=== PATIENT | female | born 1970 | race Two or more races ===

== ENCOUNTER 2024-01-12 07:38 | Inpatient (IN) | payer MEDICAID, SELFPAY ==
[2024-01-12] VITALS (11 sets, daily range): BP systolic 90–116; BP diastolic 55–67; PULSE 64–73; RESP 14–100; TEMP 36.1–36.8; O2SAT 97–100; BMI 30.2; BMI 32.1
--- NOTE | 2024-01-12 07:51 | PD.EDABDPN ---
ED Abdominal Pain RME/HPI General Chief Complaint: Abdominal Pain Stated complaint: VOMITING BLOOD SINCE AM Time seen by provider: 01/12/24 07:51 Arrival date/time: 01/12/24 07:38 Limitations: no limitations RME / HPI RME / HPI narrative: History of Present Illness (HPI): The patient presents with abdominal pain for the past two days. The patient has vomited five times, and the vomit contains blood. The patient has a history of upper gastrointestinal bleeding (UGIB). The mother reports seeing blood in the patient's stools as well. The mother brought the patient's clothes, which are stained with vomitus that is frankly bloody. The patient has a history of esophageal varices and has undergone banding of the varices in the past. Related Data Home Medications ?Medication ?Instructions ?Recorded ?Confirmed ergocalciferol (vitamin D2) 1,250 50,000 unit PO QWEEK 09/15/23 11/25/23 mcg (50,000 unit) capsule lidocaine HCl 2 % mucosal solution 5 ml PO 6 TIMES DAILY 09/15/23 11/25/23 methocarbamol 750 mg tablet 750 mg PO 2XD 09/15/23 11/25/23 tramadol 50 mg tablet 50 mg PO Q4HR 10/20/23 11/25/23 hydrocodone 5 mg-acetaminophen 325 1 tab PO Q4H PRN Pain (Scale Score 11/14/23 11/25/23 mg tablet 7-10) Previous Rx's ?Medication ?Instructions ?Recorded phenylephrine 0.25 %-pramoxine 1 1 applic MI BID #28 grams 09/19/23 %-glycerin-wh.petrolatum rectal cream (Hemorrhoidal Cream) furosemide 40 mg tablet 40 mg PO QAM #30 tabs 10/15/23 pantoprazole 40 mg tablet,delayed 40 mg PO QDAY #30 tabs 10/15/23 release foam bandage 5 X 5 (Biatain #10 ea 10/25/23 Adhesive Foam Dressing) lactulose 20 gram/30 mL oral 20 g (30 mL) PO TID #3,000 mL 10/25/23 solution hydrocortisone acetate 25 mg 25 mg MI QDAY #7 ea 11/02/23 rectal suppository (Anusol-HC) ondansetron 4 mg disintegrating 4 mg PO Q8H #14 tabs 12/21/23 tablet Allergies Allergy/AdvReac Type Severity Reaction Status Date / Time latex Allergy Severe Hives Verified 01/12/24 08:50 Review of Systems Review of Systems Systems Reviewed: All systems reviewed, normal except as documented ED Exam General Limitations: Present no limitations General appearance: Present alert and in no apparent distress Head Head exam: Present atraumatic Eye Eye exam: Present normal appearance ENT ENT exam: Present normal exam Neck Neck exam: Present normal inspection Chest Chest inspection: Present normal inspection Respiratory Respiratory exam: Present normal lung sounds bilaterally Cardiovascular Cardiovascular exam: Present regular rate and normal rhythm Abdominal Exam Abdominal exam: Present soft and normal bowel sounds Abdominal tenderness: Present epigastrium and mild Rectal Exam Rectal exam: Present deferred Back Exam Back exam: Present normal inspection Neurological Exam Neurological exam: Present CN II-XII intact Skin Skin exam: Present warm and dry Course Quality Measures none Orders Category Date Time Status COVID-19 Screening Questionnaire NOW Care 01/12/24 11:[address] Screening NOW Care 01/12/24 07:56 Active Decision to Admit X1 Care 01/12/24 11:24 Active Insert IV STAT Care 01/12/24 07:54 Active Consult to Gastroenterology Stat Cons 01/12/24 11:[address] abdomen w con Stat Exams 01/12/24 07:56 Taken Ammonia Stat Lab 01/12/24 08:08 Completed CBC Stat Lab 01/12/24 08:08 Results Comprehensive Metabolic Panel Stat Lab 01/12/24 08:08 Completed HCG,Qualitative Serum Stat Lab 01/12/24 08:08 Completed Lipase Stat Lab 01/12/24 08:08 Completed Magnesium Stat Lab 01/12/24 08:08 Completed Prothrombin Time with INR Stat Lab 01/12/24 08:08 Completed Troponin I Stat Lab 01/12/24 08:08 Completed Morphine Inj Med 01/12/24 07:56 Discontinued 5 mg IV X1 ONE Octreotide Acet Inj [SandoSTATIN Inj] Med 01/12/24 07:54 Discontinued 50 mcg IV X1 ONE Ondansetron Inj [Zofran Inj] Med 01/12/24 07:55 Discontinued 4 mg IV X1 ONE Pantoprazole Inj [Protonix Inj] Med 01/12/24 07:54 Discontinued 40 mg IVP X1 ONE Vital Signs Vital signs: Vital Signs Temperature 98.2 F 01/12/24 07:53 Pulse Rate 73 01/12/24 07:53 Respiratory Rate 14 01/12/24 07:53 Blood Pressure 116/67 01/12/24 07:53 Pulse Oximetry (%) 100 01/12/24 07:53 Oxygen Delivery Method Room Air 01/12/24 07:53 Abdominal Pain MDM MDM Narrative MDM Narrative:: Patient had no episodes of emesis here in the emergency department. Her hemoglobin is 11.4. Medically and clinically is stable. Does not appear to be actively bleeding at this time. She was discussed with Dr. Culp, who recommends admission as well as octreotide drip. Patient will have endoscopic evaluation tomorrow. The patient was also discussed with the hospitalist team who will admit the patient Patient data External records reviewed:: [facility] previous records Clinical information provided by:: patient and family Social determinants that could affect healthcare access:: none Patient has the following chronic illnesses:: Portal hypertension and esophageal varices How is presenting disease/condition affected by chronic disease/condition?: caused by Evaluation data The following diagnostics were reviewed and interpreted by me:: lab results and radiology exam(s) Lab and/or radiology exams considered but not ordered:: See above Interpretation Summary: See above Medications / Prescriptions Medications or Prescriptions considered but not ordered:: Not applicable Medication administrations:: Medication Administration History Discontinued Medications Morphine Sulfate (Morphine Sulf Inj 10 Mg/Ml Vial) 5 mg IV X1 ONE Stop: 01/12/24 07:57 Last Admin: 01/12/24 08:28 Dose: 5 mg Documented By: EF Octreotide Acetate (Octreotide Acet Inj 50 Mcg/Ml Vial) 50 mcg IV X1 ONE Stop: 01/12/24 07:55 Last Admin: 01/12/24 08:28 Dose: 50 mcg Documented By: EF Ondansetron HCl (Ondansetron Inj 2 Mg/Ml Inj 2 Ml) 4 mg IV X1 ONE Stop: 01/12/24 07:56 Last Admin: 01/12/24 08:28 Dose: 4 mg Documented By: EF Pantoprazole Sodium (Pantoprazole Inj 40 Mg Vial) 40 mg IVP X1 ONE Stop: 01/12/24 07:55 Last Admin: 01/12/24 08:55 Dose: 40 mg Documented By: EF As noted Consultations Consultation(s) initiated? (list below): Yes Consultation #1 (Physician, Specialty, Details): Dr. Culp and hospitalist Diagnosis Differential diagnosis abdominal pain: abdominal pain and gastroenteritis Most likely diagnosis given after review of the tests above:: Upper GI bleed Admission Indicated Admission indicated?: indicated Admission Request Was there a request for admission?: Yes Admission Attestation Admission request attestation: Discussed case with [] from Hospitalist service regarding admission. Discussed patients ED course, exam findings, labs, and radiology results. The Hospitalist [agrees,declines] to accept the patient for admission. Disposition Plan Disposition Plan: Admit Critical Care Time Critical Care Time Critical Care Time: Yes Total Critical Care Time (min.): 35 Attestation: Patient is stable for admission Discharge Plan Plan Patient Disposition: Admit Acute Care w/in Hospital Patient condition on transfer: Stable Prescriptions/Referrals Prescriptions/Med Rec: No Action furosemide 40 mg tablet 40 mg PO QAM Qty: 30 0RF pantoprazole 40 mg tablet,delayed release (DR/EC) 40 mg PO QDAY Qty: 30 0RF ondansetron 4 mg tablet,disintegrating 4 mg PO Q8H Qty: 14 0RF methocarbamol 750 mg tablet 750 mg PO 2XD Patient Comments: TAKE 1 TABLET BY MOUTH TWICE A DAY lidocaine HCl 2 % solution 5 ml PO 6 TIMES DAILY Patient Comments: SWISH AND SPIT OUT 5ML BY MOUTH 6 TIMES A DAY NEEDED ergocalciferol (vitamin D2) 1,250 mcg (50,000 unit) capsule 50,000 unit PO QWEEK Patient Comments: TAKE 1 CAPSULE BY MOUTH ONCE A WEEK Hemorrhoidal Cream 0.25-1 % cream 1 applic MI BID Qty: 28 0RF tramadol 50 mg tablet 50 mg PO Q4HR Patient Comments: TAKE 1 TABLET BY MOUTH EVERY 4 HOURS NEEDED FOR MODERATE PAIN 4-6 FOR 5 DAYS lactulose 20 gram/30 mL solution 20 g PO TID Qty: 3000 0RF (DME) Biatain Adhesive Foam Dressing 5 X 5 bandage See Rx Instructions .Route Qty: 10 0RF Rx Instructions: As directed hydrocortisone acetate [Anusol-HC] 25 mg suppository 25 mg MI QDAY Qty: 7 0RF Rx Instructions: take suppository at night hydrocodone-acetaminophen 5-325 mg Tablet 1 tab PO Q4H PRN (Reason: Pain (Scale Score 7-10)) Referrals: Stacy Graff FNP [Primary Care Provider] - In 1 week Problem List Clinical Impression: Acute upper GI bleed Patient/Caregiver Discharge Instructions Print Language: Algerian Stand Alone Forms: [facility] Award Info., Patient Portal Info Letter
--- NOTE | 2024-01-12 07:56 | XR_ITS ---
Examination: CT abdomen with intravenous contrast. Coronal 2-D reconstructions. Sagittal 2-D reconstructions. Date and time of exam:January 12, 2024 0857 hrs. Comparison December 07, 2023 Indications: Liver failure diagnosis with generalized abdominal pain today CTDI: vol (mGy): 9.39 DLP: (mGycm): 342 Technique: Axial images of the abdomen have been obtained, 3 mm slice thickness, 60 cc [id number] 2-D sagittal coronal reconstructions Low dose protocols were performed. One or more of the following dose reduction techniques were used; automated exposure control, adjustment of the mA and/or KV according to patient size, use of iterative reconstruction technique. Findings: Cirrhosis, liver nodular in contour Esophageal varices Prominent splenomegaly Portosystemic collateral vessels medial to the spleen No gallstones Tiny bilateral renal calculi Posterior right renal cyst Minimal right hydronephrosis, 7 mm calculus in the right renal pelvis No bowel obstruction Small fat-containing umbilical hernia Impression: Cirrhosis No bowel obstruction or free air Esophageal varices 7 mm calculus in the right renal pelvis
[2024-01-12 08:17] LABS: Basophils # (Auto) 0.1 Thou/mm3 (0.0-0.2); Basophils % (Auto) 1 % (0-2.5); Eosinophils # (Auto) 0.2 Thou/mm3 (0.0-0.5); Eosinophils % (Auto) 4 % (0-10); Hematocrit 34.4 % (36.0-46.0); Hemoglobin 11.5 g/dL (12.0-16.0); Immature Granulocytes % (Auto) 0 % (0-0); Immature Granulocytes Auto 0.02 Thou/mm3 (0.00-0.00); Lymphocytes # (Auto) 1.2 Thou/mm3 (1.0-4.8); Lymphocytes % (Auto) 21 % (10-50); Mean Corpuscular HGB Conc 33.4 g/dl (31.0-37.0); Mean Corpuscular Hemoglobin 32.7 pg (25.0-35.0); Mean Corpuscular Volume 98 fL (80-100); Monocytes # (Auto) 0.5 Thou/mm3 (0.0-0.8); Monocytes % (Auto) 9 % (0-12); Neutrophils # (Auto) 3.9 Thou/mm3 (1.8-7.7); Neutrophils % (Auto) 66 % (37-80); Nucleated Red Blood Cell % 0 /100 WBC (0); RDW Standard Deviation 84.1 fL (36.4-46.3); Red Blood Count 3.52 Miln/mm3 (4.00-5.20); White Blood Count 5.9 Thou/mm3 (3.6-11.0)
[2024-01-12 08:22] LABS: Platelet Count 65 Thou/mm3 (140-440)
[2024-01-12] MEDS: OCTREOTIDE ACET INJ 50 mCg/ML VIAL IV (08:28)
[2024-01-12] MEDS: MORPHINE SULF INJ 10 MG/ML VIAL 5 MG IV (08:28)
[2024-01-12] MEDS: ONDANSETRON INJ 2 MG/ML INJ 2 ML 4 MG IV (08:28)
[2024-01-12 08:34] LABS: HCG,Qualitative Serum Negative
[2024-01-12 08:40] LABS: Ammonia 120 uMol/L (11-32)
[2024-01-12 08:55] LABS: Alanine Aminotransferase 30 U/L (10-49); Albumin, Serum 3.3 gm/dL (3.5-5.0); Albumin/Globulin Ratio 0.8 (1.2-2.2); Alkaline Phosphatase 277 U/L (46-116); Anion Gap 6 (7-16); Aspartate Amino Transferase 57 U/L (0-34); BUN/Creatinine Ratio 18 Ratio (12-20); Bilirubin,Total 5.2 mg/dL (0.3-1.2); Blood Urea Nitrogen 24 mg/dL (9-23); Calcium 9.2 mg/dL (8.3-10.6); Calcium (Corrected) 9.8 mg/dL (8.5-10.1); Chloride 106 mMol/L (98-107); Creatinine (Component) 1.3 mg/dL (0.6-1.3); Estimated Creatinine Clearance 42.5 mL/min (>60); Globulin 4.2 gm/dL (2.3-3.5); Glucose 115 mg/dL (74-106); Lipase 47 U/L (12-53); Magnesium 2.5 mg/dL (1.6-2.6); Osmolality,Calculated 282 (275-295); Potassium 4.7 mMol/L (3.4-5.1); Sodium 139 mMol/L (136-145); Total Protein 7.5 gm/dL (5.7-8.2); Troponin I < 0.020 ng/mL (0.0-0.045); eGFR 49 See Note
[2024-01-12] MEDS: PANTOPRAZOLE INJ 40 MG VIAL IVP ×2 (08:55→22:40)
[2024-01-12 09:14] LABS: INR 1.5 (0.9-1.3); Prothrombin Time 16.2 Seconds (9.0-12.2)
--- NOTE | 2024-01-12 12:00 | PC.CC ---
Patient is a 53 year-old female BIB-Family for Vomiting Blood. ARAMWOfe made [id number] contact with patient. ASW introduced self, role, and reason for visit. Patient appeared alert and oriented to self, location, and situation. At bedside was patient's mother Gemma Knight whom patient provided consent to remain in room during initial assessment. Patient was pleasant and engaged in initial assessment. Patient confirmed information on demographics and reports her mother Gemma lives with her. Patient reports since being discharged in September 2023, she has not been able to ambulate independently or complete her own ADLs. Patient needs assistance to shower and uses a bedside commode. Patient has a wheelchair and walker but does not use it as she is non-ambulatory. Patient's primary care provider is Stacy Graff and uses [employer] for prescription medication. Patient reports her medical decision maker is her mother Gemma Knight. Upon discharge the patient reports she plans to return home as she is not open to SNF placement. rehabilitation services counselor to follow up with any discharge needs.
--- NOTE | 2024-01-12 12:18 | PD.IMCONS ---
HPI Data of Consult Primary Care Provider: LETI Catherine Consult Narrative Reason for consult: Hematemesis, melena. History of present illness: 53 years of female presented to the emergency room with altered mental status as well as hematemesis and melanotic stools She does have a history of alcohol induced liver disease but has not drank almost for 6 months She does have a history of band location of the esophageal varices and also history of mucosal bleeding from the gastric mucosa in the setting of hypertensive portal gastropathy No history is obtained from her as she is confused and her ammonia level is 120 Presenting Total bilirubin is 5.2 AST ALT 57 and 34 and alk phos of 21 platelets count is 65,000 cc:: cc: Review of Systems Review of Systems ROS Unobtainable: unobtainable due to medical condition Past Medical History Surgical History OTHER SURGICAL HX: Mental: Persistent physical Meds Home Medications and Allergies Home Medications ?Medication ?Instructions ?Recorded ?Confirmed ?Type ergocalciferol (vitamin D2) 1,250 50,000 unit PO QWEEK 09/15/23 01/12/24 History mcg (50,000 unit) capsule lidocaine HCl 2 % mucosal solution 5 ml PO 6 TIMES DAILY 09/15/23 01/12/24 History methocarbamol 750 mg tablet 750 mg PO BID 09/15/23 01/12/24 History tramadol 50 mg tablet 50 mg PO Q4HR 10/20/23 01/12/24 History hydrocodone 5 mg-acetaminophen 325 1 tab PO Q4H PRN Pain (Scale Score 11/14/23 01/12/24 History mg tablet 7-10) furosemide 40 mg tablet 40 mg PO QAM 01/12/24 01/12/24 History metformin 500 mg tablet 500 mg PO QAM 01/12/24 01/12/24 History midodrine 10 mg tablet 10 mg PO TID 01/12/24 01/12/24 History rifaximin 550 mg tablet (Xifaxan) 550 mg PO BID 01/12/24 01/12/24 History spironolactone 25 mg tablet 100 mg PO QDAY 01/12/24 01/12/24 History Allergies Allergy/AdvReac Type Severity Reaction Status Date / Time latex Allergy Severe Hives Verified 01/13/24 16:46 Exam Vital Signs Temp Pulse Resp BP Pulse Ox O2 Del Method 98.2 F 64 18 96/58 L 100 Room Air 01/12/24 11:00 01/12/24 11:00 01/12/24 11:00 01/12/24 11:00 01/12/24 11:00 01/12/24 11:00 Constitutional Comments: Confused and has altered mental status Routine Respiratory Exam Comments: Normal to auscultation Routine Abdominal Exam Comments: Soft nontender Results Labs 01/13/24 04:54 01/13/24 04:54 Labs: Short CBC 01/12/24 Range/Units 08:08 WBC 5.9 (3.6-11.0) Thou/mm3 Hgb 11.5 L (12.0-16.0) g/dL Hct 34.4 L (36.0-46.0) % Plt Count 65 L (140-440) Thou/mm3 BMP 01/12/24 08:08 Sodium 139 Potassium 4.7 Chloride 106 Carbon Dioxide 27.0 BUN 24 H Creatinine 1.3 Glucose 115 H Calcium 9.2 Cardiac Enzymes 01/12/24 Range/Units 08:08 Troponin I < 0.020 (0.0-0.045) ng/mL Liver Function 01/12/24 Range/Units 08:08 Total Bilirubin 5.2 H (0.3-1.2) mg/dL AST 57 H (0-34) U/L ALT 30 (10-49) U/L Alkaline Phosphatase 277 H (46-116) U/L Albumin 3.3 L (3.5-5.0) gm/dL Assessment and Plan Additional Assessment & Plan Additional Plan: # Acute upper GI bleed could be secondary to esophageal varices or hypertensive portal gastropathy leading to mucosal bleeding # Thrombocytopenia # Coagulopathy complicating the picture # Hepatic/metabolic encephalopathy Plan Octreotide 50 mcg IV push and 50 mcg/h infusion IV Protonix Serial CBC Lactulose and rifaximin Consent will be obtained from the mother for fiberoptic esophagogastroduodenoscopy with possible therapeutic intervention under intravenous moderate sedation Continue current management Prognosis guarded Thank you very much for the opportunity to participate in the care of this patient
[2024-01-12 12:44] LABS: Slide Review Platelets confirmed
[2024-01-12] MEDS: MIDODRINE 5 MG TABLET PO (13:04)
[2024-01-12] MEDS: LACTULOSE SYRUP 20 GM/30 ML UDC PO ×2 (13:04→22:40)
[2024-01-12] MEDS: OCTREOTIDE ACET INJ 1,000 MCG in SODIUM CHLORIDE 0.9% 100 ML 5.1 MCG IV (13:14)
--- NOTE | 2024-01-12 13:35 | PC.NURSE ---
dr em made aware of bp 85/53 and new orders received of ns bolus 1 liter
[2024-01-12] MEDS: SODIUM CHLORIDE 0.9% 1000 ML 1,000 ML 999 ML IV (14:04)
--- NOTE | 2024-01-12 16:43 | ESHP_ITS ---
Documentation for date of: 01/12/24 HPI History of Present Illness Chief complaint: blood in vomit History of present illness: Elzbieta Knight is 53 yr female with PMH of decompensated liver cirrhosis, type 2 diabetes, Grade III esophageal varices s/p band ligation, hemorrhoids presenting to ED today after having multiple episodes of hematemesis since last night. Last admission on 12/21/2023 she presented to ED with similar symptoms and Dr. Culp was consulted. Nuclear medicine gastric scan was negative for any bleeding and underwent endoscopy showing grade 3 esophageal varices and band ligation. Same symptoms have now restarted and patient is also complaining of weakness, fatigue, slurred speech, dark-colored stool, decreased appetite. There is history of alcohol use disorder with last drink being over 6 months. Patient is compliant with medications. In the ED, vitals significant for soft blood pressure 99/56, pulse 68, 97% O2 on room air. Labs revealed WBC 5.9, anemia 11.5, thrombocytopenia 65, sodium 139, potassium 4.7, creatinine 1.3, elevated PT 16.2, elevated INR 1.5, hyperbilirubinemia 5.2, hyperammonemia 130. CT abdomen pelvis significant for cirrhosis, esophageal varices minimal right-sided hydronephrosis with a 7 mm stone. In ED patient was started on octreotide drip, Protonix 40 mg x 1, morphine 5 mg x 1, Zofran. Dr. Culp was consulted and patient admitted for endoscopy procedure for upper GI bleed. PMH: as noted above PSH: Appendectomy, 2 C-sections, 2 laparoscopic procedures for endometriosis, s/p bland ligation Social: denies smoking or drugs, last drink was few months ago. Patient used to drink 1 bottle of EtoH in 2 days. Lives at home with mother. Allergies:?NKDA Review of Systems Review of Systems Systems Reviewed: All systems reviewed, normal except as documented Exam Vital Signs Temp Pulse Resp BP Pulse Ox O2 Del Method 98.0 F 68 16 99/56 L 97 Room Air 01/12/24 13:00 01/12/24 14:03 01/12/24 14:03 01/12/24 14:03 01/12/24 14:03 01/12/24 14:03 Narrative Exam General: Alert and oriented x3. No acute distress, cooperative, slurred speech Eyes: Pupils are equal and reactive to light bilaterally, slceral icterus HEENT: Atraumatic, normocephalic. No JVD noted. Mucosa dry. Cardiovascular: Normal S1 and S2. Regular rate and rhythm. No pitting edema Respiratory: Lungs are clear to auscultation bilaterally. No wheezing or crackles heard. Abdomen: Soft, nontender, not distended, normal bowel sounds. Skin: Warm to touch, dry, no rashes noted, scatterd petechiae on LE Musculoskeletal: No gross injuries. Able to move all 4 extremities. Neuro: Alert and oriented x3. No focal neuro deficits. Psych: Normal affect and mood Results: Labs 01/13/24 04:54 01/13/24 04:54 Labs: Short CBC 01/12/24 Range/Units 08:08 WBC 5.9 (3.6-11.0) Thou/mm3 Hgb 11.5 L (12.0-16.0) g/dL Hct 34.4 L (36.0-46.0) % Plt Count 65 L (140-440) Thou/mm3 BMP 01/12/24 08:08 Sodium 139 Potassium 4.7 Chloride 106 Carbon Dioxide 27.0 BUN 24 H Creatinine 1.3 Glucose 115 H Calcium 9.2 Cardiac Enzymes 01/12/24 Range/Units 08:08 Troponin I < 0.020 (0.0-0.045) ng/mL Liver Function 01/12/24 Range/Units 08:08 Total Bilirubin 5.2 H (0.3-1.2) mg/dL AST 57 H (0-34) U/L ALT 30 (10-49) U/L Alkaline Phosphatase 277 H (46-116) U/L Albumin 3.3 L (3.5-5.0) gm/dL Quality Measures Quality Measures none Medications Home Medications and Allergies Home Medications ?Medication ?Instructions ?Recorded ?Confirmed ?Type ergocalciferol (vitamin D2) 1,250 50,000 unit PO QWEEK 09/15/23 01/12/24 History mcg (50,000 unit) capsule lidocaine HCl 2 % mucosal solution 5 ml PO 6 TIMES DAILY 09/15/23 01/12/24 History methocarbamol 750 mg tablet 750 mg PO BID 09/15/23 01/12/24 History tramadol 50 mg tablet 50 mg PO Q4HR 10/20/23 01/12/24 History hydrocodone 5 mg-acetaminophen 325 1 tab PO Q4H PRN Pain (Scale Score 11/14/23 01/12/24 History mg tablet 7-10) furosemide 40 mg tablet 40 mg PO QAM 01/12/24 01/12/24 History metformin 500 mg tablet 500 mg PO QAM 01/12/24 01/12/24 History midodrine 10 mg tablet 10 mg PO TID 01/12/24 01/12/24 History rifaximin 550 mg tablet (Xifaxan) 550 mg PO BID 01/12/24 01/12/24 History spironolactone 25 mg tablet 100 mg PO QDAY 01/12/24 01/12/24 History Allergies Allergy/AdvReac Type Severity Reaction Status Date / Time latex Allergy Severe Hives Verified 01/13/24 16:46 Visit Medications Octreotide Acetate 1,000 mcg/ (Sodium Chloride) 102 mls @ 5.1 mls/hr IV .Q20H CELINA; Protocol Stop: 02/12/24 08:59 Ceftriaxone Sodium/Dextrose (Rocephin/D5w 1gm Iv Premix) 50 mls @ 100 mls/hr IV Q12HR CELINA Stop: 01/19/24 16:41 Lactulose (Lactulose Syrup 20 Gm/30 Ml Udc) 20 gm PO TID CELINA; Protocol Stop: 02/11/24 13:59 Last Admin: 01/12/24 14:05 Dose: Not Given Midodrine (Midodrine 5 Mg Tablet) 5 mg PO TID CELINA Stop: 02/11/24 12:44 Last Admin: 01/12/24 14:05 Dose: Not Given Ondansetron HCl (Ondansetron Inj 2 Mg/Ml Inj 2 Ml) 4 mg IV Q6H PRN; Protocol PRN Reason: NAUSEA OR VOMITING Stop: 02/11/24 12:34 Pantoprazole Sodium (Pantoprazole Inj 40 Mg Vial) 40 mg IVP BID [facility] Stop: 02/11/24 20:59 Discontinued Medications Sodium Chloride (Ns) 1,000 mls @ 75 mls/hr IV .[id number] CELINA Stop: 01/13/24 02:04 Octreotide Acetate 1,000 mcg/ (Sodium Chloride) 102 mls @ 5.1 mls/hr IV .Q20H CELINA; Protocol Stop: 01/13/24 08:49 Octreotide Acetate 1,000 mcg/ (Sodium Chloride) 102 mls @ 5.1 mls/hr IV .Q20H ONE; Protocol Stop: 01/13/24 08:44 Last Admin: 01/12/24 13:14 Dose: 50 mcg/hr, 5.1 mls/hr Sodium Chloride (Ns) 1,000 mls @ 999 mls/hr IV .Q1H1M ONE Stop: 01/12/24 14:57 Last Admin: 01/12/24 14:04 Dose: 999 mls/hr Lactulose (Lactulose Syrup 20 Gm/30 Ml Udc) 20 gm PO BID CELINA; Protocol Stop: 02/11/24 12:59 Last Admin: 01/12/24 13:04 Dose: 20 gm Morphine Sulfate (Morphine Sulf Inj 10 Mg/Ml Vial) 5 mg IV X1 ONE Stop: 01/12/24 07:57 Last Admin: 01/12/24 08:28 Dose: 5 mg Octreotide Acetate (Octreotide Acet Inj 50 Mcg/Ml Vial) 50 mcg IV X1 ONE Stop: 01/12/24 07:55 Last Admin: 01/12/24 08:28 Dose: 50 mcg Ondansetron HCl (Ondansetron Inj 2 Mg/Ml Inj 2 Ml) 4 mg IV X1 ONE Stop: 01/12/24 07:56 Last Admin: 01/12/24 08:28 Dose: 4 mg Pantoprazole Sodium (Pantoprazole Inj 40 Mg Vial) 40 mg IVP X1 ONE Stop: 01/12/24 07:55 Last Admin: 01/12/24 08:55 Dose: 40 mg Assessment & Plan Plan Elzbieta Knigth is 53 yr female with PMH of decompensated liver cirrhosis, type 2 diabetes, Grade III esophageal varices s/p band ligation, hemorrhoids presenting to ED today after having multiple episodes of hematemesis since last night. Patient is also complaining of weakness, fatigue, slurred speech, dark-colored stool, decreased appetite. There is history of alcohol use disorder with last drink being over 6 months. Patient is compliant with medications. Dr. Culp was consulted and patient admitted for endoscopy procedure for upper GI bleed. #Acute blood loss anemia most likely 2/2 #Upper GI bleed Patient is presenting with multiple episodes of hematemesis since last night. Has history of grade 3 esophageal varices status band ligation. Endorses blood in the stool. Previous admission patient required 3 units PRBC transfusion. In ED--Hb 11.5, hematocrit 34%, MCV 98. Dr. Culp was consulted and patient started on octreotide drip, Protonix 40 twice daily, morphine 5 mg x 1, Zofran. ? N.p.o. ? Endoscopy tomorrow ? Continue octreotide drip ? Continue IV Protonix 40 mg twice daily #History of decompensated liver cirrhosis #Synthetic liver dysfunction #Hyperammonemia Patient has a history of alcohol abuse disorder last drink being over 6 months ago. Patient used to drink about 1 L vodka every 2 days. Currently alert and oriented x 3 however does have slurred speech with slow, incongruent thought process. Thrombocytopenia 65, PT elevated 16.2, INR elevated 1.5, hyperbilirubinemia 5.2, ammonia 130, albumin 3.3 Child-[place] Socre: 9 (indication for liver transplant) MELD score: 20 points with 19.6% 3 mo mortality risk ?1 g ceftriaxone SBP prophylaxis ? Continue octreotide drip ?Lactulose 20 g p.o. 3 times daily -rifaximin 550 PO BID #History hypotension ? Resume home medication 10 mg midodrine p.o. 3 times daily #[id number] type 2 diabetes, adequately controlled On admission initial glucose 115. Last A1c 5.1 on 11/17/23. Patient takes metformin 500mg PO daily for diabetes at home. -Held home medications -Bedside blood glucose checks AC -Insulin lispro sliding scale -Carb consistent low diet -Diabetes education Health maintenance: Dispo: med surg, endoscopy tomorrow DVT prophylaxis: Subcu heparin CODE STATUS: Full code Diet: NPO The patient's management plan was discussed with my attending physician Dr. Glover and senior Dr. Patton. Jessica Melendez, PGY-1 Attending Provider Attestation/Addendum I have discussed and was present for the essential components of the history, physical examination, diagnosis, and treatment plan with the resident. I agree with the patient's care as documented by the resident and amended herein by me. Dickson Glover DO. Patient seen and evaluated this AM. Gastroenterology consulted, patient started on ceftriaxone, octreotide drip and Protonix 40 mg twice daily. EGD planned for upper GI bleed. Patient started on lactulose and rifaximin, other home meds will be reconciled. Will continue to monitor closely while she is here. Although this document has been carefully reviewed, there may still be some phonetic and other typographical errors. These errors are purely grammatical due to imperfections in the software program and should not be construed in any way to compromise the substance of the patient's medical care during this visit.
[2024-01-12] MEDS: cefTRIAXone/D5w 1gm IV premix 50 ML IV (17:15)
--- NOTE | 2024-01-12 20:11 | PC.NURSE ---
called e.r. 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 will check pt's room when pt was in e.r. and will call back rn.
[2024-01-12] MEDS: rifaximin 550 MG TABLET PO (22:39)
[2024-01-12] MEDS: MIDODRINE 5 MG TABLET 10 MG PO (22:40)
[2024-01-13] VITALS (21 sets, daily range): BP systolic 100–136; BP diastolic 52–97; PULSE 50–68; RESP 10–95; TEMP 36.1–36.7; O2SAT 97–100
[2024-01-13] MEDS: MIDODRINE 5 MG TABLET 10 MG PO ×3 (06:05→21:27)
[2024-01-13 06:06] LABS: Basophils % (Auto) 1 % (0-2.5); Eosinophils # (Auto) 0.2 Thou/mm3 (0.0-0.5); Eosinophils % (Auto) 4 % (0-10); Hematocrit 28.2 % (36.0-46.0); Hemoglobin 9.6 g/dL (12.0-16.0); Immature Granulocytes % (Auto) 0 % (0-0); Immature Granulocytes Auto 0.01 Thou/mm3 (0.00-0.00); Lymphocytes # (Auto) 1.5 Thou/mm3 (1.0-4.8); Lymphocytes % (Auto) 32 % (10-50); Mean Corpuscular Hemoglobin 33.1 pg (25.0-35.0); Mean Corpuscular Volume 97 fL (80-100); Monocytes # (Auto) 0.3 Thou/mm3 (0.0-0.8); Monocytes % (Auto) 7 % (0-12); Neutrophils # (Auto) 2.6 Thou/mm3 (1.8-7.7); Neutrophils % (Auto) 56 % (37-80); Nucleated Red Blood Cell % 0 /100 WBC (0); RDW Standard Deviation 82.9 fL (36.4-46.3); White Blood Count 4.6 Thou/mm3 (3.6-11.0)
[2024-01-13] MEDS: LACTULOSE SYRUP 20 GM/30 ML UDC PO (06:06)
[2024-01-13 06:29] LABS: Platelet Count 44 Thou/mm3 (140-440)
[2024-01-13 06:44] LABS: Alanine Aminotransferase 21 U/L (10-49); Albumin, Serum 2.9 gm/dL (3.5-5.0); Albumin/Globulin Ratio 0.8 (1.2-2.2); Alkaline Phosphatase 123 U/L (46-116); Anion Gap 9 (7-16); Aspartate Amino Transferase 53 U/L (0-34); BUN/Creatinine Ratio 23 Ratio (12-20); Bilirubin,Total 6.7 mg/dL (0.3-1.2); Blood Urea Nitrogen 21 mg/dL (9-23); Calcium (Corrected) 9.9 mg/dL (8.5-10.1); Carbon Dioxide 20.6 mMol/L (20.0-31.0); Chloride 110 mMol/L (98-107); Creatinine (Component) 0.9 mg/dL (0.6-1.3); Estimated Creatinine Clearance 63.2 mL/min (>60); Globulin 3.7 gm/dL (2.3-3.5); Glucose 108 mg/dL (74-106); Magnesium 2.3 mg/dL (1.6-2.6); Osmolality,Calculated 283 (275-295); Phosphorous 4.4 mg/dL (2.4-5.1); Potassium 4.4 mMol/L (3.4-5.1); Sodium 140 mMol/L (136-145); Total Protein 6.6 gm/dL (5.7-8.2); eGFR > 60 See Note
[2024-01-13] MEDS: rifaximin 550 MG TABLET PO ×2 (08:20→20:33)
[2024-01-13] MEDS: PANTOPRAZOLE INJ 40 MG VIAL IVP ×2 (08:22→20:31)
[2024-01-13] MEDS: cefTRIAXone/D5w 1gm IV premix 50 ML IV ×2 (08:28→20:27)
[2024-01-13] MEDS: ACETAMINOPHEN 325 MG TABLET 650 MG PO (09:02)
[2024-01-13] MEDS: OCTREOTIDE ACET INJ 1,000 MCG in SODIUM CHLORIDE 0.9% 100 ML 5.1 MCG IV (09:03)
[2024-01-13 09:26] LABS: Slide Review Platelets confirmed
--- NOTE | 2024-01-13 15:26 | PD.RESPRO ---
Documentation for date of: 01/13/24 Subjective Subjective Interval history: Patient was seen and examined at bedside. No acute events overnight. Patient has no complaints of hematemesis, does endorse having bright red blood per rectum and bowel movement today., And dysuria. On physical exam, no ascites, no lower extremity edema, improvement in slurred speech. Vitals unremarkable. Labs significant for downtrending hemoglobin from 11-9.6 today, platelets downtrending to 44, bilirubin up trended 6.7. Creatinine stable 0.9. Dr. Culp was consulted and endoscopy is pending. Increase lactulose to 40 3 times daily to titrate loose stools.--She sees liver specialist and patient is set up for possible liver transplant in February of next year. Start patient on tamsulosin 0.4 mg daily due to right sided 7 mm renal calculi. Patient should follow-up outpatient. No further complaints at this time. Review of systems otherwise negative except what is mentioned above. Exam Vital Signs Temp Pulse Resp BP Pulse Ox O2 Del Method 97.4 F 54 L 17 101/52 L 97 Room Air 01/13/24 12:00 01/13/24 15:10 01/13/24 12:00 01/13/24 15:10 01/13/24 12:00 01/13/24 12:00 Narrative Exam General: Alert and oriented x3. No acute distress, cooperative, slurred speech Eyes: Pupils are equal and reactive to light bilaterally, slceral icterus HEENT: Atraumatic, normocephalic. No JVD noted. Mucosa dry. Cardiovascular: Normal S1 and S2. Regular rate and rhythm. No pitting edema Respiratory: Lungs are clear to auscultation bilaterally. No wheezing or crackles heard. Abdomen: Soft, nontender, not distended, normal bowel sounds. Skin: Warm to touch, dry, no rashes noted, scatterd petechiae on LE Musculoskeletal: No gross injuries. Able to move all 4 extremities. Neuro: Alert and oriented x3. No focal neuro deficits. Psych: Normal affect and mood Objective Labs 01/14/24 05:11 01/14/24 05:11 Labs: Laboratory Results - last 24 hr 01/13/24 04:54 WBC 4.6 RBC 2.90 L Hgb 9.6 L Hct 28.2 L MCV 97 MCH 33.1 MCHC 34.0 RDW Std Deviation 82.9 H Plt Count 44 L D Neut % (Auto) 56 Lymph % (Auto) 32 [place] % (Auto) 7 Eos % (Auto) 4 Baso % (Auto) 1 Neut # (Auto) 2.6 Lymph # (Auto) 1.5 [place] # (Auto) 0.3 Eos # (Auto) 0.2 Baso # (Auto) 0.0 Immature Gran # (Auto) 0.01 H Absolute Nucleated RBC 0.00 Immature Gran % 0 Nucleated RBC % 0 Sodium 140 Potassium 4.4 Chloride 110 H Carbon Dioxide 20.6 Anion Gap 9 BUN 21 Creatinine 0.9 Estim Creat Clear Calc 63.2 eGFR > 60 BUN/Creatinine Ratio 23 H Glucose 108 H Calculated Osmolality 283 Calcium 9.0 Corrected Calcium 9.9 Phosphorus 4.4 Magnesium 2.3 Total Bilirubin 6.7 H D AST 53 H ALT 21 Alkaline Phosphatase 123 H D Total Protein 6.6 Albumin 2.9 L Globulin 3.7 H Albumin/Globulin Ratio 0.8 L Misc Test Result Platelets confirmed Quality Measures Quality Measures none Assessment & Plan Assessment Current Active Medications: Generic Name Dose Route Start Last Admin Trade Name Freq PRN Reason Stop Dose Admin Acetaminophen 650 mg 01/13/24 08:40 01/13/24 09:02 Acetaminophen 325 Mg Tablet PO 02/12/24 08:39 650 mg Q6HR PRN Administration Fever >100.3 or pain Dextrose 25 ml 01/12/24 17:45 Dextrose 50%-Water Inj 50 Ml Syringe IV 02/11/24 17:44 Q15MIN PRN BG 50-70 responsive npo pt Dextrose 50 ml 01/12/24 17:45 Dextrose 50%-Water Inj 50 Ml Syringe IV 02/11/24 17:44 Q15MIN PRN BG <50 OR BG <70 & pt unresponsive Glucagon 1 mg 01/12/24 17:45 Glucagon Inj 1 Mg Vial IM Q15MIN PRN BG <70, and no IV access Octreotide Acetate 1,000 mcg/ 102 mls @ 5.1 mls/hr 01/13/24 09:00 01/13/24 09:03 Sodium Chloride IV 02/12/24 08:59 50 mcg/hr .Q20H CELINA 5.1 mls/hr Administration Protocol 50 MCG/HR Ceftriaxone Sodium/Dextrose 50 mls @ 100 mls/hr 01/12/24 16:42 01/13/24 08:28 Rocephin/D5w 1gm Iv Premix IV 01/19/24 16:41 100 mls/hr Q12HR CELINA Administration Insulin Human Lispro 0 unit 01/13/24 07:30 01/13/24 11:29 Insulin Lispro (Admelog) 1 Unit/0.01 Ml Unit SC 02/12/24 07:29 Not Given AC CELINA Protocol Lactulose 40 gm 01/13/24 14:00 01/13/24 15:12 Lactulose Syrup 20 Gm/30 Ml Udc PO 02/12/24 13:59 Not Given TID CELINA Protocol Midodrine 10 mg 01/12/24 22:00 01/13/24 15:10 Midodrine 5 Mg Tablet PO 02/11/24 21:59 10 mg TID CELINA Administration Ondansetron HCl 4 mg 01/12/24 12:35 Ondansetron Inj 2 Mg/Ml Inj 2 Ml IV 02/11/24 12:34 Q6H PRN NAUSEA OR VOMITING Protocol Pantoprazole Sodium 40 mg 01/12/24 21:00 01/13/24 08:22 Pantoprazole Inj 40 Mg Vial IVP 02/11/24 20:59 40 mg BID CELINA Administration Rifaximin 550 mg 01/12/24 21:00 01/13/24 08:20 Rifaximin 550 Mg Tablet PO 01/19/24 20:59 550 mg BID CELINA Administration Tamsulosin HCl 0.4 mg 01/13/24 12:15 01/13/24 12:37 Tamsulosin Hcl 0.4 Mg Capsule PO 02/12/24 12:14 Not Given QDAY CELINA Plan Elzbieta Knight is 53 yr female with PMH of decompensated liver cirrhosis, type 2 diabetes, Grade III esophageal varices s/p band ligation, hemorrhoids presenting to ED today after having multiple episodes of hematemesis since last night. Patient is also complaining of weakness, fatigue, slurred speech, dark-colored stool, decreased appetite. There is history of alcohol use disorder with last drink being over 6 months. Patient is compliant with medications. Dr. Culp was consulted and patient admitted for endoscopy procedure for upper GI bleed. #Acute blood loss anemia most likely 2/2 #Upper GI bleed Patient is presenting with multiple episodes of hematemesis since last night. Has history of grade 3 esophageal varices status band ligation. Endorses blood in the stool. Previous admission patient required 3 units PRBC transfusion. In ED--Hb 11.5, hematocrit 34%, MCV 98. Dr. Culp was consulted and patient started on octreotide drip, Protonix 40 twice daily, morphine 5 mg x 1, Zofran. ? N.p.o. ? Endoscopy pending ? Continue octreotide drip ? Continue IV Protonix 40 mg twice daily #History of decompensated liver cirrhosis #Synthetic liver dysfunction #Hyperammonemia Patient has a history of alcohol abuse disorder last drink being over 6 months ago. Patient used to drink about 1 L vodka every 2 days. Currently alert and oriented x 3 however does have slurred speech with slow, incongruent thought process. Thrombocytopenia 65, PT elevated 16.2, INR elevated 1.5, hyperbilirubinemia 5.2, ammonia 130, albumin 3.3 Child-[place] Socre: 9 (indication for liver transplant) MELD score: 20 points with 19.6% 3 mo mortality risk ?1 g ceftriaxone SBP prophylaxis ? Continue octreotide drip ?Lactulose 20 g p.o. 3 times daily -rifaximin 550 PO BID -She sees liver specialist and patient is set up for possible liver transplant in February of next year. #History hypotension ? Resume home medication 10 mg midodrine p.o. 3 times daily #[id number] type 2 diabetes, adequately controlled On admission initial glucose 115. Last A1c 5.1 on 11/17/23. Patient takes metformin 500mg PO daily for diabetes at home. -Held home medications -Bedside blood glucose checks AC -Insulin lispro sliding scale -Carb consistent low diet -Diabetes education Health maintenance: Dispo: med surg, endoscopy pending DVT prophylaxis: Subcu heparin CODE STATUS: Full code Diet: NPO The patient's management plan was discussed with my attending physician Dr. Glover and senior Dr. Car. Jessica Melendez, PGY-1 Attending Provider Attestation/Addendum I have discussed and was present for the essential components of the history, physical examination, diagnosis, and treatment plan with the resident. I agree with the patient's care as documented by the resident and amended herein by me. Dickson Glover DO. Although this document has been carefully reviewed, there may still be some phonetic and other typographical errors. These errors are purely grammatical due to imperfections in the software program and should not be construed in any way to compromise the substance of the patient's medical care during this visit.
--- NOTE | 2024-01-13 16:24 | PC.NURSE ---
pt off floor for EGD [place] [facility]
--- NOTE | 2024-01-13 17:00 | SUR.PHASEI ---
3044 Patient arrived to recovery, report received from Cookie CERON
--- NOTE | 2024-01-13 17:50 | SUR.PHASEI ---
1746 Report given to Gemma CERON, patient meets discharge criteria from recovery, resting comfortably in [place], drowsy and able to arouse with prompting, vital signs stable, denies pain, patient drinking water; tolerating well, denies nausea 1750 Patient transported via [facility] to room 374 without incident, patient transferred from [place] to bed with two staff transfer, linen changed and brief changed for patient, patient resting comfortably in bed with call light in reach when this play writer left patients room
--- NOTE | 2024-01-13 17:59 | PC.NURSE ---
1700 insulin not given pt out of room for procedure
--- NOTE | 2024-01-13 18:09 | PC.NURSE ---
1800 pt came back from procedure
[2024-01-14] VITALS (11 sets, daily range): BP systolic 96–127; BP diastolic 55–68; PULSE 53–97; RESP 16–98; TEMP 36.2–36.9; O2SAT 96–100; BMI 32.0
[2024-01-14] MEDS: MIDODRINE 5 MG TABLET 10 MG PO ×3 (05:27→21:33)
[2024-01-14] MEDS: LACTULOSE SYRUP 20 GM/30 ML UDC 40 GM PO ×3 (05:27→21:33)
[2024-01-14] MEDS: ACETAMINOPHEN 325 MG TABLET 650 MG PO (05:41)
[2024-01-14 06:43] LABS: Basophils # (Auto) 0.1 Thou/mm3 (0.0-0.2); Basophils % (Auto) 1 % (0-2.5); Eosinophils # (Auto) 0.1 Thou/mm3 (0.0-0.5); Eosinophils % (Auto) 3 % (0-10); Hematocrit 31.3 % (36.0-46.0); Hemoglobin 10.4 g/dL (12.0-16.0); Immature Granulocytes % (Auto) 0 % (0-0); Immature Granulocytes Auto 0.01 Thou/mm3 (0.00-0.00); Lymphocytes # (Auto) 1.3 Thou/mm3 (1.0-4.8); Lymphocytes % (Auto) 33 % (10-50); Mean Corpuscular HGB Conc 33.2 g/dl (31.0-37.0); Mean Corpuscular Hemoglobin 33.7 pg (25.0-35.0); Mean Corpuscular Volume 101 fL (80-100); Monocytes # (Auto) 0.2 Thou/mm3 (0.0-0.8); Monocytes % (Auto) 6 % (0-12); Neutrophils # (Auto) 2.2 Thou/mm3 (1.8-7.7); Neutrophils % (Auto) 56 % (37-80); Nucleated Red Blood Cell % 0 /100 WBC (0); RDW Standard Deviation 82.1 fL (36.4-46.3); Red Blood Count 3.09 Miln/mm3 (4.00-5.20); White Blood Count 3.9 Thou/mm3 (3.6-11.0)
[2024-01-14 06:47] LABS: Alanine Aminotransferase 28 U/L (10-49); Albumin, Serum 3.3 gm/dL (3.5-5.0); Albumin/Globulin Ratio 0.8 (1.2-2.2); Alkaline Phosphatase 108 U/L (46-116); Anion Gap 8 (7-16); Aspartate Amino Transferase 60 U/L (0-34); BUN/Creatinine Ratio 18 Ratio (12-20); Bilirubin,Total 9.1 mg/dL (0.3-1.2); Blood Urea Nitrogen 14 mg/dL (9-23); Calcium 9.1 mg/dL (8.3-10.6); Calcium (Corrected) 9.7 mg/dL (8.5-10.1); Carbon Dioxide 23.3 mMol/L (20.0-31.0); Chloride 105 mMol/L (98-107); Creatinine (Component) 0.8 mg/dL (0.6-1.3); Estimated Creatinine Clearance 71.1 mL/min (>60); Globulin 4.4 gm/dL (2.3-3.5); Glucose 140 mg/dL (74-106); Osmolality,Calculated 274 (275-295); Potassium 4.3 mMol/L (3.4-5.1); Sodium 136 mMol/L (136-145); Total Protein 7.7 gm/dL (5.7-8.2); eGFR > 60 See Note
[2024-01-14 06:49] LABS: Platelet Count 62 Thou/mm3 (140-440)
[2024-01-14 07:20] LABS: Slide Review Platelets confirmed
[2024-01-14] MEDS: INSULIN LISPRO (AdmeLOG) 1 UNIT/0.01 ML UNIT SC ×3 (07:48→17:01)
[2024-01-14] MEDS: PANTOPRAZOLE INJ 40 MG VIAL IVP (09:02)
[2024-01-14] MEDS: rifaximin 550 MG TABLET PO ×2 (09:03→21:33)
[2024-01-14] MEDS: TAMSULOSIN HCL 0.4 MG CAPSULE PO (09:03)
[2024-01-14] MEDS: OCTREOTIDE ACET INJ 1,000 MCG in SODIUM CHLORIDE 0.9% 100 ML 5.1 MCG IV (10:06)
--- NOTE | 2024-01-14 14:19 | ESPR_ITS ---
Documentation for date of: 01/14/24 Subjective Subjective Interval history: Patient was seen and examined at bedside. No acute events overnight. Patient has no complaints of hematemesis, some dysuria. On physical exam, no ascites, no lower extremity edema, however she was very lethargic, slow to respond, confused. Endoscopy done yesterday 01/13 showed findings of grade 2 esophageal varices. Not large enough for band ligation. Also finding of gastritis and hypertensive portal gastropathy. Per Dr. Culp recommendations will continue octreotide drip for 3 more days. (total of 5) Vitals unremarkable. Labs significant for uptrending Hb 10.4 today, platelets uptrending to 62, bilirubin up trended 9.1. Creatinine stable 0.8. Increase lactulose to 40 3 times daily titrated to stools.--She sees liver specialist and patient is set up for possible liver transplant in February of next year. Continue patient on tamsulosin 0.4 mg daily due to right sided 7 mm renal calculi. Patient should follow-up outpatient. No further complaints at this time. Review of systems otherwise negative except what is mentioned above. Exam Vital Signs Temp Pulse Resp BP Pulse Ox O2 Del Method O2 Flow Rate 98.4 F 97 16 96/63 96 Room Air 3 01/14/24 11:46 01/14/24 13:49 01/14/24 11:46 01/14/24 13:49 01/14/24 11:46 01/14/24 11:46 01/14/24 04:00 Narrative Exam General: Alert and oriented x3. No acute distress, cooperative, slurred speech Eyes: Pupils are equal and reactive to light bilaterally, slceral icterus HEENT: Atraumatic, normocephalic. No JVD noted. Mucosa dry. Cardiovascular: Normal S1 and S2. Regular rate and rhythm. No pitting edema Respiratory: Lungs are clear to auscultation bilaterally. No wheezing or crackles heard. Abdomen: Soft, nontender, not distended, normal bowel sounds. Skin: Warm to touch, dry, no rashes noted, scatterd petechiae on LE Musculoskeletal: No gross injuries. Able to move all 4 extremities. Neuro: Alert and oriented x3. No focal neuro deficits. Psych: Normal affect and mood Objective Labs 01/14/24 05:11 01/14/24 05:11 Labs: Laboratory Results - last 24 hr 01/14/24 05:11 WBC 3.9 RBC 3.09 L Hgb 10.4 L Hct 31.3 L MCV 101 H MCH 33.7 MCHC 33.2 RDW Std Deviation 82.1 H Plt Count 62 L D Neut % (Auto) 56 Lymph % (Auto) 33 [place] % (Auto) 6 Eos % (Auto) 3 Baso % (Auto) 1 Neut # (Auto) 2.2 Lymph # (Auto) 1.3 [place] # (Auto) 0.2 Eos # (Auto) 0.1 Baso # (Auto) 0.1 Immature Gran # (Auto) 0.01 H Absolute Nucleated RBC 0.00 Immature Gran % 0 Nucleated RBC % 0 Sodium 136 Potassium 4.3 Chloride 105 Carbon Dioxide 23.3 Anion Gap 8 BUN 14 Creatinine 0.8 Estim Creat Clear Calc 71.1 eGFR > 60 BUN/Creatinine Ratio 18 Glucose 140 H Calculated Osmolality 274 L Calcium 9.1 Corrected Calcium 9.7 Total Bilirubin 9.1 H D AST 60 H ALT 28 Alkaline Phosphatase 108 Total Protein 7.7 Albumin 3.3 L Globulin 4.4 H Albumin/Globulin Ratio 0.8 L Misc Test Result Platelets confirmed Quality Measures Quality Measures none Assessment & Plan Assessment Current Active Medications: Generic Name Dose Route Start Last Admin Trade Name Freq PRN Reason Stop Dose Admin Acetaminophen 650 mg 01/13/24 08:40 01/14/24 05:41 Acetaminophen 325 Mg Tablet PO 02/12/24 08:39 650 mg Q6HR PRN Administration Fever >100.3 or pain Dextrose 25 ml 01/12/24 17:45 Dextrose 50%-Water Inj 50 Ml Syringe IV 02/11/24 17:44 Q15MIN PRN BG 50-70 responsive npo pt Dextrose 50 ml 01/12/24 17:45 Dextrose 50%-Water Inj 50 Ml Syringe IV 02/11/24 17:44 Q15MIN PRN BG <50 OR BG <70 & pt unresponsive Glucagon 1 mg 01/12/24 17:45 Glucagon Inj 1 Mg Vial IM Q15MIN PRN BG <70, and no IV access Octreotide Acetate 1,000 mcg/ 102 mls @ 5.1 mls/hr 01/13/24 09:00 01/14/24 10:06 Sodium Chloride IV 01/18/24 16:00 50 mcg/hr .Q20H CELINA 5.1 mls/hr Administration Protocol 50 MCG/HR Insulin Human Lispro 0 unit 01/13/24 07:30 01/14/24 12:13 Insulin Lispro (Admelog) 1 Unit/0.01 Ml Unit SC 02/12/24 07:29 2 unit AC CELINA Administration Protocol Lactulose 40 gm 01/13/24 14:00 01/14/24 13:45 Lactulose Syrup 20 Gm/30 Ml Udc PO 02/12/24 13:59 40 gm TID CELINA Administration Protocol Midodrine 10 mg 01/12/24 22:00 01/14/24 13:49 Midodrine 5 Mg Tablet PO 02/11/24 21:59 10 mg TID CELINA Administration Ondansetron HCl 4 mg 01/12/24 12:35 Ondansetron Inj 2 Mg/Ml Inj 2 Ml IV 02/11/24 12:34 Q6H PRN NAUSEA OR VOMITING Protocol Pantoprazole Sodium 40 mg 01/14/24 09:00 01/14/24 09:02 Pantoprazole Inj 40 Mg Vial IVP 02/13/24 08:59 40 mg QDAY CELINA Administration Rifaximin 550 mg 01/12/24 21:00 01/14/24 09:03 Rifaximin 550 Mg Tablet PO 01/19/24 20:59 550 mg BID CELINA Administration Tamsulosin HCl 0.4 mg 01/13/24 12:15 01/14/24 09:03 Tamsulosin Hcl 0.4 Mg Capsule PO 02/12/24 12:14 0.4 mg QDAY CELINA Administration Plan Elzbieta Knight is 53 yr female with PMH of decompensated liver cirrhosis, type 2 diabetes, Grade III esophageal varices s/p band ligation, hemorrhoids presenting to ED today after having multiple episodes of hematemesis since last night. Patient is also complaining of weakness, fatigue, slurred speech, dark-colored stool, decreased appetite. There is history of alcohol use disorder with last drink being over 6 months. Patient is compliant with medications. Dr. Culp was consulted and patient admitted for endoscopy procedure for upper GI bleed. #Acute blood loss anemia most likely 2/2 #Upper GI bleed Patient is presenting with multiple episodes of hematemesis since last night. Has history of grade 3 esophageal varices status band ligation. Endorses blood in the stool. Previous admission patient required 3 units PRBC transfusion. In ED--Hb 11.5, hematocrit 34%, MCV 98. Dr. Culp was consulted and patient started on octreotide drip, Protonix 40 twice daily, morphine 5 mg x 1, Zofran. ?Endoscopy done yesterday 01/13 showed findings of grade 2 esophageal varices. Not large enough for band ligation. Also finding of gastritis and hypertensive portal gastropathy. -Per Dr. Culp recommendations will continue octreotide drip for 3 more days. (total of 5) #History of decompensated liver cirrhosis #Synthetic liver dysfunction #Hyperammonemia Patient has a history of alcohol abuse disorder last drink being over 6 months ago. Patient used to drink about 1 L vodka every 2 days. Currently alert and oriented x 3 however does have slurred speech with slow, incongruent thought process. Thrombocytopenia 65, PT elevated 16.2, INR elevated 1.5, hyperbilirubinemia 5.2, ammonia 130, albumin 3.3 Child-[place] Socre: 9 (indication for liver transplant) MELD score: 20 points with 19.6% 3 mo mortality risk ?stop ceftriaxone SBP prophylaxis ? Continue octreotide drip ?Lactulose 20 g p.o. 3 times daily -rifaximin 550 PO BID -She sees liver specialist and patient is set up for possible liver transplant in February of next year. #History hypotension ? Resume home medication 10 mg midodrine p.o. 3 times daily #[id number] type 2 diabetes, adequately controlled On admission initial glucose 115. Last A1c 5.1 on 11/17/23. Patient takes metformin 500mg PO daily for diabetes at home. -Held home medications -Bedside blood glucose checks AC -Insulin lispro sliding scale -Carb consistent low diet -Diabetes education Health maintenance: Dispo: med surg, octreotide drip x3 more days DVT prophylaxis: Subcu heparin CODE STATUS: Full code Diet: Diabetic full liquid The patient's management plan was discussed with my attending physician Dr. Glover and senior Dr. Car. Jessica Melendez, PGY-1 Attending Provider Attestation/Addendum I have discussed and was present for the essential components of the history, physical examination, diagnosis, and treatment plan with the resident. I agree with the patient's care as documented by the resident and amended herein by me. Dickson Glover DO. Patient seen and evaluated in the AM. In short, 53-year-old male with significant past medical history of end-stage liver disease with gastric varices, presented with recurrent upper GI bleed. Recent banding during last admission. EGD performed yesterday demonstrated hemorrhagic gastritis secondary to portal gastropathy per GI recommendations, will continue octreotide for a total of 5 days, today is day 2. Will continue to monitor closely, patient on lactulose and rifaximin, ceftriaxone discontinued, Protonix continued at 40 mg IV daily. Will continue to monitor closely, patient doing very well today Although this document has been carefully reviewed, there may still be some phonetic and other typographical errors. These errors are purely grammatical due to imperfections in the software program and should not be construed in any way to compromise the substance of the patient's medical care during this visit.
--- NOTE | 2024-01-14 14:54 | PC.SS ---
Rounding: Pt requiring 3 more days of Octriotide drip
--- NOTE | 2024-01-14 17:41 | PD.IMPROG ---
Documentation for date of: 01/14/24 Subjective Subjective Interval history: Hemoglobin hematocrit 10.4 and 31.3 Exam Vital Signs Temp Pulse Resp BP Pulse Ox O2 Del Method O2 Flow Rate 98.1 F 94 16 107/65 98 Room Air 3 01/14/24 16:00 01/14/24 16:00 01/14/24 16:00 01/14/24 16:00 01/14/24 16:00 01/14/24 16:00 01/14/24 04:00 Objective Labs 01/14/24 05:11 01/14/24 05:11 Labs: Laboratory Results - last 24 hr 01/14/24 05:11 WBC 3.9 RBC 3.09 L Hgb 10.4 L Hct 31.3 L MCV 101 H MCH 33.7 MCHC 33.2 RDW Std Deviation 82.1 H Plt Count 62 L D Neut % (Auto) 56 Lymph % (Auto) 33 [place] % (Auto) 6 Eos % (Auto) 3 Baso % (Auto) 1 Neut # (Auto) 2.2 Lymph # (Auto) 1.3 [place] # (Auto) 0.2 Eos # (Auto) 0.1 Baso # (Auto) 0.1 Immature Gran # (Auto) 0.01 H Absolute Nucleated RBC 0.00 Immature Gran % 0 Nucleated RBC % 0 Sodium 136 Potassium 4.3 Chloride 105 Carbon Dioxide 23.3 Anion Gap 8 BUN 14 Creatinine 0.8 Estim Creat Clear Calc 71.1 eGFR > 60 BUN/Creatinine Ratio 18 Glucose 140 H Calculated Osmolality 274 L Calcium 9.1 Corrected Calcium 9.7 Total Bilirubin 9.1 H D AST 60 H ALT 28 Alkaline Phosphatase 108 Total Protein 7.7 Albumin 3.3 L Globulin 4.4 H Albumin/Globulin Ratio 0.8 L Misc Test Result Platelets confirmed Impressions Impression: # Anemia blood loss # Upper GI bleed secondary to portal hypertension as well as hypertensive portal gastropathy with mucosal oozing of blood Continue to monitor CBC and continue octreotide Assessment & Plan A&P Narrative # Acute upper GI bleed could be secondary to esophageal varices or hypertensive portal gastropathy leading to mucosal bleeding # Thrombocytopenia # Coagulopathy complicating the picture # Hepatic/metabolic encephalopathy Plan Octreotide 50 mcg IV push and 50 mcg/h infusion IV Protonix Serial CBC Lactulose and rifaximin Consent will be obtained from the mother for fiberoptic esophagogastroduodenoscopy with possible therapeutic intervention under intravenous moderate sedation Continue current management Prognosis guarded Thank you very much for the opportunity to participate in the care of this patient Time Spent With Patient Time: Total time spent is greater than 50% in coordination of care (as documented) at patient's floor/unit and/or counseling patient:
[2024-01-15] VITALS (8 sets, daily range): BP systolic 97–113; BP diastolic 58–68; PULSE 67–111; RESP 18; TEMP 36.2–36.8; O2SAT 98–99
[2024-01-15] MEDS: OCTREOTIDE ACET INJ 1,000 MCG in SODIUM CHLORIDE 0.9% 100 ML 5.1 MCG IV ×2 (03:23→23:20)
[2024-01-15] MEDS: MIDODRINE 5 MG TABLET 10 MG PO ×2 (05:37→14:11)
[2024-01-15] MEDS: LACTULOSE SYRUP 20 GM/30 ML UDC 40 GM PO ×2 (05:37→14:10)
[2024-01-15] MEDS: ACETAMINOPHEN 325 MG TABLET 650 MG PO (05:51)
[2024-01-15 06:15] LABS: Basophils % (Auto) 1 % (0-2.5); Eosinophils # (Auto) 0.1 Thou/mm3 (0.0-0.5); Eosinophils % (Auto) 4 % (0-10); Hemoglobin 9.7 g/dL (12.0-16.0); Immature Granulocytes % (Auto) 0 % (0-0); Lymphocytes % (Auto) 39 % (10-50); Mean Corpuscular HGB Conc 33.4 g/dl (31.0-37.0); Mean Corpuscular Hemoglobin 33.6 pg (25.0-35.0); Mean Corpuscular Volume 100 fL (80-100); Monocytes # (Auto) 0.3 Thou/mm3 (0.0-0.8); Monocytes % (Auto) 10 % (0-12); Neutrophils # (Auto) 1.2 Thou/mm3 (1.8-7.7); Neutrophils % (Auto) 47 % (37-80); Nucleated Red Blood Cell % 0 /100 WBC (0); RDW Standard Deviation 76.7 fL (36.4-46.3); Red Blood Count 2.89 Miln/mm3 (4.00-5.20)
[2024-01-15 06:18] LABS: Platelet Count 36 Thou/mm3 (140-440)
[2024-01-15 06:19] LABS: White Blood Count 2.6 Thou/mm3 (3.6-11.0)
[2024-01-15 06:20] LABS: Slide Review Platelets confirmed
[2024-01-15 07:03] LABS: Alanine Aminotransferase 23 U/L (10-49); Albumin, Serum 2.9 gm/dL (3.5-5.0); Albumin/Globulin Ratio 0.7 (1.2-2.2); Alkaline Phosphatase 104 U/L (46-116); Anion Gap 9 (7-16); Aspartate Amino Transferase 48 U/L (0-34); BUN/Creatinine Ratio 9 Ratio (12-20); Bilirubin,Total 6.7 mg/dL (0.3-1.2); Blood Urea Nitrogen 7 mg/dL (9-23); Calcium (Corrected) 9.9 mg/dL (8.5-10.1); Carbon Dioxide 21.7 mMol/L (20.0-31.0); Chloride 108 mMol/L (98-107); Creatinine (Component) 0.8 mg/dL (0.6-1.3); Estimated Creatinine Clearance 71.1 mL/min (>60); Globulin 3.9 gm/dL (2.3-3.5); Glucose 170 mg/dL (74-106); Osmolality,Calculated 279 (275-295); Potassium 3.9 mMol/L (3.4-5.1); Sodium 139 mMol/L (136-145); Total Protein 6.8 gm/dL (5.7-8.2); eGFR > 60 See Note
[2024-01-15] MEDS: INSULIN LISPRO (AdmeLOG) 1 UNIT/0.01 ML UNIT SC ×2 (07:50→11:54)
[2024-01-15] MEDS: CYANOCOBALAMIN INJ 1,000 mCg/ML VIAL 1000 MCG IM (09:06)
[2024-01-15] MEDS: PANTOPRAZOLE INJ 40 MG VIAL IVP (09:06)
[2024-01-15] MEDS: TAMSULOSIN HCL 0.4 MG CAPSULE PO (09:06)
[2024-01-15] MEDS: VIT B12/Vit C/FA (Nephrovite) TABLET 1 TAB PO (09:07)
[2024-01-15] MEDS: rifaximin 550 MG TABLET PO ×2 (09:07→20:40)
[2024-01-15 09:14] LABS: Clostridium Difficile PCR Negative (Negative)
[2024-01-15] MEDS: LACTOBACILLUS RHAMNOSUS 1 CAP PO ×2 (10:48→20:40)
[2024-01-15 12:07] LABS: Iron 75 mcg/dL (50-170); Percent Iron Saturation 36 % (20-55); Total Iron Binding Capacity 204 mcg/dL (250-425); Unsaturated Iron Binding 129 (225-295)
--- NOTE | 2024-01-15 15:42 | ESPR_ITS ---
Documentation for date of: 01/15/24 Subjective Subjective Interval history: Patient was seen and examined by the bedside. No acute overnight events. Stated that she had 6 bowel movements till this morning and did not notice any blood or blackish discoloration of stools. Vitals are stable. Still on octreotide drip and will continue for 2 more days. Labs showed leukopenia, 2.6K and absolute neutrophil count is around 1200, platelets 36K, total bilirubin is 6.7, albumin is 2.9. EGD done showed esophageal varices grade 2 which is not amenable for ligation. Will start propranolol if blood pressures are well- maintained. Exam Vital Signs Temp Pulse Resp BP Pulse Ox O2 Del Method O2 Flow Rate 97.4 F 74 18 112/60 98 Room Air 3 01/15/24 15:19 01/15/24 15:19 01/15/24 15:19 01/15/24 15:19 01/15/24 15:19 01/15/24 15:19 01/15/24 04:00 Narrative Exam General: Awake and in no acute distress. HEENT: Normocephalic, atraumatic, mucous membranes moist. Heart: Regular rate and rhythm, no murmurs. Lungs: Clear to auscultation with no wheezing or crackles. Abdomen: Soft, nondistended, mild tenderness in right upper quadrant, positive bowel sounds. ?No guarding or rebound tenderness. Neurologic: Alert and oriented x3, no gross neurological deficit, and patient able to move all 4 extremities. Extremities: No edema. Skin: No rash or ecchymoses. Objective Labs 01/16/24 04:57 01/16/24 04:57 Labs: Laboratory Results - last 24 hr 01/15/24 01/15/24 01/15/24 04:26 05:24 10:49 WBC 2.6 L RBC 2.89 L Hgb 9.7 L Hct 29.0 L MCV 100 MCH 33.6 MCHC 33.4 RDW Std Deviation 76.7 H Plt Count 36 L D Neut % (Auto) 47 Lymph % (Auto) 39 [place] % (Auto) 10 Eos % (Auto) 4 Baso % (Auto) 1 Neut # (Auto) 1.2 L Lymph # (Auto) 1.0 [place] # (Auto) 0.3 Eos # (Auto) 0.1 Baso # (Auto) 0.0 Immature Gran # (Auto) 0.00 Absolute Nucleated RBC 0.00 Immature Gran % 0 Nucleated RBC % 0 Sodium 139 Potassium 3.9 Chloride 108 H Carbon Dioxide 21.7 Anion Gap 9 BUN 7 L Creatinine 0.8 Estim Creat Clear Calc 71.1 eGFR > 60 BUN/Creatinine Ratio 9 L Glucose 170 H Calculated Osmolality 279 Calcium 9.0 Corrected Calcium 9.9 Iron 75 TIBC 204 L Iron Saturation 36 Unsat Iron Binding 129 L Total Bilirubin 6.7 H D AST 48 H ALT 23 Alkaline Phosphatase 104 Total Protein 6.8 Albumin 2.9 L Globulin 3.9 H Albumin/Globulin Ratio 0.7 L Stl C. diff Tox B Gene Negative Misc Test Result Platelets confirmed Quality Measures Quality Measures none Assessment & Plan Assessment Current Active Medications: Generic Name Dose Route Start Last Admin Trade Name Freq PRN Reason Stop Dose Admin Acetaminophen 650 mg 01/13/24 08:40 01/15/24 05:51 Acetaminophen 325 Mg Tablet PO 02/12/24 08:39 650 mg Q6HR PRN Administration Fever >100.3 or pain Dextrose 25 ml 01/12/24 17:45 Dextrose 50%-Water Inj 50 Ml Syringe IV 02/11/24 17:44 Q15MIN PRN BG 50-70 responsive npo pt Dextrose 50 ml 01/12/24 17:45 Dextrose 50%-Water Inj 50 Ml Syringe IV 02/11/24 17:44 Q15MIN PRN BG <50 OR BG <70 & pt unresponsive Glucagon 1 mg 01/12/24 17:45 Glucagon Inj 1 Mg Vial IM Q15MIN PRN BG <70, and no IV access Octreotide Acetate 1,000 mcg/ 102 mls @ 5.1 mls/hr 01/13/24 09:00 01/15/24 03:23 Sodium Chloride IV 01/18/24 16:00 50 mcg/hr .Q20H CELINA 5.1 mls/hr Administration Protocol 50 MCG/HR Insulin Human Lispro 0 unit 01/13/24 07:30 01/15/24 11:54 Insulin Lispro (Admelog) 1 Unit/0.01 Ml Unit SC 02/12/24 07:29 2 unit AC CELINA Administration Protocol Lactobacillus Rhamnosus 1 cap 01/15/24 10:45 01/15/24 10:48 Lactobacillus Rhamnosus 1 Cap PO 02/14/24 10:44 1 cap BID CELINA Administration Lactulose 40 gm 01/13/24 14:00 01/15/24 14:10 Lactulose Syrup 20 Gm/30 Ml Udc PO 02/12/24 13:59 40 gm TID CELINA Administration Protocol Midodrine 10 mg 01/12/24 22:00 01/15/24 14:11 Midodrine 5 Mg Tablet PO 02/11/24 21:59 10 mg TID CELINA Administration Ondansetron HCl 4 mg 01/12/24 12:35 Ondansetron Inj 2 Mg/Ml Inj 2 Ml IV 02/11/24 12:34 Q6H PRN NAUSEA OR VOMITING Protocol Pantoprazole Sodium 40 mg 01/14/24 09:00 01/15/24 09:06 Pantoprazole Inj 40 Mg Vial IVP 02/13/24 08:59 40 mg QDAY CELINA Administration Rifaximin 550 mg 01/12/24 21:00 01/15/24 09:07 Rifaximin 550 Mg Tablet PO 01/19/24 20:59 550 mg BID CELINA Administration Tamsulosin HCl 0.4 mg 01/13/24 12:15 01/15/24 09:06 Tamsulosin Hcl 0.4 Mg Capsule PO 02/12/24 12:14 0.4 mg QDAY CELINA Administration Vitamin B Complex/Vit C/Folic Acid 1 tab 01/15/24 09:00 01/15/24 09:07 Vit B12/Vit C/Fa (Nephrovite) Tablet PO 02/14/24 08:59 1 tab QDAY CELINA Administration Plan Elzbieta Knight is 53 yr female with PMH of decompensated liver cirrhosis, type 2 diabetes, Grade III esophageal varices s/p band ligation, hemorrhoids presenting to ED today after having multiple episodes of hematemesis since last night. Patient is also complaining of weakness, fatigue, slurred speech, dark-colored stool, decreased appetite. There is history of alcohol use disorder with last drink being over 6 months. Patient is compliant with medications. Dr. Culp was consulted and patient admitted for endoscopy procedure for upper GI bleed. #Acute blood loss anemia most likely 2/2 #Upper GI bleed Patient is presenting with multiple episodes of hematemesis since last night. Has history of grade 3 esophageal varices status band ligation. Endorses blood in the stool. Previous admission patient required 3 units PRBC transfusion. In ED--Hb 11.5, hematocrit 34%, MCV 98. Dr. Culp was consulted and patient started on octreotide drip, Protonix 40 twice daily, morphine 5 mg x 1, Zofran. ?Endoscopy done yesterday 01/13 showed findings of grade 2 esophageal varices. Not large enough for band ligation. Also finding of gastritis and hypertensive portal gastropathy. -Per Dr. Culp recommendations will continue octreotide drip for 3 more days. (total of 5) #History of decompensated liver cirrhosis #Synthetic liver dysfunction #Hyperammonemia Patient has a history of alcohol abuse disorder last drink being over 6 months ago. Patient used to drink about 1 L vodka every 2 days. Currently alert and oriented x 3 however does have slurred speech with slow, incongruent thought process. Thrombocytopenia 65, PT elevated 16.2, INR elevated 1.5, hyperbilirubinemia 5.2, ammonia 130, albumin 3.3 Child-[place] Socre: 9 (indication for liver transplant) MELD score: 20 points with 19.6% 3 mo mortality risk [place] discrimination factor - steroids not indicated ?stop ceftriaxone SBP prophylaxis ? Continue octreotide drip - D3 ?Lactulose 20 g p.o. 3 times daily -rifaximin 550 PO BID -She sees liver specialist and patient is set up for possible liver transplant appointment to get into the list in February of next year. #History hypotension ? Resume home medication 10 mg midodrine p.o. 3 times daily - PRN if SBP <100 mm Hg #[id number] type 2 diabetes, adequately controlled On admission initial glucose 115. Last A1c 5.1 on 11/17/23. Patient takes metformin 500mg PO daily for diabetes at home. -Held home medications -Bedside blood glucose checks AC -Insulin lispro sliding scale -Carb consistent low diet -Diabetes education Health maintenance: Dispo: med surg, octreotide drip x2 more days DVT prophylaxis: Subcu heparin CODE STATUS: Full code Diet: mechanically altered Patient plan of care was discussed with the attending physician, Dr. Corbin Gandhi, PGY1 Attending Provider Attestation/Addendum Shaila Slade, , attest that I was physically present for the son portions of the service and evaluated the patient with the resident and I reviewed and discussed the case with the resident and agree with the resident's findings and plans of care as documented above Patient seen and evaluated this AM. No acute events overnight. Continue with octreotide drip. Patient reports some cramping due to multiple BMs due to lactulose. Patient is to remain on octreotide drip until 01/16. Will continue wtih current management otherwise. No pedal edema. Will hold off on diuresis at this time.
--- NOTE | 2024-01-15 16:19 | PC.SS ---
Rounding: On octreiotide Drip till 01/16
--- NOTE | 2024-01-15 22:23 | PD.IMPROG ---
Documentation for date of: 01/15/24 Subjective Subjective Interval history: Patient evaluated Hemoglobin hematocrit slight drop to 9.7 and 29.0 Exam Vital Signs Temp Pulse Resp BP Pulse Ox O2 Del Method O2 Flow Rate 97.2 F 96 18 97/63 99 Room Air 3 01/15/24 20:00 01/15/24 20:00 01/15/24 20:00 01/15/24 20:00 01/15/24 20:00 01/15/24 20:00 01/15/24 04:00 Objective Labs 01/15/24 05:24 01/15/24 05:24 Labs: Laboratory Results - last 24 hr 01/15/24 01/15/24 01/15/24 04:26 05:24 10:49 WBC 2.6 L RBC 2.89 L Hgb 9.7 L Hct 29.0 L MCV 100 MCH 33.6 MCHC 33.4 RDW Std Deviation 76.7 H Plt Count 36 L D Neut % (Auto) 47 Lymph % (Auto) 39 [place] % (Auto) 10 Eos % (Auto) 4 Baso % (Auto) 1 Neut # (Auto) 1.2 L Lymph # (Auto) 1.0 [place] # (Auto) 0.3 Eos # (Auto) 0.1 Baso # (Auto) 0.0 Immature Gran # (Auto) 0.00 Absolute Nucleated RBC 0.00 Immature Gran % 0 Nucleated RBC % 0 Sodium 139 Potassium 3.9 Chloride 108 H Carbon Dioxide 21.7 Anion Gap 9 BUN 7 L Creatinine 0.8 Estim Creat Clear Calc 71.1 eGFR > 60 BUN/Creatinine Ratio 9 L Glucose 170 H Calculated Osmolality 279 Calcium 9.0 Corrected Calcium 9.9 Iron 75 TIBC 204 L Iron Saturation 36 Unsat Iron Binding 129 L Total Bilirubin 6.7 H D AST 48 H ALT 23 Alkaline Phosphatase 104 Total Protein 6.8 Albumin 2.9 L Globulin 3.9 H Albumin/Globulin Ratio 0.7 L Stl C. diff Tox B Gene Negative Misc Test Result Platelets confirmed Impressions Impression: # Upper GI bleed due to hypertensive portal gastropathy and mucosal oozing of blood Continue octreotide infusion Assessment & Plan A&P Narrative # Acute upper GI bleed could be secondary to esophageal varices or hypertensive portal gastropathy leading to mucosal bleeding # Thrombocytopenia # Coagulopathy complicating the picture # Hepatic/metabolic encephalopathy Plan Octreotide 50 mcg IV push and 50 mcg/h infusion IV Protonix Serial CBC Lactulose and rifaximin Consent will be obtained from the mother for fiberoptic esophagogastroduodenoscopy with possible therapeutic intervention under intravenous moderate sedation Continue current management Prognosis guarded Thank you very much for the opportunity to participate in the care of this patient Time Spent With Patient Time: Total time spent is greater than 50% in coordination of care (as documented) at patient's floor/unit and/or counseling patient:
[2024-01-15] MEDS: traMADol HCL 50 MG TABLET PO (23:20)
[2024-01-16] VITALS: BP 100/58; PULSE 76; RESP 17; TEMP 36.4; O2SAT 96
[2024-01-16 04:00] VITALS: BP 98/66; PULSE 80; RESP 16; TEMP 36.4; O2SAT 100
[2024-01-16] MEDS: traMADol HCL 50 MG TABLET PO ×2 (05:42→18:57)
[2024-01-16 05:56] LABS: Basophils % (Auto) 1 % (0-2.5); Eosinophils # (Auto) 0.1 Thou/mm3 (0.0-0.5); Eosinophils % (Auto) 4 % (0-10); Hematocrit 27.6 % (36.0-46.0); Hemoglobin 9.3 g/dL (12.0-16.0); Immature Granulocytes % (Auto) 0 % (0-0); Immature Granulocytes Auto 0.01 Thou/mm3 (0.00-0.00); Lymphocytes % (Auto) 39 % (10-50); Mean Corpuscular HGB Conc 33.7 g/dl (31.0-37.0); Mean Corpuscular Hemoglobin 34.1 pg (25.0-35.0); Mean Corpuscular Volume 101 fL (80-100); Monocytes # (Auto) 0.2 Thou/mm3 (0.0-0.8); Monocytes % (Auto) 7 % (0-12); Neutrophils # (Auto) 1.2 Thou/mm3 (1.8-7.7); Neutrophils % (Auto) 49 % (37-80); Nucleated Red Blood Cell % 0 /100 WBC (0); RDW Standard Deviation 76.3 fL (36.4-46.3); Red Blood Count 2.73 Miln/mm3 (4.00-5.20)
[2024-01-16 05:59] LABS: Platelet Count 35 Thou/mm3 (140-440); White Blood Count 2.4 Thou/mm3 (3.6-11.0)
[2024-01-16 06:18] LABS: Alanine Aminotransferase 19 U/L (10-49); Albumin, Serum 2.7 gm/dL (3.5-5.0); Albumin/Globulin Ratio 0.7 (1.2-2.2); Alkaline Phosphatase 109 U/L (46-116); Anion Gap 9 (7-16); Aspartate Amino Transferase 48 U/L (0-34); BUN/Creatinine Ratio 10 Ratio (12-20); Blood Urea Nitrogen 7 mg/dL (9-23); Calcium 9.1 mg/dL (8.3-10.6); Calcium (Corrected) 10.1 mg/dL (8.5-10.1); Carbon Dioxide 23.4 mMol/L (20.0-31.0); Chloride 112 mMol/L (98-107); Creatinine (Component) 0.7 mg/dL (0.6-1.3); Estimated Creatinine Clearance 81.3 mL/min (>60); Globulin 4.1 gm/dL (2.3-3.5); Glucose 101 mg/dL (74-106); Osmolality,Calculated 284 (275-295); Potassium 4.2 mMol/L (3.4-5.1); Sodium 144 mMol/L (136-145); Total Protein 6.8 gm/dL (5.7-8.2); eGFR > 60 See Note
[2024-01-16 06:41] LABS: Slide Review Platelets confirmed
[2024-01-16] MEDS: INSULIN LISPRO (AdmeLOG) 1 UNIT/0.01 ML UNIT SC ×3 (07:33→17:04)
[2024-01-16 07:48] VITALS: BP 129/68; PULSE 77; RESP 19; TEMP 37.1; O2SAT 98
[2024-01-16] MEDS: PANTOPRAZOLE INJ 40 MG VIAL IVP (08:45)
[2024-01-16] MEDS: TAMSULOSIN HCL 0.4 MG CAPSULE PO (08:52)
[2024-01-16] MEDS: rifaximin 550 MG TABLET PO ×2 (08:52→20:35)
[2024-01-16] MEDS: LACTOBACILLUS RHAMNOSUS 1 CAP PO ×2 (08:52→20:35)
[2024-01-16] MEDS: VIT B12/Vit C/FA (Nephrovite) TABLET 1 TAB PO (08:52)
[2024-01-16 12:00] VITALS: BP 104/67; PULSE 90; RESP 19; TEMP 36.8; O2SAT 99
[2024-01-16] MEDS: LACTULOSE SYRUP 20 GM/30 ML UDC PO (13:57)
--- NOTE | 2024-01-16 14:44 | ESPR_ITS ---
<Statement entered by Nasima Blair MD - 01/17/24 07:36> Patient was seen and examined by me personally. I agree with most of the assessment and plan as discussed with the chief internal auditor physician, and my attending, Dr. Alaniz. Patient having significant BMs, will lower lactulose dose. Patient to complete octreotide drip on 01/16 afternoon. Anticipate discharge after. Nasima Blair MD, PGY-3 Documentation for date of: 01/16/24 Subjective Subjective Interval history: Patient was seen and examined by the bedside. No acute overnight events. Stated that she had 10 bowel movements this morning. Vitals are stable. Decrease the dose of lactulose from 40 g to 20 g. Will continue octreotide drip till tomorrow 3 PM and planning to discharge once the drip is completed. Exam Vital Signs Temp Pulse Resp BP Pulse Ox O2 Del Method O2 Flow Rate 98.3 F 90 19 104/67 99 Room Air 3 01/16/24 12:00 01/16/24 12:00 01/16/24 12:00 01/16/24 12:00 01/16/24 12:00 01/16/24 12:00 01/15/24 04:00 Narrative Exam General: Awake and in no acute distress. HEENT: Normocephalic, atraumatic, mucous membranes moist. Heart: Regular rate and rhythm, no murmurs. Lungs: Clear to auscultation with no wheezing or crackles. Abdomen: Soft, nondistended, mild tenderness in right upper quadrant, positive bowel sounds. ?No guarding or rebound tenderness. Neurologic: Alert and oriented x3, no gross neurological deficit, and patient able to move all 4 extremities. Extremities: No edema. Skin: No rash or ecchymoses. Objective Labs 01/17/24 05:25 01/17/24 05:25 Labs: Laboratory Results - last 24 hr 01/16/24 04:57 WBC 2.4 L RBC 2.73 L Hgb 9.3 L Hct 27.6 L MCV 101 H MCH 34.1 MCHC 33.7 RDW Std Deviation 76.3 H Plt Count 35 L Neut % (Auto) 49 Lymph % (Auto) 39 [place] % (Auto) 7 Eos % (Auto) 4 Baso % (Auto) 1 Neut # (Auto) 1.2 L Lymph # (Auto) 1.0 [place] # (Auto) 0.2 Eos # (Auto) 0.1 Baso # (Auto) 0.0 Immature Gran # (Auto) 0.01 H Absolute Nucleated RBC 0.00 Immature Gran % 0 Nucleated RBC % 0 Sodium 144 Potassium 4.2 Chloride 112 H Carbon Dioxide 23.4 Anion Gap 9 BUN 7 L Creatinine 0.7 Estim Creat Clear Calc 81.3 eGFR > 60 BUN/Creatinine Ratio 10 L Glucose 101 D Calculated Osmolality 284 Calcium 9.1 Corrected Calcium 10.1 Total Bilirubin 5.0 H D AST 48 H ALT 19 Alkaline Phosphatase 109 Total Protein 6.8 Albumin 2.7 L Globulin 4.1 H Albumin/Globulin Ratio 0.7 L Misc Test Result Platelets confirmed Quality Measures Quality Measures none Assessment & Plan Assessment Current Active Medications: Generic Name Dose Route Start Last Admin Trade Name Freq PRN Reason Stop Dose Admin Acetaminophen 650 mg 01/15/24 22:02 Acetaminophen 325 Mg Tablet PO 02/12/24 08:39 Q6HR PRN Fever >100.3 or mild pain (1-3 Dextrose 25 ml 01/12/24 17:45 Dextrose 50%-Water Inj 50 Ml Syringe IV 02/11/24 17:44 Q15MIN PRN BG 50-70 responsive npo pt Dextrose 50 ml 01/12/24 17:45 Dextrose 50%-Water Inj 50 Ml Syringe IV 02/11/24 17:44 Q15MIN PRN BG <50 OR BG <70 & pt unresponsive Glucagon 1 mg 01/12/24 17:45 Glucagon Inj 1 Mg Vial IM Q15MIN PRN BG <70, and no IV access Octreotide Acetate 1,000 mcg/ 102 mls @ 5.1 mls/hr 01/13/24 09:00 01/15/24 23:20 Sodium Chloride IV 01/18/24 16:00 50 mcg/hr .Q20H CELINA 5.1 mls/hr Administration Protocol 50 MCG/HR Insulin Human Lispro 0 unit 01/13/24 07:30 01/16/24 11:56 Insulin Lispro (Admelog) 1 Unit/0.01 Ml Unit SC 02/12/24 07:29 2 unit AC CELINA Administration Protocol Lactobacillus Rhamnosus 1 cap 01/15/24 10:45 01/16/24 08:52 Lactobacillus Rhamnosus 1 Cap PO 02/14/24 10:44 1 cap BID CELINA Administration Lactulose 20 gm 01/16/24 14:00 01/16/24 13:57 Lactulose Syrup 20 Gm/30 Ml Udc PO 02/15/24 13:59 20 gm TID CELINA Administration Protocol Midodrine 10 mg 01/15/24 15:50 Midodrine 5 Mg Tablet PO 02/14/24 21:59 TID PRN Blood Pressure - Low SBP<100 Ondansetron HCl 4 mg 01/12/24 12:35 Ondansetron Inj 2 Mg/Ml Inj 2 Ml IV 02/11/24 12:34 Q6H PRN NAUSEA OR VOMITING Protocol Pantoprazole Sodium 40 mg 01/14/24 09:00 01/16/24 08:45 Pantoprazole Inj 40 Mg Vial IVP 02/13/24 08:59 40 mg QDAY CELINA Administration Rifaximin 550 mg 01/12/24 21:00 01/16/24 08:52 Rifaximin 550 Mg Tablet PO 01/19/24 20:59 550 mg BID CELINA Administration Tamsulosin HCl 0.4 mg 01/13/24 12:15 01/16/24 08:52 Tamsulosin Hcl 0.4 Mg Capsule PO 02/12/24 12:14 0.4 mg QDAY CELINA Administration Tramadol HCl 50 mg 01/15/24 22:02 01/16/24 05:42 Tramadol Hcl 50 Mg Tablet PO 01/20/24 21:59 50 mg Q4HR PRN Administration moderate pain (4-7) Vitamin B Complex/Vit C/Folic Acid 1 tab 01/15/24 09:00 01/16/24 08:52 Vit B12/Vit C/Fa (Nephrovite) Tablet PO 02/14/24 08:59 1 tab QDAY CELINA Administration Plan Elzbieta Knight is 53 yr female with PMH of decompensated liver cirrhosis, type 2 diabetes, Grade III esophageal varices s/p band ligation, hemorrhoids presenting to ED today after having multiple episodes of hematemesis since last night. Patient is also complaining of weakness, fatigue, slurred speech, dark-colored stool, decreased appetite. There is history of alcohol use disorder with last drink being over 6 months. Patient is compliant with medications. Dr. Culp was consulted and patient admitted for endoscopy procedure for upper GI bleed. #Acute blood loss anemia most likely 2/2 #Upper GI bleed Patient is presenting with multiple episodes of hematemesis since last night. Has history of grade 3 esophageal varices status band ligation. Endorses blood in the stool. Previous admission patient required 3 units PRBC transfusion. In ED--Hb 11.5, hematocrit 34%, MCV 98. Dr. Culp was consulted and patient started on octreotide drip, Protonix 40 twice daily, morphine 5 mg x 1, Zofran. ?Endoscopy done yesterday 01/13 showed findings of grade 2 esophageal varices. Not large enough for band ligation. Also finding of gastritis and hypertensive portal gastropathy. -Per Dr. Culp recommendations will continue octreotide drip for 1 more day. (total of 5) #History of decompensated liver cirrhosis #Synthetic liver dysfunction #Hyperammonemia Patient has a history of alcohol abuse disorder last drink being over 6 months ago. Patient used to drink about 1 L vodka every 2 days. Currently alert and oriented x 3 however does have slurred speech with slow, incongruent thought process. Thrombocytopenia 65, PT elevated 16.2, INR elevated 1.5, hyperbilirubinemia 5.2, ammonia 130, albumin 3.3 [facility]-[place] [facility]: 9 (indication for liver transplant) MELD score: 20 points with 19.6% 3 mo mortality risk Maddrey discrimination factor - steroids not indicated ?stop ceftriaxone SBP prophylaxis ? Continue octreotide drip - D4 ?Lactulose 20 g p.o. 3 times daily -rifaximin 550 PO BID -She sees liver specialist and patient is set up for possible liver transplant appointment to get into the list in February of next year. #History hypotension ? Resume home medication 10 mg midodrine p.o. 3 times daily - PRN if SBP <100 mm Hg #[id number] type 2 diabetes, adequately controlled On admission initial glucose 115. Last A1c 5.1 on 11/17/23. Patient takes metformin 500mg PO daily for diabetes at home. -Held home medications -Bedside blood glucose checks AC -Insulin lispro sliding scale -Carb consistent low diet -Diabetes education Health maintenance: Dispo: med surg, octreotide drip x1 more day DVT prophylaxis: Subcu heparin CODE STATUS: Full code Diet: Regular Patient plan of care was discussed with the attending physician, Dr. Alaniz and senior resident Dr. Rossy Gandhi, PGY1 Attending Provider Attestation/Addendum I, Shaila Alaniz DO, attest that I was physically present for the son portions of the service and evaluated the patient with the resident and I reviewed and discussed the case with the resident and agree with the resident's findings and plans of care as documented above Patient seen and evaluated this AM. No acute events overnight. Patient states that she has been weak since she has been laying in bed. Will order physical therapy. She is otherwise feeling well. Patient is currently on Day 4 of 5 of octreotide. Anticipate DC within next 24hrs following her last bag of octreotide due to finish at around 3pm
[2024-01-16 16:00] VITALS: BP 108/76; PULSE 90; RESP 18; TEMP 36.6; O2SAT 99
[2024-01-16] MEDS: OCTREOTIDE ACET INJ 1,000 MCG in SODIUM CHLORIDE 0.9% 100 ML 5.1 MCG IV (17:04)
[2024-01-16 20:00] VITALS: BP 108/76; PULSE 90; RESP 18; TEMP 36.6; O2SAT 99
--- NOTE | 2024-01-16 20:18 | ESPR_ITS ---
Documentation for date of: 01/16/24 Subjective Subjective Interval history: Patient evaluated Hemoglobin 9.3 No signs of any active bleeding Exam Vital Signs Temp Pulse Resp BP Pulse Ox O2 Del Method O2 Flow Rate 97.9 F 90 18 108/76 99 Room Air 3 01/16/24 20:00 01/16/24 20:00 01/16/24 20:00 01/16/24 20:00 01/16/24 20:00 01/16/24 20:00 01/16/24 20:00 Objective Labs 01/16/24 04:57 01/16/24 04:57 Labs: Laboratory Results - last 24 hr 01/16/24 04:57 WBC 2.4 L RBC 2.73 L Hgb 9.3 L Hct 27.6 L MCV 101 H MCH 34.1 MCHC 33.7 RDW Std Deviation 76.3 H Plt Count 35 L Neut % (Auto) 49 Lymph % (Auto) 39 [place] % (Auto) 7 Eos % (Auto) 4 Baso % (Auto) 1 Neut # (Auto) 1.2 L Lymph # (Auto) 1.0 [place] # (Auto) 0.2 Eos # (Auto) 0.1 Baso # (Auto) 0.0 Immature Gran # (Auto) 0.01 H Absolute Nucleated RBC 0.00 Immature Gran % 0 Nucleated RBC % 0 Sodium 144 Potassium 4.2 Chloride 112 H Carbon Dioxide 23.4 Anion Gap 9 BUN 7 L Creatinine 0.7 Estim Creat Clear Calc 81.3 eGFR > 60 BUN/Creatinine Ratio 10 L Glucose 101 D Calculated Osmolality 284 Calcium 9.1 Corrected Calcium 10.1 Total Bilirubin 5.0 H D AST 48 H ALT 19 Alkaline Phosphatase 109 Total Protein 6.8 Albumin 2.7 L Globulin 4.1 H Albumin/Globulin Ratio 0.7 L Misc Test Result Platelets confirmed Impressions Impression: # Hypertensive portal gastropathy with mucosal oozing of blood most likely the cause of anemia blood loss Continue octreotide infusion # Hepatic/metabolic encephalopathy Continue current management Assessment & Plan A&P Narrative # Acute upper GI bleed could be secondary to esophageal varices or hypertensive portal gastropathy leading to mucosal bleeding # Thrombocytopenia # Coagulopathy complicating the picture # Hepatic/metabolic encephalopathy Plan Octreotide 50 mcg IV push and 50 mcg/h infusion IV Protonix Serial CBC Lactulose and rifaximin Consent will be obtained from the mother for fiberoptic esophagogastroduodenoscopy with possible therapeutic intervention under intravenous moderate sedation Continue current management Prognosis guarded Thank you very much for the opportunity to participate in the care of this patient Time Spent With Patient Time: Total time spent is greater than 50% in coordination of care (as documented) at patient's floor/unit and/or counseling patient:
[2024-01-17] VITALS: BP 107/62; PULSE 89; RESP 18; TEMP 36.3; O2SAT 97
[2024-01-17 04:00] VITALS: BP 112/68; PULSE 93; RESP 18; TEMP 36.4; O2SAT 99
[2024-01-17 06:16] LABS: Basophils % (Auto) 1 % (0-2.5); Eosinophils # (Auto) 0.1 Thou/mm3 (0.0-0.5); Eosinophils % (Auto) 4 % (0-10); Immature Granulocytes % (Auto) 0 % (0-0); Immature Granulocytes Auto 0.01 Thou/mm3 (0.00-0.00); Lymphocytes # (Auto) 1.2 Thou/mm3 (1.0-4.8); Lymphocytes % (Auto) 43 % (10-50); Mean Corpuscular HGB Conc 34.2 g/dl (31.0-37.0); Mean Corpuscular Hemoglobin 34.3 pg (25.0-35.0); Mean Corpuscular Volume 100 fL (80-100); Monocytes # (Auto) 0.2 Thou/mm3 (0.0-0.8); Monocytes % (Auto) 6 % (0-12); Neutrophils # (Auto) 1.2 Thou/mm3 (1.8-7.7); Neutrophils % (Auto) 45 % (37-80); Nucleated Red Blood Cell % 0 /100 WBC (0); RDW Standard Deviation 74.3 fL (36.4-46.3); Red Blood Count 2.39 Miln/mm3 (4.00-5.20)
[2024-01-17 06:25] LABS: Hemoglobin 8.2 g/dL (12.0-16.0); Platelet Count 30 Thou/mm3 (140-440); White Blood Count 2.7 Thou/mm3 (3.6-11.0)
[2024-01-17 06:48] LABS: Alanine Aminotransferase 22 U/L (10-49); Albumin, Serum 2.5 gm/dL (3.5-5.0); Albumin/Globulin Ratio 0.7 (1.2-2.2); Alkaline Phosphatase 107 U/L (46-116); Anion Gap 8 (7-16); Aspartate Amino Transferase 44 U/L (0-34); BUN/Creatinine Ratio 9 Ratio (12-20); Bilirubin,Total 4.9 mg/dL (0.3-1.2); Blood Urea Nitrogen 6 mg/dL (9-23); Calcium 8.1 mg/dL (8.3-10.6); Calcium (Corrected) 9.3 mg/dL (8.5-10.1); Chloride 107 mMol/L (98-107); Creatinine (Component) 0.7 mg/dL (0.6-1.3); Estimated Creatinine Clearance 81.3 mL/min (>60); Globulin 3.5 gm/dL (2.3-3.5); Glucose 114 mg/dL (74-106); Osmolality,Calculated 274 (275-295); Potassium 4.2 mMol/L (3.4-5.1); Sodium 138 mMol/L (136-145); eGFR > 60 See Note
[2024-01-17 07:42] VITALS: BP 109/67; PULSE 84; RESP 18; TEMP 36.6; O2SAT 97
[2024-01-17] MEDS: rifaximin 550 MG TABLET PO (09:12)
[2024-01-17] MEDS: TAMSULOSIN HCL 0.4 MG CAPSULE PO (09:13)
[2024-01-17] MEDS: LACTOBACILLUS RHAMNOSUS 1 CAP PO (09:13)
[2024-01-17] MEDS: PANTOPRAZOLE INJ 40 MG VIAL IVP (09:13)
[2024-01-17] MEDS: VIT B12/Vit C/FA (Nephrovite) TABLET 1 TAB PO (09:13)
[2024-01-17] MEDS: ACETAMINOPHEN 325 MG TABLET 650 MG PO (09:13)
[2024-01-17 09:33] LABS: Slide Review Platelets confirmed
[2024-01-17 11:38] VITALS: BP 99/63; PULSE 87; RESP 18; TEMP 36.5; O2SAT 99
[2024-01-17] MEDS: traMADol HCL 50 MG TABLET PO ×2 (11:42→16:07)
[2024-01-17] MEDS: INSULIN LISPRO (AdmeLOG) 1 UNIT/0.01 ML UNIT SC (11:42)
[2024-01-17] MEDS: OCTREOTIDE ACET INJ 1,000 MCG in SODIUM CHLORIDE 0.9% 100 ML 5.1 MCG IV (13:08)
[2024-01-17] MEDS: LACTULOSE SYRUP 20 GM/30 ML UDC PO (13:08)
--- NOTE | 2024-01-17 15:06 | ESDS_ITS ---
<Statement entered by Shaila Alaniz DO - 01/17/24 20:40> I, Shaila Alaniz DO, attest that I was physically present for the son portions of the service and evaluated the patient with the resident and I reviewed and discussed the case with the resident and agree with the resident's findings and plans of care as documented above <Statement entered by Nasima Blair MD - 01/17/24 17:59> Patient was seen and examined by me personally. I agree with the discharge plan as discussed with the pr intern physician, and my attending, Dr. Alaniz. Nasima Blair MD, PGY-3 Planned Discharge Date 01/17/24 DS: Providers Provider Date of admission: 01/12/24 12:35 Primary care physician: LETI Catherine Admitting Provider: Mateo Glover DO Attending Provider on Admission: Shaila Alaniz DO Consults: 01/12/24 11:22 Consult to Gastroenterology Stat Comment: Dr. Culp Consulting Provider: Brenda Culp 01/12/24 16:18 Health Equity Referral - Knowledge Deficit Routine Comment: Positive screening for knowledge deficit needs. Health Equity Referral - Nutrition Routine Comment: Positive screening for nutrition needs. Health Equity Referral - Utilities Routine Comment: Positive screening for utility assistance needs. 01/16/24 11:31 Referral Physical Therapy Routine Comment: Physician Instructions: Attending Provider on DC: Vikas Gandhi MD Discharging Provider: Vikas Gandhi MD DS: Diagnosis Problem List Completed Was Problem List Reviewed/Reconciled?: Yes Hospital Course Hospital Course Hospital course: Elzbieta Knight is 53 yr female with PMH of decompensated liver cirrhosis, alcohol use disorder and last alcohol use was 6 months ago per patient, type 2 diabetes, recent admission on 12/21/2023 s/p endoscopy showing grade 3 esophageal varices and band ligation, hemorrhoids presented to the hospital after having multiple episodes of hematemesis. Labs showed mild anemia, Hb 11.[address] abdomen pelvis significant for cirrhosis, esophageal varices minimal right- sided hydronephrosis with a 7 mm stone in right renal pelvis. Patient was started on octreotide drip. Dr. Culp was consulted and underwent endoscopy that showed grade 2 esophageal varices. Not large enough for band ligation. Also finding of gastritis and hypertensive portal gastropathy. Patient has completed 5 days of octreotide drip and remains hemodynamically stable. Patient is stable for discharge home. Patient was discharged to home with the following medications and recommendations. - Please follow up with your PCP within 1 week of discharge. - If your PCP does not have any appointments, you can follow up with the [facility]. Please call [phone] to make an appointment. - Your diuretics (furosemide, spironolactone) were decreased to half their doses due to low blood pressure. You can work with your PCP to increase the doses as tolerated. - Continue other medications as previously prescribed. - Return to the ED if your symptoms return or worsen. #Acute blood loss anemia #Upper GI bleed #Decompensated liver cirrhosis #Hyperammonemia #History hypotension #Ncl-[id number] type 2 diabetes, adequately controlled Patient plan of care was discussed with the attending physician, Dr. Alaniz and senior resident Dr. Rossy Gandhi, PGY1 Time Spent with Patient Time attestation: Total time spent providing and/or coordinating discharge services: Exam Vital Signs Temp Pulse Resp BP Pulse Ox O2 Del Method O2 Flow Rate 97.7 F 87 18 99/63 99 Room Air 3 01/17/24 11:38 01/17/24 11:38 01/17/24 11:38 01/17/24 11:38 01/17/24 11:38 01/17/24 11:38 01/17/24 11:38 Narrative Exam General: Awake and in no acute distress. HEENT: Normocephalic, atraumatic, mucous membranes moist. Heart: Regular rate and rhythm, no murmurs. Lungs: Clear to auscultation with no wheezing or crackles. Abdomen: Soft, nondistended, mild tenderness in right upper quadrant, positive bowel sounds. ?No guarding or rebound tenderness. Neurologic: Alert and oriented x3, no gross neurological deficit, and patient able to move all 4 extremities. Extremities: No edema. Skin: No rash or ecchymoses. Discharge Plan Plan Patient Disposition: Home w/HOME HEALTH Patient condition on transfer: Stable Care Plan Goals: Please follow up with your PCP within 1 week of discharge. If your PCP does not have any appointments, you can follow up with the [facility]. Please call [phone] to make an appointment. Your diuretics (furosemide, spironolactone) were decreased to half their doses due to low blood pressure. You can work with your PCP to increase the doses as tolerated. Continue other medications as previously prescribed. Return to the ED if your symptoms return or worsen. Prescriptions/Referrals Prescriptions/Med Rec: New furosemide 20 mg tablet 20 mg PO QAM 30 Days Qty: 30 1RF spironolactone 50 mg tablet 50 mg PO QAM 30 Days Qty: 30 1RF Continued pantoprazole 40 mg tablet,delayed release (DR/EC) 40 mg PO QDAY Qty: 30 0RF ondansetron 4 mg tablet,disintegrating 4 mg PO Q8H Qty: 14 0RF methocarbamol 750 mg tablet 750 mg PO BID Patient Comments: TAKE 1 TABLET BY MOUTH TWICE A DAY lidocaine HCl 2 % solution 5 ml PO 6 TIMES DAILY Patient Comments: SWISH AND SPIT OUT 5ML BY MOUTH 6 TIMES A DAY NEEDED ergocalciferol (vitamin D2) 1,250 mcg (50,000 unit) capsule 50,000 unit PO QWEEK Patient Comments: TAKE 1 CAPSULE BY MOUTH ONCE A WEEK Hemorrhoidal Cream 0.25-1 % cream 1 applic OR BID Qty: 28 0RF tramadol 50 mg tablet 50 mg PO Q4HR Patient Comments: TAKE 1 TABLET BY MOUTH EVERY 4 HOURS NEEDED FOR MODERATE PAIN 4-6 FOR 5 DAYS lactulose 20 gram/30 mL solution 20 g PO TID Qty: 3000 0RF hydrocortisone acetate [Anusol-HC] 25 mg suppository 25 mg OR QDAY Qty: 7 0RF Rx Instructions: take suppository at night metformin 500 mg tablet 500 mg PO QAM Patient Comments: TAKE 1 TABLET BY MOUTH WITH BREAKFAST Xifaxan 550 mg tablet 550 mg PO BID Patient Comments: TAKE 1 TABLET BY MOUTH TWICE A DAY FOR 1 MONTH midodrine 10 mg tablet 10 mg PO TID Patient Comments: PLEASE SEE ATTACHED FOR DETAILED DIRECTIONS Discontinued hydrocodone-acetaminophen 5-325 mg Tablet 1 tab PO Q4H PRN (Reason: Pain (Scale Score 7-10)) furosemide 40 mg tablet 40 mg PO QAM spironolactone 25 mg tablet 100 mg PO QDAY Patient Comments: TAKE 4 TABLETS BY MOUTH DAILY No Action (DME) [place] Adhesive Foam Dressing 5 X 5 bandage See Rx Instructions .Route Qty: 10 0RF Rx Instructions: As directed Referrals: Stacy Graff FNP [Primary Care Provider] - Patient/Caregiver Discharge Instructions Discharge Activity: as per physical therapy Other Discharge Activity Instructions:: Please follow up with your PCP within 1 week of discharge. If your PCP does not have any appointments, you can follow up with the [facility]. Please call [phone] to make an appointment. Education Materials: Bleeding Gastrointestinal Print Language: Norwegian Stand Alone Forms: [facility] Award Info., Patient Portal Info Letter Discharge Order Discharge Orders: Discharge (Routine); Ordered 01/17/24 Ordered By: Nasima Blair Quality Discharge Quality Measures VTE prophylaxis
[2024-01-17 15:55] VITALS: BP 98/61; PULSE 95; RESP 18; TEMP 36.3; O2SAT 96
--- NOTE | 2024-01-18 08:40 | PC.CM ---
Addendum entered by Brennon Ac RN 01/18/24 17:19: 12 HH agencies declined the pt. 1 considering. Addendum entered by Brennon Ac RN 01/18/24 08:41: HH referral sent on [facility]. Awaiting responses. Pending Start of care date. Original Note: No documentation from on pt. preference of HH agency.
--- NOTE | 2024-01-19 10:00 | PC.CM ---
No accepting agency as of now. I asked [facility] if they can help us. [facility] accepted the pt. Booked [facility]. Pending insurance auth and start of care date.
--- NOTE | 2024-01-20 09:24 | PC.CM ---
Pending authorization and start of care date from [facility].
--- NOTE | 2024-01-23 17:44 | PC.CM ---
start of care date with [facility] is 01/24/24.
== END 2024-01-17 18:09 | disposition home health service (06) | DRG 241 ==
LOC: SERX 11:32 → SERHOLD 12:44 → S3SX 15:07
PROVIDERS: Specialist; Student in an Organized Health Care Education/Training Program; Admitting Provider Student in an Organized Health Care Education/Training Program; Emergency Provider Emergency Medicine; PCP Nurse Practitioner Family; Visit Provider Internal Medicine
PROC: 0DJ08ZZ Inspection of Upper Intestinal Tract, Via Natural or Artificial Opening Endoscopic (ICD-10-PCS; CPT 43239; principal; 2024-01-13 17:00)
DX: K29.01 Acute gastritis with bleeding (principal); Z79.4 Long term (current) use of insulin; Z79.84 Long term (current) use of oral hypoglycemic drugs; I95.9 Hypotension, unspecified; K76.89 Other specified diseases of liver; D69.6 Thrombocytopenia, unspecified; E11.9 Type 2 diabetes mellitus without complications; I85.10 Secondary esophageal varices without bleeding; K74.60 Unspecified cirrhosis of liver; K76.6 Portal hypertension; D62 Acute posthemorrhagic anemia; D68.9 Coagulation defect, unspecified; G93.41 Metabolic encephalopathy; K76.82 Hepatic encephalopathy; K31.89 Other diseases of stomach and duodenum; N20.0 Calculus of kidney
CPT/HCPCS: 36415; 74160; 80053; 82140; 83540; 83550; 83690; 83735; 84100; 84484; 84703; 85025; 85610; 87493; 96374; 96375; 97162; 99291; A4649; J0696; J1200; J1815; J2250; J2270; J2354; J2405; J2470; J3010; J3420; J7030; J7050; Q9967; A9270

== ENCOUNTER 2024-01-23 15:17 | Emergency (ER) | payer MEDICAID, SELFPAY ==
[2024-01-23 15:18] VITALS: BMI 30.2
[2024-01-23 15:32] VITALS: BP 110/71; PULSE 77; RESP 18; TEMP 36.8; O2SAT 100
--- NOTE | 2024-01-23 15:40 | PD.EDRME ---
Rapid Medical Screening Exam RME Arrival date/time: 01/23/24 15:17 53-year-old female with history of cirrhosis of the liver evaluated yesterday for altered mental status is returning with a relative who states condition has worsened since her release last evening Chief Complaint: Abdominal Pain Time Seen by Provider: 01/23/24 15:22 Vital signs: Vital Signs Temperature 98.3 F 01/23/24 15:32 Pulse Rate 77 01/23/24 15:32 Respiratory Rate 18 01/23/24 15:32 Blood Pressure 110/71 01/23/24 15:32 Pulse Oximetry (%) 100 01/23/24 15:32 Oxygen Delivery Method Room Air 01/23/24 15:32
[2024-01-23 16:06] LABS: Basophils % (Auto) 1 % (0-2.5); Eosinophils # (Auto) 0.2 Thou/mm3 (0.0-0.5); Eosinophils % (Auto) 4 % (0-10); Hematocrit 22.3 % (36.0-46.0); Immature Granulocytes % (Auto) 0 % (0-0); Immature Granulocytes Auto 0.01 Thou/mm3 (0.00-0.00); Lymphocytes % (Auto) 42 % (10-50); Mean Corpuscular HGB Conc 32.7 g/dl (31.0-37.0); Mean Corpuscular Hemoglobin 34.6 pg (25.0-35.0); Mean Corpuscular Volume 106 fL (80-100); Monocytes # (Auto) 0.6 Thou/mm3 (0.0-0.8); Monocytes % (Auto) 12 % (0-12); Neutrophils # (Auto) 1.9 Thou/mm3 (1.8-7.7); Neutrophils % (Auto) 41 % (37-80); Nucleated Red Blood Cell % 0 /100 WBC (0); RDW Standard Deviation 74.9 fL (36.4-46.3); Red Blood Count 2.11 Miln/mm3 (4.00-5.20); White Blood Count 4.7 Thou/mm3 (3.6-11.0)
[2024-01-23 16:09] LABS: Hemoglobin 7.3 g/dL (12.0-16.0); Platelet Count 54 Thou/mm3 (140-440)
[2024-01-23 16:17] LABS: INR 1.8 (0.9-1.3); Partial Thromboplastin Time 38.4 Seconds (22.0-36.0); Prothrombin Time 18.7 Seconds (9.0-12.2)
[2024-01-23 16:24] LABS: Alanine Aminotransferase 25 U/L (10-49); Albumin, Serum 2.6 gm/dL (3.5-5.0); Albumin/Globulin Ratio 0.7 (1.2-2.2); Alkaline Phosphatase 117 U/L (46-116); Anion Gap 9 (7-16); Aspartate Amino Transferase 50 U/L (0-34); BUN/Creatinine Ratio 18 Ratio (12-20); Bilirubin,Total 4.2 mg/dL (0.3-1.2); Blood Urea Nitrogen 16 mg/dL (9-23); Calcium 8.3 mg/dL (8.3-10.6); Calcium (Corrected) 9.4 mg/dL (8.5-10.1); Carbon Dioxide 21.7 mMol/L (20.0-31.0); Chloride 109 mMol/L (98-107); Creatinine (Component) 0.9 mg/dL (0.6-1.3); Estimated Creatinine Clearance 61.3 mL/min (>60); Globulin 3.5 gm/dL (2.3-3.5); Glucose 132 mg/dL (74-106); Osmolality,Calculated 282 (275-295); Potassium 3.7 mMol/L (3.4-5.1); Sodium 140 mMol/L (136-145); Total Protein 6.1 gm/dL (5.7-8.2); eGFR > 60 See Note
[2024-01-23 16:31] LABS: Ammonia 94 uMol/L (11-32)
[2024-01-23 17:05] LABS: Slide Review Platelets confirmed
[2024-01-23 18:15] LABS: Collection Type, Urine Clean Catch
[2024-01-23 18:40] LABS: Bilirubin,Urine Negative (Negative); Blood,Urine 3+ (Negative); Clarity,Urine Turbid (Clear/Hazy); Color,Urine Yellow (Lt Yel-Yel); Culture Indicated,Urine Not Indicated; Glucose, Urine Negative (Negative); Hyaline Casts,Urine < 1 /hpf (0-1); Ketones,Urine Negative (Negative); Leukocyte Esterase,Urine Positive (Negative); Nitrite,Urine Negative (Negative); Protein,Urine Trace (Neg - Trace); RBC,Urine 90 /hpf (0-3); Specific Gravity,Urine 1.015 (1.001-1.035); Squamous Epithelial Cell,Urine 35 /hpf (0-5); Urobilinogen,Urine Negative mg/dL (0.0-1.0); WBC,Urine 9 /hpf (0-5)
--- NOTE | 2024-01-23 19:25 | PC.NURSE ---
Pt to room 6 at this time from lobby; assumed care.
--- NOTE | 2024-01-23 19:31 | PC.NURSE ---
FRANCISCO Hidalgo at the bedside at this time.
--- NOTE | 2024-01-23 19:33 | PD.EDADULT ---
ED General RME/HPI General Chief complaint: Abdominal Pain Stated complaint: R-SIDE ABD PAIN X2 DAYS Time Seen by Provider: 01/23/24 15:22 Arrival date/time: 01/23/24 15:17 CC: Abdominal pain back pain I do not feel good . Patient is very tearful somewhat dramatic states that she is not feeling any better patient was seen here yesterday with elevated ammonia level known for cirrhosis. Patient has no complaints of chest pain fever chills nausea or vomiting. RME / HPI RME / HPI narrative: 01/23/24 15:17 53-year-old female with history of cirrhosis of the liver evaluated yesterday for altered mental status is returning with a relative who states condition has worsened since her release last evening Related Data Home Medications ?Medication ?Instructions ?Recorded ?Confirmed ergocalciferol (vitamin D2) 1,250 50,000 unit PO QWEEK 09/15/23 01/22/24 mcg (50,000 unit) capsule lidocaine HCl 2 % mucosal solution 5 ml PO 6 TIMES DAILY PRN Sore 09/15/23 01/22/24 Throat methocarbamol 750 mg tablet 750 mg PO BID 09/15/23 01/22/24 tramadol 50 mg tablet 50 mg PO Q4HR PRN Pain 10/20/23 01/22/24 metformin 500 mg tablet 500 mg PO QAM 01/12/24 01/22/24 midodrine 10 mg tablet 10 mg PO TID 01/12/24 01/22/24 rifaximin 550 mg tablet (Xifaxan) 550 mg PO BID 01/12/24 01/22/24 cefuroxime axetil 500 mg tablet 500 mg PO BID 01/22/24 01/22/24 ferrous sulfate 325 mg (65 mg 325 mg PO DAILY 01/22/24 01/22/24 iron) tablet furosemide 20 mg tablet 40 mg PO QAM 01/22/24 01/22/24 Previous Rx's ?Medication ?Instructions ?Recorded phenylephrine 0.25 %-pramoxine 1 1 applic OR BID #28 grams 09/19/23 %-glycerin-wh.petrolatum rectal cream (Hemorrhoidal Cream) pantoprazole 40 mg tablet,delayed 40 mg PO QDAY #30 tabs 10/15/23 release foam bandage 5 X 5 (Biatain #10 ea 10/25/23 Adhesive Foam Dressing) lactulose 20 gram/30 mL oral 20 g (30 mL) PO TID #3,000 mL 10/25/23 solution hydrocortisone acetate 25 mg 25 mg OR QDAY #7 ea 11/02/23 rectal suppository (Anusol-HC) spironolactone 50 mg tablet 50 mg PO QAM 30 days #30 tabs 01/17/24 Allergies Allergy/AdvReac Type Severity Reaction Status Date / Time latex Allergy Severe Hives Verified 01/23/24 15:24 Review of Systems Review of Systems Narrative Review of Systems: GEN: No fever, no chills, no weight loss EYES: No discharge, no visual changes, no pain HEENT: No ear pain, no congestion, no sore throat PULM: No shortness of breath, no cough, no congestion CV: No chest pain, no dyspnea on exertion, no palpitations GI: No nausea, no vomiting, no diarrhea, + pain, no constipation : No frequency, no urgency, no dysuria MUSC/SKEL: No joint pain, + back pain SKIN: No rash PSYCH: No hallucinations, no depression HEME/LYMPH: No easy bleeding or bruising tendencies NEURO: No weakness, no headache Past Medical History Past Medical History NEUROLOGIC: Positive Neurological Disorders, Migraine and Spinal Cord Injury; Negative Seizures CARDIAC: Positive Cardiac Disorders and Hypotension; Negative Congestive Heart Failure RESPIRATORY: Negative Chronic Obstructive Pulmonary Disease (COPD) or Asthma GASTROINTESTINAL: Positive Gastrointestinal Disorders, Cirrhosis, Gastrointestinal Bleed and Esophageal Varices GENITOURINARY: Negative Renal Disease REPRODUCTIVE: Positive Endometriosis and Previous Pregnancies MUSCULOSKELETAL: Positive Musculoskeletal Disorders ENDOCRINE: Positive Endocrine Disorders and Diabetes Mellitus Type 2; Negative Diabetes Mellitus Type 1 HEMATOLOGIC: Positive Blood Disorders and Anemia; Negative Sickle Cell Disease PSYCHO/SOCIAL: Positive Depression and Anxiety OTHER HISTORY: Positive Blood Transfusions; Negative Autoimmune Disease, Blood Transfusion Reaction, Anesthesia Reactions or Cancer Family History FAMILY HISTORY: Positive Family Psychiatric Problems and Family Cancer; Negative Family Respiratory Disorders, Family Cardiac Disorders, Family Gastrointestinal Problems, Family Surgery or Family Anesthesia Reaction Surgical History SURGICAL: Positive Section (X3) Social History SMOKING STATUS: Never smoker SECOND HAND EXPOSURE: No SUBSTANCE USE: marijuana ED Exam Narrative Physical exam: [General: Somewhat dramatic tearful, but not in any acute distress Head normocephalic HEENT: Within acceptable limits Neck is supple nontender Chest equal chest rise nontender to palpation Respiratory: Clear to auscultation no wheezes crackles or rubs CV: Rate rhythm is regular no murmurs rubs or clicks Abdomen is soft nontender no masses positive bowel sounds all 4 quadrants Back: No CVA tenderness no spinous process tenderness from cervical spine thoracic and lumbar spine Skin: Intact no petechiae rash induration ulceration or crepitus Extremities: Moving all extremity against resistance cap refill less than 2 seconds neurosensory intact Neuro: Awake alert oriented x3 Glascow coma 15 no focal deficits] Course Quality Measures none Orders Category Date Time Status Transfuse,blood/blood products NOW Care 01/23/24 19:30 Completed Ammonia Stat Lab 01/23/24 15:47 Completed CBC Stat Lab 01/23/24 15:47 Completed CMP [Comprehensive Metabolic Panel] Stat Lab 01/23/24 15:47 Completed PT [Prothrombin Time with INR] Stat Lab 01/23/24 15:47 Completed PTT [Partial Thromboplastin Time] Stat Lab 01/23/24 15:47 Completed Type and Screen Stat Lab 01/23/24 19:33 Completed UA, C/S IF [Urinalysis, C/S if Indicated] Stat Lab 01/23/24 17:20 Completed prbc [Red Blood Cells] Stat Lab 01/23/24 19:33 Completed Lactulose Syrup [Enulose Syrup] Med 01/23/24 19:30 Discontinued 20 gm PO X1 ONE Morphine Inj Med 01/23/24 20:26 Discontinued 4 mg IVP X1 ONE Ondansetron Inj [Zofran Inj] Med 01/23/24 20:26 Discontinued 4 mg IV X1 ONE Vital Signs Vital signs: Vital Signs Temperature 98.3 F 01/23/24 15:32 Pulse Rate 77 01/23/24 15:32 Respiratory Rate 18 01/23/24 15:32 Blood Pressure 110/71 01/23/24 15:32 Pulse Oximetry (%) 100 01/23/24 15:32 Oxygen Delivery Method Room Air 01/23/24 15:[address] [facility] Patient data External records reviewed:: [facility] previous records Clinical information provided by:: patient Social determinants that could affect healthcare access:: none Patient has the following chronic illnesses:: Cirrhosis How is presenting disease/condition affected by chronic disease/condition?: uneffected by Evaluation data The following diagnostics were reviewed and interpreted by me:: lab results and radiology exam(s) Lab and/or radiology exams considered but not ordered:: CBC shows no leukocytosis there is an anemia with a drop of 1/2 g to 7.3 since yesterday. No thrombocytopenia. Coags show an INR of 1.8 CMP shows sodium 140 potassium 3.7 chloride of 109 CO2 of 21.7 BUN of 16 creatinine 0.9 glucose of 132 T. bili of 4.2 AST 50, ALT 25, ALT alk phos of 117 Ammonia of 94, which is decreased from 99 yesterday. Interpretation Summary: Will transfuse the patient with a single unit discharge home. Medications Medications considered but not ordered:: None Medication administrations:: Medication Administration History Discontinued Medications Lactulose (Lactulose Syrup 20 Gm/30 Ml Udc) 20 gm PO X1 ONE; Protocol Stop: 01/23/24 19:31 Last Admin: 01/23/24 19:40 Dose: 20 gm Documented By: KG Morphine Sulfate (Morphine Sulf Inj 10 Mg/Ml Vial) 4 mg IVP X1 ONE Stop: 01/23/24 20:27 Last Admin: 01/23/24 20:56 Dose: 4 mg Documented By: KG Ondansetron HCl (Ondansetron Inj 2 Mg/Ml Inj 2 Ml) 4 mg IV X1 ONE; Protocol Stop: 01/23/24 20:27 Last Admin: 01/23/24 20:55 Dose: 4 mg Documented By: KG None Consultations Consultation(s) initiated? (list below): No Diagnosis Differential Diagnosis ED Complaint MDM: Anemia elevated ammonia level abdominal pain Most likely diagnosis given after review of the tests above:: Anemia elevated ammonia level Admission Indicated Admission indicated?: not indicated Explain why admission is indicated or not indicated:: Stable for discharge Admission Request Was there a request for admission?: No Disposition Plan Disposition Plan: Discharge Discharge Attestation Discharge Attestation: The patient and all family members were given an opportunity to ask questions and understood the discharge instructions. Discharge instructions specifically effects, indications for sooner follow up or return to the emergency department, and the expected course of current diagnosis. Patient condition: Stable Medical Decision Making Differential Diagnosis Differential Diagnosis: Anemia elevated ammonia level abdominal pain Lab Data 01/23/24 15:47 01/23/24 15:47 Labs: Lab Results 01/23/24 01/23/24 01/23/24 Range/Units 15:47 17:20 19:33 WBC 4.7 (3.6-11.0) Thou/mm3 RBC 2.11 L (4.00-5.20) Miln/mm3 Hgb 7.3 L (12.0-16.0) g/dL Hct 22.3 L (36.0-46.0) % MCV 106 H (80-100) fL MCH 34.6 (25.0-35.0) pg MCHC 32.7 (31.0-37.0) g/dl RDW Std Deviation 74.9 H (36.4-46.3) fL Plt Count 54 L (140-440) Thou/mm3 Neut % (Auto) 41 (37-80) % Lymph % (Auto) 42 (10-50) % [place] % (Auto) 12 (0-12) % Eos % (Auto) 4 (0-10) % Baso % (Auto) 1 (0-2.5) % Neut # (Auto) 1.9 (1.8-7.7) Thou/mm3 Lymph # (Auto) 2.0 (1.0-4.8) Thou/mm3 [place] # (Auto) 0.6 (0.0-0.8) Thou/mm3 Eos # (Auto) 0.2 (0.0-0.5) Thou/mm3 Baso # (Auto) 0.0 (0.0-0.2) Thou/mm3 Immature Gran # (Auto) 0.01 H (0.00-0.00) Thou/mm3 Absolute Nucleated RBC 0.00 (0.00-0.00) Thou/mm3 Immature Gran % 0 (0-0) % Nucleated RBC % 0 (0) /100 WBC PT 18.7 H (9.0-12.2) Seconds INR 1.8 H (0.9-1.3) APTT 38.4 H (22.0-36.0) Seconds Sodium 140 (136-145) mMol/L Potassium 3.7 D (3.4-5.1) mMol/L Chloride 109 H (98-107) mMol/L Carbon Dioxide 21.7 (20.0-31.0) mMol/L Anion Gap 9 (7-16) BUN 16 (9-23) mg/dL Creatinine 0.9 (0.6-1.3) mg/dL Estim Creat Clear Calc 61.3 (>60) mL/min eGFR > 60 (60 - ) See Note BUN/Creatinine Ratio 18 (12-20) Ratio Glucose 132 H (74-106) mg/dL Calculated Osmolality 282 (275-295) Calcium 8.3 (8.3-10.6) mg/dL Corrected Calcium 9.4 (8.5-10.1) mg/dL Total Bilirubin 4.2 H D (0.3-1.2) mg/dL AST 50 H (0-34) U/L ALT 25 (10-49) U/L Alkaline Phosphatase 117 H (46-116) U/L Ammonia 94 H* (11-32) uMol/L Total Protein 6.1 (5.7-8.2) gm/dL Albumin 2.6 L (3.5-5.0) gm/dL Globulin 3.5 (2.3-3.5) gm/dL Albumin/Globulin Ratio 0.7 L (1.2-2.2) Ur Collection Type Clean Catch Urine Color Yellow (Lt Yel-Yel) Urine Clarity Turbid A (Clear/Hazy) Urine pH 5.0 (5.0-7.0) Ur Specific [place] 1.015 (1.001-1.035) Urine Protein Trace (Neg - Trace) Urine Glucose (UA) Negative (Negative) Urine Ketones Negative (Negative) Urine Blood 3+ A (Negative) Urine Nitrite Negative (Negative) Urine Bilirubin Negative (Negative) Urine Urobilinogen (Auto) Negative (0.0-1.0) mg/dL Ur Leukocyte Esterase Positive (Negative) Urine RBC 90 H (0-3) /hpf Urine WBC 9 H (0-5) /hpf Ur Squamous Epith Cells 35 H (0-5) /hpf Urine Bacteria None (None) Hyaline Casts < 1 (0-1) /hpf Ur Culture Indicated? Not Indicated Misc Test Result Platelets confirmed Blood Type O Positive Antibody Screen NEGATIVE Crossmatch See Detail Blood Bank Wristband ID Yes Discharge Plan Plan Patient Disposition: HOME (Self Care) Patient condition on transfer: Stable Prescriptions/Referrals Prescriptions/Med Rec: No Action pantoprazole 40 mg tablet,delayed release (DR/EC) 40 mg PO QDAY Qty: 30 0RF methocarbamol 750 mg tablet 750 mg PO BID Patient Comments: TAKE 1 TABLET BY MOUTH TWICE A DAY lidocaine HCl 2 % solution 5 ml PO 6 TIMES DAILY PRN (Reason: Sore Throat) Patient Comments: SWISH AND SPIT OUT 5ML BY MOUTH 6 TIMES A DAY NEEDED ergocalciferol (vitamin D2) 1,250 mcg (50,000 unit) capsule 50,000 unit PO QWEEK Patient Comments: TAKE 1 CAPSULE BY MOUTH ONCE A WEEK Hemorrhoidal Cream 0.25-1 % cream 1 applic OR BID Qty: 28 0RF tramadol 50 mg tablet 50 mg PO Q4HR PRN (Reason: Pain) Patient Comments: TAKE 1 TABLET BY MOUTH EVERY 4 HOURS NEEDED FOR MODERATE PAIN 4-6 FOR 5 DAYS lactulose 20 gram/30 mL solution 20 g PO TID Qty: 3000 0RF (DME) Biatain Adhesive Foam Dressing 5 X 5 bandage See Rx Instructions .Route Qty: 10 0RF Rx Instructions: As directed hydrocortisone acetate [Anusol-HC] 25 mg suppository 25 mg OR QDAY Qty: 7 0RF Rx Instructions: take suppository at night metformin 500 mg tablet 500 mg PO QAM Patient Comments: TAKE 1 TABLET BY MOUTH WITH BREAKFAST Xifaxan 550 mg tablet 550 mg PO BID Patient Comments: TAKE 1 TABLET BY MOUTH TWICE A DAY FOR 1 MONTH midodrine 10 mg tablet 10 mg PO TID Patient Comments: PLEASE SEE ATTACHED FOR DETAILED DIRECTIONS spironolactone 50 mg tablet 50 mg PO QAM 30 Days Qty: 30 1RF ferrous sulfate 325 mg (65 mg iron) tablet 325 mg PO DAILY Patient Comments: TAKE 1 TABLET BY MOUTH DAILY WITH ORANGE JUICE. -DO NOT GIVE CAFFEINE cefuroxime axetil 500 mg Tablet 500 mg PO BID furosemide 20 mg tablet 40 mg PO QAM Referrals: Stacy Graff FNP [Primary Care Provider] - In 1 week Problem List Clinical Impression: Anemia, Increased ammonia level Patient/Caregiver Discharge Instructions Other Activity Instructions:: Continue to take your lactulose as scheduled. Follow-up with your primary care provider. There is a worsening of symptoms in spite of the medications return the emergency room for further evaluation. Education Materials: Anemia Print Language: Spanish Stand Alone Forms: Mervat Award Info., Patient Portal Info Letter PA/[employer] Supervising Physician SOLOMON/[employer] Supervising Physician: Rocky John ENP
[2024-01-23] MEDS: LACTULOSE SYRUP 20 GM/30 ML UDC PO (19:40)
[2024-01-23 19:47] VITALS: BP 129/71; PULSE 72; RESP 18; TEMP 36.6; O2SAT 100
--- NOTE | 2024-01-23 20:13 | PC.NURSE ---
Pt asking for something for pain; provider notified.
[2024-01-23] MEDS: ONDANSETRON INJ 2 MG/ML INJ 2 ML 4 MG IV (20:55)
[2024-01-23] MEDS: MORPHINE SULF INJ 10 MG/ML VIAL 4 MG IVP (20:56)
[2024-01-23 21:27] VITALS: BP 111/64; PULSE 67; RESP 20; TEMP 36.5; O2SAT 100
[2024-01-23 21:45] VITALS: BP 109/66; PULSE 60; RESP 17; TEMP 36.5; O2SAT 100
[2024-01-23 22:00] VITALS: BP 129/73; PULSE 64; RESP 18; TEMP 36.6; O2SAT 100
[2024-01-23 23:00] VITALS: BP 105/65; PULSE 61; RESP 19; TEMP 36.6; O2SAT 98
[2024-01-24 00:23] VITALS: BP 113/68; PULSE 57; RESP 18; TEMP 36.4; O2SAT 99
[2024-01-24 00:27] VITALS: BP 113/68; PULSE 66; RESP 18; O2SAT 100
[2024-01-24 01:02] VITALS: BP 110/65; PULSE 66; RESP 18; TEMP 36.5; O2SAT 97
[2024-01-24 01:26] VITALS: BP 110/65; PULSE 66; RESP 18; O2SAT 100
== END 2024-01-24 01:28 | disposition home or self-care (01) ==
PROVIDERS: Physician Assistant; Emergency Provider Emergency Medicine; PCP Nurse Practitioner Family
DX: D64.9 Anemia, unspecified (principal); R79.89 Other specified abnormal findings of blood chemistry
CPT/HCPCS: 36415; 36430; 80053; 81001; 82140; 85025; 85610; 85730; 86850; 86900; 86901; 86923; 96374; 96375; 99285; J2270; J2405; P9016; A9270

== ENCOUNTER 2024-01-27 11:17 | Inpatient (IN) | payer MEDICAID, SELFPAY ==
[2024-01-27] VITALS (13 sets, daily range): BP systolic 81–97; BP diastolic 41–63; PULSE 48–56; RESP 12–20; TEMP 36.1–36.7; O2SAT 97–100; BMI 23.2
--- NOTE | 2024-01-27 11:32 | EKG_ITS ---
[facility] Test Date: 2024-01-27 Pat Name: SHANNON ORTIZ Department: Room: - Gender: Female [employer] Axle: : 1970 Requested By: Ziggy Henriquez Order Number: [id number] Reading MD: Ziggy Henriquez Measurements Intervals [place] Rate: 53 P: 14 UT: 132 QRS: 14 QRSD: 87 T: 3 QT: 462 QTc: 434 Interpretive Statements SINUS BRADYCARDIA LOW QRS VOLTAGE IN PRECORDIAL LEADS [QRS DEFLECTION < 1.0 mV IN CHEST LEADS] POSSIBLE ANTERIOR MYOCARDIAL INFARCTION , PROBABLY OLD [30 ms Q WAVE IN V3/V4, OR R < 0.2 mV IN V4] Compared to ECG 01/22/2024 09:25:48 Low QRS voltage now present Myocardial infarct finding now present /store/S0/[id number].pdf
--- NOTE | 2024-01-27 11:33 | PD.EDRME ---
Rapid Medical Screening Exam E Arrival date/time: 01/27/24 11:17 Chief Complaint: Nausea/Vomiting/Diarrhea Vital signs: Vital Signs Temperature 98.1 F 01/27/24 11:36 Pulse Rate 51 L 01/27/24 11:36 Respiratory Rate 20 01/27/24 11:36 Blood Pressure 96/63 01/27/24 11:36 Pulse Oximetry (%) 100 01/27/24 11:36 Oxygen Delivery Method Room Air 01/27/24 11:36 E Narrative: N/V with blood tinged emesis started this morning. Reports upper abdominal pain. hx cirrhosis
[2024-01-27 12:41] LABS: Basophils # (Auto) 0.1 Thou/mm3 (0.0-0.2); Basophils % (Auto) 1 % (0-2.5); Eosinophils # (Auto) 0.3 Thou/mm3 (0.0-0.5); Eosinophils % (Auto) 4 % (0-10); Hematocrit 27.3 % (36.0-46.0); Immature Granulocytes % (Auto) 0 % (0-0); Immature Granulocytes Auto 0.02 Thou/mm3 (0.00-0.00); Lymphocytes # (Auto) 2.3 Thou/mm3 (1.0-4.8); Lymphocytes % (Auto) 35 % (10-50); Mean Corpuscular Hemoglobin 33.5 pg (25.0-35.0); Mean Corpuscular Volume 102 fL (80-100); Monocytes # (Auto) 0.7 Thou/mm3 (0.0-0.8); Monocytes % (Auto) 10 % (0-12); Neutrophils # (Auto) 3.1 Thou/mm3 (1.8-7.7); Neutrophils % (Auto) 49 % (37-80); Nucleated Red Blood Cell % 0 /100 WBC (0); RDW Standard Deviation 83.3 fL (36.4-46.3); Red Blood Count 2.69 Miln/mm3 (4.00-5.20); White Blood Count 6.4 Thou/mm3 (3.6-11.0)
[2024-01-27 12:58] LABS: Alanine Aminotransferase 25 U/L (10-49); Albumin, Serum 2.5 gm/dL (3.5-5.0); Albumin/Globulin Ratio 0.7 (1.2-2.2); Alkaline Phosphatase 138 U/L (46-116); Anion Gap 3 (7-16); Aspartate Amino Transferase 43 U/L (0-34); BUN/Creatinine Ratio 13 Ratio (12-20); Bilirubin,Total 4.5 mg/dL (0.3-1.2); Blood Urea Nitrogen 14 mg/dL (9-23); Calcium 8.2 mg/dL (8.3-10.6); Calcium (Corrected) 9.4 mg/dL (8.5-10.1); Carbon Dioxide 26.5 mMol/L (20.0-31.0); Chloride 109 mMol/L (98-107); Creatinine (Component) 1.1 mg/dL (0.6-1.3); Estimated Creatinine Clearance 44.2 mL/min (>60); Globulin 3.5 gm/dL (2.3-3.5); Glucose 119 mg/dL (74-106); INR 1.8 (0.9-1.3); Lipase 37 U/L (12-53); Osmolality,Calculated 277 (275-295); Partial Thromboplastin Time 39.2 Seconds (22.0-36.0); Platelet Count 69 Thou/mm3 (140-440); Potassium 4.1 mMol/L (3.4-5.1); Prothrombin Time 18.8 Seconds (9.0-12.2); Sodium 138 mMol/L (136-145); Troponin I < 0.020 ng/mL (0.0-0.045); eGFR > 60 See Note
[2024-01-27 13:19] LABS: Slide Review Platelets confirmed
[2024-01-27 15:02] LABS: Ammonia 200 uMol/L (11-32)
--- NOTE | 2024-01-27 15:43 | EDNOTE_ITS ---
Nausea/Vomit./Diarrhea-RME/HPI General Chief complaint: Nausea/Vomiting/Diarrhea Stated complaint: Vomiting blood this morning Time Seen by Provider: 01/27/24 15:36 Arrival date/time: 01/27/24 11:17 RME / HPI RME / HPI Narrative: 53 yr female with PMH of decompensated liver cirrhosis, alcohol use disorder , last alcohol use was 6 months ago type 2 diabetes, recent admissionthis first week January due to upper GI bleed, was brought in by family for vomiting blood earlier today. Patient was also noted to be lethargic for the last 2 days, according to the family patient's been taking her lactulose 20 grams 3 times a day with good compliance. Patient answers simple questions. Patient denies any abdominal pain. Denies any other complaints. No medication was taken prior travel. In the triage patient's blood pressure was noted to be 96/63. Related Data Home Medications ?Medication ?Instructions ?Recorded ?Confirmed ergocalciferol (vitamin D2) 1,250 50,000 unit PO QWEEK 09/15/23 01/22/24 mcg (50,000 unit) capsule lidocaine HCl 2 % mucosal solution 5 ml PO 6 TIMES DAILY PRN Sore 09/15/23 01/22/24 Throat methocarbamol 750 mg tablet 750 mg PO BID 09/15/23 01/22/24 tramadol 50 mg tablet 50 mg PO Q4HR PRN Pain 10/20/23 01/22/24 metformin 500 mg tablet 500 mg PO QAM 01/12/24 01/22/24 midodrine 10 mg tablet 10 mg PO TID 01/12/24 01/22/24 rifaximin 550 mg tablet (Xifaxan) 550 mg PO BID 01/12/24 01/22/24 cefuroxime axetil 500 mg tablet 500 mg PO BID 01/22/24 01/22/24 ferrous sulfate 325 mg (65 mg 325 mg PO DAILY 01/22/24 01/22/24 iron) tablet furosemide 20 mg tablet 40 mg PO QAM 01/22/24 01/22/24 Previous Rx's ?Medication ?Instructions ?Recorded phenylephrine 0.25 %-pramoxine 1 1 applic DC BID #28 grams 09/19/23 %-glycerin-wh.petrolatum rectal cream (Hemorrhoidal Cream) pantoprazole 40 mg tablet,delayed 40 mg PO QDAY #30 tabs 10/15/23 release foam bandage 5 X 5 (Biatain #10 ea 10/25/23 Adhesive Foam Dressing) lactulose 20 gram/30 mL oral 20 g (30 mL) PO TID #3,000 mL 10/25/23 solution hydrocortisone acetate 25 mg 25 mg DC QDAY #7 ea 11/02/23 rectal suppository (Anusol-HC) spironolactone 50 mg tablet 50 mg PO QAM 30 days #30 tabs 01/17/24 Allergies Allergy/AdvReac Type Severity Reaction Status Date / Time latex Allergy Severe Hives Verified 01/23/24 15:24 Review of Systems Review of Systems Narrative Review of Systems: Review of system reviewed and within normal limits except mentioned in HPI ED Exam Narrative Physical exam: VITAL SIGNS: Reviewed. GENERAL APPEARANCE: Alert and interactive, follows simple commands, no acute distress, HEAD AND FACE: Non-traumatic. ENT: PERRL, pale conjunctiva eyelid no trauma, Mucous membrane moist. NECK: Supple, nontender, no nuchal rigidity. CHEST: No tenderness, no crepitus, no paradoxical movement, no retractions. LUNGS: Clear, well ventilated, symmetric, no rales, no wheezing, no ronchi, no stridor, good breath sounds bilaterally. HEART: Regular rate, regular rhythm, no murmur, no gallops. ABDOMEN: Soft, positive bowel sounds, nondistended, no guarding, nontender, no rebound, no masses, RECTAL: Deferred. GENITAL: Deferred. NEUROLOGICAL: Gross motor function intact sensory function intact, Appropriate for age. MUSCULOSKELETAL: low back nontender, full range of motion. EXTREMITIES: Nontender, full range of motion. SKIN: Color pale, dry, no rash, no lacerations, no abrasions, no contusions. LYMPHATICS: Deferred. Course Quality Measures none Orders Category Date Time Status COVID-19 Screening Questionnaire NOW Care 01/27/24 15:58 Active Decision to Admit X1 Care 01/27/24 15:58 Active EKG (ED ONLY) *Do not use* NOW Care 01/27/24 11:33 Completed Transfuse,blood/blood products ONCE Care 01/27/24 15:53 Active Consult to Gastroenterology Stat Cons 01/27/24 15:49 Ordered EKG (ED Only) Stat Exams 01/27/24 11:32 Draft Ammonia Stat Lab 01/27/24 13:50 Completed CBC Stat Lab 01/27/24 12:14 Completed CMP [Comprehensive Metabolic Panel] Stat Lab 01/27/24 12:14 Completed Lipase Stat Lab 01/27/24 12:14 Completed Partial Thromboplastin Time Stat Lab 01/27/24 12:14 Completed Prothrombin Time with INR Stat Lab 01/27/24 12:14 Completed Troponin I Stat Lab 01/27/24 12:14 Completed Type and Screen Stat Lab 01/27/24 15:49 Ordered UA [Urinalysis] Stat Lab 01/27/24 11:33 Ordered prbc [Red Blood Cells] Stat Lab 01/27/24 15:49 Ordered Lactulose Syrup [Enulose Syrup] Med 01/27/24 15:51 Discontinued 30 gm PO X1 ONE Octreotide Acet Inj [SandoSTATIN Inj] Med 01/27/24 15:49 Discontinued 50 mcg IV X1 ONE Pantoprazole Inj [Protonix Inj] Med 01/27/24 15:51 Discontinued 80 mg IV X1 ONE Sodium Chloride 0.9% 1000 ml [Ns] 1,000 ml Med 01/27/24 15:51 Active IV 999 mls/hr Sodium Chloride 0.9% [Ns] 100 ml Med 01/27/24 16:00 Active Octreotide Acet Inj [SandoSTATIN Inj] 1,000 mcg IV 50 mcg/hr Sodium Chloride 0.9% [Ns] 100 ml Med 01/28/24 11:59 Pending Octreotide Acet Inj [SandoSTATIN Inj] 1,000 mcg IV 50 mcg/hr Vital Signs Vital signs: Vital Signs Temperature 98.1 F 01/27/24 11:36 Pulse Rate 51 L 01/27/24 11:36 Respiratory Rate 20 01/27/24 11:36 Blood Pressure 96/63 01/27/24 11:36 Pulse Oximetry (%) 100 01/27/24 11:36 Oxygen Delivery Method Room Air 01/27/24 11:36 Nausea/Vomiting/Diarrhea MDM Narrative MDM Narrative:: 53 yr female with PMH of decompensated liver cirrhosis, alcohol use disorder , last alcohol use was 6 months ago type 2 diabetes, recent admissionthis first week January due to upper GI bleed, was brought in by family for vomiting blood earlier today. Patient was also noted to be lethargic for the last 2 days, according to the family patient's been taking her lactulose 20 grams 3 times a day with good compliance. Patient answers simple questions. Patient denies any abdominal pain. Denies any other complaints no medication was taken prior travel. In the triage patient's blood pressure was noted to be 96/63. Majority of the information extracted from her daughter. Patient is ammonia level today was noted to be 200, CBC showed hemoglobin of 9.0, hematocrit of 27.3%, platelet count is only 69. Patient received IV fluids, IV Sandostatin, Sandostatin drip, IV Protonix, and blood transfusion. Spoke with Dr. Culp, patient's GI specialist, and agrees to see the patient in the floor. Thank you Dr. Clup Spoke with hospitalist, Dr. Hernandes, who admitted the patient, Patient data External records reviewed:: None Clinical information provided by:: patient Social determinants that could affect healthcare access:: none Patient has the following chronic illnesses:: Liver cirrhosis, history of esophageal varices, recent admission for upper GI bleed, hepatic encephalopathy, How is presenting disease/condition affected by chronic disease/condition?: exacerbated by Evaluation data The following diagnostics were reviewed and interpreted by me:: lab results, radiology exam(s) and EKG tracing(s) Lab and/or radiology exams considered but not ordered:: None Interpretation Summary: EKG as interpreted by me shows sinus bradycardia, ventricular rate of 53 bpm, DC interval 132 MS, no ST segment elevation depression noted. Patient's workup today significant for ammonia level 200, hemoglobin 9.0. Elevated PTT INR and APTT. Total bili was also elevated 4.5, AST of 43, alkaline phos of 138. Medications / Prescriptions Medications / Prescriptions considered but not ordered:: None Medication administrations:: Medication Administration History Octreotide Acetate 1,000 mcg/ (Sodium Chloride) 102 mls @ 5.1 mls/hr IV .Q20H CELINA; Protocol Stop: 02/01/24 15:58 Octreotide Acetate 1,000 mcg/ (Sodium Chloride) 102 mls @ 5.1 mls/hr IV .Q20H ONE; Protocol Stop: 01/28/24 11:59 Sodium Chloride (Ns) 1,000 mls @ 999 mls/hr IV .Q1H1M ONE Stop: 01/27/24 16:51 Discontinued Medications Lactulose (Lactulose Syrup 20 Gm/30 Ml Udc) 30 gm PO X1 ONE; Protocol Stop: 01/27/24 15:52 Octreotide Acetate (Octreotide Acet Inj 50 Mcg/Ml Vial) 50 mcg IV X1 ONE Stop: 01/27/24 15:50 Pantoprazole Sodium (Pantoprazole Inj 40 Mg Vial) 80 mg IV X1 ONE Stop: 01/27/24 15:52 Sandostatin IV IV drip, IV fluids for hydration, lactulose, pantoprazole IV, and blood transfusion Consultations Consultation(s) initiated? (list below): Yes Consultation #1 (Physician, Specialty, Details): Spoke with Dr. Culp, GI specialist on-call, and thank you Dr. Culp Diagnosis Nausea Differential Diagnosis: gastroenteritis and other (Elevated ammonia level, upper GI bleed, anemia, liver cirrhosis) Most likely diagnosis given after review of the tests above:: Lethargy, secondary to elevated ammonia level, upper GI bleed, liver cirrhosis, anemia Admission Indicated Admission indicated?: indicated Explain why admission is indicated or not indicated:: Patient is to be admitted for further management Admission Request Was there a request for admission?: Yes Admission Attestation Admission request attestation: Discussed case with [] from Hospitalist service regarding admission. Discussed patients ED course, exam findings, labs, and radiology results. The Hospitalist [agrees,declines] to accept the patient for admission. Disposition Plan Disposition Plan: Admit Discharge Plan Plan Patient Disposition: Admit Acute Care w/in Hospital Disposition Comment: guarded Prescriptions/Referrals Prescriptions/Med Rec: No Action pantoprazole 40 mg tablet,delayed release (DR/EC) 40 mg PO QDAY Qty: 30 0RF methocarbamol 750 mg tablet 750 mg PO BID Patient Comments: TAKE 1 TABLET BY MOUTH TWICE A DAY lidocaine HCl 2 % solution 5 ml PO 6 TIMES DAILY PRN (Reason: Sore Throat) Patient Comments: SWISH AND SPIT OUT 5ML BY MOUTH 6 TIMES A DAY NEEDED ergocalciferol (vitamin D2) 1,250 mcg (50,000 unit) capsule 50,000 unit PO QWEEK Patient Comments: TAKE 1 CAPSULE BY MOUTH ONCE A WEEK Hemorrhoidal Cream 0.25-1 % cream 1 applic DC BID Qty: 28 0RF tramadol 50 mg tablet 50 mg PO Q4HR PRN (Reason: Pain) Patient Comments: TAKE 1 TABLET BY MOUTH EVERY 4 HOURS NEEDED FOR MODERATE PAIN 4-6 FOR 5 DAYS lactulose 20 gram/30 mL solution 20 g PO TID Qty: 3000 0RF (DME) Biatain Adhesive Foam Dressing 5 X 5 bandage See Rx Instructions .Route Qty: 10 0RF Rx Instructions: As directed hydrocortisone acetate [Anusol-HC] 25 mg suppository 25 mg DC QDAY Qty: 7 0RF Rx Instructions: take suppository at night metformin 500 mg tablet 500 mg PO QAM Patient Comments: TAKE 1 TABLET BY MOUTH WITH BREAKFAST Xifaxan 550 mg tablet 550 mg PO BID Patient Comments: TAKE 1 TABLET BY MOUTH TWICE A DAY FOR 1 MONTH midodrine 10 mg tablet 10 mg PO TID Patient Comments: PLEASE SEE ATTACHED FOR DETAILED DIRECTIONS spironolactone 50 mg tablet 50 mg PO QAM 30 Days Qty: 30 1RF ferrous sulfate 325 mg (65 mg iron) tablet 325 mg PO DAILY Patient Comments: TAKE 1 TABLET BY MOUTH DAILY WITH ORANGE JUICE. -DO NOT GIVE CAFFEINE cefuroxime axetil 500 mg Tablet 500 mg PO BID furosemide 20 mg tablet 40 mg PO QAM Referrals: Stacy Graff FNP [Primary Care Provider] - In 1 week Problem List Clinical Impression: Cirrhosis, Acute GI bleeding, Increased ammonia level Patient/Caregiver Discharge Instructions Print Language: Divehi Stand Alone Forms: [facility] Award Info., Patient Portal Info Letter
[2024-01-27] MEDS: SODIUM CHLORIDE 0.9% 1000 ML 1,000 ML 999 ML IV (16:32)
[2024-01-27] MEDS: PANTOPRAZOLE INJ 40 MG VIAL 80 MG IV (16:34)
[2024-01-27] MEDS: OCTREOTIDE ACET INJ 50 mCg/ML VIAL IV (16:38)
[2024-01-27] MEDS: LACTULOSE SYRUP 20 GM/30 ML UDC 30 GM PO ×2 (16:38→23:09)
[2024-01-27] MEDS: ONDANSETRON INJ 2 MG/ML INJ 2 ML 4 MG IV (16:46)
[2024-01-27] MEDS: OCTREOTIDE ACET INJ 1,000 MCG in SODIUM CHLORIDE 0.9% 100 ML 5.1 MCG IV (16:50)
[2024-01-27] MEDS: cefTRIAXone 2 GM in SODIUM CHLORIDE 0.9% (P) 50 ML IV (16:57)
--- NOTE | 2024-01-27 17:00 | PD.HHHP ---
Documentation for date of: 01/27/24 HPI - Hospitalist History of Present Illness History of present illness: Patient is a 53-year-old female with history of alcoholic liver cirrhosis, history of GI bleed, who presented with a chief complaint of altered mental status and hematemesis. History was taken mainly from the daughter at the bedside and partially from the patient. Patient was in her usual state of health until the day prior to admission. Over the last 24 hours, she started to have vomiting that started clear then had an episode of hematemesis on the day of admission. No reports of melena. Patient takes lactulose and rifaximin for her liver disease. She reported no diarrhea. Per daughter, she described the altered mental status as being slow, confused, and disoriented. She brought her mom to the ED. In the ED, patient was hypotensive however BP improved to 102/52 after receiving a bolus of IV fluids. Her hemoglobin was 9.0. Platelets 69. INR 1.8. Ammonia level was 200. Patient received p.o. lactulose. She was started on IV Protonix and IV octreotide. She was admitted for further evaluation and management. Past medical history: As above. Medications: Prior medication records were reviewed. The daughter reported no allergies however per medical records, she has allergy to latex which is hives Social history: Stopped alcohol drinking 6 months ago. No current tobacco or illicit drug use Surgical history: Positive for 2 C-sections and appendectomy Family history: Positive for diabetes and hypertension. Negative for liver disease Review of Systems Review of Systems ROS Unobtainable: unobtainable due to mental status Meds Home Medications and Allergies Home Medications ?Medication ?Instructions ?Recorded ?Confirmed ?Type ergocalciferol (vitamin D2) 1,250 50,000 unit PO QWEEK 09/15/23 01/22/24 History mcg (50,000 unit) capsule lidocaine HCl 2 % mucosal solution 5 ml PO 6 TIMES DAILY PRN Sore 09/15/23 01/22/24 History Throat methocarbamol 750 mg tablet 750 mg PO BID 09/15/23 01/22/24 History tramadol 50 mg tablet 50 mg PO Q4HR PRN Pain 10/20/23 01/22/24 History metformin 500 mg tablet 500 mg PO QAM 01/12/24 01/22/24 History midodrine 10 mg tablet 10 mg PO TID 01/12/24 01/22/24 History rifaximin 550 mg tablet (Xifaxan) 550 mg PO BID 01/12/24 01/22/24 History cefuroxime axetil 500 mg tablet 500 mg PO BID 01/22/24 01/22/24 History ferrous sulfate 325 mg (65 mg 325 mg PO DAILY 01/22/24 01/22/24 History iron) tablet furosemide 20 mg tablet 40 mg PO QAM 01/22/24 01/22/24 History Allergies Allergy/AdvReac Type Severity Reaction Status Date / Time latex Allergy Severe Hives Verified 01/23/24 15:24 Exam Vital Signs Temp Pulse Resp BP Pulse Ox O2 Del Method 96.9 F 51 L 12 84/50 L 100 Room Air 01/27/24 15:56 01/27/24 15:46 01/27/24 15:46 01/27/24 15:46 01/27/24 15:46 01/27/24 15:46 Narrative General: Alert and oriented to self only. Appears confused. Pale. In no acute distress. Eyes: Pupils are equal and reactive to light bilaterally. HEENT: Atraumatic, normocephalic. No JVD noted. Cardiovascular: Normal S1 and S2. Borderline bradycardic but regular rhythm. No murmurs appreciated. No peripheral pitting edema noted. No JVD noted. Respiratory: No respiratory distress. Lungs are clear to auscultation bilaterally. No wheezing or crackles heard. Abdomen: Soft, nontender, mild abdominal distention. Skin: No rash. Pale. Musculoskeletal: No gross injuries. Able to move all 4 extremities. Neuro: Alert and oriented x3. Sensation is intact throughout. Strength is 5/5 and symmetric. No focal neuro deficits. Psych: Normal affect and mood. Results - Hospitalist Labs Diagrams: 01/27/24 12:14 01/27/24 12:14 Labs: Short CBC 01/27/24 Range/Units 12:14 WBC 6.4 (3.6-11.0) Thou/mm3 Hgb 9.0 L D (12.0-16.0) g/dL Hct 27.3 L (36.0-46.0) % Plt Count 69 L D (140-440) Thou/mm3 BMP 01/27/24 12:14 Sodium 138 Potassium 4.1 Chloride 109 H Carbon Dioxide 26.5 BUN 14 Creatinine 1.1 Glucose 119 H Calcium 8.2 L Cardiac Enzymes 01/27/24 Range/Units 12:14 Troponin I < 0.020 (0.0-0.045) ng/mL Liver Function 01/27/24 Range/Units 12:14 Total Bilirubin 4.5 H (0.3-1.2) mg/dL AST 43 H (0-34) U/L ALT 25 (10-49) U/L Alkaline Phosphatase 138 H (46-116) U/L Albumin 2.5 L (3.5-5.0) gm/dL Assessment & Plan -Hospitalist Patient Synopsis 53-year-old female with alcoholic cirrhosis who presented with altered mental status and upper GI bleed. Acute encephalopathy Hepatic encephalopathy In the setting of alcoholic liver cirrhosis. Ammonia level was 200 on presentation. Plan: Started p.o. lactulose 30 mg 3 times daily. Monitor for bowel movements. Goal is 3 or less BM in 24 hours. Started rifaximin. Upper GI bleed In the setting of prior history of GI bleed She had an EGD done in December 2023 that showed gastritis with bleed and esophageal varices without bleed In the setting of known history of alcoholic liver cirrhosis Plan: Started IV Protonix Started IV octreotide Monitor H&H Consulted GI. NPO. Alcoholic liver cirrhosis No recent alcohol use. Decompensated. Management as above. Follow-up with liver transplant team as outpatient. Thrombocytopenia Platelets level is 69. Transfuse FFP in case platelets is 50 or less. Monitor platelet level. Avoid anticoagulation and antiplatelet treatment. CODE STATUS is full code DVT prophylaxis: Subcutaneous heparin Admitting to telemetry for management of GI bleed Diet is n.p.o. given the altered mental status, pending EGD Quality Measures Quality Measures VTE prophylaxis (SCDs)
[2024-01-27] MEDS: oxyCODONE/APAP 5/325 TABLET 1 TAB PO (17:04)
--- NOTE | 2024-01-27 20:51 | PD.IMCONS ---
HPI Data of Consult Requesting Physician: Paras Morrison MD Primary Care Provider: LETI Catherine Consult Narrative Reason for consult: Hematemesis, ALOC History of present illness: No history obtainable from the patient 53 years of female evaluated at the request of the PAPER SAMPLE CLERK/PA from the emergency room as she presented there with bout of hematemesis and altered mental status Presenting hemoglobin hematocrit 9.0 and 27.3 with a platelet count of 69,000 and pro time INR 1.8 Ammonia level was 200 Patient does have a history of chronic liver disease secondary to alcohol and had previous admission in earlier part of January when she underwent fiberoptic upper endoscopy with band ligation of the esophageal varices Patient has not drank alcohol for over 6 months cc:: cc: Paras Morrison MD Review of Systems Review of Systems ROS Unobtainable: unobtainable due to medical condition Past Medical History Surgical History OTHER SURGICAL HX: As in the history of present illness Meds Home Medications and Allergies Home Medications ?Medication ?Instructions ?Recorded ?Confirmed ?Type ergocalciferol (vitamin D2) 1,250 50,000 unit PO QWEEK 09/15/23 01/22/24 History mcg (50,000 unit) capsule lidocaine HCl 2 % mucosal solution 5 ml PO 6 TIMES DAILY PRN Sore 09/15/23 01/22/24 History Throat methocarbamol 750 mg tablet 750 mg PO BID 09/15/23 01/22/24 History tramadol 50 mg tablet 50 mg PO Q4HR PRN Pain 10/20/23 01/22/24 History metformin 500 mg tablet 500 mg PO QAM 01/12/24 01/22/24 History midodrine 10 mg tablet 10 mg PO TID 01/12/24 01/22/24 History rifaximin 550 mg tablet (Xifaxan) 550 mg PO BID 01/12/24 01/22/24 History cefuroxime axetil 500 mg tablet 500 mg PO BID 01/22/24 01/22/24 History ferrous sulfate 325 mg (65 mg 325 mg PO DAILY 01/22/24 01/22/24 History iron) tablet furosemide 20 mg tablet 40 mg PO QAM 01/22/24 01/22/24 History Allergies Allergy/AdvReac Type Severity Reaction Status Date / Time latex Allergy Severe Hives Verified 01/23/24 15:24 Exam Vital Signs Temp Pulse Resp BP Pulse Ox O2 Del Method 97.6 F 50 L 14 81/41 L 100 Room Air 01/27/24 20:39 01/27/24 20:39 01/27/24 20:39 01/27/24 20:39 01/27/24 20:39 01/27/24 20:39 Constitutional Comments: Chronically ill-appearing Routine HEENT Exam Comments: Icteric sclera Routine Respiratory Exam Comments: Normal to auscultation Routine Abdominal Exam Comments: Positive bowel sounds Results Labs 01/27/24 12:14 01/27/24 12:14 Labs: Short CBC 01/27/24 Range/Units 12:14 WBC 6.4 (3.6-11.0) Thou/mm3 Hgb 9.0 L D (12.0-16.0) g/dL Hct 27.3 L (36.0-46.0) % Plt Count 69 L D (140-440) Thou/mm3 BMP 01/27/24 12:14 Sodium 138 Potassium 4.1 Chloride 109 H Carbon Dioxide 26.5 BUN 14 Creatinine 1.1 Glucose 119 H Calcium 8.2 L Cardiac Enzymes 01/27/24 Range/Units 12:14 Troponin I < 0.020 (0.0-0.045) ng/mL Liver Function 01/27/24 Range/Units 12:14 Total Bilirubin 4.5 H (0.3-1.2) mg/dL AST 43 H (0-34) U/L ALT 25 (10-49) U/L Alkaline Phosphatase 138 H (46-116) U/L Albumin 2.5 L (3.5-5.0) gm/dL Assessment and Plan Additional Assessment & Plan Additional Plan: # Acute upper GI bleed most likely secondary to esophageal variceal bleeding or hypertensive portal gastropathy leading to mucosal oozing of blood Plan N.p.o. Octreotide infusion at 50 mcg/h serial CBC Transfuse if the hemoglobin drops below 7 g We will consider doing a fiberoptic upper endoscopy once patient mental status improves #Acute hepatic encephalopathy Recommend lactulose and Xifaxan Will follow the patient Thank you very much for the opportunity to participate in the care of this patient
[2024-01-27] MEDS: PANTOPRAZOLE INJ 40 MG VIAL IV (21:22)
[2024-01-27] MEDS: MIDODRINE 5 MG TABLET 10 MG PO (23:08)
[2024-01-27] MEDS: rifaximin 550 MG TABLET PO (23:08)
[2024-01-28] VITALS (13 sets, daily range): BP systolic 94–127; BP diastolic 51–74; PULSE 43–60; RESP 12–23; TEMP 36.1–36.4; O2SAT 96–100; BMI 32.5; BMI 32.4
[2024-01-28 06:41] LABS: Basophils % (Auto) 1 % (0-2.5); Eosinophils # (Auto) 0.1 Thou/mm3 (0.0-0.5); Eosinophils % (Auto) 4 % (0-10); Hematocrit 33.1 % (36.0-46.0); Immature Granulocytes % (Auto) 0 % (0-0); Immature Granulocytes Auto 0.01 Thou/mm3 (0.00-0.00); Lymphocytes # (Auto) 1.3 Thou/mm3 (1.0-4.8); Lymphocytes % (Auto) 40 % (10-50); Mean Corpuscular HGB Conc 33.2 g/dl (31.0-37.0); Mean Corpuscular Hemoglobin 32.4 pg (25.0-35.0); Mean Corpuscular Volume 97 fL (80-100); Monocytes # (Auto) 0.3 Thou/mm3 (0.0-0.8); Monocytes % (Auto) 9 % (0-12); Neutrophils # (Auto) 1.5 Thou/mm3 (1.8-7.7); Neutrophils % (Auto) 46 % (37-80); Nucleated Red Blood Cell % 0 /100 WBC (0); RDW Standard Deviation 78.6 fL (36.4-46.3); White Blood Count 3.3 Thou/mm3 (3.6-11.0)
[2024-01-28 07:02] LABS: Platelet Count 42 Thou/mm3 (140-440)
[2024-01-28 07:07] LABS: Alanine Aminotransferase 23 U/L (10-49); Albumin, Serum 2.3 gm/dL (3.5-5.0); Albumin/Globulin Ratio 0.7 (1.2-2.2); Alkaline Phosphatase 104 U/L (46-116); Anion Gap 3 (7-16); Aspartate Amino Transferase 43 U/L (0-34); BUN/Creatinine Ratio 15 Ratio (12-20); Bilirubin,Total 6.2 mg/dL (0.3-1.2); Blood Urea Nitrogen 15 mg/dL (9-23); Calcium (Corrected) 9.4 mg/dL (8.5-10.1); Carbon Dioxide 24.7 mMol/L (20.0-31.0); Chloride 112 mMol/L (98-107); Estimated Creatinine Clearance 57.3 mL/min (>60); Globulin 3.4 gm/dL (2.3-3.5); Glucose 121 mg/dL (74-106); Magnesium 1.9 mg/dL (1.6-2.6); Osmolality,Calculated 281 (275-295); Potassium 4.2 mMol/L (3.4-5.1); Sodium 140 mMol/L (136-145); Total Protein 5.7 gm/dL (5.7-8.2); eGFR > 60 See Note
[2024-01-28] MEDS: oxyCODONE/APAP 5/325 TABLET 1 TAB PO ×2 (07:23→22:09)
[2024-01-28 08:14] LABS: Slide Review Platelets confirmed
[2024-01-28] MEDS: cefTRIAXone 2 GM in SODIUM CHLORIDE 0.9% (P) 50 ML IV (09:46)
[2024-01-28] MEDS: PANTOPRAZOLE INJ 40 MG VIAL IV ×2 (09:47→21:58)
[2024-01-28] MEDS: rifaximin 550 MG TABLET PO ×2 (09:48→21:58)
--- NOTE | 2024-01-28 11:23 | PD.ADDPROG ---
Addendum Progress Note Addendum Date of report being addended: 01/28/24 Narrative: Attending's attestation: I reviewed labs, imaging, EKG, home medications and prior available records. Face to face evaluation was performed by me. I have personally examined the patient and discussed assessment and plan with the IM team. I reviewed the resident note and agree with the plan with exceptions as below. 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 Monitor BP. Mental status improved. Continue lactulose and rifaximin. Monitor for BMs. Status post 2 PRBC transfusion. H&H improved. Monitor H&H. Consulted GI: Recommended EGD. N.p.o. prior to the procedure. Monitor CBC. Monitor for bleeding.
[2024-01-28] MEDS: OCTREOTIDE ACET INJ 1,000 MCG in SODIUM CHLORIDE 0.9% 100 ML 5.1 MCG IV (12:35)
--- NOTE | 2024-01-28 14:14 | PD.RESPRO ---
Documentation for date of: 01/28/24 Subjective Subjective Interval history: Patient was seen and examined bedside. Sitting on the bed comfortably. Noted gross icterus. Responding to questions appropriately. Had 2 bowel movements as of this morning. Stated that she is feeling depressed. Patient is scheduled to get upper GI endoscopy by Dr. Robbi leblanc. Will continue octreotide drip for 5 days Exam Vital Signs Temp Pulse Resp BP Pulse Ox O2 Del Method 97.5 F 51 L 16 109/62 99 Room Air 01/28/24 12:00 01/28/24 12:00 01/28/24 12:01/28/24 12:00 01/28/24 12:01/28/24 08:00 Narrative Exam General: Awake.icteric HEENT: Normocephalic, atraumatic, mucous membranes moist. Heart: Regular rate and rhythm, no murmurs. Lungs: Clear to auscultation with no wheezing or crackles. Abdomen: Soft, nondistended, mild tenderness in RUQ, positive bowel sounds. ?No guarding or rebound tenderness. Neurologic: Alert and oriented x3, no gross neurological deficit, and patient able to move all 4 extremities. Extremities: No edema. Skin: No rash. ecchymoses from catheterisation Objective Labs 01/30/24 04:52 01/30/24 04:52 Labs: Laboratory Results - last 24 hr 01/27/24 01/27/24 01/28/24 13:50 16:20 06:09 WBC 3.3 L D RBC 3.40 L Hgb 11.0 L D Hct 33.1 L MCV 97 MCH 32.4 MCHC 33.2 RDW Std Deviation 78.6 H Plt Count 42 L D Neut % (Auto) 46 Lymph % (Auto) 40 [place] % (Auto) 9 Eos % (Auto) 4 Baso % (Auto) 1 Neut # (Auto) 1.5 L Lymph # (Auto) 1.3 [place] # (Auto) 0.3 Eos # (Auto) 0.1 Baso # (Auto) 0.0 Immature Gran # (Auto) 0.01 H Absolute Nucleated RBC 0.00 Immature Gran % 0 Nucleated RBC % 0 Sodium 140 Potassium 4.2 Chloride 112 H Carbon Dioxide 24.7 Anion Gap 3 L BUN 15 Creatinine 1.0 Estim Creat Clear Calc 57.3 L eGFR > 60 BUN/Creatinine Ratio 15 Glucose 121 H Calculated Osmolality 281 Calcium 8.0 L Corrected Calcium 9.4 Magnesium 1.9 Total Bilirubin 6.2 H D AST 43 H ALT 23 Alkaline Phosphatase 104 D Ammonia 200 H* Total Protein 5.7 Albumin 2.3 L Globulin 3.4 Albumin/Globulin Ratio 0.7 L Misc Test Result Platelets confirmed Blood Type O Positive Antibody Screen NEGATIVE Crossmatch See Detail Blood Bank Wristband ID Yes Quality Measures Quality Measures VTE prophylaxis (SCDs) Assessment & Plan Assessment Current Active Medications: Generic Name Dose Route Start Last Admin Trade Name Freq PRN Reason Stop Dose Admin Acetaminophen 650 mg 01/27/24 16:26 Acetaminophen 325 Mg Tablet PO 02/26/24 16:25 Q6H PRN PAIN SCALE 1-3 (mild Octreotide Acetate 1,000 mcg/ 102 mls @ 5.1 mls/hr 01/28/24 11:59 01/28/24 12:35 Sodium Chloride IV 02/01/24 15:58 50 mcg/hr .Q20H CELINA 5.1 mls/hr Administration Protocol 50 MCG/HR Ceftriaxone Sodium 2 gm/ 50 mls @ 100 mls/hr 01/27/24 16:30 01/28/24 09:46 Sodium Chloride IV 02/03/24 16:29 100 mls/hr QDAY CELINA Administration Lactulose 30 gm 01/28/24 14:00 Lactulose Syrup 20 Gm/30 Ml Udc [place] 02/26/24 16:29 TID [facility] Protocol Midodrine 10 mg 01/27/24 22:00 01/28/24 05:07 Midodrine 5 Mg Tablet PO 02/26/24 21:59 Not Given TID CELINA Ondansetron HCl 4 mg 01/27/24 16:26 01/27/24 16:46 Ondansetron Inj 2 Mg/Ml Inj 2 Ml IV 02/26/24 16:25 4 mg Q6H PRN Administration NAUSEA OR VOMITING Protocol Oxycodone/Acetaminophen 1 tab 01/27/24 16:26 01/28/24 07:23 Oxycodone/Apap 5/325 Tablet PO 02/01/24 16:25 1 tab Q6H PRN Administration PAIN SCALE 4-10(Mod-Sev Pantoprazole Sodium 40 mg 01/27/24 21:00 01/28/24 09:47 Pantoprazole Inj 40 Mg Vial IV 02/26/24 20:59 40 mg BID CELINA Administration Rifaximin 550 mg 01/27/24 21:00 01/28/24 09:48 Rifaximin 550 Mg Tablet PO 02/03/24 20:59 550 mg BID CELINA Administration Plan 53 yr female with PMH of decompensated liver cirrhosis, type 2 diabetes, Grade III esophageal varices s/p band ligation, hemorrhoids brought to the hospital with chief complaints of altered mental status and hematemesis. # Acute on chronic decompensated alcoholic liver disease # Hepatic encephalopathy, resolved # Hyperbilirubinemia -Patient has a known history of alcoholic liver disease and was trying to get liver transplant, for which she was scheduled for appointment in February to get into liver transplant list. -Patient reported that she is having only 1 bowel movement despite taking the lactulose and did not change the frequency on dose of lactulose. -She was noted to be having altered mental status and was brought by her daughter to the ED and also had an episode of hematemesis. -In the ED, patient was found to be altered -Vitals at the time of admission is blood pressure 96/63 mmHg, pulse 51 bpm, respiratory rate 20/min, SpO2 100% with room air -Labs at the time of admission showed WBC 4.7, Hb 7.3, platelets 69. Electrolytes are within normal limits. Total bilirubin is 4.5, AST 43, ALT 25, ALP 138, ammonia 200, albumin 2.5, lipase 37. Plan -Patient was started on octreotide drip and continuing the pantoprazole. -Dr. Culp was consulted. -Lactulose p.o. is started initially, as patient is n.p.o. started on per rectal lactulose 30 g 3 times daily -Will change lactulose [place] to p.o. once the EGD is done. -Will continue rifaximin 550 Mg p.o. twice daily # Upper GI bleed # History of esophageal varices, s/p banding -Patient had history of esophageal varices and banding was done. -Presented to the hospital with multiple episodes of vomiting which are initially clear and later hematemesis. -Recent endoscopy was done on 01/13/2024 that showed grade 2 esophageal varices, not amenable to banding, portal hypertension gastropathy, gastritis. -Patient was found to have a hemoglobin of 7.3 at the time of admission -Patient received 2 units of PRBC Plan -Patient was started on octreotide drip and pantoprazole IV -Patient was n.p.o. since midnight of 01/28/2024 and pending to get EGD today By Dr. Culp -Will monitor for bleeding manifestations # Pancytopenia Likely due to hypersplenism combined with chronic liver disease -Will continue to monitor CBC Hospital Maintenance: Dispo: Med/tele DVT ppx: SCD GI ppx: Protonix Diet: N.p.o. in view of EGD IV lines: Peripheral Code status: Full code Patient plan of care was discussed with the attending physician, Dr. Prince Gandhi, PGY1 Attending Provider Attestation/Addendum I reviewed labs, imaging, EKG, home medications and prior available records. Face to face evaluation was performed by me. I have personally examined the patient and discussed assessment and plan with the IM team. I reviewed the resident note and agree with the plan with exceptions as below. See my addendum in a separate note for the same date.
[2024-01-28 16:04] LABS: HCG,Qualitative Serum Negative
[2024-01-28] MEDS: LACTULOSE SYRUP 20 GM/30 ML UDC 30 GM PR (21:57)
[2024-01-29] VITALS (9 sets, daily range): BP systolic 91–131; BP diastolic 63–79; PULSE 50–74; RESP 12–20; TEMP 35.9–36.6; O2SAT 96–99
[2024-01-29] MEDS: oxyCODONE/APAP 5/325 TABLET 1 TAB PO ×2 (05:07→12:44)
[2024-01-29 06:16] LABS: Basophils # (Auto) 0.1 Thou/mm3 (0.0-0.2); Basophils % (Auto) 1 % (0-2.5); Eosinophils # (Auto) 0.2 Thou/mm3 (0.0-0.5); Eosinophils % (Auto) 4 % (0-10); Hematocrit 38.2 % (36.0-46.0); Hemoglobin 12.7 g/dL (12.0-16.0); Immature Granulocytes % (Auto) 0 % (0-0); Immature Granulocytes Auto 0.01 Thou/mm3 (0.00-0.00); Lymphocytes # (Auto) 1.7 Thou/mm3 (1.0-4.8); Lymphocytes % (Auto) 37 % (10-50); Mean Corpuscular HGB Conc 33.2 g/dl (31.0-37.0); Mean Corpuscular Hemoglobin 32.3 pg (25.0-35.0); Mean Corpuscular Volume 97 fL (80-100); Monocytes # (Auto) 0.4 Thou/mm3 (0.0-0.8); Monocytes % (Auto) 8 % (0-12); Neutrophils # (Auto) 2.2 Thou/mm3 (1.8-7.7); Neutrophils % (Auto) 49 % (37-80); Nucleated Red Blood Cell % 0 /100 WBC (0); RDW Standard Deviation 77.7 fL (36.4-46.3); Red Blood Count 3.93 Miln/mm3 (4.00-5.20); White Blood Count 4.4 Thou/mm3 (3.6-11.0)
[2024-01-29 06:17] LABS: Platelet Count 43 Thou/mm3 (140-440)
[2024-01-29 06:50] LABS: Alanine Aminotransferase 25 U/L (10-49); Albumin, Serum 2.7 gm/dL (3.5-5.0); Albumin/Globulin Ratio 0.7 (1.2-2.2); Alkaline Phosphatase 112 U/L (46-116); Anion Gap 6 (7-16); Aspartate Amino Transferase 43 U/L (0-34); BUN/Creatinine Ratio 13 Ratio (12-20); Bilirubin,Total 8.6 mg/dL (0.3-1.2); Blood Urea Nitrogen 12 mg/dL (9-23); Calcium 8.4 mg/dL (8.3-10.6); Calcium (Corrected) 9.4 mg/dL (8.5-10.1); Carbon Dioxide 25.5 mMol/L (20.0-31.0); Chloride 107 mMol/L (98-107); Creatinine (Component) 0.9 mg/dL (0.6-1.3); Estimated Creatinine Clearance 68.1 mL/min (>60); Globulin 4.1 gm/dL (2.3-3.5); Glucose 137 mg/dL (74-106); Magnesium 1.9 mg/dL (1.6-2.6); Osmolality,Calculated 277 (275-295); Potassium 4.3 mMol/L (3.4-5.1); Sodium 138 mMol/L (136-145); Total Protein 6.8 gm/dL (5.7-8.2); eGFR > 60 See Note
[2024-01-29 07:32] LABS: Slide Review Platelets confirmed
[2024-01-29] MEDS: cefTRIAXone 2 GM in SODIUM CHLORIDE 0.9% (P) 50 ML IV (08:51)
[2024-01-29] MEDS: PANTOPRAZOLE INJ 40 MG VIAL IV (08:52)
[2024-01-29] MEDS: rifaximin 550 MG TABLET PO ×2 (08:55→21:09)
[2024-01-29] MEDS: OCTREOTIDE ACET INJ 1,000 MCG in SODIUM CHLORIDE 0.9% 100 ML 5.1 MCG IV (10:05)
[2024-01-29] MEDS: MIDODRINE 5 MG TABLET 10 MG PO (13:46)
--- NOTE | 2024-01-29 15:11 | PD.RESPRO ---
Documentation for date of: 01/29/24 Subjective Subjective Interval history: Acute overnight events. Patient appears comfortable, tolerating oral intake without nausea or vomiting. Having regular bowel movements which are watery but nonbloody. Jaundice and scleral x-rays appear to have improved. Mentation have also improved. Denies fever, chills, headaches, chest pain, sob, cough, GI or urinary symptoms. Exam Vital Signs Temp Pulse Resp BP Pulse Ox O2 Del Method O2 Flow Rate 97.2 F 64 20 91/65 97 Room Air 3 01/29/24 12:00 01/29/24 13:46 01/29/24 12:00 01/29/24 13:46 01/29/24 12:00 01/29/24 12:00 01/28/24 17:25 Narrative Exam General: normal appearing middle-aged woman, NAD, nonicterus HEENT: Normocephalic, atraumatic, mucous membranes moist. Heart: Regular rate and rhythm, no murmurs. Lungs: Clear to auscultation with no wheezing or crackles. Abdomen: Soft, nondistended, mild tenderness in RUQ, positive bowel sounds. ?No guarding or rebound tenderness. Neurologic: Alert and oriented x3, no gross neurological deficit, and patient able to move all 4 extremities. Extremities: No edema. Skin: No rash. ecchymoses from catheterisation Objective Labs 01/29/24 05:46 01/29/24 05:46 Labs: Laboratory Results - last 24 hr 01/28/24 01/29/24 06:09 05:46 WBC 4.4 RBC 3.93 L Hgb 12.7 Hct 38.2 MCV 97 MCH 32.3 MCHC 33.2 RDW Std Deviation 77.7 H Plt Count 43 L Neut % (Auto) 49 Lymph % (Auto) 37 [place] % (Auto) 8 Eos % (Auto) 4 Baso % (Auto) 1 Neut # (Auto) 2.2 Lymph # (Auto) 1.7 [place] # (Auto) 0.4 Eos # (Auto) 0.2 Baso # (Auto) 0.1 Immature Gran # (Auto) 0.01 H Absolute Nucleated RBC 0.00 Immature Gran % 0 Nucleated RBC % 0 Sodium 138 Potassium 4.3 Chloride 107 Carbon Dioxide 25.5 Anion Gap 6 L BUN 12 Creatinine 0.9 Estim Creat Clear Calc 68.1 eGFR > 60 BUN/Creatinine Ratio 13 Glucose 137 H Calculated Osmolality 277 Calcium 8.4 Corrected Calcium 9.4 Magnesium 1.9 Total Bilirubin 8.6 H D AST 43 H ALT 25 Alkaline Phosphatase 112 Total Protein 6.8 Albumin 2.7 L Globulin 4.1 H Albumin/Globulin Ratio 0.7 L HCG, Qual Negative Misc Test Result Platelets confirmed Quality Measures Quality Measures VTE prophylaxis (SCDs) Assessment & Plan Assessment Current Active Medications: Generic Name Dose Route Start Last Admin Trade Name Freq PRN Reason Stop Dose Admin Acetaminophen 650 mg 01/27/24 16:26 Acetaminophen 325 Mg Tablet PO 02/26/24 16:25 Q6H PRN PAIN SCALE 1-3 (mild Octreotide Acetate 1,000 mcg/ 102 mls @ 3.06 mls/hr 01/29/24 11:00 01/29/24 10:54 Sodium Chloride IV 02/03/24 10:59 Not Given .Q24H CELINA Protocol 30 MCG/HR Lactulose 30 gm 01/28/24 14:00 01/29/24 13:47 Lactulose Syrup 20 Gm/30 Ml Udc [place] 02/26/24 16:29 Not Given TID [facility] Protocol Midodrine 10 mg 01/27/24 22:00 01/29/24 13:46 Midodrine 5 Mg Tablet PO 02/26/24 21:59 10 mg TID CELINA Administration Ondansetron HCl 4 mg 01/27/24 16:26 01/27/24 16:46 Ondansetron Inj 2 Mg/Ml Inj 2 Ml IV 02/26/24 16:25 4 mg Q6H PRN Administration NAUSEA OR VOMITING Protocol Oxycodone/Acetaminophen 1 tab 01/27/24 16:26 01/29/24 12:44 Oxycodone/Apap 5/325 Tablet PO 02/01/24 16:25 1 tab Q6H PRN Administration PAIN SCALE 4-10(Mod-Sev Pantoprazole Sodium 40 mg 01/30/24 09:00 Pantoprazole Inj 40 Mg Vial IV 02/29/24 08:59 QDAY CELINA Rifaximin 550 mg 01/27/24 21:00 01/29/24 08:55 Rifaximin 550 Mg Tablet PO 02/03/24 20:59 550 mg BID CELINA Administration Plan 53 yr female with PMH of decompensated liver cirrhosis, type 2 diabetes, Grade III esophageal varices s/p band ligation, hemorrhoids brought to the hospital with chief complaints of altered mental status and hematemesis. # Acute on chronic decompensated alcoholic liver disease # Hepatic encephalopathy, resolved # Hyperbilirubinemia -Patient has a known history of alcoholic liver disease and was trying to get liver transplant, for which she was scheduled for appointment in February to get into liver transplant list. -Patient reported that she is having only 1 bowel movement despite taking the lactulose and did not change the frequency on dose of lactulose. -She was noted to be having altered mental status and was brought by her daughter to the ED and also had an episode of hematemesis. -In the ED, patient was found to be altered -Vitals at the time of admission is blood pressure 96/63 mmHg, pulse 51 bpm, respiratory rate 20/min, SpO2 100% with room air -Labs at the time of admission showed WBC 4.7, Hb 7.3, platelets 69. Electrolytes are within normal limits. Total bilirubin is 4.5, AST 43, ALT 25, ALP 138, ammonia 200, albumin 2.5, lipase 37. Plan -Patient was started on octreotide drip and continuing the pantoprazole. -Dr. Culp was consulted. -Lactulose p.o. is started initially, as patient is n.p.o. started on per rectal lactulose 30 g 3 times daily -Will change lactulose [place] to p.o. once the EGD is done. -Will continue rifaximin 550 Mg p.o. twice daily # Upper GI bleed # History of esophageal varices, s/p banding -Patient had history of esophageal varices and banding was done. -Presented to the hospital with multiple episodes of vomiting which are initially clear and later hematemesis. -Recent endoscopy was done on 01/13/2024 that showed grade 2 esophageal varices, not amenable to banding, portal hypertension gastropathy, gastritis. -Patient was found to have a hemoglobin of 7.3 at the time of admission -Patient received 2 units of PRBC -Underwent EGD with variceal band ligation, continued on OCTREOTIDE Plan ? Decrease OCTREOTIDE 2/2 bradycardia (01/27 -01/31) ? Continue PROTONIX IV 40 mg QDAY -Will monitor for bleeding manifestations # Pancytopenia Likely due to hypersplenism combined with chronic liver disease -Will continue to monitor CBC Hospital Maintenance: Dispo: Med/tele DVT ppx: SCD GI ppx: Protonix Diet: advancing full liquid diet IV lines: Peripheral Code status: Full code Patient case was discussed with attending, Mateo Glover DO and senior resident Dr. Otto. Soila Harris DO PGYI Attending Provider Attestation/Addendum I have discussed and was present for the essential components of the history, physical examination, diagnosis, and treatment plan with the resident. I agree with the patient's care as documented by the resident and amended herein by me. Dickson Glover DO. No acute events overnight, vital signs stable, patient afebrile. Pulse on the low side at 50 however patient asymptomatic. CBC remarkable for a platelet count of 43 however that is relatively stable, BMP significant for a T. bili of 8.6 which is a slight uptrend today, AST 43, normal ALT and alk phos. 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 3 times daily ?Continue lactulose and rifaximin Dispo: On 01/31 home when octreotide drip is discontinued Although this document has been carefully reviewed, there may still be some phonetic and other typographical errors. These errors are purely grammatical due to imperfections in the software program and should not be construed in any way to compromise the substance of the patient's medical care during this visit.
--- NOTE | 2024-01-29 16:02 | ESPR_ITS ---
Documentation for date of: 01/29/24 Subjective Subjective Interval history: Patient evaluated Hemoglobin hematocrit 12.7 and 38.2 Exam Vital Signs Temp Pulse Resp BP Pulse Ox O2 Del Method O2 Flow Rate 97.2 F 64 20 91/65 97 Room Air 3 01/29/24 12:00 01/29/24 13:46 01/29/24 12:00 01/29/24 13:46 01/29/24 12:00 01/29/24 12:00 01/28/24 17:25 Constitutional Comments: Alert oriented Routine Respiratory Exam Comments: Normal to auscultation Objective Labs 01/29/24 05:46 01/29/24 05:46 Labs: Laboratory Results - last 24 hr 01/28/24 01/29/24 06:09 05:46 WBC 4.4 RBC 3.93 L Hgb 12.7 Hct 38.2 MCV 97 MCH 32.3 MCHC 33.2 RDW Std Deviation 77.7 H Plt Count 43 L Neut % (Auto) 49 Lymph % (Auto) 37 [place] % (Auto) 8 Eos % (Auto) 4 Baso % (Auto) 1 Neut # (Auto) 2.2 Lymph # (Auto) 1.7 [place] # (Auto) 0.4 Eos # (Auto) 0.2 Baso # (Auto) 0.1 Immature Gran # (Auto) 0.01 H Absolute Nucleated RBC 0.00 Immature Gran % 0 Nucleated RBC % 0 Sodium 138 Potassium 4.3 Chloride 107 Carbon Dioxide 25.5 Anion Gap 6 L BUN 12 Creatinine 0.9 Estim Creat Clear Calc 68.1 eGFR > 60 BUN/Creatinine Ratio 13 Glucose 137 H Calculated Osmolality 277 Calcium 8.4 Corrected Calcium 9.4 Magnesium 1.9 Total Bilirubin 8.6 H D AST 43 H ALT 25 Alkaline Phosphatase 112 Total Protein 6.8 Albumin 2.7 L Globulin 4.1 H Albumin/Globulin Ratio 0.7 L HCG, Qual Negative Misc Test Result Platelets confirmed Impressions Impression: # Esophageal variceal bleeding status post band ligation Continue octreotide Advance diet # Hepatic encephalopathy continue current management Assessment & Plan A&P Narrative # Acute upper GI bleed most likely secondary to esophageal variceal bleeding or hypertensive portal gastropathy leading to mucosal oozing of blood Plan N.p.o. Octreotide infusion at 50 mcg/h serial CBC Transfuse if the hemoglobin drops below 7 g We will consider doing a fiberoptic upper endoscopy once patient mental status improves #Acute hepatic encephalopathy Recommend lactulose and Xifaxan Will follow the patient Thank you very much for the opportunity to participate in the care of this patient Time Spent With Patient Time: Total time spent is greater than 50% in coordination of care (as documented) at patient's floor/unit and/or counseling patient:
[2024-01-29] MEDS: ACETAMINOPHEN 325 MG TABLET 650 MG PO (16:22)
[2024-01-29] MEDS: LACTULOSE SYRUP 20 GM/30 ML UDC 30 GM PO (21:08)
[2024-01-29] MEDS: ESCITALOPRAM OXALATE 10 MG TABLET PO (21:09)
[2024-01-30] VITALS (7 sets, daily range): BP systolic 105–122; BP diastolic 53–71; PULSE 59–83; RESP 11–19; TEMP 35.9–36.4; O2SAT 95–98; BMI 36.6
[2024-01-30] MEDS: LACTULOSE SYRUP 20 GM/30 ML UDC 30 GM PO (05:23)
[2024-01-30] MEDS: MIDODRINE 5 MG TABLET 10 MG PO (05:23)
[2024-01-30 06:09] LABS: Basophils # (Auto) 0.1 Thou/mm3 (0.0-0.2); Basophils % (Auto) 1 % (0-2.5); Eosinophils # (Auto) 0.2 Thou/mm3 (0.0-0.5); Eosinophils % (Auto) 5 % (0-10); Immature Granulocytes % (Auto) 0 % (0-0); Immature Granulocytes Auto 0.01 Thou/mm3 (0.00-0.00); Lymphocytes # (Auto) 1.5 Thou/mm3 (1.0-4.8); Lymphocytes % (Auto) 36 % (10-50); Mean Corpuscular HGB Conc 33.3 g/dl (31.0-37.0); Mean Corpuscular Hemoglobin 32.4 pg (25.0-35.0); Mean Corpuscular Volume 97 fL (80-100); Monocytes # (Auto) 0.5 Thou/mm3 (0.0-0.8); Monocytes % (Auto) 12 % (0-12); Neutrophils # (Auto) 1.8 Thou/mm3 (1.8-7.7); Neutrophils % (Auto) 46 % (37-80); Nucleated Red Blood Cell % 0 /100 WBC (0); RDW Standard Deviation 73.6 fL (36.4-46.3)
[2024-01-30 06:12] LABS: Platelet Count 52 Thou/mm3 (140-440); Slide Review Platelets confirmed
[2024-01-30 06:38] LABS: Alanine Aminotransferase 12 U/L (10-49); Albumin, Serum 2.3 gm/dL (3.5-5.0); Albumin/Globulin Ratio 0.7 (1.2-2.2); Alkaline Phosphatase 114 U/L (46-116); Anion Gap 7 (7-16); Aspartate Amino Transferase 44 U/L (0-34); BUN/Creatinine Ratio 9 Ratio (12-20); Bilirubin,Total 5.4 mg/dL (0.3-1.2); Blood Urea Nitrogen 7 mg/dL (9-23); Calcium 7.9 mg/dL (8.3-10.6); Calcium (Corrected) 9.3 mg/dL (8.5-10.1); Carbon Dioxide 23.7 mMol/L (20.0-31.0); Chloride 107 mMol/L (98-107); Creatinine (Component) 0.8 mg/dL (0.6-1.3); Estimated Creatinine Clearance 76.5 mL/min (>60); Globulin 3.4 gm/dL (2.3-3.5); Glucose 101 mg/dL (74-106); Magnesium 1.7 mg/dL (1.6-2.6); Osmolality,Calculated 273 (275-295); Phosphorous 4.2 mg/dL (2.4-5.1); Potassium 4.3 mMol/L (3.4-5.1); Sodium 138 mMol/L (136-145); Total Protein 5.7 gm/dL (5.7-8.2); eGFR > 60 See Note
[2024-01-30] MEDS: rifaximin 550 MG TABLET PO ×2 (09:38→20:37)
[2024-01-30] MEDS: PANTOPRAZOLE INJ 40 MG VIAL IV (09:38)
[2024-01-30] MEDS: oxyCODONE/APAP 5/325 TABLET 1 TAB PO ×2 (10:38→20:37)
--- NOTE | 2024-01-30 13:37 | PC.SS ---
Patient is alert/oriented. Patient was admitted for hepatic encephalopathy. Patient states prior to hospitalization patient needed assistance with ADL's. Patient has a walker/wheelchair . Patient was inquiring about a transfer board. However, this may not be covered by insurance. Patient states she often takes sponge baths. Patient states her family rotates care with her. She is already open to [facility]. Patient wants to continue this. Patient states she follows at [facility]. Her last appt. was in beginning of January. Patient confirmed her family provides transportation assistance to appointments. Pharmacy: [facility] Alt medical decision maker: Gemma Knight, mother,
--- NOTE | 2024-01-30 15:58 | ESPR_ITS ---
<Statement entered by Nasima Blair MD - 01/30/24 20:05> Patient was seen and examined by me personally. I agree with most of the assessment and plan as discussed with the information technology internship physician, and my attending, Dr. Morrison. S/p EGD with banding of grade 2 varices. Will continue octreotide for a total of 5 days, at reduced rate due to bradycardia. Continue lactulose/rifaximin with goal 2 BMs daily. Patient has endorsed feeling sad due to her boyfriend breaking up with her. Will add remeron and encourage patient to rely on support from family & friends. May benefit from CBT outpatient. Nasima Blair MD, PGY-3 Documentation for date of: 01/30/24 Subjective Subjective Interval history: Patient was seen and examined bedside. Reported that she is having bowel movements and had to bowel movements by 9 AM. Underwent upper GI endoscopy and varices were ligated. Dr. Culp recommended to continue octreotide for 5 days from the time of admission. Exam Vital Signs Temp Pulse Resp BP Pulse Ox O2 Del Method O2 Flow Rate 97.5 F 71 18 122/65 97 Room Air 3 01/30/24 12:00 01/30/24 12:00 01/30/24 12:00 01/30/24 12:00 01/30/24 12:00 01/30/24 12:00 01/28/24 17:25 Narrative Exam General: Awake. Icteric HEENT: Normocephalic, atraumatic, mucous membranes moist. Heart: Regular rate and rhythm, no murmurs. Lungs: Clear to auscultation with no wheezing or crackles. Abdomen: Soft, nondistended, mild tenderness in right upper quadrant and epigastrium, positive bowel sounds. ?No guarding or rebound tenderness. Neurologic: Alert and oriented x3, no gross neurological deficit, and patient able to move all 4 extremities. Extremities: No edema. Skin: No rash or ecchymoses. Objective Labs 01/31/24 05:40 01/31/24 05:40 Labs: Laboratory Results - last 24 hr 01/30/24 04:52 WBC 4.0 RBC 3.40 L Hgb 11.0 L Hct 33.0 L MCV 97 MCH 32.4 MCHC 33.3 RDW Std Deviation 73.6 H Plt Count 52 L D Neut % (Auto) 46 Lymph % (Auto) 36 [place] % (Auto) 12 Eos % (Auto) 5 Baso % (Auto) 1 Neut # (Auto) 1.8 Lymph # (Auto) 1.5 [place] # (Auto) 0.5 Eos # (Auto) 0.2 Baso # (Auto) 0.1 Immature Gran # (Auto) 0.01 H Absolute Nucleated RBC 0.00 Immature Gran % 0 Nucleated RBC % 0 Sodium 138 Potassium 4.3 Chloride 107 Carbon Dioxide 23.7 Anion Gap 7 BUN 7 L Creatinine 0.8 Estim Creat Clear Calc 76.5 eGFR > 60 BUN/Creatinine Ratio 9 L Glucose 101 Calculated Osmolality 273 L Calcium 7.9 L Corrected Calcium 9.3 Phosphorus 4.2 Magnesium 1.7 Total Bilirubin 5.4 H D AST 44 H ALT 12 Alkaline Phosphatase 114 Total Protein 5.7 Albumin 2.3 L Globulin 3.4 Albumin/Globulin Ratio 0.7 L Misc Test Result Platelets confirmed Quality Measures Quality Measures VTE prophylaxis (SCDs) Assessment & Plan Assessment Current Active Medications: Generic Name Dose Route Start Last Admin Trade Name Freq PRN Reason Stop Dose Admin Acetaminophen 650 mg 01/27/24 16:26 01/29/24 16:22 Acetaminophen 325 Mg Tablet PO 02/26/24 16:25 650 mg Q6H PRN Administration PAIN SCALE 1-3 (mild Octreotide Acetate 1,000 mcg/ 102 mls @ 3.06 mls/hr 01/29/24 11:00 01/29/24 10:54 Sodium Chloride IV 02/03/24 10:59 Not Given .Q24H CELINA Protocol 30 MCG/HR Lactulose 30 gm 01/29/24 22:00 01/30/24 05:23 Lactulose Syrup 20 Gm/30 Ml Udc PO 02/28/24 21:59 30 gm TID CELINA Administration Protocol Midodrine 10 mg 01/30/24 10:17 Midodrine 5 Mg Tablet PO 02/26/24 21:59 TID PRN Blood Pressure - Low <90 Mirtazapine 15 mg 01/30/24 21:00 Mirtazapine 15 Mg Tablet PO 02/29/24 20:59 HS CELINA Ondansetron HCl 4 mg 01/27/24 16:26 01/27/24 16:46 Ondansetron Inj 2 Mg/Ml Inj 2 Ml IV 01/12/25 16:25 4 mg Q6H PRN Administration NAUSEA OR VOMITING Protocol Oxycodone/Acetaminophen 1 tab 01/27/24 16:26 01/30/24 10:38 Oxycodone/Apap 5/325 Tablet PO 02/01/24 16:25 1 tab Q6H PRN Administration PAIN SCALE 4-10(Mod-Sev Pantoprazole Sodium 40 mg 01/30/24 09:00 01/30/24 09:38 Pantoprazole Inj 40 Mg Vial IV 02/29/24 08:59 40 mg QDAY CELINA Administration Rifaximin 550 mg 01/27/24 21:00 01/30/24 09:38 Rifaximin 550 Mg Tablet PO 02/03/24 20:59 550 mg BID CELINA Administration Plan 53 yr female with PMH of decompensated liver cirrhosis, type 2 diabetes, Grade III esophageal varices s/p band ligation, hemorrhoids brought to the hospital with chief complaints of altered mental status and hematemesis. # Acute on chronic decompensated alcoholic liver disease # Hepatic encephalopathy, resolved # Hyperbilirubinemia -Patient has a known history of alcoholic liver disease and was trying to get liver transplant, for which she was scheduled for appointment in February to get into liver transplant list. -Patient reported that she is having only 1 bowel movement despite taking the lactulose and did not change the frequency on dose of lactulose. -She was noted to be having altered mental status and was brought by her daughter to the ED and also had an episode of hematemesis. -In the ED, patient was found to be altered -Vitals at the time of admission is blood pressure 96/63 mmHg, pulse 51 bpm, respiratory rate 20/min, SpO2 100% with room air -Labs at the time of admission showed WBC 4.7, Hb 7.3, platelets 69. Electrolytes are within normal limits. Total bilirubin is 4.5, AST 43, ALT 25, ALP 138, ammonia 200, albumin 2.5, lipase 37. Plan -Patient was started on octreotide drip and continuing the pantoprazole. -Dr. Culp was consulted and upper GI endoscopy was done that showed grade 2 esophageal varices which was ligated -Lactulose 30gm p.o. 3 times daily -Will continue rifaximin 550 Mg p.o. twice daily # Upper GI bleed # History of esophageal varices, s/p banding -Patient had history of esophageal varices and banding was done. -Presented to the hospital with multiple episodes of vomiting which are initially clear and later hematemesis. -Recent endoscopy was done on 01/13/2024 that showed grade 2 esophageal varices, not amenable to banding, portal hypertension gastropathy, gastritis. -Patient was found to have a hemoglobin of 7.3 at the time of admission -Patient received 2 units of PRBC -Underwent EGD with variceal band ligation, continued on OCTREOTIDE Plan ? Decrease OCTREOTIDE 2/2 bradycardia (01/27 -01/31) ? Continue PROTONIX IV 40 mg QDAY - Dr. Culp was consulted and upper GI endoscopy was done that showed grade 2 esophageal varices which was ligated # Pancytopenia Likely due to hypersplenism combined with chronic liver disease -Will continue to monitor CBC Hospital Maintenance: Dispo: Med/tele DVT ppx: SCD GI ppx: Protonix Diet: advancing full liquid diet IV lines: Peripheral Code status: Full code Patient plan of care was discussed with the attending physician, Dr. Morrison and senior resident Dr. Rossy Gandhi, PGY1 Attending Provider Attestation/Addendum I reviewed labs, imaging, EKG, home medications and prior available records. Face to face evaluation was performed by me. I have personally examined the patient and discussed assessment and plan with the IM team. I reviewed the resident note and agree with the plan with exceptions as below. 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 Monitor BP. Mental status improved. Continue lactulose and rifaximin. Monitor for BMs. Status post 2 PRBC transfusion. H&H improved. Monitor H&H. Consulted GI: Recommended EGD. Status post EGD that showed esophageal varices s/p banding. Continue IV octreotide for 5 days. Monitor platelet level. Monitor H&H. Monitor for bleeding. Follow-up with the liver transplant clinic as outpatient. She has an appointment in February. Continue alcohol abstinence.
--- NOTE | 2024-01-30 17:36 | PD.IMPROG ---
Documentation for date of: 01/30/24 Subjective Subjective Interval history: Hemoglobin hematocrit 11.0 and 33 point Exam Vital Signs Temp Pulse Resp BP Pulse Ox O2 Del Method O2 Flow Rate 97.4 F 77 19 111/61 95 Room Air 3 01/30/24 16:00 01/30/24 16:00 01/30/24 16:00 01/30/24 16:00 01/30/24 16:00 01/30/24 16:00 01/28/24 17:25 Constitutional Comments: Alert oriented Routine Respiratory Exam Comments: Normal to auscultation Routine Abdominal Exam Comments: Soft nontender Objective Labs 01/30/24 04:52 01/30/24 04:52 Labs: Laboratory Results - last 24 hr 01/30/24 04:52 WBC 4.0 RBC 3.40 L Hgb 11.0 L Hct 33.0 L MCV 97 MCH 32.4 MCHC 33.3 RDW Std Deviation 73.6 H Plt Count 52 L D Neut % (Auto) 46 Lymph % (Auto) 36 [place] % (Auto) 12 Eos % (Auto) 5 Baso % (Auto) 1 Neut # (Auto) 1.8 Lymph # (Auto) 1.5 [place] # (Auto) 0.5 Eos # (Auto) 0.2 Baso # (Auto) 0.1 Immature Gran # (Auto) 0.01 H Absolute Nucleated RBC 0.00 Immature Gran % 0 Nucleated RBC % 0 Sodium 138 Potassium 4.3 Chloride 107 Carbon Dioxide 23.7 Anion Gap 7 BUN 7 L Creatinine 0.8 Estim Creat Clear Calc 76.5 eGFR > 60 BUN/Creatinine Ratio 9 L Glucose 101 Calculated Osmolality 273 L Calcium 7.9 L Corrected Calcium 9.3 Phosphorus 4.2 Magnesium 1.7 Total Bilirubin 5.4 H D AST 44 H ALT 12 Alkaline Phosphatase 114 Total Protein 5.7 Albumin 2.3 L Globulin 3.4 Albumin/Globulin Ratio 0.7 L Misc Test Result Platelets confirmed Impressions Impression: # Acute upper GI bleed secondary to esophageal varices requiring band ligation of the esophageal varices # Mucosal oozing of blood secondary to hypertensive portal gastropathy Continue current management Assessment & Plan A&P Narrative # Acute upper GI bleed most likely secondary to esophageal variceal bleeding or hypertensive portal gastropathy leading to mucosal oozing of blood Plan N.p.o. Octreotide infusion at 50 mcg/h serial CBC Transfuse if the hemoglobin drops below 7 g We will consider doing a fiberoptic upper endoscopy once patient mental status improves #Acute hepatic encephalopathy Recommend lactulose and Xifaxan Will follow the patient Thank you very much for the opportunity to participate in the care of this patient Time Spent With Patient Time: Total time spent is greater than 50% in coordination of care (as documented) at patient's floor/unit and/or counseling patient:
[2024-01-30] MEDS: MIRTAZAPINE 15 MG TABLET PO (20:37)
[2024-01-30] MEDS: OCTREOTIDE ACET INJ 1,000 MCG in SODIUM CHLORIDE 0.9% 100 ML 3.06 MCG IV (23:40)
[2024-01-31] VITALS: BP 101/63; PULSE 70; PULSE 72; RESP 15; TEMP 36.2; O2SAT 96
[2024-01-31] MEDS: oxyCODONE/APAP 5/325 TABLET 1 TAB PO ×2 (03:32→19:16)
[2024-01-31 04:00] VITALS: BP 95/60; PULSE 80; PULSE 91; RESP 16; TEMP 36.3; O2SAT 95
[2024-01-31] MEDS: LACTULOSE SYRUP 20 GM/30 ML UDC 30 GM PO ×2 (05:23→13:57)
[2024-01-31 06:28] LABS: Basophils % (Auto) 1 % (0-2.5); Eosinophils # (Auto) 0.2 Thou/mm3 (0.0-0.5); Eosinophils % (Auto) 5 % (0-10); Hematocrit 31.4 % (36.0-46.0); Hemoglobin 10.1 g/dL (12.0-16.0); Immature Granulocytes % (Auto) 0 % (0-0); Immature Granulocytes Auto 0.01 Thou/mm3 (0.00-0.00); Lymphocytes # (Auto) 1.1 Thou/mm3 (1.0-4.8); Lymphocytes % (Auto) 34 % (10-50); Mean Corpuscular HGB Conc 32.2 g/dl (31.0-37.0); Mean Corpuscular Hemoglobin 32.7 pg (25.0-35.0); Mean Corpuscular Volume 102 fL (80-100); Monocytes # (Auto) 0.3 Thou/mm3 (0.0-0.8); Monocytes % (Auto) 9 % (0-12); Neutrophils # (Auto) 1.6 Thou/mm3 (1.8-7.7); Neutrophils % (Auto) 50 % (37-80); Nucleated Red Blood Cell % 0 /100 WBC (0); RDW Standard Deviation 78.7 fL (36.4-46.3); Red Blood Count 3.09 Miln/mm3 (4.00-5.20); White Blood Count 3.2 Thou/mm3 (3.6-11.0)
[2024-01-31 06:30] LABS: Platelet Count 35 Thou/mm3 (140-440)
[2024-01-31 07:12] LABS: Alanine Aminotransferase 19 U/L (10-49); Albumin, Serum 2.3 gm/dL (3.5-5.0); Albumin/Globulin Ratio 0.6 (1.2-2.2); Alkaline Phosphatase 130 U/L (46-116); Anion Gap 8 (7-16); Aspartate Amino Transferase 50 U/L (0-34); BUN/Creatinine Ratio 7 Ratio (12-20); Bilirubin,Total 5.1 mg/dL (0.3-1.2); Blood Urea Nitrogen < 5 mg/dL (9-23); Calcium 7.7 mg/dL (8.3-10.6); Calcium (Corrected) 9.1 mg/dL (8.5-10.1); Carbon Dioxide 23.3 mMol/L (20.0-31.0); Chloride 106 mMol/L (98-107); Creatinine (Component) 0.7 mg/dL (0.6-1.3); Estimated Creatinine Clearance 87.2 mL/min (>60); Globulin 3.7 gm/dL (2.3-3.5); Glucose 208 mg/dL (74-106); Magnesium 1.7 mg/dL (1.6-2.6); Osmolality,Calculated 277 (275-295); Phosphorous 2.6 mg/dL (2.4-5.1); Potassium 4.1 mMol/L (3.4-5.1); Sodium 137 mMol/L (136-145); eGFR > 60 See Note
[2024-01-31 07:51] LABS: Slide Review Platelets confirmed
[2024-01-31 07:58] LABS: Glucose Estimated Average 85 mg/dL (80-131); Hemoglobin A1C 4.6 % Hgb (4.8-6.0)
[2024-01-31 08:00] VITALS: BP 112/66; PULSE 75; PULSE 86; RESP 16; TEMP 36.3; O2SAT 96
--- NOTE | 2024-01-31 09:09 | PC.NURSE ---
called to pharmacy for octreotide
[2024-01-31] MEDS: rifaximin 550 MG TABLET PO (09:26)
[2024-01-31] MEDS: PANTOPRAZOLE INJ 40 MG VIAL IV (09:26)
--- NOTE | 2024-01-31 10:38 | PD.RESPRO ---
Documentation for date of: 01/31/24 Exam Vital Signs Temp Pulse Resp BP Pulse Ox O2 Del Method O2 Flow Rate 97.4 F 86 16 112/66 96 Room Air 3 01/31/24 08:00 01/31/24 08:00 01/31/24 08:00 01/31/24 08:00 01/31/24 08:00 01/31/24 04:00 01/28/24 17:25 Objective Labs 01/31/24 05:40 01/31/24 05:40 Labs: Laboratory Results - last 24 hr 01/31/24 05:40 WBC 3.2 L RBC 3.09 L Hgb 10.1 L Hct 31.4 L MCV 102 H MCH 32.7 MCHC 32.2 RDW Std Deviation 78.7 H Plt Count 35 L D Neut % (Auto) 50 Lymph % (Auto) 34 [place] % (Auto) 9 Eos % (Auto) 5 Baso % (Auto) 1 Neut # (Auto) 1.6 L Lymph # (Auto) 1.1 [place] # (Auto) 0.3 Eos # (Auto) 0.2 Baso # (Auto) 0.0 Immature Gran # (Auto) 0.01 H Absolute Nucleated RBC 0.00 Immature Gran % 0 Nucleated RBC % 0 Sodium 137 Potassium 4.1 Chloride 106 Carbon Dioxide 23.3 Anion Gap 8 BUN < 5 L Creatinine 0.7 Estim Creat Clear Calc 87.2 eGFR > 60 BUN/Creatinine Ratio 7 L Glucose [address] Glu mg/dL 85 Hemoglobin A1c 4.6 L Calculated Osmolality 277 Calcium 7.7 L Corrected Calcium 9.1 Phosphorus 2.6 Magnesium 1.7 Total Bilirubin 5.1 H AST 50 H ALT 19 Alkaline Phosphatase 130 H Total Protein 6.0 Albumin 2.3 L Globulin 3.7 H Albumin/Globulin Ratio 0.6 L Misc Test Result Platelets confirmed Quality Measures Quality Measures VTE prophylaxis (SCDs) Assessment & Plan Assessment Current Active Medications: Generic Name Dose Route Start Last Admin Trade Name Freq PRN Reason Stop Dose Admin Acetaminophen 650 mg 01/27/24 16:26 01/29/24 16:22 Acetaminophen 325 Mg Tablet PO 02/26/24 16:25 650 mg Q6H PRN Administration PAIN SCALE 1-3 (mild Octreotide Acetate 1,000 mcg/ 102 mls @ 5.1 mls/hr 01/31/24 07:35 Sodium Chloride IV 02/04/24 11:34 .Q20H CELINA Protocol 50 MCG/HR Lactulose 30 gm 01/29/24 22:00 01/31/24 05:23 Lactulose Syrup 20 Gm/30 Ml Udc PO 02/28/24 21:59 30 gm TID CELINA Administration Protocol Midodrine 10 mg 01/30/24 10:17 Midodrine 5 Mg Tablet PO 02/26/24 21:59 TID PRN Blood Pressure - Low <90 Mirtazapine 15 mg 01/30/24 21:00 01/30/24 20:37 Mirtazapine 15 Mg Tablet PO 02/29/24 20:59 15 mg HS CELINA Administration Ondansetron HCl 4 mg 01/27/24 16:26 01/27/24 16:46 Ondansetron Inj 2 Mg/Ml Inj 2 Ml IV 02/26/24 16:25 4 mg Q6H PRN Administration NAUSEA OR VOMITING Protocol Oxycodone/Acetaminophen 1 tab 01/27/24 16:26 01/31/24 03:32 Oxycodone/Apap 5/325 Tablet PO 02/01/24 16:25 1 tab Q6H PRN Administration PAIN SCALE 4-10(Mod-Sev Pantoprazole Sodium 40 mg 01/30/24 09:00 01/31/24 09:26 Pantoprazole Inj 40 Mg Vial IV 02/29/24 08:59 40 mg QDAY CELINA Administration Rifaximin 550 mg 01/27/24 21:00 01/31/24 09:26 Rifaximin 550 Mg Tablet PO 02/03/24 20:59 550 mg BID CELINA Administration Plan 53 yr female with PMH of decompensated liver cirrhosis, type 2 diabetes, Grade III esophageal varices s/p band ligation, hemorrhoids brought to the hospital with chief complaints of altered mental status and hematemesis. # Acute on chronic decompensated alcoholic liver disease # Hepatic encephalopathy, resolved # Hyperbilirubinemia -Patient has a known history of alcoholic liver disease and was trying to get liver transplant, for which she was scheduled for appointment in February to get into liver transplant list. -Patient reported that she is having only 1 bowel movement despite taking the lactulose and did not change the frequency on dose of lactulose. -She was noted to be having altered mental status and was brought by her daughter to the ED and also had an episode of hematemesis. -In the ED, patient was found to be altered -Vitals at the time of admission is blood pressure 96/63 mmHg, pulse 51 bpm, respiratory rate 20/min, SpO2 100% with room air -Labs at the time of admission showed WBC 4.7, Hb 7.3, platelets 69. Electrolytes are within normal limits. Total bilirubin is 4.5, AST 43, ALT 25, ALP 138, ammonia 200, albumin 2.5, lipase 37. Plan -Patient was started on octreotide drip and continuing the pantoprazole. -Dr. Culp was consulted and upper GI endoscopy was done that showed grade 2 esophageal varices which was ligated -Lactulose 30gm p.o. 3 times daily -Will continue rifaximin 550 Mg p.o. twice daily # Upper GI bleed # History of esophageal varices, s/p banding -Patient had history of esophageal varices and banding was done. -Presented to the hospital with multiple episodes of vomiting which are initially clear and later hematemesis. -Recent endoscopy was done on 01/13/2024 that showed grade 2 esophageal varices, not amenable to banding, portal hypertension gastropathy, gastritis. -Patient was found to have a hemoglobin of 7.3 at the time of admission -Patient received 2 units of PRBC -Underwent EGD with variceal band ligation, continued on OCTREOTIDE Plan ? Decrease OCTREOTIDE 2/2 bradycardia (01/27 -01/31) ? Continue PROTONIX IV 40 mg QDAY - Dr. Culp was consulted and upper GI endoscopy was done that showed grade 2 esophageal varices which was ligated # Pancytopenia Likely due to hypersplenism combined with chronic liver disease -Will continue to monitor CBC #depression Hospital Maintenance: Dispo: Med/tele DVT ppx: SCD GI ppx: Protonix Diet: advancing full liquid diet IV lines: Peripheral Code status: Full code Patient plan of care was discussed with the attending physician, Dr. Morrison and senior resident Dr. Rossy Gandhi, PGY1 Attending Provider Attestation/Addendum I reviewed labs, imaging, EKG, home medications and prior available records. Face to face evaluation was performed by me. I have personally examined the patient and discussed assessment and plan with the IM team. I reviewed the resident note and agree with the plan with exceptions as below. 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 Monitor BP. Mental status improved. Continue lactulose and rifaximin. Monitor for BMs. Status post 2 PRBC transfusion. H&H improved. Monitor H&H. Consulted GI: Recommended EGD. Status post EGD that showed esophageal varices s/p banding. Continue IV octreotide for 5 days. Monitor platelet level. Monitor H&H. Monitor for bleeding. Follow-up with the liver transplant clinic as outpatient. She has an appointment in February. Continue alcohol abstinence.
--- NOTE | 2024-01-31 10:41 | PC.NURSE ---
Per Dr. Ballesteros continue with OCtreotide order
[2024-01-31] MEDS: OCTREOTIDE ACET INJ 1,000 MCG in SODIUM CHLORIDE 0.9% 100 ML 5.1 MCG IV ×2 (11:12→14:39)
[2024-01-31 12:00] VITALS: BP 104/58; PULSE 71; PULSE 73; RESP 18; TEMP 36.3; O2SAT 95
--- NOTE | 2024-01-31 14:23 | PC.NURSE ---
Dr. Otto ordered to increase octreotide from 50 mcg/hr to 60 mcg/hr. Dr. crystal new order needed to be put in place. orders octreotide IV for 60 mcg/hr but when trying to start the infusion the alaris pump would not allow for 60mcg/hr to be administered. RN called to [facility] in Pharmacy and Pharmacy instructed that 60 mcg/hr cannot be give, although order was verified by pharmacy. Dose changed back to 50 mcg/hr. Dr. Otto aware.
[2024-01-31 16:00] VITALS: BP 97/59; PULSE 80; RESP 18; TEMP 36.1; O2SAT 95
--- NOTE | 2024-01-31 16:52 | PC.NURSE ---
per dr Robbi richards for dc pt needs to fu w pcp
--- NOTE | 2024-01-31 19:48 | ESDS_ITS ---
Planned Discharge Date 01/31/24 DS: Providers Provider Date of admission: 01/27/24 16:26 Primary care physician: LETI Catherien Admitting Provider: Paras Morrison MD Attending Provider on Admission: Paras Morrison MD Consults: 01/27/24 15:49 Consult to Gastroenterology Stat Comment: Upper GI bleed, Consulting Provider: Brenda Culp 01/28/24 01:26 Referral Nutritional Services Routine Comment: Referral Wound Care Routine Comment: Attending Provider on DC: Viksa Gandhi MD Discharging Provider: Vikas Gandhi MD DS: Diagnosis Problem List Completed Was Problem List Reviewed/Reconciled?: Yes Hospital Course Hospital Course Hospital course: Patient is a 53-year-old female with history of alcoholic liver cirrhosis, history of GI bleed, who presented with a chief complaint of altered mental status and hematemesis and admitted in the hospital for hepatic encephalopathy and upper GI bleed secondary to esophageal varices. At the time of admission patient was found to have low blood pressure for which she received a bolus and later blood pressure improved to 102/52 mmHg. Labs showed hemoglobin 9, platelets 69, INR 1.2, ammonia 200. Patient was immediately started on octreotide and Protonix drip. Received 2 packs of RBC transfusion. Dr. Culp was consulted and EGD was done which showed grade 2 esophageal varices and b anding was done. Patient was continued on octreotide drip for 5 days. Rest of the hospital stay was uneventful. Patient was already trying to get a liver transplant for which appointment to get into list was scheduled in February 2024. Complained of depression during the hospital stay and started on mirtazapine and tried to dianetic counselor the patient. Patient was discharged to home with the following medications and recommendations. Follow up with PCP within 1-2 weeks Follow up with liver transplant center for scheduled appointment Continue lactulose 30mg three times daily and rifaximin 550mg twice daily. Your goal is 2-3 bowel movements daily. If you are having more than 3 BMs per day, can reduce your lactulose dose to half. Continue 40mg protonix daily Added mirtazipine 15mg every night. Recommend to start cognitive behavioural therapy outpatient. Return to the ED if your symptoms return or worsen. # Acute on chronic decompensated alcoholic liver disease # Hepatic encephalopathy, resolved # Hyperbilirubinemia # Upper GI bleed # History of esophageal varices, s/p banding # Pancytopenia Patient plan of care was discussed with the attending physician, Dr. Morrison and senior resident Dr. Rossy Gandhi, PGY1 Time Spent with Patient Time attestation: Total time spent providing and/or coordinating discharge services: Time spent: Greater than 30 minutes Home Health Home Health Referral Orders: 01/31/24 10:39 Home Health Referral Routine Reason For Exam: Needs home PT Home-Bound The patient must either because of illness or injury, need the aid of supportive devices such as crutches, canes, wheelchairs, and walkers; the use of special transportation; or the assistance of another person in order to leave their place of residence; OR have a condition such that leaving his or her home is medically contraindicated. In addition, the patient also meets the following criteria: patient is normally unable to leave the home and leaving home requires considerable taxing effort. Addendum to Home Health Certification Practitioner's Certification: I certify that the patient has been under my care in the hospital and the care of attending physician (see below). We had a [id number] encounter on (see date below). My clinical findings indicate that the patient is home bound per the above criteria and the Home Health Services noted in these orders are medically necessary. The primary reason for the [id number] encounter is related to the fact that the patient requires home health services. Date Certifying Ezex-mn-Lako Physician Encounter: 01/27/24 Physician's Name who will Assume Oversight for Services: Stacy Graff Physician's Phone No.who will Assume Oversight for Service: CAR UNLOADER - Community Resources: Yes PT to Evaluate: Yes PT to evaluate and provide a treatmnet plan to increase patient's mobility and strength. Wound Care: No IV Therapy: No RN Safety Evaluation: Yes RN to evaluate and create a plan of care that will produce positive outcomes. Palliative Treatment: No Palliative treatment and evaluate the need for hospice. Home Health Aide - Personal Care: Yes Home Health Aide to assist with any ADL's. Exam Vital Signs Temp Pulse Resp BP Pulse Ox O2 Del Method O2 Flow Rate 97.0 F 80 18 97/59 L 95 Room Air 3 01/31/24 16:00 01/31/24 16:00 01/31/24 16:00 01/31/24 16:00 01/31/24 16:00 01/31/24 16:00 01/28/24 17:25 Narrative Exam General: Awake. Icteric HEENT: Normocephalic, atraumatic, mucous membranes moist. Heart: Regular rate and rhythm, no murmurs. Lungs: Clear to auscultation with no wheezing or crackles. Abdomen: Soft, nondistended, mild tenderness in right upper quadrant and epigastrium, positive bowel sounds. ?No guarding or rebound tenderness. Neurologic: Alert and oriented x3, no gross neurological deficit, and patient able to move all 4 extremities. Extremities: No edema. Skin: No rash or ecchymoses. Discharge Plan Plan Patient Disposition: Home w/HOME HEALTH Patient condition on transfer: Stable Care Plan Goals: Follow up with PCP within 1-2 weeks Follow up with liver transplant center for scheduled appointment Continue lactulose 30mg three times daily and rifaximin 550mg twice daily. Your goal is 2-3 bowel movements daily. If you are having more than 3 BMs per day, can reduce your lactulose dose to half. Continue 40mg protonix daily Added mirtazipine 15mg every night. Recommend to start cognitive behavioural therapy outpatient. Return to the ED if your symptoms return or worsen. Prescriptions/Referrals Prescriptions/Med Rec: New lactulose 20 gram/30 mL Solution 30 g PO TID 30 Days Qty: 4050 1RF mirtazapine 15 mg Tablet 15 mg PO HS 30 Days Qty: 30 0RF Continued pantoprazole 40 mg tablet,delayed release (DR/EC) 40 mg PO QDAY Qty: 30 0RF methocarbamol 750 mg tablet 750 mg PO BID Patient Comments: TAKE 1 TABLET BY MOUTH TWICE A DAY lidocaine HCl 2 % solution 5 ml PO 6 TIMES DAILY PRN (Reason: Sore Throat) Patient Comments: SWISH AND SPIT OUT 5ML BY MOUTH 6 TIMES A DAY NEEDED ergocalciferol (vitamin D2) 1,250 mcg (50,000 unit) capsule 50,000 unit PO QWEEK Patient Comments: TAKE 1 CAPSULE BY MOUTH ONCE A WEEK Hemorrhoidal Cream 0.25-1 % cream 1 applic OK BID Qty: 28 0RF tramadol 50 mg tablet 50 mg PO Q4HR PRN (Reason: Pain) Patient Comments: TAKE 1 TABLET BY MOUTH EVERY 4 HOURS NEEDED FOR MODERATE PAIN 4-6 FOR 5 DAYS (DME) Biatain Adhesive Foam Dressing 5 X 5 bandage See Rx Instructions .Route Qty: 10 0RF Rx Instructions: As directed metformin 500 mg tablet 500 mg PO QAM Patient Comments: TAKE 1 TABLET BY MOUTH WITH BREAKFAST Xifaxan 550 mg tablet 550 mg PO BID Patient Comments: TAKE 1 TABLET BY MOUTH TWICE A DAY FOR 1 MONTH midodrine 10 mg tablet 10 mg PO TID Patient Comments: PLEASE SEE ATTACHED FOR DETAILED DIRECTIONS spironolactone 50 mg tablet 50 mg PO QAM 30 Days Qty: 30 1RF ferrous sulfate 325 mg (65 mg iron) tablet 325 mg PO DAILY Patient Comments: TAKE 1 TABLET BY MOUTH DAILY WITH ORANGE JUICE. -DO NOT GIVE CAFFEINE furosemide 20 mg tablet 40 mg PO QAM Discontinued lactulose 20 gram/30 mL solution 20 g PO TID Qty: 3000 0RF hydrocortisone acetate [Anusol-HC] 25 mg suppository 25 mg OK QDAY Qty: 7 0RF Rx Instructions: take suppository at night cefuroxime axetil 500 mg Tablet 500 mg PO BID Referrals: Stacy Graff FNP [Primary Care Provider] - Patient/Caregiver Discharge Instructions Discharge Activity: resume usual activities Education Materials: Upper GI Endoscopy, Understanding Cirrhosis, Anatomy of the Digestive System Print Language: Hungarian Activity Restrictions/Additional Instructions: Please follow up with primary care doctor with in 2-5 days sooner if needed. nina edwards today and make a appointment. Stand Alone Forms: Mervat Award Info., Patient Portal Info Letter Discharge Order Discharge Orders: Discharge (Routine); Ordered 01/31/24 Ordered By: Nasima Rossy Quality Discharge Quality Measures VTE prophylaxis Attestestation MD Attestation I reviewed labs, imaging, EKG, home medications and prior available records. Face to face evaluation was performed by me. I have personally examined the patient and discussed assessment and plan with the IM team. I reviewed the resident note and agree with the plan with exceptions as below. 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 Monitor BP. Mental status improved. Continue lactulose and rifaximin. Monitor for BMs. Decrease lactulose dose in case she has more than 3 bowel movements in 24 hours. Status post 2 PRBC transfusion. H&H improved. Monitor H&H. Consulted GI: Recommended EGD. Status post EGD that showed esophageal varices s/p banding. Continue IV octreotide for 5 days. She finished today. Monitor platelet level. Monitor H&H. Monitor for bleeding. Follow-up with the liver transplant clinic as outpatient. She has an appointment in February. Continue alcohol abstinence. Time spent is 40 minutes. More than 50% of the time was spent on patient education and coordination of care.
[2024-01-31 20:00] VITALS: BP 121/74; PULSE 78; RESP 18; TEMP 36.3; O2SAT 95
--- NOTE | 2024-01-31 22:23 | PD.IMPROG ---
Documentation for date of: 01/31/24 Subjective Subjective Interval history: Late entry for the note Case discussed with the attending RN as well as the internal medicine team Okay to discharge the patient home to be followed by the PCP Exam Vital Signs Temp Pulse Resp BP Pulse Ox O2 Del Method O2 Flow Rate 97.4 F 78 18 121/74 95 Room Air 3 01/31/24 20:00 01/31/24 20:00 01/31/24 20:00 01/31/24 20:00 01/31/24 20:00 01/31/24 20:00 01/28/24 17:25 Objective Labs 01/31/24 05:40 01/31/24 05:40 Labs: Laboratory Results - last 24 hr 01/31/24 05:40 WBC 3.2 L RBC 3.09 L Hgb 10.1 L Hct 31.4 L MCV 102 H MCH 32.7 MCHC 32.2 RDW Std Deviation 78.7 H Plt Count 35 L D Neut % (Auto) 50 Lymph % (Auto) 34 [place] % (Auto) 9 Eos % (Auto) 5 Baso % (Auto) 1 Neut # (Auto) 1.6 L Lymph # (Auto) 1.1 [place] # (Auto) 0.3 Eos # (Auto) 0.2 Baso # (Auto) 0.0 Immature Gran # (Auto) 0.01 H Absolute Nucleated RBC 0.00 Immature Gran % 0 Nucleated RBC % 0 Sodium 137 Potassium 4.1 Chloride 106 Carbon Dioxide 23.3 Anion Gap 8 BUN < 5 L Creatinine 0.7 Estim Creat Clear Calc 87.2 eGFR > 60 BUN/Creatinine Ratio 7 L Glucose [address] Glu mg/dL 85 Hemoglobin A1c 4.6 L Calculated Osmolality 277 Calcium 7.7 L Corrected Calcium 9.1 Phosphorus 2.6 Magnesium 1.7 Total Bilirubin 5.1 H AST 50 H ALT 19 Alkaline Phosphatase 130 H Total Protein 6.0 Albumin 2.3 L Globulin 3.7 H Albumin/Globulin Ratio 0.6 L Misc Test Result Platelets confirmed Impressions Impression: # Upper GI bleeding secondary to esophageal variceal bleeding requiring band ligation Plan As under HPI Assessment & Plan A&P Narrative # Acute upper GI bleed most likely secondary to esophageal variceal bleeding or hypertensive portal gastropathy leading to mucosal oozing of blood Plan N.p.o. Octreotide infusion at 50 mcg/h serial CBC Transfuse if the hemoglobin drops below 7 g We will consider doing a fiberoptic upper endoscopy once patient mental status improves #Acute hepatic encephalopathy Recommend lactulose and Xifaxan Will follow the patient Thank you very much for the opportunity to participate in the care of this patient Time Spent With Patient Time: Total time spent is greater than 50% in coordination of care (as documented) at patient's floor/unit and/or counseling patient:
--- NOTE | 2024-02-01 12:15 | PC.CM ---
Addendum entered by Brennon Ac RN 02/01/24 12:22: HH referral sent on [facility] to [facility]. Awaiting responses. Pending start of care date. Original Note: Per SS notes pt is open to [facility].
--- NOTE | 2024-02-05 08:57 | PC.CM ---
I reached out to [facility] to see if they can accept. They declined patient on [facility].
--- NOTE | 2024-02-06 14:21 | PC.CM ---
Addendum entered by Brennon Ac RN 02/06/24 14:22: Pt is back in the ED and HH referral is canceled. Original Note: [facility] was open with the pt. But they declined the pt. I resent the HH referral again today to all the HH agencies and 11 declined the pt.
== END 2024-01-31 20:40 | disposition home or self-care (01) | DRG 241 ==
LOC: SERX 15:59 → SERHOLD 16:52 → S2NX 22:29
PROVIDERS: Nurse Practitioner Family; Physician Assistant; Specialist; Admitting Provider Student in an Organized Health Care Education/Training Program; Emergency Provider Emergency Medicine; PCP Nurse Practitioner Family; Visit Provider Student in an Organized Health Care Education/Training Program
PROC: 06L38CZ Occlusion of Esophageal Vein with Extraluminal Device, Via Natural or Artificial Opening Endoscopic (ICD-10-PCS; CPT 43239; principal; 2024-01-28 16:30)
DX: K29.01 Acute gastritis with bleeding (principal); K70.30 Alcoholic cirrhosis of liver without ascites; I85.11 Secondary esophageal varices with bleeding; K76.82 Hepatic encephalopathy; K76.6 Portal hypertension; D61.818 Other pancytopenia; K72.10 Chronic hepatic failure without coma; E11.9 Type 2 diabetes mellitus without complications; K31.89 Other diseases of stomach and duodenum
CPT/HCPCS: 36415; 36430; 80053; 81001; 81025; 82140; 83036; 83690; 83735; 84100; 84484; 84703; 85025; 85610; 85730; 86850; 86900; 86901; 86923; 87081; 87811; 93005; 96374; 96375; 96376; 99285; A4217; A4649; J0696; J1200; J2250; J2354; J2405; J2470; J3010; J7030; J7050; P9016; A9270

== ENCOUNTER 2024-02-06 12:21 | Inpatient (IN) | payer MEDICAID, SELFPAY ==
[2024-02-06] VITALS (47 sets, daily range): BP systolic 81–130; BP diastolic 42–99; PULSE 48–98; RESP 6–18; TEMP 36.4–36.8; O2SAT 97–100; BMI 32.3; BMI 30.2
--- NOTE | 2024-02-06 12:34 | EKG_ITS ---
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
--- NOTE | 2024-02-06 12:34 | XR_ITS ---
Examination: AP chest single view TECHNIQUE: AP sitting portable chest single view Exam date and time: February 06, 2024 1315 hours INDICATIONS: Shortness of breath today. FINDINGS: Poor inspiratory effort Mild vascular congestion. No lobar pneumonia IMPRESSION: Poor inspiratory effort chest x-ray
--- NOTE | 2024-02-06 12:35 | PD.EDRME ---
Rapid Medical Screening Exam RME Arrival date/time: 02/06/24 12:21 51-year-old female with cirrhosis presents emergency department with mother who reports that the patient has nausea, vomiting, generalized weakness Chief Complaint: General Adult/Misc Complain Vital signs: Vital Signs Temperature 98.0 F 02/06/24 12:30 Pulse Rate 51 L 02/06/24 12:30 Respiratory Rate 16 02/06/24 12:30 Blood Pressure 95/60 02/06/24 12:30 Pulse Oximetry (%) 100 02/06/24 12:30 Oxygen Delivery Method Room Air 02/06/24 12:30
--- NOTE | 2024-02-06 12:49 | PD.EDRME ---
Rapid Medical Screening Exam RME Arrival date/time: 02/06/24 12:21 02/06/24 12:21 51-year-old female with cirrhosis presents emergency department with mother who reports that the patient has nausea, vomiting, generalized weakness Chief Complaint: General Adult/Misc Complain Vital signs: Vital Signs Temperature 98.0 F 02/06/24 12:30 Pulse Rate 51 L 02/06/24 12:30 Respiratory Rate 16 02/06/24 12:30 Blood Pressure 95/60 02/06/24 12:30 Pulse Oximetry (%) 100 02/06/24 12:30 Oxygen Delivery Method Room Air 02/06/24 12:30 RME Narrative: 02/06/24 12:21 51-year-old female with cirrhosis presents emergency department with mother who reports that the patient has nausea, vomiting, generalized weakness
[2024-02-06 13:07] LABS: Basophils # (Auto) 0.1 Thou/mm3 (0.0-0.2); Basophils % (Auto) 1 % (0-2.5); Eosinophils # (Auto) 0.3 Thou/mm3 (0.0-0.5); Eosinophils % (Auto) 5 % (0-10); Hematocrit 32.5 % (36.0-46.0); Hemoglobin 10.8 g/dL (12.0-16.0); Immature Granulocytes % (Auto) 0 % (0-0); Immature Granulocytes Auto 0.02 Thou/mm3 (0.00-0.00); Lymphocytes # (Auto) 1.6 Thou/mm3 (1.0-4.8); Lymphocytes % (Auto) 30 % (10-50); Mean Corpuscular HGB Conc 33.2 g/dl (31.0-37.0); Mean Corpuscular Hemoglobin 33.3 pg (25.0-35.0); Mean Corpuscular Volume 100 fL (80-100); Monocytes # (Auto) 0.5 Thou/mm3 (0.0-0.8); Monocytes % (Auto) 9 % (0-12); Neutrophils % (Auto) 55 % (37-80); Nucleated Red Blood Cell % 0 /100 WBC (0); RDW Standard Deviation 80.4 fL (36.4-46.3); Red Blood Count 3.24 Miln/mm3 (4.00-5.20); White Blood Count 5.5 Thou/mm3 (3.6-11.0)
[2024-02-06 13:22] LABS: INR 1.7 (0.9-1.3); Partial Thromboplastin Time 35.6 Seconds (22.0-36.0); Prothrombin Time 17.9 Seconds (9.0-12.2)
[2024-02-06 13:28] LABS: B-Type Natriuretic Peptide 218 pg/mL (0-100)
[2024-02-06 13:30] LABS: Ammonia 254 uMol/L (11-32)
[2024-02-06 13:31] LABS: Alanine Aminotransferase 23 U/L (10-49); Albumin, Serum 2.4 gm/dL (3.5-5.0); Albumin/Globulin Ratio 0.6 (1.2-2.2); Alkaline Phosphatase 146 U/L (46-116); Anion Gap 7 (7-16); Aspartate Amino Transferase 34 U/L (0-34); BUN/Creatinine Ratio 15 Ratio (12-20); Bilirubin,Total 4.7 mg/dL (0.3-1.2); Blood Urea Nitrogen 20 mg/dL (9-23); Calcium 8.3 mg/dL (8.3-10.6); Calcium (Corrected) 9.6 mg/dL (8.5-10.1); Carbon Dioxide 25.5 mMol/L (20.0-31.0); Chloride 108 mMol/L (98-107); Creatinine (Component) 1.3 mg/dL (0.6-1.3); Estimated Creatinine Clearance 43.9 mL/min (>60); Globulin 3.9 gm/dL (2.3-3.5); Glucose 125 mg/dL (74-106); Osmolality,Calculated 283 (275-295); Potassium 4.2 mMol/L (3.4-5.1); Sodium 140 mMol/L (136-145); Total Protein 6.3 gm/dL (5.7-8.2); Troponin I < 0.002 ng/mL (0.0-0.045); eGFR 49 See Note
--- NOTE | 2024-02-06 14:02 | PD.EDWEAK ---
ED Weakness RME/HPI General Chief complaint: General Adult/Misc Complain Stated complaint: LOW B/P, VOMITING TODAY. END STAGE LIVER DISEASE Arrival date/time: 02/06/24 12:21 RME / HPI RME / HPI Narrative: 02/06/24 12:21 51-year-old female with cirrhosis presents emergency department with mother who reports that the patient has nausea, vomiting, generalized weakness DR. GUNTER MAIN ED EVALUATION 53 year old female with history of liver cirrhosis, end stage liver disease, diabetes, esophageal varices s/p band ligation, recent admissions 01/11-01/17 and 01/26-01/31 for GIB presents to the ED brought in by mother for evaluation of weakness today. Mother reports she noticed a change in mentation this morning and while measuring her blood pressure noted to be low. Stated patient was assisted out of the home by family and unable to walk on her own. Mother additionally reports nausea, nonblody vomiting, very dark stools, and dark radha color urine with blood today. While in the ED patient is altered and unable to provide any additional history. Related Data Home Medications ?Medication ?Instructions ?Recorded ?Confirmed tramadol 50 mg tablet 50 mg PO Q4HR PRN Pain 10/20/23 02/06/24 midodrine 10 mg tablet 10 mg PO TID 01/12/24 02/06/24 rifaximin 550 mg tablet (Xifaxan) 550 mg PO BID 01/12/24 02/06/24 ferrous sulfate 325 mg (65 mg 325 mg PO DAILY 01/22/24 02/06/24 iron) tablet furosemide 20 mg tablet 40 mg PO QAM 01/22/24 02/06/24 cefuroxime axetil 500 mg tablet 500 mg PO BID 02/06/24 02/06/24 ergocalciferol (vitamin D2) 1,250 1,250 mcg PO QWEEK 02/06/24 02/06/24 mcg (50,000 unit) capsule (Vitamin D2) hydrocodone 5 mg-acetaminophen 325 1 tab PO TID PRN Mouth Pain 02/06/24 02/06/24 mg tablet hydrocortisone acetate 25 mg 25 mg GA QDAY 02/06/24 02/06/24 rectal suppository (Anucort-HC) lidocaine HCl 2 % mucosal solution 5 ml PO 6 TIMES DAILY PRN Pain 02/06/24 02/06/24 (Lidocaine Viscous) methocarbamol 750 mg tablet 750 mg PO BID 02/06/24 02/06/24 mupirocin 2 % topical ointment 1 applic topical BID PRN Mouth Pain 02/06/24 02/06/24 spironolactone 50 mg tablet 25 mg PO 4XD 02/06/24 02/06/24 Previous Rx's ?Medication ?Instructions ?Recorded pantoprazole 40 mg tablet,delayed 40 mg PO QDAY #30 tabs 10/15/23 release foam bandage 5 X 5 (Biatain #10 ea 10/25/23 Adhesive Foam Dressing) lactulose 20 gram/30 mL oral 30 g (45 mL) PO TID 30 days #4,050 01/31/24 solution mL Allergies Allergy/AdvReac Type Severity Reaction Status Date / Time latex Allergy Severe Hives Verified 02/06/24 12:24 Review of Systems Review of Systems ROS Unobtainable: unobtainable due to mental status Past Medical History Past Medical History NEUROLOGIC: Positive Neurological Disorders, Migraine and Spinal Cord Injury CARDIAC: Positive Cardiac Disorders and Hypotension GASTROINTESTINAL: Positive Gastrointestinal Disorders, Cirrhosis, Gastrointestinal Bleed and Esophageal Varices REPRODUCTIVE: Positive Endometriosis and Previous Pregnancies MUSCULOSKELETAL: Positive Musculoskeletal Disorders ENDOCRINE: Positive Endocrine Disorders and Diabetes Mellitus Type 2 HEMATOLOGIC: Positive Blood Disorders and Anemia PSYCHO/SOCIAL: Positive Depression and Anxiety OTHER HISTORY: Positive Blood Transfusions Family History FAMILY HISTORY: Positive Family Psychiatric Problems and Family Cancer Surgical History SURGICAL: Positive Section Social History SMOKING STATUS: Never smoker SECOND HAND EXPOSURE: No SUBSTANCE USE: marijuana ED Exam Narrative Physical exam: GENERAL APPEARANCE: Confused, lethargic, somnolent however does follow commands with aroused, generalized weakness VITALS: All vitals were reviewed and the pulse ox is 100% on room air which is normal according to my interpretation. HEENT: Normocephalic, atramatic, EOMI, scleral icterus, EACs are patent. There is no bulge or retraction. Throat without erythema or exudate. Moist oromucosa. No jaundice NECK: Supple, no JVD or bruits. CARDIOVASCULAR: Heart regular without S3-S4 or murmur. No rubs or gallops. LUNGS/CHEST: Clear to auscultation bilaterally. No rales, rhonchi, or wheezing. Normal inspection. ABDOMEN: Soft, mildly distended, nontender, with normal bowel sounds. No pulsatile masses. No rebound, rigidity, or guarding. No incarcerated hernia. EXTREMITIES: Ecchymosis on forearms consistent with recent blood draws and IV's. No edema, clubbing, or cyanosis. Intact CSM SKIN: Jaundice. Warm and dry without rashes. MUSCULOSKELETAL: Normal inspection. No gross deformity, full ROM all extremities NEURO: Confused, lethargic, somnolent however does follow commands when aroused, generalized weakness Course Quality Measures none Orders Category Date Time Status Patient Condition Routine Admission 02/06/24 15:00 Ordered Aspiration precautions NOW Care 02/06/24 15:00 Active EKG (ED ONLY) *Do not use* NOW Care 02/06/24 12:34 Completed Head of Bed Elevation NOW Care 02/06/24 15:00 Active Insert NG / OG tube NOW Care 02/06/24 15:00 Active Notify provider NEEDED Care 02/06/24 15:00 Active EKG (ED Only) Stat Exams 02/06/24 12:34 Draft XR chest 1V portable Stat Exams 02/06/24 12:34 Completed Ammonia Stat Lab 02/06/24 12:54 Completed B-Type Natriuretic Peptide Stat Lab 02/06/24 12:54 Completed CBC Stat Lab 02/06/24 12:54 Completed Comprehensive Metabolic Panel Stat Lab 02/06/24 12:54 Completed Drug Screen,Urine Stat Lab 02/06/24 12:34 Ordered Drug Screen,Urine Stat Lab 02/06/24 14:17 Ordered HCG,Qualitative Serum Stat Lab 02/06/24 12:54 Completed Magnesium Stat Lab 02/06/24 12:54 Completed Partial Thromboplastin Time Stat Lab 02/06/24 12:54 Completed Prothrombin Time with INR Stat Lab 02/06/24 12:54 Completed Troponin I Stat Lab 02/06/24 12:54 Completed Urinalysis Stat Lab 02/06/24 12:34 Ordered Lactulose Syrup [Enulose Syrup] Med 02/06/24 14:16 Discontinued 20 gm PO X1 STA Midodrine [Proamatine] Med 02/06/24 15:00 Discontinued 5 mg PO BID Code Status Routine Oth 02/06/24 15:00 Ordered Vital Signs Vital signs: Vital Signs Temperature 98.0 F 02/06/24 12:30 Pulse Rate 51 L 02/06/24 12:30 Respiratory Rate 16 02/06/24 12:30 Blood Pressure 95/60 02/06/24 12:30 Pulse Oximetry (%) 100 02/06/24 12:30 Oxygen Delivery Method Room Air 02/06/24 12:30 Weakness MDM Narrative MDM Narrative:: I, Sabrina Cherry, am scribing for and in the presence of Dr. Gunter. The patient is here for having increasing confusion and lethargy and somnolence today. CBC is remarkable for a platelet of 50,000 which is chronic for her. She had a history of liver cirrhosis. CMP is remarkable for total bilirubin of 4.7. Which is consistent with liver cirrhosis. Pro time is 18 coagulopathy secondary to liver cirrhosis. Magnesium is negative. Troponin is negative. BNP is 219. But no evidence of CHF on exam and on the chest x-ray. Ammonia is stanley high at 254 which is the cause for her confusion and lethargy and somnolence. Talk screen is negative. test is negative. Chest x-ray interpreted by me: Poor poor inspiration pattern. Difficult to interpret. Otherwise grossly normal. Heart normal. Mediastinum normal. Normal bones. And no evidence of pneumothorax. Twelve-lead EKG that was done at 12:46 PM and interpreted by me: Sinus rhythm. Heart rate of 50. Normal axis. No ST elevation or depression. No PVC. No STEMI. Regular rate and rhythm. In the emergency department I initiated treatment with lactulose by mouth. 2:30 PM, I spoke to and discussed with , resident of Dr. Glover hospitalist on-call. She agreed to admit the patient for further evaluation and treatment. Thank you very much Critical care time is 35 minutes excluding any procedure. The high probability of sudden, clinically significant deterioration in the patient?s condition required the highest level of my preparedness to intervene urgently. The services I provided to this patient were to treat and/or prevent clinically significant deterioration. Services included the following: chart data review, reviewing nursing notes and/or old charts, documentation time, information services consultant collaboration regarding findings and treatment options, medication orders and management, direct patient care, vital sign assessments and ordering, interpreting and reviewing diagnostic studies and lab tests. Aggregate critical care time includes only time during which I was engaged in work directly related to the patient?s care, as described above, whether at bedside or elsewhere in the Emergency Department. It did not include time spent performing other reported procedures or the services of residents, students, nurses or physician assistants. Patient data External records reviewed:: [facility] previous records (I reviewed admission from 01/26-02/01/2024 for GIB) Clinical information provided by:: parent (Mother provided pmhx and hpi ) Social determinants that could affect healthcare access:: none Patient has the following chronic illnesses:: liver cirrhosis, end stage liver disease, diabetes, esophageal varices s/p band ligation, recent admissions 01/11-01/17 and 01/26-01/31 for GIB How is presenting disease/condition affected by chronic disease/condition?: exacerbated by Evaluation data The following diagnostics were reviewed and interpreted by me:: lab results, radiology exam(s) and EKG tracing(s) Lab and/or radiology exams considered but not ordered:: None Interpretation Summary: Ordering Physician: Cipriano RUBI),Kamron SINGH Date of Service: 02/06/24 Procedure(s): XR chest 1V portable Accession Number(s): [id number] cc: Stacy Graff [employer]; Cipriano RUBI)Kamron NP; Aiden Drew MD~ Examination: AP chest single view TECHNIQUE: AP sitting portable chest single view Exam date and time: February 06, 2024 1315 hours INDICATIONS: Shortness of breath today. FINDINGS: Poor inspiratory effort Mild vascular congestion. No lobar pneumonia IMPRESSION: Poor inspiratory effort chest x-ray Dictated By: Aiden Drew MD Signed By: <Electronically signed by Aiden Drew MD in OV> 02/06/24 1340 Medications / Prescriptions Medications or Prescriptions considered but not ordered:: None Medication administrations:: Medication Administration History Dextrose (Dextrose 50%-Water Inj 50 Ml Syringe) 25 ml IV Q15MIN PRN PRN Reason: BG 50-70 responsive npo pt Stop: 03/07/24 15:13 Dextrose (Dextrose 50%-Water Inj 50 Ml Syringe) 50 ml IV Q15MIN PRN PRN Reason: BG <50 OR BG <70 & pt unresponsive Stop: 03/07/24 15:13 Glucagon (Glucagon Inj 1 Mg Vial) 1 mg IM Q15MIN PRN PRN Reason: BG <70, and no IV access Ceftriaxone Sodium/Dextrose (Rocephin/D5w 1gm Iv Premix) 50 mls @ 100 mls/hr IV QDAY CELINA Stop: 02/13/24 15:31 Insulin Human Lispro (Insulin Lispro (Admelog) 1 Unit/0.01 Ml Unit) 0 unit SC Q6HR CELINA; Protocol Stop: 03/07/24 17:59 Lactulose (Lactulose Syrup 20 Gm/30 Ml Udc) 20 gm NG TID CELINA; Protocol Stop: 03/07/24 21:59 Midodrine (Midodrine 5 Mg Tablet) 10 mg NG BID CELINA Stop: 03/07/24 15:14 Pantoprazole Sodium (Pantoprazole Inj 40 Mg Vial) 40 mg IVP Q12HR CELINA Stop: 03/07/24 20:59 Rifaximin (Rifaximin 550 Mg Tablet) 550 mg NG BID CELINA Stop: 02/13/24 20:59 Discontinued Medications Lactated Ringer's (Lactated Ringers) 250 mls @ 999 mls/hr IV .Q16M ONE Stop: 02/06/24 15:43 Last Admin: 02/06/24 17:27 Dose: Not Given Documented By: GM Non-Admin Reason: Duplicate Medication on eMAR Lactated Ringer's (Lactated Ringers) 250 mls @ 999 mls/hr IV .Q16M ONE Stop: 02/06/24 16:15 Last Infusion: 02/06/24 17:25 Dose: Infused Documented By: Admin: 02/06/24 15:53 Dose: 999 mls/hr Documented By: GM Lactulose (Lactulose Syrup 20 Gm/30 Ml Udc) 20 gm PO X1 STA; Protocol Stop: 02/06/24 14:17 Midodrine (Midodrine 5 Mg Tablet) 5 mg PO BID [facility] Stop: 03/07/24 14:59 Last Admin: 02/06/24 17:28 Dose: Not Given Documented By: GM Non-Admin Reason: Discontinued Midodrine (Midodrine 5 Mg Tablet) 10 mg PO BID [facility] Stop: 03/07/24 20:59 See above Consultations Consultation(s) initiated? (list below): Yes Consultation #1 (Physician, Specialty, Details): I spoke with resident Dr. Muniz workign with Dr. Glover. Discussed patients PMHx, HPI, ED course, exam findings, labs, and radiology results. The hospitalist agree to accept the patient for admission. Diagnosis Weakness Differential Diagnosis: anemia, hypoglycemia, hypothyroidism, rhabdomyolysis, sepsis, dehydration and other (Hepatic encephalopathy ) Most likely diagnosis given after review of the tests above:: Acute hepatic encephalopathy Liver cirrhosis Admission Indicated Admission indicated?: indicated Admission Request Was there a request for admission?: Yes Admission Attestation Admission request attestation: Discussed case with [] from Hospitalist service regarding admission. Discussed patients ED course, exam findings, labs, and radiology results. The Hospitalist [agrees,declines] to accept the patient for admission. Disposition Plan Disposition Plan: Admit Discharge Plan Plan Patient Disposition: Admit Acute Care w/in Hospital Disposition Comment: Stable for admit Problem List Clinical Impression: Acute hepatic encephalopathy, Cirrhosis
[2024-02-06 14:11] LABS: Platelet Count 50 Thou/mm3 (140-440)
[2024-02-06 14:13] LABS: Slide Review Platelets confirmed
--- NOTE | 2024-02-06 15:19 | ESHP_ITS ---
<Statement entered by Heike Muniz MD - 02/06/24 20:55> 53-year-old female with PMH of type 2 diabetes, alcoholic cirrhosis, and drug use with recent admission for GI bleed came to ED with CC of AMS ,He ammonia was noted to be high, lactulose was ordered , but parient was lethargic and was unable to follow commands, NG tube was inserted .Midodrine and bolus of fluid given with albumin. He Blood pressure continues to be below MAP less than 65.ICU was consulted for pressure support and close monitor of her mental status.She is scheduled for consultation with transplant specialist on February 13, 2024. I discussed with and supervised my co-resident involved in the care of this patient. I agree with the assessment and plan as documented above. Heike Muniz,PGY-3 Disclaimer: Despite multiple revisions, due to the dictation software being used, the document below may not be free of grammatical errors including phonetic/typographic errors. However, this does not deter from our commitment to providing health care in the patient's best interest in mind. Documentation for date of: 02/06/24 HPI History of Present Illness Chief complaint: altered mental status History of present illness: Due to patient's mental status, most of the history was gained from the mother at the bedside and from chart review. The patient is a 53-year-old female with previous medical history of type 2 diabetes, alcoholic cirrhosis, and drug use with recent admission for who was brought to the ED due to altered mental status. According to the mother, she woke up today somnolent, was nauseous and tried to vomit, but nothing came out. She also noticed dark bloody stools and blood-tinged urine. She also reported that her daughter complained of headache in the previous days. She is scheduled for consultation with transplant specialist on February 13, 2024. ED course: Patient was lethargic, blood pressure 95/60, heart rate 51, afebrile, saturating well on room air. Pertinent labs are hemoglobin 10.8, platelets 50, PT 17.9, INR 1.7, BUN 20, creatinine 1.3, EGFR 49, glucose 125, T. bili of 4.7, ALP 148, ammonia 254, BNP 218, albumin 2.4. Chest x-ray negative for pneumonia. Urinalysis, U tox is pending. She was admitted for hepatic encephalopathy and decompensated liver cirrhosis and suspicion for GI bleed. Review of Systems Review of Systems ROS Unobtainable: unobtainable due to mental status and unobtainable due to medical condition Past Medical History Past Medical History NEUROLOGIC: Positive Neurological Disorders, Migraine and Spinal Cord Injury CARDIAC: Positive Cardiac Disorders and Hypotension GASTROINTESTINAL: Positive Gastrointestinal Disorders, Cirrhosis, Gastrointestinal Bleed and Esophageal Varices REPRODUCTIVE: Positive Endometriosis and Previous Pregnancies MUSCULOSKELETAL: Positive Musculoskeletal Disorders ENDOCRINE: Positive Endocrine Disorders and Diabetes Mellitus Type 2 HEMATOLOGIC: Positive Blood Disorders and Anemia PSYCHO/SOCIAL: Positive Depression and Anxiety OTHER HISTORY: Positive Blood Transfusions Family History FAMILY HISTORY: Positive Family Psychiatric Problems and Family Cancer Surgical History SURGICAL: Positive Section Social History SMOKING STATUS: Never smoker SECOND HAND EXPOSURE: No SUBSTANCE USE: marijuana Exam Vital Signs Temp Pulse Resp BP Pulse Ox O2 Del Method 98.0 F 51 L 16 95/60 100 Room Air 02/06/24 12:30 02/06/24 12:30 02/06/24 12:30 02/06/24 12:30 02/06/24 12:30 02/06/24 12:30 Narrative Exam Physical Exam General: Lethargic. GCS 9. HEENT: Normocephalic, atraumatic, mucous membranes moist. Heart: Regular rate and rhythm, no murmurs. Lungs: Clear to auscultation with no wheezing or crackles. Abdomen: Soft, distended, tender, positive bowel sounds. ?No guarding or rebound tenderness. Neurologic: Alert and oriented x0, does not follow commands, opens eyes to the voice and sternal rub. Extremities: No edema. Skin: No rash or ecchymoses. Results: Labs 02/07/24 05:48 02/07/24 05:48 Labs: Short CBC 02/06/24 Range/Units 12:54 WBC 5.5 D (3.6-11.0) Thou/mm3 Hgb 10.8 L (12.0-16.0) g/dL Hct 32.5 L (36.0-46.0) % Plt Count 50 L D (140-440) Thou/mm3 BMP 02/06/24 12:54 Sodium 140 Potassium 4.2 Chloride 108 H Carbon Dioxide 25.5 BUN 20 Creatinine 1.3 D Glucose 125 H Calcium 8.3 Cardiac Enzymes 02/06/24 Range/Units 12:54 Troponin I < 0.002 (0.0-0.045) ng/mL Liver Function 02/06/24 Range/Units 12:54 Total Bilirubin 4.7 H (0.3-1.2) mg/dL AST 34 (0-34) U/L ALT 23 (10-49) U/L Alkaline Phosphatase 146 H (46-116) U/L Albumin 2.4 L (3.5-5.0) gm/dL Quality Measures Quality Measures none (due suspicion for GI bleed) Medications Home Medications and Allergies Home Medications ?Medication ?Instructions ?Recorded ?Confirmed ?Type tramadol 50 mg tablet 50 mg PO Q4HR PRN Pain 10/20/23 02/06/24 History midodrine 10 mg tablet 10 mg PO TID 01/12/24 02/06/24 History rifaximin 550 mg tablet (Xifaxan) 550 mg PO BID 01/12/24 02/06/24 History ferrous sulfate 325 mg (65 mg 325 mg PO DAILY 01/22/24 02/06/24 History iron) tablet furosemide 20 mg tablet 40 mg PO QAM 01/22/24 02/06/24 History cefuroxime axetil 500 mg tablet 500 mg PO BID 02/06/24 02/06/24 History ergocalciferol (vitamin D2) 1,250 1,250 mcg PO QWEEK 02/06/24 02/06/24 History mcg (50,000 unit) capsule (Vitamin D2) hydrocodone 5 mg-acetaminophen 325 1 tab PO TID PRN Mouth Pain 02/06/24 02/06/24 History mg tablet hydrocortisone acetate 25 mg 25 mg ND QDAY 02/06/24 02/06/24 History rectal suppository (Anucort-HC) lidocaine HCl 2 % mucosal solution 5 ml PO 6 TIMES DAILY PRN Pain 02/06/24 02/06/24 History (Lidocaine Viscous) methocarbamol 750 mg tablet 750 mg PO BID 02/06/24 02/06/24 History mupirocin 2 % topical ointment 1 applic topical BID PRN Mouth Pain 02/06/24 02/06/24 History spironolactone 50 mg tablet 25 mg PO 4XD 02/06/24 02/06/24 History Allergies Allergy/AdvReac Type Severity Reaction Status Date / Time latex Allergy Severe Hives Verified 02/06/24 12:24 Visit Medications Dextrose (Dextrose 50%-Water Inj 50 Ml Syringe) 25 ml IV Q15MIN PRN PRN Reason: BG 50-70 responsive npo pt Stop: 03/07/24 15:13 Dextrose (Dextrose 50%-Water Inj 50 Ml Syringe) 50 ml IV Q15MIN PRN PRN Reason: BG <50 OR BG <70 & pt unresponsive Stop: 03/07/24 15:13 Glucagon (Glucagon Inj 1 Mg Vial) 1 mg IM Q15MIN PRN PRN Reason: BG <70, and no IV access Insulin Human Lispro (Insulin Lispro (Admelog) 1 Unit/0.01 Ml Unit) 0 unit SC Q6HR CELINA; Protocol Stop: 03/07/24 17:59 Lactulose (Lactulose Syrup 20 Gm/30 Ml Udc) 20 gm NG TID CELINA; Protocol Stop: 03/07/24 21:59 Midodrine (Midodrine 5 Mg Tablet) 10 mg NG BID CELINA Stop: 03/07/24 15:14 Pantoprazole Sodium (Pantoprazole Inj 40 Mg Vial) 40 mg IVP Q12HR CELINA Stop: 03/07/24 20:59 Discontinued Medications Lactulose (Lactulose Syrup 20 Gm/30 Ml Udc) 20 gm PO X1 STA; Protocol Stop: 02/06/24 14:17 Midodrine (Midodrine 5 Mg Tablet) 5 mg PO BID CELINA Stop: 03/07/24 14:59 Midodrine (Midodrine 5 Mg Tablet) 10 mg PO BID CELINA Stop: 03/07/24 20:59 Assessment & Plan Plan The patient is a 53-year-old female with previous medical history of type 2 diabetes, alcoholic cirrhosis, and drug use with recent admission for who was brought to the ED due to altered mental status. According to the mother, she woke up today somnolent, was nauseous and tried to vomit, but nothing came out. She also noticed dark bloody stools and blood-tinged urine. She also reported that her daughter complained of headache in the previous days. She was admitted for decompensated liver cirrhosis and hepatic encephalopathy. #Hepatic encephalopathy #Hyperammonemia #Hypotension Decompensated liver cirrhosis due to possible GI bleed. Low BP possibly in the setting of splanchnic vasodilation caused by suspected hepatorenal syndrome. Plan: ?Insert NG tube - Lactulose 20 TID, titrate to 2-3 BM per day - rifaximin 550mg BID - ceftriaxone 1 gm daily IV 02/06/24 ? Normal saline 250 mL bolus once - Albumin 25 gm IV once ?Aspiration precautions, head of bed elevation 30 degrees - Monitor MAP #Decompensated liver cirrhosis #Esophageal varices #Melena Patient has a history of liver cirrhosis and history of alcoholism. MELD score 21, 19.6% estimated 3-month moprtality. Child-Paniagua score of 12. Recent hospitalization in January 2024 previously, for variceal bleeding, patient had EGD with varices ligation, received 2 units of pRBC. Plan: ? Lactulose 20 g 3 times daily, titrate to 2-3 bowel movements a day ? Pantoprazole 40 mg IV twice daily - Octreotide 50 mcg bolus once, then drip 50 mcg/hr ?GI consulted, pending recommendations #LILY Creatinine 1.3, BUN 20. Ddx: Prerenal vs hepatorenal syndrome 01/30: Previous creatinine level 0.7 Plan: ?Monitor daily CMP - Albumin 25 gm IV once #Coagulopathy #Thrombocytopenia #Hyperbilirubinemia #Hypoalbuminemia Plan: - monitor daily CMP, platelets #Anemia, normocytic 02/05: Hemoglobin 10.8 - monitor Hgb, transfuse if <7 #Unspecified back injury Plan: ?Pain control if needed #T2DM Plan: ? Insulin sliding scale with Accu-Cheks Health maintenance: DVT prophylaxis: SCDs GI prophylaxis: Protonix Diet: regular diet Disposition: MedTele Code status: Full code Plan of care discussed with attending Dr. Glover and PGY-[address] Muniz. Nasreen Arellano MD, PGY 1. Attending Provider Attestation/Addendum I have discussed and was present for the essential components of the history, physical examination, diagnosis, and treatment plan with the resident. I agree with the patient's care as documented by the resident and amended herein by me. Dickson Glover DO. Although this document has been carefully reviewed, there may still be some phonetic and other typographical errors. These errors are purely grammatical due to imperfections in the software program and should not be construed in any way to compromise the substance of the patient's medical care during this visit.
--- NOTE | 2024-02-06 15:32 | PC.NURSE ---
Addendum entered by Nawaf Mcdaniels RN 02/06/24 15:33: give medications through* Original Note: RN spoke to DR. Muniz and given verbal order with readback, Perform nurse swallow screen first. If pt passes, ok to give PO mes; but if pt fails, proceed with NG/OG tube insertion and give medications though NG/OG tube.
--- NOTE | 2024-02-06 15:40 | PC.NURSE ---
@1540- PHARMACY CALLED [facility] ASKED IF ABLE TO BRING 250ML OR 500ML BAG OF LR; PER PHARMACY, WE DO NOT CARRY THOSE, BUT CALL [facility] AND IF THEY DO NOT CARRY IT, CALL US BACK. @1542- [facility] CALLED AND ASKED IF THEY CARRY 250ML OR 500ML OF LR; PER [facility], THERESA, NO WE DO NOT. @1543- PHARMACY CALLED AGAIN AND MADE AWARE THAT [facility] DOES NOT HAVE 250ML OR 500ML LR BAGS BUT ER DEPT. DOES HAVE 1,000ML LR BAGS. PER PHARMACY, I WILL CHANGE THE ORDER TO ALLOW YOU TO SCAN THE 1,000ML LR BAG BUT JUST ADMINISTER THE 250ML OF THE LR PER DOCTOR'S ORDER.
[2024-02-06] MEDS: RINGERS LACTATED 1000 ML 250 ML 999 ML IV (15:53)
[2024-02-06 16:00] LABS: HCG,Qualitative Serum Negative
--- NOTE | 2024-02-06 16:04 | PC.NURSE ---
Addendum entered by Nawaf Mcdaniels RN 02/06/24 18:51: @1737- SPOKE TO DR. WINTER; PER , OK TO USE NG TUBE AT THIS TIME. Addendum entered by Nawaf Mcdaniels RN 02/06/24 17:24: @1724- SPOKE TO DR. WINTER AND MADE AWARE OF DELAY IN CXR RESULTS FOR CONFIRMATION OF NG PLACEMENT; PER DR. COBURN, WILL TAKE A LOOK AT PT'S CXR AND CALL YOU BACK TO LET YOU KNOW IF NG TUBE IS OK TO USE. Addendum entered by Nawaf Mcdaniels RN 02/06/24 17:20: @1700- CXR FOR NG TUBE PLACEMENT CONFIRMATION STILL NOT REPORTED AT THIS TIME. @1720- XR CALLED FOR UPDATE REGARDING WHEN PT'S CXR WILL BE RESULTED; PER POACHER OPERATOR, RADIOLOGIST UNABLE AT THIS TIME. I DON'TNOW WHEN HIS CR WILL BE RESULTED FOR NOW. Original Note: NG TUBE INSERTED AT THIS TIME; WIATING FOR CHEST XRAY TO RESULT TO CONFIRM NG TUBE PLACEMENT. HOLDING MEDS AT THIS TIME UNTIL PLACEMENT CONFIRMED FOR NG TUBE.
--- NOTE | 2024-02-06 16:05 | XR_ITS ---
Examination: AP chest single view Technique one AP portable chest single view Indications: Post orogastric tube placement Exam date and time: February 06, 2024 1612 hrs. Findings: Orogastric tube sidehole at the GE junction Normal heart size Lungs are clear Impression: Advance the orogastric tube 5 cm
[2024-02-06] MEDS: MIDODRINE 5 MG TABLET 10 MG NG ×2 (17:39→22:07)
[2024-02-06] MEDS: cefTRIAXone/D5w 1gm IV premix 50 ML IV (17:47)
[2024-02-06] MEDS: LACTULOSE SYRUP 20 GM/30 ML UDC PO (17:47)
--- NOTE | 2024-02-06 18:00 | PC.NURSE ---
DR. GARCIA AT BEDSIDE; PER DR. GARCIA, PLEASE CONNECT PT'S NG TUBE TO LOW INTERMITTENT SUCTION.
--- NOTE | 2024-02-06 18:07 | PD.RESEVENT ---
Documentation for date of: 02/06/24 Event Note Event Note: Since admission, patient continues to be hypotensive MAP<65 and lethargic, encephalopathic GCS of 9, after the bolus of 250 ml RL continues to have MAP<60. NG tube was put in, patient will receive PO medications. Will start her on midodrine, albumin 25 gm once. Spoke with delivery motorcycle driver Dr. Hensley and ICU team regarding the patient, pending recommendations regarding further plan of care. Plan of care discussed with attending Dr. Glover. Nasreen Arellano MD, PGY 1.
--- NOTE | 2024-02-06 18:27 | PD.RESCONSUL ---
HPI Data of Consult Requesting Physician: Mateo Glover DO Admitting Provider: Mateo Glover DO Attending Provider: Mateo Glover DO Primary Care Provider: LETI Catherine Consult Narrative Reason for consult: AMS, hypotension History of present illness: Patient is a 53 years old female with past medical history of type 2 diabetes, alcoholic cirrhosis, and drug use was brought to the ED due to altered mental status. According to the mother, she woke up today somnolent, was nauseous and tried to vomit, but nothing came out. She also noticed dark bloody stools. Patient is scheduled for consultation with transplant specialist on February 13, 2024. She was admitted to the hospital multiple times due to GI bleeding. Since presentation to the ED patient became difficult to arouse and very somnolent. Blood pressure was in 90/60 range. Labs showed hemoglobin 10.8, platelets 50, PT 17.9, INR 1.7, BUN 20, creatinine 1.3, EGFR 49, glucose 125, T. bili of 4.7, ALP 148, ammonia 254, BNP 218, albumin 2.4. Chest x-ray negative for pneumonia. ICU team was consulted. In the ED patient is lethargic, GCS 8, blood pressure 90/56, heart rate 49, afebrile, saturating well on room air. Patient was upgraded to ICU for continuation of care and close monitoring. cc:: cc: Mateo Glover DO Review of Systems Review of Systems ROS Unobtainable: unobtainable due to mental status Exam Vital Signs Temp Pulse Resp BP Pulse Ox O2 Del Method 97.6 F 61 17 83/47 L 98 Room Air 02/06/24 17:26 02/06/24 17:39 02/06/24 17:26 02/06/24 17:39 02/06/24 17:26 02/06/24 17:26 Narrative Exam Gen: Well-developed and well-nourished female. HEENT: NCAT, PERRLA, EOMI, MMM, mild conjunctival icterus. CVS: normal S1 and S2. RRR. No M/R/G. Resp: CTA B/L. No rhonchi, rales, crackles or wheezing. Abd: soft, mildly tender, distended. BS+ in all 4 quadrants. MSK: Good ROM in BUE & BLE. Excoriations over BLE. 3+ pitting edema BLE. Neuro: limited exam due to mental status. GCS 8. Withdraws from pain, opens eyes on painful stimuli Results Labs 02/10/24 04:29 02/10/24 04:29 Labs: Short CBC 02/06/24 Range/Units 12:54 WBC 5.5 D (3.6-11.0) Thou/mm3 Hgb 10.8 L (12.0-16.0) g/dL Hct 32.5 L (36.0-46.0) % Plt Count 50 L D (140-440) Thou/mm3 BMP 02/06/24 12:54 Sodium 140 Potassium 4.2 Chloride 108 H Carbon Dioxide 25.5 BUN 20 Creatinine 1.3 D Glucose 125 H Calcium 8.3 Cardiac Enzymes 02/06/24 Range/Units 12:54 Troponin I < 0.002 (0.0-0.045) ng/mL Liver Function 02/06/24 Range/Units 12:54 Total Bilirubin 4.7 H (0.3-1.2) mg/dL AST 34 (0-34) U/L ALT 23 (10-49) U/L Alkaline Phosphatase 146 H (46-116) U/L Albumin 2.4 L (3.5-5.0) gm/dL Quality Measures Quality Measures none (due suspicion for GI bleed) Medications Home Medications and Allergies Home Medications ?Medication ?Instructions ?Recorded ?Confirmed ?Type tramadol 50 mg tablet 50 mg PO Q4HR PRN Pain 10/20/23 02/06/24 History midodrine 10 mg tablet 10 mg PO TID 01/12/24 02/06/24 History rifaximin 550 mg tablet (Xifaxan) 550 mg PO BID 01/12/24 02/06/24 History ferrous sulfate 325 mg (65 mg 325 mg PO DAILY 01/22/24 02/06/24 History iron) tablet ergocalciferol (vitamin D2) 1,250 1,250 mcg PO QWEEK 02/06/24 02/06/24 History mcg (50,000 unit) capsule (Vitamin D2) hydrocodone 5 mg-acetaminophen 325 1 tab PO TID PRN Mouth Pain 02/06/24 02/06/24 History mg tablet hydrocortisone acetate 25 mg 25 mg [place] QDAY 02/06/24 02/06/24 History rectal suppository (Anucort-HC) lidocaine HCl 2 % mucosal solution 5 ml PO 6 TIMES DAILY PRN Pain 02/06/24 02/06/24 History (Lidocaine Viscous) methocarbamol 750 mg tablet 750 mg PO BID 02/06/24 02/06/24 History mupirocin 2 % topical ointment 1 applic topical BID PRN Mouth Pain 02/06/24 02/06/24 History Allergies Allergy/AdvReac Type Severity Reaction Status Date / Time latex Allergy Severe Hives Verified 02/06/24 12:24 Visit Medications Dextrose (Dextrose 50%-Water Inj 50 Ml Syringe) 25 ml IV Q15MIN PRN PRN Reason: BG 50-70 responsive npo pt Stop: 03/07/24 15:13 Dextrose (Dextrose 50%-Water Inj 50 Ml Syringe) 50 ml IV Q15MIN PRN PRN Reason: BG <50 OR BG <70 & pt unresponsive Stop: 03/07/24 15:13 Glucagon (Glucagon Inj 1 Mg Vial) 1 mg IM Q15MIN PRN PRN Reason: BG <70, and no IV access Ceftriaxone Sodium/Dextrose (Rocephin/D5w 1gm Iv Premix) 50 mls @ 100 mls/hr IV QDAY CELINA Stop: 02/13/24 15:31 Last Admin: 02/06/24 17:47 Dose: 100 mls/hr Albumin Human (Albuminar-25 Ivpb) 25 gm in 100 mls @ 100 mls/hr IV QDAY ONE Stop: 02/06/24 18:30 Octreotide Acetate 1,000 mcg/ (Sodium Chloride) 102 mls @ 5.1 mls/hr IV .Q20H CELINA; Protocol Stop: 02/11/24 17:32 Octreotide Acetate 1,000 mcg/ (Sodium Chloride) 102 mls @ 5.1 mls/hr IV .Q20H CELINA; Protocol Stop: 02/07/24 13:44 Insulin Human Lispro (Insulin Lispro (Admelog) 1 Unit/0.01 Ml Unit) 0 unit SC Q6HR CELINA; Protocol Stop: 03/07/24 17:59 Lactulose (Lactulose Syrup 20 Gm/30 Ml Udc) 20 gm NG TID CELINA; Protocol Stop: 03/07/24 21:59 Midodrine (Midodrine 5 Mg Tablet) 10 mg NG BID CELINA Stop: 03/07/24 15:14 Last Admin: 02/06/24 17:39 Dose: 10 mg Pantoprazole Sodium (Pantoprazole Inj 40 Mg Vial) 40 mg IVP Q12HR CELINA Stop: 03/07/24 20:59 Rifaximin (Rifaximin 550 Mg Tablet) 550 mg NG BID CELINA Stop: 02/13/24 20:59 Discontinued Medications Lactated Ringer's (Lactated Ringers) 250 mls @ 999 mls/hr IV .Q16M ONE Stop: 02/06/24 15:43 Last Admin: 02/06/24 17:27 Dose: Not Given Lactated Ringer's (Lactated Ringers) 250 mls @ 999 mls/hr IV .Q16M ONE Stop: 02/06/24 16:15 Last Infusion: 02/06/24 17:25 Dose: Infused Lactulose (Lactulose Syrup 20 Gm/30 Ml Udc) 20 gm PO X1 STA; Protocol Stop: 02/06/24 14:17 Last Admin: 02/06/24 17:47 Dose: 20 gm Midodrine (Midodrine 5 Mg Tablet) 5 mg PO BID CELINA Stop: 03/07/24 14:59 Last Admin: 02/06/24 17:28 Dose: Not Given Midodrine (Midodrine 5 Mg Tablet) 10 mg PO BID CELINA Stop: 03/07/24 20:59 Octreotide Acetate (Octreotide Acet Inj 50 Mcg/Ml Vial) 50 mcg IV X1 ONE Stop: 02/06/24 17:31 Assessment & Plan Plan Patient is a 53 years old female with past medical history of type 2 diabetes, alcoholic cirrhosis, and drug use was brought to the ED due to altered mental status. According to the mother, she woke up today somnolent, was nauseous and tried to vomit, but nothing came out. She also noticed dark bloody stools. Patient is scheduled for consultation with transplant specialist on February 13, 2024. She was admitted to the hospital multiple times due to GI bleeding. Since presentation to the ED patient became difficult to arouse and very somnolent. Blood pressure was in 90/60 range. Labs showed hemoglobin 10.8, platelets 50, PT 17.9, INR 1.7, BUN 20, creatinine 1.3, EGFR 49, glucose 125, T. bili of 4.7, ALP 148, ammonia 254, BNP 218, albumin 2.4. Chest x-ray negative for pneumonia. ICU team was consulted. In the ED patient is lethargic, GCS 8, blood pressure 90/56, heart rate 49, afebrile, saturating well on room air. Patient was upgraded to ICU for continuation of care and close monitoring. [employer]: #Hepatic encephalopathy. On admission GCS 8, ammonia 254. Plan: - started on rifaximine 550 mg BID. - started on lactulose 30 g QID. - monitor mental status. - aspiration precaution. - NPO. CVS: #Hypotension. Blood pressure in the ED was in 90/60 range. Likely due to cirrhosis. Patient was given 2L of LR in the ED. Plan: - started on midodrine 10 mg TID. PULM: No active problem. GI: #Alcoholic cirrhosis. #Suspected GI bleeding. Patient is not using alcohol and is pending liver transplant consult. MELD-Na score 21 - 7-10% estimated 90 days mortality. Child-P[place] score 13, Child class C. Maddrey's discrimination score 35.1 - poor prognosis. On admission LFTs WNL, T.Bili 4.7, ALP 146, ammonia 254, albumin 2.4. Given 25 g of albumin. In the ED started on octreotide drip. Hgb is stable. FOBT stable. Plan: - continue octreotide drip. - started on protonix 40 mg BID. - spironolactone 25 mg QD. - albumin 25 g x1. ENDO: #Hx of type 2 diabetes. On admission glucose 125, A1C 4.6 (01/31/24). Plan: - sliding scale insulin. - hypoglycemia protocol in place. HEME: #Chronic anemia. #Thrombocytopenia. #Coagulopathy. On admission Hgb 10.8 PLT 50, PT 17.9, INR 1.7, consistent with prior readings. Plan: - monitor with daily CBC. - transfuse if Hgb <7. RENAL: #LILY. Creatinine 1.3, BUN 20. Baseline 0.8-1. Will hold spironolactone due to risk of hepatorenal syndrome. Plan: - monitor with daily BMP. - avoid nephrotoxic agents. - renally dose medications. ID: #[id number]. Started on ceftriaxone IV for SBP prophylaxis. MSK: No active problem. SKIN: No active problem. FEN: NPO. DVT prophylaxis: SCDs. GI prophylaxis: Protonix. Lines: peripheral 20g x2. Dispo: ICU. CODE STATUS: full code. Plan of care discussed with attending Dr. Hensley. Geoff Moreno MD, PGY 2. Disclaimer: This note was dictated by speech recognition. Minor errors in die caster may be present due to voice recognition software. Attending Provider Attestation/Addendum Patient not seen on this date of service. I was notified of admission by above resident, Geoff Moreno MD. I agree with plan for admission to the intensive care unit for close monitoring in the setting of hepatic encephalopathy. Anterolateral access was achieved with plan for lactulose overnight. Will exclude presence of GI bleed and started on octreotide for known history of variceal disease and PPI for potential alternate etiology of upper GI bleed as potential source for her large volume of ammonia. Empiric ceftriaxone was used for SBP prophylaxis. I will follow-up with the patient in the morning. I remain available overnight for any questions for they arise.
[2024-02-06] MEDS: OCTREOTIDE ACET INJ 50 mCg/ML VIAL IV (18:31)
[2024-02-06] MEDS: OCTREOTIDE ACET INJ 1,000 MCG in SODIUM CHLORIDE 0.9% 100 ML 5.1 MCG IV (18:37)
[2024-02-06] MEDS: ALBUMIN HUMAN 25% IVPB 25 GM/100 ML BTL IV (18:58)
--- NOTE | 2024-02-06 20:39 | PD.IMCONS ---
HPI Data of Consult Requesting Physician: Mateo Glover DO Primary Care Provider: LETI Catherine Consult Narrative Reason for consult: Altered mental status possibly hematemesis via NGT History of present illness: No history obtainable from the patient Patient evaluated in room 6 in the emergency room Spoke with the ER physician and the attending RN Patient was brought in by ambulance because of altered mental status There was some bleeding at the base of the canister with the NGT placement and after that it is all bilious drainage cc:: cc: Mateo Glover DO Review of Systems Review of Systems ROS Unobtainable: unobtainable due to medical condition Past Medical History Surgical History OTHER SURGICAL HX: Alcohol induced chronic liver disease GI bleeding in the past requiring band ligation of the esophageal varices Lower GI bleed requiring band ligation of the internal hemorrhoids Meds Home Medications and Allergies Home Medications ?Medication ?Instructions ?Recorded ?Confirmed ?Type tramadol 50 mg tablet 50 mg PO Q4HR PRN Pain 10/20/23 02/06/24 History midodrine 10 mg tablet 10 mg PO TID 01/12/24 02/06/24 History rifaximin 550 mg tablet (Xifaxan) 550 mg PO BID 01/12/24 02/06/24 History ferrous sulfate 325 mg (65 mg 325 mg PO DAILY 01/22/24 02/06/24 History iron) tablet furosemide 20 mg tablet 40 mg PO QAM 01/22/24 02/06/24 History cefuroxime axetil 500 mg tablet 500 mg PO BID 02/06/24 02/06/24 History ergocalciferol (vitamin D2) 1,250 1,250 mcg PO QWEEK 02/06/24 02/06/24 History mcg (50,000 unit) capsule (Vitamin D2) hydrocodone 5 mg-acetaminophen 325 1 tab PO TID PRN Mouth Pain 02/06/24 02/06/24 History mg tablet hydrocortisone acetate 25 mg 25 mg [place] QDAY 02/06/24 02/06/24 History rectal suppository (Anucort-HC) lidocaine HCl 2 % mucosal solution 5 ml PO 6 TIMES DAILY PRN Pain 02/06/24 02/06/24 History (Lidocaine Viscous) methocarbamol 750 mg tablet 750 mg PO BID 02/06/24 02/06/24 History mupirocin 2 % topical ointment 1 applic topical BID PRN Mouth Pain 02/06/24 02/06/24 History spironolactone 50 mg tablet 25 mg PO 4XD 02/06/24 02/06/24 History Allergies Allergy/AdvReac Type Severity Reaction Status Date / Time latex Allergy Severe Hives Verified 02/06/24 12:24 Exam Vital Signs Temp Pulse Resp BP Pulse Ox O2 Del Method 97.6 F 53 L 18 105/64 98 Room Air 02/06/24 18:38 02/06/24 20:16 02/06/24 20:16 02/06/24 20:16 02/06/24 20:16 02/06/24 18:51 Constitutional Comments: Patient arousable to only painful stimuli Routine Respiratory Exam Comments: Normal to auscultation Routine Abdominal Exam Comments: Soft nontender Results Labs 02/07/24 05:48 02/07/24 05:48 Labs: Short CBC 02/06/24 Range/Units 12:54 WBC 5.5 D (3.6-11.0) Thou/mm3 Hgb 10.8 L (12.0-16.0) g/dL Hct 32.5 L (36.0-46.0) % Plt Count 50 L D (140-440) Thou/mm3 BMP 02/06/24 12:54 Sodium 140 Potassium 4.2 Chloride 108 H Carbon Dioxide 25.5 BUN 20 Creatinine 1.3 D Glucose 125 H Calcium 8.3 Cardiac Enzymes 02/06/24 Range/Units 12:54 Troponin I < 0.002 (0.0-0.045) ng/mL Liver Function 02/06/24 Range/Units 12:54 Total Bilirubin 4.7 H (0.3-1.2) mg/dL AST 34 (0-34) U/L ALT 23 (10-49) U/L Alkaline Phosphatase 146 H (46-116) U/L Albumin 2.4 L (3.5-5.0) gm/dL Assessment and Plan Additional Assessment & Plan Additional Plan: # Acute hepatic encephalopathy # ALOC secondary to above # Patient really does not have hematemesis some blood in the suction canister is due to the placement of an NGT Since then it has all been bilious drainage No plan to do endoscopy Suggestions Aggressive management of the encephalopathy with Xifaxan and lactulose via the NGT Serial CBC Will follow the patient No plan on any invasive GI workup at the moment Thank you very much for the opportunity to participate in the care of this patient
[2024-02-06] MEDS: SPIRONOLACTONE 25 MG TABLET PO ×2 (21:00→22:59)
[2024-02-06] MEDS: PANTOPRAZOLE INJ 40 MG VIAL IVP (21:56)
[2024-02-06] MEDS: LACTULOSE SYRUP 20 GM/30 ML UDC 30 GM PO (22:08)
[2024-02-06] MEDS: rifaximin 550 MG TABLET NG (22:59)
--- NOTE | 2024-02-06 23:29 | PC.NURSE ---
Pt in no acute distress. VS are stable.Pts mother at bedside. Additional IV placed to L chest. Liz cath placed. Comfort mesures offered to pts mother.
[2024-02-06 23:51] LABS: Collection Type, Urine Clean Catch; Squamous Epithelial Cell,Urine 0 /hpf (0-5)
[2024-02-06 23:58] LABS: Bilirubin,Urine Negative (Negative); Blood,Urine 2+ (Negative); Clarity,Urine Clear (Clear/Hazy); Color,Urine Lt-Yellow (Lt Yel-Yel); Glucose, Urine Negative (Negative); Hyaline Casts,Urine < 1 /hpf (0-1); Ketones,Urine Negative (Negative); Leukocyte Esterase,Urine Negative (Negative); Nitrite,Urine Negative (Negative); Protein,Urine Negative (Neg - Trace); RBC,Urine 77 /hpf (0-3); Specific Gravity,Urine 1.011 (1.001-1.035); Urobilinogen,Urine Negative mg/dL (0.0-1.0); WBC,Urine 9 /hpf (0-5)
--- NOTE | 2024-02-06 23:59 | PC.NURSE ---
Stomach auscultated to ensure NG placement prior to using for meds.
[2024-02-07] VITALS (31 sets, daily range): BP systolic 92–129; BP diastolic 50–72; PULSE 51–64; RESP 9–100; TEMP 36.4–37.1; O2SAT 94–99; BMI 33.4
--- NOTE | 2024-02-07 00:47 | PC.NURSE ---
Report given to Adriana CERON. Pt taken to ICU with ekg monitor tech.
[2024-02-07 01:31] LABS: Hematocrit 33.2 % (36.0-46.0); Hemoglobin 11.1 g/dL (12.0-16.0)
[2024-02-07 01:39] LABS: Amphetamine/Methamp Scrn,U Negative (Negative); Barbiturate Screen,Urine Negative (Negative); Benzodiazepines Screen,Urine Negative (Negative); Benzoylecgonine Screen, Ur Negative (Negative); Fentanyl Screen,Urine Negative (Negative); Opiate Screen,Urine Negative (Negative); THC Screen,Urine Negative (Negative)
[2024-02-07] MEDS: ALBUMIN HUMAN 25% IVPB 25 GM/100 ML BTL IV (04:27)
[2024-02-07 06:14] LABS: Basophils % (Auto) 1 % (0-2.5); Eosinophils # (Auto) 0.1 Thou/mm3 (0.0-0.5); Eosinophils % (Auto) 3 % (0-10); Hematocrit 30.7 % (36.0-46.0); Hemoglobin 10.3 g/dL (12.0-16.0); Immature Granulocytes % (Auto) 0 % (0-0); Immature Granulocytes Auto 0.01 Thou/mm3 (0.00-0.00); Lymphocytes # (Auto) 1.1 Thou/mm3 (1.0-4.8); Lymphocytes % (Auto) 33 % (10-50); Mean Corpuscular HGB Conc 33.6 g/dl (31.0-37.0); Mean Corpuscular Hemoglobin 33.1 pg (25.0-35.0); Mean Corpuscular Volume 99 fL (80-100); Monocytes # (Auto) 0.2 Thou/mm3 (0.0-0.8); Monocytes % (Auto) 7 % (0-12); Neutrophils # (Auto) 1.8 Thou/mm3 (1.8-7.7); Neutrophils % (Auto) 56 % (37-80); Nucleated Red Blood Cell % 0 /100 WBC (0); RDW Standard Deviation 76.8 fL (36.4-46.3); Red Blood Count 3.11 Miln/mm3 (4.00-5.20); White Blood Count 3.2 Thou/mm3 (3.6-11.0)
[2024-02-07] MEDS: MIDODRINE 5 MG TABLET 10 MG NG (06:14)
[2024-02-07 06:16] LABS: Platelet Count 35 Thou/mm3 (140-440)
[2024-02-07] MEDS: LACTULOSE SYRUP 20 GM/30 ML UDC 30 GM PO ×2 (06:19→12:00)
[2024-02-07 06:51] LABS: Alanine Aminotransferase 17 U/L (10-49); Albumin, Serum 2.5 gm/dL (3.5-5.0); Albumin/Globulin Ratio 0.8 (1.2-2.2); Alkaline Phosphatase 101 U/L (46-116); Anion Gap 8 (7-16); Aspartate Amino Transferase 38 U/L (0-34); BUN/Creatinine Ratio 18 Ratio (12-20); Bilirubin,Total 7.1 mg/dL (0.3-1.2); Blood Urea Nitrogen 18 mg/dL (9-23); Calcium 8.6 mg/dL (8.3-10.6); Calcium (Corrected) 9.8 mg/dL (8.5-10.1); Carbon Dioxide 27.1 mMol/L (20.0-31.0); Chloride 108 mMol/L (98-107); Estimated Creatinine Clearance 58.2 mL/min (>60); Globulin 3.3 gm/dL (2.3-3.5); Glucose 105 mg/dL (74-106); Magnesium 1.9 mg/dL (1.6-2.6); Osmolality,Calculated 286 (275-295); Phosphorous 4.5 mg/dL (2.4-5.1); Potassium 4.3 mMol/L (3.4-5.1); Sodium 143 mMol/L (136-145); Total Protein 5.8 gm/dL (5.7-8.2); eGFR > 60 See Note
[2024-02-07 08:00] LABS: Slide Review Platelets confirmed
[2024-02-07] MEDS: PANTOPRAZOLE INJ 40 MG VIAL IVP ×2 (09:31→22:12)
[2024-02-07] MEDS: rifaximin 550 MG TABLET NG ×2 (09:34→22:14)
--- NOTE | 2024-02-07 09:56 | PC.SS ---
This is 53-year-old, , single female who presented to the ED due to suffering from nausea, vomiting and weakness. Patient appeared alert and oriented to self, place and situation. Patient reported that she resides at home with her mother, children and partner, Kg. Patient needs assistance with all ADLs. She uses a wheelchair, rollator, BSC and shower chair. Patient's PCP is Stacy Graff. Patient assigned her mother, Gemma Knight as her medical decision maker. Patient is still pending to be downgraded from ICU. Sorting And Folding Supervisor will follow up for any discharge needs: home with HH vs. SNF. Discharge plan: pending ICU downgrade, but more than likely would be home with hh vs. SNF. Next of kin: Gemma Knight, mother.
--- NOTE | 2024-02-07 11:48 | PC.NURSE ---
per Dr. Lucio, NG suctioned and turned off, patient okay to have a couple ice chips
--- NOTE | 2024-02-07 12:29 | PD.RESPRO ---
Documentation for date of: 02/07/24 Subjective Subjective Interval history: Patient was seen and examined in ICU. No overnight events. Patient's mental status is improving, she is more awake and is communicating however remains confused. Creatinine downtrended to 1.0. Blood pressure remained stable, last reading 108/50, will continue midodrine. No bowel movements at this moment. Due to improvement in patient's condition she will be downgraded to medical floor for continuation of care. Exam Vital Signs Temp Pulse Resp BP Pulse Ox O2 Del Method 98.4 F 59 L 16 115/63 98 Room Air 02/07/24 12:00 02/07/24 12:00 02/07/24 12:00 02/07/24 12:00 02/07/24 12:00 02/07/24 12:00 Narrative Exam Gen: Well-developed and well-nourished female. HEENT: NCAT, PERRLA, EOMI, MMM, mild conjunctival icterus. NG tube in place. CVS: normal S1 and S2. RRR. No M/R/G. Resp: CTA B/L. No rhonchi, rales, crackles or wheezing. Abd: soft, mildly tender, distended. BS+ in all 4 quadrants. MSK: Good ROM in BUE & BLE. Excoriations over BLE. 3+ pitting edema BLE. Neuro: limited exam due to mental status. GCS 12. Localizes pain, opens eyes spontaneously, can follow simple commands. Objective Labs 02/10/24 04:29 02/10/24 04:29 Labs: Laboratory Results - last 24 hr 02/06/24 02/06/24 02/06/24 12:54 19:08 23:40 WBC 5.5 D RBC 3.24 L Hgb 10.8 L Hct 32.5 L MCV 100 MCH 33.3 MCHC 33.2 RDW Std Deviation 80.4 H Plt Count 50 L D Neut % (Auto) 55 Lymph % (Auto) 30 [place] % (Auto) 9 Eos % (Auto) 5 Baso % (Auto) 1 Neut # (Auto) 3.0 Lymph # (Auto) 1.6 [place] # (Auto) 0.5 Eos # (Auto) 0.3 Baso # (Auto) 0.1 Immature Gran # (Auto) 0.02 H Absolute Nucleated RBC 0.00 Immature Gran % 0 Nucleated RBC % 0 PT 17.9 H INR 1.7 H APTT 35.6 Sodium 140 Potassium 4.2 Chloride 108 H Carbon Dioxide 25.5 Anion Gap 7 BUN 20 Creatinine 1.3 D Estim Creat Clear Calc 43.9 L eGFR 49 L BUN/Creatinine Ratio 15 Glucose 125 H Calculated Osmolality 283 Calcium 8.3 Corrected Calcium 9.6 Phosphorus Magnesium 2.0 Total Bilirubin 4.7 H AST 34 ALT 23 Alkaline Phosphatase 146 H Ammonia 254 H* Troponin I < 0.002 B-Natriuretic Peptide 218 H Total Protein 6.3 Albumin 2.4 L Globulin 3.9 H Albumin/Globulin Ratio 0.6 L HCG, Qual Negative Ur Collection Type Clean Catch Urine Color Lt-Yellow Urine Clarity Clear Urine pH 6.0 Ur Specific [place] 1.011 Urine Protein Negative Urine Glucose (UA) Negative Urine Ketones Negative Urine Blood 2+ A Urine Nitrite Negative Urine Bilirubin Negative Urine Urobilinogen (Auto) Negative Ur Leukocyte Esterase Negative Urine RBC 77 H Urine WBC 9 H Ur Squamous Epith Cells 0 Urine Bacteria None Hyaline Casts < 1 Urine Opiates Screen Negative Urine Fentanyl Screen Negative Ur Barbiturates Screen Negative U Amphetamin/Meth Scrn Negative U Benzodiazepines Scrn Negative U Cocaine Metab Screen Negative U Marijuana (THC) Screen Negative Misc Test Result Platelets confirmed Blood Type O Positive Antibody Screen NEGATIVE Blood Bank Wristband ID Yes 02/07/24 02/07/24 01:01 05:48 WBC 3.2 L D RBC 3.11 L Hgb 11.1 L 10.3 L Hct 33.2 L 30.7 L MCV 99 MCH 33.1 MCHC 33.6 RDW Std Deviation 76.8 H Plt Count 35 L D Neut % (Auto) 56 Lymph % (Auto) 33 [place] % (Auto) 7 Eos % (Auto) 3 Baso % (Auto) 1 Neut # (Auto) 1.8 Lymph # (Auto) 1.1 [place] # (Auto) 0.2 Eos # (Auto) 0.1 Baso # (Auto) 0.0 Immature Gran # (Auto) 0.01 H Absolute Nucleated RBC 0.00 Immature Gran % 0 Nucleated RBC % 0 PT INR APTT Sodium 143 Potassium 4.3 Chloride 108 H Carbon Dioxide 27.1 Anion Gap 8 BUN 18 Creatinine 1.0 Estim Creat Clear Calc 58.2 L eGFR > 60 BUN/Creatinine Ratio 18 Glucose 105 Calculated Osmolality 286 Calcium 8.6 Corrected Calcium 9.8 Phosphorus 4.5 Magnesium 1.9 Total Bilirubin 7.1 H D AST 38 H ALT 17 Alkaline Phosphatase 101 D Ammonia Troponin I B-Natriuretic Peptide Total Protein 5.8 Albumin 2.5 L Globulin 3.3 Albumin/Globulin Ratio 0.8 L HCG, Qual Ur Collection Type Urine Color Urine Clarity Urine pH Ur Specific [place] Urine Protein Urine Glucose (UA) Urine Ketones Urine Blood Urine Nitrite Urine Bilirubin Urine Urobilinogen (Auto) Ur Leukocyte Esterase Urine RBC Urine WBC Ur Squamous Epith Cells Urine Bacteria Hyaline Casts Urine Opiates Screen Urine Fentanyl Screen Ur Barbiturates Screen U Amphetamin/Meth Scrn U Benzodiazepines Scrn U Cocaine Metab Screen U Marijuana (THC) Screen Misc Test Result Platelets confirmed Blood Type Antibody Screen Blood Bank Wristband ID Quality Measures Quality Measures none (due suspicion for GI bleed) Assessment & Plan Assessment Current Active Medications: Generic Name Dose Route Start Last Admin Trade Name Freq PRN Reason Stop Dose Admin Dextrose 25 ml 02/06/24 15:14 Dextrose 50%-Water Inj 50 Ml Syringe IV 03/07/24 15:13 Q15MIN PRN BG 50-70 responsive npo pt Dextrose 50 ml 02/06/24 15:14 Dextrose 50%-Water Inj 50 Ml Syringe IV 03/07/24 15:13 Q15MIN PRN BG <50 OR BG <70 & pt unresponsive Glucagon 1 mg 02/06/24 15:14 Glucagon Inj 1 Mg Vial IM Q15MIN PRN BG <70, and no IV access Octreotide Acetate 1,000 mcg/ 102 mls @ 5.1 mls/hr 02/06/24 17:45 02/06/24 18:37 Sodium Chloride IV 02/07/24 13:44 50 mcg/hr .Q20H CELINA 5.1 mls/hr Administration Protocol 50 MCG/HR Ceftriaxone Sodium/Dextrose 50 mls @ 100 mls/hr 02/07/24 15:00 Rocephin/D5w 1gm Iv Premix IV 02/14/24 14:59 QDAY@1500 CELINA Albumin Human 25 gm in 100 mls @ 100 mls/hr 02/08/24 07:45 Albuminar-25 Ivpb IV 02/11/24 07:44 TID CELINA Octreotide Acetate 1,000 mcg/ 102 mls @ 5.1 mls/hr 02/07/24 12:00 Sodium Chloride IV 02/10/24 11:59 .Q20H CELINA Protocol 50 MCG/HR Insulin Human Lispro 0 unit 02/06/24 18:00 02/07/24 11:46 Insulin Lispro (Admelog) 1 Unit/0.01 Ml Unit SC 03/07/24 17:59 Not Given Q6HR CELINA Protocol Lactulose 30 gm 02/06/24 21:00 02/07/24 12:00 Lactulose Syrup 20 Gm/30 Ml Udc PO 03/07/24 20:59 30 gm QID CELINA Administration Protocol Midodrine 10 mg 02/06/24 22:00 02/07/24 06:14 Midodrine 5 Mg Tablet NG 03/07/24 21:59 10 mg TID CELINA Administration Pantoprazole Sodium 40 mg 02/06/24 21:00 02/07/24 09:31 Pantoprazole Inj 40 Mg Vial IVP 03/07/24 20:59 40 mg Q12HR CELINA Administration Rifaximin 550 mg 02/06/24 21:00 02/07/24 09:34 Rifaximin 550 Mg Tablet NG 02/13/24 20:59 550 mg BID CELINA Administration Plan Patient is a 53 years old female with past medical history of type 2 diabetes, alcoholic cirrhosis, and drug use was brought to the ED due to altered mental status. According to the mother, she woke up today somnolent, was nauseous and tried to vomit, but nothing came out. She also noticed dark bloody stools. Patient is scheduled for consultation with transplant specialist on February 13, 2024. She was admitted to the hospital multiple times due to GI bleeding. Since presentation to the ED patient became difficult to arouse and very somnolent. Blood pressure was in 90/60 range. Labs showed hemoglobin 10.8, platelets 50, PT 17.9, INR 1.7, BUN 20, creatinine 1.3, EGFR 49, glucose 125, T. bili of 4.7, ALP 148, ammonia 254, BNP 218, albumin 2.4. Chest x-ray negative for pneumonia. ICU team was consulted. In the ED patient is lethargic, GCS 8, blood pressure 90/56, heart rate 49, afebrile, saturating well on room air. Patient was upgraded to ICU for continuation of care and close monitoring. 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 On admission GCS 8, ammonia 254. Plan: - continue on rifaximine 550 mg BID. - continue on lactulose 30 g QID. - monitor mental status. - aspiration precaution. - NPO. CVS: #Hypotension. Blood pressure in the ED was in 90/60 range. Likely due to cirrhosis. Patient was given 2L of LR in the ED. Plan: - continue on midodrine 10 mg TID. PULM: No active problem. GI: #Alcoholic cirrhosis. #Suspected GI bleeding. Patient is not using alcohol and is pending liver transplant consult. MELD-Na score 21 - 7-10% estimated 90 days mortality. Child-[place] score 13, Child class C. Maddrey's discrimination score 35.1 - poor prognosis. On admission LFTs WNL, T.Bili 4.7, ALP 146, ammonia 254, albumin 2.4. Given 25 g of albumin. In the ED started on octreotide drip. Hgb is stable. FOBT stable. Plan: - continue octreotide drip. - continue on protonix 40 mg BID. - GI is on board. ENDO: #Hx of type 2 diabetes. On admission glucose 125, A1C 4.6 (01/31/24). Plan: - sliding scale insulin. - hypoglycemia protocol in place. HEME: #Chronic anemia. #Thrombocytopenia. #Coagulopathy. On admission Hgb 10.8 PLT 50, PT 17.9, INR 1.7, consistent with prior readings. Plan: - monitor with daily CBC. - transfuse if Hgb <7. RENAL: #LILY, improving. Creatinine 1.3, BUN 20. Baseline 0.8-1. Will hold spironolactone due to risk of hepatorenal syndrome. Plan: - monitor with daily BMP. - avoid nephrotoxic agents. - renally dose medications. - continue octreotide drip. ID: #[id number]. - continue on ceftriaxone IV for SBP prophylaxis. MSK: No active problem. SKIN: No active problem. FEN: NPO. DVT prophylaxis: SCDs. GI prophylaxis: Protonix. Lines: peripheral 20g x2. Dispo: ICU. CODE STATUS: full code. Plan of care discussed with attending Dr. Hensley. Geoff Mroeno MD, PGY 2. Disclaimer: This note was dictated by speech recognition. Minor errors in spout liner may be present due to voice recognition software. Attending Provider Attestation/Addendum Patient seen and examined with above resident, Geoff Moreno MD. I agree with the findings, assessment, and plan of care as documented except for any differences below. Patient with rapid improvement after initiation of lactulose via NG tube. This is subsequently discontinued as the patient mentation returned back to baseline and rifaximin will also be continued orally. Patient without evidence of ongoing GI bleed though octreotide remains in place for prevention of LILY/HRS. Protonix also available with GIs input pending for change in course of therapy. Octreotide can be continued again for prevention of HRS though seems to be more LILY from hypovolemia which has now been adequately addressed. Patient resumed on home midodrine TID. No need for additional transfusion. Will hold diuretics for today and reassess tomorrow. Patient on appropriate ceftriaxone for SBP prophylaxis as she does have history of variceal bleed and this may have been the likely source of her acute decompensation versus dietary indiscretion. Patient remains stable for transfer to medicine iqbal for ongoing management prior to discharge. Total critical care time: I personally spent 35 minutes for review of physiologic parameters, directing plan of care throughout the day, coordination of care with other subspecialties, and counseling patient at bedside. This is exclusive of time spent teaching housestaff or performing any separate billable procedures. Patient continues to require critical care services for hepatic encephalopathy and acute renal failure in the setting of possible upper GI bleed. Patient remains at risk for further decompensation of her underlying end-stage liver disease with associated morbidity and mortality warranting ongoing monitoring and care only available in the intensive care unit.
[2024-02-07] MEDS: OCTREOTIDE ACET INJ 1,000 MCG in SODIUM CHLORIDE 0.9% 100 ML 5.1 MCG IV (13:21)
--- NOTE | 2024-02-07 14:09 | ESPR_ITS ---
Documentation for date of: 02/07/24 Subjective Subjective Interval history: Patient evaluated More awake and alert Hemoglobin hematocrit stable around 10.3 and 30.7 Exam Vital Signs Temp Pulse Resp BP Pulse Ox O2 Del Method 98.4 F 59 L 15 119/66 97 Room Air 02/07/24 12:00 02/07/24 13:00 02/07/24 13:00 02/07/24 13:00 02/07/24 13:00 02/07/24 12:00 Constitutional Comments: More alert and oriented since last night Routine Respiratory Exam Comments: Normal to auscultation Routine Abdominal Exam Comments: Soft nontender Objective Labs 02/07/24 05:48 02/07/24 05:48 Labs: Laboratory Results - last 24 hr 02/06/24 02/06/24 02/06/24 12:54 19:08 23:40 WBC RBC Hgb Hct MCV MCH MCHC RDW Std Deviation Plt Count 50 L D Neut % (Auto) Lymph % (Auto) [place] % (Auto) Eos % (Auto) Baso % (Auto) Neut # (Auto) Lymph # (Auto) [place] # (Auto) Eos # (Auto) Baso # (Auto) Immature Gran # (Auto) Absolute Nucleated RBC Immature Gran % Nucleated RBC % Sodium Potassium Chloride Carbon Dioxide Anion Gap BUN Creatinine Estim Creat Clear Calc eGFR BUN/Creatinine Ratio Glucose Calculated Osmolality Calcium Corrected Calcium Phosphorus Magnesium Total Bilirubin AST ALT Alkaline Phosphatase Total Protein Albumin Globulin Albumin/Globulin Ratio HCG, Qual Negative Ur Collection Type Clean Catch Urine Color Lt-Yellow Urine Clarity Clear Urine pH 6.0 Ur Specific [place] 1.011 Urine Protein Negative Urine Glucose (UA) Negative Urine Ketones Negative Urine Blood 2+ A Urine Nitrite Negative Urine Bilirubin Negative Urine Urobilinogen (Auto) Negative Ur Leukocyte Esterase Negative Urine RBC 77 H Urine WBC 9 H Ur Squamous Epith Cells 0 Urine Bacteria None Hyaline Casts < 1 Urine Opiates Screen Negative Urine Fentanyl Screen Negative Ur Barbiturates Screen Negative U Amphetamin/Meth Scrn Negative U Benzodiazepines Scrn Negative U Cocaine Metab Screen Negative U Marijuana (THC) Screen Negative Misc Test Result Platelets confirmed Blood Type O Positive Antibody Screen NEGATIVE Blood Bank Wristband ID Yes 02/07/24 02/07/24 01:01 05:48 WBC 3.2 L D RBC 3.11 L Hgb 11.1 L 10.3 L Hct 33.2 L 30.7 L MCV 99 MCH 33.1 MCHC 33.6 RDW Std Deviation 76.8 H Plt Count 35 L D Neut % (Auto) 56 Lymph % (Auto) 33 [place] % (Auto) 7 Eos % (Auto) 3 Baso % (Auto) 1 Neut # (Auto) 1.8 Lymph # (Auto) 1.1 [place] # (Auto) 0.2 Eos # (Auto) 0.1 Baso # (Auto) 0.0 Immature Gran # (Auto) 0.01 H Absolute Nucleated RBC 0.00 Immature Gran % 0 Nucleated RBC % 0 Sodium 143 Potassium 4.3 Chloride 108 H Carbon Dioxide 27.1 Anion Gap 8 BUN 18 Creatinine 1.0 Estim Creat Clear Calc 58.2 L eGFR > 60 BUN/Creatinine Ratio 18 Glucose 105 Calculated Osmolality 286 Calcium 8.6 Corrected Calcium 9.8 Phosphorus 4.5 Magnesium 1.9 Total Bilirubin 7.1 H D AST 38 H ALT 17 Alkaline Phosphatase 101 D Total Protein 5.8 Albumin 2.5 L Globulin 3.3 Albumin/Globulin Ratio 0.8 L HCG, Qual Ur Collection Type Urine Color Urine Clarity Urine pH Ur Specific [place] Urine Protein Urine Glucose (UA) Urine Ketones Urine Blood Urine Nitrite Urine Bilirubin Urine Urobilinogen (Auto) Ur Leukocyte Esterase Urine RBC Urine WBC Ur Squamous Epith Cells Urine Bacteria Hyaline Casts Urine Opiates Screen Urine Fentanyl Screen Ur Barbiturates Screen U Amphetamin/Meth Scrn U Benzodiazepines Scrn U Cocaine Metab Screen U Marijuana (THC) Screen Misc Test Result Platelets confirmed Blood Type Antibody Screen Blood Bank Wristband ID Impressions Impression: # Acute hepatic encephalopathy improving # No evidence of any active GI bleed no need for any invasive GI workup # Chronic liver disease secondary to alcohol patient has been abstinent for last 6 months Continue current management Assessment & Plan A&P Narrative # Acute hepatic encephalopathy # ALOC secondary to above # Patient really does not have hematemesis some blood in the suction canister is due to the placement of an NGT Since then it has all been bilious drainage No plan to do endoscopy Suggestions Aggressive management of the encephalopathy with Xifaxan and lactulose via the NGT Serial CBC Will follow the patient No plan on any invasive GI workup at the moment Thank you very much for the opportunity to participate in the care of this patient Time Spent With Patient Time: Total time spent is greater than 50% in coordination of care (as documented) at patient's floor/unit and/or counseling patient:
[2024-02-07] MEDS: oxyCODONE HCL 5 MG IR TAB NG (14:38)
--- NOTE | 2024-02-07 15:04 | PD.RESEVENT ---
Documentation for date of: 02/07/24 Event Note Event Note: The patient is a 53-year-old female with previous medical history of type 2 diabetes, alcoholic cirrhosis, and drug use with recent admission for who was brought to the ED due to altered mental status. According to the mother, she woke up today somnolent, was nauseous and tried to vomit, but nothing came out. She also noticed dark bloody stools and blood-tinged urine. Due to her altered mental status and MAP less than 65 she was admitted to the ICU. She was started on midodrine and lactulose, mental status improved, GCS 13, MAP is >65. She is set to be downgraded to the floors, Team A to assume care starting 02/08/24. Plan of care discussed with attending Dr. Alaniz and PGY-[address] Muniz. Nasreen Arellano MD, PGY 1.
[2024-02-07] MEDS: cefTRIAXone/D5w 1gm IV premix 50 ML IV (16:11)
--- NOTE | 2024-02-07 17:30 | XR_ITS ---
Examination: CT brain head without contrast. 2-D sagittal coronal reconstructions Date and time of exam:February 07, 2024 2114 hrs. Indications: Focal neurologic deficit onset 2 days ago CTDI: vol (mGy):51.8 DLP: (mGycm):1001 Technique: Multiple CT axial sections of the brain have been obtained, 5 mm slice thickness. Contrast has not been administered. 2-D sagittal, coronal reconstructions have been obtained Low dose protocols were performed. One or more of the following dose reduction techniques were used; automated exposure control, adjustment of the mA and/or KV according to patient size, use of iterative reconstruction technique. Findings: No significant ventricular enlargement. Intra-axial or extra-axial hemorrhage density is not seen. No mass effect or midline shift Basal cisterns are not remarkable. Fourth ventricle is midline. Cranial vault intact. Impression: Negative for acute hemorrhage, mass effect or midline shift As clinically warranted, consider brain MRI follow-up
[2024-02-07] MEDS: INSULIN LISPRO (AdmeLOG) 1 UNIT/0.01 ML UNIT SC (17:35)
--- NOTE | 2024-02-07 18:01 | PC.NURSE ---
at 1710 patient states, she has had some left sided cheek twitching, no twitching noted on assessment at this time, patients pupils PERRLA at 3, no facial droop noted, equal commodity loan clerk bilateral, Dr. Lucio notified, CT head ordered
--- NOTE | 2024-02-07 18:05 | PC.NURSE ---
report given to Amadeo CERON. patient transported to room 270 via bed on RA
--- NOTE | 2024-02-07 19:15 | PC.NURSE ---
void post urinary catheter removal
[2024-02-07] MEDS: LACTULOSE SYRUP 20 GM/30 ML UDC PO (22:14)
[2024-02-07] MEDS: MORPHINE SULF INJ 10 MG/ML VIAL IVP (22:38)
[2024-02-08] VITALS (9 sets, daily range): BP systolic 103–118; BP diastolic 58–69; PULSE 55–69; RESP 12–97; TEMP 36.3–36.5; O2SAT 97–99; BMI 33.3
[2024-02-08] MEDS: INSULIN LISPRO (AdmeLOG) 1 UNIT/0.01 ML UNIT SC ×3 (00:06→23:29)
[2024-02-08] MEDS: MORPHINE SULF INJ 10 MG/ML VIAL IVP (05:46)
[2024-02-08 06:15] LABS: Basophils % (Auto) 1 % (0-2.5); Eosinophils # (Auto) 0.2 Thou/mm3 (0.0-0.5); Eosinophils % (Auto) 4 % (0-10); Hematocrit 29.2 % (36.0-46.0); Hemoglobin 9.5 g/dL (12.0-16.0); Immature Granulocytes % (Auto) 0 % (0-0); Immature Granulocytes Auto 0.01 Thou/mm3 (0.00-0.00); Lymphocytes # (Auto) 1.6 Thou/mm3 (1.0-4.8); Lymphocytes % (Auto) 37 % (10-50); Mean Corpuscular HGB Conc 32.5 g/dl (31.0-37.0); Mean Corpuscular Hemoglobin 33.3 pg (25.0-35.0); Mean Corpuscular Volume 103 fL (80-100); Monocytes # (Auto) 0.4 Thou/mm3 (0.0-0.8); Monocytes % (Auto) 9 % (0-12); Neutrophils % (Auto) 49 % (37-80); Nucleated Red Blood Cell % 0 /100 WBC (0); RDW Standard Deviation 78.7 fL (36.4-46.3); Red Blood Count 2.85 Miln/mm3 (4.00-5.20); White Blood Count 4.2 Thou/mm3 (3.6-11.0)
[2024-02-08 06:17] LABS: Platelet Count 51 Thou/mm3 (140-440)
[2024-02-08 06:57] LABS: Alanine Aminotransferase 16 U/L (10-49); Albumin, Serum 2.6 gm/dL (3.5-5.0); Albumin/Globulin Ratio 0.8 (1.2-2.2); Alkaline Phosphatase 80 U/L (46-116); Anion Gap 6 (7-16); Aspartate Amino Transferase 28 U/L (0-34); BUN/Creatinine Ratio 14 Ratio (12-20); Bilirubin,Total 9.1 mg/dL (0.3-1.2); Blood Urea Nitrogen 11 mg/dL (9-23); Calcium 8.6 mg/dL (8.3-10.6); Calcium (Corrected) 9.7 mg/dL (8.5-10.1); Carbon Dioxide 27.1 mMol/L (20.0-31.0); Chloride 108 mMol/L (98-107); Creatinine (Component) 0.8 mg/dL (0.6-1.3); Estimated Creatinine Clearance 72.7 mL/min (>60); Globulin 3.3 gm/dL (2.3-3.5); Glucose 101 mg/dL (74-106); Magnesium 1.6 mg/dL (1.6-2.6); Osmolality,Calculated 280 (275-295); Phosphorous 3.5 mg/dL (2.4-5.1); Sodium 141 mMol/L (136-145); Total Protein 5.9 gm/dL (5.7-8.2); eGFR > 60 See Note
[2024-02-08] MEDS: PANTOPRAZOLE INJ 40 MG VIAL IVP ×2 (09:10→21:12)
[2024-02-08] MEDS: rifaximin 550 MG TABLET NG ×2 (09:10→21:11)
[2024-02-08] MEDS: ALBUMIN HUMAN 25% IVPB 25 GM/100 ML BTL IV ×3 (09:10→21:12)
[2024-02-08] MEDS: OCTREOTIDE ACET INJ 1,000 MCG in SODIUM CHLORIDE 0.9% 100 ML 5.1 MCG IV (09:11)
[2024-02-08] MEDS: HYDROcodone/APAP 5/325 TABLET 1 TAB PO ×2 (11:50→21:11)
--- NOTE | 2024-02-08 12:20 | PC.CM ---
I spoke to Maricruz DELANEY and I let her know patient was declined by all home health agencies from her previous visit. Patient was just in the hospital.
--- NOTE | 2024-02-08 13:14 | PD.IMPROG ---
Documentation for date of: 02/08/24 Subjective Subjective Interval history: Slight drop in hemoglobin hematocrit to 9.5 and 29.2 Patient medically clear and getting better with lactulose and Xifaxan metabolic Exam Vital Signs Temp Pulse Resp BP Pulse Ox O2 Del Method 97.6 F 62 15 105/69 97 Room Air 02/08/24 12:00 02/08/24 12:00 02/08/24 12:00 02/08/24 12:00 02/08/24 12:00 02/08/24 12:00 Constitutional Comments: Alert oriented Routine Respiratory Exam Comments: Normal to auscultation Objective Labs 02/08/24 05:22 02/08/24 05:22 Labs: Laboratory Results - last 24 hr 02/08/24 05:22 WBC 4.2 RBC 2.85 L Hgb 9.5 L Hct 29.2 L MCV 103 H MCH 33.3 MCHC 32.5 RDW Std Deviation 78.7 H Plt Count 51 L D Neut % (Auto) 49 Lymph % (Auto) 37 [place] % (Auto) 9 Eos % (Auto) 4 Baso % (Auto) 1 Neut # (Auto) 2.0 Lymph # (Auto) 1.6 [place] # (Auto) 0.4 Eos # (Auto) 0.2 Baso # (Auto) 0.0 Immature Gran # (Auto) 0.01 H Absolute Nucleated RBC 0.00 Immature Gran % 0 Nucleated RBC % 0 Sodium 141 Potassium 4.0 Chloride 108 H Carbon Dioxide 27.1 Anion Gap 6 L BUN 11 Creatinine 0.8 Estim Creat Clear Calc 72.7 eGFR > 60 BUN/Creatinine Ratio 14 Glucose 101 Calculated Osmolality 280 Calcium 8.6 Corrected Calcium 9.7 Phosphorus 3.5 Magnesium 1.6 Total Bilirubin 9.1 H D AST 28 ALT 16 Alkaline Phosphatase 80 D Total Protein 5.9 Albumin 2.6 L Globulin 3.3 Albumin/Globulin Ratio 0.8 L Misc Test Result Impressions Impression: # Acute hepatic encephalopathy improving # Chronic liver disease secondary to alcohol with advanced portal hypertension ascites and esophageal variceal bleed Continue current management Assessment & Plan A&P Narrative # Acute hepatic encephalopathy # ALOC secondary to above # Patient really does not have hematemesis some blood in the suction canister is due to the placement of an NGT Since then it has all been bilious drainage No plan to do endoscopy Suggestions Aggressive management of the encephalopathy with Xifaxan and lactulose via the NGT Serial CBC Will follow the patient No plan on any invasive GI workup at the moment Thank you very much for the opportunity to participate in the care of this patient Time Spent With Patient Time: Total time spent is greater than 50% in coordination of care (as documented) at patient's floor/unit and/or counseling patient:
[2024-02-08] MEDS: cefTRIAXone/D5w 1gm IV premix 50 ML IV (14:47)
[2024-02-08] MEDS: LACTULOSE SYRUP 20 GM/30 ML UDC PO (14:47)
--- NOTE | 2024-02-08 15:01 | ESPR_ITS ---
<Statement entered by Heike Muniz MD - 02/08/24 15:39> Patient was examined bedside this morning, she is more stable than yesterday. AOx3. We discontinued octreotide drip. We increased her diet to low-sodium diet. Continue current treatment. Anticipate discharge in next 24 to 48 hours. I discussed with and supervised my co-resident involved in the care of this patient. I agree with the assessment and plan as documented above. Heike Muniz,PGY-3 Disclaimer: Despite multiple revisions, due to the dictation software being used, the document below may not be free of grammatical errors including phonetic/typographic errors. However, this does not deter from our commitment to providing health care in the patient's best interest in mind. Documentation for date of: 02/08/24 Subjective Subjective Interval history: Patient was seen and examined by the bedside. No acute overnight events. Patient reports feeling better, reports having multiple bowel movements. Hgb level is stable, GI consulted, no need for interventions at this time. Exam Vital Signs Temp Pulse Resp BP Pulse Ox O2 Del Method 97.6 F 62 15 105/69 97 Room Air 02/08/24 12:00 02/08/24 12:00 02/08/24 12:00 02/08/24 12:00 02/08/24 12:00 02/08/24 12:00 Narrative Exam Gen: Well-developed and well-nourished. HEENT: NCAT, PERRLA, EOMI, MMM, anicteric conjunctivae. CVS: normal S1 and S2. RRR. No M/R/G. Resp: CTA B/L. No rhonchi, rales, crackles or wheezing. Abd: soft, mildly tender, distended. BS+ in all 4 quadrants. MSK: Good ROM in BUE & BLE. No edema or rash. Neuro: CN II-XII grossly intact. Slow speech. Strength 5/5 in BUE & BLE. Alert and oriented x3. Psych: appropriate mood and affect. Objective Labs 02/08/24 05:22 02/08/24 05:22 Labs: Laboratory Results - last 24 hr 02/08/24 05:22 WBC 4.2 RBC 2.85 L Hgb 9.5 L Hct 29.2 L MCV 103 H MCH 33.3 MCHC 32.5 RDW Std Deviation 78.7 H Plt Count 51 L D Neut % (Auto) 49 Lymph % (Auto) 37 Daniels % (Auto) 9 Eos % (Auto) 4 Baso % (Auto) 1 Neut # (Auto) 2.0 Lymph # (Auto) 1.6 Daniels # (Auto) 0.4 Eos # (Auto) 0.2 Baso # (Auto) 0.0 Immature Gran # (Auto) 0.01 H Absolute Nucleated RBC 0.00 Immature Gran % 0 Nucleated RBC % 0 Sodium 141 Potassium 4.0 Chloride 108 H Carbon Dioxide 27.1 Anion Gap 6 L BUN 11 Creatinine 0.8 Estim Creat Clear Calc 72.7 eGFR > 60 BUN/Creatinine Ratio 14 Glucose 101 Calculated Osmolality 280 Calcium 8.6 Corrected Calcium 9.7 Phosphorus 3.5 Magnesium 1.6 Total Bilirubin 9.1 H D AST 28 ALT 16 Alkaline Phosphatase 80 D Total Protein 5.9 Albumin 2.6 L Globulin 3.3 Albumin/Globulin Ratio 0.8 L Misc Test Result Quality Measures Quality Measures none (due suspicion for GI bleed) Assessment & Plan Assessment Current Active Medications: Generic Name Dose Route Start Last Admin Trade Name Freq PRN Reason Stop Dose Admin Hydrocodone Bitart/Acetaminophen 1 tab 02/07/24 22:09 02/08/24 11:50 Hydrocodone/Apap 5/325 Tablet PO 02/12/24 22:08 1 tab Q8HR PRN Administration Moderate Pain Dextrose 25 ml 02/06/24 15:14 Dextrose 50%-Water Inj 50 Ml Syringe IV 03/07/24 15:13 Q15MIN PRN BG 50-70 responsive npo pt Dextrose 50 ml 02/06/24 15:14 Dextrose 50%-Water Inj 50 Ml Syringe IV 03/07/24 15:13 Q15MIN PRN BG <50 OR BG <70 & pt unresponsive Glucagon 1 mg 02/06/24 15:14 Glucagon Inj 1 Mg Vial IM Q15MIN PRN BG <70, and no IV access Ceftriaxone Sodium/Dextrose 50 mls @ 100 mls/hr 02/07/24 15:00 02/08/24 14:47 Rocephin/D5w 1gm Iv Premix IV 02/14/24 14:59 100 mls/hr QDAY@1500 CELINA Administration Albumin Human 25 gm in 100 mls @ 100 mls/hr 02/08/24 07:45 02/08/24 14:47 Albuminar-25 Ivpb IV 02/11/24 07:44 100 mls/hr TID CELINA Administration Insulin Human Lispro 0 unit 02/06/24 18:00 02/08/24 11:51 Insulin Lispro (Admelog) 1 Unit/0.01 Ml Unit SC 03/07/24 17:59 1 unit Q6HR CELINA Administration Protocol Lactulose 20 gm 02/07/24 22:00 02/08/24 14:47 Lactulose Syrup 20 Gm/30 Ml Udc PO 03/08/24 21:59 20 gm TID CELINA Administration Protocol Midodrine 10 mg 02/08/24 10:43 Midodrine 5 Mg Tablet NG 03/07/24 21:59 TID PRN hypotension Morphine Sulfate 1 mg 02/07/24 22:10 02/08/24 05:46 Morphine Sulf Inj 10 Mg/Ml Vial IVP 02/13/24 00:00 1 mg Q2HR PRN Administration breakthrough pain Pantoprazole Sodium 40 mg 02/06/24 21:00 02/08/24 09:10 Pantoprazole Inj 40 Mg Vial IVP 03/07/24 20:59 40 mg Q12HR CELINA Administration Rifaximin 550 mg 02/06/24 21:00 02/08/24 09:10 Rifaximin 550 Mg Tablet NG 02/13/24 20:59 550 mg BID CELINA Administration Plan The patient is a 53-year-old female with previous medical history of type 2 diabetes, alcoholic cirrhosis, and drug use with recent admission for who was brought to the ED due to altered mental status. According to the mother, she woke up today somnolent, was nauseous and tried to vomit, but nothing came out. She also noticed dark bloody stools and blood-tinged urine. She also reported that her daughter complained of headache in the previous days. She was admitted for decompensated liver cirrhosis and hepatic encephalopathy. #Hepatic encephalopathy, improved #Hyperammonemia, resolving #Hypotension, resolving Decompensated liver cirrhosis due to possible GI bleed. Low BP possibly in the setting of splanchnic vasodilation caused by suspected hepatorenal syndrome. Patient is on rifaximin and ceftriaxone for SBP prophylaxis. Plan: - Lactulose 20 TID, titrate to 2-3 BM per day - rifaximin 550mg BID - ceftriaxone 1 gm daily IV 02/06/24-current ?Aspiration precautions, head of bed elevation 30 degrees - Monitor MAP - Diuretics on hold due to soft blood pressure for now #Decompensated liver cirrhosis #History of esophageal varices #Melena Patient has a history of liver cirrhosis and history of alcoholism. MELD score 21, 19.6% estimated 3-month moprtality. Child-Paniagua score of 12. Recent hospitalization in January 2024 previously, for variceal bleeding, patient had EGD with varices ligation, received 2 units of pRBC. GI consulted, no need for interventions at this point. Plan: ? Lactulose 20 g 3 times daily, titrate to 2-3 bowel movements a day ? Pantoprazole 40 mg IV twice daily - Octreotide drip discontinued ?GI consulted, pending recommendations #LILY, resolved Creatinine 1.3, BUN 20. Ddx: Prerenal vs hepatorenal syndrome 01/30: Previous creatinine level 0.7 02/07: Creatinine 0.8 Plan: ?Monitor daily CMP #Coagulopathy #Thrombocytopenia #Hyperbilirubinemia #Hypoalbuminemia Plan: - monitor daily CMP, platelets #Anemia, normocytic 02/05: Hemoglobin 10.8 02/07: Hgb 9.5 - monitor Hgb, transfuse if <7 #Unspecified back injury Plan: ?Pain control if needed #T2DM Plan: ? Insulin sliding scale with Accu-Cheks Health maintenance: DVT prophylaxis: SCDs GI prophylaxis: Protonix Diet: regular diet Disposition: Tele bed Code status: Full code Plan of care discussed with attending Dr. Alaniz and PGY-[address] Muniz. Nasreen Arellano MD, PGY 1. Attending Provider Attestation/Addendum [place], Shaila Alaniz, , attest that I was physically present for the son portions of the service and evaluated the patient with the resident and I reviewed and discussed the case with the resident and agree with the resident's findings and plans of care as documented above Patient seen eval this a.m. She is states that she has having at least 3 bowel movements at home. She states that her mother has been giving her medications as instructed. Patient was downgraded from ICU yesterday for acute decompensated cirrhosis and hepatic encephalopathy. Patient is ANO x 3 today. She states that she has occasional epigastric discomfort, but has been tolerating diet without issue. No interventions by GI as patient was recently admitted for GI bleed during which varices were banded. Hemodynamically stable at this time. Will order physical therapy and continue with home meds including diuretics. Anticipate discharge in the next 24 to 48 hours. Patient may benefit from being discharged to SNF as she is unable to qualify for home health and has many recent readmissions in the past month. Unclear if she is really compliant with her medications at home.
[2024-02-09] VITALS (12 sets, daily range): BP systolic 95–121; BP diastolic 52–74; PULSE 68–86; RESP 12–98; TEMP 36.2–36.6; O2SAT 96–99; BMI 33.3
[2024-02-09] MEDS: HYDROcodone/APAP 5/325 TABLET 1 TAB PO ×2 (05:26→14:00)
[2024-02-09] MEDS: LACTULOSE SYRUP 20 GM/30 ML UDC PO ×3 (05:26→21:25)
[2024-02-09] MEDS: ALBUMIN HUMAN 25% IVPB 25 GM/100 ML BTL IV (05:27)
[2024-02-09 06:03] LABS: Basophils % (Auto) 1 % (0-2.5); Eosinophils # (Auto) 0.1 Thou/mm3 (0.0-0.5); Eosinophils % (Auto) 4 % (0-10); Hematocrit 27.3 % (36.0-46.0); Hemoglobin 8.9 g/dL (12.0-16.0); Immature Granulocytes % (Auto) 0 % (0-0); Immature Granulocytes Auto 0.01 Thou/mm3 (0.00-0.00); Lymphocytes # (Auto) 1.1 Thou/mm3 (1.0-4.8); Lymphocytes % (Auto) 39 % (10-50); Mean Corpuscular HGB Conc 32.6 g/dl (31.0-37.0); Mean Corpuscular Hemoglobin 33.2 pg (25.0-35.0); Mean Corpuscular Volume 102 fL (80-100); Monocytes # (Auto) 0.2 Thou/mm3 (0.0-0.8); Monocytes % (Auto) 7 % (0-12); Neutrophils # (Auto) 1.3 Thou/mm3 (1.8-7.7); Neutrophils % (Auto) 49 % (37-80); Nucleated Red Blood Cell % 0 /100 WBC (0); RDW Standard Deviation 76.2 fL (36.4-46.3); Red Blood Count 2.68 Miln/mm3 (4.00-5.20)
[2024-02-09 06:20] LABS: Platelet Count 32 Thou/mm3 (140-440)
[2024-02-09 06:21] LABS: White Blood Count 2.8 Thou/mm3 (3.6-11.0)
[2024-02-09 06:22] LABS: Slide Review Platelets confirmed
[2024-02-09 06:52] LABS: Alanine Aminotransferase 14 U/L (10-49); Albumin, Serum 3.2 gm/dL (3.5-5.0); Albumin/Globulin Ratio 1.1 (1.2-2.2); Alkaline Phosphatase 79 U/L (46-116); Anion Gap 7 (7-16); Aspartate Amino Transferase 29 U/L (0-34); BUN/Creatinine Ratio 11 Ratio (12-20); Bilirubin,Total 7.3 mg/dL (0.3-1.2); Blood Urea Nitrogen 8 mg/dL (9-23); Calcium 9.1 mg/dL (8.3-10.6); Calcium (Corrected) 9.7 mg/dL (8.5-10.1); Carbon Dioxide 26.3 mMol/L (20.0-31.0); Chloride 109 mMol/L (98-107); Creatinine (Component) 0.7 mg/dL (0.6-1.3); Glucose 115 mg/dL (74-106); Magnesium 1.6 mg/dL (1.6-2.6); Osmolality,Calculated 282 (275-295); Phosphorous 3.4 mg/dL (2.4-5.1); Potassium 4.3 mMol/L (3.4-5.1); Sodium 142 mMol/L (136-145); Total Protein 6.2 gm/dL (5.7-8.2); eGFR > 60 See Note
[2024-02-09] MEDS: rifaximin 550 MG TABLET PO ×2 (08:54→21:26)
[2024-02-09] MEDS: PANTOPRAZOLE INJ 40 MG VIAL IVP ×2 (08:54→21:26)
[2024-02-09] MEDS: INSULIN LISPRO (AdmeLOG) 1 UNIT/0.01 ML UNIT SC ×2 (12:15→17:04)
[2024-02-09 12:58] LABS: Hematocrit 29.2 % (36.0-46.0); Hemoglobin 9.5 g/dL (12.0-16.0)
[2024-02-09] MEDS: cefTRIAXone/D5w 1gm IV premix 50 ML IV (14:00)
--- NOTE | 2024-02-09 14:06 | PC.SS ---
SS follow up note; Patient is refusing SNF. SS will submit for outpatient PT. Patient will discharge today.
--- NOTE | 2024-02-09 15:09 | ESPR_ITS ---
<Statement entered by Heike Muniz MD - 02/09/24 15:38> Patient was examined bedside this morning, she was comfortably eating her breakfast. Will order ultrasound of abdomen. Physical therapy recommended SNF, patient is refusing SNF previously she was referred for home health by many agencies social services counselor is working on it for outpatient physical therapy. Anticipate discharge in next 24 to 48 hours I discussed with and supervised my co-resident involved in the care of this patient. I agree with the assessment and plan as documented above. Heike Muniz,PGY-3 Disclaimer: Despite multiple revisions, due to the dictation software being used, the document below may not be free of grammatical errors including phonetic/typographic errors. However, this does not deter from our commitment to providing health care in the patient's best interest in mind. Documentation for date of: 02/09/24 Subjective Subjective Interval history: Patient was seen and examined by the bedside. No acute overnight events. Patient reports feeling better, reports having multiple bowel movements and abdominal bloating. Hgb level is stable, GI consulted, no need for interventions at this time. She was started on spironolactone today and ill start Lasix p.o. tomorrow. US ordered to assess for possible ascites. PT assessed the patient, recommended SNF placement, patient declined. Exam Vital Signs Temp Pulse Resp BP Pulse Ox O2 Del Method 97.1 F 74 18 113/74 99 Room Air 02/09/24 12:00 02/09/24 14:00 02/09/24 12:00 02/09/24 14:00 02/09/24 12:00 02/09/24 12:00 Narrative Exam Gen: Well-developed and well-nourished. HEENT: NCAT, PERRLA, EOMI, MMM, mildly icteric conjunctivae. CVS: normal S1 and S2. RRR. No M/R/G. Resp: CTA B/L. No rhonchi, rales, crackles or wheezing. Abd: soft, mildly tender, distended. BS+ in all 4 quadrants. MSK: Good ROM in BUE & BLE. No edema or rash. Neuro: CN II-XII grossly intact. Slow speech. Strength 5/5 in BUE & BLE. Alert and oriented x3. Psych: appropriate mood and affect. Objective Labs 02/10/24 04:29 02/10/24 04:29 Labs: Laboratory Results - last 24 hr 02/09/24 02/09/24 04:38 12:16 WBC 2.8 L RBC 2.68 L Hgb 8.9 L 9.5 L Hct 27.3 L 29.2 L MCV 102 H MCH 33.2 MCHC 32.6 RDW Std Deviation 76.2 H Plt Count 32 L D Neut % (Auto) 49 Lymph % (Auto) 39 [place] % (Auto) 7 Eos % (Auto) 4 Baso % (Auto) 1 Neut # (Auto) 1.3 L Lymph # (Auto) 1.1 [place] # (Auto) 0.2 Eos # (Auto) 0.1 Baso # (Auto) 0.0 Immature Gran # (Auto) 0.01 H Absolute Nucleated RBC 0.00 Immature Gran % 0 Nucleated RBC % 0 Sodium 142 Potassium 4.3 Chloride 109 H Carbon Dioxide 26.3 Anion Gap 7 BUN 8 L Creatinine 0.7 Estim Creat Clear Calc 83.0 eGFR > 60 BUN/Creatinine Ratio 11 L Glucose 115 H Calculated Osmolality 282 Calcium 9.1 Corrected Calcium 9.7 Phosphorus 3.4 Magnesium 1.6 Total Bilirubin 7.3 H D AST 29 ALT 14 Alkaline Phosphatase 79 Total Protein 6.2 Albumin 3.2 L D Globulin 3.0 Albumin/Globulin Ratio 1.1 L Misc Test Result Platelets confirmed Quality Measures Quality Measures none (due suspicion for GI bleed) Assessment & Plan Assessment Current Active Medications: Generic Name Dose Route Start Last Admin Trade Name Freq PRN Reason Stop Dose Admin Hydrocodone Bitart/Acetaminophen 1 tab 02/07/24 22:09 02/09/24 14:00 Hydrocodone/Apap 5/325 Tablet PO 02/12/24 22:08 1 tab Q8HR PRN Administration Moderate Pain Protocol Dextrose 25 ml 02/06/24 15:14 Dextrose 50%-Water Inj 50 Ml Syringe IV 03/07/24 15:13 Q15MIN PRN BG 50-70 responsive npo pt Dextrose 50 ml 02/06/24 15:14 Dextrose 50%-Water Inj 50 Ml Syringe IV 03/07/24 15:13 Q15MIN PRN BG <50 OR BG <70 & pt unresponsive Furosemide 20 mg 02/10/24 09:00 Furosemide 20 Mg Tablet PO 03/11/24 08:59 QAM CELINA Glucagon 1 mg 02/06/24 15:14 Glucagon Inj 1 Mg Vial IM Q15MIN PRN BG <70, and no IV access Ceftriaxone Sodium/Dextrose 50 mls @ 100 mls/hr 02/07/24 15:00 02/09/24 14:00 Rocephin/D5w 1gm Iv Premix IV 02/14/24 14:59 100 mls/hr QDAY@1500 CELINA Administration Albumin Human 25 gm in 100 mls @ 100 mls/hr 02/08/24 07:45 02/09/24 05:27 Albuminar-25 Ivpb IV 02/11/24 07:44 100 mls/hr TID CELINA Administration Insulin Human Lispro 0 unit 02/09/24 07:30 02/09/24 12:15 Insulin Lispro (Admelog) 1 Unit/0.01 Ml Unit SC 03/10/24 07:29 1 unit ACHS CELINA Administration Protocol Lactulose 20 gm 02/07/24 22:00 02/09/24 14:00 Lactulose Syrup 20 Gm/30 Ml Udc PO 03/08/24 21:59 20 gm TID CELINA Administration Protocol Midodrine 10 mg 02/09/24 14:00 02/09/24 14:00 Midodrine 5 Mg Tablet NG 03/10/24 13:59 Not Given TID CELINA Morphine Sulfate 1 mg 02/07/24 22:10 02/08/24 05:46 Morphine Sulf Inj 10 Mg/Ml Vial IVP 02/13/24 00:00 1 mg Q2HR PRN Administration breakthrough pain Pantoprazole Sodium 40 mg 02/06/24 21:00 02/09/24 08:54 Pantoprazole Inj 40 Mg Vial IVP 03/07/24 20:59 40 mg Q12HR CELINA Administration Rifaximin 550 mg 02/09/24 09:00 02/09/24 08:54 Rifaximin 550 Mg Tablet PO 02/16/24 08:59 550 mg BID CELINA Administration Spironolactone 25 mg 02/09/24 15:15 Spironolactone 25 Mg Tablet PO 03/10/24 15:14 DAILY CELINA Plan The patient is a 53-year-old female with previous medical history of type 2 diabetes, alcoholic cirrhosis, and drug use with recent admission for who was brought to the ED due to altered mental status. According to the mother, she woke up today somnolent, was nauseous and tried to vomit, but nothing came out. She also noticed dark bloody stools and blood-tinged urine. She also reported that her daughter complained of headache in the previous days. She was admitted for decompensated liver cirrhosis and hepatic encephalopathy. #Hepatic encephalopathy, improved #Hyperammonemia, resolving #Hypotension, resolving Decompensated liver cirrhosis due to possible GI bleed. Low BP possibly in the setting of splanchnic vasodilation caused by suspected hepatorenal syndrome. Patient is on rifaximin and ceftriaxone for SBP prophylaxis. Plan: - Lactulose 20 TID, titrate to 2-3 BM per day - rifaximin 550mg BID - ceftriaxone 1 gm daily IV 02/06/24-current ?Aspiration precautions, head of bed elevation 30 degrees - Monitor MAP - Spironolactone 25 mg daily - Lasix 20 mg po daily - US abdomen to asses for possible ascites - Simethicone 80 mg QID #Decompensated liver cirrhosis #History of esophageal varices #Melena Patient has a history of liver cirrhosis and history of alcoholism. MELD score 21, 19.6% estimated 3-month moprtality. Child-Paniagua score of 12. Recent hospitalization in January 2024 previously, for variceal bleeding, patient had EGD with varices ligation, received 2 units of pRBC. GI consulted, no need for interventions at this point. Plan: ? Lactulose 20 g 3 times daily, titrate to 2-3 bowel movements a day ? Pantoprazole 40 mg IV twice daily ?GI consulted, pending recommendations #LILY, resolved Creatinine 1.3, BUN 20. Ddx: Prerenal vs hepatorenal syndrome 01/30: Previous creatinine level 0.7 02/07: Creatinine 0.8 Plan: ?Monitor daily CMP #Coagulopathy #Thrombocytopenia #Hyperbilirubinemia #Hypoalbuminemia Plan: - monitor daily CMP, platelets #Anemia, normocytic 02/05: Hemoglobin 10.8 02/07: Hgb 9.5 - monitor Hgb, transfuse if <7 #Unspecified back injury Plan: ?Pain control if needed #T2DM Plan: ? Insulin sliding scale with Accu-Cheks Health maintenance: DVT prophylaxis: SCDs GI prophylaxis: Protonix Diet: regular diet Disposition: Tele bed Code status: Full code Plan of care discussed with attending Dr. Alaniz and PGY-[address] Muniz. Nasreen Arellano MD, PGY 1. Attending Provider Attestation/Addendum I, Shaila Alaniz DO, attest that I was physically present for the son portions of the service and evaluated the patient with the resident and I reviewed and discussed the case with the resident and agree with the resident's findings and plans of care as documented above Patient seen and eval this a.m. She states she is doing proved and anxious to go home. Patient appears very weak. Abdomen appears distended as well and she complains of bloating. Will give simethicone and order ultrasound of abdomen to assess if there is adequate fluid to be removed in the abdomen. Will restart patient on her home diuretics. Will monitor blood pressure closely. Patient will need a assisted facility, but patient has been very against this idea. However, reemphasized the number of readmissions she has had and would benefit from assisted facility. Will have patient work with PT as she is still too weak to go home at this time.
--- NOTE | 2024-02-09 15:13 | XR_ITS ---
Examination: Abdomen sonogram, Limited Date and time of exam: November 10, 2023 1523 hours INDICATIONS: Abdominal distention 5 months Technique: Real-time sifuentes scale transabdominal sonographic images of the abdomen obtained. Findings: Minimal ascitic fluid IMPRESSION: Minimal ascitic fluid
--- NOTE | 2024-02-09 15:30 | PC.SS ---
Addendum entered by Nicole Mendez 02/10/24 12:11: SS follow up note; SS contacted outpatient PT and left Voicemail. SS also provided patient with a copy of outpatient PT referral. Original Note: SS follow up note; SS faxed outpatient PT Referral.
--- NOTE | 2024-02-09 16:49 | PD.IMPROG ---
Documentation for date of: 02/09/24 Subjective Subjective Interval history: Hemoglobin hematocrit 9.5 and 29.2 Patient more alert and oriented Exam Vital Signs Temp Pulse Resp BP Pulse Ox O2 Del Method 97.9 F 72 18 101/63 99 Room Air 02/09/24 16:00 02/09/24 16:00 02/09/24 16:00 02/09/24 16:00 02/09/24 16:00 02/09/24 16:00 Constitutional Comments: Alert oriented Routine Respiratory Exam Comments: Normal to auscultation Routine Abdominal Exam Comments: Soft nontender Objective Labs 02/09/24 12:16 02/09/24 04:38 Labs: Laboratory Results - last 24 hr 02/09/24 02/09/24 04:38 12:16 WBC 2.8 L RBC 2.68 L Hgb 8.9 L 9.5 L Hct 27.3 L 29.2 L MCV 102 H MCH 33.2 MCHC 32.6 RDW Std Deviation 76.2 H Plt Count 32 L D Neut % (Auto) 49 Lymph % (Auto) 39 [place] % (Auto) 7 Eos % (Auto) 4 Baso % (Auto) 1 Neut # (Auto) 1.3 L Lymph # (Auto) 1.1 [place] # (Auto) 0.2 Eos # (Auto) 0.1 Baso # (Auto) 0.0 Immature Gran # (Auto) 0.01 H Absolute Nucleated RBC 0.00 Immature Gran % 0 Nucleated RBC % 0 Sodium 142 Potassium 4.3 Chloride 109 H Carbon Dioxide 26.3 Anion Gap 7 BUN 8 L Creatinine 0.7 Estim Creat Clear Calc 83.0 eGFR > 60 BUN/Creatinine Ratio 11 L Glucose 115 H Calculated Osmolality 282 Calcium 9.1 Corrected Calcium 9.7 Phosphorus 3.4 Magnesium 1.6 Total Bilirubin 7.3 H D AST 29 ALT 14 Alkaline Phosphatase 79 Total Protein 6.2 Albumin 3.2 L D Globulin 3.0 Albumin/Globulin Ratio 1.1 L Misc Test Result Platelets confirmed Impressions Impression: # Acute hepatic encephalopathy improving # Posthemorrhagic anemia most likely upper GI bleed With history of band ligation of the esophageal varices and hypertensive portal gastropathy with mucosal oozing of blood No need for any endoscopic evaluation on this admission Continue current management Assessment & Plan A&P Narrative # Acute hepatic encephalopathy # ALOC secondary to above # Patient really does not have hematemesis some blood in the suction canister is due to the placement of an NGT Since then it has all been bilious drainage No plan to do endoscopy Suggestions Aggressive management of the encephalopathy with Xifaxan and lactulose via the NGT Serial CBC Will follow the patient No plan on any invasive GI workup at the moment Thank you very much for the opportunity to participate in the care of this patient Time Spent With Patient Time: Total time spent is greater than 50% in coordination of care (as documented) at patient's floor/unit and/or counseling patient:
[2024-02-09] MEDS: SPIRONOLACTONE 25 MG TABLET PO (16:57)
[2024-02-09] MEDS: SIMETHICONE 80 MG CHEW PO ×2 (16:57→21:26)
[2024-02-10] VITALS (8 sets, daily range): BP systolic 111–131; BP diastolic 58–73; PULSE 69–84; RESP 15–100; TEMP 36.2–36.5; O2SAT 98–100
[2024-02-10] MEDS: LACTULOSE SYRUP 20 GM/30 ML UDC PO (05:38)
[2024-02-10] MEDS: SIMETHICONE 80 MG CHEW PO ×2 (05:38→12:22)
[2024-02-10 07:01] LABS: Alanine Aminotransferase 14 U/L (10-49); Albumin, Serum 2.9 gm/dL (3.5-5.0); Albumin/Globulin Ratio 0.9 (1.2-2.2); Alkaline Phosphatase 93 U/L (46-116); Anion Gap 9 (7-16); Aspartate Amino Transferase 43 U/L (0-34); BUN/Creatinine Ratio 10 Ratio (12-20); Blood Urea Nitrogen 9 mg/dL (9-23); Calcium 8.8 mg/dL (8.3-10.6); Calcium (Corrected) 9.7 mg/dL (8.5-10.1); Carbon Dioxide 22.9 mMol/L (20.0-31.0); Chloride 109 mMol/L (98-107); Creatinine (Component) 0.9 mg/dL (0.6-1.3); Globulin 3.1 gm/dL (2.3-3.5); Glucose 91 mg/dL (74-106); Osmolality,Calculated 279 (275-295); Potassium 4.4 mMol/L (3.4-5.1); Sodium 141 mMol/L (136-145); eGFR > 60 See Note
[2024-02-10 07:31] LABS: Basophils % (Auto) 1 % (0-2.5); Eosinophils # (Auto) 0.2 Thou/mm3 (0.0-0.5); Eosinophils % (Auto) 5 % (0-10); Hematocrit 28.4 % (36.0-46.0); Hemoglobin 9.2 g/dL (12.0-16.0); Immature Granulocytes % (Auto) 0 % (0-0); Immature Granulocytes Auto 0.01 Thou/mm3 (0.00-0.00); Lymphocytes # (Auto) 1.4 Thou/mm3 (1.0-4.8); Lymphocytes % (Auto) 35 % (10-50); Mean Corpuscular HGB Conc 32.4 g/dl (31.0-37.0); Mean Corpuscular Hemoglobin 34.1 pg (25.0-35.0); Mean Corpuscular Volume 105 fL (80-100); Monocytes # (Auto) 0.4 Thou/mm3 (0.0-0.8); Monocytes % (Auto) 9 % (0-12); Neutrophils % (Auto) 49 % (37-80); Nucleated Red Blood Cell % 0 /100 WBC (0); RDW Standard Deviation 78.6 fL (36.4-46.3); White Blood Count 4.1 Thou/mm3 (3.6-11.0)
[2024-02-10 07:35] LABS: Platelet Count 39 Thou/mm3 (140-440)
[2024-02-10 09:08] LABS: Slide Review Platelets confirmed
[2024-02-10] MEDS: Magnesium Sulfate 2 GM Ivpb 2 GM/50 ML BAG IV (09:38)
[2024-02-10] MEDS: PANTOPRAZOLE INJ 40 MG VIAL IVP (09:38)
[2024-02-10] MEDS: Furosemide 20 MG TABLET PO (09:39)
[2024-02-10] MEDS: SPIRONOLACTONE 25 MG TABLET PO (09:39)
[2024-02-10] MEDS: rifaximin 550 MG TABLET PO (09:39)
--- NOTE | 2024-02-10 10:24 | PC.SS ---
SS follow up note; Patient is pending Dr. Culp's Rec's.
[2024-02-10] MEDS: DICYCLOMINE 10 MG CAPSULE PO (12:22)
--- NOTE | 2024-02-10 13:31 | ESDS_ITS ---
<Statement entered by Shaila Alaniz DO - 02/10/24 15:04> I, Shaila Alaniz DO, attest that I was physically present for the son portions of the service and evaluated the patient with the resident and I reviewed and discussed the case with the resident and agree with the resident's findings and plans of care as documented above <Statement entered by Kyle Desai MD - 02/10/24 14:29> I saw and examined the patient, and I agree with current management stated by Dr Mar MD,PGY1. Plan of care was discussed with the attending physician and resident physician. Disclaimer: Despite multiple revisions, due to the dictation software being used, the document bellow may not be free of grammatical errors including phonetic/typographic errors. However, this does not deter from our commitment to providing health care in the patient's best interest in mind. Dr. Lloyd MD, PGY 2 Planned Discharge Date 02/10/24 DS: Providers Provider Date of admission: 02/06/24 15:01 Primary care physician: LETI Catherine Admitting Provider: Mateo Glover DO Attending Provider on Admission: Shaila Alaniz DO Consults: 02/06/24 18:06 Consult to Sack Filler Stat Comment: Hypotension, liver cirrhosis Consulting Provider: Jon Hensley I 02/07/24 12:59 Consult to Gastroenterology Routine Comment: Consulting Provider: Brenda Culp 02/08/24 10:41 Referral Physical Therapy Stat Comment: Physician Instructions: Attending Provider on DC: Shaila Alaniz DO Discharging Provider: Shaila Alaniz DO DS: Diagnosis Problem List Completed Was Problem List Reviewed/Reconciled?: Yes Hospital Course Hospital Course Hospital course: Summary: The patient is a 53-year-old female with previous medical history of type 2 d iabetes, decompensated cirrhosis with ascites secondary to alcohol use, and substance use disorder who was admitted for acute hepatic encephalopathy and hyperammonemia who was upgraded to ICU for decreased MAP <65 then downgraded on 02/08/2024 on to floors after hepatic encephloapthy, which continued to improve. Hospital Course: Patient was started on scheduled lactulose 20 three times daily with a goal of 2-3 bowel movements per day, spironolactone 25 and furosemide 20 mg daily. Patient's rifampin continued 550 orally twice daily for cirrhosis. Ammonia continued to improve. Ultrasound showed minimal ascitic fluid-no paracentesis recommended at this time. Ceftriaxone was started prophylactically for spontaneous bacterial peritonitis, less likely as blood cultures showed no growth for 48 hours patient's WBC count on admission 5.5 and day of discharge 4.1. No fevers reported. Head CT negative for acute hemorrhage. EKG sinus bradycardia. Patient presented with an LILY with a change creatinine 0.3, which resolved on hospital floors. Decompensation cirrhosis please continue to monitor patient's thrombocytopenia, hyperbilirubinemia, and hypoalbuminemia. History of normocytic anemia likely secondary to cirrhosis. History of chronic back pain secondary to a remote fall occurring in 2017 patient given pain management. Ammonia level on the day of admission 254. Physical therapy recommenced SNF, but at this time patient would like to return home. Discharge recommendations: - Follow-up with your PCP in 1-2 weeks -Continue to take your home medications as prescribed below -Please start taking Spironolactone 25 mg once daily and furosemide 20 mg once daily for your cirrhosis. -Please continue taking lactulose for your cirrhosis. -Follow-up with transplant specialist as scheduled -If your symptoms worsen,please seek immediate medical attention and return to your nearest emergency room -If you do not have a primary care provider, you may follow up at the [facility] at [address] [place], [place] [address], [place] [address] Disposition: Home #Hepatic encephalopathy, resolved #Hyperammonemia, resolving #Hypotension, resolved #Decompensated cirrhosis with ascites secondary to alcohol use disorder #History of esophageal varices #Melena #LILY, resolved #Coagulopathy #Thrombocytopenia #Hyperbilirubinemia #Hypoalbuminemia #Anemia, normocytic - The patient's plan was discussed with attending Dr. Alaniz and senior residents Dr. Lloyd Manuel MD PGY1 Internal Medicine Time Spent with Patient Time attestation: Total time spent providing and/or coordinating discharge services: at least 35 minutes Exam Vital Signs Temp Pulse Resp BP Pulse Ox O2 Del Method 97.2 F 84 18 120/71 99 Room Air 02/10/24 12:02/10/24 12:02/10/24 12:02/10/24 12:02/10/24 12:00 02/10/24 12:00 Narrative Exam General Appearance: Alert & Oriented X3, well-nourished female who is lying in bed in no acute distress HEENT: Skull symmetrical and atraumatic. Conjunctivae pin and moist. Pupils equal, round, reactive to light and accommodation (PERRL). External ear without lesion or discharge. Straight, nares patient, mucosa pink, no discharge. No thyroid nodule appreciated. No cervical lymphadenopathy. Cardio: Normal Rate and Rhythm with S1 and S2 heart sounds. No murmurs or extra heart sounds auscultated. No bruits on carotid auscultation. No peripheral edema or cyanosis. Lungs: Symmetric with good expansion. Chest and back non-tender. Breath sounds vesicular without crackles, wheezing or rhonchi Abdomen: Non-tender, mild- distended, Normal Reactive Bowel Sounds Neuro: Alert, cooperative, oriented to person, place, and time. Speech clear. CN grossly intact. Upper motor strength 5/5 and Lower motor strength 5/5. Sensation intact. Discharge Plan Plan Patient Disposition: HOME (Self Care) Disposition Comment: Stable for admit Care Plan Goals: Discharge recommendations: - Follow-up with your PCP in 1-2 weeks -Continue to take your home medications as prescribed below -Please start taking Spironolactone 25 mg once daily and furosemide 20 mg once daily for your cirrhosis. -Please continue taking lactulose for your cirrhosis. -Follow-up with transplant specialist as scheduled -If your symptoms worsen,please seek immediate medical attention and return to your nearest emergency room -If you do not have a primary care provider, you may follow up at the [facility] at [facility] [address], [place] [address] Prescriptions/Referrals Prescriptions/Med Rec: New spironolactone 25 mg Tablet 25 mg PO DAILY 30 Days Qty: 30 0RF furosemide 20 mg Tablet 20 mg PO QAM 30 Days Qty: 30 0RF Continued pantoprazole 40 mg tablet,delayed release (DR/EC) 40 mg PO QDAY Qty: 30 0RF lactulose 20 gram/30 mL Solution 30 g PO TID 30 Days Qty: 4050 1RF hydrocodone-acetaminophen 5-325 mg Tablet 1 tab PO TID PRN (Reason: Mouth Pain) hydrocortisone acetate [Anucort-HC] 25 mg Suppository 25 mg TX QDAY methocarbamol 750 mg Tablet 750 mg PO BID lidocaine HCl [Lidocaine Viscous] 2 % Solution 5 ml PO 6 TIMES DAILY PRN (Reason: Pain) mupirocin 2 % Ointment 1 applic TOPICAL BID PRN (Reason: Mouth Pain) Patient Comments: PRN FOR THROAT PAIN ergocalciferol (vitamin D2) [Vitamin D2] 1,250 mcg (50,000 unit) Capsule 1,250 mcg PO QWEEK tramadol 50 mg tablet 50 mg PO Q4HR PRN (Reason: Pain) Patient Comments: TAKE 1 TABLET BY MOUTH EVERY 4 HOURS NEEDED FOR MODERATE PAIN 4-6 FOR 5 DAYS Xifaxan 550 mg tablet 550 mg PO BID Patient Comments: TAKE 1 TABLET BY MOUTH TWICE A DAY FOR 1 MONTH midodrine 10 mg tablet 10 mg PO TID Patient Comments: PLEASE SEE ATTACHED FOR DETAILED DIRECTIONS ferrous sulfate 325 mg (65 mg iron) tablet 325 mg PO DAILY Patient Comments: TAKE 1 TABLET BY MOUTH DAILY WITH ORANGE JUICE. -DO NOT GIVE CAFFEINE Discontinued cefuroxime axetil 500 mg Tablet 500 mg PO BID spironolactone 50 mg tablet 25 mg PO 4XD (DME) Biatain Adhesive Foam Dressing 5 X 5 bandage See Rx Instructions .Route Qty: 10 0RF Rx Instructions: As directed furosemide 20 mg tablet 40 mg PO QAM Referrals: Stacy Graff FNP [Primary Care Provider] - Patient/Caregiver Discharge Instructions Print Language: Mozambican Stand Alone Forms: [facility] Award Info., Patient Portal Info Letter Discharge Order Discharge Orders: Discharge (Routine); Ordered 02/10/24 Ordered By: Kyle Desai Quality Discharge Quality Measures VTE prophylaxis
--- NOTE | 2024-02-10 14:33 | PC.SS ---
SS follow up note; SS submitted outpatient PT inquiry through [email or web address].
== END 2024-02-10 14:57 | disposition home or self-care (01) | DRG 280 ==
LOC: SERX 13:08 → SERHOLD 15:34 → S2SX 02-07 00:27 → S2NX 02-07 18:06
PROVIDERS: Nurse Practitioner Primary Care; Student in an Organized Health Care Education/Training Program; Admitting Provider Student in an Organized Health Care Education/Training Program; Emergency Provider Emergency Medicine; PCP Nurse Practitioner Family; Visit Provider Internal Medicine
DX: K70.31 Alcoholic cirrhosis of liver with ascites (principal); K92.1 Melena; E11.9 Type 2 diabetes mellitus without complications; K76.82 Hepatic encephalopathy; I95.9 Hypotension, unspecified; N17.9 Acute kidney failure, unspecified; D69.6 Thrombocytopenia, unspecified; E88.09 Other disorders of plasma-protein metabolism, not elsewhere classified; K76.6 Portal hypertension; D50.0 Iron deficiency anemia secondary to blood loss (chronic)
CPT/HCPCS: 36415; 70450; 71045; 76705; 80053; 80307; 81001; 82140; 83735; 83880; 84100; 84484; 84703; 85014; 85018; 85025; 85610; 85730; 86850; 86900; 86901; 87040; 87081; 93005; 96361; 96365; 96367; 96375; 97162; 99291; J0696; J1815; J2270; J2354; J2470; J3475; J7050; J7120; P9047; A9270

== ENCOUNTER 2024-02-15 02:04 | Inpatient (IN) | payer MEDICAID, SELFPAY ==
[2024-02-15] VITALS (13 sets, daily range): BP systolic 84–118; BP diastolic 47–74; PULSE 53–80; RESP 16–19; TEMP 36.2–36.8; O2SAT 98–100; BMI 30.2; BMI 34.3
--- NOTE | 2024-02-15 02:41 | XR_ITS ---
Examination: AP chest single view Technique : AP portable sitting chest single view Exam date and time: February 15, 2024 0250 hrs. Indications: Weakness beginning several days ago Findings: Significantly reduced inspiratory effort Normal heart size No pneumonia or pulmonary edema The osseous structures are intact The apices of the lungs are not included on this study Impression: Poor inspiratory effort chest x-ray
--- NOTE | 2024-02-15 02:41 | EKG_ITS ---
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
--- NOTE | 2024-02-15 02:42 | PD.EDRME ---
Rapid Medical Screening Exam [facility] Arrival date/time: 02/15/24 02:04 53F with history of cirrhosis presents to ED with mom for several days of increased weakness, constipation and some LLQ ab pain and AMS. Separately, patient has some L chest/breast pain after recent discharge for hepatic encephalopathy. Chief Complaint: Abdominal Pain Vital signs: Vital Signs Temperature 97.9 F 02/15/24 02:16 Pulse Rate 61 02/15/24 02:16 Respiratory Rate 19 02/15/24 02:16 Blood Pressure 118/74 02/15/24 02:16 Pulse Oximetry (%) 100 02/15/24 02:16 Oxygen Delivery Method Room Air 02/15/24 02:16
[2024-02-15 03:49] LABS: Collection Type, Urine Clean Catch
[2024-02-15 03:51] LABS: Basophils % (Auto) 1 % (0-2.5); Eosinophils # (Auto) 0.1 Thou/mm3 (0.0-0.5); Eosinophils % (Auto) 3 % (0-10); Hematocrit 28.2 % (36.0-46.0); Hemoglobin 9.4 g/dL (12.0-16.0); Immature Granulocytes % (Auto) 0 % (0-0); Immature Granulocytes Auto 0.01 Thou/mm3 (0.00-0.00); Lymphocytes # (Auto) 1.1 Thou/mm3 (1.0-4.8); Lymphocytes % (Auto) 27 % (10-50); Mean Corpuscular HGB Conc 33.3 g/dl (31.0-37.0); Mean Corpuscular Hemoglobin 33.6 pg (25.0-35.0); Mean Corpuscular Volume 101 fL (80-100); Monocytes # (Auto) 0.3 Thou/mm3 (0.0-0.8); Monocytes % (Auto) 8 % (0-12); Neutrophils # (Auto) 2.3 Thou/mm3 (1.8-7.7); Neutrophils % (Auto) 60 % (37-80); Nucleated Red Blood Cell % 0 /100 WBC (0); RDW Standard Deviation 83.4 fL (36.4-46.3)
[2024-02-15 03:52] LABS: Platelet Count 58 Thou/mm3 (140-440); White Blood Count 3.9 Thou/mm3 (3.6-11.0)
[2024-02-15 04:09] LABS: B-Type Natriuretic Peptide 279 pg/mL (0-100)
[2024-02-15 04:12] LABS: Ammonia 60 uMol/L (11-32)
[2024-02-15 04:13] LABS: Bacteria,Urine Rare; Bilirubin,Urine Negative (Negative); Blood,Urine 3+ (Negative); Clarity,Urine Clear (Clear/Hazy); Color,Urine Yellow (Lt Yel-Yel); Culture Indicated,Urine Not Indicated; Glucose, Urine Negative (Negative); Hyaline Casts,Urine < 1 /hpf (0-1); Ketones,Urine Negative (Negative); Leukocyte Esterase,Urine Negative (Negative); Nitrite,Urine Negative (Negative); Protein,Urine Negative (Neg - Trace); RBC,Urine 123 /hpf (0-3); Specific Gravity,Urine 1.013 (1.001-1.035); Squamous Epithelial Cell,Urine 3 /hpf (0-5); Urobilinogen,Urine Negative mg/dL (0.0-1.0); WBC,Urine 7 /hpf (0-5)
[2024-02-15 04:13] LABS: Alanine Aminotransferase 17 U/L (10-49); Albumin, Serum 3.1 gm/dL (3.5-5.0); Albumin/Globulin Ratio 0.9 (1.2-2.2); Alkaline Phosphatase 114 U/L (46-116); Anion Gap 7 (7-16); Aspartate Amino Transferase 31 U/L (0-34); BUN/Creatinine Ratio 18 Ratio (12-20); Bilirubin,Total 5.3 mg/dL (0.3-1.2); Blood Urea Nitrogen 25 mg/dL (9-23); Calcium 8.9 mg/dL (8.3-10.6); Calcium (Corrected) 9.6 mg/dL (8.5-10.1); Carbon Dioxide 28.9 mMol/L (20.0-31.0); Chloride 106 mMol/L (98-107); Creatinine (Component) 1.4 mg/dL (0.6-1.3); Estimated Creatinine Clearance 39.4 mL/min (>60); Globulin 3.5 gm/dL (2.3-3.5); Glucose 124 mg/dL (74-106); Lipase 29 U/L (12-53); Osmolality,Calculated 288 (275-295); Potassium 4.8 mMol/L (3.4-5.1); Sodium 142 mMol/L (136-145); Total Protein 6.6 gm/dL (5.7-8.2); Troponin I < 0.020 ng/mL (0.0-0.045); eGFR 45 See Note
[2024-02-15 04:27] LABS: Slide Review Platelets confirmed
--- NOTE | 2024-02-15 04:59 | XR_ITS ---
Examination: CT abdomen with intravenous contrast CT pelvis with intravenous contrast 2-D coronal reconstructions 2-D sagittal reconstructions Date and time of exam:February 15, 2024 0642 hrs. Comparison January 12, 2024 Indications: Left lower abdominal pain and constipation beginning 2 days ago, diabetes history. Cirrhosis history, history 7 mm calculus in the right renal pelvis CTDI: vol (mGy) 10.9 DLP: (mGycm) 515 Technique: Multiple axial sections of the abdomen and pelvis have been obtained. 64 slice high-resolution scanner used. 3 mm axial sections have been obtained, post intravenous injection 30 cc [id number] 2-D sagittal, coronal reconstructions obtained. Low dose protocols were performed. One or more of the following dose reduction techniques were used; automated exposure control, adjustment of the mA and/or KV according to patient size, use of iterative reconstruction technique. Findings: Mild enlargement cardiac contour Cirrhosis, liver nodular in contour Gallbladder wall appears thickened on this study Prominent splenomegaly Esophageal varices Perigastric varices Portosystemic collateral vessels medial to the enlarged spleen No pancreatic mass Posterior right renal cyst 4.4 cm 7 mm, 1 mm, 2 mm right renal calculi 3 mm left renal calculus 1 mm lower pole left renal calculus Tiny subcentimeter periaortic lymph nodes Aorta normal size Anasarca Trace ascites Moderate to large amounts of stool throughout the colon including in the rectal region No discrete colonic lesion Anteverted uterus No adnexal mass Intact urinary bladder Moderate osteopenia Impression: Cirrhosis with prominent splenomegaly Esophageal and perigastric varices Anasarca Trace ascites Bilateral nonobstructing renal calculi Gallbladder wall appears thickened, recommend hepatobiliary sonography follow-up No bowel obstruction or diverticulitis
--- NOTE | 2024-02-15 05:00 | XR_ITS ---
Examination: Breast ultrasound, unilateral, left complete Date and time of exam: February 15, 2024 0538 hrs. Indications: Left breast tenderness and swelling beginning 4 days ago Technique: Real-time sifuentes scale ultrasonographic imaging performed left breast including all 4 quadrants as well as nipple retroareolar and axillary region. Findings: Diffuse edema throughout the breast, no discrete mass Impression: BI-RADS Category 0: Incomplete: Need additional imaging evaluation Diffuse edema throughout the breast, recommend diagnostic mammography follow-up
[2024-02-15] MEDS: SODIUM CHLORIDE 0.9% 500 ML 500 ML 999 ML IV (05:40)
[2024-02-15] MEDS: LACTULOSE SYRUP 20 GM/30 ML UDC PO (05:41)
--- NOTE | 2024-02-15 06:18 | PC.NURSE ---
pure wick placed.
--- NOTE | 2024-02-15 06:31 | EDNOTE_ITS ---
ED Abdominal Pain RME/HPI General Chief Complaint: Abdominal Pain Stated complaint: ABD PAIN Time seen by provider: 02/15/24 06:23 Arrival date/time: 02/15/24 02:04 RME / HPI RME / HPI narrative: 02/15/24 02:04 53F with history of cirrhosis presents to ED with mom for several days of increased weakness, constipation and some LLQ ab pain and AMS. Separately, patient has some L chest/breast pain after recent discharge for hepatic enceph alopathy. DR. SANCHEZ MAIN ED EVALUATION: 53 year old female presents to the Emergency Department accompanied by mother with complaint of altered mental status. Mother at bedside and significant other present over the phone, stated that patient is more fatigued and forgetful the last couple of days. Per family, patient is also mildly constipated and endorses abdominal pain; per family, she was having regular bowel movements 3 times a day up until yesterday when she only had 1 bowel movement. PMHx: Cirrhosis secondary to alcohol use, hepatic encephalopathy, esophageal varices status post banding, and type 2 diabetes mellitus. Social Hx: Alcohol use. Related Data Home Medications ?Medication ?Instructions ?Recorded ?Confirmed tramadol 50 mg tablet 50 mg PO Q4HR PRN Pain 10/20/23 02/06/24 midodrine 10 mg tablet 10 mg PO TID 01/12/24 02/06/24 rifaximin 550 mg tablet (Xifaxan) 550 mg PO BID 01/12/24 02/06/24 ferrous sulfate 325 mg (65 mg 325 mg PO DAILY 01/22/24 02/06/24 iron) tablet ergocalciferol (vitamin D2) 1,250 1,250 mcg PO QWEEK 02/06/24 02/06/24 mcg (50,000 unit) capsule (Vitamin D2) hydrocodone 5 mg-acetaminophen 325 1 tab PO TID PRN Mouth Pain 02/06/24 02/06/24 mg tablet hydrocortisone acetate 25 mg 25 mg CA QDAY 02/06/24 02/06/24 rectal suppository (Anucort-HC) lidocaine HCl 2 % mucosal solution 5 ml PO 6 TIMES DAILY PRN Pain 02/06/24 02/06/24 (Lidocaine Viscous) methocarbamol 750 mg tablet 750 mg PO BID 02/06/24 02/06/24 mupirocin 2 % topical ointment 1 applic topical BID PRN Mouth Pain 02/06/24 02/06/24 Previous Rx's ?Medication ?Instructions ?Recorded pantoprazole 40 mg tablet,delayed 40 mg PO QDAY #30 tabs 10/15/23 release lactulose 20 gram/30 mL oral 30 g (45 mL) PO TID 30 days #4,050 01/31/24 solution mL furosemide 20 mg tablet 20 mg PO QAM 30 days #30 tabs 02/10/24 spironolactone 25 mg tablet 25 mg PO DAILY 30 days #30 tabs 02/10/24 Allergies Allergy/AdvReac Type Severity Reaction Status Date / Time latex Allergy Severe Hives Verified 02/06/24 12:24 Review of Systems Review of Systems ROS Unobtainable: unobtainable due to mental status Past Medical History Past Medical History NEUROLOGIC: Positive Neurological Disorders, Migraine and Spinal Cord Injury; Negative Seizures CARDIAC: Positive Hypotension; Negative Cardiac Disorders or Congestive Heart Failure RESPIRATORY: Negative Chronic Obstructive Pulmonary Disease (COPD) or Asthma GASTROINTESTINAL: Positive Gastrointestinal Disorders, Cirrhosis, Gastrointestinal Bleed and Esophageal Varices GENITOURINARY: Negative Renal Disease REPRODUCTIVE: Positive Endometriosis and Previous Pregnancies MUSCULOSKELETAL: Positive Musculoskeletal Disorders ENDOCRINE: Positive Endocrine Disorders and Diabetes Mellitus Type 2; Negative Diabetes Mellitus Type 1 HEMATOLOGIC: Positive Blood Disorders and Anemia; Negative Sickle Cell Disease PSYCHO/SOCIAL: Positive Depression and Anxiety OTHER HISTORY: Positive Blood Transfusions; Negative Autoimmune Disease, Blood Transfusion Reaction, Anesthesia Reactions or Cancer Family History FAMILY HISTORY: Positive Family Psychiatric Problems and Family Cancer; Negative Family Respiratory Disorders, Family Cardiac Disorders, Family Gastrointestinal Problems, Family Surgery or Family Anesthesia Reaction Surgical History SURGICAL: Positive Section Social History SMOKING STATUS: Never smoker SECOND HAND EXPOSURE: No SUBSTANCE USE: marijuana ED Exam Narrative Physical exam: GENERAL APPEARANCE: awake, altered and history from family, well-developed, well-nourished VITALS: All vitals were reviewed and the pulse ox is 98% on room air, which is normal according to my interpretation. HEENT: Normocephalic, atraumatic; pupils equal, round, reactive to light; EOMI; mucous membranes pink, moist; oropharynx clear NECK: Supple LUNGS: CTABL; no wheezes, no rales, no rhonchi HEART: Regular rate, regular rhythm; normal S1, S2; no murmurs ABDOMEN: non distended; normal BS; soft, no tenderness, no guarding, no rebound; no masses, no organomegaly, no hernia BACK: no CVA tenderness EXTREMITIES: atraumatic; no edema NEUROLOGIC: altered PSYCHIATRIC: unobtainalble SKIN: warm, dry, normal color; no rashes Course Quality Measures none Orders Category Date Time Status CT Screening NOW Care 02/15/24 04:59 Active EKG (ED ONLY) *Do not use* NOW Care 02/15/24 02:42 Completed Insert IV NOW Care 02/15/24 04:[address] abdomen pelvis w con Stat Exams 02/15/24 04:59 Completed EKG (ED Only) Stat Exams 02/15/24 02:41 Draft US breast LT complete Stat Exams 02/15/24 05:00 Completed XR chest 1V portable Stat Exams 02/15/24 02:41 Completed Ammonia Stat Lab 02/15/24 03:34 Completed B-Type Natriuretic Peptide Stat Lab 02/15/24 03:34 Completed CBC Stat Lab 02/15/24 03:34 Completed Comprehensive Metabolic Panel Stat Lab 02/15/24 03:34 Completed Lipase Stat Lab 02/15/24 03:34 Completed Troponin I Stat Lab 02/15/24 03:34 Completed Urinalysis, C/S if Indicated Stat Lab 02/15/24 03:25 Completed Lactulose Syrup [Enulose Syrup] Med 02/15/24 04:59 Discontinued 20 gm PO X1 ONE Sodium Chloride 0.9% 1000 ml [Ns] 1,000 ml Med 02/15/24 08:36 Discontinued IV 999 mls/hr Sodium Chloride 0.9% 500 ml [Ns] 500 ml Med 02/15/24 04:59 Discontinued IV 999 mls/hr fentaNYL INJ [Sublimaze Inj] Med 02/15/24 11:12 Discontinued 50 mcg IVP X1 ONE Vital Signs Vital signs: Vital Signs Temperature 97.9 F 02/15/24 02:16 Pulse Rate 61 02/15/24 02:16 Respiratory Rate 19 02/15/24 02:16 Blood Pressure 118/74 02/15/24 02:16 Pulse Oximetry (%) 100 02/15/24 02:16 Oxygen Delivery Method Room Air 02/15/24 02:16 Abdominal Pain MDM MDM Narrative MDM Narrative:: I, Taylor Sunshine am scribing for and in the presence of Dr. Sanchez. Patient data External records reviewed:: [facility] previous records (Reviewed last admission discharge dated 02/10/24, patient admitted for the following: Acute hepatic encephalopathy.) Clinical information provided by:: family Social determinants that could affect healthcare access:: alcohol use Patient has the following chronic illnesses:: Cirrhosis secondary to alcohol use, hepatic encephalopathy, esophageal varices status post banding, and type 2 diabetes mellitus. How is presenting disease/condition affected by chronic disease/condition?: exacerbated by Evaluation data The following diagnostics were reviewed and interpreted by me:: lab results, radiology exam(s) and EKG tracing(s) (sinus bradycardia, rate 55, low voltage in precordial leads, ) Lab and/or radiology exams considered but not ordered:: none Interpretation Summary: Procedure(s): US breast LT complete Accession Number(s): [id number] cc: Stacy Graff; Aiden Drew MD; Darryl Griggs PA-C~ Examination: Breast ultrasound, unilateral, left complete Date and time of exam: February 15, 2024 0538 hrs. Indications: Left breast tenderness and swelling beginning 4 days ago Technique: Real-time sifuentes scale ultrasonographic imaging performed left breast including all 4 quadrants as well as nipple retroareolar and axillary region. Findings: Diffuse edema throughout the breast, no discrete mass Impression: BI-RADS Category 0: Incomplete: Need additional imaging evaluation Diffuse edema throughout the breast, recommend diagnostic mammography follow-up Dictated By: Aiden Drew MD Procedure(s): CT abdomen pelvis w con Accession Number(s): [id number] cc: Stacy Grfaf; Aiden Drew MD; Darryl Griggs PA-C~ Examination: CT abdomen with intravenous contrast CT pelvis with intravenous contrast 2-D coronal reconstructions 2-D sagittal reconstructions Date and time of exam:February 15, 2024 0642 hrs. Comparison January 12, 2024 Indications: Left lower abdominal pain and constipation beginning 2 days ago, diabetes history. Cirrhosis history, history 7 mm calculus in the right renal pelvis CTDI: vol (mGy) 10.9 DLP: (mGycm) 515 Technique: Multiple axial sections of the abdomen and pelvis have been obtained. 64 slice high-resolution scanner used. 3 mm axial sections have been obtained, post intravenous injection 30 cc [id number] 2-D sagittal, coronal reconstructions obtained. Low dose protocols were performed. One or more of the following dose reduction techniques were used; automated exposure control, adjustment of the mA and/or KV according to patient size, use of iterative reconstruction technique. Findings: Mild enlargement cardiac contour Cirrhosis, liver nodular in contour Gallbladder wall appears thickened on this study Prominent splenomegaly Esophageal varices Perigastric varices Portosystemic collateral vessels medial to the enlarged spleen No pancreatic mass Posterior right renal cyst 4.4 cm 7 mm, 1 mm, 2 mm right renal calculi 3 mm left renal calculus 1 mm lower pole left renal calculus Tiny subcentimeter periaortic lymph nodes Aorta normal size Anasarca Trace ascites Moderate to large amounts of stool throughout the colon including in the rectal region No discrete colonic lesion Anteverted uterus No adnexal mass Intact urinary bladder Moderate osteopenia Impression: Cirrhosis with prominent splenomegaly Esophageal and perigastric varices Anasarca Trace ascites Bilateral nonobstructing renal calculi Gallbladder wall appears thickened, recommend hepatobiliary sonography follow-up No bowel obstruction or diverticulitis Dictated By: Aiden Drew MD Procedure(s): XR chest 1V portable Accession Number(s): [id number] cc: Stacy Graff; Aiden Drew MD; Darryl Griggs PA-C~ Examination: AP chest single view Technique : AP portable sitting chest single view Exam date and time: February 15, 2024 0250 hrs. Indications: Weakness beginning several days ago Findings: Significantly reduced inspiratory effort Normal heart size No pneumonia or pulmonary edema The osseous structures are intact The apices of the lungs are not included on this study Impression: Poor inspiratory effort chest x-ray Dictated By: Aiden Drew MD Procedure(s): US liver Accession Number(s): [id number] cc: Ken Medina MD; Stacy Graff; Aiden Drew MD~ Examination: Abdomen sonogram, Limited Date and time of exam: February 15, 2024 at 1342 hrs. Indications: Generalized abdominal pain beginning 2 days ago, elevated bilirubin on laboratory examination today, CT abdomen pelvis February 15, 2024 0642 hrs. Thickened gallbladder wall, cirrhosis history Technique: Real-time sifuentes scale transabdominal sonographic images of the upper abdomen obtained. Findings: Gallbladder sludge Gallbladder wall 0.46 cm Common bile duct 0.3 cm Pancreatic head 3.3 cm Liver 11.6 cm fatty infiltration irregular contour Normal hepatopedal portal venous flow Patent IVC Impression: Gallbladder sludge, negative for cholelithiasis Suspicious for cholecystitis, recommend HIDA scan or MRCP follow-up Dictated By: Aiden Drew MD Medications / Prescriptions Medications or Prescriptions considered but not ordered:: none Medication administrations:: Medication Administration History Acetaminophen (Acetaminophen 325 Mg Tablet) 650 mg PO Q6H PRN PRN Reason: PAIN OR FEVER > 101 Stop: 03/16/24 12:42 Hydrocodone Bitart/Acetaminophen (Hydrocodone/Apap 5/325 Tablet) 1 tab PO Q6HR PRN PRN Reason: PAIN SCALE 4-6 (Moderate Stop: 02/20/24 12:47 Last Admin: 02/15/24 16:30 Dose: 1 tab Documented By: GATO Dextrose (Dextrose 50%-Water Inj 50 Ml Syringe) 25 ml IV Q15MIN PRN PRN Reason: BG 50-70 responsive npo pt Stop: 03/16/24 12:52 Dextrose (Dextrose 50%-Water Inj 50 Ml Syringe) 50 ml IV Q15MIN PRN PRN Reason: BG <50 OR BG <70 & pt unresponsive Stop: 03/16/24 12:52 Glucagon (Glucagon Inj 1 Mg Vial) 1 mg IM Q15MIN PRN PRN Reason: BG <70, and no IV access Albumin Human (Albuminar-25 Ivpb) 25 gm in 100 mls @ 100 mls/hr IV QDAY [facility] Stop: 02/18/24 09:59 Insulin Human Lispro (Insulin Lispro (Admelog) 1 Unit/0.01 Ml Unit) 0 unit SC ACHS [facility]; Protocol Stop: 03/16/24 16:59 Lactulose (Lactulose Syrup 20 Gm/30 Ml Udc) 30 gm PO TID [facility]; Protocol Stop: 03/16/24 13:59 Last Admin: 02/15/24 16:13 Dose: 30 gm Documented By: GATO Midodrine (Midodrine 5 Mg Tablet) 10 mg PO TID [facility] Stop: 03/16/24 13:59 Last Admin: 02/15/24 16:14 Dose: 10 mg Documented By: GATO Ondansetron HCl (Ondansetron Inj 2 Mg/Ml Inj 2 Ml) 4 mg IV Q6H PRN; Protocol PRN Reason: NAUSEA OR VOMITING Stop: 03/16/24 12:42 Pantoprazole Sodium (Pantoprazole Inj 40 Mg Vial) 40 mg IVP QDAY [facility] Stop: 03/17/24 08:59 Rifaximin (Rifaximin 550 Mg Tablet) 550 mg PO BID [facility] Stop: 02/22/24 12:59 Last Admin: 02/15/24 16:13 Dose: 550 mg Documented By: GATO Discontinued Medications Fentanyl Citrate (Fentanyl Cit Inj 50 Mcg/Ml Amp 2ml) 50 mcg IVP X1 ONE Stop: 02/15/24 11:13 Last Admin: 02/15/24 11:40 Dose: 50 mcg Documented By: GATO Sodium Chloride (Ns) 500 mls @ 999 mls/hr IV .Q31M ONE Stop: 02/15/24 05:29 Last Infusion: 02/15/24 06:14 Dose: Infused Documented By: Admin: 02/15/24 05:40 Dose: 999 mls/hr Documented By: WILL Sodium Chloride (Ns) 1,000 mls @ 999 mls/hr IV .Q1H1M ONE Stop: 02/15/24 09:36 Last Infusion: 02/15/24 10:28 Dose: Infused Documented By: Admin: 02/15/24 09:26 Dose: 999 mls/hr Documented By: GATO Albumin Human (Albuminar-25 Ivpb) 25 gm in 100 mls @ 100 mls/hr IV X1 ONE Stop: 02/15/24 13:59 Last Infusion: 02/15/24 14:25 Dose: Infused Documented By: Admin: 02/15/24 13:22 Dose: 100 mls/hr Documented By: GATO Albumin Human (Albuminar-25 Ivpb) 25 gm in 100 mls @ 100 mls/hr IV Q1H [facility] Stop: 02/15/24 15:59 Last Admin: 02/15/24 16:19 Dose: 100 mls/hr Documented By: GATO Lactulose (Lactulose Syrup 20 Gm/30 Ml Udc) 20 gm PO X1 ONE; Protocol Stop: 02/15/24 05:00 Last Admin: 02/15/24 05:41 Dose: 20 gm Documented By: WILL see above Consultations Consultation(s) initiated? (list below): Yes Consultation #1 (Physician, Specialty, Details): Discussed test HPI, PMHx, lab, radiology results and/or management with hospitalist. Will admit for further evaluation and management. Accepts patient for admission. Time: 12:40 Diagnosis Differential diagnosis abdominal pain: abdominal pain, constipation, small bowel obstruction and other (cirrhosis, Hepatic encephalopathy) Most likely diagnosis given after review of the tests above:: Altered mental status Hepatic encephalopathy Cirrhosis, secondary to alcohol use Acute kidney injury Ascites Admission Indicated Admission indicated?: indicated Admission Request Was there a request for admission?: Yes Admission Attestation Admission request attestation: Discussed case with [] from Hospitalist service regarding admission. Discussed patients ED course, exam findings, labs, and radiology results. The Hospitalist [agrees,declines] to accept the patient for admission. Disposition Plan Disposition Plan: Admit Discharge Plan Plan Patient Disposition: Admit Acute Care w/in Hospital Problem List Clinical Impression: Hepatic encephalopathy, Cirrhosis, Acute kidney injury, AMS (altered mental status), Ascites
--- NOTE | 2024-02-15 06:47 | PC.NURSE ---
Pt taken to CT
[2024-02-15] MEDS: SODIUM CHLORIDE 0.9% 1000 ML 1,000 ML 999 ML IV (09:26)
[2024-02-15] MEDS: fentaNYL CIT INJ 50 mCg/ML AMP 2ML IVP (11:40)
--- NOTE | 2024-02-15 12:30 | PC.NURSE ---
Dr Malave at bedside assessing patient for admission.
--- NOTE | 2024-02-15 12:54 | XR_ITS ---
Examination: Abdomen sonogram, Limited Date and time of exam: February 15, 2024 at 1342 hrs. Indications: Generalized abdominal pain beginning 2 days ago, elevated bilirubin on laboratory examination today, CT abdomen pelvis February 15, 2024 0642 hrs. Thickened gallbladder wall, cirrhosis history Technique: Real-time sifuentes scale transabdominal sonographic images of the upper abdomen obtained. Findings: Gallbladder sludge Gallbladder wall 0.46 cm Common bile duct 0.3 cm Pancreatic head 3.3 cm Liver 11.6 cm fatty infiltration irregular contour Normal hepatopedal portal venous flow Patent IVC Impression: Gallbladder sludge, negative for cholelithiasis Suspicious for cholecystitis, recommend HIDA scan or MRCP follow-up
--- NOTE | 2024-02-15 13:01 | ESHP_ITS ---
<Statement entered by Linus Malave MD - 02/15/24 16:28> Patient well-known by team returning for altered mental status and elevated creatinine noted on labs. Suspicion for hepatorenal syndrome so patient started on albumin and midodrine. Patient endorses decreased bowel movements in the past few days, will continue with lactulose and rifaximin. Patient complaining of abdominal pain, will do thoracentesis. Patient does continue to follow-up with liver transplant at [facility]. Case discussed with team. Linus Malave MD PGY3 Documentation for date of: 02/15/24 HPI History of Present Illness History of present illness: Elzbieta Knight is a 53-year-old female with a past medical history of cirrhosis secondary to alcohol use, hepatic encephalopathy, esophageal varices status post banding, and type 2 diabetes mellitus who presents with altered mental status. Mother was at bedside and significant other present over the phone who stated that patient more fatigued and forgetful the last couple of days. Patient herself states that she was watching movie last night and then woke up in the ED. Family states that she was having regular bowel movements 3 times a day up until yesterday when she only had 1 bowel movement. No significant change in p.o. intake. She does have prescribed Rye and iron pills, but she tries to not take Rye as much as she can. Family has not noticed significantly increased swelling, but patient does endorse abdominal pain. Denies fevers. Also denies hematemesis but does states she chronically has dark stools intermittently. Of note, patient has noticed increase swelling of her left breast that was present toward the end of her last admission. She states that after trying to gain IV access near her left shoulder she has noticed increased swelling. Denies erythema or discharge. PMHx: as noted above Medications: Furosemide, spironolactone, lactulose, rifaximin, midodrine, norco Allergies: NKDA PSHx: Status post band ligation of esophageal varices Review of Systems Review of Systems Systems Reviewed: All systems reviewed, normal except as documented Exam Vital Signs Temp Pulse Resp BP Pulse Ox O2 Del Method 98.3 F 67 17 101/68 98 Room Air 02/15/24 10:58 02/15/24 12:28 02/15/24 12:28 02/15/24 12:28 02/15/24 12:28 02/15/24 12:28 Narrative Exam General: AOx3, fatigued, able to speak full sentences HEENT: NC/AT, mucous membranes moist, bilateral sclera anicteric Cardiovascular: regular rate and rhythm, S1/S2 present, no murmurs appreciated Pulmonary: clear to auscultation bilaterally, no rales/rhonchi/wheezes Abdominal: tender in all quadrants to soft palpation, mildly ascitic, soft Musculoskeletal: 2+ pitting edema in bilateral lower extremities Skin: warm and dry, intact, no rashes Neuro: Asterixis, CN II-XII intact, no focal deficits Results: Labs 02/17/24 05:27 02/17/24 05:27 Labs: Short CBC 02/15/24 Range/Units 03:34 WBC 3.9 (3.6-11.0) Thou/mm3 Hgb 9.4 L (12.0-16.0) g/dL Hct 28.2 L (36.0-46.0) % Plt Count 58 L D (140-440) Thou/mm3 BMP 02/15/24 03:34 Sodium 142 Potassium 4.8 Chloride 106 Carbon Dioxide 28.9 BUN 25 H Creatinine 1.4 H D Glucose 124 H Calcium 8.9 Cardiac Enzymes 02/15/24 Range/Units 03:34 Troponin I < 0.020 (0.0-0.045) ng/mL Liver Function 02/15/24 Range/Units 03:34 Total Bilirubin 5.3 H (0.3-1.2) mg/dL AST 31 (0-34) U/L ALT 17 (10-49) U/L Alkaline Phosphatase 114 (46-116) U/L Albumin 3.1 L (3.5-5.0) gm/dL Urine 02/15/24 Range/Units 03:25 Urine Color Yellow (Lt Yel-Yel) Urine Clarity Clear (Clear/Hazy) Urine pH 6.0 (5.0-7.0) Ur Specific Aiken 1.013 (1.001-1.035) Urine Protein Negative (Neg - Trace) Urine Glucose (UA) Negative (Negative) Quality Measures Quality Measures VTE prophylaxis Medications Home Medications and Allergies Home Medications ?Medication ?Instructions ?Recorded ?Confirmed ?Type tramadol 50 mg tablet 50 mg PO Q4HR PRN Pain 10/20/23 02/06/24 History midodrine 10 mg tablet 10 mg PO TID 01/12/24 02/06/24 History rifaximin 550 mg tablet (Xifaxan) 550 mg PO BID 01/12/24 02/06/24 History ferrous sulfate 325 mg (65 mg 325 mg PO DAILY 01/22/24 02/06/24 History iron) tablet ergocalciferol (vitamin D2) 1,250 1,250 mcg PO QWEEK 02/06/24 02/06/24 History mcg (50,000 unit) capsule (Vitamin D2) hydrocodone 5 mg-acetaminophen 325 1 tab PO TID PRN Mouth Pain 02/06/24 02/06/24 History mg tablet hydrocortisone acetate 25 mg 25 mg NV QDAY 02/06/24 02/06/24 History rectal suppository (Anucort-HC) lidocaine HCl 2 % mucosal solution 5 ml PO 6 TIMES DAILY PRN Pain 02/06/24 02/06/24 History (Lidocaine Viscous) methocarbamol 750 mg tablet 750 mg PO BID 02/06/24 02/06/24 History mupirocin 2 % topical ointment 1 applic topical BID PRN Mouth Pain 02/06/24 02/06/24 History Allergies Allergy/AdvReac Type Severity Reaction Status Date / Time latex Allergy Severe Hives Verified 02/06/24 12:24 Visit Medications Acetaminophen (Acetaminophen 325 Mg Tablet) 650 mg PO Q6H PRN PRN Reason: PAIN OR FEVER > 101 Stop: 03/16/24 12:42 Hydrocodone Bitart/Acetaminophen (Hydrocodone/Apap 5/325 Tablet) 1 tab PO Q6HR PRN PRN Reason: PAIN SCALE 4-6 (Moderate Stop: 02/20/24 12:47 Dextrose (Dextrose 50%-Water Inj 50 Ml Syringe) 25 ml IV Q15MIN PRN PRN Reason: BG 50-70 responsive npo pt Stop: 03/16/24 12:52 Dextrose (Dextrose 50%-Water Inj 50 Ml Syringe) 50 ml IV Q15MIN PRN PRN Reason: BG <50 OR BG <70 & pt unresponsive Stop: 03/16/24 12:52 Glucagon (Glucagon Inj 1 Mg Vial) 1 mg IM Q15MIN PRN PRN Reason: BG <70, and no IV access Albumin Human (Albuminar-25 Ivpb) 25 gm in 100 mls @ 100 mls/hr IV X1 ONE Stop: 02/15/24 13:59 Insulin Human Lispro (Insulin Lispro (Admelog) 1 Unit/0.01 Ml Unit) 0 unit SC ACHS [facility]; Protocol Stop: 03/16/24 16:59 Lactulose (Lactulose Syrup 20 Gm/30 Ml Udc) 30 gm PO TID [facility]; Protocol Stop: 03/16/24 13:59 Midodrine (Midodrine 5 Mg Tablet) 10 mg PO TID [facility] Stop: 03/16/24 13:59 Ondansetron HCl (Ondansetron Inj 2 Mg/Ml Inj 2 Ml) 4 mg IV Q6H PRN; Protocol PRN Reason: NAUSEA OR VOMITING Stop: 03/16/24 12:42 Pantoprazole Sodium (Pantoprazole Inj 40 Mg Vial) 40 mg IVP QDAY [facility] Stop: 03/17/24 08:59 Rifaximin (Rifaximin 550 Mg Tablet) 550 mg PO BID [facility] Stop: 02/22/24 12:59 Discontinued Medications Fentanyl Citrate (Fentanyl Cit Inj 50 Mcg/Ml Amp 2ml) 50 mcg IVP X1 ONE Stop: 02/15/24 11:13 Last Admin: 02/15/24 11:40 Dose: 50 mcg Sodium Chloride (Ns) 500 mls @ 999 mls/hr IV .Q31M ONE Stop: 02/15/24 05:29 Last Infusion: 02/15/24 06:14 Dose: Infused Sodium Chloride (Ns) 1,000 mls @ 999 mls/hr IV .Q1H1M ONE Stop: 02/15/24 09:36 Last Infusion: 02/15/24 10:28 Dose: Infused Lactulose (Lactulose Syrup 20 Gm/30 Ml Udc) 20 gm PO X1 ONE; Protocol Stop: 02/15/24 05:00 Last Admin: 02/15/24 05:41 Dose: 20 gm Assessment & Plan Plan Elzbieta Knight is a 53-year-old female with a past medical history of cirrhosis secondary to alcohol use, hepatic encephalopathy, esophageal varices status post banding, and type 2 diabetes mellitus who is admitted for hepatic encephalopathy and workup of hepatorenal syndrome. #Altered mental status #Hepatic cephalopathy #Cirrhosis, secondary to alcohol use Presents with altered mental status after having just 1 bowel movement the previous day. States that she has been compliant with her lactulose and rifaximin. Ammonia 60, asterixis present on exam. CT A/P: Trace ascites, cirrhosis, thickened gallbladder wall, prominent splenomegaly, esophageal and perigastric varices ? Lactulose 30 g p.o. 3 times daily ? Rifaximin 550 mg p.o. twice daily ? Monitor to see if mental status improves with increased bowel movements #Acute kidney injury #? Hepatorenal syndrome #Ascites Presents with mild ascites and diffuse abdominal pain. Denies fevers and does not have leukocytosis, so we will hold off for SBP prophylaxis for now. ? Albumin challenge to assess hepatorenal syndrome ? 75 g of albumin for 2 days then assess renal function ? Hold diuretics for 2 days during albumin challenge ? Midodrine 10 mg p.o. 3 times daily ? Follow-up urine sodium and creatinine ? Follow-up renal ultrasound ? Pending paracentesis #Swelling of left breast US left breast showed diffuse edema ? Unable to obtain mammogram, will monitor ? Obtain outpatient if unable to here inpatient #Hyperbilirubinemia ? Follow-up liver ultrasound Hospital management: Disposition: med tele Fluids: will hold given possible hepatorenal Diet: low sodium Lines: peripheral DVT prophylaxis: SCDs given low platelets and history of GIB GI prophylaxis: pantoprazole Liz: placed CODE STATUS: full code ----- Plan discussed with attending physician Dr. Sosa and senior resident physician Dr. Ananda Albright MD PGY-1 Internal Medicine Attending Provider Attestation/Addendum I attest that I was physically present for the evaluation, physical examination, lab and imaging review of the patient with the residents. I discussed the case with the residents and agree with the findings and plans of care as documented above. Patient is a 53 years old female with a past medical history of cirrhosis secondary to alcohol use, hepatic encephalopathy, esophageal varices status post banding, and type 2 diabetes mellitus who presents with altered mental status. She started having decreased bowel movement and increasing somnolence since yesterday. Family noted her to be altered and brought to the ED. In the ED patient complaints of abdominal pain. She is also noted to have swelling of lower extremities and abdomen. CT abdomen/pelvis shows trace ascites, gall bladder thickening , cirrhosis, splenomegaly and varices. Patient has elevated ammonia at 60, also has elevated creatinine. We will admit patient for further management of acute hepatic encephalopathy, LILY, rule out hepatorenal syndrome. Godfrey Sosa MD
[2024-02-15] MEDS: ALBUMIN HUMAN 25% IVPB 25 GM/100 ML BTL IV ×3 (13:22→17:33)
--- NOTE | 2024-02-15 13:42 | PC.NURSE ---
opthalmic tech at bedside obtaining images.
--- NOTE | 2024-02-15 13:43 | XR_ITS ---
Examination: Retroperitoneal ultrasound, complete Technique: Multiple high resolution grayscale images of the retroperitoneum obtained, including kidneys and bladder. Exam date and time:February 15, 2024 1414 hrs. Indications: Diagnosis end-stage liver failure, abdominal pain beginning 2 days ago, clinical diagnosis of hepatorenal syndrome Findings: Right kidney 10.2 x 5.6 x 6.2 cm cortex 1.9 cm 32 mm lower pole cyst Left kidney 12.7 x 6.8 x 7.4 cm renal cortex 1.5 cm Mild to moderate bilateral renal parenchymal scar formation No hydronephrosis No bladder mass or bladder calculi Bladder prevoid volume 162 cc postvoid volume 3 cc Impression: Smaller right kidney Bilateral renal cortical thinning Mild to moderate bilateral renal parenchymal scar formation No hydronephrosis
--- NOTE | 2024-02-15 15:04 | PC.CC ---
Patient is a 53 year-old female BIB-family for Hepatic Encephalopathy. Ofe MORENO made [id number] contact with patient. ASW introduced self, role, and reason for visit. Patient appeared alert and oriented to self, location, and situation. In the room during assessment was patient's mother Gemma Knight whom patient provided consent to remain in the room during assessment. Patient was pleasant and engaged in initial assessment. Patient confirmed information on demographics and reports her mother Gemma lives with her. Patient's next of kin is her mother, Gemma Knight . Patient receives [facility] and her caregiver is her ex- Kg Saunders. At home patient uses a wheelchair and walker to ambulate. The patient is not able to complete her own ADLs and is full assist. Patient receives primary care with [facility] and for prescription medication she uses [facility]. Upon being discharged the patient plans to return home with the support of her mother and ex-. surgical services asst to follow-up with any discharge needs.
[2024-02-15 15:18] LABS: Creatinine,Random Urine 56 mg/dL (30-125); Sodium,Urine Random 78.1 mMol/L (20.0-110.0)
[2024-02-15] MEDS: rifaximin 550 MG TABLET PO (16:13)
[2024-02-15] MEDS: LACTULOSE SYRUP 20 GM/30 ML UDC 30 GM PO ×2 (16:13→22:02)
[2024-02-15] MEDS: MIDODRINE 5 MG TABLET 10 MG PO ×2 (16:14→22:01)
[2024-02-15] MEDS: HYDROcodone/APAP 5/325 TABLET 1 TAB PO ×2 (16:30→22:26)
--- NOTE | 2024-02-15 16:35 | PC.NURSE ---
Rn to clarify albumin order, Per Dr Albright wants patient to receive a total of 75gm today.
--- NOTE | 2024-02-15 16:42 | PC.NURSE ---
Report given to Erlinda Ortega patient transferring to room 378.
[2024-02-15] MEDS: INSULIN LISPRO (AdmeLOG) 1 UNIT/0.01 ML UNIT SC (22:43)
[2024-02-16] VITALS (10 sets, daily range): BP systolic 90–105; BP diastolic 50–72; PULSE 64–94; RESP 17; TEMP 36.6–37.2; O2SAT 95–98
[2024-02-16 06:00] LABS: Basophils % (Auto) 1 % (0-2.5); Eosinophils # (Auto) 0.1 Thou/mm3 (0.0-0.5); Eosinophils % (Auto) 4 % (0-10); Hematocrit 24.7 % (36.0-46.0); Immature Granulocytes % (Auto) 1 % (0-0); Immature Granulocytes Auto 0.02 Thou/mm3 (0.00-0.00); Lymphocytes # (Auto) 1.3 Thou/mm3 (1.0-4.8); Lymphocytes % (Auto) 39 % (10-50); Mean Corpuscular HGB Conc 32.4 g/dl (31.0-37.0); Mean Corpuscular Hemoglobin 33.9 pg (25.0-35.0); Mean Corpuscular Volume 105 fL (80-100); Monocytes # (Auto) 0.3 Thou/mm3 (0.0-0.8); Monocytes % (Auto) 9 % (0-12); Neutrophils # (Auto) 1.5 Thou/mm3 (1.8-7.7); Neutrophils % (Auto) 46 % (37-80); Nucleated Red Blood Cell % 0 /100 WBC (0); RDW Standard Deviation 86.3 fL (36.4-46.3); Red Blood Count 2.36 Miln/mm3 (4.00-5.20); White Blood Count 3.3 Thou/mm3 (3.6-11.0)
[2024-02-16 06:04] LABS: Platelet Count 43 Thou/mm3 (140-440)
[2024-02-16] MEDS: LACTULOSE SYRUP 20 GM/30 ML UDC 30 GM PO (06:04)
[2024-02-16] MEDS: MIDODRINE 5 MG TABLET 10 MG PO ×3 (06:05→21:39)
[2024-02-16 06:12] LABS: Ammonia 33 uMol/L (11-32)
[2024-02-16 07:07] LABS: Slide Review Platelets confirmed
[2024-02-16 07:09] LABS: Alanine Aminotransferase 12 U/L (10-49); Albumin, Serum 3.4 gm/dL (3.5-5.0); Albumin/Globulin Ratio 1.4 (1.2-2.2); Alkaline Phosphatase 79 U/L (46-116); Anion Gap 6 (7-16); Aspartate Amino Transferase 28 U/L (0-34); BUN/Creatinine Ratio 17 Ratio (12-20); Bilirubin,Total 5.3 mg/dL (0.3-1.2); Blood Urea Nitrogen 19 mg/dL (9-23); Calcium 10.4 mg/dL (8.3-10.6); Calcium (Corrected) 10.9 mg/dL (8.5-10.1); Carbon Dioxide 26.2 mMol/L (20.0-31.0); Chloride 112 mMol/L (98-107); Creatinine (Component) 1.1 mg/dL (0.6-1.3); Estimated Creatinine Clearance 53.6 mL/min (>60); Globulin 2.5 gm/dL (2.3-3.5); Glucose 99 mg/dL (74-106); Magnesium 2.1 mg/dL (1.6-2.6); Osmolality,Calculated 289 (275-295); Potassium 4.1 mMol/L (3.4-5.1); Sodium 144 mMol/L (136-145); Total Protein 5.9 gm/dL (5.7-8.2); eGFR > 60 See Note
[2024-02-16 07:18] LABS: INR 1.9 (0.9-1.3); Partial Thromboplastin Time 38.7 Seconds (22.0-36.0)
[2024-02-16 07:25] LABS: Phosphorous 3.2 mg/dL (2.4-5.1)
[2024-02-16 08:51] LABS: LDH (Lactate Dehydrogenase) 187 U/L (120-246)
--- NOTE | 2024-02-16 09:00 | XR_ITS ---
Examination: Abdomen sonogram, Limited Date and time of exam: February 16, 2024 1045 hours INDICATIONS: Cirrhosis, increasing abdominal distention this week Technique: Real-time sifuentes scale transabdominal sonographic images of the upper abdomen obtained. Findings: Minimal ascitic fluid IMPRESSION: Minimal ascitic fluid
[2024-02-16] MEDS: rifaximin 550 MG TABLET PO ×2 (10:10→21:38)
[2024-02-16] MEDS: PANTOPRAZOLE INJ 40 MG VIAL IVP (10:10)
[2024-02-16] MEDS: cefTRIAXone/D5w 1gm IV premix 50 ML IV (11:34)
[2024-02-16] MEDS: INSULIN LISPRO (AdmeLOG) 1 UNIT/0.01 ML UNIT SC ×2 (11:34→21:38)
--- NOTE | 2024-02-16 12:05 | ESPR_ITS ---
<Statement entered by Maggie Balatzar MD - 02/16/24 13:52> I discussed with and supervised my co-resident involved in the care of this patient. I agree with the assessment and plan as documented above. Patient mentation improved. More awake, alert today. Doing makeup at bedside. Had 4BM yesterday. Stomach still TTP. Plan for paracenesis today, will add IV antibiotics for SBP prophylaxis. Continuing albumin challenge to rule out hepatorenal, will assess renal function tomorrow. Maggie Baltazar MD PGY-3 Documentation for date of: 02/16/24 Subjective Subjective Interval history: Elzbieta Knight is a 53-year-old female with a past medical history of cirrhosis secondary to alcohol use, hepatic encephalopathy, esophageal varices status post banding, and type 2 diabetes mellitus who is admitted for hepatic encephalopathy and workup of possible hepatorenal syndrome. 02/15: No acute overnight events. Patient seen and examined at bedside. States that she had 4 BMs overnight and 2 BMs in morning. Appears more awake compared to yesterday. Continues to endorse swelling in left breast but no new erythema or discharge. Also continues to endorse no pain that has not changed since yesterday. Pending paracentesis and started ceftriaxone for SBP prophylaxis. Renal function improved with albumin challenge after 24 hours, likely ruling out hepatorenal syndrome but will complete 48 hours of albumin challenge. Exam Vital Signs Temp Pulse Resp BP Pulse Ox O2 Del Method 97.8 F 64 17 105/56 L 98 Room Air 02/16/24 08:00 02/16/24 08:00 02/16/24 08:00 02/16/24 08:00 02/16/24 08:00 02/16/24 08:00 Narrative Exam General: AOx3, fatigued, able to speak full sentences HEENT: NC/AT, mucous membranes moist, bilateral sclera anicteric Cardiovascular: regular rate and rhythm, S1/S2 present, no murmurs appreciated Pulmonary: clear to auscultation bilaterally, no rales/rhonchi/wheezes Abdominal: tender in all quadrants to soft palpation, mildly ascitic, soft Musculoskeletal: 2+ pitting edema in bilateral lower extremities Skin: warm and dry, intact, no rashes Neuro: Asterixis, CN II-XII intact, no focal deficits Objective Labs 02/17/24 05:27 02/16/24 05:35 Labs: Laboratory Results - last 24 hr 02/15/24 02/15/24 02/16/24 03:25 13:25 05:35 WBC 3.3 L RBC 2.36 L Hgb 8.0 L Hct 24.7 L MCV 105 H MCH 33.9 MCHC 32.4 RDW Std Deviation 86.3 H Plt Count 43 L D Neut % (Auto) 46 Lymph % (Auto) 39 Weakley % (Auto) 9 Eos % (Auto) 4 Baso % (Auto) 1 Neut # (Auto) 1.5 L Lymph # (Auto) 1.3 Weakley # (Auto) 0.3 Eos # (Auto) 0.1 Baso # (Auto) 0.0 Immature Gran # (Auto) 0.02 H Absolute Nucleated RBC 0.00 Immature Gran % 1 H Nucleated RBC % 0 PT 19.0 H INR 1.9 H APTT 38.7 H Sodium 144 Potassium 4.1 D Chloride 112 H Carbon Dioxide 26.2 Anion Gap 6 L BUN 19 Creatinine 1.1 Estim Creat Clear Calc 53.6 L eGFR > 60 BUN/Creatinine Ratio 17 Glucose 99 Calculated Osmolality 289 Calcium 10.4 D Corrected Calcium 10.9 H Phosphorus 3.2 Magnesium 2.1 Total Bilirubin 5.3 H AST 28 ALT 12 Alkaline Phosphatase 79 D Ammonia 33 H Lactate Dehydrogenase 187 Total Protein 5.9 Albumin 3.4 L Globulin 2.5 Albumin/Globulin Ratio 1.4 Ur Random Creatinine 56 Ur Random Sodium 78.1 Misc Test Result Platelets confirmed Blood Type O Positive Antibody Screen NEGATIVE Blood Bank Wristband ID Yes Quality Measures Quality Measures VTE prophylaxis Assessment & Plan Assessment Current Active Medications: Generic Name Dose Route Start Last Admin Trade Name Freq PRN Reason Stop Dose Admin Acetaminophen 650 mg 02/15/24 12:43 Acetaminophen 325 Mg Tablet PO 03/16/24 12:42 Q6H PRN PAIN OR FEVER > 101 Hydrocodone Bitart/Acetaminophen 1 tab 02/15/24 12:48 02/15/24 22:26 Hydrocodone/Apap 5/325 Tablet PO 02/20/24 12:47 1 tab Q6HR PRN Administration PAIN SCALE 4-6 (Moderate Dextrose 25 ml 02/15/24 12:53 Dextrose 50%-Water Inj 50 Ml Syringe IV 03/16/24 12:52 Q15MIN PRN BG 50-70 responsive npo pt Dextrose 50 ml 02/15/24 12:53 Dextrose 50%-Water Inj 50 Ml Syringe IV 03/16/24 12:52 Q15MIN PRN BG <50 OR BG <70 & pt unresponsive Glucagon 1 mg 02/15/24 12:53 Glucagon Inj 1 Mg Vial IM Q15MIN PRN BG <70, and no IV access Albumin Human 25 gm in 100 mls @ 100 mls/hr 02/16/24 12:00 Albuminar-25 Ivpb IV 02/18/24 09:59 QDAY CELINA Ceftriaxone Sodium/Dextrose 50 mls @ 100 mls/hr 02/16/24 10:54 02/16/24 11:34 Rocephin/D5w 1gm Iv Premix IV 02/23/24 10:53 100 mls/hr QDAY CELINA Administration Insulin Human Lispro 0 unit 02/15/24 17:00 02/16/24 11:34 Insulin Lispro (Admelog) 1 Unit/0.01 Ml Unit SC 03/16/24 16:59 4 unit ACHS CELINA Administration Protocol Lactulose 30 gm 02/15/24 14:00 02/16/24 06:04 Lactulose Syrup 20 Gm/30 Ml Udc PO 03/16/24 13:59 30 gm TID CELINA Administration Protocol Midodrine 10 mg 02/16/24 08:06 Midodrine 5 Mg Tablet PO 03/16/24 13:59 TID CELINA Ondansetron HCl 4 mg 02/15/24 12:43 Ondansetron Inj 2 Mg/Ml Inj 2 Ml IV 03/16/24 12:42 Q6H PRN NAUSEA OR VOMITING Protocol Pantoprazole Sodium 40 mg 02/16/24 09:00 02/16/24 10:10 Pantoprazole Inj 40 Mg Vial IVP 03/17/24 08:59 40 mg QDAY CELINA Administration Rifaximin 550 mg 02/15/24 13:00 02/16/24 10:10 Rifaximin 550 Mg Tablet PO 02/22/24 12:59 550 mg BID CELINA Administration Plan Elzbieta Knight is a 53-year-old female with a past medical history of cirrhosis secondary to alcohol use, hepatic encephalopathy, esophageal varices status post banding, and type 2 diabetes mellitus who is admitted for hepatic encephalopathy and workup of possible hepatorenal syndrome. #Altered mental status #Hepatic cephalopathy #Cirrhosis, secondary to alcohol use Presents with altered mental status after having just 1 bowel movement the previous day. States that she has been compliant with her lactulose and rifaximin. Ammonia 60, asterixis present on exam. CT A/P: Trace ascites, cirrhosis, thickened gallbladder wall, prominent splenomegaly, esophageal and perigastric varices ? Lactulose 30 g p.o. 3 times daily ? Rifaximin 550 mg p.o. twice daily ? Monitor to see if mental status improves with increased bowel movements #Acute kidney injury #Hepatorenal syndrome, unlikely #Ascites #? Spontaneous bacterial peritonitis Although patient denies fevers and does not have leukocytosis, does present with mild ascites and diffuse abdominal pain so will start prophylactic ceftriaxone Urine creatinine 78 wnl, Na 56 wnl ? Albumin challenge to assess hepatorenal syndrome ? 75 g of albumin for 2 days then assess renal function ? Hold diuretics for 2 days during albumin challenge ? Midodrine 10 mg p.o. 3 times daily ? Pending paracentesis ? Follow-up peritoneal fluid analysis ? Ceftriaxone 1 g IV daily ? Nephrology consulted, appreciate recommendations #Swelling of left breast US left breast showed diffuse edema ? Unable to obtain mammogram, will monitor ? Obtain outpatient if unable to here inpatient ? Continue to monitor #Hyperbilirubinemia US liver: gallbladder sludge, negative for cholelithiasis Total bilirubin stable at 5.3 ? Continue to monitor Hospital management: Disposition: pending paracentesis Fluids: IV albumin Diet: Low-sodium Lines: Peripheral DVT prophylaxis: SCDs GI prophylaxis: Pantoprazole CODE STATUS: full code ----- Plan discussed with attending physician Dr. Sosa and senior resident physician Dr. Delaney Albright MD PGY-1 Internal Medicine Attending Provider Attestation/Addendum I attest that I was physically present for the evaluation, physical examination, lab and imaging review of the patient with the residents. I discussed the case with the residents and agree with the findings and plans of care as documented above. At bedside, patient is more alert and awake, able to answer questions appropriately. Still complaining of abdominal pain and breast discomfort along with diffuse tenderness on palpation. We will start IV Rocephin for possible abdominal infection. Awaiting paracentesis and peritoneal fluid analysis. We will also obtain surgery consult regarding possible cholecystitis. Kidney function improved significantly following albumin challenge ruling out hepatorenal syndrome. Godfrey Sosa MD
[2024-02-16] MEDS: ALBUMIN HUMAN 25% IVPB 25 GM/100 ML BTL IV ×3 (12:08→17:15)
--- NOTE | 2024-02-16 15:08 | PC.SS ---
SS follow up note; Pending Surgery consult.
[2024-02-16] MEDS: HYDROcodone/APAP 5/325 TABLET 1 TAB PO (16:05)
--- NOTE | 2024-02-16 19:57 | PD.NEPHCONS ---
History of Present Illness Data of Consult Consult date: 02/16/24 Requesting Physician: Godfrey Sosa MD Primary Care Provider: LETI Catherine Consult Narrative Reason for consult: LILY History of present illness: Informant mother, patient Ms. Knight is a 53-year-old female with a past medical history of cirrhosis secondary to alcohol use(under the care of of [facility] transplant center,), hepatic encephalopathy, esophageal varices status post banding, and type 2 diabetes mellitus who presents with altered mental status. Mother stated that patient has been becoming more and more confused for the last few days. Patient currently on Xifaxan for encephalopathy. Mother stated patient took pain medications (oxycodone, fentanyl in the past which could have been contributed to her underlying liver disease). Recently was prescribed [place] and has not been taking as prescribed. In the emergency department for labs that showed WBC 3.3, hemoglobin 9 8, platelets 43. INR 1.9. Sodium 144, potassium 4.1, BUN 25, creatinine 1.4, calcium 9.6, bilirubin 5.3, AST 31, ALT 17, ammonia level 60, albumin 3.1 urinalysis shows 3+ blood with RBCs. Urine sodium 78. Patient was started on IV fluids. Creatinine today seems to be better at 1.1. Was also given midodrine, Xifaxan. Nephrology consultation requested for LILY. cc:: cc: Godfrey Sosa MD Review of Systems Review of Systems Narrative Review of Systems: Patient denies any chest pain, shortness of breath. She seems to be more alert and awake. Past Medical History Past Medical History NEUROLOGIC: Positive Neurological Disorders, Migraine and Spinal Cord Injury; Negative Seizures CARDIAC: Positive Hypotension; Negative Cardiac Disorders or Congestive Heart Failure RESPIRATORY: Negative Chronic Obstructive Pulmonary Disease (COPD) or Asthma GASTROINTESTINAL: Positive Gastrointestinal Disorders, Cirrhosis, Gastrointestinal Bleed and Esophageal Varices GENITOURINARY: Negative Renal Disease REPRODUCTIVE: Positive Endometriosis and Previous Pregnancies MUSCULOSKELETAL: Positive Musculoskeletal Disorders ENDOCRINE: Positive Endocrine Disorders and Diabetes Mellitus Type 2; Negative Diabetes Mellitus Type 1 HEMATOLOGIC: Positive Blood Disorders and Anemia; Negative Sickle Cell Disease PSYCHO/SOCIAL: Positive Depression and Anxiety OTHER HISTORY: Positive Blood Transfusions; Negative Autoimmune Disease, Blood Transfusion Reaction, Anesthesia Reactions or Cancer Family History FAMILY HISTORY: Positive Family Psychiatric Problems and Family Cancer; Negative Family Respiratory Disorders, Family Cardiac Disorders, Family Gastrointestinal Problems, Family Surgery or Family Anesthesia Reaction Surgical History SURGICAL: Positive Section Social History SMOKING STATUS: Never smoker SECOND HAND EXPOSURE: No SUBSTANCE USE: marijuana Meds Home Medications and Allergies Home Medications ?Medication ?Instructions ?Recorded ?Confirmed ?Type tramadol 50 mg tablet 50 mg PO Q4HR PRN Pain 10/20/23 02/06/24 History midodrine 10 mg tablet 10 mg PO TID 01/12/24 02/06/24 History rifaximin 550 mg tablet (Xifaxan) 550 mg PO BID 01/12/24 02/06/24 History ferrous sulfate 325 mg (65 mg 325 mg PO DAILY 01/22/24 02/06/24 History iron) tablet ergocalciferol (vitamin D2) 1,250 1,250 mcg PO QWEEK 02/06/24 02/06/24 History mcg (50,000 unit) capsule (Vitamin D2) hydrocodone 5 mg-acetaminophen 325 1 tab PO TID PRN Mouth Pain 02/06/24 02/06/24 History mg tablet hydrocortisone acetate 25 mg 25 mg [place] QDAY 02/06/24 02/06/24 History rectal suppository (Anucort-HC) lidocaine HCl 2 % mucosal solution 5 ml PO 6 TIMES DAILY PRN Pain 02/06/24 02/06/24 History (Lidocaine Viscous) methocarbamol 750 mg tablet 750 mg PO BID 02/06/24 02/06/24 History mupirocin 2 % topical ointment 1 applic topical BID PRN Mouth Pain 02/06/24 02/06/24 History Allergies Allergy/AdvReac Type Severity Reaction Status Date / Time latex Allergy Severe Hives Verified 02/06/24 12:24 Exam Vital Signs Temp Pulse Resp BP Pulse Ox O2 Del Method 37.0 C 68 17 101/50 L 97 Room Air 02/16/24 16:00 02/16/24 16:00 02/16/24 16:00 02/16/24 16:00 02/16/24 16:00 02/16/24 16:00 Narrative Exam GENERAL APPEARANCE: Patient seems to be comfortable, adequately hydrated and nourished. HEENT: EOMI, PERRLA NECK: Neck supple, no JVD or bruit CARDIOVASCULAR: Heart regular, no murmurs LUNGS/CHEST: Chest clear to auscultation. No rales, rhonchi, wheezing ABDOMEN: Soft, nontender, nondistended. No masses. Normal bowel sounds. EXTREMITIES: No edema, clubbing or cyanosis. SKIN: Skin exam normal without any rashes MUSCULOSKELETAL: Musculoskeletal exam normal PSYCHIATRIC: Normal mood, affect LYMPHATICS: No lymphadenopathy noted NEUROLOGICAL : No neurological deficits, no asterixis noted. Results Labs 02/17/24 05:27 02/17/24 05:27 Labs: Short CBC 02/16/24 Range/Units 05:35 WBC 3.3 L (3.6-11.0) Thou/mm3 Hgb 8.0 L (12.0-16.0) g/dL Hct 24.7 L (36.0-46.0) % Plt Count 43 L D (140-440) Thou/mm3 BMP 02/16/24 05:35 Sodium 144 Potassium 4.1 D Chloride 112 H Carbon Dioxide 26.2 BUN 19 Creatinine 1.1 Glucose 99 Calcium 10.4 D Liver Function 02/16/24 Range/Units 05:35 Total Bilirubin 5.3 H (0.3-1.2) mg/dL AST 28 (0-34) U/L ALT 12 (10-49) U/L Alkaline Phosphatase 79 D (46-116) U/L Albumin 3.4 L (3.5-5.0) gm/dL Assessment & Plan Assessment and plan (1) Acute kidney injury: Status: Acute Assessment and plan: LILY secondary to prerenal azotemia. Improved with IV fluids. No evidence of hepatorenal syndrome currently. Hold Lasix for now. (2) AMS (altered mental status): Status: Acute Assessment and plan: Secondary to hepatic encephalopathy. 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 No active bleeding. Will give IV iron. Additional Assessment & Plan Additional Plan: Thank you Romario for allowing me to participate in the care of Ms. Knight (6) Anemia Qualifiers: Other causes of anemia: acute posthemorrhagic
--- NOTE | 2024-02-16 21:25 | PC.NURSE ---
Dr Garcia at bedside talking to pt.
[2024-02-17] VITALS (7 sets, daily range): BP systolic 107–119; BP diastolic 62–71; PULSE 67–85; RESP 16–18; TEMP 36.2–36.7; O2SAT 94–99; BMI 34.2
[2024-02-17] MEDS: MIDODRINE 5 MG TABLET 10 MG PO ×2 (05:37→13:39)
[2024-02-17] MEDS: LACTULOSE SYRUP 20 GM/30 ML UDC 30 GM PO ×2 (05:39→13:39)
[2024-02-17] MEDS: HYDROcodone/APAP 5/325 TABLET 1 TAB PO (05:39)
[2024-02-17 05:47] LABS: Basophils % (Auto) 1 % (0-2.5); Eosinophils # (Auto) 0.1 Thou/mm3 (0.0-0.5); Eosinophils % (Auto) 4 % (0-10); Hematocrit 23.8 % (36.0-46.0); Immature Granulocytes % (Auto) 0 % (0-0); Immature Granulocytes Auto 0.01 Thou/mm3 (0.00-0.00); Lymphocytes # (Auto) 1.3 Thou/mm3 (1.0-4.8); Lymphocytes % (Auto) 39 % (10-50); Mean Corpuscular HGB Conc 33.2 g/dl (31.0-37.0); Mean Corpuscular Hemoglobin 34.3 pg (25.0-35.0); Mean Corpuscular Volume 104 fL (80-100); Monocytes # (Auto) 0.3 Thou/mm3 (0.0-0.8); Monocytes % (Auto) 8 % (0-12); Neutrophils # (Auto) 1.6 Thou/mm3 (1.8-7.7); Neutrophils % (Auto) 48 % (37-80); Nucleated Red Blood Cell % 0 /100 WBC (0); RDW Standard Deviation 84.3 fL (36.4-46.3); White Blood Count 3.2 Thou/mm3 (3.6-11.0)
[2024-02-17 05:49] LABS: Hemoglobin 7.9 g/dL (12.0-16.0); Platelet Count 41 Thou/mm3 (140-440)
[2024-02-17 05:51] LABS: Slide Review Platelets confirmed
[2024-02-17 06:02] LABS: INR 2.2 (0.9-1.3); Prothrombin Time 22.4 Seconds (9.0-12.2)
[2024-02-17 06:14] LABS: Alanine Aminotransferase 11 U/L (10-49); Albumin, Serum 4.1 gm/dL (3.5-5.0); Albumin/Globulin Ratio 1.6 (1.2-2.2); Alkaline Phosphatase 73 U/L (46-116); Anion Gap 7 (7-16); Aspartate Amino Transferase 25 U/L (0-34); BUN/Creatinine Ratio 14 Ratio (12-20); Bilirubin,Total 5.2 mg/dL (0.3-1.2); Blood Urea Nitrogen 13 mg/dL (9-23); Calcium 9.7 mg/dL (8.3-10.6); Calcium (Corrected) 9.7 mg/dL (8.5-10.1); Carbon Dioxide 25.7 mMol/L (20.0-31.0); Chloride 109 mMol/L (98-107); Creatinine (Component) 0.9 mg/dL (0.6-1.3); Estimated Creatinine Clearance 65.5 mL/min (>60); Globulin 2.6 gm/dL (2.3-3.5); Glucose 112 mg/dL (74-106); Osmolality,Calculated 284 (275-295); Phosphorous 3.2 mg/dL (2.4-5.1); Potassium 4.1 mMol/L (3.4-5.1); Sodium 142 mMol/L (136-145); Total Protein 6.7 gm/dL (5.7-8.2); eGFR > 60 See Note
[2024-02-17] MEDS: INSULIN LISPRO (AdmeLOG) 1 UNIT/0.01 ML UNIT SC ×2 (09:17→12:39)
[2024-02-17] MEDS: PANTOPRAZOLE INJ 40 MG VIAL IVP (09:18)
[2024-02-17] MEDS: Furosemide 20 MG TABLET PO (09:18)
[2024-02-17] MEDS: cefTRIAXone/D5w 1gm IV premix 50 ML IV (09:18)
[2024-02-17] MEDS: rifaximin 550 MG TABLET PO (09:18)
[2024-02-17] MEDS: ferumoxytoL (NON-ESRD) 510 MG in SODIUM CHLORIDE 0.9% 100 ML 234 MG IV (09:52)
[2024-02-17] MEDS: EPOETIN ALFA-EPBX INJ 10,000 UNIT/ML VIAL (ESRD) 10000 UNIT SC (09:52)
--- NOTE | 2024-02-17 10:33 | ESPR_ITS ---
Documentation for date of: 02/17/24 Subjective Subjective Interval history: Informant mother, patient Ms. Knight is a 53-year-old female with a past medical history of cirrhosis secondary to alcohol use(under the care of of [facility] transplant center,), hepatic encephalopathy, esophageal varices status post banding, and type 2 diabetes mellitus who presents with altered mental status. Mother stated that patient has been becoming more and more confused for the last few days. Patient currently on Xifaxan for encephalopathy. Mother stated patient took pain medications (oxycodone, fentanyl in the past which could have been contributed to her underlying liver disease). Recently was prescribed [place] and has not been taking as prescribed. In the emergency department for labs that showed WBC 3.3, hemoglobin 9 8, platelets 43. INR 1.9. Sodium 144, potassium 4.1, BUN 25, creatinine 1.4, calcium 9.6, bilirubin 5.3, AST 31, ALT 17, ammonia level 60, albumin 3.1 urinalysis shows 3+ blood with RBCs. Urine sodium 78. Patient was started on IV fluids. Creatinine today seems to be better at 1.1. Was also given midodrine, Xifaxan. Nephrology consultation requested for LILY. 02/17/2024 patient currently seen in medical floor. More comfortable. Denies any chest pain, shortness of breath. Creatinine markedly improved. Will sign off. Review of Systems Review of Systems Narrative Review of Systems: Patient denies any chest pain, shortness of breath. She seems to be more alert and awake. Exam Vital Signs Temp Pulse Resp BP Pulse Ox O2 Del Method 36.2 C 75 18 118/65 97 Room Air 02/17/24 07:47 02/17/24 09:18 02/17/24 07:47 02/17/24 09:18 02/17/24 07:47 02/17/24 07:47 Narrative Exam GENERAL APPEARANCE: Patient seems to be comfortable, adequately hydrated and nourished. HEENT: EOMI, PERRLA NECK: Neck supple, no JVD or bruit CARDIOVASCULAR: Heart regular, no murmurs LUNGS/CHEST: Chest clear to auscultation. No rales, rhonchi, wheezing ABDOMEN: Soft, nontender, nondistended. No masses. Normal bowel sounds. EXTREMITIES: No edema, clubbing or cyanosis. SKIN: Skin exam normal without any rashes MUSCULOSKELETAL: Musculoskeletal exam normal PSYCHIATRIC: Normal mood, affect LYMPHATICS: No lymphadenopathy noted NEUROLOGICAL : No neurological deficits, no asterixis noted. Objective Labs 02/17/24 13:16 02/17/24 05:27 Labs: Laboratory Results - last 24 hr 02/17/24 05:27 WBC 3.2 L RBC 2.30 L Hgb 7.9 L Hct 23.8 L MCV 104 H MCH 34.3 MCHC 33.2 RDW Std Deviation 84.3 H Plt Count 41 L Neut % (Auto) 48 Lymph % (Auto) 39 [place] % (Auto) 8 Eos % (Auto) 4 Baso % (Auto) 1 Neut # (Auto) 1.6 L Lymph # (Auto) 1.3 [place] # (Auto) 0.3 Eos # (Auto) 0.1 Baso # (Auto) 0.0 Immature Gran # (Auto) 0.01 H Absolute Nucleated RBC 0.00 Immature Gran % 0 Nucleated RBC % 0 PT 22.4 H D INR 2.2 H Sodium 142 Potassium 4.1 Chloride 109 H Carbon Dioxide 25.7 Anion Gap 7 BUN 13 Creatinine 0.9 Estim Creat Clear Calc 65.5 eGFR > 60 BUN/Creatinine Ratio 14 Glucose 112 H Calculated Osmolality 284 Calcium 9.7 Corrected Calcium 9.7 Phosphorus 3.2 Magnesium 2.0 Total Bilirubin 5.2 H AST 25 ALT 11 Alkaline Phosphatase 73 Total Protein 6.7 Albumin 4.1 D Globulin 2.6 Albumin/Globulin Ratio 1.6 Misc Test Result Platelets confirmed Assessment & Plan Assessment and plan (1) Acute kidney injury: Status: Acute Assessment and plan: LILY secondary to prerenal azotemia. Improved with IV fluids. No evidence of hepatorenal syndrome currently. Hold Lasix for now. Renal will sign off. (2) AMS (altered mental status): Status: Acute Assessment and plan: Secondary to hepatic encephalopathy. 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 No active bleeding. Will give IV iron. Additional Assessment & Plan Additional Plan: Thank you Romario for allowing me to participate in the care of Ms. Knight Quality - progress note Quality Measures Quality Measures: VTE prophylaxis Reason for Continued Stay Reason for Continued Stay: further monitoring (6) Anemia Qualifiers: Other causes of anemia: acute posthemorrhagic
[2024-02-17 13:50] LABS: Hematocrit 25.3 % (36.0-46.0)
[2024-02-17 13:57] LABS: Hemoglobin 8.1 g/dL (12.0-16.0)
--- NOTE | 2024-02-17 15:40 | ESDS_ITS ---
<Statement entered by Godfrey Sosa MD - 02/18/24 07:28> I attest that I was physically present for the evaluation, physical examination, lab and imaging review of the patient with the residents. I discussed the case with the residents and agree with the findings and plans of care as documented above. At bedside today, patient appears comfortable. States that her abdominal pain have been continuously improving. Denies any nausea or vomiting. Abdominal tenderness has also decreased significantly. Patient has been able to tolerate her diet well. Discussed with general surgery regarding thickened gallbladder wall, stated no need for surgical intervention for now. Patient was planned for diagnostic paracentesis but did not have enough ascitic fluid to perform the procedure safely. Her encephalopathy resolved with lactulose and adequate bowel movement. Her abdominal pain also improved with same. Patient noted to have slowly decreasing hemoglobin but is known to have variceal bleed for which no endoscopic procedure was recommended by GI on previous visit. Patient deemed stable for discharge with close follow-up with PCP, GI. Also advised to have hemoglobin level checked within a week after discharge. Godfrey Sosa MD <Statement entered by Kyle Desai MD - 02/17/24 16:01> I saw and examined the patient, and I agree with current management stated by Dr See HERBERT,PGY1. Plan of care was discussed with the attending physician and resident physician. Disclaimer: Despite multiple revisions, due to the dictation software being used, the document bellow may not be free of grammatical errors including phonetic/typographic errors. However, this does not deter from our commitment to providing health care in the patient's best interest in mind. Dr. Jeromy MD, PGY 2 Planned Discharge Date 02/17/24 DS: Providers Provider Date of admission: 02/15/24 12:43 Primary care physician: LETI Catherine Admitting Provider: Godfrey Sosa MD Attending Provider on Admission: Godfrey Sosa MD Consults: 02/15/24 17:52 Consult to Nephrology Routine Comment: LILY vs Hepatorenal syndrome Consulting Provider: Justa Ramon 02/16/24 13:26 Consult to General Surgery Routine Comment: Consulting Provider: Shellie Dyer Attending Provider on DC: Godfrey Sosa MD Discharging Provider: Rene Cui MD DS: Diagnosis Problem List Completed Was Problem List Reviewed/Reconciled?: Yes Hospital Course Hospital Course Hospital course: Elzbieta Knight is a 53-year-old female with a past medical history of cirrhosis secondary to alcohol use, hepatic encephalopathy, esophageal varices status post banding, and type 2 diabetes mellitus who presented with altered mental status. Mother was at bedside and significant other present over the phone who stated that patient more fatigued and forgetful for couple of days. Family states that she was having regular bowel movements 3 times a day up until day before admission when she only had 1 bowel movement. No significant change in p.o. intake. Patient started on lactulose and rifaxamin. Patient had LILY, suspected hepatorenal syndrome, treated with albumin challenge and resolved. Paracentesis was planned but not performed due to only minimal amount of ascities. Patient given Rocephin for SBP prophylaxis. Patient AMS rresolved, A&Ox4, responds appropriately and follows commands. Patient medically stable and cleared for discharge. Discharge plan: Continue taking all home meds as prescribed. Titrate lactulose 30gm three times daily for 2-3 bowel movements daily Hold Lasix and spironolactone if BP less than 90/60. Follow up with PCP within 2 weeks. Follow up with outpatient GI specialist. Check hemoglobin level within a week Return to ED if worsening symptoms, including altered mental status, bleeding, or worsening abdominal pain. Hospital Diagnoses: #Altered mental status #Hepatic cephalopathy #Cirrhosis, secondary to alcohol use #Acute kidney injury #Hepatorenal syndrome, unlikely #Ascites #Swelling of left breast #Hyperbilirubinemia Plan of care discussed with senior resident Dr. Desai and attending Dr. Sosa. Rene Cui MD PGY-1 Time Spent with Patient Time attestation: Total time spent providing and/or coordinating discharge services: Exam Vital Signs Temp Pulse Resp BP Pulse Ox O2 Del Method 97.1 F 74 18 113/71 98 Room Air 02/17/24 12:00 02/17/24 13:39 02/17/24 12:00 02/17/24 13:39 02/17/24 12:00 02/17/24 12:00 Narrative Exam PE: Gen: Well-developed and well-nourished. HEENT: NCAT, PERRLA, EOMI, MMM, anicteric conjunctivae. CVS: normal S1 and S2. RRR. No M/R/G. Resp: CTA B/L. No rhonchi, rales, crackles or wheezing. Abd: soft, non-tender. Mild distention, positive fluid wave. MSK: Good ROM in BUE & BLE. No edema or rash. Neuro: CN II-XII grossly intact. Strength 4/5 in BUE & 3/5 BLE, baseline for patient. Alert and oriented x4. Psych: appropriate mood and affect. Discharge Plan Plan Patient Disposition: HOME (Self Care) Patient condition on transfer: Stable Care Plan Goals: Continue taking all home meds as prescribed. Titrate lactulose 30gm three times daily for 2-3 bowel movements daily Hold Lasix and spironolactone if BP less than 90/60. Follow up with PCP within 2 weeks. Follow up with outpatient GI specialist. Return to ED if worsening symptoms, including altered mental status, bleeding, or worsening abdominal pain. Prescriptions/Referrals Prescriptions/Med Rec: Continued pantoprazole 40 mg tablet,delayed release (DR/EC) 40 mg PO QDAY Qty: 30 0RF lactulose 20 gram/30 mL Solution 30 g PO TID 30 Days Qty: 4050 1RF hydrocodone-acetaminophen 5-325 mg Tablet 1 tab PO TID PRN (Reason: Mouth Pain) hydrocortisone acetate [Anucort-HC] 25 mg Suppository 25 mg [place] QDAY methocarbamol 750 mg Tablet 750 mg PO BID lidocaine HCl [Lidocaine Viscous] 2 % Solution 5 ml PO 6 TIMES DAILY PRN (Reason: Pain) mupirocin 2 % Ointment 1 applic TOPICAL BID PRN (Reason: Mouth Pain) Patient Comments: PRN FOR THROAT PAIN ergocalciferol (vitamin D2) [Vitamin D2] 1,250 mcg (50,000 unit) Capsule 1,250 mcg PO QWEEK spironolactone 25 mg Tablet 25 mg PO DAILY 30 Days Qty: 30 0RF furosemide 20 mg Tablet 20 mg PO QAM 30 Days Qty: 30 0RF tramadol 50 mg tablet 50 mg PO Q4HR PRN (Reason: Pain) Patient Comments: TAKE 1 TABLET BY MOUTH EVERY 4 HOURS NEEDED FOR MODERATE PAIN 4-6 FOR 5 DAYS Xifaxan 550 mg tablet 550 mg PO BID Patient Comments: TAKE 1 TABLET BY MOUTH TWICE A DAY FOR 1 MONTH midodrine 10 mg tablet 10 mg PO TID Patient Comments: PLEASE SEE ATTACHED FOR DETAILED DIRECTIONS ferrous sulfate 325 mg (65 mg iron) tablet 325 mg PO DAILY Patient Comments: TAKE 1 TABLET BY MOUTH DAILY WITH ORANGE JUICE. -DO NOT GIVE CAFFEINE Referrals: Stacy Graff FNP [Primary Care Provider] - Patient/Caregiver Discharge Instructions Education Materials: Hepatic Encephalopathy Print Language: Syrian Stand Alone Forms: [facility] Award Info., Patient Portal Info Letter Discharge Order Discharge Orders: Discharge (Routine); Ordered 02/17/24 Ordered By: Kyle Desai Quality Discharge Quality Measures VTE prophylaxis
== END 2024-02-17 15:56 | disposition home or self-care (01) | DRG 280 ==
LOC: SERX 07:37 → SERHOLD 14:03 → S3SX 17:07
PROVIDERS: Physician Assistant; Admitting Provider Student in an Organized Health Care Education/Training Program; Emergency Provider Emergency Medicine; PCP Nurse Practitioner Family; Visit Provider Student in an Organized Health Care Education/Training Program
DX: K70.31 Alcoholic cirrhosis of liver with ascites (principal); K76.82 Hepatic encephalopathy; E11.9 Type 2 diabetes mellitus without complications; N17.9 Acute kidney failure, unspecified; N63.20 Unspecified lump in the left breast, unspecified quadrant; D64.9 Anemia, unspecified; E86.0 Dehydration
CPT/HCPCS: 36415; 71045; 74177; 76641; 76705; 76770; 80053; 81001; 82042; 82140; 82150; 82570; 82945; 83615; 83690; 83735; 83880; 84100; 84157; 84300; 84484; 85014; 85018; 85025; 85610; 85730; 86850; 86900; 86901; 87070; 87075; 87205; 89051; 93005; 93225; 96361; 96365; 96375; 99285; A4649; J0696; J1815; J2470; J3010; J7030; J7040; J7050; P9047; Q0138; Q5105; Q9967; A9270

== ENCOUNTER 2024-03-14 19:16 | Observation (INO) | payer MEDICAID, SELFPAY ==
[2024-03-14 19:16] VITALS: BMI 30.2
--- NOTE | 2024-03-14 19:25 | EKG_ITS ---
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
[2024-03-14 20:05] VITALS: BP 103/66; PULSE 50; RESP 19; TEMP 36.8; O2SAT 99
--- NOTE | 2024-03-14 20:17 | PD.EDRME ---
Rapid Medical Screening Exam [facility] Arrival date/time: 03/14/24 19:16 53F with history of alcoholic cirrhosis and DM presents to ED with 1 day of weakness and non-bloody N/V, as well as lower chest/upper ab pain. Chief Complaint: Weakness Vital signs: Vital Signs Temperature 98.3 F 03/14/24 20:05 Pulse Rate 129 H 03/14/24 20:05 Respiratory Rate 19 03/14/24 20:05 Blood Pressure 103/66 03/14/24 20:05 Pulse Oximetry (%) 99 03/14/24 20:05 Oxygen Delivery Method Room Air 03/14/24 20:05
[2024-03-14 21:06] LABS: Basophils % (Auto) 1 % (0-2.5); Eosinophils # (Auto) 0.2 Thou/mm3 (0.0-0.5); Eosinophils % (Auto) 5 % (0-10); Hematocrit 32.3 % (36.0-46.0); Hemoglobin 10.8 g/dL (12.0-16.0); Immature Granulocytes % (Auto) 1 % (0-0); Immature Granulocytes Auto 0.02 Thou/mm3 (0.00-0.00); Lymphocytes # (Auto) 1.2 Thou/mm3 (1.0-4.8); Lymphocytes % (Auto) 27 % (10-50); Mean Corpuscular HGB Conc 33.4 g/dl (31.0-37.0); Mean Corpuscular Hemoglobin 35.8 pg (25.0-35.0); Mean Corpuscular Volume 107 fL (80-100); Monocytes # (Auto) 0.4 Thou/mm3 (0.0-0.8); Monocytes % (Auto) 10 % (0-12); Neutrophils # (Auto) 2.5 Thou/mm3 (1.8-7.7); Neutrophils % (Auto) 58 % (37-80); Nucleated Red Blood Cell % 0 /100 WBC (0); RDW Standard Deviation 69.4 fL (36.4-46.3); Red Blood Count 3.02 Miln/mm3 (4.00-5.20); White Blood Count 4.4 Thou/mm3 (3.6-11.0)
[2024-03-14 21:20] LABS: Platelet Count 40 Thou/mm3 (140-440)
[2024-03-14 21:21] LABS: Alanine Aminotransferase 13 U/L (10-49); Albumin, Serum 2.9 gm/dL (3.5-5.0); Albumin/Globulin Ratio 0.8 (1.2-2.2); Alkaline Phosphatase 150 U/L (46-116); Anion Gap 7 (7-16); Aspartate Amino Transferase 34 U/L (0-34); BUN/Creatinine Ratio 10 Ratio (12-20); Bilirubin,Total 5.4 mg/dL (0.3-1.2); Blood Urea Nitrogen 10 mg/dL (9-23); Calcium 8.8 mg/dL (8.3-10.6); Calcium (Corrected) 9.7 mg/dL (8.5-10.1); Carbon Dioxide 29.7 mMol/L (20.0-31.0); Chloride 102 mMol/L (98-107); Estimated Creatinine Clearance 55.2 mL/min (>60); Globulin 3.7 gm/dL (2.3-3.5); Glucose 186 mg/dL (74-106); Lipase 33 U/L (12-53); Osmolality,Calculated 281 (275-295); Potassium 4.3 mMol/L (3.4-5.1); Sodium 139 mMol/L (136-145); Total Protein 6.6 gm/dL (5.7-8.2); Troponin I < 0.020 ng/mL (0.0-0.045); eGFR > 60 See Note
[2024-03-14 21:23] LABS: Slide Review Platelets confirmed
[2024-03-14 21:26] LABS: Ammonia 99 uMol/L (11-32)
[2024-03-14 21:44] LABS: B-Type Natriuretic Peptide 304 pg/mL (0-100)
[2024-03-14 22:41] VITALS: BP 99/55; PULSE 50; RESP 16; TEMP 36.6; O2SAT 100
--- NOTE | 2024-03-14 22:44 | PC.NURSE ---
Pt to room 1 at this time from lobby; assumed care of pt.
--- NOTE | 2024-03-14 22:47 | PD.EDWEAK ---
ED Weakness RME/HPI General Chief complaint: Weakness Stated complaint: WEAKNESS, VOMITING Arrival date/time: 03/14/24 19:16 RME / HPI RME / HPI Narrative: 03/14/24 19:16 53F with history of alcoholic cirrhosis and DM presents to ED with 1 day of weakness and non-bloody N/V, as well as lower chest/upper ab pain. ------ Dr. Conklin?s Main ED Evaluation: 53yo female with pmhx cirrhosis secondary to alcohol use, hepatic encephalopathy, esophageal varices s/p banding, DMII presents to the ED for a chief complaint of confusion. Patient states she's been nauseated and vomiting all day today, nonbloody. Family at bedside reports the patient's blood pressure dropped to 88/47 at home, noting she was confused and lethargic, so she brought the patient in for evaluation. Patient reports associated diarrhea. Patient states she had a fever 2 days ago. Denies any cough, sore throat or any other assocaited symptoms. Patient states she had an appointment with GI today, but didn't go due to feeling unwell. Related Data Home Medications ?Medication ?Instructions ?Recorded ?Confirmed midodrine 10 mg tablet 10 mg PO TID 01/12/24 03/15/24 rifaximin 550 mg tablet (Xifaxan) 550 mg PO BID 01/12/24 03/15/24 ferrous sulfate 325 mg (65 mg 325 mg PO DAILY 01/22/24 03/15/24 iron) tablet ergocalciferol (vitamin D2) 1,250 1,250 mcg PO QWEEK 02/06/24 03/15/24 mcg (50,000 unit) capsule (Vitamin D2) lidocaine HCl 2 % mucosal solution 5 ml PO 6 TIMES DAILY PRN Pain 02/06/24 02/06/24 (Lidocaine Viscous) methocarbamol 750 mg tablet 750 mg PO BID 02/06/24 03/15/24 furosemide 40 mg tablet 40 mg PO QDAY 03/15/24 03/15/24 oxycodone 5 mg tablet 5 mg PO Q12H PRN Pain 03/15/24 03/15/24 Previous Rx's ?Medication ?Instructions ?Recorded pantoprazole 40 mg tablet,delayed 40 mg PO QDAY #30 tabs 10/15/23 release lactulose 20 gram/30 mL oral 30 g (45 mL) PO TID 30 days #4,050 01/31/24 solution mL Allergies Allergy/AdvReac Type Severity Reaction Status Date / Time latex Allergy Severe Hives Verified 03/14/24 19:18 Review of Systems Review of Systems Systems Reviewed: All systems reviewed, normal except as documented Narrative Review of Systems: Gen: + fever, no chills, no weight loss EYES: No discharge, no visual changes, no pain HEENT: No ear pain, no congestion, no sore throat PULM: No shortness of breath, no cough, no congestion CV: No chest pain, no dyspnea on exertion, no palpitations GI: + nausea, + vomiting, + diarrhea, no pain, no constipation : No frequency, no urgency, no dysuria Musc/skel: No joint pain, no back pain Skin: No rash. Warm and dry. Psyc: No hallucinations, no depression Heme/Lymph: No easy bleeding or bruising tendencies Neuro: No weakness, no headache, + confused Past Medical History Past Medical History NEUROLOGIC: Positive Neurological Disorders, Migraine and Spinal Cord Injury; Negative Seizures CARDIAC: Positive Hypotension; Negative Cardiac Disorders or Congestive Heart Failure RESPIRATORY: Negative Chronic Obstructive Pulmonary Disease (COPD) or Asthma GASTROINTESTINAL: Positive Gastrointestinal Disorders, Cirrhosis, Gastrointestinal Bleed and Esophageal Varices GENITOURINARY: Negative Renal Disease REPRODUCTIVE: Positive Endometriosis and Previous Pregnancies MUSCULOSKELETAL: Positive Musculoskeletal Disorders ENDOCRINE: Positive Endocrine Disorders and Diabetes Mellitus Type 2; Negative Diabetes Mellitus Type 1 HEMATOLOGIC: Positive Blood Disorders and Anemia; Negative Sickle Cell Disease PSYCHO/SOCIAL: Positive Depression and Anxiety OTHER HISTORY: Positive Blood Transfusions; Negative Autoimmune Disease, Blood Transfusion Reaction, Anesthesia Reactions or Cancer Family History FAMILY HISTORY: Positive Family Psychiatric Problems and Family Cancer; Negative Family Respiratory Disorders, Family Cardiac Disorders, Family Gastrointestinal Problems, Family Surgery or Family Anesthesia Reaction Surgical History SURGICAL: Positive Section Social History SMOKING STATUS: Never smoker SECOND HAND EXPOSURE: No SUBSTANCE USE: marijuana ED Exam Narrative Physical exam: GENERAL APPEARANCE: somnolent, easily arousable, slow to answer, well-developed, well-nourished, no acute distress VITALS: All vitals were reviewed and the pulse ox is 100% on room air, which is normal according to my interpretation. HEENT: Normocephalic, atraumatic; pupils equal, round, reactive to light; EOMI; scleral icterus; mucous membranes pink, moist; oropharynx clear NECK: Supple LUNGS: CTABL; no wheezes, no rales, no rhonchi HEART: Bradycardic, regular rhythm; normal S1, S2; no murmurs ABDOMEN: distended; normal BS; soft, mild generalized abdominal tenderness, no guarding, no rebound, no rigidity; no masses, no organomegaly, no hernia BACK: no CVA tenderness EXTREMITIES: atraumatic; no edema NEUROLOGIC: somnolent, easily arousable; cranial nerves II-XII grossly intact; no focal sensory or motor deficits PSYCHIATRIC: appropriate mood and affect SKIN: warm, dry, jaundice; no rashes Course Course Course Narrative: 0348: Dr. Garcia came down and evaluated the patient. She is requesting to give the patient albumin. 0530: Patient's blood pressure is 87 systolic after receiving albumin. Will re-consult with the hospitalist regarding admission. Quality Measures none Orders Category Date Time Status Bedside COVID-19 Antigen Test NOW Care 03/14/24 22:59 Active Bedside Influenza A&B Antigen Test NOW Care 03/14/24 22:59 Completed Blood glucose [Bedside Blood Glucose] NOW Care 03/14/24 19:25 Active EKG (ED ONLY) *Do not use* NOW Care 03/14/24 19:25 Completed EKG (ED Only) Stat Exams 03/14/24 19:25 Draft XR chest 1V portable Stat Exams 03/14/24 23:00 Completed Alcohol, Blood Medical Stat Lab 03/14/24 20:45 Completed Ammonia Stat Lab 03/14/24 20:45 Completed B-Type Natriuretic Peptide Stat Lab 03/14/24 20:45 Completed CBC Stat Lab 03/14/24 20:45 Completed Comprehensive Metabolic Panel Stat Lab 03/14/24 20:45 Completed Drug Screen,Urine Stat Lab 03/15/24 03:20 Completed Lipase Stat Lab 03/14/24 20:45 Completed Troponin I Stat Lab 03/14/24 20:45 Completed Urinalysis Stat Lab 03/15/24 03:20 Completed ACETAMIN/CAFF/BUTAL (Fioricet) [Fioricet] Med 03/15/24 03:57 Discontinued 1 tab PO X1 ONE Albumin Human 25% Ivpb [Albuminar-25 Ivpb] Med 03/15/24 03:50 Discontinued 25 gm in 100 ml IV NOW Sodium Chloride 0.9% 1000 ml [Ns] 1,000 ml Med 03/14/24 23:00 Discontinued IV 999 mls/hr Sodium Chloride 0.9% 1000 ml [Ns] 1,000 ml Med 03/15/24 01:22 Discontinued IV 999 mls/hr Reevaluation(s) Reevaluation #1: Patient's blood pressure is 99/58 with a heart rate of 60. Additional liter of IVF ordered. Time: 00:31 Reevaluation #2: Patient's blood pressure is still 89 systolically despite getting 2L NS IVF. Will consult an admission to the hospitalist. Time: 03:09 Vital Signs Vital signs: Vital Signs Temperature 98.3 F 03/14/24 20:05 Pulse Rate 50 L 03/14/24 20:05 Respiratory Rate 19 03/14/24 20:05 Blood Pressure 103/66 03/14/24 20:05 Pulse Oximetry (%) 99 03/14/24 20:05 Oxygen Delivery Method Room Air 03/14/24 20:05 Weakness MDM Narrative MDM Narrative:: Scribe Attestation: 03/14/24 Kaley Enriquez am scribing for and in the presence of Dr. Conklin. Patient data External records reviewed:: [facility] previous records (Per chart review, patient was admitted here on 02/06/24 for acute hepatic encephalopathy.) Clinical information provided by:: patient Social determinants that could affect healthcare access:: alcohol use (history of) Patient has the following chronic illnesses:: cirrhosis secondary to alcohol use, hepatic encephalopathy, esophageal varices s/p banding, DMII How is presenting disease/condition affected by chronic disease/condition?: uneffected by Evaluation data The following diagnostics were reviewed and interpreted by me:: lab results and EKG tracing(s) Lab and/or radiology exams considered but not ordered:: none Interpretation Summary: Bedside COVID and Influenza are negative, WBC count is normal, HnH is 10.8/32.3, Platelets are low at 40, Total Bilirubin is elevated at 5.4 (which is chronic), Ammonia is elevated at 99, troponin is normal, BNP is 304, according to my interpretation. EKG done at 2002, sinus bradycardia, rate of 49, normal axis, no ectopy, no acute ischemia, according to my interpretation. Medications / Prescriptions Medications or Prescriptions considered but not ordered:: none Medication administrations:: Medication Administration History Dextrose (Dextrose 50%-Water Inj 50 Ml Syringe) 25 ml IV Q15MIN PRN PRN Reason: BG 50-70 responsive npo pt Stop: 04/14/24 06:09 Dextrose (Dextrose 50%-Water Inj 50 Ml Syringe) 50 ml IV Q15MIN PRN PRN Reason: BG <50 OR BG <70 & pt unresponsive Stop: 04/14/24 06:09 Dicyclomine HCl (Dicyclomine 10 Mg Capsule) 10 mg PO QID PRN PRN Reason: CRAMPS Stop: 04/14/24 17:07 Last Admin: 03/15/24 22:40 Dose: 10 mg Documented By: NATE Glucagon (Glucagon Inj 1 Mg Vial) 1 mg IM Q15MIN PRN PRN Reason: BG <70, and no IV access Ceftriaxone Sodium/Dextrose (Rocephin/D5w 1gm Iv Premix) 50 mls @ 100 mls/hr IV QDAY [facility] Stop: 03/22/24 11:09 Last Infusion: 03/15/24 12:05 Dose: Infused Documented By: Admin: 03/15/24 11:30 Dose: 100 mls/hr Documented By: CB Insulin Human Lispro (Insulin Lispro (Admelog) 1 Unit/0.01 Ml Unit) 0 unit SC AC [facility]; Protocol Stop: 04/14/24 07:29 Last Admin: 03/15/24 17:55 Dose: 2 unit Documented By: REZA Co-signed By: Admin: 03/15/24 11:46 Dose: 2 unit Documented By: CB Co-signed By: VON Admin: 03/15/24 07:39 Dose: Not Given Documented By: KDC Non-Admin Reason: Contraindicated Lactulose (Lactulose Syrup 20 Gm/30 Ml Udc) 30 gm PO TID [facility]; Protocol Stop: 04/14/24 06:14 Last Admin: 03/15/24 21:03 Dose: 30 gm Documented By: Admin: 03/15/24 14:50 Dose: 30 gm Documented By: Admin: 03/15/24 06:31 Dose: 30 gm Documented By: VESNA Midodrine (Midodrine 5 Mg Tablet) 10 mg PO TID [facility] Stop: 04/14/24 06:44 Last Admin: 03/15/24 21:01 Dose: 10 mg Documented By: Admin: 03/15/24 14:50 Dose: 10 mg Documented By: Admin: 03/15/24 07:47 Dose: 10 mg Documented By: BD Ondansetron HCl (Ondansetron Inj 2 Mg/Ml Inj 2 Ml) 4 mg IV Q8HR PRN; Protocol PRN Reason: NAUSEA OR VOMITING Stop: 04/14/24 06:07 Oxycodone HCl (Oxycodone Hcl 5 Mg Ir Tab) 5 mg PO Q6HR PRN PRN Reason: PAIN SCALE 4-10(Mod-Sev Stop: 03/20/24 06:01 Last Admin: 03/15/24 20:58 Dose: 5 mg Documented By: Admin: 03/15/24 07:47 Dose: 5 mg Documented By: EDUARDO Pantoprazole Sodium (Pantoprazole Inj 40 Mg Vial) 40 mg IV QDAY [facility] Stop: 04/14/24 08:59 Last Admin: 03/15/24 11:28 Dose: 40 mg Documented By: CB Rifaximin (Rifaximin 550 Mg Tablet) 550 mg PO BID [facility] Stop: 03/22/24 08:59 Last Admin: 03/15/24 20:58 Dose: 550 mg Documented By: Admin: 03/15/24 11:28 Dose: 550 mg Documented By: CB Discontinued Medications Acetaminophen/Butalbital/Caffeine (Acetamin/Caff/Butal (Fioricet) 1 Tab) 1 tab PO X1 ONE Stop: 03/15/24 03:58 Last Admin: 03/15/24 04:38 Dose: 1 tab Documented By: KG Sodium Chloride (Ns) 1,000 mls @ 999 mls/hr IV .Q1H1M ONE Stop: 03/15/24 00:00 Last Infusion: 03/15/24 00:16 Dose: Infused Documented By: Admin: 03/14/24 23:15 Dose: 999 mls/hr Documented By: CVL Sodium Chloride (Ns) 1,000 mls @ 999 mls/hr IV .Q1H1M ONE Stop: 03/15/24 02:22 Last Infusion: 03/15/24 02:29 Dose: Infused Documented By: Admin: 03/15/24 01:28 Dose: 999 mls/hr Documented By: KG Albumin Human (Albuminar-25 Ivpb) 25 gm in 100 mls @ 100 mls/hr IV NOW ONE Stop: 03/15/24 04:49 Last Infusion: 03/15/24 04:56 Dose: Infused Documented By: Admin: 03/15/24 03:56 Dose: 100 mls/hr Documented By: KG Comments: spoke to Dr. Conklin & Dr. Garcia re: poss interaction between albumin & latex allergy, MD's ok'd to proceed with ambulance paramedic; pt verified she has had albumin before without any problem; will monitor pt closely. Albumin Human (Albuminar-25 Ivpb) 25 gm in 100 mls @ 100 mls/hr IV X1 ONE Stop: 03/15/24 06:55 Last Infusion: 03/15/24 07:40 Dose: Infused Documented By: Admin: 03/15/24 06:32 Dose: 100 mls/hr Documented By: CVL Rifampin (Rifampin 300 Mg Capsule) 300 mg PO BID [facility] Stop: 04/14/24 08:59 see above, if any Consultations Consultation(s) initiated? (list below): Yes Consultation #1 (Physician, Specialty, Details): Discussed case with [Dr. Garcia, attending Dr. Beasley] from Hospitalist service regarding admission. Discussed patients ED course, exam findings, labs, and radiology results. The Hospitalist will come evaluate the patient. Time: 03:10 Consultation #2 (Physician, Specialty, Details): Discussed case with [Dr. Beasley] from Hospitalist service regarding admission. Discussed patients ED course, exam findings, labs, and radiology results. The Hospitalist [agrees] to accept the patient for admission. Time: 05:31 Diagnosis Weakness Differential Diagnosis: other (viral stomach flu, spontaneous bacterial peritonitis, pneumonia, UTI, other) Most likely diagnosis given after review of the tests above:: see below Admission Indicated Admission indicated?: indicated Admission Request Was there a request for admission?: Yes Admission Attestation Admission request attestation: Discussed case with [] from Hospitalist service regarding admission. Discussed patients ED course, exam findings, labs, and radiology results. The Hospitalist [agrees,declines] to accept the patient for admission. Disposition Plan Disposition Plan: Admit Critical Care Time Critical Care Time Critical Care Time: Yes Total Critical Care Time (min.): 35 Attestation: The high probability of sudden, clinically significant deterioration in the patient?s condition required the highest level of my preparedness to intervene urgently. The services I provided to this patient were to treat and/or prevent clinically significant deterioration. Services included the following: chart data review, reviewing nursing notes and/or old charts, documentation time, surgical consultant collaboration regarding findings and treatment options, medication orders and management, direct patient care, vital sign assessments and ordering, interpreting and reviewing diagnostic studies and lab tests. Aggregate critical care time includes only time during which I was engaged in work directly related to the patient?s care, as described above, whether at bedside or elsewhere in the Emergency Department. It did not include time spent performing other reported procedures or the services of residents, students, nurses or physician assistants. Discharge Plan Plan Patient Disposition: Admit Acute Care w/in Hospital Problem List Clinical Impression: Cirrhosis, Anemia, Hepatic encephalopathy
--- NOTE | 2024-03-14 23:00 | XR_ITS ---
Examination: AP chest single view Technique one AP portable semiupright chest single view Exam done: March 14, 2024 at 11:17 PM Comparison February 15, 2024 INDICATIONS: Pleuritic chest pain today. FINDINGS: Normal heart size Lungs are clear. The osseous structures are intact Impression: No active disease
[2024-03-14] MEDS: SODIUM CHLORIDE 0.9% 1000 ML 1,000 ML 999 ML IV (23:15)
[2024-03-14 23:23] LABS: Alcohol, Blood Medical < 10.0 mg/dL (0-10.0)
[2024-03-15] VITALS (16 sets, daily range): BP systolic 84–110; BP diastolic 52–72; PULSE 51–65; RESP 14–18; TEMP 36.1–37.3; O2SAT 94–99; BMI 30.2
[2024-03-15] MEDS: SODIUM CHLORIDE 0.9% 1000 ML 1,000 ML 999 ML IV (01:28)
--- NOTE | 2024-03-15 03:08 | PC.NURSE ---
Dr. Conklin at the bedside.
--- NOTE | 2024-03-15 03:23 | PC.NURSE ---
Admitting resident at the bedside at this time.
[2024-03-15 03:45] LABS: Collection Type, Urine Catheter
--- NOTE | 2024-03-15 03:49 | PC.NURSE ---
ER MD Dr. Conklin and admitting resident Dr. Garcia both at the bedside - both aware of several lower blood pressure readings, state will order albumin for blood pressure support.
[2024-03-15] MEDS: ALBUMIN HUMAN 25% IVPB 25 GM/100 ML BTL IV ×2 (03:56→06:32)
[2024-03-15 04:09] LABS: Bacteria,Urine Rare; Bilirubin,Urine Negative (Negative); Blood,Urine 1+ (Negative); Clarity,Urine Clear (Clear/Hazy); Color,Urine Yellow (Lt Yel-Yel); Glucose, Urine Negative (Negative); Ketones,Urine Negative (Negative); Leukocyte Esterase,Urine Positive (Negative); Nitrite,Urine Negative (Negative); PH,Urine 5.5 (5.0-7.0); Protein,Urine Negative (Neg - Trace); RBC,Urine 1 /hpf (0-3); Specific Gravity,Urine 1.016 (1.001-1.035); Squamous Epithelial Cell,Urine 2 /hpf (0-5); Urobilinogen,Urine Negative mg/dL (0.0-1.0); WBC,Urine 3 /hpf (0-5)
[2024-03-15 04:33] LABS: Amphetamine/Methamp Scrn,U Negative (Negative); Barbiturate Screen,Urine Negative (Negative); Benzodiazepines Screen,Urine Negative (Negative); Benzoylecgonine Screen, Ur Negative (Negative); Fentanyl Screen,Urine Negative (Negative); Opiate Screen,Urine Negative (Negative); THC Screen,Urine Negative (Negative)
[2024-03-15] MEDS: ACETAMIN/CAFF/BUTAL (Fioricet) 1 TAB PO (04:38)
--- NOTE | 2024-03-15 06:06 | ESHP_ITS ---
<Statement entered by Torin Beasley MD - 03/15/24 13:28> I have discussed and was present for the essential components of the history, physical examination, diagnosis, and treatment plan with the resident. I agree with the patient's care as documented by the resident and amended herein by me. Torin Beasley MD FACP. Documentation for date of: 03/15/24 HPI History of Present Illness Chief complaint: Hypotensive History of present illness: Patient is a 53-year-old female with past medical history of recurrent admissions related to ESLD secondary to alcoholic liver cirrhosis, hepatic encephalopathy, esophageal varices status post banding, and type 2 diabetes mellitus who presented to the ED on 03/15/2024 with complaint of lethargy, weakness, and nausea starting today. Per mother at bedside patient's BP was 88/47 at home prompting her to go into the ED. Patient's mother reports patient had 1 episode of vomiting food contents today, no blood in vomit. Patient is currently complaining of a headache which has been present for 5 days. Denies any blood in stool. Last bowel movement was 2 days ago, they are usually dark but there has been no change in color or caliber. Patient reports that she has been compliant with all her medications, including midodrine and lactulose. Patient had an appointment to see GI specialist today but did not go due to feeling unwell. Patient at baseline is a max assist and is bedbound. She uses a bedside commode at home. She is cared for by her mother and other family members. Patient was scheduled for GI appointment with Dr. Jose Garner in [place] but cancelled because she was not feeling well. Patient's appointment was rescheduled for 06/28/2024, which was the next available appointment. Patient follows at [facility] for primary care. Patient reports she has been sober for about 11 months now. ED Course: -Initial vitals were BP 103/66, HR 50, RR 19, Temp 98.3, O2 99% on room air -Labs significant for chronic macrocytic anemia with actually improved Hgb 10.8, chronic thrombocytopenia of 40k, baseline creatinine 1.0, Tbili 5.4, ammonia 99 however the patient is A&Ox3 and mentating at baseline -In the ED, patient was given 2L NS IV bolus, advised ED to give 25 gm albumin -Patient was admitted for hypotension secondary to decompensated alcohol-related liver cirrhosis Review of Systems Review of systems otherwise negative except what is mentioned above. Past Medical History Past Medical History NEUROLOGIC: Positive Neurological Disorders, Migraine and Spinal Cord Injury; Negative Seizures CARDIAC: Positive Hypotension; Negative Cardiac Disorders or Congestive Heart Failure RESPIRATORY: Negative Chronic Obstructive Pulmonary Disease (COPD) or Asthma GASTROINTESTINAL: Positive Gastrointestinal Disorders, Cirrhosis, Gastrointestinal Bleed and Esophageal Varices GENITOURINARY: Negative Renal Disease REPRODUCTIVE: Positive Endometriosis and Previous Pregnancies MUSCULOSKELETAL: Positive Musculoskeletal Disorders ENDOCRINE: Positive Endocrine Disorders and Diabetes Mellitus Type 2; Negative Diabetes Mellitus Type 1 HEMATOLOGIC: Positive Blood Disorders and Anemia; Negative Sickle Cell Disease PSYCHO/SOCIAL: Positive Depression and Anxiety OTHER HISTORY: Positive Blood Transfusions; Negative Autoimmune Disease, Blood Transfusion Reaction, Anesthesia Reactions or Cancer Family History FAMILY HISTORY: Positive Family Psychiatric Problems and Family Cancer; Negative Family Respiratory Disorders, Family Cardiac Disorders, Family Gastrointestinal Problems, Family Surgery or Family Anesthesia Reaction Surgical History SURGICAL: Positive Section Social History SMOKING STATUS: Never smoker SECOND HAND EXPOSURE: No SUBSTANCE USE: marijuana Exam Vital Signs Temp Pulse Resp BP Pulse Ox O2 Del Method 98.5 F 58 L 14 89/62 L 94 L Room Air 03/15/24 05:44 03/15/24 05:44 03/15/24 05:44 03/15/24 05:44 03/15/24 05:44 03/15/24 05:44 Narrative Exam Physical Exam General: Awake and in mild distress. Slow speech pattern, appears chronically ill. HEENT: Normocephalic, atraumatic, mucous membranes moist. Mild scleral icterus. Heart: Regular rate and rhythm, no murmurs. Lungs: Clear to auscultation with no wheezing or crackles. Abdomen: Obese, soft, nondistended, nontender, positive bowel sounds. ?No guarding or rebound tenderness. Neurologic: Alert and oriented x3, no gross neurological deficit, and patient able to move all 4 extremities. Extremities: No edema. Skin: No rash or ecchymoses. Slightly jaundiced skin. Results: Labs 03/15/24 06:27 03/15/24 06:27 Labs: Short CBC 03/14/24 Range/Units 20:45 WBC 4.4 (3.6-11.0) Thou/mm3 Hgb 10.8 L (12.0-16.0) g/dL Hct 32.3 L (36.0-46.0) % Plt Count 40 L (140-440) Thou/mm3 BMP 03/14/24 20:45 Sodium 139 Potassium 4.3 Chloride 102 Carbon Dioxide 29.7 BUN 10 Creatinine 1.0 Glucose 186 H Calcium 8.8 Cardiac Enzymes 03/14/24 Range/Units 20:45 Troponin I < 0.020 (0.0-0.045) ng/mL Liver Function 03/14/24 Range/Units 20:45 Total Bilirubin 5.4 H (0.3-1.2) mg/dL AST 34 (0-34) U/L ALT 13 (10-49) U/L Alkaline Phosphatase 150 H (46-116) U/L Albumin 2.9 L (3.5-5.0) gm/dL Urine 03/15/24 Range/Units 03:20 Urine Color Yellow (Lt Yel-Yel) Urine Clarity Clear (Clear/Hazy) Urine pH 5.5 (5.0-7.0) Ur Specific [place] 1.016 (1.001-1.035) Urine Protein Negative (Neg - Trace) Urine Glucose (UA) Negative (Negative) Quality Measures Quality Measures none Medications Home Medications and Allergies Home Medications ?Medication ?Instructions ?Recorded ?Confirmed ?Type tramadol 50 mg tablet 50 mg PO Q4HR PRN Pain 10/1902/06/24 History midodrine 10 mg tablet 10 mg PO TID 01/12/24 History rifaximin 550 mg tablet (Xifaxan) 550 mg PO BID 02/06/24 History ferrous sulfate 325 mg (65 mg 325 mg PO DAILY 01/22/24 02/06/24 History iron) tablet ergocalciferol (vitamin D2) 1,250 1,250 mcg PO QWEEK 1 04/08/23 02/06/24 History mcg (50,000 unit) capsule (Vitamin D2) hydrocodone 5 mg-acetaminophen 325 1 tab PO TID PRN Mo uth Pain 02/06/24 02/06/24 History mg tablet hydrocortisone acetate 25 mg 25 mg UT QDAY 02/06/24 History rectal suppository (Anucort-HC) lidocaine HCl 2 % mucosal solution 5 ml PO 6 TIMES ADELA LY PRN Pain 02/06/24 02/06/24 History (Lidocaine Viscous) methocarbamol 750 mg tablet 750 mg PO BID 02/06/24 History mupirocin 2 % topical ointment 1 applic topical BID UT N Mouth Pain 02/06/24 02/06/24 History Allergies Allergy/AdvReac Type Severity Reaction Status Date / Time latex Allergy Severe Hives Verified 03/14/24 19:18 Visit Medications Albumin Human (Albuminar-25 Ivpb) 25 gm in 100 mls @ 100 mls/hr IV X1 ONE Stop: 03/15/24 06:55 Lactulose (Lactulose Syrup 20 Gm/30 Ml Udc) 30 gm PO TID CELINA; Protocol Stop: 04/14/24 06:14 Oxycodone HCl (Oxycodone Hcl 5 Mg Ir Tab) 5 mg PO Q6HR PRN PRN Reason: PAIN SCALE 4-10(Mod-Sev Stop: 03/20/24 06:01 Discontinued Medications Acetaminophen/Butalbital/Caffeine (Acetamin/Caff/Butal (Fioricet) 1 Tab) 1 tab PO X1 ONE Stop: 03/15/24 03:58 Last Admin: 03/15/24 04:38 Dose: 1 tab Sodium Chloride (Ns) 1,000 mls @ 999 mls/hr IV .Q1H1M ONE Stop: 03/15/24 00:00 Last Infusion: 03/15/24 00:16 Dose: Infused Sodium Chloride (Ns) 1,000 mls @ 999 mls/hr IV .Q1H1M ONE Stop: 03/15/24 02:22 Last Infusion: 03/15/24 02:29 Dose: Infused Albumin Human (Albuminar-25 Ivpb) 25 gm in 100 mls @ 100 mls/hr IV NOW ONE Stop: 03/15/24 04:49 Last Infusion: 03/15/24 04:56 Dose: Infused Assessment & Plan Plan 53-year-old female with past medical history of recurrent admissions related to ESLD secondary to alcoholic liver cirrhosis, hepatic encephalopathy, esophageal varices status post banding, and type 2 diabetes mellitus who presented to the ED on 03/15/2024 with complaint of lethargy, weakness, and nausea starting today. #Hypotension, secondary to #Decompensated alcohol-related liver cirrhosis Patient came with primary concern of hypotension per mother who stated at home reading was 88/47. Patient reports compliance with midodrine 10 mg TID. On initial evaluation for admission patient BP improved to 99/58 after 2L fluids. Patient was also sat up with assistance and BP increased. Advised ED to give albumin, patient got 25 gm and BP still dropped to 80s/50s, MAP ranging 65-70. Therefore patient was admitted for further management of hypotension. Patient currently not appearing septic, no evidence of GI bleed. Likely chronic secondary to decompensated cirrhosis. Will give more albumin, resume home midodrine. Patient has abstained from alcohol about 11 months. She needs to follow up with GI/liver specialist. -Ordered albumin 25 gm x1 and resassess BP -Continue home midodrine 10 mg TID -Careful fluid administration due to ESLD -Patient should ensure not to miss her GI appointment on 06/28/2024 #Elevated ammonia #Hyperbilirubinemia #History of hepatic encephalopathy On admission ammonia is 99 however the patient is awake, alert, and oriented x3 and mentating at her baseline. And past ammonia levels have been >100. -Continue home lactulose 30 gm TID -Continue home rifaximin 550 mg BID #Headache #Chronic back and neck pain due to bedbound status Gave patient x1 Fioricet, patient reported good relief of headache. -Limit acetaminophen-containing medications due to ESLD -Oxycodone IR 5 mg q6h as needed for moderate to severe pain #Thrombocytopenia #Coagulopathy #History of GI bleed #History of esophageal varices s/p banding On admission Hgb is 10.8 and patient has no bloody vomiting or hematochezia or melena in the past few weeks. -Continue home pantoprazole 40 mg qday -Avoiding anticoagulation and chemical prophylaxis DVT prophylaxis: SCDs GI prophylaxis: Pantoprazole 40 mg IV daily Diet: Low sodium 2g Liz: None Lines: Peripheral IV Antibiotics: None CODE STATUS: FULL Reason for hospitalization: Hypotension secondary to decompensated alcohol related liver cirrhosis Patient plan of care was discussed with the attending physician, Dr. Beasley. Jazmyn Garcia, PGY-2
[2024-03-15] MEDS: LACTULOSE SYRUP 20 GM/30 ML UDC 30 GM PO ×3 (06:31→21:03)
[2024-03-15 06:44] LABS: Basophils % (Auto) 1 % (0-2.5); Eosinophils # (Auto) 0.1 Thou/mm3 (0.0-0.5); Eosinophils % (Auto) 3 % (0-10); Hemoglobin 9.8 g/dL (12.0-16.0); Immature Granulocytes % (Auto) 0 % (0-0); Immature Granulocytes Auto 0.01 Thou/mm3 (0.00-0.00); Lymphocytes % (Auto) 33 % (10-50); Mean Corpuscular HGB Conc 32.7 g/dl (31.0-37.0); Mean Corpuscular Hemoglobin 35.3 pg (25.0-35.0); Mean Corpuscular Volume 108 fL (80-100); Monocytes # (Auto) 0.2 Thou/mm3 (0.0-0.8); Monocytes % (Auto) 7 % (0-12); Neutrophils # (Auto) 1.7 Thou/mm3 (1.8-7.7); Neutrophils % (Auto) 56 % (37-80); Nucleated Red Blood Cell % 0 /100 WBC (0); RDW Standard Deviation 67.7 fL (36.4-46.3); Red Blood Count 2.78 Miln/mm3 (4.00-5.20)
--- NOTE | 2024-03-15 06:59 | PC.NURSE ---
Dr. Huerta at the bedside at this time.
[2024-03-15 07:20] LABS: Platelet Count 33 Thou/mm3 (140-440)
--- NOTE | 2024-03-15 07:25 | PC.NURSE ---
report received and care assumes. Hospitalist in to see pt. Pt here with c/o abd pain with n/v and to be admitted to telemetry
[2024-03-15 07:28] LABS: Alanine Aminotransferase 13 U/L (10-49); Albumin, Serum 2.9 gm/dL (3.5-5.0); Albumin/Globulin Ratio 0.9 (1.2-2.2); Alkaline Phosphatase 110 U/L (46-116); Anion Gap 7 (7-16); Aspartate Amino Transferase 28 U/L (0-34); BUN/Creatinine Ratio 15 Ratio (12-20); Bilirubin,Total 5.6 mg/dL (0.3-1.2); Blood Urea Nitrogen 12 mg/dL (9-23); Calcium 8.8 mg/dL (8.3-10.6); Calcium (Corrected) 9.7 mg/dL (8.5-10.1); Carbon Dioxide 29.1 mMol/L (20.0-31.0); Chloride 104 mMol/L (98-107); Creatinine (Component) 0.8 mg/dL (0.6-1.3); Globulin 3.4 gm/dL (2.3-3.5); Glucose 103 mg/dL (74-106); Magnesium 1.7 mg/dL (1.6-2.6); Osmolality,Calculated 279 (275-295); Potassium 4.8 mMol/L (3.4-5.1); Sodium 140 mMol/L (136-145); Total Protein 6.3 gm/dL (5.7-8.2); eGFR > 60 See Note
[2024-03-15] MEDS: MIDODRINE 5 MG TABLET 10 MG PO ×3 (07:47→21:01)
[2024-03-15] MEDS: oxyCODONE HCL 5 MG IR TAB PO ×2 (07:47→20:58)
--- NOTE | 2024-03-15 08:33 | XR_ITS ---
Examination: CT brain head without contrast. 2-D sagittal coronal reconstructions Date and time of exam:March 15, 2024 0914 hours INDICATIONS: Patient fell today with injury to the head, followed by head pain lethargy CTDI: vol (mGy):50.4 DLP: (mGycm):990 Technique: Multiple CT axial sections of the brain have been obtained, 5 mm slice thickness. Contrast has not been administered. 2-D sagittal, coronal reconstructions have been obtained Low dose protocols were performed. One or more of the following dose reduction techniques were used; automated exposure control, adjustment of the mA and/or KV according to patient size, use of iterative reconstruction technique. Findings: No significant ventricular enlargement. Intra-axial or extra-axial hemorrhage density is not seen. No mass effect or midline shift Basal cisterns are not remarkable. Fourth ventricle is midline. Cranial vault intact. Impression: Negative for acute hemorrhage, mass effect or midline shift
[2024-03-15 08:50] LABS: Slide Review Platelets confirmed
--- NOTE | 2024-03-15 09:59 | PC.NURSE ---
hospitalist in to talk with pt. Pt requesting more for pain and hospitalist telling pt won't order anything more now.
[2024-03-15 10:16] LABS: Prothrombin Time 21.3 Seconds (9.0-12.2)
--- NOTE | 2024-03-15 11:10 | XR_ITS ---
Examination: Abdomen sonogram, Limited Date and time of exam: March 15, 2024 1208 hours INDICATIONS: Mid abdominal pain 2 years worse today Technique: Real-time sifuentes scale transabdominal sonographic images of the upper abdomen obtained. Findings: No ascites IMPRESSION: No ascites
[2024-03-15] MEDS: PANTOPRAZOLE INJ 40 MG VIAL IV (11:28)
[2024-03-15] MEDS: rifaximin 550 MG TABLET PO ×2 (11:28→20:58)
[2024-03-15] MEDS: cefTRIAXone/D5w 1gm IV premix 50 ML IV (11:30)
[2024-03-15] MEDS: INSULIN LISPRO (AdmeLOG) 1 UNIT/0.01 ML UNIT SC ×2 (11:46→17:55)
--- NOTE | 2024-03-15 12:50 | PD.RESPRO ---
Documentation for date of: 03/15/24 Senior resident attestation: The patient is a 53-year-old female past medical history of decompensated cirrhosis, hepatic encephalopathy, esophageal varices status post banding and type 2 diabetes mellitus here. The ER pulmonary lethargic weakness confusion, nausea. Also noted hypertension on initial vitals in the setting of end-stage liver disease. Of note patient had upcoming appointment with netsuite developer when she was unable to keep up by coming to the ER. #Decompensated cirrhosis #Hepatic encephalopathy #Hypotension #Hyperammonemia #Hyperbilirubinemia #Thrombocytopenia Patient evaluated and examined at the bedside, plan of care discussed with rest of the team including my attending physician, except as noted. Quresh PGY2 Subjective Subjective Interval history: Patient seen today at the bedside in the ED found awake, alert, oriented x 3. No overnight events reported. States some abdominal pain in the epigastric region. Vital signs at this time show some hypotension rest of the vitals within normal limits. Patient's last bowel movement was about 3 to 4 days ago. Patient currently on midodrine 10 mg 3 times daily. Patient on home lactulose dose of 30 mg 3 times daily, started patient on ceftriaxone for SBP prophylaxis. Patient is complaining of abdominal distention abdominal ultrasound was ordered to assess for any ascitic fluid. Exam Vital Signs Temp Pulse Resp BP Pulse Ox O2 Del Method 98.0 F 58 L 17 97/57 L 96 Room Air 03/15/24 12:40 03/15/24 12:40 03/15/24 12:40 03/15/24 12:40 03/15/24 12:40 03/15/24 12:40 Narrative Exam Physical Exam GENERAL: NAD, AAOx3, jaundice, obese HEENT: Moist mucosa. Eyes open, symmetrical, scleral icterus CARDIO: Heart RRR, no obvious murmurs PULM: No noted coughing/dyspnea CTA B/L, no R/W/R GI: Abdomen soft, distended, some pain on palpation epigastric region. BSx4 SKIN/MSK/EXT: No wounds/rashes/edema/amputations, no pain on palpation. Pedal pulses present B/L NEURO: AAOx3, no focal neuro deficits, able to move all 4 extremities Objective Labs 03/16/24 04:46 03/15/24 06:27 Labs: Laboratory Results - last 24 hr 03/14/24 03/15/24 03/15/24 20:45 03:20 06:27 WBC 4.4 3.0 L RBC 3.02 L 2.78 L Hgb 10.8 L 9.8 L Hct 32.3 L 30.0 L MCV 107 H 108 H MCH 35.8 H 35.3 H MCHC 33.4 32.7 RDW Std Deviation 69.4 H 67.7 H Plt Count 40 L 33 L Neut % (Auto) 58 56 Lymph % (Auto) 27 33 [place] % (Auto) 10 7 Eos % (Auto) 5 3 Baso % (Auto) 1 1 Neut # (Auto) 2.5 1.7 L Lymph # (Auto) 1.2 1.0 [place] # (Auto) 0.4 0.2 Eos # (Auto) 0.2 0.1 Baso # (Auto) 0.0 0.0 Immature Gran # (Auto) 0.02 H 0.01 H Absolute Nucleated RBC 0.00 0.00 Immature Gran % 1 H 0 Nucleated RBC % 0 0 PT 21.3 H INR 2.0 H Sodium 139 140 Potassium 4.3 4.8 D Chloride 102 104 Carbon Dioxide 29.7 29.1 Anion Gap 7 7 BUN 10 12 Creatinine 1.0 0.8 Estim Creat Clear Calc 55.2 L 69.0 eGFR > 60 > 60 BUN/Creatinine Ratio 10 L 15 Glucose 186 H 103 D Calculated Osmolality 281 279 Calcium 8.8 8.8 Corrected Calcium 9.7 9.7 Phosphorus 3.0 Magnesium 1.7 Total Bilirubin 5.4 H 5.6 H AST 34 28 ALT 13 13 Alkaline Phosphatase 150 H 110 D Ammonia 99 H* Troponin I < 0.020 B-Natriuretic Peptide 304 H Total Protein 6.6 6.3 Albumin 2.9 L 2.9 L Globulin 3.7 H 3.4 Albumin/Globulin Ratio 0.8 L 0.9 L Lipase 33 Ur Collection Type Catheter Urine Color Yellow Urine Clarity Clear Urine pH 5.5 Ur Specific [place] 1.016 Urine Protein Negative Urine Glucose (UA) Negative Urine Ketones Negative Urine Blood 1+ A Urine Nitrite Negative Urine Bilirubin Negative Urine Urobilinogen (Auto) Negative Ur Leukocyte Esterase Positive Urine RBC 1 Urine WBC 3 Ur Squamous Epith Cells 2 Urine Bacteria Rare Urine Opiates Screen Negative Urine Fentanyl Screen Negative Ur Barbiturates Screen Negative U Amphetamin/Meth Scrn Negative U Benzodiazepines Scrn Negative U Cocaine Metab Screen Negative U Marijuana (THC) Screen Negative Ethyl Alcohol < 10.0 Misc Test Result Platelets confirmed Platelets confirmed Quality Measures Quality Measures none Assessment & Plan Assessment Current Active Medications: Generic Name Dose Route Start Last Admin Trade Name Freq PRN Reason Stop Dose Admin Dextrose 25 ml 03/15/24 06:10 Dextrose 50%-Water Inj 50 Ml Syringe IV 04/14/24 06:09 Q15MIN PRN BG 50-70 responsive npo pt Dextrose 50 ml 03/15/24 06:10 Dextrose 50%-Water Inj 50 Ml Syringe IV 04/14/24 06:09 Q15MIN PRN BG <50 OR BG <70 & pt unresponsive Glucagon 1 mg 03/15/24 06:10 Glucagon Inj 1 Mg Vial IM Q15MIN PRN BG <70, and no IV access Ceftriaxone Sodium/Dextrose 50 mls @ 100 mls/hr 03/15/24 11:10 03/15/24 11:30 Rocephin/D5w 1gm Iv Premix IV 03/22/24 11:09 100 mls/hr QDAY CELINA Administration Insulin Human Lispro 0 unit 03/15/24 07:30 03/15/24 11:46 Insulin Lispro (Admelog) 1 Unit/0.01 Ml Unit SC 04/14/24 07:29 2 unit AC CELINA Administration Protocol Lactulose 30 gm 03/15/24 06:15 03/15/24 06:31 Lactulose Syrup 20 Gm/30 Ml Udc PO 04/14/24 06:14 30 gm TID CELINA Administration Protocol Midodrine 10 mg 03/15/24 06:45 03/15/24 07:47 Midodrine 5 Mg Tablet PO 04/14/24 06:44 10 mg TID CELINA Administration Ondansetron HCl 4 mg 03/15/24 06:08 Ondansetron Inj 2 Mg/Ml Inj 2 Ml IV 04/14/24 06:07 Q8HR PRN NAUSEA OR VOMITING Protocol Oxycodone HCl 5 mg 03/15/24 06:02 03/15/24 07:47 Oxycodone Hcl 5 Mg Ir Tab PO 03/20/24 06:01 5 mg Q6HR PRN Administration PAIN SCALE 4-10(Mod-Sev Pantoprazole Sodium 40 mg 03/15/24 09:00 03/15/24 11:28 Pantoprazole Inj 40 Mg Vial IV 04/14/24 08:59 40 mg QDAY CELINA Administration Rifaximin 550 mg 03/15/24 09:00 03/15/24 11:28 Rifaximin 550 Mg Tablet PO 03/22/24 08:59 550 mg BID CELINA Administration Plan 53-year-old female with past medical history of recurrent admissions related to ESLD secondary to alcoholic liver cirrhosis, hepatic encephalopathy, esophageal varices status post banding, and type 2 diabetes mellitus who presented to the ED on 03/15/2024 with complaint of lethargy, weakness, and nausea starting today. Admitted for hypotension secondary to decompensated alcoholic liver cirrhosis. #Hepatic encephalopathy #Hypotension #Likely secondary to decompensated alcoholic liver cirrhosis #Elevated ammonia #Hyperbilirubinemia #Thrombocytopenia #Coagulopathy Patient was hypotensive per mother who stated at home reading was 88/47. Patient reports compliance with midodrine 10 mg TID. On initial evaluation for admission patient BP improved to 99/58 after 2L fluids. In the ED patient got 25 gm and BP still dropped to 80s/50s, MAP ranging 65-70. Patient currently not appearing septic, no evidence of GI bleed Likely chronic secondary to decompensated cirrhosis. Patient currently at her baseline mental status she is AAOx3 Hemoglobin on admission was 10.8 patient has no evidence of vomiting blood hematochezia or melena in the past few weeks Last bowel movement 3 to 4 days ago likely cause of hepatic encephalopathy ? On midodrine 10 mg 3 times daily ? On lactulose 30 g 3 times daily ? On home rifaximin 550 mg twice daily ? On ceftriaxone for SBP prophylaxis ? Abdominal ultrasound ordered to evaluate for ascites ? Continue home pantoprazole 40 mg daily #Headache, resolved #Chronic back and neck pain due to bedbound status Gave patient x1 Fioricet, patient reported good relief of headache. -Limit acetaminophen-containing medications due to ESLD -Oxycodone IR 5 mg q6h as needed for moderate to severe pain Case discussed with my senior Dr. Stephens PGY-[address] Corbin Luna MD PGY-1 Disposition: Med telemetry observation Fluids: None Feeding: Low-sodium diet Thrombo prophylaxis: SCDs Gastric Ulcer prophylaxis: Pantoprazole CODE STATUS: Full code Attending Provider Attestation/Addendum Shaila Slade DO, attest that I was physically present for the son portions of the service and evaluated the patient with the resident and I reviewed and discussed the case with the resident and agree with the resident's findings and plans of care as documented above Patient seen and evaluated this AM. She complains of RUQ abdominal pain that feels like cramping. She states that she has been taking her medications as instructed, but had not had a bowel movement for a few days. She does not remember how she ended up in the hospital, but has been sleeping for the past few days. She reports resolution of her headache. US of abdomen does not show any evidence of ascites. Abdomen is soft and mildly tender to palpation. Will start on rocephin for SBP prophylaxis, but suspicion is low. Patient denies fever, chills, nausea or vomiting. Will continue with lactulose. Will order PT as patient reports generalized weakness. She denies any hematochezia or melena. Continue with home midodrine dose due to hypotension.
[2024-03-15] MEDS: DICYCLOMINE 10 MG CAPSULE PO (22:40)
[2024-03-16] VITALS (9 sets, daily range): BP systolic 97–107; BP diastolic 51–66; PULSE 50–60; RESP 16–19; TEMP 36.2–37.3; O2SAT 97–100
[2024-03-16] MEDS: hydrOXYzine HCL 25 MG TABLET PO ×2 (04:31→17:49)
[2024-03-16 05:21] LABS: Basophils % (Auto) 1 % (0-2.5); Eosinophils # (Auto) 0.2 Thou/mm3 (0.0-0.5); Eosinophils % (Auto) 4 % (0-10); Hematocrit 31.8 % (36.0-46.0); Hemoglobin 10.6 g/dL (12.0-16.0); Immature Granulocytes % (Auto) 0 % (0-0); Immature Granulocytes Auto 0.01 Thou/mm3 (0.00-0.00); Lymphocytes # (Auto) 1.2 Thou/mm3 (1.0-4.8); Lymphocytes % (Auto) 26 % (10-50); Mean Corpuscular HGB Conc 33.3 g/dl (31.0-37.0); Mean Corpuscular Hemoglobin 35.9 pg (25.0-35.0); Mean Corpuscular Volume 108 fL (80-100); Monocytes # (Auto) 0.4 Thou/mm3 (0.0-0.8); Monocytes % (Auto) 8 % (0-12); Neutrophils # (Auto) 2.9 Thou/mm3 (1.8-7.7); Neutrophils % (Auto) 61 % (37-80); Nucleated Red Blood Cell % 0 /100 WBC (0); RDW Standard Deviation 69.1 fL (36.4-46.3); Red Blood Count 2.95 Miln/mm3 (4.00-5.20); White Blood Count 4.7 Thou/mm3 (3.6-11.0)
[2024-03-16] MEDS: LACTULOSE SYRUP 20 GM/30 ML UDC 30 GM PO ×2 (05:33→21:29)
[2024-03-16] MEDS: MIDODRINE 5 MG TABLET 10 MG PO ×3 (05:33→21:29)
[2024-03-16 05:35] LABS: Platelet Count 40 Thou/mm3 (140-440)
[2024-03-16] MEDS: oxyCODONE HCL 5 MG IR TAB PO ×2 (05:36→14:16)
[2024-03-16 05:46] LABS: Slide Review Platelets confirmed
[2024-03-16 05:50] LABS: Alanine Aminotransferase 15 U/L (10-49); Albumin, Serum 3.1 gm/dL (3.5-5.0); Albumin/Globulin Ratio 0.9 (1.2-2.2); Alkaline Phosphatase 100 U/L (46-116); Anion Gap 9 (7-16); Aspartate Amino Transferase 43 U/L (0-34); BUN/Creatinine Ratio 14 Ratio (12-20); Bilirubin,Total 6.1 mg/dL (0.3-1.2); Blood Urea Nitrogen 11 mg/dL (9-23); Calcium 9.5 mg/dL (8.3-10.6); Calcium (Corrected) 10.2 mg/dL (8.5-10.1); Carbon Dioxide 24.5 mMol/L (20.0-31.0); Chloride 107 mMol/L (98-107); Creatinine (Component) 0.8 mg/dL (0.6-1.3); Globulin 3.5 gm/dL (2.3-3.5); Glucose 151 mg/dL (74-106); Osmolality,Calculated 281 (275-295); Potassium 4.8 mMol/L (3.4-5.1); Sodium 140 mMol/L (136-145); Total Protein 6.6 gm/dL (5.7-8.2); eGFR > 60 See Note
[2024-03-16] MEDS: CHOLESTYRAMINE/SUCROSE 1 PKT EA PO (08:27)
[2024-03-16] MEDS: cefTRIAXone/D5w 1gm IV premix 50 ML IV (08:27)
[2024-03-16] MEDS: rifaximin 550 MG TABLET PO ×2 (08:28→21:30)
[2024-03-16] MEDS: PANTOPRAZOLE INJ 40 MG VIAL IV (08:28)
--- NOTE | 2024-03-16 10:30 | CHAP ---
Patient was visited by he Spiritual Care Volunteer who prayed for them. (Volunteer was in the hospital from-9:00-10:30)
--- NOTE | 2024-03-16 11:51 | PC.PT ---
PT eval only. Patient is at her PLOF.
--- NOTE | 2024-03-16 14:58 | PD.RESPRO ---
Documentation for date of: 03/16/24 Senior resident attestation: The patient is a 53-year-old female past medical history of decompensated cirrhosis, hepatic encephalopathy, esophageal varices status post banding and type 2 diabetes mellitus here. The ER pulmonary lethargic weakness confusion, nausea. Also noted hypertension on initial vitals in the setting of end-stage liver disease. Of note patient had upcoming appointment with it associate when she was unable to keep up by coming to the ER. #Decompensated cirrhosis #Hepatic encephalopathy #Hypotension #Hyperammonemia #Hyperbilirubinemia #Thrombocytopenia Patient evaluated and examined at the bedside, plan of care discussed with rest of the team including my attending physician, except as noted. Quresh PGY2 Subjective Subjective Interval history: Patient seen today at the bedside fine awake, alert, oriented x 3. No overnight events reported. Vital signs stable at this time. Patient still complaining of abdominal pain.Bentyl and simethicone addedwill continue to monitor at this time. Possible discharge in the next 24 to 48 hours. Exam Vital Signs Temp Pulse Resp BP Pulse Ox O2 Del Method 97.2 F 55 L 17 101/51 L 98 Room Air 03/16/24 12:00 03/16/24 14:11 03/16/24 12:00 03/16/24 14:11 03/16/24 12:00 03/16/24 12:00 Narrative Exam Physical Exam GENERAL: NAD, AAOx3, jaundice, obese HEENT: Moist mucosa. Eyes open, symmetrical, scleral icterus CARDIO: Heart RRR, no obvious murmurs PULM: No noted coughing/dyspnea CTA B/L, no R/W/R GI: Abdomen soft, distended, some pain on palpation epigastric region. BSx4 SKIN/MSK/EXT: No wounds/rashes/edema/amputations, no pain on palpation. Pedal pulses present B/L NEURO: AAOx3, no focal neuro deficits, able to move all 4 extremities Objective Labs 03/16/24 04:46 03/16/24 04:46 Labs: Laboratory Results - last 24 hr 03/16/24 04:46 WBC 4.7 D RBC 2.95 L Hgb 10.6 L Hct 31.8 L MCV 108 H MCH 35.9 H MCHC 33.3 RDW Std Deviation 69.1 H Plt Count 40 L D Neut % (Auto) 61 Lymph % (Auto) 26 Powell % (Auto) 8 Eos % (Auto) 4 Baso % (Auto) 1 Neut # (Auto) 2.9 Lymph # (Auto) 1.2 Powell # (Auto) 0.4 Eos # (Auto) 0.2 Baso # (Auto) 0.0 Immature Gran # (Auto) 0.01 H Absolute Nucleated RBC 0.00 Immature Gran % 0 Nucleated RBC % 0 Sodium 140 Potassium 4.8 Chloride 107 Carbon Dioxide 24.5 Anion Gap 9 BUN 11 Creatinine 0.8 Estim Creat Clear Calc 69.0 eGFR > 60 BUN/Creatinine Ratio 14 Glucose 151 H Calculated Osmolality 281 Calcium 9.5 Corrected Calcium 10.2 H Total Bilirubin 6.1 H D AST 43 H ALT 15 Alkaline Phosphatase 100 Total Protein 6.6 Albumin 3.1 L Globulin 3.5 Albumin/Globulin Ratio 0.9 L Misc Test Result Platelets confirmed Quality Measures Quality Measures none Assessment & Plan Assessment Current Active Medications: Generic Name Dose Route Start Last Admin Trade Name Freq PRN Reason Stop Dose Admin Cholestyramine Resin 1 pkt 03/16/24 09:00 03/16/24 08:27 Cholestyramine/Sucrose 1 Pkt Ea PO 04/15/24 08:59 1 pkt QDAY CELINA Administration Dextrose 25 ml 03/15/24 06:10 Dextrose 50%-Water Inj 50 Ml Syringe IV 04/14/24 06:09 Q15MIN PRN BG 50-70 responsive npo pt Dextrose 50 ml 03/15/24 06:10 Dextrose 50%-Water Inj 50 Ml Syringe IV 04/14/24 06:09 Q15MIN PRN BG <50 OR BG <70 & pt unresponsive Dicyclomine HCl 10 mg 03/15/24 17:08 03/15/24 22:40 Dicyclomine 10 Mg Capsule PO 04/14/24 17:07 10 mg QID PRN Administration CRAMPS Glucagon 1 mg 03/15/24 06:10 Glucagon Inj 1 Mg Vial IM Q15MIN PRN BG <70, and no IV access Ceftriaxone Sodium/Dextrose 50 mls @ 100 mls/hr 03/15/24 11:10 03/16/24 08:27 Rocephin/D5w 1gm Iv Premix IV 03/22/24 11:09 100 mls/hr QDAY CELINA Administration Insulin Human Lispro 0 unit 03/15/24 07:30 03/16/24 11:53 Insulin Lispro (Admelog) 1 Unit/0.01 Ml Unit SC 04/14/24 07:29 Not Given AC CELINA Protocol Lactulose 30 gm 03/15/24 06:15 03/16/24 14:10 Lactulose Syrup 20 Gm/30 Ml Udc PO 04/14/24 06:14 Not Given TID [facility] Protocol Midodrine 10 mg 03/15/24 06:45 03/16/24 14:11 Midodrine 5 Mg Tablet PO 04/14/24 06:44 10 mg TID CELINA Administration Ondansetron HCl 4 mg 03/15/24 06:08 Ondansetron Inj 2 Mg/Ml Inj 2 Ml IV 04/14/24 06:07 Q8HR PRN NAUSEA OR VOMITING Protocol Oxycodone HCl 5 mg 03/15/24 06:02 03/16/24 14:16 Oxycodone Hcl 5 Mg Ir Tab PO 03/20/24 06:01 5 mg Q6HR PRN Administration PAIN SCALE 4-10(Mod-Sev Pantoprazole Sodium 40 mg 03/15/24 09:00 03/16/24 08:28 Pantoprazole Inj 40 Mg Vial IV 04/14/24 08:59 40 mg QDAY CELINA Administration Rifaximin 550 mg 03/15/24 09:00 03/16/24 08:28 Rifaximin 550 Mg Tablet PO 03/22/24 08:59 550 mg BID CELINA Administration Simethicone 80 mg 03/16/24 14:30 Simethicone 80 Mg Chew PO 04/15/24 14:29 QID CELINA Plan 53-year-old female with past medical history of recurrent admissions related to ESLD secondary to alcoholic liver cirrhosis, hepatic encephalopathy, esophageal varices status post banding, and type 2 diabetes mellitus who presented to the ED on 03/15/2024 with complaint of lethargy, weakness, and nausea starting today. Admitted for hypotension secondary to decompensated alcoholic liver cirrhosis. #Hepatic encephalopathy #Hypotension #Likely secondary to decompensated alcoholic liver cirrhosis #Elevated ammonia #Hyperbilirubinemia #Thrombocytopenia #Coagulopathy Patient was hypotensive per mother who stated at home reading was 88/47. Patient reports compliance with midodrine 10 mg TID. On initial evaluation for admission patient BP improved to 99/58 after 2L fluids. In the ED patient got 25 gm and BP still dropped to 80s/50s, MAP ranging 65-70. Patient currently not appearing septic, no evidence of GI bleed Likely chronic secondary to decompensated cirrhosis. Patient currently at her baseline mental status she is AAOx3 Hemoglobin on admission was 10.8 patient has no evidence of vomiting blood hematochezia or melena in the past few weeks Last bowel movement 3 to 4 days ago likely cause of hepatic encephalopathy Abdominal ultrasound negative for ascites ? On midodrine 10 mg 3 times daily ? On lactulose 30 g 3 times daily ? On home rifaximin 550 mg twice daily ? On ceftriaxone for SBP prophylaxis ? Continue home pantoprazole 40 mg daily #Headache, resolved #Chronic back and neck pain due to bedbound status Gave patient x1 Fioricet, patient reported good relief of headache. -Limit acetaminophen-containing medications due to ESLD -Oxycodone IR 5 mg q6h as needed for moderate to severe pain Case discussed with my senior Dr. Stephens PGY-[address] Corbin Luna MD PGY-1 Disposition: Med telemetry observation Fluids: None Feeding: Low-sodium diet Thrombo prophylaxis: SCDs Gastric Ulcer prophylaxis: Pantoprazole CODE STATUS: Full code Attending Provider Attestation/Addendum Shaila Slade, , attest that I was physically present for the son portions of the service and evaluated the patient with the resident and I reviewed and discussed the case with the resident and agree with the resident's findings and plans of care as documented above Patient seen and evaluated this AM. She reports having bloating and gas pain. Will start on simethicone. Patient states she is always fatigued and too weak to stand at home. Suspect that patient may have orthostatic hypotension as she is on lactulose TID and diuretics. Will continue with midodrine. Orthostatic vitals ordered, consider increasing midodrine if positive. Patient to work with physical therapy.
--- NOTE | 2024-03-16 15:15 | PC.SS ---
SS met with patient and mom regarding her d/c plan.? Pt is alert/oriented.? Pt was admitted for ESLD, Hypotension.? Pt confirmed demographic and contact information is correct on facesheet.? Pt resides with mom, ex , and kids.? Pt has commode, wheelchair, and 2 walkers (rollator and 2 wheel walker).? Pt requires assistance with ADLS.? Family helps care for pt at home.? Pt states she has had [facility] in the past and she requested to continue with them.? Pt named her mom, Gemma Knight medical decision maker if she is unable.? Patient?s choice is to return home upon d/c.? Pt states she last followed up with PCP Feb, 2024. D/C plan:? Return home Next of Kin:? Gemmadarcie Averyashley, mom, phone# [phone] PCP:? Dr. Stacy Graff? Address:? Correct on facesheet Home Health:? [facility]
[2024-03-16] MEDS: SIMETHICONE 80 MG CHEW PO ×2 (16:44→21:30)
[2024-03-16] MEDS: INSULIN LISPRO (AdmeLOG) 1 UNIT/0.01 ML UNIT SC (17:50)
[2024-03-17] VITALS (8 sets, daily range): BP systolic 97–110; BP diastolic 55–64; PULSE 52–60; RESP 18–19; TEMP 36.2–36.8; O2SAT 98–100
[2024-03-17] MEDS: MIDODRINE 5 MG TABLET 10 MG PO (05:30)
[2024-03-17] MEDS: SIMETHICONE 80 MG CHEW PO ×2 (05:30→12:19)
[2024-03-17] MEDS: LACTULOSE SYRUP 20 GM/30 ML UDC 30 GM PO (05:30)
[2024-03-17 06:11] LABS: Basophils % (Auto) 1 % (0-2.5); Eosinophils # (Auto) 0.2 Thou/mm3 (0.0-0.5); Eosinophils % (Auto) 5 % (0-10); Hematocrit 33.8 % (36.0-46.0); Hemoglobin 11.1 g/dL (12.0-16.0); Immature Granulocytes % (Auto) 0 % (0-0); Immature Granulocytes Auto 0.01 Thou/mm3 (0.00-0.00); Lymphocytes # (Auto) 1.6 Thou/mm3 (1.0-4.8); Lymphocytes % (Auto) 38 % (10-50); Mean Corpuscular HGB Conc 32.8 g/dl (31.0-37.0); Mean Corpuscular Hemoglobin 35.8 pg (25.0-35.0); Mean Corpuscular Volume 109 fL (80-100); Monocytes # (Auto) 0.3 Thou/mm3 (0.0-0.8); Monocytes % (Auto) 8 % (0-12); Neutrophils % (Auto) 49 % (37-80); Nucleated Red Blood Cell % 0 /100 WBC (0); RDW Standard Deviation 67.6 fL (36.4-46.3); White Blood Count 4.2 Thou/mm3 (3.6-11.0)
[2024-03-17 06:24] LABS: Platelet Count 38 Thou/mm3 (140-440)
[2024-03-17 06:25] LABS: Slide Review Platelets confirmed
[2024-03-17 06:41] LABS: Alanine Aminotransferase 12 U/L (10-49); Albumin/Globulin Ratio 0.8 (1.2-2.2); Alkaline Phosphatase 105 U/L (46-116); Anion Gap 8 (7-16); Aspartate Amino Transferase 32 U/L (0-34); BUN/Creatinine Ratio 9 Ratio (12-20); Bilirubin,Total 6.1 mg/dL (0.3-1.2); Blood Urea Nitrogen 8 mg/dL (9-23); Calcium 9.4 mg/dL (8.3-10.6); Calcium (Corrected) 10.2 mg/dL (8.5-10.1); Carbon Dioxide 23.2 mMol/L (20.0-31.0); Chloride 108 mMol/L (98-107); Creatinine (Component) 0.9 mg/dL (0.6-1.3); Estimated Creatinine Clearance 61.3 mL/min (>60); Globulin 3.8 gm/dL (2.3-3.5); Glucose 150 mg/dL (74-106); Osmolality,Calculated 278 (275-295); Potassium 4.4 mMol/L (3.4-5.1); Sodium 139 mMol/L (136-145); Total Protein 6.8 gm/dL (5.7-8.2); eGFR > 60 See Note
[2024-03-17] MEDS: rifaximin 550 MG TABLET PO (08:56)
[2024-03-17] MEDS: CHOLESTYRAMINE/SUCROSE 1 PKT EA PO (08:56)
[2024-03-17] MEDS: oxyCODONE HCL 5 MG IR TAB PO (08:56)
[2024-03-17] MEDS: PANTOPRAZOLE INJ 40 MG VIAL IV (08:56)
[2024-03-17] MEDS: cefTRIAXone/D5w 1gm IV premix 50 ML IV (08:57)
[2024-03-17] MEDS: INSULIN LISPRO (AdmeLOG) 1 UNIT/0.01 ML UNIT SC ×2 (08:57→12:19)
[2024-03-17 11:08] LABS: Bilirubin,Direct 2.4 mg/dL (0.0-0.3)
[2024-03-17] MEDS: DICYCLOMINE 10 MG CAPSULE PO (12:19)
--- NOTE | 2024-03-17 14:27 | PD.RESDS ---
Planned Discharge Date 03/17/24 DS: Providers Provider Date of admission: 03/15/24 05:55 Primary care physician: LETI Catherine Admitting Provider: Torin Beasley MD Attending Provider on Admission: Torin Beasley MD Consults: 03/15/24 11:11 Referral Physical Therapy Stat Comment: Physician Instructions: Attending Provider on DC: Candi Osuna MD Discharging Provider: Marielos Stephens MD DS: Diagnosis Problem List Completed Was Problem List Reviewed/Reconciled?: Yes Hospital Course Hospital Course Hospital course: 53-year-old female with past medical history of recurrent admissions related to ESLD secondary to alcoholic liver cirrhosis, hepatic encephalopathy, esophageal varices status post banding, and type 2 diabetes mellitus who presented to the ED on 03/15/2024 with complaint of lethargy, weakness, and nausea starting today. Admitted for hypotension secondary to decompensated alcoholic liver cirrhosis. Patient was admitted with a diagnosis of encephalopathy, started on lactulose 3 times daily and IV ceftriaxone was given for SBP prophylaxis, resume home medications including rifaximin and pantoprazole, and midodrine 10 mg 3 times daily, noted to be bradycardic likely secondary to midodrine, bacterial continue midodrine 10 mg 3 times daily due to concern for hypotension, patient also complained of chronic backache and headache and was given Fioricet x 1 which improved her symptoms. Patient had bowel movements, and noted improvement in her mental status, back to baseline and O x 3. The patient is stable, afebrile and tolerating Per oral medications at the time of discharge. The patient understood and agreed to the treatment plan. Patient is recommended to follow-up with primary care physician within 1 week Patient is being sent home with a new medication colestyramine 1 packet a day to be taken for pruritus (itching) associated with end-stage liver disease Patient is also recommended to follow-up with her movement education specialist in [place] to continue to be on potential transplant list. Recommend continuation of abstinence from alcohol use. Follow up with Primary care physician with labs within 3-5 days of discharge. If symptoms persist or worsen, return to the Emergency Department. #Hepatic encephalopathy #Hypotension #Likely secondary to decompensated alcoholic liver cirrhosis #Elevated ammonia #Hyperbilirubinemia #Thrombocytopenia #Coagulopathy Patient was hypotensive per mother who stated at home reading was 88/47. Patient reports compliance with midodrine 10 mg TID. On initial evaluation for admission patient BP improved to 99/58 after 2L fluids. In the ED patient got 25 gm and BP still dropped to 80s/50s, MAP ranging 65-70. Patient currently not appearing septic, no evidence of GI bleed Likely chronic secondary to decompensated cirrhosis. Patient currently at her baseline mental status she is AAOx3 Hemoglobin on admission was 10.8 patient has no evidence of vomiting blood hematochezia or melena in the past few weeks Last bowel movement 3 to 4 days ago likely cause of hepatic encephalopathy Abdominal ultrasound negative for ascites ? On midodrine 10 mg 3 times daily ? On lactulose 30 g 3 times daily ? On home rifaximin 550 mg twice daily ? On ceftriaxone for SBP prophylaxis ? Continue home pantoprazole 40 mg daily #Headache, resolved #Chronic back and neck pain due to bedbound status Gave patient x1 Fioricet, patient reported good relief of headache. -Limit acetaminophen-containing medications due to ESLD -Oxycodone IR 5 mg q6h as needed for moderate to severe painaa Time Spent with Patient Time attestation: Total time spent providing and/or coordinating discharge services: 30 min Exam Vital Signs Temp Pulse Resp BP Pulse Ox O2 Del Method 97.7 F 59 L 18 108/60 99 Room Air 03/17/24 12:00 03/17/24 12:00 03/17/24 12:00 03/17/24 12:00 03/17/24 12:03/17/24 12:00 Narrative Exam Physical Exam GENERAL: NAD, AAOx3, jaundice, obese HEENT: Moist mucosa. Eyes open, symmetrical, scleral icterus CARDIO: Heart RRR, no obvious murmurs PULM: No noted coughing/dyspnea CTA B/L, no R/W/R GI: Abdomen soft, distended, some pain on palpation epigastric region. BSx4 SKIN/MSK/EXT: No wounds/rashes/edema/amputations, no pain on palpation. Pedal pulses present B/L NEURO: AAOx3, no focal neuro deficits, able to move all 4 extremities Discharge Plan Plan Patient Disposition: HOME (Self Care) Care Plan Goals: Patient is recommended to follow-up with primary care physician within 1 week Patient is being sent home with a new medication colestyramine 1 packet a day to be taken for pruritus (itching) associated with end-stage liver disease Patient is also recommended to follow-up with her movement education specialist in [place] to continue to be on potential transplant list. Recommend continuation of abstinence from alcohol use. Prescriptions/Referrals Prescriptions/Med Rec: New cholestyramine (with sugar) 4 gram powder in packet 4 g PO BID Qty: 60 0RF Rx Instructions: administer w/meal; avoid other meds within 1hr before or 4-6hr after dose Continued pantoprazole 40 mg tablet,delayed release (DR/EC) 40 mg PO QDAY Qty: 30 0RF lactulose 20 gram/30 mL Solution 30 g PO TID 30 Days Qty: 4050 1RF methocarbamol 750 mg Tablet 750 mg PO BID lidocaine HCl [Lidocaine Viscous] 2 % Solution 5 ml PO 6 TIMES DAILY PRN (Reason: Pain) ergocalciferol (vitamin D2) [Vitamin D2] 1,250 mcg (50,000 unit) Capsule 1,250 mcg PO QWEEK oxycodone 5 mg tablet 5 mg PO Q12H PRN (Reason: Pain) Patient Comments: TAKE 1 TABLET BY MOUTH EVERY 12 HOURS NEEDED FOR PAIN furosemide 40 mg tablet 40 mg PO QDAY Patient Comments: TAKE 1 TABLET BY MOUTH DAILY Xifaxan 550 mg tablet 550 mg PO BID Patient Comments: TAKE 1 TABLET BY MOUTH TWICE A DAY FOR 1 MONTH midodrine 10 mg tablet 10 mg PO TID Patient Comments: PLEASE SEE ATTACHED FOR DETAILED DIRECTIONS ferrous sulfate 325 mg (65 mg iron) tablet 325 mg PO DAILY Patient Comments: TAKE 1 TABLET BY MOUTH DAILY WITH ORANGE JUICE. -DO NOT GIVE CAFFEINE Referrals: Stacy Graff FNP [Primary Care Provider] - Patient/Caregiver Discharge Instructions Education Materials: Discharge Instructions for ..., Hypotension Dc Print Language: Swedish Stand Alone Forms: [facility] Award Info., Patient Portal Info Letter Discharge Order Discharge Orders: Discharge (Routine); Ordered 03/17/24 Ordered By: Marielos Stephens Quality Discharge Quality Measures VTE prophylaxis Attestestation MD Attestation Patient seen and examined, she is alert and oriented. No abdominal pain no fever. She will follow up in the clinic. Return to ER or contact PCP for recurrent symptoms. Discussed with housestaff.
--- NOTE | 2024-03-19 09:03 | PC.SS ---
SS sent DME order for dale lift using [facility].
== END 2024-03-17 13:47 | disposition home or self-care (01) ==
LOC: SERX 21:21 → SERHOLD 03-15 06:29 → S3SX 03-15 15:06
PROVIDERS: Internal Medicine; Physician Assistant; Student in an Organized Health Care Education/Training Program; Admitting Provider Internal Medicine; Emergency Provider Emergency Medicine; PCP Nurse Practitioner Family; Visit Provider Internal Medicine
DX: K70.30 Alcoholic cirrhosis of liver without ascites (principal); K76.82 Hepatic encephalopathy; D64.9 Anemia, unspecified; D68.9 Coagulation defect, unspecified; D69.6 Thrombocytopenia, unspecified; E11.9 Type 2 diabetes mellitus without complications; E72.20 Disorder of urea cycle metabolism, unspecified; G89.29 Other chronic pain; I85.10 Secondary esophageal varices without bleeding; Z74.01 Bed confinement status; L29.9 Pruritus, unspecified; K72.10 Chronic hepatic failure without coma; Z87.19 Personal history of other diseases of the digestive system; Z01.810 Encounter for preprocedural cardiovascular examination
CPT/HCPCS: 36415; 70450; 71045; 76705; 80053; 80307; 80320; 81001; 82140; 82248; 83690; 83735; 83880; 84100; 84484; 85025; 85610; 87400; 87811; 93005; 96361; 96365; 96366; 96367; 96375; 96376; 97161; 99291; G0378; J0696; J1815; J2470; J7030; P9047; A9270; G0480

== ENCOUNTER 2024-04-01 10:27 | Emergency (ER) | payer MEDICAID, SELFPAY ==
[2024-04-01] VITALS (7 sets, daily range): BP systolic 90–98; BP diastolic 52–60; PULSE 54–58; RESP 13–18; TEMP 36.7–37.1; O2SAT 96–100; BMI 30.2
--- NOTE | 2024-04-01 11:00 | PD.EDRME ---
Rapid Medical Screening Exam E Arrival date/time: 04/01/24 10:27 53-year-old female with a history of liver cirrhosis presents to the emergency room with a chief complaint of abdominal pain, abdominal distention, shortness of breath x 2 days. I have greeted and performed a focused initial assessment of this patient. A comprehensive ED assessment and evaluation of the patient, analysis of all test results, and completion of the medical decision making process will be conducted by additional ED providers. Chief Complaint: General Adult/Misc Complain Vital signs: Vital Signs Temperature 98.8 F 04/01/24 10:57 Pulse Rate 57 L 04/01/24 10:57 Respiratory Rate 16 04/01/24 10:57 Blood Pressure 98/60 04/01/24 10:57 Pulse Oximetry (%) 99 04/01/24 10:57 Oxygen Delivery Method Room Air 04/01/24 10:57 Vital signs reviewed by provider: Yes
[2024-04-01 11:32] LABS: Basophils % (Auto) 1 % (0-2.5); Eosinophils # (Auto) 0.1 Thou/mm3 (0.0-0.5); Eosinophils % (Auto) 3 % (0-10); Hematocrit 33.4 % (36.0-46.0); Hemoglobin 11.6 g/dL (12.0-16.0); Immature Granulocytes % (Auto) 0 % (0-0); Immature Granulocytes Auto 0.01 Thou/mm3 (0.00-0.00); Lymphocytes # (Auto) 1.3 Thou/mm3 (1.0-4.8); Lymphocytes % (Auto) 27 % (10-50); Mean Corpuscular HGB Conc 34.7 g/dl (31.0-37.0); Mean Corpuscular Hemoglobin 35.8 pg (25.0-35.0); Mean Corpuscular Volume 103 fL (80-100); Monocytes # (Auto) 0.3 Thou/mm3 (0.0-0.8); Monocytes % (Auto) 7 % (0-12); Neutrophils % (Auto) 62 % (37-80); Nucleated Red Blood Cell % 0 /100 WBC (0); RDW Standard Deviation 59.7 fL (36.4-46.3); Red Blood Count 3.24 Miln/mm3 (4.00-5.20); White Blood Count 4.8 Thou/mm3 (3.6-11.0)
[2024-04-01 11:38] LABS: Platelet Count 60 Thou/mm3 (140-440)
[2024-04-01 11:40] LABS: INR 1.9 (0.9-1.3); Partial Thromboplastin Time 44.6 Seconds (22.0-36.0); Prothrombin Time 20.1 Seconds (9.0-12.2)
[2024-04-01 11:51] LABS: Alanine Aminotransferase 14 U/L (10-49); Albumin, Serum 2.8 gm/dL (3.5-5.0); Albumin/Globulin Ratio 0.7 (1.2-2.2); Alkaline Phosphatase 145 U/L (46-116); Anion Gap 8 (7-16); Aspartate Amino Transferase 32 U/L (0-34); BUN/Creatinine Ratio 11 Ratio (12-20); Bilirubin,Total 5.9 mg/dL (0.3-1.2); Blood Urea Nitrogen 10 mg/dL (9-23); Calcium 8.9 mg/dL (8.3-10.6); Calcium (Corrected) 9.9 mg/dL (8.5-10.1); Carbon Dioxide 27.6 mMol/L (20.0-31.0); Chloride 102 mMol/L (98-107); Creatinine (Component) 0.9 mg/dL (0.6-1.3); Estimated Creatinine Clearance 61.3 mL/min (>60); Globulin 3.9 gm/dL (2.3-3.5); Glucose 223 mg/dL (74-106); Lipase 33 U/L (12-53); Osmolality,Calculated 281 (275-295); Potassium 4.4 mMol/L (3.4-5.1); Sodium 138 mMol/L (136-145); Total Protein 6.7 gm/dL (5.7-8.2); eGFR > 60 See Note
[2024-04-01 12:22] LABS: Slide Review Platelets confirmed
[2024-04-01 12:52] LABS: Collection Type, Urine Clean Catch
[2024-04-01 13:05] LABS: Bacteria,Urine 1+; Bilirubin,Urine Negative (Negative); Blood,Urine 2+ (Negative); Color,Urine Yellow (Lt Yel-Yel); Glucose, Urine Negative (Negative); Hyaline Casts,Urine < 1 /hpf (0-1); Ketones,Urine Negative (Negative); Leukocyte Esterase,Urine Positive (Negative); Nitrite,Urine Negative (Negative); Protein,Urine Negative (Neg - Trace); RBC,Urine 30 /hpf (0-3); Specific Gravity,Urine 1.018 (1.001-1.035); Squamous Epithelial Cell,Urine 3 /hpf (0-5); WBC,Urine 39 /hpf (0-5)
[2024-04-01 13:14] LABS: HCG Qualitative,Urine Negative
[2024-04-01 13:15] LABS: Clarity,Urine Hazy (Clear/Hazy)
--- NOTE | 2024-04-01 13:44 | PD.EDWEAK ---
ED Weakness RME/HPI General Chief complaint: General Adult/Misc Complain Stated complaint: LOW BP Arrival date/time: 04/01/24 10:27 RME / HPI RME / HPI Narrative: 04/01/24 10:27 53-year-old female with a history of liver cirrhosis presents to the emergency room with a chief complaint of abdominal pain, abdominal distention, shortness of breath x 2 days. I have greeted and performed a focused initial assessment of this patient. A comprehensive ED assessment and evaluation of the patient, analysis of all test results, and completion of the medical decision making process will be conducted by additional ED providers. DR. GUNTER MAIN ED EVALUATION 53 year old female with history of liver cirrhosis, end stage liver disease, diabetes, esophageal varices s/p band ligation, previous admissions for GIB, chronic back pain, presents to the ED BIB mother for evaluation of lethargy, weakness, and low blood pressure today. Mother reports lethargy and weakness began 3 days ago however noted blood pressure to be low today; was 109/48 at home. Additionally report abdominal discomfort and blood in urine. States they were advised by GI Dr. Culp that if her blood pressure drops to come to the ED for further evaluation. Denies fevers, chills, chest pain, cough, abdominal pain, vomiting, or painful urination. Patient states at baseline patient is able to get around with assistance of family and wheelchair. Related Data Home Medications ?Medication ?Instructions ?Recorded ?Confirmed midodrine 10 mg tablet 10 mg PO TID 01/12/24 03/15/24 rifaximin 550 mg tablet (Xifaxan) 550 mg PO BID 01/12/24 03/15/24 ferrous sulfate 325 mg (65 mg 325 mg PO DAILY 01/22/24 03/15/24 iron) tablet ergocalciferol (vitamin D2) 1,250 1,250 mcg PO QWEEK 02/06/24 03/15/24 mcg (50,000 unit) capsule (Vitamin D2) lidocaine HCl 2 % mucosal solution 5 ml PO 6 TIMES DAILY PRN Pain 02/06/24 02/06/24 (Lidocaine Viscous) methocarbamol 750 mg tablet 750 mg PO BID 02/06/24 03/15/24 furosemide 40 mg tablet 40 mg PO QDAY 03/15/24 03/15/24 oxycodone 5 mg tablet 5 mg PO Q12H PRN Pain 03/15/24 03/15/24 Previous Rx's ?Medication ?Instructions ?Recorded pantoprazole 40 mg tablet,delayed 40 mg PO QDAY #30 tabs 10/15/23 release lactulose 20 gram/30 mL oral 30 g (45 mL) PO TID 30 days #4,050 01/31/24 solution mL cholestyramine (with sugar) 4 gram 4 g PO BID #60 ea 03/17/24 powder for susp in a packet Allergies Allergy/AdvReac Type Severity Reaction Status Date / Time latex Allergy Severe Hives Verified 03/14/24 19:18 Review of Systems Review of Systems Narrative Review of Systems: GEN: No fever, no chills, no weight loss, +global weakness, +lethargy EYES: No discharge, no visual changes, no pain HEENT: No ear pain, no congestion, no sore throat PULM: No shortness of breath, no cough, no congestion CV: +low blood pressure. No chest pain, no dyspnea on exertion, no palpitations GI: No nausea, no vomiting, no diarrhea, +abd discomfort no constipation : +blood in urine. No frequency, no urgency and no dysuria MUSC/SKEL No joint pain, +chronic back pain SKIN: No rash NEURO: No headache Past Medical History Past Medical History NEUROLOGIC: Positive Neurological Disorders, Migraine and Spinal Cord Injury CARDIAC: Positive Hypotension GASTROINTESTINAL: Positive Gastrointestinal Disorders, Cirrhosis, Gastrointestinal Bleed and Esophageal Varices REPRODUCTIVE: Positive Endometriosis and Previous Pregnancies MUSCULOSKELETAL: Positive Musculoskeletal Disorders ENDOCRINE: Positive Endocrine Disorders and Diabetes Mellitus Type 2 HEMATOLOGIC: Positive Blood Disorders and Anemia PSYCHO/SOCIAL: Positive Depression and Anxiety OTHER HISTORY: Positive Blood Transfusions Family History FAMILY HISTORY: Positive Family Psychiatric Problems and Family Cancer Surgical History SURGICAL: Positive Section Social History SMOKING STATUS: Never smoker SECOND HAND EXPOSURE: No SUBSTANCE USE: marijuana ED Exam Narrative Physical exam: GENERAL APPEARANCE: Well hydrated, well nourished, in no acute distress. VITALS: All vitals were reviewed and the pulse ox is 99% on room air which is normal according to my interpretation. HEENT: Normocephalic, atramatic, EOMI, EACs are patent. There is no bulge or retraction. Throat without erythema or exudate. Moist oromucosa. No jaundice NECK: Supple, no JVD or bruits. CARDIOVASCULAR: Heart regular without S3-S4 or murmur. No rubs or gallops. LUNGS/CHEST: Clear to auscultation bilaterally. No rales, rhonchi, or wheezing. Normal inspection. ABDOMEN: Soft, nontender, with normal bowel sounds. No pulsatile masses. No rebound, rigidity, or guarding. No incarcerated hernia. Normal inspection and palpation. EXTREMITIES: Normal inspection and palpation. No edema, clubbing, or cyanosis. Intact CSM SKIN: Warm and dry without rashes. Normal inspection. MUSCULOSKELETAL: Normal inspection. No gross deformity, full ROM all extremities NEURO: Alert and oriented x3. Cranial nerves II through XII grossly intact. There are no other motor or sensory deficits noted. PSYCHIATRIC: Normal mood and affect. No psychosis Course Quality Measures none Orders Category Date Time Status Ammonia Stat Lab 04/01/24 14:55 Completed CBC Stat Lab 04/01/24 11:10 Completed CMP [Comprehensive Metabolic Panel] Stat Lab 04/01/24 11:10 Completed HCG Qualitative,Urine Stat Lab 04/01/24 12:20 Completed Lipase Stat Lab 04/01/24 11:10 Completed PT [Prothrombin Time with INR] Stat Lab 04/01/24 11:10 Completed PTT [Partial Thromboplastin Time] Stat Lab 04/01/24 11:10 Completed UA [Urinalysis] Stat Lab 04/01/24 12:20 Completed Urine Culture Stat Lab 04/01/24 12:20 Received Sodium Chloride 0.9% 1000 ml [Ns] 1,000 ml Med 04/01/24 13:55 Discontinued IV 999 mls/hr Trimethoprim/Sulfa 160/800 Ds [Bactrim Ds] Med 04/01/24 13:54 Discontinued 1 tab PO X1 ONE Vital Signs Vital signs: Vital Signs Temperature 98.8 F 04/01/24 10:57 Pulse Rate 57 L 04/01/24 10:57 Respiratory Rate 16 04/01/24 10:57 Blood Pressure 98/60 04/01/24 10:57 Pulse Oximetry (%) 99 04/01/24 10:57 Oxygen Delivery Method Room Air 04/01/24 10:57 Weakness MDM Narrative MDM Narrative:: I, Sabrina Cherry, am scribing for and in the presence of Dr. Gunter. CBC showing platelet count of 60,000 which is normal for her being liver cirrhosis. CMP is also consistent with liver cirrhosis with total bilirubin being elevated and liver enzyme elevation. This is unchanged from many years. Her ammonia level was 65. But the patient is alert awake oriented x 4 GCS of 15 and normal mentation. Blood sugar is 223. test is negative. Pro time is 20 and INR is 1.9 once again consistent with liver cirrhosis pattern. UA is positive for 1+ bacteria and I am giving her antibiotic for that. In the emergency department the patient received antibiotic by mouth and IV hydration. She is stable to go home. Mom is here for pickup. The blood pressure is fine for the patient who is mainly bedridden Patient data External records reviewed:: [facility] previous records (I reviewed admission from 03/14/2024 thrugh 03/17/2024) Clinical information provided by:: patient and parent Social determinants that could affect healthcare access:: none Patient has the following chronic illnesses:: liver cirrhosis, end stage liver disease, diabetes, esophageal varices s/p band ligation, previous admissions for GIB, chronic back pain How is presenting disease/condition affected by chronic disease/condition?: exacerbated by Evaluation data The following diagnostics were reviewed and interpreted by me:: lab results Lab and/or radiology exams considered but not ordered:: None Interpretation Summary: As noted above Medications / Prescriptions Medications or Prescriptions considered but not ordered:: None Medication administrations:: Medication Administration History Discontinued Medications Sodium Chloride (Ns) 1,000 mls @ 999 mls/hr IV .Q1H1M ONE Stop: 04/01/24 14:55 Last Admin: 04/01/24 15:34 Dose: 999 mls/hr Documented By: ELIZABETH Trimethoprim/Sulfamethoxazole (Trimethoprim/Sulfa 160/800 Ds Tablet) 1 tab PO X1 ONE Stop: 04/01/24 13:55 Last Admin: 04/01/24 15:35 Dose: 1 tab Documented By: ELIZABETH See above Consultations Consultation(s) initiated? (list below): No Diagnosis Weakness Differential Diagnosis: anemia, hypoglycemia, hypothyroidism, sepsis and dehydration Most likely diagnosis given after review of the tests above:: Liver cirrhosis Admission Indicated Admission indicated?: not indicated Admission Request Was there a request for admission?: No Disposition Plan Disposition Plan: Discharge Discharge Attestation Discharge Attestation: The patient and all family members were given an opportunity to ask questions and understood the discharge instructions. Discharge instructions specifically effects, indications for sooner follow up or return to the emergency department, and the expected course of current diagnosis. Patient condition: Stable Discharge Plan Plan Patient Disposition: HOME (Self Care) Disposition Comment: Stable for DC Prescriptions/Referrals Prescriptions/Med Rec: No Action pantoprazole 40 mg tablet,delayed release (DR/EC) 40 mg PO QDAY Qty: 30 0RF lactulose 20 gram/30 mL Solution 30 g PO TID 30 Days Qty: 4050 1RF methocarbamol 750 mg Tablet 750 mg PO BID lidocaine HCl [Lidocaine Viscous] 2 % Solution 5 ml PO 6 TIMES DAILY PRN (Reason: Pain) ergocalciferol (vitamin D2) [Vitamin D2] 1,250 mcg (50,000 unit) Capsule 1,250 mcg PO QWEEK oxycodone 5 mg tablet 5 mg PO Q12H PRN (Reason: Pain) Patient Comments: TAKE 1 TABLET BY MOUTH EVERY 12 HOURS NEEDED FOR PAIN furosemide 40 mg tablet 40 mg PO QDAY Patient Comments: TAKE 1 TABLET BY MOUTH DAILY cholestyramine (with sugar) 4 gram powder in packet 4 g PO BID Qty: 60 0RF Rx Instructions: administer w/meal; avoid other meds within 1hr before or 4-6hr after dose Xifaxan 550 mg tablet 550 mg PO BID Patient Comments: TAKE 1 TABLET BY MOUTH TWICE A DAY FOR 1 MONTH midodrine 10 mg tablet 10 mg PO TID Patient Comments: PLEASE SEE ATTACHED FOR DETAILED DIRECTIONS ferrous sulfate 325 mg (65 mg iron) tablet 325 mg PO DAILY Patient Comments: TAKE 1 TABLET BY MOUTH DAILY WITH ORANGE JUICE. -DO NOT GIVE CAFFEINE Referrals: No Primary/Family,Physician [Primary Care Provider] - In 1 week Problem List Clinical Impression: Cirrhosis Patient/Caregiver Discharge Instructions Education Materials: ED Cirrhosis Additional Instructions: Please follow-up with her medical doctor for recheck and further care in 3 days. Return the emergency department if any problem. Encourage liquid intake Print Language: Yoruba Stand Alone Forms: [employer] Info., Patient Portal Info Letter
[2024-04-01 15:25] LABS: Ammonia 65 uMol/L (11-32)
[2024-04-01] MEDS: SODIUM CHLORIDE 0.9% 1000 ML 1,000 ML 999 ML IV ×2 (15:34→16:43)
[2024-04-01] MEDS: TRIMETHOPRIM/SULFA 160/800 DS TABLET 1 TAB PO (15:35)
[2024-04-01] MEDS: ONDANSETRON INJ 2 MG/ML INJ 2 ML 4 MG IV (16:44)
== END 2024-04-01 17:49 | disposition home or self-care (01) ==
PROVIDERS: Nurse Practitioner Family; Emergency Provider Emergency Medicine
DX: K74.60 Unspecified cirrhosis of liver (principal); E11.9 Type 2 diabetes mellitus without complications
CPT/HCPCS: 36415; 80053; 81001; 81025; 82140; 83690; 85025; 85610; 85730; 87077; 87086; 87186; 96361; 96374; 99284; J2405; J7030; A9270

== ENCOUNTER 2024-04-03 22:11 | Emergency (ER) | payer MEDICAID, SELFPAY ==
[2024-04-03 22:11] VITALS: BMI 30.2
--- NOTE | 2024-04-03 23:20 | XR_ITS ---
Examination: CT abdomen with intravenous contrast CT pelvis with intravenous contrast 2-D coronal reconstructions 2-D sagittal reconstructions Date and time of exam: April 04, 2024 at 0216 hrs. Comparison March 17, 2024 Indications: Blood in urine left flank pain beginning 2 days ago, diagnosis end-stage liver failure patient CTDI: vol (mGy) 18.41 DLP: (mGycm) 759 Technique: Multiple axial sections of the abdomen and pelvis have been obtained. 64 slice high-resolution scanner used. 3 mm axial sections have been obtained, post intravenous injection 60 cc [id number] 2-D sagittal, coronal reconstructions obtained. Low dose protocols were performed. One or more of the following dose reduction techniques were used; automated exposure control, adjustment of the mA and/or KV according to patient size, use of iterative reconstruction technique. Findings: Cirrhosis, liver irregular in contour Gallbladder wall is thickened but there is trace ascites Anasarca Mild splenomegaly Esophageal varices No pancreatic mass Bilateral renal calculi including 7 mm calculus in the right renal pelvis Minimal right hydronephrosis Aorta normal size The generalized periumbilical vein Edema in the mesentery Tiny fat-containing umbilical hernia No bowel obstruction Anteverted uterus Contracted urinary bladder Moderate osteopenia Tiny fluid collection right external genitalia axial image 244 3 x 2 mm Impression: Cirrhosis Esophageal varices Anasarca Bilateral renal calculi including 7 mm calculus in the right renal pelvis with minimal right hydronephrosis
[2024-04-03 23:21] VITALS: BP 126/70; PULSE 55; RESP 18; TEMP 36.9; O2SAT 99
--- NOTE | 2024-04-03 23:21 | PD.EDRME ---
Rapid Medical Screening Exam RME Arrival date/time: 04/03/24 22:11 Chief Complaint: Abdominal Pain Time Seen by Provider: 04/03/24 23:15 RME Narrative: 53 yo female with history of cirrhosis presents with abdominal pain. States she takes oxycodone and has been unable to get refills of her medication due to a change at her PCP office. I have greeted and performed a focused initial assessment of this patient. A comprehensive ED assessment and evaluation of the patient, analysis of all test results, and completion of the medical decision making process will be conducted by additional ED providers.
[2024-04-03] MEDS: oxyCODONE/APAP 5/325 TABLET 1 TAB PO (23:51)
[2024-04-03 23:58] LABS: Basophils # (Auto) 0.1 Thou/mm3 (0.0-0.2); Basophils % (Auto) 1 % (0-2.5); Eosinophils # (Auto) 0.2 Thou/mm3 (0.0-0.5); Eosinophils % (Auto) 3 % (0-10); Hematocrit 33.1 % (36.0-46.0); Hemoglobin 11.4 g/dL (12.0-16.0); Immature Granulocytes % (Auto) 1 % (0-0); Immature Granulocytes Auto 0.03 Thou/mm3 (0.00-0.00); Lymphocytes # (Auto) 1.8 Thou/mm3 (1.0-4.8); Lymphocytes % (Auto) 30 % (10-50); Mean Corpuscular HGB Conc 34.4 g/dl (31.0-37.0); Mean Corpuscular Hemoglobin 35.1 pg (25.0-35.0); Mean Corpuscular Volume 102 fL (80-100); Monocytes # (Auto) 0.5 Thou/mm3 (0.0-0.8); Monocytes % (Auto) 9 % (0-12); Neutrophils # (Auto) 3.4 Thou/mm3 (1.8-7.7); Neutrophils % (Auto) 56 % (37-80); Nucleated Red Blood Cell % 0 /100 WBC (0); RDW Standard Deviation 58.4 fL (36.4-46.3); Red Blood Count 3.25 Miln/mm3 (4.00-5.20)
[2024-04-04] LABS: Platelet Count 62 Thou/mm3 (140-440)
[2024-04-04] MEDS: ONDANSETRON ODT 4 MG TABRAP PO (00:27)
[2024-04-04 00:44] LABS: Alanine Aminotransferase 16 U/L (10-49); Albumin, Serum 2.7 gm/dL (3.5-5.0); Albumin/Globulin Ratio 0.7 (1.2-2.2); Alkaline Phosphatase 146 U/L (46-116); Anion Gap 7 (7-16); Aspartate Amino Transferase 36 U/L (0-34); BUN/Creatinine Ratio 12 Ratio (12-20); Bilirubin,Total 6.1 mg/dL (0.3-1.2); Blood Urea Nitrogen 12 mg/dL (9-23); Calcium 9.4 mg/dL (8.3-10.6); Calcium (Corrected) 10.4 mg/dL (8.5-10.1); Carbon Dioxide 24.3 mMol/L (20.0-31.0); Chloride 110 mMol/L (98-107); Estimated Creatinine Clearance 55.2 mL/min (>60); Globulin 4.1 gm/dL (2.3-3.5); Glucose 185 mg/dL (74-106); Lipase 37 U/L (12-53); Osmolality,Calculated 285 (275-295); Sodium 141 mMol/L (136-145); Total Protein 6.8 gm/dL (5.7-8.2); eGFR > 60 See Note
[2024-04-04 00:47] LABS: Slide Review Platelets confirmed
[2024-04-04 00:53] LABS: INR 1.9 (0.9-1.3); Prothrombin Time 20.1 Seconds (9.0-12.2)
--- NOTE | 2024-04-04 01:43 | PD.EDABDPN ---
ED Abdominal Pain RME/HPI General Chief Complaint: Abdominal Pain Stated complaint: ABD PAIN / BLOOD IN URINE Time seen by provider: 04/03/24 23:15 Arrival date/time: 04/03/24 22:11 RME / HPI RME / HPI narrative: 53 yo female with history of cirrhosis presents with abdominal pain. States she takes oxycodone and has been unable to get refills of her medication due to a change at her PCP office. I have greeted and performed a focused initial assessment of this patient. A comprehensive ED assessment and evaluation of the patient, analysis of all test results, and completion of the medical decision making process will be conducted by additional ED providers. Dr. Conklin?s Main ED Evaluation: 53yo female with a history of liver cirrhosis, end stage liver disease, diabetes, esophageal varices s/p band ligation, previous admissions for GIB, chronic back pain accompanied by her presents to the ED for a chief complaint of chronic abdominal pain. 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 She states she's been in significant pain and her notes the patient has been lethargic, so she came in for evaluation. Patient states she has not had a bowel movement for an unknown amount of time despite taking her lactulose 3 times a day. Patient denies any fever, chills or any other associated symptoms. Related Data Home Medications ?Medication ?Instructions ?Recorded ?Confirmed midodrine 10 mg tablet 10 mg PO TID 01/12/24 03/15/24 rifaximin 550 mg tablet (Xifaxan) 550 mg PO BID 01/12/24 03/15/24 ferrous sulfate 325 mg (65 mg 325 mg PO DAILY 01/22/24 03/15/24 iron) tablet ergocalciferol (vitamin D2) 1,250 1,250 mcg PO QWEEK 02/06/24 03/15/24 mcg (50,000 unit) capsule (Vitamin D2) lidocaine HCl 2 % mucosal solution 5 ml PO 6 TIMES DAILY PRN Pain 02/06/24 02/06/24 (Lidocaine Viscous) methocarbamol 750 mg tablet 750 mg PO BID 12/23/24 01/30/25 furosemide 40 mg tablet 40 mg PO QDAY 03/15/24 03/15/24 oxycodone 5 mg tablet 5 mg PO Q12H PRN Pain 03/15/24 03/15/24 Previous Rx's ?Medication ?Instructions ?Recorded pantoprazole 40 mg tablet,delayed 40 mg PO QDAY #30 tabs 10/15/23 release lactulose 20 gram/30 mL oral 30 g (45 mL) PO TID 30 days #4,050 01/31/24 solution mL cholestyramine (with sugar) 4 gram 4 g PO BID #60 ea 03/17/24 powder for susp in a packet sulfamethoxazole 800 1 tab PO BID 7 days #14 tabs 04/01/24 mg-trimethoprim 160 mg tablet (Bactrim DS) Allergies Allergy/AdvReac Type Severity Reaction Status Date / Time latex Allergy Severe Hives Verified 03/14/24 19:18 Review of Systems Review of Systems Systems Reviewed: All systems reviewed, normal except as documented Past Medical History Past Medical History NEUROLOGIC: Positive Neurological Disorders, Migraine and Spinal Cord Injury; Negative Seizures CARDIAC: Positive Hypotension; Negative Cardiac Disorders or Congestive Heart Failure RESPIRATORY: Negative Chronic Obstructive Pulmonary Disease (COPD) or Asthma GASTROINTESTINAL: Positive Gastrointestinal Disorders, Cirrhosis, Gastrointestinal Bleed and Esophageal Varices GENITOURINARY: Negative Renal Disease REPRODUCTIVE: Positive Endometriosis and Previous Pregnancies MUSCULOSKELETAL: Positive Musculoskeletal Disorders ENDOCRINE: Positive Endocrine Disorders and Diabetes Mellitus Type 2; Negative Diabetes Mellitus Type 1 HEMATOLOGIC: Positive Blood Disorders and Anemia; Negative Sickle Cell Disease PSYCHO/SOCIAL: Positive Depression and Anxiety OTHER HISTORY: Positive Blood Transfusions; Negative Autoimmune Disease, Blood Transfusion Reaction, Anesthesia Reactions or Cancer Family History FAMILY HISTORY: Positive Family Psychiatric Problems and Family Cancer; Negative Family Respiratory Disorders, Family Cardiac Disorders, Family Gastrointestinal Problems, Family Surgery or Family Anesthesia Reaction Surgical History SURGICAL: Positive Section Social History SMOKING STATUS: Never smoker SECOND HAND EXPOSURE: No SUBSTANCE USE: marijuana ED Exam Narrative Physical exam: GENERAL APPEARANCE: alert and oriented x 4, well-developed, well-nourished, appears to be in pain, no acute distress VITALS: All vitals were reviewed and the pulse ox is % on room air, which is normal according to my interpretation. HEENT: Normocephalic, atraumatic; pupils equal, round, reactive to light; EOMI; scleral icterus; mucous membranes pink, moist; oropharynx clear NECK: Supple LUNGS: CTABL; no wheezes, no rales, no rhonchi HEART: Regular rate, regular rhythm; normal S1, S2; no murmurs ABDOMEN: distended with ascites; normal BS; soft, no tenderness, no guarding, no rebound; no masses, no organomegaly, no hernia BACK: no CVA tenderness EXTREMITIES: atraumatic; no edema NEUROLOGIC: awake; alert and oriented x4; cranial nerves II-XII grossly intact; no focal sensory or motor deficits PSYCHIATRIC: appropriate mood and affect SKIN: warm, dry, jaundicer; no rashes Course Quality Measures none Orders Category Date Time Status CT Screening NOW Care 04/03/24 23:[address] abdomen pelvis w con Stat Exams 04/03/24 23:20 Taken Ammonia Stat Lab 04/04/24 01:41 Completed CBC Stat Lab 04/03/24 23:42 Completed CMP [Comprehensive Metabolic Panel] Stat Lab 04/03/24 23:42 Completed Lipase Stat Lab 04/03/24 23:42 Completed PT [Prothrombin Time with INR] Stat Lab 04/03/24 23:42 Completed PTT [Partial Thromboplastin Time] Stat Lab 04/03/24 23:42 Completed Urinalysis Stat Lab 04/04/24 01:56 Completed HYDROmorphone INJ [Dilaudid Inj] Med 04/04/24 02:04 Discontinued 1 mg IVP X1 ONE Ondansetron Inj [Zofran Inj] Med 04/04/24 02:39 Discontinued 4 mg IV X1 ONE Ondansetron Odt [Zofran Odt] Med 04/04/24 00:15 Discontinued 4 mg PO X1 ONE oxyCODONE/APAP 5/325 [Percocet 5/325] Med 04/03/24 23:20 Discontinued 1 tab PO X1 ONE Reevaluation(s) Reevaluation #1: Patient is resting comfortable at this time. When woken up, she is alert, oriented, and is answering questions appropriately. Patient is stable to be discharged home. Time: 04:28 Vital Signs Vital signs: Vital Signs Temperature 98.5 F 04/03/24 23:21 Pulse Rate 55 L 04/03/24 23:21 Respiratory Rate 18 04/03/24 23:21 Blood Pressure 126/70 04/03/24 23:21 Pulse Oximetry (%) 99 04/03/24 23:21 Oxygen Delivery Method Room Air 04/03/24 23:21 Abdominal Pain MDM MDM Narrative MDM Narrative:: Scribe Attestation: 04/04/24 - Kaley Slade am scribing for and in the presence of Dr. Conklin. Patient data External records reviewed:: [facility] previous records (Per chart review, patient was seen here on 04/01/24 for cirrhosis.) Clinical information provided by:: patient and family Social determinants that could affect healthcare access:: none Patient has the following chronic illnesses:: liver cirrhosis, end stage liver disease, diabetes, esophageal varices s/p band ligation, previous admissions for GIB, chronic back pain How is presenting disease/condition affected by chronic disease/condition?: caused by Evaluation data The following diagnostics were reviewed and interpreted by me:: lab results and radiology exam(s) Lab and/or radiology exams considered but not ordered:: none Interpretation Summary: WBC count is normal, HnH is 11.4/33.1, PT and INR are elevated (which is chronic), PTT is elevated (which is chronic), Creatinine is normal, Total Bilirubin is elevated at 6.1 (which is chronic), Ammonia is elevated at 212, Lipase is normal, UA is unremarkable, according to my interpretation. ------- T[facility] Preliminary Report Draft Patient: SHANNON ORTIZ. Record#: [id number] Birthdate: 1970 Age/Sex: 53 / F Location: [facility] Attending Dr: Ordering Physician: Date of Service: Procedure(s): Accession Number(s): cc: ~ CT scan of the abdomen and pelvis with intravenous contrast (axial sections with sagittal and coronal reformats) April 04, 2024 at 0214 hours Clinical History: Abdominal pain. Comparison: CT of February 15, 2024. Findings: The lung bases are clear. The pancreas, spleen, and adrenals are unremarkable. Bilateral nonobstructing kidney stones. Right renal pelvis stone measuring 0.7 cm associated with right mild hydronephrosis. Right renal simple cyst. Irregular liver margins. Gallbladder wall thickening associated with peripheral edema. No evidence of bowel obstruction. No evidence of appendicitis. There is no mesenteric or retroperitoneal adenopathy. The urinary bladder is nondistended, limited evaluation. There is no free fluid or free air. Degenerative changes of the imaged portions of the spine. No acute fractures. The portal vein is patent. The uterus and ovaries are within normal limits. Small collection along the right external genitalia measuring 3.7 x 2.4 cm. Anterior abdominal wall skin thickening associated with mild subcutaneous fat stranding. Recanalized periumbilical vein. Gastroesophageal varices. Impression: 1. Right renal pelvis stone associated with mild right hydronephrosis. 2. Bilateral nonobstructing nephrolithiasis. 3. Cirrhosis associated with recanalized periumbilical vein and gastroesophageal varices. 4. Possible acute cholecystitis. 5. Small collection along the right external genitalia. Please, correlate with physical exam, possibly abscess. 6. Possible anterior abdominal wall panniculitis. Please, correlate clinically. Discussion Details: Results verbally communicated to : Dr. Conklin at 04:04 AM 04/04/2024 Report Electronically Signed By: Julien Duval 04/04/2024 4:07:47 AM Medications / Prescriptions Medications or Prescriptions considered but not ordered:: none Medication administrations:: Medication Administration History Discontinued Medications Hydromorphone HCl (Hydromorphone Inj 2 Mg/Ml Vial) 1 mg IVP X1 ONE Stop: 04/04/24 02:05 Last Admin: 04/04/24 02:46 Dose: 1 mg Documented By: ACE Ondansetron HCl (Ondansetron Odt 4 Mg Tabrap) 4 mg PO X1 ONE; Protocol Stop: 04/04/24 00:16 Last Admin: 04/04/24 00:27 Dose: 4 mg Documented By: KF Ondansetron HCl (Ondansetron Inj 2 Mg/Ml Inj 2 Ml) 4 mg IV X1 ONE; Protocol Stop: 04/04/24 02:40 Last Admin: 04/04/24 02:46 Dose: 4 mg Documented By: ACE Oxycodone/Acetaminophen (Oxycodone/Apap 5/325 Tablet) 1 tab PO X1 ONE Stop: 04/03/24 23:21 Last Admin: 04/03/24 23:51 Dose: 1 tab Documented By: KG see above Consultations Consultation(s) initiated? (list below): No Diagnosis Differential diagnosis abdominal pain: acute appendicitis and other (exacerbation of chronic pain, narcotic withdrawal) Most likely diagnosis given after review of the tests above:: see below Admission Indicated Admission indicated?: not indicated Admission Request Was there a request for admission?: No Disposition Plan Disposition Plan: Discharge Discharge Attestation Discharge Attestation: The patient and all family members were given an opportunity to ask questions and understood the discharge instructions. Discharge instructions specifically effects, indications for sooner follow up or return to the emergency department, and the expected course of current diagnosis. Patient condition: Stable Discharge Plan Plan Patient Disposition: HOME (Self Care) Disposition Comment: Stable for discharge Patient condition on transfer: Stable Prescriptions/Referrals Prescriptions/Med Rec: No Action pantoprazole 40 mg tablet,delayed release (DR/EC) 40 mg PO QDAY Qty: 30 0RF lactulose 20 gram/30 mL Solution 30 g PO TID 30 Days Qty: 4050 1RF methocarbamol 750 mg Tablet 750 mg PO BID lidocaine HCl [Lidocaine Viscous] 2 % Solution 5 ml PO 6 TIMES DAILY PRN (Reason: Pain) ergocalciferol (vitamin D2) [Vitamin D2] 1,250 mcg (50,000 unit) Capsule 1,250 mcg PO QWEEK oxycodone 5 mg tablet 5 mg PO Q12H PRN (Reason: Pain) Patient Comments: TAKE 1 TABLET BY MOUTH EVERY 12 HOURS NEEDED FOR PAIN furosemide 40 mg tablet 40 mg PO QDAY Patient Comments: TAKE 1 TABLET BY MOUTH DAILY cholestyramine (with sugar) 4 gram powder in packet 4 g PO BID Qty: 60 0RF Rx Instructions: administer w/meal; avoid other meds within 1hr before or 4-6hr after dose sulfamethoxazole-trimethoprim [Bactrim DS] 800-160 mg tablet 1 tab PO BID 7 Days Qty: 14 0RF Xifaxan 550 mg tablet 550 mg PO BID Patient Comments: TAKE 1 TABLET BY MOUTH TWICE A DAY FOR 1 MONTH midodrine 10 mg tablet 10 mg PO TID Patient Comments: PLEASE SEE ATTACHED FOR DETAILED DIRECTIONS ferrous sulfate 325 mg (65 mg iron) tablet 325 mg PO DAILY Patient Comments: TAKE 1 TABLET BY MOUTH DAILY WITH ORANGE JUICE. -DO NOT GIVE CAFFEINE Referrals: Megan Moya PA-C [Primary Care Provider] - In 1 week Problem List Clinical Impression: Abdominal pain Patient/Caregiver Discharge Instructions Discharge Activity: activity as tolerated Education Materials: Abdominal Pain Additional Instructions: Please return to the emergency department if you have any worsening or any further medical problems. Otherwise you should follow-up with your primary care doctor within the next several days. Print Language: Emirati Stand Alone Forms: [employer] Award Info., Patient Portal Info Letter
[2024-04-04 02:00] LABS: Collection Type, Urine Clean Catch
[2024-04-04 02:04] LABS: Bilirubin,Urine Negative (Negative); Blood,Urine Negative (Negative); Clarity,Urine Clear (Clear/Hazy); Color,Urine Lt-Yellow (Lt Yel-Yel); Glucose, Urine Negative (Negative); Ketones,Urine Negative (Negative); Leukocyte Esterase,Urine Negative (Negative); Nitrite,Urine Negative (Negative); Protein,Urine Negative (Neg - Trace); RBC,Urine < 1 /hpf (0-3); Specific Gravity,Urine 1.014 (1.001-1.035); Squamous Epithelial Cell,Urine < 1 /hpf (0-5); Urobilinogen,Urine Negative mg/dL (0.0-1.0); WBC,Urine 4 /hpf (0-5)
[2024-04-04 02:27] LABS: Ammonia 212 uMol/L (11-32)
[2024-04-04] MEDS: HYDROmorphone INJ 2 MG/ML VIAL 1 MG IVP (02:46)
[2024-04-04] MEDS: ONDANSETRON INJ 2 MG/ML INJ 2 ML 4 MG IV (02:46)
--- NOTE | 2024-04-04 04:08 | PRELIM_ITS ---
CT scan of the abdomen and pelvis with intravenous contrast (axial sections with sagittal and coronal reformats) April 04, 2024 at 0214 hours Clinical History: Abdominal pain. Comparison: CT of February 15, 2024. Findings: The lung bases are clear. The pancreas, spleen, and adrenals are unremarkable. Bilateral nonobstructing kidney stones. Right renal pelvis stone measuring 0.7 cm associated with right mild hydronephrosis. Right renal simple cyst. Irregular liver margins. Gallbladder wall thickening associated with peripheral edema. No evidence of bowel obstruction. No evidence of appendicitis. There is no mesenteric or retroperitoneal adenopathy. The urinary bladder is nondistended, limited evaluation. There is no free fluid or free air. Degenerative changes of the imaged portions of the spine. No acute fractures. The portal vein is patent. The uterus and ovaries are within normal limits. Small collection along the right external genitalia measuring 3.7 x 2.4 cm. Anterior abdominal wall skin thickening associated with mild subcutaneous fat stranding. Recanalized periumbilical vein. Gastroesophageal varices. Impression: 1. Right renal pelvis stone associated with mild right hydronephrosis. 2. Bilateral nonobstructing nephrolithiasis. 3. Cirrhosis associated with recanalized periumbilical vein and gastroesophageal varices. 4. Possible acute cholecystitis. 5. Small collection along the right external genitalia. Please, correlate with physical exam, possibly abscess. 6. Possible anterior abdominal wall panniculitis. Please, correlate clinically. Discussion Details: Results verbally communicated to : Dr. Conklin at 04:04 AM 04/04/2024 Report Electronically Signed By: Julien Duval 04/04/2024 4:07:47 AM [EST]
[2024-04-04 04:22] VITALS: BP 93/53; PULSE 50; RESP 16; O2SAT 95
[2024-04-04 04:57] VITALS: BP 99/65; PULSE 48; RESP 16; TEMP 36.7; O2SAT 97
== END 2024-04-04 05:10 | disposition home or self-care (01) ==
PROVIDERS: Physician Assistant; Emergency Provider Emergency Medicine; PCP Physician Assistant
DX: R10.9 Unspecified abdominal pain (principal); K74.60 Unspecified cirrhosis of liver; E11.9 Type 2 diabetes mellitus without complications
CPT/HCPCS: 36415; 74177; 80053; 81001; 82140; 83690; 85025; 85610; 85730; 96374; 96375; 99285; A4649; J2405; J3490; Q0162; Q9967; A9270

== ENCOUNTER 2024-04-05 19:47 | Inpatient (IN) | payer MEDICAID, SELFPAY ==
[2024-04-05 20:51] VITALS: BP 113/69; PULSE 54; RESP 14; TEMP 37.2; O2SAT 99
--- NOTE | 2024-04-05 21:13 | EKG_ITS ---
[facility] Test Date: 2024-04-05 Pat Name: SHANNON ORTIZ Department: Room: - Gender: Female [employer] Chief: : 1970 Requested By: Darryl Griggs Order Number: [id number] Reading MD: Darryl Griggs Measurements Intervals [place] Rate: 45 P: 16 AK: 129 QRS: 14 QRSD: 85 T: 14 QT: 498 QTc: 432 Interpretive Statements SINUS BRADYCARDIA LOW QRS VOLTAGE IN PRECORDIAL LEADS [QRS DEFLECTION < 1.0 mV IN CHEST LEADS] Compared to ECG 03/14/2024 20:03:04 Low QRS voltage now present Short AK interval no longer present Myocardial infarct finding no longer present /store/S0/[id number]/ecg/[id number].pdf
--- NOTE | 2024-04-05 21:14 | EDRME_ITS ---
Rapid Medical Screening Exam [facility] Arrival date/time: 04/05/24 19:47 53F with history of alcoholic cirrhosis presents to ED with 1 day of lethargy and confusion. Patient hasn't been taking her meds including lactulose as prescribed. Chief Complaint: Altered Mental Status Vital signs: Vital Signs Temperature 99 F 04/05/24 20:51 Pulse Rate 54 L 04/05/24 20:51 Respiratory Rate 14 04/05/24 20:51 Blood Pressure 113/69 04/05/24 20:51 Pulse Oximetry (%) 99 04/05/24 20:51 Oxygen Delivery Method Room Air 04/05/24 20:51
[2024-04-05 21:52] LABS: Basophils # (Auto) 0.1 Thou/mm3 (0.0-0.2); Basophils % (Auto) 2 % (0-2.5); Eosinophils # (Auto) 0.3 Thou/mm3 (0.0-0.5); Eosinophils % (Auto) 5 % (0-10); Hematocrit 35.8 % (36.0-46.0); Hemoglobin 12.5 g/dL (12.0-16.0); Immature Granulocytes % (Auto) 1 % (0-0); Immature Granulocytes Auto 0.03 Thou/mm3 (0.00-0.00); Lymphocytes # (Auto) 2.3 Thou/mm3 (1.0-4.8); Lymphocytes % (Auto) 36 % (10-50); Mean Corpuscular HGB Conc 34.9 g/dl (31.0-37.0); Mean Corpuscular Hemoglobin 35.7 pg (25.0-35.0); Mean Corpuscular Volume 102 fL (80-100); Monocytes # (Auto) 0.6 Thou/mm3 (0.0-0.8); Monocytes % (Auto) 9 % (0-12); Neutrophils # (Auto) 3.1 Thou/mm3 (1.8-7.7); Neutrophils % (Auto) 48 % (37-80); Nucleated Red Blood Cell % 0 /100 WBC (0); RDW Standard Deviation 59.7 fL (36.4-46.3); White Blood Count 6.4 Thou/mm3 (3.6-11.0)
[2024-04-05 22:05] LABS: Ammonia 118 uMol/L (11-32)
[2024-04-05 22:06] LABS: Alanine Aminotransferase 18 U/L (10-49); Albumin, Serum 2.6 gm/dL (3.5-5.0); Albumin/Globulin Ratio 0.7 (1.2-2.2); Alkaline Phosphatase 130 U/L (46-116); Anion Gap 7 (7-16); Aspartate Amino Transferase 44 U/L (0-34); BUN/Creatinine Ratio 12 Ratio (12-20); Bilirubin,Total 6.3 mg/dL (0.3-1.2); Blood Urea Nitrogen 11 mg/dL (9-23); Calcium 8.7 mg/dL (8.3-10.6); Calcium (Corrected) 9.8 mg/dL (8.5-10.1); Carbon Dioxide 22.8 mMol/L (20.0-31.0); Chloride 109 mMol/L (98-107); Creatinine (Component) 0.9 mg/dL (0.6-1.3); Glucose 96 mg/dL (74-106); Osmolality,Calculated 276 (275-295); Potassium 5.6 mMol/L (3.4-5.1); Sodium 139 mMol/L (136-145); Total Protein 6.6 gm/dL (5.7-8.2); Troponin I < 0.020 ng/mL (0.0-0.045); eGFR > 60 See Note
[2024-04-05 22:30] LABS: Platelet Count 14 Thou/mm3 (140-440)
[2024-04-05 22:36] LABS: Slide Review Platelets confirmed
[2024-04-05 22:53] VITALS: BP 117/57; PULSE 43; RESP 12; O2SAT 98
[2024-04-05 23:00] VITALS: BP 90/45; PULSE 43; RESP 11; O2SAT 98
[2024-04-05 23:08] VITALS: BP 110/62; PULSE 46; RESP 20; O2SAT 98
--- NOTE | 2024-04-05 23:11 | PD.EDAMS ---
Altered Mental Status RME/HPI General Chief Complaint: Altered Mental Status Stated Complaint: AMS, POSSIBLE AMMONIA LEVEL HIGH Arrival date/time: 04/05/24 19:47 RME / HPI RME / HPI narrative: 04/05/24 19:47 53F with history of alcoholic cirrhosis presents to ED with 1 day of lethargy and confusion. Patient hasn't been taking her meds including lactulose as prescribed. ------ Dr. Conklin?s Main ED Evaluation: 53yo female with a history of liver cirrhosis, end stage liver disease, diabetes, esophageal varices s/p band ligation, previous admissions for GIB, chronic back pain presents to the ED for a chief complaint of lethargy and AMS x this morning. states the patient has been altered since this morning. He states the patient has not had a bowel movement yesterday or today. Full ROS is unobtainable due to the patient's AMS. Related Data Home Medications ?Medication ?Instructions ?Recorded ?Confirmed midodrine 10 mg tablet 10 mg PO TID 01/12/24 03/15/24 rifaximin 550 mg tablet (Xifaxan) 550 mg PO BID 01/12/24 03/15/24 ferrous sulfate 325 mg (65 mg 325 mg PO DAILY 01/22/24 03/15/24 iron) tablet ergocalciferol (vitamin D2) 1,250 1,250 mcg PO QWEEK 02/06/24 03/15/24 mcg (50,000 unit) capsule (Vitamin D2) lidocaine HCl 2 % mucosal solution 5 ml PO 6 TIMES DAILY PRN Pain 02/06/24 02/06/24 (Lidocaine Viscous) methocarbamol 750 mg tablet 750 mg PO BID 02/06/24 03/15/24 furosemide 40 mg tablet 40 mg PO QDAY 03/15/24 03/15/24 oxycodone 5 mg tablet 5 mg PO Q12H PRN Pain 03/15/24 03/15/24 Previous Rx's ?Medication ?Instructions ?Recorded pantoprazole 40 mg tablet,delayed 40 mg PO QDAY #30 tabs 10/15/23 release lactulose 20 gram/30 mL oral 30 g (45 mL) PO TID 30 days #4,050 01/31/24 solution mL cholestyramine (with sugar) 4 gram 4 g PO BID #60 ea 03/17/24 powder for susp in a packet sulfamethoxazole 800 1 tab PO BID 7 days #14 tabs 04/01/24 mg-trimethoprim 160 mg tablet (Bactrim DS) Allergies Allergy/AdvReac Type Severity Reaction Status Date / Time latex Allergy Severe Hives Verified 03/14/24 19:18 Review of Systems Review of Systems Systems Reviewed: All systems reviewed, normal except as documented Past Medical History Past Medical History NEUROLOGIC: Positive Neurological Disorders, Migraine and Spinal Cord Injury; Negative Seizures CARDIAC: Positive Hypotension; Negative Cardiac Disorders or Congestive Heart Failure RESPIRATORY: Negative Chronic Obstructive Pulmonary Disease (COPD) or Asthma GASTROINTESTINAL: Positive Gastrointestinal Disorders, Cirrhosis, Gastrointestinal Bleed and Esophageal Varices GENITOURINARY: Negative Renal Disease REPRODUCTIVE: Positive Endometriosis and Previous Pregnancies MUSCULOSKELETAL: Positive Musculoskeletal Disorders ENDOCRINE: Positive Endocrine Disorders and Diabetes Mellitus Type 2; Negative Diabetes Mellitus Type 1 HEMATOLOGIC: Positive Blood Disorders and Anemia; Negative Sickle Cell Disease PSYCHO/SOCIAL: Positive Depression and Anxiety OTHER HISTORY: Positive Blood Transfusions; Negative Autoimmune Disease, Blood Transfusion Reaction, Anesthesia Reactions or Cancer Family History FAMILY HISTORY: Positive Family Psychiatric Problems and Family Cancer; Negative Family Respiratory Disorders, Family Cardiac Disorders, Family Gastrointestinal Problems, Family Surgery or Family Anesthesia Reaction Surgical History SURGICAL: Positive Section Social History SMOKING STATUS: Never smoker SECOND HAND EXPOSURE: No SUBSTANCE USE: marijuana ED Exam Narrative Physical exam: GENERAL APPEARANCE: somnolent, easily arousable to pain stimuli, shakes head yes or no, nonverbal, well-developed, well-nourished, no acute distress VITALS: All vitals were reviewed and the pulse ox is 99% on room air, which is normal according to my interpretation. HEENT: Normocephalic, atraumatic; pupils equal to 4 mm, round, reactive to light; EOMI; mucous membranes pink, moist; oropharynx clear NECK: Supple LUNGS: CTABL; no wheezes, no rales, no rhonchi HEART: Regular rate, regular rhythm; normal S1, S2; no murmurs ABDOMEN: non distended; normal BS; soft, no tenderness, no guarding, no rebound; no masses, no organomegaly, no hernia BACK: no CVA tenderness EXTREMITIES: atraumatic; no edema NEUROLOGIC: somnolent but easily arousable to pain stimuli; cranial nerves II-XII grossly intact; no focal sensory or motor deficits SKIN: warm, dry, normal color; no rashes Course Quality Measures none Orders Category Date Time Status Admit to Inpatient Status Routine Admission 04/05/24 23:36 Active Patient Condition Routine Admission 04/05/24 23:36 Ordered Blood glucose [Bedside Blood Glucose] NOW Care 04/05/24 21:13 Active Tag Press Operator NOW Care 04/05/24 23:11 Active Continuous Pulse Oximetry NOW Care 04/05/24 23:10 Active EKG (ED ONLY) *Do not use* NOW Care 04/05/24 21:13 Completed In and Out Catheter X1 Care 04/05/24 23:10 Active Insert IV NOW Care 04/05/24 23:11 Active Notify provider NEEDED Care 04/05/24 23:36 Active Sequential Compression Device QSHIFT Care 04/05/24 23:36 Active Transfuse,blood/blood products NOW Care 04/05/24 23:20 Active Diet Cardiac Diet 04/06/[address] head/brain wo con Stat Exams 04/05/24 23:12 Ordered EKG (ED Only) Stat Exams 04/05/24 21:13 Draft Acetaminophen Stat Lab 04/05/24 21:35 Results Alcohol, Blood Medical Stat Lab 04/05/24 21:35 Results Ammonia Stat Lab 04/05/24 21:35 Completed Arterial Blood Gas Stat Lab 04/05/24 23:11 Ordered Basic Metabolic Panel AM DRAW Lab 04/06/24 05:00 Ordered Basic Metabolic Panel AM DRAW Lab 04/07/24 05:00 Ordered Basic Metabolic Panel AM DRAW Lab 04/08/24 05:00 Ordered CBC AM DRAW Lab 04/06/24 05:00 Ordered CBC AM DRAW Lab 04/07/24 05:00 Ordered CBC AM DRAW Lab 04/08/24 05:00 Ordered CBC Stat Lab 04/05/24 21:35 Completed Comprehensive Metabolic Panel Stat Lab 04/05/24 21:35 Results Drug Screen,Urine Stat Lab 04/05/24 23:12 Ordered HCG Qualitative,Urine Stat Lab 04/05/24 23:12 Ordered Magnesium Stat Lab 04/05/24 21:35 Results Partial Thromboplastin Time Stat Lab 04/05/24 21:38 Completed Prothrombin Time with INR Stat Lab 04/05/24 21:38 Completed Salicylate Stat Lab 04/05/24 21:35 Results Thyroid Stimulating Hormone Stat Lab 04/05/24 21:35 Results Troponin I Stat Lab 04/05/24 21:35 Results Type and Screen Stat Lab 04/05/24 23:20 Ordered Urinalysis Stat Lab 04/05/24 23:12 Ordered Albumin 25% 25gm Ivpb qday Med 04/05/24 23:38 Ordered Albumin Human 25% Ivpb [Albuminar-25 Ivpb] 25 gm in 100 ml IV QDAY Lactulose Syrup [Enulose Syrup] Med 04/05/24 23:40 Ordered 30 gm PO TID Midodrine [Proamatine] Med 04/06/24 06:00 Ordered 10 mg PO TID Sodium Chloride 0.9% 1000 ml [Ns] 1,000 ml Med 04/05/24 23:10 Active IV 1,000 mls/hr rifaximin [Xifaxan] Med 04/06/24 09:00 Ordered 550 mg PO BID Code Status Routine Oth 04/05/24 23:36 Ordered Vital Signs Vital signs: Vital Signs Temperature 99 F 04/05/24 20:51 Pulse Rate 54 L 04/05/24 20:51 Respiratory Rate 14 04/05/24 20:51 Blood Pressure 113/69 04/05/24 20:51 Pulse Oximetry (%) 99 04/05/24 20:51 Oxygen Delivery Method Room Air 04/05/24 20:51 Altered Mental Status MDM Narrative MDM Narrative:: Scribe Attestation: 04/05/24 Kaley Enriquez am scribing for and in the presence of Dr. Conklin. Patient data External records reviewed:: [facility] previous records (Per chart review, patient was admitted here on 04/04/24 for abdominal pain.) Clinical information provided by:: spouse Social determinants that could affect healthcare access:: none Patient has the following chronic illnesses:: liver cirrhosis, end stage liver disease, diabetes, esophageal varices s/p band ligation, previous admissions for GIB, chronic back pain How is presenting disease/condition affected by chronic disease/condition?: exacerbated by Evaluation data The following diagnostics were reviewed and interpreted by me:: lab results and EKG tracing(s) Lab and/or radiology exams considered but not ordered:: none Interpretation Summary: WBC count is normal at 6.4, HnH is 12.5/35.8, Platelets are low at 14, PT and INR are elevated, Potasisum is elevated at 5.6, Total Bilirubin is chronically elevated, Ammonia is elevated at 118, according to my interpretation. EKG done at 2117, sinus bradycardia, rate of 45, normal axis, no ectopy, no acute ischemia, according to my interpretation. Medications / Prescriptions Medications or Prescriptions considered but not ordered:: none Medication administrations:: Medication Administration History Sodium Chloride (Ns) 1,000 mls @ 1,000 mls/hr IV .Q1H ONE Stop: 04/06/24 00:09 Last Admin: 04/05/24 23:32 Dose: 1,000 mls/hr Documented By: LISA see above Consultations Consultation(s) initiated? (list below): Yes Consultation #1 (Physician, Specialty, Details): Discussed case with [Dr. Gutiérrez] from Hospitalist service regarding admission. Discussed patients ED course, exam findings, labs, and radiology results. The Hospitalist [agrees] to accept the patient for admission. Time: 23:20 Diagnosis Differential diagnosis altered mental status: other (hepatic encephalopathy, ICH, encephalitis, hypertensive encephalopathy, UTI) Most likely diagnosis given after review of the tests above:: see below Admission Indicated Admission indicated?: indicated Admission Request Was there a request for admission?: Yes Admission Attestation Admission request attestation: Discussed case with [] from Hospitalist service regarding admission. Discussed patients ED course, exam findings, labs, and radiology results. The Hospitalist [agrees,declines] to accept the patient for admission. Disposition Plan Disposition Plan: Admit Discharge Plan Plan Patient Disposition: Admit Acute Care w/in Hospital Disposition Comment: Admitted to Dr. Gutiérrez Prescriptions/Referrals Prescriptions/Med Rec: No Action pantoprazole 40 mg tablet,delayed release (DR/EC) 40 mg PO QDAY Qty: 30 0RF lactulose 20 gram/30 mL Solution 30 g PO TID 30 Days Qty: 4050 1RF methocarbamol 750 mg Tablet 750 mg PO BID lidocaine HCl [Lidocaine Viscous] 2 % Solution 5 ml PO 6 TIMES DAILY PRN (Reason: Pain) ergocalciferol (vitamin D2) [Vitamin D2] 1,250 mcg (50,000 unit) Capsule 1,250 mcg PO QWEEK oxycodone 5 mg tablet 5 mg PO Q12H PRN (Reason: Pain) Patient Comments: TAKE 1 TABLET BY MOUTH EVERY 12 HOURS NEEDED FOR PAIN furosemide 40 mg tablet 40 mg PO QDAY Patient Comments: TAKE 1 TABLET BY MOUTH DAILY cholestyramine (with sugar) 4 gram powder in packet 4 g PO BID Qty: 60 0RF Rx Instructions: administer w/meal; avoid other meds within 1hr before or 4-6hr after dose sulfamethoxazole-trimethoprim [Bactrim DS] 800-160 mg tablet 1 tab PO BID 7 Days Qty: 14 0RF Xifaxan 550 mg tablet 550 mg PO BID Patient Comments: TAKE 1 TABLET BY MOUTH TWICE A DAY FOR 1 MONTH midodrine 10 mg tablet 10 mg PO TID Patient Comments: PLEASE SEE ATTACHED FOR DETAILED DIRECTIONS ferrous sulfate 325 mg (65 mg iron) tablet 325 mg PO DAILY Patient Comments: TAKE 1 TABLET BY MOUTH DAILY WITH ORANGE JUICE. -DO NOT GIVE CAFFEINE Referrals: No Primary/Family,Physician [Primary Care Provider] - In 1 week Problem List Clinical Impression: Bradycardia, Hepatic encephalopathy, Thrombocytopenia Patient/Caregiver Discharge Instructions Print Language: Danish Stand Alone Forms: [facility] Award Info., Patient Portal Info Letter
--- NOTE | 2024-04-05 23:12 | XR_ITS ---
Examination: CT brain head without contrast. 2-D sagittal coronal reconstructions Date and time of exam:April 06, 2024 0026 hours INDICATIONS: Altered mental status lethargy onset today COMPARISON: March 15, 2024 CTDI: vol (mGy):50.4 DLP: (mGycm):936 Technique: Multiple CT axial sections of the brain have been obtained, 5 mm slice thickness. Contrast has not been administered. 2-D sagittal, coronal reconstructions have been obtained Low dose protocols were performed. One or more of the following dose reduction techniques were used; automated exposure control, adjustment of the mA and/or KV according to patient size, use of iterative reconstruction technique. Findings: No significant ventricular enlargement. Intra-axial or extra-axial hemorrhage density is not seen. No mass effect or midline shift Basal cisterns are not remarkable. Fourth ventricle is midline. Cranial vault intact. Impression: Images are degraded by patient motion Negative for acute hemorrhage, mass effect or midline shift Advise clinical correlation follow-up accordingly
[2024-04-05 23:29] LABS: Partial Thromboplastin Time 34.5 Seconds (22.0-36.0); Prothrombin Time 21.1 Seconds (9.0-12.2)
[2024-04-05] MEDS: SODIUM CHLORIDE 0.9% 1000 ML 1,000 ML IV (23:32)
[2024-04-05 23:41] LABS: Acetaminophen < 2.0 mcg/mL (10.0-20.0); Alcohol, Blood Medical < 3.0 mg/dL (0-10.0); Magnesium 2.1 mg/dL (1.6-2.6); Salicylate < 3.0 mg/dL; Thyroid Stimulating Hormone 1.21 uIU/mL (0.55-4.78)
--- NOTE | 2024-04-05 23:47 | PD.RESHP ---
Documentation for date of: 04/05/24 HPI History of Present Illness Chief complaint: Altered mental status History of present illness: Ms. Knight is a 54-year-old female with past medical history of recurrent admissions related to end-stage liver disease secondary to alcoholic liver cirrhosis, hepatic encephalopathy, esophageal varices status post banding and type 2 diabetes mellitus who presented to [facility] emergency department on 04/05/2024 with a chief complaint of lethargy and altered mental status this morning. Patient has been assisted in providing most of the history, patient alert and oriented to self, patient is significantly lethargic, mildly disoriented, somnolent. states that patient has been altered since morning, reports she has not had a bowel movement yesterday or today, per patient's mother assists with medication administration and he is unsure if patient has been compliant with medications. He does report that patient's following up with [facility] for possible liver transplantation. Currently denies any blood in stool or blood in vomit, reports patient has been feeling nauseous, no episodes of emesis. Patient has minimal abdominal tenderness on evaluation, otherwise denies abdominal pain. ED Course: ED Vitals: On presentation blood pressure 113/69, pulse 54, respiratory rate 14, temp 99, O2 sat 99 on room air ED Labs: ED labs significant for RBC 3.5, hematocrit 35.8, MCV 102, MCH 35.7, platelet 14,000, PT 21.1, INR 2.0, potassium 5.6, chloride 109, total bilirubin 6.3, AST 44, alk phos 130, ammonia 118, albumin 2.6, globulin 4.0 ED Imaging: EKG in ED significant for sinus bradycardia, NC 129, QTc 432 ED Treatment: Patient was given 1 L NS bolus in ED Review of Systems Review of Systems ROS Unobtainable: unobtainable due to mental status Past Medical History Past Medical History Comments PMH COMMENT: PMH: Positive for end-stage liver disease secondary to alcoholic liver cirrhosis, hepatic encephalopathy, esophageal varices status post banding, chronic back pain and type 2 diabetes mellitus PSHx: Appendectomy, 2 C-sections, 2 laparoscopic procedures for endometriosis Allergies: Latex (hives) Social history: -Smoking: Denies -Alcohol Use: Denies -Illicit Drug Use: Denies Family History: Denies pertinent family history Exam Vital Signs Temp Pulse Resp BP Pulse Ox O2 Del Method 99 F 54 L 14 113/69 99 Room Air 04/05/24 20:51 04/05/24 20:51 04/05/24 20:51 04/05/24 20:51 04/05/24 20:51 04/05/24 20:51 Narrative Exam Physical Exam General: Awake and in no acute distress. Conversational and non-toxic appearing. HEENT: Normocephalic, atraumatic, mucous membranes moist. Heart: Regular rate and rhythm, no murmurs. Lungs: Clear to auscultation with no wheezing or crackles. Abdomen: Soft, distended, ascitic abdomen, nontender, positive bowel sounds. ?No guarding or rebound tenderness. Neurologic: Alert and oriented x3, no gross neurological deficit, and patient able to move all 4 extremities. Extremities: No edema. Skin: No rash or ecchymoses. Results: Labs 04/05/24 21:35 04/05/24 21:35 Labs: Short CBC 04/05/24 Range/Units 21:35 WBC 6.4 (3.6-11.0) Thou/mm3 Hgb 12.5 (12.0-16.0) g/dL Hct 35.8 L (36.0-46.0) % Plt Count 14 L* D (140-440) Thou/mm3 BMP 04/05/24 21:35 Sodium 139 Potassium 5.6 H D Chloride 109 H Carbon Dioxide 22.8 BUN 11 Creatinine 0.9 Glucose 96 D Calcium 8.7 Cardiac Enzymes 04/05/24 Range/Units 21:35 Troponin I < 0.020 (0.0-0.045) ng/mL Liver Function 04/05/24 Range/Units 21:35 Total Bilirubin 6.3 H (0.3-1.2) mg/dL AST 44 H (0-34) U/L ALT 18 (10-49) U/L Alkaline Phosphatase 130 H (46-116) U/L Albumin 2.6 L (3.5-5.0) gm/dL Quality Measures Quality Measures none Medications Home Medications and Allergies Home Medications ?Medication ?Instructions ?Recorded ?Confirmed ?Type midodrine 10 mg tablet 10 mg PO TID 01/12/24 03/15/24 History rifaximin 550 mg tablet (Xifaxan) 550 mg PO BID 01/12/24 03/15/24 History ferrous sulfate 325 mg (65 mg 325 mg PO DAILY 01/22/24 03/15/24 History iron) tablet ergocalciferol (vitamin D2) 1,250 1,250 mcg PO QWEEK 02/06/24 03/15/24 History mcg (50,000 unit) capsule (Vitamin D2) lidocaine HCl 2 % mucosal solution 5 ml PO 6 TIMES DAILY PRN Pain 02/06/24 02/06/24 History (Lidocaine Viscous) methocarbamol 750 mg tablet 750 mg PO BID 02/06/24 03/15/24 History furosemide 40 mg tablet 40 mg PO QDAY 03/15/24 03/15/24 History oxycodone 5 mg tablet 5 mg PO Q12H PRN Pain 03/15/24 03/15/24 History Allergies Allergy/AdvReac Type Severity Reaction Status Date / Time latex Allergy Severe Hives Verified 03/14/24 19:18 Visit Medications Sodium Chloride (Ns) 1,000 mls @ 1,000 mls/hr IV .Q1H ONE Stop: 04/06/24 00:09 Last Admin: 04/05/24 23:32 Dose: 1,000 mls/hr Albumin Human (Albuminar-25 Ivpb) 25 gm in 100 mls @ 100 mls/hr IV QDAY [facility] Stop: 04/08/24 23:37 Lactulose (Lactulose Syrup 20 Gm/30 Ml Udc) 30 gm PO TID [facility]; Protocol Stop: 05/05/24 23:39 Midodrine (Midodrine 5 Mg Tablet) 10 mg PO TID [facility] Stop: 05/06/24 05:59 Pantoprazole Sodium (Pantoprazole Inj 40 Mg Vial) 40 mg IVP QDAY [facility] Stop: 05/06/24 08:59 Rifaximin (Rifaximin 550 Mg Tablet) 550 mg PO BID [facility] Stop: 04/13/24 08:59 Assessment & Plan Plan Assessment and Plan: Summary: Ms. Knight is a 54-year-old female with past medical history of recurrent admissions related to end-stage liver disease secondary to alcoholic liver cirrhosis, hepatic encephalopathy, esophageal varices status post banding and type 2 diabetes mellitus who presented to [facility] emergency department on 04/05/2024 with a chief complaint of lethargy and altered mental status this morning. #Hepatic encephalopathy, grade 2 #Hyperammonemia #Decompensated cirrhosis #Alcohol-associated liver disease #Thrombocytopenia #Hyperbilirubinemia #Transaminitis Patient has grade 2 hepatic encephalopathy currently on presentation, has been assisted with providing history, patient's mother assists with medication adherence, per he is unsure if patient is compliant with medication, last bowel movement was about 2 days ago per . Patient does have decompensated cirrhosis, reports history of alcohol use in the past, currently abstaining from alcohol, patient reports following with [facility] for possible liver transplant. Meld?Na score 22, 7 to 10% estimated 90-day mortality, Child [place] score 11 points, child class C, life expectancy 1 to 3 years Patient's INR 2.0, bilirubin 6.3, AST 44, ammonia 118 platelet 14,000 on presentation Plan: -Lactulose 30 three times daily -Rifaximin twice daily -Keep potassium more than 4 to improve ammonia clearance via kidneys -Resume midodrine 10 p.o. 3 times daily -IV albumin daily -IV Protonix 40 daily -Ordered 1 unit platelets, transfuse -Follow CBC in a.m. #Hyperkalemia Potassium 5.6 on presentation, was given 1 L NS bolus in ED Plan: -Follow potassium in a.m. #Macrocytosis Hemoglobin 12.5, MCV 102 on presentation, possibly in setting of liver disease DVT prophylaxis: SCD GI prophylaxis: IV Protonix Diet: Cardiac Lines: Peripheral IV Code status: Full code Case discussed with Attending Dr. Gutiérrez. Jero Wilkins PGY1 Disclaimer: This note was dictated by speech recognition. Minor errors in tripe cooker may be present due to voice recognition software. Attending Provider Attestation/Addendum Pt was evaluated and plan formulated together with the housestaff team. I have reviewed the residents note above and agree with most of its content. Please refer to the residents note for additional details.
[2024-04-06] VITALS (24 sets, daily range): BP systolic 89–121; BP diastolic 47–82; PULSE 47–98; RESP 12–18; TEMP 36.1–36.7; O2SAT 93–100; BMI 31.3; BMI 31.5
[2024-04-06 01:11] LABS: Allen Test Performed/OK; Base Excess -1 (-3-3); HCO3 23 mEq/L (20-26); Inspired Oxygen, FIO2 21 %; O2 Saturation 98 % (91-98); PCO2 35 mmHg (32.0-48.0); PO2 93 mmHg (83-108); Puncture Site Right Radial; pH, Arterial 7.43 (7.35-7.45)
[2024-04-06] MEDS: ALBUMIN HUMAN 25% IVPB 25 GM/100 ML BTL IV ×2 (01:24→09:38)
[2024-04-06] MEDS: LACTULOSE SYRUP 20 GM/30 ML UDC 30 GM PO ×3 (01:25→14:26)
--- NOTE | 2024-04-06 02:27 | PC.NURSE ---
REPORT CALLED TO OSMANY VELASQUEZ. ALL QUESTIONS ASKED AND ANSWERED. PATIENT TRANSFERRED TO FLOOR WITH STAFF. PATIENT REMAINS ON ROOM AIR. NO DISTRESS NOTED AT TRANSFER. SPOUSE REMAINS AT BEDSIDE.
[2024-04-06] MEDS: ONDANSETRON INJ 2 MG/ML INJ 2 ML 4 MG IV (03:22)
--- NOTE | 2024-04-06 04:19 | PC.NURSE ---
Spoke to Vinny in blood bank,pts blood type is O positive and they release type B positive platelet, per Vinny its okay to administer.
[2024-04-06 05:08] LABS: Basophils % (Auto) 1 % (0-2.5); Eosinophils # (Auto) 0.1 Thou/mm3 (0.0-0.5); Eosinophils % (Auto) 4 % (0-10); Hemoglobin 8.9 g/dL (12.0-16.0); Immature Granulocytes % (Auto) 0 % (0-0); Immature Granulocytes Auto 0.01 Thou/mm3 (0.00-0.00); Lymphocytes % (Auto) 41 % (10-50); Mean Corpuscular HGB Conc 34.2 g/dl (31.0-37.0); Mean Corpuscular Hemoglobin 35.7 pg (25.0-35.0); Mean Corpuscular Volume 104 fL (80-100); Monocytes # (Auto) 0.2 Thou/mm3 (0.0-0.8); Monocytes % (Auto) 6 % (0-12); Neutrophils # (Auto) 1.2 Thou/mm3 (1.8-7.7); Neutrophils % (Auto) 48 % (37-80); Nucleated Red Blood Cell % 0 /100 WBC (0); Red Blood Count 2.49 Miln/mm3 (4.00-5.20)
[2024-04-06 05:10] LABS: Platelet Count 14 Thou/mm3 (140-440); Slide Review Platelets confirmed; White Blood Count 2.6 Thou/mm3 (3.6-11.0)
[2024-04-06] MEDS: MIDODRINE 5 MG TABLET 10 MG PO ×3 (05:11→21:32)
[2024-04-06 05:28] LABS: Anion Gap 8 (7-16); BUN/Creatinine Ratio 14 Ratio (12-20); Blood Urea Nitrogen 10 mg/dL (9-23); Calcium 8.8 mg/dL (8.3-10.6); Carbon Dioxide 21.7 mMol/L (20.0-31.0); Chloride 111 mMol/L (98-107); Creatinine (Component) 0.7 mg/dL (0.6-1.3); Estimated Creatinine Clearance 83.7 mL/min (>60); Glucose 113 mg/dL (74-106); Osmolality,Calculated 281 (275-295); Potassium 5.1 mMol/L (3.4-5.1); Sodium 141 mMol/L (136-145); eGFR > 60 See Note
--- NOTE | 2024-04-06 05:33 | PC.NURSE ---
MD Wilkins made aware of HR sustaining on 45 as the lowest,pt is asleep at this time. Pt has also a significant drop of hgb from 12 to 8.9 today, WBC 2.6 and platelet of 14, pt is ongoing platelet transfusion at this time. No new order made at this time,
[2024-04-06] MEDS: Magnesium Sulfate 2 GM Ivpb 2 GM/50 ML BAG IV (09:37)
[2024-04-06] MEDS: PANTOPRAZOLE INJ 40 MG VIAL IVP (09:39)
[2024-04-06] MEDS: rifaximin 550 MG TABLET PO ×2 (09:40→21:33)
[2024-04-06] MEDS: THIAMINE INJ 100 MG/ML VIAL 2 ML IVP (09:40)
[2024-04-06] MEDS: CYANOCOBALAMIN INJ 1,000 mCg/ML VIAL 1000 MCG IM (09:43)
[2024-04-06] MEDS: FOLIC ACID INJ 1 MG/0.2 ML IVP (09:48)
--- NOTE | 2024-04-06 14:05 | ESPR_ITS ---
Documentation for date of: 04/06/24 Subjective Subjective Interval history: Patient seen at bedside. She is a 54-year-old female with a past medical history of ESLD, secondary to alcoholic liver cirrhosis, hepatic encephalopathy, esophageal varices and hemorrhoids status post banding and type 2 diabetes who presented to the ED on 04/05/2024 with lethargy altered mental status. 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 At bedside today, patient is lethargic but oriented. On examination, has mild abdominal tenderness but not more distended than usual. Will continue lactulose and rifaximin, replete nutritional deficiencies and continue to monitor. Exam Vital Signs Temp Pulse Resp BP Pulse Ox O2 Del Method 97.0 F 50 L 14 114/63 98 Room Air 04/06/24 08:00 04/06/24 08:00 04/06/24 08:00 04/06/24 08:00 04/06/24 08:00 04/06/24 08:00 Narrative Exam GENERAL: AAOX3, lethargic NEURO: COLLECTOR OF AQUARIUM SPECIMENS grossly intact, moves extremities x4 HEENT: Moist mucosa. Eyes open, symmetrical, icteric CARDIO: No chest pain on palpation. Heart RRR, no obvious murmurs PULM: No noted coughing/dyspnea. Lungs CTA B/L GI: Abdomen soft,mildly distended, mildly tender to palpation. BSx4 URO/DONOR TECHNICIAN:: No further abnormalities noted. SKIN/MSK/EXT: Hyperpigmentation in skin Objective Labs 04/07/24 05:27 04/07/24 05:27 Labs: Laboratory Results - last 24 hr 04/05/24 04/05/24 04/06/24 21:35 21:38 00:05 WBC 6.4 RBC 3.50 L Hgb 12.5 Hct 35.8 L MCV 102 H MCH 35.7 H MCHC 34.9 RDW Std Deviation 59.7 H Plt Count 14 L* D Neut % (Auto) 48 Lymph % (Auto) 36 [place] % (Auto) 9 Eos % (Auto) 5 Baso % (Auto) 2 Neut # (Auto) 3.1 Lymph # (Auto) 2.3 [place] # (Auto) 0.6 Eos # (Auto) 0.3 Baso # (Auto) 0.1 Immature Gran # (Auto) 0.03 H Absolute Nucleated RBC 0.00 Immature Gran % 1 H Nucleated RBC % 0 PT 21.1 H INR 2.0 H APTT 34.5 Puncture Site ABG pH ABG pCO2 ABG pO2 ABG HCO3 ABG O2 Saturation ABG Base Excess FiO2 Sodium 139 Potassium 5.6 H D Chloride 109 H Carbon Dioxide 22.8 Anion Gap 7 BUN 11 Creatinine 0.9 Estim Creat Clear Calc Not Performed. eGFR > 60 BUN/Creatinine Ratio 12 Glucose 96 D Calculated Osmolality 276 Calcium 8.7 Corrected Calcium 9.8 Magnesium 2.1 Total Bilirubin 6.3 H AST 44 H ALT 18 Alkaline Phosphatase 130 H Ammonia 118 H* Troponin I < 0.020 Total Protein 6.6 Albumin 2.6 L Globulin 4.0 H Albumin/Globulin Ratio 0.7 L TSH 1.21 Salicylates < 3.0 Acetaminophen < 2.0 L Ethyl Alcohol < 3.0 Misc Test Result Platelets confirmed Blood Type O Positive Antibody Screen NEGATIVE Blood Bank Wristband ID Yes Blood Bank Comment PLATP Ready 04/06/24 04/06/24 01:02 04:15 WBC 2.6 L D RBC 2.49 L Hgb 8.9 L D Hct 26.0 L MCV 104 H MCH 35.7 H MCHC 34.2 RDW Std Deviation 59.0 H Plt Count 14 L* Neut % (Auto) 48 Lymph % (Auto) 41 [place] % (Auto) 6 Eos % (Auto) 4 Baso % (Auto) 1 Neut # (Auto) 1.2 L Lymph # (Auto) 1.0 [place] # (Auto) 0.2 Eos # (Auto) 0.1 Baso # (Auto) 0.0 Immature Gran # (Auto) 0.01 H Absolute Nucleated RBC 0.00 Immature Gran % 0 Nucleated RBC % 0 PT INR APTT Puncture Site Right Radial ABG pH 7.43 ABG pCO2 35 ABG pO2 93 ABG HCO3 23 ABG O2 Saturation 98 ABG Base Excess -1 FiO2 21 Sodium 141 Potassium 5.1 D Chloride 111 H Carbon Dioxide 21.7 Anion Gap 8 BUN 10 Creatinine 0.7 Estim Creat Clear Calc 83.7 eGFR > 60 BUN/Creatinine Ratio 14 Glucose 113 H Calculated Osmolality 281 Calcium 8.8 Corrected Calcium Magnesium Total Bilirubin AST ALT Alkaline Phosphatase Ammonia Troponin I Total Protein Albumin Globulin Albumin/Globulin Ratio TSH Salicylates Acetaminophen Ethyl Alcohol Misc Test Result Platelets confirmed Blood Type Antibody Screen Blood Bank Wristband ID Blood Bank Comment ABG Interpretation ABG results: 04/06/24 01:02 ABG pH 7.43 ABG pCO2 35 ABG pO2 93 ABG HCO3 23 ABG O2 Saturation 98 ABG Base Excess -1 Quality Measures Quality Measures none Assessment & Plan Assessment Current Active Medications: Generic Name Dose Route Start Last Admin Trade Name Charlieq PRN Reason Stop Dose Admin Folic Acid 1 mg 04/09/24 09:00 Folic Acid 1 Mg Tablet PO 05/09/24 08:59 QDAY CELINA Folic Acid 1 mg 04/06/24 09:00 04/06/24 09:48 Folic Acid Inj 1 Mg/0.2 Ml IVP 04/08/24 09:01 1 mg QDAY CELINA Administration Albumin Human 25 gm in 100 mls @ 100 mls/hr 04/05/24 23:38 04/06/24 09:38 Albuminar-25 Ivpb IV 04/08/24 23:37 100 mls/hr QDAY CELINA Administration Lactulose 30 gm 04/05/24 23:40 04/06/24 05:11 Lactulose Syrup 20 Gm/30 Ml Udc PO 05/05/24 23:39 30 gm TID CELINA Administration Protocol Midodrine 10 mg 04/06/24 06:00 04/06/24 05:11 Midodrine 5 Mg Tablet PO 05/06/24 05:59 10 mg TID CELINA Administration Ondansetron HCl 4 mg 04/06/24 03:09 04/06/24 03:22 Ondansetron Inj 2 Mg/Ml Inj 2 Ml IV 05/06/24 03:08 4 mg Q6HR PRN Administration NAUSEA OR VOMITING Protocol Pantoprazole Sodium 40 mg 04/06/24 09:00 04/06/24 09:39 Pantoprazole Inj 40 Mg Vial IVP 05/06/24 08:59 40 mg QDAY CELINA Administration Rifaximin 550 mg 04/06/24 09:00 04/06/24 09:40 Rifaximin 550 Mg Tablet PO 04/13/24 08:59 550 mg BID CELINA Administration Thiamine HCl 100 mg 04/06/24 09:00 04/06/24 09:40 Thiamine Inj 100 Mg/Ml Vial 2 Ml IVP 04/08/24 09:01 100 mg QDAY CELINA Administration Thiamine HCl 100 mg 04/09/24 09:00 Thiamine 100 Mg Tablet PO 05/09/24 08:59 QDAY CELINA Plan Summary: Ms. 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 emergency department on 04/05/2024 with a chief complaint of lethargy and altered mental status this morning. #Hepatic encephalopathy, grade 2 #Hyperammonemia #Decompensated cirrhosis #Alcohol-associated liver disease #Thrombocytopenia #Hyperbilirubinemia #Transaminitis She is a 54-year-old female with a past medical history of ESLD, secondary to alcoholic liver cirrhosis, hepatic encephalopathy, esophageal varices and hemorrhoids status post banding and type 2 diabetes who presented to the ED on 04/05/2024 with lethargy altered mental status. Family reports that she has been having very minimal bowel movement for the last 3 days despite being on lactulose. She follows with [facility] in [place] and is supposedly fully [facility] for possible placement on the transplant list for transplantation. Meld?Na score 22, 7 to 10% estimated 90-day mortality, Child [place] score 11 points, child class C, life expectancy 1 to 3 years Patient's INR 2.0, bilirubin 6.3, AST 44, ammonia 118 platelet 14,000 on presentation She received 1 units of platelets yesterday. Plan: -Lactulose 30 three times daily -Rifaximin twice daily -Keep potassium more than 4 to improve ammonia clearance via kidneys -Resume midodrine 10 p.o. 3 times daily -IV albumin daily -IV Protonix 40 daily -Ordered 1 unit platelets, transfuse -Follow CBC in a.m. #Hyperkalemia-resolved Potassium 5.6 on presentation, was given 1 L NS bolus in ED Potassium this morning - 5.1 Plan: -Follow potassium in a.m. #Macrocytosis Hemoglobin 12.5, MCV 102 on presentation, possibly in setting of liver disease Plan: - IV Cyanocobalamin DVT prophylaxis: SCD GI prophylaxis: IV Protonix Diet: Cardiac Lines: Peripheral IV Code status: Full code Case was discussed with Dr Otto PGY-2 and attending physician, Dr Seymour Moore MD PGY1 Disclaimer: This note was dictated by speech recognition. Minor errors in community service manager may be present due to voice recognition software. LPatient examined and case discussed with the team including attending physician. Note reviewed, I agree with the care plan as documented. Ms. Knight is a 53-year-old female with longstanding history of end-stage liver disease and recurrent hepatic encephalopathy admissions, pending liver transplant, who was admitted for acute metabolic encephalopathy in the setting of decompensated liver disease. As per admission note, patient did not take her lactulose as prescribed for a few days, lab work showed hyperammonemia. Plan: Patient is on p.o. lactulose 3 times daily, will monitor mentation closely, if unable to tolerate p.o. we will switch to per rectum. Dispo: Anticipate discharge in the next 24-48 hours, patient condition continues to improve. - Chance Otto MD, PGY 2 Disclaimer: The document bellow may not be free of grammatical/phonetic/typographic errors due to use of voice recognition software. This does not dissuade from the commitment to providing health care with the patient's best interest in mind. L Attending Provider Attestation/Addendum I have examined the patient, reviewed labs and imaging findings, discussed the case with the resident(s), and reviewed entered orders. I agree with the plan of care as outlined in this note, with these additional summaries/recommendations: Patient and mother seen at bedside. No acute overnight events. Patient is well-known to the hospital service. Patient admitted overnight for acute hepatic encephalopathy. Ammonia 118 on admission. Patient has recurrent history of hospitalizations for hepatic encephalopathy although no clear trigger at this point. Possibly secondary to medication noncompliance. Start lactulose 3 times daily and rifaximin. Monitor for improvement in mental status. Patient is entering questions at bedside and is currently ANO x 2. CT head on admission was negative. Hyperkalemia on admission has now resolved. Patient has decompensated liver cirrhosis and we will continue with low-sodium diet, IV albumin, limit Tylenol use, and fluid restriction. Patient has signs of synthetic liver dysfunction with coagulopathy, thrombocytopenia, and hyperbilirubinemia. 1 unit platelets was ordered on admission for platelet count of 14. No evidence of GI bleed at this time although hemoglobin did downtrend to 8.9 from 12.5 previously. We will continue to monitor for any evidence of GI bleed. If FOBT positive we will consult gastroenterology. Patient was also noted to have bilateral renal calculus from previous CT although does not appear to have any flank tenderness or urinary symptoms at this time. Continue home meds as tolerated. Repeat hematology and chemistry panel in AM. Dr. Seymour MD
[2024-04-06 16:06] LABS: Ferritin 412 ng/mL (7.3-270.7)
[2024-04-07] VITALS (11 sets, daily range): BP systolic 102–132; BP diastolic 54–68; PULSE 53–65; RESP 13–20; TEMP 36.1–36.8; O2SAT 98–99
[2024-04-07 01:04] LABS: OBS Card Lot # 23001; OBS Developer Lot # 23003; OBS Performed By DALES; OBS QC OK? Yes; Occult Blood, Stool Negative (Negative)
[2024-04-07] MEDS: MIDODRINE 5 MG TABLET 10 MG PO ×3 (05:28→21:06)
[2024-04-07] MEDS: LACTULOSE SYRUP 20 GM/30 ML UDC 30 GM PO ×3 (05:29→21:05)
[2024-04-07 07:00] LABS: Basophils % (Auto) 1 % (0-2.5); Eosinophils # (Auto) 0.1 Thou/mm3 (0.0-0.5); Eosinophils % (Auto) 3 % (0-10); Hematocrit 28.8 % (36.0-46.0); Hemoglobin 9.8 g/dL (12.0-16.0); Immature Granulocytes % (Auto) 0 % (0-0); Immature Granulocytes Auto 0.01 Thou/mm3 (0.00-0.00); Lymphocytes # (Auto) 1.2 Thou/mm3 (1.0-4.8); Lymphocytes % (Auto) 35 % (10-50); Mean Corpuscular Hemoglobin 36.3 pg (25.0-35.0); Mean Corpuscular Volume 107 fL (80-100); Monocytes # (Auto) 0.3 Thou/mm3 (0.0-0.8); Monocytes % (Auto) 8 % (0-12); Neutrophils # (Auto) 1.9 Thou/mm3 (1.8-7.7); Neutrophils % (Auto) 53 % (37-80); Nucleated Red Blood Cell % 0 /100 WBC (0); Platelet Count 85 Thou/mm3 (140-440); RDW Standard Deviation 59.7 fL (36.4-46.3); White Blood Count 3.5 Thou/mm3 (3.6-11.0)
[2024-04-07 07:02] LABS: Alanine Aminotransferase 16 U/L (10-49); Albumin, Serum 3.2 gm/dL (3.5-5.0); Alkaline Phosphatase 91 U/L (46-116); Anion Gap 6 (7-16); Aspartate Amino Transferase 34 U/L (0-34); BUN/Creatinine Ratio 10 Ratio (12-20); Bilirubin,Total 8.1 mg/dL (0.3-1.2); Blood Urea Nitrogen 7 mg/dL (9-23); Calcium 9.5 mg/dL (8.3-10.6); Calcium (Corrected) 10.1 mg/dL (8.5-10.1); Carbon Dioxide 24.8 mMol/L (20.0-31.0); Chloride 111 mMol/L (98-107); Creatinine (Component) 0.7 mg/dL (0.6-1.3); Estimated Creatinine Clearance 81.7 mL/min (>60); Globulin 3.2 gm/dL (2.3-3.5); Glucose 136 mg/dL (74-106); Magnesium 1.8 mg/dL (1.6-2.6); Osmolality,Calculated 283 (275-295); Phosphorous 2.7 mg/dL (2.4-5.1); Potassium 4.8 mMol/L (3.4-5.1); Sodium 142 mMol/L (136-145); Total Protein 6.4 gm/dL (5.7-8.2); eGFR > 60 See Note
--- NOTE | 2024-04-07 09:35 | ESPR_ITS ---
Documentation for date of: 04/07/24 Subjective Subjective Interval history: Patient seen at bedside. No acute overnight events. She is more awake today, no significant lethargy as seen yesterday, mentation is at baseline. She had 2 bowel movements of relatively large quantity of lactulose 30 mg 3 times daily. Labs reviewed, WBC slightly better up to 3.5. T. bili is elevated uptrending, 8.1 today. Exam Vital Signs Temp Pulse Resp BP Pulse Ox O2 Del Method 97.0 F 58 L 17 110/58 L 98 Room Air 04/07/24 08:00 04/07/24 08:00 04/07/24 08:00 04/07/24 08:00 04/07/24 08:00 04/07/24 08:00 Narrative Exam GENERAL: AAOX3 NEURO: INGOT BUGGY OPERATOR grossly intact, moves extremities x4 HEENT: Moist mucosa. Eyes open, symmetrical, icteric CARDIO: No chest pain on palpation. Heart RRR, no obvious murmurs PULM: No noted coughing/dyspnea. Lungs CTA B/L GI: Abdomen soft,mildly distended, mildly tender to palpation. BSx4 URO/TEST RACK OPERATOR:: No further abnormalities noted. SKIN/MSK/EXT: Hyperpigmentation in skin noted Objective Labs 04/08/24 05:15 04/08/24 05:15 Labs: Laboratory Results - last 24 hr 04/06/24 04/06/24 04/06/24 00:05 04:15 20:23 WBC RBC Hgb Hct MCV MCH MCHC RDW Std Deviation Plt Count Neut % (Auto) Lymph % (Auto) [place] % (Auto) Eos % (Auto) Baso % (Auto) Neut # (Auto) Lymph # (Auto) [place] # (Auto) Eos # (Auto) Baso # (Auto) Immature Gran # (Auto) Absolute Nucleated RBC Immature Gran % Nucleated RBC % Sodium Potassium Chloride Carbon Dioxide Anion Gap BUN Creatinine Estim Creat Clear Calc eGFR BUN/Creatinine Ratio Glucose Calculated Osmolality Calcium Corrected Calcium Phosphorus Magnesium Ferritin 412 H Total Bilirubin AST ALT Alkaline Phosphatase Total Protein Albumin Globulin Albumin/Globulin Ratio Stool Occult Blood Negative Blood Type O Positive Antibody Screen NEGATIVE Blood Bank Wristband ID Yes Blood Bank Comment PLATP Ready 04/07/24 05:27 WBC 3.5 L RBC 2.70 L Hgb 9.8 L Hct 28.8 L MCV 107 H MCH 36.3 H MCHC 34.0 RDW Std Deviation 59.7 H Plt Count 85 L D Neut % (Auto) 53 Lymph % (Auto) 35 [place] % (Auto) 8 Eos % (Auto) 3 Baso % (Auto) 1 Neut # (Auto) 1.9 Lymph # (Auto) 1.2 [place] # (Auto) 0.3 Eos # (Auto) 0.1 Baso # (Auto) 0.0 Immature Gran # (Auto) 0.01 H Absolute Nucleated RBC 0.00 Immature Gran % 0 Nucleated RBC % 0 Sodium 142 Potassium 4.8 Chloride 111 H Carbon Dioxide 24.8 Anion Gap 6 L BUN 7 L Creatinine 0.7 Estim Creat Clear Calc 81.7 eGFR > 60 BUN/Creatinine Ratio 10 L Glucose 136 H Calculated Osmolality 283 Calcium 9.5 Corrected Calcium 10.1 Phosphorus 2.7 Magnesium 1.8 Ferritin Total Bilirubin 8.1 H D AST 34 ALT 16 Alkaline Phosphatase 91 D Total Protein 6.4 Albumin 3.2 L D Globulin 3.2 Albumin/Globulin Ratio 1.0 L Stool Occult Blood Blood Type Antibody Screen Blood Bank Wristband ID Blood Bank Comment ABG Interpretation ABG results: 04/06/24 01:02 ABG pH 7.43 ABG pCO2 35 ABG pO2 93 ABG HCO3 23 ABG O2 Saturation 98 ABG Base Excess -1 Quality Measures Quality Measures none Assessment & Plan Assessment Current Active Medications: Generic Name Dose Route Start Last Admin Trade Name [place] PRN Reason Stop Dose Admin Folic Acid 1 mg 04/09/24 09:00 Folic Acid 1 Mg Tablet PO 05/09/24 08:59 QDAY CELINA Folic Acid 1 mg 04/06/24 09:00 04/06/24 09:48 Folic Acid Inj 1 Mg/0.2 Ml IVP 04/08/24 09:01 1 mg QDAY CELINA Administration Albumin Human 25 gm in 100 mls @ 100 mls/hr 04/05/24 23:38 04/06/24 09:38 Albuminar-25 Ivpb IV 04/08/24 23:37 100 mls/hr QDAY CELINA Administration Lactulose 30 gm 04/05/24 23:40 04/07/24 05:29 Lactulose Syrup 20 Gm/30 Ml Udc PO 05/05/24 23:39 30 gm TID CELINA Administration Protocol Midodrine 10 mg 04/06/24 06:00 04/07/24 05:28 Midodrine 5 Mg Tablet PO 05/06/24 05:59 10 mg TID CELINA Administration Ondansetron HCl 4 mg 04/06/24 03:09 04/06/24 03:22 Ondansetron Inj 2 Mg/Ml Inj 2 Ml IV 05/06/24 03:08 4 mg Q6HR PRN Administration NAUSEA OR VOMITING Protocol Pantoprazole Sodium 40 mg 04/06/24 09:00 04/06/24 09:39 Pantoprazole Inj 40 Mg Vial IVP 05/06/24 08:59 40 mg QDAY CELINA Administration Rifaximin 550 mg 04/06/24 09:00 04/06/24 21:33 Rifaximin 550 Mg Tablet PO 04/13/24 08:59 550 mg BID CELINA Administration Thiamine HCl 100 mg 04/06/24 09:00 04/06/24 09:40 Thiamine Inj 100 Mg/Ml Vial 2 Ml IVP 04/08/24 09:01 100 mg QDAY CELINA Administration Thiamine HCl 100 mg 04/09/24 09:00 Thiamine 100 Mg Tablet PO 05/09/24 08:59 QDAY CELINA Plan Summary: Ms. Knight is a 54-year-old female with past medical history of recurrent admissions related to end-stage liver disease secondary to alcoholic liver cirrhosis, hepatic encephalopathy, esophageal varices status post banding and type 2 diabetes mellitus who presented to [facility] emergency department on 04/05/2024 with a chief complaint of lethargy and altered mental status this morning. #Hepatic encephalopathy, grade 2 #Hyperammonemia #Decompensated cirrhosis #Alcohol-associated liver disease #Thrombocytopenia #Hyperbilirubinemia #Transaminitis She is a 54-year-old female with a past medical history of ESLD, secondary to alcoholic liver cirrhosis, hepatic encephalopathy, esophageal varices and hemorrhoids status post banding and type 2 diabetes who presented to the ED on 04/05/2024 with lethargy altered mental status. Family reports that she has been having very minimal bowel movement for the last 3 days despite being on lactulose. She follows with [facility] in [place] and is supposedly fully [facility] for possible placement on the transplant list for transplantation. Meld?Na score 22, 7 to 10% estimated 90-day mortality, Child [place] score 11 points, child class C, life expectancy 1 to 3 years Patient's INR 2.0, bilirubin 6.3, AST 44, ammonia 118 platelet 14,000 on presentation She received 1 units of platelets yesterday. 04/07/2024- She is more awake today, no significant lethargy as seen yesterday, mentation is at baseline. She had 2 bowel movements of relatively large quantity of lactulose 30 mg 3 times daily. Labs reviewed, WBC slightly better up to 3.5. T. bili is elevated uptrending, 8.1 today. Plan: -Continue Lactulose 30 three times daily -Continue Rifaximin twice daily -Resume midodrine 10 p.o. 3 times daily -Fractionated bilirubin -IV albumin daily -IV Protonix 40 daily -Follow CBC in a.m. #Hyperkalemia-resolved Potassium 5.6 on presentation, was given 1 L NS bolus in ED Potassium this morning - 5.1 Plan: -Follow potassium in a.m. #Macrocytosis Hemoglobin 12.5, MCV 102 on presentation, possibly in setting of liver disease Plan: - IV Cyanocobalamin DVT prophylaxis: SCD GI prophylaxis: IV Protonix Diet: Cardiac Lines: Peripheral IV Code status: Full code Case was discussed with Dr Otto PGY-2 and attending physician, Dr Seymour Moore MD PGY-1 Disclaimer: This note was dictated by speech recognition. Minor errors in hospice nurse practitioner may be present due to voice recognition software. LPatient examined and case discussed with the team including attending physician. Note reviewed, I agree with the care plan as documented. Ms. Knight is a 53-year-old female with longstanding history of end-stage liver disease and recurrent hepatic encephalopathy admissions, pending liver transplant, who was admitted for acute metabolic encephalopathy in the setting of decompensated liver disease. As per admission note, patient did not take her lactulose as prescribed for a few days, lab work showed hyperammonemia. 04/07: Mentation improved significantly, patient is almost at her baseline. Platelets improved from 14K-85K after 1 unit for a sedated transfusion. Dispo: Continue p.o. lactulose 3 times daily. Anticipate discharge in the next 24-48 hours, patient condition continues to improve. Will continue to monitor labs closely. - Chance Otto MD, PGY 2 Disclaimer: The document bellow may not be free of grammatical/phonetic/typographic errors due to use of voice recognition software. This does not dissuade from the commitment to providing health care with the patient's best interest in mind. L Attending Provider Attestation/Addendum I have examined the patient, reviewed labs and imaging findings, discussed the case with the resident(s), and reviewed entered orders. I agree with the plan of care as outlined in this note, with these additional summaries/recommendations: Patient and mother seen at bedside. No acute overnight events. Patient admitted for acute hepatic encephalopathy. Today at bedside patients mentation appears much improved from admission and trending towards baseline. Ammonia 118 on admission. Patient has recurrent history of hospitalizations for hepatic encephalopathy although no clear trigger at this point. Possibly secondary to medication noncompliance. Continue lactulose 3 times daily and rifaximin. CT head on admission was negative. Hyperkalemia on admission has now resolved. Patient has decompensated liver cirrhosis and we will continue with low-sodium diet, IV albumin, limit Tylenol use, and fluid restriction. Patient has signs of synthetic liver dysfunction with coagulopathy, thrombocytopenia, and hyperbilirubinemia. 1 unit platelets was ordered on admission for platelet count of 14 and today platelets improved to 85. No evidence of GI bleed at this time. We will continue to monitor for any evidence of GI bleed. Patient was also noted to have bilateral renal calculus from previous CT although does not appear to have any flank tenderness or urinary symptoms at this time. Continue home meds as tolerated. Repeat hematology and chemistry panel in AM. Dr. Seymour MD
[2024-04-07] MEDS: ALBUMIN HUMAN 25% IVPB 25 GM/100 ML BTL IV (10:16)
[2024-04-07] MEDS: rifaximin 550 MG TABLET PO ×2 (10:30→20:00)
[2024-04-07 11:43] LABS: Total Iron Binding Capacity 158 mcg/dL (250-425)
[2024-04-07 11:53] LABS: Iron 131 mcg/dL (50-170); Percent Iron Saturation 82 % (20-55); Unsaturated Iron Binding 27 (225-295)
[2024-04-07 12:02] LABS: Bilirubin,Direct 2.5 mg/dL (0.0-0.3); Bilirubin,Indirect 5.1 mg/dL (0.0-1.1); Bilirubin,Total 7.6 mg/dL (0.3-1.2)
[2024-04-07] MEDS: HYDROcodone/APAP 5/325 TABLET 1 TAB PO (19:59)
[2024-04-08] VITALS (10 sets, daily range): BP systolic 95–113; BP diastolic 52–67; PULSE 48–65; RESP 16–18; TEMP 36.1–36.6; O2SAT 95–99
[2024-04-08] MEDS: LACTULOSE SYRUP 20 GM/30 ML UDC 30 GM PO (05:10)
[2024-04-08] MEDS: MIDODRINE 5 MG TABLET 10 MG PO ×3 (05:10→21:55)
[2024-04-08 06:34] LABS: Basophils % (Auto) 1 % (0-2.5); Eosinophils # (Auto) 0.2 Thou/mm3 (0.0-0.5); Eosinophils % (Auto) 4 % (0-10); Hematocrit 31.2 % (36.0-46.0); Hemoglobin 10.5 g/dL (12.0-16.0); Immature Granulocytes % (Auto) 0 % (0-0); Immature Granulocytes Auto 0.01 Thou/mm3 (0.00-0.00); Lymphocytes # (Auto) 1.6 Thou/mm3 (1.0-4.8); Lymphocytes % (Auto) 37 % (10-50); Mean Corpuscular HGB Conc 33.7 g/dl (31.0-37.0); Mean Corpuscular Volume 107 fL (80-100); Monocytes # (Auto) 0.2 Thou/mm3 (0.0-0.8); Monocytes % (Auto) 6 % (0-12); Neutrophils # (Auto) 2.2 Thou/mm3 (1.8-7.7); Neutrophils % (Auto) 52 % (37-80); Nucleated Red Blood Cell % 0 /100 WBC (0); RDW Standard Deviation 58.1 fL (36.4-46.3); Red Blood Count 2.92 Miln/mm3 (4.00-5.20); White Blood Count 4.2 Thou/mm3 (3.6-11.0)
[2024-04-08 06:41] LABS: Platelet Count 54 Thou/mm3 (140-440)
[2024-04-08 06:45] LABS: Slide Review Platelets confirmed
[2024-04-08 06:52] LABS: Alanine Aminotransferase 15 U/L (10-49); Albumin, Serum 3.3 gm/dL (3.5-5.0); Alkaline Phosphatase 91 U/L (46-116); Anion Gap 7 (7-16); Aspartate Amino Transferase 32 U/L (0-34); BUN/Creatinine Ratio 10 Ratio (12-20); Bilirubin,Total 7.9 mg/dL (0.3-1.2); Blood Urea Nitrogen 8 mg/dL (9-23); Calcium 9.6 mg/dL (8.3-10.6); Calcium (Corrected) 10.2 mg/dL (8.5-10.1); Carbon Dioxide 27.5 mMol/L (20.0-31.0); Chloride 108 mMol/L (98-107); Creatinine (Component) 0.8 mg/dL (0.6-1.3); Estimated Creatinine Clearance 71.5 mL/min (>60); Globulin 3.4 gm/dL (2.3-3.5); Glucose 151 mg/dL (74-106); Magnesium 1.7 mg/dL (1.6-2.6); Osmolality,Calculated 284 (275-295); Phosphorous 3.3 mg/dL (2.4-5.1); Potassium 4.6 mMol/L (3.4-5.1); Sodium 142 mMol/L (136-145); Total Protein 6.7 gm/dL (5.7-8.2); eGFR > 60 See Note
[2024-04-08] MEDS: rifaximin 550 MG TABLET PO ×2 (08:22→21:55)
[2024-04-08] MEDS: ALBUMIN HUMAN 25% IVPB 25 GM/100 ML BTL IV (08:23)
[2024-04-08] MEDS: NITROFURANTOIN MACRO 100 MG CAPSULE PO ×2 (10:06→21:55)
[2024-04-08] MEDS: SODIUM CHLORIDE 0.9% 500 ML 500 ML 999 ML IV (10:11)
--- NOTE | 2024-04-08 12:44 | ESPR_ITS ---
Documentation for date of: 04/08/24 Subjective Subjective Interval history: Patient was seen and examined at bedside. No acute overnight events. Patient's mentation has improved significantly however she is still somewhat somnolent. She is having 2-3 bowel movements a day. Her urine culture returned positive for VRE and she was started on nitrofurantoin 100 mg twice daily. Will continue current management and monitor patient, anticipate discharge tomorrow. Exam Vital Signs Temp Pulse Resp BP Pulse Ox O2 Del Method 97.7 F 61 17 103/59 L 98 Room Air 04/08/24 12:00 04/08/24 12:00 04/08/24 12:00 04/08/24 12:00 04/08/24 12:00 04/08/24 12:00 Narrative Exam Gen: Well-developed and well-nourished. HEENT: NCAT, PERRLA, EOMI, MMM, icteric conjunctivae. CVS: normal S1 and S2. RRR. No M/R/G. Resp: CTA B/L. No rhonchi, rales, crackles or wheezing. Abd: soft, obese, tender in RUQ, minimally distended. BS+ in all 4 quadrants. MSK: Good ROM in BUE & BLE. No edema or rash. Neuro: CN II-XII grossly intact. Strength 5/5 in BUE & BLE. Alert and oriented x3. Psych: appropriate mood and affect. Appears somnolent. Objective Labs 04/09/24 04:40 04/09/24 04:40 Labs: Laboratory Results - last 24 hr 04/08/24 05:15 WBC 4.2 RBC 2.92 L Hgb 10.5 L Hct 31.2 L MCV 107 H MCH 36.0 H MCHC 33.7 RDW Std Deviation 58.1 H Plt Count 54 L D Neut % (Auto) 52 Lymph % (Auto) 37 [place] % (Auto) 6 Eos % (Auto) 4 Baso % (Auto) 1 Neut # (Auto) 2.2 Lymph # (Auto) 1.6 [place] # (Auto) 0.2 Eos # (Auto) 0.2 Baso # (Auto) 0.0 Immature Gran # (Auto) 0.01 H Absolute Nucleated RBC 0.00 Immature Gran % 0 Nucleated RBC % 0 Sodium 142 Potassium 4.6 Chloride 108 H Carbon Dioxide 27.5 Anion Gap 7 BUN 8 L Creatinine 0.8 Estim Creat Clear Calc 71.5 eGFR > 60 BUN/Creatinine Ratio 10 L Glucose 151 H Calculated Osmolality 284 Calcium 9.6 Corrected Calcium 10.2 H Phosphorus 3.3 Magnesium 1.7 Total Bilirubin 7.9 H AST 32 ALT 15 Alkaline Phosphatase 91 Total Protein 6.7 Albumin 3.3 L Globulin 3.4 Albumin/Globulin Ratio 1.0 L Misc Test Result Platelets confirmed ABG Interpretation ABG results: 04/06/24 01:02 ABG pH 7.43 ABG pCO2 35 ABG pO2 93 ABG HCO3 23 ABG O2 Saturation 98 ABG Base Excess -1 Quality Measures Quality Measures VTE prophylaxis Assessment & Plan Assessment Current Active Medications: Generic Name Dose Route Start Last Admin Trade Name Freq PRN Reason Stop Dose Admin Hydrocodone Bitart/Acetaminophen 1 tab 04/07/24 12:57 04/07/24 19:59 Hydrocodone/Apap 5/325 Tablet PO 04/12/24 12:56 1 tab Q6HR PRN Administration PAIN Folic Acid 1 mg 04/09/24 09:00 Folic Acid 1 Mg Tablet PO 05/09/24 08:59 QDAY CELINA Albumin Human 25 gm in 100 mls @ 100 mls/hr 04/05/24 23:38 04/08/24 08:23 Albuminar-25 Ivpb IV 04/08/24 23:37 100 mls/hr QDAY CELINA Administration Lactulose 30 gm 04/05/24 23:40 04/08/24 05:10 Lactulose Syrup 20 Gm/30 Ml Udc PO 05/05/24 23:39 30 gm TID CELINA Administration Protocol Midodrine 10 mg 04/06/24 06:00 04/08/24 05:10 Midodrine 5 Mg Tablet PO 05/06/24 05:59 10 mg TID CELINA Administration Nitrofurantoin Macrocrystals 100 mg 04/08/24 09:45 04/08/24 10:06 Nitrofurantoin Macro 100 Mg Capsule PO 04/15/24 09:44 100 mg BID CELINA Administration Ondansetron HCl 4 mg 04/06/24 03:09 04/06/24 03:22 Ondansetron Inj 2 Mg/Ml Inj 2 Ml IV 05/06/24 03:08 4 mg Q6HR PRN Administration NAUSEA OR VOMITING Protocol Pantoprazole Sodium 40 mg 04/06/24 09:00 04/08/24 08:42 Pantoprazole Inj 40 Mg Vial IVP 05/06/24 08:59 Not Given QDAY CELINA Rifaximin 550 mg 04/06/24 09:00 04/08/24 08:22 Rifaximin 550 Mg Tablet PO 04/13/24 08:59 550 mg BID CELINA Administration Thiamine HCl 100 mg 04/09/24 09:00 Thiamine 100 Mg Tablet PO 05/09/24 08:59 QDAY CELINA Plan Summary: Ms. Knight is a 54-year-old female with past medical history of recurrent admissions related to end-stage liver disease secondary to alcoholic liver cirrhosis, hepatic encephalopathy, esophageal varices status post banding and type 2 diabetes mellitus who presented to [facility] emergency department on 04/05/2024 with a chief complaint of lethargy and altered mental status this morning. #Hepatic encephalopathy, grade 2 #Hyperammonemia #Decompensated cirrhosis #Alcohol-associated liver disease #Thrombocytopenia #Hyperbilirubinemia #Transaminitis She is a 54-year-old female with a past medical history of ESLD, secondary to alcoholic liver cirrhosis, hepatic encephalopathy, esophageal varices and hemorrhoids status post banding and type 2 diabetes who presented to the ED on 04/05/2024 with lethargy altered mental status. Family reports that she has been having very minimal bowel movement for the last 3 days despite being on lactulose. She follows with toaster element repairer in [place] and is supposedly fully [facility] for possible placement on the transplant list for transplantation. Meld?Na score 22, 7 to 10% estimated 90-day mortality, Child [place] score 11 points, child class C, life expectancy 1 to 3 years Patient's INR 2.0, bilirubin 6.3, AST 44, ammonia 118 platelet 14,000 on presentation She received 1 units of platelets yesterday. 04/07/2024- She is more awake today, no significant lethargy as seen yesterday, mentation is at baseline. She had 2 bowel movements of relatively large quantity of lactulose 30 mg 3 times daily. Labs reviewed, WBC slightly better up to 3.5. T. bili is elevated uptrending, 8.1 today. Plan: -Continue Lactulose 30 three times daily -Continue Rifaximin twice daily -Resume midodrine 10 p.o. 3 times daily -IV albumin daily -IV Protonix 40 daily -Follow CBC in a.m. #Hyperkalemia-resolved Potassium 5.6 on presentation, was given 1 L NS bolus in ED Potassium this morning - 5.1 Plan: -Follow potassium. #Macrocytosis Hemoglobin 12.5, MCV 102 on presentation, possibly in setting of liver disease Plan: - IV Cyanocobalamin. DVT prophylaxis: SCD GI prophylaxis: IV Protonix Diet: Cardiac Lines: Peripheral IV Code status: Full code Plan of care discussed with attending Dr. Ahuja. Geoff Moreno MD, PGY 2. Disclaimer: This note was dictated by speech recognition. Minor errors in railroad crane operator may be present due to voice recognition software. Attending Provider Attestation/Addendum I have examined the patient, reviewed labs and imaging findings, discussed the case with the resident(s), and reviewed entered orders. I agree with the plan of care as outlined in this note, with these additional summaries/recommendations: Patient seen at bedside. No acute overnight events. Patient admitted for acute hepatic encephalopathy. Patients mental status continues to improve although not yet back to baseline. Ammonia 118 on admission. Possibly secondary to medication noncompliance +/- UTI. No evidence of SBP and abdominal exam today is benign. Continue lactulose 3 times daily and rifaximin. CT head on admission was negative. Hyperkalemia on admission has now resolved. Patient has decompensated liver cirrhosis and we will continue with low-sodium diet, IV albumin, limit Tylenol use, and fluid restriction. Patient has signs of synthetic liver dysfunction with coagulopathy, thrombocytopenia, and hyperbilirubinemia. Thrombocytopenia present although no signs of GI bleed at this time. We will continue to monitor for any evidence of GI bleed. Patient was also noted to have bilateral renal calculus from previous CT although does not appear to have any flank tenderness or urinary symptoms at this time. Urine cx positive and patient started on abx for possible UTI. Continue home meds as tolerated. Repeat hematology and chemistry panel in AM. Dr. Seymour MD
[2024-04-08] MEDS: HYDROcodone/APAP 5/325 TABLET 1 TAB PO (22:00)
[2024-04-09] VITALS (11 sets, daily range): BP systolic 90–116; BP diastolic 57–74; PULSE 56–66; RESP 16–19; TEMP 36.1–36.8; O2SAT 95–100
[2024-04-09] MEDS: MIDODRINE 5 MG TABLET 10 MG PO ×3 (05:11→22:53)
--- NOTE | 2024-04-09 05:14 | PC.NURSE ---
Patient refused lactulose, states has been having several loose BM, made aware.
[2024-04-09 06:05] LABS: Basophils # (Auto) 0.1 Thou/mm3 (0.0-0.2); Basophils % (Auto) 1 % (0-2.5); Eosinophils # (Auto) 0.3 Thou/mm3 (0.0-0.5); Eosinophils % (Auto) 5 % (0-10); Hematocrit 31.1 % (36.0-46.0); Hemoglobin 10.6 g/dL (12.0-16.0); Immature Granulocytes % (Auto) 0 % (0-0); Immature Granulocytes Auto 0.02 Thou/mm3 (0.00-0.00); Lymphocytes # (Auto) 1.4 Thou/mm3 (1.0-4.8); Lymphocytes % (Auto) 27 % (10-50); Mean Corpuscular HGB Conc 34.1 g/dl (31.0-37.0); Mean Corpuscular Hemoglobin 35.9 pg (25.0-35.0); Mean Corpuscular Volume 105 fL (80-100); Monocytes # (Auto) 0.4 Thou/mm3 (0.0-0.8); Monocytes % (Auto) 7 % (0-12); Neutrophils % (Auto) 59 % (37-80); Nucleated Red Blood Cell % 0 /100 WBC (0); RDW Standard Deviation 57.2 fL (36.4-46.3); Red Blood Count 2.95 Miln/mm3 (4.00-5.20); White Blood Count 5.1 Thou/mm3 (3.6-11.0)
[2024-04-09 06:09] LABS: Platelet Count 51 Thou/mm3 (140-440)
[2024-04-09 06:22] LABS: Slide Review Platelets confirmed
[2024-04-09 06:26] LABS: Alanine Aminotransferase 14 U/L (10-49); Albumin, Serum 3.4 gm/dL (3.5-5.0); Albumin/Globulin Ratio 1.1 (1.2-2.2); Alkaline Phosphatase 101 U/L (46-116); Anion Gap 6 (7-16); Aspartate Amino Transferase 40 U/L (0-34); BUN/Creatinine Ratio 13 Ratio (12-20); Bilirubin,Total 6.1 mg/dL (0.3-1.2); Blood Urea Nitrogen 9 mg/dL (9-23); Calcium 9.6 mg/dL (8.3-10.6); Calcium (Corrected) 10.1 mg/dL (8.5-10.1); Carbon Dioxide 27.5 mMol/L (20.0-31.0); Chloride 107 mMol/L (98-107); Creatinine (Component) 0.7 mg/dL (0.6-1.3); Estimated Creatinine Clearance 81.7 mL/min (>60); Globulin 3.2 gm/dL (2.3-3.5); Glucose 117 mg/dL (74-106); Magnesium 1.7 mg/dL (1.6-2.6); Osmolality,Calculated 279 (275-295); Phosphorous 3.1 mg/dL (2.4-5.1); Potassium 4.7 mMol/L (3.4-5.1); Sodium 140 mMol/L (136-145); Total Protein 6.6 gm/dL (5.7-8.2); eGFR > 60 See Note
[2024-04-09] MEDS: Magnesium Sulfate 2 GM Ivpb 2 GM/50 ML BAG IV (08:40)
[2024-04-09] MEDS: PANTOPRAZOLE INJ 40 MG VIAL IVP (08:40)
[2024-04-09] MEDS: rifaximin 550 MG TABLET PO ×2 (08:40→22:54)
[2024-04-09] MEDS: THIAMINE 100 MG TABLET PO (08:40)
[2024-04-09] MEDS: NITROFURANTOIN MACRO 100 MG CAPSULE PO ×2 (08:40→22:54)
[2024-04-09] MEDS: FOLIC ACID 1 MG TABLET PO (08:41)
--- NOTE | 2024-04-09 10:54 | PC.PT ---
PT eval received. Patient was non ambulatory and is dependent in transfers. [facility] was ordered from her last admission on February. Will cancel PT evaluation secondary to patient is at her PLOF. Ordering MD made aware.
--- NOTE | 2024-04-09 11:15 | PC.SS ---
Addendum entered by Natasha Rivers 04/09/24 14:58: SS contacted patient's mother to clarify baseline. Patient's mother, Gemma, states that patient was bedbound prior. She was only able to pivot from bed to chair. SS offered [facility] and SNF. Patient's mother declined SNF. She states she will consider [facility] as an option. Possible d/c Tuesday. Patient d/c held for ultrasound of abdomen. Original Note: Update: Patient is alert/oriented. She verified demographics. Patient resides with her mother and children. She was admitted for hepatic encephalopathy. Patient needs assistance with ADL's. She has a walker and wheelchair that she uses at home. Patient's mother assists with all ADL's. Mother also provides transportation to appointments. She will be the one to transport home. Patient has had [facility] home [facility] prior and would like to use them again. Patient's PCP: [facility]. Patient cannot recall the name of physician. Last appt. was last month. [facility]. SS spoke to floor nurse who states patient has an order for stat PT evaluation. D/c set for today with HH. [ End ]
--- NOTE | 2024-04-09 11:27 | PC.CC ---
Pt entered into [facility] for HH. Pt has used [facility] in the past and would like to use them again.
--- NOTE | 2024-04-09 11:32 | XR_ITS ---
Examination: Abdomen sonogram, complete Date and time of exam: April 09, 2024 1201 hrs. Indications: Jaundice right upper abdominal pain and tenderness beginning one week ago. Technique: Multiple real-time grayscale transabdominal sonographic images of the abdomen have been obtained. Findings: Gallbladder wall is thickened 0.9 cm with edema No gallstones Common bile duct 0.2 cm Pancreatic head 2.7 cm Aorta not enlarged Liver 12.5 cm irregular contour fatty infiltration no focal liver lesions Normal hepatopedal portal venous oh Patent IVC Right kidney 10.4 cm renal cortex 2.0 cm Septated cyst 4.5 cm mid kidney Left kidney 12.9 cm renal cortex 1.1 cm Bilateral mild renal parenchymal scar formation Significant splenomegaly 16.1 cm Impression: Suspicious for acute acalculous cholecystitis, consider HIDA scan or MRCP follow-up Cirrhosis Significant splenomegaly
--- NOTE | 2024-04-09 14:24 | ESPR_ITS ---
<Statement entered by Geoff Moreno MD - 04/09/24 17:49> Senior Resident Attestation: I supervised/discussed management plan with communications intern physician Dr. Moore, and was involved in the care of this patient. I personally saw and examined the patient and discussed the assessment and plan with the entire medicine team, including my attending. I agree with the assessment and plan as documented. Patient's care was discussed with attending physician, Dr. Ahuja. Geoff Moreno MD PGY-2. Documentation for date of: 04/09/24 Subjective Subjective Interval history: Patient seen at bedside. No acute overnight events. She is having regular bowel movements with lactulose On initial evaluation today, patient was AO x 3 at her baseline, neither lethargic and somnolent and was extensively conversed with. Repeat evaluation, patient was somnolent and only AO x 2. Initial discharge plan was discontinued and will monitor patient 1 more day. Continue home medications, including Macrobid for VRE UTI Exam Vital Signs Temp Pulse Resp BP Pulse Ox O2 Del Method 97.7 F 60 16 90/63 96 Room Air 04/09/24 12:00 04/09/24 13:37 04/09/24 12:00 04/09/24 13:37 04/09/24 12:00 04/09/24 12:00 Narrative Exam GENERAL: AAOX3, some waning with somnolence noted after NEURO: HIGHWAY LANDSCAPE ARCHITECT grossly intact, moves extremities x4 HEENT: Moist mucosa. Eyes open, symmetrical, icteric sclera CARDIO: No chest pain on palpation. Heart RRR, no obvious murmurs PULM: No noted coughing/dyspnea. Lungs CTA B/L GI: Abdomen soft, nondistended, no pain on palpation. BSx4 URO/HUMAN RESOURCES RECORDS CLERK:: No further abnormalities noted. SKIN/MSK/EXT: Hyperpigmentation in skin noted Objective Labs 04/10/24 05:00 04/09/24 04:40 Labs: Laboratory Results - last 24 hr 04/09/24 04:40 WBC 5.1 RBC 2.95 L Hgb 10.6 L Hct 31.1 L MCV 105 H MCH 35.9 H MCHC 34.1 RDW Std Deviation 57.2 H Plt Count 51 L Neut % (Auto) 59 Lymph % (Auto) 27 [place] % (Auto) 7 Eos % (Auto) 5 Baso % (Auto) 1 Neut # (Auto) 3.0 Lymph # (Auto) 1.4 [place] # (Auto) 0.4 Eos # (Auto) 0.3 Baso # (Auto) 0.1 Immature Gran # (Auto) 0.02 H Absolute Nucleated RBC 0.00 Immature Gran % 0 Nucleated RBC % 0 Sodium 140 Potassium 4.7 Chloride 107 Carbon Dioxide 27.5 Anion Gap 6 L BUN 9 Creatinine 0.7 Estim Creat Clear Calc 81.7 eGFR > 60 BUN/Creatinine Ratio 13 Glucose 117 H Calculated Osmolality 279 Calcium 9.6 Corrected Calcium 10.1 Phosphorus 3.1 Magnesium 1.7 Total Bilirubin 6.1 H D AST 40 H ALT 14 Alkaline Phosphatase 101 Total Protein 6.6 Albumin 3.4 L Globulin 3.2 Albumin/Globulin Ratio 1.1 L Misc Test Result Platelets confirmed ABG Interpretation ABG results: 04/06/24 01:02 ABG pH 7.43 ABG pCO2 35 ABG pO2 93 ABG HCO3 23 ABG O2 Saturation 98 ABG Base Excess -1 Quality Measures Quality Measures VTE prophylaxis Assessment & Plan Assessment Current Active Medications: Generic Name Dose Route Start Last Admin Trade Name Freq PRN Reason Stop Dose Admin Hydrocodone Bitart/Acetaminophen 1 tab 04/07/24 12:57 04/08/24 22:00 Hydrocodone/Apap 5/325 Tablet PO 04/12/24 12:56 1 tab Q6HR PRN Administration PAIN Folic Acid 1 mg 04/09/24 09:00 04/09/24 08:41 Folic Acid 1 Mg Tablet PO 05/09/24 08:59 1 mg QDAY CELINA Administration Lactulose 30 gm 04/05/24 23:40 04/09/24 13:39 Lactulose Syrup 20 Gm/30 Ml Udc PO 05/05/24 23:39 Not Given TID [facility] Protocol Midodrine 10 mg 04/06/24 06:00 04/09/24 13:37 Midodrine 5 Mg Tablet PO 05/06/24 05:59 10 mg TID CELINA Administration Nitrofurantoin Macrocrystals 100 mg 04/08/24 09:45 04/09/24 08:40 Nitrofurantoin Macro 100 Mg Capsule PO 04/15/24 09:44 100 mg BID CELINA Administration Ondansetron HCl 4 mg 04/06/24 03:09 04/06/24 03:22 Ondansetron Inj 2 Mg/Ml Inj 2 Ml IV 05/06/24 03:08 4 mg Q6HR PRN Administration NAUSEA OR VOMITING Protocol Pantoprazole Sodium 40 mg 04/06/24 09:00 04/09/24 08:40 Pantoprazole Inj 40 Mg Vial IVP 05/06/24 08:59 40 mg QDAY CELINA Administration Rifaximin 550 mg 04/06/24 09:00 04/09/24 08:40 Rifaximin 550 Mg Tablet PO 04/13/24 08:59 550 mg BID CELINA Administration Thiamine HCl 100 mg 04/09/24 09:00 04/09/24 08:40 Thiamine 100 Mg Tablet PO 05/09/24 08:59 100 mg QDAY CELINA Administration Plan Summary: Ms. Knight is a 54-year-old female with past medical history of recurrent admissions related to end-stage liver disease secondary to alcoholic liver cirrhosis, hepatic encephalopathy, esophageal varices status post banding and type 2 diabetes mellitus who presented to [facility] emergency department on 04/05/2024 with a chief complaint of lethargy and altered mental status this morning. #Hepatic encephalopathy, grade 2 #Hyperammonemia #Decompensated cirrhosis #Alcohol-associated liver disease #Thrombocytopenia #Hyperbilirubinemia #Transaminitis She is a 54-year-old female with a past medical history of ESLD, secondary to alcoholic liver cirrhosis, hepatic encephalopathy, esophageal varices and hemorrhoids status post banding and type 2 diabetes who presented to the ED on 04/05/2024 with lethargy altered mental status. Family reports that she has been having very minimal bowel movement for the last 3 days despite being on lactulose. She follows with lead project manager in [place] and is supposedly fully [facility] for possible placement on the transplant list for transplantation. Meld?Na score 22, 7 to 10% estimated 90-day mortality, Child [place] score 11 points, child class C, life expectancy 1 to 3 years Patient's INR 2.0, bilirubin 6.3, AST 44, ammonia 118 platelet 14,000 on presentation She received 1 units of platelets yesterday. 04/07/2024- She is more awake today, no significant lethargy as seen yesterday, mentation is at baseline. She had 2 bowel movements of relatively large quantity of lactulose 30 mg 3 times daily. Labs reviewed, WBC slightly better up to 3.5. T. bili is elevated uptrending, 8.1 today. Plan: -Continue Lactulose 30 three times daily -Continue Rifaximin twice daily -Resume midodrine 10 p.o. 3 times daily -IV Protonix 40 daily -Continue monitoring H&H #Urinary tract Infection #VRE and E. Coli UTI On admission, A previous urinalysis and culture done a couple days prior returned positive for E. coli and vancomycin-resistant Enterococcus faecium, sensitive to Macrobid. Will continue Macrobid for 4 more days. Plan: -Continue Macrobid for 4 more days #Hyperkalemia-resolved Potassium 5.6 on presentation, was given 1 L NS bolus in ED Potassium this morning - 5.1 Plan: -Follow potassium. #Macrocytosis Hemoglobin 12.5, MCV 102 on presentation, possibly in setting of liver disease Plan: - IV Cyanocobalamin given DVT prophylaxis: SCD GI prophylaxis: IV Protonix Diet: Cardiac Lines: Peripheral IV Code status: Full code Case was discussed with Dr Moreno PGY-2 and attending physician, Dr Seymour Moore MD PGY-1 Disclaimer: This note was dictated by speech recognition. Minor errors in trial judge may be present due to voice recognition software. Attending Provider Attestation/Addendum I have examined the patient, reviewed labs and imaging findings, discussed the case with the resident(s), and reviewed entered orders. I agree with the plan of care as outlined in this note, with these additional summaries/recommendations: Patient seen at bedside. No acute overnight events. Patient admitted for acute hepatic encephalopathy. Patients mental status continues to improve although not yet back to baseline. She was able to state her name, location although was unable to recall the present year.Ammonia 118 on admission. Possibly secondary to medication noncompliance +/- UTI. No evidence of SBP and abdominal exam today is benign. Continue lactulose 3 times daily and rifaximin. CT head on admission was negative. Hyperkalemia on admission has now resolved. Patient has decompensated liver cirrhosis and we will continue with low-sodium diet, IV albumin, limit Tylenol use, and fluid restriction. Patient has signs of synthetic liver dysfunction with coagulopathy, thrombocytopenia, and hyperbilirubinemia. Thrombocytopenia present although no signs of GI bleed at this time. We will continue to monitor for any evidence of GI bleed. Patient was also noted to have bilateral renal calculus from previous CT although does not appear to have any flank tenderness or urinary symptoms at this time. Urine cx positive and patient started on abx for possible UTI. Patient endorsed mild generalized abdominal tenderness today and abdominal US was obtained to evaluate for ascites and US significant for cirrhosis, splenomegaly, and suspicious for acute acalculous cholecystitis. Low suspicion for ACC at this time as ALP and LFTs relatively within normal limits, T bili chronically elevated. We will continue to monitor for now. Continue home meds as tolerated. Repeat hematology and chemistry panel in AM. Dr. Seymour MD
[2024-04-09] MEDS: LACTULOSE SYRUP 20 GM/30 ML UDC 30 GM PO ×2 (16:26→22:55)
[2024-04-09] MEDS: LACTOBACILLUS RHAMNOSUS 1 CAP PO (22:54)
[2024-04-10] VITALS (7 sets, daily range): BP systolic 101–121; BP diastolic 57–73; PULSE 59–73; RESP 16–18; TEMP 36.3–37.1; O2SAT 97–100
[2024-04-10] MEDS: HYDROcodone/APAP 5/325 TABLET 1 TAB PO (03:53)
[2024-04-10 05:40] LABS: Basophils % (Auto) 1 % (0-2.5); Eosinophils # (Auto) 0.2 Thou/mm3 (0.0-0.5); Eosinophils % (Auto) 5 % (0-10); Hematocrit 29.1 % (36.0-46.0); Hemoglobin 9.8 g/dL (12.0-16.0); Immature Granulocytes % (Auto) 0 % (0-0); Immature Granulocytes Auto 0.01 Thou/mm3 (0.00-0.00); Lymphocytes # (Auto) 1.3 Thou/mm3 (1.0-4.8); Lymphocytes % (Auto) 34 % (10-50); Mean Corpuscular HGB Conc 33.7 g/dl (31.0-37.0); Mean Corpuscular Hemoglobin 35.5 pg (25.0-35.0); Mean Corpuscular Volume 105 fL (80-100); Monocytes # (Auto) 0.4 Thou/mm3 (0.0-0.8); Monocytes % (Auto) 10 % (0-12); Neutrophils # (Auto) 1.9 Thou/mm3 (1.8-7.7); Neutrophils % (Auto) 50 % (37-80); Nucleated Red Blood Cell % 0 /100 WBC (0); RDW Standard Deviation 57.3 fL (36.4-46.3); Red Blood Count 2.76 Miln/mm3 (4.00-5.20); White Blood Count 3.7 Thou/mm3 (3.6-11.0)
[2024-04-10] MEDS: MIDODRINE 5 MG TABLET 10 MG PO ×2 (05:45→13:53)
[2024-04-10] MEDS: LACTULOSE SYRUP 20 GM/30 ML UDC 30 GM PO ×2 (05:45→13:53)
[2024-04-10 05:48] LABS: Platelet Count 48 Thou/mm3 (140-440)
[2024-04-10 06:15] LABS: Slide Review Platelets confirmed
[2024-04-10] MEDS: PANTOPRAZOLE INJ 40 MG VIAL IVP (08:33)
[2024-04-10] MEDS: LACTOBACILLUS RHAMNOSUS 1 CAP PO (08:34)
[2024-04-10] MEDS: rifaximin 550 MG TABLET PO (08:34)
[2024-04-10] MEDS: FOLIC ACID 1 MG TABLET PO (08:34)
[2024-04-10] MEDS: THIAMINE 100 MG TABLET PO (08:34)
[2024-04-10] MEDS: NITROFURANTOIN MACRO 100 MG CAPSULE PO (08:34)
[2024-04-10 09:33] LABS: Alanine Aminotransferase 13 U/L (10-49); Albumin, Serum 3.1 gm/dL (3.5-5.0); Alkaline Phosphatase 103 U/L (46-116); Anion Gap 7 (7-16); Aspartate Amino Transferase 32 U/L (0-34); BUN/Creatinine Ratio 11 Ratio (12-20); Bilirubin,Total 5.4 mg/dL (0.3-1.2); Blood Urea Nitrogen 9 mg/dL (9-23); Calcium 9.3 mg/dL (8.3-10.6); Carbon Dioxide 25.4 mMol/L (20.0-31.0); Chloride 107 mMol/L (98-107); Creatinine (Component) 0.8 mg/dL (0.6-1.3); Estimated Creatinine Clearance 71.5 mL/min (>60); Globulin 3.1 gm/dL (2.3-3.5); Glucose 143 mg/dL (74-106); Osmolality,Calculated 278 (275-295); Potassium 4.8 mMol/L (3.4-5.1); Sodium 139 mMol/L (136-145); Total Protein 6.2 gm/dL (5.7-8.2); eGFR > 60 See Note
--- NOTE | 2024-04-10 10:57 | CHAP ---
Patient was visited by a Spiritual Care Volunteer on 04/10/2024 between 0900 and 0948 and received comfort, encouragement, and/or prayer.
--- NOTE | 2024-04-10 13:40 | PC.SS ---
SS attempted to set up gurney transport through [facility]. However, multiple times they stated her insurance was termed. SS verified with financial reporting specialist that it is not. [facility] was not able to set up transportation. SS contacted [facility] and set up gurney transport for 5p.m. gurney tow picker. SS updated patient's mother. Patient and family requested [facility] as they had prior. Nursing aware.
--- NOTE | 2024-04-10 14:44 | PD.RESDS ---
Planned Discharge Date 04/10/24 DS: Providers Provider Date of admission: 04/05/24 23:36 Primary care physician: Physician No Primary/Family Admitting Provider: Willi Gutiérrez MD Attending Provider on Admission: Stephen Ahuja MD Consults: 04/06/24 08:00 Referral Wound Care Routine Comment: 04/06/24 11:13 Referral Nutritional Services Routine Comment: Wounds Attending Provider on DC: Stephen Ahuja MD Discharging Provider: Lan Moore MD DS: Diagnosis Problem List Completed Was Problem List Reviewed/Reconciled?: Yes Hospital Course Hospital Course Hospital course: The patient is a 53-year-old female with a past medical history of 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 Initial labs are significant for hyperammonemia, hyperbilirubinemia and thrombocytopenia. She was admitted for management of acute hepatic encephalopathy. The patient received 1 unit of platelets on this admission. She was started on lactulose, rifaximin and given vitamins for nutritional deficiency. The urinalysis and culture that was done a couple days prior to admission returned positive for E. coli and VRE in the urine and she was started on nitrofurantoin. Today, the patient is clinically and hemodynamically stable, mentation is back to baseline and she is medically cleared for discharge. She is recommended to follow-up with her PCP within 1 week of discharge as well as continue following staff therapist. She will also continue nitrofurantoin twice daily for 4 more days. #Acute hepatic encephalopathy #Hyperammonemia #Decompensated liver disease #VRE/E. coli UTI Discharge instructions: Follow up with PCP within 1 week of discharge. If you dont have a PCP, follow up with the [facility] at [facility] [address] [place] [address]. Call [phone] to make an appointment. Continue following gastrenterologist Restrict salt intake to 2gm daily and fluid to 1500cc daily Ensure to take lactulose daily, titrate to 2-3 bowel movements Continue nitrofurantoin 100mg twice daily for urinary tract infection Case was discussed with Dr Moreno PGY-2 and attending physician, Dr Seymour Moore MD PGY-1 Disclaimer: This note was dictated by speech recognition. Minor errors in school library media program director may be present due to voice recognition software. Status at Discharge Overall status at discharge: patient is back to baseline Time Spent with Patient Time attestation: Total time spent providing and/or coordinating discharge services: 45mins Time spent: Greater than 30 minutes Home Health Home Health Referral Orders: 04/09/24 10:20 Home Health Referral Routine Reason For Exam: Physical therapy Home-Bound The patient must either because of illness or injury, need the aid of supportive devices such as crutches, canes, wheelchairs, and walkers; the use of special transportation; or the assistance of another person in order to leave their place of residence; OR have a condition such that leaving his or her home is medically contraindicated. In addition, the patient also meets the following criteria: patient is normally unable to leave the home and leaving home requires considerable taxing effort. Addendum to Home Health Certification Practitioner's Certification: I certify that the patient has been under my care in the hospital and the care of attending physician (see below). We had a wjtv-va-duqa encounter on (see date below). My clinical findings indicate that the patient is home bound per the above criteria and the Home Health Services noted in these orders are medically necessary. The primary reason for the [id number]-yd-[id number] encounter is related to the fact that the patient requires home health services. Date Certifying Zedo-hq-Aaav Physician Encounter: 04/09/24 Physician's Name who will Assume Oversight for HH Services: Stacy Graff [facility] [place] - Community Resources: No PT to Evaluate: Yes PT to evaluate and provide a treatmnet plan to increase patient's mobility and strength. Wound Care: No IV Therapy: No RN Safety Evaluation: Yes RN to evaluate and create a plan of care that will produce positive outcomes. Palliative Treatment: No Palliative treatment and evaluate the need for hospice. Home Health Aide - Personal Care: Yes Home Health Aide to assist with any ADL's. Exam Vital Signs Temp Pulse Resp BP Pulse Ox O2 Del Method 98.4 F 62 16 112/61 97 Room Air 04/10/24 12:00 04/10/24 13:53 04/10/24 12:00 04/10/24 13:53 04/10/24 12:00 04/10/24 08:00 Narrative Exam GENERAL: AAOX3 NEURO: FISH SALTER grossly intact, moves extremities x4 HEENT: Moist mucosa. Eyes open, symmetrical, icteric CARDIO: No chest pain on palpation. Heart RRR, no obvious murmurs PULM: No noted coughing/dyspnea. Lungs CTA B/L GI: Abdomen soft, nondistended, no pain on palpation. BSx4 URO/TIGHTENING MACHINE OPERATOR:: No further abnormalities noted. SKIN/MSK/EXT: Some hyperpigmentation noted in skin Discharge Plan Plan Patient Disposition: HOME (Self Care) Patient condition on transfer: Stable Care Plan Goals: Follow up with PCP within 1 week of discharge. If you dont have a PCP, follow up with the [facility] at [address], [place]. Call [phone] to make an appointment. Continue following gastrenterologist Restrict salt intake to 2gm daily and fluid to 1500cc daily Ensure to take lactulose daily, titrate to 2-3 bowel movements Continue nitrofurantoin 100mg twice daily for urinary tract infection Prescriptions/Referrals Prescriptions/Med Rec: New nitrofurantoin monohyd/m-cryst 100 mg Capsule 100 mg PO BID 4 Days Qty: 8 0RF multivitamin with folic acid [Daily-Dena (with folic acid)] 400 mcg tablet 1 tab PO QAM Qty: 30 0RF Continued pantoprazole 40 mg tablet,delayed release (DR/EC) 40 mg PO QDAY Qty: 30 0RF lactulose 20 gram/30 mL Solution 30 g PO TID 30 Days Qty: 4050 1RF methocarbamol 750 mg Tablet 750 mg PO BID ergocalciferol (vitamin D2) [Vitamin D2] 1,250 mcg (50,000 unit) Capsule 1,250 mcg PO QWEEK oxycodone 5 mg tablet 5 mg PO Q12H PRN (Reason: Pain) Patient Comments: TAKE 1 TABLET BY MOUTH EVERY 12 HOURS NEEDED FOR PAIN furosemide 40 mg tablet 40 mg PO QDAY Patient Comments: TAKE 1 TABLET BY MOUTH DAILY cholestyramine (with sugar) 4 gram powder in packet 4 g PO BID Qty: 60 0RF Rx Instructions: administer w/meal; avoid other meds within 1hr before or 4-6hr after dose Xifaxan 550 mg tablet 550 mg PO BID Patient Comments: TAKE 1 TABLET BY MOUTH TWICE A DAY FOR 1 MONTH midodrine 10 mg tablet 10 mg PO TID Patient Comments: PLEASE SEE ATTACHED FOR DETAILED DIRECTIONS ferrous sulfate 325 mg (65 mg iron) tablet 325 mg PO DAILY Patient Comments: TAKE 1 TABLET BY MOUTH DAILY WITH ORANGE JUICE. -DO NOT GIVE CAFFEINE Discontinued lidocaine HCl [Lidocaine Viscous] 2 % Solution 5 ml PO 6 TIMES DAILY PRN (Reason: Pain) sulfamethoxazole-trimethoprim [Bactrim DS] 800-160 mg tablet 1 tab PO BID 7 Days Qty: 14 0RF Referrals: No Primary/Family,Physician [Primary Care Provider] - Patient/Caregiver Discharge Instructions Other Discharge Activity Instructions:: Follow up with PCP within 1 week of discharge. If you dont have a PCP, follow up with the [facility] at [address] [place] [address] [address]. [facility], [place]. Call [phone] to make an appointment. Continue following gastrenterologist Restrict salt intake to 2gm daily and fluid to 1500cc daily Ensure to take lactulose daily, titrate to 2-3 bowel movements Continue nitrofurantoin 100mg twice daily for urinary tract infection Education Materials: Ammonia, Wound Care, Liver Problems Signs Ch Print Language: Gambian Activity Restrictions/Additional Instructions: 1) MASD to abdominal fold. Prevention of IASD to palak area: cleanse with dimethicone barrier wipes (blue package) or soap and water, pat dry, apply z-guard BID/PRN 2) Stage 2 to left buttocks: cleanse with wound cleanser, pat dry, apply skin prep and cover with alleyven dressing daily and PRN for soiling or falling off. Stand Alone Forms: Mervat Award Info., Patient Portal Info Letter Discharge Order Discharge Orders: Discharge (Routine); Ordered 04/10/24 Ordered By: Lan oMore Quality Discharge Quality Measures VTE prophylaxis Attestestation Attestation I have examined the patient, reviewed labs and imaging findings, discussed the case with the resident(s), and reviewed entered orders. I agree with the plan of care as outlined in this note. Dr. Seymour MD
--- NOTE | 2024-04-11 09:44 | PC.CM ---
Luikath was discharged and has been followed by [facility]. I reviewed discharge disposition and is stated home. I changed the disposition to home health and I sent the referral to [facility].
--- NOTE | 2024-04-11 15:59 | PC.CM ---
patient accepted by [facility]. Start of care date set for 04/13.
== END 2024-04-10 15:53 | disposition home health service (06) | DRG 280 ==
LOC: SERX 23:44 → SERHOLD 04-06 06:07 → S3SX 04-06 06:07
PROVIDERS: Physician Assistant; Student in an Organized Health Care Education/Training Program; Admitting Provider Internal Medicine; Emergency Provider Emergency Medicine; Visit Provider Student in an Organized Health Care Education/Training Program
DX: K70.30 Alcoholic cirrhosis of liver without ascites (principal); K72.10 Chronic hepatic failure without coma; E11.9 Type 2 diabetes mellitus without complications; K76.82 Hepatic encephalopathy; N39.0 Urinary tract infection, site not specified; D69.6 Thrombocytopenia, unspecified; E87.5 Hyperkalemia; D75.89 Other specified diseases of blood and blood-forming organs; Z16.21 Resistance to vancomycin; E63.9 Nutritional deficiency, unspecified; N20.0 Calculus of kidney; B96.20 Unspecified Escherichia coli [E. coli] as the cause of diseases classified elsewhere
CPT/HCPCS: 36415; 36600; 70450; 76700; 80048; 80053; 80307; 80320; 80329; 81001; 81025; 82140; 82247; 82248; 82270; 82728; 82803; 83540; 83550; 83735; 84100; 84443; 84484; 85025; 85610; 85730; 86850; 86900; 86901; 86965; 87081; 93005; 93225; 96361; 96365; 99285; J2405; J2470; J3411; J3420; J3475; J3490; J7030; J7040; P9035; P9047; A9270; G0480

== ENCOUNTER 2024-04-13 08:47 | Inpatient (IN) | payer MEDICAID, SELFPAY ==
[2024-04-13] VITALS (36 sets, daily range): BP systolic 72–119; BP diastolic 44–75; PULSE 50–85; RESP 1–18; TEMP 36.2–37; O2SAT 91–100; BMI 28.3
--- NOTE | 2024-04-13 09:10 | XR_ITS ---
Examination: AP chest single view Technique one AP portable upright chest single view Exam date and time: April 13, 2024 at 0930 hrs. Comparison March 14, 2024 Indications: Hypotension chest pain today. Findings: Mild enlargement cardiac contour Moderate vascular congestion Subsegmental atelectasis left base No lobar pneumonia Moderate osteopenia Impression: Moderate vascular congestion
--- NOTE | 2024-04-13 09:10 | EKG_ITS ---
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
--- NOTE | 2024-04-13 09:10 | PC.NURSE ---
SUMMER FROM HOME FOR LETHARGY / WEAKNESS X YESTERDAY. PATIENT WAS HYPOTESIVE ON SCENE PER FAMILY AND EMS. PATIENT STATES SHE HAS BEEN FEELING WEAKER THAN NORMAL WITH [facility] 15 AND AMBULATORY WITH MAX ASSISTANCE. HX OF END STAGE LIVER DISEASE AND IS CANDIDATE FOR LIVER TRANSPLANT, DIABETES TYPE 2, HYPOTENSION, AND NKA.
--- NOTE | 2024-04-13 09:13 | PD.EDWEAK ---
ED Weakness RME/HPI General Chief complaint: Weakness Stated complaint: WEAKNESS / LETHARGY WITH HYPOTENSION Time Seen by Provider: 04/13/24 09:02 Arrival date/time: 04/13/24 08:47 RME / HPI RME / HPI Narrative: Patient is brought in by EMS for increasing weakness with a low blood pressure found at 100/70 at the home with EMS and when she came in here blood pressures in the 91 systolic range. She had a history of diabetes liver failure and evidently has cirrhosis secondary to alcohol abuse per the charge but patient states is due to [place] abuse. Either way she got some ascites and the discharge summary reveals hepatic encephalopathy as a cause of her recent admit for weakness. Denies any fever vomiting no blood in the stool that she is aware of. Related Data Home Medications ?Medication ?Instructions ?Recorded ?Confirmed midodrine 10 mg tablet 10 mg PO TID 01/12/24 04/06/24 rifaximin 550 mg tablet (Xifaxan) 550 mg PO BID 01/12/24 04/06/24 ferrous sulfate 325 mg (65 mg 325 mg PO DAILY 01/22/24 04/06/24 iron) tablet ergocalciferol (vitamin D2) 1,250 1,250 mcg PO QWEEK 02/06/24 04/06/24 mcg (50,000 unit) capsule (Vitamin D2) methocarbamol 750 mg tablet 750 mg PO BID 02/06/24 04/06/24 furosemide 40 mg tablet 40 mg PO QDAY 03/15/24 04/06/24 oxycodone 5 mg tablet 5 mg PO Q12H PRN Pain 03/15/24 04/06/24 Previous Rx's ?Medication ?Instructions ?Recorded pantoprazole 40 mg tablet,delayed 40 mg PO QDAY #30 tabs 10/15/23 release lactulose 20 gram/30 mL oral 30 g (45 mL) PO TID 30 days #4,050 01/31/24 solution mL cholestyramine (with sugar) 4 gram 4 g PO BID #60 ea 03/17/24 powder for susp in a packet multivitamin with folic acid 400 1 tab PO QAM #30 tabs 04/10/24 mcg tablet (Daily-Dena (with folic acid)) Allergies Allergy/AdvReac Type Severity Reaction Status Date / Time latex Allergy Severe Hives Verified 04/13/24 09:15 Review of Systems Review of Systems Narrative Review of Systems: Constitutional: SEE HPI +global weakness. DENIES; Fevers Eyes: DENIES; Loss of vision Head/Ear/Nose: DENIES; Loss of hearing Throat: DENIES; Dysphagia Cardiovascular: DENIES; Chest pain, dyspnea or syncope Respiratory: DENIES; Shortness of breath Gastrointestinal: DENIES; Rectal bleeding or melena. Genitourinary: DENIES; Dysuria (painful or difficult urination) Musculoskeletal: DENIES; Arthralgia (pain in a joint),; Skin: DENIES; Rash Neurological: DENIES; Loss of function or movement Psychiatric: DENIES; recent major life stressor, emotional problem, illicit drug use or abuse Endocrinology: DENIES; Weight change Hematologic/Lymphatic: DENIES; Abnormal bruising Allergic/Immunologic: DENIES; Urticaria (hives) Past Medical History Past Medical History NEUROLOGIC: Positive Neurological Disorders, Migraine and Spinal Cord Injury CARDIAC: Positive Hypotension GASTROINTESTINAL: Positive Gastrointestinal Disorders, Cirrhosis, Gastrointestinal Bleed, Esophageal Varices and Hemorrhoids REPRODUCTIVE: Positive Endometriosis and Previous Pregnancies MUSCULOSKELETAL: Positive Musculoskeletal Disorders ENDOCRINE: Positive Endocrine Disorders and Diabetes Mellitus Type 2 HEMATOLOGIC: Positive Blood Disorders and Anemia PSYCHO/SOCIAL: Positive Depression and Anxiety OTHER HISTORY: Positive Blood Transfusions Family History FAMILY HISTORY: Positive Family Psychiatric Problems and Family Cancer Surgical History SURGICAL: Positive Section Social History SMOKING STATUS: Never smoker SECOND HAND EXPOSURE: No SUBSTANCE USE: marijuana ED Exam Narrative Physical exam: Physical Exam: General: The vital signs were reviewed. Patient is alert awake and has a blunted flat affect and little slow in her reactions to questions. The patient is non-toxic, in no apparent distress and appears healthy with a patent airway, no respiratory distress and has no apparent circulatory problems. Head & Scalp: Normocephalic, atraumatic. Face: Appears normal and is without lesions, deformity. Ears: Left external pinna appears normal. Right external pinna appears normal. Eyes: The sclera is anicteric. No obvious photophobia. The Left and Right Orbit/Lid/Conjunctiva appears normal without swelling, discoloration or injection. Nose: The nose is without deformity, discharge or tenderness; Throat: Appears normal. The mucous membranes are pink and moist without exudates, redness or mass seen. The tongue appears normal. Neck: The neck is supple and no apparent mass or adenopathy. Chest: The chest wall is normal in size and symmetry and has no chest wall tenderness or crepitus. The patient displays normal ventilator effort without retractions, accessory muscle use and has adequate air movement bilaterally with no wheezes and no rales. Cardiovascular: Regular rate and rhythm; No murmurs, rubs, or gallops; Gastrointestinal: The abdomen appears slightly distended presuming has ascites No obvious hernias or mass. The abdomen is soft and benign, non-distended, with no pain, no guarding and no rebound tenderness. Bowel sounds are present and normal sounding. No CVA tenderness. Genitourinary: Rectal exam was done with got several hemorrhoidal tags one of them feels hard but not inflamed rectal exam was done with no masses felt. There is brown stool present although minimal and guaiac testing reveals guaiac positive reaction. Back/Spine: Normal inspection Extremities/Musculoskeletal/lymphatic: The bilateral upper and lower extremities are warm. There is no evidence of arterial insufficiency. There is no evidence of venous insufficiency/edema. The patient spontaneously moves bilateral upper and lower extremities with no pain and no limitation of movement. There is no apparent, injury or trauma. Skin: The skin is warm, dry and intact. No rashes. No petechia. No purpura. No abnormal bruising. The color is appropriate with no cyanosis. Mental status/Psychiatric: Mental status is appropriate for age. The patient has no apparent delusions, visual hallucinations, no apparent audible hallucinations. The patient has no apparent suicidal thoughts/ideation and no apparent homicidal thoughts/ideation. Neurological: The patient is awake, alert, interactive, cordial, cooperative and is oriented to name and situation. The patient follows commands and answers historical question with no impairment. There is no visual disturbance apparent. The pupils are equal and reactive bilaterally with normal eye movements and no diplopia The bilateral upper and lower extremities have normal strength, normal range of motion and normal functioning. The gait, station and balance were not tested due to acuity Course Quality Measures none Orders Category Date Time Status Bedside Blood Glucose NOW Care 04/13/24 09:10 Active Bedside COVID-19 Antigen Test NOW Care 04/13/24 09:29 Active Bedside Influenza A&B Antigen Test NOW Care 04/13/24 09:30 Completed EKG (ED ONLY) *Do not use* NOW Care 04/13/24 09:10 Completed Insert IV NOW Care 04/13/24 09:[address] head/brain wo con Stat Exams 04/13/24 13:04 Completed EKG (ED Only) Stat Exams 04/13/24 09:10 Draft XR chest 1V portable Stat Exams 04/13/24 09:10 Completed Alcohol, Blood Medical Stat Lab 04/13/24 09:50 Completed Ammonia Stat Lab 04/13/24 09:50 Completed B-Type Natriuretic Peptide Stat Lab 04/13/24 09:50 Completed Blood Culture (Lab) Stat Lab 04/13/24 09:50 Received CBC Stat Lab 04/13/24 09:50 Completed Comprehensive Metabolic Panel Stat Lab 04/13/24 09:50 Completed Drug Screen,Urine Stat Lab 04/13/24 13:55 Completed Lactate (Lactic Acid) Stat Lab 04/13/24 09:50 Completed Lactate (Lactic Acid) Stat Lab 04/13/24 16:00 Results Procalcitonin Stat Lab 04/13/24 09:50 Completed Prothrombin Time with INR Stat Lab 04/13/24 09:50 Completed Troponin I Stat Lab 04/13/24 09:50 Completed Type and Screen Stat Lab 04/13/24 09:50 Completed UA [Urinalysis] Stat Lab 04/13/24 15:15 Completed Urinalysis Stat Lab 04/13/24 13:55 Completed Urinalysis, C/S if Indicated Stat Lab 04/13/24 13:55 Completed Urine Culture Stat Lab 04/13/24 15:15 Received Venous Blood Gas Stat Lab 04/13/24 09:50 Completed Lactulose Syrup [Enulose Syrup] Med 04/13/24 12:36 Discontinued 60 gm PO X1 ONE Sodium Chloride 0.9% 1000 ml [Ns] 1,000 ml Med 04/13/24 09:09 Discontinued IV 1,000 mls/hr Sodium Chloride 0.9% 1000 ml [Ns] 1,000 ml Med 04/13/24 10:51 Discontinued IV 999 mls/hr Sodium Chloride 0.9% 1000 ml [Ns] 2,000 ml Med 04/13/24 09:09 Active IV 150 mls/hr Sodium Chloride 0.9% 500 ml [Ns] 500 ml Med 04/13/24 11:23 Discontinued IV 999 mls/hr cefTRIAXone [Rocephin] 1,000 mg Med 04/13/24 14:49 Discontinued SODIUM CHLORIDE 0.9% (Popper) [NS 0.9% (Popper)] 50 ml IV X1 Vital Signs Vital signs: Vital Signs Temperature 98.2 F 04/13/24 09:03 Respiratory Rate 12 04/13/24 09:03 Blood Pressure 101/62 04/13/24 09:03 Pulse Oximetry (%) 96 04/13/24 09:03 Oxygen Delivery Method Room Air 04/13/24 09:03 Pulse ox is 96% on room air which is adequate. Weakness MDM Narrative MDM Narrative:: Patient was just in the hospital and discharged what sounds a similar where she had hepatic encephalopathy and has cirrhosis secondary to EtOH treatment of the patient today minimizes that stating that is from her [place] abuse. Either way she is lethargic but arousable blood pressure is borderline low at 91 which is close to her baseline of 100s. Will do an altered mental status workup and see what we find. There is no injury or head trauma. She does not report any blood loss. Medical workup reveals white count of 5.60 110.6 MCV of 104 platelet count of 49,000 which is low but chronically. PT is 19.3 and INR is 1.8 this is a chronic coagulopathy pH 7.34 sodium 136 potassium 5.3 chloride 105 CO2 25.6 anion gap is 6 glucose 126 lactic acid initially was 1.9 Calcium is slightly elevated at 10.5 which is the corrected calcium. Total bilirubin is 4.8 AST is 47 ALT is 21 ammonia is 44 BNP is 474 troponin was negative. Urinalysis came back with 27 white cells and 11,197 red blood cells. Drug screen is positive for opiates only as alcohol is negative. Note patient was hypotensive when she arrived in the 80s and later went down to 70s. Patient got 2-1/2 L fluid bolus and the blood pressure came up to the low 100s and then dipped down to the mid 90s and has been staying there. The pulse has been in the 70s. The only positive finding today for weakness was urinary tract infection and presumably dehydration from either sepsis or diuresis. After the 3 L of fluid I contacted the hospitalist about admission since she is weak and required so much fluid. Discussion with Dr. Hernandes was to get a second lactic acid and ambulate the patient. His assessment of the labs was things are actually better than the previous admission. We tried to walk the patient and though she could barely stand she is unsteady and would be unsafe to A second lactic acid was done came back at 2.9 which is actually gone up despite 3 L of fluid. At [address] Hernandes was called back and he will admit the patient started out further. At 1755 hrs. of blood pressure is 81 systolic pulse is in the 70s she appears relatively comfortable we will give another fluid bolus and Dr. Duque will assume care. S dc summary from 3 days ago. 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 Initial labs are significant for hyperammonemia, hyperbilirubinemia and thrombocytopenia. She was admitted for management of acute hepatic encephalopathy. The patient received 1 unit of platelets on this admission. She was started on lactulose, rifaximin and given vitamins for nutritional deficiency. The urinalysis and culture that was done a couple days prior to admission returned positive for E. coli and VRE in the urine and she was started on nitrofurantoin. Today, the patient is clinically and hemodynamically stable, mentation is back to baseline and she is medically cleared for discharge. She is recommended to follow-up with her PCP within 1 week of discharge as well as continue following teleservices representative. She will also continue nitrofurantoin twice daily for 4 more days. #Acute hepatic encephalopathy #Hyperammonemia #Decompensated liver disease Patient data External records reviewed:: [facility] previous records (I reviewed admission from 04/05/2024 through 04/11/2024 ) and EMS form Clinical information provided by:: patient and EMS Social determinants that could affect healthcare access:: none Patient has the following chronic illnesses:: liver cirrhosis, end stage liver disease, diabetes, esophageal varices s/p band ligation, previous admissions for GIB, chronic back pain How is presenting disease/condition affected by chronic disease/condition?: exacerbated by Evaluation data The following diagnostics were reviewed and interpreted by me:: lab results, radiology exam(s) and EKG tracing(s) (Sinus bradycardia, rate 56, no STEMI ) Lab and/or radiology exams considered but not ordered:: None Interpretation Summary: Ordering Physician: Arie Matt MD Date of Service: 04/13/24 Procedure(s): XR chest 1V portable Accession Number(s): [id number] cc: Arie Matt MD; Aiden Drew MD~ Examination: AP chest single view Technique one AP portable upright chest single view Exam date and time: April 13, 2024 at 0930 hrs. Comparison March 14, 2024 Indications: Hypotension chest pain today. Findings: Mild enlargement cardiac contour Moderate vascular congestion Subsegmental atelectasis left base No lobar pneumonia Moderate osteopenia Impression: Moderate vascular congestion Dictated By: Aiden Drew MD Signed By: <Electronically signed by Aiden Drew MD in [place]> 04/13/24 0944 Ordering Physician: Arie Matt MD Date of Service: 04/13/24 Procedure(s): CT head/brain wo con Accession Number(s): [id number] cc: Stacy Graff; Arie Matt MD; Aiden Drew MD~ Examination: CT brain head without contrast. 2-D sagittal coronal reconstructions Date and time of exam:April 13, 2024 1250 hrs. Indications: Onset altered mental status and generalized body weakness beginning 2 days ago CTDI: vol (mGy):53.1 DLP: (mGycm):995 Technique: Multiple CT axial sections of the brain have been obtained, 5 mm slice thickness. Contrast has not been administered. 2-D sagittal, coronal reconstructions have been obtained Low dose protocols were performed. One or more of the following dose reduction techniques were used; automated exposure control, adjustment of the mA and/or KV according to patient size, use of iterative reconstruction technique. Findings: No significant ventricular enlargement. Intra-axial or extra-axial hemorrhage density is not seen. No mass effect or midline shift Basal cisterns are not remarkable. Fourth ventricle is midline. Cranial vault intact. Impression: Negative for acute hemorrhage, mass effect or midline shift Advise clinical correlation follow-up accordingly Dictated By: Aiden Drew MD Signed By: <Electronically signed by Aiden Drew MD in [place]> 04/13/24 1322 Medications / Prescriptions Medications or Prescriptions considered but not ordered:: None Medication administrations:: Medication Administration History Ferrous Sulfate (Ferrous Sulf 325 Mg Tablet) 325 mg PO DAILY CELINA Stop: 05/14/24 08:59 Sodium Chloride (Ns) 2,000 mls @ 150 mls/hr IV .[id number] ONE Stop: 04/13/24 22:28 Last Admin: 04/13/24 11:23 Dose: 150 mls/hr Documented By: ELIZABETH Ceftriaxone Sodium 1,000 mg/ (Sodium Chloride) 50 mls @ 100 mls/hr IV QDAY@1400 CELINA Stop: 04/21/24 13:59 Lactulose (Lactulose Syrup 20 Gm/30 Ml Udc) 30 gm PO TID CELINA; Protocol Stop: 05/13/24 21:59 Midodrine (Midodrine 5 Mg Tablet) 10 mg PO TID CELINA Stop: 05/13/24 17:59 Pantoprazole Sodium (Pantoprazole 40 Mg Tablet) 40 mg PO QDAY CELINA Stop: 05/14/24 08:59 Discontinued Medications Sodium Chloride (Ns) 1,000 mls @ 1,000 mls/hr IV .Q1H ONE Stop: 04/13/24 10:08 Last Infusion: 04/13/24 10:52 Dose: Infused Documented By: Admin: 04/13/24 09:59 Dose: 1,000 mls/hr Documented By: ELIZABETH Sodium Chloride (Ns) 1,000 mls @ 999 mls/hr IV .Q1H1M ONE Stop: 04/13/24 11:51 Last Infusion: 04/13/24 11:15 Dose: Infused Documented By: Admin: 04/13/24 10:30 Dose: 999 mls/hr Documented By: ELIZABETH Sodium Chloride (Ns) 500 mls @ 999 mls/hr IV .Q31M ONE Stop: 04/13/24 11:53 Last Infusion: 04/13/24 11:54 Dose: Infused Documented By: Admin: 04/13/24 11:23 Dose: 999 mls/hr Documented By: ELIZABETH Ceftriaxone Sodium 1,000 mg/ (Sodium Chloride) 50 mls @ 100 mls/hr IV X1 ONE Stop: 04/13/24 15:18 Last Infusion: 04/13/24 16:35 Dose: Infused Documented By: Admin: 04/13/24 16:02 Dose: 100 mls/hr Documented By: ELIZABETH Lactulose (Lactulose Syrup 20 Gm/30 Ml Udc) 60 gm PO X1 ONE; Protocol Stop: 04/13/24 12:37 Last Admin: 04/13/24 13:52 Dose: 60 gm Documented By: JORDAN See above Consultations Consultation(s) initiated? (list below): Yes Consultation #1 (Physician, Specialty, Details): I spojke with hospitalist Dr. hernandes. Discussed patients PMHx, HPI, ED course, exam findings, labs, and radiology results. The hospitalist agree to accept the patient for admission. Diagnosis Weakness Differential Diagnosis: acute myocardial infarction, anemia, hypoglycemia, sepsis, dehydration and other (elevated ammonia levels, hepatic encephalopathy ) Most likely diagnosis given after review of the tests above:: Lethargy Cirrhosis Guaiac positive Hematuria coagulopathy Admission Indicated Admission indicated?: indicated Admission Request Was there a request for admission?: Yes Admission Attestation Admission request attestation: Discussed case with [] from Hospitalist service regarding admission. Discussed patients ED course, exam findings, labs, and radiology results. The Hospitalist [agrees,declines] to accept the patient for admission. Disposition Plan Disposition Plan: Admit Critical Care Time Critical Care Time Critical Care Time: Yes Total Critical Care Time (min.): 70 Attestation: The high probability of sudden, clinically significant deterioration in the patient's condition required the highest level of my preparedness to intervene urgently. The services I provided to this patient were to treat and/or prevent clinically significant deterioration. Services included the following: chart data review, reviewing nursing notes and/or old charts, documentation time, energy consultant collaboration regarding findings and treatment options, medication orders and management, direct patient care, vital sign assessments and ordering, interpreting and reviewing diagnostic studies and lab tests. Aggregate critical care time includes only time during which I was engaged in work directly related to the patient's care, as described above, whether at bedside or elsewhere in the Emergency Department. It did not include time spent performing other reported procedures or the services of residents, students, nurses or physician assistants. Discharge Plan Plan Patient Disposition: Admit Acute Care w/in Hospital Disposition Comment: Hospitalist About Problem List Clinical Impression: Lethargy, Cirrhosis, Guaiac positive stools, Coagulopathy, Acute hypotension, Urinary tract infection, Hematuria, Thrombocytopenia
[2024-04-13] MEDS: SODIUM CHLORIDE 0.9% 1000 ML 1,000 ML IV (09:59)
[2024-04-13 10:02] LABS: Base Excess, Venous 0 (-3-3); O2 Saturation, Venous 48 % (96-97); PCO2, Venous 47 mmHg (36-56); PO2, Venous 30 mmHg (15-58); pH, Venous 7.34 (7.33-7.66)
[2024-04-13 10:03] LABS: Lactate (Lactic Acid) 1.9 mMol/L (0.4-2.0)
[2024-04-13 10:08] LABS: Basophils % (Auto) 1 % (0-2.5); Eosinophils # (Auto) 0.3 Thou/mm3 (0.0-0.5); Eosinophils % (Auto) 5 % (0-10); Hematocrit 30.6 % (36.0-46.0); Hemoglobin 10.6 g/dL (12.0-16.0); Immature Granulocytes % (Auto) 0 % (0-0); Immature Granulocytes Auto 0.01 Thou/mm3 (0.00-0.00); Lymphocytes # (Auto) 1.4 Thou/mm3 (1.0-4.8); Lymphocytes % (Auto) 24 % (10-50); Mean Corpuscular HGB Conc 34.6 g/dl (31.0-37.0); Mean Corpuscular Hemoglobin 35.9 pg (25.0-35.0); Mean Corpuscular Volume 104 fL (80-100); Monocytes # (Auto) 0.4 Thou/mm3 (0.0-0.8); Monocytes % (Auto) 7 % (0-12); Neutrophils # (Auto) 3.6 Thou/mm3 (1.8-7.7); Neutrophils % (Auto) 63 % (37-80); Nucleated Red Blood Cell % 0 /100 WBC (0); RDW Standard Deviation 57.9 fL (36.4-46.3); Red Blood Count 2.95 Miln/mm3 (4.00-5.20); White Blood Count 5.6 Thou/mm3 (3.6-11.0)
[2024-04-13 10:15] LABS: INR 1.8 (0.9-1.3); Prothrombin Time 19.3 Seconds (9.0-12.2)
[2024-04-13 10:20] LABS: Platelet Count 49 Thou/mm3 (140-440)
[2024-04-13 10:21] LABS: Ammonia 44 uMol/L (11-32)
[2024-04-13] MEDS: SODIUM CHLORIDE 0.9% 1000 ML 1,000 ML 999 ML IV ×2 (10:30→17:45)
[2024-04-13 10:33] LABS: Alanine Aminotransferase 21 U/L (10-49); Albumin, Serum 3.3 gm/dL (3.5-5.0); Alcohol, Blood Medical < 3.0 mg/dL (0-10.0); Alkaline Phosphatase 161 U/L (46-116); Anion Gap 6 (7-16); Aspartate Amino Transferase 47 U/L (0-34); BUN/Creatinine Ratio 19 Ratio (12-20); Bilirubin,Total 4.8 mg/dL (0.3-1.2); Blood Urea Nitrogen 23 mg/dL (9-23); Calcium 9.9 mg/dL (8.3-10.6); Calcium (Corrected) 10.5 mg/dL (8.5-10.1); Carbon Dioxide 25.3 mMol/L (20.0-31.0); Chloride 105 mMol/L (98-107); Creatinine (Component) 1.2 mg/dL (0.6-1.3); Estimated Creatinine Clearance 44.4 mL/min (>60); Globulin 3.3 gm/dL (2.3-3.5); Glucose 126 mg/dL (74-106); Osmolality,Calculated 277 (275-295); Potassium 5.3 mMol/L (3.4-5.1); Sodium 136 mMol/L (136-145); Total Protein 6.6 gm/dL (5.7-8.2); Troponin I < 0.020 ng/mL (0.0-0.045); eGFR 54 See Note
[2024-04-13 10:38] LABS: B-Type Natriuretic Peptide 474 pg/mL (0-100)
[2024-04-13 11:21] LABS: Slide Review Platelets confirmed
[2024-04-13] MEDS: SODIUM CHLORIDE 0.9% 1000 ML 2,000 ML 150 ML IV (11:23)
[2024-04-13] MEDS: SODIUM CHLORIDE 0.9% 500 ML 500 ML 999 ML IV (11:23)
--- NOTE | 2024-04-13 13:04 | XR_ITS ---
Examination: CT brain head without contrast. 2-D sagittal coronal reconstructions Date and time of exam:April 13, 2024 1250 hrs. Indications: Onset altered mental status and generalized body weakness beginning 2 days ago CTDI: vol (mGy):53.1 DLP: (mGycm):995 Technique: Multiple CT axial sections of the brain have been obtained, 5 mm slice thickness. Contrast has not been administered. 2-D sagittal, coronal reconstructions have been obtained Low dose protocols were performed. One or more of the following dose reduction techniques were used; automated exposure control, adjustment of the mA and/or KV according to patient size, use of iterative reconstruction technique. Findings: No significant ventricular enlargement. Intra-axial or extra-axial hemorrhage density is not seen. No mass effect or midline shift Basal cisterns are not remarkable. Fourth ventricle is midline. Cranial vault intact. Impression: Negative for acute hemorrhage, mass effect or midline shift Advise clinical correlation follow-up accordingly
[2024-04-13] MEDS: LACTULOSE SYRUP 20 GM/30 ML UDC 60 GM PO (13:52)
[2024-04-13 14:06] LABS: Collection Type, Urine Clean Catch
[2024-04-13 14:22] LABS: Bacteria,Urine Rare; Bilirubin,Urine Negative (Negative); Blood,Urine 3+ (Negative); Clarity,Urine Turbid (Clear/Hazy); Color,Urine Yellow (Lt Yel-Yel); Culture Indicated,Urine Contaminated; Glucose, Urine Negative (Negative); Ketones,Urine Negative (Negative); Leukocyte Esterase,Urine Positive (Negative); Nitrite,Urine Negative (Negative); Protein,Urine 1+ (Neg - Trace); RBC,Urine 176 /hpf (0-3); Specific Gravity,Urine 1.019 (1.001-1.035); Squamous Epithelial Cell,Urine 13 /hpf (0-5); Urobilinogen,Urine Negative mg/dL (0.0-1.0); WBC,Urine 107 /hpf (0-5)
[2024-04-13 14:24] LABS: Amphetamine/Methamp Scrn,U Negative (Negative); Barbiturate Screen,Urine Negative (Negative); Benzodiazepines Screen,Urine Negative (Negative); Benzoylecgonine Screen, Ur Negative (Negative); Fentanyl Screen,Urine Negative (Negative); Opiate Screen,Urine Positive (Negative); THC Screen,Urine Negative (Negative)
[2024-04-13 15:32] LABS: Collection Type, Urine Catheter
[2024-04-13 15:59] LABS: Bilirubin,Urine Negative (Negative); Blood,Urine 3+ (Negative); Clarity,Urine Turbid (Clear/Hazy); Color,Urine Yellow (Lt Yel-Yel); Glucose, Urine Negative (Negative); Hyaline Casts,Urine < 1 /hpf (0-1); Ketones,Urine Negative (Negative); Leukocyte Esterase,Urine Positive (Negative); Nitrite,Urine Negative (Negative); Protein,Urine Trace (Neg - Trace); RBC,Urine 1197 /hpf (0-3); Specific Gravity,Urine 1.021 (1.001-1.035); Squamous Epithelial Cell,Urine 2 /hpf (0-5); Urobilinogen,Urine Negative mg/dL (0.0-1.0); WBC,Urine 27 /hpf (0-5)
[2024-04-13] MEDS: cefTRIAXone 1,000 MG in SODIUM CHLORIDE 0.9% (Popper) 50 ML 100 MG IV (16:02)
[2024-04-13 16:13] LABS: Lactate (Lactic Acid) 2.9 mMol/L (0.4-2.0)
[2024-04-13 18:24] LABS: Lactate (Lactic Acid) 2.6 mMol/L (0.4-2.0)
--- NOTE | 2024-04-13 18:24 | PD.HHHP ---
Documentation for date of: 04/13/24 HPI - Hospitalist History of Present Illness History of present illness: 53-year-old female with end-stage liver disease with subsequent esophageal varices status post banding who was recently discharged on 04/10/2023 for decompensated liver disease who presented to the ER once again with complaints of generalized weakness found to have hypotension with lactic acidosis. Patient states that she was at home when all of a sudden started feeling fatigue and tired and has been taking her lactulose and Lasix however continued to be tired for which prompted an ER visit. In the ER, again patient noted to be hypotensive and subsequently received 2.5 L of normal saline subsequently blood pressure improved and internal medicine was consulted for admission. Currently denies any blood in stool or blood in vomit, reports patient has been feeling nauseous, no episodes of emesis. Past medical history: End-stage liver disease, alcohol use disorder Allergies: No known drug allergies Medication: Midodrine 10 mg 3 times daily, lactulose, Lasix 40 mg daily, multivitamin Surgical history: Appendectomy, 2 , 2 laparoscopic procedures for endometriosis Social history: Denies any tobacco use, alcohol or illicit drug use Family history: Denies any pertinent family history denies any family history of liver or heart disease Review of Systems Review of Systems Narrative Review of Systems: General: Denies fevers or chills. Heart: Denies chest pain or palpitation Lungs: Denies shortness of breath or cough . Abdomen: Denies diarrhea, constipation, bright red blood per rectum or melena. Neurology: Denies any changes in vision, weakness or difficulty speaking. The rest of review of system is otherwise negative except what is mentioned above Meds Home Medications and Allergies Home Medications ?Medication ?Instructions ?Recorded ?Confirmed ?Type midodrine 10 mg tablet 10 mg PO TID 01/12/24 04/06/24 History rifaximin 550 mg tablet (Xifaxan) 550 mg PO BID 01/12/24 04/06/24 History ferrous sulfate 325 mg (65 mg 325 mg PO DAILY 01/22/24 04/06/24 History iron) tablet ergocalciferol (vitamin D2) 1,250 1,250 mcg PO QWEEK 02/06/24 04/06/24 History mcg (50,000 unit) capsule (Vitamin D2) methocarbamol 750 mg tablet 750 mg PO BID 02/06/24 04/06/24 History furosemide 40 mg tablet 40 mg PO QDAY 03/15/24 04/06/24 History oxycodone 5 mg tablet 5 mg PO Q12H PRN Pain 03/15/24 04/06/24 History Allergies Allergy/AdvReac Type Severity Reaction Status Date / Time latex Allergy Severe Hives Verified 04/13/24 09:15 Exam Vital Signs Temp Pulse Resp BP Pulse Ox O2 Del Method 97.8 F 66 15 104/62 98 Room Air 04/13/24 18:00 04/13/24 18:00 04/13/24 18:00 04/13/24 18:00 04/13/24 18:00 04/13/24 18:00 Narrative Physical Exam: General: Alert and oriented to name, date of and place HEENT: Normocephalic, atraumatic Cardiac: Regular rate and rhythm, no murmurs Lungs: Clear to auscultation with no wheezing or crackles Abdomen: Nondistended, nontender positive bowel sounds. No guarding or rebound tenderness. Neurology: Cranial nerves II to XII intact and patient able to move all 4 extremities. Skin: No rash or edema. Results - Hospitalist Labs Labs: Short CBC 04/13/24 Range/Units 09:50 WBC 5.6 D (3.6-11.0) Thou/mm3 Hgb 10.6 L (12.0-16.0) g/dL Hct 30.6 L (36.0-46.0) % Plt Count 49 L (140-440) Thou/mm3 BMP 04/13/24 09:50 Sodium 136 Potassium 5.3 H Chloride 105 Carbon Dioxide 25.3 BUN 23 Creatinine 1.2 Glucose 126 H Calcium 9.9 Cardiac Enzymes 04/13/24 Range/Units 09:50 Troponin I < 0.020 (0.0-0.045) ng/mL Liver Function 04/13/24 Range/Units 09:50 Total Bilirubin 4.8 H (0.3-1.2) mg/dL AST 47 H (0-34) U/L ALT 21 (10-49) U/L Alkaline Phosphatase 161 H (46-116) U/L Albumin 3.3 L (3.5-5.0) gm/dL Urine 04/13/24 04/13/24 Range/Units 13:55 15:15 Urine Color Yellow Yellow (Lt Yel-Yel) Urine Clarity Turbid A Turbid A (Clear/Hazy) Urine pH 6.0 6.0 (5.0-7.0) Ur Specific [place] 1.019 1.021 (1.001-1.035) Urine Protein 1+ A Trace (Neg - Trace) Urine Glucose (UA) Negative Negative (Negative) ABG Interpretation ABG results: 04/13/24 09:50 VBG pH 7.34 VBG pCO2 47 VBG pO2 30 VBG Base Excess 0 Assessment & Plan -Hospitalist Patient Synopsis 1. Hypotension 2. Lactic acidosis ? Likely related to decreased p.o. intake and patient being on lactulose and Lasix ? Did not receive midodrine all today ? Patient did receive 2.5 L of fluid and will resume her midodrine ? Will give 100 g of albumin ? Low suspicion for infectious etiology and plan to continue monitoring patient closely 2. Decompensated liver disease 3. Thrombocytopenia 4. Hyperbiliribunemia 5. Transaminitis - Plan to continue Lactulose and hold off on Lasix given hypotension 6. Macrocytic anmia - No evidence of bleeding - Monitor daily CBC DVT prophylaxis: SCD GI prophylaxis: IV Protonix Diet: Cardiac Lines: Peripheral IV Code status: Full code Quality Measures Quality Measures none
--- NOTE | 2024-04-13 18:28 | PC.CC ---
Patient is a 53 year-old female who present to the hospital for Lactic Acidosis/Hypotension. ASWOfe made [id number] contact with patient. ASW introduced self, role, and reason for visit. Patient appeared alert and oriented to self, location, and situation. Patient was pleasant and engaged in initial assessment. Patient confirmed information on demographics. Per patient, her medical decision maker in the event she is unable to make her own medical decisions is her mother Gemma Knight . At home patient ambulates with assistance of a wheelchair and/or walker. Patient needs assistance in completing her ADLs. Patient's mother assist with help with ADLs. Patient receives primary care at [facility]. Upon discharge patient plans to return home. food and nutrition services assistant to follow up with any discharge needs.
[2024-04-13 18:32] LABS: Basophils % (Auto) 1 % (0-2.5); Eosinophils # (Auto) 0.1 Thou/mm3 (0.0-0.5); Eosinophils % (Auto) 3 % (0-10); Hematocrit 26.4 % (36.0-46.0); Immature Granulocytes % (Auto) 0 % (0-0); Immature Granulocytes Auto 0.01 Thou/mm3 (0.00-0.00); Lymphocytes # (Auto) 0.7 Thou/mm3 (1.0-4.8); Lymphocytes % (Auto) 20 % (10-50); Mean Corpuscular HGB Conc 34.1 g/dl (31.0-37.0); Mean Corpuscular Hemoglobin 35.4 pg (25.0-35.0); Mean Corpuscular Volume 104 fL (80-100); Monocytes # (Auto) 0.3 Thou/mm3 (0.0-0.8); Monocytes % (Auto) 8 % (0-12); Neutrophils # (Auto) 2.5 Thou/mm3 (1.8-7.7); Neutrophils % (Auto) 68 % (37-80); Nucleated Red Blood Cell % 0 /100 WBC (0); RDW Standard Deviation 60.3 fL (36.4-46.3); Red Blood Count 2.54 Miln/mm3 (4.00-5.20); White Blood Count 3.7 Thou/mm3 (3.6-11.0)
[2024-04-13 18:39] LABS: Platelet Count 33 Thou/mm3 (140-440)
[2024-04-13] MEDS: MIDODRINE 5 MG TABLET 10 MG PO ×2 (18:40→22:54)
[2024-04-13 18:45] LABS: Albumin, Serum 2.9 gm/dL (3.5-5.0); Anion Gap 7 (7-16); BUN/Creatinine Ratio 18 Ratio (12-20); Blood Urea Nitrogen 18 mg/dL (9-23); Calcium 8.8 mg/dL (8.3-10.6); Calcium (Corrected) 9.7 mg/dL (8.5-10.1); Chloride 115 mMol/L (98-107); Estimated Creatinine Clearance 53.3 mL/min (>60); Glucose 128 mg/dL (74-106); Osmolality,Calculated 285 (275-295); Phosphorous 3.7 mg/dL (2.4-5.1); Potassium 5.4 mMol/L (3.4-5.1); Sodium 141 mMol/L (136-145); eGFR > 60 See Note
[2024-04-13] MEDS: ALBUMIN HUMAN 25% IVPB 12.5 GM/50 ML BTL IV (18:45)
[2024-04-13 19:08] LABS: Reflex Lactate? Y
[2024-04-13] MEDS: ALBUMIN HUMAN 25% IVPB 25 GM/100 ML BTL IV ×2 (21:13→23:04)
[2024-04-13 21:24] LABS: Reflex Lactate? Y
[2024-04-13 21:28] LABS: Lactic Acid, 3 HR 2.4 mMol/L (0.4-2.0)
--- NOTE | 2024-04-13 21:42 | PC.NURSE ---
Report called to Janee. Pt taken to [id number] on monitor.
[2024-04-13] MEDS: LACTULOSE SYRUP 20 GM/30 ML UDC 30 GM PO (22:54)
[2024-04-14] VITALS (9 sets, daily range): BP systolic 95–115; BP diastolic 51–65; PULSE 58–70; RESP 15–19; TEMP 36.7–37.2; O2SAT 95–99; BMI 33.8
[2024-04-14] MEDS: ALBUMIN HUMAN 25% IVPB 25 GM/100 ML BTL IV ×2 (00:08→11:44)
[2024-04-14] MEDS: LACTULOSE SYRUP 20 GM/30 ML UDC 30 GM PO ×2 (05:26→21:50)
[2024-04-14] MEDS: MIDODRINE 5 MG TABLET 10 MG PO ×3 (05:27→21:51)
[2024-04-14 06:04] LABS: Basophils % (Auto) 1 % (0-2.5); Eosinophils # (Auto) 0.1 Thou/mm3 (0.0-0.5); Eosinophils % (Auto) 4 % (0-10); Hematocrit 22.8 % (36.0-46.0); Immature Granulocytes % (Auto) 0 % (0-0); Immature Granulocytes Auto 0.01 Thou/mm3 (0.00-0.00); Lymphocytes # (Auto) 0.9 Thou/mm3 (1.0-4.8); Lymphocytes % (Auto) 30 % (10-50); Mean Corpuscular HGB Conc 33.3 g/dl (31.0-37.0); Mean Corpuscular Volume 108 fL (80-100); Monocytes # (Auto) 0.3 Thou/mm3 (0.0-0.8); Monocytes % (Auto) 11 % (0-12); Neutrophils # (Auto) 1.6 Thou/mm3 (1.8-7.7); Neutrophils % (Auto) 54 % (37-80); Nucleated Red Blood Cell % 0 /100 WBC (0); RDW Standard Deviation 63.5 fL (36.4-46.3); Red Blood Count 2.11 Miln/mm3 (4.00-5.20)
[2024-04-14 06:09] LABS: White Blood Count 2.9 Thou/mm3 (3.6-11.0)
[2024-04-14 06:10] LABS: Hemoglobin 7.6 g/dL (12.0-16.0); Platelet Count 27 Thou/mm3 (140-440)
[2024-04-14 06:28] LABS: Alanine Aminotransferase 13 U/L (10-49); Albumin, Serum 3.5 gm/dL (3.5-5.0); Albumin/Globulin Ratio 1.4 (1.2-2.2); Alkaline Phosphatase 82 U/L (46-116); Anion Gap 8 (7-16); Aspartate Amino Transferase 30 U/L (0-34); BUN/Creatinine Ratio 17 Ratio (12-20); Bilirubin,Total 4.8 mg/dL (0.3-1.2); Blood Urea Nitrogen 17 mg/dL (9-23); Calcium 9.4 mg/dL (8.3-10.6); Calcium (Corrected) 9.8 mg/dL (8.5-10.1); Chloride 115 mMol/L (98-107); Estimated Creatinine Clearance 58.5 mL/min (>60); Globulin 2.5 gm/dL (2.3-3.5); Glucose 141 mg/dL (74-106); Osmolality,Calculated 286 (275-295); Potassium 4.7 mMol/L (3.4-5.1); Sodium 142 mMol/L (136-145); eGFR > 60 See Note
[2024-04-14 06:30] LABS: Slide Review Platelets confirmed
[2024-04-14] MEDS: PANTOPRAZOLE 40 MG TABLET PO (08:05)
[2024-04-14] MEDS: FERROUS SULF 325 MG TABLET PO (08:06)
[2024-04-14 08:54] LABS: Basophils % (Auto) 0 % (0-2.5); Eosinophils # (Auto) 0.1 Thou/mm3 (0.0-0.5); Eosinophils % (Auto) 4 % (0-10); Hematocrit 25.1 % (36.0-46.0); Immature Granulocytes % (Auto) 0 % (0-0); Immature Granulocytes Auto 0.01 Thou/mm3 (0.00-0.00); Lymphocytes # (Auto) 0.8 Thou/mm3 (1.0-4.8); Lymphocytes % (Auto) 29 % (10-50); Mean Corpuscular HGB Conc 33.9 g/dl (31.0-37.0); Mean Corpuscular Hemoglobin 35.9 pg (25.0-35.0); Mean Corpuscular Volume 106 fL (80-100); Monocytes # (Auto) 0.3 Thou/mm3 (0.0-0.8); Monocytes % (Auto) 9 % (0-12); Neutrophils # (Auto) 1.6 Thou/mm3 (1.8-7.7); Neutrophils % (Auto) 58 % (37-80); Nucleated Red Blood Cell % 0 /100 WBC (0); Red Blood Count 2.37 Miln/mm3 (4.00-5.20)
[2024-04-14 08:57] LABS: Hemoglobin 8.5 g/dL (12.0-16.0); Platelet Count 31 Thou/mm3 (140-440); White Blood Count 2.8 Thou/mm3 (3.6-11.0)
[2024-04-14 08:58] LABS: Slide Review Platelets confirmed
[2024-04-14 09:31] LABS: Magnesium 2.1 mg/dL (1.6-2.6); Phosphorous 3.1 mg/dL (2.4-5.1)
--- NOTE | 2024-04-14 11:05 | PC.NURSE ---
During skin assessment, a stage 2 pressure wound was found on her left buttock, per pt's mother pt has had wound for a long time. Pt is able to turn independently but Argelia LUJAN aware that we will remind pt q2 hrs to turn. Picture taken and allyven applied. Dr. Desai made aware.
[2024-04-14 11:07] LABS: Lactate (Lactic Acid) 0.8 mMol/L (0.4-2.0)
--- NOTE | 2024-04-14 11:12 | ESPR_ITS ---
<Statement entered by Geoff Hernandes MD - 04/19/24 04:07> I reviewed above note and agree with findings and plans. I have also personally examined the patient with medicine team and went over assessment and plan with medical team including international accounting manager and resident physician. Documentation for date of: 04/14/24 Subjective Subjective Interval history: Patient was seen and examined at the bedside. Patient appears in abdominal distress and reported to have burning sensation during urination. Patient reported that she was feeling generalized weakness and was not able to eat or drink anything which brought her to the hospital. Patient was also complaining of passing multiple bowel movements on lactulose. Morning vitals were stable. No acute overnight events were reported. Patient is afebrile. Labs revealed leukopenia, hemoglobin at 8.5 and platelet 31. Chemistry panel showed non-anion gap mild metabolic acidosis with bicarb 19.0. Kidney functions were stable. Lactic acid was unremarkable. T. bili 4.8. UA was consistent with urine tract infection. Abdominal ultrasound did not show ascites. There is a concern for SBP therefore ultrasound-guided paracentesis was ordered. Started albumin 25 mg once daily midodrine 10 3 times daily for hypotension. Continuing ceftriaxone to cover for UTI and possible SBP. Follow-up on blood cultures. Continuing lactulose and titrate for 2-3 bowel movements every day. Started [place] for pain and Zofran for nausea. Will follow-up on blood and urine culture results. All labs and orders were reviewed. Exam Vital Signs Temp Pulse Resp BP Pulse Ox O2 Del Method 98.0 F 66 16 107/53 L 95 Room Air 04/14/24 08:00 04/14/24 08:00 04/14/24 08:00 04/14/24 08:00 04/14/24 08:00 04/14/24 08:00 Narrative Exam GENERAL APPEARANCE: Patient is AOx3 mildly lethargic in mild distress due to abdominal discomfort. However saturating well on room air. HEENT: NC, AT. MMM. EOMI, clear conjunctiva, oropharynx clear. NECK: Supple without lymphadenopathy. No stiffness or restricted ROM. HEART: Regular rate and regular rhythm, normal S1/S2, no m/r/g LUNGS: CTAB, moving air well. No crackles or wheezes are heard. ABDOMEN: Soft, epigastric and right upper quadrant tenderness , mildly distended with good bowel sounds heard. BACK: No CVAT, no obvious deformity. EXTREMITIES: Without cyanosis, clubbing or edema. NEUROLOGICAL: Grossly nonfocal. Alert and oriented, moving all 4 extremities. CN not formally tested but appear grossly intact. Skin: Generalized hyperpigmentation seen on skin Psych: Mildly lethargic but conversational Objective Labs 04/14/24 08:31 04/14/24 04:34 Labs: Laboratory Results - last 24 hr 04/13/24 04/13/24 04/13/24 09:50 13:55 15:15 WBC RBC Hgb Hct MCV MCH MCHC RDW Std Deviation Plt Count Neut % (Auto) Lymph % (Auto) [place] % (Auto) Eos % (Auto) Baso % (Auto) Neut # (Auto) Lymph # (Auto) [place] # (Auto) Eos # (Auto) Baso # (Auto) Immature Gran # (Auto) Absolute Nucleated RBC Immature Gran % Nucleated RBC % Sodium Potassium Chloride Carbon Dioxide Anion Gap BUN Creatinine Estim Creat Clear Calc eGFR BUN/Creatinine Ratio Glucose Calculated Osmolality Lactic Acid Calcium Corrected Calcium Phosphorus Magnesium Total Bilirubin AST ALT Alkaline Phosphatase Total Protein Albumin Globulin Albumin/Globulin Ratio Ur Collection Type Clean Catch Catheter Urine Color Yellow Yellow Urine Clarity Turbid A Turbid A Urine pH 6.0 6.0 Ur Specific [place] 1.019 1.021 Urine Protein 1+ A Trace Urine Glucose (UA) Negative Negative Urine Ketones Negative Negative Urine Blood 3+ A 3+ A Urine Nitrite Negative Negative Urine Bilirubin Negative Negative Urine Urobilinogen (Auto) Negative Negative Ur Leukocyte Esterase Positive Positive Urine RBC 176 H 1197 H Urine WBC 107 H 27 H Ur Squamous Epith Cells 13 H 2 Urine Bacteria Rare None Hyaline Casts < 1 Ur Culture Indicated? Contaminated Urine Opiates Screen Positive A Urine Fentanyl Screen Negative Ur Barbiturates Screen Negative U Amphetamin/Meth Scrn Negative U Benzodiazepines Scrn Negative U Cocaine Metab Screen Negative U Marijuana (THC) Screen Negative Misc Test Result Platelets confirmed Blood Type O Positive Antibody Screen NEGATIVE Blood Bank Wristband ID Yes 04/13/24 04/13/24 04/13/24 16:00 18:20 21:15 WBC 3.7 RBC 2.54 L Hgb 9.0 L Hct 26.4 L MCV 104 H MCH 35.4 H MCHC 34.1 RDW Std Deviation 60.3 H Plt Count 33 L D Neut % (Auto) 68 Lymph % (Auto) 20 [place] % (Auto) 8 Eos % (Auto) 3 Baso % (Auto) 1 Neut # (Auto) 2.5 Lymph # (Auto) 0.7 L [place] # (Auto) 0.3 Eos # (Auto) 0.1 Baso # (Auto) 0.0 Immature Gran # (Auto) 0.01 H Absolute Nucleated RBC 0.00 Immature Gran % 0 Nucleated RBC % 0 Sodium 141 Potassium 5.4 H Chloride 115 H Carbon Dioxide 19.0 L Anion Gap 7 BUN 18 Creatinine 1.0 Estim Creat Clear Calc 53.3 L eGFR > 60 BUN/Creatinine Ratio 18 Glucose 128 H Calculated Osmolality 285 Lactic Acid 2.9 H 2.6 H 2.4 H Calcium 8.8 Corrected Calcium 9.7 Phosphorus 3.7 Magnesium Total Bilirubin AST ALT Alkaline Phosphatase Total Protein Albumin 2.9 L Globulin Albumin/Globulin Ratio Ur Collection Type Urine Color Urine Clarity Urine pH Ur Specific [place] Urine Protein Urine Glucose (UA) Urine Ketones Urine Blood Urine Nitrite Urine Bilirubin Urine Urobilinogen (Auto) Ur Leukocyte Esterase Urine RBC Urine WBC Ur Squamous Epith Cells Urine Bacteria Hyaline Casts Ur Culture Indicated? Urine Opiates Screen Urine Fentanyl Screen Ur Barbiturates Screen U Amphetamin/Meth Scrn U Benzodiazepines Scrn U Cocaine Metab Screen U Marijuana (THC) Screen Misc Test Result See comment Blood Type Antibody Screen Blood Bank Wristband ID 04/14/24 04/14/24 04:34 08:31 WBC 2.9 L 2.8 L RBC 2.11 L 2.37 L Hgb 7.6 L 8.5 L Hct 22.8 L 25.1 L MCV 108 H 106 H MCH 36.0 H 35.9 H MCHC 33.3 33.9 RDW Std Deviation 63.5 H 62.0 H Plt Count 27 L* 31 L Neut % (Auto) 54 58 Lymph % (Auto) 30 29 [place] % (Auto) 11 9 Eos % (Auto) 4 4 Baso % (Auto) 1 0 Neut # (Auto) 1.6 L 1.6 L Lymph # (Auto) 0.9 L 0.8 L [place] # (Auto) 0.3 0.3 Eos # (Auto) 0.1 0.1 Baso # (Auto) 0.0 0.0 Immature Gran # (Auto) 0.01 H 0.01 H Absolute Nucleated RBC 0.00 0.00 Immature Gran % 0 0 Nucleated RBC % 0 0 Sodium 142 Potassium 4.7 D Chloride 115 H Carbon Dioxide 19.0 L Anion Gap 8 BUN 17 Creatinine 1.0 Estim Creat Clear Calc 58.5 L eGFR > 60 BUN/Creatinine Ratio 17 Glucose 141 H Calculated Osmolality 286 Lactic Acid Calcium 9.4 Corrected Calcium 9.8 Phosphorus 3.1 Magnesium 2.1 Total Bilirubin 4.8 H AST 30 ALT 13 Alkaline Phosphatase 82 D Total Protein 6.0 Albumin 3.5 D Globulin 2.5 Albumin/Globulin Ratio 1.4 Ur Collection Type Urine Color Urine Clarity Urine pH Ur Specific [place] Urine Protein Urine Glucose (UA) Urine Ketones Urine Blood Urine Nitrite Urine Bilirubin Urine Urobilinogen (Auto) Ur Leukocyte Esterase Urine RBC Urine WBC Ur Squamous Epith Cells Urine Bacteria Hyaline Casts Ur Culture Indicated? Urine Opiates Screen Urine Fentanyl Screen Ur Barbiturates Screen U Amphetamin/Meth Scrn U Benzodiazepines Scrn U Cocaine Metab Screen U Marijuana (THC) Screen Misc Test Result Platelets confirmed Platelets confirmed Blood Type Antibody Screen Blood Bank Wristband ID ABG Interpretation ABG results: 04/13/24 09:50 VBG pH 7.34 VBG pCO2 47 VBG pO2 30 VBG Base Excess 0 Quality Measures Quality Measures VTE prophylaxis (SCDs) Assessment & Plan Assessment Current Active Medications: Generic Name Dose Route Start Last Admin Trade Name Freq PRN Reason Stop Dose Admin Acetaminophen 650 mg 04/14/24 11:04 Acetaminophen 325 Mg Tablet PO 05/14/24 11:03 Q6HR PRN Fever >100.4 or pain Hydrocodone Bitart/Acetaminophen 1 tab 04/14/24 11:04 Hydrocodone/Apap 5/325 Tablet PO 04/19/24 11:03 Q6HR PRN Pain4-10 Ferrous Sulfate 325 mg 04/14/24 09:00 04/14/24 08:06 Ferrous Sulf 325 Mg Tablet PO 05/14/24 08:59 325 mg DAILY CELINA Administration Ceftriaxone Sodium 1,000 mg/ 50 mls @ 100 mls/hr 04/14/24 14:00 Sodium Chloride IV 04/21/24 13:59 QDAY@1400 CELINA Albumin Human 25 gm in 100 mls @ 100 mls/hr 04/14/24 10:26 Albuminar-25 Ivpb IV 04/17/24 10:25 QDAY CELINA Lactulose 30 gm 04/13/24 22:00 04/14/24 05:26 Lactulose Syrup 20 Gm/30 Ml Udc PO 05/13/24 21:59 30 gm TID CELINA Administration Protocol Midodrine 10 mg 04/13/24 18:00 04/14/24 05:27 Midodrine 5 Mg Tablet PO 05/13/24 17:59 10 mg TID CELINA Administration Ondansetron HCl 4 mg 04/14/24 11:04 Ondansetron Inj 2 Mg/Ml Inj 2 Ml IV 05/14/24 11:03 Q6HR PRN NAUSEA OR VOMITING Protocol Pantoprazole Sodium 40 mg 04/14/24 09:00 04/14/24 08:05 Pantoprazole 40 Mg Tablet PO 05/14/24 08:59 40 mg QDAY CELINA Administration Plan This patient is a 54-year-old female with past medical history of recurrent admissions related to end-stage liver disease secondary to alcoholic liver cirrhosis, hepatic encephalopathy, esophageal varices status post banding and type 2 diabetes mellitus who presented to [facility] emergency department on 04/13/2024 with a chief complaint of lethargy, burning sensation during urination and generalized weakness. Patient was found to be hypotensive. She is admitted for hypotension, UTI and possible SBP. #Hypotension #Lactic acidosis #UTI ? Likely related to decreased p.o. intake and patient being on lactulose and Lasix ? Did not receive midodrine all today ? Patient did receive 2.5 L of fluid and will resume her midodrine ? Received 100 g of albumin ? UA was turbid with RBCs 1197 and WBC 27 with positive leukocyte esterase Plan: ? Treating underlying infection with ceftriaxone with antibiotics ? Continue albumin 25 mg scheduled once daily ? Lactic acid down trended ? Follow-up with urine cultures #Decompensated liver disease due to alcohol use #History of esophageal varices status post banding #Thrombocytopenia #Hyperbiliribunemia #Transaminitis ?LFTs unremarkable. T. bili 4.8 ? Platelets 31 Plan: ? Continue lactulose and hold off Lasix given hypotension ? Continue albumin 25 mg scheduled once daily ? Ordered ultrasound-guided paracentesis for possible SBP ? Continue IV ceftriaxone for SBP prophylaxis ? Continue IV Protonix daily ? Continue midodrine 10 mg 3 times daily ? Follow-up on blood cultures ? Ultrasound abdomen did not show ascites #Macrocytic anmia #Leukopenia - No evidence of bleeding Plan: - Monitor daily CBC ?PRBC if hemoglobin drops below 7 #Type 2 diabetes ? Recent A1c was 4.7 Health maintenance: DVT prophylaxis: SCD GI prophylaxis: IV Protonix Diet: Cardiac Lines: Peripheral IV Code status: Full code Patient was seen and discussed with attending physician, Dr.Obad Dr. Lloyd MD, PGY 2
--- NOTE | 2024-04-14 11:17 | XR_ITS ---
Examination: Abdomen sonogram, Limited Date and time of exam: 04/14/2024, 12:03 PM COMPARISON: 04/09/2024 Evaluate for ascites. Technique: Real-time sifuentes scale transabdominal sonographic images of the upper abdomen obtained. Findings: No ascites seen. IMPRESSION: No ascites seen
[2024-04-14] MEDS: ONDANSETRON INJ 2 MG/ML INJ 2 ML 4 MG IV (11:46)
[2024-04-14] MEDS: cefTRIAXone 1,000 MG in SODIUM CHLORIDE 0.9% (Popper) 50 ML 100 MG IV (13:15)
[2024-04-15] VITALS (11 sets, daily range): BP systolic 98–108; BP diastolic 48–67; PULSE 50–78; RESP 14–22; TEMP 36.5–37.2; O2SAT 95–99
[2024-04-15] MEDS: HYDROcodone/APAP 5/325 TABLET 1 TAB PO ×2 (01:06→13:12)
[2024-04-15] MEDS: PANTOPRAZOLE INJ 40 MG VIAL IV (02:35)
[2024-04-15] MEDS: MIDODRINE 5 MG TABLET 10 MG PO ×3 (05:15→21:03)
[2024-04-15] MEDS: LACTULOSE SYRUP 20 GM/30 ML UDC 30 GM PO ×3 (05:16→21:03)
[2024-04-15 05:55] LABS: Basophils % (Auto) 1 % (0-2.5); Eosinophils # (Auto) 0.1 Thou/mm3 (0.0-0.5); Eosinophils % (Auto) 3 % (0-10); Hematocrit 24.4 % (36.0-46.0); Immature Granulocytes % (Auto) 1 % (0-0); Immature Granulocytes Auto 0.02 Thou/mm3 (0.00-0.00); Lymphocytes # (Auto) 1.3 Thou/mm3 (1.0-4.8); Lymphocytes % (Auto) 30 % (10-50); Mean Corpuscular HGB Conc 32.8 g/dl (31.0-37.0); Mean Corpuscular Hemoglobin 35.7 pg (25.0-35.0); Mean Corpuscular Volume 109 fL (80-100); Monocytes # (Auto) 0.3 Thou/mm3 (0.0-0.8); Monocytes % (Auto) 8 % (0-12); Neutrophils # (Auto) 2.6 Thou/mm3 (1.8-7.7); Neutrophils % (Auto) 58 % (37-80); Nucleated Red Blood Cell % 0 /100 WBC (0); RDW Standard Deviation 66.3 fL (36.4-46.3); Red Blood Count 2.24 Miln/mm3 (4.00-5.20); White Blood Count 4.4 Thou/mm3 (3.6-11.0)
[2024-04-15 06:08] LABS: Alanine Aminotransferase 12 U/L (10-49); Albumin, Serum 3.5 gm/dL (3.5-5.0); Albumin/Globulin Ratio 1.3 (1.2-2.2); Alkaline Phosphatase 77 U/L (46-116); Anion Gap 7 (7-16); Aspartate Amino Transferase 27 U/L (0-34); BUN/Creatinine Ratio 13 Ratio (12-20); Bilirubin,Total 5.4 mg/dL (0.3-1.2); Blood Urea Nitrogen 13 mg/dL (9-23); Calcium 9.5 mg/dL (8.3-10.6); Calcium (Corrected) 9.9 mg/dL (8.5-10.1); Carbon Dioxide 20.2 mMol/L (20.0-31.0); Chloride 115 mMol/L (98-107); Estimated Creatinine Clearance 59.7 mL/min (>60); Globulin 2.6 gm/dL (2.3-3.5); Glucose 140 mg/dL (74-106); Magnesium 1.7 mg/dL (1.6-2.6); Osmolality,Calculated 285 (275-295); Phosphorous 2.5 mg/dL (2.4-5.1); Potassium 4.6 mMol/L (3.4-5.1); Sodium 142 mMol/L (136-145); Total Protein 6.1 gm/dL (5.7-8.2); eGFR > 60 See Note
[2024-04-15 06:13] LABS: Platelet Count 47 Thou/mm3 (140-440)
[2024-04-15 06:37] LABS: Slide Review Platelets confirmed
[2024-04-15] MEDS: PANTOPRAZOLE 40 MG TABLET PO (08:33)
[2024-04-15] MEDS: ALBUMIN HUMAN 25% IVPB 25 GM/100 ML BTL IV (08:33)
[2024-04-15] MEDS: FERROUS SULF 325 MG TABLET PO (08:33)
[2024-04-15] MEDS: cefTRIAXone 1,000 MG in SODIUM CHLORIDE 0.9% (Popper) 50 ML 100 MG IV (13:05)
--- NOTE | 2024-04-15 17:16 | ESPR_ITS ---
Documentation for date of: 04/15/24 Subjective Subjective Interval history: No overnight events reported patient seen and examined at bedside this morning. Patient endorses to significant improvement of her symptoms from yesterday including nausea and abdominal pain. Blood pressure this morning is improved to 98/52 and heart rate of 57. Although patient was originally scheduled for paracentesis on Tuesday abdominal ultrasound shows no ascites therefore patient will not undergo paracentesis. Patient states she is on liver transplant list at [facility]. Patient denies any dizziness or shortness of breath and currently has no complaints. Exam Vital Signs Temp Pulse Resp BP Pulse Ox O2 Del Method 98.7 F 57 L 16 103/63 99 Room Air 04/15/24 16:00 04/15/24 16:00 04/15/24 16:00 04/15/24 16:00 04/15/24 16:04/15/24 16:00 Narrative Exam GENERAL: A&Ox3 . Awake, Not in acute distress NEURO: no focal neurological deficits HEENT: Atraumatic, Normocephalic. mucous membranes moist. Eyes open, symmetrical, & Sclera icterus noted HEART: Normal Heart Sounds LUNGS: Clear to auscultation with no wheezing or crackles. ABDOMEN: soft, non-distended, non-tender, bowel sounds heard, no guarding or rebound tenderness SKIN: No Rash or ecchymoses EXTREMITIES: No edema, tenderness, able to move all 4 extremities, pedal pulses palpated Objective Labs 04/15/24 05:10 04/15/24 05:10 Labs: Laboratory Results - last 24 hr 04/15/24 05:10 WBC 4.4 D RBC 2.24 L Hgb 8.0 L Hct 24.4 L MCV 109 H MCH 35.7 H MCHC 32.8 RDW Std Deviation 66.3 H Plt Count 47 L D Neut % (Auto) 58 Lymph % (Auto) 30 [place] % (Auto) 8 Eos % (Auto) 3 Baso % (Auto) 1 Neut # (Auto) 2.6 Lymph # (Auto) 1.3 [place] # (Auto) 0.3 Eos # (Auto) 0.1 Baso # (Auto) 0.0 Immature Gran # (Auto) 0.02 H Absolute Nucleated RBC 0.00 Immature Gran % 1 H Nucleated RBC % 0 Sodium 142 Potassium 4.6 Chloride 115 H Carbon Dioxide 20.2 Anion Gap 7 BUN 13 Creatinine 1.0 Estim Creat Clear Calc 59.7 L eGFR > 60 BUN/Creatinine Ratio 13 Glucose 140 H Calculated Osmolality 285 Calcium 9.5 Corrected Calcium 9.9 Phosphorus 2.5 Magnesium 1.7 Total Bilirubin 5.4 H D AST 27 ALT 12 Alkaline Phosphatase 77 Total Protein 6.1 Albumin 3.5 Globulin 2.6 Albumin/Globulin Ratio 1.3 Misc Test Result Platelets confirmed ABG Interpretation ABG results: 04/13/24 09:50 VBG pH 7.34 VBG pCO2 47 VBG pO2 30 VBG Base Excess 0 Quality Measures Quality Measures VTE prophylaxis (SCDs) Assessment & Plan Assessment Current Active Medications: Generic Name Dose Route Start Last Admin Trade Name Freq PRN Reason Stop Dose Admin Acetaminophen 650 mg 04/14/24 11:04 Acetaminophen 325 Mg Tablet PO 05/14/24 11:03 Q6HR PRN Fever >100.4 or pain Hydrocodone Bitart/Acetaminophen 1 tab 04/14/24 11:04 04/15/24 13:12 Hydrocodone/Apap 5/325 Tablet PO 04/19/24 11:03 1 tab Q6HR PRN Administration Pain4-10 Ferrous Sulfate 325 mg 04/14/24 09:00 04/15/24 08:33 Ferrous Sulf 325 Mg Tablet PO 05/14/24 08:59 325 mg DAILY CELINA Administration Ceftriaxone Sodium 1,000 mg/ 50 mls @ 100 mls/hr 04/14/24 14:00 04/15/24 13:05 Sodium Chloride IV 04/21/24 13:59 100 mls/hr QDAY@1400 CELINA Administration Albumin Human 25 gm in 100 mls @ 100 mls/hr 04/14/24 10:26 04/15/24 08:33 Albuminar-25 Ivpb IV 04/17/24 10:25 100 mls/hr QDAY CELINA Administration Lactulose 30 gm 04/13/24 22:00 04/15/24 13:05 Lactulose Syrup 20 Gm/30 Ml Udc PO 05/13/24 21:59 30 gm TID CELINA Administration Protocol Midodrine 10 mg 04/13/24 18:00 04/15/24 13:04 Midodrine 5 Mg Tablet PO 05/13/24 17:59 10 mg TID CELINA Administration Ondansetron HCl 4 mg 04/14/24 11:04 04/14/24 11:46 Ondansetron Inj 2 Mg/Ml Inj 2 Ml IV 05/14/24 11:03 4 mg Q6HR PRN Administration NAUSEA OR VOMITING Protocol Pantoprazole Sodium 40 mg 04/14/24 09:00 04/15/24 08:33 Pantoprazole 40 Mg Tablet PO 05/14/24 08:59 40 mg QDAY CELINA Administration Plan This patient is a 54-year-old female with past medical history of recurrent admissions related to end-stage liver disease secondary to alcoholic liver cirrhosis, hepatic encephalopathy, esophageal varices status post banding and type 2 diabetes mellitus who presented to [facility] emergency department on 04/13/2024 with a chief complaint of lethargy, burning sensation during urination and generalized weakness. Patient was found to be hypotensive. She is admitted for hypotension, UTI and possible SBP. #Hypotension- improved #Lactic acidosis- improved #Decompensated liver disease due to alcohol use #History of esophageal varices status post banding #Thrombocytopenia #Macrocytic anemia #Hyperbiliribunemia -Hypotension likely related to decreased p.o. intake and patient being on lactulose and Lasix -Pt was not compliant with midodrine at home -Pt has history of end stage liver disease secondary to alcohol use disorder. Pt has completely stopped consuming alcohol and currently is on Liver transplant list at [facility]. -Meld?Na score 19 points, 19.6% estimated 90-day mortality -Child [place] score 9 points, child class B, abdominal surgery palak-operative mortality 30% -LFTs unremarkable, T. bili 4.8, Platelets 47, Hgb 8.0, Hct 24.4, MCV 109 -Patient did receive 2.5 L of fluid -Lactic acid downtrended Plan: -Continue Midodrine 10mg TID -Continue albumin 25 mg scheduled once daily -Continue lactulose and hold off Lasix given hypotension -Continue IV ceftriaxone for SBP prophylaxis -Continue IV Protonix daily #UTI -Urine analysis Leukocyte esterase positive, hematuria, pyuria -Urine RBC 1197 and urine blood 3+ ?urine cultures pending -Pt is on antibiotic theraoy with ceftriaxone #Type 2 diabetes -Recent A1c was 4.7 DVT prophylaxis: SCD GI prophylaxis: IV Protonix Diet: Cardiac Lines: Peripheral IV Code status: Full code Assessment and plan discussed with my senior resident Dr. Blair & attending physician Dr. Greta Diaz (PGY-1)- Internal medicine resident
[2024-04-15] MEDS: PANTOPRAZOLE INJ 40 MG VIAL IVP (21:21)
[2024-04-16] VITALS: BP 106/69; PULSE 56; PULSE 58; RESP 14; TEMP 36.6; O2SAT 97
[2024-04-16 03:44] VITALS: BP 103/55; PULSE 55; RESP 13; TEMP 37.2; O2SAT 98
[2024-04-16 04:00] VITALS: PULSE 56
[2024-04-16 04:44] LABS: Basophils % (Auto) 1 % (0-2.5); Eosinophils # (Auto) 0.2 Thou/mm3 (0.0-0.5); Eosinophils % (Auto) 5 % (0-10); Hematocrit 24.8 % (36.0-46.0); Immature Granulocytes % (Auto) 0 % (0-0); Lymphocytes # (Auto) 1.1 Thou/mm3 (1.0-4.8); Lymphocytes % (Auto) 35 % (10-50); Mean Corpuscular HGB Conc 32.7 g/dl (31.0-37.0); Mean Corpuscular Hemoglobin 35.8 pg (25.0-35.0); Mean Corpuscular Volume 110 fL (80-100); Monocytes # (Auto) 0.3 Thou/mm3 (0.0-0.8); Monocytes % (Auto) 10 % (0-12); Neutrophils # (Auto) 1.6 Thou/mm3 (1.8-7.7); Neutrophils % (Auto) 50 % (37-80); Nucleated Red Blood Cell % 0 /100 WBC (0); RDW Standard Deviation 67.4 fL (36.4-46.3); Red Blood Count 2.26 Miln/mm3 (4.00-5.20); White Blood Count 3.3 Thou/mm3 (3.6-11.0)
[2024-04-16 04:45] LABS: Hemoglobin 8.1 g/dL (12.0-16.0); Platelet Count 35 Thou/mm3 (140-440)
[2024-04-16 05:06] LABS: Alanine Aminotransferase 13 U/L (10-49); Albumin, Serum 3.5 gm/dL (3.5-5.0); Albumin/Globulin Ratio 1.3 (1.2-2.2); Alkaline Phosphatase 75 U/L (46-116); Anion Gap 8 (7-16); Aspartate Amino Transferase 30 U/L (0-34); BUN/Creatinine Ratio 12 Ratio (12-20); Bilirubin,Total 5.1 mg/dL (0.3-1.2); Blood Urea Nitrogen 11 mg/dL (9-23); Calcium 10.2 mg/dL (8.3-10.6); Calcium (Corrected) 10.6 mg/dL (8.5-10.1); Carbon Dioxide 21.7 mMol/L (20.0-31.0); Chloride 115 mMol/L (98-107); Creatinine (Component) 0.9 mg/dL (0.6-1.3); Estimated Creatinine Clearance 66.4 mL/min (>60); Globulin 2.6 gm/dL (2.3-3.5); Glucose 106 mg/dL (74-106); LDH (Lactate Dehydrogenase) 153 U/L (120-246); Magnesium 1.6 mg/dL (1.6-2.6); Osmolality,Calculated 288 (275-295); Phosphorous 3.4 mg/dL (2.4-5.1); Potassium 4.8 mMol/L (3.4-5.1); Sodium 145 mMol/L (136-145); Total Protein 6.1 gm/dL (5.7-8.2); eGFR > 60 See Note
[2024-04-16 05:08] LABS: Slide Review Platelets confirmed
[2024-04-16 05:14] VITALS: BP 103/55; PULSE 59
[2024-04-16] MEDS: LACTULOSE SYRUP 20 GM/30 ML UDC 30 GM PO (05:14)
[2024-04-16] MEDS: MIDODRINE 5 MG TABLET 10 MG PO (05:14)
[2024-04-16 08:00] VITALS: BP 120/65; PULSE 57; RESP 16; TEMP 36.4; O2SAT 95
[2024-04-16] MEDS: PANTOPRAZOLE 40 MG TABLET PO (08:00)
[2024-04-16] MEDS: FERROUS SULF 325 MG TABLET PO (08:01)
[2024-04-16] MEDS: ALBUMIN HUMAN 25% IVPB 25 GM/100 ML BTL IV (08:02)
[2024-04-16] MEDS: Magnesium Sulfate 2 GM Ivpb 2 GM/50 ML BAG IV (09:29)
--- NOTE | 2024-04-16 11:11 | ESDS_ITS ---
Planned Discharge Date 04/16/24 DS: Providers Provider Date of admission: 04/15/24 08:15 Primary care physician: LETI Catherine Admitting Provider: Geoff Hernandes MD Attending Provider on Admission: Geoff Hernandes MD Consults: 04/14/24 11:18 Referral Wound Care Routine Comment: Attending Provider on DC: Lennox Diaz MD Discharging Provider: Lennox Diaz MD DS: Diagnosis Problem List Completed Was Problem List Reviewed/Reconciled?: Yes Hospital Course Hospital Course Hospital course: Ms. Knight is a 53-year old female with past medical history significant for end stage liver disease secondary alcohol use disorder, esophageal varices status post banding presented to the [facility] ED on 04/13/2024 complaining of generalized weakness. In the ED pt was found to have hypotension with lactic acidosis. Pt was admitted for further management, give IV fluids which improved the blood pressure and IV antibiotics for UTI. Pt is in de compensated liver disease therefore was continued home management of lactulose, albumin, midodrine, ferrous sulfate and close monitoring. Due to hypotension, Pts home lasix was held and resumed at lower dose upon discharge. Pt's symptoms improved and is clinically as well as hemodynamically stable to be discharged home to self care. Images CXR: Mild enlargement cardiac contour, Moderate vascular congestion EKG: Sinus bradycardia CT head: Negative for acute hemorrhage, mass effect or midline shift Abdomen Ultrasound: No ascites seen Discharge Recommendations Take nitrofurantoin/Macrobid 100 mg twice daily for 5 days to complete antibiotic course Your dose of Lasix has been reduced to 20 mg once daily Hold Lasix if blood pressure drops below 100/60 mmHg Continue taking all your home medications as prescribed Follow-up with Primary Care Provider as outpatient within a week Follow-up with your production line technician at [facility] on scheduled appointment In case of emergency, call 911 and come back to the ED Hospitalization Diagnosis #Hypotension #Lactic acidosis #UTI #Decompensated liver disease due to alcohol use #History of esophageal varices status post banding #Thrombocytopenia #Hyperbiliribunemia #Transaminitis #Macrocytic anmia #Leukopenia Assessment and plan discussed with my attending physician Dr. Greta Diaz (PGY-1)- Internal medicine resident Time Spent with Patient Time attestation: Total time spent providing and/or coordinating discharge services: Time spent: Greater than 30 minutes Exam Vital Signs Temp Pulse Resp BP Pulse Ox O2 Del Method 97.6 F 57 L 16 120/65 95 Room Air 04/16/24 08:00 04/16/24 08:00 04/16/24 08:00 04/16/24 08:00 04/16/24 08:00 04/16/24 08:00 Narrative Exam GENERAL: A&Ox3 . Awake, Not in acute distress NEURO: no focal neurological deficits HEENT: Atraumatic, Normocephalic. mucous membranes moist. Eyes open, symmetrical, & Sclera icterus noted HEART: Normal Heart Sounds LUNGS: Clear to auscultation with no wheezing or crackles. ABDOMEN: soft, non-distended, non-tender, bowel sounds heard, no guarding or rebound tenderness SKIN: No Rash or ecchymoses EXTREMITIES: No edema, tenderness, able to move all 4 extremities, pedal pulses palpated Discharge Plan Plan Patient Disposition: HOME (Self Care) Disposition Comment: Hospitalist About Care Plan Goals: Take nitrofurantoin/Macrobid 100 mg twice daily for 5 days to complete antibiotic course Your dose of Lasix has been reduced to 20 mg once daily Hold Lasix if blood pressure drops below 100/60 mmHg Continue taking all your home medications as prescribed Follow-up with Primary Care Provider as outpatient within a week Follow-up with your production line technician at [facility] on scheduled appointment In case of emergency, call 911 and come back to the ED Prescriptions/Referrals Prescriptions/Med Rec: New furosemide [Lasix] 20 mg tablet 20 mg PO QDAY Qty: 90 0RF Rx Instructions: Hold if SBP drops below 100 and DBP below 60 mmHg nitrofurantoin monohyd/m-cryst [Macrobid] 100 mg capsule 100 mg PO Q12H 5 Days Qty: 10 0RF Rx Instructions: must administer with a meal/food Continued pantoprazole 40 mg tablet,delayed release (DR/EC) 40 mg PO QDAY Qty: 30 0RF lactulose 20 gram/30 mL Solution 30 g PO TID 30 Days Qty: 4050 1RF methocarbamol 750 mg Tablet 750 mg PO BID ergocalciferol (vitamin D2) [Vitamin D2] 1,250 mcg (50,000 unit) Capsule 1,250 mcg PO QWEEK oxycodone 5 mg tablet 5 mg PO Q12H PRN (Reason: Pain) Patient Comments: TAKE 1 TABLET BY MOUTH EVERY 12 HOURS NEEDED FOR PAIN cholestyramine (with sugar) 4 gram powder in packet 4 g PO BID Qty: 60 0RF Rx Instructions: administer w/meal; avoid other meds within 1hr before or 4-6hr after dose Xifaxan 550 mg tablet 550 mg PO BID Patient Comments: TAKE 1 TABLET BY MOUTH TWICE A DAY FOR 1 MONTH midodrine 10 mg tablet 10 mg PO TID Patient Comments: PLEASE SEE ATTACHED FOR DETAILED DIRECTIONS ferrous sulfate 325 mg (65 mg iron) tablet 325 mg PO DAILY Patient Comments: TAKE 1 TABLET BY MOUTH DAILY WITH ORANGE JUICE. -DO NOT GIVE CAFFEINE multivitamin with folic acid [Daily-Dena (with folic acid)] 400 mcg tablet 1 tab PO QAM Qty: 30 0RF Discontinued furosemide 40 mg tablet 40 mg PO QDAY Patient Comments: TAKE 1 TABLET BY MOUTH DAILY Referrals: Stacy Graff, MECHANICAL TECHNOLOGIST [Primary Care Provider] - Patient/Caregiver Discharge Instructions Print Language: Wolof Stand Alone Forms: [facility]erv[facility] Award Info., Patient Portal Info Letter Discharge Order Discharge Orders: Discharge (Routine); Ordered 04/16/24 Ordered By: Nasima Blair Quality Discharge Quality Measures none
[2024-04-16 12:00] VITALS: BP 108/59; PULSE 70; PULSE 74; RESP 16; TEMP 36.7; O2SAT 97
== END 2024-04-16 13:18 | disposition home or self-care (01) | DRG 207 ==
LOC: SERX 10:16 → SERHOLD 17:57 → S2NX 04-16 06:20
PROVIDERS: Student in an Organized Health Care Education/Training Program; Admitting Provider Internal Medicine; Emergency Provider Emergency Medicine; PCP Nurse Practitioner Family; Visit Provider Internal Medicine
DX: I95.9 Hypotension, unspecified (principal); Z76.82 Awaiting organ transplant status; K72.10 Chronic hepatic failure without coma; K70.31 Alcoholic cirrhosis of liver with ascites; E87.20 Acidosis, unspecified; D69.6 Thrombocytopenia, unspecified; F10.10 Alcohol abuse, uncomplicated; E63.9 Nutritional deficiency, unspecified; D53.9 Nutritional anemia, unspecified; D72.819 Decreased white blood cell count, unspecified; K76.82 Hepatic encephalopathy; D68.9 Coagulation defect, unspecified; N39.0 Urinary tract infection, site not specified; I85.10 Secondary esophageal varices without bleeding; E11.9 Type 2 diabetes mellitus without complications; R31.9 Hematuria, unspecified; Z79.899 Other long term (current) drug therapy; T44.4X6A Underdosing of predominantly alpha-adrenoreceptor agonists, initial encounter; Z91.148 Patient's other noncompliance with medication regimen for other reason
CPT/HCPCS: 36415; 70450; 71045; 76705; 80048; 80053; 80069; 80307; 80320; 81001; 82042; 82140; 82150; 82803; 82945; 83605; 83615; 83735; 83880; 84100; 84145; 84157; 84484; 85025; 85610; 86850; 86900; 86901; 87040; 87077; 87081; 87086; 87186; 87400; 87811; 89051; 93005; 96361; 96365; 96366; 96367; 99291; G0378; J0696; J2405; J2470; J3475; J7030; J7040; J7050; P9047; A9270; G0480

== ENCOUNTER 2024-05-10 02:24 | Inpatient (IN) | payer MEDICAID, SELFPAY ==
[2024-05-10] VITALS (9 sets, daily range): BP systolic 93–114; BP diastolic 46–71; PULSE 49–56; RESP 12–18; TEMP 36.5–36.8; O2SAT 97–100; BMI 30.2
--- NOTE | 2024-05-10 02:34 | EKG_ITS ---
[facility] Test Date: 2024-05-10 Pat Name: SHANNON ORTIZ Department: Room: - Gender: Female Plug Sorter: : 1970 Requested By: Darryl Griggs Order Number: [id number] Reading MD: Darryl Griggs Measurements Intervals [place] Rate: 47 P: 176 WI: 121 QRS: 172 QRSD: 87 T: 182 QT: 506 QTc: 448 Interpretive Statements SINUS BRADYCARDIA ARM LEADS REVERSED [INVERTED P AND QRS IN I] Compared to ECG 04/13/2024 09:28:23 No significant changes /store/S0/[id number]
--- NOTE | 2024-05-10 02:34 | XR_ITS ---
Examination: CT brain head without contrast. 2-D sagittal coronal reconstructions Date and time of exam:May 10, 2024 0339 hours INDICATIONS: Hypotension altered mental status today CTDI: vol (mGy):46 DLP: (mGycm):911 Technique: Multiple CT axial sections of the brain have been obtained, 5 mm slice thickness. Contrast has not been administered. 2-D sagittal, coronal reconstructions have been obtained Low dose protocols were performed. One or more of the following dose reduction techniques were used; automated exposure control, adjustment of the mA and/or KV according to patient size, use of iterative reconstruction technique. Findings: No significant ventricular enlargement. Intra-axial or extra-axial hemorrhage density is not seen. No mass effect or midline shift Basal cisterns are not remarkable. Fourth ventricle is midline. Cranial vault intact. Impression: Negative for acute hemorrhage, mass effect or midline shift Recommend MRI brain without contrast follow-up's symptoms persist
--- NOTE | 2024-05-10 02:34 | XR_ITS ---
Examination: AP chest single view Technique one AP portable upright chest single view Exam date and time: May 10, 2024 0253 hours Comparison May 11, 2024 INDICATIONS: Altered mental status today. FINDINGS: Normal heart size. No aspiration pneumonia. Mild osteopenia. IMPRESSION: No aspiration pneumonia
--- NOTE | 2024-05-10 02:35 | PD.EDRME ---
Rapid Medical Screening Exam RME Arrival date/time: 05/10/24 02:24 53F with history of cirrhosis presents to ED with mom for 2 days of low BP and weakness/confusion. Chief Complaint: General Adult/Misc Complain Vital signs: Vital Signs Temperature 98.1 F 05/10/24 02:32 Pulse Rate 56 L 05/10/24 02:32 Respiratory Rate 18 05/10/24 02:32 Blood Pressure 100/66 05/10/24 02:32 Pulse Oximetry (%) 98 05/10/24 02:32 Oxygen Delivery Method Room Air 05/10/24 02:32
[2024-05-10 03:34] LABS: Basophils % (Auto) 1 % (0-2.5); Eosinophils # (Auto) 0.2 Thou/mm3 (0.0-0.5); Eosinophils % (Auto) 4 % (0-10); Hematocrit 29.7 % (36.0-46.0); Hemoglobin 10.3 g/dL (12.0-16.0); Immature Granulocytes % (Auto) 0 % (0-0); Immature Granulocytes Auto 0.02 Thou/mm3 (0.00-0.00); Lymphocytes # (Auto) 1.5 Thou/mm3 (1.0-4.8); Lymphocytes % (Auto) 28 % (10-50); Mean Corpuscular HGB Conc 34.7 g/dl (31.0-37.0); Mean Corpuscular Hemoglobin 35.8 pg (25.0-35.0); Mean Corpuscular Volume 103 fL (80-100); Monocytes # (Auto) 0.4 Thou/mm3 (0.0-0.8); Monocytes % (Auto) 8 % (0-12); Neutrophils # (Auto) 3.2 Thou/mm3 (1.8-7.7); Neutrophils % (Auto) 60 % (37-80); Nucleated Red Blood Cell % 0 /100 WBC (0); RDW Standard Deviation 60.8 fL (36.4-46.3); Red Blood Count 2.88 Miln/mm3 (4.00-5.20); White Blood Count 5.3 Thou/mm3 (3.6-11.0)
[2024-05-10 04:08] LABS: Platelet Count 41 Thou/mm3 (140-440)
[2024-05-10 04:09] LABS: Slide Review Platelets confirmed
[2024-05-10 04:10] LABS: Ammonia 50 uMol/L (11-32); B-Type Natriuretic Peptide 187 pg/mL (0-100)
[2024-05-10 04:11] LABS: Alanine Aminotransferase 15 U/L (10-49); Albumin, Serum 3.1 gm/dL (3.5-5.0); Albumin/Globulin Ratio 0.8 (1.2-2.2); Alkaline Phosphatase 120 U/L (46-116); Anion Gap 10 (7-16); Aspartate Amino Transferase 34 U/L (0-34); BUN/Creatinine Ratio 14 Ratio (12-20); Bilirubin,Total 5.8 mg/dL (0.3-1.2); Blood Urea Nitrogen 18 mg/dL (9-23); Calcium 9.4 mg/dL (8.3-10.6); Calcium (Corrected) 10.1 mg/dL (8.5-10.1); Carbon Dioxide 24.3 mMol/L (20.0-31.0); Chloride 103 mMol/L (98-107); Creatinine (Component) 1.3 mg/dL (0.6-1.3); Estimated Creatinine Clearance 42.5 mL/min (>60); Globulin 3.9 gm/dL (2.3-3.5); Glucose 107 mg/dL (74-106); Magnesium 1.6 mg/dL (1.6-2.6); Osmolality,Calculated 275 (275-295); Sodium 137 mMol/L (136-145); Troponin I < 0.020 ng/mL (0.0-0.045); eGFR 49 See Note
--- NOTE | 2024-05-10 04:22 | PRELIM_ITS ---
CT scan of the head without intravenous contrast (axial sections with sagittal and coronal reformats). May 10, 2024 0339 hours Clinical History: AMS Comparison: None currently available for review Findings: There is no intracranial hemorrhage, extra-axial collection, mass, mass-effect or midline shift. There is good sifuentes-white differentiation. There is no CT evidence of acute large vascular territorial infarct. Ventricles are not enlarged or effaced. Visualized paranasal sinuses and tympanomastoid cavities are clear. The bony calvarium is intact. Impression: No intracranial hemorrhage, mass-effect or midline shift. No CT evidence of acute large vascular territorial infarct. Report Electronically Signed By: Raad Mann 05/10/2024 4:21:35 AM [EST]
[2024-05-10] MEDS: oxyCODONE HCL 5 MG IR TAB PO (07:55)
--- NOTE | 2024-05-10 08:29 | PD.EDADULT ---
ED General RME/HPI General Chief complaint: [facility] Complain Stated complaint: LOW BLOOD PRESSURE Time Seen by Provider: 05/10/24 07:48 Arrival date/time: 05/10/24 02:24 RME / HPI RME / HPI narrative: Patient is a 53 years old female with past medical history significant for end stage liver disease secondary alcohol use disorder, esophageal varices status post banding, multiple admissions for hepatic encephalopathy due to medications non-compliance presented to the ED due to worsening weakness and confusion. Symptoms started yesterday evening and got worse significantly, she became poorly responsive and was only moaning. Her mother is accompanying her reports her symptoms are similar to that when she has hepatic encephalopathy. Patient complains of all body ache, reports burning sensation with urination. She denies fever, chills, nausea, vomiting, melena. Mother reports she takes lactulose as prescribed and does not skip doses, however since she was discharged from [facility] on 04/16/24 she had 1 bowel movement a day or every other day. Related Data Home Medications ?Medication ?Instructions ?Recorded ?Confirmed rifaximin 550 mg tablet (Xifaxan) 550 mg PO BID 01/12/24 05/11/24 ferrous sulfate 325 mg (65 mg 325 mg PO DAILY 01/22/24 05/11/24 iron) tablet ergocalciferol (vitamin D2) 1,250 1,250 mcg PO QWEEK 02/06/24 05/11/24 mcg (50,000 unit) capsule (Vitamin D2) methocarbamol 750 mg tablet 750 mg PO BID 02/06/24 05/11/24 oxycodone 5 mg tablet 5 mg PO Q12H PRN Pain 03/15/24 05/11/24 metformin 500 mg tablet 500 mg PO BID 05/11/24 05/11/24 midodrine 5 mg tablet 5 mg PO TID 05/11/24 05/11/24 multivitamin 1 tab PO QDAY 05/11/24 05/11/24 mirtazapine 15 mg tablet 15 mg PO HS 05/12/24 05/12/24 propranolol 40 mg tablet 40 mg PO QDAY 05/12/24 05/12/24 Previous Rx's ?Medication ?Instructions ?Recorded pantoprazole 40 mg tablet,delayed 40 mg PO QDAY #30 tabs 08/31/24 release lactulose 20 gram/30 mL oral 30 g (45 mL) PO TID 30 days #4,050 01/31/24 solution mL cholestyramine (with sugar) 4 gram 4 g PO BID #60 ea 03/17/24 powder for susp in a packet multivitamin with folic acid 400 1 tab PO QAM #30 tabs 04/10/24 mcg tablet (Daily-Dena (with folic acid)) furosemide 20 mg tablet (Lasix) 20 mg PO QDAY #90 tabs 04/16/24 Allergies Allergy/AdvReac Type Severity Reaction Status Date / Time latex Allergy Severe Hives Verified 04/13/24 09:15 Review of Systems Review of Systems Systems Reviewed: All systems reviewed, normal except as documented ED Exam Narrative Physical exam: Gen: Well-developed and well-nourished obese female. HEENT: NCAT, PERRLA, MMM, icteric conjunctivae. CVS: normal S1 and S2. RRR. No M/R/G. Resp: CTA B/L. No rhonchi, rales, crackles or wheezing. Abd: soft, obese, tender throughout, non-distended. BS+ in all 4 quadrants. MSK: Good ROM in BUE & BLE. No rash. 1+ edema BLE. Neuro: limited exam due to lethargy and significant somnolence. Able to move all 4 extremities. Course Quality Measures none Orders Category Date Time Status Admit to Inpatient Status Routine Admission 05/10/24 12:12 Active Patient Condition Routine Admission 05/10/24 12:12 Ordered COVID-19 Screening Questionnaire NOW Care 05/10/24 10:08 Completed COVID-19 Screening Questionnaire NOW Care 05/10/24 10:11 Completed Decision to Admit X1 Care 05/10/24 10:08 Completed Decision to Admit X1 Care 05/10/24 10:11 Completed EKG (ED ONLY) *Do not use* NOW Care 05/10/24 02:34 Completed Miscellaneous Nursing Order NOW Care 05/10/24 12:12 Completed Notify provider NEEDED Care 05/10/24 12:12 Completed Sequential Compression Device QSHIFT Care 05/10/24 12:[address] head/brain wo con Stat Exams 05/10/24 02:34 Completed EKG (ED Only) Stat Exams 05/10/24 02:34 Draft XR chest 1V portable Stat Exams 05/10/24 02:34 Completed Ammonia Stat Lab 05/10/24 03:22 Completed B-Type Natriuretic Peptide Stat Lab 05/10/24 03:22 Completed CBC AM DRAW Lab 05/11/24 05:52 Completed CBC AM DRAW Lab 05/12/24 04:55 Completed CBC Stat Lab 05/10/24 03:22 Completed Comprehensive Metabolic Panel AM DRAW Lab 05/11/24 05:52 Completed Comprehensive Metabolic Panel AM DRAW Lab 05/12/24 04:55 Completed Comprehensive Metabolic Panel Stat Lab 05/10/24 03:22 Completed Lactic Acid [Lactate (Lactic Acid)] Stat Lab 05/10/24 09:55 Completed Lactic Acid, 3 HR Stat Lab 05/10/24 13:20 Completed Magnesium AM DRAW Lab 05/11/24 05:52 Completed Magnesium AM DRAW Lab 05/12/24 04:55 Completed Magnesium Stat Lab 05/10/24 03:22 Completed Phosphorous AM DRAW Lab 05/11/24 05:52 Completed Phosphorous AM DRAW Lab 05/12/24 04:55 Completed Procalcitonin Stat Lab 05/10/24 09:55 Completed Troponin I Stat Lab 05/10/24 03:22 Completed Urinalysis Stat Lab 05/10/24 08:20 Completed Lactulose Syrup [Enulose Syrup] Med 05/10/24 14:00 Discontinued 30 gm PO TID Lactulose Syrup [Enulose Syrup] Med 05/10/24 09:43 Discontinued 30 gm PO X1 ONE Nitrofurantoin Macro [Macrobid] Med 05/10/24 09:47 Discontinued 100 mg PO X1 ONE Ondansetron Inj [Zofran Inj] Med 05/10/24 12:12 Discontinued 4 mg IV Q6H PRN Pantoprazole [Protonix] Med 05/11/24 09:00 Discontinued 40 mg PO QDAY Ringers Lactated 1000 ml [Lactated Ringers] 1,000 ml Med 05/10/24 12:16 Discontinued IV 50 mls/hr Sodium Chloride 0.9% 500 ml [Ns] 500 ml Med 05/10/24 09:40 Discontinued IV 999 mls/hr cefTRIAXone/D5w 1gm IV premix [Rocephin/D5w 1gm IV Med 05/10/24 09:40 Discontinued premix] 1 gm in 50 ml IV X1 oxyCODONE IR Med 05/10/24 07:50 Discontinued 5 mg PO X1 ONE rifaximin [Xifaxan] Med 05/10/24 21:00 Discontinued 550 mg PO BID Code Status Routine Oth 05/10/24 12:12 Completed Vital Signs Vital signs: Vital Signs Temperature 98.1 F 05/10/24 02:32 Pulse Rate 56 L 05/10/24 02:32 Respiratory Rate 18 05/10/24 02:32 Blood Pressure 100/66 05/10/24 02:32 Pulse Oximetry (%) 98 05/10/24 02:32 Oxygen Delivery Method Room Air 05/10/24 02:32 [facility] Patient data External records reviewed:: [facility] previous records Clinical information provided by:: patient and family Social determinants that could affect healthcare access:: none Patient has the following chronic illnesses:: end stage liver disease secondary alcohol use disorder, esophageal varices status post banding, multiple admissions for hepatic encephalopathy due to medications non-compliance How is presenting disease/condition affected by chronic disease/condition?: caused by Evaluation data The following diagnostics were reviewed and interpreted by me:: lab results, radiology exam(s) and EKG tracing(s) Lab and/or radiology exams considered but not ordered:: CTAP Interpretation Summary: Chronic anemia, thrombocytopenia, hyperglycemia, lactic acidosis, hyperammonemia(50), UTI. Medications Medications considered but not ordered:: na Medication administrations:: Medication Administration History Discontinued Medications Acetaminophen (Acetaminophen 325 Mg Tablet) 325 mg PO Q6HR PRN PRN Reason: pain 1-3 Stop: 06/10/24 22:02 Last Admin: 05/11/24 22:43 Dose: 325 mg Documented By: Balsam Davida/Lufkin Oil (Balsam Davida/Lufkin Oil (Venelex) 60 Gm Tube) 0 gm TOP BID CELINA Stop: 06/10/24 08:59 Last Admin: 05/12/24 08:55 Dose: 1 applicatio Documented By: [email or web address] Admin: 05/11/24 21:23 Dose: Not Given Documented By: Non-Admin Reason: Patient Refused Admin: 05/11/24 10:01 Dose: 1 applicatio Documented By: WM Fosfomycin Tromethamine (Fosfomycin Pwd 3 Gm Packet (Non-Formulary)) 3 gm PO X1 ONE Stop: 05/11/24 10:28 Last Admin: 05/11/24 11:47 Dose: 3 gm Documented By: WM Ceftriaxone Sodium/Dextrose (Rocephin/D5w 1gm Iv Premix) 1 gm in 50 mls @ 100 mls/hr IV X1 ONE Stop: 05/10/24 10:09 Last Admin: 05/10/24 10:38 Dose: Not Given Documented By: JO Non-Admin Reason: Discontinued Sodium Chloride (Ns) 500 mls @ 999 mls/hr IV .Q31M ONE Stop: 05/10/24 10:10 Last Infusion: 05/10/24 11:49 Dose: Infused Documented By: Admin: 05/10/24 10:44 Dose: 999 mls/hr Documented By: GM Lactated Ringer's (Lactated Ringers) 1,000 mls @ 50 mls/hr IV .Q20H ONE Stop: 05/11/24 08:15 Last Admin: 05/10/24 12:31 Dose: 50 mls/hr Documented By: JO Ceftriaxone Sodium 1,000 mg/ (Sodium Chloride) 50 mls @ 100 mls/hr IV QDAY CELINA Stop: 05/17/24 14:05 Last Admin: 05/12/24 08:55 Dose: 100 mls/hr Documented By: Infusion: 05/11/24 10:27 Dose: Infused Documented By: Admin: 05/11/24 09:57 Dose: 100 mls/hr Documented By: Infusion: 05/10/24 16:55 Dose: Infused Documented By: Admin: 05/10/24 16:25 Dose: 100 mls/hr Documented By: Albumin Human (Albuminar-25 Ivpb) 12.5 gm in 50 mls @ 50 mls/hr IV X1 ONE Stop: 05/10/24 15:52 Last Admin: 05/10/24 17:32 Dose: Not Given Documented By: WM Non-Admin Reason: Was not given in ED. Now new order. duplicate Albumin Human (Albuminar-25 Ivpb) 12.5 gm in 50 mls @ 100 mls/hr IV BID CELINA Stop: 05/13/24 20:59 Last Admin: 05/12/24 09:13 Dose: 100 mls/hr Documented By: Infusion: 05/11/24 21:33 Dose: Infused Documented By: Admin: 05/11/24 21:03 Dose: 100 mls/hr Documented By: Infusion: 05/11/24 10:27 Dose: Infused Documented By: Admin: 05/11/24 09:57 Dose: 100 mls/hr Documented By: Infusion: 05/10/24 21:45 Dose: Infused Documented By: Admin: 05/10/24 21:15 Dose: 100 mls/hr Documented By: Lactulose (Lactulose Syrup 20 Gm/30 Ml Udc) 30 gm PO X1 ONE; Protocol Stop: 05/10/24 09:44 Last Admin: 05/10/24 10:42 Dose: 30 gm Documented By: GM Lactulose (Lactulose Syrup 20 Gm/30 Ml Udc) 30 gm PO TID CELINA; Protocol Stop: 06/09/24 13:59 Last Admin: 05/10/24 13:10 Dose: 30 gm Documented By: GM Lactulose (Lactulose Syrup 20 Gm/30 Ml Udc) 30 gm TX TID CELINA; Protocol Stop: 06/09/24 13:59 Last Admin: 05/10/24 16:35 Dose: Not Given Documented By: GM Non-Admin Reason: Discontinued Lactulose (Lactulose Syrup 20 Gm/30 Ml Udc) 30 gm PO TID CELINA; Protocol Stop: 06/09/24 21:59 Last Admin: 05/12/24 05:34 Dose: 30 gm Documented By: Admin: 05/11/24 21:29 Dose: Not Given Documented By: Non-Admin Reason: Patient Refused Admin: 05/11/24 15:05 Dose: 30 gm Documented By: Admin: 05/11/24 05:49 Dose: 30 gm Documented By: Admin: 05/10/24 21:15 Dose: 30 gm Documented By: Midodrine (Midodrine 5 Mg Tablet) 10 mg PO TID CELINA Stop: 06/09/24 14:59 Last Admin: 05/12/24 05:34 Dose: 10 mg Documented By: Admin: 05/11/24 21:23 Dose: 10 mg Documented By: Admin: 05/11/24 15:06 Dose: 10 mg Documented By: Admin: 05/11/24 05:49 Dose: 10 mg Documented By: Admin: 05/10/24 21:29 Dose: 10 mg Documented By: Admin: 05/10/24 16:23 Dose: 10 mg Documented By: JO Nitrofurantoin Macrocrystals (Nitrofurantoin Macro 100 Mg Capsule) 100 mg PO X1 ONE Stop: 05/10/24 09:48 Last Admin: 05/10/24 10:42 Dose: 100 mg Documented By: JO Ondansetron HCl (Ondansetron Inj 2 Mg/Ml Inj 2 Ml) 4 mg IV Q6H PRN; Protocol PRN Reason: NAUSEA OR VOMITING Stop: 06/09/24 12:11 Oxycodone HCl (Oxycodone Hcl 5 Mg Ir Tab) 5 mg PO X1 ONE Stop: 05/10/24 07:51 Last Admin: 05/10/24 07:55 Dose: 5 mg Documented By: JORDAN Pantoprazole Sodium (Pantoprazole 40 Mg Tablet) 40 mg PO QDAY CELINA Stop: 06/10/24 08:59 Last Admin: 05/12/24 08:55 Dose: 40 mg Documented By: Admin: 05/11/24 09:57 Dose: 40 mg Documented By: WM Rifaximin (Rifaximin 550 Mg Tablet) 550 mg PO BID CELINA Stop: 05/17/24 20:59 Last Admin: 05/12/24 08:55 Dose: 550 mg Documented By: Admin: 05/11/24 21:23 Dose: 550 mg Documented By: Admin: 05/11/24 09:57 Dose: 550 mg Documented By: Admin: 05/10/24 21:15 Dose: 550 mg Documented By: as above Consultations Consultation(s) initiated? (list below): No Diagnosis Differential Diagnosis ED Complaint MDM: hepatic encephalopathy, metabolic encephalopathy, CVA, meningitis Most likely diagnosis given after review of the tests above:: Encephalopathy of mixed ethiology, hepatic and toxic methabolic due to infection. Admission Indicated Admission indicated?: indicated Explain why admission is indicated or not indicated:: Patient presented with significant lethargy, somnolence and confusion, her ammonia was elevated and she was found to have UTI. She needs to be worked up and treated appropriately with lactulose, rifaximin and IV ABx. Admission Request Was there a request for admission?: Yes Admission Attestation Admission request attestation: Discussed case with [] from Hospitalist service regarding admission. Discussed patients ED course, exam findings, labs, and radiology results. The Hospitalist [agrees,declines] to accept the patient for admission. Disposition Plan Disposition Plan: Admit Medical Decision Making MDM Narrative MDM Narrative: This is a 53-year-old female with a significant history of end-stage liver disease secondary to alcohol use disorder and esophageal varices status post-banding, who has experienced multiple previous admissions for hepatic encephalopathy. The patient presented to the ED with worsening weakness, confusion, and somnolence. She became poorly responsive with only moaning. Her symptoms are similar to previous episodes of hepatic encephalopathy, per her accompanying mother. The patient complains of generalized body aches and a burning sensation with urination, but denies fever, chills, nausea, vomiting, or melena. She is reported to be adherent with lactulose, but bowel movements have decreased to once every day or every other day since discharge from [facility] on 04/16/24. On physical examination, she appears obese and icteric with tenderness throughout her abdomen. Neurological exam is limited due to lethargy, but she can move all four extremities. Her workup reveals chronic anemia, thrombocytopenia, hyperglycemia, lactic acidosis, hyperammonemia, and a UTI. The plan includes initiating treatment for hepatic encephalopathy with lactulose and rifaximin, addressing the UTI with IV antibiotics, and continuing close monitoring for symptom progression or complications. Differential Diagnosis Differential Diagnosis: hepatic encephalopathy, metabolic encephalopathy, CVA, meningitis Lab Data 05/12/24 04:55 05/12/24 04:55 Labs: Lab Results 05/10/24 05/10/24 05/10/24 Range/Units 03:22 08:20 09:55 WBC 5.3 (3.6-11.0) Thou/mm3 RBC 2.88 L (4.00-5.20) Miln/mm3 Hgb 10.3 L (12.0-16.0) g/dL Hct 29.7 L (36.0-46.0) % MCV 103 H (80-100) fL MCH 35.8 H (25.0-35.0) pg MCHC 34.7 (31.0-37.0) g/dl RDW Std Deviation 60.8 H (36.4-46.3) fL Plt Count 41 L (140-440) Thou/mm3 Neut % (Auto) 60 (37-80) % Lymph % (Auto) 28 (10-50) % [place] % (Auto) 8 (0-12) % Eos % (Auto) 4 (0-10) % Baso % (Auto) 1 (0-2.5) % Neut # (Auto) 3.2 (1.8-7.7) Thou/mm3 Lymph # (Auto) 1.5 (1.0-4.8) Thou/mm3 [place] # (Auto) 0.4 (0.0-0.8) Thou/mm3 Eos # (Auto) 0.2 (0.0-0.5) Thou/mm3 Baso # (Auto) 0.0 (0.0-0.2) Thou/mm3 Immature Gran # (Auto) 0.02 H (0.00-0.00) Thou/mm3 Absolute Nucleated RBC 0.00 (0.00-0.00) Thou/mm3 Immature Gran % 0 (0-0) % Nucleated RBC % 0 (0) /100 WBC Sodium 137 (136-145) mMol/L Potassium 5.0 (3.4-5.1) mMol/L Chloride 103 (98-107) mMol/L Carbon Dioxide 24.3 (20.0-31.0) mMol/L Anion Gap 10 (7-16) BUN 18 (9-23) mg/dL Creatinine 1.3 (0.6-1.3) mg/dL Estim Creat Clear Calc 42.5 L (>60) mL/min eGFR 49 L (60 - ) See Note BUN/Creatinine Ratio 14 (12-20) Ratio Glucose 107 H (74-106) mg/dL Calculated Osmolality 275 (275-295) Lactic Acid 3.5 H (0.4-2.0) mMol/L Calcium 9.4 (8.3-10.6) mg/dL Corrected Calcium 10.1 (8.5-10.1) mg/dL Magnesium 1.6 (1.6-2.6) mg/dL Total Bilirubin 5.8 H (0.3-1.2) mg/dL AST 34 (0-34) U/L ALT 15 (10-49) U/L Alkaline Phosphatase 120 H (46-116) U/L Ammonia 50 H (11-32) uMol/L Troponin I < 0.020 (0.0-0.045) ng/mL B-Natriuretic Peptide 187 H (0-100) pg/mL Total Protein 7.0 (5.7-8.2) gm/dL Albumin 3.1 L (3.5-5.0) gm/dL Globulin 3.9 H (2.3-3.5) gm/dL Albumin/Globulin Ratio 0.8 L (1.2-2.2) Procalcitonin 0.15 (0.0-0.49) ng/ml Ur Collection Type Clean Catch Urine Color Yellow (Lt Yel-Yel) Urine Clarity Turbid A (Clear/Hazy) Urine pH 6.0 (5.0-7.0) Ur Specific [place] 1.027 (1.001-1.035) Urine Protein 1+ A (Neg - Trace) Urine Glucose (UA) Negative (Negative) Urine Ketones Trace (Negative) Urine Blood 1+ A (Negative) Urine Nitrite Negative (Negative) Urine Bilirubin Negative (Negative) Urine Urobilinogen (Auto) Negative (0.0-1.0) mg/dL Ur Leukocyte Esterase Positive (Negative) Urine RBC 7 H (0-3) /hpf Urine WBC 62 H (0-5) /hpf Ur Squamous Epith Cells 6 H (0-5) /hpf Urine Bacteria 1+ A (None) Hyaline Casts < 1 (0-1) /hpf Misc Test Result Platelets confirmed Discharge Plan Plan Patient Disposition: Admit Acute Care w/in Hospital Patient condition on transfer: Stable Problem List Clinical Impression: Acute hepatic encephalopathy, Encephalopathy due to infection Patient/Caregiver Discharge Instructions Discharge Activity: activity as tolerated MD Attestation MD Attestation The patient was seen by the PGY-2. I, the supervising physician, also encountered and examined the patient remaining present during the entire ER visit for consultation as needed. With the PGY 2 we formulated the analysis, management, treatment plan, medical decision making, and documentation. I agree with the plan and documentation.
[2024-05-10 08:39] LABS: Collection Type, Urine Clean Catch
[2024-05-10 08:53] LABS: Bacteria,Urine 1+; Bilirubin,Urine Negative (Negative); Blood,Urine 1+ (Negative); Clarity,Urine Turbid (Clear/Hazy); Color,Urine Yellow (Lt Yel-Yel); Glucose, Urine Negative (Negative); Hyaline Casts,Urine < 1 /hpf (0-1); Ketones,Urine Trace (Negative); Leukocyte Esterase,Urine Positive (Negative); Nitrite,Urine Negative (Negative); Protein,Urine 1+ (Neg - Trace); RBC,Urine 7 /hpf (0-3); Specific Gravity,Urine 1.027 (1.001-1.035); Squamous Epithelial Cell,Urine 6 /hpf (0-5); Urobilinogen,Urine Negative mg/dL (0.0-1.0); WBC,Urine 62 /hpf (0-5)
--- NOTE | 2024-05-10 09:57 | PC.NURSE ---
POSSIBLE STAGE 2 PRESSURE INJURY NOTED TO L SACRUM; NO DRAINAGE NOTED. ALLEVYN FOAM DRESSING PLACED FOR PROTECTION AT THIS TIME.
[2024-05-10 10:08] LABS: Lactate (Lactic Acid) 3.5 mMol/L (0.4-2.0)
[2024-05-10] MEDS: LACTULOSE SYRUP 20 GM/30 ML UDC 30 GM PO ×3 (10:42→21:15)
[2024-05-10] MEDS: NITROFURANTOIN MACRO 100 MG CAPSULE PO (10:42)
[2024-05-10] MEDS: SODIUM CHLORIDE 0.9% 500 ML 500 ML 999 ML IV (10:44)
[2024-05-10 10:58] LABS: Procalcitonin 0.15 ng/ml (0.0-0.49)
[2024-05-10] MEDS: RINGERS LACTATED 1000 ML 1,000 ML 50 ML IV (12:31)
[2024-05-10 13:06] LABS: Reflex Lactate? Y
[2024-05-10 13:26] LABS: Lactic Acid, 3 HR 3.2 mMol/L (0.4-2.0)
--- NOTE | 2024-05-10 14:05 | XR_ITS ---
Examination: CT abdomen and pelvis without contrast. Coronal 3-D reconstructions. Sagittal 2-D reconstructions. Date and time of exam:May 10, 2024 1450 hours INDICATIONS: Abdominal pain generalized today COMPARISON: April 04, 2024 CTDI: vol (mGy): 10.1 DLP: (mGycm): 551 Technique: Axial images of the abdomen have been obtained, 3 mm slice thickness Intravenous contrast material has not been administered. Low dose protocols were performed. One or more of the following dose reduction techniques were used; automated exposure control, adjustment of the mA and/or KV according to patient size, use of iterative reconstruction technique. Findings: Cirrhosis, liver nodular in contour Distended gallbladder No splenic or pancreatic mass Esophageal varices Bilateral renal calculi including 7 mm calculus in the right renal pelvis No hydronephrosis No bowel obstruction Mildly fluid distended small bowel loops Atrophic uterus Urinary bladder intact Scattered colonic diverticulosis Moderate osteopenia IMPRESSION: Cirrhosis Esophageal varices Distended gallbladder, recommend hepatobiliary sonography follow-up Bilateral nonobstructing renal calculi, including 7 mm calculus in the right renal pelvis Mildly fluid distended small bowel loops, consider ileus, enteritis
--- NOTE | 2024-05-10 14:31 | ESHP_ITS ---
<Statement entered by Torin Beasley MD - 05/11/24 11:26> I have discussed and was present for the essential components of the history, physical examination, diagnosis, and treatment plan with the resident. I agree with the patient's care as documented by the resident and amended herein by me. Torin Beasley MD FACP. <Statement entered by Stacy Patton MD - 05/11/24 11:15> I discussed with and supervised the undergraduate intern physician who took care of this patient. I personally saw and examined the patient and discussed the assessment and plan with the entire medicine team, including my attending , I agree with most of the assessment and plan as documented below Stacy Patton M.D. PGY-2 Documentation for date of: 05/10/24 HPI History of Present Illness Chief complaint: AMS History of present illness: 53 y/o F with PMHx significant for cirrhosis, repeat episodes of hepatic encephalopathy who presented to ED on 05/10/2024 from home with chief complaint of increased lethargy and confusion. Patient is poor historian, most of history taken from chart review. Reportedly patient is on been having 1 bowel movement every 1 to 2 days despite lactulose treatment. Also reports dysuria. Patient altered in ED, but denies fever, chills, chest pain, nausea, vomiting. ED COURSE: Labs significant for: WBCs 5.3, hemoglobin 10.3, ammonia 50, lactic acid 3.5, Pro-Kirby negative. BUN 18, creatinine 1.3, both above baseline. Imaging significant for: Chest x-ray unremarkable. CT head unremarkable. CT abdomen pelvis showed cirrhosis, did not show ascites. Patient received half liter bolus normal saline, 1 dose lactulose, Macrobid and Rocephin. Past medical history: End-stage liver disease, alcohol use disorder Allergies: No known drug allergies Medication: Midodrine 10 mg 3 times daily, lactulose, Lasix 40 mg daily, multivitamin Surgical history: Appendectomy, 2 , 2 laparoscopic procedures for endometriosis Social history: Denies any tobacco use, alcohol or illicit drug use Family history: Denies any pertinent family history denies any family history of liver or heart disease Review of Systems Review of Systems Systems Reviewed: All systems reviewed, normal except as documented Past Medical History Past Medical History Comments PMH COMMENT: Past medical history: End-stage liver disease, alcohol use disorder Allergies: No known drug allergies Medication: Midodrine 10 mg 3 times daily, lactulose, Lasix 40 mg daily, multivitamin Surgical history: Appendectomy, 2 , 2 laparoscopic procedures for endometriosis Social history: Denies any tobacco use, alcohol or illicit drug use Family history: Denies any pertinent family history denies any family history of liver or heart disease Exam Vital Signs Temp Pulse Resp BP Pulse Ox O2 Del Method 98.1 F 49 L 12 102/54 L 100 Room Air 05/10/24 13:24 05/10/24 13:24 05/10/24 13:24 05/10/24 13:24 05/10/24 13:24 05/10/24 13:24 Narrative Exam PE: Gen: Well-developed and well-nourished. Lethargic. HEENT: NCAT, PERRLA, EOMI, MMM, anicteric conjunctivae. CVS: normal S1 and S2. RRR. No M/R/G. Resp: CTA B/L. No rhonchi, rales, crackles or wheezing. Abd: soft, non-distended. Diffuse abdominal tenderness. MSK: Good ROM in BUE & BLE. No rash. Trace edema. Neuro: CN II-XII grossly intact. Strength 5/5 in BUE & BLE. A&O x 1, lethargic, responds to questions appropriately. Psych: appropriate mood and affect. Results: Labs 05/10/24 03:22 05/10/24 03:22 Labs: Short CBC 05/10/24 Range/Units 03:22 WBC 5.3 (3.6-11.0) Thou/mm3 Hgb 10.3 L (12.0-16.0) g/dL Hct 29.7 L (36.0-46.0) % Plt Count 41 L (140-440) Thou/mm3 BMP 05/10/24 03:22 Sodium 137 Potassium 5.0 Chloride 103 Carbon Dioxide 24.3 BUN 18 Creatinine 1.3 Glucose 107 H Calcium 9.4 Cardiac Enzymes 05/10/24 Range/Units 03:22 Troponin I < 0.020 (0.0-0.045) ng/mL Liver Function 05/10/24 Range/Units 03:22 Total Bilirubin 5.8 H (0.3-1.2) mg/dL AST 34 (0-34) U/L ALT 15 (10-49) U/L Alkaline Phosphatase 120 H (46-116) U/L Albumin 3.1 L (3.5-5.0) gm/dL Urine 05/10/24 Range/Units 08:20 Urine Color Yellow (Lt Yel-Yel) Urine Clarity Turbid A (Clear/Hazy) Urine pH 6.0 (5.0-7.0) Ur Specific [place] 1.027 (1.001-1.035) Urine Protein 1+ A (Neg - Trace) Urine Glucose (UA) Negative (Negative) Quality Measures Quality Measures VTE prophylaxis Medications Home Medications and Allergies Home Medications ?Medication ?Instructions ?Recorded ?Confirmed ?Type midodrine 10 mg tablet 10 mg PO TID 01/12/24 History rifaximin 550 mg tablet (Xifaxan) 550 mg PO BID 04/06/24 History ferrous sulfate 325 mg (65 mg 325 mg PO DAILY 01/22/24 04/06/24 History iron) tablet ergocalciferol (vitamin D2) 1,250 1,250 mcg PO QWEEK 1 04/08/23 04/06/24 History mcg (50,000 unit) capsule (Vitamin D2) methocarbamol 750 mg tablet 750 mg PO BID 02/06/24 History oxycodone 5 mg tablet 5 mg PO Q12H PRN Pain 04/06/24 History Allergies Allergy/AdvReac Type Severity Reaction Status Date / Time latex Allergy Severe Hives Verified 04/13/24 09:15 Visit Medications Lactated Ringer's (Lactated Ringers) 1,000 mls @ 50 mls/hr IV .Q20H ONE Stop: 05/11/24 08:15 Last Admin: 05/10/24 12:31 Dose: 50 mls/hr Ceftriaxone Sodium 1,000 mg/ (Sodium Chloride) 50 mls @ 100 mls/hr IV QDAY CELINA Stop: 05/17/24 14:05 Lactulose (Lactulose Syrup 20 Gm/30 Ml Udc) 30 gm UT TID CELINA; Protocol Stop: 06/09/24 13:59 Ondansetron HCl (Ondansetron Inj 2 Mg/Ml Inj 2 Ml) 4 mg IV Q6H PRN; Protocol PRN Reason: NAUSEA OR VOMITING Stop: 06/09/24 12:11 Pantoprazole Sodium (Pantoprazole 40 Mg Tablet) 40 mg PO QDAY [facility] Stop: 06/10/24 08:59 Rifaximin (Rifaximin 550 Mg Tablet) 550 mg PO BID [facility] Stop: 05/17/24 20:59 Discontinued Medications Ceftriaxone Sodium/Dextrose (Rocephin/D5w 1gm Iv Premix) 1 gm in 50 mls @ 100 mls/hr IV X1 ONE Stop: 05/10/24 10:09 Last Admin: 05/10/24 10:38 Dose: Not Given Sodium Chloride (Ns) 500 mls @ 999 mls/hr IV .Q31M ONE Stop: 05/10/24 10:10 Last Infusion: 05/10/24 11:49 Dose: Infused Lactulose (Lactulose Syrup 20 Gm/30 Ml Udc) 30 gm PO X1 ONE; Protocol Stop: 05/10/24 09:44 Last Admin: 05/10/24 10:42 Dose: 30 gm Lactulose (Lactulose Syrup 20 Gm/30 Ml Udc) 30 gm PO TID CELINA; Protocol Stop: 06/09/24 13:59 Last Admin: 05/10/24 13:10 Dose: 30 gm Nitrofurantoin Macrocrystals (Nitrofurantoin Macro 100 Mg Capsule) 100 mg PO X1 ONE Stop: 05/10/24 09:48 Last Admin: 05/10/24 10:42 Dose: 100 mg Oxycodone HCl (Oxycodone Hcl 5 Mg Ir Tab) 5 mg PO X1 ONE Stop: 05/10/24 07:51 Last Admin: 05/10/24 07:55 Dose: 5 mg Assessment & Plan Plan 53 y/o F with PMHx significant for cirrhosis, repeat episodes of hepatic encephalopathy who presented to ED on 05/10/2024 from home with chief complaint of increased lethargy and confusion, admitted for hepatic cephalopathy #Hepatic encephalopathy #Cirrhosis Patient has history of cirrhosis, multiple admissions for hepatic encephalopathy. Patient is noncompliant with home lactulose, reportedly only having 1 bowel movement every 1-2 days. Patient presented lethargic, confused. Ammonia elevated at 50. CT head unremarkable, CT abdomen/pelvis showed no ascites. Patient passed bedside swallow screen. -Lactulose 30 mg p.o. 3 times daily, titrate to 3 bowel movements daily -Rifaximin 550 mg p.o. twice daily -Albumin 25% IV twice daily -IVF: Lactated Ringer's at 50 mL/h -Protonix 40 mg p.o. twice daily #Possible UTI, sepsis ruled out Patient initially reported dysuria. Urinalysis indicates potential infection, elevated squamous epithelial cells indicates contamination. Patient afebrile, no leukocytosis -Rocephin 1 g IV daily (started 05/10) #Bradycardia, chronic Patient bradycardic in the ED, heart rate 47?50. Patient has history of bradycardia, previous admissions frequently showing heart rate this low. EKG unremarkable. -Med/tele -Midodrine 10 mg p.o. 3 times daily DVT prophylaxis: Lovenox GI prophylaxis: Protonix Diet: Regular Lines: Peripheral IV Code status: Full code Plan of care discussed with senior resident Dr. Patton PGY?[address] Beasley. Rene Cui MD PGY?1
--- NOTE | 2024-05-10 15:12 | PC.CC ---
Patient is a 53 year-old female who presents to the hospital for AMS. Ofe MORENO made [id number] contact with patient. ASW introduced self, role, and reason for visit. Patient appeared alert and oriented to self, location, and situation. Patient was pleasant and engaged in initial assessment. Patient's medical decision maker is her mother, Bridgett Knight in the event she is unable to make her own medical decisions. Patient lives at home with family and confirmed information on demographics. At home patient is bed bound but is receiving Home Health Physical Therapy. Patient does have access to a wheelchair at home. Patient is max assist with ADLs. Patient receives primary care with Ingrid Darling and uses [facility] for prescription medications. Patient is not interested in going to a SNF and would like to return home upon discharge. donor services team leader to follow-up with any discharge needs.
[2024-05-10] MEDS: MIDODRINE 5 MG TABLET 10 MG PO ×2 (16:23→21:29)
[2024-05-10] MEDS: cefTRIAXone 1,000 MG in SODIUM CHLORIDE 0.9% (Popper) 50 ML 100 MG IV (16:25)
[2024-05-10] MEDS: rifaximin 550 MG TABLET PO (21:15)
[2024-05-10] MEDS: ALBUMIN HUMAN 25% IVPB 12.5 GM/50 ML BTL IV (21:15)
[2024-05-11] VITALS (12 sets, daily range): BP systolic 103–118; BP diastolic 55–70; PULSE 49–68; RESP 14–18; TEMP 36.1–37.1; O2SAT 97–98; BMI 32.6
[2024-05-11] MEDS: MIDODRINE 5 MG TABLET 10 MG PO ×3 (05:49→21:23)
[2024-05-11] MEDS: LACTULOSE SYRUP 20 GM/30 ML UDC 30 GM PO ×2 (05:49→15:05)
[2024-05-11 06:38] LABS: Basophils % (Auto) 1 % (0-2.5); Eosinophils # (Auto) 0.1 Thou/mm3 (0.0-0.5); Eosinophils % (Auto) 4 % (0-10); Immature Granulocytes % (Auto) 0 % (0-0); Immature Granulocytes Auto 0.01 Thou/mm3 (0.00-0.00); Lymphocytes # (Auto) 0.9 Thou/mm3 (1.0-4.8); Lymphocytes % (Auto) 27 % (10-50); Mean Corpuscular HGB Conc 34.8 g/dl (31.0-37.0); Mean Corpuscular Hemoglobin 36.3 pg (25.0-35.0); Mean Corpuscular Volume 104 fL (80-100); Monocytes # (Auto) 0.4 Thou/mm3 (0.0-0.8); Monocytes % (Auto) 11 % (0-12); Neutrophils # (Auto) 1.9 Thou/mm3 (1.8-7.7); Neutrophils % (Auto) 57 % (37-80); Nucleated Red Blood Cell % 0 /100 WBC (0); RDW Standard Deviation 61.2 fL (36.4-46.3); White Blood Count 3.3 Thou/mm3 (3.6-11.0)
[2024-05-11 07:00] LABS: Alanine Aminotransferase 14 U/L (10-49); Albumin, Serum 2.7 gm/dL (3.5-5.0); Albumin/Globulin Ratio 0.8 (1.2-2.2); Alkaline Phosphatase 99 U/L (46-116); Anion Gap 9 (7-16); Aspartate Amino Transferase 37 U/L (0-34); BUN/Creatinine Ratio 16 Ratio (12-20); Bilirubin,Total 5.3 mg/dL (0.3-1.2); Blood Urea Nitrogen 14 mg/dL (9-23); Calcium 9.2 mg/dL (8.3-10.6); Calcium (Corrected) 10.2 mg/dL (8.5-10.1); Carbon Dioxide 23.7 mMol/L (20.0-31.0); Chloride 106 mMol/L (98-107); Creatinine (Component) 0.9 mg/dL (0.6-1.3); Estimated Creatinine Clearance 61.3 mL/min (>60); Globulin 3.5 gm/dL (2.3-3.5); Glucose 185 mg/dL (74-106); Magnesium 1.6 mg/dL (1.6-2.6); Osmolality,Calculated 283 (275-295); Phosphorous 2.7 mg/dL (2.4-5.1); Potassium 4.8 mMol/L (3.4-5.1); Sodium 139 mMol/L (136-145); Total Protein 6.2 gm/dL (5.7-8.2); eGFR > 60 See Note
[2024-05-11 07:45] LABS: Hemoglobin 8.7 g/dL (12.0-16.0); Platelet Count 48 Thou/mm3 (140-440)
[2024-05-11 09:31] LABS: Slide Review Platelets confirmed
[2024-05-11] MEDS: PANTOPRAZOLE 40 MG TABLET PO (09:57)
[2024-05-11] MEDS: cefTRIAXone 1,000 MG in SODIUM CHLORIDE 0.9% (Popper) 50 ML 100 MG IV (09:57)
[2024-05-11] MEDS: rifaximin 550 MG TABLET PO ×2 (09:57→21:23)
[2024-05-11] MEDS: ALBUMIN HUMAN 25% IVPB 12.5 GM/50 ML BTL IV ×2 (09:57→21:03)
[2024-05-11] MEDS: BALSAM PERU/CASTOR OIL (Venelex) 60 GM TUBE TOP (10:01)
--- NOTE | 2024-05-11 11:18 | ESPR_ITS ---
<Statement entered by Torin Beasley MD - 05/12/24 17:12> I have discussed and was present for the essential components of the history, physical examination, diagnosis, and treatment plan with the resident. I agree with the patient's care as documented by the resident and amended herein by me. Torin Beasley MD FACP. <Statement entered by Stacy Patton MD - 05/12/24 14:38> I discussed with and supervised the internet ecommerce specialist physician who took care of this patient. I personally saw and examined the patient and discussed the assessment and plan with the entire medicine team, including my attending Dr. Beasley, I agree with most of the assessment and plan as documented below Stacy Patton M.D. PGY-2 Documentation for date of: 05/11/24 Subjective Subjective Interval history: No overnight events. Patient seen examined at bedside, resting largely. Patient is lethargic but more alert and oriented today. Patient endorses dysuria, fatigue, abdominal pain. Denies fever, chills, shortness of breath, chest pain, nausea, vomiting. Continue to treat hepatic encephalopathy with lactulose and rifaximin. Gave fosfomycin for UTI based on previous cultures. Exam Vital Signs Temp Pulse Resp BP Pulse Ox O2 Del Method 97.9 F 67 18 103/55 L 97 Room Air 05/11/24 08:00 05/11/24 08:00 05/11/24 08:00 05/11/24 08:00 05/11/24 08:00 05/10/24 18:29 Narrative Exam PE: Gen: Well-developed and well-nourished. Lethargic, improved. HEENT: NCAT, PERRLA, EOMI, MMM, anicteric conjunctivae. CVS: normal S1 and S2. RRR. No M/R/G. Resp: CTA B/L. No rhonchi, rales, crackles or wheezing. Abd: soft, non-distended. Diffuse abdominal tenderness. MSK: Good ROM in BUE & BLE. No rash. Trace edema. Neuro: CN II-XII grossly intact. Strength 5/5 in BUE & BLE. A&Ox3, lethargic, responds to questions appropriately. Psych: appropriate mood and affect. Objective Labs 05/11/24 05:52 05/11/24 05:52 Labs: Laboratory Results - last 24 hr 05/10/24 05/11/24 13:20 05:52 WBC 3.3 L RBC 2.40 L Hgb 8.7 L Hct 25.0 L MCV 104 H MCH 36.3 H MCHC 34.8 RDW Std Deviation 61.2 H Plt Count 48 L Neut % (Auto) 57 Lymph % (Auto) 27 [place] % (Auto) 11 Eos % (Auto) 4 Baso % (Auto) 1 Neut # (Auto) 1.9 Lymph # (Auto) 0.9 L [place] # (Auto) 0.4 Eos # (Auto) 0.1 Baso # (Auto) 0.0 Immature Gran # (Auto) 0.01 H Absolute Nucleated RBC 0.00 Immature Gran % 0 Nucleated RBC % 0 Sodium 139 Potassium 4.8 Chloride 106 Carbon Dioxide 23.7 Anion Gap 9 BUN 14 Creatinine 0.9 Estim Creat Clear Calc 61.3 eGFR > 60 BUN/Creatinine Ratio 16 Glucose 185 H D Calculated Osmolality 283 Lactic Acid 3.2 H Calcium 9.2 Corrected Calcium 10.2 H Phosphorus 2.7 Magnesium 1.6 Total Bilirubin 5.3 H D AST 37 H ALT 14 Alkaline Phosphatase 99 D Total Protein 6.2 Albumin 2.7 L Globulin 3.5 Albumin/Globulin Ratio 0.8 L Misc Test Result Platelets confirmed Quality Measures Quality Measures VTE prophylaxis Assessment & Plan Assessment Current Active Medications: Generic Name Dose Route Start Last Admin Trade Name Freq PRN Reason Stop Dose Admin Balsam [place] Oil 0 gm 05/11/24 09:00 05/11/24 10:01 Balsam [place] Oil (Venelex) 60 Gm Tube TOP 06/10/24 08:59 1 applicatio BID CELINA Administration Ceftriaxone Sodium 1,000 mg/ 50 mls @ 100 mls/hr 05/10/24 14:06 05/11/24 09:57 Sodium Chloride IV 05/17/24 14:05 100 mls/hr QDAY CELINA Administration Albumin Human 12.5 gm in 50 mls @ 100 mls/hr 05/10/24 21:00 05/11/24 09:57 Albuminar-25 Ivpb IV 05/13/24 20:59 100 mls/hr BID CELINA Administration Lactulose 30 gm 05/10/24 22:00 05/11/24 05:49 Lactulose Syrup 20 Gm/30 Ml Udc PO 06/09/24 21:59 30 gm TID CELINA Administration Protocol Midodrine 10 mg 05/10/24 15:00 05/11/24 05:49 Midodrine 5 Mg Tablet PO 06/09/24 14:59 10 mg TID CELINA Administration Ondansetron HCl 4 mg 05/10/24 12:12 Ondansetron Inj 2 Mg/Ml Inj 2 Ml IV 06/09/24 12:11 Q6H PRN NAUSEA OR VOMITING Protocol Pantoprazole Sodium 40 mg 05/11/24 09:00 05/11/24 09:57 Pantoprazole 40 Mg Tablet PO 06/10/24 08:59 40 mg QDAY CELINA Administration Rifaximin 550 mg 05/10/24 21:00 05/11/24 09:57 Rifaximin 550 Mg Tablet PO 05/17/24 20:59 550 mg BID CELINA Administration Plan 53 y/o F with PMHx significant for cirrhosis, repeat episodes of hepatic encephalopathy who presented to ED on 05/10/2024 from home with chief complaint of increased lethargy and confusion, admitted for hepatic cephalopathy #Hepatic encephalopathy, improved #Cirrhosis Patient has history of cirrhosis, multiple admissions for hepatic encephalopathy. Patient is noncompliant with home lactulose, reportedly only having 1 bowel movement every 1-2 days. Patient presented lethargic, confused. Ammonia elevated at 50. CT head unremarkable, CT abdomen/pelvis showed no ascites. Patient passed bedside swallow screen. Patient showed improvement with increasing orientation, improved lethargy although still present. Patient received IVF lactated Ringer's at 50 mL/h x 1 L. -Lactulose 30 mg p.o. 3 times daily, titrate to 3 bowel movements daily -Rifaximin 550 mg p.o. twice daily -Albumin 25% IV twice daily -Protonix 40 mg p.o. twice daily #Possible UTI, sepsis ruled out Patient reports dysuria. Urinalysis indicates potential infection, elevated squamous epithelial cells indicates contamination. Patient afebrile, no leukocytosis. Previous culture grew Vanco resistant Enterococcus. -Rocephin 1 g IV daily (started 05/10) -Fosfomycin 3 g p.o. x 1, based on previous culture #Bradycardia, chronic Patient bradycardic in the ED, heart rate 47?50. Patient has history of bradycardia, previous admissions frequently showing heart rate this low. EKG unremarkable. -Med/tele -Midodrine 10 mg p.o. 3 times daily DVT prophylaxis: Lovenox GI prophylaxis: Protonix Diet: Regular Lines: Peripheral IV Code status: Full code Plan of care discussed with senior resident Dr. Patton PGY?[address] Beasley. Rene Cui MD PGY?1
[2024-05-11] MEDS: FOSFOMYCIN PWD 3 GM PACKET (NON-FORMULARY) PO (11:47)
--- NOTE | 2024-05-11 15:25 | PC.NURSE ---
Patient complaining about Venelex burning her wound. Consulted with wound nurse Emi. Will try Z gaurd for now and if Z guard works for patient, will discontinue the venelex.
[2024-05-11] MEDS: ACETAMINOPHEN 325 MG TABLET PO (22:43)
[2024-05-12] VITALS (7 sets, daily range): BP systolic 93–117; BP diastolic 56–74; PULSE 52–82; RESP 14–18; TEMP 36.6; O2SAT 97–99
[2024-05-12] MEDS: LACTULOSE SYRUP 20 GM/30 ML UDC 30 GM PO (05:34)
[2024-05-12] MEDS: MIDODRINE 5 MG TABLET 10 MG PO (05:34)
[2024-05-12 05:58] LABS: Basophils % (Auto) 1 % (0-2.5); Eosinophils # (Auto) 0.2 Thou/mm3 (0.0-0.5); Eosinophils % (Auto) 4 % (0-10); Hematocrit 26.7 % (36.0-46.0); Hemoglobin 9.3 g/dL (12.0-16.0); Immature Granulocytes % (Auto) 0 % (0-0); Immature Granulocytes Auto 0.01 Thou/mm3 (0.00-0.00); Lymphocytes # (Auto) 1.3 Thou/mm3 (1.0-4.8); Lymphocytes % (Auto) 32 % (10-50); Mean Corpuscular HGB Conc 34.8 g/dl (31.0-37.0); Mean Corpuscular Hemoglobin 35.8 pg (25.0-35.0); Mean Corpuscular Volume 103 fL (80-100); Monocytes # (Auto) 0.4 Thou/mm3 (0.0-0.8); Monocytes % (Auto) 9 % (0-12); Neutrophils # (Auto) 2.2 Thou/mm3 (1.8-7.7); Neutrophils % (Auto) 54 % (37-80); Nucleated Red Blood Cell % 0 /100 WBC (0); RDW Standard Deviation 60.8 fL (36.4-46.3)
[2024-05-12 06:16] LABS: Platelet Count 41 Thou/mm3 (140-440)
[2024-05-12 06:47] LABS: Alanine Aminotransferase 13 U/L (10-49); Albumin/Globulin Ratio 0.9 (1.2-2.2); Alkaline Phosphatase 103 U/L (46-116); Anion Gap 8 (7-16); Aspartate Amino Transferase 31 U/L (0-34); BUN/Creatinine Ratio 10 Ratio (12-20); Bilirubin,Total 4.8 mg/dL (0.3-1.2); Blood Urea Nitrogen 9 mg/dL (9-23); Calcium 9.3 mg/dL (8.3-10.6); Calcium (Corrected) 10.1 mg/dL (8.5-10.1); Carbon Dioxide 25.1 mMol/L (20.0-31.0); Chloride 108 mMol/L (98-107); Creatinine (Component) 0.9 mg/dL (0.6-1.3); Estimated Creatinine Clearance 63.9 mL/min (>60); Globulin 3.4 gm/dL (2.3-3.5); Glucose 138 mg/dL (74-106); Magnesium 1.6 mg/dL (1.6-2.6); Osmolality,Calculated 281 (275-295); Phosphorous 3.2 mg/dL (2.4-5.1); Potassium 4.2 mMol/L (3.4-5.1); Sodium 141 mMol/L (136-145); Total Protein 6.4 gm/dL (5.7-8.2); eGFR > 60 See Note
[2024-05-12 07:18] LABS: Slide Review Platelets confirmed
[2024-05-12] MEDS: BALSAM PERU/CASTOR OIL (Venelex) 60 GM TUBE TOP (08:55)
[2024-05-12] MEDS: PANTOPRAZOLE 40 MG TABLET PO (08:55)
[2024-05-12] MEDS: rifaximin 550 MG TABLET PO (08:55)
[2024-05-12] MEDS: cefTRIAXone 1,000 MG in SODIUM CHLORIDE 0.9% (Popper) 50 ML 100 MG IV (08:55)
[2024-05-12] MEDS: ALBUMIN HUMAN 25% IVPB 12.5 GM/50 ML BTL IV (09:13)
--- NOTE | 2024-05-12 14:46 | PD.RESDS ---
Planned Discharge Date 05/12/24 DS: Providers Provider Date of admission: 05/10/24 13:09 Primary care physician: OPAL Salgado Admitting Provider: Torin Beasley MD Attending Provider on Admission: Torin Beasley MD Consults: 05/10/24 18:07 [facility] Referral - Knowledge Deficit Routine Comment: Positive screening for knowledge deficit needs. [facility] Referral - Nutrition Routine Comment: Positive screening for nutrition needs. [facility] Referral - Utilities Routine Comment: Positive screening for utility assistance needs. 05/10/24 19:39 Referral Nutritional Services Routine Comment: Referral Wound Care Routine Comment: Attending Provider on DC: Zach Beaulieu MD Discharging Provider: Zach Beaulieu MD DS: Diagnosis Problem List Completed Was Problem List Reviewed/Reconciled?: Yes Hospital Course Hospital Course Hospital course: 53 y/o F with PMHx significant for cirrhosis, repeat episodes of hepatic encephalopathy who presented to ED on 05/10/2024 from home with chief complaint of increased lethargy and confusion. Patient is poor historian, most of history taken from chart review. Reportedly patient is on been having 1 bowel movement every 1 to 2 days despite lactulose treatment. Also reported dysuria. Patient altered in ED, but denies fever, chills, chest pain, nausea, vomiting. Patient was started on lactulose and rifaximin. Patient mentation continued to improved. Also patient continue to report dysuria. Urine cultured showed ESBL, was given a dose of fosfomycin 3g x1. Labs and virals were reviewed. Patients mentation is back to baseline. Patient is clinically table for discharge. Discharge instructions include continue current medications are prescribed. All questions and concerns were addressed at bedside. Patient has verbal understanding of the discharge plan. Status at Discharge Functional status at discharge: independent ambulation Overall status at discharge: patient is back to baseline Time Spent with Patient Time attestation: Total time spent providing and/or coordinating discharge services: Time spent: Greater than 30 minutes Exam Vital Signs Temp Pulse Resp BP Pulse Ox O2 Del Method 97.9 F 60 17 107/58 L 98 Room Air 05/12/24 12:00 05/12/24 12:00 05/12/24 12:00 05/12/24 12:00 05/12/24 12:00 05/12/24 12:00 Narrative Exam PE: Gen: Well-developed and well-nourished. AOX3 HEENT: NCAT, PERRLA, EOMI, MMM, anicteric conjunctivae. CVS: normal S1 and S2. RRR. No M/R/G. Resp: CTA B/L. No rhonchi, rales, crackles or wheezing. Abd: soft, non-distended. Resolved Diffuse abdominal tenderness. MSK: Good ROM in BUE & BLE. No rash. Trace edema. Neuro: CN II-XII grossly intact. Strength 5/5 in BUE & BLE. A&Ox3, responds to questions appropriately. Psych: appropriate mood and affect. Discharge Plan Plan Patient Disposition: HOME (Self Care) Patient condition on transfer: Stable Care Plan Goals: Patient is cleared to be discharged. Patient needs to continue taking lactulose 30g three times a day with a goal of 2-3 bowel movements a day Patient needs to follow up with their PCP in 1 week after discharge. Prescriptions/Referrals Prescriptions/Med Rec: Continued pantoprazole 40 mg tablet,delayed release (DR/EC) 40 mg PO QDAY Qty: 30 0RF lactulose 20 gram/30 mL Solution 30 g PO TID 30 Days Qty: 4050 1RF methocarbamol 750 mg Tablet 750 mg PO BID ergocalciferol (vitamin D2) [Vitamin D2] 1,250 mcg (50,000 unit) Capsule 1,250 mcg PO QWEEK oxycodone 5 mg tablet 5 mg PO Q12H PRN (Reason: Pain) Patient Comments: TAKE 1 TABLET BY MOUTH EVERY 12 HOURS NEEDED FOR PAIN cholestyramine (with sugar) 4 gram powder in packet 4 g PO BID Qty: 60 0RF Rx Instructions: administer w/meal; avoid other meds within 1hr before or 4-6hr after dose Xifaxan 550 mg tablet 550 mg PO BID Patient Comments: TAKE 1 TABLET BY MOUTH TWICE A DAY FOR 1 MONTH ferrous sulfate 325 mg (65 mg iron) tablet 325 mg PO DAILY Patient Comments: TAKE 1 TABLET BY MOUTH DAILY WITH ORANGE JUICE. -DO NOT GIVE CAFFEINE multivitamin with folic acid [Daily-Dena (with folic acid)] 400 mcg tablet 1 tab PO QAM Qty: 30 0RF furosemide [Lasix] 20 mg tablet 20 mg PO QDAY Qty: 90 0RF Rx Instructions: Hold if SBP drops below 100 and DBP below 60 mmHg midodrine 5 mg tablet 5 mg PO TID metformin 500 mg tablet 500 mg PO BID Patient Comments: TAKE 1 TABLET BY MOUTH TWICE DAILY multivitamin Tablet 1 tab PO QDAY Patient Comments: TAKE 1 TABLET BY MOUTH ONCE DAILY EVERY MORNING AT 9AM propranolol 40 mg tablet 40 mg PO QDAY Patient Comments: TAKE 1 TABLET BY MOUTH DAILY mirtazapine 15 mg tablet 15 mg PO HS Patient Comments: TAKE 1 TABLET BY MOUTH AT BEDTIME Discontinued midodrine 10 mg tablet 10 mg PO TID Patient Comments: PLEASE SEE ATTACHED FOR DETAILED DIRECTIONS Referrals: Ingrid Darling FNP-C [Primary Care Provider] - Patient/Caregiver Discharge Instructions Discharge Activity: activity as tolerated Print Language: Occitan Stand Alone Forms: [facility] Award Info., Patient Portal Info Letter Discharge Order Discharge Orders: Discharge (Routine); Ordered 05/12/24 Ordered By: Zach Beaulieu Quality Discharge Quality Measures VTE prophylaxis
== END 2024-05-12 14:28 | disposition home or self-care (01) | DRG 280 ==
LOC: SERX 07:48 → SERHOLD 13:26 → S3NX 05-11 06:22
PROVIDERS: Physician Assistant; Student in an Organized Health Care Education/Training Program; Admitting Provider Internal Medicine; Emergency Provider Emergency Medicine; Visit Provider Internal Medicine
DX: K74.60 Unspecified cirrhosis of liver (principal); K76.82 Hepatic encephalopathy; K72.10 Chronic hepatic failure without coma; K70.9 Alcoholic liver disease, unspecified; R00.1 Bradycardia, unspecified; N39.0 Urinary tract infection, site not specified; E87.20 Acidosis, unspecified; D69.6 Thrombocytopenia, unspecified; E66.9 Obesity, unspecified; Z68.32 Body mass index [BMI] 32.0-32.9, adult; D64.9 Anemia, unspecified; Z79.899 Other long term (current) drug therapy; Z91.199 Patient's noncompliance with other medical treatment and regimen due to unspecified reason; Z16.12 Extended spectrum beta lactamase (ESBL) resistance
CPT/HCPCS: 36415; 70450; 71045; 74176; 80053; 81001; 82140; 83605; 83735; 83880; 84100; 84145; 84484; 85025; 87077; 87086; 87186; 93005; 93225; 96361; 96365; 99285; J0696; J7040; J7050; J7120; P9047; A9270

== ENCOUNTER 2024-05-26 10:27 | Inpatient (IN) | payer MEDICAID, SELFPAY ==
[2024-05-26] VITALS (11 sets, daily range): BP systolic 87–105; BP diastolic 48–55; PULSE 45–68; RESP 14–20; TEMP 36.2–36.7; O2SAT 96–100; BMI 31.3
--- NOTE | 2024-05-26 10:31 | PC.NURSE ---
Patient to er from home with c/o altered mental status since 0500am, h/o Liver disease, currently patient not answering questions, skin is warm dry and slightly jaundice, patient face jerking and patient grunting intermittently, chart up to be seen by er provider.
--- NOTE | 2024-05-26 10:32 | EKG_ITS ---
[facility] Test Date: 2024-05-26 Pat Name: SHANNON ORTIZ Department: Room: - Gender: Female Network Control Supervisor: : 1970 Requested By: Therese Akbar Order Number: [id number] Reading MD: Therese Akbar Measurements Intervals [place] Rate: 56 P: 7 AL: 144 QRS: 15 QRSD: 78 T: -4 QT: 449 QTc: 434 Interpretive Statements SINUS BRADYCARDIA WITH FREQUENT SUPRAVENTRICULAR PREMATURE COMPLEXES IN A BIGEMINAL PATTERN LOW QRS VOLTAGE IN PRECORDIAL LEADS [QRS DEFLECTION < 1.0 mV IN CHEST LEADS] SEPTAL MYOCARDIAL INFARCTION , OF INDETERMINATE AGE [40+ ms Q WAVE IN V1/V2] Compared to ECG 05/10/2024 14:23:06 Low QRS voltage now present Myocardial infarct finding now present /store/S0/[id number].pdf
--- NOTE | 2024-05-26 10:32 | XR_ITS ---
Exam: Chest 1 view, AP Date and time of exam: 05/26/2024, 11:15 AM Comparison: 05/10/2024 INDICATION: Chest pain Findings: Normal heart size. No mediastinal adenopathy. No acute fracture No pulmonary edema or pneumonia. Impression: No active disease.
--- NOTE | 2024-05-26 10:37 | XR_ITS ---
Examination: CT brain head without contrast. 2-D sagittal coronal reconstructions Date and time of exam:04/25/2024, 11:42 AM CTDI: vol (mGy):49.7 DLP: (mGycm):920 Indication: Mental status changes Technique: Multiple CT axial sections of the brain have been obtained, 5 mm slice thickness. Contrast has not been administered. 2-D sagittal, coronal reconstructions have been obtained Low dose protocols were performed. One or more of the following dose reduction techniques were used; automated exposure control, adjustment of the mA and/or KV according to patient size, use of iterative reconstruction technique. Findings: No significant ventricular enlargement. Intra-axial or extra-axial hemorrhage density is not seen. No mass effect or midline shift Basal cisterns are not remarkable. Fourth ventricle is midline. Cranial vault intact. Impression: Negative for acute hemorrhage, mass effect or midline shift
[2024-05-26 10:54] LABS: Base Excess 1 (-3-3); HCO3 25 mEq/L (20-26); Inspired Oxygen, FIO2 21 %; PCO2 35 mmHg (32.0-48.0); PO2 91 mmHg (83-108); pH, Arterial 7.46 (7.35-7.45)
[2024-05-26 10:55] LABS: Allen Test Not Performed; O2 Saturation 97 % (91-98); Puncture Site Left Radial
--- NOTE | 2024-05-26 10:56 | PD.EDAMS ---
Altered Mental Status RME/HPI General Chief Complaint: Altered Mental Status Stated Complaint: AMS Time Seen by Provider: 05/26/24 10:30 Arrival date/time: 05/26/24 10:27 RME / HPI RME / HPI narrative: 53 year old female with past medical history significant for end stage liver disease secondary alcohol use disorder, esophageal varices status post banding, multiple admissions for hepatic encephalopathy due to medications non-compliance presented to the ER BIBA for altered mental status. Per EMS, patient is bradycardic. Patient was presented to the ED at 0500 this morning and no further history is obtainable. Related Data Home Medications ?Medication ?Instructions ?Recorded ?Confirmed rifaximin 550 mg tablet (Xifaxan) 550 mg PO BID 01/12/24 05/11/24 ferrous sulfate 325 mg (65 mg 325 mg PO DAILY 01/22/24 05/11/24 iron) tablet ergocalciferol (vitamin D2) 1,250 1,250 mcg PO QWEEK 02/06/24 05/11/24 mcg (50,000 unit) capsule (Vitamin D2) methocarbamol 750 mg tablet 750 mg PO BID 02/06/24 05/11/24 oxycodone 5 mg tablet 5 mg PO Q12H PRN Pain 03/15/24 05/11/24 metformin 500 mg tablet 500 mg PO BID 05/11/24 05/11/24 midodrine 5 mg tablet 5 mg PO TID 05/11/24 05/11/24 multivitamin 1 tab PO QDAY 05/11/24 05/11/24 mirtazapine 15 mg tablet 15 mg PO HS 05/12/24 05/12/24 propranolol 40 mg tablet 40 mg PO QDAY 05/12/24 05/12/24 Previous Rx's ?Medication ?Instructions ?Recorded pantoprazole 40 mg tablet,delayed 40 mg PO QDAY #30 tabs 10/15/23 release lactulose 20 gram/30 mL oral 30 g (45 mL) PO TID 30 days #4,050 01/31/24 solution mL cholestyramine (with sugar) 4 gram 4 g PO BID #60 ea 03/17/24 powder for susp in a packet multivitamin with folic acid 400 1 tab PO QAM #30 tabs 04/10/24 mcg tablet (Daily-Dena (with folic acid)) furosemide 20 mg tablet (Lasix) 20 mg PO QDAY #90 tabs 04/16/24 Allergies Allergy/AdvReac Type Severity Reaction Status Date / Time latex Allergy Severe Hives Verified 04/13/24 09:15 Review of Systems Review of Systems ROS Unobtainable: unobtainable due to mental status Past Medical History Past Medical History NEUROLOGIC: Positive Neurological Disorders, Migraine and Spinal Cord Injury CARDIAC: Positive Hypotension GASTROINTESTINAL: Positive Gastrointestinal Disorders, Cirrhosis (END STAGE LIVER DISEASE), Gastrointestinal Bleed, Esophageal Varices and Hemorrhoids REPRODUCTIVE: Positive Endometriosis MUSCULOSKELETAL: Positive Musculoskeletal Disorders ENDOCRINE: Positive Endocrine Disorders, Diabetes Mellitus Type 1 and Diabetes Mellitus Type 2 HEMATOLOGIC: Positive Blood Disorders and Anemia PSYCHO/SOCIAL: Positive Depression and Anxiety OTHER HISTORY: Positive Blood Transfusions Family History FAMILY HISTORY: Positive Family Psychiatric Problems and Family Cancer; Negative Family Respiratory Disorders, Family Cardiac Disorders, Family Gastrointestinal Problems, Family Surgery or Family Anesthesia Reaction Surgical History SURGICAL: Positive Section Social History SMOKING STATUS: Unknown if ever smoked SECOND HAND EXPOSURE: No SUBSTANCE USE: marijuana ED Exam Narrative Physical exam: GENERAL APPEARANCE: drowsy but arousable, well-nourished, no acute distress HEENT: Normocephalic, atraumatic; pupils equal, round, reactive to light, scleral icterus; EOMI; mucous membranes pink, moist; oropharynx clear NECK: Supple LUNGS: CTABL; no wheezes, no rales, no rhonchi HEART: Regular rate, regular rhythm; normal S1, S2; no murmurs ABDOMEN: distended; normal BS; soft, no tenderness, no guarding, no rebound; no masses, no organomegaly, no hernia BACK: no CVA tenderness EXTREMITIES: atraumatic; no edema NEUROLOGIC: drowsy but arousable; cranial nerves II-XII grossly intact; no focal sensory or motor deficits PSYCHIATRIC: appropriate mood and affect SKIN: warm, dry, jaundice; no rashes Course Quality Measures none Orders Category Date Time Status Car Wash Supervisor NOW Care 05/26/24 10:32 Completed Car Wash Supervisor Q1HR Care 05/26/24 10:40 Active EKG (ED ONLY) *Do not use* NOW Care 05/26/24 10:32 Completed In and Out Catheter X1 Care 05/26/24 10:[address] head/brain wo con Stat Exams 05/26/24 10:37 Completed EKG (ED Only) Stat Exams 05/26/24 10:32 Draft XR chest 1V portable Stat Exams 05/26/24 10:32 Completed ABG [Arterial Blood Gas] Stat Lab 05/26/24 10:46 Completed Alcohol, Blood Medical Stat Lab 05/26/24 10:45 Completed Ammonia Stat Lab 05/26/24 10:45 Completed B-Type Natriuretic Peptide Stat Lab 05/26/24 10:45 Completed CBC Stat Lab 05/26/24 10:45 Completed Comprehensive Metabolic Panel Stat Lab 05/26/24 10:45 Completed Drug Screen,Urine Stat Lab 05/26/24 10:59 Completed Lipase Stat Lab 05/26/24 10:45 Completed Magnesium Stat Lab 05/26/24 10:45 Completed Partial Thromboplastin Time Stat Lab 05/26/24 10:45 [address] Review Blood Smear Stat Lab 05/26/24 10:45 Completed Prothrombin Time with INR Stat Lab 05/26/24 10:45 Completed Troponin I Stat Lab 05/26/24 10:45 Completed UA, C/S IF [Urinalysis, C/S if Indicated] Stat Lab 05/26/24 10:58 Completed Calcium Gluconate 10% Inj Med 05/26/24 12:02 Discontinued 1 gm IV X1 ONE Lactulose Syrup [Enulose Syrup] Med 05/26/24 12:08 Discontinued 200 gm CO X1 ONE Sodium Chloride 0.9% 1000 ml [Ns] 1,000 ml Med 05/26/24 12:04 Discontinued IV 999 mls/hr Vital Signs Vital signs: Vital Signs Temperature 98.1 F 05/26/24 10:31 Pulse Rate 48 L 05/26/24 10:31 Respiratory Rate 16 05/26/24 10:31 Blood Pressure 92/52 L 05/26/24 10:31 Pulse Oximetry (%) 98 05/26/24 10:31 Oxygen Delivery Method Room Air 05/26/24 10:31 Altered Mental Status MDM Narrative MDM Narrative:: Shraddha Slade am scribing for and in the presence of Dr. Sanchez Patient data External records reviewed:: [facility] previous records and EMS form Clinical information provided by:: EMS Social determinants that could affect healthcare access:: mental health (altered mental status ) Patient has the following chronic illnesses:: altered mental status, end stage liver disease secondary alcohol use disorder, esophageal varices status post banding How is presenting disease/condition affected by chronic disease/condition?: exacerbated by Evaluation data The following diagnostics were reviewed and interpreted by me:: lab results, radiology exam(s) and EKG tracing(s) (EKG#1: EKG at 1131 hours.Interpreted by me: sinus bradycardia, rate 56, no acute ischemic changes) Lab and/or radiology exams considered but not ordered:: none Interpretation Summary: Ordering Physician: Therese Sanchez MD Date of Service: 05/26/24 Procedure(s): XR chest 1V portable Accession Number(s): [id number] cc: Gregorio Powers MD; Therese Sanchez MD~ Exam: Chest 1 view, AP Date and time of exam: 05/26/2024, 11:15 AM Comparison: 05/10/2024 INDICATION: Chest pain Findings: Normal heart size. No mediastinal adenopathy. No acute fracture No pulmonary edema or pneumonia. Impression: No active disease. Dictated By: Gregorio Powers MD Signed By: <Electronically signed by Gregorio Powers MD in OV> 05/26/24 1128 Ordering Physician: Therese Sanchez MD Date of Service: 05/26/24 Procedure(s): CT head/brain wo con Accession Number(s): [id number] cc: Gregorio Powers MD; Therese Sanchez MD~ Examination: CT brain head without contrast. 2-D sagittal coronal reconstructions Date and time of exam:04/25/2024, 11:42 AM CTDI: vol (mGy):49.7 DLP: (mGycm):920 Indication: Mental status changes Technique: Multiple CT axial sections of the brain have been obtained, 5 mm slice thickness. Contrast has not been administered. 2-D sagittal, coronal reconstructions have been obtained Low dose protocols were performed. One or more of the following dose reduction techniques were used; automated exposure control, adjustment of the mA and/or KV according to patient size, use of iterative reconstruction technique. Findings: No significant ventricular enlargement. Intra-axial or extra-axial hemorrhage density is not seen. No mass effect or midline shift Basal cisterns are not remarkable. Fourth ventricle is midline. Cranial vault intact. Impression: Negative for acute hemorrhage, mass effect or midline shift Dictated By: Gregorio Powers MD Signed By: <Electronically signed by Gregorio Powers MD in OV> 05/26/24 1223 Medications / Prescriptions Medications or Prescriptions considered but not ordered:: none Medication administrations:: Medication Administration History Albumin Human (Albuminar-25 Ivpb) 25 gm in 100 mls @ 100 mls/hr IV QDAY [facility] Stop: 05/29/24 12:44 Ceftriaxone Sodium/Dextrose (Rocephin/D5w 1gm Iv Premix) 1 gm in 50 mls @ 100 mls/hr IV QDAY@1400 [facility] Stop: 06/02/24 12:44 Lactulose (Lactulose Syrup 20 Gm/30 Ml Udc) 30 gm PO TID [facility]; Protocol Stop: 06/25/24 13:59 Ondansetron HCl (Ondansetron Inj 2 Mg/Ml Inj 2 Ml) 4 mg IV Q6H PRN; Protocol PRN Reason: NAUSEA OR VOMITING Stop: 06/25/24 12:24 Pantoprazole Sodium (Pantoprazole 40 Mg Tablet) 40 mg PO QDAY [facility] Stop: 06/26/24 08:59 Rifaximin (Rifaximin 550 Mg Tablet) 550 mg PO BID [facility] Stop: 06/02/24 12:29 Discontinued Medications Calcium Gluconate (Calcium Gluconate 10% Inj 1 Gm/10 Ml Vial) 1 gm IV X1 ONE Stop: 05/26/24 12:03 Last Admin: 05/26/24 12:27 Dose: 1 gm Documented By: KM Comments: VIA 20G LEFT F/A OVER 3 MIN. Dextrose (Dextrose 50%-Water Inj 50 Ml Syringe) 50 ml IV X1 ONE Stop: 05/26/24 12:31 Sodium Chloride (Ns) 1,000 mls @ 999 mls/hr IV .Q1H1M ONE Stop: 05/26/24 13:04 Last Admin: 05/26/24 12:26 Dose: 999 mls/hr Documented By: GILBERT Insulin Human Regular (Insulin Hum Regular 1 Unit/0.01 Ml (Per Unit)) 10 unit IV X1 ONE Stop: 05/26/24 12:31 Lactulose (Lactulose Syrup 10 Gm/15 Ml) 200 gm CO X1 ONE; Protocol Stop: 05/26/24 12:09 Lactulose (Lactulose Syrup 20 Gm/30 Ml Udc) 20 gm PO TID [facility]; Protocol Stop: 06/25/24 13:59 Sodium Polystyrene Sulfonate (Sod Polystyrene Sulfon Susp 15 Gm/60 Ml Btl) 30 gm PO X1 ONE Stop: 05/26/24 12:31 see above Consultations Consultation(s) initiated? (list below): Yes Consultation #1 (Physician, Specialty, Details): 1204: Resident Dr. Vines made aware of the patient?s HPI, PMHx, lab and/or radiology results. Treatment plan was discussed. Will admit for further evaluation and management. Accepts patient for admission. Diagnosis Differential diagnosis altered mental status: altered mental status, delirium and other (LILY) Most likely diagnosis given after review of the tests above:: LILY (actute kidney injury) Acute hepatic encephalopathy Altered mental status Admission Indicated Admission indicated?: indicated Admission Request Was there a request for admission?: Yes Admission Attestation Admission request attestation: Discussed case with [] from Hospitalist service regarding admission. Discussed patients ED course, exam findings, labs, and radiology results. The Hospitalist [agrees,declines] to accept the patient for admission. Disposition Plan Disposition Plan: Admit Discharge Plan Plan Patient Disposition: Admit Acute Care w/in Hospital Problem List Clinical Impression: LILY (acute kidney injury), Acute hepatic encephalopathy, Altered mental status
[2024-05-26 11:03] LABS: Basophils % (Auto) 1 % (0-2.5); Eosinophils # (Auto) 0.2 Thou/mm3 (0.0-0.5); Eosinophils % (Auto) 4 % (0-10); Hematocrit 27.6 % (36.0-46.0); Hemoglobin 9.2 g/dL (12.0-16.0); Immature Granulocytes % (Auto) 0 % (0-0); Immature Granulocytes Auto 0.01 Thou/mm3 (0.00-0.00); Lymphocytes # (Auto) 1.4 Thou/mm3 (1.0-4.8); Lymphocytes % (Auto) 30 % (10-50); Mean Corpuscular HGB Conc 33.3 g/dl (31.0-37.0); Mean Corpuscular Hemoglobin 35.4 pg (25.0-35.0); Mean Corpuscular Volume 106 fL (80-100); Monocytes # (Auto) 0.3 Thou/mm3 (0.0-0.8); Monocytes % (Auto) 6 % (0-12); Neutrophils # (Auto) 2.9 Thou/mm3 (1.8-7.7); Neutrophils % (Auto) 60 % (37-80); Nucleated Red Blood Cell % 0 /100 WBC (0); RDW Standard Deviation 65.7 fL (36.4-46.3); White Blood Count 4.8 Thou/mm3 (3.6-11.0)
[2024-05-26 11:08] LABS: Platelet Count 45 Thou/mm3 (140-440)
[2024-05-26 11:22] LABS: INR 1.9 (0.9-1.3); Partial Thromboplastin Time 38.7 Seconds (22.0-36.0); Prothrombin Time 19.7 Seconds (9.0-12.2)
[2024-05-26 11:32] LABS: B-Type Natriuretic Peptide 410 pg/mL (0-100)
[2024-05-26 11:36] LABS: Alanine Aminotransferase 15 U/L (10-49); Albumin, Serum 2.8 gm/dL (3.5-5.0); Albumin/Globulin Ratio 0.8 (1.2-2.2); Alcohol, Blood Medical < 3.0 mg/dL (0-10.0); Alkaline Phosphatase 98 U/L (46-116); Anion Gap 8 (7-16); Aspartate Amino Transferase 36 U/L (0-34); BUN/Creatinine Ratio 16 Ratio (12-20); Blood Urea Nitrogen 32 mg/dL (9-23); Calcium 9.1 mg/dL (8.3-10.6); Calcium (Corrected) 10.1 mg/dL (8.5-10.1); Chloride 109 mMol/L (98-107); Estimated Creatinine Clearance 31.8 mL/min (>60); Globulin 3.7 gm/dL (2.3-3.5); Glucose 122 mg/dL (74-106); Lipase 26 U/L (12-53); Magnesium 2.1 mg/dL (1.6-2.6); Osmolality,Calculated 292 (275-295); Potassium 5.6 mMol/L (3.4-5.1); Sodium 143 mMol/L (136-145); Total Protein 6.5 gm/dL (5.7-8.2); Troponin I < 0.020 ng/mL (0.0-0.045); eGFR 30 See Note
[2024-05-26 11:39] LABS: Collection Type, Urine Catheter
[2024-05-26 11:40] LABS: Ammonia 182 uMol/L (11-32)
[2024-05-26 11:59] LABS: Bacteria,Urine Rare; Bilirubin,Urine Negative (Negative); Blood,Urine Negative (Negative); Clarity,Urine Clear (Clear/Hazy); Color,Urine Yellow (Lt Yel-Yel); Culture Indicated,Urine Not Indicated; Glucose, Urine Negative (Negative); Ketones,Urine Negative (Negative); Leukocyte Esterase,Urine Positive (Negative); Nitrite,Urine Negative (Negative); Protein,Urine Negative (Neg - Trace); RBC,Urine 1 /hpf (0-3); Specific Gravity,Urine 1.019 (1.001-1.035); Squamous Epithelial Cell,Urine < 1 /hpf (0-5); Urobilinogen,Urine Negative mg/dL (0.0-1.0); WBC,Urine 8 /hpf (0-5)
[2024-05-26 12:02] LABS: Amphetamine/Methamp Scrn,U Negative (Negative); Barbiturate Screen,Urine Negative (Negative); Benzodiazepines Screen,Urine Negative (Negative); Benzoylecgonine Screen, Ur Negative (Negative); Fentanyl Screen,Urine Negative (Negative); Opiate Screen,Urine Positive (Negative); THC Screen,Urine Negative (Negative)
[2024-05-26 12:04] LABS: Slide Review Platelets confirmed
[2024-05-26 12:06] LABS: Path Review Blood Smear Sent to Pathologist
[2024-05-26] MEDS: SODIUM CHLORIDE 0.9% 1000 ML 1,000 ML 999 ML IV (12:26)
[2024-05-26] MEDS: CALCIUM GLUCONATE 10% INJ 1 GM/10 ML VIAL IV (12:27)
--- NOTE | 2024-05-26 12:31 | PC.NURSE ---
Called pharmacy to bring lactulose to er, not in our er pyxis,
--- NOTE | 2024-05-26 12:41 | PC.NURSE ---
Mother, amelia at bedside, states patient has not had covid in the last 90 days and no covid s/s and no recent exposure.
[2024-05-26] MEDS: INSULIN HUM REGULAR 1 UNIT/0.01 ML (PER UNIT) 10 UNIT IV (13:29)
[2024-05-26] MEDS: DEXTROSE 50%-WATER INJ 50 ML SYRINGE IV (13:29)
[2024-05-26] MEDS: ALBUMIN HUMAN 25% IVPB 25 GM/100 ML BTL IV (13:43)
[2024-05-26] MEDS: LACTULOSE SYRUP 10 GM/15 ML 200 GM PR (13:53)
[2024-05-26] MEDS: cefTRIAXone/D5w 1gm IV premix 1 GM/50 ML BAG IV (14:47)
[2024-05-26 15:25] LABS: Albumin, Serum 3.1 gm/dL (3.5-5.0); Anion Gap 9 (7-16); BUN/Creatinine Ratio 16 Ratio (12-20); Blood Urea Nitrogen 30 mg/dL (9-23); Calcium 9.1 mg/dL (8.3-10.6); Calcium (Corrected) 9.8 mg/dL (8.5-10.1); Carbon Dioxide 22.7 mMol/L (20.0-31.0); Chloride 113 mMol/L (98-107); Creatinine (Component) 1.9 mg/dL (0.6-1.3); Estimated Creatinine Clearance 33.4 mL/min (>60); Glucose 150 mg/dL (74-106); Osmolality,Calculated 297 (275-295); Phosphorous 4.6 mg/dL (2.4-5.1); Potassium 4.8 mMol/L (3.4-5.1); Sodium 145 mMol/L (136-145); eGFR 31 See Note
--- NOTE | 2024-05-26 16:59 | ESHP_ITS ---
<Statement entered by Geoff Hernandes MD - 06/01/24 12:55> I reviewed above note and agree with findings and plans. I have also personally examined the patient with medicine team and went over assessment and plan with medical team including internist and resident physician. Documentation for date of: 05/26/24 HPI History of Present Illness Chief complaint: AMS History of present illness: 53 y/o F with PMHx significant for cirrhosis, repeat episodes of hepatic encephalopathy who presented to ED from home with chief complaint of increased lethargy and confusion. Patient is poor historian, most of history taken from chart review and mother at bedside. Reportedly patient is on been having 1 bowel movement every day despite lactulose treatment. Patient extremely obtunded, A&O x 1 in the ED. Per family patient does not have any recent history fevers, chills, dysuria, abdominal pain, nausea, vomiting. ED COURSE: Labs significant for: WBC 4.8, hemoglobin 9.2, platelets 45, potassium 5.6, BUN 32, creatinine 2.0, EGFR 30, ammonia 182, albumin 2.8. Imaging significant for: Chest x-ray negative. Patient received 1 L bolus normal saline and 1 g calcium gluconate in the ED. Past medical history: End-stage liver disease, alcohol use disorder Allergies: No known drug allergies Medication: Midodrine 10 mg 3 times daily, lactulose, Lasix 40 mg daily, multivitamin Surgical history: Appendectomy, 2 , 2 laparoscopic procedures for endometriosis Social history: Denies any tobacco use, alcohol or illicit drug use Family history: Denies any pertinent family history denies any family history of liver or heart disease Review of Systems Review of Systems Systems Reviewed: All systems reviewed, normal except as documented Past Medical History Past Medical History Comments PMH COMMENT: Past medical history: End-stage liver disease, alcohol use disorder Allergies: No known drug allergies Medication: Midodrine 10 mg 3 times daily, lactulose, Lasix 40 mg daily, multivitamin Surgical history: Appendectomy, 2 , 2 laparoscopic procedures for endometriosis Social history: Denies any tobacco use, alcohol or illicit drug use Family history: Denies any pertinent family history denies any family history of liver or heart disease Exam Vital Signs Temp Pulse Resp BP Pulse Ox O2 Del Method 98.1 F 46 L 14 99/54 L 100 Room Air 05/26/24 16:10 05/26/24 16:10 05/26/24 16:10 05/26/24 16:10 05/26/24 16:10 05/26/24 16:10 Narrative Exam PE: Gen: Well-developed and well-nourished. Obtunded. HEENT: NCAT, PERRLA, EOMI, MMM, anicteric conjunctivae. CVS: normal S1 and S2. RRR. No M/R/G. Resp: CTA B/L. No rhonchi, rales, crackles or wheezing. Abd: soft, non-tender. Distended, diffusely tender. MSK: Good ROM in BUE & BLE. No edema or rash. Neuro: CN II-XII grossly intact. Strength 5/5 in BUE & BLE. A&O x 1. Able to follow simple commands with repeated prompting. Results: Labs 05/26/24 10:45 05/26/24 14:50 Labs: Short CBC 05/26/24 Range/Units 10:45 WBC 4.8 (3.6-11.0) Thou/mm3 Hgb 9.2 L (12.0-16.0) g/dL Hct 27.6 L (36.0-46.0) % Plt Count 45 L (140-440) Thou/mm3 BMP 05/26/24 05/26/24 10:45 14:50 Sodium 143 145 Potassium 5.6 H 4.8 D Chloride 109 H 113 H Carbon Dioxide 26.0 22.7 BUN 32 H 30 H Creatinine 2.0 H 1.9 H Glucose 122 H 150 H Calcium 9.1 9.1 Cardiac Enzymes 05/26/24 Range/Units 10:45 Troponin I < 0.020 (0.0-0.045) ng/mL Liver Function 05/26/24 05/26/24 Range/Units 10:45 14:50 Total Bilirubin 6.0 H (0.3-1.2) mg/dL AST 36 H (0-34) U/L ALT 15 (10-49) U/L Alkaline Phosphatase 98 (46-116) U/L Albumin 2.8 L 3.1 L (3.5-5.0) gm/dL Urine 05/26/24 Range/Units 10:58 Urine Color Yellow (Lt Yel-Yel) Urine Clarity Clear (Clear/Hazy) Urine pH 6.0 (5.0-7.0) Ur Specific [place] 1.019 (1.001-1.035) Urine Protein Negative (Neg - Trace) Urine Glucose (UA) Negative (Negative) ABG Interpretation ABG results: 05/26/24 10:46 ABG pH 7.46 H ABG pCO2 35 ABG pO2 91 ABG HCO3 25 ABG O2 Saturation 97 ABG Base Excess 1 Quality Measures Quality Measures VTE prophylaxis Medications Home Medications and Allergies Home Medications ?Medication ?Instructions ?Recorded ?Confirmed ?Type rifaximin 550 mg tablet (Xifaxan) 550 mg PO BID 05/11/24 History ferrous sulfate 325 mg (65 mg 325 mg PO DAILY 01/22/24 05/11/24 History iron) tablet ergocalciferol (vitamin D2) 1,250 1,250 mcg PO QWEEK 1 04/08/23 05/11/24 History mcg (50,000 unit) capsule (Vitamin D2) methocarbamol 750 mg tablet 750 mg PO BID 02/06/24 History oxycodone 5 mg tablet 5 mg PO Q12H PRN Pain 05/11/24 History metformin 500 mg tablet 500 mg PO BID 05/11/2405/11 History midodrine 5 mg tablet 5 mg PO TID 05/11/24 5 History multivitamin 1 tab PO QDAY 05/11/2405/11 History mirtazapine 15 mg tablet 15 mg PO HS 05/12/24 5 History propranolol 40 mg tablet 40 mg PO QDAY 05/12/2405/12 History Allergies Allergy/AdvReac Type Severity Reaction Status Date / Time latex Allergy Severe Hives Verified 04/13/24 09:15 Visit Medications Albumin Human (Albuminar-25 Ivpb) 25 gm in 100 mls @ 100 mls/hr IV QDAY [facility] Stop: 05/29/24 12:44 Last Infusion: 05/26/24 14:44 Dose: Infused Ceftriaxone Sodium/Dextrose (Rocephin/D5w 1gm Iv Premix) 1 gm in 50 mls @ 100 mls/hr IV QDAY@1400 [facility] Stop: 06/02/24 12:44 Last Infusion: 05/26/24 15:33 Dose: Infused Lactulose (Lactulose Syrup 10 Gm/15 Ml) 200 gm MI TID [facility]; Protocol Stop: 06/25/24 21:59 Ondansetron HCl (Ondansetron Inj 2 Mg/Ml Inj 2 Ml) 4 mg IV Q6H PRN; Protocol PRN Reason: NAUSEA OR VOMITING Stop: 06/25/24 12:24 Pantoprazole Sodium (Pantoprazole Inj 40 Mg Vial) 40 mg IV QDAY [facility] Stop: 06/26/24 08:59 Rifaximin (Rifaximin 550 Mg Tablet) 550 mg PO BID [facility] Stop: 06/02/24 12:29 Last Admin: 05/26/24 13:36 Dose: Not Given Discontinued Medications Calcium Gluconate (Calcium Gluconate 10% Inj 1 Gm/10 Ml Vial) 1 gm IV X1 ONE Stop: 05/26/24 12:03 Last Admin: 05/26/24 12:27 Dose: 1 gm Dextrose (Dextrose 50%-Water Inj 50 Ml Syringe) 50 ml IV X1 ONE Stop: 05/26/24 12:31 Last Admin: 05/26/24 13:29 Dose: 50 ml Sodium Chloride (Ns) 1,000 mls @ 999 mls/hr IV .Q1H1M ONE Stop: 05/26/24 13:04 Last Infusion: 05/26/24 13:30 Dose: Infused Insulin Human Regular (Insulin Hum Regular 1 Unit/0.01 Ml (Per Unit)) 10 unit IV X1 ONE Stop: 05/26/24 12:31 Last Admin: 05/26/24 13:29 Dose: 10 unit Lactulose (Lactulose Syrup 10 Gm/15 Ml) 200 gm MI X1 ONE; Protocol Stop: 05/26/24 12:09 Last Admin: 05/26/24 13:53 Dose: 200 gm Lactulose (Lactulose Syrup 20 Gm/30 Ml Udc) 20 gm PO TID [facility]; Protocol Stop: 06/25/24 13:59 Lactulose (Lactulose Syrup 20 Gm/30 Ml Udc) 30 gm PO TID [facility]; Protocol Stop: 06/25/24 13:59 Last Admin: 05/26/24 14:44 Dose: Not Given Lactulose (Lactulose Syrup 20 Gm/30 Ml Udc) 200 gm MI TID [facility]EL[facility]; Protocol Stop: 06/25/24 21:59 Pantoprazole Sodium (Pantoprazole 40 Mg Tablet) 40 mg PO QDAY [facility] Stop: 06/26/24 08:59 Sodium Polystyrene Sulfonate (Sod Polystyrene Sulfon Susp 15 Gm/60 Ml Btl) 30 gm PO X1 ONE Stop: 05/26/24 12:31 Last Admin: 05/26/24 13:36 Dose: Not Given Assessment & Plan Plan 53 y/o F with PMHx significant for cirrhosis, repeat episodes of hepatic encephalopathy who presented to ED from home with chief complaint of increased lethargy and confusion, admitted for hepatic encephalopathy. #Hepatic encephalopathy #Decompensated liver failure #ESLD Patient is history of end-stage liver disease and recurrent hepatic encephalopathy, possibly due to noncompliance with medications. Patient reportedly has been having 1 bowel movement daily. Patient obtunded on presentation. Patient failed bedside swallow screen. Patient showing signs of end-stage liver disease, thrombocytopenia, elevated INR, decreased albumin. - Lactulose 200 g MI 3 times daily - Rifaximin 550 mg p.o. twice daily - Avoid hepatically metabolized medication - Albumin 25 g daily #LILY with hyperkalemia Patient presented with notable LILY, possibly due to decreased intravascular volume. Patient also has hyperkalemia, 5.6. BUN 32, creatinine 2.0, EGFR 30. Patient received 1 L bolus and 1 g calcium gluconate in the ED. Patient given pending testing with an amp of D50, 1 dose Kayexalate. Repeat labs showed potassium down to 4.8. - Telemonitoring - Daily labs - Avoid nephrotoxins - Renally dose medications #Bradycardia, chronic Patient bradycardic in the ED, heart rate 47?50. Patient has history of bradycardia, previous admissions frequently showing heart rate this low. EKG unremarkable. -Med/tele -Midodrine 10 mg p.o. 3 times daily DVT prophylaxis: SCDs GI prophylaxis: Protonix Diet: N.p.o. Lines: Peripheral IV Code status: Full code Plan of care discussed with attending Dr. Hernandes. Rene Cui MD PGY?1
[2024-05-26] MEDS: LACTULOSE SYRUP 20 GM/30 ML UDC 200 GM PR (22:36)
--- NOTE | 2024-05-26 22:52 | PC.NURSE ---
PT WITH C/O OF LOWER BACK PAIN /. BP OF 98/55 RELAYED. FAILED SWALLOW EVAL. MD STATES OK TO GIVE X1 OK TYLENOL.
[2024-05-26] MEDS: ACETAMINOPHEN SUPP 650 MG SUPP 325 MG PR (23:23)
[2024-05-27] VITALS (18 sets, daily range): BP systolic 79–122; BP diastolic 44–62; PULSE 50–70; RESP 12–20; TEMP 36.1–37.2; O2SAT 94–98; BMI 27.8
[2024-05-27] MEDS: LACTULOSE SYRUP 20 GM/30 ML UDC PO ×3 (05:52→21:26)
[2024-05-27 05:58] LABS: Basophils % (Auto) 1 % (0-2.5); Eosinophils # (Auto) 0.1 Thou/mm3 (0.0-0.5); Eosinophils % (Auto) 3 % (0-10); Hematocrit 24.2 % (36.0-46.0); Immature Granulocytes % (Auto) 0 % (0-0); Immature Granulocytes Auto 0.01 Thou/mm3 (0.00-0.00); Lymphocytes # (Auto) 1.2 Thou/mm3 (1.0-4.8); Lymphocytes % (Auto) 31 % (10-50); Mean Corpuscular HGB Conc 32.2 g/dl (31.0-37.0); Mean Corpuscular Hemoglobin 35.6 pg (25.0-35.0); Mean Corpuscular Volume 111 fL (80-100); Monocytes # (Auto) 0.4 Thou/mm3 (0.0-0.8); Monocytes % (Auto) 9 % (0-12); Neutrophils # (Auto) 2.2 Thou/mm3 (1.8-7.7); Neutrophils % (Auto) 57 % (37-80); Nucleated Red Blood Cell % 0 /100 WBC (0); Red Blood Count 2.19 Miln/mm3 (4.00-5.20); White Blood Count 3.9 Thou/mm3 (3.6-11.0)
[2024-05-27 06:05] LABS: Hemoglobin 7.8 g/dL (12.0-16.0)
[2024-05-27 06:26] LABS: Alanine Aminotransferase 12 U/L (10-49); Albumin, Serum 2.6 gm/dL (3.5-5.0); Albumin/Globulin Ratio 0.8 (1.2-2.2); Alkaline Phosphatase 69 U/L (46-116); Anion Gap 12 (7-16); Aspartate Amino Transferase 31 U/L (0-34); BUN/Creatinine Ratio 16 Ratio (12-20); Bilirubin,Total 6.2 mg/dL (0.3-1.2); Blood Urea Nitrogen 26 mg/dL (9-23); Calcium 8.7 mg/dL (8.3-10.6); Calcium (Corrected) 9.8 mg/dL (8.5-10.1); Carbon Dioxide 18.4 mMol/L (20.0-31.0); Chloride 113 mMol/L (98-107); Creatinine (Component) 1.6 mg/dL (0.6-1.3); Estimated Creatinine Clearance 37.5 mL/min (>60); Globulin 3.2 gm/dL (2.3-3.5); Glucose 320 mg/dL (74-106); Magnesium 1.7 mg/dL (1.6-2.6); Osmolality,Calculated 301 (275-295); Phosphorous 4.2 mg/dL (2.4-5.1); Potassium 4.5 mMol/L (3.4-5.1); Sodium 143 mMol/L (136-145); Total Protein 5.8 gm/dL (5.7-8.2); eGFR 39 See Note
[2024-05-27 06:59] LABS: Platelet Count 33 Thou/mm3 (140-440)
[2024-05-27 07:00] LABS: Slide Review Platelets confirmed
[2024-05-27] MEDS: INSULIN LISPRO (AdmeLOG) 1 UNIT/0.01 ML UNIT SC (07:30)
[2024-05-27] MEDS: ALBUMIN HUMAN 25% IVPB 25 GM/100 ML BTL IV ×4 (09:36→13:32)
[2024-05-27] MEDS: rifaximin 550 MG TABLET PO ×2 (09:37→21:26)
[2024-05-27] MEDS: PANTOPRAZOLE INJ 40 MG VIAL IV (09:38)
[2024-05-27] MEDS: MIDODRINE 5 MG TABLET PO (09:40)
[2024-05-27 10:04] LABS: Lactate (Lactic Acid) 3.9 mMol/L (0.4-2.0)
[2024-05-27] MEDS: MIDODRINE 5 MG TABLET 10 MG PO ×3 (10:21→21:26)
[2024-05-27] MEDS: LIDOCAINE 5% 1 PATCH TOP (10:23)
[2024-05-27] MEDS: SODIUM CHLORIDE 0.9% 250 ML 250 ML 999 ML IV (10:54)
[2024-05-27] MEDS: ACETAMINOPHEN 325 MG TABLET 650 MG PO ×2 (11:28→16:58)
[2024-05-27 12:05] LABS: Base Excess -1 (-3-3); HCO3 24 mEq/L (20-26); Inspired Oxygen, FIO2 21 %; O2 Saturation 97 % (91-98); PCO2 40 mmHg (32.0-48.0); pH, Arterial 7.39 (7.35-7.45)
[2024-05-27 12:06] LABS: Allen Test Not Performed; Puncture Site Left Radial
[2024-05-27 12:07] LABS: PO2 33 mmHg (83-108)
[2024-05-27 12:11] LABS: Lactate (Lactic Acid) 2.2 mMol/L (0.4-2.0)
[2024-05-27 12:18] LABS: Reflex Lactate? N
[2024-05-27] MEDS: NITROFURANTOIN MACRO 100 MG CAPSULE PO ×2 (12:28→21:26)
[2024-05-27 13:01] LABS: Reflex Lactate? Y
[2024-05-27] MEDS: RINGERS LACTATED 500 ML 500 ML IV ×2 (13:27→17:00)
--- NOTE | 2024-05-27 13:35 | EKG_ITS ---
[facility] Test Date: 2024-05-27 Pat Name: SHANNON ORTIZ Department: Room: 74A Gender: Female Chief Environmental Commitment Officer: MIRYAM : 1970 Requested By: Marielos Stephens Order Number: [id number] Reading MD: Marielos Stephens Measurements Intervals [place] Rate: 59 P: 20 IN: 114 QRS: 27 QRSD: 81 T: -20 QT: 412 QTc: 411 Interpretive Statements SINUS BRADYCARDIA WITH SHORT IN INTERVAL LOW QRS VOLTAGE IN PRECORDIAL LEADS POSSIBLE INFERIOR MYOCARDIAL INFARCTION , OF INDETERMINATE AGE Compared to ECG 05/26/2024 11:31:39 Short IN interval now present Myocardial infarct finding still present /store/S0/[id number]
--- NOTE | 2024-05-27 14:36 | PD.RESCONSUL ---
HPI Data of Consult Requesting Physician: Geoff Hernandes MD Admitting Provider: Geoff Hernandes MD Attending Provider: Geoff Hernandes MD Primary Care Provider: OPAL Salgado Consult Narrative Reason for consult: hypotension History of present illness: 53-year-old female with past medical history of cirrhosis secondary to alcohol use, esophageal varices, and frequent hospitalizations due to hepatic encephalopathy was admitted to the medical floors on 05/26/2024 due to hepatic encephalopathy, LILY, and bradycardia. ICU was consulted due to patient having episodes of hypotension with multiple rapid response due to these episodes. On assessment patient stated that she did not feel dizzy, had no chest pain, or had a headaches. She did mention that her vision was a little bit blurry, but otherwise no other complaints. Patient's mother who was at bedside stated that patient yesterday became lethargic and difficult to arouse therefore she decided to take patient back to the ER. Patient stated that she has been feeling nauseated prior to coming into the hospital and that she also feels some shortness of breath on the morning that she came into the hospital as well. She also mentioned that she had multiple vomiting episodes without any blood visualized in the [place]. Patient has been taking all her medications as of recently included midodrine, Lasix, spironolactone, and lactulose. She also mentioned that she has abstained from alcohol use for around 1 year now. On chart review patient had only gotten 1.25 L of fluids with 100 g of albumin. Patient did not seem fluid overloaded as she had clear breath sounds and there was no peripheral edema and there was no visible severe abdominal distention. PMH: As above Surgical Hx: Appendectomy and Allergies: Latex Medications: Lasix, midodrine, lactulose cc:: cc: Geoff Hernandes MD Review of Systems Review of Systems Narrative Review of Systems: Constitutional: Denies sweats, Denies weight loss/gain, Denies fever, Denies chills. HEENT: Denies hearing loss, Denies ear pain, Denies postnasal drip, Denies double vision, Admits blurry vision. Respiratory: Admits shortness of breath, Denies cough, Denies wheezing. Cardiovascular: Denies chest pain, Denies palpitations, Denies sudden loss of consciousness. GI: Denies blood in stool, Denies constipation, Admits abdominal pain, Denies difficulty swallowing, Admits nausea/vomit. : Denies urinary incontinence, Admits pain while urinating, Denies increased urinary frequency. MSK: Denies joint pain, Denies joint swelling, Denies numbness. Skin: Denies rash, Denies itching, Denies easy bruising. Neuro: Denies headaches, Denies dizziness, Denies seizures. Past Medical History Past Medical History Comments PMH COMMENT: Past medical history: End-stage liver disease, alcohol use disorder Allergies: No known drug allergies Medication: Midodrine 10 mg 3 times daily, lactulose, Lasix 40 mg daily, multivitamin Surgical history: Appendectomy, 2 , 2 laparoscopic procedures for endometriosis Social history: Denies any tobacco use, alcohol or illicit drug use Family history: Denies any pertinent family history denies any family history of liver or heart disease Exam Vital Signs Temp Pulse Resp BP Pulse Ox O2 Del Method 97.6 F 66 18 86/49 L 98 Room Air 05/27/24 12:00 05/27/24 12:00 05/27/24 12:00 05/27/24 12:00 05/27/24 12:05/27/24 12:00 Narrative Exam General: A/O x3, mild discomfort due to pain Eyes: PERRL, EOMI. Icteric, vision grossly intact. Ears: No ear pain, no ear discharge, Hearing grossly intact. Nose: No nasal discharge. Mouth/Throat: Moist mucous membranes, no redness, no lesions. Neck: Neck supple, non-tender, no cervical lymphadenopathy. Lungs: Clear LUIS ENRIQUE to auscultation and percussion, No accessory muscle use. Cardio: Normal S1/S2, regular rhythm, systolic murmur appreciated, no JVD Abdomen: Soft, but distended, mildly generalized tenderness, no palpable masses, peristalsis present, no guarding or rebound. Extremities: Symmetrical, no significant deformities, no peripheral edema , non-tender, peripheral pulses presents. Skin: No rashes, no lesions, warm to touch. Neuro: No focal neurological deficits. motor and sensory intact. Psych: Cooperative, appropriate mood and effect. Results Labs 05/28/24 04:34 05/28/24 04:34 Labs: Short CBC 05/27/24 Range/Units 04:47 WBC 3.9 (3.6-11.0) Thou/mm3 Hgb 7.8 L (12.0-16.0) g/dL Hct 24.2 L (36.0-46.0) % Plt Count 33 L D (140-440) Thou/mm3 BMP 05/26/24 05/27/24 14:50 04:47 Sodium 145 143 Potassium 4.8 D 4.5 Chloride 113 H 113 H Carbon Dioxide 22.7 18.4 L BUN 30 H 26 H Creatinine 1.9 H 1.6 H Glucose 150 H 320 H D Calcium 9.1 8.7 Liver Function 05/26/24 05/27/24 Range/Units 14:50 04:47 Total Bilirubin 6.2 H (0.3-1.2) mg/dL AST 31 (0-34) U/L ALT 12 (10-49) U/L Alkaline Phosphatase 69 D (46-116) U/L Albumin 3.1 L 2.6 L D (3.5-5.0) gm/dL ABG Interpretation ABG results: 05/26/24 05/27/24 10:46 11:56 ABG pH 7.46 H 7.39 ABG pCO2 35 40 ABG pO2 91 33 L* D ABG HCO3 25 24 ABG O2 Saturation 97 97 ABG Base Excess 1 -1 Quality Measures Quality Measures VTE prophylaxis Medications Home Medications and Allergies Home Medications ?Medication ?Instructions ?Recorded ?Confirmed ?Type rifaximin 550 mg tablet (Xifaxan) 550 mg PO BID 01/12/24 05/26/24 History ergocalciferol (vitamin D2) 1,250 1,250 mcg PO QWEEK 02/06/24 05/26/24 History mcg (50,000 unit) capsule (Vitamin D2) methocarbamol 750 mg tablet 750 mg PO BID 02/06/24 05/26/24 History metformin 500 mg tablet 500 mg PO BID 05/11/24 05/26/24 History midodrine 5 mg tablet 5 mg PO TID 05/11/24 05/26/24 History multivitamin 1 tab PO QDAY 05/11/24 05/26/24 History mirtazapine 15 mg tablet 15 mg PO HS 05/12/24 05/26/24 History propranolol 40 mg tablet 40 mg PO QDAY 05/12/24 05/26/24 History hydrocodone 5 mg-acetaminophen 325 tab PO Q12H PRN pain 05/26/24 History mg tablet Allergies Allergy/AdvReac Type Severity Reaction Status Date / Time latex Allergy Severe Hives Verified 04/13/24 09:15 Visit Medications Acetaminophen (Acetaminophen 325 Mg Tablet) 650 mg PO Q4HR PRN PRN Reason: Pain 1-3 or Fever >100.3 Stop: 06/26/24 10:13 Last Admin: 05/27/24 11:28 Dose: 650 mg Dextrose (Dextrose 50%-Water Inj 50 Ml Syringe) 25 ml IV Q15MIN PRN PRN Reason: BG 50-70 responsive npo pt Stop: 06/26/24 06:46 Dextrose (Dextrose 50%-Water Inj 50 Ml Syringe) 50 ml IV Q15MIN PRN PRN Reason: BG <50 OR BG <70 & pt unresponsive Stop: 06/26/24 06:46 Glucagon (Glucagon Inj 1 Mg Vial) 1 mg IM Q15MIN PRN PRN Reason: BG <70, and no IV access Ceftriaxone Sodium/Dextrose (Rocephin/D5w 1gm Iv Premix) 1 gm in 50 mls @ 100 mls/hr IV QDAY@1400 CELINA Stop: 06/02/24 12:44 Last Infusion: 05/26/24 15:33 Dose: Infused Albumin Human (Albuminar-25 Ivpb) 25 gm in 100 mls @ 100 mls/hr IV QDAY CELINA Stop: 05/30/24 09:59 Last Admin: 05/27/24 13:32 Dose: 100 mls/hr Lactated Ringer's (Lactated Ringers) 500 mls @ 500 mls/hr IV .Q1H ONE Stop: 05/27/24 14:40 Insulin Human Lispro (Insulin Lispro (Admelog) 1 Unit/0.01 Ml Unit) 0 unit SC AC [facility]; Protocol Stop: 06/26/24 07:29 Last Admin: 05/27/24 12:29 Dose: Not Given Lactulose (Lactulose Syrup 20 Gm/30 Ml Udc) 20 gm PO TID [facility]; Protocol Stop: 06/26/24 05:59 Last Admin: 05/27/24 05:52 Dose: 20 gm Midodrine (Midodrine 5 Mg Tablet) 10 mg PO TID [facility] Stop: 06/26/24 10:14 Last Admin: 05/27/24 10:21 Dose: 5 mg Nitrofurantoin Macrocrystals (Nitrofurantoin Macro 100 Mg Capsule) 100 mg PO BID [facility] Stop: 06/03/24 11:44 Last Admin: 05/27/24 12:28 Dose: 100 mg Ondansetron HCl (Ondansetron Inj 2 Mg/Ml Inj 2 Ml) 4 mg IV Q6H PRN; Protocol PRN Reason: NAUSEA OR VOMITING Stop: 06/25/24 12:24 Pantoprazole Sodium (Pantoprazole Inj 40 Mg Vial) 40 mg IV QDAY [facility] Stop: 06/26/24 08:59 Last Admin: 05/27/24 09:38 Dose: 40 mg Rifaximin (Rifaximin 550 Mg Tablet) 550 mg PO BID [facility] Stop: 06/02/24 12:29 Last Admin: 05/27/24 09:37 Dose: 550 mg Discontinued Medications Acetaminophen (Acetaminophen Supp 650 Mg Supp) 650 mg PA X1 ONE Stop: 05/26/24 22:52 Last Admin: 05/26/24 22:59 Dose: Not Given Acetaminophen (Acetaminophen Supp 650 Mg Supp) 500 mg PA X1 ONE Stop: 05/26/24 22:52 Last Admin: 05/26/24 22:59 Dose: Not Given Acetaminophen (Acetaminophen Supp 650 Mg Supp) 325 mg PA Q6HR PRN PRN Reason: Pain 1-3 Stop: 06/25/24 22:54 Last Admin: 05/26/24 23:23 Dose: 325 mg Calcium Gluconate (Calcium Gluconate 10% Inj 1 Gm/10 Ml Vial) 1 gm IV X1 ONE Stop: 05/26/24 12:03 Last Admin: 05/26/24 12:27 Dose: 1 gm Dextrose (Dextrose 50%-Water Inj 50 Ml Syringe) 50 ml IV X1 ONE Stop: 05/26/24 12:31 Last Admin: 05/26/24 13:29 Dose: 50 ml Sodium Chloride (Ns) 1,000 mls @ 999 mls/hr IV .Q1H1M ONE Stop: 05/26/24 13:04 Last Infusion: 05/26/24 13:30 Dose: Infused Albumin Human (Albuminar-25 Ivpb) 25 gm in 100 mls @ 100 mls/hr IV QDAY [facility] Stop: 05/29/24 09:59 Last Admin: 05/27/24 09:36 Dose: 100 mls/hr Sodium Chloride (Ns) 250 mls @ 999 mls/hr IV .Q16M ONE Stop: 05/27/24 10:21 Last Admin: 05/27/24 10:54 Dose: 999 mls/hr Lactated Ringer's (Lactated Ringers) 500 mls @ 500 mls/hr IV .Q1H ONE Stop: 05/27/24 13:11 Last Admin: 05/27/24 13:27 Dose: 500 mls/hr Insulin Human Regular (Insulin Hum Regular 1 Unit/0.01 Ml (Per Unit)) 10 unit IV X1 ONE Stop: 05/26/24 12:31 Last Admin: 05/26/24 13:29 Dose: 10 unit Lactulose (Lactulose Syrup 10 Gm/15 Ml) 200 gm PA X1 ONE; Protocol Stop: 05/26/24 12:09 Last Admin: 05/26/24 13:53 Dose: 200 gm Lactulose (Lactulose Syrup 20 Gm/30 Ml Udc) 20 gm PO TID [facility]; Protocol Stop: 06/25/24 13:59 Lactulose (Lactulose Syrup 20 Gm/30 Ml Udc) 30 gm PO TID [facility]; Protocol Stop: 06/25/24 13:59 Last Admin: 05/26/24 14:44 Dose: Not Given Lactulose (Lactulose Syrup 20 Gm/30 Ml Udc) 200 gm PA TID [facility]; Protocol Stop: 06/25/24 21:59 Lactulose (Lactulose Syrup 10 Gm/15 Ml) 200 gm PA TID [facility]; Protocol Stop: 06/25/24 21:59 Last Admin: 05/26/24 22:30 Dose: Not Given Lactulose (Lactulose Syrup 20 Gm/30 Ml Udc) 200 gm PA TID [facility]; Protocol Stop: 06/26/24 05:59 Last Admin: 05/26/24 22:36 Dose: 200 gm Lidocaine (Lidocaine 5% 1 Patch) 1 patch TOP X1 ONE Stop: 05/27/24 10:07 Last Admin: 05/27/24 10:23 Dose: 1 patch Midodrine (Midodrine 5 Mg Tablet) 5 mg PO TID [facility] Stop: 06/26/24 09:14 Last Admin: 05/27/24 09:40 Dose: 5 mg Pantoprazole Sodium (Pantoprazole 40 Mg Tablet) 40 mg PO QDAY [facility] Stop: 06/26/24 08:59 Sodium Polystyrene Sulfonate (Sod Polystyrene Sulfon Susp 15 Gm/60 Ml Btl) 30 gm PO X1 ONE Stop: 05/26/24 12:31 Last Admin: 05/26/24 13:36 Dose: Not Given Assessment & Plan Plan 53-year-old female with past medical history of cirrhosis secondary to alcohol use, esophageal varices, and frequent hospitalizations due to hepatic encephalopathy. ICU consulted on 05/27/2024 due to hypotension. [employer]: #Hepatic encephalopathy Patient came in revealed ammonia levels of 182 and was encephalopathic Recommend to continue with lactulose CVS: #Hypotension Patient MAP has been hovering around the mid 60s with sometimes dropping below 65. Patient does seem that she could benefit from some fluid resuscitation Patient does not have any chest pain, dizziness, or headaches. Recommend to give 1 L IV fluids now and reassess blood pressure as patient could most likely benefit from more IV fluids #Bradycardia EKG showed bradycardia with a heart rate in the 56 with what seems to be some ectopic beats versus PACs Recommend to repeat EKG Respiratory: No active conditions Renal: #LILY, improving Patient came in with creatinine of 2 from her baseline of around 0.9 Creatinine today was 1.6 which did improve slightly Most likely prerenal Recommend IV fluids Recommend to avoid nephrotoxic agents and renally dose medications #Metabolic acidosis #Lactic acidosis Lactic acid was elevated at 3.9 and down trended to 2.2 Patient's bicarb 18.4 and anion gap 12 as of now, but if lactic acid continues to build up could become high anion gap metabolic acidosis Patient should be able to clear lactic acid with proper IV fluids resuscitation Recommend to repeat lactic acid and CMP GI: #Cirrhosis Patient has a history of cirrhosis secondary to alcohol use Recommend to continue Rocephin for SBP prophylaxis, lactulose, midodrine 10 mg 3 times daily, rifaximin : #UTI Patient's urinalysis was positive for bacteria Patient has a history of Vanco resistant Enterococcus faecium from most previous urine culture Recommend continue antibiotics according to sensitivity Heme: #Microcytic anemia Patient's hemoglobin 7.8 this morning No active signs of bleeding Recommend to get repeat H&H ID: #[id number] Recommend to continue antibiotics Thank you for allowing us to be part of the patient's care. ICU team. Hospital course: Diet: carb consistent low GI prophylaxis: protonix DVT prophylaxis: SCDs Code: full Dispo: ICU consulted for hypotension Case disclosed with Attending Dr. Mike Plata PGY1 Attending Provider Attestation/Addendum pt seen and examined with resident. In brief this is a 53yo F with a h/o ETOH cirrhosis admitted with hepatic encephalopathy. per family at bedside pt had some n/v at home prior to arrival. She is on diuretics at home and labs on arrival were consistent with some degree of dehydration. She has had [place] for hypotension and is also noted to be on midodrine at home. She received 250cc of IVF for her hypotension by the floor team along with 100g of albumin. on physical exam she does not have any peripheral edema or significant ascites. she is awake alert and oriented. At this point in time would recommend adequate volume resuscitation with a minimum of 1lt IVF. her current BP is soft however she is mentating and her nl BP runs low. would reassess after volume resuscitation. case d/w ICU team and recs relayed to floor team labs, imaging, records reviewed ~55min required for eval, exam, review, intervention, discussion and formulation of POC
--- NOTE | 2024-05-27 15:04 | ESPR_ITS ---
<Statement entered by Geoff Hernandes MD - 06/01/24 12:57> I reviewed above note and agree with findings and plans. I have also personally examined the patient with medicine team and went over assessment and plan with medical team including product marketing intern and resident physician. Documentation for date of: 05/27/24 Subjective Subjective Interval history: Labs and overnight events reviewed, mental status improved ANO x 3. 2 BM overnight, non bloody. Patient had 2 rapid responses this morning for hypotension, MAP repeatedly below 65, changed MAP goal to 60 and above as patient has cirrhosis, takes midodrine at home, increase midodrine to 10 3 times daily, gave IV fluid boluses, albumin IV 100 g ordered, repeat H&H and type and screen was ordered as patient had downtrending hemoglobin this a.m. ICU was consulted, oral health therapist recommended another fluid bolus, repeat CMP and H&H in the afternoon. EKG showed PACs, sinus bradycardia. Low voltage QRS complexes. Of note patient had VRE on urine culture during prior admission 2 weeks ago, sensitive to Macrobid, she was treated with fosfomycin x 1. Urinalysis this admission is concerning for UTI, will start patient on Macrobid. Exam Vital Signs Temp Pulse Resp BP Pulse Ox O2 Del Method 97.6 F 66 18 86/49 L 98 Room Air 05/27/24 12:00 05/27/24 12:00 05/27/24 12:00 05/27/24 12:00 05/27/24 12:05/27/24 12:00 Narrative Exam General: A/O x3, mild discomfort due to pain Eyes: PERRL, EOMI. Icteric, vision grossly intact. Ears: No ear pain, no ear discharge, Hearing grossly intact. Nose: No nasal discharge. Mouth/Throat: Moist mucous membranes, no redness, no lesions. Neck: Neck supple, non-tender, no cervical lymphadenopathy. Lungs: Clear LUIS ENRIQUE to auscultation and percussion, No accessory muscle use. Cardio: Normal S1/S2, regular rhythm, systolic murmur appreciated, no JVD Abdomen: Soft, but distended, mildly generalized tenderness, no palpable masses, peristalsis present, no guarding or rebound. Extremities: Symmetrical, no significant deformities, no peripheral edema , non-tender, peripheral pulses presents. Skin: No rashes, no lesions, warm to touch. Neuro: No focal neurological deficits. motor and sensory intact. Psych: Cooperative, appropriate mood and effect. Objective Labs 05/27/24 04:47 05/27/24 04:47 Labs: Laboratory Results - last 24 hr 05/26/24 05/27/24 05/27/24 14:50 04:47 09:55 WBC 3.9 RBC 2.19 L Hgb 7.8 L Hct 24.2 L MCV 111 H MCH 35.6 H MCHC 32.2 RDW Std Deviation 68.0 H Plt Count 33 L D Neut % (Auto) 57 Lymph % (Auto) 31 Castro % (Auto) 9 Eos % (Auto) 3 Baso % (Auto) 1 Neut # (Auto) 2.2 Lymph # (Auto) 1.2 Castro # (Auto) 0.4 Eos # (Auto) 0.1 Baso # (Auto) 0.0 Immature Gran # (Auto) 0.01 H Absolute Nucleated RBC 0.00 Immature Gran % 0 Nucleated RBC % 0 Puncture Site ABG pH ABG pCO2 ABG pO2 ABG HCO3 ABG O2 Saturation ABG Base Excess FiO2 Sodium 145 143 Potassium 4.8 D 4.5 Chloride 113 H 113 H Carbon Dioxide 22.7 18.4 L Anion Gap 9 12 BUN 30 H 26 H Creatinine 1.9 H 1.6 H Estim Creat Clear Calc 33.4 L 37.5 L eGFR 31 L 39 L BUN/Creatinine Ratio 16 16 Glucose 150 H 320 H D Calculated Osmolality 297 H 301 H Lactic Acid 3.9 H Calcium 9.1 8.7 Corrected Calcium 9.8 9.8 Phosphorus 4.6 4.2 Magnesium 1.7 Total Bilirubin 6.2 H AST 31 ALT 12 Alkaline Phosphatase 69 D Total Protein 5.8 Albumin 3.1 L 2.6 L D Globulin 3.2 Albumin/Globulin Ratio 0.8 L Misc Test Result Platelets confirmed 05/27/24 05/27/24 11:50 11:56 WBC RBC Hgb Hct MCV MCH MCHC RDW Std Deviation Plt Count Neut % (Auto) Lymph % (Auto) Castro % (Auto) Eos % (Auto) Baso % (Auto) Neut # (Auto) Lymph # (Auto) Castro # (Auto) Eos # (Auto) Baso # (Auto) Immature Gran # (Auto) Absolute Nucleated RBC Immature Gran % Nucleated RBC % Puncture Site Left Radial ABG pH 7.39 ABG pCO2 40 ABG pO2 33 L* D ABG HCO3 24 ABG O2 Saturation 97 ABG Base Excess -1 FiO2 21 Sodium Potassium Chloride Carbon Dioxide Anion Gap BUN Creatinine Estim Creat Clear Calc eGFR BUN/Creatinine Ratio Glucose Calculated Osmolality Lactic Acid 2.2 H Calcium Corrected Calcium Phosphorus Magnesium Total Bilirubin AST ALT Alkaline Phosphatase Total Protein Albumin Globulin Albumin/Globulin Ratio Misc Test Result ABG Interpretation ABG results: 05/26/24 05/27/24 10:46 11:56 ABG pH 7.46 H 7.39 ABG pCO2 35 40 ABG pO2 91 33 L* D ABG HCO3 25 24 ABG O2 Saturation 97 97 ABG Base Excess 1 -1 Quality Measures Quality Measures VTE prophylaxis Assessment & Plan Assessment Current Active Medications: Generic Name Dose Route Start Last Admin Trade Name Freq PRN Reason Stop Dose Admin Acetaminophen 650 mg 05/27/24 10:14 05/27/24 11:28 Acetaminophen 325 Mg Tablet PO 06/26/24 10:13 650 mg Q4HR PRN Administration Pain 1-3 or Fever >100.3 Dextrose 25 ml 05/27/24 06:47 Dextrose 50%-Water Inj 50 Ml Syringe IV 06/26/24 06:46 Q15MIN PRN BG 50-70 responsive npo pt Dextrose 50 ml 05/27/24 06:47 Dextrose 50%-Water Inj 50 Ml Syringe IV 06/26/24 06:46 Q15MIN PRN BG <50 OR BG <70 & pt unresponsive Glucagon 1 mg 05/27/24 06:47 Glucagon Inj 1 Mg Vial IM Q15MIN PRN BG <70, and no IV access Ceftriaxone Sodium/Dextrose 1 gm in 50 mls @ 100 mls/hr 05/26/24 12:45 05/26/24 15:33 Rocephin/D5w 1gm Iv Premix IV 06/02/24 12:44 Infused QDAY@1400 CELINA Infusion Albumin Human 25 gm in 100 mls @ 100 mls/hr 05/27/24 11:12 05/27/24 13:32 Albuminar-25 Ivpb IV 05/30/24 09:59 100 mls/hr QDAY [facility]ELINA Administration Insulin Human Lispro 0 unit 05/27/24 07:30 05/27/24 12:29 Insulin Lispro (Admelog) 1 Unit/0.01 Ml Unit SC 06/26/24 07:29 Not Given AC [facility] Protocol Lactulose 20 gm 05/27/24 06:00 05/27/24 05:52 Lactulose Syrup 20 Gm/30 Ml Udc PO 06/26/24 05:59 20 gm TID CELINA Administration Protocol Midodrine 10 mg 05/27/24 10:15 05/27/24 10:21 Midodrine 5 Mg Tablet PO 06/26/24 10:14 5 mg TID CELINA Administration Nitrofurantoin Macrocrystals 100 mg 05/27/24 11:45 05/27/24 12:28 Nitrofurantoin Macro 100 Mg Capsule PO 06/03/24 11:44 100 mg BID [facility]INA Administration Ondansetron HCl 4 mg 05/26/24 12:25 Ondansetron Inj 2 Mg/Ml Inj 2 Ml IV 06/25/24 12:24 Q6H PRN NAUSEA OR VOMITING Protocol Pantoprazole Sodium 40 mg 05/27/24 09:00 05/27/24 09:38 Pantoprazole Inj 40 Mg Vial IV 06/26/24 08:59 40 mg QDAY [facility] Administration Rifaximin 550 mg 05/26/24 12:30 05/27/24 09:37 Rifaximin 550 Mg Tablet PO 06/02/24 12:29 550 mg BID CEL[facility] Administration Plan 53 y/o F with PMHx significant for cirrhosis, repeat episodes of hepatic encephalopathy who presented to ED from home with chief complaint of increased lethargy and confusion, admitted for hepatic encephalopathy. #Hypotension - improving Patient had 2 rapid responses this morning for hypotension, MAP repeatedly below 65, changed MAP goal to 60 and above as patient has cirrhosis, takes midodrine at home, increase midodrine to 10 3 times daily, gave IV fluid boluses, albumin IV 100 g ordered, repeat H&H and type and screen was ordered as patient had downtrending hemoglobin this a.m. ICU was consulted, oral health therapist recommended another fluid bolus, repeat CMP and H&H in the afternoon. Patient was also noted to be acidotic on labs this morning, lactic acid noted to be elevated, IV fluid boluses given, repeat lactic acid down trended. EKG showed PACs, sinus bradycardia. Low voltage QRS complexes. No evidence of third spacing on physical exam, no peripheral edema or ascites noted. Hypotension likely secondary to hypovolemia. ? MAP goal 60 and above ? IV fluid boluses ? Increase midodrine 10 mg 3 times daily ? IV Albumin 100 g x1 #UTI Of note patient had VRE on urine culture during prior admission 2 weeks ago, sensitive to Macrobid, she was treated with fosfomycin x 1. Urinalysis this admission is concerning for UTI, will start patient on Macrobid. - Macrobid 100mg Bid #Hepatic encephalopathy- improving #Decompensated liver failure #ESLD Patient is history of end-stage liver disease and recurrent hepatic encephalopathy, possibly due to noncompliance with medications. Patient reportedly has been having 1 bowel movement daily. Patient obtunded on presentation. Patient failed bedside swallow screen. Patient showing signs of end-stage liver disease, thrombocytopenia, elevated INR, decreased albumin. - Lactulose 200 g OK 3 times daily - Rifaximin 550 mg p.o. twice daily - Avoid hepatically metabolized medication - Albumin 25 g daily #LILY with hyperkalemia Patient presented with notable LILY, possibly due to decreased intravascular volume. Patient also has hyperkalemia, 5.6. BUN 32, creatinine 2.0, EGFR 30. Patient received 1 L bolus and 1 g calcium gluconate in the ED. Patient given pending testing with an amp of D50, 1 dose Kayexalate. Repeat labs showed potassium down to 4.8. - Telemonitoring - Daily labs - Avoid nephrotoxins - Renally dose medications #Bradycardia, chronic Patient bradycardic in the ED, heart rate 47?50. Patient has history of bradycardia, previous admissions frequently showing heart rate this low. EKG unremarkable. -Med/tele -Midodrine 10 mg p.o. 3 times daily DVT prophylaxis: SCDs GI prophylaxis: Protonix Diet: Lines: Peripheral IV Code status: Full code Plan of care discussed with attending Dr. Hernandes. Kat PGy2
--- NOTE | 2024-05-27 15:27 | PD.RESEVENT ---
Documentation for date of: 05/27/24 Event Note Event Note: Patient had 2 rapid responses this morning for low blood pressure, during initial rapid MAP 61, patient is ANO x 3, reported no chest pain or shortness of breath, no dizziness reported. Given patient's history of cirrhosis, low blood pressure acceptable as long as no signs of clinical instability, MAP will change to 60 and above, increase midodrine from 5 mg to 10 mg 3 times daily, added albumin 100 mg infusion. Ordered bolus 250 cc NS. Repeat blood pressure showed MAP 64. Patient had another rapid response later MAP around 50, patient continued to be alert and oriented, no complaints of chest pain, shortness of breath or dizziness. Patient was placed in Trendelenburg position, ICU was consulted at this point, recommended giving more fluids as patient is not in volume overload at this point, no respiratory crackles, ascites or peripheral edema on physical exam. Patient did have repeat downtrending hemoglobin and acidemia on a.m. labs, lactic acid was ordered which was 3.9, repeat lactic acid downtrending 2.2, normal anion gap, ABG was ordered which showed normal pH, no acidosis normal SPO2 but PaO2 was low, likely erronous reading as patient saturating well on room air and in no acute respiratory distress at the moment. ? Repeat lactic acid, CMP and H&H in the afternoon. ? Type and cross ? IV fluid boluses ? EKG ? Started antibiotic Macrobid for possible VRE UTI. ? ICU consulted Plan of care discussed with attending Dr Greta Stephens [email or web address]
[2024-05-27] MEDS: cefTRIAXone/D5w 1gm IV premix 1 GM/50 ML BAG IV (16:58)
[2024-05-27 17:35] LABS: Hemoglobin 6.4 g/dL (12.0-16.0)
[2024-05-27 17:36] LABS: Hematocrit 18.9 % (36.0-46.0)
[2024-05-27 19:03] LABS: Alanine Aminotransferase 12 U/L (10-49); Albumin, Serum 3.6 gm/dL (3.5-5.0); Albumin/Globulin Ratio 1.3 (1.2-2.2); Alkaline Phosphatase 54 U/L (46-116); Anion Gap 10 (7-16); Aspartate Amino Transferase 25 U/L (0-34); BUN/Creatinine Ratio 14 Ratio (12-20); Bilirubin,Total 5.8 mg/dL (0.3-1.2); Blood Urea Nitrogen 24 mg/dL (9-23); Calcium (Corrected) 9.3 mg/dL (8.5-10.1); Carbon Dioxide 23.1 mMol/L (20.0-31.0); Chloride 112 mMol/L (98-107); Creatinine (Component) 1.7 mg/dL (0.6-1.3); Estimated Creatinine Clearance 35.3 mL/min (>60); Globulin 2.8 gm/dL (2.3-3.5); Glucose 128 mg/dL (74-106); Osmolality,Calculated 294 (275-295); Potassium 4.6 mMol/L (3.4-5.1); Sodium 145 mMol/L (136-145); Total Protein 6.4 gm/dL (5.7-8.2); eGFR 36 See Note
[2024-05-28] VITALS (10 sets, daily range): BP systolic 96–120; BP diastolic 55–76; PULSE 52–62; RESP 14–21; TEMP 36.4–36.8; O2SAT 95–100; BMI 29.6; BMI 29.7
[2024-05-28 00:52] LABS: Hematocrit 22.3 % (36.0-46.0)
[2024-05-28 00:56] LABS: Hemoglobin 7.5 g/dL (12.0-16.0)
[2024-05-28] MEDS: ACETAMINOPHEN 325 MG TABLET 650 MG PO ×3 (03:49→21:20)
[2024-05-28 05:08] LABS: Basophils % (Auto) 1 % (0-2.5); Eosinophils # (Auto) 0.1 Thou/mm3 (0.0-0.5); Eosinophils % (Auto) 4 % (0-10); Hematocrit 22.1 % (36.0-46.0); Immature Granulocytes % (Auto) 0 % (0-0); Immature Granulocytes Auto 0.01 Thou/mm3 (0.00-0.00); Lymphocytes # (Auto) 1.3 Thou/mm3 (1.0-4.8); Lymphocytes % (Auto) 40 % (10-50); Mean Corpuscular Hemoglobin 33.8 pg (25.0-35.0); Mean Corpuscular Volume 102 fL (80-100); Monocytes # (Auto) 0.2 Thou/mm3 (0.0-0.8); Monocytes % (Auto) 8 % (0-12); Neutrophils # (Auto) 1.5 Thou/mm3 (1.8-7.7); Neutrophils % (Auto) 47 % (37-80); Nucleated Red Blood Cell % 0 /100 WBC (0); RDW Standard Deviation 84.1 fL (36.4-46.3); Red Blood Count 2.16 Miln/mm3 (4.00-5.20)
[2024-05-28] MEDS: MIDODRINE 5 MG TABLET 10 MG PO ×3 (05:09→21:20)
[2024-05-28] MEDS: LACTULOSE SYRUP 20 GM/30 ML UDC PO ×3 (05:09→21:19)
[2024-05-28 05:15] LABS: Hemoglobin 7.3 g/dL (12.0-16.0); Platelet Count 30 Thou/mm3 (140-440); White Blood Count 3.2 Thou/mm3 (3.6-11.0)
[2024-05-28 06:01] LABS: Alanine Aminotransferase 10 U/L (10-49); Albumin, Serum 3.2 gm/dL (3.5-5.0); Albumin/Globulin Ratio 1.3 (1.2-2.2); Alkaline Phosphatase 62 U/L (46-116); Anion Gap 10 (7-16); Aspartate Amino Transferase 23 U/L (0-34); BUN/Creatinine Ratio 13 Ratio (12-20); Bilirubin,Total 4.6 mg/dL (0.3-1.2); Blood Urea Nitrogen 21 mg/dL (9-23); Calcium 8.7 mg/dL (8.3-10.6); Calcium (Corrected) 9.3 mg/dL (8.5-10.1); Carbon Dioxide 21.1 mMol/L (20.0-31.0); Chloride 114 mMol/L (98-107); Creatinine (Component) 1.6 mg/dL (0.6-1.3); Estimated Creatinine Clearance 37.5 mL/min (>60); Globulin 2.5 gm/dL (2.3-3.5); Glucose 141 mg/dL (74-106); Magnesium 1.8 mg/dL (1.6-2.6); Osmolality,Calculated 293 (275-295); Potassium 4.4 mMol/L (3.4-5.1); Sodium 145 mMol/L (136-145); Total Protein 5.7 gm/dL (5.7-8.2); eGFR 39 See Note
--- NOTE | 2024-05-28 07:20 | PC.NURSE ---
100g of Albumin given 05-28-2024 per MD Manuel.
[2024-05-28 07:25] LABS: Slide Review Platelets confirmed
[2024-05-28 08:52] LABS: Lactate (Lactic Acid) 2.3 mMol/L (0.4-2.0)
[2024-05-28] MEDS: NITROFURANTOIN MACRO 100 MG CAPSULE PO ×2 (09:11→21:19)
[2024-05-28] MEDS: rifaximin 550 MG TABLET PO ×2 (09:11→21:19)
[2024-05-28] MEDS: ALBUMIN HUMAN 25% IVPB 25 GM/100 ML BTL IV (09:12)
[2024-05-28] MEDS: PANTOPRAZOLE INJ 40 MG VIAL IV ×2 (09:12→21:19)
[2024-05-28 09:20] LABS: OBS QC OK? Yes
--- NOTE | 2024-05-28 09:50 | XR_ITS ---
Examination: Abdomen sonogram, complete Date and time of exam: May 28, 2024 1247 hours INDICATIONS: Right upper abdominal pain years, tenderness today, diagnosis cirrhosis. Technique: Multiple real-time grayscale transabdominal sonographic images of the abdomen have been obtained. Findings: Contracted gallbladder, gallbladder wall appears thickened 6 mm Common bile duct 0.3 cm Pancreatic head 2.7 cm Proximal aorta visualized not enlarged Liver 12.4 cm lobular contour Normal hepatopedal portal venous flow Patent IVC Right kidney 12.9 cm cortex 2.0 cm Lateral 38 mm cyst Left kidney 12.4 cm renal cortex 1.6 cm Moderate bilateral renal parenchymal scar formation Borderline splenomegaly 11.7 cm IMPRESSION: Recommend repeating the gallbladder portion of this study with fasting Cirrhosis, fatty liver Borderline splenomegaly
[2024-05-28 10:25] LABS: OBS Card Lot # 23001; Occult Blood, Stool Negative (Negative)
[2024-05-28 10:26] LABS: OBS Developer Lot # 28005; OBS Performed By RIVEV1
[2024-05-28] MEDS: RINGERS LACTATED 500 ML 500 ML 999 ML IV (10:40)
[2024-05-28] MEDS: cefTRIAXone/D5w 2gm 2 GM/50 ML BAG IV (10:40)
[2024-05-28 11:50] LABS: Reflex Lactate? Y
[2024-05-28 12:36] LABS: Lactic Acid, 3 HR 2.3 mMol/L (0.4-2.0)
--- NOTE | 2024-05-28 13:38 | ESPR_ITS ---
<Statement entered by Geoff Hernandes MD - 06/01/24 12:58> I reviewed above note and agree with findings and plans. I have also personally examined the patient with medicine team and went over assessment and plan with medical team including winter intern and resident physician. <Statement entered by Breonna Vines MD - 05/28/24 15:03> No acute overnight events. Patient was seen and examined. Hemoglobin is 7.2 today with PRBC, there was concern about GI bleed, gastroenterology was consulted, will follow-up with further recommendations. Otherwise patient is hemodynamically stable at this point, continue monitor blood pressure, I personally saw and examined the patient and discussed the assessment and plan with the entire medicine team, including my attending Dr. , Breonna Vines M.D. PGY-2 Disclaimer: Despite multiple revisions, due to the dictation software being used, the document bellow may not be free of grammatical errors including phonetic/typographic errors. However, this does not deter from our commitment to providing health care in the patient's best interest in mind. Documentation for date of: 05/28/24 Subjective Subjective Interval history: No overnight events. Patient seen and examined at bedside, resting. Patient denies fevers, chills, chest pain, shortness of breath. Patient does endorse mild abdominal pain. Pending GI consult due to acute anemia, risk of GI bleed. Continuing management of hepatic encephalopathy. Exam Vital Signs Temp Pulse Resp BP Pulse Ox O2 Del Method 97.7 F 56 L 19 110/59 L 97 Room Air 05/28/24 12:00 05/28/24 12:05/28/24 12:05/28/24 12:00 05/28/24 12:05/28/24 12:00 Narrative Exam PE: Gen: Well-developed and well-nourished. HEENT: NCAT, PERRLA, EOMI, MMM, anicteric conjunctivae. CVS: normal S1 and S2. RRR. No M/R/G. Resp: CTA B/L. No rhonchi, rales, crackles or wheezing. Abd: soft, non-tender. Distended, diffusely tender. MSK: Good ROM in BUE & BLE. No edema or rash. Neuro: CN II-XII grossly intact. Strength 5/5 in BUE & BLE. A&O x 3. Mildly lethargic. Objective Labs 05/28/24 04:34 05/28/24 04:34 Labs: Laboratory Results - last 24 hr 05/27/24 05/27/24 05/27/24 06:33 16:18 17:16 WBC RBC Hgb 6.4 L* Hct 18.9 L* MCV MCH MCHC RDW Std Deviation Plt Count Neut % (Auto) Lymph % (Auto) [place] % (Auto) Eos % (Auto) Baso % (Auto) Neut # (Auto) Lymph # (Auto) [place] # (Auto) Eos # (Auto) Baso # (Auto) Immature Gran # (Auto) Absolute Nucleated RBC Immature Gran % Nucleated RBC % Sodium Potassium Chloride Carbon Dioxide Anion Gap BUN Creatinine Estim Creat Clear Calc eGFR BUN/Creatinine Ratio Glucose Calculated Osmolality Lactic Acid Calcium Corrected Calcium Phosphorus Magnesium Total Bilirubin AST ALT Alkaline Phosphatase Total Protein Albumin Globulin Albumin/Globulin Ratio Stool Occult Blood Negative Misc Test Result Blood Type O Positive Antibody Screen NEGATIVE Crossmatch See Detail Blood Bank Wristband ID Yes 05/27/24 05/28/24 05/28/24 18:34 00:42 04:34 WBC 3.2 L RBC 2.16 L Hgb 7.5 L 7.3 L Hct 22.3 L 22.1 L MCV 102 H MCH 33.8 MCHC 33.0 RDW Std Deviation 84.1 H Plt Count 30 L Neut % (Auto) 47 Lymph % (Auto) 40 [place] % (Auto) 8 Eos % (Auto) 4 Baso % (Auto) 1 Neut # (Auto) 1.5 L Lymph # (Auto) 1.3 [place] # (Auto) 0.2 Eos # (Auto) 0.1 Baso # (Auto) 0.0 Immature Gran # (Auto) 0.01 H Absolute Nucleated RBC 0.00 Immature Gran % 0 Nucleated RBC % 0 Sodium 145 145 Potassium 4.6 4.4 Chloride 112 H 114 H Carbon Dioxide 23.1 21.1 Anion Gap 10 10 BUN 24 H 21 Creatinine 1.7 H 1.6 H Estim Creat Clear Calc 35.3 L 37.5 L eGFR 36 L 39 L BUN/Creatinine Ratio 14 13 Glucose 128 H D 141 H Calculated Osmolality 294 293 Lactic Acid Calcium 9.0 8.7 Corrected Calcium 9.3 9.3 Phosphorus 4.0 Magnesium 1.8 Total Bilirubin 5.8 H 4.6 H D AST 25 23 ALT 12 10 Alkaline Phosphatase 54 D 62 Total Protein 6.4 5.7 Albumin 3.6 D 3.2 L Globulin 2.8 2.5 Albumin/Globulin Ratio 1.3 1.3 Stool Occult Blood Misc Test Result Platelets confirmed Blood Type Antibody Screen Crossmatch Blood Bank Wristband ID 05/28/24 05/28/24 08:43 12:18 WBC RBC Hgb Hct MCV MCH MCHC RDW Std Deviation Plt Count Neut % (Auto) Lymph % (Auto) [place] % (Auto) Eos % (Auto) Baso % (Auto) Neut # (Auto) Lymph # (Auto) [place] # (Auto) Eos # (Auto) Baso # (Auto) Immature Gran # (Auto) Absolute Nucleated RBC Immature Gran % Nucleated RBC % Sodium Potassium Chloride Carbon Dioxide Anion Gap BUN Creatinine Estim Creat Clear Calc eGFR BUN/Creatinine Ratio Glucose Calculated Osmolality Lactic Acid 2.3 H 2.3 H Calcium Corrected Calcium Phosphorus Magnesium Total Bilirubin AST ALT Alkaline Phosphatase Total Protein Albumin Globulin Albumin/Globulin Ratio Stool Occult Blood Misc Test Result Blood Type Antibody Screen Crossmatch Blood Bank Wristband ID ABG Interpretation ABG results: 05/26/24 05/27/24 10:46 11:56 ABG pH 7.46 H 7.39 ABG pCO2 35 40 ABG pO2 91 33 L* D ABG HCO3 25 24 ABG O2 Saturation 97 97 ABG Base Excess 1 -1 Quality Measures Quality Measures VTE prophylaxis Assessment & Plan Assessment Current Active Medications: Generic Name Dose Route Start Last Admin Trade Name Freq PRN Reason Stop Dose Admin Acetaminophen 650 mg 05/27/24 10:14 05/28/24 12:31 Acetaminophen 325 Mg Tablet PO 06/26/24 10:13 650 mg Q4HR PRN Administration Pain 1-3 or Fever >100.3 Dextrose 25 ml 05/27/24 06:47 Dextrose 50%-Water Inj 50 Ml Syringe IV 06/26/24 06:46 Q15MIN PRN BG 50-70 responsive npo pt Dextrose 50 ml 05/27/24 06:47 Dextrose 50%-Water Inj 50 Ml Syringe IV 06/26/24 06:46 Q15MIN PRN BG <50 OR BG <70 & pt unresponsive Glucagon 1 mg 05/27/24 06:47 Glucagon Inj 1 Mg Vial IM Q15MIN PRN BG <70, and no IV access Albumin Human 25 gm in 100 mls @ 100 mls/hr 05/27/24 11:12 05/28/24 09:12 Albuminar-25 Ivpb IV 05/30/24 09:59 100 mls/hr QDAY CELINA Administration Ceftriaxone Sodium/Dextrose 2 gm in 50 mls @ 100 mls/hr 05/28/24 10:12 05/28/24 10:40 Rocephin/D5w 2gm IV 06/04/24 10:11 100 mls/hr QDAY CELINA Administration Insulin Human Lispro 0 unit 05/27/24 07:30 05/28/24 12:11 Insulin Lispro (Admelog) 1 Unit/0.01 Ml Unit SC 06/26/24 07:29 Not Given AC CELINA Protocol Lactulose 20 gm 05/27/24 06:00 05/28/24 05:09 Lactulose Syrup 20 Gm/30 Ml Udc PO 06/26/24 05:59 20 gm TID CELINA Administration Protocol Midodrine 10 mg 05/27/24 10:15 05/28/24 05:09 Midodrine 5 Mg Tablet PO 06/26/24 10:14 10 mg TID CELINA Administration Nitrofurantoin Macrocrystals 100 mg 05/27/24 11:45 05/28/24 09:11 Nitrofurantoin Macro 100 Mg Capsule PO 06/03/24 11:44 100 mg BID CELINA Administration Ondansetron HCl 4 mg 05/26/24 12:25 Ondansetron Inj 2 Mg/Ml Inj 2 Ml IV 06/25/24 12:24 Q6H PRN NAUSEA OR VOMITING Protocol Pantoprazole Sodium 40 mg 05/28/24 09:00 05/28/24 09:12 Pantoprazole Inj 40 Mg Vial IV 06/27/24 08:59 40 mg BID CELINA Administration Rifaximin 550 mg 05/26/24 12:30 05/28/24 09:11 Rifaximin 550 Mg Tablet PO 06/02/24 12:29 550 mg BID CELINA Administration Plan 53 y/o F with PMHx significant for cirrhosis, repeat episodes of hepatic encephalopathy who presented to ED from home with chief complaint of increased lethargy and confusion, admitted for hepatic encephalopathy. #Acute on chronic anemia Patient is history of anemia likely due to alcohol use end-stage liver disease. During course of admission patient had significant drop of hemoglobin requiring 1 unit packed red blood cells to be transfused patient denies melena, hematochezia, hematemesis. Hemoglobin stable the following day. GI consult placed due to concern for bleeding varices. - Monitor hemoglobin, transfuse again if needed - GI consult, appreciate recommendation #Hypotension - improving Patient had 2 rapid responses for hypotension, MAP repeatedly below 65, changed MAP goal to 60 and above as patient has cirrhosis, takes midodrine at home, increase midodrine to 10 3 times daily, gave IV fluid boluses, albumin IV 100 g ordered, repeat H&H and type and screen was ordered as patient had downtrending hemoglobin this a.m. ICU was consulted, sprinkler fitter apprentice recommended another fluid bolus, repeat CMP and H&H in the afternoon. Patient was also noted to be acidotic on labs this morning, lactic acid noted to be elevated, IV fluid boluses given, repeat lactic acid down trended. EKG showed PACs, sinus bradycardia. Low voltage QRS complexes. No evidence of third spacing on physical exam, no peripheral edema or ascites noted. Hypotension likely secondary to hypovolemia. Patient blood pressure robi steady the following day. - MAP goal 60 and above - IV fluid boluses - Increase midodrine 10 mg 3 times daily - IV Albumin 100 g x1 #UTI Of note patient had VRE on urine culture during prior admission 2 weeks ago, sensitive to Macrobid, she was treated with fosfomycin x 1. Urinalysis this admission is concerning for UTI, will start patient on Macrobid. - Macrobid 100mg Bid #Hepatic encephalopathy- improving #Decompensated liver failure #ESLD Patient is history of end-stage liver disease and recurrent hepatic encephalopathy, possibly due to noncompliance with medications. Patient reportedly has been having 1 bowel movement daily. Patient obtunded on presentation. Patient failed bedside swallow screen. Patient showing signs of end-stage liver disease, thrombocytopenia, elevated INR, decreased albumin. - Lactulose 20 g PO 3 times daily - Rifaximin 550 mg p.o. twice daily - Avoid hepatically metabolized medication - Albumin 25 g daily #LILY with hyperkalemia, improving Patient presented with notable LILY, possibly due to decreased intravascular volume. Patient also has hyperkalemia, 5.6. BUN 32, creatinine 2.0, EGFR 30. Patient received 1 L bolus and 1 g calcium gluconate in the ED. Patient given pending testing with an amp of D50, 1 dose Kayexalate. Repeat labs showed potassium down to 4.8. - Telemonitoring - Daily labs - Avoid nephrotoxins - Renally dose medications #Bradycardia, chronic Patient bradycardic in the ED, heart rate 47?50. Patient has history of bradycardia, previous admissions frequently showing heart rate this low. EKG unremarkable. -Med/tele -Midodrine 10 mg p.o. 3 times daily DVT prophylaxis: SCDs GI prophylaxis: Protonix Diet: Carb consistent well Lines: Peripheral IV Code status: Full code Plan of care discussed with senior resident Dr. Vines and attending Dr. Hernandes. Rene Cui MD PGY?2
--- NOTE | 2024-05-28 15:15 | PC.SS ---
Rounding: Pending GI consult
[2024-05-28] MEDS: INSULIN LISPRO (AdmeLOG) 1 UNIT/0.01 ML UNIT SC (17:20)
--- NOTE | 2024-05-28 18:26 | PD.IMCONS ---
HPI Data of Consult Requesting Physician: Geoff Hernandes MD Primary Care Provider: OPAL Salgado Consult Narrative Reason for consult: Altered mental status hemoglobin of 6.4 hematocrit 18.9 History of present illness: 53 years old female brought to the emergency room with altered mental status She has history of medications esophageal varices in the past she has a history of end-stage liver disease due to continued use of alcohol cc:: cc: Geoff Hernandes MD Review of Systems Review of Systems ROS Unobtainable: unobtainable due to medical condition Past Medical History Surgical History OTHER SURGICAL HX: End-stage liver disease due to alcohol history of GI bleeding requiring band ligation in the past Meds Home Medications and Allergies Home Medications ?Medication ?Instructions ?Recorded ?Confirmed ?Type rifaximin 550 mg tablet (Xifaxan) 550 mg PO BID 01/12/24 05/26/24 History ergocalciferol (vitamin D2) 1,250 1,250 mcg PO QWEEK 02/06/24 05/26/24 History mcg (50,000 unit) capsule (Vitamin D2) methocarbamol 750 mg tablet 750 mg PO BID 02/06/24 05/26/24 History metformin 500 mg tablet 500 mg PO BID 05/11/24 05/26/24 History midodrine 5 mg tablet 5 mg PO TID 05/11/24 05/26/24 History multivitamin 1 tab PO QDAY 05/11/24 05/26/24 History mirtazapine 15 mg tablet 15 mg PO HS 05/12/24 05/26/24 History propranolol 40 mg tablet 40 mg PO QDAY 05/12/24 05/26/24 History hydrocodone 5 mg-acetaminophen 325 tab PO Q12H PRN pain 05/26/24 History mg tablet Allergies Allergy/AdvReac Type Severity Reaction Status Date / Time latex Allergy Severe Hives Verified 04/13/24 09:15 Exam Vital Signs Temp Pulse Resp BP Pulse Ox O2 Del Method 98.3 F 52 L 16 109/76 100 Room Air 05/28/24 16:00 05/28/24 16:00 05/28/24 16:00 05/28/24 16:00 05/28/24 16:00 05/28/24 16:00 Routine Respiratory Exam Comments: Normal to auscultation Routine Abdominal Exam Comments: Soft nontender Results Labs 04/14/25 04:34 05/28/24 04:34 Labs: Short CBC 05/28/24 05/28/24 Range/Units 00:42 04:34 WBC 3.2 L (3.6-11.0) Thou/mm3 Hgb 7.5 L 7.3 L (12.0-16.0) g/dL Hct 22.3 L 22.1 L (36.0-46.0) % Plt Count 30 L (140-440) Thou/mm3 BMP 05/27/24 05/28/24 18:34 04:34 Sodium 145 145 Potassium 4.6 4.4 Chloride 112 H 114 H Carbon Dioxide 23.1 21.1 BUN 24 H 21 Creatinine 1.7 H 1.6 H Glucose 128 H D 141 H Calcium 9.0 8.7 Liver Function 05/27/24 05/28/24 Range/Units 18:34 04:34 Total Bilirubin 5.8 H 4.6 H D (0.3-1.2) mg/dL AST 25 23 (0-34) U/L ALT 12 10 (10-49) U/L Alkaline Phosphatase 54 D 62 (46-116) U/L Albumin 3.6 D 3.2 L (3.5-5.0) gm/dL ABG Interpretation ABG results: 05/26/24 05/27/24 10:46 11:56 ABG pH 7.46 H 7.39 ABG pCO2 35 40 ABG pO2 91 33 L* D ABG HCO3 25 24 ABG O2 Saturation 97 97 ABG Base Excess 1 -1 Assessment and Plan Additional Assessment & Plan Additional Plan: Altered mental status most likely acute metabolic/hepatic encephalopathy Anemia most likely due to mucosal oozing of blood Plan Continue current management Recommend octreotide infusion for 5 days No need for a repeat endoscopy at this time Will manage the patient conservatively Thank you very much for the opportunity to participate in care of this
[2024-05-29] VITALS (9 sets, daily range): BP systolic 94–142; BP diastolic 54–68; PULSE 49–57; RESP 12–18; TEMP 36.3–36.8; O2SAT 93–97; BMI 30.7
[2024-05-29] MEDS: MIDODRINE 5 MG TABLET 10 MG PO ×3 (05:18→21:21)
[2024-05-29] MEDS: LACTULOSE SYRUP 20 GM/30 ML UDC PO ×2 (05:18→14:32)
[2024-05-29 05:52] LABS: Basophils % (Auto) 1 % (0-2.5); Eosinophils # (Auto) 0.2 Thou/mm3 (0.0-0.5); Eosinophils % (Auto) 5 % (0-10); Hematocrit 24.5 % (36.0-46.0); Immature Granulocytes % (Auto) 0 % (0-0); Immature Granulocytes Auto 0.01 Thou/mm3 (0.00-0.00); Lymphocytes # (Auto) 1.2 Thou/mm3 (1.0-4.8); Lymphocytes % (Auto) 34 % (10-50); Mean Corpuscular HGB Conc 32.2 g/dl (31.0-37.0); Mean Corpuscular Hemoglobin 34.1 pg (25.0-35.0); Mean Corpuscular Volume 106 fL (80-100); Monocytes # (Auto) 0.3 Thou/mm3 (0.0-0.8); Monocytes % (Auto) 7 % (0-12); Neutrophils # (Auto) 1.9 Thou/mm3 (1.8-7.7); Neutrophils % (Auto) 53 % (37-80); Nucleated Red Blood Cell % 0 /100 WBC (0); RDW Standard Deviation 83.5 fL (36.4-46.3); Red Blood Count 2.32 Miln/mm3 (4.00-5.20); White Blood Count 3.5 Thou/mm3 (3.6-11.0)
[2024-05-29 05:54] LABS: Hemoglobin 7.9 g/dL (12.0-16.0); Platelet Count 31 Thou/mm3 (140-440)
[2024-05-29 06:11] LABS: Alanine Aminotransferase 11 U/L (10-49); Albumin, Serum 3.4 gm/dL (3.5-5.0); Albumin/Globulin Ratio 1.3 (1.2-2.2); Alkaline Phosphatase 63 U/L (46-116); Anion Gap 8 (7-16); Aspartate Amino Transferase 21 U/L (0-34); BUN/Creatinine Ratio 13 Ratio (12-20); Bilirubin,Total 4.4 mg/dL (0.3-1.2); Blood Urea Nitrogen 18 mg/dL (9-23); Calcium 8.8 mg/dL (8.3-10.6); Calcium (Corrected) 9.3 mg/dL (8.5-10.1); Carbon Dioxide 22.7 mMol/L (20.0-31.0); Chloride 114 mMol/L (98-107); Creatinine (Component) 1.4 mg/dL (0.6-1.3); Estimated Creatinine Clearance 43.1 mL/min (>60); Globulin 2.6 gm/dL (2.3-3.5); Glucose 117 mg/dL (74-106); Magnesium 1.8 mg/dL (1.6-2.6); Osmolality,Calculated 291 (275-295); Potassium 4.8 mMol/L (3.4-5.1); Sodium 145 mMol/L (136-145); eGFR 45 See Note
[2024-05-29 07:06] LABS: Slide Review Platelets confirmed
[2024-05-29] MEDS: cefTRIAXone/D5w 2gm 2 GM/50 ML BAG IV (08:26)
[2024-05-29] MEDS: NITROFURANTOIN MACRO 100 MG CAPSULE PO ×2 (08:26→21:20)
[2024-05-29] MEDS: PANTOPRAZOLE INJ 40 MG VIAL IV ×2 (08:26→21:22)
[2024-05-29] MEDS: OCTREOTIDE ACET INJ 1,000 MCG in SODIUM CHLORIDE 0.9% 100 ML 5.1 MCG IV (08:26)
[2024-05-29] MEDS: rifaximin 550 MG TABLET PO ×2 (08:27→21:20)
[2024-05-29] MEDS: INSULIN LISPRO (AdmeLOG) 1 UNIT/0.01 ML UNIT SC ×2 (11:48→17:00)
--- NOTE | 2024-05-29 12:32 | PC.SS ---
Elzbieta Knight is a 53-year-old female admitted to [facility] for Hepatic Encephalopathy. SS conducted bedside contact with the pt to conduct initial assessment. Pt confirmed demographic information. Pt confirmed demographic information. She identifies her Mother Bridgett Knight [phone] as her surrogate decision maker. Pt states she requires max assistance at home and her family help her. DME at home wlker, 3 in 1 BSC. DC options discussed and she wishes to return home. Pt pharmacy of choice is [facility] and her PCP is Dr. Darling and last visit was a few weeks ago. Pts mother will provide transport on her behalf. No further needs identified. SS will remain available for any additional needs or concerns. DC plan: Home DM: Mother-Bridgett PCP: Dr. Darling
--- NOTE | 2024-05-29 13:18 | ESPR_ITS ---
<Statement entered by Geoff Hernandes MD - 06/05/24 13:47> I reviewed above note and agree with findings and plans. I have also personally examined the patient with medicine team and went over assessment and plan with medical team including clinical nursing intern and resident physician. <Statement entered by Breonna Vines MD - 05/29/24 13:34> I discussed with and supervised the clinical nursing intern physician who took care of this patient. I personally saw and examined the patient and discussed the assessment and plan with the entire medicine team, including my attending , I agree with the assessment and plan as documented below Breonna Vines M.D. PGY-2 Disclaimer: Despite multiple revisions, due to the dictation software being used, the document bellow may not be free of grammatical errors including phonetic/typographic errors. However, this does not deter from our commitment to providing health care in the patient's best interest in mind. Documentation for date of: 05/29/24 Subjective Subjective Interval history: No overnight events. Patient seen and examined at bedside, resting comfortably. Patient continues to endorse abdominal pain, generalized lethargy. Denies fevers, chills, chest pain, shortness of breath, nausea, vomiting. Per GI recs, begin 5 days of octreotide drip. Continuing lactulose and rifaximin. Exam Vital Signs Temp Pulse Resp BP Pulse Ox O2 Del Method 98.1 F 50 L 14 102/61 95 Room Air 05/29/24 12:00 05/29/24 12:00 05/29/24 12:00 05/29/24 12:00 05/29/24 12:05/29/24 12:00 Narrative Exam PE: Gen: Well-developed and well-nourished. HEENT: NCAT, PERRLA, EOMI, MMM, anicteric conjunctivae. CVS: normal S1 and S2. RRR. No M/R/G. Resp: CTA B/L. No rhonchi, rales, crackles or wheezing. Abd: soft, non-tender. Distended, diffusely tender. MSK: Good ROM in BUE & BLE. No edema or rash. Neuro: CN II-XII grossly intact. Strength 5/5 in BUE & BLE. A&O x 3. Mildly lethargic. Objective Labs 05/29/24 05:27 05/29/24 05:27 Labs: Laboratory Results - last 24 hr 05/29/24 05:27 WBC 3.5 L RBC 2.32 L Hgb 7.9 L Hct 24.5 L MCV 106 H MCH 34.1 MCHC 32.2 RDW Std Deviation 83.5 H Plt Count 31 L Neut % (Auto) 53 Lymph % (Auto) 34 [place] % (Auto) 7 Eos % (Auto) 5 Baso % (Auto) 1 Neut # (Auto) 1.9 Lymph # (Auto) 1.2 [place] # (Auto) 0.3 Eos # (Auto) 0.2 Baso # (Auto) 0.0 Immature Gran # (Auto) 0.01 H Absolute Nucleated RBC 0.00 Immature Gran % 0 Nucleated RBC % 0 Sodium 145 Potassium 4.8 Chloride 114 H Carbon Dioxide 22.7 Anion Gap 8 BUN 18 Creatinine 1.4 H Estim Creat Clear Calc 43.1 L eGFR 45 L BUN/Creatinine Ratio 13 Glucose 117 H Calculated Osmolality 291 Calcium 8.8 Corrected Calcium 9.3 Phosphorus 3.0 Magnesium 1.8 Total Bilirubin 4.4 H AST 21 ALT 11 Alkaline Phosphatase 63 Total Protein 6.0 Albumin 3.4 L Globulin 2.6 Albumin/Globulin Ratio 1.3 Misc Test Result Platelets confirmed ABG Interpretation ABG results: 05/26/24 05/27/24 10:46 11:56 ABG pH 7.46 H 7.39 ABG pCO2 35 40 ABG pO2 91 33 L* D ABG HCO3 25 24 ABG O2 Saturation 97 97 ABG Base Excess 1 -1 Quality Measures Quality Measures VTE prophylaxis Assessment & Plan Assessment Current Active Medications: Generic Name Dose Route Start Last Admin Trade Name Freq PRN Reason Stop Dose Admin Acetaminophen 650 mg 05/27/24 10:14 05/28/24 21:20 Acetaminophen 325 Mg Tablet PO 06/26/24 10:13 650 mg Q4HR PRN Administration Pain 1-3 or Fever >100.3 Dextrose 25 ml 05/27/24 06:47 Dextrose 50%-Water Inj 50 Ml Syringe IV 06/26/24 06:46 Q15MIN PRN BG 50-70 responsive npo pt Dextrose 50 ml 05/27/24 06:47 Dextrose 50%-Water Inj 50 Ml Syringe IV 06/26/24 06:46 Q15MIN PRN BG <50 OR BG <70 & pt unresponsive Glucagon 1 mg 05/27/24 06:47 Glucagon Inj 1 Mg Vial IM Q15MIN PRN BG <70, and no IV access Albumin Human 25 gm in 100 mls @ 100 mls/hr 05/27/24 11:12 05/28/24 09:12 Albuminar-25 Ivpb IV 05/30/24 09:59 100 mls/hr QDAY CELINA Administration Ceftriaxone Sodium/Dextrose 2 gm in 50 mls @ 100 mls/hr 05/28/24 10:12 05/29/24 08:26 Rocephin/D5w 2gm IV 06/04/24 10:11 100 mls/hr QDAY CELINA Administration Octreotide Acetate 1,000 mcg/ 102 mls @ 5.1 mls/hr 05/29/24 07:46 05/29/24 08:26 Sodium Chloride IV 06/03/24 07:46 50 mcg/hr .Q20H CELINA 5.1 mls/hr Administration Protocol 50 MCG/HR Insulin Human Lispro 0 unit 05/27/24 07:30 05/29/24 11:48 Insulin Lispro (Admelog) 1 Unit/0.01 Ml Unit SC 06/26/24 07:29 1 unit AC CELINA Administration Protocol Lactulose 20 gm 05/27/24 06:00 05/29/24 05:18 Lactulose Syrup 20 Gm/30 Ml Udc PO 06/26/24 05:59 20 gm TID CELINA Administration Protocol Midodrine 10 mg 05/27/24 10:15 05/29/24 05:18 Midodrine 5 Mg Tablet PO 06/26/24 10:14 10 mg TID CELINA Administration Nitrofurantoin Macrocrystals 100 mg 05/27/24 11:45 05/29/24 08:26 Nitrofurantoin Macro 100 Mg Capsule PO 06/03/24 11:44 100 mg BID CELINA Administration Ondansetron HCl 4 mg 05/26/24 12:25 Ondansetron Inj 2 Mg/Ml Inj 2 Ml IV 06/25/24 12:24 Q6H PRN NAUSEA OR VOMITING Protocol Pantoprazole Sodium 40 mg 05/28/24 09:00 05/29/24 08:26 Pantoprazole Inj 40 Mg Vial IV 06/27/24 08:59 40 mg BID CELINA Administration Rifaximin 550 mg 05/26/24 12:30 05/29/24 08:27 Rifaximin 550 Mg Tablet PO 06/02/24 12:29 550 mg BID CELINA Administration Plan 53 y/o F with PMHx significant for cirrhosis, repeat episodes of hepatic encephalopathy who presented to ED from home with chief complaint of increased lethargy and confusion, admitted for hepatic encephalopathy. #Acute on chronic anemia Patient is history of anemia likely due to alcohol use end-stage liver disease. During course of admission patient had significant drop of hemoglobin requiring 1 unit packed red blood cells to be transfused patient denies melena, hematochezia, hematemesis. Hemoglobin stable the following day. GI consult placed due to concern for bleeding varices. Recommended octreotide drip - Monitor hemoglobin, transfuse again if needed - GI consult, appreciate recommendation - Octreotide drip x 5 days (complete 06/03) #Hypotension - improving Patient had 2 rapid responses for hypotension, MAP repeatedly below 65, changed MAP goal to 60 and above as patient has cirrhosis, takes midodrine at home, increase midodrine to 10 3 times daily, gave IV fluid boluses, albumin IV 100 g ordered, repeat H&H and type and screen was ordered as patient had downtrending hemoglobin this a.m. ICU was consulted, clean out driller helper recommended another fluid bolus, repeat CMP and H&H in the afternoon. Patient was also noted to be acidotic on labs this morning, lactic acid noted to be elevated, IV fluid boluses given, repeat lactic acid down trended. EKG showed PACs, sinus bradycardia. Low voltage QRS complexes. No evidence of third spacing on physical exam, no peripheral edema or ascites noted. Hypotension likely secondary to hypovolemia. Patient blood pressure orbi steady the following day. - MAP goal 60 and above - IV fluid boluses - Increase midodrine 10 mg 3 times daily - IV Albumin 100 g x1 #UTI Of note patient had VRE on urine culture during prior admission 2 weeks ago, sensitive to Macrobid, she was treated with fosfomycin x 1. Urinalysis this admission is concerning for UTI, will start patient on Macrobid. - Macrobid 100mg Bid #Hepatic encephalopathy- improving #Decompensated liver failure #ESLD Patient is history of end-stage liver disease and recurrent hepatic encephalopathy, possibly due to noncompliance with medications. Patient reportedly has been having 1 bowel movement daily. Patient obtunded on presentation. Patient failed bedside swallow screen. Patient showing signs of end-stage liver disease, thrombocytopenia, elevated INR, decreased albumin. - Lactulose 20 g PO 3 times daily - Rifaximin 550 mg p.o. twice daily - Avoid hepatically metabolized medication - Albumin 25 g daily #LILY with hyperkalemia, improving Patient presented with notable LILY, possibly due to decreased intravascular volume. Patient also has hyperkalemia, 5.6. BUN 32, creatinine 2.0, EGFR 30. Patient received 1 L bolus and 1 g calcium gluconate in the ED. Patient given pending testing with an amp of D50, 1 dose Kayexalate. Repeat labs showed potassium down to 4.8. - Telemonitoring - Daily labs - Avoid nephrotoxins - Renally dose medications #Bradycardia, chronic Patient bradycardic in the ED, heart rate 47?50. Patient has history of bradycardia, previous admissions frequently showing heart rate this low. EKG unremarkable. -Med/tele -Midodrine 10 mg p.o. 3 times daily DVT prophylaxis: SCDs GI prophylaxis: Protonix Diet: Carb consistent well Lines: Peripheral IV Code status: Full code Plan of care discussed with senior resident Dr. Vines and attending Dr. Hernandes. Rene Cui MD PGY?2
[2024-05-29] MEDS: ACETAMINOPHEN 325 MG TABLET 650 MG PO (14:36)
[2024-05-30] VITALS (9 sets, daily range): BP systolic 104–127; BP diastolic 58–76; PULSE 46–61; RESP 12–18; TEMP 35.9–36.6; O2SAT 94–99; BMI 29.8
[2024-05-30] MEDS: oxyCODONE/APAP 5/325 TABLET 1 TAB PO ×2 (00:47→07:04)
[2024-05-30] MEDS: ACETAMINOPHEN 325 MG TABLET 650 MG PO (03:06)
[2024-05-30] MEDS: OCTREOTIDE ACET INJ 1,000 MCG in SODIUM CHLORIDE 0.9% 100 ML 5.1 MCG IV (04:16)
[2024-05-30] MEDS: LACTULOSE SYRUP 20 GM/30 ML UDC PO ×2 (05:55→15:12)
[2024-05-30] MEDS: INSULIN LISPRO (AdmeLOG) 1 UNIT/0.01 ML UNIT SC (07:16)
[2024-05-30] MEDS: rifaximin 550 MG TABLET PO ×2 (09:12→20:32)
[2024-05-30] MEDS: NITROFURANTOIN MACRO 100 MG CAPSULE PO ×2 (09:12→20:32)
[2024-05-30] MEDS: PANTOPRAZOLE INJ 40 MG VIAL IV ×2 (09:12→20:32)
[2024-05-30] MEDS: cefTRIAXone/D5w 2gm 2 GM/50 ML BAG IV (09:12)
[2024-05-30 11:30] LABS: Basophils % (Auto) 1 % (0-2.5); Eosinophils # (Auto) 0.2 Thou/mm3 (0.0-0.5); Eosinophils % (Auto) 5 % (0-10); Hematocrit 26.3 % (36.0-46.0); Immature Granulocytes % (Auto) 0 % (0-0); Immature Granulocytes Auto 0.01 Thou/mm3 (0.00-0.00); Lymphocytes % (Auto) 32 % (10-50); Mean Corpuscular HGB Conc 32.7 g/dl (31.0-37.0); Mean Corpuscular Hemoglobin 34.3 pg (25.0-35.0); Mean Corpuscular Volume 105 fL (80-100); Monocytes # (Auto) 0.2 Thou/mm3 (0.0-0.8); Monocytes % (Auto) 7 % (0-12); Neutrophils # (Auto) 1.8 Thou/mm3 (1.8-7.7); Neutrophils % (Auto) 56 % (37-80); Nucleated Red Blood Cell % 0 /100 WBC (0); RDW Standard Deviation 79.6 fL (36.4-46.3); Red Blood Count 2.51 Miln/mm3 (4.00-5.20); White Blood Count 3.3 Thou/mm3 (3.6-11.0)
[2024-05-30 11:34] LABS: Hemoglobin 8.6 g/dL (12.0-16.0); Platelet Count 32 Thou/mm3 (140-440)
[2024-05-30 11:56] LABS: Alanine Aminotransferase 11 U/L (10-49); Albumin, Serum 3.4 gm/dL (3.5-5.0); Albumin/Globulin Ratio 1.2 (1.2-2.2); Alkaline Phosphatase 61 U/L (46-116); Anion Gap 6 (7-16); Aspartate Amino Transferase 36 U/L (0-34); BUN/Creatinine Ratio 11 Ratio (12-20); Bilirubin,Total 4.7 mg/dL (0.3-1.2); Blood Urea Nitrogen 13 mg/dL (9-23); Calcium 8.6 mg/dL (8.3-10.6); Calcium (Corrected) 9.1 mg/dL (8.5-10.1); Carbon Dioxide 21.6 mMol/L (20.0-31.0); Chloride 113 mMol/L (98-107); Creatinine (Component) 1.2 mg/dL (0.6-1.3); Estimated Creatinine Clearance 50.3 mL/min (>60); Globulin 2.9 gm/dL (2.3-3.5); Glucose 153 mg/dL (74-106); Osmolality,Calculated 284 (275-295); Potassium 5.2 mMol/L (3.4-5.1); Sodium 141 mMol/L (136-145); Total Protein 6.3 gm/dL (5.7-8.2); eGFR 54 See Note
[2024-05-30 11:57] LABS: Slide Review Platelets confirmed
--- NOTE | 2024-05-30 13:47 | PC.PT ---
Patient's PLOF is non ambulatory and a dale lift transfer at home. Patient is not a candidate for PT at this time secondary to patient is at her PLOF. Will cancel PT evaluation.
[2024-05-30] MEDS: MIDODRINE 5 MG TABLET 10 MG PO ×2 (15:12→21:44)
--- NOTE | 2024-05-30 15:20 | ESPR_ITS ---
<Statement entered by Geoff Hernandes MD - 06/05/24 13:48> I reviewed above note and agree with findings and plans. I have also personally examined the patient with medicine team and went over assessment and plan with medical team including internal consultant and resident physician. <Statement entered by Breonna Vines MD - 05/30/24 15:27> No acute overnight events. Patient is hemodinamically stable, continue 3 more days of octreotide drip, clos monitore HR, baseline bradicardia. patient need close f/u with outpatient hepatology. I discussed with and supervised the internal consultant physician who took care of this patient. I personally saw and examined the patient and discussed the assessment and plan with the entire medicine team, including my attending , I agree with the assessment and plan as documented below Breonna Vines M.D. PGY-2 Disclaimer: Despite multiple revisions, due to the dictation software being used, the document bellow may not be free of grammatical errors including phonetic/typographic errors. However, this does not deter from our commitment to providing health care in the patient's best interest in mind. Documentation for date of: 05/30/24 Subjective Subjective Interval history: No overnight events. Patient was seen and examined at bedside, resting comfortably. Patient reports overall significant improvement symptoms, continues to endorse diffuse abdominal tenderness but states is has been present ever since diagnosis of cirrhosis. Patient endorses decrease in mobility for several months. PT eval ordered. Continuing octreotide drip, treatment for hepatic encephalopathy. Exam Vital Signs Temp Pulse Resp BP Pulse Ox O2 Del Method 97.2 F 61 17 104/58 L 99 Room Air 05/30/24 12:00 05/30/24 15:12 05/30/24 12:00 05/30/24 15:12 05/30/24 12:00 05/30/24 12:00 Narrative Exam PE: Gen: Well-developed and well-nourished. HEENT: NCAT, PERRLA, EOMI, MMM, anicteric conjunctivae. CVS: normal S1 and S2. RRR. No M/R/G. Resp: CTA B/L. No rhonchi, rales, crackles or wheezing. Abd: soft, non-tender. Distended, diffusely tender. MSK: Good ROM in BUE & BLE. No edema or rash. Neuro: CN II-XII grossly intact. Strength 5/5 in BUE & BLE. A&O x 3. Objective Labs 05/30/24 11:06 05/30/24 11:06 Labs: Laboratory Results - last 24 hr 05/30/24 11:06 WBC 3.3 L RBC 2.51 L Hgb 8.6 L Hct 26.3 L MCV 105 H MCH 34.3 MCHC 32.7 RDW Std Deviation 79.6 H Plt Count 32 L Neut % (Auto) 56 Lymph % (Auto) 32 [place] % (Auto) 7 Eos % (Auto) 5 Baso % (Auto) 1 Neut # (Auto) 1.8 Lymph # (Auto) 1.0 [place] # (Auto) 0.2 Eos # (Auto) 0.2 Baso # (Auto) 0.0 Immature Gran # (Auto) 0.01 H Absolute Nucleated RBC 0.00 Immature Gran % 0 Nucleated RBC % 0 Sodium 141 Potassium 5.2 H Chloride 113 H Carbon Dioxide 21.6 Anion Gap 6 L BUN 13 Creatinine 1.2 Estim Creat Clear Calc 50.3 L eGFR 54 L BUN/Creatinine Ratio 11 L Glucose 153 H Calculated Osmolality 284 Calcium 8.6 Corrected Calcium 9.1 Total Bilirubin 4.7 H AST 36 H ALT 11 Alkaline Phosphatase 61 Total Protein 6.3 Albumin 3.4 L Globulin 2.9 Albumin/Globulin Ratio 1.2 Misc Test Result Platelets confirmed ABG Interpretation ABG results: 05/26/24 05/27/24 10:46 11:56 ABG pH 7.46 H 7.39 ABG pCO2 35 40 ABG pO2 91 33 L* D ABG HCO3 25 24 ABG O2 Saturation 97 97 ABG Base Excess 1 -1 Quality Measures Quality Measures VTE prophylaxis Assessment & Plan Assessment Current Active Medications: Generic Name Dose Route Start Last Admin Trade Name Freq PRN Reason Stop Dose Admin Acetaminophen 650 mg 05/27/24 10:14 05/30/24 03:06 Acetaminophen 325 Mg Tablet PO 06/26/24 10:13 650 mg Q4HR PRN Administration Pain 1-3 or Fever >100.3 Dextrose 25 ml 05/27/24 06:47 Dextrose 50%-Water Inj 50 Ml Syringe IV 06/26/24 06:46 Q15MIN PRN BG 50-70 responsive npo pt Dextrose 50 ml 05/27/24 06:47 Dextrose 50%-Water Inj 50 Ml Syringe IV 06/26/24 06:46 Q15MIN PRN BG <50 OR BG <70 & pt unresponsive Glucagon 1 mg 05/27/24 06:47 Glucagon Inj 1 Mg Vial IM Q15MIN PRN BG <70, and no IV access Ceftriaxone Sodium/Dextrose 2 gm in 50 mls @ 100 mls/hr 05/28/24 10:12 05/30/24 09:12 Rocephin/D5w 2gm IV 06/04/24 10:11 100 mls/hr QDAY CELINA Administration Octreotide Acetate 1,000 mcg/ 102 mls @ 5.1 mls/hr 05/29/24 07:46 05/30/24 04:16 Sodium Chloride IV 06/03/24 07:46 50 mcg/hr .Q20H CELINA 5.1 mls/hr Administration Protocol 50 MCG/HR Insulin Human Lispro 0 unit 05/27/24 07:30 05/30/24 11:53 Insulin Lispro (Admelog) 1 Unit/0.01 Ml Unit SC 06/26/24 07:29 Not Given AC CELINA Protocol Lactulose 20 gm 05/27/24 06:00 05/30/24 15:12 Lactulose Syrup 20 Gm/30 Ml Udc PO 06/26/24 05:59 20 gm TID CELINA Administration Protocol Midodrine 10 mg 05/27/24 10:15 05/30/24 15:12 Midodrine 5 Mg Tablet PO 06/26/24 10:14 10 mg TID CELINA Administration Nitrofurantoin Macrocrystals 100 mg 05/27/24 11:45 05/30/24 09:12 Nitrofurantoin Macro 100 Mg Capsule PO 06/03/24 11:44 100 mg BID CELINA Administration Ondansetron HCl 4 mg 05/26/24 12:25 Ondansetron Inj 2 Mg/Ml Inj 2 Ml IV 06/25/24 12:24 Q6H PRN NAUSEA OR VOMITING Protocol Pantoprazole Sodium 40 mg 05/28/24 09:00 05/30/24 09:12 Pantoprazole Inj 40 Mg Vial IV 06/27/24 08:59 40 mg BID CELINA Administration Rifaximin 550 mg 05/26/24 12:30 05/30/24 09:12 Rifaximin 550 Mg Tablet PO 06/02/24 12:29 550 mg BID CELINA Administration Plan 53 y/o F with PMHx significant for cirrhosis, repeat episodes of hepatic encephalopathy who presented to ED from home with chief complaint of increased lethargy and confusion, admitted for hepatic encephalopathy. #Acute on chronic anemia Patient is history of anemia likely due to alcohol use end-stage liver disease. During course of admission patient had significant drop of hemoglobin requiring 1 unit packed red blood cells to be transfused patient denies melena, hematochezia, hematemesis. Hemoglobin stable the following day. GI consult placed due to concern for bleeding varices. Recommended octreotide drip - Monitor hemoglobin, transfuse again if needed - GI consult, appreciate recommendation - Octreotide drip x 5 days (complete 06/03) #Hypotension - improving Patient had 2 rapid responses for hypotension, MAP repeatedly below 65, changed MAP goal to 60 and above as patient has cirrhosis, takes midodrine at home, increase midodrine to 10 3 times daily, gave IV fluid boluses, albumin IV 100 g ordered, repeat H&H and type and screen was ordered as patient had downtrending hemoglobin this a.m. ICU was consulted, software quality automation engineer recommended another fluid bolus, repeat CMP and H&H in the afternoon. Patient was also noted to be acidotic on labs this morning, lactic acid noted to be elevated, IV fluid boluses given, repeat lactic acid down trended. EKG showed PACs, sinus bradycardia. Low voltage QRS complexes. No evidence of third spacing on physical exam, no peripheral edema or ascites noted. Hypotension likely secondary to hypovolemia. Patient blood pressure robi steady the following day. - MAP goal 60 and above - IV fluid boluses - Increase midodrine 10 mg 3 times daily - IV Albumin 100 g x1 #UTI Of note patient had VRE on urine culture during prior admission 2 weeks ago, sensitive to Macrobid, she was treated with fosfomycin x 1. Urinalysis this admission is concerning for UTI, will start patient on Macrobid. - Macrobid 100mg Bid #Hepatic encephalopathy-resolved #Decompensated liver failure #ESLD Patient is history of end-stage liver disease and recurrent hepatic encephalopathy, possibly due to noncompliance with medications. Patient reportedly has been having 1 bowel movement daily. Patient obtunded on presentation. Patient failed bedside swallow screen. Patient showing signs of end-stage liver disease, thrombocytopenia, elevated INR, decreased albumin. - Lactulose 20 g PO 3 times daily - Rifaximin 550 mg p.o. twice daily - Avoid hepatically metabolized medication - Albumin 25 g daily #LILY with hyperkalemia, improving Patient presented with notable LILY, possibly due to decreased intravascular volume. Patient also has hyperkalemia, 5.6. BUN 32, creatinine 2.0, EGFR 30. Patient received 1 L bolus and 1 g calcium gluconate in the ED. Patient given pending testing with an amp of D50, 1 dose Kayexalate. Repeat labs showed potassium down to 4.8. - Telemonitoring - Daily labs - Avoid nephrotoxins - Renally dose medications #Bradycardia, chronic Patient bradycardic in the ED, heart rate 47?50. Patient has history of bradycardia, previous admissions frequently showing heart rate this low. EKG unremarkable. -Med/tele -Midodrine 10 mg p.o. 3 times daily DVT prophylaxis: SCDs GI prophylaxis: Protonix Diet: Carb consistent well Lines: Peripheral IV Code status: Full code Plan of care discussed with senior resident Dr. Vines and attending Dr. Hernandes. Rene Cui MD PGY?2
--- NOTE | 2024-05-30 15:29 | PC.SS ---
rounding note: Patient needs 3 more days on drip then d/c home.
--- NOTE | 2024-05-30 21:40 | PC.NURSE ---
Patient refused her lactulose 2200 dose tonight. I did educate patient about the importance of taking lactulose. Patient reports already having several bowel movements in the AM and does not want to take tonight's dose. Patient is alert and oriented. She said she will resume dose at 0600.
[2024-05-30] MEDS: HYDROcodone/APAP 5/325 TABLET 1 TAB PO (21:44)
[2024-05-31] VITALS (10 sets, daily range): BP systolic 104–131; BP diastolic 52–78; PULSE 52–65; RESP 13–19; TEMP 36.2–36.8; O2SAT 93–99; BMI 31.5
[2024-05-31] MEDS: OCTREOTIDE ACET INJ 1,000 MCG in SODIUM CHLORIDE 0.9% 100 ML 5.1 MCG IV ×2 (00:03→19:29)
[2024-05-31] MEDS: MIDODRINE 5 MG TABLET 10 MG PO ×2 (05:14→21:32)
[2024-05-31] MEDS: LACTULOSE SYRUP 20 GM/30 ML UDC PO ×2 (05:15→14:20)
[2024-05-31] MEDS: ACETAMINOPHEN 325 MG TABLET 650 MG PO (05:26)
[2024-05-31 07:37] LABS: Basophils % (Auto) 1 % (0-2.5); Eosinophils # (Auto) 0.2 Thou/mm3 (0.0-0.5); Eosinophils % (Auto) 5 % (0-10); Hematocrit 26.7 % (36.0-46.0); Immature Granulocytes % (Auto) 0 % (0-0); Immature Granulocytes Auto 0.01 Thou/mm3 (0.00-0.00); Lymphocytes # (Auto) 1.2 Thou/mm3 (1.0-4.8); Lymphocytes % (Auto) 31 % (10-50); Mean Corpuscular HGB Conc 32.2 g/dl (31.0-37.0); Mean Corpuscular Hemoglobin 34.4 pg (25.0-35.0); Mean Corpuscular Volume 107 fL (80-100); Monocytes # (Auto) 0.3 Thou/mm3 (0.0-0.8); Monocytes % (Auto) 8 % (0-12); Neutrophils # (Auto) 2.2 Thou/mm3 (1.8-7.7); Neutrophils % (Auto) 56 % (37-80); Nucleated Red Blood Cell % 0 /100 WBC (0); RDW Standard Deviation 81.5 fL (36.4-46.3); White Blood Count 3.9 Thou/mm3 (3.6-11.0)
[2024-05-31 07:38] LABS: Hemoglobin 8.6 g/dL (12.0-16.0); Platelet Count 36 Thou/mm3 (140-440)
[2024-05-31 08:01] LABS: Alanine Aminotransferase 13 U/L (10-49); Albumin, Serum 3.3 gm/dL (3.5-5.0); Albumin/Globulin Ratio 1.2 (1.2-2.2); Alkaline Phosphatase 77 U/L (46-116); Anion Gap 6 (7-16); Aspartate Amino Transferase 39 U/L (0-34); BUN/Creatinine Ratio 13 Ratio (12-20); Bilirubin,Total 4.5 mg/dL (0.3-1.2); Blood Urea Nitrogen 14 mg/dL (9-23); Calcium 8.5 mg/dL (8.3-10.6); Calcium (Corrected) 9.1 mg/dL (8.5-10.1); Carbon Dioxide 25.3 mMol/L (20.0-31.0); Chloride 109 mMol/L (98-107); Creatinine (Component) 1.1 mg/dL (0.6-1.3); Estimated Creatinine Clearance 56.4 mL/min (>60); Globulin 2.8 gm/dL (2.3-3.5); Glucose 130 mg/dL (74-106); Osmolality,Calculated 281 (275-295); Phosphorous 3.1 mg/dL (2.4-5.1); Potassium 5.6 mMol/L (3.4-5.1); Sodium 140 mMol/L (136-145); Total Protein 6.1 gm/dL (5.7-8.2); eGFR > 60 See Note
[2024-05-31 08:19] LABS: Glucose Estimated Average 91 mg/dL (80-131); Hemoglobin A1C 4.8 % Hgb (4.8-6.0)
[2024-05-31] MEDS: rifaximin 550 MG TABLET PO ×2 (09:08→20:50)
[2024-05-31] MEDS: PANTOPRAZOLE INJ 40 MG VIAL IV ×2 (09:08→20:50)
[2024-05-31] MEDS: NITROFURANTOIN MACRO 100 MG CAPSULE PO ×2 (09:08→20:50)
[2024-05-31] MEDS: cefTRIAXone/D5w 2gm 2 GM/50 ML BAG IV (09:08)
[2024-05-31] MEDS: HYDROcodone/APAP 5/325 TABLET 1 TAB PO ×2 (09:20→21:35)
[2024-05-31 09:27] LABS: Slide Review Platelets confirmed
[2024-05-31] MEDS: DEXTROSE 50%-WATER INJ 50 ML SYRINGE IV (11:06)
[2024-05-31] MEDS: SOD POLYSTYRENE SULFON SUSP 15 GM/60 ML BTL 30 GM PO (11:06)
[2024-05-31] MEDS: INSULIN HUM REGULAR 1 UNIT/0.01 ML (PER UNIT) 10 UNIT IV (11:07)
[2024-05-31] MEDS: INSULIN LISPRO (AdmeLOG) 1 UNIT/0.01 ML UNIT SC (12:06)
[2024-05-31] MEDS: PREPARATION H OINT 30 GM TUBE PR (12:07)
[2024-05-31] MEDS: ALBUTEROL RT 2.5 MG/0.5 ML NEBU INH (13:14)
--- NOTE | 2024-05-31 14:48 | ESPR_ITS ---
Documentation for date of: 05/31/24 Subjective Subjective Interval history: No overnight events. Patient seen and examined at bedside, resting comfortably. Patient reports overall subjective improvement in symptoms every day. Still notes generalized weakness and abdominal pain, baseline for patient. Denies fevers, chills, nausea, vomiting, chest pain, shortness of breath. Continue octreotide drip. Gave hyperkalemia cocktail. Added Preparation H. Exam Vital Signs Temp Pulse Resp BP Pulse Ox O2 Del Method 97.4 F 60 19 131/78 H 99 Room Air 05/31/24 12:00 05/31/24 13:17 05/31/24 13:17 05/31/24 12:00 05/31/24 13:05/31/24 12:00 Narrative Exam PE: Gen: Well-developed and well-nourished. HEENT: NCAT, PERRLA, EOMI, MMM, anicteric conjunctivae. CVS: normal S1 and S2. RRR. No M/R/G. Resp: CTA B/L. No rhonchi, rales, crackles or wheezing. Abd: soft, non-tender. Distended, diffusely tender. MSK: Good ROM in BUE & BLE. No edema or rash. Neuro: CN II-XII grossly intact. Strength 5/5 in BUE & BLE. A&O x 3. Objective Labs 05/31/24 07:15 05/31/24 07:15 Labs: Laboratory Results - last 24 hr 05/31/24 07:15 WBC 3.9 RBC 2.50 L Hgb 8.6 L Hct 26.7 L MCV 107 H MCH 34.4 MCHC 32.2 RDW Std Deviation 81.5 H Plt Count 36 L Neut % (Auto) 56 Lymph % (Auto) 31 [place] % (Auto) 8 Eos % (Auto) 5 Baso % (Auto) 1 Neut # (Auto) 2.2 Lymph # (Auto) 1.2 [place] # (Auto) 0.3 Eos # (Auto) 0.2 Baso # (Auto) 0.0 Immature Gran # (Auto) 0.01 H Absolute Nucleated RBC 0.00 Immature Gran % 0 Nucleated RBC % 0 Sodium 140 Potassium 5.6 H Chloride 109 H Carbon Dioxide 25.3 Anion Gap 6 L BUN 14 Creatinine 1.1 Estim Creat Clear Calc 56.4 L eGFR > 60 BUN/Creatinine Ratio [address] Glu mg/dL 91 Hemoglobin A1c 4.8 Calculated Osmolality 281 Calcium 8.5 Corrected Calcium 9.1 Phosphorus 3.1 Magnesium 2.0 Total Bilirubin 4.5 H AST 39 H ALT 13 Alkaline Phosphatase 77 D Total Protein 6.1 Albumin 3.3 L Globulin 2.8 Albumin/Globulin Ratio 1.2 Misc Test Result Platelets confirmed ABG Interpretation ABG results: 05/26/24 05/27/24 10:46 11:56 ABG pH 7.46 H 7.39 ABG pCO2 35 40 ABG pO2 91 33 L* D ABG HCO3 25 24 ABG O2 Saturation 97 97 ABG Base Excess 1 -1 Quality Measures Quality Measures VTE prophylaxis Assessment & Plan Assessment Current Active Medications: Generic Name Dose Route Start Last Admin Trade Name Freq PRN Reason Stop Dose Admin Acetaminophen 650 mg 05/27/24 10:14 05/31/24 05:26 Acetaminophen 325 Mg Tablet PO 06/26/24 10:13 650 mg Q4HR PRN Administration Pain 1-3 or Fever >100.3 Hydrocodone Bitart/Acetaminophen 1 tab 05/30/24 20:47 05/31/24 09:20 Hydrocodone/Apap 5/325 Tablet PO 06/04/24 20:46 1 tab Q12HR PRN Administration Pain 4-10 Dextrose 25 ml 05/31/24 04:29 Dextrose 50%-Water Inj 50 Ml Syringe IV 06/30/24 04:28 Q15MIN PRN BG 50-70 responsive npo pt Dextrose 50 ml 05/31/24 04:29 Dextrose 50%-Water Inj 50 Ml Syringe IV 06/30/24 04:28 Q15MIN PRN BG <50 OR BG <70 & pt unresponsive Glucagon 1 mg 05/31/24 04:29 Glucagon Inj 1 Mg Vial IM Q15MIN PRN BG <70, and no IV access Ceftriaxone Sodium/Dextrose 2 gm in 50 mls @ 100 mls/hr 05/28/24 10:12 05/31/24 12:17 Rocephin/D5w 2gm IV 06/04/24 10:11 Infused QDAY CELINA Infusion Octreotide Acetate 1,000 mcg/ 102 mls @ 5.1 mls/hr 05/29/24 07:46 05/31/24 00:03 Sodium Chloride IV 06/03/24 07:46 50 mcg/hr .Q20H CELINA 5.1 mls/hr Administration Protocol 50 MCG/HR Insulin Human Lispro 0 unit 05/31/24 06:00 05/31/24 12:06 Insulin Lispro (Admelog) 1 Unit/0.01 Ml Unit SC 06/30/24 05:59 2 unit Q6HR CELINA Administration Protocol Lactulose 20 gm 05/27/24 06:00 05/31/24 14:20 Lactulose Syrup 20 Gm/30 Ml Udc PO 06/26/24 05:59 20 gm TID CELINA Administration Protocol Midodrine 10 mg 05/31/24 14:19 Midodrine 5 Mg Tablet PO 06/26/24 10:14 TID CELINA Nitrofurantoin Macrocrystals 100 mg 05/27/24 11:45 05/31/24 09:08 Nitrofurantoin Macro 100 Mg Capsule PO 06/03/24 11:44 100 mg BID CELINA Administration Ondansetron HCl 4 mg 05/26/24 12:25 Ondansetron Inj 2 Mg/Ml Inj 2 Ml IV 06/25/24 12:24 Q6H PRN NAUSEA OR VOMITING Protocol Pantoprazole Sodium 40 mg 05/28/24 09:00 05/31/24 09:08 Pantoprazole Inj 40 Mg Vial IV 06/27/24 08:59 40 mg BID CELINA Administration Phenyleph/Shark Oil/Min Oil/Petrol 0 gm 05/31/24 10:48 05/31/24 12:07 Preparation H Oint 30 Gm Tube [place] 06/30/24 10:47 1 1000units BID PRN Administration HEMORRHOIDS Rifaximin 550 mg 05/26/24 12:30 05/31/24 09:08 Rifaximin 550 Mg Tablet PO 06/02/24 12:29 550 mg BID CELINA Administration Plan 53 y/o F with PMHx significant for cirrhosis, repeat episodes of hepatic encephalopathy who presented to ED from home with chief complaint of increased lethargy and confusion, admitted for hepatic encephalopathy. #Acute on chronic anemia Patient is history of anemia likely due to alcohol use end-stage liver disease. During course of admission patient had significant drop of hemoglobin requiring 1 unit packed red blood cells to be transfused patient denies melena, hematochezia, hematemesis. Hemoglobin stable the following day. GI consult placed due to concern for bleeding varices. Recommended octreotide drip - Monitor hemoglobin, transfuse again if needed - GI consult, appreciate recommendation - Octreotide drip x 5 days (complete 06/03) #Hypotension - improving Patient had 2 rapid responses for hypotension, MAP repeatedly below 65, changed MAP goal to 60 and above as patient has cirrhosis, takes midodrine at home, increase midodrine to 10 3 times daily, gave IV fluid boluses, albumin IV 100 g ordered, repeat H&H and type and screen was ordered as patient had downtrending hemoglobin this a.m. ICU was consulted, security dispatcher recommended another fluid bolus, repeat CMP and H&H in the afternoon. Patient was also noted to be acidotic on labs this morning, lactic acid noted to be elevated, IV fluid boluses given, repeat lactic acid down trended. EKG showed PACs, sinus bradycardia. Low voltage QRS complexes. No evidence of third spacing on physical exam, no peripheral edema or ascites noted. Hypotension likely secondary to hypovolemia. Patient blood pressure robi steady the following day. - MAP goal 60 and above - IV fluid boluses - Increase midodrine 10 mg 3 times daily - IV Albumin 100 g x1 #UTI Of note patient had VRE on urine culture during prior admission 2 weeks ago, sensitive to Macrobid, she was treated with fosfomycin x 1. Urinalysis this admission is concerning for UTI, will start patient on Macrobid. - Macrobid 100mg Bid #Hepatic encephalopathy-resolved #Decompensated liver failure #ESLD Patient is history of end-stage liver disease and recurrent hepatic encephalopathy, possibly due to noncompliance with medications. Patient reportedly has been having 1 bowel movement daily. Patient obtunded on presentation. Patient failed bedside swallow screen. Patient showing signs of end-stage liver disease, thrombocytopenia, elevated INR, decreased albumin. - Lactulose 20 g PO 3 times daily - Rifaximin 550 mg p.o. twice daily - Avoid hepatically metabolized medication - Albumin 25 g daily #LILY with hyperkalemia, improving #Hyperkalemia, likely due to octreotide Patient presented with notable LILY, possibly due to decreased intravascular volume. Patient also has hyperkalemia, 5.6. BUN 32, creatinine 2.0, EGFR 30. Patient received 1 L bolus and 1 g calcium gluconate in the ED. Patient given pending testing with an amp of D50, 1 dose Kayexalate. Repeat labs showed potassium down to 4.8. After initial hyperkalemia resolved, patient developed progressive hyperkalemia, likely due to octreotide drip. Received hyperkalemia cocktail of 10 insulin, amp of D50, albuterol x 1, and Kayexalate 30. - Telemonitoring - Daily labs - Avoid nephrotoxins - Renally dose medications #Hemorrhoids, patient history Patient reports history of hemorrhoids, states they are bothering her and patient. - Preparation H as needed #Bradycardia, chronic Patient bradycardic in the ED, heart rate 47?50. Patient has history of bradycardia, previous admissions frequently showing heart rate this low. EKG unremarkable. -Med/tele -Midodrine 10 mg p.o. 3 times daily DVT prophylaxis: SCDs GI prophylaxis: Protonix Diet: Carb consistent well Lines: Peripheral IV Code status: Full code Plan of care discussed with attending Dr. Hernandes. Rene Cui MD PGY?2
[2024-06-01] VITALS (11 sets, daily range): BP systolic 92–125; BP diastolic 49–68; PULSE 52–74; RESP 11–20; TEMP 36.3–36.7; O2SAT 95–99; BMI 30.1
[2024-06-01 05:39] LABS: Basophils % (Auto) 1 % (0-2.5); Eosinophils # (Auto) 0.1 Thou/mm3 (0.0-0.5); Eosinophils % (Auto) 4 % (0-10); Hematocrit 24.1 % (36.0-46.0); Immature Granulocytes % (Auto) 0 % (0-0); Immature Granulocytes Auto 0.01 Thou/mm3 (0.00-0.00); Lymphocytes # (Auto) 0.9 Thou/mm3 (1.0-4.8); Lymphocytes % (Auto) 38 % (10-50); Mean Corpuscular HGB Conc 33.2 g/dl (31.0-37.0); Mean Corpuscular Hemoglobin 34.5 pg (25.0-35.0); Mean Corpuscular Volume 104 fL (80-100); Monocytes # (Auto) 0.2 Thou/mm3 (0.0-0.8); Monocytes % (Auto) 9 % (0-12); Neutrophils # (Auto) 1.2 Thou/mm3 (1.8-7.7); Neutrophils % (Auto) 49 % (37-80); Nucleated Red Blood Cell % 0 /100 WBC (0); RDW Standard Deviation 77.6 fL (36.4-46.3); Red Blood Count 2.32 Miln/mm3 (4.00-5.20)
[2024-06-01 05:49] LABS: Platelet Count 29 Thou/mm3 (140-440); White Blood Count 2.5 Thou/mm3 (3.6-11.0)
[2024-06-01 05:51] LABS: Slide Review Platelets confirmed
[2024-06-01] MEDS: LACTULOSE SYRUP 20 GM/30 ML UDC PO (05:59)
[2024-06-01] MEDS: MIDODRINE 5 MG TABLET 10 MG PO ×2 (05:59→21:13)
[2024-06-01 06:06] LABS: Alanine Aminotransferase 10 U/L (10-49); Albumin, Serum 3.1 gm/dL (3.5-5.0); Albumin/Globulin Ratio 1.1 (1.2-2.2); Alkaline Phosphatase 88 U/L (46-116); Anion Gap 5 (7-16); Aspartate Amino Transferase 32 U/L (0-34); BUN/Creatinine Ratio 11 Ratio (12-20); Bilirubin,Total 4.1 mg/dL (0.3-1.2); Blood Urea Nitrogen 11 mg/dL (9-23); Calcium 8.2 mg/dL (8.3-10.6); Calcium (Corrected) 8.9 mg/dL (8.5-10.1); Carbon Dioxide 25.2 mMol/L (20.0-31.0); Chloride 112 mMol/L (98-107); Estimated Creatinine Clearance 62.1 mL/min (>60); Globulin 2.7 gm/dL (2.3-3.5); Glucose 115 mg/dL (74-106); Osmolality,Calculated 283 (275-295); Potassium 4.8 mMol/L (3.4-5.1); Sodium 142 mMol/L (136-145); Total Protein 5.8 gm/dL (5.7-8.2); eGFR > 60 See Note
[2024-06-01] MEDS: cefTRIAXone/D5w 2gm 2 GM/50 ML BAG IV (09:12)
[2024-06-01] MEDS: PANTOPRAZOLE INJ 40 MG VIAL IV ×2 (09:12→21:13)
[2024-06-01] MEDS: HYDROcodone/APAP 5/325 TABLET 1 TAB PO (09:12)
[2024-06-01] MEDS: rifaximin 550 MG TABLET PO ×2 (09:12→21:16)
[2024-06-01] MEDS: NITROFURANTOIN MACRO 100 MG CAPSULE PO ×2 (09:12→21:16)
--- NOTE | 2024-06-01 09:15 | PC.SS ---
rounding note: Patient to d/c 06/03/24 after drip is completed
[2024-06-01] MEDS: ACETAMINOPHEN 325 MG TABLET 650 MG PO (11:50)
--- NOTE | 2024-06-01 13:29 | ESPR_ITS ---
<Statement entered by Breonna Vines MD - 06/01/24 16:11> No acute overnight events. Patient is hemodynamically stable. CMP notable for severe thrombocytopenia (platelet count: 29k); currently no signs of active bleeding. Hyperkalemia has resolved. Heart rate is well-controlled. Patient remains stable without new complaints. Plan: Continue octreotide drip through July 03, per current plan. If patient remains clinically stable and without bleeding, anticipate discharge after completion of octreotide, with outpatient follow-up with GI/hepatology for further management. I discussed with and supervised the application support intern physician who took care of this patient. I personally saw and examined the patient and discussed the assessment and plan with the entire medicine team, including my attending , I agree with the assessment and plan as documented below Breonna Vines M.D. PGY-2 Disclaimer: Despite multiple revisions, due to the dictation software being used, the document bellow may not be free of grammatical errors including phonetic/typographic errors. However, this does not deter from our commitment to providing health care in the patient's best interest in mind. Documentation for date of: 06/01/24 Subjective Subjective Interval history: No overnight events. Patient seen and examined at bedside, resting comfortably. Denies fevers, chills, nausea, vomiting, chest pain, shortness of breath. Continue octreotide drip. Exam Vital Signs Temp Pulse Resp BP Pulse Ox O2 Del Method 97.8 F 52 L 16 108/60 96 Room Air 06/01/24 07:46 06/01/24 08:00 06/01/24 07:46 06/01/24 07:46 06/01/24 07:46 06/01/24 07:46 Narrative Exam PE: Gen: Well-developed and well-nourished. HEENT: NCAT, PERRLA, EOMI, MMM, anicteric conjunctivae. CVS: normal S1 and S2. RRR. No M/R/G. Resp: CTA B/L. No rhonchi, rales, crackles or wheezing. Abd: soft, non-tender. Distended, diffusely tender. MSK: Good ROM in BUE & BLE. No edema or rash. Neuro: CN II-XII grossly intact. Strength 5/5 in BUE & BLE. A&O x 3. Objective Labs 04/18/25 04:50 06/01/24 04:50 Labs: Laboratory Results - last 24 hr 06/01/24 04:50 WBC 2.5 L RBC 2.32 L Hgb 8.0 L Hct 24.1 L MCV 104 H MCH 34.5 MCHC 33.2 RDW Std Deviation 77.6 H Plt Count 29 L* Neut % (Auto) 49 Lymph % (Auto) 38 [place] % (Auto) 9 Eos % (Auto) 4 Baso % (Auto) 1 Neut # (Auto) 1.2 L Lymph # (Auto) 0.9 L [place] # (Auto) 0.2 Eos # (Auto) 0.1 Baso # (Auto) 0.0 Immature Gran # (Auto) 0.01 H Absolute Nucleated RBC 0.00 Immature Gran % 0 Nucleated RBC % 0 Sodium 142 Potassium 4.8 D Chloride 112 H Carbon Dioxide 25.2 Anion Gap 5 L BUN 11 Creatinine 1.0 Estim Creat Clear Calc 62.1 eGFR > 60 BUN/Creatinine Ratio 11 L Glucose 115 H Calculated Osmolality 283 Calcium 8.2 L Corrected Calcium 8.9 Phosphorus 3.0 Magnesium 2.0 Total Bilirubin 4.1 H AST 32 ALT 10 Alkaline Phosphatase 88 Total Protein 5.8 Albumin 3.1 L Globulin 2.7 Albumin/Globulin Ratio 1.1 L Misc Test Result Platelets confirmed ABG Interpretation ABG results: 05/26/24 05/27/24 10:46 11:56 ABG pH 7.46 H 7.39 ABG pCO2 35 40 ABG pO2 91 33 L* D ABG HCO3 25 24 ABG O2 Saturation 97 97 ABG Base Excess 1 -1 Quality Measures Quality Measures VTE prophylaxis Assessment & Plan Assessment Current Active Medications: Generic Name Dose Route Start Last Admin Trade Name Freq PRN Reason Stop Dose Admin Acetaminophen 650 mg 05/27/24 10:14 06/01/24 11:50 Acetaminophen 325 Mg Tablet PO 06/26/24 10:13 650 mg Q4HR PRN Administration Pain 1-3 or Fever >100.3 Hydrocodone Bitart/Acetaminophen 1 tab 05/30/24 20:47 06/01/24 09:12 Hydrocodone/Apap 5/325 Tablet PO 06/04/24 20:46 1 tab Q12HR PRN Administration Pain 4-10 Dextrose 25 ml 05/31/24 04:29 Dextrose 50%-Water Inj 50 Ml Syringe IV 06/30/24 04:28 Q15MIN PRN BG 50-70 responsive npo pt Dextrose 50 ml 05/31/24 04:29 Dextrose 50%-Water Inj 50 Ml Syringe IV 06/30/24 04:28 Q15MIN PRN BG <50 OR BG <70 & pt unresponsive Glucagon 1 mg 05/31/24 04:29 Glucagon Inj 1 Mg Vial IM Q15MIN PRN BG <70, and no IV access Ceftriaxone Sodium/Dextrose 2 gm in 50 mls @ 100 mls/hr 05/28/24 10:12 06/01/24 09:12 Rocephin/D5w 2gm IV 06/04/24 10:11 100 mls/hr QDAY CELINA Administration Octreotide Acetate 1,000 mcg/ 102 mls @ 5.1 mls/hr 05/29/24 07:46 05/31/24 19:29 Sodium Chloride IV 06/03/24 07:46 50 mcg/hr .Q20H CELINA 5.1 mls/hr Administration Protocol 50 MCG/HR Insulin Human Lispro 0 unit 05/31/24 06:00 06/01/24 11:53 Insulin Lispro (Admelog) 1 Unit/0.01 Ml Unit SC 06/30/24 05:59 Not Given Q6HR CELINA Protocol Lactulose 20 gm 05/27/24 06:00 06/01/24 05:59 Lactulose Syrup 20 Gm/30 Ml Udc PO 06/26/24 05:59 20 gm TID CELINA Administration Protocol Midodrine 10 mg 05/31/24 14:19 06/01/24 05:59 Midodrine 5 Mg Tablet PO 06/26/24 10:14 10 mg TID CELINA Administration Nitrofurantoin Macrocrystals 100 mg 05/27/24 11:45 06/01/24 09:12 Nitrofurantoin Macro 100 Mg Capsule PO 06/03/24 11:44 100 mg BID CELINA Administration Ondansetron HCl 4 mg 05/26/24 12:25 Ondansetron Inj 2 Mg/Ml Inj 2 Ml IV 06/25/24 12:24 Q6H PRN NAUSEA OR VOMITING Protocol Pantoprazole Sodium 40 mg 05/28/24 09:00 06/01/24 09:12 Pantoprazole Inj 40 Mg Vial IV 06/27/24 08:59 40 mg BID CELINA Administration Phenyleph/Shark Oil/Min Oil/Petrol 0 gm 05/31/24 10:48 05/31/24 12:07 Preparation H Oint 30 Gm Tube [place] 06/30/24 10:47 1 1000units BID PRN Administration HEMORRHOIDS Rifaximin 550 mg 05/26/24 12:30 06/01/24 09:12 Rifaximin 550 Mg Tablet PO 06/02/24 12:29 550 mg BID CELINA Administration Plan 53 y/o F with PMHx significant for cirrhosis, repeat episodes of hepatic encephalopathy who presented to ED from home with chief complaint of increased lethargy and confusion, admitted for hepatic encephalopathy. #Acute on chronic anemia Patient is history of anemia likely due to alcohol use end-stage liver disease. During course of admission patient had significant drop of hemoglobin requiring 1 unit packed red blood cells to be transfused patient denies melena, hematochezia, hematemesis. Hemoglobin stable the following day. GI consult placed due to concern for bleeding varices. Recommended octreotide drip - Monitor hemoglobin, transfuse again if needed - GI consult, appreciate recommendation - Octreotide drip x 5 days (complete 06/03) #Hypotension - improving Patient had 2 rapid responses for hypotension, MAP repeatedly below 65, changed MAP goal to 60 and above as patient has cirrhosis, takes midodrine at home, increase midodrine to 10 3 times daily, gave IV fluid boluses, albumin IV 100 g ordered, repeat H&H and type and screen was ordered as patient had downtrending hemoglobin this a.m. ICU was consulted, program project analyst recommended another fluid bolus, repeat CMP and H&H in the afternoon. Patient was also noted to be acidotic on labs this morning, lactic acid noted to be elevated, IV fluid boluses given, repeat lactic acid down trended. EKG showed PACs, sinus bradycardia. Low voltage QRS complexes. No evidence of third spacing on physical exam, no peripheral edema or ascites noted. Hypotension likely secondary to hypovolemia. Patient blood pressure robi steady the following day. - MAP goal 60 and above - IV fluid boluses - Increase midodrine 10 mg 3 times daily - IV Albumin 100 g x1 #UTI Of note patient had VRE on urine culture during prior admission 2 weeks ago, sensitive to Macrobid, she was treated with fosfomycin x 1. Urinalysis this admission is concerning for UTI, will start patient on Macrobid. - Macrobid 100mg Bid #Hepatic encephalopathy-resolved #Decompensated liver failure #ESLD Patient is history of end-stage liver disease and recurrent hepatic encephalopathy, possibly due to noncompliance with medications. Patient reportedly has been having 1 bowel movement daily. Patient obtunded on presentation. Patient failed bedside swallow screen. Patient showing signs of end-stage liver disease, thrombocytopenia, elevated INR, decreased albumin. - Lactulose 20 g PO 3 times daily - Rifaximin 550 mg p.o. twice daily - Avoid hepatically metabolized medication - Albumin 25 g daily #LILY with hyperkalemia, improving #Hyperkalemia, likely due to octreotide Patient presented with notable LILY, possibly due to decreased intravascular volume. Patient also has hyperkalemia, 5.6. BUN 32, creatinine 2.0, EGFR 30. Patient received 1 L bolus and 1 g calcium gluconate in the ED. Patient given pending testing with an amp of D50, 1 dose Kayexalate. Repeat labs showed potassium down to 4.8. After initial hyperkalemia resolved, patient developed progressive hyperkalemia, likely due to octreotide drip. Received hyperkalemia cocktail of 10 insulin, amp of D50, albuterol x 1, and Kayexalate 30. - Telemonitoring - Daily labs - Avoid nephrotoxins - Renally dose medications #Hemorrhoids, patient history Patient reports history of hemorrhoids, states they are bothering her and patient. - Preparation H as needed #Bradycardia, chronic Patient bradycardic in the ED, heart rate 47?50. Patient has history of bradycardia, previous admissions frequently showing heart rate this low. EKG unremarkable. -Med/tele -Midodrine 10 mg p.o. 3 times daily DVT prophylaxis: SCDs GI prophylaxis: Protonix Diet: Carb consistent well Lines: Peripheral IV Code status: Full code Plan of care discussed with senior resident Dr. Vines and attending Dr. Hernandes. Rene Cui MD PGY?2
[2024-06-01] MEDS: OCTREOTIDE ACET INJ 1,000 MCG in SODIUM CHLORIDE 0.9% 100 ML 5.1 MCG IV (15:42)
[2024-06-02] VITALS (10 sets, daily range): BP systolic 95–115; BP diastolic 48–72; PULSE 60–66; RESP 12–18; TEMP 36.1–36.9; O2SAT 96–98; BMI 32.5
[2024-06-02] MEDS: MIDODRINE 5 MG TABLET 10 MG PO ×3 (05:08→21:08)
[2024-06-02] MEDS: LACTULOSE SYRUP 20 GM/30 ML UDC PO (05:09)
[2024-06-02 05:26] LABS: Basophils % (Auto) 1 % (0-2.5); Eosinophils # (Auto) 0.2 Thou/mm3 (0.0-0.5); Eosinophils % (Auto) 4 % (0-10); Hematocrit 24.3 % (36.0-46.0); Immature Granulocytes % (Auto) 1 % (0-0); Immature Granulocytes Auto 0.02 Thou/mm3 (0.00-0.00); Lymphocytes # (Auto) 1.2 Thou/mm3 (1.0-4.8); Lymphocytes % (Auto) 34 % (10-50); Mean Corpuscular HGB Conc 32.9 g/dl (31.0-37.0); Mean Corpuscular Hemoglobin 34.2 pg (25.0-35.0); Mean Corpuscular Volume 104 fL (80-100); Monocytes # (Auto) 0.3 Thou/mm3 (0.0-0.8); Monocytes % (Auto) 8 % (0-12); Neutrophils # (Auto) 1.9 Thou/mm3 (1.8-7.7); Neutrophils % (Auto) 53 % (37-80); Nucleated Red Blood Cell % 0 /100 WBC (0); RDW Standard Deviation 79.4 fL (36.4-46.3); Red Blood Count 2.34 Miln/mm3 (4.00-5.20); White Blood Count 3.6 Thou/mm3 (3.6-11.0)
[2024-06-02 05:28] LABS: Platelet Count 36 Thou/mm3 (140-440)
[2024-06-02 05:59] LABS: Alanine Aminotransferase 11 U/L (10-49); Albumin, Serum 2.9 gm/dL (3.5-5.0); Alkaline Phosphatase 93 U/L (46-116); Anion Gap 4 (7-16); Aspartate Amino Transferase 33 U/L (0-34); BUN/Creatinine Ratio 12 Ratio (12-20); Bilirubin,Total 3.8 mg/dL (0.3-1.2); Blood Urea Nitrogen 11 mg/dL (9-23); Calcium 8.3 mg/dL (8.3-10.6); Calcium (Corrected) 9.2 mg/dL (8.5-10.1); Chloride 111 mMol/L (98-107); Creatinine (Component) 0.9 mg/dL (0.6-1.3); Estimated Creatinine Clearance 67.4 mL/min (>60); Globulin 2.8 gm/dL (2.3-3.5); Glucose 168 mg/dL (74-106); Magnesium 1.9 mg/dL (1.6-2.6); Osmolality,Calculated 286 (275-295); Phosphorous 2.7 mg/dL (2.4-5.1); Potassium 5.3 mMol/L (3.4-5.1); Sodium 142 mMol/L (136-145); Total Protein 5.7 gm/dL (5.7-8.2); eGFR > 60 See Note
[2024-06-02 07:05] LABS: Slide Review Platelets confirmed
[2024-06-02] MEDS: NITROFURANTOIN MACRO 100 MG CAPSULE PO ×2 (08:42→21:08)
[2024-06-02] MEDS: PANTOPRAZOLE INJ 40 MG VIAL IV (08:42)
[2024-06-02] MEDS: rifaximin 550 MG TABLET PO (08:42)
[2024-06-02] MEDS: cefTRIAXone/D5w 2gm 2 GM/50 ML BAG IV (08:43)
[2024-06-02] MEDS: PREPARATION H OINT 30 GM TUBE PR (08:51)
[2024-06-02] MEDS: INSULIN LISPRO (AdmeLOG) 1 UNIT/0.01 ML UNIT SC ×2 (11:21→23:59)
[2024-06-02] MEDS: OCTREOTIDE ACET INJ 1,000 MCG in SODIUM CHLORIDE 0.9% 100 ML 5.1 MCG IV (11:29)
--- NOTE | 2024-06-02 12:16 | PD.RESPRO ---
Documentation for date of: 06/02/24 Subjective Subjective Interval history: No overnight events. Patient seen and examined at bedside, resting comfortably. Denies fevers, chills, nausea, vomiting, chest pain, shortness of breath. Continue octreotide drip. Exam Vital Signs Temp Pulse Resp BP Pulse Ox O2 Del Method 97.0 F 63 17 104/63 96 Room Air 06/02/24 08:00 06/02/24 08:00 06/02/24 08:00 06/02/24 08:00 06/02/24 08:00 06/02/24 08:00 Narrative Exam PE: Gen: Well-developed and well-nourished. HEENT: NCAT, PERRLA, EOMI, MMM, anicteric conjunctivae. CVS: normal S1 and S2. RRR. No M/R/G. Resp: CTA B/L. No rhonchi, rales, crackles or wheezing. Abd: soft, non-tender. Distended, diffusely tender. MSK: Good ROM in BUE & BLE. No edema or rash. Neuro: CN II-XII grossly intact. Strength 5/5 in BUE & BLE. A&O x 3. Objective Labs 06/03/24 05:11 06/03/24 05:11 Labs: Laboratory Results - last 24 hr 06/02/24 04:13 WBC 3.6 D RBC 2.34 L Hgb 8.0 L Hct 24.3 L MCV 104 H MCH 34.2 MCHC 32.9 RDW Std Deviation 79.4 H Plt Count 36 L D Neut % (Auto) 53 Lymph % (Auto) 34 [place] % (Auto) 8 Eos % (Auto) 4 Baso % (Auto) 1 Neut # (Auto) 1.9 Lymph # (Auto) 1.2 [place] # (Auto) 0.3 Eos # (Auto) 0.2 Baso # (Auto) 0.0 Immature Gran # (Auto) 0.02 H Absolute Nucleated RBC 0.00 Immature Gran % 1 H Nucleated RBC % 0 Sodium 142 Potassium 5.3 H D Chloride 111 H Carbon Dioxide 27.0 Anion Gap 4 L BUN 11 Creatinine 0.9 Estim Creat Clear Calc 67.4 eGFR > 60 BUN/Creatinine Ratio 12 Glucose 168 H D Calculated Osmolality 286 Calcium 8.3 Corrected Calcium 9.2 Phosphorus 2.7 Magnesium 1.9 Total Bilirubin 3.8 H AST 33 ALT 11 Alkaline Phosphatase 93 Total Protein 5.7 Albumin 2.9 L Globulin 2.8 Albumin/Globulin Ratio 1.0 L Misc Test Result Platelets confirmed ABG Interpretation ABG results: 05/26/24 05/27/24 10:46 11:56 ABG pH 7.46 H 7.39 ABG pCO2 35 40 ABG pO2 91 33 L* D ABG HCO3 25 24 ABG O2 Saturation 97 97 ABG Base Excess 1 -1 Quality Measures Quality Measures VTE prophylaxis Assessment & Plan Assessment Current Active Medications: Generic Name Dose Route Start Last Admin Trade Name Freq PRN Reason Stop Dose Admin Acetaminophen 650 mg 05/27/24 10:14 06/01/24 11:50 Acetaminophen 325 Mg Tablet PO 06/26/24 10:13 650 mg Q4HR PRN Administration Pain 1-3 or Fever >100.3 Hydrocodone Bitart/Acetaminophen 1 tab 05/30/24 20:47 06/01/24 09:12 Hydrocodone/Apap 5/325 Tablet PO 06/04/24 20:46 1 tab Q12HR PRN Administration Pain 4-10 Dextrose 25 ml 05/31/24 04:29 Dextrose 50%-Water Inj 50 Ml Syringe IV 06/30/24 04:28 Q15MIN PRN BG 50-70 responsive npo pt Dextrose 50 ml 05/31/24 04:29 Dextrose 50%-Water Inj 50 Ml Syringe IV 06/30/24 04:28 Q15MIN PRN BG <50 OR BG <70 & pt unresponsive Glucagon 1 mg 05/31/24 04:29 Glucagon Inj 1 Mg Vial IM Q15MIN PRN BG <70, and no IV access Ceftriaxone Sodium/Dextrose 2 gm in 50 mls @ 100 mls/hr 05/28/24 10:12 06/02/24 08:43 Rocephin/D5w 2gm IV 06/04/24 10:11 100 mls/hr QDAY CELINA Administration Octreotide Acetate 1,000 mcg/ 102 mls @ 5.1 mls/hr 05/29/24 07:46 06/02/24 11:29 Sodium Chloride IV 06/03/24 07:46 50 mcg/hr .Q20H CELINA 5.1 mls/hr Administration Protocol 50 MCG/HR Insulin Human Lispro 0 unit 05/31/24 06:00 06/02/24 11:21 Insulin Lispro (Admelog) 1 Unit/0.01 Ml Unit SC 06/30/24 05:59 2 unit Q6HR CELINA Administration Protocol Lactulose 20 gm 05/27/24 06:00 06/02/24 05:09 Lactulose Syrup 20 Gm/30 Ml Udc PO 06/26/24 05:59 20 gm TID CELINA Administration Protocol Midodrine 10 mg 05/31/24 14:19 06/02/24 05:08 Midodrine 5 Mg Tablet PO 06/26/24 10:14 10 mg TID CELINA Administration Nitrofurantoin Macrocrystals 100 mg 05/27/24 11:45 06/02/24 08:42 Nitrofurantoin Macro 100 Mg Capsule PO 06/03/24 11:44 100 mg BID CELINA Administration Ondansetron HCl 4 mg 05/26/24 12:25 Ondansetron Inj 2 Mg/Ml Inj 2 Ml IV 06/25/24 12:24 Q6H PRN NAUSEA OR VOMITING Protocol Pantoprazole Sodium 40 mg 06/03/24 09:00 Pantoprazole 40 Mg Tablet PO 07/03/24 08:59 QDAY [facility] Phenyleph/Shark Oil/Min Oil/Petrol 0 gm 05/31/24 10:48 06/02/24 08:51 Preparation H Oint 30 Gm Tube MD 06/30/24 10:47 1 1000units BID PRN Administration HEMORRHOIDS Rifaximin 550 mg 05/26/24 12:30 06/02/24 08:42 Rifaximin 550 Mg Tablet PO 06/02/24 12:29 550 mg BID CELINA Administration Plan 53 y/o F with PMHx significant for cirrhosis, repeat episodes of hepatic encephalopathy who presented to ED from home with chief complaint of increased lethargy and confusion, admitted for hepatic encephalopathy. #Acute on chronic anemia Patient is history of anemia likely due to alcohol use end-stage liver disease. During course of admission patient had significant drop of hemoglobin requiring 1 unit packed red blood cells to be transfused patient denies melena, hematochezia, hematemesis. Hemoglobin stable the following day. GI consult placed due to concern for bleeding varices. Recommended octreotide drip - Monitor hemoglobin, transfuse again if needed - GI consult, appreciate recommendation - Octreotide drip x 5 days (complete 06/03) #Hypotension - improving Patient had 2 rapid responses for hypotension, MAP repeatedly below 65, changed MAP goal to 60 and above as patient has cirrhosis, takes midodrine at home, increase midodrine to 10 3 times daily, gave IV fluid boluses, albumin IV 100 g ordered, repeat H&H and type and screen was ordered as patient had downtrending hemoglobin this a.m. ICU was consulted, insurance verification representative recommended another fluid bolus, repeat CMP and H&H in the afternoon. Patient was also noted to be acidotic on labs this morning, lactic acid noted to be elevated, IV fluid boluses given, repeat lactic acid down trended. EKG showed PACs, sinus bradycardia. Low voltage QRS complexes. No evidence of third spacing on physical exam, no peripheral edema or ascites noted. Hypotension likely secondary to hypovolemia. Patient blood pressure robi steady the following day. - MAP goal 60 and above - IV fluid boluses - Increase midodrine 10 mg 3 times daily - IV Albumin 100 g x1 #UTI Of note patient had VRE on urine culture during prior admission 2 weeks ago, sensitive to Macrobid, she was treated with fosfomycin x 1. Urinalysis this admission is concerning for UTI, will start patient on Macrobid. - Macrobid 100mg Bid #Hepatic encephalopathy-resolved #Decompensated liver failure #ESLD Patient is history of end-stage liver disease and recurrent hepatic encephalopathy, possibly due to noncompliance with medications. Patient reportedly has been having 1 bowel movement daily. Patient obtunded on presentation. Patient failed bedside swallow screen. Patient showing signs of end-stage liver disease, thrombocytopenia, elevated INR, decreased albumin. - Lactulose 20 g PO 3 times daily - Rifaximin 550 mg p.o. twice daily - Avoid hepatically metabolized medication - Albumin 25 g daily #LILY with hyperkalemia, improving #Hyperkalemia, likely due to octreotide Patient presented with notable LILY, possibly due to decreased intravascular volume. Patient also has hyperkalemia, 5.6. BUN 32, creatinine 2.0, EGFR 30. Patient received 1 L bolus and 1 g calcium gluconate in the ED. Patient given pending testing with an amp of D50, 1 dose Kayexalate. Repeat labs showed potassium down to 4.8. After initial hyperkalemia resolved, patient developed progressive hyperkalemia, likely due to octreotide drip. Received hyperkalemia cocktail of 10 insulin, amp of D50, albuterol x 1, and Kayexalate 30. - Telemonitoring - Daily labs - Avoid nephrotoxins - Renally dose medications #Hemorrhoids, patient history Patient reports history of hemorrhoids, states they are bothering her and patient. - Preparation H as needed #Bradycardia, chronic Patient bradycardic in the ED, heart rate 47?50. Patient has history of bradycardia, previous admissions frequently showing heart rate this low. EKG unremarkable. -Med/tele -Midodrine 10 mg p.o. 3 times daily DVT prophylaxis: SCDs GI prophylaxis: Protonix Diet: Carb consistent well Lines: Peripheral IV Code status: Full code Plan of care discussed with attending Dr. Morrison. Rene Cui MD PGY?2 Attending Provider Attestation/Addendum I reviewed labs, imaging, EKG, home medications and prior available records. Face to face evaluation was performed by me. I have personally examined the patient and discussed assessment and plan with the IM team. I reviewed the resident note and agree with the plan with exceptions as below. Hepatic encephalopathy Liver cirrhosis: Presumably alcoholic Thrombocytopenia GI bleed, likely upper Continue octreotide for total of 5 days Continue PPI twice daily Continue lactulose and rifaximin Monitor H&H Avoid alcohol use Outpatient follow-up with hepatology/liver transplant
[2024-06-02] MEDS: HYDROcodone/APAP 5/325 TABLET 1 TAB PO (14:10)
[2024-06-02] MEDS: ACETAMINOPHEN 325 MG TABLET 650 MG PO (21:08)
[2024-06-03] VITALS (7 sets, daily range): BP systolic 94–123; BP diastolic 55–68; PULSE 52–57; RESP 13–16; TEMP 36.3–36.9; O2SAT 94–97; BMI 30.7
[2024-06-03] MEDS: LACTULOSE SYRUP 20 GM/30 ML UDC PO (05:40)
[2024-06-03] MEDS: MIDODRINE 5 MG TABLET 10 MG PO (05:40)
[2024-06-03 05:44] LABS: Basophils % (Auto) 1 % (0-2.5); Eosinophils # (Auto) 0.2 Thou/mm3 (0.0-0.5); Eosinophils % (Auto) 5 % (0-10); Hematocrit 26.1 % (36.0-46.0); Immature Granulocytes % (Auto) 0 % (0-0); Immature Granulocytes Auto 0.01 Thou/mm3 (0.00-0.00); Lymphocytes # (Auto) 1.4 Thou/mm3 (1.0-4.8); Lymphocytes % (Auto) 42 % (10-50); Mean Corpuscular Hemoglobin 34.4 pg (25.0-35.0); Mean Corpuscular Volume 104 fL (80-100); Monocytes # (Auto) 0.3 Thou/mm3 (0.0-0.8); Monocytes % (Auto) 8 % (0-12); Neutrophils # (Auto) 1.4 Thou/mm3 (1.8-7.7); Neutrophils % (Auto) 43 % (37-80); Nucleated Red Blood Cell % 0 /100 WBC (0); RDW Standard Deviation 84.9 fL (36.4-46.3); White Blood Count 3.2 Thou/mm3 (3.6-11.0)
[2024-06-03] MEDS: HYDROcodone/APAP 5/325 TABLET 1 TAB PO (05:47)
[2024-06-03 05:55] LABS: Hemoglobin 8.6 g/dL (12.0-16.0); Platelet Count 32 Thou/mm3 (140-440)
[2024-06-03 05:56] LABS: Slide Review Platelets confirmed
[2024-06-03 06:41] LABS: Alanine Aminotransferase 14 U/L (10-49); Alkaline Phosphatase 107 U/L (46-116); Anion Gap 6 (7-16); Aspartate Amino Transferase 39 U/L (0-34); BUN/Creatinine Ratio 13 Ratio (12-20); Bilirubin,Total 4.2 mg/dL (0.3-1.2); Blood Urea Nitrogen 12 mg/dL (9-23); Calcium 8.2 mg/dL (8.3-10.6); Carbon Dioxide 25.3 mMol/L (20.0-31.0); Chloride 112 mMol/L (98-107); Creatinine (Component) 0.9 mg/dL (0.6-1.3); Estimated Creatinine Clearance 70.2 mL/min (>60); Globulin 2.9 gm/dL (2.3-3.5); Glucose 116 mg/dL (74-106); Osmolality,Calculated 285 (275-295); Potassium 4.9 mMol/L (3.4-5.1); Sodium 143 mMol/L (136-145); Total Protein 5.9 gm/dL (5.7-8.2); eGFR > 60 See Note
[2024-06-03] MEDS: cefTRIAXone/D5w 2gm 2 GM/50 ML BAG IV (08:33)
[2024-06-03] MEDS: PANTOPRAZOLE 40 MG TABLET PO (08:33)
[2024-06-03] MEDS: NITROFURANTOIN MACRO 100 MG CAPSULE PO (08:33)
--- NOTE | 2024-06-03 15:16 | ESDS_ITS ---
Planned Discharge Date 06/03/24 DS: Providers Provider Date of admission: 05/26/24 12:25 Primary care physician: OPAL Salgado Admitting Provider: Geoff Hernandes MD Attending Provider on Admission: Geoff Hernandes MD Consults: 05/27/24 11:34 Consult to Human Services Supervisor Stat Comment: Consulting Provider: Bita Mckeon 05/28/24 08:08 Consult to Gastroenterology Routine Comment: Consulting Provider: Brenda Culp 05/30/24 01:07 Referral Wound Care Stat Comment: noted and pic 05/26/24, coccyx stage 2 05/30/24 01:09 Referral Registered Dietitian Stat Comment: noted and pic 05/26/24, stage 2 coccyx Attending Provider on DC: MD Prince Discharging Provider: Marielos Stephens MD DS: Diagnosis Problem List Completed Was Problem List Reviewed/Reconciled?: Yes Hospital Course Hospital Course Hospital course: The patient is a 53 y/o F with past medical history significant for cirrhosis, repeat episodes of hepatic encephalopathy who presented to ED from home with chief complaint of increased lethargy and confusion, admitted for hepatic encephalopathy. During the course of her hospital stay she had rapid responses for hypotension, midodrine was increased to 10 mg 3 times daily, also noted to have vancomycin-resistant Enterococcus on urine culture, the urinalysis was benign, sensitive to Macrobid, started patient on Macrobid, completed 5 days of treatment with Macrobid 100 mg twice daily. Also found to have anemia, acute on chronic, concern for GI bleed as history of esophageal varices and gastritis. Received 1 PRBC transfusion, per GI recommendations started patient on octreotide drip for 5 days, patient completed 5 days of octreotide drip during hospital stay. Hepatic encephalopathy treated with lactulose, and rifaximin. The patient is stable, ambulatory, afebrile and tolerating Per oral medications at the time of discharge. The patient understood and agreed to the treatment plan. Recommended take midodrine 10 mg 3 times daily for low blood pressure, adjusted medication dose propranolol 20 mg twice daily instead of 40 mg once daily to prevent sudden hypotension. Also recommend discontinuing metformin due to liver failure and risk of adverse events. Recommend continuing with blood glucose checks and following up with primary care physician within 3 to 5 days of discharge from hospital. Also recommend referral for liver transplant from your primary doctor to liver transplant center or orthopedic radiologic technologist. In case of worsening symptoms, please return to emergency room. Please follow up with Dr. Stephens at the [facility] to establish primary care. you may need to call the office to setup appointment for Tuesday. [facility] [address] [place] [address] ------ #Acute on chronic anemia Patient is history of anemia likely due to alcohol use end-stage liver disease. During course of admission patient had significant drop of hemoglobin requiring 1 unit packed red blood cells to be transfused patient denies melena, hematochezia, hematemesis. Hemoglobin stable the following day. GI consult placed due to concern for bleeding varices. Recommended octreotide drip - Monitor hemoglobin, transfuse again if needed - GI consult, appreciate recommendation - Octreotide drip x 5 days (complete 06/03) #Hypotension - improving Patient had 2 rapid responses for hypotension, MAP repeatedly below 65, changed MAP goal to 60 and above as patient has cirrhosis, takes midodrine at home, increase midodrine to 10 3 times daily, gave IV fluid boluses, albumin IV 100 g ordered, repeat H&H and type and screen was ordered as patient had downtrending hemoglobin this a.m. ICU was consulted, pattern vault clerk recommended another fluid bolus, repeat CMP and H&H in the afternoon. Patient was also noted to be acidotic on labs this morning, lactic acid noted to be elevated, IV fluid boluses given, repeat lactic acid down trended. EKG showed PACs, sinus bradycardia. Low voltage QRS complexes. No evidence of third spacing on physical exam, no peripheral edema or ascites noted. Hypotension likely secondary to hypovolemia. Patient blood pressure robi steady the following day. - MAP goal 60 and above - IV fluid boluses - Increase midodrine 10 mg 3 times daily - IV Albumin 100 g x1 #UTI Of note patient had VRE on urine culture during prior admission 2 weeks ago, sensitive to Macrobid, she was treated with fosfomycin x 1. Urinalysis this admission is concerning for UTI, will start patient on Macrobid. - Macrobid 100mg Bid #Hepatic encephalopathy-resolved #Decompensated liver failure #ESLD Patient is history of end-stage liver disease and recurrent hepatic encephal opathy, possibly due to noncompliance with medications. Patient reportedly has been having 1 bowel movement daily. Patient obtunded on presentation. Patient failed bedside swallow screen. Patient showing signs of end-stage liver disease, thrombocytopenia, elevated INR, decreased albumin. - Lactulose 20 g PO 3 times daily - Rifaximin 550 mg p.o. twice daily - Avoid hepatically metabolized medication - Albumin 25 g daily #LILY with hyperkalemia, improving #Hyperkalemia, likely due to octreotide Patient presented with notable LILY, possibly due to decreased intravascular volume. Patient also has hyperkalemia, 5.6. BUN 32, creatinine 2.0, EGFR 30. Patient received 1 L bolus and 1 g calcium gluconate in the ED. Patient given pending testing with an amp of D50, 1 dose Kayexalate. Repeat labs showed potassium down to 4.8. After initial hyperkalemia resolved, patient developed progressive hyperkalemia, likely due to octreotide drip. Received hyperkalemia cocktail of 10 insulin, amp of D50, albuterol x 1, and Kayexalate 30. - Telemonitoring - Daily labs - Avoid nephrotoxins - Renally dose medications #Hemorrhoids, patient history Patient reports history of hemorrhoids, states they are bothering her and patient. - Preparation H as needed #Bradycardia, chronic Patient bradycardic in the ED, heart rate 47?50. Patient has history of bradycardia, previous admissions frequently showing heart rate this low. EKG unremarkable. -Med/tele -Midodrine 10 mg p.o. 3 times daily Plan of care discussed with attending Dr. Morrison. Kat HERBERT PGY?2 Time Spent with Patient Time attestation: Total time spent providing and/or coordinating discharge services: Time spent: Greater than 30 minutes Exam Vital Signs Temp Pulse Resp BP Pulse Ox O2 Del Method 98.1 F 52 L 14 123/68 96 Room Air 06/03/24 12:00 06/03/24 12:00 06/03/24 12:06/03/24 12:06/03/24 12:06/03/24 12:00 Narrative Exam PE: Gen: Well-developed and well-nourished. HEENT: NCAT, PERRLA, EOMI, MMM, anicteric conjunctivae. CVS: normal S1 and S2. RRR. No M/R/G. Resp: CTA B/L. No rhonchi, rales, crackles or wheezing. Abd: soft, non-tender. MSK: Good ROM in BUE & BLE. No edema or rash. Neuro: CN II-XII grossly intact. Strength 5/5 in BUE & BLE. A&O x 3. Discharge Plan Plan Patient Disposition: HOME (Self Care) Patient condition on transfer: Stable Care Plan Goals: Recommended take midodrine 10 mg 3 times daily for low blood pressure, adjusted medication dose propranolol 20 mg twice daily instead of 40 mg once daily to prevent sudden hypotension. Also recommend discontinuing metformin due to liver failure and risk of adverse events. Recommend continuing with blood glucose checks and following up with primary care physician within 3 to 5 days of discharge from hospital. Also recommend referral for liver transplant from your primary doctor to liver transplant center or orthopedic radiologic technologist. In case of worsening symptoms, please return to emergency room. Please follow up with Dr. Stephens at the [facility] to establish primary care. you may need to call the office to setup appointment for Tuesday. [facility] [address] [place] [address] Prescriptions/Referrals Prescriptions/Med Rec: New propranolol 20 mg tablet 20 mg PO BID Qty: 30 0RF midodrine 10 mg tablet 10 mg PO TID 14 Days Qty: 42 0RF Rx Instructions: do not give last dose of day after 6PM or within 4 hrs of bedtime pantoprazole [Protonix] 40 mg tablet,delayed release (DR/EC) 40 mg PO BID Qty: 30 0RF Continued lactulose 20 gram/30 mL Solution 30 g PO TID 30 Days Qty: 4050 1RF methocarbamol 750 mg Tablet 750 mg PO BID ergocalciferol (vitamin D2) [Vitamin D2] 1,250 mcg (50,000 unit) Capsule 1,250 mcg PO QWEEK Xifaxan 550 mg tablet 550 mg PO BID Patient Comments: TAKE 1 TABLET BY MOUTH TWICE A DAY FOR 1 MONTH multivitamin with folic acid [Daily-Dena (with folic acid)] 400 mcg tablet 1 tab PO QAM Qty: 30 0RF furosemide [Lasix] 20 mg tablet 20 mg PO QDAY Qty: 90 0RF Rx Instructions: Hold if SBP drops below 100 and DBP below 60 mmHg multivitamin Tablet 1 tab PO QDAY Patient Comments: TAKE 1 TABLET BY MOUTH ONCE DAILY EVERY MORNING AT 9AM mirtazapine 15 mg tablet 15 mg PO HS Patient Comments: TAKE 1 TABLET BY MOUTH AT BEDTIME hydrocodone-acetaminophen 5-325 mg tablet PO Q12H PRN (Reason: pain) Patient Comments: TAKE 1 TABLET BY MOUTH ONCE A DAY NEEDED FOR PAIN. DOSE TAMPERING Discontinued pantoprazole 40 mg tablet,delayed release (DR/EC) 40 mg PO QDAY Qty: 30 0RF midodrine 5 mg tablet 5 mg PO TID metformin 500 mg tablet 500 mg PO BID Patient Comments: TAKE 1 TABLET BY MOUTH TWICE DAILY propranolol 40 mg tablet 40 mg PO QDAY Patient Comments: TAKE 1 TABLET BY MOUTH DAILY Referrals: Ingrid Darling FNP-C [Primary Care Provider] - Patient/Caregiver Discharge Instructions Education Materials: Hepatic Encephalopathy Print Language: Nepalese Stand Alone Forms: [employer] Award Info., Patient Portal Info Letter Discharge Order Discharge Orders: Discharge (Routine); Ordered 06/03/24 Ordered By: Marielos Stephens Quality Discharge Quality Measures VTE prophylaxis Attestestation Attestation I reviewed labs, imaging, EKG, home medications and prior available records. Face to face evaluation was performed by me. I have personally examined the patient and discussed assessment and plan with the IM team. I reviewed the resident note and agree with the plan with exceptions as below. Hepatic encephalopathy Liver cirrhosis: Presumably alcoholic Thrombocytopenia GI bleed, likely upper Continue octreotide for total of 5 days Continue PPI twice daily Continue lactulose and rifaximin Monitor H&H Avoid alcohol use Outpatient follow-up with hepatology/liver transplant
== END 2024-06-03 13:20 | disposition home or self-care (01) | DRG 280 ==
LOC: SERX 12:51 → SERHOLD 12:52 → S2NX 16:29 → S3SX 06-01 22:23
PROVIDERS: Student in an Organized Health Care Education/Training Program; Admitting Provider Internal Medicine; Emergency Provider Emergency Medicine; Visit Provider Internal Medicine
DX: K70.40 Alcoholic hepatic failure without coma (principal); F10.10 Alcohol abuse, uncomplicated; K76.82 Hepatic encephalopathy; K70.30 Alcoholic cirrhosis of liver without ascites; E87.5 Hyperkalemia; N17.9 Acute kidney failure, unspecified; R00.1 Bradycardia, unspecified; N39.0 Urinary tract infection, site not specified; I95.9 Hypotension, unspecified; E87.20 Acidosis, unspecified; D69.6 Thrombocytopenia, unspecified; I85.11 Secondary esophageal varices with bleeding; K64.9 Unspecified hemorrhoids; E86.1 Hypovolemia; E86.0 Dehydration; Z16.21 Resistance to vancomycin; Z91.148 Patient's other noncompliance with medication regimen for other reason; Z79.84 Long term (current) use of oral hypoglycemic drugs; Z79.899 Other long term (current) drug therapy
CPT/HCPCS: 36415; 36600; 70450; 71045; 76700; 80053; 80069; 80307; 80320; 81001; 82140; 82270; 82803; 83036; 83605; 83690; 83735; 83880; 84100; 84484; 85014; 85018; 85025; 85610; 85730; 86850; 86900; 86901; 86923; 93005; 93225; 94640; 94664; 96361; 96367; 96374; 99285; J0612; J0696; J1815; J2354; J2470; J3490; J7030; J7050; J7120; P9016; P9047; A9270; G0480

== ENCOUNTER 2024-06-08 08:55 | Outpatient (AMB) | payer MEDICAID, SELFPAY ==
[2024-06-08 09:16] VITALS: BP 100/64; PULSE 47; RESP 16; TEMP 36.8; O2SAT 98; BMI 27.6
--- NOTE | 2024-06-08 09:16 | ACNOTE_ITS ---
Vital Signs 06/08/24 09:16 Height 1.57 m Height Method Stated Weight 68.039 kg Weight Measurement Method Estimated by Patient BMI 27.6 BP 100/64 Blood Pressure Source Automatic Cuff Blood Pressure Location Right Upper Arm Position Sitting Respiration 16 Pulse 47 L Pulse Source Monitor Temp 98.2 F Temp Source Temporal Artery Scan Pulse Oximetry (%) 98 Oxygen Delivery Method Room Air Allergies/Meds Allergies & Medications Allergies latex Allergy (Severe, Verified 06/08/24 09:17) Hives Medication Reconciliation rifaximin 550 mg tablet (Xifaxan) 550 mg PO BID 01/12/24 [History Confirmed 06/08/24] lactulose 20 gram/30 mL oral solution 30 g (45 mL) PO TID 30 days #4,050 mL 01/31/24 [Rx Confirmed 06/08/24] ergocalciferol (vitamin D2) 1,250 mcg (50,000 unit) capsule (Vitamin D2) 1,250 mcg PO QWEEK 02/06/24 [History Confirmed 06/08/24] methocarbamol 750 mg tablet 750 mg PO BID 02/06/24 [History Confirmed 06/08/24] multivitamin with folic acid 400 mcg tablet (Daily-Dena (with folic acid)) 1 tab PO QAM #30 tabs 04/10/24 [Rx Confirmed 06/08/24] furosemide 20 mg tablet (Lasix) 20 mg PO QDAY #90 tabs 04/16/24 [Rx Confirmed 06/08/24] multivitamin 1 tab PO QDAY 05/11/24 [History Confirmed 06/08/24] mirtazapine 15 mg tablet 15 mg PO HS 05/12/24 [History Confirmed 06/08/24] hydrocodone 5 mg-acetaminophen 325 mg tablet tab PO Q12H PRN pain 05/26/24 [History Confirmed 06/08/24] midodrine 10 mg tablet 10 mg PO TID 2 weeks #42 tabs 06/03/24 [Rx Confirmed 06/08/24] pantoprazole 40 mg tablet,delayed release (Protonix) 40 mg PO BID #30 tabs 06/03/24 [Rx Confirmed 06/08/24] propranolol 20 mg tablet 10 mg (1/2 x 20 mg) PO BID #30 tabs 06/08/24 [Rx] spironolactone 25 mg tablet 50 mg (2 x 25 mg) PO QDAY #30 tabs 06/08/24 [Rx] MA Intake Visit Data Collection New Patient or Established: Established Patient (seen at [facility] within 3 years) Seen by Clinical Staff ONLY (RN/BRIDGET): No Pain Present Currently: No Pain scale:: 0 Pain Scale Used: [place]-Nash/Numerical Building Coordinator Required: No PCP or OBGYN visit in last 3 months: No Hx Now: No Do You Feel Safe at Home: Yes Authorities Contacted: N/A Smoking Status Smoking Status: Never smoker Immunization / Flu Flu Vaccine in the Last 12 Months: No Flu Vaccine Exclusion Criteria: No Exclusion Criteria Past Medical History Past Medical History NEUROLOGIC: Positive Neurological Disorders, Migraine and Spinal Cord Injury; Negative Seizures CARDIAC: Positive Cardiac Disorders and Hypotension; Negative Congestive Heart Failure RESPIRATORY: Negative Chronic Obstructive Pulmonary Disease (COPD) or Asthma GASTROINTESTINAL: Positive Gastrointestinal Disorders, Cirrhosis, Gastrointestinal Bleed, Esophageal Varices and Hemorrhoids GENITOURINARY: Negative Renal Disease REPRODUCTIVE: Positive Endometriosis and Previous Pregnancies ENDOCRINE: Positive Endocrine Disorders and Diabetes Mellitus Type 2; Negative Diabetes Mellitus Type 1 HEMATOLOGIC: Positive Blood Disorders and Anemia; Negative Sickle Cell Disease PSYCHO/SOCIAL: Positive Depression and Anxiety OTHER HISTORY: Positive Blood Transfusions, Chicken Pox and Measles; Negative Autoimmune Disease, Blood Transfusion Reaction, Anesthesia Reactions or Cancer Family History FAMILY HISTORY: Positive Family Psychiatric Problems and Family Cancer; Negative Family Respiratory Disorders, Family Cardiac Disorders, Family Gastrointestinal Problems, Family Surgery or Family Anesthesia Reaction Surgical History SURGICAL: Positive Section Social History SMOKING STATUS: Smoking status: Never smoker SECOND HAND EXPOSURE: second hand exposure: No ALCOHOL: Alcohol Intake: Former ALCOHOL FREQUENCY: Alcohol Intake Frequency: 3 or More Drinks per Day HOUSING: Housing: House LIVES WITH: Lives With: Family Patient Erich Sarahronn Social History Living Situation History Housing: House Housing Other:: Pt lives with mom, ex , and her kids Tobacco History Smoking Status: Never smoker Second Hand Smoke Exposure: No Alcohol History Alcohol Intake: Former Alcohol Intake Frequency: 3 or More Drinks per Day Alcohol Intake Frequency Other:: 5 drinks a day Domestic Abuse History Do You Feel Safe at Home: Yes Review of Systems Report any current symptoms Only answer those that you have currently: Past Medical History Past Medical History Have you ever been diagnosed with any of the following: Neurological Problems Seizures: No Migraine: Yes Spinal Cord Injury: Yes Cardiology Problems Congestive Heart Failure: No Hypotension: Yes Respiratory Problems Chronic Obstructive Pulmonary Disease (COPD): No Asthma: No Stomache/Intestinal Problems Cirrhosis: Yes Gastrointestinal Bleed: Yes Esophageal Varices: Yes Hemorrhoids: Yes Genital/Urinary Problems Renal Disease: No Reproductive Problems Endometriosis: Yes Previous Pregnancies: Yes Endocrine Problems Diabetes Mellitus Type 1: No Diabetes Mellitus Type 2: Yes Blood Problems Anemia: Yes Sickle Cell Disease: No Psychologic Problems Depression: Yes Anxiety: Yes Other Problems Autoimmune Disease: No Blood Transfusions: Yes Blood Transfusion Reaction: No Anesthesia Reactions: No Chicken Pox: Yes Measles: Yes Cancer: No History of Present Illness HPI Narrative Patient is a 53-year-old female with past medical history significant for decompensated cirrhosis, multiple admissions for hepatic encephalopathy, was recently discharged from hospital for similar complaints. Patient was hypotensive during hospital stay was discharged on midodrine 10 mg 3 times daily, also sent in antibiotics for UTI. Had a GI bleed requiring octreotide for 5 days, the patient is already established with a veterans rehabilitation counselor in [place], but has not seen him in 6 months. Now patient is seen in follow-up from hospital for continued need of care, also to establish care as a new patient. Vitals today blood pressure 100/64, heart rate 47/min, afebrile. Reports no active complaints except 4-6 loose bowel movements per day, is taking lactulose 3 times daily. The patient stays firmly abstinent of alcohol, looking forward to liver transplant if indicated, excited to be around for kids. Review of Systems Review of Systems Narrative Review of Systems: General: Denies fevers or chills. HEENT: Denies congestion or sore throat Heart: Denies chest pain or palpitations Lungs: Denies shortness of breath or cough Abdomen: Denies bleeding per rectum or melena, has 4-6 bowel movements loose per day. Genitourinary: Denies frequency, urgency, dysuria, or hematuria Musculoskeletal: Denies joint pain, denies muscular pain Neurology: Denies any numbness, tingling Review of systems otherwise negative except what is mentioned above. Objective/Exam Narrative Physical exam: Gen: Well-developed and well-nourished. Sitting in wheelchair, comfortable, A and O x 3 HEENT: NCAT, PERRLA, EOMI, MMM, anicteric conjunctivae. CVS: normal S1 and S2. RRR. No M/R/G. Resp: CTA B/L. No rhonchi, rales, crackles or wheezing. Abd: Mildly distended but soft, non-tender. MSK: Good ROM in BUE & BLE. No edema or rash. Neuro: CN II-XII grossly intact. Strength 5/5 in BUE & BLE. A&O x 3. Assessment & Plan Diagnosis / Problem List (1) Cirrhosis: Status: Acute Qualifiers: Ascites presence: unspecified Hepatic cirrhosis type: alcoholic cirrhosis Qualified Code(s): K70.30 - Alcoholic cirrhosis of liver without ascites Assessment & Plan: The patient has end-stage liver disease, decompensated cirrhosis with evidence of portal hypertension including gastric varices as well as hepatic encephalopathy. Likely secondary to alcohol abuse disorder. The patient is established with a veterans rehabilitation counselor in [place], last saw him in December, also was established at [facility] liver transfer center last year, but is waiting a follow-up appointment. She has been strictly abstinent from alcohol for more than 6 months now. The patient no is noted to have bradycardia, low blood pressure, started on midodrine during hospital stay due to hypotension. Plan: ? Decrease propranolol to 20 mg twice daily due to concern for bradycardia. ? Decrease spironolactone to 50 mg daily as patient has minimal ascites. ? Rifaximin 550 mg twice daily ? Lactulose 20 mg 3 times daily, titrate to 2-3 loose bowel movements daily, if more than 4 bowel movements or sharlene diarrhea, can decrease lactulose to twice daily. ? Continue PPI ? Recommend following up with veterans rehabilitation counselor in [place], patient unaware of doctors name, will provide name at later visit. Will request medical records once we have information. ? Recommend calling liver transplant center for follow-up ? Follow-up with labs Plan Plan of care discussed with attending Dr. Kamari Stephens PGY2 Office Procedures [facility] Level of Care Nursing/Assessment Patient Status: Established Patient Nursing Assessment/Reassessment: Medication Reconciliation, Update PMH in EMR and Vital Signs Coordination of Care: Complex Care and Chronic Disease 1-5, Consent,records obtained, informed consent, Education Simp Pt/Fam and Staff clarify orders Established Patient Charge Established Patient Point Assignment: 85 Established Patient Point Charge: Level 3 (80-115)
== END 2024-06-08 10:09 | disposition home or self-care (01) ==
LOC: HODAHC 08:55
PROVIDERS: Supervising Provider Internal Medicine; Visit Provider Student in an Organized Health Care Education/Training Program
DX: K70.30 Alcoholic cirrhosis of liver without ascites (principal); K72.10 Chronic hepatic failure without coma; K76.6 Portal hypertension; I86.4 Gastric varices; K76.82 Hepatic encephalopathy
CPT/HCPCS: 99213; G0463

== ENCOUNTER 2024-06-12 13:52 | Inpatient (IN) | payer MEDICAID, SELFPAY ==
[2024-06-12] VITALS (9 sets, daily range): BP systolic 95–110; BP diastolic 54–59; PULSE 44–78; RESP 12–18; TEMP 36.1–37.3; O2SAT 95–100; BMI 30.2; BMI 29.9
--- NOTE | 2024-06-12 13:58 | EKG_ITS ---
[facility] Test Date: 2024-06-12 Pat Name: SHANNON ORTIZ Department: Room: - Gender: Female [place] Marina: : 1970 Requested By: ED Temporary Provider Order Number: [id number] Reading MD: ED Temporary Provider Measurements Intervals Spring Rate: 44 P: 22 IL: 131 QRS: 36 QRSD: 88 T: 23 QT: 500 QTc: 429 Interpretive Statements SINUS BRADYCARDIA Compared to ECG 05/27/2024 13:47:28 Short IL interval no longer present Myocardial infarct finding no longer present /store/S0/[id number]
--- NOTE | 2024-06-12 14:14 | XR_ITS ---
Indication: AP chest single view Technique one AP portable semiupright chest single view Exam date and time: June 12, 2024 1436 hours Comparison May 26, 2024 INDICATIONS: Vomiting today. FINDINGS: Negative for aspiration pneumonia Normal heart size The osseous structures are intact IMPRESSION: Negative for aspiration pneumonia
--- NOTE | 2024-06-12 14:20 | PC.NURSE ---
PT HERE WITH C/O ALTERED SINCE YESTERDAY AND HX CIRRHOSIS
--- NOTE | 2024-06-12 14:28 | EDNOTE_ITS ---
Altered Mental Status RME/HPI General Chief Complaint: Altered Mental Status Stated Complaint: INCREASED CONFUSION, LOW BP, LESS RESPONSIVE Time Seen by Provider: 06/12/24 14:12 Arrival date/time: 06/12/24 13:52 RME / HPI RME / HPI narrative: DR. MATT MAIN ED EVALUATION: 53 year old female with past medical history significant for liver cirrhosis and past hepatic encephalopathy presents to the Emergency Department with complaint of altered mental status since last night, less responsive and more lethargic. Patient also has low blood pressure, 97/57. Mother states patient does take her lactulose. No further history at this time. Related Data Home Medications ?Medication ?Instructions ?Recorded ?Confirmed rifaximin 550 mg tablet (Xifaxan) 550 mg PO BID 06/08/24 ergocalciferol (vitamin D2) 1,250 1,250 mcg PO QWEEK 1 04/08/23 06/08/24 mcg (50,000 unit) capsule (Vitamin D2) methocarbamol 750 mg tablet 750 mg PO BID 02/06/24 multivitamin 1 tab PO QDAY 05/11/2406/08 mirtazapine 15 mg tablet 15 mg PO HS 05/12/24 5 hydrocodone 5 mg-acetaminophen 325 tab PO Q12H PRN jayson n 05/26/24 06/08/24 mg tablet Previous Rx's ?Medication ?Instructions ?Recorded lactulose 20 gram/30 mL oral 30 g (45 mL) PO TID 30 da ys #4,050 01/31/24 solution mL multivitamin with folic acid 400 1 tab PO QAM #30 tabs 04/10/24 mcg tablet (Daily-Dena (with folic acid)) furosemide 20 mg tablet (Lasix) 20 mg PO QDAY #90 tabs 04/16/24 midodrine 10 mg tablet 10 mg PO TID 2 weeks #42 tab s 06/03/24 pantoprazole 40 mg tablet,delayed 40 mg PO BID #30 tab s 06/03/24 release (Protonix) propranolol 20 mg tablet 10 mg (1/2 x 20 mg) PO BID # 30 tabs 06/08/24 spironolactone 25 mg tablet 50 mg (2 x 25 mg) PO QDAY #30 tabs 06/08/24 Allergies Allergy/AdvReac Type Severity Reaction Status Date / Time latex Allergy Severe Hives Verified 06/12/24 13:57 Review of Systems Review of Systems ROS Unobtainable: unobtainable due to mental status Past Medical History Past Medical History NEUROLOGIC: Positive Neurological Disorders, Migraine and Spinal Cord Injury CARDIAC: Positive Cardiac Disorders and Hypotension GASTROINTESTINAL: Positive Gastrointestinal Disorders, Cirrhosis, Gastrointestinal Bleed, Esophageal Varices and Hemorrhoids REPRODUCTIVE: Positive Endometriosis and Previous Pregnancies MUSCULOSKELETAL: Positive Musculoskeletal Disorders ENDOCRINE: Positive Endocrine Disorders and Diabetes Mellitus Type 2 HEMATOLOGIC: Positive Blood Disorders and Anemia PSYCHO/SOCIAL: Positive Depression and Anxiety OTHER HISTORY: Positive Blood Transfusions, Chicken Pox and Measles Family History FAMILY HISTORY: Positive Family Psychiatric Problems and Family Cancer Surgical History SURGICAL: Positive Section Social History SMOKING STATUS: Never smoker SECOND HAND EXPOSURE: No SUBSTANCE USE: marijuana ED Exam Narrative Physical exam: Physical Exam:? General:?? ? Patient is obtunded arouses gives eye contact and falls asleep fairly quick The vital signs were reviewed. The patient is arousable with verbal and painful stimuli Patient had a spontaneous respirations that required no assistance at this time . O2 sats are adequate at the present time. Head & Scalp:?? ? Normocephalic, atraumatic. Face:?? ? Appears normal and is without lesions, deformity. No apparent trauma Ears:??? Left external pinna appears normal. Right external pinna appears normal. Eyes:?? ? The sclera is anicteric. The Left and Right Orbit/Lid/Conjunctiva appears normal without swelling, discoloration or injection. Nose: ? ? The nose is without deformity, discharge or tenderness; Throat: ? ? Appears normal.? The mucous membranes are pink and moist without exudates, redness or mass seen.? The tongue appears normal. Neck: The neck is supple and no apparent mass or adenopathy. Chest: The chest wall is normal in size and symmetry and has no chest wall tenderness or crepitus. The patient displays adequate ventilator effort without retractions, accessory muscle use. Patient has adequate air movement bilaterally with no wheezes and no rales. ? Cardiovascular: Regular rate and rhythm; No murmurs, rubs, or gallops; Gastrointestinal: The abdomen appears normal.? No obvious hernias or mass. The abdomen is soft and benign, non-distended, with no pain, no guarding and no rebound tenderness.? Bowel sounds are present and normal sounding.? No CVA tenderness. Genitourinary: No apparent injury or trauma. Back/Spine: No apparent injury or trauma Extremities/Musculoskeletal/lymphatic:? ? ? The bilateral upper and lower extremities are warm. There is no evidence of arterial? insufficiency. There is no evidence of venous insufficiency/edema. The patient is obtunded but displays no obvious focal deficits and spontaneously moves bilateral upper and lower extremities with painful or verbal stimuli There is no apparent, injury or trauma. Skin:? The skin is warm, dry and intact.? No rashes. No petechia. No purpura. No abnormal bruising.? The color is appropriate with no cyanosis. Mental status/Psychiatric: Mental status is obtunded unable to provide any information no further evaluation can be made Neurological:? The patient is obtunded. But arousable as mentioned above. The pupils are equal and reactive to light No obvious focal deficits. Patient responds to painful and verbal stimuli. Course Quality Measures none Orders Category Date Time Status Bedside Blood Glucose Q2HX3 Care 06/12/24 16:33 Completed EKG (ED ONLY) *Do not use* NOW Care 06/12/24 13:58 Completed In and Out Catheter X1 Care 06/12/24 14:[address] head/brain wo con Stat Exams 06/12/24 14:30 Completed EKG (ED Only) Stat Exams 06/12/24 13:58 Draft XR chest 1V portable Stat Exams 06/12/24 14:14 Completed Ammonia Stat Lab 06/12/24 14:30 Completed B-Type Natriuretic Peptide Stat Lab 06/12/24 14:30 Completed CBC Stat Lab 06/12/24 14:30 Completed Comprehensive Metabolic Panel Stat Lab 06/12/24 14:30 Completed Drug Screen,Urine Stat Lab 06/12/24 14:53 Completed LDH (Lactate Dehydrogenase) Stat Lab 06/12/24 14:30 Completed Magnesium Stat Lab 06/12/24 14:30 Completed Partial Thromboplastin Time Stat Lab 06/12/24 14:30 Completed Prothrombin Time with INR Stat Lab 06/12/24 14:30 Completed Troponin I Stat Lab 06/12/24 14:30 Completed Urinalysis Stat Lab 06/12/24 14:53 Completed VBG [Venous Blood Gas] Stat Lab 06/12/24 14:30 Completed ALBUTEROL RT 3ml [Proventil Rt 3ml] Med 06/12/24 16:35 Discontinued 2.5 mg INH X1 ONE Calcium Chloride 10% Abboject Med 06/12/24 16:33 Discontinued 10 ml IV X1 ONE Dextrose 50% Syr [D50w Syringe Abboject] Med 06/12/24 16:33 Active 25 ml IV Q15MIN PRN Dextrose 50% Syr [D50w Syringe Abboject] Med 06/12/24 16:33 Active 50 ml IV Q15MIN PRN Dextrose 50% Syr [D50w Syringe Abboject] Med 06/12/24 16:52 Discontinued 50 ml IV X1 ONE Glucagon Inj Med 06/12/24 16:33 Active 1 mg IM Q15MIN PRN Insulin Regular Med 06/12/24 16:51 Discontinued 10 unit IV X1 ONE Insulin Regular Med 06/12/24 16:33 Discontinued 5 unit IV X1 ONE Lactulose Syrup [Enulose Syrup] Med 06/12/24 14:30 Discontinued 60 gm PO X1 ONE Sod Polystyrene Sulfon Susp [Kayexalate Susp] Med 06/12/24 16:33 Discontinued 30 gm PO X1 ONE Sodium Chloride 0.9% 500 ml [Ns] 500 ml Med 06/12/24 14:30 Discontinued IV 999 mls/hr Vital Signs Vital signs: Vital Signs Temperature 98.6 F 06/12/24 14:10 Pulse Rate 78 06/12/24 14:10 Respiratory Rate 18 06/12/24 14:10 Blood Pressure 97/57 L 06/12/24 14:10 Pulse Oximetry (%) 95 06/12/24 14:10 Oxygen Delivery Method Room Air 06/12/24 14:10 Altered Mental Status MDM Narrative MDM Narrative:: I, Taylor Sunshine am scribing for and in the presence of Dr. Matt. Patient presents with altered mental status somnolence with a history of liver disease and past hepatic encephalopathy. Medical workup is ordered and pending. Patient appears did not have any other source for altered mental status besides hepatic encephalopathy therefore we will give her some lactulose early as she seems to be able to be awake enough to possibly swallow and nurse will assess for this. Patient although she is altered she was able to drink her lactulose without any aspiration per nurse observation. Medical workup reveals white count of 5.6 hemoglobin 10.4 which is higher than the previous blood hemoglobin of 8.6 platelet count was 49,000 PT 18.8 INR 1.8 PTT 36.7 VBG pH was 7.37 sodium 144 potassium is elevated 5.6 chlorides 112 BUN/creatinine ratio is 23 Cockett osmolality was 296 high again consistent with dehydration ammonia is elevated at 98 BNP was slightly elevated 181 troponin was negative ammonia was 98 transaminases were negative. Urinalysis came back negative urine drug screen is positive for opioids. Patient got altered mental status with an elevated ammonia increased renal parameters consistent with dehydration coupled with chronic cirrhosis. A rectal exam was done and there is no melena its brown stool there is bloody mucus surrounding the rectum which contaminates the specimen and therefore the guaiac card was positive this was shared with the resident who will be admitting the patient. So the hospitalist was contacted and they will be admitting for altered mental status due to hyperammonemia dehydration with acute kidney injury or worsening prerenal azotemia.. Does not appear to have an active melanotic GI bleed at this time despite the guaiac card was positive as mentioned above Patient data External records reviewed:: [facility] previous records (Reviewed last admission parul chavez dated 06/03/24, patient admitted for the following: LILY (acute kidney injury)) Clinical information provided by:: patient Social determinants that could affect healthcare access:: none Patient has the following chronic illnesses:: Liver disease and past hepatic encephalopathy How is presenting disease/condition affected by chronic disease/condition?: exacerbated by Evaluation data The following diagnostics were reviewed and interpreted by me:: lab results, radiology exam(s) and EKG tracing(s) (EKG#1: EKG at 1421 hours. Interpreted by me: sinus bradycardia, rate 44, no STEMI) Lab and/or radiology exams considered but not ordered:: none Interpretation Summary: Procedure(s): XR chest 1V portable Accession Number(s): [id number] cc: Cipriano (FRANCISCO),Kamron SINGH; Aiden Drew MD; NO PRIMARY/FAMILY,PHYSICIAN~ Indication: AP chest single view Technique one AP portable semiupright chest single view Exam date and time: June 12, 2024 1436 hours Comparison May 26, 2024 INDICATIONS: Vomiting today. FINDINGS: Negative for aspiration pneumonia Normal heart size The osseous structures are intact IMPRESSION: Negative for aspiration pneumonia Dictated By: Aiden Drew MD Procedure(s): CT head/brain wo con Accession Number(s): [id number] cc: Arie Matt MD; Aiden Drew MD; NO PRIMARY/FAMILY,PHYSICIAN~ Examination: CT brain head without contrast. 2-D sagittal coronal reconstructions Date and time of exam:June 12, 2024 1528 hours INDICATIONS: Onset altered mental status today COMPARISON: May 26, 2024 CTDI: vol (mGy):49.5 DLP: (mGycm):893 Technique: Multiple CT axial sections of the brain have been obtained, 5 mm slice thickness. Contrast has not been administered. 2-D sagittal, coronal reconstructions have been obtained Low dose protocols were performed. One or more of the following dose reduction techniques were used; automated exposure control, adjustment of the mA and/or KV according to patient size, use of iterative reconstruction technique. Findings: No significant ventricular enlargement. Intra-axial or extra-axial hemorrhage density is not seen. No mass effect or midline shift Basal cisterns are not remarkable. Fourth ventricle is midline. Cranial vault intact. Impression: Negative for acute hemorrhage, mass effect or midline shift Advise clinical correlation and follow-up accordingly Dictated By: Aiden Drew MD Medications / Prescriptions Medications or Prescriptions considered but not ordered:: none Medication administrations:: Medication Administration History Dextrose (Dextrose 50%-Water Inj 50 Ml Syringe) 25 ml IV Q15MIN PRN PRN Reason: BG 50-70 responsive npo pt Stop: 07/12/24 16:32 Dextrose (Dextrose 50%-Water Inj 50 Ml Syringe) 50 ml IV Q15MIN PRN PRN Reason: BG <50 OR BG <70 & pt unresponsive Stop: 07/12/24 16:32 Glucagon (Glucagon Inj 1 Mg Vial) 1 mg IM Q15MIN PRN PRN Reason: BG <70, and no IV access Discontinued Medications Albuterol (Albuterol Rt 2.5 Mg/3 Ml Nebu) 2.5 mg INH X1 ONE Stop: 06/12/24 16:36 Calcium Chloride (Calcium Chloride 10% Inj 10 Ml Syrg) 10 ml IV X1 ONE Stop: 06/12/24 16:34 Dextrose (Dextrose 50%-Water Inj 50 Ml Syringe) 50 ml IV X1 ONE Stop: 06/12/24 16:53 Sodium Chloride (Ns) 500 mls @ 999 mls/hr IV .Q31M ONE Stop: 06/12/24 15:00 Last Infusion: 06/12/24 15:42 Dose: Infused Documented By: [facility] Admin: 06/12/24 14:43 Dose: 999 mls/hr Documented By: [facility] Insulin Human Regular (Insulin Hum Regular 1 Unit/0.01 Ml (Per Unit)) 5 unit IV X1 ONE; Protocol Stop: 06/12/24 16:34 Insulin Human Regular (Insulin Hum Regular 1 Unit/0.01 Ml (Per Unit)) 10 unit IV X1 ONE Stop: 06/12/24 16:52 Lactulose (Lactulose Syrup 20 Gm/30 Ml Udc) 60 gm PO X1 ONE; Protocol Stop: 06/12/24 14:31 Last Admin: 06/12/24 14:40 Dose: 60 gm Documented By: [facility] Sodium Polystyrene Sulfonate (Sod Polystyrene Sulfon Susp 15 Gm/60 Ml Btl) 30 gm PO X1 ONE Stop: 06/12/24 16:34 see above Consultations Consultation(s) initiated? (list below): Yes Consultation #1 (Physician, Specialty, Details): Discussed test HPI, PMHx, lab, radiology results and/or management with resident working with hospitalist. Will admit for further evaluation and management. Accepts patient for admission. Time: 16:14 Diagnosis Differential diagnosis altered mental status: altered mental status and other (hepatic encephalopathy, UTI) Most likely diagnosis given after review of the tests above:: Acute hepatic encephalopathy Cirrhosis Acute kidney injury Admission Indicated Admission indicated?: indicated Admission Request Was there a request for admission?: Yes Admission Attestation Admission request attestation: Discussed case with [] from Hospitalist service regarding admission. Discussed patients ED course, exam findings, labs, and radiology results. The Hospitalist [agrees,declines] to accept the patient for admission. Disposition Plan Disposition Plan: Admit Discharge Plan Plan Patient Disposition: Admit Acute Care w/in Hospital Disposition Comment: Hospitalist admit Prescriptions/Referrals Prescriptions/Med Rec: No Action propranolol 20 mg tablet 10 mg PO BID Qty: 30 0RF spironolactone 25 mg tablet 50 mg PO QDAY Qty: 30 0RF lactulose 20 gram/30 mL Solution 30 g PO TID 30 Days Qty: 4050 1RF methocarbamol 750 mg Tablet 750 mg PO BID ergocalciferol (vitamin D2) [Vitamin D2] 1,250 mcg (50,000 unit) Capsule 1,250 mcg PO QWEEK Xifaxan 550 mg tablet 550 mg PO BID Patient Comments: TAKE 1 TABLET BY MOUTH TWICE A DAY FOR 1 MONTH multivitamin with folic acid [Daily-Dena (with folic acid)] 400 mcg tablet 1 tab PO QAM Qty: 30 0RF furosemide [Lasix] 20 mg tablet 20 mg PO QDAY Qty: 90 0RF Rx Instructions: Hold if SBP drops below 100 and DBP below 60 mmHg multivitamin Tablet 1 tab PO QDAY Patient Comments: TAKE 1 TABLET BY MOUTH ONCE DAILY EVERY MORNING AT 9AM mirtazapine 15 mg tablet 15 mg PO HS Patient Comments: TAKE 1 TABLET BY MOUTH AT BEDTIME hydrocodone-acetaminophen 5-325 mg tablet PO Q12H PRN (Reason: pain) Patient Comments: TAKE 1 TABLET BY MOUTH ONCE A DAY NEEDED FOR PAIN. DOSE TAMPERING midodrine 10 mg tablet 10 mg PO TID 14 Days Qty: 42 0RF Rx Instructions: do not give last dose of day after 6PM or within 4 hrs of bedtime pantoprazole [Protonix] 40 mg tablet,delayed release (DR/EC) 40 mg PO BID Qty: 30 0RF Referrals: No Primary/Family,Physician [Primary Care Provider] - In 1 week Problem List Clinical Impression: Acute hepatic encephalopathy, Cirrhosis, Acute kidney injury, Acute dehydration, Heme positive stool Patient/Caregiver Discharge Instructions Print Language: Portuguese Stand Alone Forms: [facility] Award Info., Patient Portal Info Letter
--- NOTE | 2024-06-12 14:33 | PC.NURSE ---
DR. MAGDALENO IN TO SEE PT
[2024-06-12] MEDS: LACTULOSE SYRUP 20 GM/30 ML UDC 60 GM PO (14:40)
[2024-06-12 14:42] LABS: Base Excess, Venous 0 (-3-3); O2 Saturation, Venous 53 % (96-97); PCO2, Venous 45 mmHg (36-56); PO2, Venous 32 mmHg (15-58); pH, Venous 7.37 (7.33-7.66)
[2024-06-12] MEDS: SODIUM CHLORIDE 0.9% 500 ML 500 ML 999 ML IV (14:43)
[2024-06-12 14:45] LABS: Basophils # (Auto) 0.1 Thou/mm3 (0.0-0.2); Basophils % (Auto) 1 % (0-2.5); Eosinophils # (Auto) 0.3 Thou/mm3 (0.0-0.5); Eosinophils % (Auto) 6 % (0-10); Hemoglobin 10.4 g/dL (12.0-16.0); Immature Granulocytes % (Auto) 0 % (0-0); Immature Granulocytes Auto 0.01 Thou/mm3 (0.00-0.00); Lymphocytes # (Auto) 1.7 Thou/mm3 (1.0-4.8); Lymphocytes % (Auto) 31 % (10-50); Mean Corpuscular HGB Conc 33.5 g/dl (31.0-37.0); Mean Corpuscular Hemoglobin 34.7 pg (25.0-35.0); Mean Corpuscular Volume 103 fL (80-100); Monocytes # (Auto) 0.4 Thou/mm3 (0.0-0.8); Monocytes % (Auto) 7 % (0-12); Neutrophils # (Auto) 3.1 Thou/mm3 (1.8-7.7); Neutrophils % (Auto) 55 % (37-80); Nucleated Red Blood Cell % 0 /100 WBC (0); RDW Standard Deviation 85.9 fL (36.4-46.3); White Blood Count 5.6 Thou/mm3 (3.6-11.0)
[2024-06-12 14:56] LABS: Platelet Count 49 Thou/mm3 (140-440)
[2024-06-12 15:00] LABS: INR 1.8 (0.9-1.3); Partial Thromboplastin Time 36.7 Seconds (22.0-36.0); Prothrombin Time 18.8 Seconds (9.0-12.2)
[2024-06-12 15:03] LABS: Collection Type, Urine Clean Catch
[2024-06-12 15:13] LABS: Bacteria,Urine Rare; Bilirubin,Urine Negative (Negative); Blood,Urine 2+ (Negative); Clarity,Urine Clear (Clear/Hazy); Color,Urine Yellow (Lt Yel-Yel); Glucose, Urine Negative (Negative); Hyaline Casts,Urine 1 /hpf (0-1); Ketones,Urine Negative (Negative); Leukocyte Esterase,Urine Positive (Negative); Nitrite,Urine Negative (Negative); PH,Urine 5.5 (5.0-7.0); Protein,Urine Negative (Neg - Trace); RBC,Urine 13 /hpf (0-3); Specific Gravity,Urine 1.021 (1.001-1.035); Squamous Epithelial Cell,Urine < 1 /hpf (0-5); Urobilinogen,Urine Negative mg/dL (0.0-1.0); WBC,Urine 6 /hpf (0-5)
[2024-06-12 15:21] LABS: Ammonia 98 uMol/L (11-32)
[2024-06-12 15:22] LABS: Amphetamine/Methamp Scrn,U Negative (Negative); Barbiturate Screen,Urine Negative (Negative); Benzodiazepines Screen,Urine Negative (Negative); Benzoylecgonine Screen, Ur Negative (Negative); Fentanyl Screen,Urine Negative (Negative); Opiate Screen,Urine Positive (Negative); THC Screen,Urine Negative (Negative)
[2024-06-12 15:28] LABS: Slide Review Platelets confirmed
[2024-06-12 15:29] LABS: B-Type Natriuretic Peptide 181 pg/mL (0-100)
[2024-06-12 15:31] LABS: Alanine Aminotransferase 17 U/L (10-49); Albumin, Serum 3.2 gm/dL (3.5-5.0); Albumin/Globulin Ratio 0.9 (1.2-2.2); Alkaline Phosphatase 83 U/L (46-116); Anion Gap 6 (7-16); Aspartate Amino Transferase 34 U/L (0-34); BUN/Creatinine Ratio 23 Ratio (12-20); Bilirubin,Total 7.1 mg/dL (0.3-1.2); Blood Urea Nitrogen 32 mg/dL (9-23); Calcium 9.3 mg/dL (8.3-10.6); Calcium (Corrected) 9.9 mg/dL (8.5-10.1); Carbon Dioxide 26.1 mMol/L (20.0-31.0); Chloride 112 mMol/L (98-107); Creatinine (Component) 1.4 mg/dL (0.6-1.3); Estimated Creatinine Clearance 39.4 mL/min (>60); Globulin 3.6 gm/dL (2.3-3.5); Glucose 151 mg/dL (74-106); LDH (Lactate Dehydrogenase) 251 U/L (120-246); Osmolality,Calculated 296 (275-295); Potassium 5.6 mMol/L (3.4-5.1); Sodium 144 mMol/L (136-145); Total Protein 6.8 gm/dL (5.7-8.2); Troponin I < 0.020 ng/mL (0.0-0.045); eGFR 45 See Note
--- NOTE | 2024-06-12 16:50 | PC.NURSE ---
HOSPITALIST CALLED TO CLARIFY ORDERS. PENDING NEW ORDERS
[2024-06-12] MEDS: DEXTROSE 50%-WATER INJ 50 ML SYRINGE IV (17:00)
[2024-06-12] MEDS: ALBUTEROL RT 2.5 MG/3 ML NEBU INH (17:03)
[2024-06-12] MEDS: INSULIN HUM REGULAR 1 UNIT/0.01 ML (PER UNIT) 10 UNIT IV (17:12)
[2024-06-12] MEDS: CALCIUM CHLORIDE 10% INJ 10 ML SYRG IV (17:13)
[2024-06-12] MEDS: SOD POLYSTYRENE SULFON SUSP 15 GM/60 ML BTL 30 GM PO (17:15)
[2024-06-12] MEDS: ALBUMIN HUMAN 25% IVPB 25 GM/100 ML BTL IV ×3 (17:25→23:06)
[2024-06-12] MEDS: cefTRIAXone/D5w 1gm IV premix 1 GM/50 ML BAG IV (17:29)
--- NOTE | 2024-06-12 17:57 | ESHP_ITS ---
<Statement entered by Geoff Hernandes MD - 06/17/24 15:39> I reviewed above note and agree with findings and plans. I have also personally examined the patient with medicine team and went over assessment and plan with medical team including jewelry internship and resident physician. <Statement entered by Geoff Moreno MD - 06/17/24 08:39> Senior Resident Attestation: I supervised/discussed management plan with jewelry internship physician Dr. Gandhi, and was involved in the care of this patient. I personally saw and examined the patient and discussed the assessment and plan with the entire medicine team, including my attending. I agree with the assessment and plan as documented. Patient is a 53 years old female with PMH of alcoholic cirrhosis, variceal bleed s/p banding, recurrent episodes of hepatic encephalopathy presented to the ED due to AMS and was admitted for hepatic encephalopathy management. Patient's care was discussed with attending physician, Dr. Hernandes. Geoff Moreno MD PGY-2. Documentation for date of: 06/12/24 HPI History of Present Illness Chief complaint: Altered sensorium History of present illness: A 53-year-old female with significant past medical history of cirrhosis, variceal bleed status post banding recurrent episodes of hepatic encephalopathy, recent admission in [facility] on 05/26/2024 for hepatic encephalopathy again presented to the hospital with chief complaints of altered sensorium since 1 day. Patient's mother is at bedside and reported that patient is taking lactulose but having only 1 bowel movement every day since discharge. Patient is apparently normal till yesterday. Since last night, patient had mild altered sensorium for which patient was brought to the hospital. Also complaining of mild nausea and abdominal pain. Denies fever, vomitings, diarrhea, abdominal distention, lower extremity swelling, shortness of breath, chest pain. Denies recent alcohol intake and last alcohol intake is in 2023 ED course: - Vitals at the time of admission are significant for mild hypotension 97/57 mmHg - Labs are significant for Hb 10.4, platelet count 49, sodium 144, potassium 5.6, chloride 112, BUN 32, creatinine 1.4, osmolality 296, 2 total bilirubin 7.1, ammonia 98 - Urine analysis showed 2+ blood, 6 WBC. Urine toxicology tested positive for opioids - Head CT is negative for acute hemorrhage/infarct - EKG showed sinus bradycardia. Chest x-ray is negative for aspiration pneumonia Past medical history: Cirrhosis, variceal bleed, recurrent episodes of hepatic encephalopathy Past surgical history: Appendectomy, 2 , 2 laparoscopic procedures for endometriosis Social history: Stopped alcohol in 2023, denies smoking, other illicit drug abuse Allergies: Latex Review of Systems Review of Systems Systems Reviewed: All systems reviewed, normal except as documented Past Medical History Past Medical History NEUROLOGIC: Positive Neurological Disorders, Migraine and Spinal Cord Injury CARDIAC: Positive Cardiac Disorders and Hypotension GASTROINTESTINAL: Positive Gastrointestinal Disorders, Cirrhosis, Gastrointestinal Bleed, Esophageal Varices and Hemorrhoids REPRODUCTIVE: Positive Endometriosis and Previous Pregnancies MUSCULOSKELETAL: Positive Musculoskeletal Disorders ENDOCRINE: Positive Endocrine Disorders and Diabetes Mellitus Type 2 HEMATOLOGIC: Positive Blood Disorders and Anemia PSYCHO/SOCIAL: Positive Depression and Anxiety OTHER HISTORY: Positive Blood Transfusions, Chicken Pox and Measles Family History FAMILY HISTORY: Positive Family Psychiatric Problems and Family Cancer Surgical History SURGICAL: Positive Section Social History SMOKING STATUS: Never smoker SECOND HAND EXPOSURE: No SUBSTANCE USE: marijuana Exam Vital Signs Temp Pulse Resp BP Pulse Ox O2 Del Method 99.2 F 50 L 14 108/59 L 100 Room Air 06/12/24 16:12 06/12/24 17:05 06/12/24 17:05 06/12/24 16:12 06/12/24 17:05 06/12/24 16:12 Narrative Exam General: Awake. icteric HEENT: Normocephalic, atraumatic, mucous membranes moist. Heart: Regular rate and rhythm, no murmurs. Lungs: Clear to auscultation with no wheezing or crackles. Abdomen: Soft, nondistended, Diffuse abdominal tenderness, positive bowel sounds. ?No guarding or rebound tenderness. Neurologic: Alert and oriented x3, no gross neurological deficit, and patient able to move all 4 extremities. Extremities: No edema. Skin: No rash or ecchymoses. Results: Labs 06/12/24 14:30 06/12/24 14:30 Labs: Short CBC 06/12/24 Range/Units 14:30 WBC 5.6 (3.6-11.0) Thou/mm3 Hgb 10.4 L (12.0-16.0) g/dL Hct 31.0 L (36.0-46.0) % Plt Count 49 L D (140-440) Thou/mm3 BMP 06/12/24 14:30 Sodium 144 Potassium 5.6 H Chloride 112 H Carbon Dioxide 26.1 BUN 32 H Creatinine 1.4 H Glucose 151 H Calcium 9.3 Cardiac Enzymes 06/12/24 Range/Units 14:30 Troponin I < 0.020 (0.0-0.045) ng/mL Liver Function 06/12/24 Range/Units 14:30 Total Bilirubin 7.1 H (0.3-1.2) mg/dL AST 34 (0-34) U/L ALT 17 (10-49) U/L Alkaline Phosphatase 83 (46-116) U/L Albumin 3.2 L (3.5-5.0) gm/dL Urine 06/12/24 Range/Units 14:53 Urine Color Yellow (Lt Yel-Yel) Urine Clarity Clear (Clear/Hazy) Urine pH 5.5 (5.0-7.0) Ur Specific [place] 1.021 (1.001-1.035) Urine Protein Negative (Neg - Trace) Urine Glucose (UA) Negative (Negative) ABG Interpretation ABG results: 06/12/24 14:30 VBG pH 7.37 VBG pCO2 45 VBG pO2 32 VBG Base Excess 0 Quality Measures Quality Measures none Medications Home Medications and Allergies Home Medications ?Medication ?Instructions ?Recorded ?Confirmed ?Type rifaximin 550 mg tablet (Xifaxan) 550 mg PO BID 06/08/24 History ergocalciferol (vitamin D2) 1,250 1,250 mcg PO QWEEK 1 04/08/23 06/08/24 History mcg (50,000 unit) capsule (Vitamin D2) methocarbamol 750 mg tablet 750 mg PO BID 02/06/24 History multivitamin 1 tab PO QDAY 05/11/2406/08 History mirtazapine 15 mg tablet 15 mg PO HS 05/12/24 5 History hydrocodone 5 mg-acetaminophen 325 tab PO Q12H PRN jayson n 05/26/24 06/08/24 History mg tablet Allergies Allergy/AdvReac Type Severity Reaction Status Date / Time latex Allergy Severe Hives Verified 06/12/24 13:57 Visit Medications Acetaminophen (Acetaminophen 325 Mg Tablet) 500 mg PO Q6H PRN PRN Reason: Fever >101.5 Stop: 07/12/24 16:52 Hydrocodone Bitart/Acetaminophen (Hydrocodone/Apap 5/325 Tablet) 1 tab PO Q6HR PRN PRN Reason: PAIN SCALE 7-10 (Severe Stop: 06/17/24 16:52 Dextrose (Dextrose 50%-Water Inj 50 Ml Syringe) 25 ml IV Q15MIN PRN PRN Reason: BG 50-70 responsive npo pt Stop: 07/12/24 16:32 Dextrose (Dextrose 50%-Water Inj 50 Ml Syringe) 50 ml IV Q15MIN PRN PRN Reason: BG <50 OR BG <70 & pt unresponsive Stop: 07/12/24 16:32 Glucagon (Glucagon Inj 1 Mg Vial) 1 mg IM Q15MIN PRN PRN Reason: BG <70, and no IV access Albumin Human (Albuminar-25 Ivpb) 25 gm in 100 mls @ 100 mls/hr IV QDAY [facility] Stop: 06/15/24 17:03 Last Admin: 06/12/24 17:25 Dose: 100 mls/hr Ceftriaxone Sodium/Dextrose (Rocephin/D5w 1gm Iv Premix) 1 gm in 50 mls @ 100 mls/hr IV QDAY [facility] Stop: 06/19/24 17:06 Last Admin: 06/12/24 17:29 Dose: 100 mls/hr Lactulose (Lactulose Syrup 20 Gm/30 Ml Udc) 20 gm PO TID [facility]; Protocol Stop: 07/12/24 21:59 Ondansetron HCl (Ondansetron Inj 2 Mg/Ml Inj 2 Ml) 4 mg IV Q6H PRN; Protocol PRN Reason: NAUSEA OR VOMITING Stop: 07/12/24 16:52 Pantoprazole Sodium (Pantoprazole 40 Mg Tablet) 40 mg PO QDAY [facility] Stop: 07/13/24 08:59 Rifaximin (Rifaximin 550 Mg Tablet) 550 mg PO BID [facility] Stop: 06/19/24 20:59 Discontinued Medications Albuterol (Albuterol Rt 2.5 Mg/3 Ml Nebu) 2.5 mg INH X1 ONE Stop: 06/12/24 16:36 Last Admin: 06/12/24 17:03 Dose: 2.5 mg Calcium Chloride (Calcium Chloride 10% Inj 10 Ml Syrg) 10 ml IV X1 ONE Stop: 06/12/24 16:34 Last Admin: 06/12/24 17:13 Dose: 10 ml Dextrose (Dextrose 50%-Water Inj 50 Ml Syringe) 50 ml IV X1 ONE Stop: 06/12/24 16:53 Last Admin: 06/12/24 17:00 Dose: 50 ml Sodium Chloride (Ns) 500 mls @ 999 mls/hr IV .Q31M ONE Stop: 06/12/24 15:00 Last Infusion: 06/12/24 15:42 Dose: Infused Insulin Human Regular (Insulin Hum Regular 1 Unit/0.01 Ml (Per Unit)) 5 unit IV X1 ONE; Protocol Stop: 06/12/24 16:34 Insulin Human Regular (Insulin Hum Regular 1 Unit/0.01 Ml (Per Unit)) 10 unit IV X1 ONE Stop: 06/12/24 16:52 Last Admin: 06/12/24 17:12 Dose: 10 unit Lactulose (Lactulose Syrup 20 Gm/30 Ml Udc) 60 gm PO X1 ONE; Protocol Stop: 06/12/24 14:31 Last Admin: 06/12/24 14:40 Dose: 60 gm Sodium Polystyrene Sulfonate (Sod Polystyrene Sulfon Susp 15 Gm/60 Ml Btl) 30 gm PO X1 ONE Stop: 06/12/24 16:34 Last Admin: 06/12/24 17:15 Dose: 30 gm Assessment & Plan Plan A 53-year-old female with significant past medical history of cirrhosis, variceal bleed status post banding recurrent episodes of hepatic encephalopathy, recent admission in [facility] on 05/26/2024 for hepatic encephalopathy again presented to the hospital with chief complaints of altered sensorium since 1 day and admitted in the hospital for hepatic encephalopathy and hepatorenal syndrome # Acute on chronic decompensated liver disease # Hepatic encephalopathy - Patient was admitted to the hospital with chief complaints of altered sensorium since 1 day - Patient's mother at the bedside, reported that patient is taking lactulose but having only 1 bowel movement in a day - Denies vomitings, diarrhea, fever, shortness of breath, fever - Vitals are stable at the time of admission except for mildly low blood pressure, 97/57 mmHg - On physical examination, patient is alert awake and oriented but noted slowing of her mentation - Labs at the time of admission are significant for Hb 10.4, platelet count 49, INR 1.8, potassium 5.6, ammonia 98, total bilirubin 7.1 - Head CT done at the time of admission negative for infarct/hemorrhage Plan - Started on lactulose 20 g p.o. 3 times daily - Started on rifaximin 550 Mg p.o. twice daily - Will monitor for 2-3 bowel movements every day - Started on ceftriaxone 1 g IV daily - Stool for occult blood is ordered to rule out active GI bleed - Will consult reception agent Dr. Culp # LILY versus hepatorenal syndrome - Baseline creatinine on 06/12/2024 is 0.9 - Creatinine at the time of admission is 1.4, BUN 32 Plan - Started on midodrine 10 Mg p.o. 3 times daily - Condom catheter is placed and will monitor strict input and output - Started on albumin 62.5 g for next 48 hours - Octreotide is held for now in view of bradycardia and will resume once the heart rate improves - Will avoid nephrotoxic medications and renally dose the medications # Hyperkalemia - Potassium at the time of admission is 5.6, likely secondary to LILY - Patient was given 1 g of calcium chloride, albuterol nebulization, 10 units of insulin in 50% dextrose, 1 dose of Kayexalate 30 Plan - Will repeat renal panel in 2 hours - Will start medications as needed # Macrocytic anemia - Hemoglobin at the time of admission is 10.4 - Hemoglobin on 06/03/2024 is around 8 - Stool for occult blood is ordered - Will monitor for bleeding manifestations # 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 Hernandes and senior resident Dr. Josh Gandhi, PGY1
[2024-06-12] MEDS: HYDROcodone/APAP 5/325 TABLET 1 TAB PO (19:40)
[2024-06-12] MEDS: MIDODRINE 5 MG TABLET 10 MG PO (20:18)
[2024-06-12 20:19] LABS: Albumin, Serum 3.4 gm/dL (3.5-5.0); Anion Gap 9 (7-16); BUN/Creatinine Ratio 16 Ratio (12-20); Blood Urea Nitrogen 24 mg/dL (9-23); Calcium 10.6 mg/dL (8.3-10.6); Calcium (Corrected) 11.1 mg/dL (8.5-10.1); Carbon Dioxide 23.1 mMol/L (20.0-31.0); Chloride 116 mMol/L (98-107); Creatinine (Component) 1.5 mg/dL (0.6-1.3); Estimated Creatinine Clearance 36.6 mL/min (>60); Glucose 129 mg/dL (74-106); Osmolality,Calculated 300 (275-295); Phosphorous 4.4 mg/dL (2.4-5.1); Potassium 4.4 mMol/L (3.4-5.1); Sodium 148 mMol/L (136-145); eGFR 42 See Note
[2024-06-12] MEDS: rifaximin 550 MG TABLET PO (20:19)
--- NOTE | 2024-06-12 21:13 | PD.IMCONS ---
HPI Data of Consult Requesting Physician: Geoff Hernandes MD Primary Care Provider: Physician No Primary/Family Consult Narrative Reason for consult: AMS, ammonia level 98, negative CT head History of present illness: 53 years of female evaluated request of the emergency room physician for altered mental status in a patient with known history of chronic liver disease secondary to alcohol and she has been abstinent for few months from the alcohol Her ammonia level was 98 on admission Total bilirubin 7.1 AST ALT 34 and 17 alk phos of 83 She does have a history of esophageal variceal bleeding requiring band ligation in the past She also has a history of hematochezia requiring band ligation of the internal hemorrhoids she has done well since then cc:: cc: Geoff Hernandes MD Review of Systems Review of Systems ROS Unobtainable: unobtainable due to medical condition Past Medical History Surgical History OTHER SURGICAL HX: As in the history of present illness Meds Home Medications and Allergies Home Medications ?Medication ?Instructions ?Recorded ?Confirmed ?Type rifaximin 550 mg tablet (Xifaxan) 550 mg PO BID 01/12/24 06/08/24 History ergocalciferol (vitamin D2) 1,250 1,250 mcg PO QWEEK 02/06/24 06/08/24 History mcg (50,000 unit) capsule (Vitamin D2) methocarbamol 750 mg tablet 750 mg PO BID 02/06/24 06/08/24 History multivitamin 1 tab PO QDAY 05/11/24 06/08/24 History mirtazapine 15 mg tablet 15 mg PO HS 05/12/24 06/08/24 History hydrocodone 5 mg-acetaminophen 325 tab PO Q12H PRN pain 05/26/24 06/08/24 History mg tablet Allergies Allergy/AdvReac Type Severity Reaction Status Date / Time latex Allergy Severe Hives Verified 06/12/24 13:57 Exam Vital Signs Temp Pulse Resp BP Pulse Ox O2 Del Method 96.9 F 49 L 18 95/54 L 95 Room Air 06/12/24 20:00 06/12/24 20:18 06/12/24 20:00 06/12/24 20:18 06/12/24 20:00 06/12/24 20:00 Routine Respiratory Exam Comments: Normal to auscultation Routine Abdominal Exam Comments: Positive bowel sounds Results Labs 06/12/24 14:30 06/12/24 19:45 Labs: Short CBC 06/12/24 Range/Units 14:30 WBC 5.6 (3.6-11.0) Thou/mm3 Hgb 10.4 L (12.0-16.0) g/dL Hct 31.0 L (36.0-46.0) % Plt Count 49 L D (140-440) Thou/mm3 BMP 06/12/24 06/12/24 14:30 19:45 Sodium 144 148 H Potassium 5.6 H 4.4 D Chloride 112 H 116 H Carbon Dioxide 26.1 23.1 BUN 32 H 24 H Creatinine 1.4 H 1.5 H Glucose 151 H 129 H Calcium 9.3 10.6 Cardiac Enzymes 06/12/24 Range/Units 14:30 Troponin I < 0.020 (0.0-0.045) ng/mL Liver Function 06/12/24 06/12/24 Range/Units 14:30 19:45 Total Bilirubin 7.1 H (0.3-1.2) mg/dL AST 34 (0-34) U/L ALT 17 (10-49) U/L Alkaline Phosphatase 83 (46-116) U/L Albumin 3.2 L 3.4 L (3.5-5.0) gm/dL Urine 06/12/24 Range/Units 14:53 Urine Color Yellow (Lt Yel-Yel) Urine Clarity Clear (Clear/Hazy) Urine pH 5.5 (5.0-7.0) Ur Specific [place] 1.021 (1.001-1.035) Urine Protein Negative (Neg - Trace) Urine Glucose (UA) Negative (Negative) ABG Interpretation ABG results: 06/12/24 14:30 VBG pH 7.37 VBG pCO2 45 VBG pO2 32 VBG Base Excess 0 Assessment and Plan Additional Assessment & Plan Additional Plan: # Acute hepatic/metabolic encephalopathy Agree with lactulose and Xifaxan N.p.o. Follow ammonia level # Chronic liver disease secondary to alcohol Once awake and alert 2 g sodium diet # Thrombocytopenia due to chronic liver disease with advanced portal hypertension and splenomegaly Thank you very much for the opportunity to participate in care of this patient
[2024-06-12] MEDS: ALBUMIN HUMAN 25% IVPB 12.5 GM/50 ML BTL IV ×2 (21:37→22:39)
[2024-06-12] MEDS: LACTULOSE SYRUP 20 GM/30 ML UDC PO (22:07)
[2024-06-13] VITALS (14 sets, daily range): BP systolic 96–120; BP diastolic 47–68; PULSE 48–65; RESP 12–19; TEMP 36.3–36.8; O2SAT 96–100; BMI 29.9
[2024-06-13 03:59] LABS: OBS Card Lot # 23001; OBS Developer Lot # 23002; OBS Performed By ESPIM; OBS QC OK? Yes; Occult Blood, Stool Positive (Negative)
[2024-06-13] MEDS: LACTULOSE SYRUP 20 GM/30 ML UDC PO ×3 (06:00→22:49)
[2024-06-13 06:19] LABS: Basophils % (Auto) 1 % (0-2.5); Eosinophils # (Auto) 0.1 Thou/mm3 (0.0-0.5); Eosinophils % (Auto) 5 % (0-10); Hematocrit 24.4 % (36.0-46.0); Immature Granulocytes % (Auto) 0 % (0-0); Lymphocytes # (Auto) 0.9 Thou/mm3 (1.0-4.8); Lymphocytes % (Auto) 42 % (10-50); Mean Corpuscular HGB Conc 32.4 g/dl (31.0-37.0); Mean Corpuscular Volume 108 fL (80-100); Monocytes # (Auto) 0.2 Thou/mm3 (0.0-0.8); Monocytes % (Auto) 8 % (0-12); Neutrophils % (Auto) 44 % (37-80); Nucleated Red Blood Cell % 0 /100 WBC (0); RDW Standard Deviation 89.4 fL (36.4-46.3); Red Blood Count 2.26 Miln/mm3 (4.00-5.20)
[2024-06-13] MEDS: HYDROcodone/APAP 5/325 TABLET 1 TAB PO ×2 (06:22→13:48)
[2024-06-13 06:45] LABS: Hemoglobin 7.9 g/dL (12.0-16.0); Platelet Count 26 Thou/mm3 (140-440); White Blood Count 2.2 Thou/mm3 (3.6-11.0)
[2024-06-13 07:00] LABS: Alanine Aminotransferase 11 U/L (10-49); Albumin, Serum 3.8 gm/dL (3.5-5.0); Albumin/Globulin Ratio 1.3 (1.2-2.2); Alkaline Phosphatase 48 U/L (46-116); Anion Gap 12 (7-16); Aspartate Amino Transferase 29 U/L (0-34); BUN/Creatinine Ratio 21 Ratio (12-20); Bilirubin,Total 6.8 mg/dL (0.3-1.2); Blood Urea Nitrogen 25 mg/dL (9-23); Calcium 10.1 mg/dL (8.3-10.6); Calcium (Corrected) 10.3 mg/dL (8.5-10.1); Carbon Dioxide 22.1 mMol/L (20.0-31.0); Chloride 115 mMol/L (98-107); Creatinine (Component) 1.2 mg/dL (0.6-1.3); Estimated Creatinine Clearance 45.8 mL/min (>60); Globulin 2.9 gm/dL (2.3-3.5); Glucose 151 mg/dL (74-106); Magnesium 1.7 mg/dL (1.6-2.6); Osmolality,Calculated 303 (275-295); Potassium 4.5 mMol/L (3.4-5.1); Sodium 149 mMol/L (136-145); Total Protein 6.7 gm/dL (5.7-8.2); eGFR 54 See Note
[2024-06-13 08:02] LABS: Slide Review Platelets confirmed
[2024-06-13] MEDS: rifaximin 550 MG TABLET PO ×2 (08:28→22:45)
[2024-06-13] MEDS: cefTRIAXone/D5w 1gm IV premix 1 GM/50 ML BAG IV (08:28)
[2024-06-13] MEDS: MIDODRINE 5 MG TABLET 10 MG PO ×3 (08:28→22:45)
[2024-06-13] MEDS: PANTOPRAZOLE 40 MG TABLET PO (08:28)
--- NOTE | 2024-06-13 11:13 | PC.SS ---
TIFFANIE Marie attempted to complete a face to face biopsychosocial assessment with the pt at bedside. Pt was lethargic and somewhat confused. Pt was not able to answer all the questions asked, as she reported she was too tired and not feeling good. Shoe Handler gathered as much questions/answers as possible and respected the pts request to allow her to rest. Pt reported her new PCP is Dr. Stephens from the [facility]. Pt reported she has a specialist, but does not know who it is nor does she remember what the specialty is for. Pt reported her mother Bridgett Knight [phone] is her day care home mother. Pt reported that she has adult sons and her adult daughter who reside with her and also take care of her when Bridgett cannot. Pt reports she ambulates with the use of a walker, needs assistance with bathing and toileting. Pt requested information about diapers and Depends on if her insurance would cover it. Pt will need Home Health as pt reports she has open wounds on her buttock and vaginal area. Shoe Handler will provide pt information about her request. Shoe Handler could not complete the assessment as pt was fatigue and lethargic. SS concerns/worries: Pt will need a complete assessment prior to d/c. Needs: SS will need to f/u on information for diaper/depends and insurance coverage for her request. SS will f/u with Home Health if pt is not already connected. Next of Kin/Decision Maker: Bridgett Knight [phone] (pts mother).
--- NOTE | 2024-06-13 14:30 | PC.SS ---
Rounding note: Liver function monitoring at this time. Possible d/c in 2 days. Plan is for pt to d/c home.
--- NOTE | 2024-06-13 16:37 | ESPR_ITS ---
<Statement entered by Geoff Hernandes MD - 06/15/24 08:18> I reviewed above note and agree with findings and plans. I have also personally examined the patient with medicine team and went over assessment and plan with medical team including internal grinder and resident physician. <Statement entered by Linus Malave MD - 06/13/24 19:32> patient coming in with altered mental status from hepatic cephalopathy. Patient much improved today. Pending EGD by Dr. Culp. Denies any active sign of bleeding. pped, patient denies any active size of bleeding. Documentation for date of: 06/13/24 Subjective Subjective Interval history: Patient is seen and examined at the bedside. No acute overnight events. Noted to have significant improvement in her mentation Labs done today showed WBC 2.2, Hb 7.9, platelets 26, sodium 149, potassium 4.5, BUN 25, creatinine 1.2, total bilirubin 6.8 Discussed about patient with Dr. Culp and he recommended that he will do endoscopy today, so patient is kept on n.p.o. Will continue the current management Exam Vital Signs Temp Pulse Resp BP Pulse Ox O2 Del Method 97.3 F 51 L 12 106/65 99 Room Air 06/13/24 12:00 06/13/24 13:40 06/13/24 12:00 06/13/24 13:40 06/13/24 12:00 06/13/24 08:00 Narrative Exam General: Awake. icteric HEENT: Normocephalic, atraumatic, mucous membranes moist. Heart: Regular rate and rhythm, no murmurs. Lungs: Clear to auscultation with no wheezing or crackles. Abdomen: Soft, nondistended, Diffuse abdominal tenderness, positive bowel sounds. ?No guarding or rebound tenderness. Neurologic: Alert and oriented x3, mild slowing of mentation noted, and patient able to move all 4 extremities. Extremities: No edema. Skin: No rash or ecchymoses. Objective Labs 06/13/24 04:40 06/13/24 04:40 Labs: Laboratory Results - last 24 hr 06/12/24 06/13/24 06/13/24 19:45 02:10 04:40 WBC 2.2 L D RBC 2.26 L Hgb 7.9 L D Hct 24.4 L MCV 108 H MCH 35.0 MCHC 32.4 RDW Std Deviation 89.4 H Plt Count 26 L* D Neut % (Auto) 44 Lymph % (Auto) 42 [place] % (Auto) 8 Eos % (Auto) 5 Baso % (Auto) 1 Neut # (Auto) 1.0 L Lymph # (Auto) 0.9 L [place] # (Auto) 0.2 Eos # (Auto) 0.1 Baso # (Auto) 0.0 Immature Gran # (Auto) 0.00 Absolute Nucleated RBC 0.00 Immature Gran % 0 Nucleated RBC % 0 Sodium 148 H 149 H Potassium 4.4 D 4.5 Chloride 116 H 115 H Carbon Dioxide 23.1 22.1 Anion Gap 9 12 BUN 24 H 25 H Creatinine 1.5 H 1.2 Estim Creat Clear Calc 36.6 L 45.8 L eGFR 42 L 54 L BUN/Creatinine Ratio 16 21 H Glucose 129 H 151 H Calculated Osmolality 300 H 303 H Calcium 10.6 10.1 Corrected Calcium 11.1 H 10.3 H Phosphorus 4.4 Magnesium 1.7 Total Bilirubin 6.8 H AST 29 ALT 11 Alkaline Phosphatase 48 D Total Protein 6.7 Albumin 3.4 L 3.8 Globulin 2.9 Albumin/Globulin Ratio 1.3 Stool Occult Blood Positive A Misc Test Result Platelets confirmed Blood Type Antibody Screen Blood Bank Wristband ID 06/13/24 09:40 WBC RBC Hgb Hct MCV MCH MCHC RDW Std Deviation Plt Count Neut % (Auto) Lymph % (Auto) [place] % (Auto) Eos % (Auto) Baso % (Auto) Neut # (Auto) Lymph # (Auto) [place] # (Auto) Eos # (Auto) Baso # (Auto) Immature Gran # (Auto) Absolute Nucleated RBC Immature Gran % Nucleated RBC % Sodium Potassium Chloride Carbon Dioxide Anion Gap BUN Creatinine Estim Creat Clear Calc eGFR BUN/Creatinine Ratio Glucose Calculated Osmolality Calcium Corrected Calcium Phosphorus Magnesium Total Bilirubin AST ALT Alkaline Phosphatase Total Protein Albumin Globulin Albumin/Globulin Ratio Stool Occult Blood Misc Test Result Blood Type O Positive Antibody Screen NEGATIVE Blood Bank Wristband ID Yes ABG Interpretation ABG results: 06/12/24 14:30 VBG pH 7.37 VBG pCO2 45 VBG pO2 32 VBG Base Excess 0 Quality Measures Quality Measures none Assessment & Plan Assessment Current Active Medications: Generic Name Dose Route Start Last Admin Trade Name Freq PRN Reason Stop Dose Admin Acetaminophen 500 mg 06/12/24 16:53 Acetaminophen 325 Mg Tablet PO 07/12/24 16:52 Q6H PRN Fever >101.5 Hydrocodone Bitart/Acetaminophen 1 tab 06/12/24 16:53 06/13/24 13:48 Hydrocodone/Apap 5/325 Tablet PO 06/17/24 16:52 1 tab Q6HR PRN Administration PAIN SCALE 7-10 (Severe Dextrose 25 ml 06/12/24 16:33 Dextrose 50%-Water Inj 50 Ml Syringe IV 07/12/24 16:32 Q15MIN PRN BG 50-70 responsive npo pt Dextrose 50 ml 06/12/24 16:33 Dextrose 50%-Water Inj 50 Ml Syringe IV 07/12/24 16:32 Q15MIN PRN BG <50 OR BG <70 & pt unresponsive Glucagon 1 mg 06/12/24 16:33 Glucagon Inj 1 Mg Vial IM Q15MIN PRN BG <70, and no IV access Ceftriaxone Sodium/Dextrose 1 gm in 50 mls @ 100 mls/hr 06/12/24 17:07 06/13/24 08:28 Rocephin/D5w 1gm Iv Premix IV 06/19/24 17:06 100 mls/hr QDAY CELINA Administration Albumin Human 25 gm in 100 mls @ 100 mls/hr 06/13/24 17:30 Albuminar-25 Ivpb IV 06/13/24 18:29 1730 ONE Lactulose 20 gm 06/12/24 22:00 06/13/24 13:39 Lactulose Syrup 20 Gm/30 Ml Udc PO 07/12/24 21:59 20 gm TID CELINA Administration Protocol Midodrine 10 mg 06/13/24 08:00 06/13/24 13:40 Midodrine 5 Mg Tablet PO 07/13/24 07:59 10 mg TID CELINA Administration Ondansetron HCl 4 mg 06/12/24 16:53 Ondansetron Inj 2 Mg/Ml Inj 2 Ml IV 07/12/24 16:52 Q6H PRN NAUSEA OR VOMITING Protocol Pantoprazole Sodium 40 mg 06/13/24 09:00 06/13/24 08:28 Pantoprazole 40 Mg Tablet PO 07/13/24 08:59 40 mg QDAY CELINA Administration Rifaximin 550 mg 06/12/24 21:00 06/13/24 08:28 Rifaximin 550 Mg Tablet PO 06/19/24 20:59 550 mg BID CELINA Administration Plan A 53-year-old female with significant past medical history of cirrhosis, variceal bleed status post banding recurrent episodes of hepatic encephalopathy, recent admission in [facility] ([facility] on 05/26/2024 for hepatic encephalopathy again presented to the hospital with chief complaints of altered sensorium since 1 day and admitted in the hospital for hepatic encephalopathy and hepatorenal syndrome # Acute on chronic decompensated liver disease # Hepatic encephalopathy, resolving # Precipitated by Hyperkalemia, ? UGI Bleed - Patient was admitted to the hospital with chief complaints of altered sensorium since 1 day - Patient's mother at the bedside, reported that patient is taking lactulose but having only 1 bowel movement in a day - Denies vomitings, diarrhea, fever, shortness of breath, fever - Vitals are stable at the time of admission except for mildly low blood pressure, 97/57 mmHg - On physical examination, patient is alert awake and oriented but noted slowing of her mentation - Labs at the time of admission are significant for Hb 10.4, platelet count 49, INR 1.8, potassium 5.6, ammonia 98, total bilirubin 7.1 - Head CT done at the time of admission negative for infarct/hemorrhage - Child bobby C 10, MELD Na 24 -- poor prognosis Plan - Started on lactulose 20 g p.o. 3 times daily - Started on rifaximin 550 Mg p.o. twice daily - Will monitor for 2-3 bowel movements every day - Started on ceftriaxone 1 g IV daily - Consulted produce team member Dr. Culp, recommended UGI endoscopy - Patient is kept on N.P.O # LILY - Hepatorenal syndrome, resolving - Baseline creatinine on 06/12/2024 is 0.9 - Creatinine at the time of admission is 1.4, BUN 32 --> 06/13, 1.2 Plan - Started on midodrine 10 Mg p.o. 3 times daily - Purewick catheter is placed and will monitor strict input and output - Started on albumin 62.5 g for next 48 hours - Octreotide is held for now in view of bradycardia and will resume once the heart rate improves - Will avoid nephrotoxic medications and renally dose the medications # Hyperkalemia, resolved - Potassium at the time of admission is 5.6, likely secondary to LILY - Patient was given 1 g of calcium chloride, albuterol nebulization, 10 units of insulin in 50% dextrose, 1 dose of Kayexalate 30 - Potassium as of 06/13/2024 is 4.5 Plan - Will continue to monitor electrolytes and correct them as needed # Macrocytic anemia - Hemoglobin at the time of admission is 10.4 - Hemoglobin on 06/03/2024 is around 8 - Stool for occult blood is ordered, came back positive - Will undergo UGI endoscopy by today - Will monitor for bleeding manifestations # Thrombocytopenia secondary to cirrhosis - Platelet count at the time of admission is 49 - Will continue to watch for bleeding manifestations - Held chemical prophylaxis for DVT in view of thrombocytopenia # Bradycardia, resolved - Patient is on propranolol 10 Mg 3 times daily at home - Which could be the cause of bradycardia, withheld propranolol for now in view of hepatorenal syndrome Hospital Maintenance: Dispo: Telemetry DVT ppx: SCD GI ppx: Pantoprazole Diet: N.P.O till endoscopy IV lines: Peripheral Code status: Full Patient plan of care was discussed with the attending physician, Dr. Hernandes and senior resident Dr. Ananda Gandhi, PGY1
[2024-06-13] MEDS: ALBUMIN HUMAN 25% IVPB 25 GM/100 ML BTL IV ×2 (17:11→18:12)
[2024-06-13] MEDS: ALBUMIN HUMAN 25% IVPB 12.5 GM/50 ML BTL IV (19:56)
[2024-06-13 21:34] LABS: HCG,Qualitative Serum Negative
[2024-06-14] VITALS (10 sets, daily range): BP systolic 102–125; BP diastolic 55–66; PULSE 52–581; RESP 16–18; TEMP 36.3–37; O2SAT 96–98
[2024-06-14] MEDS: LACTULOSE SYRUP 20 GM/30 ML UDC PO ×3 (05:25→22:54)
[2024-06-14] MEDS: MIDODRINE 5 MG TABLET 10 MG PO ×2 (05:25→22:54)
[2024-06-14 05:58] LABS: Basophils % (Auto) 1 % (0-2.5); Eosinophils # (Auto) 0.1 Thou/mm3 (0.0-0.5); Eosinophils % (Auto) 6 % (0-10); Hematocrit 24.2 % (36.0-46.0); Immature Granulocytes % (Auto) 0 % (0-0); Lymphocytes # (Auto) 0.9 Thou/mm3 (1.0-4.8); Lymphocytes % (Auto) 44 % (10-50); Mean Corpuscular HGB Conc 33.1 g/dl (31.0-37.0); Mean Corpuscular Hemoglobin 34.8 pg (25.0-35.0); Mean Corpuscular Volume 105 fL (80-100); Monocytes # (Auto) 0.2 Thou/mm3 (0.0-0.8); Monocytes % (Auto) 8 % (0-12); Neutrophils # (Auto) 0.8 Thou/mm3 (1.8-7.7); Neutrophils % (Auto) 40 % (37-80); Nucleated Red Blood Cell % 0 /100 WBC (0); RDW Standard Deviation 84.5 fL (36.4-46.3)
[2024-06-14 06:05] LABS: Platelet Count 25 Thou/mm3 (140-440)
[2024-06-14 06:06] LABS: Slide Review Platelets confirmed
[2024-06-14 06:36] LABS: Alanine Aminotransferase 9 U/L (10-49); Albumin, Serum 4.1 gm/dL (3.5-5.0); Albumin/Globulin Ratio 1.6 (1.2-2.2); Alkaline Phosphatase 48 U/L (46-116); Anion Gap 8 (7-16); Aspartate Amino Transferase 24 U/L (0-34); BUN/Creatinine Ratio 22 Ratio (12-20); Bilirubin,Total 6.5 mg/dL (0.3-1.2); Blood Urea Nitrogen 20 mg/dL (9-23); Calcium 10.4 mg/dL (8.3-10.6); Calcium (Corrected) 10.4 mg/dL (8.5-10.1); Carbon Dioxide 23.6 mMol/L (20.0-31.0); Chloride 115 mMol/L (98-107); Creatinine (Component) 0.9 mg/dL (0.6-1.3); Globulin 2.6 gm/dL (2.3-3.5); Glucose 130 mg/dL (74-106); Osmolality,Calculated 297 (275-295); Potassium 4.2 mMol/L (3.4-5.1); Sodium 147 mMol/L (136-145); Total Protein 6.7 gm/dL (5.7-8.2); eGFR > 60 See Note
[2024-06-14] MEDS: cefTRIAXone/D5w 1gm IV premix 1 GM/50 ML BAG IV (09:17)
[2024-06-14] MEDS: PANTOPRAZOLE 40 MG TABLET PO (09:17)
[2024-06-14] MEDS: HYDROcodone/APAP 5/325 TABLET 1 TAB PO (09:17)
[2024-06-14] MEDS: rifaximin 550 MG TABLET PO ×2 (09:17→22:55)
[2024-06-14] MEDS: OCTREOTIDE ACET INJ 1,000 MCG in SODIUM CHLORIDE 0.9% 100 ML 5.1 MCG IV (11:15)
--- NOTE | 2024-06-14 11:33 | CHAP ---
Patient was visited by the Spiritual Care Volunteer who prayed for them. (Volunteer was in the hospital from 10:15-11:33).
--- NOTE | 2024-06-14 11:41 | PD.RESPRO ---
Documentation for date of: 06/14/24 Subjective Subjective Interval history: No acute overnight events noted. Seen and examined at bedside and patient mentation appears improved compared to prior as she is alert and oriented to self, birthday, place, and year. States that prior to admission, her lactulose dosage was decreased and was likely etiology of her hepatic encephalopathy. Specifically, her mother was giving her double the prescribed dosage (20 g TID) of lactulose and patient was having numerous BMs per day causing external hemorrhoids which prompted decreasing dosage to prescribed amount which was half from prior. Otherwise, she does not have any complaints. Spoke to GI today as well and recommended to resume octreotide despite bradycardia as patient underwent EGD and s/p 2 bands. Exam Vital Signs Temp Pulse Resp BP Pulse Ox O2 Del Method O2 Flow Rate 97.3 F 52 L 17 103/59 L 96 Room Air 3 06/14/24 08:00 06/14/24 08:00 06/14/24 08:00 06/14/24 08:00 06/14/24 08:00 06/14/24 08:00 06/13/24 21:40 Narrative Exam General: pleasant, AOx3, no acute distress, able to speak full sentences HEENT: NC/AT, mucous membranes moist, scleral icterus Cardiovascular: regular rate and rhythm, S1/S2 present, no murmurs appreciated Pulmonary: clear to auscultation bilaterally, no rales/rhonchi/wheezes Abdominal: tenderness to soft palpation, soft, non-distended, no rebound/guarding, normal bowel sounds present Musculoskeletal: normal ROM, no peripheral edema Skin: warm and dry, intact, no rashes Neuro: CN II-XII intact, no focal deficits Objective Labs 06/15/24 05:27 06/15/24 05:27 Labs: Laboratory Results - last 24 hr 06/13/24 06/14/24 04:40 04:20 WBC 2.0 L RBC 2.30 L Hgb 8.0 L Hct 24.2 L MCV 105 H MCH 34.8 MCHC 33.1 RDW Std Deviation 84.5 H Plt Count 25 L* Neut % (Auto) 40 Lymph % (Auto) 44 [place] % (Auto) 8 Eos % (Auto) 6 Baso % (Auto) 1 Neut # (Auto) 0.8 L Lymph # (Auto) 0.9 L [place] # (Auto) 0.2 Eos # (Auto) 0.1 Baso # (Auto) 0.0 Immature Gran # (Auto) 0.00 Absolute Nucleated RBC 0.00 Immature Gran % 0 Nucleated RBC % 0 Sodium 147 H Potassium 4.2 Chloride 115 H Carbon Dioxide 23.6 Anion Gap 8 BUN 20 Creatinine 0.9 Estim Creat Clear Calc 61.0 eGFR > 60 BUN/Creatinine Ratio 22 H Glucose 130 H Calculated Osmolality 297 H Calcium 10.4 Corrected Calcium 10.4 H Total Bilirubin 6.5 H AST 24 ALT 9 L Alkaline Phosphatase 48 Total Protein 6.7 Albumin 4.1 Globulin 2.6 Albumin/Globulin Ratio 1.6 HCG, Qual Negative Misc Test Result Platelets confirmed ABG Interpretation ABG results: 06/12/24 14:30 VBG pH 7.37 VBG pCO2 45 VBG pO2 32 VBG Base Excess 0 Quality Measures Quality Measures none Assessment & Plan Assessment Current Active Medications: Generic Name Dose Route Start Last Admin Trade Name Freq PRN Reason Stop Dose Admin Acetaminophen 500 mg 06/12/24 16:53 Acetaminophen 325 Mg Tablet PO 07/12/24 16:52 Q6H PRN Fever >101.5 Hydrocodone Bitart/Acetaminophen 1 tab 06/12/24 16:53 06/14/24 09:17 Hydrocodone/Apap 5/325 Tablet PO 06/17/24 16:52 1 tab Q6HR PRN Administration PAIN SCALE 7-10 (Severe Dextrose 25 ml 06/12/24 16:33 Dextrose 50%-Water Inj 50 Ml Syringe IV 07/12/24 16:32 Q15MIN PRN BG 50-70 responsive npo pt Dextrose 50 ml 06/12/24 16:33 Dextrose 50%-Water Inj 50 Ml Syringe IV 07/12/24 16:32 Q15MIN PRN BG <50 OR BG <70 & pt unresponsive Glucagon 1 mg 06/12/24 16:33 Glucagon Inj 1 Mg Vial IM Q15MIN PRN BG <70, and no IV access Ceftriaxone Sodium/Dextrose 1 gm in 50 mls @ 100 mls/hr 06/12/24 17:07 06/14/24 09:17 Rocephin/D5w 1gm Iv Premix IV 06/19/24 17:06 100 mls/hr QDAY CELINA Administration Octreotide Acetate 1,000 mcg/ 102 mls @ 5.1 mls/hr 06/14/24 11:09 Sodium Chloride IV 06/19/24 11:09 .Q20H CELINA Protocol 50 MCG/HR Lactulose 20 gm 06/12/24 22:00 06/14/24 05:25 Lactulose Syrup 20 Gm/30 Ml Udc PO 07/12/24 21:59 20 gm TID CELINA Administration Protocol Midodrine 10 mg 06/13/24 08:00 06/14/24 05:25 Midodrine 5 Mg Tablet PO 07/13/24 07:59 10 mg TID CELINA Administration Ondansetron HCl 4 mg 06/12/24 16:53 Ondansetron Inj 2 Mg/Ml Inj 2 Ml IV 07/12/24 16:52 Q6H PRN NAUSEA OR VOMITING Protocol Pantoprazole Sodium 40 mg 06/13/24 09:00 06/14/24 09:17 Pantoprazole 40 Mg Tablet PO 07/13/24 08:59 40 mg QDAY CELINA Administration Rifaximin 550 mg 06/12/24 21:00 06/14/24 09:17 Rifaximin 550 Mg Tablet PO 06/19/24 20:59 550 mg BID CELINA Administration Plan Elzbieta Knight is a 53-year-old female with past medical history of cirrhosis, variceal bleeding status post banding, recurrent episodes of hepatic encephalopathy who presented with altered sensorium x1 day and admitted for hepatic encephalopathy and hepatorenal syndrome. #Acute on chronic decompensated liver disease #Hepatic encephalopathy, resolved #History of esophageal bleeding status post band ligation States that prior to admission, her lactulose dosage was decreased and was likely etiology of her hepatic encephalopathy. Specifically, her mother was giving her double the prescribed dosage (20 g TID) of lactulose and patient was having numerous BMs per day causing external hemorrhoids which prompted decreasing dosage to prescribed amount which was half from prior. Otherwise, she does not have any complaints. Spoke to GI as well and recommended to resume octreotide despite bradycardia as patient underwent EGD and s/p [address] done at the time of admission negative for infarct/hemorrhage Child bobby C 10, MELD Na 24 -> poor prognosis ? Lactulose 20 g p.o. daily, titrate to 2-3 bowel movements per day ? Rifaximin 550 mg p.o. twice daily ? Ceftriaxone 1 g IV daily ? Octreotide drip (05/01-) #Acute kidney injury, resolved #? Hepatorenal syndrome Baseline creatinine estimated to be 0.9-1.0 and presented with creatinine of 1.4. ? Midodrine 10 mg p.o. 3 times daily ? Octreotide drip ? Avoid nephrotoxic agents, renally dose medications ? Purewick placed and will monitor strict input and output #Macrocytic anemia Hemoglobin on admission 10.4 that dropped to ~8.0 and stool occult blood was positive so GI was consulted and underwent EGD as noted above. ? Will monitor for bleeding manifestations #Thrombocytopenia secondary to cirrhosis Platelet count on admission 49. ? Will continue to watch for bleeding manifestations ? Held chemical prophylaxis for DVT #Bradycardia, resolved Patient is on propranolol 10 mg 3 times daily at home ? Held propranolol for now in view of hepatorenal syndrome #Hyperkalemia, resolved Hospital Maintenance: Dispo: Telemetry DVT ppx: SCD GI ppx: Pantoprazole Diet: full liquid IV lines: Peripheral Code status: Full ----- Plan discussed with attending physician Dr. Prince Albright MD PGY-1 Internal Medicine Attending Provider Attestation/Addendum I reviewed labs, imaging, EKG, home medications and prior available records. Face to face evaluation was performed by me. I have personally examined the patient and discussed assessment and plan with the IM team. I reviewed the resident note and agree with the plan with exceptions as below. Hepatic encephalopathy End-stage liver disease Esophageal varices status post banding Thrombocytopenia Macrocytic anemia LILY Sinus bradycardia Status post EGD that showed grade 3 esophageal varices status post banding Discussed with GI: Okay to start octreotide despite bradycardia Continue lactulose and rifaximin. Monitor for bowel movements Monitor platelet level. Monitor for bleeding Monitor CBC
--- NOTE | 2024-06-14 19:20 | ESPR_ITS ---
Documentation for date of: 06/14/24 Subjective Subjective Interval history: Patient evaluated Hemoglobin hematocrit 8.0 and 24.2 Platelet count 25,000 Pro time INR 1.8 Exam Vital Signs Temp Pulse Resp BP Pulse Ox O2 Del Method O2 Flow Rate 98.6 F 59 L 18 118/66 98 Room Air 3 06/14/24 16:00 06/14/24 19:16 06/14/24 16:00 06/14/24 16:00 06/14/24 16:00 06/14/24 16:00 06/13/24 21:40 Objective Labs 06/14/24 04:20 06/14/24 04:20 Labs: Laboratory Results - last 24 hr 06/13/24 06/14/24 04:40 04:20 WBC 2.0 L RBC 2.30 L Hgb 8.0 L Hct 24.2 L MCV 105 H MCH 34.8 MCHC 33.1 RDW Std Deviation 84.5 H Plt Count 25 L* Neut % (Auto) 40 Lymph % (Auto) 44 [place] % (Auto) 8 Eos % (Auto) 6 Baso % (Auto) 1 Neut # (Auto) 0.8 L Lymph # (Auto) 0.9 L [place] # (Auto) 0.2 Eos # (Auto) 0.1 Baso # (Auto) 0.0 Immature Gran # (Auto) 0.00 Absolute Nucleated RBC 0.00 Immature Gran % 0 Nucleated RBC % 0 Sodium 147 H Potassium 4.2 Chloride 115 H Carbon Dioxide 23.6 Anion Gap 8 BUN 20 Creatinine 0.9 Estim Creat Clear Calc 61.0 eGFR > 60 BUN/Creatinine Ratio 22 H Glucose 130 H Calculated Osmolality 297 H Calcium 10.4 Corrected Calcium 10.4 H Total Bilirubin 6.5 H AST 24 ALT 9 L Alkaline Phosphatase 48 Total Protein 6.7 Albumin 4.1 Globulin 2.6 Albumin/Globulin Ratio 1.6 HCG, Qual Negative Misc Test Result Platelets confirmed Impressions Impression: Esophageal variceal bleeding requiring dilatation Advance diet to 2 g sodium diet Continue octreotide infusion ABG Interpretation ABG results: 06/12/24 14:30 VBG pH 7.37 VBG pCO2 45 VBG pO2 32 VBG Base Excess 0 Assessment & Plan A&P Narrative # Acute hepatic/metabolic encephalopathy Agree with lactulose and Xifaxan N.p.o. Follow ammonia level # Chronic liver disease secondary to alcohol Once awake and alert 2 g sodium diet # Thrombocytopenia due to chronic liver disease with advanced portal hypertension and splenomegaly Thank you very much for the opportunity to participate in care of this patient Time Spent With Patient Time: Total time spent is greater than 50% in coordination of care (as documented) at patient's floor/unit and/or counseling patient:
[2024-06-15] VITALS (8 sets, daily range): BP systolic 100–122; BP diastolic 63–83; PULSE 56–61; RESP 16; TEMP 36.4–37.2; O2SAT 96–98
[2024-06-15] MEDS: MIDODRINE 5 MG TABLET 10 MG PO ×2 (06:13→13:17)
[2024-06-15 06:23] LABS: Basophils % (Auto) 0 % (0-2.5); Eosinophils # (Auto) 0.1 Thou/mm3 (0.0-0.5); Eosinophils % (Auto) 5 % (0-10); Hematocrit 25.7 % (36.0-46.0); Immature Granulocytes % (Auto) 0 % (0-0); Lymphocytes # (Auto) 0.6 Thou/mm3 (1.0-4.8); Lymphocytes % (Auto) 25 % (10-50); Mean Corpuscular HGB Conc 33.9 g/dl (31.0-37.0); Mean Corpuscular Hemoglobin 35.4 pg (25.0-35.0); Mean Corpuscular Volume 105 fL (80-100); Monocytes # (Auto) 0.2 Thou/mm3 (0.0-0.8); Monocytes % (Auto) 9 % (0-12); Neutrophils # (Auto) 1.4 Thou/mm3 (1.8-7.7); Neutrophils % (Auto) 61 % (37-80); Nucleated Red Blood Cell % 0 /100 WBC (0); RDW Standard Deviation 80.4 fL (36.4-46.3); Red Blood Count 2.46 Miln/mm3 (4.00-5.20)
[2024-06-15 06:25] LABS: Hemoglobin 8.7 g/dL (12.0-16.0); White Blood Count 2.4 Thou/mm3 (3.6-11.0)
[2024-06-15 06:26] LABS: Platelet Count 26 Thou/mm3 (140-440)
[2024-06-15 07:12] LABS: Alanine Aminotransferase 9 U/L (10-49); Albumin, Serum 4.1 gm/dL (3.5-5.0); Albumin/Globulin Ratio 1.5 (1.2-2.2); Alkaline Phosphatase 60 U/L (46-116); Anion Gap 8 (7-16); Aspartate Amino Transferase 24 U/L (0-34); BUN/Creatinine Ratio 14 Ratio (12-20); Bilirubin,Total 6.6 mg/dL (0.3-1.2); Blood Urea Nitrogen 14 mg/dL (9-23); Carbon Dioxide 27.5 mMol/L (20.0-31.0); Chloride 107 mMol/L (98-107); Estimated Creatinine Clearance 54.9 mL/min (>60); Globulin 2.7 gm/dL (2.3-3.5); Glucose 143 mg/dL (74-106); Osmolality,Calculated 285 (275-295); Potassium 4.8 mMol/L (3.4-5.1); Sodium 142 mMol/L (136-145); Total Protein 6.8 gm/dL (5.7-8.2); eGFR > 60 See Note
[2024-06-15 07:15] LABS: Slide Review Platelets confirmed
[2024-06-15] MEDS: rifaximin 550 MG TABLET PO (08:19)
[2024-06-15] MEDS: PANTOPRAZOLE 40 MG TABLET PO (08:19)
[2024-06-15] MEDS: cefTRIAXone/D5w 1gm IV premix 1 GM/50 ML BAG IV (08:19)
[2024-06-15] MEDS: OCTREOTIDE ACET INJ 1,000 MCG in SODIUM CHLORIDE 0.9% 100 ML 5.1 MCG IV (08:19)
--- NOTE | 2024-06-15 10:53 | CHAP ---
Patient expressed gratitude for visit and prayer.
--- NOTE | 2024-06-15 11:04 | PC.SS ---
SS follow up note; Pending Dr. Culp's rec's. Possible discharge tomorrow.
--- NOTE | 2024-06-15 11:25 | PC.NURSE ---
Dr. Patton made aware pt nish to 53, patient was sleeping easy to arouse and HR up to 60. no new orders.
--- NOTE | 2024-06-15 12:05 | PD.RESDS ---
Planned Discharge Date 06/15/24 DS: Providers Provider Date of admission: 06/12/24 16:53 Primary care physician: Physician No Primary/Family Admitting Provider: Geoff Hernandes MD Attending Provider on Admission: Paras Morrison MD Consults: 06/12/24 18:29 Consult to Gastroenterology Routine Comment: Hepatic encephalopathy and Hepatorenal syndrome Consulting Provider: Brenda Culp 06/12/24 20:01 Referral Infection Control Routine Comment: Reason for Infection Control Referral: Readmitted within 30 days 06/13/24 05:19 Referral Registered Dietitian Routine Comment: Referral Wound Care Routine Comment: Attending Provider on DC: Ken Albright MD Discharging Provider: Ken Albright MD DS: Diagnosis Problem List Completed Was Problem List Reviewed/Reconciled?: Yes Hospital Course Hospital Course Hospital course: Elzbieta Knight is a 53-year-old female with a past medical history of cirrhosis, variceal bleed status post banding episodes of hepatic with most recent admission with same on 05/26/24 now presents to the hospital with altered sensorium for one day. Per patient she had been taking double her prescribed dosage of lactulose and recently went back down to her normal dose and was then found to be encephalopathic by her family and was brought to the ED. On admission she denied fever, emesis, diarrhea, swelling, shortness of breath, or chest pain but did endorse some nausea. On lactulose twice TID added with 2-3 bowel movement rifaximin milligrams twice daily and encephalopathy improved. However during hospital course hemoglobin dropped from 10.4 on admission to 7.9 the following day. FOBT was obtained and was positive and so GI was consulted for which patient underwent EGD and found to have grade 3 varices status post 2 bands, diffuse moderately erythematous mucosa with stigmata of recent bleeding in gastric antrum. She was placed on octreotide drip for 1 day and hemoglobin stabilized from 8.0 to 8.7. Touched base with GI and stated that patient was stable for discharge from their persepctive. Given that patient's mentation also improved, vitals stable, labs abnormal but stable for patient, then also deemed stable for discharge from medicine perspective. Diagnoses during admission: #Acute on chronic decompensated liver disease #Hepatic encephalopathy, resolved #History of esophageal bleeding status post band ligation #Acute kidney injury, resolved #Macrocytic anemia #Thrombocytopenia secondary to cirrhosis #Hyperbilirubinemia #Bradycardia #Hyperkalemia, resolved Discharge instructions: ? Lactulose doses changed to 10 g every 4 hours ? Titrate to have 2-3 bowel movements per day ? If less than 2-3 BMs per day, can increase to total of 80 g per day ? If more than 2-3 BMs per day, can decrease to total of 50 g per day, then 40 g per day if continuing to have more than 2-3 BMs ? Continue taking all other home medications as prescribed ? Follow-up with PCP within 1-2 weeks of discharge ? Discuss updates regarding lactulose ? Inquire regarding process for transplant/hepatology appointment ? Return to ED if symptoms worsen or recur Time Spent with Patient Time attestation: Total time spent providing and/or coordinating discharge services: Time spent: Greater than 30 minutes Home Health Home Health Referral Orders: 06/15/24 10:51 Home Health Referral Routine Reason For Exam: Home PT Home-Bound The patient must either because of illness or injury, need the aid of supportive devices such as crutches, canes, wheelchairs, and walkers; the use of special transportation; or the assistance of another person in order to leave their place of residence; OR have a condition such that leaving his or her home is medically contraindicated. In addition, the patient also meets the following criteria: patient is normally unable to leave the home and leaving home requires considerable taxing effort. Addendum to Home Health Certification Practitioner's Certification: I certify that the patient has been under my care in the hospital and the care of attending physician (see below). We had a [id number] encounter on (see date below). My clinical findings indicate that the patient is home bound per the above criteria and the Home Health Services noted in these orders are medically necessary. The primary reason for the [id number] encounter is related to the fact that the patient requires home health services. Date Certifying [id number] Physician Encounter: 06/12/24 Physician's Name who will Assume Oversight for Services: Alexandre Benites Physician's Phone No.who will Assume Oversight for Service: AGAPITO TALBOTW - Community Resources: Yes PT to Evaluate: Yes PT to evaluate and provide a treatmnet plan to increase patient's mobility and strength. Wound Care: No IV Therapy: No RN Safety Evaluation: Yes RN to evaluate and create a plan of care that will produce positive outcomes. Palliative Treatment: No Palliative treatment and evaluate the need for hospice. Home Health Aide - Personal Care: Yes Home Health Aide to assist with any ADL's. Exam Vital Signs Temp Pulse Resp BP Pulse Ox O2 Del Method O2 Flow Rate 97.9 F 56 L 16 106/83 98 Room Air 3 06/15/24 08:00 06/15/24 11:24 06/15/24 08:00 06/15/24 08:00 06/15/24 08:00 06/15/24 08:00 06/13/24 21:40 Narrative Exam General: pleasant, AOx3, no acute distress, able to speak full sentences HEENT: NC/AT, mucous membranes moist, scleral icterus Cardiovascular: regular rate and rhythm, S1/S2 present, no murmurs appreciated Pulmonary: clear to auscultation bilaterally, no rales/rhonchi/wheezes Abdominal: tenderness to soft palpation, soft, non-distended, no rebound/guarding, normal bowel sounds present Musculoskeletal: normal ROM, no peripheral edema Skin: warm and dry, intact, no rashes Neuro: CN II-XII intact, no focal deficits Discharge Plan Plan Patient Disposition: Home w/HOME HEALTH Disposition Comment: Hospitalist admit Care Plan Goals: ? Lactulose doses changed to 10 g every 4 hours ? Titrate to have 2-3 bowel movements per day ? If less than 2-3 BMs per day, can increase to total of 80 g per day ? If more than 2-3 BMs per day, can decrease to total of 50 g per day, then 40 g per day if continuing to have more than 2-3 BMs ? Continue taking all other home medications as prescribed ? Follow-up with PCP within 1-2 weeks of discharge ? Discuss updates regarding lactulose ? Inquire regarding process for transplant/hepatology appointment ? Return to ED if symptoms worsen or recur Prescriptions/Referrals Prescriptions/Med Rec: New lactulose 10 gram/15 mL solution 10 g PO Q4H Qty: 3000 0RF hydrocodone-acetaminophen 5-325 mg tablet 1 tab PO BID MDD 2 tabs PRN (Reason: pain) 3 Days Qty: 6 0RF Continued spironolactone 25 mg tablet 50 mg PO QDAY Qty: 30 0RF methocarbamol 750 mg Tablet 750 mg PO BID ergocalciferol (vitamin D2) [Vitamin D2] 1,250 mcg (50,000 unit) Capsule 1,250 mcg PO QWEEK Xifaxan 550 mg tablet 550 mg PO BID Patient Comments: TAKE 1 TABLET BY MOUTH TWICE A DAY FOR 1 MONTH multivitamin with folic acid [Daily-Dena (with folic acid)] 400 mcg tablet 1 tab PO QAM Qty: 30 0RF furosemide [Lasix] 20 mg tablet 20 mg PO QDAY Qty: 90 0RF Rx Instructions: Hold if SBP drops below 100 and DBP below 60 mmHg multivitamin Tablet 1 tab PO QDAY Patient Comments: TAKE 1 TABLET BY MOUTH ONCE DAILY EVERY MORNING AT 9AM mirtazapine 15 mg tablet 15 mg PO HS Patient Comments: TAKE 1 TABLET BY MOUTH AT BEDTIME midodrine 10 mg tablet 10 mg PO TID 14 Days Qty: 42 0RF Rx Instructions: do not give last dose of day after 6PM or within 4 hrs of bedtime pantoprazole [Protonix] 40 mg tablet,delayed release (DR/EC) 40 mg PO BID Qty: 30 0RF propranolol 20 mg tablet 20 mg PO BID Discontinued hydrocodone-acetaminophen 5-325 mg tablet 1 tab PO Q12H PRN (Reason: pain) Patient Comments: TAKE 1 TABLET BY MOUTH ONCE A DAY NEEDED FOR PAIN. DOSE TAMPERING No Action lactulose 20 gram/30 mL Solution 30 g PO TID 30 Days Qty: 4050 1RF Referrals: No Primary/Family,Physician [Primary Care Provider] - Patient/Caregiver Discharge Instructions Discharge Activity: activity as tolerated Education Materials: ED Cirrhosis Print Language: Spanish Stand Alone Forms: Mervat Award Info., Patient Portal Info Letter Discharge Order Discharge Orders: Discharge (Routine); Ordered 06/15/24 Ordered By: Ken Quintero [facility] Quality Discharge Quality Measures VTE prophylaxis (SCDs) Attestestation Attestation I reviewed labs, imaging, EKG, home medications and prior available records. Face to face evaluation was performed by me. I have personally examined the patient and discussed assessment and plan with the IM team. I reviewed the resident note and agree with the plan with exceptions as below. Hepatic encephalopathy End-stage liver disease Esophageal varices status post banding Thrombocytopenia Macrocytic anemia LILY Sinus bradycardia Status post EGD that showed grade 3 esophageal varices status post banding Discussed with GI: Okay to start octreotide despite bradycardia Continue lactulose and rifaximin. Space out lactulose to 10 g every 4 hours. Adjust based on the number of bowel movements Monitor platelet level. Monitor for bleeding Monitor CBC Outpatient follow-up with hepatology Time spent is 40 minutes. More than 50% of the time was spent on patient education and coordination of care.
--- NOTE | 2024-06-15 12:08 | ESPR_ITS ---
Documentation for date of: 06/15/24 Subjective Subjective Interval history: Patient evaluated Hemoglobin hematocrit 8.7 and 25.7 On octreotide Case discussed with internal medicine team Patient can be discharged home We do not have the complete 5 days of octreotide infusion Exam Vital Signs Temp Pulse Resp BP Pulse Ox O2 Del Method O2 Flow Rate 97.9 F 56 L 16 106/83 98 Room Air 3 06/15/24 08:00 06/15/24 11:24 06/15/24 08:00 06/15/24 08:00 06/15/24 08:00 06/15/24 08:00 06/13/24 21:40 Objective Labs 06/15/24 05:27 06/15/24 05:27 Labs: Laboratory Results - last 24 hr 06/15/24 05:27 WBC 2.4 L RBC 2.46 L Hgb 8.7 L Hct 25.7 L MCV 105 H MCH 35.4 H MCHC 33.9 RDW Std Deviation 80.4 H Plt Count 26 L* Neut % (Auto) 61 Lymph % (Auto) 25 [place] % (Auto) 9 Eos % (Auto) 5 Baso % (Auto) 0 Neut # (Auto) 1.4 L Lymph # (Auto) 0.6 L [place] # (Auto) 0.2 Eos # (Auto) 0.1 Baso # (Auto) 0.0 Immature Gran # (Auto) 0.00 Absolute Nucleated RBC 0.00 Immature Gran % 0 Nucleated RBC % 0 Sodium 142 Potassium 4.8 D Chloride 107 Carbon Dioxide 27.5 Anion Gap 8 BUN 14 Creatinine 1.0 Estim Creat Clear Calc 54.9 L eGFR > 60 BUN/Creatinine Ratio 14 Glucose 143 H Calculated Osmolality 285 Calcium 10.0 Corrected Calcium 10.0 Total Bilirubin 6.6 H AST 24 ALT 9 L Alkaline Phosphatase 60 D Total Protein 6.8 Albumin 4.1 Globulin 2.7 Albumin/Globulin Ratio 1.5 Misc Test Result Platelets confirmed Impressions Impression: # Acute posthemorrhagic anemia requiring dilatation of the esophageal varices # Hypertensive portal gastropathy in the setting of cirrhotic liver disease due to alcohol # Advanced portal hypertension with thrombocytopenia and coagulopathy Plan As under HPI ABG Interpretation ABG results: 06/12/24 14:30 VBG pH 7.37 VBG pCO2 45 VBG pO2 32 VBG Base Excess 0 Assessment & Plan A&P Narrative # Acute hepatic/metabolic encephalopathy Agree with lactulose and Xifaxan N.p.o. Follow ammonia level # Chronic liver disease secondary to alcohol Once awake and alert 2 g sodium diet # Thrombocytopenia due to chronic liver disease with advanced portal hypertension and splenomegaly Thank you very much for the opportunity to participate in care of this patient Time Spent With Patient Time: Total time spent is greater than 50% in coordination of care (as documented) at patient's floor/unit and/or counseling patient:
--- NOTE | 2024-06-15 12:58 | PC.NURSE ---
BS 228, Dr. Leon Albright made aware. no new orders.
[2024-06-15] MEDS: ACETAMINOPHEN 325 MG TABLET 500 MG PO (16:11)
--- NOTE | 2024-06-16 12:56 | PC.CC ---
Addendum entered by Brennon Ac RN 06/16/24 14:33: [facility] accepted the pt. Booked [facility]. Start of care date is 06/18/24. Original Note: HH referral sent on [facility]. Awaiting responses. Pending start of care date.
== END 2024-06-15 16:53 | disposition home health service (06) | DRG 280 ==
LOC: SERX 16:24 → SERHOLD 17:15 → S3NX 19:28
PROVIDERS: Nurse Practitioner Primary Care; Specialist; Student in an Organized Health Care Education/Training Program; Admitting Provider Internal Medicine; Emergency Provider Emergency Medicine; Visit Provider Student in an Organized Health Care Education/Training Program
PROC: 06L38CZ Occlusion of Esophageal Vein with Extraluminal Device, Via Natural or Artificial Opening Endoscopic (ICD-10-PCS; CPT 43239; principal; 2024-06-13 20:45)
DX: K74.60 Unspecified cirrhosis of liver (principal); K70.9 Alcoholic liver disease, unspecified; I95.9 Hypotension, unspecified; K76.82 Hepatic encephalopathy; N17.9 Acute kidney failure, unspecified; E87.5 Hyperkalemia; D69.59 Other secondary thrombocytopenia; R00.1 Bradycardia, unspecified; K76.6 Portal hypertension; R16.1 Splenomegaly, not elsewhere classified; D62 Acute posthemorrhagic anemia; G93.41 Metabolic encephalopathy; I85.11 Secondary esophageal varices with bleeding; K31.89 Other diseases of stomach and duodenum; K72.10 Chronic hepatic failure without coma; D53.9 Nutritional anemia, unspecified; D68.9 Coagulation defect, unspecified; E86.0 Dehydration; K76.7 Hepatorenal syndrome; Z79.899 Other long term (current) drug therapy
CPT/HCPCS: 36415; 70450; 71045; 80053; 80069; 80307; 81001; 82140; 82270; 82803; 83615; 83735; 83880; 84484; 84703; 85025; 85610; 85730; 86850; 86900; 86901; 87081; 93005; 93225; 94640; 96361; 96365; 96375; 99285; A4217; A4649; J0696; J1200; J1815; J2250; J2354; J3010; J7040; J7050; P9047; A9270

== ENCOUNTER 2024-06-21 10:39 | Outpatient (AMB) | payer MEDICAID, SELFPAY ==
[2024-06-21 11:00] VITALS: BP 107/69; PULSE 49; RESP 18; TEMP 36.4; O2SAT 98
--- NOTE | 2024-06-21 11:00 | ACNOTE_ITS ---
Vital Signs 06/21/24 11:00 Weight 65.771 kg Weight Measurement Method Standing Scale BP 107/69 Blood Pressure Source Automatic Cuff Blood Pressure Location Right Upper Arm Position Sitting Respiration 18 Pulse 49 L Pulse Source Monitor Temp 97.6 F Temp Source Temporal Artery Scan Pulse Oximetry (%) 98 Oxygen Delivery Method Room Air Allergies/Meds Allergies & Medications Allergies latex Allergy (Severe, Verified 06/21/24 11:01) Hives Medication Reconciliation rifaximin 550 mg tablet (Xifaxan) 550 mg PO BID 01/12/24 [History Confirmed 06/21/24] lactulose 20 gram/30 mL oral solution 30 g (45 mL) PO TID 30 days #4,050 mL 01/31/24 [Rx Confirmed 06/21/24] ergocalciferol (vitamin D2) 1,250 mcg (50,000 unit) capsule (Vitamin D2) 1,250 mcg PO QWEEK 02/06/24 [History Confirmed 06/21/24] methocarbamol 750 mg tablet 750 mg PO BID 02/06/24 [History Confirmed 06/21/24] furosemide 20 mg tablet (Lasix) 20 mg PO QDAY #90 tabs 04/16/24 [Rx Confirmed 06/21/24] multivitamin 1 tab PO QDAY 05/11/24 [History Confirmed 06/21/24] pantoprazole 40 mg tablet,delayed release (Protonix) 40 mg PO BID #30 tabs 06/03/24 [Rx Confirmed 06/21/24] spironolactone 25 mg tablet 50 mg (2 x 25 mg) PO QDAY #30 tabs 06/08/24 [Rx Confirmed 06/21/24] propranolol 20 mg tablet 20 mg PO BID 06/13/24 [History Confirmed 06/21/24] lactulose 10 gram/15 mL oral solution 10 g (15 mL) PO Q4H #3,000 mL 06/15/24 [Rx Confirmed 06/21/24] hydrocodone 5 mg-acetaminophen 325 mg tablet 1 tab PO BID PRN pain 1 month #30 tabs 06/21/24 [Rx] midodrine 5 mg tablet 5 mg PO TID 1 month #90 tabs 06/21/24 [Rx] mirtazapine 15 mg tablet 15 mg PO HS 1 month #30 tabs 06/21/24 [Rx] multivitamin with folic acid 400 mcg tablet (Daily-Dena (with folic acid)) 1 tab PO QAM #30 tabs 06/21/24 [Rx] propranolol 10 mg tablet 10 mg PO BID 1 month #60 tabs 06/21/24 [Rx] MA Intake Visit Data Collection New Patient or Established: Established Patient (seen at [facility] within 3 years) Seen by Clinical Staff ONLY (RN/MA): No Pain Present Currently: No Pain scale:: 0 Pain Scale Used: [place]and[place]-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 Required: No PCP or OBGYN visit in last 3 months: No Hx Now: No Do You Feel Safe at Home: Yes Authorities Contacted: N/A Smoking Status Smoking Status: Never smoker Immunization / Flu Flu Vaccine in the Last 12 Months: No Flu Vaccine Exclusion Criteria: No Exclusion Criteria Past Medical History Past Medical History NEUROLOGIC: Positive Neurological Disorders, Migraine and Spinal Cord Injury; Negative Seizures CARDIAC: Positive Cardiac Disorders and Hypotension; Negative Congestive Heart Failure RESPIRATORY: Negative Chronic Obstructive Pulmonary Disease (COPD) or Asthma GASTROINTESTINAL: Positive Gastrointestinal Disorders, Cirrhosis, Gastrointestinal Bleed, Esophageal Varices and Hemorrhoids GENITOURINARY: Negative Renal Disease REPRODUCTIVE: Positive Endometriosis and Previous Pregnancies ENDOCRINE: Positive Endocrine Disorders and Diabetes Mellitus Type 2; Negative Diabetes Mellitus Type 1 HEMATOLOGIC: Positive Blood Disorders and Anemia; Negative Sickle Cell Disease PSYCHO/SOCIAL: Positive Depression and Anxiety OTHER HISTORY: Positive Blood Transfusions, Chicken Pox and Measles; Negative Autoimmune Disease, Blood Transfusion Reaction, Anesthesia Reactions or Cancer Family History FAMILY HISTORY: Positive Family Psychiatric Problems and Family Cancer; Negative Family Respiratory Disorders, Family Cardiac Disorders, Family Gastrointestinal Problems, Family Surgery or Family Anesthesia Reaction Surgical History SURGICAL: Positive Section Social History SMOKING STATUS: Smoking status: Never smoker SECOND HAND EXPOSURE: second hand exposure: No ALCOHOL: Alcohol Intake: Never ALCOHOL FREQUENCY: Alcohol Intake Frequency: 3 or More Drinks per Day HOUSING: Housing: House LIVES WITH: Lives With: Children and Family Patient Portal Questionaires Social History Living Situation History Housing: House Housing Other:: Pt lives with mom, ex , and her kids Tobacco History Smoking Status: Never smoker Second Hand Smoke Exposure: No Alcohol History Alcohol Intake: Never Alcohol Intake Frequency: 3 or More Drinks per Day Alcohol Intake Frequency Other:: 5 drinks a day Domestic Abuse History Do You Feel Safe at Home: Yes Review of Systems Report any current symptoms Only answer those that you have currently: Past Medical History Past Medical History Have you ever been diagnosed with any of the following: Neurological Problems Seizures: No Migraine: Yes Spinal Cord Injury: Yes Cardiology Problems Congestive Heart Failure: No Hypotension: Yes Respiratory Problems Chronic Obstructive Pulmonary Disease (COPD): No Asthma: No Stomache/Intestinal Problems Cirrhosis: Yes Gastrointestinal Bleed: Yes Esophageal Varices: Yes Hemorrhoids: Yes Genital/Urinary Problems Renal Disease: No Reproductive Problems Endometriosis: Yes Previous Pregnancies: Yes Endocrine Problems Diabetes Mellitus Type 1: No Diabetes Mellitus Type 2: Yes Blood Problems Anemia: Yes Sickle Cell Disease: No Psychologic Problems Depression: Yes Anxiety: Yes Other Problems Autoimmune Disease: No Blood Transfusions: Yes Blood Transfusion Reaction: No Anesthesia Reactions: No Chicken Pox: Yes Measles: Yes Cancer: No History of Present Illness HPI Narrative Elzbieta Knight is a 53 y/o female with recurrent hepatic encephalopathy 2/2 cirrhosis who comes in for a hospital follow up. She reports that she has been titrating her lactulose. She also says she is still trying to see her liver transplant specialist. She is requesting for pain medicine refill. She does say that she has been taking her propanolol as well. No other complaints at this time. Review of Systems Review of Systems Narrative Review of Systems: Constitutional: No fever, chills, fatigue, weakness, weight loss HEENT: No eye pain, vision loss, ear pain, hearing loss, dysphagia, Cardiovascular: No chest pain, palpitations, edema, pain with walking Respiratory: No cough, shortness of breath, wheezing GI: No NVD, abdominal pain, constipation, blood in stool, loss of appetite, heartburn Extremities: No presence of pitting edema MSK: No back pain, joint pain, joint swelling Neuro: No dizziness, numbness, weakness, headaches, seizures, tremors Psych: No anxiety, depression Objective/Exam Narrative Physical exam: General: AAOx3, NAD, appears to be frail, sitting in her wheelchair, wearing glasses HEENT: Moist mucous membranes, conjunctiva clear, EOMI, PERRLA, Cardiovascular: S1, S2, radial pulses +2 bilat, RRR Pulmonary: CTAB bilat no cough, no wheezing GI: No tenderness to light or deep palpitation, no guarding, rigidity, rebound tenderness or distension Extremities: No presence of trace or pitting edema in lower extremities bilaterally, dorsalis pedis pulses +2 bilaterally Skin: Some jaundice present throughout body Neuro: AAOx3, no focal motor or sensory deficits in the UE or LE bilat Psych: Good judgement, thought and behavior Assessment & Plan Diagnosis / Problem List (1) Cirrhosis: Status: Acute Qualifiers: Hepatic cirrhosis type: alcoholic cirrhosis Ascites presence: without ascites Qualified Code(s): K70.30 - Alcoholic cirrhosis of liver without ascites Assessment & Plan: Pt is currently on liver transplant list She has recurrent visits to ED for Acute decompensated liver disease She will need to continue titrating her lactulose for up to 2-3 bowel movements or up to 80 g in one day I will check a CMP to resume spirnolactone as well Plan: 1. Lactulose 10 g TID, up to 80 g in one day 2. Follow up Renal panel to see if spirnolactone can be resumed 3. Continue with Propanolol 10 mg BID, hold if HR is below 55 4. [place] 5 BID as needed for pain (2) Asymptomatic bradycardia: Status: Acute Assessment & Plan: HR was 49 in cllinic, likely related to propanolol use HR goal of 55-60 Plan: 1. Propanolol 10 mg BID, hold if HR if below 55 Orders: Orders Renal Function Panel Today N17.9 - Acute kidney failure, unspecified Office Procedures [facility] Level of Care Nursing/Assessment Patient Status: Established Patient Nursing Assessment/Reassessment: Medication Reconciliation, Update PMH in EMR and Vital Signs Coordination of Care: Complex Care and Chronic Disease 1-5, Consent,records obtained, informed consent, Education Simp Pt/Fam and Staff clarify orders Established Patient Charge Established Patient Point Assignment: 85 Established Patient Point Charge: Level 3 (80-115)
== END 2024-06-21 12:04 | disposition home or self-care (01) ==
LOC: HODAHC 10:39
PROVIDERS: Supervising Provider Internal Medicine
DX: K70.30 Alcoholic cirrhosis of liver without ascites (principal); K76.82 Hepatic encephalopathy; Z76.82 Awaiting organ transplant status
CPT/HCPCS: 99213; G0463

== ENCOUNTER 2024-06-25 14:28 | Inpatient (IN) | payer MEDICAID, SELFPAY ==
[2024-06-25 14:38] VITALS: BP 109/67; PULSE 42; RESP 16; TEMP 36.8; O2SAT 98
--- NOTE | 2024-06-25 14:46 | PD.EDRME ---
Rapid Medical Screening Exam [facility] Arrival date/time: 06/25/24 14:28 53-year-old female with a history of cirrhosis, acute kidney injury, anemia, presents to the emergency room with a chief complaint of altered mental status. Patient was brought in by [facility] for the last 2 days her daughter's mentation has gotten worse. I have greeted and performed a focused initial assessment of this patient. A comprehensive ED assessment and evaluation of the patient, analysis of all test results, and completion of the medical decision making process will be conducted by additional ED providers. Chief Complaint: General Adult/Misc Complain Vital signs: Vital Signs Temperature 98.2 F 06/25/24 14:38 Pulse Rate 42 L 06/25/24 14:38 Respiratory Rate 16 06/25/24 14:38 Blood Pressure 109/67 06/25/24 14:38 Pulse Oximetry (%) 98 06/25/24 14:38 Oxygen Delivery Method Room Air 06/25/24 14:38 Vital signs reviewed by provider: Yes
--- NOTE | 2024-06-25 14:52 | PD.EDADULT ---
ED General RME/HPI General Chief complaint: General Adult/Misc Complain Stated complaint: END-STAGE LIVER DS, LETHARGIC, TREMORS, NO OUTPUT Arrival date/time: 06/25/24 14:28 RME / HPI RME / HPI narrative: This patient is a 53-year-old female with past medical history of recurrent hepatic encephalopathy likely due to liver cirrhosis with multiple admissions to the hospital who follows our [facility] was brought to the ER on 06/25/2024 with chief complaint of altered mental status and decreased bowel movements. Patient's mother is on the bedside and she reported that patient started getting confused x 1 day ago. Denied any fall or loss of consciousness. She passed only 1 bowel movement yesterday and did not had any bowel movement today. She has loss of appetite with decreased p.o. intake. She was endorsing abdominal discomfort yesterday. Patient's mother stated that she did not had any nausea vomiting or fever chills or dysuria. Patient has been taking her medications and is due for appointment with liver transplant specialist. Past medical history: Cirrhosis, variceal bleed, recurrent episodes of hepatic encephalopathy Past surgical history: Appendectomy, 2 , 2 laparoscopic procedures for endometriosis Social history: Stopped alcohol in 2023, denies smoking, other illicit drug abuse Allergies: Latex Home medications: Lactulose 10 g 3 times daily, rifaximin 550 mg twice daily, vitamin D2, methocarbamol 750 mg twice daily, Lasix 20 mg, Protonix 40 mg twice daily, spironolactone 50 mg daily, propranolol 10 mg twice daily, [place] 5/325 as needed for pain, midodrine 5 mg 3 times daily, mirtazapine 50 mg at bedtime, multivitamin with folic acid Vitals revealed soft blood pressure 109/67, pulse 42, respiratory rate 16 and afebrile. Patient was saturating well on room air. CBC showed normocytic anemia hemoglobin 10.5, chronic thrombocytopenia platelet count 66.Chemistry panel showed sodium 144, potassium 4.9, CL 108. Kidney function showed LILY with BUN 35 and creatinine 2.3. GFR 25. Blood glucose 114. Phosphorus 5.4. Hyperammonemia Serum ammonia 164. Elevated total bilirubin 7.2. Will follow-up with CT imaging and call for admission. 16: 52 we ordered lactulose enema 200 mg x 1 along with rectal tube. Given patient had LILY we ordered albumin prior to IV Lasix 20 mg x 1 due to concern low blood pressure and currently being n.p.o. and we cannot administer midodrine as she is altered. They are not placing NG tube due to history of esophageal varices grade 3. Lactic acid came back 2.1. We will hold off on propranolol due to sinus bradycardia heart rate 42 bpm. Currently waiting for CT brain without contrast. Cxr was negative. Differentials include acute encephalopathy likely related to hyperammonemia due to decompensated liver cirrhosis, LILY likely due to fluid overload versus hepatorenal syndrome due to history of underlying liver cirrhosis, hyperphosphatemia, lactic acidosis, normocytic anemia, thrombocytopenia. 17:[address] showed no acute changes. Discussed case with hospitalist team regarding admission. Discussed patient's ED course, exam findings, labs and radiology results. Hospitalist team agreed to accept the patient for admission. Ca chloride was given due to B pari (Propranolol) induced Bradycardia. MD complaint: AMS Onset (ago): day(s) (1) Associated symptoms: other (constipation) Related Data Home Medications ?Medication ?Instructions ?Recorded ?Confirmed rifaximin 550 mg tablet (Xifaxan) 550 mg PO BID 01/12/24 06/21/24 ergocalciferol (vitamin D2) 1,250 1,250 mcg PO QWEEK 02/06/24 06/21/24 mcg (50,000 unit) capsule (Vitamin D2) methocarbamol 750 mg tablet 750 mg PO BID 02/06/24 06/21/24 multivitamin 1 tab PO QDAY 05/11/24 06/21/24 propranolol 20 mg tablet 20 mg PO BID 06/13/24 06/21/24 Previous Rx's ?Medication ?Instructions ?Recorded lactulose 20 gram/30 mL oral 30 g (45 mL) PO TID 30 days #4,050 01/31/24 solution mL furosemide 20 mg tablet (Lasix) 20 mg PO QDAY #90 tabs 04/16/24 pantoprazole 40 mg tablet,delayed 40 mg PO BID #30 tabs 06/03/24 release (Protonix) spironolactone 25 mg tablet 50 mg (2 x 25 mg) PO QDAY #30 tabs 06/08/24 lactulose 10 gram/15 mL oral 10 g (15 mL) PO Q4H #3,000 mL 06/15/24 solution hydrocodone 5 mg-acetaminophen 325 1 tab PO BID PRN pain 1 month #30 06/21/24 mg tablet tabs midodrine 5 mg tablet 5 mg PO TID 1 month #90 tabs 06/21/24 mirtazapine 15 mg tablet 15 mg PO HS 1 month #30 tabs 06/21/24 multivitamin with folic acid 400 1 tab PO QAM #30 tabs 06/21/24 mcg tablet (Daily-Dena (with folic acid)) propranolol 10 mg tablet 10 mg PO BID 1 month #60 tabs 06/21/24 Allergies Allergy/AdvReac Type Severity Reaction Status Date / Time latex Allergy Severe Hives Verified 06/25/24 14:32 Review of Systems Review of Systems ROS Unobtainable: unobtainable due to mental status Past Medical History Past Medical History NEUROLOGIC: Positive Neurological Disorders, Migraine and Spinal Cord Injury CARDIAC: Positive Cardiac Disorders and Hypotension GASTROINTESTINAL: Positive Gastrointestinal Disorders, Cirrhosis, Gastrointestinal Bleed, Esophageal Varices and Hemorrhoids REPRODUCTIVE: Positive Endometriosis and Previous Pregnancies MUSCULOSKELETAL: Positive Musculoskeletal Disorders ENDOCRINE: Positive Endocrine Disorders and Diabetes Mellitus Type 2 HEMATOLOGIC: Positive Blood Disorders and Anemia PSYCHO/SOCIAL: Positive Depression and Anxiety OTHER HISTORY: Positive Blood Transfusions, Chicken Pox and Measles Family History FAMILY HISTORY: Positive Family Psychiatric Problems and Family Cancer Surgical History SURGICAL: Positive Section OTHER SURGICAL HX: As in the history of present illness Social History SMOKING STATUS: Never smoker SECOND HAND EXPOSURE: No SUBSTANCE USE: marijuana ED Exam Narrative Physical exam: GENERAL APPEARANCE: Patient is alert but not oriented. Saturating well on room air. HEENT: NC, AT. MMM. EOMI, clear conjunctiva, oropharynx clear. NECK: Supple without lymphadenopathy. No stiffness or restricted ROM. HEART: Sinus bradycardia with regular rhythm, normal S1/S2, no m/r/g LUNGS: CTAB, moving air well. No crackles or wheezes are heard. ABDOMEN: Soft, mild epigastric tenderness, nondistended with good bowel sounds heard. BACK: No CVAT, no obvious deformity. EXTREMITIES: Without cyanosis, clubbing or edema. NEUROLOGICAL: Grossly nonfocal. Alert but not oriented.GCS 11 CN not formally tested but appear grossly intact. Skin: Warm and dry without any rash. Psych: Unable to assess due to altered mentation Course Course Course Narrative: This patient is a 53-year-old female with past medical history of recurrent hepatic encephalopathy likely due to liver cirrhosis with multiple admissions to the hospital who follows our [facility] was brought to the ER on 06/25/2024 with chief complaint of altered mental status and decreased bowel movements. Patient's mother is on the bedside and she reported that patient started getting confused x 1 day ago. Denied any fall or loss of consciousness. She passed only 1 bowel movement yesterday and did not had any bowel movement today. She has loss of appetite with decreased p.o. intake. She was endorsing abdominal discomfort yesterday. Patient's mother stated that she did not had any nausea vomiting or fever chills or dysuria. Patient has been taking her medications and is due for appointment with liver transplant specialist. Vitals revealed soft blood pressure 109/67, pulse 42, respiratory rate 16 and afebrile. Patient was saturating well on room air. CBC showed normocytic anemia hemoglobin 10.5, chronic thrombocytopenia platelet count 66.Chemistry panel showed sodium 144, potassium 4.9, CL 108. Kidney function showed LILY with BUN 35 and creatinine 2.3. GFR 25. Blood glucose 114. Phosphorus 5.4. Hyperammonemia Serum ammonia 164. 16: 52 we ordered lactulose enema 200 mg x 1 along with rectal tube. Given patient had LILY we ordered albumin prior to IV Lasix 20 mg x 1 due to concern low blood pressure and currently being n.p.o. and we cannot administer midodrine as she is altered. They are not placing NG tube due to history of esophageal varices grade 3. Lactic acid came back 2.1. We will hold off on propranolol due to sinus bradycardia heart rate 42 bpm. Currently waiting for CT brain without contrast. Differentials include acute encephalopathy likely related to hyperammonemia due to decompensated liver cirrhosis, LILY likely due to fluid overload versus hepatorenal syndrome due to history of underlying liver cirrhosis, hyperphosphatemia, lactic acidosis, normocytic anemia, thrombocytopenia. 17:[address] showed no acute changes. Discussed case with hospitalist team regarding admission. Discussed patient's ED course, exam findings, labs and radiology results. Hospitalist team agreed to accept the patient for admission. Quality Measures none Orders Category Date Time Status Aspiration precautions ONCE Care 06/25/24 16:42 Active Bleeding Precautions PRN Care 06/25/24 17:42 Active COVID-19 Screening Questionnaire NOW Care 06/25/24 18:01 Active Decision to Admit X1 Care 06/25/24 18:01 Active EKG (ED ONLY) *Do not use* NOW Care 06/25/24 16:43 Active Insert Rectal Tube NOW Care 06/25/24 16:10 Active NPO NOW Care 06/25/24 16:42 Active Strict Intake and Output Routine Care 06/25/24 16:44 Ordered Diet NPO (NOW) Diet 06/25/24 16:[address] head/brain wo con Stat Exams 06/25/24 16:10 Completed CXRP [XR chest 1V portable] Stat Exams 06/25/24 16:42 Completed EKG (ED Only) Stat Exams 06/25/24 16:43 Ordered Ammonia Stat Lab 06/25/24 15:02 Completed CBC Stat Lab 06/25/24 15:02 Completed CMP [Comprehensive Metabolic Panel] Stat Lab 06/25/24 15:02 Completed Drug Screen,Urine Stat Lab 06/25/24 14:46 Ordered HCG Qualitative,Urine Stat Lab 06/25/24 14:45 Ordered INR [Prothrombin Time with INR] Stat Lab 06/25/24 16:58 Completed Lactate (Lactic Acid) Routine Lab 06/25/24 15:58 Results Lipase Stat Lab 06/25/24 15:02 Completed Magnesium Stat Lab 06/25/24 15:02 Completed PTT [Partial Thromboplastin Time] Stat Lab 06/25/24 16:58 Completed Phosphorous Stat Lab 06/25/24 15:02 Completed Troponin I Stat Lab 06/25/24 18:01 Ordered Type and Screen Stat Lab 06/25/24 16:58 Received UA [Urinalysis] Stat Lab 06/25/24 14:45 Ordered Urine Culture Stat Lab 06/25/24 14:45 Ordered Albumin Human 25% Ivpb [Albuminar-25 Ivpb] Med 06/25/24 16:40 Discontinued 12.5 gm in 50 ml IV X1 Calcium Chloride 10% Abboject Med 06/25/24 18:04 Once 10 ml IV X1 ONE Furosemide [Lasix Inj] Med 06/25/24 16:40 Discontinued 20 mg IVP X1 ONE Lactulose Syrup [Enulose Syrup] Med 06/25/24 16:15 Discontinued 200 gm ME X1 ONE Pantoprazole Inj [Protonix Inj] Med 06/25/24 16:43 Discontinued 40 mg IV X1 ONE Vital Signs Vital signs: Vital Signs Temperature 98.2 F 06/25/24 14:38 Pulse Rate 42 L 06/25/24 14:38 Respiratory Rate 16 06/25/24 14:38 Blood Pressure 109/67 06/25/24 14:38 Pulse Oximetry (%) 98 06/25/24 14:38 Oxygen Delivery Method Room Air 06/25/24 14:38 Discharge Plan Plan Patient Disposition: Admit Acute Care w/in Hospital Prescriptions/Referrals Prescriptions/Med Rec: No Action spironolactone 25 mg tablet 50 mg PO QDAY Qty: 30 0RF multivitamin with folic acid [Daily-Dena (with folic acid)] 400 mcg tablet 1 tab PO QAM Qty: 30 0RF mirtazapine 15 mg tablet 15 mg PO HS 30 Days Qty: 30 2RF Rx Instructions: Take one tablet before bedtime everyday propranolol 10 mg tablet 10 mg PO BID 30 Days Qty: 60 2RF Rx Instructions: Take one tablet by mouth twice a day midodrine 5 mg tablet 5 mg PO TID 30 Days Qty: 90 2RF Rx Instructions: Take one tablet by mouth three times daily hydrocodone-acetaminophen 5-325 mg tablet 1 tab PO BID MDD 2 Tablets PRN (Reason: pain) 30 Days Qty: 30 0RF Rx Instructions: Take one tablet as needed twice a day for pain lactulose 20 gram/30 mL Solution 30 g PO TID 30 Days Qty: 4050 1RF methocarbamol 750 mg Tablet 750 mg PO BID ergocalciferol (vitamin D2) [Vitamin D2] 1,250 mcg (50,000 unit) Capsule 1,250 mcg PO QWEEK Xifaxan 550 mg tablet 550 mg PO BID Patient Comments: TAKE 1 TABLET BY MOUTH TWICE A DAY FOR 1 MONTH furosemide [Lasix] 20 mg tablet 20 mg PO QDAY Qty: 90 0RF Rx Instructions: Hold if SBP drops below 100 and DBP below 60 mmHg multivitamin Tablet 1 tab PO QDAY Patient Comments: TAKE 1 TABLET BY MOUTH ONCE DAILY EVERY MORNING AT 9AM pantoprazole [Protonix] 40 mg tablet,delayed release (DR/EC) 40 mg PO BID Qty: 30 0RF propranolol 20 mg tablet 20 mg PO BID lactulose 10 gram/15 mL solution 10 g PO Q4H Qty: 3000 0RF Problem List Clinical Impression: Altered mental status, Cirrhosis of liver, LILY (acute kidney injury), Hyperammonemia Patient/Caregiver Discharge Instructions Print Language: Bahraini Stand Alone Forms: [employer] Award Info., Patient Portal Info Letter MDM Narrative MDM hospital course (for use when minimal MDM required): This patient is a 53-year-old female with past medical history of recurrent hepatic encephalopathy likely due to liver cirrhosis with multiple admissions to the hospital who follows our [facility] was brought to the ER on 06/25/2024 with chief complaint of altered mental status and decreased bowel movements. Patient's mother is on the bedside and she reported that patient started getting confused x 1 day ago. Denied any fall or loss of consciousness. She passed only 1 bowel movement yesterday and did not had any bowel movement today. She has loss of appetite with decreased p.o. intake. She was endorsing abdominal discomfort yesterday. Patient's mother stated that she did not had any nausea vomiting or fever chills or dysuria. Patient has been taking her medications and is due for appointment with liver transplant specialist. Vitals revealed soft blood pressure 109/67, pulse 42, respiratory rate 16 and afebrile. Patient was saturating well on room air. CBC showed normocytic anemia hemoglobin 10.5, chronic thrombocytopenia platelet count 66.Chemistry panel showed sodium 144, potassium 4.9, CL 108. Kidney function showed LILY with BUN 35 and creatinine 2.3. GFR 25. Blood glucose 114. Phosphorus 5.4. Hyperammonemia Serum ammonia 164. 16: 52 we ordered lactulose enema 200 mg x 1 along with rectal tube. Given patient had LILY we ordered albumin prior to IV Lasix 20 mg x 1 due to concern low blood pressure and currently being n.p.o. and we cannot administer midodrine as she is altered. They are not placing NG tube due to history of esophageal varices grade 3. Lactic acid came back 2.1. We will hold off on propranolol due to sinus bradycardia heart rate 42 bpm. Currently waiting for CT brain without contrast. Differentials include acute encephalopathy likely related to hyperammonemia due to decompensated liver cirrhosis, LILY likely due to fluid overload versus hepatorenal syndrome due to history of underlying liver cirrhosis, hyperphosphatemia, lactic acidosis, normocytic anemia, thrombocytopenia. 17:[address] showed no acute changes. Discussed case with hospitalist team regarding admission. Discussed patient's ED course, exam findings, labs and radiology results. Hospitalist team agreed to accept the patient for admission. Medication Administration(s) Medication Administration History Discontinued Medications Furosemide (Furosemide Inj 10 Mg/Ml Vial 2 Ml) 20 mg IVP X1 ONE Stop: 06/25/24 16:41 Albumin Human (Albuminar-25 Ivpb) 12.5 gm in 50 mls @ 50 mls/hr IV X1 ONE Stop: 06/25/24 17:39 Lactulose (Lactulose Syrup 10 Gm/15 Ml) 200 gm ME X1 ONE Stop: 06/25/24 16:16 Pantoprazole Sodium (Pantoprazole Inj 40 Mg Vial) 40 mg IV X1 ONE Stop: 06/25/24 16:44 Diagnosis Diagnoses ruled out and/or further discussions: Differential diagnoses include acute encephalopathy likely related to hyperammonemia due to decompensated liver cirrhosis, LILY likely due to fluid overload versus hepatorenal syndrome due to history of underlying liver cirrhosis, hyperphosphatemia, lactic acidosis, normocytic anemia, thrombocytopenia.
[2024-06-25 15:18] LABS: Basophils # (Auto) 0.1 Thou/mm3 (0.0-0.2); Basophils % (Auto) 1 % (0-2.5); Eosinophils # (Auto) 0.4 Thou/mm3 (0.0-0.5); Eosinophils % (Auto) 7 % (0-10); Hematocrit 30.5 % (36.0-46.0); Hemoglobin 10.5 g/dL (12.0-16.0); Immature Granulocytes % (Auto) 0 % (0-0); Immature Granulocytes Auto 0.02 Thou/mm3 (0.00-0.00); Lymphocytes # (Auto) 2.8 Thou/mm3 (1.0-4.8); Lymphocytes % (Auto) 44 % (10-50); Mean Corpuscular HGB Conc 34.4 g/dl (31.0-37.0); Mean Corpuscular Hemoglobin 34.5 pg (25.0-35.0); Mean Corpuscular Volume 100 fL (80-100); Monocytes # (Auto) 0.5 Thou/mm3 (0.0-0.8); Monocytes % (Auto) 7 % (0-12); Neutrophils # (Auto) 2.6 Thou/mm3 (1.8-7.7); Neutrophils % (Auto) 41 % (37-80); Nucleated Red Blood Cell % 0 /100 WBC (0); RDW Standard Deviation 71.7 fL (36.4-46.3); Red Blood Count 3.04 Miln/mm3 (4.00-5.20); White Blood Count 6.3 Thou/mm3 (3.6-11.0)
[2024-06-25 15:25] LABS: Platelet Count 66 Thou/mm3 (140-440)
[2024-06-25 15:35] LABS: Alanine Aminotransferase 14 U/L (10-49); Albumin, Serum 3.7 gm/dL (3.5-5.0); Alkaline Phosphatase 80 U/L (46-116); Anion Gap 10 (7-16); Aspartate Amino Transferase 33 U/L (0-34); BUN/Creatinine Ratio 15 Ratio (12-20); Bilirubin,Total 7.2 mg/dL (0.3-1.2); Blood Urea Nitrogen 35 mg/dL (9-23); Calcium 9.6 mg/dL (8.3-10.6); Calcium (Corrected) 9.8 mg/dL (8.5-10.1); Carbon Dioxide 25.7 mMol/L (20.0-31.0); Chloride 108 mMol/L (98-107); Creatinine (Component) 2.3 mg/dL (0.6-1.3); Estimated Creatinine Clearance 23.6 mL/min (>60); Globulin 3.6 gm/dL (2.3-3.5); Glucose 114 mg/dL (74-106); Lipase 23 U/L (12-53); Magnesium 2.1 mg/dL (1.6-2.6); Osmolality,Calculated 295 (275-295); Phosphorous 5.4 mg/dL (2.4-5.1); Potassium 4.9 mMol/L (3.4-5.1); Sodium 144 mMol/L (136-145); Total Protein 7.3 gm/dL (5.7-8.2); eGFR 25 See Note
[2024-06-25 15:40] LABS: Ammonia 164 uMol/L (11-32)
--- NOTE | 2024-06-25 16:10 | XR_ITS ---
Examination: CT brain head without contrast. 2-D sagittal coronal reconstructions Date and time of exam:June 25, 2024 1723 hours INDICATIONS: Altered mental status today COMPARISON: June 12, 2024 CTDI: vol (mGy):47.7 DLP: (mGycm):862 Technique: Multiple CT axial sections of the brain have been obtained, 5 mm slice thickness. Contrast has not been administered. 2-D sagittal, coronal reconstructions have been obtained Low dose protocols were performed. One or more of the following dose reduction techniques were used; automated exposure control, adjustment of the mA and/or KV according to patient size, use of iterative reconstruction technique. Findings: No significant ventricular enlargement. Intra-axial or extra-axial hemorrhage density is not seen. No mass effect or midline shift Basal cisterns are not remarkable. Fourth ventricle is midline. Cranial vault intact. Impression: Negative for acute hemorrhage, mass effect or midline shift Advise clinical correlation and follow up accordingly
[2024-06-25 16:12] LABS: Lactate (Lactic Acid) 2.1 mMol/L (0.4-2.0)
[2024-06-25 16:27] LABS: Slide Review Platelets confirmed
--- NOTE | 2024-06-25 16:42 | XR_ITS ---
Examination: AP chest single view TECHNIQUE: Sitting AP portable chest single view Date and time: June 25, 2024 1718 hours Comparison June 12, 2024 INDICATIONS: Shortness of breath, fainting today FINDINGS: Normal heart size. No aspiration pneumonia. Osseous structures are intact IMPRESSION:. No aspiration pneumonia
--- NOTE | 2024-06-25 16:43 | EKG_ITS ---
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
[2024-06-25 17:28] LABS: INR 1.7 (0.9-1.3); Partial Thromboplastin Time 34.4 Seconds (22.0-36.0); Prothrombin Time 18.2 Seconds (9.0-12.2)
[2024-06-25 18:01] VITALS: BP 107/50; PULSE 40; RESP 14; TEMP 36.4; O2SAT 97
[2024-06-25 18:11] VITALS: BP 107/50; BP 96/55; PULSE 42; PULSE 46; RESP 13; RESP 14; TEMP 36.4; O2SAT 100; O2SAT 99
[2024-06-25 18:24] LABS: Troponin I < 0.020 ng/mL (0.0-0.045)
--- NOTE | 2024-06-25 18:29 | PD.RESHP ---
Documentation for date of: 06/25/24 HPI History of Present Illness Chief complaint: Altered mental status History of present illness: HPI: Patient's mother at bedside. Patient is altered and history obtained from chart review and mother Patient is a 53-year-old female with a past medical history of decompensated alcoholic cirrhosis with esophageal varices recurrent hospital admissions for hepatic encephalopathy presented today with a chief complaint of altered mental status. Patient had a follow-up at [facility] 3 days ago during which her lactulose was titrated to 30 g p.o. 3 times daily from 20 g p.o. 3 times daily. Following that patient had decreased bowel movements and only had 1 in the past 24 hours. Cording to her mother this a.m. she became altered and less responsive. Denies any presyncope/syncope, palpitations, headache, chest pain/pressure, sick contacts and recent travel. ED course: BP 109/67, pulse 42, RR 16, temp 98.2 F, SpO2 98% on room air labs significant for Hb 10.5, HCT 30.5, PLT 66, INR 1.7, BUN 35, CR 2.3, lactic acid 2.1, phosphorus 5.4, T. bili 7.2, ammonia 164. Head CT negative for acute hemorrhage, mass effect or midline shift. Chest x-ray showed no abnormalities. EKG significant for sinus bradycardia, rate 40, QTc [address] changes. In the ED patient received pantoprazole 40 Mg IV x 1 albumin 12.5 g IV x 1. Patient will be admitted for workup and management of hepatic encephalopathy. Review of Systems Review of Systems ROS Unobtainable: unobtainable due to mental status Past Medical History Past Medical History Comments PMH COMMENT: Past medical history: Decompensated alcoholic cirrhosis with esophageal varices Recurrent episodes of hepatic encephalopathy Medication list: Rifaximin 550 Mg p.o. twice daily Lactulose 30 g p.o. 3 times daily ergocalciferol Methocarbamol Furosemide 20 Mg p.o. daily Multivitamin Pantoprazole 40 Mg p.o. daily Spironolactone 25 Mg p.o. twice daily Propranolol 20 Mg p.o. twice daily Hydrocodone 5 Mg p.o. twice daily as needed midodrine 5 Mg p.o. 3 times daily Mirtazapine 15 Mg p.o. at bedtime Multivitamin with folic acid Past surgical history: Appendectomy x 2 Exploratory laparoscopy x 2 for endometriosis Allergies: Latex?hives Social history: Occupational History: Previously worked at [employer]. Currently unemployed Marital Status: . Lives with her boyfriend and kids Tobacco use: Denies ETHO use: Quit alcohol use in 2023 Illicit drug use: Denies Social History Note: lives with Family History: No significant history Exam Vital Signs Temp Pulse Resp BP Pulse Ox O2 Del Method 97.5 F 40 L 14 107/50 L 97 Room Air 06/25/24 18:01 06/25/24 18:01 06/25/24 18:01 06/25/24 18:01 06/25/24 18:01 06/25/24 18:01 Narrative Exam Constitutional Alert, oriented x 1 [Person] HEENT Vision grossly intact. Patent nares. Trachea midline Respiratory Chest normal on inspection and clear auscultation bilaterally Cardiovascular S1 and S2 audible, RRR. No murmurs carotid bruit. No gross JVD. Abdominal Soft and non tender to palpation in all quadrants. BS + Genitourinary No bladder tenderness, no flank pain. Normal to palpation Musculoskeletal Extremities tone within normal limits. No LE edema. Neurological Oriented to person only Skin Warm, dry and intact. No apparent lesions. Results: Labs 06/25/24 15:02 06/25/24 15:02 Labs: Short CBC 06/25/24 Range/Units 15:02 WBC 6.3 (3.6-11.0) Thou/mm3 Hgb 10.5 L (12.0-16.0) g/dL Hct 30.5 L (36.0-46.0) % Plt Count 66 L D (140-440) Thou/mm3 BMP 06/25/24 15:02 Sodium 144 Potassium 4.9 Chloride 108 H Carbon Dioxide 25.7 BUN 35 H Creatinine 2.3 H Glucose 114 H Calcium 9.6 Cardiac Enzymes 06/25/24 Range/Units 15:02 Troponin I < 0.020 (0.0-0.045) ng/mL Liver Function 06/25/24 Range/Units 15:02 Total Bilirubin 7.2 H (0.3-1.2) mg/dL AST 33 (0-34) U/L ALT 14 (10-49) U/L Alkaline Phosphatase 80 (46-116) U/L Albumin 3.7 (3.5-5.0) gm/dL Quality Measures Quality Measures none Medications Home Medications and Allergies Home Medications ?Medication ?Instructions ?Recorded ?Confirmed ?Type rifaximin 550 mg tablet (Xifaxan) 550 mg PO BID 01/12/24 06/21/24 History ergocalciferol (vitamin D2) 1,250 1,250 mcg PO QWEEK 02/06/24 06/21/24 History mcg (50,000 unit) capsule (Vitamin D2) methocarbamol 750 mg tablet 750 mg PO BID 02/06/24 06/21/24 History multivitamin 1 tab PO QDAY 05/11/24 06/21/24 History propranolol 20 mg tablet 20 mg PO BID 06/13/24 06/21/24 History Allergies Allergy/AdvReac Type Severity Reaction Status Date / Time latex Allergy Severe Hives Verified 06/25/24 14:32 Visit Medications Calcium Chloride (Calcium Chloride 10% Inj 10 Ml Syrg) 10 ml IV X1 ONE Stop: 06/25/24 18:05 Discontinued Medications Furosemide (Furosemide Inj 10 Mg/Ml Vial 2 Ml) 20 mg IVP X1 ONE Stop: 06/25/24 16:41 Albumin Human (Albuminar-25 Ivpb) 12.5 gm in 50 mls @ 50 mls/hr IV X1 ONE Stop: 06/25/24 17:39 Lactulose (Lactulose Syrup 10 Gm/15 Ml) 200 gm TX X1 ONE Stop: 06/25/24 16:16 Pantoprazole Sodium (Pantoprazole Inj 40 Mg Vial) 40 mg IV X1 ONE Stop: 06/25/24 16:44 Assessment & Plan Plan Patient is a 53-year-old female with a past medical history of decompensated alcoholic cirrhosis with esophageal varices recurrent hospital admissions for hepatic encephalopathy presented today with a chief complaint of altered mental status. Patient will be admitted for workup and management of hepatic encephalopathy. Altered Mental status secondary to Hepatic encephalopathy Patient had decreased bowel movements for past day and became altered today Head CT negative for acute hemorrhage, mass effect or midline shift. Ammonia 164 Plan: - NPO - Telemetry monitoring ? Insert rectal tube - Albumin 25 g IV daily - Midodrine 10mg po TID - Lactulose 200 g TX 3 times daily - If MAP <65 to consider ICU admission for IV vasopressor support Decompensated alcoholic cirrhosis with coagulopathy, esophageal varices and thrombocytopenia Patient has recurrent episodes in the past for hepatic encephalopathy T. bili 7.2, ammonia 164, PLT 66 Plan: ? Diuretics on hold due to low blood pressure - lactulose 200 GPR 3 times daily via rectal tube Acute kidney injury prerenal versus renal On admission BUN 35, CR 2.3 Most likely prerenal due to hypotension and hypoperfusion of kidney Plan: ? Continue albumin challenge ? Gentle IV hydration as necessary ? Avoid renal toxic agents ? Renally dose medication Health maintenance: Disposition: IV albumin, TX lactulose Diet: NPO Lines: pIVs GI Prophylaxis: Pantoprazole Thrombo Prophylaxis: SCDs Code status: FULL CODE Plan of care discussed with Attending Dr. Ian Ballesteros MD PGY 1 Disclaimer: This note was dictated by speech recognition. Minor errors in manager call may be present due to voice recognition software. Attending Provider Attestation/Addendum I attest that I was physically present for the evaluation, physical examination, lab and imaging review of the patient with the residents. I discussed the case with the residents and agree with the findings and plans of care as documented above. Godfrey Sosa MD
[2024-06-25 19:09] LABS: Reflex Lactate? Y
[2024-06-25] MEDS: PANTOPRAZOLE INJ 40 MG VIAL IV (19:41)
[2024-06-25 19:53] VITALS: BP 110/52; PULSE 42; RESP 19; TEMP 36.4; O2SAT 99
[2024-06-25 19:57] LABS: Lactic Acid, 3 HR 2.5 mMol/L (0.4-2.0)
[2024-06-25] MEDS: ALBUMIN HUMAN 25% IVPB 12.5 GM/50 ML BTL IV (20:02)
[2024-06-25] MEDS: ALBUMIN HUMAN 25% IVPB 25 GM/100 ML BTL IV ×2 (20:22→23:47)
[2024-06-25 20:32] VITALS: BP 102/56; PULSE 52; RESP 15; TEMP 36.3
[2024-06-25] MEDS: CALCIUM CHLORIDE 10% INJ 10 ML SYRG IV (22:11)
[2024-06-25 22:35] VITALS: BP 127/59; PULSE 48; RESP 19; TEMP 36.1; O2SAT 96
[2024-06-25] MEDS: LACTULOSE SYRUP 10 GM/15 ML 200 GM PR (23:14)
[2024-06-26] VITALS (10 sets, daily range): BP systolic 87–124; BP diastolic 42–75; PULSE 44–76; RESP 16–99; TEMP 36.1–36.7; O2SAT 96–100; BMI 29.2
[2024-06-26 00:06] LABS: Collection Type, Urine Clean Catch
[2024-06-26 00:34] LABS: Bacteria,Urine Rare; Bilirubin,Urine Negative (Negative); Blood,Urine 2+ (Negative); Clarity,Urine Turbid (Clear/Hazy); Color,Urine Yellow (Lt Yel-Yel); Glucose, Urine Negative (Negative); Hyaline Casts,Urine 1 /hpf (0-1); Ketones,Urine Negative (Negative); Leukocyte Esterase,Urine Positive (Negative); Nitrite,Urine Negative (Negative); PH,Urine 5.5 (5.0-7.0); Protein,Urine Negative (Neg - Trace); RBC,Urine 2 /hpf (0-3); Specific Gravity,Urine 1.016 (1.001-1.035); Squamous Epithelial Cell,Urine 28 /hpf (0-5); Urobilinogen,Urine Negative mg/dL (0.0-1.0); WBC,Urine 15 /hpf (0-5)
[2024-06-26 00:36] LABS: Amphetamine/Methamp Scrn,U Negative (Negative); Barbiturate Screen,Urine Negative (Negative); Benzodiazepines Screen,Urine Negative (Negative); Benzoylecgonine Screen, Ur Negative (Negative); Fentanyl Screen,Urine Negative (Negative); HCG Qualitative,Urine Negative; Opiate Screen,Urine Positive (Negative); THC Screen,Urine Negative (Negative)
[2024-06-26] MEDS: LACTULOSE SYRUP 20 GM/30 ML UDC 200 GM PR (05:46)
[2024-06-26 06:23] LABS: Partial Thromboplastin Time 49.4 Seconds (22.0-36.0); Prothrombin Time 20.6 Seconds (9.0-12.2)
[2024-06-26 06:25] LABS: Basophils % (Auto) 1 % (0-2.5); Eosinophils # (Auto) 0.1 Thou/mm3 (0.0-0.5); Eosinophils % (Auto) 3 % (0-10); Hematocrit 27.6 % (36.0-46.0); Hemoglobin 9.5 g/dL (12.0-16.0); Immature Granulocytes % (Auto) 0 % (0-0); Immature Granulocytes Auto 0.01 Thou/mm3 (0.00-0.00); Lymphocytes % (Auto) 34 % (10-50); Mean Corpuscular HGB Conc 34.4 g/dl (31.0-37.0); Mean Corpuscular Hemoglobin 35.1 pg (25.0-35.0); Mean Corpuscular Volume 102 fL (80-100); Monocytes # (Auto) 0.3 Thou/mm3 (0.0-0.8); Monocytes % (Auto) 9 % (0-12); Neutrophils # (Auto) 1.6 Thou/mm3 (1.8-7.7); Neutrophils % (Auto) 53 % (37-80); Nucleated Red Blood Cell % 0 /100 WBC (0); RDW Standard Deviation 67.6 fL (36.4-46.3); Red Blood Count 2.71 Miln/mm3 (4.00-5.20); White Blood Count 3.1 Thou/mm3 (3.6-11.0)
[2024-06-26 07:10] LABS: Alanine Aminotransferase 11 U/L (10-49); Albumin, Serum 4.4 gm/dL (3.5-5.0); Albumin/Globulin Ratio 1.4 (1.2-2.2); Alkaline Phosphatase 64 U/L (46-116); Anion Gap 13 (7-16); Aspartate Amino Transferase 27 U/L (0-34); BUN/Creatinine Ratio 18 Ratio (12-20); Bilirubin,Total 8.6 mg/dL (0.3-1.2); Blood Urea Nitrogen 38 mg/dL (9-23); Calcium 11.1 mg/dL (8.3-10.6); Calcium (Corrected) 11.1 mg/dL (8.5-10.1); Carbon Dioxide 24.8 mMol/L (20.0-31.0); Cardiac Risk Estimate 4.5 RATIO (3.7-5.6); Chloride 108 mMol/L (98-107); Cholesterol 72 mg/dL (132-200); Creatinine (Component) 2.1 mg/dL (0.6-1.3); Estimated Creatinine Clearance 25.8 mL/min (>60); Globulin 3.1 gm/dL (2.3-3.5); Glucose 112 mg/dL (74-106); HDL Cholesterol 16 mg/dL (40-60); LDL Cholesterol,Calculated 43 mg/dL (0-130); Osmolality,Calculated 300 (275-295); Phosphorous 5.5 mg/dL (2.4-5.1); Potassium 5.1 mMol/L (3.4-5.1); Sodium 146 mMol/L (136-145); Thyroid Stimulating Hormone 0.87 uIU/mL (0.55-4.78); Total Protein 7.5 gm/dL (5.7-8.2); Triglycerides 67 mg/dL (30-150); eGFR 28 See Note
--- NOTE | 2024-06-26 08:00 | ESPR_ITS ---
Documentation for date of: 06/26/24 Subjective Subjective Interval history: Patient was seen and examined at bedside this AM. No acute exents overnight. Patient tolerating diet, adequate urine output and mentation is at baseline. Patient endorses improvement of confusion. Complains of pain from rectal tube. Blood pressure 87/45 [MAP 59]. Increased albumin to 25 g IV 3 times daily and midodrine 10 Mg p.o. 3 times daily. Normal saline 500 cc IVF bolus Transition lactulose to p.o. and resumed home medication rifaximin 550 Mg p.o. twice daily. INR 2. Vitamin K 10 Mg SC x 1 given Exam Vital Signs Temp Pulse Resp BP Pulse Ox O2 Del Method 97.0 F 56 L 19 120/75 96 Room Air 06/26/24 04:00 06/26/24 04:00 06/26/24 04:00 06/26/24 04:00 06/26/24 04:00 06/26/24 04:00 Narrative Exam Constitutional Alert, oriented x 3 and comfortable. Scleral icterus HEENT Vision grossly intact. Patent nares. Trachea midline Respiratory Chest normal on inspection and clear auscultation bilaterally Cardiovascular S1 and S2 audible, RRR. No murmurs carotid bruit. No gross JVD. Abdominal Soft, obese and tender to palpation in lower quadrants. BS + Genitourinary No bladder tenderness, no flank pain. Normal to palpation Musculoskeletal normal single Extremities tone within normal limits. No LE edema. Neurological CN II - XII grossly intact. Extremity motor and sensation grossly intact. Asterixis Skin Warm, dry and intact. No apparent lesions. Psychiatric Patient has good affect, is cooperative Objective Labs 06/27/24 05:41 06/27/24 05:41 Labs: Laboratory Results - last 24 hr 06/25/24 06/25/24 06/25/24 15:02 15:58 16:58 WBC 6.3 RBC 3.04 L Hgb 10.5 L Hct 30.5 L MCV 100 MCH 34.5 MCHC 34.4 RDW Std Deviation 71.7 H Plt Count 66 L D Neut % (Auto) 41 Lymph % (Auto) 44 [place] % (Auto) 7 Eos % (Auto) 7 Baso % (Auto) 1 Neut # (Auto) 2.6 Lymph # (Auto) 2.8 [place] # (Auto) 0.5 Eos # (Auto) 0.4 Baso # (Auto) 0.1 Immature Gran # (Auto) 0.02 H Absolute Nucleated RBC 0.00 Immature Gran % 0 Nucleated RBC % 0 PT 18.2 H INR 1.7 H APTT 34.4 Sodium 144 Potassium 4.9 Chloride 108 H Carbon Dioxide 25.7 Anion Gap 10 BUN 35 H Creatinine 2.3 H Estim Creat Clear Calc 23.6 L eGFR 25 L BUN/Creatinine Ratio 15 Glucose 114 H Calculated Osmolality 295 Lactic Acid 2.1 H Calcium 9.6 Corrected Calcium 9.8 Phosphorus 5.4 H Magnesium 2.1 Total Bilirubin 7.2 H AST 33 ALT 14 Alkaline Phosphatase 80 Ammonia 164 H* Troponin I < 0.020 Total Protein 7.3 Albumin 3.7 Globulin 3.6 H Albumin/Globulin Ratio 1.0 L Triglycerides Cholesterol LDL Cholesterol, Calc HDL Cholesterol Cholesterol/HDL Ratio Lipase 23 TSH Ur Collection Type Urine Color Urine Clarity Urine pH Ur Specific [place] Urine Protein Urine Glucose (UA) Urine Ketones Urine Blood Urine Nitrite Urine Bilirubin Urine Urobilinogen (Auto) Ur Leukocyte Esterase Urine RBC Urine WBC Ur Squamous Epith Cells Urine Bacteria Hyaline Casts Urine HCG, Qual Urine Opiates Screen Urine Fentanyl Screen Ur Barbiturates Screen U Amphetamin/Meth Scrn U Benzodiazepines Scrn U Cocaine Metab Screen U Marijuana (THC) Screen Misc Test Result Platelets confirmed Blood Type O Positive Antibody Screen NEGATIVE Blood Bank Wristband ID Yes 06/25/24 06/25/24 06/26/24 19:42 23:51 05:36 WBC RBC Hgb Hct MCV MCH MCHC RDW Std Deviation Plt Count Neut % (Auto) Lymph % (Auto) [place] % (Auto) Eos % (Auto) Baso % (Auto) Neut # (Auto) Lymph # (Auto) [place] # (Auto) Eos # (Auto) Baso # (Auto) Immature Gran # (Auto) Absolute Nucleated RBC Immature Gran % Nucleated RBC % PT 20.6 H INR 2.0 H APTT 49.4 H D Sodium 146 H Potassium 5.1 Chloride 108 H Carbon Dioxide 24.8 Anion Gap 13 BUN 38 H Creatinine 2.1 H Estim Creat Clear Calc 25.8 L eGFR 28 L BUN/Creatinine Ratio 18 Glucose 112 H Calculated Osmolality 300 H Lactic Acid 2.5 H Calcium 11.1 H D Corrected Calcium 11.1 H Phosphorus 5.5 H Magnesium 2.0 Total Bilirubin 8.6 H D AST 27 ALT 11 Alkaline Phosphatase 64 Ammonia Troponin I Total Protein 7.5 Albumin 4.4 D Globulin 3.1 Albumin/Globulin Ratio 1.4 Triglycerides 67 Cholesterol 72 L LDL Cholesterol, Calc 43 HDL Cholesterol 16 L Cholesterol/HDL Ratio 4.5 Lipase TSH 0.87 Ur Collection Type Clean Catch Urine Color Yellow Urine Clarity Turbid A Urine pH 5.5 Ur Specific [place] 1.016 Urine Protein Negative Urine Glucose (UA) Negative Urine Ketones Negative Urine Blood 2+ A Urine Nitrite Negative Urine Bilirubin Negative Urine Urobilinogen (Auto) Negative Ur Leukocyte Esterase Positive Urine RBC 2 Urine WBC 15 H Ur Squamous Epith Cells 28 H Urine Bacteria Rare Hyaline Casts 1 Urine HCG, Qual Negative Urine Opiates Screen Positive A Urine Fentanyl Screen Negative Ur Barbiturates Screen Negative U Amphetamin/Meth Scrn Negative U Benzodiazepines Scrn Negative U Cocaine Metab Screen Negative U Marijuana (THC) Screen Negative Misc Test Result Blood Type Antibody Screen Blood Bank Wristband ID Quality Measures Quality Measures none Assessment & Plan Assessment Current Active Medications: Generic Name Dose Route Start Last Admin Trade Name Freq PRN Reason Stop Dose Admin Acetaminophen 650 mg 06/25/24 18:29 Acetaminophen Supp 650 Mg Supp NC 07/25/24 18:28 Q6HR PRN Fever > 100.3 or pain 1-3 Albuterol/Ipratropium 3 ml 06/25/24 18:29 Albuterol/Ipratropium (Duoneb) Rt Karis 3 Ml Nebu INH 07/25/24 18:28 Q4HR PRN SHORTNESS OF BREATH OR WHEEZE Albumin Human 25 gm in 100 mls @ 100 mls/hr 06/25/24 21:00 06/26/24 02:13 Albuminar-25 Ivpb IV 06/27/24 20:59 Infused BID CELINA Infusion Lactulose 200 gm 06/25/24 18:35 06/26/24 05:46 Lactulose Syrup 20 Gm/30 Ml Udc NC 07/25/24 18:34 200 gm TID CELINA Administration Protocol Midodrine 10 mg 06/25/24 22:00 06/26/24 05:43 Midodrine 5 Mg Tablet PO 07/25/24 21:59 Not Given TID CELINA Ondansetron HCl 4 mg 06/25/24 18:29 Ondansetron Inj 2 Mg/Ml Inj 2 Ml IV 07/25/24 18:28 Q6H PRN NAUSEA OR VOMITING Protocol Phytonadione 10 mg 06/26/24 07:56 Phytonadione Inj 10 Mg/Ml Amp SC 06/26/24 07:57 X1 ONE Plan Patient is a 53-year-old female with a past medical history of decompensated alcoholic cirrhosis with esophageal varices recurrent hospital admissions for hepatic encephalopathy presented today with a chief complaint of altered mental status. Patient will be admitted for workup and management of hepatic encephalopathy. Altered Mental status secondary to Hepatic encephalopathy?improving Patient had decreased bowel movements for past day and became altered today Head CT negative for acute hemorrhage, mass effect or midline shift. Ammonia 164 Patient now A&O x 3, however still has asterixis on exam. Will remove rectal tube Plan: - Cardiac diet - Telemetry monitoring ? Remove rectal tube - Increased albumin 25 g IV 3 times daily - Midodrine 10mg po TID - Lactulose 30 g p.o. 3 times daily - If MAP <65 to consider ICU admission for IV vasopressor support Lactic acidosis On admission lactic acid 2.1 ---> 3.7 DDx: Hepatic encephalopathy, hypotension Plan: - Trend Lactic acid - Normal saline 500c IVF bolus Decompensated alcoholic cirrhosis with coagulopathy, esophageal varices and thrombocytopenia Patient has recurrent episodes in the past for hepatic encephalopathy T. bili 8.6, ammonia 164, PLT 28, INR 2.1 MELD-Na Score ; 30 points ; 27-32% 90-day mortality. Child-P[place] score ; 9 points; child class B, indication for transplant evaluation. Abdominal surgery perioperative mortality 30%. Plan: ? Diuretics on hold due to low blood pressure Acute kidney injury prerenal versus renal?improving On admission BUN 35, CR 2.3 Most likely prerenal due to hypotension and hypoperfusion of kidney Plan: ? Continue albumin challenge ? Gentle IV hydration as necessary ? Avoid renal toxic agents ? Renally dose medication Health maintenance: Disposition: IV albumin, p.o. lactulose. Pending resolution of encephalopathy Diet: Cardiac, 1500 cc fluid restriction Lines: pIVs GI Prophylaxis: Pantoprazole Thrombo Prophylaxis: SCDs Code status: FULL CODE Plan of care discussed with Attending Dr. Seymour Ballesteros MD PGY 1 Disclaimer: This note was dictated by speech recognition. Minor errors in business continuity analyst may be present due to voice recognition software. Attending Provider Attestation/Addendum I have examined the patient, reviewed labs and imaging findings, discussed the case with the resident(s), and reviewed entered orders. I agree with the plan of care as outlined in this note, with these additional summaries/recommendations: Patient seen at bedside. No acute overnight events. Her mental status appears slightly improved today although not yet back to baseline. Continue lactulose for hepatic encephalopathy. Titrate to 2-3 bowel movements a day. We will provide further education about lactulose alone as there appears to be some confusion to patient about which dose to take. Mild hypernatremia and hypercalcemia present which is most likely related to dehydration and poor oral intake. We will give low-dose fluids and now that mentation is slightly improving I anticipate increased oral intake. Repeat chemistry panel in AM. Patient also noted to have acute kidney injury most likely secondary to prerenal azotemia in the setting of hepatic encephalopathy. Continue IV fluids and avoid nephrotoxic agents. Repeat renal panel in AM. We will have further discussions with patient about transplant evaluation once mentation more improved. Dr. Seymour MD
[2024-06-26] MEDS: PHYTONADIONE INJ 10 MG/ML AMP SC (08:34)
[2024-06-26 09:21] LABS: Platelet Count 28 Thou/mm3 (140-440)
[2024-06-26] MEDS: PANTOPRAZOLE INJ 40 MG VIAL IVP (10:26)
[2024-06-26 10:28] LABS: Lactate (Lactic Acid) 2.2 mMol/L (0.4-2.0)
[2024-06-26] MEDS: SODIUM CHLORIDE 0.9% 500 ML 500 ML 80 ML IV (10:49)
[2024-06-26] MEDS: HYDROcodone/APAP 5/325 TABLET 1 TAB PO ×2 (11:08→20:20)
[2024-06-26] MEDS: rifaximin 550 MG TABLET PO ×2 (11:09→20:14)
[2024-06-26 11:13] LABS: Slide Review Platelets confirmed
[2024-06-26] MEDS: MIDODRINE 5 MG TABLET 10 MG PO ×2 (11:19→22:00)
[2024-06-26] MEDS: ALBUMIN HUMAN 25% IVPB 25 GM/100 ML BTL IV ×2 (11:37→21:59)
[2024-06-26 13:26] LABS: Reflex Lactate? Y
[2024-06-26] MEDS: LACTULOSE SYRUP 20 GM/30 ML UDC 30 GM PO ×2 (13:47→21:59)
[2024-06-26 14:30] LABS: Lactic Acid, 3 HR 3.7 mMol/L (0.4-2.0)
[2024-06-27] VITALS (13 sets, daily range): BP systolic 93–115; BP diastolic 43–61; PULSE 50–68; RESP 16–19; TEMP 36.2–36.6; O2SAT 97–100; BMI 29.5
[2024-06-27] MEDS: ALBUMIN HUMAN 25% IVPB 25 GM/100 ML BTL IV ×3 (05:35→21:19)
[2024-06-27] MEDS: LACTULOSE SYRUP 20 GM/30 ML UDC 30 GM PO ×3 (05:35→21:19)
[2024-06-27] MEDS: MIDODRINE 5 MG TABLET 10 MG PO ×3 (05:36→21:19)
[2024-06-27 06:20] LABS: Basophils % (Auto) 1 % (0-2.5); Eosinophils # (Auto) 0.1 Thou/mm3 (0.0-0.5); Eosinophils % (Auto) 4 % (0-10); Hematocrit 24.8 % (36.0-46.0); Immature Granulocytes % (Auto) 0 % (0-0); Immature Granulocytes Auto 0.01 Thou/mm3 (0.00-0.00); Lymphocytes # (Auto) 1.1 Thou/mm3 (1.0-4.8); Lymphocytes % (Auto) 40 % (10-50); Mean Corpuscular HGB Conc 33.5 g/dl (31.0-37.0); Mean Corpuscular Hemoglobin 34.9 pg (25.0-35.0); Mean Corpuscular Volume 104 fL (80-100); Monocytes # (Auto) 0.3 Thou/mm3 (0.0-0.8); Monocytes % (Auto) 9 % (0-12); Neutrophils # (Auto) 1.3 Thou/mm3 (1.8-7.7); Neutrophils % (Auto) 46 % (37-80); Nucleated Red Blood Cell % 0 /100 WBC (0); Red Blood Count 2.38 Miln/mm3 (4.00-5.20)
[2024-06-27 06:29] LABS: White Blood Count 2.8 Thou/mm3 (3.6-11.0)
[2024-06-27 06:44] LABS: Partial Thromboplastin Time 50.6 Seconds (22.0-36.0); Prothrombin Time 20.9 Seconds (9.0-12.2)
[2024-06-27 06:50] LABS: Alanine Aminotransferase 10 U/L (10-49); Albumin, Serum 4.4 gm/dL (3.5-5.0); Albumin/Globulin Ratio 1.5 (1.2-2.2); Alkaline Phosphatase 62 U/L (46-116); Anion Gap 11 (7-16); Aspartate Amino Transferase 25 U/L (0-34); BUN/Creatinine Ratio 18 Ratio (12-20); Bilirubin,Total 7.1 mg/dL (0.3-1.2); Blood Urea Nitrogen 34 mg/dL (9-23); Calcium 10.2 mg/dL (8.3-10.6); Calcium (Corrected) 10.2 mg/dL (8.5-10.1); Carbon Dioxide 25.3 mMol/L (20.0-31.0); Chloride 108 mMol/L (98-107); Creatinine (Component) 1.9 mg/dL (0.6-1.3); Estimated Creatinine Clearance 28.7 mL/min (>60); Globulin 2.9 gm/dL (2.3-3.5); Glucose 167 mg/dL (74-106); Magnesium 1.9 mg/dL (1.6-2.6); Osmolality,Calculated 298 (275-295); Phosphorous 3.5 mg/dL (2.4-5.1); Potassium 4.2 mMol/L (3.4-5.1); Sodium 144 mMol/L (136-145); Total Protein 7.3 gm/dL (5.7-8.2); eGFR 31 See Note
[2024-06-27] MEDS: rifaximin 550 MG TABLET PO ×2 (08:53→20:45)
[2024-06-27] MEDS: PANTOPRAZOLE INJ 40 MG VIAL IVP ×2 (08:54→20:44)
--- NOTE | 2024-06-27 09:13 | ESPR_ITS ---
<Statement entered by Mary Grace Friedman MD - 06/27/24 15:29> Patient was seen and examined at bedside. Patient denied any new symptoms. Continues to be lethargic, vital signs blood pressure is low at 93/58 however MAP above 65. Patient on midodrine 3 times daily. She oriented x 3, however she still has some mild asterixis. For the past 24 hours she had 4 bowel movements. She is tolerating lactulose well. Kidney functions are improving her serum creatinine today 1.9 improved from 2.1 yesterday. Patient still on albumin for treatment of hepatorenal syndrome. On evaluation patient was complaining of abdominal pain, abdominal examination showed tenderness in the lower abdomen. Her urine grew GNR, for that reason we will start the patient on nitrofurantoin. I did order for the patient ultrasound of the abdomen to rule out any urinary tract obstruction. Her INR is. However there was no sign of bleeding. Patient was noticed to have worsening leukopenia, I ordered for the patient B12/folic acid levels I will put the patient on isolation precautions. Extensive discussion regarding the need of liver transplantation was conducted with the patient with family members at bedside. - Patient's plan and care discussed with my attending, Dr. Seymour Friedman MD Internal Medicine PGY-2 Documentation for date of: 06/27/24 Subjective Subjective Interval history: Patient was seen and examined at bedside this AM. No acute exents overnight. Patient tolerating diet, adequate urine output and mentation is at baseline. Patient complains of generalized abdominal pain and nausea. Denies any vomiting Had 3 bowel movements in the past 24 hours. On lactulose 30 g p.o. 3 times daily and rifaximin 550 Mg p.o. twice daily Abd US ordered ANC 1.28. Placed on reverse isolation precautions Started Nephro-Dena. B12 and folate levels ordered with a.m. labs Corrected calcium improved to 10.2 and CR 1.9. Continue albumin 25 g IV 3 times daily until 06/28. Urine Culture grew GNR preliminary. Started on Nitrofurantoin 100mg po BID Exam Vital Signs Temp Pulse Resp BP Pulse Ox O2 Del Method 97.2 F 67 16 107/55 L 98 Room Air 06/27/24 08:00 06/27/24 08:00 06/27/24 08:00 06/27/24 08:00 06/27/24 08:00 06/27/24 08:00 Narrative Exam Constitutional Alert, oriented x 3 and comfortable. Scleral icterus HEENT Vision grossly intact. Patent nares. Trachea midline Respiratory Chest normal on inspection and clear auscultation bilaterally Cardiovascular S1 and S2 audible, RRR. No murmurs carotid bruit. No gross JVD. Abdominal Soft, obese and tender to palpation in right upper quadrant and lower quadrants. BS + Genitourinary No bladder tenderness, no flank pain. Normal to palpation Musculoskeletal normal single Extremities tone within normal limits. No LE edema. Neurological CN II - XII grossly intact. Extremity motor and sensation grossly intact. Negative for asterixis Skin Warm, dry and intact. No apparent lesions. Psychiatric Patient has good affect, is cooperative Objective Labs 06/28/24 05:18 06/28/24 05:18 Labs: Laboratory Results - last 24 hr 06/26/24 06/26/24 06/26/24 05:36 09:59 14:25 WBC 3.1 L D RBC 2.71 L Hgb 9.5 L Hct 27.6 L MCV 102 H MCH 35.1 H MCHC 34.4 RDW Std Deviation 67.6 H Plt Count 28 L* D Neut % (Auto) 53 Lymph % (Auto) 34 Towns % (Auto) 9 Eos % (Auto) 3 Baso % (Auto) 1 Neut # (Auto) 1.6 L Lymph # (Auto) 1.0 Towns # (Auto) 0.3 Eos # (Auto) 0.1 Baso # (Auto) 0.0 Immature Gran # (Auto) 0.01 H Absolute Nucleated RBC 0.00 Immature Gran % 0 Nucleated RBC % 0 PT INR APTT Sodium Potassium Chloride Carbon Dioxide Anion Gap BUN Creatinine Estim Creat Clear Calc eGFR BUN/Creatinine Ratio Glucose Calculated Osmolality Lactic Acid 2.2 H 3.7 H Calcium Corrected Calcium Phosphorus Magnesium Total Bilirubin AST ALT Alkaline Phosphatase Total Protein Albumin Globulin Albumin/Globulin Ratio Misc Test Result Platelets confirmed 06/27/24 05:41 WBC 2.8 L RBC 2.38 L Hgb Hct 24.8 L MCV 104 H MCH 34.9 MCHC 33.5 RDW Std Deviation 69.0 H Plt Count Neut % (Auto) 46 Lymph % (Auto) 40 Towns % (Auto) 9 Eos % (Auto) 4 Baso % (Auto) 1 Neut # (Auto) 1.3 L Lymph # (Auto) 1.1 Towns # (Auto) 0.3 Eos # (Auto) 0.1 Baso # (Auto) 0.0 Immature Gran # (Auto) 0.01 H Absolute Nucleated RBC 0.00 Immature Gran % 0 Nucleated RBC % 0 PT 20.9 H INR 2.0 H APTT 50.6 H Sodium 144 Potassium 4.2 D Chloride 108 H Carbon Dioxide 25.3 Anion Gap 11 BUN 34 H Creatinine 1.9 H Estim Creat Clear Calc 28.7 L eGFR 31 L BUN/Creatinine Ratio 18 Glucose 167 H D Calculated Osmolality 298 H Lactic Acid Calcium 10.2 Corrected Calcium 10.2 H Phosphorus 3.5 Magnesium 1.9 Total Bilirubin 7.1 H D AST 25 ALT 10 Alkaline Phosphatase 62 Total Protein 7.3 Albumin 4.4 Globulin 2.9 Albumin/Globulin Ratio 1.5 Misc Test Result Quality Measures Quality Measures none Assessment & Plan Assessment Current Active Medications: Generic Name Dose Route Start Last Admin Trade Name Freq PRN Reason Stop Dose Admin Acetaminophen 325 mg 06/26/24 10:54 Acetaminophen 325 Mg Tablet PO 07/26/24 10:53 Q6HR PRN Fever >100.3 or pain 1-3 Hydrocodone Bitart/Acetaminophen 1 tab 06/26/24 10:53 06/26/24 20:20 Hydrocodone/Apap 5/325 Tablet PO 07/01/24 10:52 1 tab Q6HR PRN Administration PAIN SCALE 4-10(Mod-Sev Albuterol/Ipratropium 3 ml 06/25/24 18:29 Albuterol/Ipratropium (Duoneb) Rt Karis 3 Ml Nebu INH 07/25/24 18:28 Q4HR PRN SHORTNESS OF BREATH OR WHEEZE Albumin Human 25 gm in 100 mls @ 100 mls/hr 06/26/24 14:00 06/27/24 06:38 Albuminar-25 Ivpb IV 06/28/24 13:59 Infused TID CELINA Infusion Lactulose 30 gm 06/26/24 14:00 06/27/24 05:35 Lactulose Syrup 20 Gm/30 Ml Udc PO 07/26/24 13:59 30 gm TID CELINA Administration Protocol Midodrine 10 mg 06/25/24 22:00 06/27/24 05:36 Midodrine 5 Mg Tablet PO 07/25/24 21:59 10 mg TID CELINA Administration Ondansetron HCl 4 mg 06/25/24 18:29 Ondansetron Inj 2 Mg/Ml Inj 2 Ml IV 07/25/24 18:28 Q6H PRN NAUSEA OR VOMITING Protocol Pantoprazole Sodium 40 mg 06/27/24 09:00 06/27/24 08:54 Pantoprazole Inj 40 Mg Vial IVP 07/27/24 08:59 40 mg BID CELINA Administration Rifaximin 550 mg 06/26/24 11:00 06/27/24 08:53 Rifaximin 550 Mg Tablet PO 07/03/24 10:59 550 mg BID CELINA Administration Plan Patient is a 53-year-old female with a past medical history of decompensated alcoholic cirrhosis with esophageal varices recurrent hospital admissions for hepatic encephalopathy presented today with a chief complaint of altered mental status. Patient will be admitted for workup and management of hepatic encephalopathy. Altered Mental status secondary to Hepatic encephalopathy?resolved Abdominal pain Patient had decreased bowel movements for past day and became altered today Head CT negative for acute hemorrhage, mass effect or midline shift. Ammonia 164 Patient complains of generalized abdominal pain and nausea. Denies any vomiting Had 3 bowel movements in the past 24 hours. On lactulose 30 g p.o. 3 times daily and rifaximin 550 Mg p.o. twice daily Abd US ordered Plan: - Cardiac diet - Telemetry monitoring ? Abdominal ultrasound ordered - Continue albumin 25 g IV 3 times daily until - Midodrine 10mg po TID - Lactulose 30 g p.o. 3 times daily ? Rifaximin 550 Mg p.o. twice daily ? To reinforce both patient and caregiver education on lactulose titration prior to discharge Neutropenia ANC 1.3 DDx: B12/folate deficiency, viral infection, copper deficiency Plan: ? B12, folate and copper levels ordered ? Nephro-Dena 1 tab p.o. daily ? Place patient on reduced isolation precautions Asymptomatic bacteriuria Urine culture grew GNR preliminary. Urine culture from previous admissions grew VRE. Currently patient asymptomatic but has lower abdominal pain Plan: ? Started on nitrofurantoin 100 Mg p.o. twice daily Hypercalcemia?improving On admission Ca 11??>10.2 Plan: ? Monitor a.m. labs Lactic acidosis On admission lactic acid 2.1 ---> 3.7 DDx: Hepatic encephalopathy, hypotension Elevated lactic acid in setting of end-stage liver disease. No need to further trend Decompensated alcoholic cirrhosis with coagulopathy, esophageal varices and thrombocytopenia Patient has recurrent episodes in the past for hepatic encephalopathy T. bili 8.6, ammonia 164, PLT 28, INR 2.1 MELD-Na Score ; 30 points ; 27-32% 90-day mortality. Child-Paniagua score ; 9 points; child class B, indication for transplant evaluation. Abdominal surgery perioperative mortality 30%. Plan: ? Diuretics on hold due to low blood pressure Acute kidney injury prerenal versus renal?improving On admission BUN 35, CR 2.3 ---> 1.9 Most likely prerenal due to hypotension and hypoperfusion of kidney Plan: ? Continue albumin challenge ? Gentle IV hydration as necessary ? Avoid renal toxic agents ? Renally dose medication Health maintenance: Disposition: IV albumin, p.o. lactulose. Anticipate discharge within next 24 to 48 hours Diet: Cardiac, 1500 cc fluid restriction Lines: pIVs GI Prophylaxis: Pantoprazole Thrombo Prophylaxis: SCDs Code status: FULL CODE Plan of care discussed with Attending Dr. Ahuja and PGY2 Dr. Idalia Ballesteros MD PGY 1 Disclaimer: This note was dictated by speech recognition. Minor errors in assistant professor of marine biology may be present due to voice recognition software. Attending Provider Attestation/Addendum I have examined the patient, reviewed labs and imaging findings, discussed the case with the resident(s), and reviewed entered orders. I agree with the plan of care as outlined in this note, with these additional summaries/recommendations: Patient seen at bedside. No acute overnight events. Patient's mental status continues to improve. Continue lactulose titrated to 2-3 bowel movements a day for hepatic encephalopathy. Acute kidney injury also improving daily with IV fluids. Creatinine now down to 1.9 and urine output appropriate. Continue antibiotic for urinary tract infection and urine culture preliminarily showing gram-negative rods. Lactic acidosis persists although most likely secondary to underlying decompensated cirrhosis with decreased clearance. Patient endorsing some abdominal pain we will obtain abdominal ultrasound. Patient was counseled extensively on the importance of following up with outpatient transplant center for liver transplant. Patient and family appeared to show understanding. If patient continues to improve then anticipate discharge in the next [address] Seymour MD
[2024-06-27 09:43] LABS: Hemoglobin 8.3 g/dL (12.0-16.0)
[2024-06-27 09:44] LABS: Platelet Count 27 Thou/mm3 (140-440); Slide Review Platelets confirmed
--- NOTE | 2024-06-27 09:49 | PC.CM ---
Patient is opened to [facility]. If patient discharges home she will need new home health orders.
--- NOTE | 2024-06-27 09:51 | XR_ITS ---
Examination: Abdomen sonogram, complete Date and time of exam: June 27, 2024 1323 hours INDICATIONS: Jaundice upper abdominal pain several years, diagnosis cirrhosis one year ago. Technique: Multiple real-time grayscale transabdominal sonographic images of the abdomen have been obtained. Findings: Contracted gallbladder Gallbladder wall 0.67 cm Common bile duct 0.3 cm Pancreas obscured by bowel gas Proximal aorta visualized not enlarged Liver 13 cm fatty infiltration Normal hepatopedal portal venous flow Patent IVC Right kidney 10.9 cm renal cortex 2.1 cm 40 mm cyst Left kidney 11.7 cm cortex 1.7 cm Mild renal parenchymal scar formation Spleen 16.9 cm IMPRESSION: Cirrhosis, significant splenomegaly Contracted gallbladder with thickened gallbladder wall, repeat the gallbladder portion of this study with fasting
--- NOTE | 2024-06-27 10:35 | PC.SS ---
Late note 06-26-24: SS met with patient regarding her d/c plan. Pt is alert/oriented. Pt was admitted for Hepatic Encephalopathy. Pt confirmed demographic and contact information is correct on facesheet. Pt resides with mom and kids. Pt states she has 2 walkers at home. Pt utilizes a 2 wheel walker and 4 wheel with seat, rollator walker. Pt requires assistance with all ADLs. Pt states she is in the process of reciveing IHSS. Patient?s pharmacy of choice is [facility]. Pt named her mom, Bridgett Knight medical decision maker if whe is unable. SS provided verbal options for d/c to home or SNF. Pt refused SNF. Patient?s choice is to return home upon d/c. Pt states she has [facility] in the past and her request is to resume with services with them. Pt states she last followed up with PCP at the [facility] in June. Pt states her mom and dtr help care for her at home. Pt states her mom will provide transportation. D/C plan: Return home Next of Kin: Bridgett Menendez, mom, phone# [phone] PCP: Dr. Marielos Stephens Address: Correct on facesheet
[2024-06-27] MEDS: VIT B12/Vit C/FA (Nephrovite) TABLET 1 TAB PO (12:16)
[2024-06-27] MEDS: NITROFURANTOIN MACRO 100 MG CAPSULE PO ×2 (12:16→20:45)
--- NOTE | 2024-06-27 15:30 | PC.SS ---
Rounding note: pending clinical improvement, ultra sound pending and patient complaining of abdominal pain.
[2024-06-27] MEDS: HYDROcodone/APAP 5/325 TABLET 1 TAB PO (21:42)
[2024-06-28] VITALS (10 sets, daily range): BP systolic 105–128; BP diastolic 56–71; PULSE 58–75; RESP 12–16; TEMP 36.1–36.6; O2SAT 97–99; BMI 12.0
[2024-06-28] MEDS: LACTULOSE SYRUP 20 GM/30 ML UDC 30 GM PO ×2 (05:12→13:34)
[2024-06-28] MEDS: ALBUMIN HUMAN 25% IVPB 25 GM/100 ML BTL IV (05:13)
[2024-06-28] MEDS: MIDODRINE 5 MG TABLET 10 MG PO ×3 (05:13→21:30)
[2024-06-28 05:48] LABS: Basophils % (Auto) 1 % (0-2.5); Eosinophils # (Auto) 0.2 Thou/mm3 (0.0-0.5); Eosinophils % (Auto) 5 % (0-10); Hematocrit 22.8 % (36.0-46.0); Immature Granulocytes % (Auto) 0 % (0-0); Immature Granulocytes Auto 0.01 Thou/mm3 (0.00-0.00); Lymphocytes % (Auto) 32 % (10-50); Mean Corpuscular HGB Conc 33.8 g/dl (31.0-37.0); Mean Corpuscular Hemoglobin 35.2 pg (25.0-35.0); Mean Corpuscular Volume 104 fL (80-100); Monocytes # (Auto) 0.3 Thou/mm3 (0.0-0.8); Monocytes % (Auto) 11 % (0-12); Neutrophils # (Auto) 1.5 Thou/mm3 (1.8-7.7); Neutrophils % (Auto) 51 % (37-80); Nucleated Red Blood Cell % 0 /100 WBC (0); RDW Standard Deviation 65.6 fL (36.4-46.3); Red Blood Count 2.19 Miln/mm3 (4.00-5.20)
[2024-06-28 05:55] LABS: Hemoglobin 7.7 g/dL (12.0-16.0)
[2024-06-28 05:56] LABS: Platelet Count 24 Thou/mm3 (140-440)
[2024-06-28 05:57] LABS: Slide Review Platelets confirmed
[2024-06-28 06:16] LABS: Alanine Aminotransferase 12 U/L (10-49); Albumin, Serum 4.6 gm/dL (3.5-5.0); Albumin/Globulin Ratio 1.6 (1.2-2.2); Alkaline Phosphatase 77 U/L (46-116); Anion Gap 12 (7-16); Aspartate Amino Transferase 26 U/L (0-34); BUN/Creatinine Ratio 18 Ratio (12-20); Bilirubin,Total 5.8 mg/dL (0.3-1.2); Blood Urea Nitrogen 23 mg/dL (9-23); Calcium 10.3 mg/dL (8.3-10.6); Calcium (Corrected) 10.3 mg/dL (8.5-10.1); Carbon Dioxide 24.6 mMol/L (20.0-31.0); Chloride 108 mMol/L (98-107); Creatinine (Component) 1.3 mg/dL (0.6-1.3); Estimated Creatinine Clearance 41.9 mL/min (>60); Globulin 2.8 gm/dL (2.3-3.5); Glucose 156 mg/dL (74-106); INR 2.2 (0.9-1.3); Magnesium 1.9 mg/dL (1.6-2.6); Osmolality,Calculated 295 (275-295); Partial Thromboplastin Time 58.1 Seconds (22.0-36.0); Phosphorous 2.6 mg/dL (2.4-5.1); Potassium 4.6 mMol/L (3.4-5.1); Prothrombin Time 22.4 Seconds (9.0-12.2); Sodium 145 mMol/L (136-145); Total Protein 7.4 gm/dL (5.7-8.2); eGFR 49 See Note
[2024-06-28 06:21] LABS: Folate 22.35 ng/mL (>5.38); Vitamin B12 306 pg/mL (211-911)
[2024-06-28] MEDS: VIT B12/Vit C/FA (Nephrovite) TABLET 1 TAB PO (08:24)
[2024-06-28] MEDS: rifaximin 550 MG TABLET PO ×2 (08:24→21:31)
[2024-06-28] MEDS: HYDROcodone/APAP 5/325 TABLET 1 TAB PO (08:24)
[2024-06-28] MEDS: NITROFURANTOIN MACRO 100 MG CAPSULE PO ×2 (08:24→21:31)
[2024-06-28] MEDS: PANTOPRAZOLE INJ 40 MG VIAL IVP (08:24)
[2024-06-28] MEDS: PHYTONADIONE INJ 10 MG in SODIUM CHLORIDE 0.9% 50 ML 204 MG IV (08:25)
--- NOTE | 2024-06-28 12:41 | PC.SS ---
SS update: PT provider Sayda informed recommendation for dale lift for the patient. Per SS notes, DME was ordered during February 2024.
--- NOTE | 2024-06-28 14:59 | ESPR_ITS ---
Documentation for date of: 06/28/24 Subjective Subjective Interval history: Patient was seen and examined at bedside. Patient had 2 bowel movements since last night. Patient denied any new symptoms at this time. However today we noted that her hemoglobin is downtrending from 10.5 on admission to 7.7 today, patient does not know if she is bleeding when she go for a bowel movement. Her INR also uptrending to 2.2, serum creatinine went down to 1.3 from 1.9. Tomorrow will DC albumin. Because of the downtrending of hemoglobin we will keep the patient for today, order FOBT and consult GI. Her last endoscopy was done on 13 June 2024 which showed esophageal varices which were banded. Her urine culture grew E. coli ESBL for that reason we put the patient on contact isolation, patient already on ceftriaxone according to the culture and sensitivity results. Exam Vital Signs Temp Pulse Resp BP Pulse Ox O2 Del Method 97.9 F 63 16 105/56 L 98 Room Air 06/28/24 12:00 06/28/24 13:35 06/28/24 12:00 06/28/24 13:35 06/28/24 12:00 06/28/24 12:00 Narrative Exam GEN: AOx3, able to speak full sentences, mildly lethargic HEENT: NC/AC, icteric, oral mucosa moist, neck supple CVS: RRR, S1-S2 present, no murmurs appreciated RESP: CTAB GI: soft, mildly distended, lower abdominal tenderss however no rigidity. NBS MSK: able to move all 4 limbs, no lower extremity edema SKIN: warm and dry YARN CLEANER: CN II-XII and Sensation grossly intact. Objective Labs 06/29/24 05:40 06/29/24 05:40 Labs: Laboratory Results - last 24 hr 06/28/24 05:18 WBC 3.0 L RBC 2.19 L Hgb 7.7 L Hct 22.8 L MCV 104 H MCH 35.2 H MCHC 33.8 RDW Std Deviation 65.6 H Plt Count 24 L* Neut % (Auto) 51 Lymph % (Auto) 32 Bureau % (Auto) 11 Eos % (Auto) 5 Baso % (Auto) 1 Neut # (Auto) 1.5 L Lymph # (Auto) 1.0 Bureau # (Auto) 0.3 Eos # (Auto) 0.2 Baso # (Auto) 0.0 Immature Gran # (Auto) 0.01 H Absolute Nucleated RBC 0.00 Immature Gran % 0 Nucleated RBC % 0 PT 22.4 H INR 2.2 H APTT 58.1 H Sodium 145 Potassium 4.6 Chloride 108 H Carbon Dioxide 24.6 Anion Gap 12 BUN 23 Creatinine 1.3 D Estim Creat Clear Calc 41.9 L eGFR 49 L BUN/Creatinine Ratio 18 Glucose 156 H Calculated Osmolality 295 Calcium 10.3 Corrected Calcium 10.3 H Phosphorus 2.6 Magnesium 1.9 Total Bilirubin 5.8 H D AST 26 ALT 12 Alkaline Phosphatase 77 D Total Protein 7.4 Albumin 4.6 Globulin 2.8 Albumin/Globulin Ratio 1.6 Vitamin B12 306 Folate 22.35 Misc Test Result Platelets confirmed Quality Measures Quality Measures none Assessment & Plan Assessment Current Active Medications: Generic Name Dose Route Start Last Admin Trade Name Freq PRN Reason Stop Dose Admin Acetaminophen 325 mg 06/26/24 10:54 Acetaminophen 325 Mg Tablet PO 07/26/24 10:53 Q6HR PRN Fever >100.3 or pain 1-3 Hydrocodone Bitart/Acetaminophen 1 tab 06/26/24 10:53 06/28/24 08:24 Hydrocodone/Apap 5/325 Tablet PO 07/01/24 10:52 1 tab Q6HR PRN Administration PAIN SCALE 4-10(Mod-Sev Albuterol/Ipratropium 3 ml 06/25/24 18:29 Albuterol/Ipratropium (Duoneb) Rt Karis 3 Ml Nebu INH 07/25/24 18:28 Q4HR PRN SHORTNESS OF BREATH OR WHEEZE Lactulose 30 gm 06/26/24 14:00 06/28/24 13:34 Lactulose Syrup 20 Gm/30 Ml Udc PO 07/26/24 13:59 30 gm TID CELINA Administration Protocol Midodrine 10 mg 06/25/24 22:00 06/28/24 13:35 Midodrine 5 Mg Tablet PO 07/25/24 21:59 10 mg TID CELINA Administration Nitrofurantoin Macrocrystals 100 mg 06/28/24 09:45 06/28/24 11:47 Nitrofurantoin Macro 100 Mg Capsule PO 07/05/24 09:44 Not Given BID [facility] Ondansetron HCl 4 mg 06/25/24 18:29 Ondansetron Inj 2 Mg/Ml Inj 2 Ml IV 07/25/24 18:28 Q6H PRN NAUSEA OR VOMITING Protocol Pantoprazole Sodium 40 mg 06/28/24 21:00 Pantoprazole 40 Mg Tablet PO 07/28/24 20:59 BID CELINA Rifaximin 550 mg 06/26/24 11:00 06/28/24 08:24 Rifaximin 550 Mg Tablet PO 07/03/24 10:59 550 mg BID CELINA Administration Vitamin B Complex/Vit C/Folic Acid 1 tab 06/27/24 09:30 06/28/24 08:24 Vit B12/Vit C/Fa (Nephrovite) Tablet PO 07/27/24 09:29 1 tab QDAY CELINA Administration Plan Patient is a 53-year-old female with a past medical history of decompensated alcoholic cirrhosis with esophageal varices recurrent hospital admissions for hepatic encephalopathy presented today with a chief complaint of altered mental status. Patient will be admitted for workup and management of hepatic encephalopathy. Worsening anemia most likely secondary to upper GI bleed Coagulopathy most likely secondary to cirrhosis At presentation patient hemoglobin was 10.5, patient has history of esophageal varices Last EGD was done in 13 June 2024 and showed grade 2 esophageal varices status post ligation Plan ? Fecal occult blood test ? GI consultation that marcelo will Robbi was sent, follow-up on recommendations ? Repeat H&H at 12 AM ? Daily coagulation panel Altered Mental status secondary to Hepatic encephalopathy?improving Abdominal pain UTI Patient had decreased bowel movements for past day and became altered today Head CT negative for acute hemorrhage, mass effect or midline shift. Ammonia 164 Patient complains of generalized abdominal pain and nausea. Denies any vomiting Had 3 bowel movements in the past 24 hours. On lactulose 30 g p.o. 3 times daily and rifaximin 550 Mg p.o. twice daily Abd US ordered showedCirrhosis, significant splenomegaly Plan: - Cardiac diet - Telemetry monitoring - Continue albumin 25 g IV 3 times daily until - Midodrine 10mg po TID - Lactulose 30 g p.o. 3 times daily ? Rifaximin 550 Mg p.o. twice daily ? To reinforce both patient and caregiver education on lactulose titration prior to discharge Neutropenia ANC 1.3 DDx: B12/folate deficiency, viral infection, copper deficiency Plan: ? B12, folate and copper levels ordered ? Nephro-Dena 1 tab p.o. daily ? Place patient on reduced isolation precautions ESBL UTI Urine culture grew GNR preliminary. Urine culture from previous admissions grew VRE. Currently patient asymptomatic but has lower abdominal pain Culture resulted in ESBL E. coli. Plan: ? Started on nitrofurantoin 100 Mg p.o. twice daily Hypercalcemia?improving On admission Ca 11??>10.2 Plan: ? Monitor a.m. labs Lactic acidosis On admission lactic acid 2.1 ---> 3.7 DDx: Hepatic encephalopathy, hypotension Elevated lactic acid in setting of end-stage liver disease. No need to further trend Decompensated alcoholic cirrhosis with coagulopathy, esophageal varices and thrombocytopenia Patient has recurrent episodes in the past for hepatic encephalopathy T. bili 8.6, ammonia 164, PLT 28, INR 2.1 MELD-Na Score ; 30 points ; 27-32% 90-day mortality. Child-Paniagua score ; 9 points; child class B, indication for transplant evaluation. Abdominal surgery perioperative mortality 30%. Plan: ? Diuretics on hold due to low blood pressure Acute kidney injury prerenal versus renal?improving On admission BUN 35, CR 2.3 ---> 1.9 Most likely prerenal due to hypotension and hypoperfusion of kidney Plan: ? Continue albumin challenge ? Gentle IV hydration as necessary ? Avoid renal toxic agents ? Renally dose medication Health maintenance: Disposition: IV albumin, p.o. lactulose. Anticipate discharge within next 24 to 48 hours Diet: Cardiac, 1500 cc fluid restriction Lines: pIVs GI Prophylaxis: Pantoprazole Thrombo Prophylaxis: SCDs Code status: FULL CODE - Patient's plan and care discussed with my attending, Dr. Seymour Friedman MD Internal Medicine PGY-2 Attending Provider Attestation/Addendum I have examined the patient, reviewed labs and imaging findings, discussed the case with the resident(s), and reviewed entered orders. I agree with the plan of care as outlined in this note, with these additional summaries/recommendations: Patient seen at bedside. No acute overnight events. Patient's mental status continues to improve. Continue lactulose titrated to 2-3 bowel movements a day for hepatic encephalopathy & rifaxmin. Patient has had down trending hemoglobin since admission. FOBT ordered. Given patients history of 3+ esophageal varices we will consult gastroenterology for recommendation. Acute kidney injury also improving daily. Creatinine now down to 1.3 and urine output appropriate. Continue antibiotic for urinary tract infection and urine culture grew ESBL E. Coli. Patient was counseled extensively on the importance of following up with outpatient transplant center for liver transplant. Patient and family appeared to show understanding. If patient continues to improve then anticipate discharge in the next [address] Seymour MD
--- NOTE | 2024-06-28 16:14 | PC.SS ---
Rounding note: pending hemoglobin level and mentation improvement.
--- NOTE | 2024-06-28 19:45 | PD.IMCONS ---
HPI Data of Consult Requesting Physician: Stephen Ahuja MD Primary Care Provider: Marielos Stephens MD Consult Narrative Reason for consult: Altered mental status History of present illness: 53 years old female brought in by the mother to the emergency room because of altered mental status she has a known history of cirrhotic liver disease secondary to alcohol although she has been abstinent from alcohol for few months At the time of my interview she was more alert and oriented She has been given lactulose enema in the ER Her total bilirubin was 7.1 with AST ALT of 35 and 20 and the bilirubin has dropped down as of today to 5.8 She does have a previous history of bile ligation of the esophageal varices and current hemoglobin hematocrit on admission was 8.3 and 24.8 with a platelet count of 27,000 and a BUN/creatinine of 34 and 1.9 BUN/creatinine has improved and hemoglobin hematocrit has dropped down to 7.7 and 22.8 with a platelet count of 24,000 Pro time INR is 2.2 cc:: cc: Stephen Ahuja MD Review of Systems Review of Systems ROS Unobtainable: unobtainable due to medical condition Meds Home Medications and Allergies Home Medications ?Medication ?Instructions ?Recorded ?Confirmed ?Type rifaximin 550 mg tablet (Xifaxan) 550 mg PO BID 01/12/24 06/26/24 History ergocalciferol (vitamin D2) 1,250 1,250 mcg PO QWEEK 02/06/24 06/26/24 History mcg (50,000 unit) capsule (Vitamin D2) methocarbamol 750 mg tablet 750 mg PO BID 02/06/24 06/26/24 History multivitamin 1 tab PO QDAY 05/11/24 06/26/24 History ferrous sulfate 325 mg (65 mg 325 mg PO QAM 06/26/24 06/26/24 History iron) tablet lactulose 10 gram/15 mL oral 10 g PO TID 06/26/24 06/26/24 History solution midodrine 5 mg tablet 10 mg PO TID 06/26/24 06/26/24 History Allergies Allergy/AdvReac Type Severity Reaction Status Date / Time latex Allergy Severe Hives Verified 06/25/24 14:32 Exam Vital Signs Temp Pulse Resp BP Pulse Ox O2 Del Method 97.8 F 65 12 128/71 98 Room Air 06/28/24 16:00 06/28/24 16:00 06/28/24 16:00 06/28/24 16:00 06/28/24 16:00 06/28/24 16:00 Constitutional Comments: Chronically ill-appearing Routine Respiratory Exam Comments: Normal to auscultation Results Labs 06/28/24 05:18 06/28/24 05:18 Labs: Short CBC 06/28/24 Range/Units 05:18 WBC 3.0 L (3.6-11.0) Thou/mm3 Hgb 7.7 L (12.0-16.0) g/dL Hct 22.8 L (36.0-46.0) % Plt Count 24 L* (140-440) Thou/mm3 BMP 06/28/24 05:18 Sodium 145 Potassium 4.6 Chloride 108 H Carbon Dioxide 24.6 BUN 23 Creatinine 1.3 D Glucose 156 H Calcium 10.3 Liver Function 06/28/24 Range/Units 05:18 Total Bilirubin 5.8 H D (0.3-1.2) mg/dL AST 26 (0-34) U/L ALT 12 (10-49) U/L Alkaline Phosphatase 77 D (46-116) U/L Albumin 4.6 (3.5-5.0) gm/dL Assessment and Plan Additional Assessment & Plan Additional Plan: Acute hepatic encephalopathy Continue current management with lactulose and Xifaxan Chronic anemia blood loss Continue to monitor CBC and no signs of any active bleeding at the moment No need for any endoscopy at this time Chronic liver disease secondary to alcohol Thrombocytopenia and coagulopathy secondary to above Will follow the patient Thank you very much for the opportunity to participate in care of this patient
[2024-06-28] MEDS: PANTOPRAZOLE 40 MG TABLET PO (21:31)
[2024-06-29] VITALS (7 sets, daily range): BP systolic 105–123; BP diastolic 54–74; PULSE 66–85; RESP 14–20; TEMP 36.1–36.3; O2SAT 96–98
[2024-06-29] MEDS: HYDROcodone/APAP 5/325 TABLET 1 TAB PO ×2 (01:54→09:43)
[2024-06-29] MEDS: MIDODRINE 5 MG TABLET 10 MG PO ×2 (05:22→14:15)
[2024-06-29 06:16] LABS: Basophils % (Auto) 1 % (0-2.5); Eosinophils # (Auto) 0.2 Thou/mm3 (0.0-0.5); Eosinophils % (Auto) 4 % (0-10); Hematocrit 24.1 % (36.0-46.0); Immature Granulocytes % (Auto) 0 % (0-0); Immature Granulocytes Auto 0.01 Thou/mm3 (0.00-0.00); Lymphocytes # (Auto) 0.7 Thou/mm3 (1.0-4.8); Lymphocytes % (Auto) 18 % (10-50); Mean Corpuscular HGB Conc 34.4 g/dl (31.0-37.0); Mean Corpuscular Volume 102 fL (80-100); Monocytes # (Auto) 0.3 Thou/mm3 (0.0-0.8); Monocytes % (Auto) 9 % (0-12); Neutrophils # (Auto) 2.7 Thou/mm3 (1.8-7.7); Neutrophils % (Auto) 68 % (37-80); Nucleated Red Blood Cell % 0 /100 WBC (0); RDW Standard Deviation 63.6 fL (36.4-46.3); Red Blood Count 2.37 Miln/mm3 (4.00-5.20); White Blood Count 3.9 Thou/mm3 (3.6-11.0)
[2024-06-29 06:20] LABS: Alanine Aminotransferase 12 U/L (10-49); Albumin, Serum 4.7 gm/dL (3.5-5.0); Albumin/Globulin Ratio 1.6 (1.2-2.2); Alkaline Phosphatase 105 U/L (46-116); Anion Gap 9 (7-16); Aspartate Amino Transferase 29 U/L (0-34); BUN/Creatinine Ratio 16 Ratio (12-20); Bilirubin,Total 5.5 mg/dL (0.3-1.2); Blood Urea Nitrogen 19 mg/dL (9-23); Calcium 10.5 mg/dL (8.3-10.6); Calcium (Corrected) 10.5 mg/dL (8.5-10.1); Carbon Dioxide 25.8 mMol/L (20.0-31.0); Chloride 107 mMol/L (98-107); Creatinine (Component) 1.2 mg/dL (0.6-1.3); Estimated Creatinine Clearance 45.4 mL/min (>60); Globulin 2.9 gm/dL (2.3-3.5); Glucose 209 mg/dL (74-106); INR 2.1 (0.9-1.3); Osmolality,Calculated 291 (275-295); Phosphorous 2.1 mg/dL (2.4-5.1); Potassium 5.1 mMol/L (3.4-5.1); Prothrombin Time 21.6 Seconds (9.0-12.2); Sodium 142 mMol/L (136-145); Total Protein 7.6 gm/dL (5.7-8.2); eGFR 54 See Note
[2024-06-29 06:21] LABS: Hemoglobin 8.3 g/dL (12.0-16.0)
[2024-06-29 06:23] LABS: Platelet Count 26 Thou/mm3 (140-440)
[2024-06-29 07:35] LABS: OBS Card Lot # 23001; OBS Developer Lot # 23002; OBS Performed By MILLB; OBS QC OK? Yes
[2024-06-29 07:53] LABS: Slide Review Platelets confirmed
[2024-06-29 08:30] LABS: Occult Blood, Stool Negative (Negative)
[2024-06-29] MEDS: rifaximin 550 MG TABLET PO (08:31)
[2024-06-29] MEDS: NITROFURANTOIN MACRO 100 MG CAPSULE PO (08:31)
[2024-06-29] MEDS: PANTOPRAZOLE 40 MG TABLET PO (08:31)
[2024-06-29] MEDS: VIT B12/Vit C/FA (Nephrovite) TABLET 1 TAB PO (08:31)
[2024-06-29] MEDS: SOD PHOS ADDITIVE 15 MMOL in SODIUM CHLORIDE 0.9% 250 ML 250 ML 62.5 MMOL IV (09:43)
--- NOTE | 2024-06-29 10:30 | ESDS_ITS ---
Planned Discharge Date 06/29/24 DS: Providers Provider Date of admission: 06/25/24 18:29 Primary care physician: Marielos Stephens MD Admitting Provider: Godfrey Sosa MD Attending Provider on Admission: Stephen Ahuja MD Consults: 06/26/24 01:16 Referral Infection Control Routine Comment: patient had vre on recent visit 06/13/24 Reason for Infection Control Referral: Readmitted within 30 days Other - See Comments 06/26/24 01:41 Referral Wound Care Routine Comment: Instructions: readmit within 30 days with wound to pavithra buttocks, possible from lactulose use 06/26/24 01:42 Referral Nutritional Services Routine Comment: Instructions: wounds 06/26/24 10:15 Health Equity Referral - Knowledge Deficit Routine Comment: Positive screening for knowledge deficit needs. [facility]ity Referral - Nutrition Routine Comment: Positive screening for nutrition needs. 06/28/24 09:45 PT [Referral Physical Therapy] Urgent Comment: Physician Instructions: 06/28/24 14:17 Consult to Gastroenterology Urgent Comment: Cirrhosis with downtrending Hb. Consulting Provider: Brenda Culp Attending Provider on DC: Stephen Ahuja MD Discharging Provider: Pino Ballesteros MD DS: Diagnosis Problem List Completed Was Problem List Reviewed/Reconciled?: Yes Hospital Course Hospital Course Hospital course: Patient is a 53-year-old female with a past medical history of decompensated alcoholic cirrhosis with esophageal varices recurrent hospital admissions for hepatic encephalopathy presented today with a chief complaint of altered mental status. Patient will be admitted for workup and management of hepatic encephalopathy. For her hepatic encephalopathy, patient was originally treated with lactulose en emas via rectal tube after which mentation improved within 24 hours. She was then transition to lactulose 30 g p.o. 3 times daily and titrated over the course of hospitalization to 20 g p.o. 3 times daily to achieve 2?3 bowel movements per day. Rifaximin, her home medication was also continued. Head CT was negative for acute hemorrhage, mass effect or midline shift. With regards to chronic worsening anemia, GI was consulted as well as FOBT. GI, Dr. Culp recommended no need for endoscopy at this time as there is no evidence of active bleeding. FOBT was negative. Regarding her acute kidney injury, she was treated with albumin IV and gentle IV fluid resuscitation. Her creatinine improved from 2.3 on admission to 1.1 upon discharge. ESBL UTI was treated with 2 days of nitrofurantoin 100 Mg p.o. twice daily. Will be discharged with a 5-day course to complete treatment. All patient's labs are now returning to her baseline. Patient is now clinically stable and fit for discharge to home. Discharge diagnosis: 1. Hepatic encephalopathy?resolved 2. ESBL UTI 3. Neutropenia?resolved 4. Hypercalcemia?resolved 5. Lactic acidosis 6. Decompensated alcoholic cirrhosis with coagulopathy, esophageal varices and thrombocytopenia 7. Acute kidney injury?resolved Discharge plan: - We have started you on an antibiotic for your urine infection. Take one tablet twice a day for the next 5 days to complete the course. - We have changed your Lactulose to 20g three times a day. Increase if you have less than 2 bowel movements a day and decrease if you have more than 3 bowel movements a day. - The maximum dose of lactulose you can take is 30g four times a day. - We have changed your midodrine to as needed for blood pressure <100. - We have changed your Iron supplement to every other day to decrease risk of constipation and for better absorption. - We have put a hold on your lasix and spironolactone until you see your primary doctor. - Continue the rest of your home medication as before. - Continue to Follow up with Liver transplant center. ? You will have to restrict your daily liquid intake to 1.5 Litres / 50 ounces per day. This includes water, teas, coffees and soups. ? You will have to follow a low salt diet for the rest of your life. This means no Sinhala food or fast food. ? You will have to take your weight daily. If your weight increases by more than 3-5 pounds in 1-2 days, take an extra water pill that day. ? Keep a log of your blood pressures to take to your primary doctor. - See your Primary doctor for a referral to a quality control microbiology supervisor for your ingrown toenail. - Follow up with your primary care physician within 1 week of discharge. If you do not have a primary care physician, please follow up with the [facility] Residents clinic ([phone]) ? If you experience any new, worsening or persistent symptoms either call your primary doctor, or dial 911 or present to the emergency department. We are grateful to be able to participate in Ms. Knight' care. We wish her the best. Plan of care discussed with Attending Dr. Seymour Ballesteros MD PGY 1 Disclaimer: This note was dictated by speech recognition. Minor errors in baseboard heating installer may be present due to voice recognition software. Time Spent with Patient Time attestation: Total time spent providing and/or coordinating discharge services: Time spent: Greater than 30 minutes (38) Exam Vital Signs Temp Pulse Resp BP Pulse Ox O2 Del Method 97.3 F 66 20 118/67 97 Room Air 06/29/24 08:00 06/29/24 08:00 06/29/24 08:00 06/29/24 08:00 06/29/24 08:00 06/29/24 08:00 Narrative Exam Constitutional Alert, oriented x 3 and comfortable. Scleral icterus HEENT Vision grossly intact. Patent nares. Trachea midline Respiratory Chest normal on inspection and clear auscultation bilaterally Cardiovascular S1 and S2 audible, RRR. No murmurs carotid bruit. No gross JVD. Abdominal Soft, obese and tender to palpation in right upper quadrant and lower quadrants. BS + Genitourinary No bladder tenderness, no flank pain. Normal to palpation Musculoskeletal normal single Extremities tone within normal limits. No LE edema. Neurological CN II - XII grossly intact. Extremity motor and sensation grossly intact. Negative for asterixis Skin Warm, dry and intact. No apparent lesions. Psychiatric Patient has good affect, is cooperative Discharge Plan Plan Patient Disposition: HOME (Self Care) Patient condition on transfer: Stable and Benefits outweigh risks Care Plan Goals: - We have started you on an antibiotic for your urine infection. Take one tablet twice a day for the next 5 days to complete the course. - We have changed your Lactulose to 20g three times a day. Increase if you have less than 2 bowel movements a day and decrease if you have more than 3 bowel movements a day. - The maximum dose of lactulose you can take is 30g four times a day. - We have changed your midodrine to as needed for blood pressure <100. - We have changed your Iron supplement to every other day to decrease risk of constipation and for better absorption. - We have put a hold on your lasix and spironolactone until you see your primary doctor. - Continue the rest of your home medication as before. - Continue to Follow up with Liver transplant center. ? You will have to restrict your daily liquid intake to 1.5 Litres / 50 ounces per day. This includes water, teas, coffees and soups. ? You will have to follow a low salt diet for the rest of your life. This means no Sinhala food or fast food. ? You will have to take your weight daily. If your weight increases by more than 3-5 pounds in 1-2 days, take an extra water pill that day. ? Keep a log of your blood pressures to take to your primary doctor. - See your Primary doctor for a referral to a quality control microbiology supervisor for your ingrown toenail. - Follow up with your primary care physician within 1 week of discharge. If you do not have a primary care physician, please follow up with the [facility] Residents clinic ([phone]) ? If you experience any new, worsening or persistent symptoms either call your primary doctor, or dial 911 or present to the emergency department. Prescriptions/Referrals Prescriptions/Med Rec: New nitrofurantoin monohyd/m-cryst 100 mg Capsule 100 mg PO BID 5 Days Qty: 10 0RF midodrine 10 mg tablet 10 mg PO TID PRN (Reason: Blood pressure <100) 30 Days Qty: 60 0RF Rx Instructions: do not give last dose of day after 6PM or within 4 hrs of bedtime lactulose 10 gram/15 mL solution 20 g PO TID MDD 180 ml 30 Days Qty: 2700 0RF ferrous sulfate 300 mg (60 mg iron)/5 mL liquid 300 mg PO Q OTHER DAY 30 Days Qty: 75 0RF Continued mirtazapine 15 mg tablet 15 mg PO HS 30 Days Qty: 30 2RF Rx Instructions: Take one tablet before bedtime everyday propranolol 10 mg tablet 10 mg PO BID 30 Days Qty: 60 2RF Rx Instructions: Take one tablet by mouth twice a day hydrocodone-acetaminophen 5-325 mg tablet 1 tab PO BID MDD 2 Tablets PRN (Reason: pain) 30 Days Qty: 30 0RF Rx Instructions: Take one tablet as needed twice a day for pain methocarbamol 750 mg Tablet 750 mg PO BID ergocalciferol (vitamin D2) [Vitamin D2] 1,250 mcg (50,000 unit) Capsule 1,250 mcg PO QWEEK Xifaxan 550 mg tablet 550 mg PO BID Patient Comments: TAKE 1 TABLET BY MOUTH TWICE A DAY FOR 1 MONTH multivitamin Tablet 1 tab PO QDAY Patient Comments: TAKE 1 TABLET BY MOUTH ONCE DAILY EVERY MORNING AT 9AM pantoprazole [Protonix] 40 mg tablet,delayed release (DR/EC) 40 mg PO BID Qty: 30 0RF Held spironolactone 25 mg tablet 50 mg PO QDAY Qty: 30 0RF Hold Instructions: Hold until you see PCP furosemide [Lasix] 20 mg tablet 20 mg PO QDAY Qty: 90 0RF Hold Instructions: Hold until you see PCP Rx Instructions: Hold if SBP drops below 100 and DBP below 60 mmHg Discontinued lactulose 20 gram/30 mL Solution 30 g PO TID 30 Days Qty: 4050 1RF ferrous sulfate 325 mg (65 mg iron) tablet 325 mg PO QAM Patient Comments: TAKE 1 TAB BY MOUTH DAILY WITH ORANGE JUICE. DO NOT GIVE WITH CAFFEINE. midodrine 5 mg tablet 10 mg PO TID Rx Instructions: Take one tablet by mouth three times daily lactulose 10 gram/15 mL solution 10 g PO TID Referrals: Marielos Stephens MD [Primary Care Provider] - Patient/Caregiver Discharge Instructions Education Materials: Lactulose Oral Solution 10 g/15 mL, Hepatic Encephalopathy, Limiting Fluids Dc, ED Low-Salt Diet Print Language: Danish Stand Alone Forms: [employer] Award Info., Patient Portal Info Letter Discharge Order Discharge Orders: Discharge (Routine); Ordered 06/29/24 Ordered By: Pino Ballesteros Quality Discharge Quality Measures VTE prophylaxis Attestestation MD Attestation I have examined the patient, reviewed labs and imaging findings, discussed the case with the resident(s), and reviewed entered orders. I agree with the plan of care as outlined in this note. Time Spent: [address] Seymour MD
--- NOTE | 2024-06-30 11:20 | PC.CC ---
Addendum entered by Marci Meza RN 06/30/24 15:10: HH [facility] existing patient of theirs. They will continue care. [facility] notified patient discharged 5-16. Original Note: 10:[address] Ballesteros waiting on HH order
--- NOTE | 2024-07-02 07:05 | PC.CC ---
PAL for Seva is 07/03
== END 2024-06-29 14:45 | disposition home health service (06) | DRG 280 ==
LOC: SERX 17:19 → SERHOLD 18:39 → S2NX 22:33
PROVIDERS: Nurse Practitioner Family; Student in an Organized Health Care Education/Training Program; Admitting Provider Student in an Organized Health Care Education/Training Program; Emergency Provider Family Medicine; PCP Student in an Organized Health Care Education/Training Program; Visit Provider Student in an Organized Health Care Education/Training Program
DX: K76.82 Hepatic encephalopathy (principal); N17.9 Acute kidney failure, unspecified; K70.30 Alcoholic cirrhosis of liver without ascites; I95.9 Hypotension, unspecified; D69.59 Other secondary thrombocytopenia; D68.4 Acquired coagulation factor deficiency; D69.6 Thrombocytopenia, unspecified; E83.52 Hypercalcemia; E87.0 Hyperosmolality and hypernatremia; E87.20 Acidosis, unspecified; D70.9 Neutropenia, unspecified; K72.10 Chronic hepatic failure without coma; B96.20 Unspecified Escherichia coli [E. coli] as the cause of diseases classified elsewhere; K76.7 Hepatorenal syndrome; D64.9 Anemia, unspecified; N39.0 Urinary tract infection, site not specified; Z79.899 Other long term (current) drug therapy; Z56.0 Unemployment, unspecified; Z16.12 Extended spectrum beta lactamase (ESBL) resistance; Z78.9 Other specified health status
CPT/HCPCS: 36415; 70450; 71045; 76700; 80053; 80061; 80307; 81001; 81025; 82140; 82270; 82525; 82607; 82746; 83605; 83690; 83735; 84100; 84443; 84484; 85025; 85610; 85730; 86850; 86900; 86901; 87077; 87081; 87086; 87186; 93005; 96374; 99285; J2470; J3430; J7040; J7050; P9047; A9270

== ENCOUNTER 2024-07-05 10:36 | Outpatient (AMB) | payer MEDICAID, SELFPAY ==
[2024-07-05 10:38] VITALS: BP 121/85; PULSE 58; RESP 18; TEMP 36.6; O2SAT 98; BMI 29.2
--- NOTE | 2024-07-05 10:38 | PD.RESCLINIC ---
Vital Signs 07/05/24 10:38 Height 1.5 m Height Method Stated Weight 65.771 kg Weight Measurement Method Standing Scale BMI 29.2 BP 121/85 H Blood Pressure Source Automatic Cuff Blood Pressure Location Right Upper Arm Position Sitting Respiration 18 Pulse 58 L Pulse Source Monitor Temp 97.8 F Temp Source Temporal Artery Scan Pulse Oximetry (%) 98 Oxygen Delivery Method Room Air Allergies/Meds Allergies & Medications Allergies latex Allergy (Severe, Verified 07/06/24 14:31) Hives Medication Reconciliation rifaximin 550 mg tablet (Xifaxan) 550 mg PO BID 01/12/24 [History Confirmed 07/06/24] ergocalciferol (vitamin D2) 1,250 mcg (50,000 unit) capsule (Vitamin D2) 1,250 mcg PO QWEEK 02/06/24 [History Confirmed 07/06/24] methocarbamol 750 mg tablet 750 mg PO BID 02/06/24 [History Confirmed 07/06/24] furosemide 20 mg tablet (Lasix) 20 mg PO QDAY #90 tabs 04/16/24 [Rx Confirmed 07/06/24] Held on 06/29/24. Instructions: Hold until you see PCP multivitamin 1 tab PO QDAY 05/11/24 [History Confirmed 07/06/24] pantoprazole 40 mg tablet,delayed release (Protonix) 40 mg PO BID #30 tabs 06/03/24 [Rx Confirmed 07/06/24] spironolactone 25 mg tablet 50 mg (2 x 25 mg) PO QDAY #30 tabs 06/08/24 [Rx Confirmed 07/06/24] Held on 06/29/24. Instructions: Hold until you see PCP hydrocodone 5 mg-acetaminophen 325 mg tablet 1 tab PO BID PRN pain 1 month #30 tabs 06/21/24 [Rx Confirmed 07/06/24] mirtazapine 15 mg tablet 15 mg PO HS 1 month #30 tabs 06/21/24 [Rx Confirmed 07/06/24] propranolol 10 mg tablet 10 mg PO BID 1 month #60 tabs 06/21/24 [Rx Confirmed 07/06/24] ferrous sulfate 300 mg (60 mg iron)/5 mL oral liquid 300 mg (5 mL) PO Q OTHER DAY 1 month #75 mL 06/29/24 [Rx Confirmed 07/06/24] lactulose 10 gram/15 mL oral solution 20 g (30 mL) PO TID Titrate to achieve 2-3 bowel movements a day 1 month #2,700 mL 06/29/24 [Rx Confirmed 07/06/24] midodrine 10 mg tablet 10 mg PO TID PRN Blood pressure <100 1 month #60 tabs 06/29/24 [Rx Confirmed 07/06/24] MA Intake Visit Data Collection New Patient or Established: Established Patient (seen at [facility] within 3 years) Seen by Clinical Staff ONLY (RN/MA): No Pain Present Currently: No Pain scale:: 0 Pain Scale Used: [place]-Nash/Numerical [employer] Furnace Tender Required: No PCP or OBGYN visit in last 3 months: Yes Hx Now: No Do You Feel Safe at Home: Yes Authorities Contacted: N/A Smoking Status Smoking Status: Unknown if ever smoked Immunization / Flu Flu Vaccine in the Last 12 Months: No Flu Vaccine Exclusion Criteria: No Exclusion Criteria Past Medical History Past Medical History NEUROLOGIC: Positive Neurological Disorders, Migraine and Spinal Cord Injury; Negative Seizures CARDIAC: Positive Cardiac Disorders and Hypotension; Negative Congestive Heart Failure RESPIRATORY: Negative Chronic Obstructive Pulmonary Disease (COPD) or Asthma GASTROINTESTINAL: Positive Gastrointestinal Disorders, Cirrhosis, Gastrointestinal Bleed, Esophageal Varices and Hemorrhoids GENITOURINARY: Negative Renal Disease REPRODUCTIVE: Positive Endometriosis and Previous Pregnancies ENDOCRINE: Positive Endocrine Disorders and Diabetes Mellitus Type 2; Negative Diabetes Mellitus Type 1 HEMATOLOGIC: Positive Blood Disorders and Anemia; Negative Sickle Cell Disease PSYCHO/SOCIAL: Positive Depression and Anxiety OTHER HISTORY: Positive Blood Transfusions, Chicken Pox and Measles; Negative Autoimmune Disease, Blood Transfusion Reaction, Anesthesia Reactions or Cancer Family History FAMILY HISTORY: Positive Family Psychiatric Problems and Family Cancer; Negative Family Respiratory Disorders, Family Cardiac Disorders, Family Gastrointestinal Problems, Family Surgery or Family Anesthesia Reaction Surgical History SURGICAL: Positive Section Social History SMOKING STATUS: Smoking status: Unknown if ever smoked SECOND HAND EXPOSURE: second hand exposure: No ALCOHOL: Alcohol Intake: Former ALCOHOL FREQUENCY: Alcohol Intake Frequency: 3 or More Drinks per Day HOUSING: Housing: House LIVES WITH: Lives With: Family Patient Erich Thomas Social History Living Situation History Housing: House Housing Other:: Pt lives with mom and kids Tobacco History Smoking Status: Unknown if ever smoked Second Hand Smoke Exposure: No Alcohol History Alcohol Intake: Former Alcohol Intake Frequency: 3 or More Drinks per Day Alcohol Intake Frequency Other:: 5 drinks a day Domestic Abuse History Do You Feel Safe at Home: Yes Review of Systems Report any current symptoms Only answer those that you have currently: Past Medical History Past Medical History Have you ever been diagnosed with any of the following: Neurological Problems Seizures: No Migraine: Yes Spinal Cord Injury: Yes Cardiology Problems Congestive Heart Failure: No Hypotension: Yes Respiratory Problems Chronic Obstructive Pulmonary Disease (COPD): No Asthma: No Stomache/Intestinal Problems Cirrhosis: Yes Gastrointestinal Bleed: Yes Esophageal Varices: Yes Hemorrhoids: Yes Genital/Urinary Problems Renal Disease: No Reproductive Problems Endometriosis: Yes Previous Pregnancies: Yes Endocrine Problems Diabetes Mellitus Type 1: No Diabetes Mellitus Type 2: Yes Blood Problems Anemia: Yes Sickle Cell Disease: No Psychologic Problems Depression: Yes Anxiety: Yes Other Problems Autoimmune Disease: No Blood Transfusions: Yes Blood Transfusion Reaction: No Anesthesia Reactions: No Chicken Pox: Yes Measles: Yes Cancer: No History of Present Illness HPI Narrative 06/21/2024: Elzbieta Knight is a 53 y/o female with recurrent hepatic encephalopathy 2/2 cirrhosis who comes in for a hospital follow up. She reports that she has been titrating her lactulose. She also says she is still trying to see her liver transplant specialist. She is requesting for pain medicine refill. She does say that she has been taking her propanolol as well. No other complaints at this time. 07/05/2024: Leandra Knight is a 53-year-old female with recurrent hepatic encephalopathy secondary to cirrhosis who comes for hospital follow-up. Patient want to confirm some dosages including lactulose in which she is taking 20 g 3 times a day and is titrating up to 2-3 bowel movements a day. She also finished her Macrobid dose for her UTI. She is wondering about further management of ingrown toenail. She has been taking her medicines as prescribed including her propranolol Lasix and lactulose. It was reaffirmed with her to continue taking her medicines as prescribed and to continue to follow-up with her liver transplant team. No other complaints at this time Review of Systems Review of Systems Narrative Review of Systems: Constitutional: No fever, chills, fatigue, weakness, weight loss HEENT: No eye pain, vision loss, ear pain, hearing loss, dysphagia, Cardiovascular: No chest pain, palpitations, edema, pain with walking Respiratory: No cough, shortness of breath, wheezing GI: No NVD, abdominal pain, constipation, blood in stool, loss of appetite, heartburn Extremities: No presence of pitting edema MSK: No back pain, joint pain, joint swelling Neuro: No dizziness, numbness, weakness, headaches, seizures, tremors Psych: No anxiety, depression Objective/Exam Narrative Physical exam: General: AAOx3, NAD, appears to be frail, sitting in her wheelchair, wearing glasses HEENT: Moist mucous membranes, conjunctiva clear, EOMI, PERRLA, some scleral icterus bilat Cardiovascular: S1, S2, radial pulses +2 bilat, RRR Pulmonary: CTAB bilat no cough, no wheezing GI: No tenderness to light or deep palpitation, no guarding, rigidity, rebound tenderness or distension Extremities: No presence of trace or pitting edema in lower extremities bilaterally, dorsalis pedis pulses +2 bilaterally Skin: Some jaundice present throughout body Neuro: AAOx3, no focal motor or sensory deficits in the UE or LE bilat Psych: Good judgement, thought and behavior Assessment & Plan Diagnosis / Problem List (1) Cirrhosis: Status: Acute Qualifiers: Ascites presence: without ascites Hepatic cirrhosis type: alcoholic cirrhosis Qualified Code(s): K70.30 - Alcoholic cirrhosis of liver without ascites Assessment & Plan: Pt is currently on liver transplant list She has recurrent visits to ED for Acute decompensated liver disease She will need to continue titrating her lactulose for up to 2-3 bowel movements or up to 80 g in one day Spironolactone at this time, will need renal panels to monitor potassium levels Plan: 1. Lactulose 20 g TID, up to 120 g in one day 2. Midodrine 10 mg 3 times daily as needed for SBP below 100 3. Continue with Propanolol 10 mg BID, hold if HR is below 55 4. Spironolactone 50 mg daily 5. Lasix 20 mg every day hold if SBP below 100 or diastolic blood pressure below 60 (2) Ingrown toenail of right foot: Status: Acute Assessment & Plan: Chronic Plan: Podiatry referral (3) Asymptomatic bradycardia: Status: Acute Assessment & Plan: Heart rate 58 today, within goal range of 55-60 cirrhosis Plan: 1. Propanolol 10 mg BID, hold if HR if below 55 Orders: Referrals Podiatry L60.0 - Ingrowing nail Office Procedures [facility] Level of Care Nursing/Assessment Patient Status: Established Patient Nursing Assessment/Reassessment: Medication Reconciliation, Update PMH in EMR and Vital Signs Coordination of Care: Complex Care and Chronic Disease 1-5, Consent,records obtained, informed consent, Education Simp Pt/Fam and Staff clarify orders Established Patient Charge Established Patient Point Assignment: 85 Established Patient Point Charge: EP Level 3 (80-115)
== END 2024-07-05 11:32 | disposition home or self-care (01) ==
LOC: HODAHC 10:36
PROVIDERS: Supervising Provider Internal Medicine
DX: L60.0 Ingrowing nail (principal); K70.30 Alcoholic cirrhosis of liver without ascites; R00.1 Bradycardia, unspecified
CPT/HCPCS: 99213; G0463

== ENCOUNTER 2024-07-16 09:22 | Inpatient (IN) | payer MEDICAID, SELFPAY ==
[2024-07-16] VITALS (8 sets, daily range): BP systolic 97–115; BP diastolic 57–88; PULSE 51–69; RESP 13–20; TEMP 36.1–36.6; O2SAT 97–100
--- NOTE | 2024-07-16 09:28 | XR_ITS ---
Examination: CT brain head without contrast. 2-D sagittal coronal reconstructions Date and time of exam:July 16, 2024 1410 hours Comparison June 25, 2024 INDICATIONS: Patient unresponsive today CTDI: vol (mGy):48.5 DLP: (mGycm):988 Technique: Multiple CT axial sections of the brain have been obtained, 5 mm slice thickness. Contrast has not been administered. 2-D sagittal, coronal reconstructions have been obtained Low dose protocols were performed. One or more of the following dose reduction techniques were used; automated exposure control, adjustment of the mA and/or KV according to patient size, use of iterative reconstruction technique. Findings: No significant ventricular enlargement. Intra-axial or extra-axial hemorrhage density is not seen. No mass effect or midline shift Basal cisterns are not remarkable. Fourth ventricle is midline. Cranial vault intact. Impression: Negative for acute hemorrhage, mass effect or midline shift As clinically warranted, brain MRI follow-up would best assess for anoxic ischemic change
--- NOTE | 2024-07-16 09:28 | EKG_ITS ---
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
--- NOTE | 2024-07-16 09:28 | EDNOTE_ITS ---
Altered Mental Status RME/HPI General Chief Complaint: Altered Mental Status Stated Complaint: UNRESPONSIVE Time Seen by Provider: 07/16/24 09:26 Arrival date/time: 07/16/24 09:22 RME / HPI RME / HPI narrative: 53 year old female with history of end stage liver disease secondary alcohol use disorder, esophageal varices s/p banding, GI bleed, multiple admissions for hepatic encephalopathy presents to the ED BIBA from home for altered mental status today. Per medics, family on scene reported they spoke with patient at 8PM and again at midnight. However, mentioned that at midnight the patient was doing her makeup for unknown reason. This morning found patient unresponsive. Per medics, on scene patient was only responsive to pain. Prehospital BS 170, HR 55, blood pressure 98/68. No narcan given. On arrival to ED, patient unable to provide any additional history due to mental status. Related Data Home Medications ?Medication ?Instructions ?Recorded ?Confirmed ergocalciferol (vitamin D2) 1,250 1,250 mcg PO QWEEK 1 04/08/23 07/06/24 mcg (50,000 unit) capsule (Vitamin D2) methocarbamol 750 mg tablet 750 mg PO BID 02/06/24 Previous Rx's ?Medication ?Instructions ?Recorded furosemide 20 mg tablet (Lasix) 20 mg PO QDAY #90 tabs 04/16/24 Held on 06/29/24. Instructions: Hold until you see PCP pantoprazole 40 mg tablet,delayed 40 mg PO BID #30 tab s 06/03/24 release (Protonix) hydrocodone 5 mg-acetaminophen 325 1 tab PO BID PRN pa in 1 month #30 06/21/24 mg tablet tabs mirtazapine 15 mg tablet 15 mg PO HS 1 month #30 tabs 06/21/24 propranolol 10 mg tablet 10 mg PO BID 1 month #60 tab s 06/21/24 ferrous sulfate 300 mg (60 mg 300 mg (5 mL) PO Q OTHER DAY 1 06/29/24 iron)/5 mL oral liquid month #75 mL lactulose 10 gram/15 mL oral 20 g (30 mL) PO TID Titra te to 06/29/24 solution achieve 2-3 bowel movements a day 1 month #2,700 mL midodrine 10 mg tablet 10 mg PO TID PRN Blood press ure 06/29/24 <100 1 month #60 tabs multivitamin 1 tab PO QDAY 1 month #30 ta bs 07/10/24 rifaximin 550 mg tablet (Xifaxan) 550 mg PO BID 1 meredith h #60 tabs 07/10/24 spironolactone 25 mg tablet 50 mg (2 x 25 mg) PO QDAY 1 month 07/10/24 #60 tabs blood sugar diagnostic (Accu-Chek #100 ea 07/12/24 Idania Plus test strips) lancets 28 gauge (Acti-Petar #100 ea 07/12/24 Lancets) Allergies Allergy/AdvReac Type Severity Reaction Status Date / Time latex Allergy Severe Hives Verified 07/16/24 09:48 Review of Systems Review of Systems ROS Unobtainable: unobtainable due to mental status Past Medical History Past Medical History NEUROLOGIC: Positive Neurological Disorders, Migraine and Spinal Cord Injury CARDIAC: Positive Cardiac Disorders and Hypotension GASTROINTESTINAL: Positive Gastrointestinal Disorders, Cirrhosis, Gastrointestinal Bleed, Esophageal Varices and Hemorrhoids REPRODUCTIVE: Positive Endometriosis and Previous Pregnancies MUSCULOSKELETAL: Positive Musculoskeletal Disorders ENDOCRINE: Positive Endocrine Disorders and Diabetes Mellitus Type 2 HEMATOLOGIC: Positive Blood Disorders and Anemia PSYCHO/SOCIAL: Positive Depression and Anxiety OTHER HISTORY: Positive Chicken Pox and Measles Family History FAMILY HISTORY: Positive Family Psychiatric Problems and Family Cancer Surgical History SURGICAL: Positive Section Social History SMOKING STATUS: Unknown if ever smoked SECOND HAND EXPOSURE: No SUBSTANCE USE: marijuana ED Exam Narrative Physical exam: GENERAL APPEARANCE: Lethargic but does respond to painful stimuli, jaundice, nonverbal HEENT: NC, AT. MMM. EOMI, oropharynx clear. NECK: Supple. No stiffness or restricted ROM. HEART: Normal rate and regular rhythm, normal S1/S1, no m/r/g LUNGS: CTAB, moving air well. No crackles or wheezes are heard. ABDOMEN: Soft, nontender, nondistended with good bowel sounds heard. BACK: No midline C/T/L spine pain or deformity, No CVAT, no obvious deformity. EXTREMITIES: Without cyanosis, clubbing or edema. NEUROLOGICAL: Lethargic but does respond to painful stimuli, nonverbal, no asterixis. Skin: Jaundice. Warm and dry without any rash. Course Quality Measures none Orders Category Date Time Status Bedside Blood Glucose NOW Care 07/16/24 09:28 Active EKG (ED ONLY) *Do not use* NOW Care 07/16/24 09:28 Completed Liz to [place] Routine Care 07/16/24 09:[address] head/brain wo con Stat Exams 07/16/24 09:28 Completed EKG (ED Only) Stat Exams 07/16/24 09:28 Draft XR chest 1V Stat Exams 07/16/24 09:28 Completed Alcohol, Blood Medical Stat Lab 07/16/24 09:39 Completed Ammonia Stat Lab 07/16/24 09:39 Completed CBC Stat Lab 07/16/24 09:39 Completed CMP [Comprehensive Metabolic Panel] Stat Lab 07/16/24 09:39 Completed Drug Screen,Urine Stat Lab 07/16/24 11:07 Completed Lactate (Lactic Acid) Stat Lab 07/16/24 09:39 Completed Lactic Acid, 3 HR Stat Lab 07/16/24 13:03 Completed Lipase Stat Lab 07/16/24 09:39 Completed Partial Thromboplastin Time Stat Lab 07/16/24 09:39 Completed Prothrombin Time with INR Stat Lab 07/16/24 09:39 Completed Troponin I Stat Lab 07/16/24 09:39 Completed Urinalysis Stat Lab 07/16/24 11:07 Completed Lactulose Syrup [Enulose Syrup] Med 07/16/24 10:26 Discontinued 30 gm PA X1 ONE NALOXONE INJ (Syringe) [Narcan Inj (Syringe)] Med 07/16/24 09:52 Discontinued 0.4 mg IV X1 ONE Sodium Chloride 0.9% 1000 ml [Ns] 1,000 ml Med 07/16/24 09:26 Discontinued IV 999 mls/hr Vital Signs Vital signs: Vital Signs Temperature 97.7 F 07/16/24 09:24 Pulse Rate 51 L 07/16/24 09:24 Respiratory Rate 20 07/16/24 09:24 Blood Pressure 97/64 07/16/24 09:24 Pulse Oximetry (%) 100 07/16/24 09:24 Oxygen Delivery Method Room Air 07/16/24 09:24 Pulse ox is 100% on room air which is adequate. Altered Mental Status MDM Narrative MDM Narrative:: Sabrina Slade am scribing for and in the presence of Dr. Givens. Patient data External records reviewed:: [facility] previous records (I reviewed admission from 06/25/2024 through 06/29/2024 for hepatic encephalopathy, treated initially with lactulose enemas via rectal tube and once mentation improved was switched to po Lactulose ) and EMS form Clinical information provided by:: EMS Social determinants that could affect healthcare access:: alcohol use (hx of ) Patient has the following chronic illnesses:: end stage liver disease secondary alcohol use disorder, esophageal varices s/p banding, GI bleed, multiple admissions for hepatic encephalopathy How is presenting disease/condition affected by chronic disease/condition?: exacerbated by Evaluation data The following diagnostics were reviewed and interpreted by me:: lab results, radiology exam(s) and EKG tracing(s) (EKG 07/16/2024 @ 09:40 AM. Sinus bradycardia, rate 50, no STEMI. ) Lab and/or radiology exams considered but not ordered:: None Interpretation Summary: Ordering Physician: Faisal Givens MD Date of Service: 07/16/24 Procedure(s): XR chest 1V Accession Number(s): [id number] cc: Faisal Givens MD; Aiden Drew MD; NO PRIMARY/FAMILY,PHYSICIAN~ Examination: AP chest single view Technique one AP portable semiupright chest single view Date and time: July 16, 2024 0952 hours INDICATIONS: Altered mental status today. FINDINGS: Reduced inspiratory effort. Mild prominence left ventricle. No aspiration pneumonia IMPRESSION: No aspiration pneumonia Dictated By:Aiden Drew MD Signed By:<Electronically signed by Aiden Drew MD in OV>07/16/24 1051 Medications / Prescriptions Medications or Prescriptions considered but not ordered:: None Medication administrations:: Medication Administration History Discontinued Medications Sodium Chloride (Ns) 1,000 mls @ 999 mls/hr IV .Q1H1M ONE Stop: 07/16/24 10:26 Last Infusion: 07/16/24 11:05 Dose: Infused Documented By: Admin: 07/16/24 10:04 Dose: 999 mls/hr Documented By: TM Lactulose (Lactulose Syrup 20 Gm/30 Ml Udc) 30 gm PA X1 ONE; Protocol Stop: 07/16/24 10:27 Last Admin: 07/16/24 10:49 Dose: 30 gm Documented By: TM Naloxone HCl (Naloxone Inj 1 Mg/Ml Syringe 2 Ml) 0.4 mg IV X1 ONE Stop: 07/16/24 09:53 Last Admin: 07/16/24 10:04 Dose: 0.4 mg Documented By: TM See above Consultations Consultation(s) initiated? (list below): Yes Consultation #1 (Physician, Specialty, Details): I spoke with resident Dr. Richards working with Dr. Glover. Discussed patients PMHx, HPI, ED course, exam findings, labs, and radiology results. The hospitalist agree to accept the patient for admission. Time: 14:30 Diagnosis Most likely diagnosis given after review of the tests above:: Hepatic encephalopathy Cirrhosis AMS Admission Indicated Admission indicated?: indicated Admission Request Was there a request for admission?: Yes Admission Attestation Admission request attestation: Discussed case with [] from Hospitalist service regarding admission. Discussed patients ED course, exam findings, labs, and radiology results. The Hospitalist [agrees,declines] to accept the patient for admission. Disposition Plan Disposition Plan: Admit Critical Care Time Critical Care Time Critical Care Time: Yes Total Critical Care Time (min.): 35 Attestation: The high probability of sudden, clinically significant deterioration in the patient's condition required the highest level of my preparedness to intervene urgently. The services I provided to this patient were to treat and/or prevent clinically significant deterioration. Services included the following: chart data review, reviewing nursing notes and/or old charts, documentation time, ent consultant collaboration regarding findings and treatment options, medication orders and management, direct patient care, vital sign assessments and ordering, interpreting and reviewing diagnostic studies and lab tests. Aggregate critical care time includes only time during which I was engaged in work directly related to the patient's care, as described above, whether at bedside or elsewhere in the Emergency Department. It did not include time spent performing other reported procedures or the services of residents, students, nurses or physician assistants. Discharge Plan Plan Patient Disposition: Admit Acute Care w/in Hospital Prescriptions/Referrals Prescriptions/Med Rec: No Action mirtazapine 15 mg tablet 15 mg PO HS 30 Days Qty: 30 2RF Rx Instructions: Take one tablet before bedtime everyday propranolol 10 mg tablet 10 mg PO BID 30 Days Qty: 60 2RF Rx Instructions: Take one tablet by mouth twice a day hydrocodone-acetaminophen 5-325 mg tablet 1 tab PO BID MDD 2 Tablets PRN (Reason: pain) 30 Days Qty: 30 0RF Rx Instructions: Take one tablet as needed twice a day for pain Xifaxan 550 mg tablet 550 mg PO BID 30 Days Qty: 60 2RF Rx Instructions: Take one tablet by mouth twice a day multivitamin Tablet 1 tab PO QDAY 30 Days Qty: 30 2RF Rx Instructions: Take one tablet by mouth every day spironolactone 25 mg tablet 50 mg PO QDAY MDD 50 mg 30 Days Qty: 60 2RF Rx Instructions: Take two tablets by mouth once a day (DME) Accu-Chek Idania Plus test strp Strip See Rx Instructions .Route Qty: 100 2RF Rx Instructions: As directed (DME) lancets [Acti-Petar Lancets] 28 gauge misc See Rx Instructions .Route Qty: 100 2RF Rx Instructions: As directed methocarbamol 750 mg Tablet 750 mg PO BID ergocalciferol (vitamin D2) [Vitamin D2] 1,250 mcg (50,000 unit) Capsule 1,250 mcg PO QWEEK midodrine 10 mg tablet 10 mg PO TID PRN (Reason: Blood pressure <100) 30 Days Qty: 60 0RF Rx Instructions: do not give last dose of day after 6PM or within 4 hrs of bedtime lactulose 10 gram/15 mL solution 20 g PO TID MDD 180 ml 30 Days Qty: 2700 0RF ferrous sulfate 300 mg (60 mg iron)/5 mL liquid 300 mg PO Q OTHER DAY 30 Days Qty: 75 0RF furosemide [Lasix] 20 mg tablet 20 mg PO QDAY Qty: 90 0RF Rx Instructions: Hold if SBP drops below 100 and DBP below 60 mmHg pantoprazole [Protonix] 40 mg tablet,delayed release (DR/EC) 40 mg PO BID Qty: 30 0RF Referrals: No Primary/Family,Physician [Primary Care Provider] - In 1 week Problem List Clinical Impression: Hepatic encephalopathy, Cirrhosis, AMS (altered mental status) Patient/Caregiver Discharge Instructions Print Language: Tunisian Stand Alone Forms: [facility] Award Info., Patient Portal Info Letter
[2024-07-16 09:50] LABS: Lactate (Lactic Acid) 2.2 mMol/L (0.4-2.0)
[2024-07-16 09:55] LABS: Basophils % (Auto) 0 % (0-2.5); Eosinophils # (Auto) 0.1 Thou/mm3 (0.0-0.5); Eosinophils % (Auto) 5 % (0-10); Hematocrit 29.6 % (36.0-46.0); Hemoglobin 10.3 g/dL (12.0-16.0); Immature Granulocytes % (Auto) 0 % (0-0); Lymphocytes # (Auto) 1.1 Thou/mm3 (1.0-4.8); Lymphocytes % (Auto) 35 % (10-50); Mean Corpuscular HGB Conc 34.8 g/dl (31.0-37.0); Mean Corpuscular Hemoglobin 35.5 pg (25.0-35.0); Mean Corpuscular Volume 102 fL (80-100); Monocytes # (Auto) 0.2 Thou/mm3 (0.0-0.8); Monocytes % (Auto) 6 % (0-12); Neutrophils # (Auto) 1.6 Thou/mm3 (1.8-7.7); Neutrophils % (Auto) 54 % (37-80); Nucleated Red Blood Cell % 0 /100 WBC (0); RDW Standard Deviation 65.1 fL (36.4-46.3)
[2024-07-16] MEDS: NALOXONE INJ 1 MG/ML SYRINGE 2 ML 0.4 MG IV (10:04)
[2024-07-16] MEDS: SODIUM CHLORIDE 0.9% 1000 ML 1,000 ML 999 ML IV (10:04)
[2024-07-16 10:11] LABS: INR 1.9 (0.9-1.3); Partial Thromboplastin Time 48.7 Seconds (22.0-36.0); Prothrombin Time 19.5 Seconds (9.0-12.2)
--- NOTE | 2024-07-16 10:12 | PC.NURSE ---
PT BIBA FROM HOME, PER FAMILY LKW WAS BETWEEN 8PM AND [address] SOTO SAID NO CODE STROKE PT RESPONDS TO PAINFUL STIMULI UPON ASSUMPTION OF CARE, SINUS GREGORIO ON TELE, SOFT BP. PT ARRIVES WITH BRIGHT PINK LIPSTICK ALL OVER HER FACE, BRUISING TO ALL 4 EXTREMITIES. PT REMAINS CONNECTED TO TELE, FLUIDS INFUSING WILL CONT W/POC.
[2024-07-16 10:18] LABS: Alanine Aminotransferase 22 U/L (10-49); Albumin, Serum 3.7 gm/dL (3.5-5.0); Albumin/Globulin Ratio 1.2 (1.2-2.2); Alcohol, Blood Medical < 3.0 mg/dL (0-10.0); Alkaline Phosphatase 129 U/L (46-116); Anion Gap 9 (7-16); Aspartate Amino Transferase 48 U/L (0-34); BUN/Creatinine Ratio 14 Ratio (12-20); Bilirubin,Total 4.9 mg/dL (0.3-1.2); Blood Urea Nitrogen 15 mg/dL (9-23); Calcium 8.6 mg/dL (8.3-10.6); Calcium (Corrected) 8.8 mg/dL (8.5-10.1); Carbon Dioxide 24.7 mMol/L (20.0-31.0); Chloride 108 mMol/L (98-107); Creatinine (Component) 1.1 mg/dL (0.6-1.3); Globulin 3.1 gm/dL (2.3-3.5); Glucose 166 mg/dL (74-106); Lipase 26 U/L (12-53); Osmolality,Calculated 287 (275-295); Potassium 5.2 mMol/L (3.4-5.1); Sodium 142 mMol/L (136-145); Total Protein 6.8 gm/dL (5.7-8.2); Troponin I < 0.020 ng/mL (0.0-0.045); eGFR > 60 See Note
[2024-07-16 10:20] LABS: Ammonia 248 uMol/L (11-32)
[2024-07-16 10:32] LABS: Platelet Count 41 Thou/mm3 (140-440)
[2024-07-16] MEDS: LACTULOSE SYRUP 20 GM/30 ML UDC 30 GM PR (10:49)
[2024-07-16 10:55] LABS: Slide Review Platelets confirmed
[2024-07-16 11:13] LABS: Collection Type, Urine Clean Catch; Squamous Epithelial Cell,Urine 0 /hpf (0-5)
[2024-07-16 11:29] LABS: Bacteria,Urine 1+; Bilirubin,Urine Negative (Negative); Blood,Urine Negative (Negative); Clarity,Urine Clear (Clear/Hazy); Color,Urine Yellow (Lt Yel-Yel); Glucose, Urine Negative (Negative); Ketones,Urine Negative (Negative); Leukocyte Esterase,Urine Negative (Negative); Nitrite,Urine Negative (Negative); PH,Urine 6.5 (5.0-7.0); Protein,Urine Negative (Neg - Trace); RBC,Urine 3 /hpf (0-3); Specific Gravity,Urine 1.024 (1.001-1.035); Urobilinogen,Urine Negative mg/dL (0.0-1.0); WBC,Urine 3 /hpf (0-5)
[2024-07-16 11:36] LABS: Amphetamine/Methamp Scrn,U Negative (Negative); Barbiturate Screen,Urine Negative (Negative); Benzodiazepines Screen,Urine Negative (Negative); Benzoylecgonine Screen, Ur Negative (Negative); Fentanyl Screen,Urine Negative (Negative); Opiate Screen,Urine Positive (Negative); THC Screen,Urine Negative (Negative)
[2024-07-16 12:47] LABS: Reflex Lactate? Y
[2024-07-16 13:17] LABS: Lactic Acid, 3 HR 2.8 mMol/L (0.4-2.0)
--- NOTE | 2024-07-16 16:05 | ESHP_ITS ---
<Statement entered by Ricardo Richards MD - 07/17/24 07:25> I discussed with and supervised the regulatory affairs internship physician involved in the care of this patient. Patient assessment and plan was discussed with entire medicine team, including my attending. I agree with the assessment and plan as documented by regulatory affairs internship doctor. Patient care was discussed with my attending physician Dr. Adalberto Richards, PGY-2 Documentation for date of: 07/16/24 HPI History of Present Illness History of present illness: This is a 51-year-old female with PMHx of liver cirrhosis, variceal bleed s/p banding with recurrent admissions for hepatic encephalopathy, presenting with acute altered mental status that started the morning of admission. On evaluation, she is significant altered, responsive to sternal rub and noxious stimuli only. History was obtained from mother at bedside. She was last seen normal the night prior to admission, and appears to be at baseline with normal mentation and sensorium. This morning, she was found difficult to arouse despite several attempts, prompting admission to the hospital. Per mother, there is no reported fall, trauma fever, chills, syncope, presyncope, dizziness, lightheadedness, chest pain, shortness of breath, GI or urinary symptoms. She has been taking her medications as prescribed which are usually given by her mother. Mother does not suspect drug/medication overdose, or intoxication including alcohol or marijuana or or illicit drugs. ED COURSE: * Afebrile, BP 97/64, HR 51, RR 20, satting 100% on room air. * CBC at baseline with WBC 3.0, Hgb 10.3, PLT 41. * PT 19.5, INR 1.9, PTT 48.7. * CHEM panel significant for ammonia 248, potassium 5.2, lactic acid 2.8, TB 4.9, AST 48, ALT 22, ALP 129, GLUCOSE 166. * Creatinine 1.1, BUN 15, and troponin were negative. * Head CT was negative for acute pathology. * CXR showed no aspiration pneumonia. * EKG shows sinus bradycardia with short IL interval and nonspecific T wave abnormalities. ED started LACTULOSE syrup and gave 1 L SODIUM CHLORIDE. Patient admitted under hospitalist service for acute encephalopathy. PMHx: Cirrhosis, variceal bleed, recurrent episodes of hepatic encephalopathy PSHx: Appendectomy, 2 , 2 laparoscopic procedures for endometriosis MEDS: LACTULOSE 20 mg TID, FUROSEMIDE 20 mg daily, SPIRONOLACTONE 50 mg daily, rifaximin 550 mg BID, PROPRANOLOL 10 mg BID, PANTOPRAZOLE 40 mg BID, MIDODRINE 10 mg TID, MIRTAZAPINE 15 mg HS, NORCO 5-325 mg BID PRN, FERROUS SULFATE 300 mg every other day, VITAMIN D 1250 mcg weekly. ALLERGIES: Latex allergy FHx: Nonsignificant. SHx: Stopped alcohol in 2023, denies smoking, other illicit drug abuse Exam Vital Signs Temp Pulse Resp BP Pulse Ox O2 Del Method 97.7 F 51 L 20 97/64 100 Room Air 07/16/24 09:24 07/16/24 09:24 07/16/24 09:24 07/16/24 09:24 07/16/24 09:24 07/16/24 09:24 Narrative Exam GENERAL * Obtunded, ANO x 0, response to noxious stimuli. HEENT * NCAT.?ROSELIA. Oral mucosa is moist. Patent Nares NECK * Supple, nontender, no thyromegaly, no meningismus, no JVD, no step offs CHEST * RRR, no m/g/r * CTAB, no w/r/r. Symmetrical chest rise. No intercostal subcostal retraction * Atraumatic, nontender, no crepitus, symmetrical expansion. ABDOMEN * Soft, flat, nontender. No guarding/rebound tenderness/masses. * Bowel sounds presents EXTREMITIES * No edema/cyanosis.? SKIN * Warm and dry, no jaundice/rashes. NEUROMUSCULAR * No lumbar or midline, no CVA, no paraspinal muscle spasm or tenderness. * Moves all 4 extremities well, with full ROM and good CSM. * CASAS x4, CN II-XII grossly intact. * No focal neurologic deficits. PSYCHIATRY * Normal mood and affect, cooperative, no SI or HI or hallucinations. Results: Labs 07/16/24 09:39 07/16/24 09:39 Labs: Short CBC 07/16/24 Range/Units 09:39 WBC 3.0 L (3.6-11.0) Thou/mm3 Hgb 10.3 L (12.0-16.0) g/dL Hct 29.6 L (36.0-46.0) % Plt Count 41 L D (140-440) Thou/mm3 BMP 07/16/24 09:39 Sodium 142 Potassium 5.2 H Chloride 108 H Carbon Dioxide 24.7 BUN 15 Creatinine 1.1 Glucose 166 H Calcium 8.6 Cardiac Enzymes 07/16/24 Range/Units 09:39 Troponin I < 0.020 (0.0-0.045) ng/mL Liver Function 07/16/24 Range/Units 09:39 Total Bilirubin 4.9 H (0.3-1.2) mg/dL AST 48 H (0-34) U/L ALT 22 (10-49) U/L Alkaline Phosphatase 129 H (46-116) U/L Albumin 3.7 (3.5-5.0) gm/dL Urine 07/16/24 Range/Units 11:07 Urine Color Yellow (Lt Yel-Yel) Urine Clarity Clear (Clear/Hazy) Urine pH 6.5 (5.0-7.0) Ur Specific [place] 1.024 (1.001-1.035) Urine Protein Negative (Neg - Trace) Urine Glucose (UA) Negative (Negative) Quality Measures Quality Measures none Medications Home Medications and Allergies Home Medications ?Medication ?Instructions ?Recorded ?Confirmed ?Type ergocalciferol (vitamin D2) 1,250 1,250 mcg PO QWEEK 1 04/08/23 07/06/24 History mcg (50,000 unit) capsule (Vitamin D2) methocarbamol 750 mg tablet 750 mg PO BID 02/06/24 History Allergies Allergy/AdvReac Type Severity Reaction Status Date / Time latex Allergy Severe Hives Verified 07/16/24 09:48 Visit Medications Dextrose (Dextrose 50%-Water Inj 50 Ml Syringe) 25 ml IV Q15MIN PRN PRN Reason: BG 50-70 responsive npo pt Stop: 08/15/24 16:02 Dextrose (Dextrose 50%-Water Inj 50 Ml Syringe) 50 ml IV Q15MIN PRN PRN Reason: BG <50 OR BG <70 & pt unresponsive Stop: 08/15/24 16:02 Furosemide (Furosemide Inj 10 Mg/Ml Vial 2 Ml) 10 mg IVP QDAY CELINA Stop: 08/15/24 15:59 Glucagon (Glucagon Inj 1 Mg Vial) 1 mg IM Q15MIN PRN PRN Reason: BG <70, and no IV access Insulin Human Lispro (Insulin Lispro (Admelog) 1 Unit/0.01 Ml Unit) 0 unit SC ACHS CELINA; Protocol Stop: 08/15/24 16:59 Lactulose (Lactulose Syrup 10 Gm/15 Ml) 300 gm IL TID CELINA; Protocol Stop: 08/15/24 21:59 Midodrine (Midodrine 5 Mg Tablet) 10 mg NG TID CELINA Stop: 08/15/24 21:59 Ondansetron HCl (Ondansetron Inj 2 Mg/Ml Inj 2 Ml) 4 mg IVP Q6H PRN; Protocol PRN Reason: NAUSEA OR VOMITING Stop: 08/15/24 15:30 Pantoprazole Sodium (Pantoprazole Inj 40 Mg Vial) 40 mg IVP BID CELINA Stop: 08/15/24 20:59 Propranolol HCl (Propranolol 10 Mg Tablet) 10 mg NG BID CELINA Stop: 08/15/24 20:59 Rifaximin (Rifaximin 550 Mg Tablet) 550 mg NG BID CELINA Stop: 07/23/24 20:59 Discontinued Medications Sodium Chloride (Ns) 1,000 mls @ 999 mls/hr IV .Q1H1M ONE Stop: 07/16/24 10:26 Last Infusion: 07/16/24 11:05 Dose: Infused Lactulose (Lactulose Syrup 20 Gm/30 Ml Udc) 30 gm IL X1 ONE; Protocol Stop: 07/16/24 10:27 Last Admin: 07/16/24 10:49 Dose: 30 gm Naloxone HCl (Naloxone Inj 1 Mg/Ml Syringe 2 Ml) 0.4 mg IV X1 ONE Stop: 07/16/24 09:53 Last Admin: 07/16/24 10:04 Dose: 0.4 mg Pantoprazole Sodium (Pantoprazole Inj 40 Mg Vial) 40 mg IVP QDAY CELINA Stop: 08/15/24 15:44 Spironolactone (Spironolactone 25 Mg Tablet) 50 mg NG X1 ONE Stop: 07/16/24 15:56 Assessment & Plan Plan This is a 51-year-old female with PMHx of liver cirrhosis, variceal bleed s/p banding with recurrent admissions for hepatic encephalopathy, presenting with acute altered mental status that started the morning of admission. Appreciate recommendations from nephrology team. Acute hepatic encephalopathy In setting of decompensated liver cirrhosis Presenting with acute AMS x 1 day, difficult to arouse, unresponsive. History of recurrent admission for similar symptoms and hepatic encephalopathy. She is taking her medications, given by her mother. Previously having 2-3 bowel movements daily, however she did not have a bowel movement yesterday. Mother denies concern for drug or medication overdose. On exam, she is obtunded, responsive to noxious stimuli only. Ammonia 248 (substantially higher than previous admissions). Head CT negative for acute pathology. Unable to assess for focal neurological deficits. Given obtunded status. No signs of edema or ascites on exam. MADDREY score 30.5 indicating poor prognosis, likely benefit from STEROID. MELD score 21 point indicating 19.6% mortality in next 3 months. ? NG tube and rectal tube ordered ? Continue rifaximin 550 mg BID ? Continue LACTULOSE 200 mg IL TID, will increase dose for goal of 2-3 BMs daily. ? Continue SPIRONOLACTONE 50 mg ? Continue LASIX 20 mg daily ? Continue PROPRANOLOL 10 mg BID ? Continue LR at 75 cc/H ? Nephrology consulted for possible HD ? Will consider STEROIDS if symptoms worsen or do not improve Lactic acidosis Type B in settings of liver failure Lactic acid 2.2 > 2.8, likely for hepatic clearance. Low suspicion for hypoxemia or sepsis, afebrile, no leukocytosis, satting well on room air. Received 1 L NS in ED ? Continue LR at 75 cc/80 ? Trending lactic acid Chronic bradycardia Hypertension Admission BP 97/64, HR 50, EKG showed sinus bradycardia. Bradycardia on most previous admission. Bradycardia likely 2/2 MIDODRINE or autonomic neuropathy in setting of advanced cirrhosis. Hypertension likely 2/2 advanced cirrhosis. ? Continue home MIDODRINE 10 mg TID ? Telemetry Mild Hyperkalemia Likely 2/2 diuresis. Potassium 5.2. ? Repeat AM labs, consider KAYEXALATE if persistent or worsening. Health maintenance Diet: NPO GI prophylaxis: PROTONIX DVT prophylaxis: SCDs Antibiotics: Not indicated CODE STATUS: Full code Disposition: Pending improvement of hepatic encephalopathy. Case was discussed with attending physician and senior resident. Soila Harris DO PGYI Attending Provider Attestation/Addendum After examination of the patient and review of the clinical data I feel that this patient needs admission to the hospital for further treatment/evaluation. I have discussed and was present for the essential components of the history, physical examination, diagnosis, and treatment plan with the resident. I agree with the patient's care as documented by the resident and amended herein by me. Dickson Glover DO. Patient seen and evaluated in the ED, in short, patient is a 53-year-old female with a significant past medical history of liver cirrhosis secondary to alcohol use, history of varices status post banding, recurrent hospitalizations for decompensated liver cirrhosis, subsequently presented to the ED for acute encephalopathy, patient subsequently admitted for hepatic encephalopathy. In the ED, blood pressure soft 97/64 mmHg, SpO2 100% on room air. Significant labs demonstrating pancytopenia with a WBC of 3, hemoglobin 10.3, platelet count 41, INR 1.9, lactic acid 2.8, sodium WNL, potassium 5.2, chloride 108. UDS significant for opiates, ammonia on arrival to 48, chest x-ray and CT head unremarkable. EKG demonstrating sinus bradycardia. MELD score 21, Madrey discriminant function 41.7 both indicating poor prognosis. Patient admitted to acute telemetry for hepatic encephalopathy, and OG tube has been ordered, following will begin lactulose and rifaximin. Nephrology is also been consulted for possible need for emergent dialysis considering ammonia levels. Patient will also be started on Lasix and spironolactone. May consider steroids, will continue to monitor closely Although this document has been carefully reviewed, there may still be some phonetic and other typographical errors. These errors are purely grammatical due to imperfections in the software program and should not be construed in any way to compromise the substance of the patient's medical care during this visit
--- NOTE | 2024-07-16 16:22 | PC.CC ---
TIFFANIE Marie attempted to complete a face to face initial assessment with the pt at bedside ER #2, but she was sleeping. TIFFANIE called pts next of kin, Bridgett Knight [phone] (pts mother) to gather the initial intake information, but the call went straight to voicemail. ARAMW went back into the pts bedside and Bridgett Knight was present but was on the cell phone and could not speak with the pts mother. Therefore, no initial assessment was completed.
--- NOTE | 2024-07-16 20:57 | XR_ITS ---
Examination: AP chest single view TECHNIQUE: AP portable semiupright chest single view Date and time: July 16, 2024, 10 0 9:00 PM INDICATIONS: Post orogastric tube placement FINDINGS: Orogastric tube coiled in the stomach Minor prominence left ventricle No lobar pneumonia Osseous structures intact IMPRESSION: Orogastric tube coiled in the stomach
[2024-07-16] MEDS: PANTOPRAZOLE INJ 40 MG VIAL IVP (21:23)
--- NOTE | 2024-07-16 21:26 | PC.NURSE ---
called as 50 mg spironolactone and 10 mg lasix is past due and unable to pull he will review chart and see if he wants to reorder also if he wants to hold the lr at 75ml/hr
[2024-07-16] MEDS: FUROSEMIDE INJ 10 MG/ML 4ML VIAL IVP (22:05)
[2024-07-16] MEDS: RINGERS LACTATED 1000 ML 1,000 ML 75 ML IV (22:44)
--- NOTE | 2024-07-16 22:54 | PC.NURSE ---
Asked Dr. Tee for a diet order. said to leave it blank for now, not give anything by mouth. added he'll let the day team know.
--- NOTE | 2024-07-16 23:09 | XR_ITS ---
Examination: AP chest single view TECHNIQUE: AP portable semiupright chest single view Date and time: July 16, 2024 11:29 PM Comparison July 16, 2024, 2209 hours INDICATIONS: Post orogastric tube placement FINDINGS: Orogastric tube tip in stomach Reduced inspiratory effort Mild prominence of ventricle IMPRESSION: Orogastric tube in the stomach satisfactory position
--- NOTE | 2024-07-16 23:15 | PC.NURSE ---
Per chest Xray, orogastric tube coiled in the stomach. Re-adjusted and new order for CXR placed to confirm tube placement. XR tech made aware.
--- NOTE | 2024-07-16 23:16 | PC.NURSE ---
Called Bridgett, patient's mother/point of contact, to ask if she has a list of patient's meds as Pt is not able to answer questions at this time. No answer, left a voicemail message.
[2024-07-17] VITALS (17 sets, daily range): BP systolic 96–129; BP diastolic 53–77; PULSE 50–77; RESP 15–20; TEMP 36.1–36.6; O2SAT 94–99
--- NOTE | 2024-07-17 00:27 | PC.NURSE ---
BP 101/53, HR 55. Per xavier Jean to administer Aldactone 50mg, Inderal 10mg, and Midodrine 10mg via NG tube.
[2024-07-17] MEDS: PROPRANOLOL 10 MG TABLET NG ×2 (00:30→10:29)
[2024-07-17] MEDS: MIDODRINE 5 MG TABLET 10 MG NG ×2 (00:30→14:36)
[2024-07-17] MEDS: rifaximin 550 MG TABLET NG ×2 (00:30→10:28)
[2024-07-17] MEDS: SPIRONOLACTONE 25 MG TABLET 50 MG PO (00:31)
[2024-07-17] MEDS: LACTULOSE SYRUP 20 GM/30 ML UDC 30 GM NG ×7 (00:32→16:02)
[2024-07-17 05:15] LABS: Basophils % (Auto) 1 % (0-2.5); Eosinophils # (Auto) 0.1 Thou/mm3 (0.0-0.5); Eosinophils % (Auto) 3 % (0-10); Hematocrit 31.4 % (36.0-46.0); Hemoglobin 10.8 g/dL (12.0-16.0); Immature Granulocytes % (Auto) 0 % (0-0); Immature Granulocytes Auto 0.01 Thou/mm3 (0.00-0.00); Lymphocytes # (Auto) 1.4 Thou/mm3 (1.0-4.8); Lymphocytes % (Auto) 31 % (10-50); Mean Corpuscular HGB Conc 34.4 g/dl (31.0-37.0); Mean Corpuscular Hemoglobin 35.5 pg (25.0-35.0); Mean Corpuscular Volume 103 fL (80-100); Monocytes # (Auto) 0.3 Thou/mm3 (0.0-0.8); Monocytes % (Auto) 7 % (0-12); Neutrophils # (Auto) 2.5 Thou/mm3 (1.8-7.7); Neutrophils % (Auto) 58 % (37-80); Nucleated Red Blood Cell % 0 /100 WBC (0); RDW Standard Deviation 65.6 fL (36.4-46.3); Red Blood Count 3.04 Miln/mm3 (4.00-5.20); White Blood Count 4.4 Thou/mm3 (3.6-11.0)
[2024-07-17 05:19] LABS: Platelet Count 36 Thou/mm3 (140-440)
[2024-07-17 05:36] LABS: Alanine Aminotransferase 22 U/L (10-49); Albumin, Serum 3.5 gm/dL (3.5-5.0); Albumin/Globulin Ratio 1.1 (1.2-2.2); Alkaline Phosphatase 87 U/L (46-116); Anion Gap 14 (7-16); Aspartate Amino Transferase 42 U/L (0-34); BUN/Creatinine Ratio 15 Ratio (12-20); Bilirubin,Total 7.6 mg/dL (0.3-1.2); Blood Urea Nitrogen 16 mg/dL (9-23); Calcium 9.1 mg/dL (8.3-10.6); Calcium (Corrected) 9.5 mg/dL (8.5-10.1); Carbon Dioxide 23.2 mMol/L (20.0-31.0); Chloride 111 mMol/L (98-107); Creatinine (Component) 1.1 mg/dL (0.6-1.3); Globulin 3.3 gm/dL (2.3-3.5); Glucose 153 mg/dL (74-106); Magnesium 1.9 mg/dL (1.6-2.6); Osmolality,Calculated 298 (275-295); Phosphorous 3.8 mg/dL (2.4-5.1); Potassium 4.5 mMol/L (3.4-5.1); Sodium 148 mMol/L (136-145); Total Protein 6.8 gm/dL (5.7-8.2); eGFR > 60 See Note
[2024-07-17 06:27] LABS: Slide Review Platelets confirmed
--- NOTE | 2024-07-17 08:29 | XR_ITS ---
Examination: Abdomen AP single view Technique: AP portable supine abdomen, single view Exam date and time: July 17, 2024 at 0840 hours INDICATIONS: Onset abdominal pain today. FINDINGS: Moderate air and stool throughout the colon No obstruction No free air IMPRESSION: Nonobstructive bowel gas pattern
--- NOTE | 2024-07-17 09:04 | ESCONSULT_ITS ---
Documented by User: Justa Ramon MD 07/18/24 12:53 History of Present Illness Data of Consult Consult date: 07/17/24 Requesting Physician: Mateo Glover DO Primary Care Provider: Physician No Primary/Family Consult Narrative Reason for consult: Metabolic encephalopathy cc:: cc: Mateo Glover, DO Meds Home Medications and Allergies Home Medications ?Medication ?Instructions ?Recorded ?Confirmed ?Type ergocalciferol (vitamin D2) 1,250 1,250 mcg PO QWEEK 1 04/08/23 07/06/24 History mcg (50,000 unit) capsule (Vitamin D2) methocarbamol 750 mg tablet 750 mg PO BID 02/06/24 History Allergies Allergy/AdvReac Type Severity Reaction Status Date / Time latex Allergy Severe Hives Verified 07/16/24 09:48 Exam Vital Signs Temp Pulse Resp BP Pulse Ox O2 Del Method 36.9 C 54 L 18 105/55 L 97 Room Air 07/18/24 04:00 07/18/24 05:52 07/18/24 04:00 07/18/24 05:52 07/18/24 04:00 07/18/24 04:00 Results Labs 07/18/24 05:18 07/18/24 05:18 Assessment & Plan Additional Assessment & Plan Additional Plan: 53-year-old female with known history of liver cirrhosis, history of variceal bleeds s/p banding with recurrent admissions for hepatic encephalopathy was admitted for acute encephalopathy, likely secondary to hepatic encephalopathy. Ammonia level to 48. Patient was started on lactulose and rifaximin with minimal bowel movements and improvement in mentation, therefore nephrology was consulted for hemodialysis. #Acute metabolic encephalopathy #Hepatic encephalopathy In the setting of underlying cirrhosis Patient's mentation is not at baseline; AAO x 0, GCS 8 but responsive to pain Ammonia 248 on 07/16/2024, repeat ammonia levels 94, of note patient had prior episodes of hyperammonemia over the course of last year, including ammonia levels as high as 300, managed conservatively. ?Nephrology consulted for hemodialysis, repeat ammonia levels show improvement, initially planned for dialysis cath placement and hemodialysis as ammonia is dialyzable, but following repeat ammonia levels and improvement in patient's mental status in the afternoon, recommend holding off on hemodialysis, continuing with lactulose, encouraging bowel movement. #Decompensated cirrhosis, with sequela #Thrombocytopenia #Coagulopathy #Hyperbilirubinemia Child-Paniagua class C 13 points MELD sodium 22 points with 19.6% 3-month mortality Continue NG tube with lactulose, rifaximin, Aldactone, Lasix, midodrine Outpatient hepatology follow up for liver transplant evaluation #Concern for SBP Obtunded patient with significant abdominal tenderness on palpation Patient on Rocephin Consider diagnostic paracentesis with culture #Lactic acidosis, likely type B Appears to be related to poor clearance in the setting of cirrhosis versus secondary to underlying SBP #Macrocytic anemia Chronic, stable Likely from history of alcohol abuse Patient seen and care discussed with my attending Dr. Ramon. Kat PGY2 Patient seen and examined with resident physician Dr. Stephens. Note reviewed, agree with findings and recommendations. Patient very obtunded this morning. Decided to proceed with temporary dialysis as ammonia is dialyzable. Creatinine and electrolyte seems to be acceptable. Other by the end of the day patient started to improve and turnaround and had bowel movements with the lactulose. Ammonia level came back at 96. Hold off on dialysis. Plan of care discussed with primary team. Documented by User: Marielos Stephens MD 07/18/24 10:06 History of Present Illness Consult Narrative History of present illness: Limited HPI due to mental status, most of HPI completed after chart review. The patient is a 53-year-old female with past medical history of end-stage liver disease, recurrent episodes of hepatic encephalopathy, history of variceal bleed s/p EVBL, the patient is pending an appointment with a ssrs report developer in [place] on 26 July 2024, pending evaluation by transplant realtime captioner in [place]. Nephrology was consulted for urgent hemodialysis as patient was in severe hepatic encephalopathy grade 4, ammonia 248, unable to arousable to noxious stimuli, GCS 8/15. At the time of evaluation, the patient is somnolent and drowsy, arousable only on noxious stimuli, severe pain on palpation of abdomen. Per RN, patient had not had a bowel movement for the last 48 hours. Primary team started the patient on lactulose via NG tube. Past medical history: Decompensated cirrhosis, variceal bleed, recurrent episodes of hepatic encephalopathy Past surgical history: Appendectomy, 2 , 2 laparoscopic procedures for endometriosis Social history: Stopped alcohol in 2023, denies smoking, other illicit drug abuse Allergies: Latex Review of Systems Review of Systems ROS Unobtainable: unobtainable due to mental status Meds Home Medications and Allergies Home Medications ?Medication ?Instructions ?Recorded ?Confirmed ?Type ergocalciferol (vitamin D2) 1,250 1,250 mcg PO QWEEK 1 04/08/23 07/06/24 History mcg (50,000 unit) capsule (Vitamin D2) methocarbamol 750 mg tablet 750 mg PO BID 02/06/24 History Allergies Allergy/AdvReac Type Severity Reaction Status Date / Time latex Allergy Severe Hives Verified 07/16/24 09:48 Exam Narrative Exam GENERAL * Obtunded, ANO x 0, responding only to noxious stimuli. HEENT * NCAT.?ROSELIA. Oral mucosa is moist. Patent Nares NECK * Supple, nontender, no thyromegaly, no meningismus, no JVD, no step offs CHEST * RRR, no m/g/r * CTAB, no w/r/r. Symmetrical chest rise. No intercostal subcostal retraction * Atraumatic, nontender, no crepitus, symmetrical expansion. ABDOMEN * Soft, mildly distended, winces on abdominal palpation. * Bowel sounds present EXTREMITIES * No edema/cyanosis.? SKIN * Warm and dry, no jaundice/rashes. NEUROMUSCULAR * No lumbar or midline, no CVA, no paraspinal muscle spasm or tenderness. * Moves all 4 extremities well, with full ROM and good CSM. * CASAS x4, CN II-XII grossly intact. * No focal neurologic deficits. PSYCHIATRY * Normal mood and affect, cooperative, no SI or HI or hallucinations. Results Labs 07/18/24 05:18 07/18/24 05:18 Assessment & Plan Additional Assessment & Plan Additional Plan: 53-year-old female with known history of liver cirrhosis, history of variceal bleeds s/p banding with recurrent admissions for hepatic encephalopathy was admitted for acute encephalopathy, likely secondary to hepatic encephalopathy. Ammonia level to 48. Patient was started on lactulose and rifaximin with minimal bowel movements and improvement in mentation, therefore nephrology was consulted for hemodialysis. #Acute metabolic encephalopathy #Hepatic encephalopathy In the setting of underlying cirrhosis Patient's mentation is not at baseline; AAO x 0, GCS 8 but responsive to pain Ammonia 248 on 07/16/2024, repeat ammonia levels 94, of note patient had prior episodes of hyperammonemia over the course of last year, including ammonia levels as high as 300, managed conservatively. ?Nephrology consulted for hemodialysis, repeat ammonia levels show improvement, initially planned for dialysis cath placement and hemodialysis as ammonia is dialyzable, but following repeat ammonia levels and improvement in patient's mental status in the afternoon, recommend holding off on hemodialysis, continuing with lactulose, encouraging bowel movement. #Decompensated cirrhosis, with sequela #Thrombocytopenia #Coagulopathy #Hyperbilirubinemia Child-P[place] class C 13 points MELD sodium 22 points with 19.6% 3-month mortality Continue NG tube with lactulose, rifaximin, Aldactone, Lasix, midodrine Outpatient hepatology follow up for liver transplant evaluation #Concern for SBP Obtunded patient with significant abdominal tenderness on palpation Patient on Rocephin Consider diagnostic paracentesis with culture #Lactic acidosis, likely type B Appears to be related to poor clearance in the setting of cirrhosis versus secondary to underlying SBP #Macrocytic anemia Chronic, stable Likely from history of alcohol abuse Patient seen and care discussed with my attending Dr. Ramon. Kat PGY2
--- NOTE | 2024-07-17 10:05 | ESPR_ITS ---
Documentation for date of: 07/17/24 Subjective Subjective Interval history: Patient seen and examined at bedside this morning. She is obtunded minimally responsive to pain; GCS 8. Vitals stable, labs reviewed. Hemoglobin stable, platelets 36, INR 1.9, sodium 148, T. bili 7.6. Lactic acid & ammonia pending. Will recommend placing dialysis catheter to hemodialyze ammonia, as lactulose/rifaximin does not appear to be working. Patient has only had 1 episode of bowel incontinence this morning. Exam Vital Signs Temp Pulse Resp BP Pulse Ox O2 Del Method 97.8 F 77 19 129/77 98 Room Air 07/17/24 07:58 07/17/24 07:58 07/17/24 07:58 07/17/24 07:58 07/17/24 07:58 07/17/24 07:58 Narrative Exam Gen: AAOx0, obtunded, responds to pain HEENT: does not follow commands to open eyes CVS: normal S1, S2. RRR. No MRG Resp: CTA B/L. No rhonchi, rales, crackles or wheezing Abd: soft, TTP diffusely, distended. Mild fluid shift MSK: Moves extremities, no significant edema noted Neuro: GCS 8 Objective Labs 07/18/24 05:18 07/18/24 05:18 Labs: Laboratory Results - last 24 hr 07/16/24 07/16/24 07/16/24 09:39 11:07 13:03 WBC 3.0 L RBC 2.90 L Hgb 10.3 L Hct 29.6 L MCV 102 H MCH 35.5 H MCHC 34.8 RDW Std Deviation 65.1 H Plt Count 41 L D Neut % (Auto) 54 Lymph % (Auto) 35 [place] % (Auto) 6 Eos % (Auto) 5 Baso % (Auto) 0 Neut # (Auto) 1.6 L Lymph # (Auto) 1.1 [place] # (Auto) 0.2 Eos # (Auto) 0.1 Baso # (Auto) 0.0 Immature Gran # (Auto) 0.00 Absolute Nucleated RBC 0.00 Immature Gran % 0 Nucleated RBC % 0 PT 19.5 H INR 1.9 H APTT 48.7 H Sodium 142 Potassium 5.2 H Chloride 108 H Carbon Dioxide 24.7 Anion Gap 9 BUN 15 Creatinine 1.1 Estim Creat Clear Calc Not Performed. eGFR > 60 BUN/Creatinine Ratio 14 Glucose 166 H Calculated Osmolality 287 Lactic Acid 2.8 H Calcium 8.6 Corrected Calcium 8.8 Phosphorus Magnesium Total Bilirubin 4.9 H AST 48 H ALT 22 Alkaline Phosphatase 129 H Ammonia 248 H* Troponin I < 0.020 Total Protein 6.8 Albumin 3.7 Globulin 3.1 Albumin/Globulin Ratio 1.2 Lipase 26 Ur Collection Type Clean Catch Urine Color Yellow Urine Clarity Clear Urine pH 6.5 Ur Specific [place] 1.024 Urine Protein Negative Urine Glucose (UA) Negative Urine Ketones Negative Urine Blood Negative Urine Nitrite Negative Urine Bilirubin Negative Urine Urobilinogen (Auto) Negative Ur Leukocyte Esterase Negative Urine RBC 3 Urine WBC 3 Ur Squamous Epith Cells 0 Urine Bacteria 1+ A Urine Opiates Screen Positive A Urine Fentanyl Screen Negative Ur Barbiturates Screen Negative U Amphetamin/Meth Scrn Negative U Benzodiazepines Scrn Negative U Cocaine Metab Screen Negative U Marijuana (THC) Screen Negative Ethyl Alcohol < 3.0 Misc Test Result Platelets confirmed 07/17/24 04:47 WBC 4.4 D RBC 3.04 L Hgb 10.8 L Hct 31.4 L MCV 103 H MCH 35.5 H MCHC 34.4 RDW Std Deviation 65.6 H Plt Count 36 L Neut % (Auto) 58 Lymph % (Auto) 31 [place] % (Auto) 7 Eos % (Auto) 3 Baso % (Auto) 1 Neut # (Auto) 2.5 Lymph # (Auto) 1.4 [place] # (Auto) 0.3 Eos # (Auto) 0.1 Baso # (Auto) 0.0 Immature Gran # (Auto) 0.01 H Absolute Nucleated RBC 0.00 Immature Gran % 0 Nucleated RBC % 0 PT INR APTT Sodium 148 H Potassium 4.5 D Chloride 111 H Carbon Dioxide 23.2 Anion Gap 14 BUN 16 Creatinine 1.1 Estim Creat Clear Calc Not Performed. eGFR > 60 BUN/Creatinine Ratio 15 Glucose 153 H Calculated Osmolality 298 H Lactic Acid Calcium 9.1 Corrected Calcium 9.5 Phosphorus 3.8 Magnesium 1.9 Total Bilirubin 7.6 H D AST 42 H ALT 22 Alkaline Phosphatase 87 D Ammonia Troponin I Total Protein 6.8 Albumin 3.5 Globulin 3.3 Albumin/Globulin Ratio 1.1 L Lipase Ur Collection Type Urine Color Urine Clarity Urine pH Ur Specific [place] Urine Protein Urine Glucose (UA) Urine Ketones Urine Blood Urine Nitrite Urine Bilirubin Urine Urobilinogen (Auto) Ur Leukocyte Esterase Urine RBC Urine WBC Ur Squamous Epith Cells Urine Bacteria Urine Opiates Screen Urine Fentanyl Screen Ur Barbiturates Screen U Amphetamin/Meth Scrn U Benzodiazepines Scrn U Cocaine Metab Screen U Marijuana (THC) Screen Ethyl Alcohol Misc Test Result Platelets confirmed Quality Measures Quality Measures VTE prophylaxis (SCDs) Assessment & Plan Assessment Current Active Medications: Generic Name Dose Route Start Last Admin Trade Name Freq PRN Reason Stop Dose Admin Balsam [place] Oil 0 gm 07/17/24 09:00 Balsam [place] Oil (Venelex) 60 Gm Tube TOP 08/16/24 08:59 BID CELINA Dextrose 25 ml 07/16/24 16:03 Dextrose 50%-Water Inj 50 Ml Syringe IV 08/15/24 16:02 Q15MIN PRN BG 50-70 responsive npo pt Dextrose 50 ml 07/16/24 16:03 Dextrose 50%-Water Inj 50 Ml Syringe IV 08/15/24 16:02 Q15MIN PRN BG <50 OR BG <70 & pt unresponsive Furosemide 10 mg 07/16/24 16:00 07/16/24 22:10 Furosemide Inj 10 Mg/Ml Vial 2 Ml IVP 08/15/24 15:59 Not Given QDAY CELINA Glucagon 1 mg 07/16/24 16:03 Glucagon Inj 1 Mg Vial IM Q15MIN PRN BG <70, and no IV access Lactated Ringer's 1,000 mls @ 75 mls/hr 07/16/24 17:33 07/16/24 22:44 Lactated Ringers IV 08/15/24 17:32 75 mls/hr .[id number] CELINA Administration Ceftriaxone Sodium/Dextrose 1 gm in 50 mls @ 100 mls/hr 07/17/24 09:00 Rocephin/D5w 1gm Iv Premix IV 07/24/24 08:59 QDAY CELINA Insulin Human Lispro 0 unit 07/16/24 17:00 07/16/24 22:19 Insulin Lispro (Admelog) 1 Unit/0.01 Ml Unit SC 08/15/24 16:59 Not Given ACHS CELINA Protocol Lactulose 30 gm 07/17/24 00:15 07/17/24 06:27 Lactulose Syrup 20 Gm/30 Ml Udc NG 08/16/24 00:14 30 gm Q2HR CELINA Administration Protocol Midodrine 10 mg 07/17/24 06:23 Midodrine 5 Mg Tablet NG 08/15/24 21:59 TID CELINA Ondansetron HCl 4 mg 07/16/24 15:31 Ondansetron Inj 2 Mg/Ml Inj 2 Ml IVP 08/15/24 15:30 Q6H PRN NAUSEA OR VOMITING Protocol Pantoprazole Sodium 40 mg 07/16/24 21:00 07/16/24 21:23 Pantoprazole Inj 40 Mg Vial IVP 08/15/24 20:59 40 mg BID CELINA Administration Propranolol HCl 10 mg 07/16/24 21:00 07/17/24 00:30 Propranolol 10 Mg Tablet NG 08/15/24 20:59 10 mg BID CELINA Administration Rifaximin 550 mg 07/16/24 21:00 07/17/24 00:30 Rifaximin 550 Mg Tablet NG 07/23/24 20:59 550 mg BID CELINA Administration Spironolactone 50 mg 07/17/24 09:00 Spironolactone 25 Mg Tablet NG 08/16/24 08:59 QDAY CELINA Plan 53-year-old female with known history of liver cirrhosis, history of variceal bleeds s/p banding with recurrent admissions for hepatic encephalopathy was admitted for acute encephalopathy, likely secondary to hepatic encephalopathy. Ammonia level noted to be in 200s. Patient was started on lactulose and rifaximin with minimal bowel movements and improvement in mentation, therefore nephrology was consulted for hemodialysis. #Acute metabolic encephalopathy #Hepatic encephalopathy In the setting of underlying cirrhosis Patient's mentation is not at baseline; AAO x 0, GCS 8 and responsive to pain Ammonia 248 on 07/16/2024, repeat pending Nephrology consulted for hemodialysis Temporary Vas-Cath to be placed by IR #Decompensated cirrhosis, with sequela #Thrombocytopenia #Coagulopathy #Hyperbilirubinemia [place] class C 13 points MELD sodium 22 points with 19.6% 3-month mortality Continue NG tube with lactulose, rifaximin, Aldactone, Lasix, midodrine Outpatient hepatology follow up for liver transplant evaluation #Concern for SBP Obtunded patient with significant abdominal tenderness on palpation Patient on Rocephin Consider diagnostic paracentesis with culture #Lactic acidosis, likely type B Appears to be related to poor clearance in the setting of cirrhosis versus secondary to underlying SBP #Macrocytic anemia Chronic, stable Likely from history of alcohol abuse Patient seen and care discussed with my attending Dr. Ramon. Nasima Blair MD PGY-3 Attending Provider Attestation/Addendum Patient seen and examined with resident physician Dr. Blair. Note reviewed, agree with findings and recommendations. Patient very obtunded this morning. Decided to proceed with temporary dialysis as ammonia is dialyzable. Creatinine and electrolyte seems to be acceptable. Other by the end of the day patient started to improve and turnaround and had bowel movements with the lactulose. Ammonia level came back at 96. Hold off on dialysis. Plan of care discussed with primary team.
[2024-07-17] MEDS: cefTRIAXone/D5w 1gm IV premix 1 GM/50 ML BAG IV (10:27)
[2024-07-17] MEDS: FUROSEMIDE INJ 10 MG/ML VIAL 2 ML IVP (10:27)
[2024-07-17] MEDS: BALSAM PERU/CASTOR OIL (Venelex) 60 GM TUBE TOP ×2 (10:28→21:10)
[2024-07-17] MEDS: PANTOPRAZOLE INJ 40 MG VIAL IVP (10:28)
[2024-07-17] MEDS: SPIRONOLACTONE 25 MG TABLET 50 MG NG (10:28)
[2024-07-17 10:47] LABS: Ammonia 94 uMol/L (11-32)
--- NOTE | 2024-07-17 11:21 | XR_ITS ---
Examination: Abdomen sonogram, Limited Date and time of exam: July 17, 2024 1203 hours Technique: Real-time sifuentes scale transabdominal sonographic images of the upper abdomen obtained. Findings: Distended bowel gas No free fluid noted for successful paracentesis IMPRESSION: No free fluid noted for successful paracentesis
--- NOTE | 2024-07-17 11:39 | PC.SS ---
Patient is altered. SS spoke to patient's mother, Bridgett. Bridgett was able to provide a brief history. Patient's mother resides with her. Patient is total care. Mother states patient has a bsc and wheelchair at home. She does not have a hospital bed but she does have a bed where they can electronically raise head and feet area. Patient cannot do her own transfers. Grandson assists with transfers. Family provides transportation to appointments. SS will provide resource for [facility] transportation assistance. Patient is already connected to [facility] and the mother takes those hours. PCP: Dr. Stephens at the [facility]. Last appt. was last week. Pharmacy: [facility] Patient is already open to [facility] services for nursing and PT. Patient admitted for acute hepatic encephalopathy. Notes indicate temp vas cath pending. SS confirmed with mother the d/c plan is to return home with . alt medical decision maker: Bridgett mother, d/c plan: [facility] transportation: family vs gurney transport.
--- NOTE | 2024-07-17 12:06 | PC.NURSE ---
Per Dr. Coates Dialysis cath cancelled. No new orders. Called medical lab assistant and made them aware of cancellation.
[2024-07-17 12:49] LABS: Reflex Lactate? Y
[2024-07-17 13:16] LABS: Lactic Acid, 3 HR 3.8 mMol/L (0.4-2.0)
--- NOTE | 2024-07-17 13:17 | ESPR_ITS ---
<Statement entered by Ricardo Richards MD - 07/18/24 07:19> I discussed with and supervised the internet media planner physician involved in the care of this patient. Patient assessment and plan was discussed with entire medicine team, including my attending. I agree with the assessment and plan as documented by internet media planner doctor. Patient care was discussed with my attending physician Dr. Adalberto Richards, PGY-2 Documentation for date of: 07/17/24 Subjective Subjective Interval history: No acute overnight events. Vital stable. Ammonia improved to 94 today. Encephalopathy improving: More alert today, answering question. Complaining of abdominal pain, which is also tender on exam. Low-dose TYLENOL and DILAUDID were added for pain. KUB showed air in the abdomen, no obstruction. Abdominal ultrasound showed no free fluid for successful paracentesis. Remains afebrile, no leukocytosis, continued on CEFTRIAXONE SBP prophylaxis. Temporary Vas-Cath postponed, unlikely will need HD per nephrology team, considering symptoms are improving and ammonia normalizing. Exam Vital Signs Temp Pulse Resp BP Pulse Ox O2 Del Method 97.3 F 66 20 109/68 98 Room Air 07/17/24 12:00 07/17/24 12:00 07/17/24 12:00 07/17/24 12:00 07/17/24 12:00 07/17/24 12:00 Narrative Exam GENERAL * Alert, answering question, on room air. HEENT * NCAT.?ROSELIA. Oral mucosa is moist. Patent Nares NECK * Supple, nontender, no thyromegaly, no meningismus, no JVD, no step offs CHEST * RRR, no m/g/r * CTAB, no w/r/r. Symmetrical chest rise. No intercostal subcostal retraction * Atraumatic, nontender, no crepitus, symmetrical expansion. ABDOMEN * Soft, mildly distended, moderately tender to palpation. * Bowel sounds presents EXTREMITIES * No edema/cyanosis.? SKIN * Warm and dry, no jaundice/rashes. NEUROMUSCULAR * No lumbar or midline, no CVA, no paraspinal muscle spasm or tenderness. * Moves all 4 extremities well, with full ROM and good CSM. * CASAS x4, CN II-XII grossly intact. * No focal neurologic deficits. PSYCHIATRY * Normal mood and affect, cooperative, no SI or HI or hallucinations. Objective Labs 07/17/24 04:47 07/17/24 04:47 Labs: Laboratory Results - last 24 hr 07/16/24 07/17/24 07/17/24 13:03 04:47 09:38 WBC 4.4 D RBC 3.04 L Hgb 10.8 L Hct 31.4 L MCV 103 H MCH 35.5 H MCHC 34.4 RDW Std Deviation 65.6 H Plt Count 36 L Neut % (Auto) 58 Lymph % (Auto) 31 [place] % (Auto) 7 Eos % (Auto) 3 Baso % (Auto) 1 Neut # (Auto) 2.5 Lymph # (Auto) 1.4 [place] # (Auto) 0.3 Eos # (Auto) 0.1 Baso # (Auto) 0.0 Immature Gran # (Auto) 0.01 H Absolute Nucleated RBC 0.00 Immature Gran % 0 Nucleated RBC % 0 Sodium 148 H Potassium 4.5 D Chloride 111 H Carbon Dioxide 23.2 Anion Gap 14 BUN 16 Creatinine 1.1 Estim Creat Clear Calc Not Performed. eGFR > 60 BUN/Creatinine Ratio 15 Glucose 153 H Calculated Osmolality 298 H Lactic Acid 2.8 H 4.0 H Calcium 9.1 Corrected Calcium 9.5 Phosphorus 3.8 Magnesium 1.9 Total Bilirubin 7.6 H D AST 42 H ALT 22 Alkaline Phosphatase 87 D Ammonia 94 H* Total Protein 6.8 Albumin 3.5 Globulin 3.3 Albumin/Globulin Ratio 1.1 L Misc Test Result Platelets confirmed 07/17/24 13:06 WBC RBC Hgb Hct MCV MCH MCHC RDW Std Deviation Plt Count Neut % (Auto) Lymph % (Auto) [place] % (Auto) Eos % (Auto) Baso % (Auto) Neut # (Auto) Lymph # (Auto) [place] # (Auto) Eos # (Auto) Baso # (Auto) Immature Gran # (Auto) Absolute Nucleated RBC Immature Gran % Nucleated RBC % Sodium Potassium Chloride Carbon Dioxide Anion Gap BUN Creatinine Estim Creat Clear Calc eGFR BUN/Creatinine Ratio Glucose Calculated Osmolality Lactic Acid 3.8 H Calcium Corrected Calcium Phosphorus Magnesium Total Bilirubin AST ALT Alkaline Phosphatase Ammonia Total Protein Albumin Globulin Albumin/Globulin Ratio Misc Test Result Quality Measures Quality Measures VTE prophylaxis (SCDs) Assessment & Plan Assessment Current Active Medications: Generic Name Dose Route Start Last Admin Trade Name Freq PRN Reason Stop Dose Admin Acetaminophen 325 mg 07/17/24 13:16 Acetaminophen 325 Mg Tablet PO 08/16/24 13:15 Q6HR PRN PAIN 1-6 (mild-mod Balsam Davida/[place] Oil 0 gm 07/17/24 09:00 07/17/24 10:28 Balsam [place] Oil (Venelex) 60 Gm Tube TOP 08/16/24 08:59 1 applicatio BID CELINA Administration Dextrose 25 ml 07/16/24 16:03 Dextrose 50%-Water Inj 50 Ml Syringe IV 08/15/24 16:02 Q15MIN PRN BG 50-70 responsive npo pt Dextrose 50 ml 07/16/24 16:03 Dextrose 50%-Water Inj 50 Ml Syringe IV 08/15/24 16:02 Q15MIN PRN BG <50 OR BG <70 & pt unresponsive Furosemide 10 mg 07/16/24 16:00 07/17/24 10:27 Furosemide Inj 10 Mg/Ml Vial 2 Ml IVP 08/15/24 15:59 10 mg QDAY CELINA Administration Glucagon 1 mg 07/16/24 16:03 Glucagon Inj 1 Mg Vial IM Q15MIN PRN BG <70, and no IV access Hydromorphone HCl 0.5 mg 07/17/24 13:15 Hydromorphone Inj 2 Mg/Ml Vial IVP 07/22/24 13:14 Q4HR PRN PAIN SCALE 7-10 (Severe Ceftriaxone Sodium/Dextrose 1 gm in 50 mls @ 100 mls/hr 07/17/24 09:00 07/17/24 10:27 Rocephin/D5w 1gm Iv Premix IV 07/24/24 08:59 100 mls/hr QDAY CELINA Administration Insulin Human Lispro 0 unit 07/16/24 17:00 07/17/24 11:37 Insulin Lispro (Admelog) 1 Unit/0.01 Ml Unit SC 08/15/24 16:59 Not Given ACHS CELINA Protocol Lactulose 30 gm 07/17/24 00:15 07/17/24 11:37 Lactulose Syrup 20 Gm/30 Ml Udc NG 08/16/24 00:14 Not Given Q2HR CELINA Protocol Midodrine 10 mg 07/17/24 06:23 Midodrine 5 Mg Tablet NG 08/15/24 21:59 TID CELINA Ondansetron HCl 4 mg 07/16/24 15:31 Ondansetron Inj 2 Mg/Ml Inj 2 Ml IVP 08/15/24 15:30 Q6H PRN NAUSEA OR VOMITING Protocol Pantoprazole Sodium 40 mg 07/16/24 21:00 07/17/24 10:28 Pantoprazole Inj 40 Mg Vial IVP 08/15/24 20:59 40 mg BID CELINA Administration Propranolol HCl 10 mg 07/16/24 21:00 07/17/24 10:29 Propranolol 10 Mg Tablet NG 08/15/24 20:59 10 mg BID CELINA Administration Rifaximin 550 mg 07/16/24 21:00 07/17/24 10:28 Rifaximin 550 Mg Tablet NG 07/23/24 20:59 550 mg BID CELINA Administration Spironolactone 50 mg 07/17/24 09:00 07/17/24 10:28 Spironolactone 25 Mg Tablet NG 08/16/24 08:59 50 mg QDAY CELINA Administration Plan This is a 51-year-old female with PMHx of liver cirrhosis, variceal bleed s/p banding with recurrent admissions for hepatic encephalopathy, presenting with acute altered mental status that started the morning of admission. Appreciate recommendations from nephrology team. Acute hepatic encephalopathy In setting of decompensated liver cirrhosis Presenting with acute AMS x 1 day, difficult to arouse, unresponsive. History of recurrent admission for similar symptoms and hepatic encephalopathy. She is taking her medications, given by her mother. Previously having 2-3 bowel movements daily, however she did not have a bowel movement yesterday. Mother denies concern for drug or medication overdose. On exam, she is obtunded, responsive to noxious stimuli only. Ammonia 248 (substantially higher than previous admissions). Head CT negative for acute pathology. Unable to assess for focal neurological deficits. Given obtunded status. No signs of edema or ascites on exam. MADDREY score 30.5 indicating poor prognosis, likely benefit from STEROID. MELD score 21 point indicating 19.6% mortality in next 3 months. ? NG tube and rectal tube ordered ? Continue RIFAXIMIN 550 mg BID ? Continue LACTULOSE 200 mg [place] TID, will increase dose for goal of 2-3 BMs daily. ? Continue SPIRONOLACTONE 50 mg ? Continue LASIX 20 mg daily ? Continue PROPRANOLOL 10 mg BID ? Continue LR at 75 cc/H ? Nephrology consulted for possible HD ? Will consider STEROIDS if symptoms worsen or do not improve Concern for SBP Complaining of abdominal pain, abdomen tender on exam, slightly distended but soft. KUB showed air in the abdomen but no new obstruction. Ultrasound showed not enough peritoneal fluid to be safely drained. Remains afebrile, no leukocytosis. ? Started CEFTRIAXONE for prophylaxis ? Continue TYLENOL 325 mg q.6h. PRN for pain 1?6 ? Continue DILAUDID 0.5 mg IV q.4h. PRN for pain 7-10 Lactic acidosis Type B in settings of liver failure Lactic acid 2.2 > 4.0 > 3.8, likely for hepatic clearance. Low suspicion for hypoxemia or sepsis, afebrile, no leukocytosis, satting well on room air. Received 1 L NS in ED and some LR which was discontinued for fluid retention concern. Does not appear septic, no leukocytosis, afebrile, normocardic. ? Trending lactic acid Chronic bradycardia Hypertension Admission BP 97/64, HR 50, EKG showed sinus bradycardia. Bradycardia on most previous admission. Bradycardia likely 2/2 MIDODRINE or autonomic neuropathy in setting of advanced cirrhosis. Hypertension likely 2/2 advanced cirrhosis. Currently vitals are stable. ? Continue home MIDODRINE 10 mg TID ? Telemetry Mild Hyperkalemia (resolved) Likely 2/2 diuresis. ? Repeat AM labs, consider KAYEXALATE if persistent or worsening. Health maintenance Diet: NPO GI prophylaxis: PROTONIX DVT prophylaxis: HEPARIN subcu, BID Antibiotics: CEFTRIAXONE CODE STATUS: Full code Disposition: Pending improvement of hepatic encephalopathy. Case was discussed with attending physician and senior resident. Soila Harris DO PGYI Attending Provider Attestation/Addendum I have discussed and was present for the essential components of the history, physical examination, diagnosis, and treatment plan with the resident. I agree with the patient's care as documented by the resident and amended herein by me. Dickson Glover DO. Patient seen and evaluated this AM. No acute events overnight, I/O1 1000/850 mL. Vital signs stable, patient afebrile in the AM. The patient also more awake and alert compared to previous day. Significant labs include a stable hemoglobin of 10, platelet count 36, sodium 148, potassium 4.5, INR 1.9, lactic acid did go up to 4 however slightly down trended to 3.8 today, T. bili up to 7.6. No G-tube has been placed last night, will continue lactulose, the patient's ammonia level has downtrended to 94 today hence we will hold off on dialysis for now, will continue lactulose, Lasix, spironolactone, and midodrine for now. Unclear where the patient is at in regards to a transplant objects conservator, her mother was at bedside however was not a good historian on what is transpired in that regard. Will question the patient once she is more alert and oriented. Although this document has been carefully reviewed, there may still be some phonetic and other typographical errors. These errors are purely grammatical due to imperfections in the software program and should not be construed in any way to compromise the substance of the patient's medical care during this visit.
[2024-07-17] MEDS: HYDROmorphone INJ 2 MG/ML VIAL 0.5 MG IVP ×2 (13:57→18:03)
--- NOTE | 2024-07-17 16:26 | PC.CM ---
Patient is opened to [facility] health. she will need home health orders placed if she discharges home.
[2024-07-17] MEDS: INSULIN LISPRO (AdmeLOG) 1 UNIT/0.01 ML UNIT SC ×2 (17:22→21:04)
[2024-07-17] MEDS: HEPARIN SOD INJ 5000 UNIT/ML VIAL SC (21:04)
[2024-07-17] MEDS: LACTULOSE SYRUP 20 GM/30 ML UDC 30 GM PO (21:06)
[2024-07-17] MEDS: PROPRANOLOL 10 MG TABLET PO (21:07)
[2024-07-17] MEDS: rifaximin 550 MG TABLET PO (21:07)
[2024-07-17] MEDS: MIDODRINE 5 MG TABLET 10 MG PO (21:09)
[2024-07-18] VITALS (12 sets, daily range): BP systolic 105–127; BP diastolic 55–77; PULSE 53–71; RESP 17–18; TEMP 36.2–37.1; O2SAT 93–99
[2024-07-18] MEDS: ACETAMINOPHEN SOL 325 MG/10 ML UDC PO (01:08)
[2024-07-18 05:29] LABS: Lactate (Lactic Acid) 1.4 mMol/L (0.4-2.0)
[2024-07-18 05:48] LABS: Basophils # (Auto) 0.1 Thou/mm3 (0.0-0.2); Basophils % (Auto) 1 % (0-2.5); Eosinophils # (Auto) 0.4 Thou/mm3 (0.0-0.5); Eosinophils % (Auto) 5 % (0-10); Hematocrit 30.2 % (36.0-46.0); Hemoglobin 10.4 g/dL (12.0-16.0); Immature Granulocytes % (Auto) 0 % (0-0); Immature Granulocytes Auto 0.02 Thou/mm3 (0.00-0.00); Lymphocytes # (Auto) 2.4 Thou/mm3 (1.0-4.8); Lymphocytes % (Auto) 33 % (10-50); Mean Corpuscular HGB Conc 34.4 g/dl (31.0-37.0); Mean Corpuscular Volume 105 fL (80-100); Monocytes # (Auto) 0.8 Thou/mm3 (0.0-0.8); Monocytes % (Auto) 10 % (0-12); Neutrophils # (Auto) 3.7 Thou/mm3 (1.8-7.7); Neutrophils % (Auto) 50 % (37-80); Nucleated Red Blood Cell % 0 /100 WBC (0); RDW Standard Deviation 64.4 fL (36.4-46.3); Red Blood Count 2.89 Miln/mm3 (4.00-5.20); White Blood Count 7.3 Thou/mm3 (3.6-11.0)
[2024-07-18] MEDS: LACTULOSE SYRUP 20 GM/30 ML UDC 30 GM PO ×3 (05:52→21:36)
[2024-07-18] MEDS: MIDODRINE 5 MG TABLET 10 MG PO ×3 (05:52→21:37)
[2024-07-18 06:37] LABS: Alanine Aminotransferase 20 U/L (10-49); Albumin, Serum 3.2 gm/dL (3.5-5.0); Alkaline Phosphatase 69 U/L (46-116); Anion Gap 12 (7-16); Aspartate Amino Transferase 36 U/L (0-34); BUN/Creatinine Ratio 10 Ratio (12-20); Bilirubin,Total 6.7 mg/dL (0.3-1.2); Blood Urea Nitrogen 13 mg/dL (9-23); Calcium 8.7 mg/dL (8.3-10.6); Calcium (Corrected) 9.3 mg/dL (8.5-10.1); Carbon Dioxide 22.8 mMol/L (20.0-31.0); Chloride 112 mMol/L (98-107); Creatinine (Component) 1.3 mg/dL (0.6-1.3); Globulin 3.1 gm/dL (2.3-3.5); Glucose 77 mg/dL (74-106); Magnesium 1.5 mg/dL (1.6-2.6); Osmolality,Calculated 291 (275-295); Potassium 3.8 mMol/L (3.4-5.1); Sodium 147 mMol/L (136-145); Total Protein 6.3 gm/dL (5.7-8.2); eGFR 49 See Note
--- NOTE | 2024-07-18 07:24 | PD.RESPRO ---
Documentation for date of: 07/18/24 Subjective Subjective Interval history: 53-year-old female with known history of liver cirrhosis, history of variceal bleeds s/p banding with recurrent admissions for hepatic encephalopathy was admitted for acute encephalopathy, likely secondary to hepatic encephalopathy. Ammonia level noted to be in 200s. Patient was started on lactulose and rifaximin with minimal bowel movements and improvement in mentation, therefore nephrology was consulted for hemodialysis. 07/17/2024 patient seen and examined at bedside this morning. She is obtunded minimally responsive to pain; GCS 8. Vitals stable, labs reviewed. Hemoglobin stable, platelets 36, INR 1.9, sodium 148, T. bili 7.6. Lactic acid & ammonia pending. Will recommend placing dialysis catheter to hemodialyze ammonia, as lactulose/rifaximin does not appear to be working. Patient has only had 1 episode of bowel incontinence this morning. 07/18/2024 the patient examined at the bedside, mental status improved remarkably, is able to answer questions, no flapping tremors on exam, but has some difficulty processing complex information. Likely still in hepatic encephalopathy stage I, no plans for hemodialysis due to improvement in mental status following treatment with lactulose and relief of constipation. Patient was educated about need for having consistent 3-4 soft bowel movements every day, and titrating lactulose based on the bowel movements, but she will probably require more education prior to discharge. Ultrasound abdomen negative for ascites Serum sodium 147, likely due to volume contraction, patient does appear clinically dry. Added half NS 1000 mL x 1. Urine output 1600 mL overnight. Net negative fluid balance. Exam Vital Signs Temp Pulse Resp BP Pulse Ox O2 Del Method 98.4 F 54 L 18 105/55 L 97 Room Air 07/18/24 04:00 07/18/24 05:52 07/18/24 04:00 07/18/24 05:52 07/18/24 04:00 07/18/24 04:00 Narrative Exam General: AOx 2, negative asterixis, cooperative, but shortened attention span. Skin: Intact, no cyanosis or edema noted. HEENT: Atraumatic/normocephalic, ROSELIA, neck supple Heart: RRR, S1 and S2 without clicks or murmurs Lungs: Clear on auscultation bilaterally, no difficulty breathing Abdomen: Soft, nontender. Bowel sounds present . Vascular: Peripheral pulses palpable Neuro: No focal neurological deficits noted. Able to move all 4 extremities Objective Labs 07/18/24 05:18 07/18/24 05:18 Labs: Laboratory Results - last 24 hr 07/17/24 07/17/24 07/18/24 09:38 13:06 05:18 Sodium 147 H Potassium 3.8 D Chloride 112 H Carbon Dioxide 22.8 Anion Gap 12 BUN 13 Creatinine 1.3 Estim Creat Clear Calc Not Performed. eGFR 49 L BUN/Creatinine Ratio 10 L Glucose 77 D Calculated Osmolality 291 Lactic Acid 4.0 H 3.8 H 1.4 Calcium 8.7 Corrected Calcium 9.3 Phosphorus 4.0 Magnesium 1.5 L Total Bilirubin 6.7 H D AST 36 H ALT 20 Alkaline Phosphatase 69 D Ammonia 94 H* Total Protein 6.3 Albumin 3.2 L Globulin 3.1 Albumin/Globulin Ratio 1.0 L Quality Measures Quality Measures VTE prophylaxis (SCDs) Assessment & Plan Assessment Current Active Medications: Generic Name Dose Route Start Last Admin Trade Name Freq PRN Reason Stop Dose Admin Acetaminophen 325 mg 07/17/24 16:37 07/18/24 01:08 Acetaminophen Karis 325 Mg/10 Ml Udc PO 08/16/24 13:15 325 mg Q6HR PRN Administration PAIN 1-6 (mild-mod Balsam [place] Oil 0 gm 07/17/24 09:00 07/17/24 21:10 Balsam [place] Oil (Venelex) 60 Gm Tube TOP 08/16/24 08:59 1 applicatio BID CELINA Administration Dextrose 25 ml 07/16/24 16:03 Dextrose 50%-Water Inj 50 Ml Syringe IV 08/15/24 16:02 Q15MIN PRN BG 50-70 responsive npo pt Dextrose 50 ml 07/16/24 16:03 Dextrose 50%-Water Inj 50 Ml Syringe IV 08/15/24 16:02 Q15MIN PRN BG <50 OR BG <70 & pt unresponsive Furosemide 20 mg 07/18/24 09:00 Furosemide 20 Mg Tablet PO 08/17/24 08:59 QAM CELINA Glucagon 1 mg 07/16/24 16:03 Glucagon Inj 1 Mg Vial IM Q15MIN PRN BG <70, and no IV access Heparin Sodium (Porcine) 5,000 unit 07/17/24 21:00 07/17/24 21:04 Heparin Sod Inj 5000 Unit/Ml Vial SC 07/31/24 20:59 5,000 unit BID CELINA Administration Hydromorphone HCl 0.5 mg 07/17/24 13:15 07/17/24 18:03 Hydromorphone Inj 2 Mg/Ml Vial IVP 07/22/24 13:14 0.5 mg Q4HR PRN Administration PAIN SCALE 7-10 (Severe Ceftriaxone Sodium/Dextrose 1 gm in 50 mls @ 100 mls/hr 07/17/24 09:00 07/17/24 10:27 Rocephin/D5w 1gm Iv Premix IV 07/24/24 08:59 100 mls/hr QDAY CELINA Administration Insulin Human Lispro 0 unit 07/16/24 17:00 07/17/24 21:04 Insulin Lispro (Admelog) 1 Unit/0.01 Ml Unit SC 08/15/24 16:59 4 unit ACHS CELINA Administration Protocol Lactulose 30 gm 07/17/24 22:00 07/18/24 05:52 Lactulose Syrup 20 Gm/30 Ml Udc PO 08/16/24 21:59 30 gm TID CELINA Administration Protocol Midodrine 10 mg 07/17/24 22:00 07/18/24 05:52 Midodrine 5 Mg Tablet PO 08/16/24 21:59 10 mg TID CELINA Administration Ondansetron HCl 4 mg 07/16/24 15:31 Ondansetron Inj 2 Mg/Ml Inj 2 Ml IVP 08/15/24 15:30 Q6H PRN NAUSEA OR VOMITING Protocol Pantoprazole Sodium 40 mg 07/18/24 09:00 Pantoprazole 40 Mg Tablet PO 08/17/24 08:59 QDAY CELINA Propranolol HCl 10 mg 07/17/24 21:00 07/17/24 21:07 Propranolol 10 Mg Tablet PO 08/16/24 20:59 10 mg BID CELINA Administration Rifaximin 550 mg 07/17/24 21:00 07/17/24 21:07 Rifaximin 550 Mg Tablet PO 07/24/24 20:59 550 mg BID CELINA Administration Spironolactone 50 mg 07/18/24 09:00 Spironolactone 25 Mg Tablet PO 08/17/24 08:59 QDAY CELINA Plan 53-year-old female with known history of liver cirrhosis, history of variceal bleeds s/p banding with recurrent admissions for hepatic encephalopathy was admitted for acute encephalopathy, likely secondary to hepatic encephalopathy. Ammonia level noted to be in 200s. Patient was started on lactulose and rifaximin with minimal bowel movements and improvement in mentation, therefore nephrology was consulted for hemodialysis. #Acute metabolic encephalopathy #Hepatic encephalopathy?now resolving In the setting of underlying cirrhosis, Ammonia 248 on 07/16/2024, repeat ammonia level downtrending, ammonia 29 on 07/18/2024 Nephrology consulted for hemodialysis 07/18/2024 mental status improved remarkably, is able to answer questions, no flapping tremors on exam, but has some difficulty processing complex information. Likely still in hepatic encephalopathy stage I, no plans for hemodialysis due to improvement in mental status following treatment with lactulose and relief of constipation. Patient was educated about need for having consistent 3-4 soft bowel movements every day, and titrating lactulose based on the bowel movements, but she will probably require more education prior to discharge. Ultrasound abdomen negative for ascites Serum sodium 147, likely due to volume contraction, patient does appear clinically dry. Added half NS 1000 mL x 1. Urine output 1600 mL overnight. Net negative fluid balance. ?Nephrology will sign off at this moment, renal function at baseline, mental status improving, recommend continuing current treatment. #Decompensated cirrhosis, with sequela #Thrombocytopenia #Coagulopathy #Hyperbilirubinemia Child-[place] class C 13 points MELD sodium 22 points with 19.6% 3-month mortality Continue NG tube with lactulose, rifaximin, Aldactone, Lasix, midodrine Outpatient hepatology follow up for liver transplant evaluation #Concern for SBP Obtunded patient with significant abdominal tenderness on palpation Patient on Rocephin Consider diagnostic paracentesis with culture #Lactic acidosis, likely type B Appears to be related to poor clearance in the setting of cirrhosis versus secondary to underlying SBP #Macrocytic anemia Chronic, stable Likely from history of alcohol abuse Patient seen and care discussed with my attending Dr. Ramon. Thank you for allowing us to participate in the care of Mrs. Antonia Ruff, nephrology will sign off of the case. Kat PGY2 Attending Provider Attestation/Addendum Patient seen and examined with resident physician Dr. Stephens. Note reviewed, agree with findings and recommendations. patient alert and awake. Still have some memory lapses. Creatinine normal. Electrolytes stable. recommended to continue with the lactulose. Renal will sign off. Thank you for the consult. Ammonia level is 29. No need for any renal intervention at this point.
[2024-07-18 07:28] LABS: Ammonia 29 uMol/L (11-32)
[2024-07-18 08:03] LABS: Platelet Count 46 Thou/mm3 (140-440)
[2024-07-18] MEDS: PROPRANOLOL 10 MG TABLET PO ×2 (08:12→21:36)
[2024-07-18] MEDS: PANTOPRAZOLE 40 MG TABLET PO (08:12)
[2024-07-18] MEDS: rifaximin 550 MG TABLET PO ×2 (08:13→21:36)
[2024-07-18] MEDS: Furosemide 20 MG TABLET PO (08:13)
[2024-07-18] MEDS: SPIRONOLACTONE 25 MG TABLET 50 MG PO (08:13)
[2024-07-18] MEDS: BALSAM PERU/CASTOR OIL (Venelex) 60 GM TUBE TOP ×2 (08:14→21:37)
[2024-07-18] MEDS: cefTRIAXone/D5w 1gm IV premix 1 GM/50 ML BAG IV (08:14)
[2024-07-18] MEDS: SODIUM CHLORIDE 0.45 % 1,000 ML 75 ML IV (08:14)
[2024-07-18] MEDS: HEPARIN SOD INJ 5000 UNIT/ML VIAL SC ×2 (08:16→21:37)
[2024-07-18 08:27] LABS: Slide Review Platelets confirmed
[2024-07-18] MEDS: INSULIN LISPRO (AdmeLOG) 1 UNIT/0.01 ML UNIT SC ×3 (11:29→21:38)
[2024-07-18] MEDS: HYDROmorphone INJ 2 MG/ML VIAL 0.5 MG IVP (13:29)
--- NOTE | 2024-07-18 14:35 | ESPR_ITS ---
<Statement entered by Ricardo Richards MD - 07/19/24 07:13> I discussed with and supervised the grad intern physician involved in the care of this patient. Patient assessment and plan was discussed with entire medicine team, including my attending. I agree with the assessment and plan as documented by grad intern doctor. Patient care was discussed with my attending physician Dr. Adalberto Richards, PGY-2 Documentation for date of: 07/18/24 Subjective Subjective Interval history: No acute overnight events. Made substantial improvement in terms of mentation. Alert and oriented x 4 today. Following oral intake with no nausea or vomiting. Denies new symptoms or worsening of symptoms. Appears at baseline. Had 2 large bowel movements yesterday. Vitals are stable. Labs remarkable for ammonia 29, sodium 147, total bili improving at 6.7, magnesium 1.5, potassium 3.8, CBC at baseline. Will continue with LACTULOSE. Nephrology as tolerated-NS for hypernatremia. Still no indication for hemodialysis. Overall symptoms improved. Exam Vital Signs Temp Pulse Resp BP Pulse Ox O2 Del Method O2 Flow Rate 97.9 F 53 L 18 119/63 93 L Nasal Cannula 1 07/18/24 08:00 07/18/24 13:28 07/18/24 08:00 07/18/24 13:28 07/18/24 08:00 07/18/24 08:00 07/18/24 08:00 Narrative Exam GENERAL * Alert, answering question, on room air. HEENT * NCAT.?ROSELIA. Oral mucosa is moist. Patent Nares NECK * Supple, nontender, no thyromegaly, no meningismus, no JVD, no step offs CHEST * RRR, no m/g/r * CTAB, no w/r/r. Symmetrical chest rise. No intercostal subcostal retraction * Atraumatic, nontender, no crepitus, symmetrical expansion. ABDOMEN * Soft, mildly distended, moderately tender to palpation. * Bowel sounds presents EXTREMITIES * No edema/cyanosis.? SKIN * Warm and dry, no jaundice/rashes. NEUROMUSCULAR * No lumbar or midline, no CVA, no paraspinal muscle spasm or tenderness. * Moves all 4 extremities well, with full ROM and good CSM. * CASAS x4, CN II-XII grossly intact. * No focal neurologic deficits. PSYCHIATRY * Normal mood and affect, cooperative, no SI or HI or hallucinations. Objective Labs 07/18/24 05:18 07/18/24 05:18 Labs: Laboratory Results - last 24 hr 07/18/24 07/18/24 05:18 07:04 WBC 7.3 D RBC 2.89 L Hgb 10.4 L Hct 30.2 L MCV 105 H MCH 36.0 H MCHC 34.4 RDW Std Deviation 64.4 H Plt Count 46 L D Neut % (Auto) 50 Lymph % (Auto) 33 [place] % (Auto) 10 Eos % (Auto) 5 Baso % (Auto) 1 Neut # (Auto) 3.7 Lymph # (Auto) 2.4 [place] # (Auto) 0.8 Eos # (Auto) 0.4 Baso # (Auto) 0.1 Immature Gran # (Auto) 0.02 H Absolute Nucleated RBC 0.00 Immature Gran % 0 Nucleated RBC % 0 Sodium 147 H Potassium 3.8 D Chloride 112 H Carbon Dioxide 22.8 Anion Gap 12 BUN 13 Creatinine 1.3 Estim Creat Clear Calc Not Performed. eGFR 49 L BUN/Creatinine Ratio 10 L Glucose 77 D Calculated Osmolality 291 Lactic Acid 1.4 Calcium 8.7 Corrected Calcium 9.3 Phosphorus 4.0 Magnesium 1.5 L Total Bilirubin 6.7 H D AST 36 H ALT 20 Alkaline Phosphatase 69 D Ammonia 29 Total Protein 6.3 Albumin 3.2 L Globulin 3.1 Albumin/Globulin Ratio 1.0 L Misc Test Result Platelets confirmed Quality Measures Quality Measures VTE prophylaxis (SCDs) Assessment & Plan Assessment Current Active Medications: Generic Name Dose Route Start Last Admin Trade Name Freq PRN Reason Stop Dose Admin Acetaminophen 325 mg 07/17/24 16:37 07/18/24 01:08 Acetaminophen Karis 325 Mg/10 Ml Udc PO 08/16/24 13:15 325 mg Q6HR PRN Administration PAIN 1-6 (mild-mod Balsam [place] Oil 0 gm 07/17/24 09:00 07/18/24 08:14 Balsam [place] Oil (Venelex) 60 Gm Tube TOP 08/16/24 08:59 1 applicatio BID CELINA Administration Dextrose 25 ml 07/16/24 16:03 Dextrose 50%-Water Inj 50 Ml Syringe IV 08/15/24 16:02 Q15MIN PRN BG 50-70 responsive npo pt Dextrose 50 ml 07/16/24 16:03 Dextrose 50%-Water Inj 50 Ml Syringe IV 08/15/24 16:02 Q15MIN PRN BG <50 OR BG <70 & pt unresponsive Furosemide 20 mg 07/18/24 09:00 07/18/24 08:13 Furosemide 20 Mg Tablet PO 08/17/24 08:59 20 mg QAM CELINA Administration Glucagon 1 mg 07/16/24 16:03 Glucagon Inj 1 Mg Vial IM Q15MIN PRN BG <70, and no IV access Heparin Sodium (Porcine) 5,000 unit 07/17/24 21:00 07/18/24 08:16 Heparin Sod Inj 5000 Unit/Ml Vial SC 07/31/24 20:59 5,000 unit BID CELINA Administration Hydromorphone HCl 0.5 mg 07/17/24 13:15 07/18/24 13:29 Hydromorphone Inj 2 Mg/Ml Vial IVP 07/22/24 13:14 0.5 mg Q4HR PRN Administration PAIN SCALE 7-10 (Severe Ceftriaxone Sodium/Dextrose 1 gm in 50 mls @ 100 mls/hr 07/17/24 09:00 07/18/24 08:14 Rocephin/D5w 1gm Iv Premix IV 07/24/24 08:59 100 mls/hr QDAY CELINA Administration Sodium Chloride 1,000 mls @ 75 mls/hr 07/18/24 07:47 07/18/24 08:14 Ns 0.45% IV 07/18/24 21:06 75 mls/hr .[id number] ONE Administration Insulin Human Lispro 0 unit 07/16/24 17:00 07/18/24 11:29 Insulin Lispro (Admelog) 1 Unit/0.01 Ml Unit SC 08/15/24 16:59 2 unit ACHS CELINA Administration Protocol Lactulose 30 gm 07/17/24 22:00 07/18/24 13:27 Lactulose Syrup 20 Gm/30 Ml Udc PO 08/16/24 21:59 30 gm TID CELINA Administration Protocol Midodrine 10 mg 07/17/24 22:00 07/18/24 13:28 Midodrine 5 Mg Tablet PO 08/16/24 21:59 10 mg TID CELINA Administration Ondansetron HCl 4 mg 07/16/24 15:31 Ondansetron Inj 2 Mg/Ml Inj 2 Ml IVP 08/15/24 15:30 Q6H PRN NAUSEA OR VOMITING Protocol Pantoprazole Sodium 40 mg 07/18/24 09:00 07/18/24 08:12 Pantoprazole 40 Mg Tablet PO 08/17/24 08:59 40 mg QDAY CELINA Administration Propranolol HCl 10 mg 07/17/24 21:00 07/18/24 08:12 Propranolol 10 Mg Tablet PO 08/16/24 20:59 10 mg BID CELINA Administration Rifaximin 550 mg 07/17/24 21:00 07/18/24 08:13 Rifaximin 550 Mg Tablet PO 07/24/24 20:59 550 mg BID CELINA Administration Spironolactone 50 mg 07/18/24 09:00 07/18/24 08:13 Spironolactone 25 Mg Tablet PO 08/17/24 08:59 50 mg QDAY CELINA Administration Plan This is a 51-year-old female with PMHx of liver cirrhosis, variceal bleed s/p banding with recurrent admissions for hepatic encephalopathy, presenting with acute altered mental status that started the morning of admission. Appreciate recommendations from nephrology team. Acute hepatic encephalopathy In setting of decompensated liver cirrhosis Presenting with acute AMS x 1 day, difficult to arouse, unresponsive. History of recurrent admission for similar symptoms and hepatic encephalopathy. She is taking her medications, given by her mother. Previously having 2-3 bowel movements daily, however she did not have a bowel movement yesterday. Mother denies concern for drug or medication overdose. On exam, she is obtunded, responsive to noxious stimuli only. Ammonia 248 (substantially higher than previous admissions). Head CT negative for acute pathology. Unable to assess for focal neurological deficits. Given obtunded status. No signs of edema or ascites on exam. MADDREY score 30.5 indicating poor prognosis, likely benefit from STEROID. MELD score 21 point indicating 19.6% mortality in next 3 months. ? Continue RIFAXIMIN 550 mg BID ? Continue LACTULOSE 200 mg DE TID, will increase dose for goal of 2-3 BMs daily. ? Continue SPIRONOLACTONE 50 mg ? Continue LASIX 20 mg daily ? Continue PROPRANOLOL 10 mg BID Concern for SBP Complaining of abdominal pain, abdomen tender on exam, slightly distended but soft. KUB showed air in the abdomen but no new obstruction. Ultrasound showed not enough peritoneal fluid to be safely drained. Remains afebrile, no leukocytosis. ? Continue CEFTRIAXONE for prophylaxis (07/17 to present) ? Continue TYLENOL 325 mg q.6h. PRN for pain 1?6 ? Continue DILAUDID 0.5 mg IV q.4h. PRN for pain 7-10 Hyponatremia Sodium 147 Likely secondary to LACTULOSE and free fluid fluid loss. Nephrology on board, started half NS. ? Continue half NS at 75 cc/H ? Daily labs ? Sodium checks q.6h Lactic acidosis Type B in settings of liver failure (resolved) Lactic acid 2.2 > 4.0 > 3.8, likely for hepatic clearance. Low suspicion for hypoxemia or sepsis, afebrile, no leukocytosis, satting well on room air. Received 1 L NS in ED and some LR which was discontinued for fluid retention concern. Does not appear septic, no leukocytosis, afebrile, normocardic. ? Trending lactic acid Chronic bradycardia (stable) Hypertension (stable) Admission BP 97/64, HR 50, EKG showed sinus bradycardia. Bradycardia on most previous admission. Bradycardia likely 2/2 MIDODRINE or autonomic neuropathy in setting of advanced cirrhosis. Hypertension likely 2/2 advanced cirrhosis. Currently vitals are stable. ? Continue home MIDODRINE 10 mg TID ? Telemetry Mild Hyperkalemia (resolved) Likely 2/2 diuresis. ? Repeat AM labs, consider KAYEXALATE if persistent or worsening. Health maintenance Diet: NPO GI prophylaxis: PROTONIX DVT prophylaxis: HEPARIN subcu, BID Antibiotics: CEFTRIAXONE CODE STATUS: Full code Disposition: Pending improvement of hepatic encephalopathy. Case was discussed with attending physician and senior resident. Soila Harris DO PGYI Attending Provider Attestation/Addendum I have discussed and was present for the essential components of the history, physical examination, diagnosis, and treatment plan with the resident. I agree with the patient's care as documented by the resident and amended herein by me. Dickson Glover DO. Patient seen and evaluated this AM. No acute events overnight, I/O1 1000/850 mL. Vital signs stable, patient afebrile in the AM. The patient also more awake and alert compared to previous day. Significant labs include a stable hemoglobin of 10, platelet count 36, sodium 148, potassium 4.5, INR 1.9, lactic acid did go up to 4 however slightly down trended to 3.8 today, T. bili up to 7.6. No G-tube has been placed last night, will continue lactulose, the patient's ammonia level has downtrended to 94 today hence we will hold off on dialysis for now, will continue lactulose, Lasix, spironolactone, and midodrine for now. 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 Will question the patient once she is more alert and oriented. Although this document has been carefully reviewed, there may still be some phonetic and other typographical errors. These errors are purely grammatical due to imperfections in the software program and should not be construed in any way to compromise the substance of the patient's medical care during this visit.
[2024-07-18 16:02] LABS: Sodium 141 mMol/L (136-145)
[2024-07-18 18:54] LABS: Sodium 138 mMol/L (136-145)
[2024-07-19] VITALS (13 sets, daily range): BP systolic 107–127; BP diastolic 59–84; PULSE 55–84; RESP 12–18; TEMP 36.1–37.1; O2SAT 96–99; BMI 31.4
[2024-07-19] MEDS: LACTULOSE SYRUP 20 GM/30 ML UDC 30 GM PO ×3 (05:33→21:01)
[2024-07-19] MEDS: MIDODRINE 5 MG TABLET 10 MG PO ×3 (05:34→21:01)
[2024-07-19] MEDS: HYDROmorphone INJ 2 MG/ML VIAL 0.5 MG IVP ×3 (05:46→17:48)
[2024-07-19 06:27] LABS: Alanine Aminotransferase 20 U/L (10-49); Alkaline Phosphatase 66 U/L (46-116); Anion Gap 13 (7-16); Aspartate Amino Transferase 57 U/L (0-34); BUN/Creatinine Ratio 12 Ratio (12-20); Bilirubin,Total 5.5 mg/dL (0.3-1.2); Blood Urea Nitrogen 14 mg/dL (9-23); Calcium 8.4 mg/dL (8.3-10.6); Calcium (Corrected) 9.2 mg/dL (8.5-10.1); Carbon Dioxide 18.8 mMol/L (20.0-31.0); Chloride 109 mMol/L (98-107); Creatinine (Component) 1.2 mg/dL (0.6-1.3); Globulin 2.9 gm/dL (2.3-3.5); Glucose 207 mg/dL (74-106); Magnesium 1.5 mg/dL (1.6-2.6); Osmolality,Calculated 287 (275-295); Phosphorous 3.7 mg/dL (2.4-5.1); Potassium 4.6 mMol/L (3.4-5.1); Sodium 141 mMol/L (136-145); Total Protein 5.9 gm/dL (5.7-8.2); eGFR 54 See Note
[2024-07-19 07:01] LABS: Basophils # (Auto) 0.1 Thou/mm3 (0.0-0.2); Basophils % (Auto) 1 % (0-2.5); Eosinophils # (Auto) 0.3 Thou/mm3 (0.0-0.5); Eosinophils % (Auto) 5 % (0-10); Hematocrit 28.5 % (36.0-46.0); Immature Granulocytes % (Auto) 0 % (0-0); Immature Granulocytes Auto 0.01 Thou/mm3 (0.00-0.00); Lymphocytes % (Auto) 32 % (10-50); Mean Corpuscular HGB Conc 35.1 g/dl (31.0-37.0); Mean Corpuscular Hemoglobin 35.8 pg (25.0-35.0); Mean Corpuscular Volume 102 fL (80-100); Monocytes # (Auto) 0.5 Thou/mm3 (0.0-0.8); Monocytes % (Auto) 9 % (0-12); Neutrophils # (Auto) 3.3 Thou/mm3 (1.8-7.7); Neutrophils % (Auto) 53 % (37-80); Nucleated Red Blood Cell % 0 /100 WBC (0); RDW Standard Deviation 61.7 fL (36.4-46.3); Red Blood Count 2.79 Miln/mm3 (4.00-5.20); White Blood Count 6.2 Thou/mm3 (3.6-11.0)
[2024-07-19 07:03] LABS: Platelet Count 46 Thou/mm3 (140-440)
[2024-07-19] MEDS: HEPARIN SOD INJ 5000 UNIT/ML VIAL SC ×2 (08:11→20:47)
[2024-07-19] MEDS: Magnesium Sulfate 4 GM Ivpb 4 GM/50 ML BAG IV (08:11)
[2024-07-19] MEDS: SPIRONOLACTONE 25 MG TABLET 50 MG PO (08:11)
[2024-07-19] MEDS: INSULIN LISPRO (AdmeLOG) 1 UNIT/0.01 ML UNIT SC ×4 (08:11→20:47)
[2024-07-19] MEDS: Furosemide 20 MG TABLET PO (08:12)
[2024-07-19] MEDS: PROPRANOLOL 10 MG TABLET PO ×2 (08:12→20:48)
[2024-07-19] MEDS: PANTOPRAZOLE 40 MG TABLET PO (08:12)
[2024-07-19] MEDS: rifaximin 550 MG TABLET PO ×2 (08:12→20:47)
[2024-07-19] MEDS: cefTRIAXone/D5w 1gm IV premix 1 GM/50 ML BAG IV (08:13)
[2024-07-19] MEDS: BALSAM PERU/CASTOR OIL (Venelex) 60 GM TUBE TOP ×2 (08:13→20:46)
--- NOTE | 2024-07-19 10:14 | PC.NURSE ---
's Adalberto, Kimberly, Maurice Gandhi, and Adan in to see pt.
[2024-07-19 10:35] LABS: Slide Review Platelets confirmed
--- NOTE | 2024-07-19 11:33 | ESPR_ITS ---
<Statement entered by Ricardo Richards MD - 07/19/24 21:53> I discussed with and supervised the business analyst intern physician involved in the care of this patient. Patient assessment and plan was discussed with entire medicine team, including my attending. I agree with the assessment and plan as documented by business analyst intern doctor. Patient care was discussed with my attending physician Dr.Tingle Ricardo Richards, PGY-2 Documentation for date of: 07/19/24 Subjective Subjective Interval history: No acute overnight events. Mentation substantially improved. Alert and oriented x 4, although subjectively still feels disoriented. Had 3 large bowel movements yesterday. Denies fever, chills, headaches, chest pain, sob, cough, GI or urinary symptoms. Vitals stable, on room air improving, remainder labs showing no significant changes from previous. Most likely will discharge tomorrow if she is feeling better. Exam Vital Signs Temp Pulse Resp BP Pulse Ox O2 Del Method O2 Flow Rate 98.4 F 66 16 113/59 L 97 Room Air 1 07/19/24 07:44 07/19/24 08:12 07/19/24 07:44 07/19/24 08:12 07/19/24 07:44 07/19/24 04:00 07/18/24 08:00 Narrative Exam GENERAL * Alert, answering question, on room air. HEENT * NCAT.?ROSELIA. Oral mucosa is moist. Patent Nares NECK * Supple, nontender, no thyromegaly, no meningismus, no JVD, no step offs CHEST * RRR, no m/g/r * CTAB, no w/r/r. Symmetrical chest rise. No intercostal subcostal retraction * Atraumatic, nontender, no crepitus, symmetrical expansion. ABDOMEN * Soft, mildly distended, moderately tender to palpation. * Bowel sounds presents EXTREMITIES * No edema/cyanosis.? SKIN * Warm and dry, no jaundice/rashes. NEUROMUSCULAR * No lumbar or midline, no CVA, no paraspinal muscle spasm or tenderness. * Moves all 4 extremities well, with full ROM and good CSM. * CASAS x4, CN II-XII grossly intact. * No focal neurologic deficits. PSYCHIATRY * Normal mood and affect, cooperative, no SI or HI or hallucinations. Objective Labs 07/19/24 06:42 07/19/24 05:06 Labs: Laboratory Results - last 24 hr 07/18/24 07/18/24 07/19/24 15:12 18:31 05:06 WBC RBC Hgb Hct MCV MCH MCHC RDW Std Deviation Plt Count Neut % (Auto) Lymph % (Auto) [place] % (Auto) Eos % (Auto) Baso % (Auto) Neut # (Auto) Lymph # (Auto) [place] # (Auto) Eos # (Auto) Baso # (Auto) Immature Gran # (Auto) Absolute Nucleated RBC Immature Gran % Nucleated RBC % Sodium 141 138 141 Potassium 4.6 D Chloride 109 H Carbon Dioxide 18.8 L Anion Gap 13 BUN 14 Creatinine 1.2 Estim Creat Clear Calc Not Performed. eGFR 54 L BUN/Creatinine Ratio 12 Glucose 207 H D Calculated Osmolality 287 Calcium 8.4 Corrected Calcium 9.2 Phosphorus 3.7 Magnesium 1.5 L Total Bilirubin 5.5 H D AST 57 H ALT 20 Alkaline Phosphatase 66 Total Protein 5.9 Albumin 3.0 L Globulin 2.9 Albumin/Globulin Ratio 1.0 L Misc Test Result 07/19/24 06:42 WBC 6.2 RBC 2.79 L Hgb 10.0 L Hct 28.5 L MCV 102 H MCH 35.8 H MCHC 35.1 RDW Std Deviation 61.7 H Plt Count 46 L Neut % (Auto) 53 Lymph % (Auto) 32 [place] % (Auto) 9 Eos % (Auto) 5 Baso % (Auto) 1 Neut # (Auto) 3.3 Lymph # (Auto) 2.0 [place] # (Auto) 0.5 Eos # (Auto) 0.3 Baso # (Auto) 0.1 Immature Gran # (Auto) 0.01 H Absolute Nucleated RBC 0.00 Immature Gran % 0 Nucleated RBC % 0 Sodium Potassium Chloride Carbon Dioxide Anion Gap BUN Creatinine Estim Creat Clear Calc eGFR BUN/Creatinine Ratio Glucose Calculated Osmolality Calcium Corrected Calcium Phosphorus Magnesium Total Bilirubin AST ALT Alkaline Phosphatase Total Protein Albumin Globulin Albumin/Globulin Ratio Misc Test Result Platelets confirmed Quality Measures Quality Measures VTE prophylaxis (SCDs) Assessment & Plan Assessment Current Active Medications: Generic Name Dose Route Start Last Admin Trade Name Freq PRN Reason Stop Dose Admin Acetaminophen 325 mg 07/17/24 16:37 07/18/24 01:08 Acetaminophen Karis 325 Mg/10 Ml Udc PO 08/16/24 13:15 325 mg Q6HR PRN Administration PAIN 1-6 (mild-mod Balsam [place] Oil 0 gm 07/17/24 09:00 07/19/24 08:13 Balsam [place] Oil (Venelex) 60 Gm Tube TOP 08/16/24 08:59 1 applicatio BID CELINA Administration Dextrose 25 ml 07/16/24 16:03 Dextrose 50%-Water Inj 50 Ml Syringe IV 08/15/24 16:02 Q15MIN PRN BG 50-70 responsive npo pt Dextrose 50 ml 07/16/24 16:03 Dextrose 50%-Water Inj 50 Ml Syringe IV 08/15/24 16:02 Q15MIN PRN BG <50 OR BG <70 & pt unresponsive Furosemide 20 mg 07/18/24 09:00 07/19/24 08:12 Furosemide 20 Mg Tablet PO 08/17/24 08:59 20 mg QAM CELINA Administration Glucagon 1 mg 07/16/24 16:03 Glucagon Inj 1 Mg Vial IM Q15MIN PRN BG <70, and no IV access Heparin Sodium (Porcine) 5,000 unit 07/17/24 21:00 07/19/24 08:11 Heparin Sod Inj 5000 Unit/Ml Vial SC 07/31/24 20:59 5,000 unit BID CELINA Administration Hydromorphone HCl 0.5 mg 07/17/24 13:15 07/19/24 10:25 Hydromorphone Inj 2 Mg/Ml Vial IVP 07/22/24 13:14 0.5 mg Q4HR PRN Administration PAIN SCALE 7-10 (Severe Ceftriaxone Sodium/Dextrose 1 gm in 50 mls @ 100 mls/hr 07/17/24 09:00 07/19/24 08:13 Rocephin/D5w 1gm Iv Premix IV 07/24/24 08:59 100 mls/hr QDAY CELINA Administration Magnesium Sulfate 4 gm in 50 mls @ 12.5 mls/hr 07/19/24 07:44 07/19/24 08:11 Magnesium Sulfate Ivpb IV 07/19/24 11:43 12.5 mls/hr X1 ONE Administration Insulin Human Lispro 0 unit 07/16/24 17:00 07/19/24 08:11 Insulin Lispro (Admelog) 1 Unit/0.01 Ml Unit SC 08/15/24 16:59 2 unit ACHS CELINA Administration Protocol Lactulose 30 gm 07/17/24 22:00 07/19/24 05:33 Lactulose Syrup 20 Gm/30 Ml Udc PO 08/16/24 21:59 30 gm TID CELINA Administration Protocol Midodrine 10 mg 07/17/24 22:00 07/19/24 05:34 Midodrine 5 Mg Tablet PO 08/16/24 21:59 10 mg TID CELINA Administration Ondansetron HCl 4 mg 07/16/24 15:31 Ondansetron Inj 2 Mg/Ml Inj 2 Ml IVP 08/15/24 15:30 Q6H PRN NAUSEA OR VOMITING Protocol Pantoprazole Sodium 40 mg 07/18/24 09:00 07/19/24 08:12 Pantoprazole 40 Mg Tablet PO 08/17/24 08:59 40 mg QDAY CELINA Administration Propranolol HCl 10 mg 07/17/24 21:00 07/19/24 08:12 Propranolol 10 Mg Tablet PO 08/16/24 20:59 10 mg BID CELINA Administration Rifaximin 550 mg 07/17/24 21:00 07/19/24 08:12 Rifaximin 550 Mg Tablet PO 07/24/24 20:59 550 mg BID CELINA Administration Spironolactone 50 mg 07/18/24 09:00 07/19/24 08:11 Spironolactone 25 Mg Tablet PO 08/17/24 08:59 50 mg QDAY CELINA Administration Plan This is a 51-year-old female with PMHx of liver cirrhosis, variceal bleed s/p banding with recurrent admissions for hepatic encephalopathy, presenting with acute altered mental status that started the morning of admission. Appreciate recommendations from nephrology team. Acute hepatic encephalopathy (improved) In setting of decompensated liver cirrhosis Presenting with acute AMS x 1 day, difficult to arouse, unresponsive. History of recurrent admission for similar symptoms and hepatic encephalopathy. She is taking her medications, given by her mother. Previously having 2-3 bowel movements daily, however she did not have a bowel movement yesterday. Mother denies concern for drug or medication overdose. On exam, she is obtunded, responsive to noxious stimuli only. Ammonia 248 (substantially higher than previous admissions). Head CT negative for acute pathology. Unable to assess for focal neurological deficits. Given obtunded status. No signs of edema or ascites on exam. MADDREY score 30.5 indicating poor prognosis, likely benefit from STEROID. MELD score 21 point indicating 19.6% mortality in next 3 months. Overall made good recovery to mentation. Although subjectively does not feel like she is at baseline. Will likely discharge tomorrow if she continues to improve. ? Continue RIFAXIMIN 550 mg BID ? Continue LACTULOSE 200 mg [place] TID, will increase dose for goal of 2-3 BMs daily. ? Continue SPIRONOLACTONE 50 mg ? Continue LASIX 20 mg daily ? Continue PROPRANOLOL 10 mg BID Concern for SBP Complaining of abdominal pain, abdomen tender on exam, slightly distended but soft. KUB showed air in the abdomen but no new obstruction. Ultrasound showed not enough peritoneal fluid to be safely drained. Remains afebrile, no leukocytosis. ? Continue CEFTRIAXONE for prophylaxis (07/17 to present) ? Continue TYLENOL 325 mg q.6h. PRN for pain 1?6 ? Continue DILAUDID 0.5 mg IV q.4h. PRN for pain 7-10 Mild hypomagnesemia Likely GI losses, repleted ? Daily labs Hyponatremia (resolved) Likely secondary to LACTULOSE and free fluid fluid loss. Improved after half NS. ? Daily labs Lactic acidosis Type B in settings of liver failure (resolved) Lactic acid 2.2 > 4.0 > 3.8, likely for hepatic clearance. Low suspicion for hypoxemia or sepsis, afebrile, no leukocytosis, satting well on room air. Received 1 L NS in ED and some LR which was discontinued for fluid retention concern. Does not appear septic, no leukocytosis, afebrile, normocardic. ? Trending lactic acid Chronic bradycardia (stable) Hypertension (stable) Admission BP 97/64, HR 50, EKG showed sinus bradycardia. Bradycardia on most previous admission. Bradycardia likely 2/2 MIDODRINE or autonomic neuropathy in setting of advanced cirrhosis. Hypertension likely 2/2 advanced cirrhosis. Currently vitals are stable. ? Continue home MIDODRINE 10 mg TID ? Telemetry Mild Hyperkalemia (resolved) Likely 2/2 diuresis. ? Repeat AM labs, consider KAYEXALATE if persistent or worsening. Health maintenance Diet: NPO GI prophylaxis: PROTONIX DVT prophylaxis: HEPARIN subcu, BID Antibiotics: CEFTRIAXONE CODE STATUS: Full code Disposition: Pending improvement of hepatic encephalopathy. Case was discussed with attending physician and senior resident. Soila Harris DO PGYI Attending Provider Attestation/Addendum Considering I have discussed and was present for the essential components of the history, physical examination, diagnosis, and treatment plan with the resident. I agree with the patient's care as documented by the resident and amended herein by me. Dickson Glover DO. Patient seen and evaluated this AM. Patient admitted several times for hepatic encephalopathy in setting of decompensated liver failure. No acute events overnight, patient's mentation significantly improved, T. bili is downtrending, hemoglobin stable WBC stable, sodium 141, will remove Liz catheter today continue lactulose however she has had copious bowel movements, no asterixis today on physical exam. Likely discharge tomorrow at 6/6 pending further clinical improvement. Although this document has been carefully reviewed, there may still be some phonetic and other typographical errors. These errors are purely grammatical due to imperfections in the software program and should not be construed in any way to compromise the substance of the patient's medical care during this visit.
--- NOTE | 2024-07-19 13:23 | PC.NURSE ---
Report given to Ana CERON, Ana assumed care at 1305.
[2024-07-20] VITALS (13 sets, daily range): BP systolic 95–115; BP diastolic 46–67; PULSE 53–65; RESP 14–17; TEMP 36.1–36.8; O2SAT 97–99
[2024-07-20 05:55] LABS: Basophils % (Auto) 1 % (0-2.5); Eosinophils # (Auto) 0.3 Thou/mm3 (0.0-0.5); Eosinophils % (Auto) 7 % (0-10); Hematocrit 26.2 % (36.0-46.0); Hemoglobin 9.1 g/dL (12.0-16.0); Immature Granulocytes % (Auto) 0 % (0-0); Lymphocytes # (Auto) 1.8 Thou/mm3 (1.0-4.8); Lymphocytes % (Auto) 43 % (10-50); Mean Corpuscular HGB Conc 34.7 g/dl (31.0-37.0); Mean Corpuscular Hemoglobin 35.3 pg (25.0-35.0); Mean Corpuscular Volume 102 fL (80-100); Monocytes # (Auto) 0.5 Thou/mm3 (0.0-0.8); Monocytes % (Auto) 11 % (0-12); Neutrophils # (Auto) 1.6 Thou/mm3 (1.8-7.7); Neutrophils % (Auto) 39 % (37-80); Nucleated Red Blood Cell % 0 /100 WBC (0); RDW Standard Deviation 59.7 fL (36.4-46.3); Red Blood Count 2.58 Miln/mm3 (4.00-5.20); White Blood Count 4.2 Thou/mm3 (3.6-11.0)
[2024-07-20 06:02] LABS: Platelet Count 34 Thou/mm3 (140-440)
[2024-07-20] MEDS: MIDODRINE 5 MG TABLET 10 MG PO ×3 (06:08→21:26)
[2024-07-20] MEDS: LACTULOSE SYRUP 20 GM/30 ML UDC 30 GM PO ×3 (06:08→21:26)
[2024-07-20 06:14] LABS: Alanine Aminotransferase 17 U/L (10-49); Albumin/Globulin Ratio 1.1 (1.2-2.2); Alkaline Phosphatase 73 U/L (46-116); Anion Gap 9 (7-16); Aspartate Amino Transferase 36 U/L (0-34); BUN/Creatinine Ratio 10 Ratio (12-20); Bilirubin,Total 4.8 mg/dL (0.3-1.2); Blood Urea Nitrogen 11 mg/dL (9-23); Calcium 9.3 mg/dL (8.3-10.6); Calcium (Corrected) 10.1 mg/dL (8.5-10.1); Carbon Dioxide 23.7 mMol/L (20.0-31.0); Chloride 102 mMol/L (98-107); Creatinine (Component) 1.1 mg/dL (0.6-1.3); Estimated Creatinine Clearance 51.2 mL/min (>60); Globulin 2.8 gm/dL (2.3-3.5); Glucose 172 mg/dL (74-106); Magnesium 1.8 mg/dL (1.6-2.6); Osmolality,Calculated 273 (275-295); Potassium 3.9 mMol/L (3.4-5.1); Sodium 135 mMol/L (136-145); Total Protein 5.8 gm/dL (5.7-8.2); eGFR > 60 See Note
[2024-07-20] MEDS: HYDROmorphone INJ 2 MG/ML VIAL 0.5 MG IVP ×2 (06:20→16:50)
[2024-07-20 06:21] LABS: Slide Review Platelets confirmed
--- NOTE | 2024-07-20 07:45 | ESPR_ITS ---
<Statement entered by Ricardo Richards MD - 07/21/24 15:36> Patient still not at baseline, will continue with 30 mL lactulose TID and anticipating to d/c patient within 24 hours. I discussed with and supervised the director internal control physician involved in the care of this patient. Patient assessment and plan was discussed with entire medicine team, including my attending. I agree with the assessment and plan as documented by director internal control doctor. Patient care was discussed with my attending physician Dr. Corbin Richards, PGY-2 Documentation for date of: 07/20/24 Subjective Subjective Interval history: No acute overnight events. Making improvement, however does not feel at baseline, not ready for discharge. Denies fever, chills, headaches, chest pain, sob, cough, GI or urinary symptoms. Vitals are stable. Labs generally unchanged except for sodium 135, Hgb 9.1 without signs of bleed. Exam Vital Signs Temp Pulse Resp BP Pulse Ox O2 Del Method O2 Flow Rate 97.6 F 62 17 115/61 97 Room Air 1 07/20/24 04:00 07/20/24 06:08 07/20/24 04:00 07/20/24 06:08 07/20/24 04:00 07/20/24 04:00 07/20/24 04:00 Narrative Exam GENERAL * Alert, answering question, on room air. HEENT * NCAT.?ROSELIA. Oral mucosa is moist. Patent Nares NECK * Supple, nontender, no thyromegaly, no meningismus, no JVD, no step offs CHEST * RRR, no m/g/r * CTAB, no w/r/r. Symmetrical chest rise. No intercostal subcostal retraction * Atraumatic, nontender, no crepitus, symmetrical expansion. ABDOMEN * Soft, mildly distended, moderately tender to palpation. * Bowel sounds presents EXTREMITIES * No edema/cyanosis.? SKIN * Warm and dry, no jaundice/rashes. NEUROMUSCULAR * No lumbar or midline, no CVA, no paraspinal muscle spasm or tenderness. * Moves all 4 extremities well, with full ROM and good CSM. * CASAS x4, CN II-XII grossly intact. * No focal neurologic deficits. PSYCHIATRY * Normal mood and affect, cooperative, no SI or HI or hallucinations. Objective Labs 07/20/24 04:34 07/20/24 04:34 Labs: Laboratory Results - last 24 hr 07/19/24 07/20/24 06:42 04:34 WBC 4.2 RBC 2.58 L Hgb 9.1 L Hct 26.2 L MCV 102 H MCH 35.3 H MCHC 34.7 RDW Std Deviation 59.7 H Plt Count 34 L D Neut % (Auto) 39 Lymph % (Auto) 43 [place] % (Auto) 11 Eos % (Auto) 7 Baso % (Auto) 1 Neut # (Auto) 1.6 L Lymph # (Auto) 1.8 [place] # (Auto) 0.5 Eos # (Auto) 0.3 Baso # (Auto) 0.0 Immature Gran # (Auto) 0.00 Absolute Nucleated RBC 0.00 Immature Gran % 0 Nucleated RBC % 0 Sodium 135 L Potassium 3.9 D Chloride 102 Carbon Dioxide 23.7 Anion Gap 9 BUN 11 Creatinine 1.1 Estim Creat Clear Calc 51.2 L eGFR > 60 BUN/Creatinine Ratio 10 L Glucose 172 H Calculated Osmolality 273 L Calcium 9.3 Corrected Calcium 10.1 Phosphorus 4.0 Magnesium 1.8 Total Bilirubin 4.8 H D AST 36 H ALT 17 Alkaline Phosphatase 73 Total Protein 5.8 Albumin 3.0 L Globulin 2.8 Albumin/Globulin Ratio 1.1 L Misc Test Result Platelets confirmed Platelets confirmed Quality Measures Quality Measures VTE prophylaxis (SCDs) Assessment & Plan Assessment Current Active Medications: Generic Name Dose Route Start Last Admin Trade Name Freq PRN Reason Stop Dose Admin Acetaminophen 325 mg 07/17/24 16:37 07/18/24 01:08 Acetaminophen Karis 325 Mg/10 Ml Udc PO 08/16/24 13:15 325 mg Q6HR PRN Administration PAIN 1-6 (mild-mod Balsam [place] Oil 0 gm 07/17/24 09:00 07/19/24 20:46 Balsam [place] Oil (Venelex) 60 Gm Tube TOP 08/16/24 08:59 1 applicatio BID CELINA Administration Dextrose 25 ml 07/16/24 16:03 Dextrose 50%-Water Inj 50 Ml Syringe IV 08/15/24 16:02 Q15MIN PRN BG 50-70 responsive npo pt Dextrose 50 ml 07/16/24 16:03 Dextrose 50%-Water Inj 50 Ml Syringe IV 08/15/24 16:02 Q15MIN PRN BG <50 OR BG <70 & pt unresponsive Furosemide 20 mg 07/18/24 09:00 07/19/24 08:12 Furosemide 20 Mg Tablet PO 08/17/24 08:59 20 mg QAM CELINA Administration Glucagon 1 mg 07/16/24 16:03 Glucagon Inj 1 Mg Vial IM Q15MIN PRN BG <70, and no IV access Heparin Sodium (Porcine) 5,000 unit 07/17/24 21:00 07/19/24 20:47 Heparin Sod Inj 5000 Unit/Ml Vial SC 07/31/24 20:59 5,000 unit BID CELINA Administration Hydromorphone HCl 0.5 mg 07/17/24 13:15 07/20/24 06:20 Hydromorphone Inj 2 Mg/Ml Vial IVP 07/22/24 13:14 0.5 mg Q4HR PRN Administration PAIN SCALE 7-10 (Severe Ceftriaxone Sodium/Dextrose 1 gm in 50 mls @ 100 mls/hr 07/17/24 09:00 07/19/24 08:13 Rocephin/D5w 1gm Iv Premix IV 07/24/24 08:59 100 mls/hr QDAY CELINA Administration Insulin Human Lispro 0 unit 07/16/24 17:00 07/19/24 20:47 Insulin Lispro (Admelog) 1 Unit/0.01 Ml Unit SC 08/15/24 16:59 2 unit ACHS CELINA Administration Protocol Lactulose 30 gm 07/17/24 22:00 07/20/24 06:08 Lactulose Syrup 20 Gm/30 Ml Udc PO 08/16/24 21:59 30 gm TID CELINA Administration Protocol Midodrine 10 mg 07/17/24 22:00 07/20/24 06:08 Midodrine 5 Mg Tablet PO 08/16/24 21:59 10 mg TID CELINA Administration Ondansetron HCl 4 mg 07/16/24 15:31 Ondansetron Inj 2 Mg/Ml Inj 2 Ml IVP 08/15/24 15:30 Q6H PRN NAUSEA OR VOMITING Protocol Pantoprazole Sodium 40 mg 07/18/24 09:00 07/19/24 08:12 Pantoprazole 40 Mg Tablet PO 08/17/24 08:59 40 mg QDAY CELINA Administration Propranolol HCl 10 mg 07/17/24 21:00 07/19/24 20:48 Propranolol 10 Mg Tablet PO 08/16/24 20:59 10 mg BID CELINA Administration Rifaximin 550 mg 07/17/24 21:00 07/19/24 20:47 Rifaximin 550 Mg Tablet PO 07/24/24 20:59 550 mg BID CELINA Administration Spironolactone 50 mg 07/18/24 09:00 07/19/24 08:11 Spironolactone 25 Mg Tablet PO 08/17/24 08:59 50 mg QDAY CELINA Administration Plan This is a 51-year-old female with PMHx of liver cirrhosis, variceal bleed s/p banding with recurrent admissions for hepatic encephalopathy, presenting with acute altered mental status that started the morning of admission. Appreciate recommendations from nephrology team. Acute hepatic encephalopathy (improved) In setting of decompensated liver cirrhosis Presenting with acute AMS x 1 day, difficult to arouse, unresponsive. History of recurrent admission for similar symptoms and hepatic encephalopathy. She is taking her medications, given by her mother. Previously having 2-3 bowel movements daily, however she did not have a bowel movement yesterday. Mother denies concern for drug or medication overdose. On exam, she is obtunded, responsive to noxious stimuli only. Ammonia 248 (substantially higher than previous admissions). Head CT negative for acute pathology. Unable to assess for focal neurological deficits. Given obtunded status. No signs of edema or ascites on exam. MADDREY score 30.5 indicating poor prognosis, likely benefit from STEROID. MELD score 21 point indicating 19.6% mortality in next 3 months. Continues to make progress, however does not feel she is at baseline, does not feel ready to leave the hospital, concerned her symptoms might worsen on discharge. Will likely need to stay an additional day for close monitoring. ? Continue RIFAXIMIN 550 mg BID ? Continue LACTULOSE 200 mg [place] TID, will increase dose for goal of 2-3 BMs daily. ? Continue SPIRONOLACTONE 50 mg ? Continue LASIX 20 mg daily ? Continue PROPRANOLOL 10 mg BID ? Pending PT eval Concern for SBP Complaining of abdominal pain, abdomen tender on exam, slightly distended but soft. KUB showed air in the abdomen but no new obstruction. Ultrasound showed not enough peritoneal fluid to be safely drained. Remains afebrile, no leukocytosis. ? Continue CEFTRIAXONE for prophylaxis (07/17 to present) ? Continue TYLENOL 325 mg q.6h. PRN for pain 1?6 ? Continue DILAUDID 0.5 mg IV q.4h. PRN for pain 7-10 Mild hypomagnesemia Likely GI losses, repleted ? Daily labs Hypoosmotic hyponatremia Sodium 135, low serum osmolarity. Likely GI fluid loss leading to appropriately increased ADH response. ? Pending repeat sodium this afternoon Hypernatremia (resolved) Improved after half NS. ? Daily labs Lactic acidosis Type B in settings of liver failure (resolved) Lactic acid 2.2 > 4.0 > 3.8, likely for hepatic clearance. Low suspicion for hypoxemia or sepsis, afebrile, no leukocytosis, satting well on room air. Received 1 L NS in ED and some LR which was discontinued for fluid retention concern. Does not appear septic, no leukocytosis, afebrile, normocardic. ? Trending lactic acid Chronic bradycardia (stable) Hypertension (stable) Admission BP 97/64, HR 50, EKG showed sinus bradycardia. Bradycardia on most previous admission. Bradycardia likely 2/2 MIDODRINE or autonomic neuropathy in setting of advanced cirrhosis. Hypertension likely 2/2 advanced cirrhosis. Currently vitals are stable. ? Continue home MIDODRINE 10 mg TID ? Telemetry Mild Hyperkalemia (resolved) Likely 2/2 diuresis. ? Repeat AM labs, consider KAYEXALATE if persistent or worsening. Health maintenance Diet: NPO GI prophylaxis: PROTONIX DVT prophylaxis: HEPARIN subcu, BID Antibiotics: CEFTRIAXONE CODE STATUS: Full code Disposition: Pending improvement of hepatic encephalopathy. Case was discussed with attending physician and senior resident. Soila Harris DO PGYI Attending Provider Attestation/Addendum I, Shaila Alaniz DO, attest that I was physically present for the son portions of the service and evaluated the patient with the resident and I reviewed and discussed the case with the resident and agree with the resident's findings and plans of care as documented above Patient seen and evaluated this a.m. She states that she is feeling unwell and has been doing her make-up and her bed. She states that she does this to make herself feel better when she does not do well. Patient continues to have some slow slurred speech. Will continue with current management at this time with lactulose and order physical therapy. Patient had previously been recommended intermediate facility, but patient continues to persist that she would like to go home on discharge. If patient remains stable, anticipate discharge for the next 24 hours.
[2024-07-20] MEDS: cefTRIAXone/D5w 1gm IV premix 1 GM/50 ML BAG IV (08:16)
[2024-07-20] MEDS: INSULIN LISPRO (AdmeLOG) 1 UNIT/0.01 ML UNIT SC ×4 (08:16→21:48)
[2024-07-20] MEDS: HEPARIN SOD INJ 5000 UNIT/ML VIAL SC (08:16)
[2024-07-20] MEDS: rifaximin 550 MG TABLET PO ×2 (08:17→21:25)
[2024-07-20] MEDS: PROPRANOLOL 10 MG TABLET PO ×2 (08:17→21:25)
[2024-07-20] MEDS: PANTOPRAZOLE 40 MG TABLET PO (08:17)
[2024-07-20] MEDS: SPIRONOLACTONE 25 MG TABLET 50 MG PO (08:18)
[2024-07-20] MEDS: Furosemide 20 MG TABLET PO (08:18)
[2024-07-20] MEDS: BALSAM PERU/CASTOR OIL (Venelex) 60 GM TUBE TOP ×2 (08:19→21:27)
--- NOTE | 2024-07-20 14:30 | PC.PT ---
Received PT eval. Patient has been bed bound. Patient is total assist with transfers. Patient is waiting to have surgery on her low back. Patient is at her PLOF at this time. Skilled PT not indicated at this time in this setting. Will cancel PT evaluation.
[2024-07-20 16:45] LABS: Sodium 139 mMol/L (136-145)
[2024-07-20] MEDS: INSULIN GLARGINE (Lantus) 5 UNIT/0.05 ML (PER 5 UNITS) 8 UNIT SC (21:49)
[2024-07-21] VITALS (11 sets, daily range): BP systolic 93–113; BP diastolic 51–61; PULSE 64–72; RESP 14–16; TEMP 36.9–37; O2SAT 95–99
[2024-07-21 05:57] LABS: Basophils % (Auto) 1 % (0-2.5); Eosinophils # (Auto) 0.2 Thou/mm3 (0.0-0.5); Eosinophils % (Auto) 5 % (0-10); Hematocrit 27.9 % (36.0-46.0); Hemoglobin 9.4 g/dL (12.0-16.0); Immature Granulocytes % (Auto) 0 % (0-0); Immature Granulocytes Auto 0.01 Thou/mm3 (0.00-0.00); Lymphocytes # (Auto) 1.5 Thou/mm3 (1.0-4.8); Lymphocytes % (Auto) 40 % (10-50); Mean Corpuscular HGB Conc 33.7 g/dl (31.0-37.0); Mean Corpuscular Hemoglobin 35.5 pg (25.0-35.0); Mean Corpuscular Volume 105 fL (80-100); Monocytes # (Auto) 0.3 Thou/mm3 (0.0-0.8); Monocytes % (Auto) 9 % (0-12); Neutrophils # (Auto) 1.7 Thou/mm3 (1.8-7.7); Neutrophils % (Auto) 46 % (37-80); Nucleated Red Blood Cell % 0 /100 WBC (0); Platelet Count 37 Thou/mm3 (140-440); RDW Standard Deviation 60.4 fL (36.4-46.3); Red Blood Count 2.65 Miln/mm3 (4.00-5.20); White Blood Count 3.7 Thou/mm3 (3.6-11.0)
[2024-07-21 06:23] LABS: Slide Review Platelets confirmed
[2024-07-21 06:31] LABS: Alanine Aminotransferase 16 U/L (10-49); Albumin, Serum 3.2 gm/dL (3.5-5.0); Albumin/Globulin Ratio 1.1 (1.2-2.2); Alkaline Phosphatase 104 U/L (46-116); Anion Gap 9 (7-16); BUN/Creatinine Ratio 10 Ratio (12-20); Bilirubin,Total 4.2 mg/dL (0.3-1.2); Blood Urea Nitrogen 10 mg/dL (9-23); Calcium 9.4 mg/dL (8.3-10.6); Chloride 101 mMol/L (98-107); Estimated Creatinine Clearance 56.3 mL/min (>60); Glucose 134 mg/dL (74-106); Osmolality,Calculated 272 (275-295); Phosphorous 3.2 mg/dL (2.4-5.1); Potassium 4.4 mMol/L (3.4-5.1); Sodium 136 mMol/L (136-145); Total Protein 6.2 gm/dL (5.7-8.2); eGFR > 60 See Note
[2024-07-21] MEDS: LACTULOSE SYRUP 20 GM/30 ML UDC 30 GM PO (06:38)
[2024-07-21] MEDS: MIDODRINE 5 MG TABLET 10 MG PO ×2 (06:38→12:15)
[2024-07-21] MEDS: cefTRIAXone/D5w 1gm IV premix 1 GM/50 ML BAG IV (08:26)
[2024-07-21] MEDS: PANTOPRAZOLE 40 MG TABLET PO (08:26)
[2024-07-21] MEDS: rifaximin 550 MG TABLET PO (08:27)
[2024-07-21] MEDS: PROPRANOLOL 10 MG TABLET PO (08:27)
[2024-07-21] MEDS: Furosemide 20 MG TABLET PO (08:28)
[2024-07-21] MEDS: BALSAM PERU/CASTOR OIL (Venelex) 60 GM TUBE TOP (08:31)
[2024-07-21] MEDS: SPIRONOLACTONE 25 MG TABLET 50 MG PO (08:31)
[2024-07-21] MEDS: INSULIN LISPRO (AdmeLOG) 1 UNIT/0.01 ML UNIT SC (11:19)
--- NOTE | 2024-07-21 15:04 | ESDS_ITS ---
<Statement entered by Shaila Alaniz DO - 07/22/24 11:43> I, Shaila Alaniz DO, attest that I was physically present for the son portions of the service and evaluated the patient with the resident and I reviewed and discussed the case with the resident and agree with the resident's findings and plans of care as documented above <Statement entered by Ricardo Richards MD - 07/22/24 11:21> I discussed with and supervised the copywriting intern physician involved in the care of this patient. Patient assessment and plan was discussed with entire medicine team, including my attending. I agree with the assessment and plan as documented by copywriting intern doctor. Patient care was discussed with my attending physician Dr. Corbin Richards, PGY-2 Planned Discharge Date 07/21/24 DS: Providers Provider Date of admission: 07/16/24 15:31 Primary care physician: Physician Monika Primary/Family Admitting Provider: Mateo Glover DO Attending Provider on Admission: Shaila Alaniz DO Consults: 07/16/24 16:02 Consult to Nephrology Routine Comment: Hepatic enceph, AMMONIA 248 Consulting Provider: Justa Ramon 07/17/24 04:45 Referral Wound Care Routine Comment: Attending Provider on DC: Nasreen Arellano MD Discharging Provider: Nasreen Arellano MD DS: Diagnosis Problem List Completed Was Problem List Reviewed/Reconciled?: Yes Hospital Course Hospital Course Hospital course: Patient is a 53-year-old female with a previous medical history of liver cirrhosis, variceal bleeding status post band ligation, multiple recurrent admissions due to hepatic encephalopathy who was admitted due to altered mental status on 07/16/2024. In the ED she was afebrile, hemodynamically stable, sinus bradycardia, saturating well on room air. Labs showed pancytopenia, INR 1.9, ammonia 248, lactic acid 2.8. Head CT was negative for acute intracranial pathology. Chest x-ray was negative for signs of pneumonia. Her home lactulose, spironolactone, Lasix, propranolol were continued. Initially due to the encephalopathy emergent dialysis was considered but her mentation has improved, her lactulose dose was increased. Patient was seen and examined by the bedside and was medically cleared for discharge 07/21/24. Hospital diagnoses: Acute hepatic encephalopathy (improved) In setting of decompensated liver cirrhosis Mild hypomagnesemia Hypoosmotic hyponatremia Hypernatremia (resolved) Lactic acidosis Type B in settings of liver failure (resolved) Chronic bradycardia (stable) Hypertension (stable) Mild Hyperkalemia (resolved) Discharge recommendations: - Follow-up with your PCP in 1 week - Take lactulose 30 g three times a day, the goal is to have 3 bowel movements per day - Continue the rest of medications as prescribed - If your symptoms worsen, come back to the ED or call 911 Plan of care discussed with attending Dr. Alaniz, PGY-[address] Richards. Nasreen Arellano MD, PGY 1. Time Spent with Patient Time attestation: Total time spent providing and/or coordinating discharge services: Time spent: Greater than 30 minutes Exam Vital Signs Temp Pulse Resp BP Pulse Ox O2 Del Method O2 Flow Rate 98.6 F 72 14 93/51 L 96 Room Air 1 07/21/24 07:52 07/21/24 12:15 07/21/24 12:08 07/21/24 12:15 07/21/24 12:08 07/21/24 07:52 07/20/24 16:00 Narrative Exam Physical Exam General: Awake and in no acute distress. Conversational and non-toxic appearing. HEENT: Normocephalic, atraumatic, mucous membranes moist. Heart: Regular rate and rhythm, no murmurs. Lungs: Clear to auscultation with no wheezing or crackles. Abdomen: Soft, nondistended, nontender, positive bowel sounds. ?No guarding or rebound tenderness. Neurologic: Alert and oriented x3, no gross neurological deficit, and patient able to move all 4 extremities. Extremities: No edema. Skin: No rash or ecchymoses. Discharge Plan Plan Patient Disposition: Home w/HOME HEALTH Patient condition on transfer: Stable Care Plan Goals: - Follow-up with your PCP in 1 week - Take lactulose 30 g three times a day, the goal is to have 3 bowel movements per day - Continue the rest of medications as prescribed - If your symptoms worsen, come back to the ED or call 911 Prescriptions/Referrals Prescriptions/Med Rec: New lactulose 10 gram packet 30 g PO TID 90 Days Qty: 30 0RF Continued mirtazapine 15 mg tablet 15 mg PO HS 30 Days Qty: 30 2RF Rx Instructions: Take one tablet before bedtime everyday propranolol 10 mg tablet 10 mg PO BID 30 Days Qty: 60 2RF Rx Instructions: Take one tablet by mouth twice a day hydrocodone-acetaminophen 5-325 mg tablet 1 tab PO BID MDD 2 Tablets PRN (Reason: pain) 30 Days Qty: 30 0RF Rx Instructions: Take one tablet as needed twice a day for pain Xifaxan 550 mg tablet 550 mg PO BID 30 Days Qty: 60 2RF Rx Instructions: Take one tablet by mouth twice a day multivitamin Tablet 1 tab PO QDAY 30 Days Qty: 30 2RF Rx Instructions: Take one tablet by mouth every day spironolactone 25 mg tablet 50 mg PO QDAY MDD 50 mg 30 Days Qty: 60 2RF Rx Instructions: Take two tablets by mouth once a day (DME) Accu-Chek Idania Plus test strp Strip See Rx Instructions .Route Qty: 100 2RF Rx Instructions: As directed (DME) lancets [Acti-Petar Lancets] 28 gauge misc See Rx Instructions .Route Qty: 100 2RF Rx Instructions: As directed methocarbamol 750 mg Tablet 750 mg PO BID ergocalciferol (vitamin D2) [Vitamin D2] 1,250 mcg (50,000 unit) Capsule 1,250 mcg PO QWEEK midodrine 10 mg tablet 10 mg PO TID PRN (Reason: Blood pressure <100) 30 Days Qty: 60 0RF Rx Instructions: do not give last dose of day after 6PM or within 4 hrs of bedtime ferrous sulfate 300 mg (60 mg iron)/5 mL liquid 300 mg PO Q OTHER DAY 30 Days Qty: 75 0RF furosemide [Lasix] 20 mg tablet 20 mg PO QDAY Qty: 90 0RF Rx Instructions: Hold if SBP drops below 100 and DBP below 60 mmHg pantoprazole [Protonix] 40 mg tablet,delayed release (DR/EC) 40 mg PO BID Qty: 30 0RF No Action lactulose 10 gram/15 mL solution 20 g PO TID MDD 180 ml 30 Days Qty: 2700 0RF Referrals: No Primary/Family,Physician [Primary Care Provider] - Patient/Caregiver Discharge Instructions Other Discharge Activity Instructions:: Please follow up with your primary care physician within x1 week of discharge Please take your lactulose as prescribed, plan to have 3 bowel movements per day. Please take lactulose 30g three times a day If symptoms worsen please go to your nearest hospital/Emergency department Education Materials: Discharge Instructions for ..., Low Salt Diet Dc Print Language: Portuguese Stand Alone Forms: Mervat Award Info., Patient Portal Info Letter Discharge Order Discharge Orders: Discharge (Routine); Ordered 07/21/24 Ordered By: Ricardo Richards Quality Discharge Quality Measures VTE prophylaxis
--- NOTE | 2024-07-22 08:28 | PC.CC ---
Addendum entered by Judson Hughes RN 07/22/24 15:15: correct PAL is 07/24 Addendum entered by Judson Hughes RN 07/22/24 15:14: [facility] accepted and booked. [facility] 07/22 Original Note: sent HH ref to [facility] since pt is open with [facility], waiting for response
== END 2024-07-21 13:00 | disposition home health service (06) | DRG 280 ==
LOC: SERX 15:13 → SERHOLD 15:55 → S3NX 21:45
PROVIDERS: Internal Medicine; Admitting Provider Student in an Organized Health Care Education/Training Program; Emergency Provider Emergency Medicine; Visit Provider Internal Medicine
DX: K70.30 Alcoholic cirrhosis of liver without ascites (principal); K76.82 Hepatic encephalopathy; I10 Essential (primary) hypertension; R00.1 Bradycardia, unspecified; E87.5 Hyperkalemia; D61.818 Other pancytopenia; K72.10 Chronic hepatic failure without coma; E87.20 Acidosis, unspecified; E87.0 Hyperosmolality and hypernatremia; E87.1 Hypo-osmolality and hyponatremia; E83.42 Hypomagnesemia; D68.9 Coagulation defect, unspecified; D53.9 Nutritional anemia, unspecified; G93.41 Metabolic encephalopathy; Z79.899 Other long term (current) drug therapy
CPT/HCPCS: 36415; 70450; 71045; 74018; 76705; 80053; 80307; 80320; 81001; 82140; 82945; 83605; 83690; 83735; 84100; 84295; 84484; 85025; 85610; 85730; 87081; 89051; 93005; 93225; 96361; 96374; 99291; J0696; J1171; J1644; J1815; J1938; J2310; J2470; J3475; J7030; J7120; A9270; G0480

== ENCOUNTER 2024-07-26 09:37 | Outpatient (AMB) | payer MEDICAID, SELFPAY ==
--- NOTE | 2024-07-26 10:12 | PD.RESCLINIC ---
Vital Signs 07/26/24 10:13 BP 96/62 Blood Pressure Source Automatic Cuff Blood Pressure Location Right Upper Arm Position Sitting Respiration 18 Pulse 54 L Pulse Source Monitor Temp 96.5 F L Temp Source Temporal Artery Scan Pulse Oximetry (%) 97 Oxygen Delivery Method Room Air Allergies/Meds Allergies & Medications Allergies latex Allergy (Severe, Verified 07/27/24 13:11) Hives Medication Reconciliation ergocalciferol (vitamin D2) 1,250 mcg (50,000 unit) capsule (Vitamin D2) 1,250 mcg PO QWEEK 02/06/24 [History Confirmed 07/27/24] methocarbamol 750 mg tablet 750 mg PO BID 02/06/24 [History Confirmed 07/27/24] furosemide 20 mg tablet (Lasix) 20 mg PO QDAY #90 tabs 04/16/24 [Rx Confirmed 07/27/24] pantoprazole 40 mg tablet,delayed release (Protonix) 40 mg PO BID #30 tabs 06/03/24 [Rx Confirmed 07/27/24] mirtazapine 15 mg tablet 15 mg PO HS 1 month #30 tabs 06/21/24 [Rx Confirmed 07/27/24] propranolol 10 mg tablet 10 mg PO BID 1 month #60 tabs 06/21/24 [Rx Confirmed 07/27/24] ferrous sulfate 300 mg (60 mg iron)/5 mL oral liquid 300 mg (5 mL) PO Q OTHER DAY 1 month #75 mL 06/29/24 [Rx Confirmed 07/27/24] lactulose 10 gram/15 mL oral solution 20 g (30 mL) PO TID Titrate to achieve 2-3 bowel movements a day 1 month #2,700 mL 06/29/24 [Rx Confirmed 07/27/24] midodrine 10 mg tablet 10 mg PO TID PRN Blood pressure <100 1 month #60 tabs 06/29/24 [Rx Confirmed 07/27/24] multivitamin 1 tab PO QDAY 1 month #30 tabs 07/10/24 [Rx Confirmed 07/27/24] rifaximin 550 mg tablet (Xifaxan) 550 mg PO BID 1 month #60 tabs 07/10/24 [Rx Confirmed 07/27/24] spironolactone 25 mg tablet 50 mg (2 x 25 mg) PO QDAY 1 month #60 tabs 07/10/24 [Rx Confirmed 07/27/24] lactulose 10 gram oral packet 30 g PO TID 90 days #30 ea 07/20/24 [Rx Confirmed 07/27/24] blood sugar diagnostic (Accu-Chek Idania Plus test strips) #100 ea 07/23/24 [Rx Confirmed 07/27/24] hydrocodone 5 mg-acetaminophen 325 mg tablet 1 tab PO BID PRN pain #20 tabs 07/23/24 [Rx Confirmed 07/27/24] lancets 28 gauge (Acti-Petar Lancets) #100 ea 07/23/24 [Rx Confirmed 07/27/24] blood sugar diagnostic (Freestyle InsuLinx Test Strips) #100 ea 07/26/24 [Rx Confirmed 07/27/24] blood-glucose meter (FreeStyle [place] Lite kit) #1 ea 07/26/24 [Rx Confirmed 07/27/24] lancets 28 gauge (FreeStyle Lancets) #100 ea 07/26/24 [Rx Confirmed 07/27/24] scopolamine base 1 mg over 3 days transdermal patch 1 patch transdermal Q3D PRN nausea and vomiting #4 ea 07/26/24 [Rx Confirmed 07/27/24] MA Intake Visit Data Collection New Patient or Established: Established Patient (seen at [facility] within 3 years) Seen by Clinical Staff ONLY (RN/MA): No Pain Present Currently: No Pain scale:: 0 Pain Scale Used: [place]-Nash/Numerical Blocker And Cutter Contact Lens Required: No PCP or OBGYN visit in last 3 months: Yes Hx Now: No Do You Feel Safe at Home: Yes Authorities Contacted: N/A Smoking Status Smoking Status: Never smoker Immunization / Flu Flu Vaccine in the Last 12 Months: No Flu Vaccine Exclusion Criteria: No Exclusion Criteria Past Medical History Past Medical History NEUROLOGIC: Positive Neurological Disorders, Migraine and Spinal Cord Injury; Negative Seizures CARDIAC: Positive Cardiac Disorders and Hypotension; Negative Congestive Heart Failure RESPIRATORY: Negative Chronic Obstructive Pulmonary Disease (COPD) or Asthma GASTROINTESTINAL: Positive Gastrointestinal Disorders, Cirrhosis, Gastrointestinal Bleed, Esophageal Varices and Hemorrhoids GENITOURINARY: Negative Renal Disease REPRODUCTIVE: Positive Endometriosis and Previous Pregnancies ENDOCRINE: Positive Endocrine Disorders and Diabetes Mellitus Type 2; Negative Diabetes Mellitus Type 1 HEMATOLOGIC: Positive Blood Disorders and Anemia; Negative Sickle Cell Disease PSYCHO/SOCIAL: Positive Depression and Anxiety OTHER HISTORY: Positive Blood Transfusions, Chicken Pox and Measles; Negative Autoimmune Disease, Blood Transfusion Reaction, Anesthesia Reactions or Cancer Family History FAMILY HISTORY: Positive Family Psychiatric Problems and Family Cancer; Negative Family Respiratory Disorders, Family Cardiac Disorders, Family Gastrointestinal Problems, Family Surgery or Family Anesthesia Reaction Surgical History SURGICAL: Positive Section Social History SMOKING STATUS: Smoking status: Never smoker SECOND HAND EXPOSURE: second hand exposure: No ALCOHOL: Alcohol Intake: Former ALCOHOL FREQUENCY: Alcohol Intake Frequency: 3 or More Drinks per Day HOUSING: Housing: House LIVES WITH: Lives With: Family Patient Erich Thomas Social History Living Situation History Housing: House Housing Other:: Pt lives with mom and kids Tobacco History Smoking Status: Never smoker Second Hand Smoke Exposure: No Alcohol History Alcohol Intake: Former Alcohol Intake Frequency: 3 or More Drinks per Day Alcohol Intake Frequency Other:: 5 drinks a day Domestic Abuse History Do You Feel Safe at Home: Yes Review of Systems Report any current symptoms Only answer those that you have currently: Past Medical History Past Medical History Have you ever been diagnosed with any of the following: Neurological Problems Seizures: No Migraine: Yes Spinal Cord Injury: Yes Cardiology Problems Congestive Heart Failure: No Hypotension: Yes Respiratory Problems Chronic Obstructive Pulmonary Disease (COPD): No Asthma: No Stomache/Intestinal Problems Cirrhosis: Yes Gastrointestinal Bleed: Yes Esophageal Varices: Yes Hemorrhoids: Yes Genital/Urinary Problems Renal Disease: No Reproductive Problems Endometriosis: Yes Previous Pregnancies: Yes Endocrine Problems Diabetes Mellitus Type 1: No Diabetes Mellitus Type 2: Yes Blood Problems Anemia: Yes Sickle Cell Disease: No Psychologic Problems Depression: Yes Anxiety: Yes Other Problems Autoimmune Disease: No Blood Transfusions: Yes Blood Transfusion Reaction: No Anesthesia Reactions: No Chicken Pox: Yes Measles: Yes Cancer: No History of Present Illness HPI Narrative Elzbieta is a 53 y/o female with PMHx of cirrhosis and hepatic encephalopathy who comes in for hospital follow up in which she was admitted for acute on chronic hepatic encephalopathy. She reports she fees fatigued today and thinks it is because she overexerted herself today by dressing herself up. She reports a bit nausea. She has been taking her lacutolose and Rifaxmin as prescribed and has been having at least two bowel movements a day. She takes midodrine as needed. She is also requesting additional lancets and test strips for her freestyle. No other complaints at this time. Review of Systems Review of Systems Narrative Review of Systems: Constitutional: No fever, chills, weakness, weight loss, positive fatigue HEENT: No eye pain, vision loss, ear pain, hearing loss, dysphagia, Cardiovascular: No chest pain, palpitations, edema, pain with walking Respiratory: No cough, shortness of breath, wheezing GI: No NVD, abdominal pain, constipation, blood in stool, loss of appetite, heartburn Extremities: No presence of pitting edema MSK: No back pain, joint pain, joint swelling Neuro: No dizziness, numbness, weakness, headaches, seizures, tremors Psych: No anxiety, depression Objective/Exam Narrative Physical exam: General: AAOx3, NAD, appears to be frail, sitting in her wheelchair, HEENT: Moist mucous membranes, conjunctiva clear, EOMI, PERRLA, some scleral icterus bilat Cardiovascular: S1, S2, radial pulses +2 bilat, RRR Pulmonary: CTAB bilat no cough, no wheezing GI: No tenderness to light or deep palpitation, no guarding, rigidity, rebound tenderness or distension Extremities: No presence of trace or pitting edema in lower extremities bilaterally, dorsalis pedis pulses +2 bilaterally Skin: Some jaundice present throughout body Neuro: AAOx3, no focal motor or sensory deficits in the UE or LE bilat Psych: Good judgement, thought and behavior Assessment & Plan Diagnosis / Problem List (1) Hepatic encephalopathy: Status: Acute Assessment & Plan: Chronic Pt will continue to need to have 2-3 BMs a day and will need titrate lactulose as needed Plan: Lactulose 30 g TID or titrate up to 2-3 BMs a day Rifaxmin 550 mg BID Pending Liver transplant visit (2) Cirrhosis: Status: Acute Assessment & Plan: Chronic Pt continues to be weak Gave blood pressure and heart rate parameters of SBP below 100 and HR below 70 w/goal HR of 55-60 Plan: Take midodrine as needed Abstain from any hepatotoxic agents including alcohol Continue with Propanolol 10 mg BID with holding parameters Continue with Lasix and Spirnolactone (3) Nausea: Status: Acute Assessment & Plan: Could be associated with medicines and weakness Last QTC measured in July was ~480, will avoid qtc prolonging agents Plan: Scopolamine patch as needed Office Procedures [facility] Level of Care Nursing/Assessment Patient Status: Established Patient Nursing Assessment/Reassessment: Medication Reconciliation, Update PMH in EMR and Vital Signs Coordination of Care: Complex Care and Chronic Disease 1-5, Consent,records obtained, informed consent, Education Simp Pt/Fam and Staff clarify orders Established Patient Charge Established Patient Point Assignment: 85 Established Patient Point Charge: EP Level 3 (80-115)
[2024-07-26 10:13] VITALS: BP 96/62; PULSE 54; RESP 18; TEMP 35.8; O2SAT 97
== END 2024-07-26 11:01 | disposition home or self-care (01) ==
LOC: HODAHC 09:37
PROVIDERS: PCP Student in an Organized Health Care Education/Training Program; Referring Provider Student in an Organized Health Care Education/Training Program; Supervising Provider Internal Medicine
DX: K76.82 Hepatic encephalopathy (principal); K74.60 Unspecified cirrhosis of liver; R11.0 Nausea
CPT/HCPCS: 99213; G0463

== ENCOUNTER 2024-08-27 13:01 | Outpatient (AMB) | payer MEDICAID, SELFPAY ==
[2024-08-27 13:33] VITALS: BP 101/62; PULSE 68; RESP 14; TEMP 36.7; O2SAT 98
--- NOTE | 2024-08-27 13:33 | ACNOTE_ITS ---
Vital Signs 08/27/24 13:33 BP 101/62 Blood Pressure Source Automatic Cuff Blood Pressure Location Left Upper Arm Position Sitting Respiration 14 Pulse 68 Pulse Source Monitor Temp 98.1 F Temp Source Oral Pulse Oximetry (%) 98 Oxygen Delivery Method Room Air Allergies/Meds Allergies & Medications Allergies latex Allergy (Severe, Verified 08/27/24 13:36) Hives Medication Reconciliation ergocalciferol (vitamin D2) 1,250 mcg (50,000 unit) capsule (Vitamin D2) 1,250 mcg PO QWEEK 02/06/24 [History Confirmed 08/27/24] mirtazapine 15 mg tablet 15 mg PO HS 1 month #30 tabs 06/21/24 [Rx Confirmed 08/27/24] propranolol 10 mg tablet 10 mg PO BID 1 month #60 tabs 06/21/24 [Rx Confirmed 08/27/24] multivitamin 1 tab PO QDAY 1 month #30 tabs 07/10/24 [Rx Confirmed 08/27/24] rifaximin 550 mg tablet (Xifaxan) 550 mg PO BID 1 month #60 tabs 07/10/24 [Rx Confirmed 08/27/24] lactulose 10 gram oral packet 30 g PO TID 90 days #30 ea 07/20/24 [Rx Confirmed 08/27/24] blood sugar diagnostic (Accu-Chek Idania Plus test strips) #100 ea 07/23/24 [Rx Confirmed 08/27/24] lancets 28 gauge (Acti-Petar Lancets) #100 ea 07/23/24 [Rx Confirmed 08/27/24] scopolamine base 1 mg over 3 days transdermal patch 1 patch transdermal Q3D PRN nausea and vomiting #4 ea 07/26/24 [Rx Confirmed 08/27/24] blood sugar diagnostic (Freestyle InsuLinx Test Strips) #100 ea 08/10/24 [Rx Confirmed 08/27/24] blood-glucose meter (FreeStyle [place] Lite kit) #1 ea 08/10/24 [Rx Confirmed 08/27/24] hydrocodone 5 mg-acetaminophen 325 mg tablet 1 tab PO BID PRN pain #20 tabs 08/10/24 [Rx Confirmed 08/27/24] lancets 28 gauge (FreeStyle Lancets) #100 ea 08/10/24 [Rx Confirmed 08/27/24] pantoprazole 40 mg tablet,delayed release (Protonix) 40 mg PO BID #60 tabs 08/10/24 [Rx Confirmed 08/27/24] furosemide 20 mg tablet (Lasix) 20 mg PO QDAY #90 tabs 08/24/24 [Rx Confirmed 08/27/24] spironolactone 25 mg tablet 50 mg (2 x 25 mg) PO QDAY 1 month #60 tabs 08/24/24 [Rx Confirmed 08/27/24] hydrocodone 5 mg-acetaminophen 325 mg tablet 1 tab PO BID PRN pain 1 month #30 tabs 08/27/24 [Rx] metformin 500 mg tablet 500 mg PO QDAY 1 month #30 tabs 08/27/24 [Rx] methocarbamol 750 mg tablet 750 mg PO BID 1 month #60 tabs 08/27/24 [Rx] MA Intake Visit Data Collection New Patient or Established: Established Patient (seen at [facility] within 3 years) Seen by Clinical Staff ONLY (RN/MA): No Reason for Visit:: EMERGENCY ROOM FOLLOW UP Pain Present Currently: Yes Pain Location: Back Pain scale:: 9 Pain Scale Used: Crandall-Nash/Numerical Mechanical Reliability Engineer Required: No PCP or OBGYN visit in last 3 months: No Hx Now: No Do You Feel Safe at Home: Yes Authorities Contacted: N/A Smoking Status Smoking Status: Never smoker Immunization / Flu Flu Vaccine in the Last 12 Months: Yes Flu Vaccine Exclusion Criteria: No Exclusion Criteria Past Medical History Past Medical History NEUROLOGIC: Positive Neurological Disorders, Migraine and Spinal Cord Injury; Negative Seizures CARDIAC: Positive Cardiac Disorders and Hypotension; Negative Congestive Heart Failure RESPIRATORY: Negative Chronic Obstructive Pulmonary Disease (COPD) or Asthma GASTROINTESTINAL: Positive Gastrointestinal Disorders, Cirrhosis, Gastrointestinal Bleed, Esophageal Varices and Hemorrhoids GENITOURINARY: Negative Renal Disease REPRODUCTIVE: Positive Endometriosis and Previous Pregnancies ENDOCRINE: Positive Endocrine Disorders and Diabetes Mellitus Type 2; Negative Diabetes Mellitus Type 1 HEMATOLOGIC: Positive Blood Disorders and Anemia; Negative Sickle Cell Disease PSYCHO/SOCIAL: Positive Depression and Anxiety OTHER HISTORY: Positive Blood Transfusions, Chicken Pox and Measles; Negative Autoimmune Disease, Blood Transfusion Reaction, Anesthesia Reactions or Cancer Family History FAMILY HISTORY: Positive Family Psychiatric Problems and Family Cancer; Negative Family Respiratory Disorders, Family Cardiac Disorders, Family Gastrointestinal Problems, Family Surgery or Family Anesthesia Reaction Surgical History SURGICAL: Positive Section Social History SMOKING STATUS: Smoking status: Never smoker SECOND HAND EXPOSURE: second hand exposure: No ALCOHOL: Alcohol Intake: Former ALCOHOL FREQUENCY: Alcohol Intake Frequency: 3 or More Drinks per Day HOUSING: Housing: House LIVES WITH: Lives With: Family Patient Portal Questionaires PHQ-9 PHQ-2 Over the last 2 weeks, how often have you been bothered by any of the following problems? 1. Little interest or pleasure in doing things: not at all 2. Feeling down, depressed, or hopeless: not at all Total score: 0 PHQ-9 3. Trouble falling or staying asleep, or sleeping too much: Not at all 4. Feeling tired or having little energy: Not at all 5. Poor appetite or overeating: Not at all 6. Feeling bad about yourself - or that you are a failure or have let yourself or your family down: Not at all 7. Trouble concentrating on things, such as reading the newspaper or watching television: Not at all 8. Moving or speaking so slowly that other people could have noticed? - Or the opposite - being so fidgety or restless that you have been moving around a lot more than usual: not at all 9. Thoughts that you would be better off or of hurting yourself in some way: Not at all Total score: 0 Source: Developed by Drs. Shady Eli, Pilar Brunson, Jordan Worthy and colleagues, with an educational viry from [employer]. Depression screen completed yes Social History Living Situation History Housing: House Housing Other:: Pt lives with mom and kids Tobacco History Smoking Status: Never smoker Second Hand Smoke Exposure: No Alcohol History Alcohol Intake: Former Alcohol Intake Frequency: 3 or More Drinks per Day Alcohol Intake Frequency Other:: 5 drinks a day Domestic Abuse History Do You Feel Safe at Home: Yes Review of Systems Report any current symptoms Only answer those that you have currently: Past Medical History Past Medical History Have you ever been diagnosed with any of the following: Neurological Problems Seizures: No Migraine: Yes Spinal Cord Injury: Yes Cardiology Problems Congestive Heart Failure: No Hypotension: Yes Respiratory Problems Chronic Obstructive Pulmonary Disease (COPD): No Asthma: No Stomache/Intestinal Problems Cirrhosis: Yes Gastrointestinal Bleed: Yes Esophageal Varices: Yes Hemorrhoids: Yes Genital/Urinary Problems Renal Disease: No Reproductive Problems Endometriosis: Yes Previous Pregnancies: Yes Endocrine Problems Diabetes Mellitus Type 1: No Diabetes Mellitus Type 2: Yes Blood Problems Anemia: Yes Sickle Cell Disease: No Psychologic Problems Depression: Yes Anxiety: Yes Other Problems Autoimmune Disease: No Blood Transfusions: Yes Blood Transfusion Reaction: No Anesthesia Reactions: No Chicken Pox: Yes Measles: Yes Cancer: No History of Present Illness HPI Narrative Pt examined at bedside today. Pt reports she is doing well. She is requesting her muscle relaxer and norco as she says she is out of it. She reports a couple elevated readings of her sugar levels. She is continuing to improve, having 2-3 bowel movements at day on lactulose and is ambulating more. She currently has not heard back from her liver transplant team. She is complaining of mild abdominal tenderness, however, no significant distension. No other complaints at this time. Review of Systems Review of Systems Narrative Review of Systems: Constitutional: No fever, chills, fatigue, weakness, weight loss HEENT: No eye pain, vision loss, ear pain, hearing loss, dysphagia, Cardiovascular: No chest pain, palpitations, edema, pain with walking Respiratory: No cough, shortness of breath, wheezing GI: No NVD, + abdominal pain, no constipation, blood in stool, loss of appetite, heartburn Extremities: No presence of pitting edema MSK: No back pain, joint pain, joint swelling Neuro: No dizziness, numbness, weakness, headaches, seizures, tremors Psych: No anxiety, depression Objective/Exam Narrative Physical exam: General: AAOx3, NAD, appears to be frail, sitting in her wheelchair, HEENT: Moist mucous membranes, conjunctiva clear, EOMI, PERRLA, some scleral icterus bilat Cardiovascular: S1, S2, radial pulses +2 bilat, RRR Pulmonary: CTAB bilat no cough, no wheezing GI: No tenderness to light or deep palpitation, no guarding, rigidity, rebound tenderness or distension Extremities: No presence of trace or pitting edema in lower extremities bilaterally, dorsalis pedis pulses +2 bilaterally Skin: Some jaundice present throughout body Neuro: AAOx3, no focal motor or sensory deficits in the UE or LE bilat Psych: Good judgement, thought and behavior Assessment & Plan Diagnosis / Problem List (1) Cirrhosis: Status: Acute Qualifiers: Hepatic cirrhosis type: alcoholic cirrhosis Ascites presence: without ascites Qualified Code(s): K70.30 - Alcoholic cirrhosis of liver without ascites Assessment & Plan: Pt continuing to be on Rifaxmin, spirnolactone, lasix, propanolol and lactulose Having 2-3 BM a day Her mentation continues to improve carlos alberto since last visit W Plan: Repeat labs upon next visit (CMP, electrolytes, ammonia, CBC) Continue with Rifaxmin, spirnolactone, lasix, propanolol and lactulose Continue with as needed pain analgesia including [place] 5 PRN and Muscle relaxer (methocarbamol, 750 mg BID) (2) Diabetes mellitus with hyperglycemia: Status: Acute Assessment & Plan: Most recent A1c of below 5, however, has hx of DM She is continuing to improve and most likely eating more which contributed to her elevated sugar reads prior to this visit Plan: Metformin 500 mg qday A1c Orders: Orders Comprehensive Metabolic Panel Today K74.60 - Unspecified cirrhosis of liver Magnesium Today K74.60 - Unspecified cirrhosis of liver Ambulatory Hemoglobin A1C Today E11.65 - Type 2 diabetes mellitus with hyperglycemia Ammonia Today K74.60 - Unspecified cirrhosis of liver CBC Today K74.60 - Unspecified cirrhosis of liver Phosphorous Today K74.60 - Unspecified cirrhosis of liver Office Procedures [facility] Level of Care Nursing/Assessment Patient Status: Established Patient Nursing Assessment/Reassessment: Medication Reconciliation, Update PMH in EMR and Vital Signs Coordination of Care: Complex Care and Chronic Disease 1-5, Consent,records obtained, informed consent, Education Simp Pt/Fam, Lab and Imaging orders, Results/Orders obtained and Staff clarify orders Established Patient Charge Established Patient Point Assignment: 105 Established Patient Point Charge: Level 3 (80-115)
== END 2024-08-27 14:20 | disposition home or self-care (01) ==
LOC: HODAHC 13:01
PROVIDERS: Supervising Provider Internal Medicine
DX: K70.30 Alcoholic cirrhosis of liver without ascites (principal); E11.65 Type 2 diabetes mellitus with hyperglycemia; Z79.84 Long term (current) use of oral hypoglycemic drugs
CPT/HCPCS: 99213; G0463

== ENCOUNTER 2024-09-10 14:12 | Outpatient (AMB) | payer MEDICAID, SELFPAY ==
[2024-09-10 14:36] VITALS: BP 99/60; PULSE 67; RESP 17; TEMP 36.7; O2SAT 94
--- NOTE | 2024-09-10 14:36 | ACNOTE_ITS ---
Vital Signs 09/10/24 14:36 BP 99/60 Blood Pressure Source Automatic Cuff Blood Pressure Location Right Upper Arm Position Sitting Respiration 17 Pulse 67 Pulse Source Monitor Temp 98.1 F Temp Source Temporal Artery Scan Pulse Oximetry (%) 94 L Oxygen Delivery Method Room Air Allergies/Meds Allergies & Medications Allergies latex Allergy (Severe, Verified 09/10/24 14:36) Hives Medication Reconciliation propranolol 10 mg tablet 10 mg PO BID 1 month #60 tabs 06/21/24 [Rx Confirmed 09/10/24] multivitamin 1 tab PO QDAY 1 month #30 tabs 07/10/24 [Rx Confirmed 08/27/24] rifaximin 550 mg tablet (Xifaxan) 550 mg PO BID 1 month #60 tabs 07/10/24 [Rx Confirmed 08/27/24] lactulose 10 gram oral packet 30 g PO TID 90 days #30 ea 07/20/24 [Rx Confirmed 09/10/24] blood sugar diagnostic (Accu-Chek Idania Plus test strips) #100 ea 07/23/24 [Rx Confirmed 08/27/24] lancets 28 gauge (Acti-Petar Lancets) #100 ea 07/23/24 [Rx Confirmed 08/27/24] scopolamine base 1 mg over 3 days transdermal patch 1 patch transdermal Q3D PRN nausea and vomiting #4 ea 07/26/24 [Rx Confirmed 08/27/24] blood sugar diagnostic (Freestyle InsuLinx Test Strips) #100 ea 08/10/24 [Rx Confirmed 08/27/24] blood-glucose meter (FreeStyle [place] Lite kit) #1 ea 08/10/24 [Rx Confirmed 08/27/24] lancets 28 gauge (FreeStyle Lancets) #100 ea 08/10/24 [Rx Confirmed 08/27/24] furosemide 20 mg tablet (Lasix) 20 mg PO QDAY #90 tabs 08/24/24 [Rx Confirmed 09/10/24] spironolactone 25 mg tablet 50 mg (2 x 25 mg) PO QDAY 1 month #60 tabs 08/24/24 [Rx Confirmed 09/10/24] methocarbamol 750 mg tablet 750 mg PO BID 1 month #60 tabs 08/27/24 [Rx Confirmed 09/10/24] cholecalciferol (vitamin D3) 1,250 mcg (50,000 unit) tablet 1,250 mcg PO QWEEK 3 months #13 tabs 09/10/24 [Rx] hydrocodone 5 mg-acetaminophen 325 mg tablet 1 tab PO Q8H PRN pain 1 month #45 tabs 09/10/24 [Rx] metformin 1,000 mg tablet 1,000 mg PO QDAY 1 month #30 tabs 09/10/24 [Rx] mirtazapine 30 mg tablet (Remeron) 30 mg PO QHS 1 month #30 tabs 09/10/24 [Rx] pantoprazole 40 mg tablet,delayed release 40 mg PO QDAY 1 month #30 tabs 09/10/24 [Rx Confirmed 09/10/24] MA Intake Visit Data Collection New Patient or Established: Established Patient (seen at [facility] within 3 years) Seen by Clinical Staff ONLY (RN/BRIDGET): No Reason for Visit:: F\U LAB RESULTS Pain Present Currently: No Pain scale:: 0 Pain Scale Used: Crandall-Nash/Numerical [place] Program Coordinator Required: No PCP or OBGYN visit in last 3 months: Yes Date of Last PCP or OBGYN visit: 08/27/24 Hx Now: No Do You Feel Safe at Home: Yes Authorities Contacted: N/A Smoking Status Smoking Status: Never smoker Immunization / Flu Flu Vaccine in the Last 12 Months: No Flu Vaccine Exclusion Criteria: No Exclusion Criteria Past Medical History Past Medical History NEUROLOGIC: Positive Neurological Disorders, Migraine and Spinal Cord Injury; Negative Seizures CARDIAC: Positive Cardiac Disorders and Hypotension; Negative Congestive Heart Failure RESPIRATORY: Negative Chronic Obstructive Pulmonary Disease (COPD) or Asthma GASTROINTESTINAL: Positive Gastrointestinal Disorders, Cirrhosis, Gastrointestinal Bleed, Esophageal Varices and Hemorrhoids GENITOURINARY: Negative Renal Disease REPRODUCTIVE: Positive Endometriosis and Previous Pregnancies ENDOCRINE: Positive Endocrine Disorders and Diabetes Mellitus Type 2; Negative Diabetes Mellitus Type 1 HEMATOLOGIC: Positive Blood Disorders and Anemia; Negative Sickle Cell Disease PSYCHO/SOCIAL: Positive Depression and Anxiety OTHER HISTORY: Positive Blood Transfusions, Chicken Pox and Measles; Negative Autoimmune Disease, Blood Transfusion Reaction, Anesthesia Reactions or Cancer Family History FAMILY HISTORY: Positive Family Psychiatric Problems and Family Cancer; Negative Family Respiratory Disorders, Family Cardiac Disorders, Family Gastrointestinal Problems, Family Surgery or Family Anesthesia Reaction Surgical History SURGICAL: Positive Section Social History SMOKING STATUS: Smoking status: Never smoker SECOND HAND EXPOSURE: second hand exposure: No ALCOHOL: Alcohol Intake: Former ALCOHOL FREQUENCY: Alcohol Intake Frequency: 3 or More Drinks per Day HOUSING: Housing: House LIVES WITH: Lives With: Family Patient Portal Questionaires PHQ-9 PHQ-2 Over the last 2 weeks, how often have you been bothered by any of the following problems? 1. Little interest or pleasure in doing things: not at all PHQ-9 8. Moving or speaking so slowly that other people could have noticed? - Or the opposite - being so fidgety or restless that you have been moving around a lot more than usual: not at all Source: Developed by Drs. Shady Eli, Pilar Brunson, Jordan Worthy and colleagues, with an educational viry from [employer]. Social History Living Situation History Housing: House Housing Other:: Pt lives with mom and kids Tobacco History Smoking Status: Never smoker Second Hand Smoke Exposure: No Alcohol History Alcohol Intake: Former Alcohol Intake Frequency: 3 or More Drinks per Day Alcohol Intake Frequency Other:: 5 drinks a day Domestic Abuse History Do You Feel Safe at Home: Yes Review of Systems Report any current symptoms Only answer those that you have currently: Past Medical History Past Medical History Have you ever been diagnosed with any of the following: Neurological Problems Seizures: No Migraine: Yes Spinal Cord Injury: Yes Cardiology Problems Congestive Heart Failure: No Hypotension: Yes Respiratory Problems Chronic Obstructive Pulmonary Disease (COPD): No Asthma: No Stomache/Intestinal Problems Cirrhosis: Yes Gastrointestinal Bleed: Yes Esophageal Varices: Yes Hemorrhoids: Yes Genital/Urinary Problems Renal Disease: No Reproductive Problems Endometriosis: Yes Previous Pregnancies: Yes Endocrine Problems Diabetes Mellitus Type 1: No Diabetes Mellitus Type 2: Yes Blood Problems Anemia: Yes Sickle Cell Disease: No Psychologic Problems Depression: Yes Anxiety: Yes Other Problems Autoimmune Disease: No Blood Transfusions: Yes Blood Transfusion Reaction: No Anesthesia Reactions: No Chicken Pox: Yes Measles: Yes Cancer: No History of Present Illness HPI Narrative Pt examined at beside today. Pt reports she is doing well. She says that she has not had good appetite lately. She has been having 2-3 bowel movements everyday. She does endorse taking Remeron and that is a medicine she needs as she feels sad at some times. She does report needing an increase in her pain medicines as lately she has been feeling in more pain. She says her next hepatology appointment in September 28, 2024. She says her BG levels are usually 180 when she checks at home. Is requesting Vitamin D at this time. No other complaints at this time. Review of Systems Review of Systems Narrative Review of Systems: Constitutional: No fever, chills, + fatigue, no weakness, weight loss HEENT: No eye pain, vision loss, ear pain, hearing loss, dysphagia, Cardiovascular: No chest pain, palpitations, edema, pain with walking Respiratory: No cough, shortness of breath, wheezing GI: No NVD, abdominal pain, constipation, blood in stool, loss of appetite, heartburn Extremities: No presence of pitting edema MSK: No back pain, joint pain, joint swelling Neuro: No dizziness, numbness, weakness, headaches, seizures, tremors Psych: No anxiety, depression Objective/Exam Narrative Physical exam: General: AAOx3, NAD, appears to be frail, sitting in her wheelchair, HEENT: Moist mucous membranes, conjunctiva clear, EOMI, PERRLA, some scleral icterus bilat Cardiovascular: S1, S2, radial pulses +2 bilat, RRR Pulmonary: CTAB bilat no cough, no wheezing GI: No tenderness to light or deep palpitation, no guarding, rigidity, rebound tenderness or distension Extremities: No presence of trace or pitting edema in lower extremities bilaterally, dorsalis pedis pulses +2 bilaterally Skin: Some jaundice present throughout body Neuro: AAOx3, no focal motor or sensory deficits in the UE or LE bilat Psych: Good judgement, thought and behavior Assessment & Plan Diagnosis / Problem List (1) Cirrhosis of liver: Status: Acute Qualifiers: Hepatic cirrhosis type: alcoholic cirrhosis Ascites presence: without ascites Qualified Code(s): K70.30 - Alcoholic cirrhosis of liver without ascites Assessment & Plan: Pt's most recent labs have been stable T bili ~4s and Ammonia wnl. Her T bili has been around her baseline She is to see her welt wheeler next month as well Patient has been in more pain lately Her options for pain management are limited at this time due to cirrhosis and hx of varcies (avoiding NSAIDs and limiting tylenol) Will Continue with increased [place] and adjust Plan: Continue with Rifaxmin Continue with Lactulose ( 2-3 BMs a day) 30 grams TID Hepatology appointment [place] 5 up to three times a day (45 tablets) (2) Diabetes mellitus with hyperglycemia: Status: Acute Assessment & Plan: A1c 6.3 Fasting Blood sugar (~180s) Pt has been eating more and we expect her sugars to increase Will need to adjust metformin Plan: Metformin increased to 1000 mg a day Diabetic Education Continue with Accu-checks and sugar log Referral to optometry for Diabetic eye exam (3) Depression: Status: Acute Qualifiers: Depression Type: major depressive disorder Active/Remission status: currently active Major depression episode severity: mild Assessment & Plan: On remeron 15 mg Hs, this will also help her appetite Will increase this at this time Plan: Increased Remeron to 30 mg Hs (4) Vitamin D deficiency: Status: Acute Assessment & Plan: Pt complaining of fatigue Was previously of Vitamin D however stopped it because she was out of refills Plan: Continue with Vitamin D3 50k Units once a week for three months Will check vitamin D levels in three months Orders: Referrals Ophthalmology Office Procedures [facility] Level of Care Nursing/Assessment Patient Status: Established Patient Nursing Assessment/Reassessment: Medication Reconciliation, Update PMH in EMR and Vital Signs Coordination of Care: Complex Care and Chronic Disease 1-5, Consent,records obtained, informed consent, Education Simp Pt/Fam and 4+ Authorizations needed Established Patient Charge Established Patient Point Assignment: 100 Established Patient Point Charge: EP Level 3 (80-115)
== END 2024-09-10 15:58 | disposition home or self-care (01) ==
LOC: HODAHC 14:12
DX: K70.30 Alcoholic cirrhosis of liver without ascites (principal); E11.65 Type 2 diabetes mellitus with hyperglycemia; Z79.84 Long term (current) use of oral hypoglycemic drugs; F32.9 Major depressive disorder, single episode, unspecified; E55.9 Vitamin D deficiency, unspecified
CPT/HCPCS: 99213; G0463

== ENCOUNTER 2024-09-24 07:58 | Inpatient (IN) | payer MEDICAID, SELFPAY ==
[2024-09-24] VITALS (27 sets, daily range): BP systolic 85–130; BP diastolic 58–87; PULSE 70–96; RESP 12–24; TEMP 36.1–38; O2SAT 92–100; BMI 33.6; BMI 34.6
--- NOTE | 2024-09-24 08:37 | XR_ITS ---
Examination: CT abdomen with intravenous contrast CT pelvis with intravenous contrast 2-D coronal reconstructions 2-D sagittal reconstructions Date and time of exam:September 24, 2024 1149 hours INDICATIONS: Sepsis alert, pelvic pain, clinical diagnosis vulvar abscess fever vomiting constipation 3 days. CTDI: vol (mGy) 9.34 DLP: (mGycm) 546 Technique: Multiple axial sections of the abdomen and pelvis have been obtained. 64 slice high-resolution scanner used. 3 mm axial sections have been obtained, post intravenous injection 60 cc [id number] 2-D sagittal, coronal reconstructions obtained. Low dose protocols were performed. One or more of the following dose reduction techniques were used; automated exposure control, adjustment of the mA and/or KV according to patient size, use of iterative reconstruction technique. Findings: Cirrhosis, liver lobular in contour, no focal liver lesions Gallbladder wall appears thickened and edematous Significant splenomegaly No pancreatic mass 14 mm right adrenal nodule 1 mm 4 mm right renal calculi, 4 cm right renal cyst Inflammatory change around the right colon Appendix is not diagnostically visualized No bowel obstruction Anteverted atrophic uterus Urinary bladder intact Moderate osteopenia Perineal labial abscess 4.7 x 2.6 x 5.0 cm IMPRESSION: Cirrhosis Recommend hepatobiliary sonography to confirm acute acalculous cholecystitis Significant splenomegaly 14 mm right adrenal nodule, recommend elective MRI abdomen adrenal glands follow-up pre and postcontrast Inflammatory change about the right colon, clinical correlation advised Perineal/labial abscess, 4.7 x 2.6 x 5.0 cm, recommend surgical consultation
--- NOTE | 2024-09-24 08:38 | EKG_ITS ---
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
--- NOTE | 2024-09-24 08:41 | XR_ITS ---
Examination: AP chest single view TECHNIQUE: AP portable semiupright chest single view Date and time: September 24, 2024 0849 hours Comparison July 16, 2024 INDICATIONS: Sepsis alert today, fever chest pain. FINDINGS: Atelectasis versus early pneumonia left base Reduced inspiratory effort The osseous structures are intact IMPRESSION: Atelectasis versus pneumonia left base
[2024-09-24] MEDS: ACETAMINOPHEN 500 MG TABLET 1000 MG PO (08:47)
[2024-09-24] MEDS: MORPHINE SULF INJ 10 MG/ML VIAL 4 MG IVP ×2 (08:48→12:43)
[2024-09-24] MEDS: SODIUM CHLORIDE 0.9% 1000 ML 1,000 ML 500 ML IV (08:52)
[2024-09-24 09:26] LABS: Lactate (Lactic Acid) 4.9 mMol/L (0.4-2.0)
[2024-09-24 09:32] LABS: Basophils # (Auto) 0.0 Thou/mm3 (0.0-0.2); Basophils % (Auto) 1 % (0-2.5); Eosinophils # (Auto) 0.1 Thou/mm3 (0.0-0.5); Eosinophils % (Auto) 2 % (0-10); Hematocrit 31.9 % (36.0-46.0); Hemoglobin 10.9 g/dL (12.0-16.0); Immature Granulocytes Auto 0.04 Thou/mm3 (0.00-0.00); Lymphocytes # (Auto) 0.8 Thou/mm3 (1.0-4.8); Lymphocytes % (Auto) 13 % (10-50); Mean Corpuscular HGB Conc 34.2 g/dl (31.0-37.0); Mean Corpuscular Hemoglobin 36.2 pg (25.0-35.0); Mean Corpuscular Volume 106 fL (80-100); Monocytes # (Auto) 0.6 Thou/mm3 (0.0-0.8); Monocytes % (Auto) 11 % (0-12); Neutrophils # (Auto) 4.3 Thou/mm3 (1.8-7.7); Neutrophils % (Auto) 74 % (37-80); Nucleated Red Blood Cell # 0.00 Thou/mm3 (0.00-0.00); Nucleated Red Blood Cell % 0 /100 WBC (0); RDW Standard Deviation 69.1 fL (36.4-46.3); Red Blood Count 3.01 Miln/mm3 (4.00-5.20); White Blood Count 5.8 Thou/mm3 (3.6-11.0)
[2024-09-24 09:33] LABS: Collection Type, Urine Clean Catch
[2024-09-24 09:37] LABS: Platelet Count 34 Thou/mm3 (140-440)
[2024-09-24 09:39] LABS: Amorphous Crystals,Urine Present (Absent); Bacteria,Urine 1+; Bilirubin,Urine Negative (Negative); Blood,Urine 3+ (Negative); Clarity,Urine Turbid (Clear/Hazy); Color,Urine Yellow (Lt Yel-Yel); Glucose, Urine Negative (Negative); Ketones,Urine Negative (Negative); Leukocyte Esterase,Urine Positive (Negative); Nitrite,Urine Negative (Negative); PH,Urine 6.0 (5.0-7.0); Protein,Urine Trace (Neg - Trace); RBC,Urine 268 /hpf (0-3); Specific Gravity,Urine 1.029 (1.001-1.035); Squamous Epithelial Cell,Urine 1 /hpf (0-5); Urobilinogen,Urine Negative mg/dL (0.0-1.0); WBC,Urine 55 /hpf (0-5)
[2024-09-24 09:43] LABS: INR 1.5 (0.9-1.3); Partial Thromboplastin Time 36.3 Seconds (22.0-36.0); Prothrombin Time 16.3 Seconds (9.0-12.2)
--- NOTE | 2024-09-24 09:43 | PD.EDFMALE ---
ED Female Urogenital RME/HPI General Chief complaint: Urogenital-Female Stated complaint: PAIN TO GROIN Time Seen by Provider: 09/24/24 08:37 Arrival date/time: 09/24/24 07:58 RME / HPI RME / HPI Narrative: 53 year old female with history of end stage liver disease secondary alcohol use disorder, esophageal varices s/p banding, GI bleed, multiple admissions for hepatic encephalopathy presents to the ED BIBA from home for evaluation of vaginal pain beginning 2 days ago. Described as sharp stabbing in sensation located to the right side, rating as severe. Per medics, mother on scene had reported a possible prolapse. Patient denies any recent injury or trauma and adds she just completed her menses several days ago. Patient additionally reports a cough, fever, and nausea/vomiting beginning 2-3 days ago. Denies any sick contacts. Related Data Previous Rx's ?Medication ?Instructions ?Recorded propranolol 10 mg tablet 10 mg PO BID 1 month #60 tabs 06/21/24 multivitamin 1 tab PO QDAY 1 month #30 tabs 07/10/24 rifaximin 550 mg tablet (Xifaxan) 550 mg PO BID 1 month #60 tabs 07/10/24 lactulose 10 gram oral packet 30 g PO TID 90 days #30 ea 07/20/24 blood sugar diagnostic (Accu-Chek #100 ea 07/23/24 Idania Plus test strips) lancets 28 gauge (Acti-Petar #100 ea 07/23/24 Lancets) scopolamine base 1 mg over 3 days 1 patch transdermal Q3D PRN nausea 07/26/24 transdermal patch and vomiting #4 ea blood sugar diagnostic (Freestyle #100 ea 08/10/24 InsuLinx Test Strips) blood-glucose meter (FreeStyle #1 ea 08/10/24 [place] Lite kit) lancets 28 gauge (FreeStyle #100 ea 08/10/24 Lancets) furosemide 20 mg tablet (Lasix) 20 mg PO QDAY #90 tabs 08/24/24 spironolactone 25 mg tablet 50 mg (2 x 25 mg) PO QDAY 1 month 08/24/24 #60 tabs methocarbamol 750 mg tablet 750 mg PO BID 1 month #60 tabs 08/27/24 cholecalciferol (vitamin D3) 1,250 1,250 mcg PO QWEEK 3 months #13 09/10/24 mcg (50,000 unit) tablet tabs hydrocodone 5 mg-acetaminophen 325 1 tab PO Q8H PRN pain 1 month #45 09/10/24 mg tablet tabs metformin 1,000 mg tablet 1,000 mg PO QDAY 1 month #30 tabs 09/10/24 mirtazapine 30 mg tablet (Remeron) 30 mg PO QHS 1 month #30 tabs 09/10/24 pantoprazole 40 mg tablet,delayed 40 mg PO QDAY 1 month #30 tabs 09/10/24 release Allergies Allergy/AdvReac Type Severity Reaction Status Date / Time latex Allergy Severe Hives Verified 09/24/24 08:25 Review of Systems Review of Systems Systems Reviewed: All systems reviewed, normal except as documented Past Medical History Past Medical History NEUROLOGIC: Positive Neurological Disorders, Migraine and Spinal Cord Injury CARDIAC: Positive Hypotension GASTROINTESTINAL: Positive Gastrointestinal Disorders, Cirrhosis, Gastrointestinal Bleed, Esophageal Varices and Hemorrhoids GENITOURINARY: Positive Chronic Kidney Disease and Renal Disease REPRODUCTIVE: Positive Endometriosis and Previous Pregnancies MUSCULOSKELETAL: Positive Musculoskeletal Disorders ENDOCRINE: Positive Endocrine Disorders and Diabetes Mellitus Type 2 HEMATOLOGIC: Positive Blood Disorders and Anemia PSYCHO/SOCIAL: Positive Depression and Anxiety OTHER HISTORY: Positive Blood Transfusions, Chicken Pox and Measles Family History FAMILY HISTORY: Positive Family Psychiatric Problems and Family Cancer Surgical History SURGICAL: Positive Section Social History SMOKING STATUS: Never smoker SECOND HAND EXPOSURE: No SUBSTANCE USE: marijuana ED Exam Narrative Physical exam: GENERAL APPEARANCE: alert and oriented x 4, well-developed, well-nourished, uncomfortable, moaning in pain HEENT: Normocephalic, atraumatic; EOMI; mucous membranes pink, moist; oropharynx clear NECK: Supple LUNGS: CTABL HEART: Regular rate, regular rhythm ABDOMEN: non distended; normal BS; soft, lower abdominal tenderness, no guarding, no rebound; no masses, no organomegaly, no hernia : Moderately enlarged abscess present to the vulvar/vaginal region on the right side NEUROLOGIC: awake; alert and oriented x4 PSYCHIATRIC: appropriate mood and affect SKIN: warm, dry, normal color; no rashes Course Course Course Narrative: 0933: Sepsis alert activated 1230h: Patient CT is back with the following results: Cirrhosis, liver lobular in contour, no focal liver lesions Gallbladder wall appears thickened and edematous Significant splenomegaly No pancreatic mass 14 mm right adrenal nodule 1 mm 4 mm right renal calculi, 4 cm right renal cyst Inflammatory change around the right colon Appendix is not diagnostically visualized No bowel obstruction Anteverted atrophic uterus Urinary bladder intact Moderate osteopenia Perineal labial abscess 4.7 x 2.6 x 5.0 cm IMPRESSION: Cirrhosis Recommend hepatobiliary sonography to confirm acute acalculous cholecystitis Significant splenomegaly 14 mm right adrenal nodule, recommend elective MRI abdomen adrenal glands follow-up pre and postcontrast Inflammatory change about the right colon, clinical correlation advised Perineal/labial abscess, 4.7 x 2.6 x 5.0 cm, recommend surgical consultation 1233h: Spoke with Dr. Hartley regarding patient's presentation, ED course, labs, CT findings, treatment given thus far. She will be by to see patient shortly. 1238: Called residents for admission however are currently in noon conference. 1243h: Spoke with OBGYN Dr. Castellanos. Have given IV antibiotics and fluids so far. Discussed patients PMHx, HPI, ED course, exam findings, labs, and radiology results. She will come evaluate the patient. 1330h: Spoke with hospitalist team. Discussed patients PMHx, HPI, ED course, exam findings, labs, and radiology results. The hospitalist agree to accept the patient for admission. [facility] ANALYST will take patient to the OR for surgical I&D of abscess. Quality Measures Current suspected stage: severe sepsis Possible source: skin/soft tissue Blood cultures ordered: completed in ED Antibiotic ordered: No Pertinent labs: 09/24/24 09:15 Lactic Acid 4.9 H* mMol/L (0.4-2.0) Procalcitonin 0.22 ng/ml (0.0-0.49) sepsis Orders Category Date Time Status COVID-19 Screening Questionnaire NOW Care 09/24/24 13:[address] Screening NOW Care 09/24/24 08:40 Active Clean Room Technician STAT Care 09/24/24 08:38 Active Continuous Pulse Oximetry STAT Care 09/24/24 08:38 Completed Decision to Admit X1 Care 09/24/24 13:10 Completed EKG (ED ONLY) *Do not use* NOW Care 09/24/24 08:38 Completed In and Out Catheter X1PRN Care 09/24/24 08:38 Active Insert IV NOW Care 09/24/24 08:38 Active NPO STAT Care 09/24/24 08:38 Completed Strict Intake and Output Routine Care 09/24/24 08:38 Ordered Consult to General Surgery Stat Cons 09/24/24 12:[address] abd pel w con SEPSIS JONNIE Stat Exams 09/24/24 08:37 Completed EKG (ED Only) Stat Exams 09/24/24 08:38 Draft US abdomen limited Stat Exams 09/24/24 12:36 Ordered XR chest 1V SEPSIS PROTOCOL Stat Exams 09/24/24 08:41 Completed Acetaminophen Stat Lab 09/24/24 09:15 Completed Blood Culture (Lab) Stat Lab 09/24/24 09:15 Received CBC Stat Lab 09/24/24 09:15 Completed Comprehensive Metabolic Panel Stat Lab 09/24/24 09:15 Completed HCG,Qualitative Serum Stat Lab 09/24/24 09:15 Completed LDH (Lactate Dehydrogenase) Stat Lab 09/24/24 09:15 Completed Lactate (Lactic Acid) Stat Lab 09/24/24 09:15 Completed Lactic Acid, 3 HR Stat Lab 09/24/24 12:21 Ordered Lipase Stat Lab 09/24/24 09:15 Completed Magnesium Stat Lab 09/24/24 09:15 Completed Partial Thromboplastin Time Stat Lab 09/24/24 09:15 [address] Review Blood Smear Stat Lab 09/24/24 09:15 Completed Phosphorous Stat Lab 09/24/24 09:15 Completed Procalcitonin Stat Lab 09/24/24 09:15 Completed Prothrombin Time with INR Stat Lab 09/24/24 09:15 Completed Urinalysis Stat Lab 09/24/24 09:25 Completed Urine Culture Stat Lab 09/24/24 09:25 Received Wound Culture and Gram Stain Stat Lab 09/24/24 08:40 Ordered Acetaminophen Tab [Tylenol ES Tab] Med 09/24/24 08:37 Discontinued 1,000 mg PO X1 ONE Morphine Inj Med 09/24/24 11:26 Discontinued 4 mg IVP NOW ONE Morphine Inj Med 09/24/24 08:37 Discontinued 4 mg IVP X1 ONE Sodium Chloride 0.9% 1000 ml [Ns] 1,000 ml Med 09/24/24 09:39 Discontinued IV 1,000 mls/hr Sodium Chloride 0.9% 1000 ml [Ns] 1,000 ml Med 09/24/24 08:44 Discontinued IV 500 mls/hr Vancomycin/Water 1Gm Ivpb 200 ml Med 09/24/24 09:38 Discontinued IV X1 cefTRIAXone/D5w 1gm IV premix [Rocephin/D5w 1gm IV Med 09/24/24 09:39 Discontinued premix] 1 gm in 50 ml IV X1 Vital Signs Vital signs: Vital Signs Temperature 99.6 F 09/24/24 08:15 Pulse Rate 93 09/24/24 08:15 Respiratory Rate 18 09/24/24 08:15 Blood Pressure 111/76 09/24/24 08:15 Pulse Oximetry (%) 95 09/24/24 08:15 Oxygen Delivery Method Aerosol Mask 09/24/24 08:15 Urogenital - Female MDM Narrative MDM Narrative:: Sabrina Slade am scribing for and in the presence of Dr. Mckeon. Patient data External records reviewed:: [facility] previous records (I reviewed admission from 07/16/2024 through 07/21/2024 ) and EMS form Clinical information provided by:: patient and EMS Social determinants that could affect healthcare access:: none Patient has the following chronic illnesses:: End stage liver disease secondary alcohol use disorder, esophageal varices s/p banding, GI bleed, multiple admissions for hepatic encephalopathy How is presenting disease/condition affected by chronic disease/condition?: exacerbated by Evaluation data The following diagnostics were reviewed and interpreted by me:: radiology exam(s) and EKG tracing(s) (09/24/2024 @ 09:35 AM. Sinus rhythm, rate 78, no STEMI. ) Lab and/or radiology exams considered but not ordered:: None Interpretation Summary: Ordering Physician: Glenna Mckeon MD Date of Service: 09/24/24 Procedure(s): CT abd pel w con SEPSIS JONNIE Accession Number(s): [id number] cc: Aiden Drew MD; Glenna Mckeon MD; NO PRIMARY/FAMILY,PHYSICIAN~ Examination: CT abdomen with intravenous contrast CT pelvis with intravenous contrast 2-D coronal reconstructions 2-D sagittal reconstructions Date and time of exam:September 24, 2024 1149 hours INDICATIONS: Sepsis alert, pelvic pain, clinical diagnosis vulvar abscess fever vomiting constipation 3 days. CTDI: vol (mGy) 9.34 DLP: (mGycm) 546 Technique: Multiple axial sections of the abdomen and pelvis have been obtained. 64 slice high-resolution scanner used. 3 mm axial sections have been obtained, post intravenous injection 60 cc [id number] 2-D sagittal, coronal reconstructions obtained. Low dose protocols were performed. One or more of the following dose reduction techniques were used; automated exposure control, adjustment of the mA and/or KV according to patient size, use of iterative reconstruction technique. Findings: Cirrhosis, liver lobular in contour, no focal liver lesions Gallbladder wall appears thickened and edematous Significant splenomegaly No pancreatic mass 14 mm right adrenal nodule 1 mm 4 mm right renal calculi, 4 cm right renal cyst Inflammatory change around the right colon Appendix is not diagnostically visualized No bowel obstruction Anteverted atrophic uterus Urinary bladder intact Moderate osteopenia Perineal labial abscess 4.7 x 2.6 x 5.0 cm IMPRESSION: Cirrhosis Recommend hepatobiliary sonography to confirm acute acalculous cholecystitis Significant splenomegaly 14 mm right adrenal nodule, recommend elective MRI abdomen adrenal glands follow-up pre and postcontrast Inflammatory change about the right colon, clinical correlation advised Perineal/labial abscess, 4.7 x 2.6 x 5.0 cm, recommend surgical consultation Dictated By: Aiden Drew MD Signed By: <Electronically signed by Aiden Drew MD in OV> 09/24/24 1215 Ordering Physician: Glenna Mckeon MD Date of Service: 09/24/24 Procedure(s): XR chest 1V SEPSIS PROTOCOL Accession Number(s): [id number] cc: Aiden Drew MD; Glenna Mckeon MD; NO PRIMARY/FAMILY,PHYSICIAN~ Examination: AP chest single view TECHNIQUE: AP portable semiupright chest single view Date and time: September 24, 2024 0849 hours Comparison July 16, 2024 INDICATIONS: Sepsis alert today, fever chest pain. FINDINGS: Atelectasis versus early pneumonia left base Reduced inspiratory effort The osseous structures are intact IMPRESSION: Atelectasis versus pneumonia left base Dictated By: Aiden Drew MD Signed By: <Electronically signed by Aiden Drew MD in OV> 09/24/24 1001 Medications / Prescriptions Medications or Prescriptions considered but not ordered:: None Medication administrations:: Medication Administration History Albuterol/Ipratropium (Albuterol/Ipratropium (Duoneb) Rt Karis 3 Ml Nebu) 3 ml INH Q4HRRT PRN PRN Reason: WHEEZING Stop: 10/24/24 14:04 Fentanyl Citrate (Fentanyl Cit Inj 50 Mcg/Ml Amp 2ml) 25 mcg IVP Q5M PRN PRN Reason: PAIN SCALE 1-3 (mild Stop: 09/24/24 16:05 Fentanyl Citrate (Fentanyl Cit Inj 50 Mcg/Ml Amp 2ml) 50 mcg IVP Q5M PRN PRN Reason: PAIN SCALE 4-6 (Moderate Stop: 09/24/24 16:05 Hydromorphone HCl (Hydromorphone Inj 2 Mg/Ml Vial) 0.5 mg IVP Q5M PRN PRN Reason: PAIN SCALE 7-10 (Severe Stop: 09/24/24 16:05 Piperacillin/Tazobactam/Dextrose (Zosyn) 3.375 gm in 50 mls @ 12.5 mls/hr IV Q8HR CELINA; Protocol Stop: 10/01/24 21:59 Piperacillin/Tazobactam/Dextrose (Zosyn) 3.375 gm in 50 mls @ 100 mls/hr IV X1 ONE Stop: 09/24/24 15:44 Ibuprofen (Ibuprofen Tab 400 Mg Tablet) 400 mg PO Q6HR PRN PRN Reason: Fever > 100.4 Stop: 10/24/24 13:31 Ibuprofen (Ibuprofen Tab 600 Mg Tablet) 600 mg PO Q6H PRN PRN Reason: PAIN SCALE 1-3 (mild Stop: 10/24/24 13:32 Labetalol HCl (Labetalol Inj 5 Mg/Ml Vial 20 Ml) 5 mg IVP Q10MIN PRN PRN Reason: Blood Pressure - High Stop: 10/24/24 14:04 Lactulose (Lactulose Syrup 20 Gm/30 Ml Udc) 30 gm PO TID CELINA; Protocol Stop: 10/24/24 15:14 Morphine Sulfate (Morphine Sulf Inj 10 Mg/Ml Vial) 2 mg IVP Q4H PRN PRN Reason: Breakthrough Pain Stop: 09/29/24 13:32 Ondansetron HCl (Ondansetron Inj 2 Mg/Ml Inj 2 Ml) 4 mg IVP Q6H PRN; Protocol PRN Reason: NAUSEA OR VOMITING Stop: 10/24/24 13:32 Ondansetron HCl (Ondansetron Inj 2 Mg/Ml Inj 2 Ml) 4 mg IVP Q4H PRN PRN Reason: NAUSEA Stop: 10/24/24 14:04 Pharmacy Consult (Vancomycin Pharmacy To Dose 1 Each Each) 1 each IV QDAY PRN PRN Reason: CONSULT Stop: 10/24/24 14:59 Rifaximin (Rifaximin 550 Mg Tablet) 550 mg PO BID CELINA Stop: 10/01/24 20:59 Discontinued Medications Acetaminophen (Acetaminophen 500 Mg Tablet) 1,000 mg PO X1 ONE Stop: 09/24/24 08:38 Last Admin: 09/24/24 08:47 Dose: 1,000 mg Documented By: GM Bupivacaine HCl (Bupivacaine Mpf 0.5% 30 Ml Vial) Confirm Administered Dose 30 ml .ROUTE .STK-MED ONE Stop: 09/24/24 14:35 Bupivacaine HCl/Epinephrine Bitart (Bupivacaine Mpf/Epi 0.5% 30 Ml Vial 1:200,000) Confirm Administered Dose 30 ml .ROUTE .STK-MED ONE Stop: 09/24/24 14:34 Fentanyl Citrate (Fentanyl Cit Inj 50 Mcg/Ml Amp 2ml) Confirm Administered Dose 100 mcg .ROUTE .STK-MED ONE Stop: 09/24/24 14:13 Sodium Chloride (Ns) 1,000 mls @ 500 mls/hr IV .Q2H ONE Stop: 09/24/24 10:43 Last Infusion: 09/24/24 11:00 Dose: Infused Documented By: Admin: 09/24/24 08:52 Dose: 500 mls/hr Documented By: GM Vancomycin HCl (Vancomycin/Water 1gm Ivpb) 200 mls @ 120 mls/hr IV X1 ONE Stop: 09/24/24 11:17 Last Admin: 09/24/24 12:56 Dose: 120 mls/hr Documented By: GM Ceftriaxone Sodium/Dextrose (Rocephin/D5w 1gm Iv Premix) 1 gm in 50 mls @ 100 mls/hr IV X1 ONE Stop: 09/24/24 10:08 Last Infusion: 09/24/24 11:55 Dose: Infused Documented By: Admin: 09/24/24 11:22 Dose: 100 mls/hr Documented By: GM Sodium Chloride (Ns) 1,000 mls @ 1,000 mls/hr IV .Q1H ONE Stop: 09/24/24 09:43 Last Infusion: 09/24/24 12:57 Dose: Infused Documented By: Admin: 09/24/24 11:22 Dose: 1,000 mls/hr Documented By: GM Lidocaine HCl (Lidocaine Inj Pf 2% 5 Ml Vial) Confirm Administered Dose 5 ml .ROUTE .STK-MED ONE Stop: 09/24/24 14:13 Midazolam HCl (Midazolam Inj 1 Mg/Ml Vial 2 Ml) Confirm Administered Dose 2 mg .ROUTE .STK-MED ONE Stop: 09/24/24 14:46 Morphine Sulfate (Morphine Sulf Inj 10 Mg/Ml Vial) 4 mg IVP X1 ONE Stop: 09/24/24 08:38 Last Admin: 09/24/24 08:48 Dose: 4 mg Documented By: Morphine Sulfate (Morphine Sulf Inj 10 Mg/Ml Vial) 4 mg IVP NOW ONE Stop: 09/24/24 11:27 Last Admin: 09/24/24 12:43 Dose: 4 mg Documented By: Propofol (Propofol Inj 10 Mg/Ml Vial 20 Ml) Confirm Administered Dose 200 mg IV .STK-MED ONE Stop: 09/24/24 14:13 Propofol (Propofol Inj 10 Mg/Ml Vial 20 Ml) Confirm Administered Dose 200 mg IV .STK-MED ONE Stop: 09/24/24 14:46 Silver Nitrate (Silver Nitrate 1 Appl Ea) Confirm Administered Dose 2 appl TOP .STK-MED ONE Stop: 09/24/24 15:29 See above Consultations Consultation(s) initiated? (list below): Yes Consultation #1 (Physician, Specialty, Details): I spoke with surgeon Dr. Hartley as noted above. Consultation #2 (Physician, Specialty, Details): I spoke with OBGYN Dr. Castellanos as noted above Diagnosis Urogenital Female Differential Diagnosis: urinary tract infection, cyst of Bartholin's gland and other (sepsis, viral illness) Most likely diagnosis given after review of the tests above:: Labial abscess Sepsis Admission Indicated Admission indicated?: indicated Admission Request Was there a request for admission?: Yes Admission Attestation Admission request attestation: Discussed case with [] from Hospitalist service regarding admission. Discussed patients ED course, exam findings, labs, and radiology results. The Hospitalist [agrees,declines] to accept the patient for admission. Disposition Plan Disposition Plan: Admit Critical Care Time Critical Care Time Critical Care Time: Yes Total Critical Care Time (min.): 35 Attestation: The high probability of sudden, clinically significant deterioration in the patient's condition required the highest level of my preparedness to intervene urgently. The services I provided to this patient were to treat and/or prevent clinically significant deterioration. Services included the following: chart data review, reviewing nursing notes and/or old charts, documentation time, managed security sales consultant collaboration regarding findings and treatment options, medication orders and management, direct patient care, vital sign assessments and ordering, interpreting and reviewing diagnostic studies and lab tests. Aggregate critical care time includes only time during which I was engaged in work directly related to the patient's care, as described above, whether at bedside or elsewhere in the Emergency Department. It did not include time spent performing other reported procedures or the services of residents, students, nurses or physician assistants. Discharge Plan Plan Patient Disposition: Admit Acute Care w/in Hospital Problem List Clinical Impression: Labial abscess, Sepsis
[2024-09-24 09:55] LABS: Acetaminophen 14.5 mcg/mL (10.0-20.0); Alanine Aminotransferase 12 U/L (10-49); Albumin, Serum 2.7 gm/dL (3.5-5.0); Albumin/Globulin Ratio 0.7 (1.2-2.2); Alkaline Phosphatase 139 U/L (46-116); Anion Gap 9 (7-16); Aspartate Amino Transferase 29 U/L (0-34); BUN/Creatinine Ratio 13 Ratio (12-20); Bilirubin,Total 4.2 mg/dL (0.3-1.2); Blood Urea Nitrogen 15 mg/dL (9-23); Calcium 8.8 mg/dL (8.3-10.6); Calcium (Corrected) 9.8 mg/dL (8.5-10.1); Carbon Dioxide 26.0 mMol/L (20.0-31.0); Chloride 103 mMol/L (98-107); Creatinine (Component) 1.2 mg/dL (0.6-1.3); Estimated Creatinine Clearance 65.3 mL/min (>60); Globulin 3.9 gm/dL (2.3-3.5); Glucose 166 mg/dL (74-106); LDH (Lactate Dehydrogenase) 218 U/L (120-246); Lipase 19 U/L (12-53); Magnesium 1.3 mg/dL (1.6-2.6); Osmolality,Calculated 280 (275-295); Phosphorous 2.6 mg/dL (2.4-5.1); Potassium 4.6 mMol/L (3.4-5.1); Procalcitonin 0.22 ng/ml (0.0-0.49); Sodium 138 mMol/L (136-145); Total Protein 6.6 gm/dL (5.7-8.2); eGFR 54 See Note
[2024-09-24 10:09] LABS: Path Review Blood Smear Sent to Pathologist; Slide Review Platelets confirmed
[2024-09-24 11:20] LABS: HCG,Qualitative Serum Negative
[2024-09-24] MEDS: cefTRIAXone/D5w 1gm IV premix 1 GM/50 ML BAG IV (11:22)
[2024-09-24] MEDS: SODIUM CHLORIDE 0.9% 1000 ML 1,000 ML IV (11:22)
[2024-09-24 12:21] LABS: Reflex Lactate? Y
[2024-09-24] MEDS: VANCOMYCIN/WATER 1GM IVPB 200 ML IV (12:56)
--- NOTE | 2024-09-24 13:28 | ESHP_ITS ---
<Statement entered by Devyn Luna MD - 09/24/24 20:33> Patient was examined and case was reviewed with team including attending physician. Note reviewed, I agree with most of its contents and agree with the patient's care as documented by Dr. Casiano 53-year-old female with a previous medical history of liver cirrhosis, variceal bleeding status post band ligation, multiple recurrent admissions due to hepatic encephalopathy who presented to the ED for pain in her lower abdominal and genital area. She states she noticed a bump in her area that began increasing in size and became painful. Imaging studies were done and found to have right labial abscess. General surgery and were OBGYN consulted. OBGYN will take patient to OR for I&D of said abscess. Patient was also found to have confusion likely in the setting of hepatic encephalopathy. Patient was stated on IV ABx, lactulose and resumed her home medications for cirrhosis. Will evaluate post- operatively in the am. Case discussed with my attending Dr. Corbin Luna MD PGY-2 Documentation for date of: 09/24/24 HPI History of Present Illness History of present illness: Ms. Knight is a 53-year-old hemale with PMH of cirrhosis, variceal bleeding s/p band ligation, multiple recurrent admissions for hepatic encephalopathy who presented to the ED on 09/24 for right labial abscess. Patient began to notice a bump on her right labia 6 days ago, continued to progress in size. She also reports diffuse abdominal pain, abdominal distention, subjective fevers, malaise, chills for the past several days. She did not take any medications for the subjective fevers. She reports that she has had 1 episode of a labial abscess in the past for which she was hospitalized and abscess drainage was performed. She does not remember what antibiotic she was on at that time. Of note she was previously hospitalized 07/16-07/21/24 for hepatic encephalopathy. Ammonia to 48. Lactulose dose was increased. Mentation improved without dialysis. ED course: Febrile (T max 100.4), 111/76. Macrocytic anemia hgb 10.9, HCT 31.9. Thrombocytopenia 34. PT, INR, PTT elevated. 4.9. Magnesium 1.3. Total bilirubin 4.2. Alk phos 139. Albumin 2.7. Lipase WNL. hCG negative. Procal negative. UA leukocyte esterase positive, 3+ blood, RBC 268, WBC 55, amorphous crystals, 1+ bacteria. CT A/P with contrast consistent with cirrhosis, splenomegaly, 14 mm right adrenal nodule, perineal/labial abscess 4.7 X 2.6 X 5 cm. EKG NSR, HR 78, QTc 403. CXR c/f atelectasis vs PNA left base. Pending urine cx, blood cx x2. Given Tylenol, morphine 4 mg x 2, 1.5 L NS, ceftriaxone x 1. Consulted general surgery and gynecology. PMHx: Cirrhosis, variceal bleed, recurrent episodes of hepatic encephalopathy, endometriosis, DM Allergies: Latex (hives) Home meds: Spironolactone 25 mg daily Lasix 20 mg daily Lactulose 30 g TID Metformin 1000 mg daily Propranolol 10 mg BID Rifaximin 550 mg BID Methocarbamol 750 mg BID Vit D 50,000U qWeek [place] 5/325 q8h PRN Mirtazepine 30 mg QHS Pantoprazole 40 mg PO QD SgHx: Appendectomy, 2 , 2 laparoscopic procedures for endometriosis SHx: Stopped EtOH in 2023, denies tobacco, denies recreational drug use FHx: none Review of Systems Review of Systems Narrative Review of Systems: 14 point ROS negative other than HPI Exam Vital Signs Temp Pulse Resp BP Pulse Ox O2 Del Method 97.3 F 78 19 114/76 96 Room Air 09/24/24 12:33 09/24/24 12:33 09/24/24 12:33 09/24/24 12:33 09/24/24 12:33 09/24/24 12:33 Narrative Exam General: + acute distress, well nourished Eye: PERRL, EOMI, normal conjunctiva, no scleral icterus HENT: Normocephalic, atraumatic, normal hearing, moist oral mucosa Neck: Supple, non-tender, no lymphadenopathy Lungs: Clear to auscultation bilaterally, non-labored respirations, symmetric chest rise, no use of accessory muscles Heart: Normal S1 and S2, no S3 or S4 appreciated. Normal rate and regular rhythm, no murmurs, rubs gallops, or edema. Peripheral pulses intact bilaterally, capillary refill brisk distally Abdomen: Soft, non-tender, +distended, normal bowel sounds. No guarding or rebound tenderness. Musculoskeletal: Normal range of motion and strength, no tenderness or swelling. + mild asterixis b/l UE symmetric : Abscess present of the right labia, blood on pad but unclear source (labial vs cervical) Skin: Skin is warm, dry, no rashes or lesions. Neurologic: Alert, awake and oriented x3. CN II-XII grossly intact. No focal neuro deficits. No signs of meningeal irritation noted. Psychiatric: Cooperative, appropriate mood and affect Results: Labs 09/25/24 08:37 09/25/24 08:37 Labs: Short CBC 09/24/24 Range/Units 09:15 WBC 5.8 (3.6-11.0) Thou/mm3 Hgb 10.9 L (12.0-16.0) g/dL Hct 31.9 L (36.0-46.0) % Plt Count 34 L (140-440) Thou/mm3 BMP 09/24/24 09:15 Sodium 138 Potassium 4.6 Chloride 103 Carbon Dioxide 26.0 BUN 15 Creatinine 1.2 Glucose 166 H Calcium 8.8 Liver Function 09/24/24 Range/Units 09:15 Total Bilirubin 4.2 H (0.3-1.2) mg/dL AST 29 (0-34) U/L ALT 12 (10-49) U/L Alkaline Phosphatase 139 H (46-116) U/L Albumin 2.7 L (3.5-5.0) gm/dL Urine 09/24/24 Range/Units 09:25 Urine Color Yellow (Lt Yel-Yel) Urine Clarity Turbid A (Clear/Hazy) Urine pH 6.0 (5.0-7.0) Ur Specific [place] 1.029 (1.001-1.035) Urine Protein Trace (Neg - Trace) Urine Glucose (UA) Negative (Negative) Quality Measures Quality Measures sepsis Current suspected stage: sepsis Possible source: skin/soft tissue Blood cultures ordered: yes Antibiotic ordered: Yes Medications Home Medications and Allergies Allergies Allergy/AdvReac Type Severity Reaction Status Date / Time latex Allergy Severe Hives Verified 09/24/24 08:25 Visit Medications Discontinued Medications Acetaminophen (Acetaminophen 500 Mg Tablet) 1,000 mg PO X1 ONE Stop: 09/24/24 08:38 Last Admin: 09/24/24 08:47 Dose: 1,000 mg Sodium Chloride (Ns) 1,000 mls @ 500 mls/hr IV .Q2H ONE Stop: 09/24/24 10:43 Last Infusion: 09/24/24 11:00 Dose: Infused Vancomycin HCl (Vancomycin/Water 1gm Ivpb) 200 mls @ 120 mls/hr IV X1 ONE Stop: 09/24/24 11:17 Last Admin: 09/24/24 12:56 Dose: 120 mls/hr Ceftriaxone Sodium/Dextrose (Rocephin/D5w 1gm Iv Premix) 1 gm in 50 mls @ 100 mls/hr IV X1 ONE Stop: 09/24/24 10:08 Last Infusion: 09/24/24 11:55 Dose: Infused Sodium Chloride (Ns) 1,000 mls @ 1,000 mls/hr IV .Q1H ONE Stop: 09/24/24 09:43 Last Infusion: 09/24/24 12:57 Dose: Infused Morphine Sulfate (Morphine Sulf Inj 10 Mg/Ml Vial) 4 mg IVP X1 ONE Stop: 09/24/24 08:38 Last Admin: 09/24/24 08:48 Dose: 4 mg Morphine Sulfate (Morphine Sulf Inj 10 Mg/Ml Vial) 4 mg IVP NOW ONE Stop: 09/24/24 11:27 Last Admin: 09/24/24 12:43 Dose: 4 mg Assessment & Plan Plan Ms. Knight is a 53-year-old hemale with PMH of cirrhosis, variceal bleeding s/p band ligation, multiple recurrent admissions for hepatic encephalopathy who presented to the ED on 09/24 for right labial abscess. Admitted for labial abscess I&D, management of hepatic encephalopathy. #Right labial abscess Progressively getting larger x6 days. Bleeding in area, unknown if labial or cervical source. Perineal/labial abscess 4.7 x 2.6 x 5 cm Plan: - Consulted gynecology (Dr. 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 Mild asterixis b/l UE symmetric, AOx3 Stopped EtOH use 1 year ago Multiple hospital admissions for hepatic encephalopathy Plan: - Lactulose 30 g TID - Rifaximin 550 mg BID - Spironolactone 25 mg daily - Pending ammonia level #Thrombocytopenia - Chronic #Prolonged PT/INR, PTT 2/2 cirrhosis Plan - CTM with CBC daily #UTI UA +LE, 3+ blood, RBC 268, WBC 55, amorphous crystals, 1+ bacteria Plan: - Pending urine cx - Zosyn 3.375 q6h IV (09/24 - 09/28) #Elevated total bili Initial total bili 4.2 CT showed cirrhosis, requires further imaging studies to determine presence of acute acalculous cholecystitis Plan: - CTM #T2DM Home med: Metformin 1000 mg daily Plan: - SSI #Hypomagnesemia Plan: - Repelete as needed (goal Mg >2) #Right adrenal nodule [address] a/p Plan: - F/U outpatient Dispo: mgmt of abscess, hepatic encephalopathy Diet: Carb consistent Bowel Reg: lactulose 30 g TID VTE ppx: none (pt has labial vs cervical bleeding) GI ppx: pantoprazole 40 mg daily Pain mgmt: Morphine 2 mg IV q4h PRN, ibuprofen PRN Code status: Full Plan discussed with Dr. Mcrae and Dr. Corbin Casiano MD PGY1 Attending Provider Attestation/Addendum I, Shaila Alaniz DO, attest that I was physically present for the son portions of the service and evaluated the patient with the resident and I reviewed and discussed the case with the resident and agree with the resident's findings and plans of care as documented above Patient is a 53-year-old female with past medical history of alcoholic cirrhosis, esophageal varices status post banding, hepatic encephalopathy who presented to the ED due to right labial abscess. Patient states that she noted a bump and a pinprick about 6 days ago while wiping. She then noticed an increase in size. She also endorses having abdominal pain and distention. Surgery was called from ED and plans to take patient to the OR this afternoon. Patient will be admitted to med/surge. Will cover with vancomycin and Zosyn at this time. Will restart patient's home lactulose and medications once she is able to be advanced with oral diet..
--- NOTE | 2024-09-24 13:41 | ESCONSULT_ITS ---
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 She has been diagnosed with a labial abscess on CT scan measuring about 5 x 4 x 2.6 cm. Patient is very tender to touch. She has her mother at bedside. Patient states she was trying to take sitz bath's and conservative treatment but her labia has continued to get more more sore. So she came to the emergency room. She is not postmenopausal yet. She is always having irregular cycles. She is 53 years old. She does not remember the last time she had a Pap smear. Her children are 24, 18 and 17. Of note patient has end-stage liver disease secondary to alcoholic cirrhosis. Her bilirubin is 4.2. Her creatinine is 1.2. Her coags normal. Her platelets are low at 34. She is consented for an exam under anesthesia, incision and drainage of labial abscess, possible Pap smear, possible endometrial biopsy. Of note patient was noted to have some bleeding in her perineum at bedside exam, unsure where the blood was coming from. Patient was way too tender to tolerate any kind of exam in the emergency room. Of note patient denies fevers and chills and she is afebrile in the ER with no white count. 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 Her mother is at bedside in the ER. Patient answers questions appropriately. She is in a large amount of pain secondary to her labial abscess. Constitutional Constitutional: moderate distress and obese Comments: Patient is jaundiced. Her skin has a yellow appearance as does her eyes from chronic liver disease. Routine Respiratory Exam Respiratory: Present chest non-tender, lungs clear, normal breath sounds and no resp distress Routine Cardiovascular Exam Cardiovascular: Present RRR Routine Abdominal Exam Abdominal: Present soft and normoactive bowel sounds Routine Exam External: Present swelling (Left labia minora), tenderness (Left labia minora) and vulvar tenderness (Extreme vulvar tenderness with swelling and some bleeding noted) Genitals image: 2 1. 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 - Results Labs 09/24/24 09:15 09/24/24 09:15 Labs: Short CBC 09/24/24 Range/Units 09:15 WBC 5.8 (3.6-11.0) Thou/mm3 Hgb 10.9 L (12.0-16.0) g/dL Hct 31.9 L (36.0-46.0) % Plt Count 34 L (140-440) Thou/mm3 BMP 09/24/24 09:15 Sodium 138 Potassium 4.6 Chloride 103 Carbon Dioxide 26.0 BUN 15 Creatinine 1.2 Glucose 166 H Calcium 8.8 Liver Function 09/24/24 Range/Units 09:15 Total Bilirubin 4.2 H (0.3-1.2) mg/dL AST 29 (0-34) U/L ALT 12 (10-49) U/L Alkaline Phosphatase 139 H (46-116) U/L Albumin 2.7 L (3.5-5.0) gm/dL Urine 09/24/24 Range/Units 09:25 Urine Color Yellow (Lt Yel-Yel) Urine Clarity Turbid A (Clear/Hazy) Urine pH 6.0 (5.0-7.0) Ur Specific [place] 1.029 (1.001-1.035) Urine Protein Trace (Neg - Trace) Urine Glucose (UA) Negative (Negative) Assessment and Plan Assessment and plan (1) Labial abscess: Status: Acute Assessment and plan: Patient is consented for an exam under anesthesia and incision and drainage of right labial abscess. Patient is extremely tender. The risk the procedure were discussed with the patient with her mother present including the risk of bleeding infection blood transfusion and further surgery should any complications occur. I told the patient I might pack the labia depending on how big the abscess is. It is very difficult to examine the patient in the emergency room. Of note the patient states that she has given up drinking. She was diagnosed with end-stage liver disease secondary to alcoholic cirrhosis. The patient states she has not had an alcoholic beverage in a year. She will be admitted by the medicine team for her other medical problems after the labial abscess is drained. She was given vancomycin and Rocephin in the ER. (2) Cirrhosis of liver: Status: Acute Assessment and plan: Patient to be managed per the internal medicine team after a trip to the OR to drain the labial abscess. (2) Cirrhosis of liver Qualifiers: Hepatic cirrhosis type: alcoholic cirrhosis Ascites presence: without ascites Qualified Code(s): K70.30 - Alcoholic cirrhosis of liver without ascites
--- NOTE | 2024-09-24 15:36 | SUR.PHASEI ---
1536: Pt. wakes with painful stimuli then drifts back to sleep, vitals stable, breathing unlabored, no complaint of pain or nausea, peripad in place with scant amount of blood, report received from MD Lorenz and Yana CERON.
--- NOTE | 2024-09-24 16:40 | SUR.PHASEI ---
1640: Pt. still lethargic, wakes to name, answers a few questions, then drifts back to sleep, vitals stable, breathing unlabored, no complaint of pain or nausea, peripad in place with moderate amount of blood, report given to Jeremie CERON.
--- NOTE | 2024-09-24 16:40 | SUR.PHASEI ---
report received from Natasha Ortega. pt asleep but responds to voice, breathing unlabored on room air. v/s stable. pt dressing peripad cdi.
[2024-09-24] MEDS: PIPER/TAZO 3.375 GM PREMIX 3.375 GM/50 ML BAG IV ×2 (18:09→23:31)
[2024-09-24] MEDS: Magnesium Sulfate 2 GM Ivpb 2 GM/50 ML BAG IV (18:41)
[2024-09-24] MEDS: SODIUM CHLORIDE 0.9% 250 ML 250 ML 999 ML IV (18:44)
--- NOTE | 2024-09-24 19:35 | SUR.PHASEI ---
pt asleep but responds to voice, breathing unlabored on room air. v/s stable. pt dressing peripad scant bleeding noted. report called to Peter Ortega. pt will be transferred to room at this time.
[2024-09-24 21:08] LABS: Lactate (Lactic Acid) 3.5 mMol/L (0.4-2.0)
[2024-09-24 21:30] LABS: Ammonia 78 uMol/L (11-32)
[2024-09-24] MEDS: LACTULOSE SYRUP 20 GM/30 ML UDC 30 GM PO (21:46)
[2024-09-24] MEDS: MORPHINE SULF INJ 10 MG/ML VIAL 2 MG IVP (22:07)
--- NOTE | 2024-09-24 22:37 | PC.NURSE ---
Dr. Castellanos at bedside to assess patient. Per Doctor to keep quintana in at least overnight, patient states understanding.
[2024-09-25] VITALS (11 sets, daily range): BP systolic 94–110; BP diastolic 58–71; PULSE 76–89; RESP 14–97; TEMP 36.2–36.6; O2SAT 94–97
[2024-09-25 00:06] LABS: Reflex Lactate? Y
[2024-09-25 00:50] LABS: Lactic Acid, 3 HR 3.5 mMol/L (0.4-2.0)
[2024-09-25] MEDS: MORPHINE SULF INJ 10 MG/ML VIAL 2 MG IVP ×2 (05:41→11:31)
[2024-09-25] MEDS: PIPER/TAZO 3.375 GM PREMIX 3.375 GM/50 ML BAG IV ×3 (05:41→22:08)
[2024-09-25] MEDS: LACTULOSE SYRUP 20 GM/30 ML UDC 30 GM PO ×2 (05:41→14:12)
--- NOTE | 2024-09-25 07:35 | ESPR_ITS ---
<Statement entered by Devyn Luna MD - 09/25/24 14:59> Patient was examined and case was reviewed with team including attending physician. Note reviewed, I agree with most of its contents and agree with the patient's care as documented by MS Wilbur Meléndez Patient seen today at the bedside found awake, alert, orientedx3. No overnight events reported. Vitals and labs reviewed. Patient is status post incision and drainage of her right labial abscess. She does endorse some mild discomfort in the area however pain is adequately controlled at this time. Will continue to follow cultures and will continue current IV antibiotic therapy. Case discussed with my attending Dr. Corbin Luna MD PGY-2 Disclaimer: Despite multiple revisions, due to the dictation software being used, the document bellow may not be free of grammatical errors including phonetic/typographic errors. However, this does not deter from our commitment to providing health care in the patient's best interest in mind. Documentation for date of: 09/25/24 Subjective Subjective Interval history: pt is seen at bedside today. she is alert and oriented x4. Pt states that Dr. Chester Castellanos took her to the OR late last night and completed incision and drainage of abscess. Pt states that she has a little less pain since the procedure but is unsure on whether she still has bleeding from the perineum. She also states that she has some abdominal pain but believes it is due to the fact that she hasn't been using the bathroom regularly since she noticed the growth of her labial abcess. She does not have any more questions or concerns at this time. Exam Vital Signs Temp Pulse Resp BP Pulse Ox O2 Del Method O2 Flow Rate 97.8 F 85 18 98/61 94 L Room Air 2 09/25/24 04:00 09/25/24 06:22 09/25/24 06:22 09/25/24 04:00 09/25/24 04:00 09/25/24 04:00 09/24/24 16:15 Narrative Exam General: , well nourished Eye: PERRL, EOMI, normal conjunctiva, no scleral icterus HENT: Normocephalic, atraumatic, normal hearing, moist oral mucosa Neck: Supple, non-tender, no lymphadenopathy Lungs: Clear to auscultation bilaterally, non-labored respirations, symmetric chest rise, no use of accessory muscles Heart: Normal S1 and S2, no S3 or S4 appreciated. Normal rate and regular rhythm, no murmurs, rubs gallops, or edema. Peripheral pulses intact bilaterally, capillary refill brisk distally Abdomen: Soft, non-tender, +distended, normal bowel sounds. No guarding or rebound tenderness. Musculoskeletal: Normal range of motion and strength, no tenderness or swelling. + mild asterixis b/l UE symmetric : Abscess present of the right labia, blood on pad but unclear source (labial vs cervical) Skin: Skin is warm, dry, no rashes or lesions. Neurologic: Alert, awake and oriented x3. CN II-XII grossly intact. No focal neuro deficits. No signs of meningeal irritation noted. Psychiatric: Cooperative, appropriate mood and affect Objective Objective Narrative Objective Narrative: Pt is alert and oriented x4. She has clear breath sounds bilaterally and cardiac exam yields regular rate and rhythm w/o murmur. Abdomen is nontender but is distended. There is evidence of asterxis present in the bilateral UE. LE exam is unremarkable Labs 09/25/24 08:37 09/25/24 08:37 Labs: Laboratory Results - last 24 hr 09/24/24 09/24/24 09/24/24 09:15 09:25 20:40 WBC 5.8 RBC 3.01 L Hgb 10.9 L Hct 31.9 L MCV 106 H MCH 36.2 H MCHC 34.2 RDW Std Deviation 69.1 H Plt Count 34 L Neut % (Auto) 74 Lymph % (Auto) 13 [place] % (Auto) 11 Eos % (Auto) 2 Baso % (Auto) 1 Neut # (Auto) 4.3 Lymph # (Auto) 0.8 L [place] # (Auto) 0.6 Eos # (Auto) 0.1 Baso # (Auto) 0.0 Immature Gran # (Auto) 0.04 H Absolute Nucleated RBC 0.00 Immature Gran % 1 H Nucleated RBC % 0 Smear Path Review Sent to Pathologist PT 16.3 H INR 1.5 H APTT 36.3 H Sodium 138 Potassium 4.6 Chloride 103 Carbon Dioxide 26.0 Anion Gap 9 BUN 15 Creatinine 1.2 Estim Creat Clear Calc 65.3 eGFR 54 L BUN/Creatinine Ratio 13 Glucose 166 H Calculated Osmolality 280 Lactic Acid 4.9 H* 3.5 H Calcium 8.8 Corrected Calcium 9.8 Phosphorus 2.6 Magnesium 1.3 L Total Bilirubin 4.2 H AST 29 ALT 12 Alkaline Phosphatase 139 H Ammonia 78 H Lactate Dehydrogenase 218 Total Protein 6.6 Albumin 2.7 L Globulin 3.9 H Albumin/Globulin Ratio 0.7 L Lipase 19 Procalcitonin 0.22 HCG, Qual Negative Ur Collection Type Clean Catch Urine Color Yellow Urine Clarity Turbid A Urine pH 6.0 Ur Specific [place] 1.029 Urine Protein Trace Urine Glucose (UA) Negative Urine Ketones Negative Urine Blood 3+ A Urine Nitrite Negative Urine Bilirubin Negative Urine Urobilinogen (Auto) Negative Ur Leukocyte Esterase Positive Urine RBC 268 H Urine WBC 55 H Ur Squamous Epith Cells 1 Amorphous Crystals Present A Urine Bacteria 1+ A Acetaminophen 14.5 Misc Test Result Platelets confirmed 09/25/24 00:40 WBC RBC Hgb Hct MCV MCH MCHC RDW Std Deviation Plt Count Neut % (Auto) Lymph % (Auto) [place] % (Auto) Eos % (Auto) Baso % (Auto) Neut # (Auto) Lymph # (Auto) [place] # (Auto) Eos # (Auto) Baso # (Auto) Immature Gran # (Auto) Absolute Nucleated RBC Immature Gran % Nucleated RBC % Smear Path Review PT INR APTT Sodium Potassium Chloride Carbon Dioxide Anion Gap BUN Creatinine Estim Creat Clear Calc eGFR BUN/Creatinine Ratio Glucose Calculated Osmolality Lactic Acid 3.5 H Calcium Corrected Calcium Phosphorus Magnesium Total Bilirubin AST ALT Alkaline Phosphatase Ammonia Lactate Dehydrogenase Total Protein Albumin Globulin Albumin/Globulin Ratio Lipase Procalcitonin HCG, Qual Ur Collection Type Urine Color Urine Clarity Urine pH Ur Specific [place] Urine Protein Urine Glucose (UA) Urine Ketones Urine Blood Urine Nitrite Urine Bilirubin Urine Urobilinogen (Auto) Ur Leukocyte Esterase Urine RBC Urine WBC Ur Squamous Epith Cells Amorphous Crystals Urine Bacteria Acetaminophen Misc Test Result Quality Measures Quality Measures sepsis Current suspected stage: ruled out Possible source: skin/soft tissue Blood cultures ordered: yes Antibiotic ordered: Yes Assessment & Plan Assessment Current Active Medications: Generic Name Dose Route Start Last Admin Trade Name Freq PRN Reason Stop Dose Admin Dextrose 25 ml 09/24/24 16:50 Dextrose 50%-Water Inj 50 Ml Syringe IV 10/24/24 16:49 Q15MIN PRN BG 50-70 responsive npo pt Dextrose 50 ml 09/24/24 16:50 Dextrose 50%-Water Inj 50 Ml Syringe IV 10/24/24 16:49 Q15MIN PRN BG <50 OR BG <70 & pt unresponsive Glucagon 1 mg 09/24/24 16:50 Glucagon Inj 1 Mg Vial IM Q15MIN PRN BG <70, and no IV access Piperacillin/Tazobactam/Dextrose 3.375 gm in 50 mls @ 100 mls/hr 09/24/24 18:00 09/25/24 05:41 Zosyn IV 10/01/24 17:59 100 mls/hr Q6HR CELINA Administration Vancomycin/Sodium Chloride 750 mg in 150 mls @ 120 mls/hr 09/25/24 10:00 Vancomycin/Ns 750 Mg Ivpb IV 10/02/24 09:59 Q12H CELINA Protocol Ibuprofen 400 mg 09/24/24 13:32 Ibuprofen Tab 400 Mg Tablet PO 10/24/24 13:31 Q6HR PRN Fever > 100.4 Ibuprofen 600 mg 09/24/24 13:33 Ibuprofen Tab 600 Mg Tablet PO 10/24/24 13:32 Q6H PRN PAIN SCALE 1-3 (mild Insulin Human Lispro 0 unit 09/24/24 17:00 09/24/24 17:15 Insulin Lispro (Admelog) 1 Unit/0.01 Ml Unit SC 10/24/24 16:59 Not Given AC [facility] Protocol Lactulose 30 gm 09/24/24 15:15 09/25/24 05:41 Lactulose Syrup 20 Gm/30 Ml Udc PO 10/24/24 15:14 30 gm TID CELINA Administration Protocol Lidocaine HCl 5 ml 09/24/24 21:51 Lidocaine Jelly 2% 5 Ml Tube TOP 10/24/24 21:59 TID PRN PAIN SCALE 4-10(Mod-Sev Morphine Sulfate 2 mg 09/24/24 13:33 09/25/24 05:41 Morphine Sulf Inj 10 Mg/Ml Vial IVP 09/29/24 13:32 2 mg Q4H PRN Administration Breakthrough Pain Pantoprazole Sodium 40 mg 09/24/24 16:45 09/24/24 21:47 Pantoprazole 40 Mg Tablet PO 10/24/24 16:44 Not Given DAILY CELINA Pharmacy Consult 1 each 09/24/24 15:00 Vancomycin Pharmacy To Dose 1 Each Each IV 10/24/24 14:59 QDAY PRN CONSULT Rifaximin 550 mg 09/24/24 21:00 09/24/24 21:46 Rifaximin 550 Mg Tablet PO 10/01/24 20:59 550 mg BID CELINA Administration Scopolamine 1 mg 09/24/24 16:30 Scopolamine 1 Mg Tdsy TOP 10/24/24 16:29 X1 PRN nausea Spironolactone 25 mg 09/24/24 15:45 09/24/24 21:46 Spironolactone 25 Mg Tablet PO 10/24/24 15:44 Not Given DAILY CELINA Plan #Right labial abscess Perineal/labial abscess 4.7 x 2.6 x [address] Pt endorses perineum bleeding that has occured since she noticed her abscess. - Per gynecology, pt has been taken to the OR to drain abscess under anesthesia. Incision and drainage has been done and service will continue to follow and make recommendations - Vancomycin dosed by pharmacy (09/24 - ) - Zosyn 3.375 q6h IV (09/24 - 09/28) - Pending abscess cx and gram stain #UTI UA showed (+) Leukocyte esterase, 3+ blood, RBC 268, WBC 55, amorphous crystals, 1+ bacteria. Pt is currently does not have leukocytosis and is afebrile w/ no other symptoms of UTI. 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 Pt has PMH of cirrhosis and has had multiple hospital admissions for hepatic encephalopathy. Ammonia level is 78 as of 09/24. - Lactulose 30 g TID - Rifaximin 550 mg BID - Spironolactone 25 mg daily #Thrombocytopenia - Chronic #Prolonged PT/INR, PTT 2/2 cirrhosis - Daily CBC #T2DM Pt has home med Metformin 1000 mg daily. Most recent bedside glucose is 159. - SSI Attending Provider Attestation/Addendum I, Shaila Alaniz DO, attest that I was physically present for the son portions of the service and evaluated the patient with the resident and I reviewed and discussed the case with the resident and agree with the resident's findings and plans of care as documented above Pt seen and evaluated this AM. She complains of postoperative pain. She remains on Morphine IV q4h pRN. Pending cultures obtained from labial abscess. Will further narrow abx as per cultures and sensitivities. Continue with lactulose as patient often gets admitted for hepatic encephalopathy.
[2024-09-25] MEDS: INSULIN LISPRO (AdmeLOG) 1 UNIT/0.01 ML UNIT SC ×3 (07:39→17:14)
[2024-09-25] MEDS: IBUPROFEN TAB 600 MG TABLET PO (08:24)
[2024-09-25] MEDS: PANTOPRAZOLE 40 MG TABLET PO (08:25)
[2024-09-25] MEDS: SPIRONOLACTONE 25 MG TABLET PO (08:25)
--- NOTE | 2024-09-25 08:40 | PC.PT ---
PT eval received. Patient's PLOF was bed bound. Skilled PT not indicated at this time secondary to patient is at her Prior level of function. Will cancel PT evaluation.
--- NOTE | 2024-09-25 09:19 | ESOP_ITS ---
Operative Note - EXPLOSIVE ORDNANCE SPECIALIST Procedure Date of procedure: 09/24/24 Procedure Performed: Exam under anesthesia, drainage of R labial minora abscess, irrigation of bed of abscess, speculum exam Indication: 53 y/o with End Stage Liver Disease secondary to ETOH cirrhosis, DM, Coagulation abnormalities secondary to ESLD, thrombocytopenia with platelets of 34 and a painful R labial abscess with fevers, unable to be drained in the ER secondary to patient discomfort Pre-Op diagnosis: 1. Right labial abscess not responsive to conservative measures 2. Subjective Fevers/chills 3. Severe labial pain 4. End Stage Liver Disease secondary to ETOH cirrhosis 5. Severe thrombocytopenia 6. DM Post-Op diagnosis: same Anesthesia type: General Procedure description: After obtaining informed consent, the patient was brought back to the OR and general anesthesia was obtained. She was prepped and draped in a normal sterile fashion in the dorsal lithotomy position using Sabino stirrups. A quintana catheter was inserted into the patient's bladder. The patient had been given IV Vancomyci n and Rocephin in the ER prior to going to the OR. The perineum was carefully examined and the patient noted to have a 4 cm x 4 cm abscess involving the R labia minora. It was already draining bloody purulent fluid from a 1 x0.5 cm defect. A sterile swab was inserted into the defect and rotated around to break up any adhesions. The fluid was sent for culture. This area was gently compressed and all the pus was drained. A bulb suction dimension stone quarry supervisor was then filled with sterile normal saline and the bed of the abscess flushed with about 50 cc of fluid until clear blood-tinged fluid was noted. A speculum exam was then performed and the cervix was noted to be grossly normal and atrophic. This was done to ensure none of the pre op bleeding was coming from a cervical lesion. The abscess drainage site was then treated with silver nitrate to ensure excellent hemostasis. The patient was then awakened in stable condition. The patient tolerated the procedure well, sponge, lap, needle and instrument counts were correct x 2, she went to recovery extubated and in stable condition. Pathology was none. Fluids: crystalloid Fluid amount (mL): 400 Urine output (mL): 400 Specimen: other (Culture of abscess) Implants: None Estimated blood loss (ml): 20 Findings: R Labial minora abscess 4x 4 cm , already slightly draining purulent, foul- smelling serosanguenous fluid from a 1 cm defect in the medial portion of the Right Labia. Swollen indurated R labia majora without erythema. No signs of abscess tracking into R Labia Majora. Rormal, atrophic cx on speculum exam. Complications: none Surgical staff Operation Date: 09/24/24 14:15 Case Staff Anesthesiologist: Milad Lorenz Diagnosis Discharge Diagnosis (1) Labial abscess: Status: Acute (2) Diabetes mellitus with hyperglycemia: Status: Acute (3) Cirrhosis of liver: Status: Acute (4) Thrombocytopenia: Status: Acute Problem List Completed Was Problem List Reviewed/Reconciled?: Yes (3) Cirrhosis of liver Qualifiers: Hepatic cirrhosis type: alcoholic cirrhosis Ascites presence: without ascites Qualified Code(s): K70.30 - Alcoholic cirrhosis of liver without ascites
[2024-09-25] MEDS: Magnesium Sulfate 2 GM Ivpb 2 GM/50 ML BAG IV (09:31)
[2024-09-25 09:41] LABS: Lactate (Lactic Acid) 4.0 mMol/L (0.4-2.0)
[2024-09-25 09:41] LABS: Basophils # (Auto) 0.0 Thou/mm3 (0.0-0.2); Basophils % (Auto) 1 % (0-2.5); Eosinophils # (Auto) 0.2 Thou/mm3 (0.0-0.5); Eosinophils % (Auto) 3 % (0-10); Hematocrit 34.3 % (36.0-46.0); Hemoglobin 11.7 g/dL (12.0-16.0); Immature Granulocytes Auto 0.05 Thou/mm3 (0.00-0.00); Lymphocytes # (Auto) 1.1 Thou/mm3 (1.0-4.8); Lymphocytes % (Auto) 17 % (10-50); Mean Corpuscular HGB Conc 34.1 g/dl (31.0-37.0); Mean Corpuscular Hemoglobin 36.6 pg (25.0-35.0); Mean Corpuscular Volume 107 fL (80-100); Monocytes # (Auto) 0.6 Thou/mm3 (0.0-0.8); Monocytes % (Auto) 9 % (0-12); Neutrophils # (Auto) 4.4 Thou/mm3 (1.8-7.7); Neutrophils % (Auto) 70 % (37-80); Nucleated Red Blood Cell # 0.00 Thou/mm3 (0.00-0.00); Nucleated Red Blood Cell % 0 /100 WBC (0); RDW Standard Deviation 70.4 fL (36.4-46.3); Red Blood Count 3.20 Miln/mm3 (4.00-5.20); White Blood Count 6.3 Thou/mm3 (3.6-11.0)
[2024-09-25 09:58] LABS: Glucose Estimated Average 126 mg/dL (80-131); Hemoglobin A1C 6.0 % Hgb (4.8-6.0); Platelet Count 29 Thou/mm3 (140-440)
[2024-09-25] MEDS: VANCOMYCIN/NS 750 MG IVPB 750 MG/150 ML BAG 120 MG IV ×2 (10:01→22:10)
[2024-09-25 10:02] LABS: Alanine Aminotransferase 12 U/L (10-49); Albumin, Serum 2.6 gm/dL (3.5-5.0); Albumin/Globulin Ratio 0.7 (1.2-2.2); Alkaline Phosphatase 137 U/L (46-116); Anion Gap 12 (7-16); Aspartate Amino Transferase 30 U/L (0-34); BUN/Creatinine Ratio 9 Ratio (12-20); Bilirubin,Total 4.2 mg/dL (0.3-1.2); Blood Urea Nitrogen 10 mg/dL (9-23); Calcium 8.6 mg/dL (8.3-10.6); Calcium (Corrected) 9.7 mg/dL (8.5-10.1); Carbon Dioxide 19.0 mMol/L (20.0-31.0); Chloride 106 mMol/L (98-107); Creatinine (Component) 1.1 mg/dL (0.6-1.3); Estimated Creatinine Clearance 53.8 mL/min (>60); Globulin 4.0 gm/dL (2.3-3.5); Glucose 171 mg/dL (74-106); Magnesium 1.8 mg/dL (1.6-2.6); Osmolality,Calculated 276 (275-295); Phosphorous 2.5 mg/dL (2.4-5.1); Potassium 4.6 mMol/L (3.4-5.1); Sodium 137 mMol/L (136-145); Total Protein 6.6 gm/dL (5.7-8.2); eGFR > 60 See Note
--- NOTE | 2024-09-25 10:04 | PC.SS ---
Patient Elzbieta Knight is a 53 year-old female who was admitted for Labial Abscess. SS met with patient and patient's mother at bedside. SS introduced self, role, and reason for visit. Patient appeared alert and oriented to self, location, and situation. Patient was pleasant and engaged in initial assessment. Patient confirmed information on demographics. Per patient, her medical decision maker is her mother Gemma Knight . At home patient ambulates with assistance of a wheelchair, patient also has 3 in 1 commode, Rollator walker and FWW. Patient needs assistance in completing her ADLs. Patient's mother assist with help with ADLs. Patient's PCP is at the [facility]. At time of discharge patient wishes to return back home, family will provide transportation. Discharge plan: Home next of kin: Mother, Bridgett Menendez
--- NOTE | 2024-09-25 10:12 | ESPR_ITS ---
Documentation for date of: 09/24/24 2200 WINDING INSPECTOR AND TESTER Subjective Subjective Interval history: The patient was seen for a post op check about 2200 on 09/24/24 after going to the OR around 1500 on 09/24/24 for a drainage of a right labial minora abscess. When I rounded with the RN at bedside, the patient stated she was feeling better. She had a quintana in place draining yellow-orange clear urine. She was tolerating a clear liquid diet but was requesting IV morphine for pain. She wanted her quintana removed by was requesting the Purewick system be applied. I asked how she voids at home and she stated her mom helps her to the commode , I explained the Purewick migh increase her risk of infection as it would lead to wetness around a fresh abscess. I recommended leaving the catheter in o/n then getting the patient up to void in a bedside commode in the am. Pt is on IV zosyn. Subjective: patient reports feeling better and patient is tolerating oral intake Exam Vital Signs Temp Pulse Resp BP Pulse Ox O2 Del Method O2 Flow Rate 97.5 F 89 14 109/68 95 Room Air 2 09/25/24 08:00 09/25/24 08:25 09/25/24 08:00 09/25/24 08:25 09/25/24 08:00 09/25/24 08:00 09/24/24 16:15 Narrative Exam TM 100.4 at 8 am on 09/24/24. Pt is resting comfotably in bed, rubbing her beverly up off twith a face cloth. Routine Exam Patient deferred: perineal exam External: Present vulvar tenderness (R labial majora swelling, some clear blood on pad, minimal with no odor. No recurrent labial minora abscess) Urinary Catheter Management Cath placed during this visit: yes, but has since been removed by the nurse Urethral indwelling: Yes Reason for Continuing: Measure accurate output Insertion date: 09/24/24 Insertion time: 15:00 Removal date: 09/25/24 WINDING INSPECTOR AND TESTER - PN: Obj Data Labs 09/25/24 08:37 09/25/24 08:37 Labs: Laboratory Results - last 24 hr 09/24/24 09/24/24 09/25/24 09:15 20:40 00:40 WBC RBC Hgb Hct MCV MCH MCHC RDW Std Deviation Plt Count Neut % (Auto) Lymph % (Auto) [place] % (Auto) Eos % (Auto) Baso % (Auto) Neut # (Auto) Lymph # (Auto) [place] # (Auto) Eos # (Auto) Baso # (Auto) Immature Gran # (Auto) Absolute Nucleated RBC Immature Gran % Nucleated RBC % Sodium Potassium Chloride Carbon Dioxide Anion Gap BUN Creatinine Estim Creat Clear Calc eGFR BUN/Creatinine Ratio Glucose Estimated Ave Glu mg/dL Hemoglobin A1c Calculated Osmolality Lactic Acid 3.5 H 3.5 H Calcium Corrected Calcium Phosphorus Magnesium Total Bilirubin AST ALT Alkaline Phosphatase Ammonia 78 H Total Protein Albumin Globulin Albumin/Globulin Ratio HCG, Qual Negative 09/25/24 09/25/24 08:37 08:57 WBC 6.3 RBC 3.20 L Hgb 11.7 L Hct 34.3 L MCV 107 H MCH 36.6 H MCHC 34.1 RDW Std Deviation 70.4 H Plt Count 29 L* Neut % (Auto) 70 Lymph % (Auto) 17 [place] % (Auto) 9 Eos % (Auto) 3 Baso % (Auto) 1 Neut # (Auto) 4.4 Lymph # (Auto) 1.1 [place] # (Auto) 0.6 Eos # (Auto) 0.2 Baso # (Auto) 0.0 Immature Gran # (Auto) 0.05 H Absolute Nucleated RBC 0.00 Immature Gran % 1 H Nucleated RBC % 0 Sodium 137 Potassium 4.6 Chloride 106 Carbon Dioxide 19.0 L Anion Gap 12 BUN 10 Creatinine 1.1 Estim Creat Clear Calc 53.8 L eGFR > 60 BUN/Creatinine Ratio 9 L Glucose [address] Glu mg/dL 126 Hemoglobin A1c 6.0 Calculated Osmolality 276 Lactic Acid 4.0 H Calcium 8.6 Corrected Calcium 9.7 Phosphorus 2.5 Magnesium 1.8 Total Bilirubin 4.2 H AST 30 ALT 12 Alkaline Phosphatase 137 H Ammonia Total Protein 6.6 Albumin 2.6 L Globulin 4.0 H Albumin/Globulin Ratio 0.7 L HCG, Qual WINDING INSPECTOR AND TESTER - A/P Assessment and plan (1) Labial abscess: Start date: 09/24/24 Start time: 10:28 Problem details: POD #0 EUA/ drainage /flush out i0f labial abscess in the OR. Lidocaine jelly PRN pain. DC catheter POD #1, NO PUREWICK. Pt to get up to commode. Explained her labia majora on the right will be swollen but there was no sign of an abscess. Pt has very little albumin present due to liver dysfunction and will develop dependent edema. If DC home, OK for doxycyline 100 mg PO BID x 7 days if OK with all her other meds. Pt needs to ambulate, may need a PT consult. Status: Acute (2) Diabetes mellitus with hyperglycemia: Status: Acute (3) Cirrhosis of liver: Problem details: Pt with ESLD. Sober one year. May be a candidate for a liver transplant. Her mom tried to get her evaluated at [facility] but she fell through the cracks. Pt may be able to go through [facility] Hepatology to see if she qualifies for transplant. She is only 53 years old. She very much needs a social work consult and possible end of life discussion. She has to want to live and get better to qualify for a transplant and I tried to bring this up to the patient and her mother. Right now, she seems to have little mobility and does not seem too motivated to get better. Status: Acute (4) Thrombocytopenia: Status: Acute Postoperative Procedures: Procedures Operation Date: 09/24/24 14:15 Actual Procedure Side Surgeon p Exam Under Anesthesia, Incision and Drainage of Vulvar Abscess Alicia Castellanos ([facility]), Postoperative day: 0 Postoperative status: doing well Postoperative plan: routine post-op care, ambulate, advance diet and other (Remove quintana POD #1) Time Spent With Patient Time: Total time spent is greater than 50% in coordination of care (as documented) at patient's floor/unit and/or counseling patient: Time with patient: Greater than 35 minutes
--- NOTE | 2024-09-25 10:39 | CHAP ---
Patient was visited by a Spiritual Care Volunteer on 09/25/2024 between 0900 and 0945 and received comfort, encouragement and/or prayer.
[2024-09-25 12:37] LABS: Reflex Lactate? Y
[2024-09-25 14:23] LABS: Lactic Acid, 3 HR 3.4 mMol/L (0.4-2.0)
[2024-09-25 14:46] LABS: Slide Review Platelets confirmed
[2024-09-26] VITALS (9 sets, daily range): BP systolic 98–117; BP diastolic 58–82; PULSE 60–100; RESP 16–20; TEMP 36.3–36.8; O2SAT 93–98
[2024-09-26] MEDS: MORPHINE SULF INJ 10 MG/ML VIAL 2 MG IVP ×3 (03:58→19:38)
[2024-09-26] MEDS: LACTULOSE SYRUP 20 GM/30 ML UDC 30 GM PO ×2 (06:15→14:27)
[2024-09-26] MEDS: PIPER/TAZO 3.375 GM PREMIX 3.375 GM/50 ML BAG IV (06:15)
[2024-09-26 06:40] LABS: Basophils # (Auto) 0.0 Thou/mm3 (0.0-0.2); Basophils % (Auto) 1 % (0-2.5); Eosinophils # (Auto) 0.2 Thou/mm3 (0.0-0.5); Eosinophils % (Auto) 5 % (0-10); Hematocrit 31.2 % (36.0-46.0); Hemoglobin 10.5 g/dL (12.0-16.0); Immature Granulocytes Auto 0.05 Thou/mm3 (0.00-0.00); Lymphocytes # (Auto) 0.8 Thou/mm3 (1.0-4.8); Lymphocytes % (Auto) 21 % (10-50); Mean Corpuscular HGB Conc 33.7 g/dl (31.0-37.0); Mean Corpuscular Hemoglobin 35.8 pg (25.0-35.0); Mean Corpuscular Volume 107 fL (80-100); Monocytes # (Auto) 0.4 Thou/mm3 (0.0-0.8); Monocytes % (Auto) 11 % (0-12); Neutrophils # (Auto) 2.3 Thou/mm3 (1.8-7.7); Neutrophils % (Auto) 61 % (37-80); Nucleated Red Blood Cell # 0.00 Thou/mm3 (0.00-0.00); Nucleated Red Blood Cell % 0 /100 WBC (0); RDW Standard Deviation 68.3 fL (36.4-46.3); Red Blood Count 2.93 Miln/mm3 (4.00-5.20); White Blood Count 3.7 Thou/mm3 (3.6-11.0)
[2024-09-26 07:09] LABS: Alanine Aminotransferase 13 U/L (10-49); Albumin, Serum 2.6 gm/dL (3.5-5.0); Albumin/Globulin Ratio 0.7 (1.2-2.2); Alkaline Phosphatase 122 U/L (46-116); Anion Gap 6 (7-16); Aspartate Amino Transferase 32 U/L (0-34); BUN/Creatinine Ratio 8 Ratio (12-20); Bilirubin,Total 3.6 mg/dL (0.3-1.2); Blood Urea Nitrogen 9 mg/dL (9-23); Calcium 9.1 mg/dL (8.3-10.6); Calcium (Corrected) 10.2 mg/dL (8.5-10.1); Carbon Dioxide 25.9 mMol/L (20.0-31.0); Chloride 106 mMol/L (98-107); Creatinine (Component) 1.1 mg/dL (0.6-1.3); Estimated Creatinine Clearance 53.8 mL/min (>60); Globulin 3.7 gm/dL (2.3-3.5); Glucose 133 mg/dL (74-106); Magnesium 2.2 mg/dL (1.6-2.6); Osmolality,Calculated 276 (275-295); Phosphorous 2.5 mg/dL (2.4-5.1); Potassium 4.4 mMol/L (3.4-5.1); Sodium 138 mMol/L (136-145); Total Protein 6.3 gm/dL (5.7-8.2); eGFR > 60 See Note
[2024-09-26] MEDS: PANTOPRAZOLE 40 MG TABLET PO (08:35)
[2024-09-26] MEDS: SPIRONOLACTONE 25 MG TABLET PO (08:35)
[2024-09-26 08:37] LABS: Platelet Count 28 Thou/mm3 (140-440)
[2024-09-26 10:02] LABS: Vancomycin,Trough 14.4 mcg/mL (5.0-10.0)
[2024-09-26 10:14] LABS: Slide Review Platelets confirmed
[2024-09-26] MEDS: VANCOMYCIN/NS 750 MG IVPB 750 MG/150 ML BAG 120 MG IV (10:36)
[2024-09-26] MEDS: INSULIN LISPRO (AdmeLOG) 1 UNIT/0.01 ML UNIT SC (11:32)
--- NOTE | 2024-09-26 12:18 | XR_ITS ---
Examination: Abdomen sonogram, Limited Date and time of exam: September 26, 2024 at 1226 hours INDICATIONS: Abdominal pain beginning one week ago, gallbladder wall appears thickened and edematous on CT abdomen pelvis study September 24, 2024 Technique: Real-time sifuentes scale transabdominal sonographic images of the upper abdomen obtained. Findings: Negative for gallstones Gallbladder wall 0.5 cm Common bile duct 0.3 cm Pancreas obscured by bowel gas Liver 12.3 cm no liver lesions Normal hepatopedal portal venous flow Patent IVC IMPRESSION: Abnormal thickening of the gallbladder wall, consider HIDA scan or MRCP follow-up
--- NOTE | 2024-09-26 13:27 | ESPR_ITS ---
Subjective Subjective Interval history: labial abscess. cirrhosis. Exam Vital Signs Temp Pulse Resp BP Pulse Ox O2 Del Method O2 Flow Rate 97.3 F 100 18 98/69 96 Room Air 2 09/26/24 11:49 09/26/24 11:49 09/26/24 11:49 09/26/24 11:49 09/26/24 11:49 09/26/24 11:49 09/24/24 16:15 Objective - Internal Medicine Labs 09/28/24 05:20 09/28/24 05:20 Labs: Laboratory Results - last 24 hr 09/25/24 09/25/24 09/26/24 08:37 13:55 05:45 WBC 3.7 D RBC 2.93 L Hgb 10.5 L Hct 31.2 L MCV 107 H MCH 35.8 H MCHC 33.7 RDW Std Deviation 68.3 H Plt Count 28 L* Neut % (Auto) 61 Lymph % (Auto) 21 [place] % (Auto) 11 Eos % (Auto) 5 Baso % (Auto) 1 Neut # (Auto) 2.3 Lymph # (Auto) 0.[address] [place] # (Auto) 0.4 Eos # (Auto) 0.2 Baso # (Auto) 0.0 Immature Gran # (Auto) 0.05 H Absolute Nucleated RBC 0.00 Immature Gran % 1 H Nucleated RBC % 0 Sodium 138 Potassium 4.4 Chloride 106 Carbon Dioxide 25.9 Anion Gap 6 L BUN 9 Creatinine 1.1 Estim Creat Clear Calc 53.8 L eGFR > 60 BUN/Creatinine Ratio 8 L Glucose 133 H Calculated Osmolality 276 Lactic Acid 3.4 H Calcium 9.1 Corrected Calcium 10.2 H Phosphorus 2.5 Magnesium 2.2 Total Bilirubin 3.6 H D AST 32 ALT 13 Alkaline Phosphatase 122 H Total Protein 6.3 Albumin 2.6 L Globulin 3.7 H Albumin/Globulin Ratio 0.7 L Vancomycin Trough Misc Test Result Platelets confirmed Platelets confirmed 09/26/24 08:52 WBC RBC Hgb Hct MCV MCH MCHC RDW Std Deviation Plt Count Neut % (Auto) Lymph % (Auto) [place] % (Auto) Eos % (Auto) Baso % (Auto) Neut # (Auto) Lymph # (Auto) [place] # (Auto) Eos # (Auto) Baso # (Auto) Immature Gran # (Auto) Absolute Nucleated RBC Immature Gran % Nucleated RBC % Sodium Potassium Chloride Carbon Dioxide Anion Gap BUN Creatinine Estim Creat Clear Calc eGFR BUN/Creatinine Ratio Glucose Calculated Osmolality Lactic Acid Calcium Corrected Calcium Phosphorus Magnesium Total Bilirubin AST ALT Alkaline Phosphatase Total Protein Albumin Globulin Albumin/Globulin Ratio Vancomycin Trough 14.4 H Misc Test Result Assessment & Plan A&P Narrative labial abscess. cirrhosis changed to po levaquin. f/u with outpt primary. no need to see id home at your discretion no dose change advised as rx relatively short , thru Tuesday of coming week. Time Spent With Patient Time: Total time spent is greater than 50% in coordination of care (as documented) at patient's floor/unit and/or counseling patient:
--- NOTE | 2024-09-26 14:03 | ESPR_ITS ---
<Statement entered by Devyn Luna MD - 09/26/24 17:44> Patient was examined and case was reviewed with team including attending physician. Note reviewed, I agree with most of its contents and agree with the patient's care as documented by MS Wilbur Meléndez Patient seen today at the bedside found awake, alert, orientedx3. No overnight events reported. Vitals and labs reviewed. Continues to report abdominal pain in the upper quadrants. Liver ultrasound was ordered which was inconclusive therefore we pursued HIDA scan to rule out acute cholecystitis. Case discussed with my attending Dr. Seymour Luna MD PGY-2 Disclaimer: Despite multiple revisions, due to the dictation software being used, the document bellow may not be free of grammatical errors including phonetic/typographic errors. However, this does not deter from our commitment to providing health care in the patient's best interest in mind. Documentation for date of: 09/26/24 Subjective Subjective Interval history: pt is seen at bedside today and is alert and oriented x4. She states that she feels like her swelling is going down near her procedure site and she is able to use the restroom without having pain in the region. She states that she has been having episodes of abdominal pain in her RUQ that makes it difficult to move around. She describes that pain as sharp and constant. She states that she has had pain in this region for a while but it appears increased in comparison to baseline for the past 2 days. Pt does not have any further concerns or questions at this time. Exam Vital Signs Temp Pulse Resp BP Pulse Ox O2 Del Method O2 Flow Rate 97.3 F 100 18 98/69 96 Room Air 2 09/26/24 11:49 09/26/24 11:49 09/26/24 11:49 09/26/24 11:49 09/26/24 11:49 09/26/24 11:49 09/24/24 16:15 Narrative Exam General: , well nourished Eye: PERRL, EOMI, normal conjunctiva, no scleral icterus HENT: Normocephalic, atraumatic, normal hearing, moist oral mucosa Neck: Supple, non-tender, no lymphadenopathy Lungs: Clear to auscultation bilaterally, non-labored respirations, symmetric chest rise, no use of accessory muscles Heart: Normal S1 and S2, no S3 or S4 appreciated. Normal rate and regular rhythm, no murmurs, rubs gallops, or edema. Peripheral pulses intact bilaterally, capillary refill brisk distally Abdomen: Soft, non-tender, +distended, normal bowel sounds. No guarding or rebound tenderness. Musculoskeletal: Normal range of motion and strength, no tenderness or swelling. + mild asterixis b/l UE symmetric : Abscess present of the right labia, blood on pad but unclear source (labial vs cervical) Skin: Skin is warm, dry, no rashes or lesions. Neurologic: Alert, awake and oriented x3. CN II-XII grossly intact. No focal neuro deficits. No signs of meningeal irritation noted. Psychiatric: Cooperative, appropriate mood and affect Objective Labs 09/27/24 04:43 09/27/24 04:43 Labs: Laboratory Results - last 24 hr 09/25/24 09/25/24 09/26/24 08:37 13:55 05:45 WBC 3.7 D RBC 2.93 L Hgb 10.5 L Hct 31.2 L MCV 107 H MCH 35.8 H MCHC 33.7 RDW Std Deviation 68.3 H Plt Count 28 L* Neut % (Auto) 61 Lymph % (Auto) 21 [place] % (Auto) 11 Eos % (Auto) 5 Baso % (Auto) 1 Neut # (Auto) 2.3 Lymph # (Auto) 0.8 L [place] # (Auto) 0.4 Eos # (Auto) 0.2 Baso # (Auto) 0.0 Immature Gran # (Auto) 0.05 H Absolute Nucleated RBC 0.00 Immature Gran % 1 H Nucleated RBC % 0 Sodium 138 Potassium 4.4 Chloride 106 Carbon Dioxide 25.9 Anion Gap 6 L BUN 9 Creatinine 1.1 Estim Creat Clear Calc 53.8 L eGFR > 60 BUN/Creatinine Ratio 8 L Glucose 133 H Calculated Osmolality 276 Lactic Acid 3.4 H Calcium 9.1 Corrected Calcium 10.2 H Phosphorus 2.5 Magnesium 2.2 Total Bilirubin 3.6 H D AST 32 ALT 13 Alkaline Phosphatase 122 H Total Protein 6.3 Albumin 2.6 L Globulin 3.7 H Albumin/Globulin Ratio 0.7 L Vancomycin Trough Misc Test Result Platelets confirmed Platelets confirmed 09/26/24 08:52 WBC RBC Hgb Hct MCV MCH MCHC RDW Std Deviation Plt Count Neut % (Auto) Lymph % (Auto) [place] % (Auto) Eos % (Auto) Baso % (Auto) Neut # (Auto) Lymph # (Auto) [place]irt # (Auto) Eos # (Auto) Baso # (Auto) Immature Gran # (Auto) Absolute Nucleated RBC Immature Gran % Nucleated RBC % Sodium Potassium Chloride Carbon Dioxide Anion Gap BUN Creatinine Estim Creat Clear Calc eGFR BUN/Creatinine Ratio Glucose Calculated Osmolality Lactic Acid Calcium Corrected Calcium Phosphorus Magnesium Total Bilirubin AST ALT Alkaline Phosphatase Total Protein Albumin Globulin Albumin/Globulin Ratio Vancomycin Trough 14.4 H Misc Test Result Quality Measures Quality Measures sepsis Current suspected stage: ruled out Possible source: skin/soft tissue Blood cultures ordered: yes Antibiotic ordered: Yes Assessment & Plan Assessment Current Active Medications: Generic Name Dose Route Start Last Admin Trade Name Freq PRN Reason Stop Dose Admin Dextrose 25 ml 09/24/24 16:50 Dextrose 50%-Water Inj 50 Ml Syringe IV 10/24/24 16:49 Q15MIN PRN BG 50-70 responsive npo pt Dextrose 50 ml 09/24/24 16:50 Dextrose 50%-Water Inj 50 Ml Syringe IV 10/24/24 16:49 Q15MIN PRN BG <50 OR BG <70 & pt unresponsive Doxycycline Hyclate 100 mg 09/26/24 13:30 Doxycycline 100 Mg Tablet PO 10/01/24 12:00 BID CELINA Glucagon 1 mg 09/24/24 16:50 Glucagon Inj 1 Mg Vial IM Q15MIN PRN BG <70, and no IV access Ibuprofen 400 mg 09/24/24 13:32 Ibuprofen Tab 400 Mg Tablet PO 10/24/24 13:31 Q6HR PRN Fever > 100.4 Ibuprofen 600 mg 09/24/24 13:33 09/25/24 08:24 Ibuprofen Tab 600 Mg Tablet PO 10/24/24 13:32 600 mg Q6H PRN Administration PAIN SCALE 1-3 (mild Insulin Human Lispro 0 unit 09/24/24 17:00 09/26/24 11:32 Insulin Lispro (Admelog) 1 Unit/0.01 Ml Unit SC 10/24/24 16:59 3 unit AC CELINA Administration Protocol Lactulose 30 gm 09/24/24 15:15 09/26/24 06:15 Lactulose Syrup 20 Gm/30 Ml Udc PO 10/24/24 15:14 30 gm TID CELINA Administration Protocol Levofloxacin 500 mg 09/26/24 13:30 Levofloxacin 250 Mg Tablet PO 10/01/24 12:00 QDAY [facility] Lidocaine HCl 5 ml 09/24/24 21:51 Lidocaine Jelly 2% 5 Ml Tube TOP 10/24/24 21:59 TID PRN PAIN SCALE 4-10(Mod-Sev Morphine Sulfate 2 mg 09/24/24 13:33 09/26/24 10:35 Morphine Sulf Inj 10 Mg/Ml Vial IVP 09/29/24 13:32 2 mg Q4H PRN Administration Breakthrough Pain Pantoprazole Sodium 40 mg 09/24/24 16:45 09/26/24 08:35 Pantoprazole 40 Mg Tablet PO 10/24/24 16:44 40 mg DAILY CELINA Administration Rifaximin 550 mg 09/24/24 21:00 09/26/24 08:35 Rifaximin 550 Mg Tablet PO 10/01/24 20:59 550 mg BID CELINA Administration Scopolamine 1 mg 09/24/24 16:30 Scopolamine 1 Mg Tdsy TOP 10/24/24 16:29 X1 PRN nausea Spironolactone 25 mg 09/24/24 15:45 09/26/24 08:35 Spironolactone 25 Mg Tablet PO 10/24/24 15:44 25 mg DAILY CELINA Administration Plan #Right labial abscess Perineal/labial abscess 4.7 x 2.6 x [address] Pt endorses perineum bleeding that has occured since she noticed her abscess. Abcess gram stain and culture have yielded growth of E. coli with no growth of anaerobic bacteria. - Per gynecology, Incision and drainage has been done and Dr. Naomie Castellanos recommends pt have PT consult and be discharged with Doxycycline PO BID at discretion of primary team. - Vancomycin discontinued due to wound culture results showing no growth of G(+) organisms - Zosyn 3.375 q6h IV (09/24 - 09/28) #UTI UA showed (+) Leukocyte esterase, 3+ blood, RBC 268, WBC 55, amorphous crystals, 1+ bacteria. Pt is currently does not have leukocytosis and is afebrile w/ no other symptoms of UTI. - Zosyn 3.375 q6h IV (09/24 - 09/28) #Hepatic encephalopathy- resolving #Cirrhosis 2/2 EtOH Mild asterixis seen bilaterally on UE exam. Pt has PMH of cirrhosis and has had multiple hospital admissions for hepatic encephalopathy. Ammonia level is 78 as of 09/24. Pt complaint of acute on chronic RUQ pain likely secondary to cirrhosis - Lactulose 30 g TID - Rifaximin 550 mg BID - Spironolactone 25 mg daily - Liver ultrasound shows abnormal thickening of the gallbladder wall. HIDA scan ordered, results pending #Thrombocytopenia - Chronic #Prolonged PT/INR, PTT 2/2 cirrhosis - Daily CBC #T2DM Pt has home med Metformin 1000 mg daily. Most recent bedside glucose is 159. - SSI #Right adrenal nodule [address] a/p Plan: - F/U outpatient Attending Provider Attestation/Addendum I have examined the patient, reviewed labs and imaging findings, discussed the case with the resident(s), and reviewed entered orders. I agree with the plan of care as outlined in this note, with these additional summaries/recommendations: Patient seen at bedside. No acute overnight events. Patient is postoperative day #1 status post incision and drainage of right labial abscess. Continue IV antibiotics and follow-up intraoperative cultures. Blood cultures show no growth at 48 hours. Intraoperative culture returned positive with ESBL E. coli and we will consult infectious disease. Patient is well-known to hospital service and appears to be having more abdominal pain than usual especially in right upper quadrant. CT scan on admission was suspicious for a acute acalculous cholecystitis. Hyperbilirubinemia present and elevated alkaline phosphatase although these are chronically elevated secondary to cirrhosis. We will obtain HIDA scan and continue pain management. Continue lactulose and rifaximin for hepatic encephalopathy prevention. Discontinue vancomycin. Outpatient follow-up with hepatology/transplant center for liver transplant evaluation. Patient noted to have 14 mm right adrenal nodule and will need to complete further testing and monitoring outpatient with primary care provider. Please see residents note for additional details and management. Dr. Seymour MD
--- NOTE | 2024-09-26 14:25 | XR_ITS ---
Examination: RUY, hepatobiliary radioisotope scan Gallbladder ejection fraction study. Date and time of exam: September 26, 2024 1606 hours INDICATIONS: Abdominal pain, diagnosis alcoholic cirrhosis, elevated bilirubin on laboratory examination today Technique: 6.0 mCi of 99M Hepatolite administered. Serial imaging then obtained from immediate through 60 minutes. 1.6 mcg selective catheter Kinevac administered for gallbladder ejection fraction study. Findings: Radioisotope activity within the liver is reasonably homogenous. Gallbladder, common bile duct small bowel activity noted Impression: Gallbladder activity. Abnormal gallbladder ejection fraction, 15%, normal greater than 35%
[2024-09-26] MEDS: LEVOFLOXACIN 250 MG TABLET 500 MG PO (14:27)
[2024-09-26] MEDS: DOXYCYCLINE 100 MG TABLET PO ×2 (14:27→21:24)
--- NOTE | 2024-09-26 14:33 | PC.SS ---
SS follow up note; ID Rec's pending. Patient will discharge home within 1-2 days.
--- NOTE | 2024-09-26 16:12 | ESCONSULT_ITS ---
RE: SHANNON ORTIZ : 1970 DATE OF CONSULTATION: 09/25/2024 REFERRING PHYSICIAN: Shaila Alaniz DO, hospitalist. REASON FOR CONSULTATION: Pelvic abscess and cirrhosis. HISTORY OF PRESENT ILLNESS: The patient is an unfortunate 53-year-old woman with cirrhosis presumably on the basis of alcohol consumption. She is relatively young at 53. There is no history of liver disease and no family history of liver disease. She does have chronic pain and appears otherwise well coiffed and quite formally dressed and made up. Her medical problems include liver disease and borderline diabetes, for which she is much better controlled with A1c of nearly 11 in 2021, now down to 6. Her pelvic abscess is showing gram-stain GPCs and GNRs, but the emphasis is better on the GNR treatment. She still has some pain, but it is a little bit better. She is 3 para 3 with 2 C-sections noted. She has a young son living at home with her and is at age 12. The oldest son also lives at home with her and is working. The daughter lives with her father and is in [place]. PAST SURGICAL HISTORY: Includes appendectomy at age 5, I and D of a pelvic abscess done the other day, 1 other abdominal surgery, sounds like hysteroscopy in the past, and she also has 2 prior C-sections. ALLERGIES: NONE KNOWN. IMMUNIZATIONS: Last tetanus is not known. She does take a flu shot every year. She has had 2 COVID vaccines. She has not had pneumococcal vaccine. FAMILY HISTORY: Unremarkable. SOCIAL HISTORY: She lives at home with 2 sons. Daughter lives with her father in [place] because she attends [employer]. The patient denies ongoing heavy alcohol use, but that is certainly suggested by her history. She is otherwise well made up and she used to avoid alcohol moving forward completely in order to live as long as possible. She may want to craft an end-of-life plan for her or have her sign a POLST form if issue worsens. Her INR has varied from 2.2 to 1.5. Creatinine has varied quite a bit as well. It has been normal this admission. I switched her regimen to doxycycline and Levaquin and she may go home on that if she desires. cc: DO Heaven Rodney MD DT: 13:42:41 TT: 16:10:00 Ref: [id number] - TID: [id number] MTDD
--- NOTE | 2024-09-26 20:17 | PD.GYNPROG ---
Documentation for date of: 09/26/24 at 1900 MEDIA THEORIST AND AUTHOR OF Subjective Subjective Interval history: Patient is postop day #2 status post drainage of labial abscess. She has been afebrile. Tonight she is laying in bed with her hair done nicely and her make-up done. She states that she soiled her bed. That she has some loose stools and prefers not to use a bedpan. Patient's Liz is still in place. Dr. Oj Castellanos from infectious disease saw the patient today and placed her on oral doxycycline and Levaquin for 5 more days postop. Patient can go home on those medications. I told the patient she cannot sit in stool or else she might develop another infection of her labia. She needs to get up and use a commode. I would also recommend switching to p.o. pain medications. Her perineum from what I could see does not appear to be swollen at this time. Subjective: patient reports feeling better, patient is tolerating oral intake and other (Patient has a Liz and that needs to be discontinued. She needs to get up and use a bedside commode or at least a bedpan.) Exam Vital Signs Temp Pulse Resp BP Pulse Ox O2 Del Method O2 Flow Rate 97.3 F 60 18 99/68 96 Room Air 2 09/26/24 15:55 09/26/24 16:00 09/26/24 15:55 09/26/24 15:55 09/26/24 15:55 09/26/24 15:55 09/24/24 16:15 Narrative Exam Patient is alert and oriented x 3. She appears in no apparent distress but requesting morphine 2 mg every 4 hours per her RN. She does not want to get her Liz out or get up to use the restroom because it hurts Urinary Catheter Management Cath placed during this visit: yes Urethral indwelling: Yes Reason for Continuing: Decision to DC catheter Insertion date: 09/24/24 Insertion time: 15:00 Removal date: 09/25/24 MEDIA THEORIST AND AUTHOR OF - PN: Obj Data Labs 09/26/24 05:45 09/26/24 05:45 Labs: Laboratory Results - last 24 hr 09/26/24 09/26/24 05:45 08:52 WBC 3.7 D RBC 2.93 L Hgb 10.5 L Hct 31.2 L MCV 107 H MCH 35.8 H MCHC 33.7 RDW Std Deviation 68.3 H Plt Count 28 L* Neut % (Auto) 61 Lymph % (Auto) 21 [place] % (Auto) 11 Eos % (Auto) 5 Baso % (Auto) 1 Neut # (Auto) 2.3 Lymph # (Auto) 0.8 L [place] # (Auto) 0.4 Eos # (Auto) 0.2 Baso # (Auto) 0.0 Immature Gran # (Auto) 0.05 H Absolute Nucleated RBC 0.00 Immature Gran % 1 H Nucleated RBC % 0 Sodium 138 Potassium 4.4 Chloride 106 Carbon Dioxide 25.9 Anion Gap 6 L BUN 9 Creatinine 1.1 Estim Creat Clear Calc 53.8 L eGFR > 60 BUN/Creatinine Ratio 8 L Glucose 133 H Calculated Osmolality 276 Calcium 9.1 Corrected Calcium 10.2 H Phosphorus 2.5 Magnesium 2.2 Total Bilirubin 3.6 H D AST 32 ALT 13 Alkaline Phosphatase 122 H Total Protein 6.3 Albumin 2.6 L Globulin 3.7 H Albumin/Globulin Ratio 0.7 L Vancomycin Trough 14.4 H Misc Test Result Platelets confirmed MEDIA THEORIST AND AUTHOR OF - A/P Assessment and plan (1) Labial abscess: Problem details: POD #2 EUA/ drainage /flush out i0f labial abscess in the OR. Lidocaine jelly PRN pain. DC catheter POD now, NO PUREWICK. Pt to get up to commode. Explained her labia majora on the right will be swollen but there was no sign of an abscess. Pt has very little albumin present due to liver dysfunction and will develop dependent edema. If DC home, OK for doxycyline 100 mg PO BID x 5 and Levaquin x 5 days days if OK with all her other meds. Pt needs to ambulate, may need a PT consult. Status: Acute (2) Diabetes mellitus with hyperglycemia: Status: Acute (3) Cirrhosis of liver: Problem details: Pt with ESLD. Sober one year. May be a candidate for a liver transplant. Her mom tried to get her evaluated at [facility] but she fell through the cracks. Pt may be able to go through [facility] Hepatology to see if she qualifies for transplant. She is only 53 years old. She very much needs a social work consult and possible end of life discussion. She has to want to live and get better to qualify for a transplant and I tried to bring this up to the patient and her mother. Right now, she seems to have little mobility and does not seem too motivated to get better. Status: Acute (4) Thrombocytopenia: Status: Acute Postoperative Procedures: Procedures Operation Date: 09/24/24 14:15 Actual Procedure Side Surgeon p Exam Under Anesthesia, Incision and Drainage of Vulvar Abscess Alicia Castellanos ([facility]), Postoperative day: 2 Postoperative status: doing well Postoperative plan: ambulate Time Spent With Patient Time: Total time spent is greater than 50% in coordination of care (as documented) at patient's floor/unit and/or counseling patient: Time with patient: less than 15 minutes
[2024-09-27] VITALS (12 sets, daily range): BP systolic 99–116; BP diastolic 64–73; PULSE 8–97; RESP 16–97; TEMP 36.4–36.7; O2SAT 95–97
[2024-09-27] MEDS: LACTULOSE SYRUP 20 GM/30 ML UDC 30 GM PO (05:01)
[2024-09-27] MEDS: MORPHINE SULF INJ 10 MG/ML VIAL 2 MG IVP ×2 (05:02→11:36)
[2024-09-27 05:35] LABS: Basophils # (Auto) 0.0 Thou/mm3 (0.0-0.2); Basophils % (Auto) 1 % (0-2.5); Eosinophils # (Auto) 0.1 Thou/mm3 (0.0-0.5); Eosinophils % (Auto) 5 % (0-10); Hematocrit 28.5 % (36.0-46.0); Hemoglobin 9.5 g/dL (12.0-16.0); Immature Granulocytes Auto 0.03 Thou/mm3 (0.00-0.00); Lymphocytes # (Auto) 0.9 Thou/mm3 (1.0-4.8); Lymphocytes % (Auto) 33 % (10-50); Mean Corpuscular HGB Conc 33.3 g/dl (31.0-37.0); Mean Corpuscular Hemoglobin 35.8 pg (25.0-35.0); Mean Corpuscular Volume 108 fL (80-100); Monocytes # (Auto) 0.3 Thou/mm3 (0.0-0.8); Monocytes % (Auto) 11 % (0-12); Neutrophils # (Auto) 1.4 Thou/mm3 (1.8-7.7); Neutrophils % (Auto) 50 % (37-80); Nucleated Red Blood Cell # 0.00 Thou/mm3 (0.00-0.00); Nucleated Red Blood Cell % 0 /100 WBC (0); RDW Standard Deviation 68.5 fL (36.4-46.3); Red Blood Count 2.65 Miln/mm3 (4.00-5.20); White Blood Count 2.8 Thou/mm3 (3.6-11.0)
[2024-09-27 05:39] LABS: Platelet Count 27 Thou/mm3 (140-440); Slide Review Platelets confirmed
[2024-09-27 06:15] LABS: Alanine Aminotransferase 15 U/L (10-49); Albumin, Serum 2.3 gm/dL (3.5-5.0); Albumin/Globulin Ratio 0.7 (1.2-2.2); Alkaline Phosphatase 99 U/L (46-116); Anion Gap 7 (7-16); Aspartate Amino Transferase 46 U/L (0-34); BUN/Creatinine Ratio 7 Ratio (12-20); Bilirubin,Total 3.3 mg/dL (0.3-1.2); Blood Urea Nitrogen 6 mg/dL (9-23); Calcium 8.7 mg/dL (8.3-10.6); Calcium (Corrected) 10.1 mg/dL (8.5-10.1); Carbon Dioxide 26.6 mMol/L (20.0-31.0); Chloride 105 mMol/L (98-107); Creatinine (Component) 0.9 mg/dL (0.6-1.3); Estimated Creatinine Clearance 65.8 mL/min (>60); Globulin 3.4 gm/dL (2.3-3.5); Glucose 107 mg/dL (74-106); Magnesium 1.8 mg/dL (1.6-2.6); Osmolality,Calculated 275 (275-295); Phosphorous 2.5 mg/dL (2.4-5.1); Potassium 4.8 mMol/L (3.4-5.1); Sodium 139 mMol/L (136-145); Total Protein 5.7 gm/dL (5.7-8.2); eGFR > 60 See Note
--- NOTE | 2024-09-27 07:21 | ESPR_ITS ---
<Statement entered by Devyn Luna MD - 09/27/24 15:31> Patient was examined and case was reviewed with team including attending physician. Note reviewed, I agree with most of its contents and agree with the patient's care as documented by Dr. Casiano Patient seen today at the bedside found awake, alert, orientedx3. No overnight events reported. Vitals and labs reviewed. Continues to report right upper quadrant pain and pain around the abdominal area. IV pain medication will be transition to oral route at this time. HIDA scan showed 50% ejection fraction of the gallbladder. General surgery was consulted and did not recommend any type of surgical intervention at this time. Anticipate discharge in the next 24-48 hours. Case discussed with my attending Dr. Seymour Luna MD PGY-2 Disclaimer: Despite multiple revisions, due to the dictation software being used, the document bellow may not be free of grammatical errors including phonetic/typographic errors. However, this does not deter from our commitment to providing health care in the patient's best interest in mind. Documentation for date of: 09/27/24 Subjective Subjective Interval history: NAEO. VSS. Has been having > 3 BM per day. Patient evaluated at bedside. Reports continued RUQ pain and right labial pain. Has morphine 2 mg IV q4h PRN. Transitioned from IV morphine to PO [place] 10 q6h. Exam Vital Signs Temp Pulse Resp BP Pulse Ox O2 Del Method O2 Flow Rate 97.5 F 87 16 116/73 97 Room Air 2 09/27/24 04:00 09/27/24 04:00 09/27/24 04:00 09/27/24 04:00 09/27/24 04:00 09/27/24 04:00 09/24/24 16:15 Narrative Exam General: , well nourished Eye: PERRL, EOMI, normal conjunctiva, no scleral icterus HENT: Normocephalic, atraumatic, normal hearing, moist oral mucosa Neck: Supple, non-tender, no lymphadenopathy Lungs: Clear to auscultation bilaterally, non-labored respirations, symmetric chest rise, no use of accessory muscles Heart: Normal S1 and S2, no S3 or S4 appreciated. Normal rate and regular rhythm, no murmurs, rubs gallops, or edema. Peripheral pulses intact bilaterally, capillary refill brisk distally Abdomen: Soft, non-tender, +distended, RUQ TTP, + Anita's sign, normal bowel sounds. No guarding or rebound tenderness. Musculoskeletal: Normal range of motion and strength, no tenderness or swelling. : Swelling of the right labia, no active bleeding appreciated, severe TTP Skin: Skin is warm, dry, no rashes or lesions. Neurologic: Alert, awake and oriented x3. CN II-XII grossly intact. No focal neuro deficits. No signs of meningeal irritation noted. Psychiatric: Cooperative, appropriate mood and affect Objective Labs 09/27/24 04:43 09/27/24 04:43 Labs: Laboratory Results - last 24 hr 09/26/24 09/26/24 09/27/24 05:45 08:52 04:43 WBC 3.7 D 2.8 L RBC 2.93 L 2.65 L Hgb 10.5 L 9.5 L Hct 31.2 L 28.5 L MCV 107 H 108 H MCH 35.8 H 35.8 H MCHC 33.7 33.3 RDW Std Deviation 68.3 H 68.5 H Plt Count 28 L* 27 L* Neut % (Auto) 61 50 Lymph % (Auto) 21 33 [place] % (Auto) 11 11 Eos % (Auto) 5 5 Baso % (Auto) 1 1 Neut # (Auto) 2.3 1.4 L Lymph # (Auto) 0.8 L 0.9 L [place] # (Auto) 0.4 0.3 Eos # (Auto) 0.2 0.1 Baso # (Auto) 0.0 0.0 Immature Gran # (Auto) 0.05 H 0.03 H Absolute Nucleated RBC 0.00 0.00 Immature Gran % 1 H 1 H Nucleated RBC % 0 0 Sodium 139 Potassium 4.8 Chloride 105 Carbon Dioxide 26.6 Anion Gap 7 BUN 6 L Creatinine 0.9 Estim Creat Clear Calc 65.8 eGFR > 60 BUN/Creatinine Ratio 7 L Glucose 107 H Calculated Osmolality 275 Calcium 8.7 Corrected Calcium 10.1 Phosphorus 2.5 Magnesium 1.8 Total Bilirubin 3.3 H AST 46 H ALT 15 Alkaline Phosphatase 99 D Total Protein 5.7 Albumin 2.3 L Globulin 3.4 Albumin/Globulin Ratio 0.7 L Vancomycin Trough 14.4 H Misc Test Result Platelets confirmed Platelets confirmed Quality Measures Quality Measures sepsis Current suspected stage: ruled out Possible source: skin/soft tissue Blood cultures ordered: yes Antibiotic ordered: Yes Assessment & Plan Assessment Current Active Medications: Generic Name Dose Route Start Last Admin Trade Name Freq PRN Reason Stop Dose Admin Dextrose 25 ml 09/24/24 16:50 Dextrose 50%-Water Inj 50 Ml Syringe IV 10/24/24 16:49 Q15MIN PRN BG 50-70 responsive npo pt Dextrose 50 ml 09/24/24 16:50 Dextrose 50%-Water Inj 50 Ml Syringe IV 10/24/24 16:49 Q15MIN PRN BG <50 OR BG <70 & pt unresponsive Doxycycline Hyclate 100 mg 09/26/24 13:30 09/26/24 21:24 Doxycycline 100 Mg Tablet PO 10/01/24 12:00 100 mg BID CELINA Administration Glucagon 1 mg 09/24/24 16:50 Glucagon Inj 1 Mg Vial IM Q15MIN PRN BG <70, and no IV access Ibuprofen 400 mg 09/24/24 13:32 Ibuprofen Tab 400 Mg Tablet PO 10/24/24 13:31 Q6HR PRN Fever > 100.4 Ibuprofen 600 mg 09/24/24 13:33 09/25/24 08:24 Ibuprofen Tab 600 Mg Tablet PO 10/24/24 13:32 600 mg Q6H PRN Administration PAIN SCALE 1-3 (mild Insulin Human Lispro 0 unit 09/24/24 17:00 09/26/24 18:13 Insulin Lispro (Admelog) 1 Unit/0.01 Ml Unit SC 10/24/24 16:59 Not Given AC [facility] Protocol Lactulose 30 gm 09/24/24 15:15 09/27/24 05:01 Lactulose Syrup 20 Gm/30 Ml Udc PO 10/24/24 15:14 30 gm TID CELINA Administration Protocol Levofloxacin 500 mg 09/26/24 13:30 09/26/24 14:27 Levofloxacin 250 Mg Tablet PO 10/01/24 12:00 500 mg QDAY CELINA Administration Lidocaine HCl 5 ml 09/24/24 21:51 Lidocaine Jelly 2% 5 Ml Tube TOP 10/24/24 21:59 TID PRN PAIN SCALE 4-10(Mod-Sev Morphine Sulfate 2 mg 09/24/24 13:33 09/27/24 05:02 Morphine Sulf Inj 10 Mg/Ml Vial IVP 09/29/24 13:32 2 mg Q4H PRN Administration Breakthrough Pain Pantoprazole Sodium 40 mg 09/24/24 16:45 09/26/24 08:35 Pantoprazole 40 Mg Tablet PO 10/24/24 16:44 40 mg DAILY CELINA Administration Rifaximin 550 mg 09/24/24 21:00 09/26/24 21:24 Rifaximin 550 Mg Tablet PO 10/01/24 20:59 550 mg BID CELINA Administration Scopolamine 1 mg 09/24/24 16:30 Scopolamine 1 Mg Tdsy TOP 10/24/24 16:29 X1 PRN nausea Spironolactone 25 mg 09/24/24 15:45 09/26/24 08:35 Spironolactone 25 Mg Tablet PO 10/24/24 15:44 25 mg DAILY CELINA Administration Plan #Right labial abscess Started week prior to admission as a pimple, no hx of razor cuts to the area, abscess rapidly grew in size and became painful to touch Perineal/labial abscess 4.7 x 2.6 x [address]. Abscess cx shows E coli (GNR, facultative anaerobe) I&D performed with Dr. Naomie Castellanos Plan: - Consulted OBGYN (Dr. Naomie Castellanos), appreciate recs - Doxycycline 100 mg BID (09/26-09/30) - Levofloxacin 500 mg daily (09/26 - 09/30) - Transitioned IV morphine to [place] 10/325 mg q6h PRN. Acetaminophen max dose for pt with cirrhosis: 2 g / day. With q6h regimen, pt would get 1300 mg Tylenol / day. #UTI UA showed (+) Leukocyte esterase, 3+ blood, RBC 268, WBC 55, amorphous crystals, 1+ bacteria. Pt is currently does not have leukocytosis and is afebrile w/ no other symptoms of UTI. Ucx showed Ecoli, Enterococcus faecium Plan: - Levofloxacin 500 mg daily (09/26 - 09/30) #Hepatic encephalopathy - improving #Cirrhosis 2/2 EtOH PMH of cirrhosis and has had multiple hospital admissions for hepatic encephalopathy Mild asterixis seen bilaterally on UE exam, improved RUQ pain at rest, TTP Ammonia level elevated Plan: - Lactulose 30 g TID - Rifaximin 550 mg BID - Spironolactone 25 mg daily #RUQ abdominal pain Liver US: abnormal thickening of gallbladder. HIDA scan showed abnormal gallbladder ejection fraction 15% Plan: - Consulted general surgery (Dr. Dyer) about decreased EF of gallbladder + RUQ pain, appreciate recs. He states nothing to do at this time. Can be managed outpatient. #Thrombocytopenia - Chronic #Prolonged PT/INR, PTT 2/2 cirrhosis Plan: - Daily CBC #T2DM Pt has home med Metformin 1000 mg daily. Most recent bedside glucose is 159. Plan: - SSI #Right adrenal nodule [address] a/p Plan: - F/U outpatient Checklist Dispo: pending tolerance to transition of IV morphine to PO [place] for RUQ and labial pain management Diet: carb consistent Bowel Reg: lactulose 30 g TID VTE ppx: none (pt has chronic thrombocytopenia) GI ppx: Pantoprazole 40 mg daily Pain mgmt: [place] 10/325 mg PO q6h Code status: full Plan discussed with Dr. Mcrae and Dr. Seymour Casiano MD PGY1 Attending Provider Attestation/Addendum I have examined the patient, reviewed labs and imaging findings, discussed the case with the resident(s), and reviewed entered orders. I agree with the plan of care as outlined in this note, with these additional summaries/recommendations: Patient seen at bedside. No acute overnight events. Patient is postoperative day #2 status post incision and drainage of right labial abscess. Continue antibiotics and follow-up intraoperative resulted showing ESBL E. coli and urine culture grew ESBL E. coli and Enterococcus. Infectious disease following and antibiotics adjusted. Blood cultures show no growth at 48 hours. Yesterday patient was endorsing moderate abdominal pain throughout the abdomen but appeared most significant in right upper quadrant. Patient is well-known to hospital service and appears to be having more abdominal pain than usual especially in right upper quadrant. Ultrasound was obtained which showed abnormal thickening of the gallbladder wall and HIDA scan was obtained which revealed gallbladder activity although it was abnormal with ejection fraction less than 15%. Surgery consulted, appreciate recommendations although lower suspicion for acute cholecystitis at this time. Discussed with patient that we will wean from IV morphine today and transition to oral pain management in anticipation of discharge in the coming days. Patient's mental status continues to improve and trending towards baseline. Continue lactulose and rifaximin. Hyperbilirubinemia present and elevated alkaline phosphatase although these are chronically elevated secondary to cirrhosis. Outpatient follow-up with hepatology/transplant center for liver transplant evaluation. Patient noted to have 14 mm right adrenal nodule and will need to complete further testing and monitoring outpatient with primary care provider. Please see residents note for additional details and management. Dr. Seymour MD
--- NOTE | 2024-09-27 08:00 | ESPR_ITS ---
Documentation for date of: 09/27/24 [employer] Subjective Subjective Interval history: Patient is postop day #2 status post drainage of labial abscess. She has been afebrile. Tonight she is laying in bed with her hair done nicely and her make- up done. She states that she soiled her bed. That she has some loose stools and prefers not to use a bedpan. Patient's Liz is still in place. Dr. Oj Castellanos from infectious disease saw the patient today and placed her on oral doxycycline and Levaquin for 5 more days postop. Patient can go home on those medications. I told the patient she cannot sit in stool or else she might develop another infection of her labia. She needs to get up and use a commode. I would also recommend switching to p.o. pain medications. Her perineum from what I could see does not appear to be swollen at this time. Morning patient is postoperative day #3 status post drainage of a labial abscess. She is sitting in bed putting her make-up on. She looks much better than last night. Her perineum is clean. Her labia majora is slightly swollen but no signs of recurrent abscess. Patient has been afebrile since admission. At this point the gynecology team multisign off. Patient can finish a 5-day course of Levaquin and Flagyl as recommended by infectious disease. Subjective: patient reports feeling better, patient has no complaints and pain is well controlled Exam Vital Signs Temp Pulse Resp BP Pulse Ox O2 Del Method O2 Flow Rate 97.5 F 92 18 110/67 96 Room Air 2 09/27/24 07:45 09/27/24 07:45 09/27/24 07:45 09/27/24 07:45 09/27/24 07:45 09/27/24 07:45 09/24/24 16:15 Narrative Exam Patient is alert and oriented x 3 in no apparent distress sitting up putting make-up on Routine Exam External: Present swelling (Patient has some swelling of her labia majora, no signs of recurrent labial abscess. Her right labia minora abscess has drained completely. There is no pus ,odor or abnormalities present.) Urinary Catheter Management Cath placed during this visit: yes, but has since been removed by the nurse Urethral indwelling: Yes Insertion date: 09/24/24 Insertion time: 15:00 Removal date: 09/25/24 [employer] - PN: Obj Data Labs 09/27/24 04:43 09/27/24 04:43 Labs: Laboratory Results - last 24 hr 09/26/24 09/26/24 09/27/24 05:45 08:52 04:43 WBC 3.7 D 2.8 L RBC 2.93 L 2.65 L Hgb 10.5 L 9.5 L Hct 31.2 L 28.5 L MCV 107 H 108 H MCH 35.8 H 35.8 H MCHC 33.7 33.3 RDW Std Deviation 68.3 H 68.5 H Plt Count 28 L* 27 L* Neut % (Auto) 61 50 Lymph % (Auto) 21 33 [place] % (Auto) 11 11 Eos % (Auto) 5 5 Baso % (Auto) 1 1 Neut # (Auto) 2.3 1.4 L Lymph # (Auto) 0.8 L 0.9 L [place] # (Auto) 0.4 0.3 Eos # (Auto) 0.2 0.1 Baso # (Auto) 0.0 0.0 Immature Gran # (Auto) 0.05 H 0.03 H Absolute Nucleated RBC 0.00 0.00 Immature Gran % 1 H 1 H Nucleated RBC % 0 0 Sodium 139 Potassium 4.8 Chloride 105 Carbon Dioxide 26.6 Anion Gap 7 BUN 6 L Creatinine 0.9 Estim Creat Clear Calc 65.8 eGFR > 60 BUN/Creatinine Ratio 7 L Glucose 107 H Calculated Osmolality 275 Calcium 8.7 Corrected Calcium 10.1 Phosphorus 2.5 Magnesium 1.8 Total Bilirubin 3.3 H AST 46 H ALT 15 Alkaline Phosphatase 99 D Total Protein 5.7 Albumin 2.3 L Globulin 3.4 Albumin/Globulin Ratio 0.7 L Vancomycin Trough 14.4 H Misc Test Result Platelets confirmed Platelets confirmed [employer] - A/P Assessment and plan (1) Labial abscess: Problem details: POD #3 EUA/ drainage /flush out of labial abscess in the OR. Lidocaine jelly PRN pain. Discontinued Liz last night. Patient has been afebrile since admission. Pt to get up to commode. Explained her labia majora on the right will be swollen but there was no sign of an abscess. Pt has very little albumin present due to liver dysfunction and will develop dependent edema. If DC home, OK for doxycyline 100 mg PO BID x 5 and Levaquin x 5 days days if OK with all her other meds. Pt needs to ambulate, may need a PT consult. Gynecology will sign off at this time as there is no acute gynecological issues. Status: Acute (2) Diabetes mellitus with hyperglycemia: Status: Acute (3) Cirrhosis of liver: Problem details: Pt with ESLD. Sober one year. May be a candidate for a liver transplant. Her mom tried to get her evaluated at [facility] but she fell through the cracks. Pt may be able to go through [facility] Hepatology to see if she qualifies for transplant. She is only 53 years old. She very much needs a social work consult and possible end of life discussion. She has to want to live and get better to qualify for a transplant and I tried to bring this up to the patient and her mother. Today patient seems upbeat and wants to follow-up with a hepatology service at a tertiary care center for possible evaluation for a liver transplant. I told the patient to discuss this with primary team and possible social work. Patient might need physical therapy as an outpatient. Status: Acute (4) Thrombocytopenia: Status: Acute Postoperative Procedures: Procedures Operation Date: 09/24/24 14:15 Actual Procedure Side Surgeon p Exam Under Anesthesia, Incision and Drainage of Vulvar Abscess Alicia Castellanos ([facility])MD Postoperative day: 3 Postoperative status: doing well and other (Gynecology signing off) Postoperative plan: routine post-op care and other (Patient to wash her perineum daily with soap and water. Wipe front to back. Try to use a commode and not sit in diapers wet with urine or stool.) Time Spent With Patient Time: Total time spent is greater than 50% in coordination of care (as documented) at patient's floor/unit and/or counseling patient: Time with patient: 25 - 35 minutes
--- NOTE | 2024-09-27 09:12 | PC.NURSE ---
Pt got up and used bedside commode. Voided and had a bowel movement.
[2024-09-27] MEDS: MAGNESIUM OXIDE 400 MG TABLET PO (09:14)
[2024-09-27] MEDS: PANTOPRAZOLE 40 MG TABLET PO (09:14)
[2024-09-27] MEDS: SPIRONOLACTONE 25 MG TABLET PO (09:14)
[2024-09-27] MEDS: DOXYCYCLINE 100 MG TABLET PO ×2 (09:14→20:08)
[2024-09-27] MEDS: LEVOFLOXACIN 250 MG TABLET 500 MG PO (09:15)
[2024-09-27] MEDS: INSULIN LISPRO (AdmeLOG) 1 UNIT/0.01 ML UNIT SC ×2 (12:04→17:04)
--- NOTE | 2024-09-27 12:19 | ESCONSULT_ITS ---
HPI Consult details Consult date: 09/27/24 Reason for consultation narrative: Possible cholecystitis History of present illness: 53-year-old hemale with history of alcoholic liver cirrhosis, variceal bleeding s/p band ligation, multiple recurrent admissions for hepatic encephalopathy was admitted few days ago for right labial abscess. She was evaluated by [facility] and underwent incision and drainage. She has been having diffuse abdominal pain CT scan revealed cirrhosis of the liver, gallbladder wall thickening and edema. Ultrasound did not show gallstones and noted gallbladder wall thickening. HIDA scan was performed that showed gallbladder activity which rules out cholecystitis, however she was noted to have biliary dyskinesia with ejection fraction 15%. Patient has been eating and tolerating diet well without nausea or vomiting. She is noted to be hypercoagulable and thrombocytopenic. Review of Systems Constitutional Constitutional: Denies chills and Denies fever(s) Cardiovascular Cardiovascular: Denies chest pain Respiratory Respiratory: Denies cough Gastrointestinal Gastrointestinal: Reports abdominal pain, Denies nausea and Denies vomiting Hematologic/Lymphatic Hematologic/Lymphatic: Denies easy bleeding and Reports easy bruising Past Medical History Surgical History OTHER SURGICAL HX: , appendectomy, laparoscopy, I&D of labial abscess Meds Home Medications and Allergies Allergies Allergy/AdvReac Type Severity Reaction Status Date / Time latex Allergy Severe Hives Verified 09/24/24 08: Exam Vital Signs Temp Pulse Resp BP Pulse Ox O2 Del Method O2 Flow Rate 97.5 F 89 18 108/71 96 Room Air 2 09/27/24 12:00 09/27/24 12:00 09/27/24 12:09/27/24 12:09/27/24 12:09/27/24 12:09/24/24 16:15 Constitutional Constitutional: no acute distress Routine Abdominal Exam Comments: Abdomen is soft and nondistended. She has tenderness to palpation throughout the abdomen, no focal area of tenderness Results Results: Laboratory Laboratory results: results reviewed Results: Imaging Imaging narrative: HIDA scan and abdominal ultrasound images reviewed, radiologist interpretation noted CT scan - abdomen: report reviewed and image reviewed CT scan - pelvis: report reviewed and image reviewed Assessment & Plan Additional Assessment Additional comments: Patient has cirrhosis of the liver with portal hypertension, thrombocytopenic and hypercoagulable state, hence she is not a good surgical candidate. Patient does not have radiographic evidence of cholecystitis as HIDA scan revealed gallbladder activity. In the setting of liver cirrhosis, gallbladder wall thickening and edema cannot be accurately assessed with ultrasound and CT scan. She does have biliary dyskinesia with ejection fraction of 15%. I do not think patient has symptomatic dyskinesia as she does not have a focal area of tenderness and she is tolerating diet well. I do not think she requires further intervention specially when she is hypercoagulable and thrombocytopenic. However, if symptomatic biliary dyskinesia is still a consideration she will require percutaneous drainage by interventional radiologist.
[2024-09-28] VITALS (11 sets, daily range): BP systolic 96–103; BP diastolic 62–67; PULSE 63–102; RESP 16–94; TEMP 36.2–36.6; O2SAT 93–98
[2024-09-28 05:57] LABS: Basophils # (Auto) 0.0 Thou/mm3 (0.0-0.2); Basophils % (Auto) 1 % (0-2.5); Eosinophils # (Auto) 0.2 Thou/mm3 (0.0-0.5); Eosinophils % (Auto) 4 % (0-10); Hematocrit 27.9 % (36.0-46.0); Hemoglobin 9.2 g/dL (12.0-16.0); Immature Granulocytes Auto 0.05 Thou/mm3 (0.00-0.00); Lymphocytes # (Auto) 1.0 Thou/mm3 (1.0-4.8); Lymphocytes % (Auto) 23 % (10-50); Mean Corpuscular HGB Conc 33.0 g/dl (31.0-37.0); Mean Corpuscular Hemoglobin 35.5 pg (25.0-35.0); Mean Corpuscular Volume 108 fL (80-100); Monocytes # (Auto) 0.5 Thou/mm3 (0.0-0.8); Monocytes % (Auto) 11 % (0-12); Neutrophils # (Auto) 2.5 Thou/mm3 (1.8-7.7); Neutrophils % (Auto) 60 % (37-80); Nucleated Red Blood Cell # 0.00 Thou/mm3 (0.00-0.00); Nucleated Red Blood Cell % 0 /100 WBC (0); RDW Standard Deviation 67.3 fL (36.4-46.3); Red Blood Count 2.59 Miln/mm3 (4.00-5.20); White Blood Count 4.1 Thou/mm3 (3.6-11.0)
[2024-09-28 06:01] LABS: Platelet Count 35 Thou/mm3 (140-440)
[2024-09-28 06:20] LABS: Alanine Aminotransferase < 7 U/L (10-49); Albumin, Serum 2.3 gm/dL (3.5-5.0); Albumin/Globulin Ratio 0.7 (1.2-2.2); Alkaline Phosphatase 106 U/L (46-116); Anion Gap 5 (7-16); Aspartate Amino Transferase 39 U/L (0-34); BUN/Creatinine Ratio 7 Ratio (12-20); Bilirubin,Total 3.5 mg/dL (0.3-1.2); Blood Urea Nitrogen 6 mg/dL (9-23); Calcium 8.4 mg/dL (8.3-10.6); Calcium (Corrected) 9.8 mg/dL (8.5-10.1); Carbon Dioxide 25.1 mMol/L (20.0-31.0); Chloride 103 mMol/L (98-107); Creatinine (Component) 0.9 mg/dL (0.6-1.3); Estimated Creatinine Clearance 65.8 mL/min (>60); Globulin 3.3 gm/dL (2.3-3.5); Glucose 173 mg/dL (74-106); Magnesium 1.8 mg/dL (1.6-2.6); Osmolality,Calculated 267 (275-295); Phosphorous 2.3 mg/dL (2.4-5.1); Potassium 5.6 mMol/L (3.4-5.1); Sodium 133 mMol/L (136-145); Total Protein 5.6 gm/dL (5.7-8.2); eGFR > 60 See Note
--- NOTE | 2024-09-28 06:29 | PC.NURSE ---
Dr. Raya made aware that patients potassium jumped from 4.[address] Raya will put an order.
[2024-09-28] MEDS: SOD POLYSTYRENE SULFON SUSP 15 GM/60 ML BTL 30 GM PO (06:42)
[2024-09-28] MEDS: INSULIN LISPRO (AdmeLOG) 1 UNIT/0.01 ML UNIT SC ×2 (07:37→11:36)
--- NOTE | 2024-09-28 07:39 | PD.IDPROG ---
Subjective Subjective Interval history: still here per others. changed to po the other day. Exam Vital Signs Temp Pulse Resp BP Pulse Ox O2 Del Method O2 Flow Rate 97.6 F 82 17 103/67 93 L Room Air 2 09/28/24 04:00 09/28/24 04:00 09/28/24 04:00 09/28/24 04:00 09/28/24 04:00 09/28/24 04:00 09/24/24 16:15 Narrative Exam has make up mirror in room and based on micro is well treated Objective - Internal Medicine Labs 09/28/24 05:20 09/28/24 05:20 Labs: Laboratory Results - last 24 hr 09/28/24 05:20 WBC 4.1 D RBC 2.59 L Hgb 9.2 L Hct 27.9 L MCV 108 H MCH 35.5 H MCHC 33.0 RDW Std Deviation 67.3 H Plt Count 35 L D Neut % (Auto) 60 Lymph % (Auto) 23 [place] % (Auto) 11 Eos % (Auto) 4 Baso % (Auto) 1 Neut # (Auto) 2.5 Lymph # (Auto) 1.0 [place] # (Auto) 0.5 Eos # (Auto) 0.2 Baso # (Auto) 0.0 Immature Gran # (Auto) 0.05 H Absolute Nucleated RBC 0.00 Immature Gran % 1 H Nucleated RBC % 0 Sodium 133 L Potassium 5.6 H D Chloride 103 Carbon Dioxide 25.1 Anion Gap 5 L BUN 6 L Creatinine 0.9 Estim Creat Clear Calc 65.8 eGFR > 60 BUN/Creatinine Ratio 7 L Glucose 173 H D Calculated Osmolality 267 L Calcium 8.4 Corrected Calcium 9.8 Phosphorus 2.3 L Magnesium 1.8 Total Bilirubin 3.5 H AST 39 H ALT < 7 L Alkaline Phosphatase 106 Total Protein 5.6 L Albumin 2.3 L Globulin 3.3 Albumin/Globulin Ratio 0.7 L Assessment & Plan A&P Narrative labial abscess. cirrhosis changed to po levaquin and po doxy . f/u with outpt primary. no need to see id home at your discretion no dose change advised as rx relatively short , thru Tuesday am of coming week. will see again prn Time Spent With Patient Time: Total time spent is greater than 50% in coordination of care (as documented) at patient's floor/unit and/or counseling patient:
[2024-09-28 07:54] LABS: Slide Review Platelets confirmed
[2024-09-28] MEDS: PANTOPRAZOLE 40 MG TABLET PO (09:10)
[2024-09-28] MEDS: SPIRONOLACTONE 25 MG TABLET PO (09:10)
[2024-09-28] MEDS: INSULIN DEGLUDEC 5 UNIT/0.05 ML (PER 5 UNITS) SC (09:11)
[2024-09-28] MEDS: DOXYCYCLINE 100 MG TABLET PO (09:11)
[2024-09-28] MEDS: LEVOFLOXACIN 250 MG TABLET 500 MG PO (09:11)
--- NOTE | 2024-09-28 09:26 | PD.RESPRO ---
Documentation for date of: 09/28/24 Subjective Subjective Interval history: pt seen at bedside today and is alert and oriented x4. pt reports that her pain is more controlled after the optimization of her pain medication from morphine to [place] Q4. she states that she spoke to Dr. Dyer yesterday and is in agreement with his plan to CTM her abdominal pain since she is not a surgical candidate. She was notified about her episode of hyperkalemia yesterday and was notified that she was given potassium removal agents in order to stabilize K+ levels. She does not have any other questions or concerns at this time. Exam Vital Signs Temp Pulse Resp BP Pulse Ox O2 Del Method O2 Flow Rate 97.5 F 63 18 102/65 95 Room Air 2 09/28/24 08:00 09/28/24 09:10 09/28/24 08:10 09/28/24 09:10 09/28/24 08:00 09/28/24 08:00 09/24/24 16:15 Narrative Exam General: , well nourished Eye: PERRL, EOMI, normal conjunctiva, no scleral icterus HENT: Normocephalic, atraumatic, normal hearing, moist oral mucosa Neck: Supple, non-tender, no lymphadenopathy Lungs: Clear to auscultation bilaterally, non-labored respirations, symmetric chest rise, no use of accessory muscles Heart: Normal S1 and S2, no S3 or S4 appreciated. Normal rate and regular rhythm, no murmurs, rubs gallops, or edema. Peripheral pulses intact bilaterally, capillary refill brisk distally Abdomen: Soft, non-tender, +distended, RUQ TTP, + Anita's sign, normal bowel sounds. No guarding or rebound tenderness. Musculoskeletal: Normal range of motion and strength, no tenderness or swelling. : Swelling of the right labia, no active bleeding appreciated, severe TTP Skin: Skin is warm, dry, no rashes or lesions. Neurologic: Alert, awake and oriented x3. CN II-XII grossly intact. No focal neuro deficits. No signs of meningeal irritation noted. Psychiatric: Cooperative, appropriate mood and affect Objective Labs 09/28/24 05:20 09/28/24 05:20 Labs: Laboratory Results - last 24 hr 09/28/24 05:20 WBC 4.1 D RBC 2.59 L Hgb 9.2 L Hct 27.9 L MCV 108 H MCH 35.5 H MCHC 33.0 RDW Std Deviation 67.3 H Plt Count 35 L D Neut % (Auto) 60 Lymph % (Auto) 23 Bullock % (Auto) 11 Eos % (Auto) 4 Baso % (Auto) 1 Neut # (Auto) 2.5 Lymph # (Auto) 1.0 Bullock # (Auto) 0.5 Eos # (Auto) 0.2 Baso # (Auto) 0.0 Immature Gran # (Auto) 0.05 H Absolute Nucleated RBC 0.00 Immature Gran % 1 H Nucleated RBC % 0 Sodium 133 L Potassium 5.6 H D Chloride 103 Carbon Dioxide 25.1 Anion Gap 5 L BUN 6 L Creatinine 0.9 Estim Creat Clear Calc 65.8 eGFR > 60 BUN/Creatinine Ratio 7 L Glucose 173 H D Calculated Osmolality 267 L Calcium 8.4 Corrected Calcium 9.8 Phosphorus 2.3 L Magnesium 1.8 Total Bilirubin 3.5 H AST 39 H ALT < 7 L Alkaline Phosphatase 106 Total Protein 5.6 L Albumin 2.3 L Globulin 3.3 Albumin/Globulin Ratio 0.7 L Misc Test Result Platelets confirmed Quality Measures Quality Measures sepsis Possible source: skin/soft tissue Blood cultures ordered: yes Assessment & Plan Assessment Current Active Medications: Generic Name Dose Route Start Last Admin Trade Name Freq PRN Reason Stop Dose Admin Hydrocodone Bitart/Acetaminophen 1 tab 09/27/24 11:48 09/27/24 19:27 Hydrocodone/Apap 10/325 Tab PO 10/02/24 11:47 1 tab Q6HR PRN Administration PAIN SCALE 4-10(Mod-Severe) Dextrose 25 ml 09/24/24 16:50 Dextrose 50%-Water Inj 50 Ml Syringe IV 10/24/24 16:49 Q15MIN PRN BG 50-70 responsive npo pt Dextrose 50 ml 09/24/24 16:50 Dextrose 50%-Water Inj 50 Ml Syringe IV 10/24/24 16:49 Q15MIN PRN BG <50 OR BG <70 & pt unresponsive Doxycycline Hyclate 100 mg 09/26/24 13:30 09/28/24 09:11 Doxycycline 100 Mg Tablet PO 10/01/24 12:00 100 mg BID CELINA Administration Glucagon 1 mg 09/24/24 16:50 Glucagon Inj 1 Mg Vial IM Q15MIN PRN BG <70, and no IV access Ibuprofen 400 mg 09/24/24 13:32 Ibuprofen Tab 400 Mg Tablet PO 10/24/24 13:31 Q6HR PRN Fever > 100.4 Ibuprofen 600 mg 09/24/24 13:33 09/25/24 08:24 Ibuprofen Tab 600 Mg Tablet PO 10/24/24 13:32 600 mg Q6H PRN Administration PAIN SCALE 1-3 (mild Insulin Degludec 5 unit 09/28/24 09:00 09/28/24 09:11 Insulin Degludec 5 Unit/0.05 Ml (Per 5 Units) SC 10/28/24 08:59 5 unit QDAY CELINA Administration Insulin Human Lispro 0 unit 09/24/24 17:00 09/28/24 07:37 Insulin Lispro (Admelog) 1 Unit/0.01 Ml Unit SC 10/24/24 16:59 1 unit AC CELINA Administration Protocol Lactulose 30 gm 09/24/24 15:15 09/28/24 05:01 Lactulose Syrup 20 Gm/30 Ml Udc PO 10/24/24 15:14 Not Given TID [facility] Protocol Levofloxacin 500 mg 09/26/24 13:30 09/28/24 09:11 Levofloxacin 250 Mg Tablet PO 10/01/24 12:00 500 mg QDAY CELINA Administration Lidocaine HCl 5 ml 09/24/24 21:51 Lidocaine Jelly 2% 5 Ml Tube TOP 10/24/24 21:59 TID PRN PAIN SCALE 4-10(Mod-Sev Protocol Pantoprazole Sodium 40 mg 09/24/24 16:45 09/28/24 09:10 Pantoprazole 40 Mg Tablet PO 10/24/24 16:44 40 mg DAILY CELINA Administration Rifaximin 550 mg 09/24/24 21:00 09/28/24 09:11 Rifaximin 550 Mg Tablet PO 10/01/24 20:59 550 mg BID CELINA Administration Scopolamine 1 mg 09/28/24 09:21 Scopolamine 1 Mg Tdsy TOP 10/24/24 16:29 X1 PRN nausea Spironolactone 25 mg 09/24/24 15:45 09/28/24 09:10 Spironolactone 25 Mg Tablet PO 10/24/24 15:44 25 mg DAILY CELINA Administration Plan #Right labial abscess Perineal/labial abscess 4.7 x 2.6 x [address] Pt endorses perineum bleeding that has occured since she noticed her abscess. Abcess gram stain and culture have yielded growth of E. coli with no growth of anaerobic bacteria. - Per gynecology, Incision and drainage has been done and Dr. Naomie Castellanos recommends pt have PT consult and be discharged with Doxycycline PO BID at discretion of primary team. Abscess cx shows E coli (GNR, facultative anaerobe) I&D performed with Dr. Naomie Castellanos Plan: - Consulted OBGYN (Dr. Naomie Castellanos), appreciate recs - Doxycycline 100 mg BID (09/26-09/30) - Levofloxacin 500 mg daily (09/26 - 09/30) - Transitioned IV morphine to [place] 10/325 mg q6h PRN. Acetaminophen max dose for pt with cirrhosis: 2 g / day. With q6h regimen, pt would get 1300 mg Tylenol / day. #UTI UA showed (+) Leukocyte esterase, 3+ blood, RBC 268, WBC 55, amorphous crystals, 1+ bacteria. Pt is currently does not have leukocytosis and is afebrile w/ no other symptoms of UTI. Ucx showed Ecoli, Enterococcus faecium Plan: - Levofloxacin 500 mg daily (09/26 - 09/30) #Hepatic encephalopathy- resolving #Cirrhosis 2/2 EtOH Mild asterixis seen bilaterally on UE exam. Pt has PMH of cirrhosis and has had multiple hospital admissions for hepatic encephalopathy. Ammonia level is 78 as of 09/24. Pt complaint of acute on chronic RUQ pain likely secondary to cirrhosis - Lactulose 30 g TID - Rifaximin 550 mg BID - Spironolactone 25 mg daily - Liver ultrasound shows abnormal thickening of the gallbladder wall. HIDA scan ordered, results pending #Thrombocytopenia - Chronic #Prolonged PT/INR, PTT 2/2 cirrhosis - Daily CBC #T2DM Pt has home med Metformin 1000 mg daily. Most recent bedside glucose is 159. - SSI #Right adrenal nodule [address] a/p Plan: - F/U outpatient
[2024-09-28] MEDS: ALBUTEROL RT 2.5 MG/0.5 ML NEBU 10 MG INH (09:33)
--- NOTE | 2024-09-28 10:54 | ESDS_ITS ---
<Statement entered by Shaila Alaniz DO - 09/28/24 15:32> I, Shaila Alaniz DO, attest that I was physically present for the son portions of the service and evaluated the patient with the resident and I reviewed and discussed the case with the resident and agree with the resident's findings and plans of care as documented above <Statement entered by Devyn Luna MD - 09/28/24 15:08> Patient was examined and case was reviewed with team including attending physician. Note reviewed, I agree with most of its contents and agree with the patient's care as documented by Wilbur Luna MD PGY-2 Planned Discharge Date 09/28/24 DS: Providers Provider Date of admission: 09/24/24 13:29 Primary care physician: Physician No Primary/Family Admitting Provider: Shaila Alaniz DO Attending Provider on Admission: Oren West MD Consults: 09/24/24 14:54 Consult to Gynecology Stat Comment: Consulting Provider: Emanuel ([facility])Alicia 09/24/24 20:13 Referral Theodore Routine Comment: Referral Respiratory Therapy Routine Comment: 09/26/24 11:06 Consult to Infectious Diseases Stat Comment: Consulting Provider: Oj Castellanos 09/27/24 08:33 Consult to General Surgery Stat Comment: Consulting Provider: Shellie Dyer Attending Provider on DC: Shaila Alaniz MD Discharging Provider: Pedro SilvaStudemodesto Luna MD DS: Diagnosis Problem List Completed Was Problem List Reviewed/Reconciled?: Yes Hospital Course Hospital Course Hospital course: Ms. Knight is a 53-year-old hemale with PMH of cirrhosis, variceal bleeding s/p band ligation, multiple recurrent admissions for hepatic encephalopathy who presented to the ED on 09/24 for right labial abscess. Pt was admitted for labial abscess I&D and management of hepatic encephalopathy. Pt was seen by Dr. Chester Castellanos who proceeded with I&D on 09/24. Pt was given Vancomycin and Zosyn from 09/25-09/26 until results for abscess culture were obtained and positive for ESBL E.coli. Pt was given Doxycycline and Levofloxacin from 09/26-09/28 in response to Infectious Disease and OBGYN recommendations after results from abscess cultures were obtained. Pt was given Lactulose, Rifaximin, and Spironolactone for maintenence therapy for chronic conditions of Cirrhosis and Hepatic Encephalopathy. Pt complained of right upper quadrant abdominal pain which she stated was a chronic issue. General surgery was consulted and pt was found to have biliary dyskinesia. General Surgery stated that patient was not a candidate for surgery and recommended outpatient followup. Pt was given IV Morphine and was transitioned to oral [place] to provide adequate pain control. Patient otherwise tolerating diet without issue. Pt is medically stable at time of discharge Follow-up with your primary care physician within 1 week of discharge. You have been prescribed [place]'s every 4 hours please take only as needed m aximum doses 3 tablets in 1 day. Please continue to take your liver cirrhosis medications as prescribed. Should your symptoms recur or worsen patient is instructed to return to the ER. #Abscess and cellulitis of Right labia 2/2 ESBL E.Coli # ESBL E. Coli and Enterococcus Faecium UTI #Hepatic encephalopathy- resolving #Biliary Dyskinesia #Cirrhosis 2/2 EtOH #Thrombocytopenia - Chronic #Prolonged PT/INR, PTT #T2DM #Right adrenal nodule Discharge summary was reviewed by Dr. Mcrae and Dr. Corbin Meléndez (Medical Student) Time Spent with Patient Time attestation: Total time spent providing and/or coordinating discharge services: Time spent: Greater than 30 minutes Exam Vital Signs Temp Pulse Resp BP Pulse Ox O2 Del Method O2 Flow Rate 97.5 F 89 18 102/65 96 Room Air 2 09/28/24 08:00 09/28/24 09:37 09/28/24 09:37 09/28/24 09:10 09/28/24 09:37 09/28/24 08:00 09/24/24 16:15 Discharge Plan Plan Patient Disposition: HOME (Self Care) Patient condition on transfer: Stable Care Plan Goals: Follow-up with your primary care physician within 1 week of discharge. You have been prescribed [place]'s every 4 hours please take only as needed maximum doses 3 tablets in 1 day. Please continue to take your liver cirrhosis medications as prescribed. Should your symptoms recur or worsen patient is instructed to return to the ER. Prescriptions/Referrals Prescriptions/Med Rec: New hydrocodone-acetaminophen 5-325 mg tablet 1 tab PO Q6H MDD 3 PRN (Reason: pain) Qty: 10 0RF doxycycline hyclate 100 mg capsule 100 mg PO BID 5 Days Qty: 10 0RF levofloxacin 500 mg tablet 500 mg PO QDAY Qty: 5 0RF Continued scopolamine base 1 mg over 3 days patch 3 day 1 patch transdermal Q3D PRN (Reason: nausea and vomiting) Qty: 4 2RF Rx Instructions: Apply as directed as needed for nausea methocarbamol 750 mg tablet 750 mg PO BID 30 Days Qty: 60 2RF Rx Instructions: Take one tablet by mouth twice a day propranolol 10 mg tablet 10 mg PO BID 30 Days Qty: 60 2RF Rx Instructions: Take one tablet by mouth twice a day pantoprazole 40 mg tablet,delayed release (DR/EC) 40 mg PO QDAY 30 Days Qty: 30 2RF Rx Instructions: Take one tablet by mouth every day before food mirtazapine [Remeron] 30 mg tablet 30 mg PO QHS 30 Days Qty: 30 1RF Rx Instructions: Take one tablet by mouth at bedtime metformin 1,000 mg tablet 1,000 mg PO QDAY 30 Days Qty: 30 2RF Rx Instructions: Take one tablet by mouth every day cholecalciferol (vitamin D3) 1,250 mcg (50,000 unit) tablet 1,250 mcg PO QWEEK 90 Days Qty: 13 0RF Rx Instructions: Take one tablet by mouth once a week Xifaxan 550 mg tablet 550 mg PO BID 30 Days Qty: 60 2RF Rx Instructions: Take one tablet by mouth twice a day multivitamin Tablet 1 tab PO QDAY 30 Days Qty: 30 2RF Rx Instructions: Take one tablet by mouth every day (DME) lancets [Acti-Petar Lancets] 28 gauge misc See Rx Instructions .Route Qty: 100 2RF Rx Instructions: As directed (DME) Accu-Chek Idania Plus test strp Strip See Rx Instructions .Route Qty: 100 2RF Rx Instructions: As directed (DME) lancets [FreeStyle Lancets] 28 gauge misc See Rx Instructions .Route Qty: 100 5RF Rx Instructions: Use TID and PRN As directed (DME) Freestyle InsuLinx Test Strips Strip See Rx Instructions .Route Qty: 100 5RF Rx Instructions: Test TID and PRN As directed (DME) blood-glucose meter [FreeStyle [place] Lite] Kit See Rx Instructions .Route Qty: 1 0RF Rx Instructions: As directed furosemide [Lasix] 20 mg tablet 20 mg PO QDAY Qty: 90 0RF Rx Instructions: Hold if SBP drops below 100 and DBP below 60 mmHg spironolactone 25 mg tablet 50 mg PO QDAY MDD 50 mg 30 Days Qty: 60 2RF Rx Instructions: Take two tablets by mouth once a day lactulose 10 gram packet 30 g PO TID 90 Days Qty: 30 0RF Discontinued hydrocodone-acetaminophen 5-325 mg tablet 1 tab PO Q8H MDD 3 tablets PRN (Reason: pain) 30 Days Qty: 45 0RF Rx Instructions: Take one tablet by mouth up to three times daily Referrals: No Primary/Family,Physician [Primary Care Provider] - Patient/Caregiver Discharge Instructions Education Materials: Infec Prevent Spread, Abscess Drainage Print Language: Greenlandic Stand Alone Forms: Mervat Award Info., Patient Portal Info Letter Discharge Order Discharge Orders: Discharge (Routine); Ordered 09/28/24 Ordered By: Devyn Luna Quality Discharge Quality Measures none
== END 2024-09-28 13:03 | disposition home or self-care (01) | DRG 518 ==
LOC: SERX 13:32 → SERHOLD 13:38 → S3SX 19:42
PROVIDERS: Obstetrics & Gynecology; Student in an Organized Health Care Education/Training Program; Admitting Provider Internal Medicine; Emergency Provider Family Medicine; Visit Provider Obstetrics & Gynecology
PROC: (CPT 57135; principal; 2024-09-24 14:00)
DX: N76.4 Abscess of vulva (principal); F10.10 Alcohol abuse, uncomplicated; K76.82 Hepatic encephalopathy; E27.8 Other specified disorders of adrenal gland; E83.42 Hypomagnesemia; Z79.84 Long term (current) use of oral hypoglycemic drugs; K70.31 Alcoholic cirrhosis of liver with ascites; K70.40 Alcoholic hepatic failure without coma; B95.2 Enterococcus as the cause of diseases classified elsewhere; E11.65 Type 2 diabetes mellitus with hyperglycemia; G89.29 Other chronic pain; D69.6 Thrombocytopenia, unspecified; K81.0 Acute cholecystitis; R79.1 Abnormal coagulation profile; K82.8 Other specified diseases of gallbladder; D53.9 Nutritional anemia, unspecified; N76.2 Acute vulvitis; N39.0 Urinary tract infection, site not specified; Z79.899 Other long term (current) drug therapy; Z98.891 History of uterine scar from previous surgery
CPT/HCPCS: 36415; 71045; 74177; 76705; 78227; 80053; 80202; 80329; 81001; 82140; 83036; 83605; 83615; 83690; 83735; 84100; 84145; 84703; 85025; 85610; 85730; 87040; 87070; 87075; 87077; 87086; 87186; 87205; 87811; 93005; 93225; 94640; 96361; 96365; 96375; 96376; 99284; A4217; A4649; A9537; J0696; J1815; J2250; J2270; J2543; J2704; J2805; J3010; J3370; J3375; J3475; J3490; J7030; J7050; Q9967; A9270; G0480

== ENCOUNTER 2024-10-01 13:55 | Outpatient (AMB) | payer MEDICAID, SELFPAY ==
[2024-10-01 14:13] VITALS: BP 85/50; PULSE 68; RESP 19; TEMP 36.6; O2SAT 96
--- NOTE | 2024-10-01 14:13 | PD.RESCLINIC ---
Vital Signs 10/01/24 14:13 Weight Measurement Method Wheelchair BP 85/50 L Blood Pressure Source Automatic Cuff Blood Pressure Location Right Upper Arm Position Sitting Respiration 19 Pulse 68 Pulse Source Monitor Temp 97.8 F Temp Source Temporal Artery Scan Pulse Oximetry (%) 96 Oxygen Delivery Method Room Air Allergies/Meds Allergies & Medications Allergies latex Allergy (Severe, Verified 09/24/24 08:25) Peter GILL Intake Visit Data Collection New Patient or Established: Established Patient (seen at [facility] within 3 years) Seen by Clinical Staff ONLY (RN/MA): No Reason for Visit:: HOSPITAL FOLLOW UP/PAIN ON LOWER BACK Pain Present Currently: Yes Pain Location: Back Pain scale:: 10 Sports Media Required: No PCP or OBGYN visit in last 3 months: Yes Date of Last PCP or OBGYN visit: 09/28/24 Hx Now: No Do You Feel Safe at Home: Yes Authorities Contacted: N/A Smoking Status Smoking Status: Never smoker Immunization / Flu Flu Vaccine in the Last 12 Months: No Flu Vaccine Exclusion Criteria: No Exclusion Criteria Past Medical History Past Medical History NEUROLOGIC: Positive Neurological Disorders, Migraine and Spinal Cord Injury; Negative Seizures CARDIAC: Positive Hypotension; Negative Cardiac Disorders or Congestive Heart Failure RESPIRATORY: Negative Chronic Obstructive Pulmonary Disease (COPD) or Asthma GASTROINTESTINAL: Positive Gastrointestinal Disorders, Cirrhosis (end stage liver disease), Gastrointestinal Bleed, Esophageal Varices and Hemorrhoids GENITOURINARY: Positive Renal Disease REPRODUCTIVE: Positive Endometriosis and Previous Pregnancies ENDOCRINE: Positive Endocrine Disorders and Diabetes Mellitus Type 2; Negative Diabetes Mellitus Type 1 HEMATOLOGIC: Positive Blood Disorders and Anemia; Negative Sickle Cell Disease PSYCHO/SOCIAL: Positive Depression and Anxiety OTHER HISTORY: Positive Chicken Pox and Measles; Negative Autoimmune Disease, Blood Transfusions, Blood Transfusion Reaction or Cancer Family History FAMILY HISTORY: Positive Family Psychiatric Problems and Family Cancer; Negative Family Respiratory Disorders, Family Cardiac Disorders, Family Gastrointestinal Problems, Family Surgery or Family Anesthesia Reaction Surgical History SURGICAL: Positive Section Social History SMOKING STATUS: Smoking status: Never smoker SECOND HAND EXPOSURE: second hand exposure: No ALCOHOL: Alcohol Intake: Former ALCOHOL FREQUENCY: Alcohol Intake Frequency: 3 or More Drinks per Day HOUSING: Housing: House LIVES WITH: Lives With: Family Patient Portal Questionaires PHQ-9 PHQ-2 Over the last 2 weeks, how often have you been bothered by any of the following problems? 1. Little interest or pleasure in doing things: not at all PHQ-9 8. Moving or speaking so slowly that other people could have noticed? - Or the opposite - being so fidgety or restless that you have been moving around a lot more than usual: not at all Source: Developed by Drs. Shady Eli, Pilar Brunson, Jordan Worthy and colleagues, with an educational viry from [employer]. Social History Living Situation History Housing: House Housing Other:: Pt lives with mom and kids Tobacco History Smoking Status: Never smoker Second Hand Smoke Exposure: No Alcohol History Alcohol Intake: Former Alcohol Intake Frequency: 3 or More Drinks per Day Alcohol Intake Frequency Other:: 5 drinks a day Domestic Abuse History Do You Feel Safe at Home: Yes Review of Systems Report any current symptoms Only answer those that you have currently: Past Medical History Past Medical History Have you ever been diagnosed with any of the following: Neurological Problems Seizures: No Migraine: Yes Spinal Cord Injury: Yes Cardiology Problems Congestive Heart Failure: No Hypotension: Yes Respiratory Problems Chronic Obstructive Pulmonary Disease (COPD): No Asthma: No Stomache/Intestinal Problems Cirrhosis: Yes (end stage liver disease) Gastrointestinal Bleed: Yes Esophageal Varices: Yes Hemorrhoids: Yes Genital/Urinary Problems Renal Disease: Yes Reproductive Problems Endometriosis: Yes Previous Pregnancies: Yes Endocrine Problems Diabetes Mellitus Type 1: No Diabetes Mellitus Type 2: Yes Blood Problems Anemia: Yes Sickle Cell Disease: No Psychologic Problems Depression: Yes Anxiety: Yes Other Problems Autoimmune Disease: No Blood Transfusions: No Blood Transfusion Reaction: No Chicken Pox: Yes Measles: Yes Cancer: No History of Present Illness HPI Narrative Pt examined at bedside today. Was recently admitted from 09/24-09/28/24 for I&D of E coli labial abscess, ID Dr. Castellanos was consulted. She was discharged with doxy and levofloxacin for completion of 7 day course (09/26-10/03). Has been having at least 3 bouts of diarrhea daily likely secondary to antibiotics, had decreased dose of lactulose in the meantime. 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 Has 4 days worth of [place] at home, has been taking q8hr and more as needed. Endorses chronic back pain and abdominal bloating. Per last note, patient had hepatology appointment scheduled for 09/28/24 but has not been in touch with liver transplant center. BG levels prior to admission 120-160s per family. Recheck BP on exam 98/50. Review of Systems Review of Systems Narrative Review of Systems: Review of Systems General: Denies fevers or chills HEENT: Denies congestion or sore throat Heart: Denies chest pain or palpitations Lungs: Denies shortness of breath or cough Abdomen: Diarrhea, bloating. Denies nausea, vomiting, constipation, bright red blood per rectum or melena Genitourinary: Groin pain secondary to I&D. Denies frequency, urgency, dysuria, or hematuria Musculoskeletal: Chronic back pain. Denies joint pain or myalgias Neurology: Denies any changes in vision, weakness or difficulty speaking Review of systems otherwise negative except what is mentioned above. Objective/Exam Narrative Physical exam: Physical Exam General: Pleasant female in wheelchair. Awake and in no acute distress. Conversational and non-toxic appearing. HEENT: Normocephalic, atraumatic, mucous membranes moist. Heart: Regular rate and rhythm, normal S1 and S2, no murmurs. Lungs: Clear to auscultation with no wheezing or crackles. Abdomen: Soft, nondistended, nontender, positive bowel sounds. No guarding or rebound tenderness. Neurologic: Alert and oriented x3, no gross neurological deficit, and patient able to move all 4 extremities. Extremities: No edema. Assessment & Plan Diagnosis / Problem List (1) Cirrhosis: Status: Acute Qualifiers: Ascites presence: without ascites Hepatic cirrhosis type: alcoholic cirrhosis Qualified Code(s): K70.30 - Alcoholic cirrhosis of liver without ascites Assessment & Plan: Secondary to extensive history of alcohol abuse, cessation since 2023. History of variceal bleed s/p banding and recurrent episodes of hepatic encephalopathy. T bili since last admission 09/28 downtrending towards baseline. 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 Continues to endorse abdominal pain and bloating. Likely secondary to biliary dyskinesia (ejection fraction of 15%) per gallbladder nuclear scan on 09/26/24. Not candidate for surgery at this time, to follow up with general surgery if becomes issue. Options for pain management continue to be limited due to cirrhosis and hx of varcies (avoiding NSAIDs and limiting tylenol). Plan: - Continue Rifaxmin - Continue Lactulose ( 2-3 BMs a day) 30 grams TID - Continue [place] 5 up to 3x/day - Instructed to reschedule hepatology appointment - Encouraged patient to follow up with liver transplant center (2) Low back pain: Status: Acute Qualifiers: Back pain laterality: unspecified Chronicity: chronic Sciatica presence: unspecified whether sciatica present Qualified Code(s): M54.50 - Low back pain, unspecified; G89.29 - Other chronic pain Assessment & Plan: Chronic back pain since 2018 s/p work injury. Previous MRI showed minimal disc herniation in 2018. Was following neurosurgeon in [place]. Unclear history. Now nonambulatory, in wheelchair. Plan: - Start 5% lidocaine patches daily - Continue methocarbamol 750 mg BID - [place] as above (3) Diabetes mellitus with hyperglycemia: Status: Acute Qualifiers: Diabetes mellitus intermediate manager insulin use: unspecified intermediate manager insulin use status Diabetes mellitus type: type 2 Qualified Code(s): E11.65 - Type 2 diabetes mellitus with hyperglycemia Assessment & Plan: A1c 6.0 on 09/25/24 however fasting BG continues to be high (120-160s) prior to admission. Plan: - Increase metformin from 1000 to 1500 mg daily - Refilled Lancets and test strips - Educated patient on diabetes and diet/lifestyle modifications - Continue with Accu-checks and sugar log - Pending diabetic eye exam with opthlamologist Office Procedures [facility] Level of Care Nursing/Assessment Patient Status: Established Patient Nursing Assessment/Reassessment: Medication Reconciliation, Update PMH in EMR and Vital Signs Coordination of Care: Complex Care and Chronic Disease 1-5, Consent,records obtained, informed consent, 1 Ins Authorization, Lab and Imaging orders and Results/Orders obtained Established Patient Charge Established Patient Point Assignment: 95 Established Patient Point Charge: Level 3 (80-115)
== END 2024-10-01 14:57 | disposition home or self-care (01) ==
LOC: HODAHC 13:55
PROVIDERS: Supervising Provider Internal Medicine
DX: R19.7 Diarrhea, unspecified (principal); R14.0 Abdominal distension (gaseous); M54.50 Low back pain, unspecified; K70.30 Alcoholic cirrhosis of liver without ascites; E11.65 Type 2 diabetes mellitus with hyperglycemia; Z79.4 Long term (current) use of insulin
CPT/HCPCS: 99213; G0463

== ENCOUNTER 2024-10-10 16:49 | Inpatient (IN) | payer MEDICAID, SELFPAY ==
[2024-10-10] VITALS (9 sets, daily range): BP systolic 81–102; BP diastolic 47–57; PULSE 52–56; RESP 14–94; TEMP 36.4–37; O2SAT 95–99; BMI 28.3
--- NOTE | 2024-10-10 16:59 | EKG_ITS ---
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1970 Requested By: Rocky Kohli Order Number: [id number] Reading MD: Rocky Kohli Measurements Intervals [place] Rate: 58 P: 10 [place]: 127 QRS: 33 QRSD: 89 T: 1 QT: 322 QTc: 318 Interpretive Statements SINUS BRADYCARDIA WITH OCCASIONAL SUPRAVENTRICULAR PREMATURE COMPLEXES MODERATE T-WAVE ABNORMALITY, CONSIDER LATERAL ISCHEMIA [-0.1+ mV T-WAVE IN I/aVL/V5/V6] MODERATE T-WAVE ABNORMALITY, CONSIDER INFERIOR ISCHEMIA [-0.1+ mV T-WAVE IN II/aVF] Compared to ECG 09/24/2024 09:35:54 Possible ischemia now present Sinus rhythm no longer present Short [place] interval no longer present T-wave abnormality still present /store/S0/[id number]/[id number].pdf
--- NOTE | 2024-10-10 17:00 | PD.EDADULT ---
ED General RME/HPI General Chief complaint: General Adult/Misc Complain Stated complaint: BODY PAIN Time Seen by Provider: 10/10/24 16:58 Arrival date/time: 10/10/24 16:49 CC: Body pain HPI patient ran out of her Percocets 2 days ago now complaining of body pain patient is liver failure patient with a history of alcoholism is now on the transplant list. Denies chest pain shortness of breath or difficulty breathing no other complaints. EMS reports stable vital signs and route. Patient also states she has pain from a cyst removal on her upper inner thigh close to her vaginal opening. It was performed here. Patient also states that she recently had a cyst removed from her inner thigh at this facility. Related Data Home Medications ?Medication ?Instructions ?Recorded ?Confirmed spironolactone 50 mg tablet 50 mg PO DAILY 10/11/24 10/11/24 Previous Rx's ?Medication ?Instructions ?Recorded lactulose 10 gram oral packet 30 g PO TID 90 days #30 ea 07/20/24 blood sugar diagnostic (Accu-Chek #100 ea 07/23/24 Idania Plus test strips) lancets 28 gauge (Acti-Petar #100 ea 07/23/24 Lancets) blood-glucose meter (FreeStyle #1 ea 08/10/24 [place] Lite kit) furosemide 20 mg tablet (Lasix) 20 mg PO QDAY #90 tabs 08/24/24 cholecalciferol (vitamin D3) 1,250 1,250 mcg PO QWEEK 3 months #13 09/10/24 mcg (50,000 unit) tablet tabs mirtazapine 30 mg tablet (Remeron) 30 mg PO QHS 1 month #30 tabs 09/10/24 pantoprazole 40 mg tablet,delayed 40 mg PO QDAY 1 month #30 tabs 09/10/24 release levofloxacin 500 mg tablet 500 mg PO QDAY #5 tabs 09/28/24 blood sugar diagnostic (Freestyle #100 ea 10/01/24 In[employer]x Test Strips) lancets 28 gauge (FreeStyle #100 ea 10/01/24 Lancets) lidocaine 5 % topical patch 1 patch topical QDAY 1 month #30 ea 10/01/24 methocarbamol 750 mg tablet 750 mg PO BID 1 month #60 tabs 10/01/24 rifaximin 550 mg tablet (Xifaxan) 550 mg PO BID 1 month #60 tabs 10/01/24 hydrocodone 5 mg-acetaminophen 325 1 tab PO Q6H PRN pain #60 tabs 10/05/24 mg tablet midodrine 10 mg tablet 10 mg PO QID 14 days #56 tabs 10/14/24 sitagliptin phosphate 50 mg tablet 50 mg PO QDAY 14 days #14 tabs 10/14/24 (Januvia) Allergies Allergy/AdvReac Type Severity Reaction Status Date / Time latex Allergy Severe Hives Verified 10/10/24 17:35 Review of Systems Review of Systems Narrative Review of Systems: GEN: No fever, no chills, no weight loss EYES: No discharge, no visual changes, no pain HEENT: No ear pain, no congestion, no sore throat PULM: No shortness of breath, no cough, no congestion CV: No chest pain, no dyspnea on exertion, no palpitations GI: No nausea, no vomiting, no diarrhea, no pain, no constipation : No frequency, no urgency, no dysuria MUSC/SKEL: No joint pain, no back pain SKIN: No rash PSYCH: No hallucinations, no depression HEME/LYMPH: No easy bleeding or bruising tendencies NEURO: No weakness, no headache, + body aches Past Medical History Past Medical History NEUROLOGIC: Positive Neurological Disorders, Migraine and Spinal Cord Injury; Negative Seizures CARDIAC: Positive Hypotension; Negative Cardiac Disorders or Congestive Heart Failure RESPIRATORY: Negative Chronic Obstructive Pulmonary Disease (COPD) or Asthma GASTROINTESTINAL: Positive Gastrointestinal Disorders, Cirrhosis (end stage liver disease), Gastrointestinal Bleed, Esophageal Varices and Hemorrhoids GENITOURINARY: Positive Renal Disease REPRODUCTIVE: Positive Endometriosis and Previous Pregnancies MUSCULOSKELETAL: Positive Musculoskeletal Disorders ENDOCRINE: Positive Endocrine Disorders and Diabetes Mellitus Type 2; Negative Diabetes Mellitus Type 1 HEMATOLOGIC: Positive Blood Disorders and Anemia; Negative Sickle Cell Disease PSYCHO/SOCIAL: Positive Depression and Anxiety OTHER HISTORY: Positive Chicken Pox and Measles; Negative Autoimmune Disease, Blood Transfusions, Blood Transfusion Reaction or Cancer Family History FAMILY HISTORY: Positive Family Psychiatric Problems and Family Cancer; Negative Family Respiratory Disorders, Family Cardiac Disorders, Family Gastrointestinal Problems, Family Surgery or Family Anesthesia Reaction Surgical History SURGICAL: Positive Section Social History SMOKING STATUS: Never smoker SECOND HAND EXPOSURE: No SUBSTANCE USE: marijuana ED Exam Narrative Physical exam: [General: In mild discomfort but not in any acute distress Head normocephalic HEENT: Eyes pupils are PERRL EOMs are intact although the subsystems of HEENT are within acceptable limits Neck is supple nontender no JVD no edema Chest equal chest rise nontender to palpation Respiratory: Clear to auscultation no wheezes crackles or rubs CV: Rate rhythm is regular no murmurs rubs or clicks Abdomen is grossly distended secondary to ascites, soft nontender no masses positive bowel sounds all 4 quadrants Back: No CVA tenderness no spinous process tenderness from cervical spine thoracic and lumbar spine Skin: Cachectic appearing, intact no petechiae rash induration ulceration or crepitus. Note: Right labial abscess site is clean dry and intact the incision close no surrounding tenderness or erythema. Extremities: Moving all extremity against resistance cap refill less than 2 seconds neurosensory intact Neuro: Awake alert oriented x3 Glascow coma 15 no focal deficits] Course Course Course Narrative: Patient's case and laboratory results and clinical findings discussed with Dr. Ta resident for Dr. Huerta who agrees to accept the patient for admission. Quality Measures none Orders Category Date Time Status EKG (ED ONLY) *Do not use* NOW Care 10/10/24 16:59 Completed Saline [Insert IV] NOW Care 10/10/24 16:59 Active EKG (ED Only) Stat Exams 10/10/24 16:59 Draft Ammonia Stat Lab 10/10/24 20:13 Completed B-Type Natriuretic Peptide Stat Lab 10/10/24 17:57 Completed CBC Stat Lab 10/10/24 17:57 Completed Comprehensive Metabolic Panel Stat Lab 10/10/24 17:57 Completed Drug Screen,Urine Stat Lab 10/10/24 19:14 Completed LDH (Lactate Dehydrogenase) Stat Lab 10/10/24 17:57 Completed Magnesium Stat Lab 10/10/24 17:57 Completed Partial Thromboplastin Time Stat Lab 10/10/24 17:57 Completed Prothrombin Time with INR Stat Lab 10/10/24 17:57 Completed Troponin I Stat Lab 10/10/24 17:57 Completed Urinalysis, C/S if Indicated Stat Lab 10/10/24 19:14 Completed Urine Culture Stat Lab 10/10/24 19:14 Completed Sodium Chloride 0.9% 1000 ml [Ns] 1,000 ml Med 10/10/24 19:30 Discontinued IV 999 mls/hr Sodium Chloride 0.9% 500 ml [Ns] 500 ml Med 10/10/24 18:05 Discontinued IV 999 mls/hr Vital Signs Vital signs: Vital Signs Temperature 97.5 F 10/10/24 17:11 Pulse Rate 55 L 10/10/24 17:11 Respiratory Rate 18 10/10/24 17:11 Blood Pressure 81/47 L 10/10/24 17:11 Pulse Oximetry (%) 97 10/10/24 17:11 Oxygen Delivery Method Room Air 10/10/24 17:11 Discharge Plan Plan Patient Disposition: Other Care w/in Hosp ([facility]) Patient condition on transfer: Stable Problem List Clinical Impression: LILY (acute kidney injury), Cirrhosis, Anemia, Thrombocytopenia, Hyperkalemia Patient/Caregiver Discharge Instructions Discharge Activity: as per physical therapy MDM Labs/Rad/Tests considered, not Ordered Describe details: CBC shows no leukocytosis there is anemia with a hemoglobin of 9.4 hematocrit of 28.2 platelets at 44. Coags show PT of 21.4 INR of 2.1 with PTT of 38.0 CMP shows a sodium 138 potassium of 5.5 BUN is elevated at 33 creatinine 1.8 T. bili at 3.9 AST elevated at 48 ALT alk phos unremarkable note: The BUN and creatinine are significantly elevated from prior laboratory results. BNP at 965 UDS is positive for opiates and fentanyl. Chronic Illness/Social Conditions which may negatively complicate care or outcome(s)-explain: Liver disease EKG EKG not done Imaging Radiology reports / interpretation(s): I am concerned that this patient has LILY which is not previously seen in her previous admissions under laboratory results. The pancytopenia appears to be chronic in nature although the abdomen is distended the patient states that she has not been able to get fluid out of it because is not been sufficient fluid for tapping. Medication Administration(s) Medication Administration History Acetaminophen (Acetaminophen 325 Mg Tablet) 650 mg PO Q6H PRN PRN Reason: Fever >100.4 or pain 1-3 Stop: 11/09/24 21:04 Last Admin: 10/13/24 21:54 Dose: 650 mg Documented By: Admin: 10/12/24 21:12 Dose: 650 mg Documented By: [email or web address] Dextrose (Dextrose 50%-Water Inj 50 Ml Syringe) 25 ml IV Q15MIN PRN PRN Reason: BG 50-70 responsive npo pt Stop: 11/09/24 21:15 Last Admin: 10/10/24 21:36 Dose: 25 ml Documented By: JAMIN Dextrose (Dextrose 50%-Water Inj 50 Ml Syringe) 50 ml IV Q15MIN PRN PRN Reason: BG <50 OR BG <70 & pt unresponsive Stop: 11/09/24 21:15 Furosemide (Furosemide Inj 10 Mg/Ml Vial 2 Ml) 20 mg IVP QDAY [facility] Stop: 11/12/24 08:59 Last Admin: 10/14/24 09:23 Dose: 20 mg Documented By: Admin: 10/13/24 09:43 Dose: 20 mg Documented By: EFFIE Glucagon (Glucagon Inj 1 Mg Vial) 1 mg IM Q15MIN PRN PRN Reason: BG <70, and no IV access Hydromorphone HCl (Hydromorphone Inj 2 Mg/Ml Vial) 0.5 mg IVP Q4HR PRN PRN Reason: PAIN SCALE 7-10 (Severe Stop: 10/15/24 21:04 Piperacillin/Tazobactam/Dextrose (Zosyn) 3.375 gm in 50 mls @ 12.5 mls/hr IV Q8HR [facility] Stop: 10/18/24 13:59 Last Admin: 10/14/24 05:26 Dose: 12.5 mls/hr Documented By: Infusion: 10/14/24 01:54 Dose: Infused Documented By: Admin: 10/13/24 21:54 Dose: 12.5 mls/hr Documented By: Infusion: 10/13/24 17:19 Dose: Infused Documented By: Admin: 10/13/24 13:19 Dose: 12.5 mls/hr Documented By: Infusion: 10/13/24 09:40 Dose: Infused Documented By: Admin: 10/13/24 05:40 Dose: 12.5 mls/hr Documented By: Infusion: 10/13/24 01:12 Dose: Infused Documented By: Admin: 10/12/24 21:12 Dose: 12.5 mls/hr Documented By: Infusion: 10/12/24 17:18 Dose: Infused Documented By: Admin: 10/12/24 13:18 Dose: 12.5 mls/hr Documented By: Infusion: 10/12/24 09:11 Dose: Infused Documented By: Admin: 10/12/24 05:11 Dose: 12.5 mls/hr Documented By: Infusion: 10/12/24 02:26 Dose: Infused Documented By: Admin: 10/11/24 22:26 Dose: 12.5 mls/hr Documented By: Infusion: 10/11/24 17:40 Dose: Infused Documented By: Admin: 10/11/24 13:40 Dose: 12.5 mls/hr Documented By: EFFIE Insulin Human Lispro (Insulin Lispro (Admelog) 1 Unit/0.01 Ml Unit) 0 unit SC AC CELINA; Protocol Stop: 11/10/24 07:29 Last Admin: 10/14/24 09:17 Dose: Not Given Documented By: Non-Admin Reason: Per Protocol Admin: 10/13/24 17:18 Dose: 1 unit Documented By: EFFIE Co-signed By: ANNIKA Admin: 10/13/24 11:39 Dose: 1 unit Documented By: EFFIE Co-signed By: KENIA Admin: 10/13/24 09:43 Dose: Not Given Documented By: EFFIE Non-Admin Reason: BG 109 Admin: 10/12/24 16:45 Dose: 1 unit Documented By: KAREN Co-signed By: ANNIKA Admin: 10/12/24 12:00 Dose: 1 unit Documented By: KAREN Co-signed By: VERNON Admin: 10/12/24 07:30 Dose: Not Given Documented By: KAREN Non-Admin Reason: Per Protocol Admin: 10/11/24 18:30 Dose: Not Given Documented By: EFFIE Non-Admin Reason: B 117 Admin: 10/11/24 12:39 Dose: Not Given Documented By: EFFIE Non-Admin Reason: BG 101 Admin: 10/11/24 08:12 Dose: Not Given Documented By: ALMA(2) Non-Admin Reason: Per Protocol Lactulose (Lactulose Syrup 20 Gm/30 Ml Udc) 10 gm PO TID CELINA; Protocol Stop: 11/12/24 13:59 Last Admin: 10/14/24 05:26 Dose: 10 gm Documented By: [email or web address] Admin: 10/13/24 21:49 Dose: Not Given Documented By: MICHAEL Non-Admin Reason: hold pt had > 3 BM Admin: 10/13/24 13:20 Dose: 10 gm Documented By: EFFIE Midodrine (Midodrine 5 Mg Tablet) 15 mg PO TID [facility] Stop: 11/11/24 21:59 Last Admin: 10/14/24 05:25 Dose: 15 mg Documented By: Admin: 10/13/24 21:54 Dose: 15 mg Documented By: Admin: 10/13/24 13:19 Dose: 15 mg Documented By: Admin: 10/13/24 05:40 Dose: 15 mg Documented By: Admin: 10/12/24 21:11 Dose: 15 mg Documented By: MICHAEL Ondansetron HCl (Ondansetron Inj 2 Mg/Ml Inj 2 Ml) 4 mg IVP Q6H PRN; Protocol PRN Reason: NAUSEA OR VOMITING Stop: 11/09/24 21:04 Pantoprazole Sodium (Pantoprazole 40 Mg Tablet) 40 mg PO QDAY ECLINA; Protocol Stop: 11/12/24 08:59 Last Admin: 10/14/24 09:18 Dose: 40 mg Documented By: Admin: 10/13/24 09:43 Dose: 40 mg Documented By: EFFIE Rifaximin (Rifaximin 550 Mg Tablet) 550 mg PO BID [facility] Stop: 10/18/24 10:14 Last Admin: 10/14/24 09:18 Dose: 550 mg Documented By: Admin: 10/13/24 21:54 Dose: 550 mg Documented By: Admin: 10/13/24 09:43 Dose: 550 mg Documented By: Admin: 10/12/24 21:11 Dose: 550 mg Documented By: Admin: 10/12/24 09:19 Dose: 550 mg Documented By: Admin: 10/11/24 20:16 Dose: 550 mg Documented By: Admin: 10/11/24 12:30 Dose: 550 mg Documented By: EFFIE Spironolactone (Spironolactone 25 Mg Tablet) 25 mg PO DAILY [facility] Stop: 11/11/24 10:59 Last Admin: 10/14/24 09:18 Dose: 25 mg Documented By: Admin: 10/13/24 09:43 Dose: 25 mg Documented By: Admin: 10/12/24 13:32 Dose: Not Given Documented By: AC Non-Admin Reason: Cancelled by Provider Comments: BP 85/49 MAP 61 Tramadol HCl (Tramadol Hcl 50 Mg Tablet) 50 mg PO Q6HR PRN PRN Reason: PAIN SCALE 4-6 (Moderate Stop: 10/15/24 21:04 Last Admin: 10/13/24 17:09 Dose: 50 mg Documented By: Admin: 10/13/24 11:39 Dose: 50 mg Documented By: Admin: 10/13/24 05:46 Dose: 50 mg Documented By: Admin: 10/12/24 16:46 Dose: 50 mg Documented By: Admin: 10/12/24 09:19 Dose: 50 mg Documented By: Admin: 10/11/24 20:20 Dose: 50 mg Documented By: Admin: 10/11/24 13:25 Dose: 50 mg Documented By: Admin: 10/11/24 04:52 Dose: 50 mg Documented By: JAMIN Discontinued Medications Furosemide (Furosemide Inj 10 Mg/Ml Vial 2 Ml) 20 mg IVP X1 ONE Stop: 10/12/24 10:57 Last Admin: 10/12/24 13:31 Dose: Not Given Documented By: AC Non-Admin Reason: Cancelled by Provider Comments: BP 85/49 Hydromorphone HCl (Hydromorphone Inj 2 Mg/Ml Vial) 1 mg IVP Q4HR PRN PRN Reason: PAIN SCALE 7-10 (Severe Stop: 10/15/24 21:04 Sodium Chloride (Ns) 500 mls @ 999 mls/hr IV .Q31M ONE Stop: 10/10/24 18:35 Last Infusion: 10/10/24 19:14 Dose: Infused Documented By: Admin: 10/10/24 18:39 Dose: 999 mls/hr Documented By: JOAN Sodium Chloride (Ns) 1,000 mls @ 999 mls/hr IV .Q1H1M ONE Stop: 10/10/24 20:30 Last Infusion: 10/10/24 20:44 Dose: Infused Documented By: Admin: 10/10/24 19:43 Dose: 999 mls/hr Documented By: JAMIN Sodium Chloride (Ns) 1,000 mls @ 100 mls/hr IV .Q10H [facility]EL[facility] Stop: 11/09/24 20:59 Last Infusion: 10/11/24 23:18 Dose: Infused Documented By: Admin: 10/11/24 09:54 Dose: Not Given Documented By: DOYLE Non-Admin Reason: Discontinued Admin: 10/10/24 21:52 Dose: 100 mls/hr Documented By: JAMIN Albumin Human (Albuminar-25 Ivpb) 25 gm in 100 mls @ 100 mls/hr IV QDAY [facility] Stop: 10/13/24 21:08 Last Infusion: 10/10/24 23:27 Dose: Infused Documented By: Admin: 10/10/24 21:53 Dose: 100 mls/hr Documented By: JAMIN Albumin Human (Albuminar-25 Ivpb) 25 gm in 100 mls @ 100 mls/hr IV X1 ONE Stop: 10/11/24 00:41 Last Infusion: 10/11/24 01:05 Dose: Infused Documented By: Admin: 10/11/24 00:05 Dose: 100 mls/hr Documented By: JAMIN Albumin Human (Albuminar-25 Ivpb) 12.5 gm in 50 mls @ 50 mls/hr IV X1 ONE Stop: 10/11/24 06:43 Last Infusion: 10/11/24 07:23 Dose: Infused Documented By: VERNON(2) Admin: 10/11/24 06:28 Dose: 50 mls/hr Documented By: JAMIN Ceftriaxone Sodium/Dextrose (Rocephin/D5w 1gm Iv Premix) 1 gm in 50 mls @ 100 mls/hr IV QDAY [facility] Stop: 10/18/24 08:59 Albumin Human (Albuminar-25 Ivpb) 25 gm in 100 mls @ 100 mls/hr IV TID [facility] Stop: 10/12/24 13:59 Last Admin: 10/12/24 05:11 Dose: 100 mls/hr Documented By: Infusion: 10/11/24 22:34 Dose: Infused Documented By: Admin: 10/11/24 21:31 Dose: 100 mls/hr Documented By: Infusion: 10/11/24 14:39 Dose: Infused Documented By: Admin: 10/11/24 13:39 Dose: 100 mls/hr Documented By: EFFIE Piperacillin/Tazobactam/Dextrose (Zosyn) 3.375 gm in 50 mls @ 100 mls/hr IV X1 ONE Stop: 10/11/24 08:29 Last Infusion: 10/11/24 23:18 Dose: Infused Documented By: Admin: 10/11/24 09:50 Dose: 100 mls/hr Documented By: DOYLE Comments: administration pending availability of IV pump Albumin Human (Albuminar-25 Ivpb) 25 gm in 100 mls @ 100 mls/hr IV X1 ONE Stop: 10/12/24 12:44 Last Infusion: 10/12/24 13:01 Dose: Infused Documented By: Admin: 10/12/24 12:01 Dose: 100 mls/hr Documented By: KAREN Albumin Human (Albuminar-25 Ivpb) 25 gm in 100 mls @ 100 mls/hr IV X1 ONE Stop: 10/12/24 14:37 Last Infusion: 10/12/24 14:58 Dose: Infused Documented By: Admin: 10/12/24 13:58 Dose: 100 mls/hr Documented By: KAREN Lactulose (Lactulose Syrup 20 Gm/30 Ml Udc) 20 gm PO TID CELINA; Protocol Stop: 11/09/24 21:59 Last Admin: 10/13/24 05:40 Dose: 20 gm Documented By: Admin: 10/12/24 21:13 Dose: Not Given Documented By: MICHAEL Non-Admin Reason: Patient Refused Admin: 10/12/24 13:16 Dose: 20 gm Documented By: Admin: 10/12/24 05:11 Dose: 20 gm Documented By: Admin: 10/11/24 21:30 Dose: Not Given Documented By: ALMA Non-Admin Reason: Patient Refused Admin: 10/11/24 13:39 Dose: 20 gm Documented By: Admin: 10/11/24 06:28 Dose: Not Given Documented By: JAMIN Non-Admin Reason: Patient Refused Admin: 10/10/24 22:21 Dose: 20 gm Documented By: JAMIN Midodrine (Midodrine 5 Mg Tablet) 10 mg PO TID CELINA Stop: 11/09/24 21:59 Last Admin: 10/12/24 13:17 Dose: 10 mg Documented By: Admin: 10/12/24 05:11 Dose: 10 mg Documented By: Admin: 10/11/24 21:30 Dose: 10 mg Documented By: Admin: 10/11/24 14:01 Dose: 10 mg Documented By: Admin: 10/11/24 05:52 Dose: 10 mg Documented By: Admin: 10/10/24 21:50 Dose: 10 mg Documented By: JAMIN Pantoprazole Sodium (Pantoprazole Inj 40 Mg Vial) 40 mg IVP QDAY [facility] Stop: 11/10/24 08:59 Last Admin: 10/12/24 09:19 Dose: 40 mg Documented By: Admin: 10/11/24 09:26 Dose: 40 mg Documented By: DOYLE Phytonadione (Phytonadione Inj 10 Mg/Ml Amp) 10 mg SC X1 ONE Stop: 10/11/24 09:31 Last Admin: 10/11/24 09:28 Dose: 10 mg Documented By: DOYLE
[2024-10-10 18:25] LABS: B-Type Natriuretic Peptide 965 pg/mL (0-100)
[2024-10-10 18:36] LABS: Basophils # (Auto) 0.0 Thou/mm3 (0.0-0.2); Basophils % (Auto) 1 % (0-2.5); Eosinophils # (Auto) 0.1 Thou/mm3 (0.0-0.5); Eosinophils % (Auto) 2 % (0-10); Hematocrit 28.2 % (36.0-46.0); Hemoglobin 9.4 g/dL (12.0-16.0); Immature Granulocytes Auto 0.02 Thou/mm3 (0.00-0.00); Lymphocytes # (Auto) 1.4 Thou/mm3 (1.0-4.8); Lymphocytes % (Auto) 27 % (10-50); Mean Corpuscular HGB Conc 33.3 g/dl (31.0-37.0); Mean Corpuscular Hemoglobin 36.4 pg (25.0-35.0); Mean Corpuscular Volume 109 fL (80-100); Monocytes # (Auto) 0.4 Thou/mm3 (0.0-0.8); Monocytes % (Auto) 7 % (0-12); Neutrophils # (Auto) 3.4 Thou/mm3 (1.8-7.7); Neutrophils % (Auto) 63 % (37-80); Nucleated Red Blood Cell # 0.00 Thou/mm3 (0.00-0.00); Nucleated Red Blood Cell % 0 /100 WBC (0); RDW Standard Deviation 67.4 fL (36.4-46.3); Red Blood Count 2.58 Miln/mm3 (4.00-5.20); White Blood Count 5.3 Thou/mm3 (3.6-11.0)
[2024-10-10 18:37] LABS: Platelet Count 44 Thou/mm3 (140-440); Slide Review Platelets confirmed
[2024-10-10] MEDS: SODIUM CHLORIDE 0.9% 500 ML 500 ML 999 ML IV (18:39)
[2024-10-10 18:43] LABS: INR 2.1 (0.9-1.3); Partial Thromboplastin Time 38.0 Seconds (22.0-36.0); Prothrombin Time 21.4 Seconds (9.0-12.2)
[2024-10-10 19:23] LABS: Alanine Aminotransferase 15 U/L (10-49); Albumin, Serum 2.4 gm/dL (3.5-5.0); Albumin/Globulin Ratio 0.6 (1.2-2.2); Alkaline Phosphatase 87 U/L (46-116); Anion Gap 14 (7-16); Aspartate Amino Transferase 48 U/L (0-34); BUN/Creatinine Ratio 18 Ratio (12-20); Bilirubin,Total 3.9 mg/dL (0.3-1.2); Blood Urea Nitrogen 33 mg/dL (9-23); Calcium 9.6 mg/dL (8.3-10.6); Calcium (Corrected) 10.9 mg/dL (8.5-10.1); Carbon Dioxide 20.1 mMol/L (20.0-31.0); Chloride 104 mMol/L (98-107); Creatinine (Component) 1.8 mg/dL (0.6-1.3); Estimated Creatinine Clearance 29.6 mL/min (>60); Globulin 3.8 gm/dL (2.3-3.5); Glucose 81 mg/dL (74-106); LDH (Lactate Dehydrogenase) 227 U/L (120-246); Magnesium 2.0 mg/dL (1.6-2.6); Osmolality,Calculated 281 (275-295); Potassium 5.5 mMol/L (3.4-5.1); Sodium 138 mMol/L (136-145); Total Protein 6.2 gm/dL (5.7-8.2); Troponin I 0.031 ng/mL (0.0-0.045); eGFR 33 See Note
[2024-10-10 19:30] LABS: Collection Type, Urine Clean Catch
--- NOTE | 2024-10-10 19:35 | PC.NURSE ---
PROVIDER MARIJA INFORMED OF PATIENTS PRESSURE. PER MOTHER AT BEDSIDE HER PRESSURE RUNS LOW .
[2024-10-10] MEDS: SODIUM CHLORIDE 0.9% 1000 ML 1,000 ML 999 ML IV (19:43)
[2024-10-10 19:53] LABS: Bilirubin,Urine Negative (Negative); Blood,Urine 3+ (Negative); Clarity,Urine Turbid (Clear/Hazy); Color,Urine Yellow (Lt Yel-Yel); Glucose, Urine Negative (Negative); Hyaline Casts,Urine < 1 /hpf (0-1); Ketones,Urine Trace (Negative); Leukocyte Esterase,Urine Positive (Negative); Nitrite,Urine Negative (Negative); PH,Urine 5.5 (5.0-7.0); Protein,Urine Trace (Neg - Trace); RBC,Urine 388 /hpf (0-3); Specific Gravity,Urine 1.028 (1.001-1.035); Squamous Epithelial Cell,Urine 4 /hpf (0-5); Urobilinogen,Urine Negative mg/dL (0.0-1.0); WBC,Urine 43 /hpf (0-5)
[2024-10-10 20:01] LABS: Amphetamine/Methamp Scrn,U Negative (Negative); Barbiturate Screen,Urine Negative (Negative); Benzodiazepines Screen,Urine Negative (Negative); Benzoylecgonine Screen, Ur Negative (Negative); Fentanyl Screen,Urine Positive (Negative); Opiate Screen,Urine Positive (Negative); THC Screen,Urine Negative (Negative)
[2024-10-10 20:03] LABS: Culture Indicated,Urine Yes
[2024-10-10 20:35] LABS: Ammonia 11 uMol/L (11-32)
--- NOTE | 2024-10-10 21:26 | XR_ITS ---
Examination: Abdomen sonogram, Limited Date and time of exam: October 10, 2024 9:59 PM INDICATIONS: Abdominal distention today Technique: Real-time sifuentes scale transabdominal sonographic images of the upper abdomen obtained. Findings: No ascitic fluid IMPRESSION: No ascitic fluid
--- NOTE | 2024-10-10 21:26 | XR_ITS ---
Examination: Retroperitoneal ultrasound, complete Technique: Multiple high resolution grayscale images of the retroperitoneum obtained, including kidneys and bladder. Exam date and time:October 10, 2024 2138 hours INDICATIONS: Decreased urine flow with acute renal insufficiency on laboratory examination today FINDINGS: Right kidney 12.1 cm renal cortex 2.0 cm 12 mm midpole calculus 4.3 cm midpole cyst Left kidney 11.8 cm cortex 1.9 cm Bilateral moderate renal scar formation Contracted urinary bladder IMPRESSION: Moderate bilateral renal parenchymal scar formation 12 mm midpole midpole right renal calculus No hydronephrosis
[2024-10-10] MEDS: DEXTROSE 50%-WATER INJ 50 ML SYRINGE 25 ML IV (21:36)
[2024-10-10] MEDS: MIDODRINE 5 MG TABLET 10 MG PO (21:50)
[2024-10-10] MEDS: SODIUM CHLORIDE 0.9% 1000 ML 1,000 ML 100 ML IV (21:52)
[2024-10-10] MEDS: ALBUMIN HUMAN 25% IVPB 25 GM/100 ML BTL IV (21:53)
[2024-10-10] MEDS: LACTULOSE SYRUP 20 GM/30 ML UDC PO (22:21)
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
[2024-10-11] VITALS (26 sets, daily range): BP systolic 65–111; BP diastolic 42–72; PULSE 53–100; RESP 12–96; TEMP 36.1–37.4; O2SAT 92–99; BMI 36.3
[2024-10-11] MEDS: ALBUMIN HUMAN 25% IVPB 25 GM/100 ML BTL IV ×3 (00:05→21:31)
--- NOTE | 2024-10-11 03:08 | PC.NURSE ---
FAMILY CONTACT- MOTHER LOUIE [phone]
[2024-10-11 05:27] LABS: Basophils # (Auto) 0.0 Thou/mm3 (0.0-0.2); Basophils % (Auto) 0 % (0-2.5); Eosinophils # (Auto) 0.1 Thou/mm3 (0.0-0.5); Eosinophils % (Auto) 2 % (0-10); Hematocrit 24.8 % (36.0-46.0); Immature Granulocytes Auto 0.00 Thou/mm3 (0.00-0.00); Lymphocytes # (Auto) 1.0 Thou/mm3 (1.0-4.8); Lymphocytes % (Auto) 39 % (10-50); Mean Corpuscular HGB Conc 34.7 g/dl (31.0-37.0); Mean Corpuscular Hemoglobin 38.2 pg (25.0-35.0); Mean Corpuscular Volume 110 fL (80-100); Monocytes # (Auto) 0.1 Thou/mm3 (0.0-0.8); Monocytes % (Auto) 6 % (0-12); Neutrophils # (Auto) 1.3 Thou/mm3 (1.8-7.7); Neutrophils % (Auto) 52 % (37-80); Nucleated Red Blood Cell # 0.00 Thou/mm3 (0.00-0.00); Nucleated Red Blood Cell % 0 /100 WBC (0); RDW Standard Deviation 67.0 fL (36.4-46.3); Red Blood Count 2.25 Miln/mm3 (4.00-5.20); White Blood Count 2.5 Thou/mm3 (3.6-11.0)
[2024-10-11 05:40] LABS: INR 2.2 (0.9-1.3); Partial Thromboplastin Time 40.8 Seconds (22.0-36.0); Prothrombin Time 22.4 Seconds (9.0-12.2)
[2024-10-11 05:44] LABS: Hemoglobin 8.6 g/dL (12.0-16.0)
[2024-10-11 05:45] LABS: Platelet Count 29 Thou/mm3 (140-440)
[2024-10-11 05:46] LABS: Slide Review Platelets confirmed
[2024-10-11] MEDS: MIDODRINE 5 MG TABLET 10 MG PO ×3 (05:52→21:30)
[2024-10-11 06:26] LABS: Alanine Aminotransferase 11 U/L (10-49); Albumin, Serum 3.1 gm/dL (3.5-5.0); Albumin/Globulin Ratio 1.1 (1.2-2.2); Alkaline Phosphatase 64 U/L (46-116); Anion Gap 14 (7-16); Aspartate Amino Transferase 40 U/L (0-34); BUN/Creatinine Ratio 19 Ratio (12-20); Bilirubin,Total 3.8 mg/dL (0.3-1.2); Blood Urea Nitrogen 32 mg/dL (9-23); Calcium 9.9 mg/dL (8.3-10.6); Calcium (Corrected) 10.6 mg/dL (8.5-10.1); Carbon Dioxide 19.9 mMol/L (20.0-31.0); Chloride 107 mMol/L (98-107); Creatinine (Component) 1.7 mg/dL (0.6-1.3); Estimated Creatinine Clearance 31.0 mL/min (>60); Globulin 2.7 gm/dL (2.3-3.5); Glucose 75 mg/dL (74-106); Magnesium 2.1 mg/dL (1.6-2.6); Osmolality,Calculated 287 (275-295); Phosphorous 4.5 mg/dL (2.4-5.1); Potassium 4.9 mMol/L (3.4-5.1); Sodium 141 mMol/L (136-145); Total Protein 5.8 gm/dL (5.7-8.2); eGFR 36 See Note
[2024-10-11] MEDS: ALBUMIN HUMAN 25% IVPB 12.5 GM/50 ML BTL IV (06:28)
[2024-10-11 06:37] LABS: B-Type Natriuretic Peptide 1239 pg/mL (0-100)
[2024-10-11 07:03] LABS: Lactate (Lactic Acid) 5.4 mMol/L (0.4-2.0)
--- NOTE | 2024-10-11 07:58 | XR_ITS ---
Examination: CT abdomen and pelvis without contrast. Coronal 3-D reconstructions. Sagittal 2-D reconstructions. Date and time of exam:October 11, 2024, 1813 hours INDICATIONS: Lactic acidosis, ascites, abdominal pain today, history peroneal labial abscess on CT study September 24, 2024 post surgery CTDI: vol (mGy): 10.6 DLP: (mGycm): 608 Technique: Axial images of the abdomen have been obtained, 3 mm slice thickness Intravenous contrast material has not been administered. Low dose protocols were performed. One or more of the following dose reduction techniques were used; automated exposure control, adjustment of the mA and/or KV according to patient size, use of iterative reconstruction technique. Findings: Pneumonia right base with moderate right pleural fluid Mild pneumonia left base Cirrhosis, liver nodular in contour with splenomegaly Esophageal varices Significant ascites Gallbladder wall is thickened which may relate to the ascites Pancreas is not enlarged Bilateral renal calculi, the largest right kidney 8 mm Small fluid containing inguinal hernia Anasarca No bowel obstruction Anteverted uterus No adnexal mass Urinary bladder contracted around a Liz catheter The perineal labial abscess is no longer identified Severe osteopenia IMPRESSION: Bibasilar pneumonia Moderate right pleural fluid Cirrhosis Esophageal varices Significant ascites Gallbladder wall is thickened which may relate to the ascites, suggest HIDA scan follow-up as clinically warranted Bilateral renal calculi The patient's labial abscess is no longer identified
[2024-10-11 09:18] LABS: Reflex Lactate? Y
[2024-10-11] MEDS: PHYTONADIONE INJ 10 MG/ML AMP SC (09:28)
[2024-10-11] MEDS: PIPER/TAZO 3.375 GM PREMIX 3.375 GM/50 ML BAG IV ×3 (09:50→22:26)
[2024-10-11 10:19] LABS: Lactic Acid, 3 HR 4.0 mMol/L (0.4-2.0)
[2024-10-11 10:56] LABS: HCG Qualitative,Urine Negative
[2024-10-11] MEDS: LACTULOSE SYRUP 20 GM/30 ML UDC PO (13:39)
--- NOTE | 2024-10-11 13:45 | PC.PT ---
PT eval received. Patient's PLOF was bed bound and dependent in transfers. Skilled PT not indicated at this time secondary to patient is at her Prior level of function. Will cancel PT evaluation.
--- NOTE | 2024-10-11 14:11 | ESPR_ITS ---
<Statement entered by Fernie Calderon MD - 10/11/24 17:46> I have reviewed the note and agree with the resident's assessment & plan with exceptions as below. I have personally reviewed labs, imaging, home meds/prior records, examined the patient, formulated and discussed management plan with the IM team. Patient examined at bedside today. No acute overnight events. She was having blood clots from her vaginal area, however notes that she has not been on her period for about a month. We performed speculum examination which showed 1 blood clot, however no over active bleeding. Patient still has her menstruation cycle. Will transfuse patient in addition to platelets and FFP. Will follow-up with post H&H transfusion. Will add home medicines for decompensated liver cirrhosis including lactulose, and rifaximin. Patient scheduled for paracentesis, giving albumin at this time. Repeat hematology and chemistry in AM. Fernie Calderon, PGY-2 Internal Medicine Documentation for date of: 10/11/24 Subjective Subjective Interval history: 53 y/o female with a history of decompensated alcoholic cirrhosis, multiple admissions for hepatic encephalopathy, prior variceal bleeding, chronic pain, T2DM, and recent hospitalization for right labial abcess, on admission day 1 for worsening body pain, generalized weakness, hematuria with clots, and poor oral intake. Patient was seen at bedside today morning, patient had very slow and slurred speech. Patient was visibally is pain even when resting, hesitant to move any body parts. Exam Vital Signs Temp Pulse Resp BP Pulse Ox O2 Del Method O2 Flow Rate 99.2 F 64 12 97/49 L 98 Room Air 96 10/11/24 13:06 10/11/24 14:01 10/11/24 13:06 10/11/24 14:01 10/11/24 12:51 10/11/24 12:00 10/11/24 13:06 Narrative Exam General: Patient is alert and oriented, noted that it [birth year] today. Patient is in acute distress due to generalized pain. Cardio: RRR, no mumurs, gallops or rubs appreciated. Pulm: Normal lung sounds, patient unable to take deep breaths. GI: Abdomen visually distended, positive fluid wave, diffusely tender to mild palpation (most severe epigastric). MSK: 2/5 strength in upper and lower extremities. Extremities are painful to movement. Lower extremities 2+ pitting edema bilaterally upto mid tibia. Lower extremities painful to pitting edemaa indentation. Objective Labs 10/12/24 04:51 10/12/24 04:51 Labs: Laboratory Results - last 24 hr 10/10/24 10/10/24 10/10/24 17:57 19:14 20:13 WBC 5.3 RBC 2.58 L Hgb 9.4 L Hct 28.2 L MCV 109 H MCH 36.4 H MCHC 33.3 RDW Std Deviation 67.4 H Plt Count 44 L D Neut % (Auto) 63 Lymph % (Auto) 27 [place] % (Auto) 7 Eos % (Auto) 2 Baso % (Auto) 1 Neut # (Auto) 3.4 Lymph # (Auto) 1.4 [place] # (Auto) 0.4 Eos # (Auto) 0.1 Baso # (Auto) 0.0 Immature Gran # (Auto) 0.02 H Absolute Nucleated RBC 0.00 Immature Gran % 0 Nucleated RBC % 0 PT 21.4 H D INR 2.1 H APTT 38.0 H Sodium 138 Potassium 5.5 H Chloride 104 Carbon Dioxide 20.1 Anion Gap 14 BUN 33 H Creatinine 1.8 H Estim Creat Clear Calc 29.6 L eGFR 33 L BUN/Creatinine Ratio 18 Glucose 81 Calculated Osmolality 281 Lactic Acid Calcium 9.6 Corrected Calcium 10.9 H Phosphorus Magnesium 2.0 Total Bilirubin 3.9 H AST 48 H ALT 15 Alkaline Phosphatase 87 Ammonia 11 Lactate Dehydrogenase 227 Troponin I 0.031 B-Natriuretic Peptide 965 H* Total Protein 6.2 Albumin 2.4 L Globulin 3.8 H Albumin/Globulin Ratio 0.6 L Ur Collection Type Clean Catch Urine Color Yellow Urine Clarity Turbid A Urine pH 5.5 Ur Specific [place] 1.028 Urine Protein Trace Urine Glucose (UA) Negative Urine Ketones Trace Urine Blood 3+ A Urine Nitrite Negative Urine Bilirubin Negative Urine Urobilinogen (Auto) Negative Ur Leukocyte Esterase Positive Urine RBC 388 H Urine WBC 43 H Ur Squamous Epith Cells 4 Urine Bacteria None Hyaline Casts < 1 Ur Culture Indicated? Yes Urine HCG, Qual Urine Opiates Screen Positive A Urine Fentanyl Screen Positive A Ur Barbiturates Screen Negative U Amphetamin/Meth Scrn Negative U Benzodiazepines Scrn Negative U Cocaine Metab Screen Negative U Marijuana (THC) Screen Negative Misc Test Result Platelets confirmed Blood Type Antibody Screen Crossmatch Blood Bank [facility] Blood Bank Comment 10/11/24 10/11/24 10/11/24 04:22 06:11 09:21 WBC 2.5 L D RBC 2.25 L Hgb 8.6 L Hct 24.8 L MCV 110 H MCH 38.2 H MCHC 34.7 RDW Std Deviation 67.0 H Plt Count 29 L* D Neut % (Auto) 52 Lymph % (Auto) 39 [place] % (Auto) 6 Eos % (Auto) 2 Baso % (Auto) 0 Neut # (Auto) 1.3 L Lymph # (Auto) 1.0 [place] # (Auto) 0.1 Eos # (Auto) 0.1 Baso # (Auto) 0.0 Immature Gran # (Auto) 0.00 Absolute Nucleated RBC 0.00 Immature Gran % 0 Nucleated RBC % 0 PT 22.4 H INR 2.2 H APTT 40.8 H Sodium 141 Potassium 4.9 D Chloride 107 Carbon Dioxide 19.9 L Anion Gap 14 BUN 32 H Creatinine 1.7 H Estim Creat Clear Calc 31.0 L eGFR 36 L BUN/Creatinine Ratio 19 Glucose 75 Calculated Osmolality 287 Lactic Acid 5.4 H* Calcium 9.9 Corrected Calcium 10.6 H Phosphorus 4.5 Magnesium 2.1 Total Bilirubin 3.8 H AST 40 H ALT 11 Alkaline Phosphatase 64 D Ammonia Lactate Dehydrogenase Troponin I B-Natriuretic Peptide 1239 H* Total Protein 5.8 Albumin 3.1 L D Globulin 2.7 Albumin/Globulin Ratio 1.1 L Ur Collection Type Urine Color Urine Clarity Urine pH Ur Specific [place] Urine Protein Urine Glucose (UA) Urine Ketones Urine Blood Urine Nitrite Urine Bilirubin Urine Urobilinogen (Auto) Ur Leukocyte Esterase Urine RBC Urine WBC Ur Squamous Epith Cells Urine Bacteria Hyaline Casts Ur Culture Indicated? Urine HCG, Qual Negative Urine Opiates Screen Urine Fentanyl Screen Ur Barbiturates Screen U Amphetamin/Meth Scrn U Benzodiazepines Scrn U Cocaine Metab Screen U Marijuana (THC) Screen Misc Test Result Platelets confirmed Blood Type Antibody Screen Crossmatch Blood Bank [facility] Blood Bank Comment 10/11/24 09:33 WBC RBC Hgb Hct MCV MCH MCHC RDW Std Deviation Plt Count Neut % (Auto) Lymph % (Auto) [place] % (Auto) Eos % (Auto) Baso % (Auto) Neut # (Auto) Lymph # (Auto) [place] # (Auto) Eos # (Auto) Baso # (Auto) Immature Gran # (Auto) Absolute Nucleated RBC Immature Gran % Nucleated RBC % PT INR APTT Sodium Potassium Chloride Carbon Dioxide Anion Gap BUN Creatinine Estim Creat Clear Calc eGFR BUN/Creatinine Ratio Glucose Calculated Osmolality Lactic Acid 4.0 H Calcium Corrected Calcium Phosphorus Magnesium Total Bilirubin AST ALT Alkaline Phosphatase Ammonia Lactate Dehydrogenase Troponin I B-Natriuretic Peptide Total Protein Albumin Globulin Albumin/Globulin Ratio Ur Collection Type Urine Color Urine Clarity Urine pH Ur Specific [place] Urine Protein Urine Glucose (UA) Urine Ketones Urine Blood Urine Nitrite Urine Bilirubin Urine Urobilinogen (Auto) Ur Leukocyte Esterase Urine RBC Urine WBC Ur Squamous Epith Cells Urine Bacteria Hyaline Casts Ur Culture Indicated? Urine HCG, Qual Urine Opiates Screen Urine Fentanyl Screen Ur Barbiturates Screen U Amphetamin/Meth Scrn U Benzodiazepines Scrn U Cocaine Metab Screen U Marijuana (THC) Screen Misc Test Result Blood Type O Positive Antibody Screen NEGATIVE Crossmatch See Detail Blood Bank Wristband ID Yes Blood Bank Comment FFP Ready Quality Measures Quality Measures VTE prophylaxis Assessment & Plan Assessment Current Active Medications: Generic Name Dose Route Start Last Admin Trade Name Freq PRN Reason Stop Dose Admin Acetaminophen 650 mg 10/10/24 21:05 Acetaminophen 325 Mg Tablet PO 11/09/24 21:04 Q6H PRN Fever >100.4 or pain 1-3 Dextrose 25 ml 10/10/24 21:16 10/10/24 21:36 Dextrose 50%-Water Inj 50 Ml Syringe IV 11/09/24 21:15 25 ml Q15MIN PRN Administration BG 50-70 responsive npo pt Dextrose 50 ml 10/10/24 21:16 Dextrose 50%-Water Inj 50 Ml Syringe IV 11/09/24 21:15 Q15MIN PRN BG <50 OR BG <70 & pt unresponsive Glucagon 1 mg 10/10/24 21:16 Glucagon Inj 1 Mg Vial IM Q15MIN PRN BG <70, and no IV access Hydromorphone HCl 0.5 mg 10/11/24 04:59 Hydromorphone Inj 2 Mg/Ml Vial IVP 10/15/24 21:04 Q4HR PRN PAIN SCALE 7-10 (Severe Albumin Human 25 gm in 100 mls @ 100 mls/hr 10/10/24 21:09 10/10/24 23:27 Albuminar-25 Ivpb IV 10/13/24 21:08 Infused QDAY CELINA Infusion Albumin Human 25 gm in 100 mls @ 100 mls/hr 10/11/24 14:00 10/11/24 13:39 Albuminar-25 Ivpb IV 10/12/24 13:59 100 mls/hr TID CELINA Administration Piperacillin/Tazobactam/Dextrose 3.375 gm in 50 mls @ 12.5 mls/hr 10/11/24 14:00 10/11/24 13:40 Zosyn IV 10/18/24 13:59 12.5 mls/hr Q8HR CELINA Administration Insulin Human Lispro 0 unit 10/11/24 07:30 10/11/24 12:39 Insulin Lispro (Admelog) 1 Unit/0.01 Ml Unit SC 11/10/24 07:29 Not Given AC [facility] Protocol Lactulose 20 gm 10/10/24 22:00 10/11/24 13:39 Lactulose Syrup 20 Gm/30 Ml Udc PO 11/09/24 21:59 20 gm TID CELINA Administration Protocol Midodrine 10 mg 10/10/24 22:00 10/11/24 14:01 Midodrine 5 Mg Tablet PO 11/09/24 21:59 10 mg TID CELINA Administration Ondansetron HCl 4 mg 10/10/24 21:05 Ondansetron Inj 2 Mg/Ml Inj 2 Ml IVP 11/09/24 21:04 Q6H PRN NAUSEA OR VOMITING Protocol Pantoprazole Sodium 40 mg 10/11/24 09:00 10/11/24 09:26 Pantoprazole Inj 40 Mg Vial IVP 11/10/24 08:59 40 mg QDAY CELINA Administration Rifaximin 550 mg 10/11/24 10:15 10/11/24 12:30 Rifaximin 550 Mg Tablet PO 10/18/24 10:14 550 mg BID CELINA Administration Tramadol HCl 50 mg 10/10/24 21:05 10/11/24 13:25 Tramadol Hcl 50 Mg Tablet PO 10/15/24 21:04 50 mg Q6HR PRN Administration PAIN SCALE 4-6 (Moderate Plan 53 y/o F with decompensated alcoholic cirrhosis, admitted with LILY, hematuria, and diffuse pain and weakness in the setting of poor oral intake and recent I&D for labial abscess. Exam notable for ascites and cachexia. Labs show LILY, hyperkalemia, coagulopathy, pancytopenia, and hematuria. # Generalized Weakness and body Pain - Patient has advanced liver disease, symptomatic anemia, poor appetite, weight loss - Nutrition consult - Oral Protein supplements - Liquid diet, advance as tolerated # Bleeding - Gross hematuria with clots Like urological vs GI vs Gynecological, - Platelets dropped t0 29 (44 yesterday) # Thrombocytopenia/Coagulopathy - PT: 22.4 (21.4 yesterday), INR: 2.2 (2.1 yesterday) - Monitor for bleeding - Monitor CBC, tranfuse if hemoglobin drops below 7. - Transfused with 1:1:1, Whole blood, FFP, and Platelet - Urine culture #Acute on chronic liver cirrhosis - Continue lactulose and home med rifamixin once med recs are back - Hold diuretics for now - Consider Therapuetic paracentesis if ascites is worsening # LILY, unspecified Baseline Cr ~1.0, now 1.7 with BUN 32, K 4.9 (5.5 yesterday). In setting of cirrhosis, poor PO intake. DDX: prerenal azotemia vs hepatorenal syndrome vs ATN (ischemic/septic) vs less likely obstructive. - Trend CMP, strict I/Os, daily weights - Albumin 25 g IV qday - Hold nephrotoxins (NSAIDs, LOLITA/ARB, metformin, diuretics for now) - Monitor on tele # Chronic pain - Ran out of Percocet, presenting with pain. - Continue PRN pain management # T2DM - Last A1c 6.0, metformin held due to LILY. - SSI while inpatient Health Maintenance: Code Status: Full DVT Prophylaxis: SCDs GI Prophylaxis: Protonix Diet: Clear Liquid Liz: None Lines: PIV Supplemental O2: None Disposition: Med Tele Patient seen and care discussed with my attending physician, Dr. Morrison and my senior resident, Dr. Yumiko Wilkins, OMS-IV Attending Provider Attestation/Addendum I reviewed labs, imaging, EKG, home medications and prior available records. Face to face evaluation was performed by me. I have personally examined the patient and discussed assessment and plan with the IM team. I reviewed the resident note and agree with the plan with exceptions as below. Alcoholic cirrhosis Generalized weakness Symptomatic anemia Thrombocytopenia LILY Lactic acidosis Chronic low back pain Ordered 1 PRBC, 1 platelet, and 1 FFP Monitor CBC Continue alcohol abstinence Ordered renal ultrasound that showed moderate scarring Continue to monitor kidney function Continue alcohol abstinence Continue pain management as needed Continue lactulose Outpatient follow-up with hepatology Ordered PT evaluation
[2024-10-11 15:03] LABS: Path Review Blood Smear Sent to Pathologist
[2024-10-11 15:53] LABS: Hematocrit 27.8 % (36.0-46.0); Hemoglobin 9.4 g/dL (12.0-16.0)
[2024-10-11 22:10] LABS: OBS Card Lot # 23001; OBS Developer Lot # 23002; OBS Performed By adamk; OBS QC OK? Yes; Occult Blood, Stool Negative (Negative)
[2024-10-12] VITALS (12 sets, daily range): BP systolic 89–106; BP diastolic 51–66; PULSE 55–96; RESP 12–95; TEMP 36.1–36.9; O2SAT 90–96
[2024-10-12] MEDS: LACTULOSE SYRUP 20 GM/30 ML UDC PO ×2 (05:11→13:16)
[2024-10-12] MEDS: PIPER/TAZO 3.375 GM PREMIX 3.375 GM/50 ML BAG IV ×3 (05:11→21:12)
[2024-10-12] MEDS: ALBUMIN HUMAN 25% IVPB 25 GM/100 ML BTL IV ×3 (05:11→13:58)
[2024-10-12] MEDS: MIDODRINE 5 MG TABLET 10 MG PO ×2 (05:11→13:17)
[2024-10-12 06:00] LABS: Basophils # (Auto) 0.0 Thou/mm3 (0.0-0.2); Basophils % (Auto) 1 % (0-2.5); Eosinophils # (Auto) 0.1 Thou/mm3 (0.0-0.5); Eosinophils % (Auto) 3 % (0-10); Hematocrit 24.8 % (36.0-46.0); Immature Granulocytes Auto 0.00 Thou/mm3 (0.00-0.00); Lymphocytes # (Auto) 0.9 Thou/mm3 (1.0-4.8); Lymphocytes % (Auto) 42 % (10-50); Mean Corpuscular HGB Conc 33.1 g/dl (31.0-37.0); Mean Corpuscular Hemoglobin 35.8 pg (25.0-35.0); Mean Corpuscular Volume 108 fL (80-100); Monocytes # (Auto) 0.2 Thou/mm3 (0.0-0.8); Monocytes % (Auto) 10 % (0-12); Neutrophils # (Auto) 0.9 Thou/mm3 (1.8-7.7); Neutrophils % (Auto) 45 % (37-80); Nucleated Red Blood Cell # 0.00 Thou/mm3 (0.00-0.00); Nucleated Red Blood Cell % 0 /100 WBC (0); RDW Standard Deviation 73.8 fL (36.4-46.3); Red Blood Count 2.29 Miln/mm3 (4.00-5.20); White Blood Count 2.0 Thou/mm3 (3.6-11.0)
[2024-10-12 06:04] LABS: Hemoglobin 8.2 g/dL (12.0-16.0)
[2024-10-12 06:05] LABS: Platelet Count 40 Thou/mm3 (140-440)
[2024-10-12 06:36] LABS: Alanine Aminotransferase 10 U/L (10-49); Albumin, Serum 3.2 gm/dL (3.5-5.0); Albumin/Globulin Ratio 1.3 (1.2-2.2); Alkaline Phosphatase 53 U/L (46-116); Anion Gap 8 (7-16); Aspartate Amino Transferase 31 U/L (0-34); BUN/Creatinine Ratio 18 Ratio (12-20); Bilirubin,Total 4.6 mg/dL (0.3-1.2); Blood Urea Nitrogen 24 mg/dL (9-23); Calcium 9.7 mg/dL (8.3-10.6); Calcium (Corrected) 10.3 mg/dL (8.5-10.1); Carbon Dioxide 25.1 mMol/L (20.0-31.0); Chloride 110 mMol/L (98-107); Creatinine (Component) 1.3 mg/dL (0.6-1.3); Estimated Creatinine Clearance 46.3 mL/min (>60); Globulin 2.4 gm/dL (2.3-3.5); Glucose 93 mg/dL (74-106); Magnesium 2.0 mg/dL (1.6-2.6); Osmolality,Calculated 288 (275-295); Phosphorous 3.5 mg/dL (2.4-5.1); Potassium 4.5 mMol/L (3.4-5.1); Sodium 143 mMol/L (136-145); Total Protein 5.6 gm/dL (5.7-8.2); eGFR 49 See Note
[2024-10-12 10:07] LABS: Slide Review Platelets confirmed
[2024-10-12 10:26] LABS: Lactate (Lactic Acid) 2.9 mMol/L (0.4-2.0)
--- NOTE | 2024-10-12 11:04 | XR_ITS ---
Examination: AP chest single view Technique one AP portable semiupright chest single view Date and time: October 12, 2024, 1134 hours, comparison September 24, 2024 INDICATIONS: Shortness of breath beginning 2 days ago. FINDINGS: Mild heart failure Mild enlargement cardiac contour with prominent vascular congestion. Early right perihilar and left basilar pneumonia IMPRESSION: Early right perihilar and left basilar pneumonia. Mild associated heart failure
--- NOTE | 2024-10-12 11:10 | PC.SS ---
Elzbieta Knight is a 54-year-old female admitted to [place] for AEI/Hematuria. SS conducted bedside contact with the patient to complete initial assessment and to discuss discharge planning. Role and reason explained. Patient confirmed demographic information. Patient identifies mother Renetta Knight [phone] as her surrogate decision maker. Pt states she is a max assist, pt reports being able to bare weight for a short period to transfer from bed to chair. Pts mother lives with her and provides care for the pt. Pts PCP Dr. Calderon. Pharmacy of choice is [facility]. Discharge options discussed and the pt wishes to return home if HH is recommended they are open to HH.? Family will provide transportation upon DC. No further intervention required at this time, social media marketer would be available to address any further concerns. DC Plan: Home Contact: MomBridgett Address: Confirmed on face sheet PCP: [facility]
[2024-10-12] MEDS: INSULIN LISPRO (AdmeLOG) 1 UNIT/0.01 ML UNIT SC ×2 (12:00→16:45)
[2024-10-12 13:22] LABS: Reflex Lactate? Y
--- NOTE | 2024-10-12 13:44 | ESPR_ITS ---
<Statement entered by Fernie Calderon MD - 10/12/24 14:54> I have reviewed the note and agree with the resident's assessment & plan with exceptions as below. I have personally reviewed labs, imaging, home meds/prior records, examined the patient, formulated and discussed management plan with the IM team. Patient examined at bedside today. No acute overnight events. Patient's blood pressure seems to be a bit low, MAP hovering around 60s. Will give additional albumin at this time. Will initiate diuresis with Lasix and spironolactone. Will continue with lactulose and rifaximin for hepatic encephalopathy with goal bowel movements of 2-3 a day. Will hold on paracentesis as there is not significant fluid to drain at this time. Posttransfusion of platelets and hemoglobin has brought patient's hemoglobin and platelet numbers up to patient's baseline. Will continue with scheduled midodrine at this time. Anticipate discharge in the next 24 to 48 hours. Repeat hematology and chemistry in AM. Fernie Calderon, PGY-2 Internal Medicine Documentation for date of: 10/12/24 Subjective Subjective Interval history: 53 y/o female with a history of decompensated alcoholic cirrhosis, multiple admissions for hepatic encephalopathy, prior variceal bleeding, chronic pain, T2DM, and recent hospitalization for right labial abcess, on admission day 2 for worsening body pain, generalized weakness, symptomatic anemia, and poor oral intake. Overnight BP was soft 90s/60s, but no significant events. Tele unremarkable. Patient seen at bedside today morning. Patient's mom was present and notes that patient is not at her baseline. Patient noted that her appetite is improved. Patient noted increased dificulty breathing, especially when she is moving in bed. Exam Vital Signs Temp Pulse Resp BP Pulse Ox O2 Del Method O2 Flow Rate 97.5 F 67 18 89/56 L 96 Room Air 96 10/12/24 07:53 10/12/24 13:17 10/12/24 07:53 10/12/24 13:17 10/12/24 07:53 10/12/24 07:53 10/11/24 13:06 Narrative Exam General: Patient is fully alert and oriented. Mild distress due to current health condition. Cardio: RRR, no mumurs, gallops or rubs appreciated. Resp: No wheezing or crackles auscultated. Shallow breaths. Unable to take deep breaths. MSK: Diffuse muscle pain with any movement of upper or lower extremity. Strength 3/5 in upper and lower extremities bilaterally. Unable to sit up due to pain and weakness. GI: Diffuse abdominal tenderness, most prominent palak-umbilical. Significant visual abdominal distension. Positive fluid wave. Extremities: 2+ pitting edema in lower extremities bilaterally upto mid tibia. Dorsalis pedis pulses +2 bilaterally Neuro: AAOx3, Sensation intact in upper and lower extremities bilaterally. Strength diminished. Psych: Good judgement, thought and behavior. Cooperative Objective Labs 10/13/24 07:05 10/13/24 04:43 Labs: Laboratory Results - last 24 hr 10/11/24 10/11/24 10/11/24 04:22 09:33 15:30 WBC RBC Hgb 9.4 L Hct 27.8 L MCV MCH MCHC RDW Std Deviation Plt Count Neut % (Auto) Lymph % (Auto) [place] % (Auto) Eos % (Auto) Baso % (Auto) Neut # (Auto) Lymph # (Auto) [place] # (Auto) Eos # (Auto) Baso # (Auto) Immature Gran # (Auto) Absolute Nucleated RBC Immature Gran % Nucleated RBC % Smear Path Review Sent to Pathologist Sodium Potassium Chloride Carbon Dioxide Anion Gap BUN Creatinine Estim Creat Clear Calc eGFR BUN/Creatinine Ratio Glucose Calculated Osmolality Lactic Acid Calcium Corrected Calcium Phosphorus Magnesium Total Bilirubin AST ALT Alkaline Phosphatase Total Protein Albumin Globulin Albumin/Globulin Ratio Stool Occult Blood Misc Test Result Blood Type O Positive Antibody Screen NEGATIVE Crossmatch See Detail Blood Bank Wristband ID Yes Blood Bank Comment FFP Ready 10/11/24 10/12/24 10/12/24 21:40 04:51 09:55 WBC 2.0 L RBC 2.29 L Hgb 8.2 L Hct 24.8 L MCV 108 H MCH 35.8 H MCHC 33.1 RDW Std Deviation 73.8 H Plt Count 40 L D Neut % (Auto) 45 Lymph % (Auto) 42 [place] % (Auto) 10 Eos % (Auto) 3 Baso % (Auto) 1 Neut # (Auto) 0.9 L Lymph # (Auto) 0.9 L [place] # (Auto) 0.2 Eos # (Auto) 0.1 Baso # (Auto) 0.0 Immature Gran # (Auto) 0.00 Absolute Nucleated RBC 0.00 Immature Gran % 0 Nucleated RBC % 0 Smear Path Review Sodium 143 Potassium 4.5 Chloride 110 H Carbon Dioxide 25.1 Anion Gap 8 BUN 24 H Creatinine 1.3 Estim Creat Clear Calc 46.3 L eGFR 49 L BUN/Creatinine Ratio 18 Glucose 93 Calculated Osmolality 288 Lactic Acid 2.9 H Calcium 9.7 Corrected Calcium 10.3 H Phosphorus 3.5 Magnesium 2.0 Total Bilirubin 4.6 H D AST 31 ALT 10 Alkaline Phosphatase 53 Total Protein 5.6 L Albumin 3.2 L Globulin 2.4 Albumin/Globulin Ratio 1.3 Stool Occult Blood Negative Misc Test Result Platelets confirmed Blood Type Antibody Screen Crossmatch Blood Bank Wristband ID Blood Bank Comment Quality Measures Quality Measures VTE prophylaxis Assessment & Plan Assessment Current Active Medications: Generic Name Dose Route Start Last Admin Trade Name Freq PRN Reason Stop Dose Admin Acetaminophen 650 mg 10/10/24 21:05 Acetaminophen 325 Mg Tablet PO 11/09/24 21:04 Q6H PRN Fever >100.4 or pain 1-3 Dextrose 25 ml 10/10/24 21:16 10/10/24 21:36 Dextrose 50%-Water Inj 50 Ml Syringe IV 11/09/24 21:15 25 ml Q15MIN PRN Administration BG 50-70 responsive npo pt Dextrose 50 ml 10/10/24 21:16 Dextrose 50%-Water Inj 50 Ml Syringe IV 11/09/24 21:15 Q15MIN PRN BG <50 OR BG <70 & pt unresponsive Glucagon 1 mg 10/10/24 21:16 Glucagon Inj 1 Mg Vial IM Q15MIN PRN BG <70, and no IV access Hydromorphone HCl 0.5 mg 10/11/24 04:59 Hydromorphone Inj 2 Mg/Ml Vial IVP 10/15/24 21:04 Q4HR PRN PAIN SCALE 7-10 (Severe Piperacillin/Tazobactam/Dextrose 3.375 gm in 50 mls @ 12.5 mls/hr 10/11/24 14:00 10/12/24 13:18 Zosyn IV 10/18/24 13:59 12.5 mls/hr Q8HR CELINA Administration Albumin Human 25 gm in 100 mls @ 100 mls/hr 10/12/24 13:40 Albuminar-25 Ivpb IV 10/12/24 14:37 X1 ONE Insulin Human Lispro 0 unit 10/11/24 07:30 08/29/25 12:00 Insulin Lispro (Admelog) 1 Unit/0.01 Ml Unit SC 11/10/24 07:29 1 unit AC CELINA Administration Protocol Lactulose 20 gm 10/10/24 22:00 10/12/24 13:16 Lactulose Syrup 20 Gm/30 Ml Udc PO 11/09/24 21:59 20 gm TID CELINA Administration Protocol Midodrine 10 mg 10/10/24 22:00 10/12/24 13:17 Midodrine 5 Mg Tablet PO 11/09/24 21:59 10 mg TID CELINA Administration Ondansetron HCl 4 mg 10/10/24 21:05 Ondansetron Inj 2 Mg/Ml Inj 2 Ml IVP 11/09/24 21:04 Q6H PRN NAUSEA OR VOMITING Protocol Pantoprazole Sodium 40 mg 10/13/24 09:00 Pantoprazole 40 Mg Tablet PO 11/12/24 08:59 QDAY CELINA Protocol Rifaximin 550 mg 10/11/24 10:15 10/12/24 09:19 Rifaximin 550 Mg Tablet PO 10/18/24 10:14 550 mg BID CELINA Administration Spironolactone 25 mg 10/12/24 11:00 10/12/24 13:32 Spironolactone 25 Mg Tablet PO 11/11/24 10:59 Not Given DAILY CELINA Tramadol HCl 50 mg 10/10/24 21:05 10/12/24 09:19 Tramadol Hcl 50 Mg Tablet PO 10/15/24 21:04 50 mg Q6HR PRN Administration PAIN SCALE 4-6 (Moderate Plan 53 y/o F with decompensated alcoholic cirrhosis, admitted with LILY, hematuria, and diffuse pain and weakness in the setting of poor oral intake and recent I&D for labial abscess. Exam notable for ascites and cachexia. Labs show LILY, hyperkalemia, coagulopathy, pancytopenia, and hematuria. #Acute on chronic decompensated liver cirrhosis #Thrombocytopenia/Coagulopathy/Bleeding Plan - Continue lactulose and home med rifamixin - Diuretics- Aldactone 25mg x1, Lasix 20 mg IVP x1. Monitor BP, hold if MAP below 65. - Albumin to maintain BP - Therapuetic paracentesis ordered again (last order was cancelled) - Give albumin palak paracentesis - Monitor for bleeding - Monitor CBC, tranfuse if hemoglobin drops below 7. # Generalized Weakness and body Pain - Patient has advanced liver disease, symptomatic anemia, poor appetite, weight loss Plan: - Nutrition consult in place - Oral Protein supplements - Liquid diet, advance as tolerated #Dyspnea- could be due to worsening fluid overload. Plan - CXR - Start diuretics: Aldactone and Lasix - Monitor Oxygen saturation, supplement if needed. # LILY, improving Baseline Cr ~1.0, now 1.3 with BUN 24, K 4.5. In setting of cirrhosis, poor PO intake. DDX: prerenal azotemia vs hepatorenal syndrome vs ATN (ischemic/septic) vs less likely obstructive. Plan - Trend CMP, strict I/Os, daily weights - Albumin 25 g IV qday - Hold nephrotoxins (NSAIDs, LOLITA/ARB, metformin, diuretics for now) - Monitor on tele # Chronic pain - Ran out of Percocet, presenting with pain. - Continue PRN pain management # T2DM - Last A1c 6.0, metformin held due to LILY. - SSI while inpatient Health Maintenance: Code Status: Full DVT Prophylaxis: SCDs GI Prophylaxis: Protonix Diet: Clear liquid Liz: Intermittent Catheter Lines: PIV Supplemental O2: None Disposition: Med Tele Patient seen and care discussed with my attending physician, Dr. Morrison and my senior resident, Dr. Yumiko Wilkins, [facility]- Attending Provider Attestation/Addendum I reviewed labs, imaging, EKG, home medications and prior available records. Face to face evaluation was performed by me. I have personally examined the patient and discussed assessment and plan with the IM team. I reviewed the resident note and agree with the plan with exceptions as below. Acute hypotension Alcoholic cirrhosis with ascites Pleural effusion Generalized weakness Symptomatic anemia Thrombocytopenia LILY Lactic acidosis Chronic low back pain Gave IV albumin Lasix and spironolactone once BP improves No sufficient fluid for safe paracentesis H&H is stable Platelet level slightly improved Continue alcohol abstinence Creatinine improved Ordered renal ultrasound that showed moderate scarring Continue to monitor kidney function Continue alcohol abstinence Continue pain management as needed Continue lactulose Outpatient follow-up with hepatology Ordered PT evaluation Ordered home health
[2024-10-12 14:15] LABS: Lactic Acid, 3 HR 3.8 mMol/L (0.4-2.0)
--- NOTE | 2024-10-12 14:55 | PC.SS ---
Rounding: One more day of diuretics, DC plan home with HH over weekend
[2024-10-12] MEDS: MIDODRINE 5 MG TABLET 15 MG PO (21:11)
[2024-10-12] MEDS: ACETAMINOPHEN 325 MG TABLET 650 MG PO (21:12)
[2024-10-13] VITALS (12 sets, daily range): BP systolic 95–110; BP diastolic 55–64; PULSE 54–69; RESP 12–98; TEMP 36.1–37.2; O2SAT 91–95
[2024-10-13] MEDS: LACTULOSE SYRUP 20 GM/30 ML UDC PO (05:40)
[2024-10-13] MEDS: MIDODRINE 5 MG TABLET 15 MG PO ×3 (05:40→21:54)
[2024-10-13] MEDS: PIPER/TAZO 3.375 GM PREMIX 3.375 GM/50 ML BAG IV ×3 (05:40→21:54)
[2024-10-13 06:28] LABS: Alanine Aminotransferase 9 U/L (10-49); Albumin, Serum 3.6 gm/dL (3.5-5.0); Albumin/Globulin Ratio 1.6 (1.2-2.2); Alkaline Phosphatase 46 U/L (46-116); Anion Gap 11 (7-16); Aspartate Amino Transferase 30 U/L (0-34); BUN/Creatinine Ratio 13 Ratio (12-20); Bilirubin,Total 5.4 mg/dL (0.3-1.2); Blood Urea Nitrogen 16 mg/dL (9-23); Calcium 9.9 mg/dL (8.3-10.6); Calcium (Corrected) 10.2 mg/dL (8.5-10.1); Carbon Dioxide 22.6 mMol/L (20.0-31.0); Chloride 111 mMol/L (98-107); Creatinine (Component) 1.2 mg/dL (0.6-1.3); Estimated Creatinine Clearance 50.1 mL/min (>60); Globulin 2.3 gm/dL (2.3-3.5); Glucose 95 mg/dL (74-106); Magnesium 1.8 mg/dL (1.6-2.6); Osmolality,Calculated 289 (275-295); Phosphorous 2.9 mg/dL (2.4-5.1); Potassium 4.3 mMol/L (3.4-5.1); Sodium 145 mMol/L (136-145); Total Protein 5.9 gm/dL (5.7-8.2); eGFR 54 See Note
[2024-10-13 07:57] LABS: Basophils # (Auto) 0.0 Thou/mm3 (0.0-0.2); Basophils % (Auto) 0 % (0-2.5); Eosinophils # (Auto) 0.1 Thou/mm3 (0.0-0.5); Eosinophils % (Auto) 5 % (0-10); Hematocrit 25.6 % (36.0-46.0); Immature Granulocytes Auto 0.01 Thou/mm3 (0.00-0.00); Lymphocytes # (Auto) 0.8 Thou/mm3 (1.0-4.8); Lymphocytes % (Auto) 35 % (10-50); Mean Corpuscular HGB Conc 32.8 g/dl (31.0-37.0); Mean Corpuscular Hemoglobin 36.5 pg (25.0-35.0); Mean Corpuscular Volume 111 fL (80-100); Monocytes # (Auto) 0.2 Thou/mm3 (0.0-0.8); Monocytes % (Auto) 8 % (0-12); Neutrophils # (Auto) 1.2 Thou/mm3 (1.8-7.7); Neutrophils % (Auto) 52 % (37-80); Nucleated Red Blood Cell # 0.00 Thou/mm3 (0.00-0.00); Nucleated Red Blood Cell % 0 /100 WBC (0); RDW Standard Deviation 78.1 fL (36.4-46.3); Red Blood Count 2.30 Miln/mm3 (4.00-5.20); White Blood Count 2.4 Thou/mm3 (3.6-11.0)
[2024-10-13 08:28] LABS: Hemoglobin 8.4 g/dL (12.0-16.0); Platelet Count 39 Thou/mm3 (140-440)
[2024-10-13 09:15] LABS: Slide Review Platelets confirmed
[2024-10-13 09:27] LABS: INR 2.4 (0.9-1.3); Partial Thromboplastin Time 52.7 Seconds (22.0-36.0); Prothrombin Time 24.5 Seconds (9.0-12.2)
[2024-10-13] MEDS: FUROSEMIDE INJ 10 MG/ML VIAL 2 ML 20 MG IVP (09:43)
[2024-10-13] MEDS: SPIRONOLACTONE 25 MG TABLET PO (09:43)
[2024-10-13] MEDS: PANTOPRAZOLE 40 MG TABLET PO (09:43)
--- NOTE | 2024-10-13 11:21 | ESPR_ITS ---
<Statement entered by Fernie Calderon MD - 10/13/24 12:11> I have reviewed the note and agree with the resident's assessment & plan with exceptions as below. I have personally reviewed labs, imaging, home meds/prior records, examined the patient, formulated and discussed management plan with the IM team. Patient examined at bedside today. No acute overnight events. Patient's hemoglobin stable today at 8.4 and platelets at 39. Will attempt with diuresis 20 g IV Lasix with holding parameters. Patient is net positive on this admission, we will have to get some fluid off. Anticipate discharge in the next 24 to 48 hours. Hold off on paracentesis at this time. Repeat hematology and chemistry in AM. Continue to be on telemetry. Fernie Calderon, PGY-2 Internal Medicine Documentation for date of: 10/13/24 Subjective Subjective Interval history: 53 y/o female with a history of alcoholic cirrhosis, hepatic encephalopathy, prior variceal bleeding, chronic pain, T2DM, on admission day 3 for decompensated acute on chronic liver cirrhosis, worsening body pain, generalized weakness, symptomatic anemia, and poor oral intake. No significant overnight events. Patient was seen at bedside today morning. Patient was sitting up in the bed, comfortably watching a movie on her phone. Patient has had 2 watery BMs today morning. Patient generally looks and feels better, still notes usual abdominal pain. Exam Vital Signs Temp Pulse Resp BP Pulse Ox O2 Del Method O2 Flow Rate 97.2 F 64 18 102/55 L 95 Room Air 96 10/13/24 08:00 10/13/24 09:43 10/13/24 09:08 10/13/24 09:43 10/13/24 08:00 10/13/24 08:00 10/11/24 13:06 Narrative Exam General: Patient is fully alert and oriented. No acute distress. Cardio: RRR, no mumurs, gallops or rubs appreciated. Resp: No wheezing or crackles auscultated. Shallow breaths. Unable to take deep breaths. MSK: Diffuse muscle pain with any movement of upper or lower extremity. Strength 3/5 in upper and lower extremities bilaterally. Unable to sit up due to pain and weakness. GI: Diffuse abdominal tenderness, most prominent palak-umbilical. Significant visual abdominal distension. Abdomen soft to palpation. Extremities: 2+ pitting edema in lower extremities bilaterally upto mid tibia. Dorsalis pedis pulses +2 bilaterally Neuro: AAOx3, Sensation intact in upper and lower extremities bilaterally. Strength diminished. Psych: Good judgement, thought and behavior. Cooperative Objective Labs 10/13/24 07:05 10/13/24 04:43 Labs: Laboratory Results - last 24 hr 10/12/24 10/13/24 10/13/24 14:07 04:43 07:05 WBC 2.4 L RBC 2.30 L Hgb 8.4 L Hct 25.6 L MCV 111 H MCH 36.5 H MCHC 32.8 RDW Std Deviation 78.1 H Plt Count 39 L Neut % (Auto) 52 Lymph % (Auto) 35 [place] % (Auto) 8 Eos % (Auto) 5 Baso % (Auto) 0 Neut # (Auto) 1.2 L Lymph # (Auto) 0.8 L [place] # (Auto) 0.2 Eos # (Auto) 0.1 Baso # (Auto) 0.0 Immature Gran # (Auto) 0.01 H Absolute Nucleated RBC 0.00 Immature Gran % 0 Nucleated RBC % 0 PT 24.5 H INR 2.4 H APTT 52.7 H D Sodium 145 Potassium 4.3 Chloride 111 H Carbon Dioxide 22.6 Anion Gap 11 BUN 16 Creatinine 1.2 Estim Creat Clear Calc 50.1 L eGFR 54 L BUN/Creatinine Ratio 13 Glucose 95 Calculated Osmolality 289 Lactic Acid 3.8 H Calcium 9.9 Corrected Calcium 10.2 H Phosphorus 2.9 Magnesium 1.8 Total Bilirubin 5.4 H D AST 30 ALT 9 L Alkaline Phosphatase 46 Total Protein 5.9 Albumin 3.6 Globulin 2.3 Albumin/Globulin Ratio 1.6 Misc Test Result Platelets confirmed Quality Measures Quality Measures VTE prophylaxis Assessment & Plan Assessment Current Active Medications: Generic Name Dose Route Start Last Admin Trade Name Freq PRN Reason Stop Dose Admin Acetaminophen 650 mg 10/10/24 21:05 10/12/24 21:12 Acetaminophen 325 Mg Tablet PO 11/09/24 21:04 650 mg Q6H PRN Administration Fever >100.4 or pain 1-3 Dextrose 25 ml 10/10/24 21:16 10/10/24 21:36 Dextrose 50%-Water Inj 50 Ml Syringe IV 11/09/24 21:15 25 ml Q15MIN PRN Administration BG 50-70 responsive npo pt Dextrose 50 ml 10/10/24 21:16 Dextrose 50%-Water Inj 50 Ml Syringe IV 11/09/24 21:15 Q15MIN PRN BG <50 OR BG <70 & pt unresponsive Furosemide 20 mg 10/13/24 09:00 10/13/24 09:43 Furosemide Inj 10 Mg/Ml Vial 2 Ml IVP 11/12/24 08:59 20 mg QDAY CELINA Administration Glucagon 1 mg 10/10/24 21:16 Glucagon Inj 1 Mg Vial IM Q15MIN PRN BG <70, and no IV access Hydromorphone HCl 0.5 mg 10/11/24 04:59 Hydromorphone Inj 2 Mg/Ml Vial IVP 10/15/24 21:04 Q4HR PRN PAIN SCALE 7-10 (Severe Piperacillin/Tazobactam/Dextrose 3.375 gm in 50 mls @ 12.5 mls/hr 10/11/24 14:00 10/13/24 05:40 Zosyn IV 10/18/24 13:59 12.5 mls/hr Q8HR CELINA Administration Insulin Human Lispro 0 unit 10/11/24 07:30 10/13/24 09:43 Insulin Lispro (Admelog) 1 Unit/0.01 Ml Unit SC 11/10/24 07:29 Not Given AC CELINA Protocol Lactulose 10 gm 10/13/24 14:00 Lactulose Syrup 20 Gm/30 Ml Udc PO 11/12/24 13:59 TID CELINA Protocol Midodrine 15 mg 10/12/24 22:00 10/13/24 05:40 Midodrine 5 Mg Tablet PO 11/11/24 21:59 15 mg TID CELINA Administration Ondansetron HCl 4 mg 10/10/24 21:05 Ondansetron Inj 2 Mg/Ml Inj 2 Ml IVP 11/09/24 21:04 Q6H PRN NAUSEA OR VOMITING Protocol Pantoprazole Sodium 40 mg 10/13/24 09:00 10/13/24 09:43 Pantoprazole 40 Mg Tablet PO 11/12/24 08:59 40 mg QDAY CELINA Administration Protocol Rifaximin 550 mg 10/11/24 10:15 10/13/24 09:43 Rifaximin 550 Mg Tablet PO 10/18/24 10:14 550 mg BID CELINA Administration Spironolactone 25 mg 10/12/24 11:00 10/13/24 09:43 Spironolactone 25 Mg Tablet PO 11/11/24 10:59 25 mg DAILY CELINA Administration Tramadol HCl 50 mg 10/10/24 21:05 10/13/24 05:46 Tramadol Hcl 50 Mg Tablet PO 10/15/24 21:04 50 mg Q6HR PRN Administration PAIN SCALE 4-6 (Moderate Plan 53 y/o female with a history of alcoholic cirrhosis, hepatic encephalopathy, prior variceal bleeding, chronic pain, T2DM, on admission day 3 for decompensated acute on chronic liver cirrhosis, worsening body pain, generalized weakness, symptomatic anemia, and poor oral intake. #Acute on chronic decompensated liver cirrhosis #Thrombocytopenia/Coagulopathy/Bleeding Plan - Decreased lactulose 10 mg TID b/c of increased watery BMs, cont and home med rifamixin - Diuretics- Aldactone 25mg x1, Lasix 20 mg IVP. Monitor BP, hold if MAP below 65. - Albumin 25 QD - Monitor for bleeding - Monitor CBC, tranfuse if hemoglobin drops below 7. - Cont Tele monitoring # Generalized Weakness and body Pain - Patient has advanced liver disease, symptomatic anemia, poor appetite, weight loss Plan: - Nutrition consult in place - Oral Protein supplements - Liquid diet advanced, will monitor. #Dyspnea # Possible perihilar and left basilar pneumonia as per CXR # Pleural effusion Plan - Diuretics if BP allows: Aldactone and Lasix - Monitor Oxygen saturation, supplement if needed. - Will consider thoracenthesis if no improvement. # LILY, improving Baseline Cr ~1.0, now 1.2 with BUN 16 In setting of cirrhosis, poor PO intake. DDX: prerenal azotemia vs hepatorenal syndrome vs ATN (ischemic/septic) vs less likely obstructive. Plan - Trend CMP, strict I/Os - Albumin 25 g IV qday - Hold nephrotoxins (NSAIDs, LOLITA/ARB, metformin, diuretics for now) - Monitor on tele # Chronic pain - Continue PRN pain management # T2DM - Last A1c 6.0, metformin held due to LILY. - SSI while inpatient Health Maintenance: Code Status: Full DVT Prophylaxis: SCDs GI Prophylaxis: Protonix Diet: Clear liquid Liz: Liz Catheter Lines: PIV Supplemental O2: None Disposition: Med Tele Patient seen and care discussed with my attending physician, Dr. Morrison and my senior resident, Dr. Yumiko Wilkins, [facility] Attending Provider Attestation/Addendum I reviewed labs, imaging, EKG, home medications and prior available records. Face to face evaluation was performed by me. I have personally examined the patient and discussed assessment and plan with the IM team. I reviewed the resident note and agree with the plan with exceptions as below. Acute hypotension Alcoholic cirrhosis with ascites Pleural effusion Generalized weakness Symptomatic anemia Thrombocytopenia LILY Lactic acidosis Chronic low back pain Gave IV albumin BP improved, started Lasix No sufficient fluid for safe paracentesis H&H is stable Platelet level slightly improved Continue alcohol abstinence Creatinine improved Ordered renal ultrasound that showed moderate scarring Continue to monitor kidney function Continue alcohol abstinence Continue pain management as needed Continue lactulose Outpatient follow-up with hepatology Ordered PT evaluation Ordered home health Reason for stay: Still symptomatic. Monitoring BP after starting diuresis
[2024-10-13] MEDS: INSULIN LISPRO (AdmeLOG) 1 UNIT/0.01 ML UNIT SC ×2 (11:39→17:18)
[2024-10-13 12:02] LABS: Lactate (Lactic Acid) 2.6 mMol/L (0.4-2.0)
[2024-10-13] MEDS: LACTULOSE SYRUP 20 GM/30 ML UDC 10 GM PO (13:20)
[2024-10-13 15:01] LABS: Reflex Lactate? Y
[2024-10-13 15:28] LABS: Lactic Acid, 3 HR 2.9 mMol/L (0.4-2.0)
[2024-10-13] MEDS: ACETAMINOPHEN 325 MG TABLET 650 MG PO (21:54)
[2024-10-14] VITALS (13 sets, daily range): BP systolic 87–130; BP diastolic 57–77; PULSE 50–70; RESP 12–20; TEMP 36.1–37.3; O2SAT 93–95
[2024-10-14] MEDS: MIDODRINE 5 MG TABLET 15 MG PO ×3 (05:25→21:52)
[2024-10-14] MEDS: PIPER/TAZO 3.375 GM PREMIX 3.375 GM/50 ML BAG IV ×3 (05:26→21:54)
[2024-10-14] MEDS: LACTULOSE SYRUP 20 GM/30 ML UDC 10 GM PO (05:26)
[2024-10-14 05:50] LABS: Basophils # (Auto) 0.0 Thou/mm3 (0.0-0.2); Basophils % (Auto) 0 % (0-2.5); Eosinophils # (Auto) 0.1 Thou/mm3 (0.0-0.5); Eosinophils % (Auto) 6 % (0-10); Hematocrit 26.8 % (36.0-46.0); Hemoglobin 9.0 g/dL (12.0-16.0); Immature Granulocytes Auto 0.01 Thou/mm3 (0.00-0.00); Lymphocytes # (Auto) 0.9 Thou/mm3 (1.0-4.8); Lymphocytes % (Auto) 37 % (10-50); Mean Corpuscular HGB Conc 33.6 g/dl (31.0-37.0); Mean Corpuscular Hemoglobin 37.7 pg (25.0-35.0); Mean Corpuscular Volume 112 fL (80-100); Monocytes # (Auto) 0.2 Thou/mm3 (0.0-0.8); Monocytes % (Auto) 8 % (0-12); Neutrophils # (Auto) 1.2 Thou/mm3 (1.8-7.7); Neutrophils % (Auto) 48 % (37-80); Nucleated Red Blood Cell # 0.00 Thou/mm3 (0.00-0.00); Nucleated Red Blood Cell % 0 /100 WBC (0); RDW Standard Deviation 77.2 fL (36.4-46.3); Red Blood Count 2.39 Miln/mm3 (4.00-5.20); White Blood Count 2.4 Thou/mm3 (3.6-11.0)
[2024-10-14 05:55] LABS: Platelet Count 37 Thou/mm3 (140-440)
[2024-10-14 05:59] LABS: Slide Review Platelets confirmed
[2024-10-14 06:46] LABS: Alanine Aminotransferase 8 U/L (10-49); Albumin, Serum 3.2 gm/dL (3.5-5.0); Albumin/Globulin Ratio 1.4 (1.2-2.2); Alkaline Phosphatase 52 U/L (46-116); Anion Gap 9 (7-16); Aspartate Amino Transferase 29 U/L (0-34); BUN/Creatinine Ratio 12 Ratio (12-20); Bilirubin,Total 5.1 mg/dL (0.3-1.2); Blood Urea Nitrogen 12 mg/dL (9-23); Calcium 9.6 mg/dL (8.3-10.6); Calcium (Corrected) 10.2 mg/dL (8.5-10.1); Carbon Dioxide 26.1 mMol/L (20.0-31.0); Chloride 111 mMol/L (98-107); Creatinine (Component) 1.0 mg/dL (0.6-1.3); Estimated Creatinine Clearance 60.2 mL/min (>60); Globulin 2.3 gm/dL (2.3-3.5); Glucose 91 mg/dL (74-106); Magnesium 1.6 mg/dL (1.6-2.6); Osmolality,Calculated 290 (275-295); Phosphorous 3.1 mg/dL (2.4-5.1); Potassium 4.0 mMol/L (3.4-5.1); Sodium 146 mMol/L (136-145); Total Protein 5.5 gm/dL (5.7-8.2); eGFR > 60 See Note
[2024-10-14] MEDS: PANTOPRAZOLE 40 MG TABLET PO (09:18)
[2024-10-14] MEDS: SPIRONOLACTONE 25 MG TABLET PO (09:18)
[2024-10-14] MEDS: FUROSEMIDE INJ 10 MG/ML VIAL 2 ML 20 MG IVP (09:23)
--- NOTE | 2024-10-14 09:49 | PC.SS ---
INGOT PASSER confirmed that preferred home health agency is [facility].
--- NOTE | 2024-10-14 13:21 | ESPR_ITS ---
Documentation for date of: 10/14/24 Subjective Subjective Interval history: Patient was seen and examined at bedside. Her mother was concerned that she has shallow breathing however patient was saturating well, patient denied any feeling of chest tightness or shortness of breath. Patient lying bed comfortably on room air, denied any new symptoms. Hemoglobin stable at 9.0, WBC 2.4, platelets 37, sodium mildly elevated 146, serum creatinine down trended from 1.2-1.0. Patient blood pressure was on the soft side she is on midodrine 10 mg p.o. 3 times daily, patient on Lasix 20 mg IV daily tolerating well also on spironolactone 25 mg p.o. daily. Patient still on Zosyn for her SBP and also given her lactulose and rifaximin. Has had 4 bowel movements for the past 24 hours. Patient was supposed to be discharged today however noticed that she has right upper extremity swelling more than the left. Patient was only given 50 mL of IV meds on that IV site, less likely to be IV infiltrate. For that reason we ordered upper extremity ultrasound bilaterally. If negative anticipated discharge within the next 24 hours Exam Vital Signs Temp Pulse Resp BP Pulse Ox O2 Del Method O2 Flow Rate 97.1 F 56 L 20 98/61 95 Room Air 96 10/14/24 12:00 10/14/24 12:00 10/14/24 12:00 10/14/24 12:00 10/14/24 12:10/14/24 12:00 10/11/24 13:06 Narrative Exam GEN: AOx3, able to speak full sentences HEENT: NC/AC, icteric, pale, oral mucosa moist, neck supple CVS: RRR, S1-S2 present, no murmurs appreciated RESP: CTAB GI: soft, mildly distended, mild discomfort on deep palpation, NBS MSK: able to move all 4 limbs, +1 lower extremity edema SKIN: warm and dry CIVIL CELEBRANT: CN II-XII and Sensation grossly intact. Objective Labs 10/15/24 04:30 10/15/24 04:30 Labs: Laboratory Results - last 24 hr 10/13/24 10/14/24 15:15 05:04 WBC 2.4 L RBC 2.39 L Hgb 9.0 L Hct 26.8 L MCV 112 H MCH 37.7 H MCHC 33.6 RDW Std Deviation 77.2 H Plt Count 37 L Neut % (Auto) 48 Lymph % (Auto) 37 Sutter % (Auto) 8 Eos % (Auto) 6 Baso % (Auto) 0 Neut # (Auto) 1.2 L Lymph # (Auto) 0.9 L Sutter # (Auto) 0.2 Eos # (Auto) 0.1 Baso # (Auto) 0.0 Immature Gran # (Auto) 0.01 H Absolute Nucleated RBC 0.00 Immature Gran % 0 Nucleated RBC % 0 Sodium 146 H Potassium 4.0 Chloride 111 H Carbon Dioxide 26.1 Anion Gap 9 BUN 12 Creatinine 1.0 Estim Creat Clear Calc 60.2 L eGFR > 60 BUN/Creatinine Ratio 12 Glucose 91 Calculated Osmolality 290 Lactic Acid 2.9 H Calcium 9.6 Corrected Calcium 10.2 H Phosphorus 3.1 Magnesium 1.6 Total Bilirubin 5.1 H AST 29 ALT 8 L Alkaline Phosphatase 52 Total Protein 5.5 L Albumin 3.2 L Globulin 2.3 Albumin/Globulin Ratio 1.4 Misc Test Result Platelets confirmed Quality Measures Quality Measures none Assessment & Plan Assessment Current Active Medications: Generic Name Dose Route Start Last Admin Trade Name Freq PRN Reason Stop Dose Admin Acetaminophen 650 mg 10/10/24 21:05 10/13/24 21:54 Acetaminophen 325 Mg Tablet PO 11/09/24 21:04 650 mg Q6H PRN Administration Fever >100.4 or pain 1-3 Dextrose 25 ml 10/10/24 21:16 10/10/24 21:36 Dextrose 50%-Water Inj 50 Ml Syringe IV 11/09/24 21:15 25 ml Q15MIN PRN Administration BG 50-70 responsive npo pt Dextrose 50 ml 10/10/24 21:16 Dextrose 50%-Water Inj 50 Ml Syringe IV 11/09/24 21:15 Q15MIN PRN BG <50 OR BG <70 & pt unresponsive Furosemide 20 mg 10/13/24 09:00 10/14/24 09:23 Furosemide Inj 10 Mg/Ml Vial 2 Ml IVP 11/12/24 08:59 20 mg QDAY CELINA Administration Glucagon 1 mg 10/10/24 21:16 Glucagon Inj 1 Mg Vial IM Q15MIN PRN BG <70, and no IV access Hydromorphone HCl 0.5 mg 10/11/24 04:59 Hydromorphone Inj 2 Mg/Ml Vial IVP 10/15/24 21:04 Q4HR PRN PAIN SCALE 7-10 (Severe Piperacillin/Tazobactam/Dextrose 3.375 gm in 50 mls @ 12.5 mls/hr 10/11/24 14:00 10/14/24 05:26 Zosyn IV 10/18/24 13:59 12.5 mls/hr Q8HR CELINA Administration Insulin Human Lispro 0 unit 10/11/24 07:30 10/14/24 11:38 Insulin Lispro (Admelog) 1 Unit/0.01 Ml Unit SC 11/10/24 07:29 Not Given AC CELINA Protocol Lactulose 10 gm 10/13/24 14:00 10/14/24 05:26 Lactulose Syrup 20 Gm/30 Ml Udc PO 11/12/24 13:59 10 gm TID CELINA Administration Protocol Midodrine 15 mg 10/12/24 22:00 10/14/24 05:25 Midodrine 5 Mg Tablet PO 11/11/24 21:59 15 mg TID CELINA Administration Ondansetron HCl 4 mg 10/10/24 21:05 Ondansetron Inj 2 Mg/Ml Inj 2 Ml IVP 11/09/24 21:04 Q6H PRN NAUSEA OR VOMITING Protocol Pantoprazole Sodium 40 mg 10/13/24 09:00 10/14/24 09:18 Pantoprazole 40 Mg Tablet PO 11/12/24 08:59 40 mg QDAY CELINA Administration Protocol Rifaximin 550 mg 10/11/24 10:15 10/14/24 09:18 Rifaximin 550 Mg Tablet PO 10/18/24 10:14 550 mg BID CELINA Administration Spironolactone 25 mg 10/12/24 11:00 10/14/24 09:18 Spironolactone 25 Mg Tablet PO 11/11/24 10:59 25 mg DAILY CELINA Administration Tramadol HCl 50 mg 10/10/24 21:05 10/13/24 17:09 Tramadol Hcl 50 Mg Tablet PO 10/15/24 21:04 50 mg Q6HR PRN Administration PAIN SCALE 4-6 (Moderate Plan 53 y/o female with a history of alcoholic cirrhosis, hepatic encephalopathy, prior variceal bleeding, chronic pain, T2DM, on admission day 3 for decompensated acute on chronic liver cirrhosis, worsening body pain, generalized weakness, symptomatic anemia, and poor oral intake. #SBP with mild ascites #Hepatic encephalopathy grade 1-2 #Acute on chronic decompensated liver cirrhosis #Thrombocytopenia #coagulopathy #Lower GI bleed. Controlled Patient is known case of liver cirrhosis secondary to alcohol use disorder, presented with generalized weakness, fatigue, mild shortness of breath, and reportedly blood whenever she wipes herself. Vaginal examination was negative for vaginal bleed. Her hemoglobin stable since admission did not require any blood transfusion. Ultrasound paracentesis: There was no fluid sufficient for paracentesis. Her last EGD was done in June 13, [address] Culp and showed grade 3 varices in the lower third of the esophagus were 2 bands were placed at that time. It was also found diffuse erythematous mucosa with stigmata of recent bleed in the gastric antrum. Plan - Decreased lactulose 10 mg TID b/c of increased watery BMs, cont and home med rifamixin - Zosyn IV 3 times daily as the patient may have associated pneumonia - Diuretics- Aldactone 25mg daily - Midodrine 10 mg 3 times daily p.o. - Protonix 40mg IV qDay - Lasix 20 mg IVP. Monitor BP, hold if MAP below 65. - Monitor for bleeding - Monitor CBC, tranfuse if hemoglobin drops below 7. May need outpatient EGD/colonoscopy - Cont Tele monitoring #Right upper extremity DVT rule out Patient at increased risk of developing thromboembolism due to her liver cirrhosis. noticed that she has right upper extremity swelling more than the left. Patient was only given 50 mL of IV meds on that IV site, less likely to be IV infiltrate. Plan ? Bilateral upper extremity ultrasound. # Community-acquired pneumonia # Pleural effusion Patient presented with shortness of breath, exertional dyspnea, orthopnea. She reported mild episodes of cough. Her vitals showed low blood pressure initially of 81/47 however she was on room air. WBC was 5.4. Chest x-ray showed perihilar left basilar pneumonia associated with mild pleural effusion Plan - Zosyn 3.375 g IV every 8 hours 10/10? - Diuretics if BP allows: Aldactone and Lasix - Monitor Oxygen saturation, supplement if needed. - Will consider thoracenthesis if no improvement. # LILY, resolved # Chronic pain - Continue PRN pain management # T2DM - Last A1c 6.0, metformin held due to LILY. - SSI while inpatient Health Maintenance: Code Status: Full DVT Prophylaxis: SCDs GI Prophylaxis: Protonix Diet: Clear liquid Liz: Liz Catheter Lines: PIV Supplemental O2: None Disposition: Telemetry - Patient's plan and care discussed with my attending, Dr. Prince Friedman MD Internal Medicine PGY-3 Attending Provider Attestation/Addendum I reviewed labs, imaging, EKG, home medications and prior available records. Face to face evaluation was performed by me. I have personally examined the patient and discussed assessment and plan with the IM team. I reviewed the resident note and agree with the plan with exceptions as below. Acute hypotension Alcoholic cirrhosis with ascites Pleural effusion Generalized weakness Symptomatic anemia Thrombocytopenia LILY Lactic acidosis Chronic low back pain Gave IV albumin BP improved, started Lasix and spironolactone No sufficient fluid for safe paracentesis H&H is stable Platelet level slightly improved Continue alcohol abstinence Creatinine improved Ordered renal ultrasound that showed moderate scarring Continue to monitor kidney function Continue alcohol abstinence Continue pain management as needed Continue lactulose Outpatient follow-up with hepatology Ordered PT evaluation Ordered home health Patient had right lower extremity swelling. Ordered ultrasound to rule out DVT. Kept the patient till 10/15
--- NOTE | 2024-10-14 13:55 | PD.RESDS ---
Planned Discharge Date 10/14/24 DS: Providers Provider Date of admission: 10/10/24 21:00 Primary care physician: Fernie Calderon MD Admitting Provider: Torin Beasley MD Attending Provider on Admission: Paras Morrison MD Consults: 10/10/24 21:19 Referral Registered Dietitian Routine Comment: Attending Provider on DC: Mary Grace Friedman MD Discharging Provider: Mary Grace Friedman MD DS: Diagnosis Problem List Completed Was Problem List Reviewed/Reconciled?: Yes Hospital Course Hospital Course Hospital course: A 53-year-old female patient with past medical history of decompensated liver cirrhosis secondary to alcohol, multiple admissions secondary to hepatic encephalopathy, variceal bleed, chronic back pain, type 2 diabetes mellitus, came to the hospital due to generalized body pain, decreased oral intake and generalized weakness and evaluation patient was found to have blood pressure of 95/60, abdominal distention with fluid thrill, diffuse tenderness, lower extremity edema, her serum creatinine was 1.8, potassium 5.5, and hemoglobin 9.4. Patient was found to be in hepatic encephalopathy state chest x-ray showed left basilar pneumonia. Patient was given lactulose, rifaximin, Zosyn, spironolactone, Lasix,. Patient condition continued to improve, and became oriented x 3 with significant improvement of her level of energy. Abdominal ultrasound for paracentesis was ordered however the amount of fluid was insufficient for safe paracentesis. Patient has had 4 bowel movements per day since admission. Regarding her lower GI bleed her hemoglobin noted to be stable. During her hospitalization and she reported that her bleeding has stopped. She had EGD was done in May 2024 and it was positive for grade 3 esophageal varices and was band ligation was done. At this time patient deemed to be clinically stable for discharge and to follow-up outpatient settings. Discharge diagnosis #Decompensated liver cirrhosis #Lower GI bleed #Coagulopathy #Spontaneous bacterial peritonitis #Hepatic encephalopathy #Left basal pneumonia #History of diabetes mellitus type 2 #History of chronic back pain - Patient's plan and care discussed with my attending, Dr. Prince Friedman MD Internal Medicine PGY-3 Time Spent with Patient Time attestation: Total time spent providing and/or coordinating discharge services: Time spent: Greater than 30 minutes Home Health Home Health Referral Orders: 10/13/24 08:58 Home Health Referral Routine Reason For Exam: Home PT, patient safety, medication administration Home-Bound The patient must either because of illness or injury, need the aid of supportive devices such as crutches, canes, wheelchairs, and walkers; the use of special transportation; or the assistance of another person in order to leave their place of residence; OR have a condition such that leaving his or her home is medically contraindicated. In addition, the patient also meets the following criteria: patient is normally unable to leave the home and leaving home requires considerable taxing effort. Addendum to Home Health Certification Practitioner's Certification: I certify that the patient has been under my care in the hospital and the care of attending physician (see below). We had a [id number] encounter on (see date below). My clinical findings indicate that the patient is home bound per the above criteria and the Home Health Services noted in these orders are medically necessary. The primary reason for the [id number] encounter is related to the fact that the patient requires home health services. Date Certifying [id number] Physician Encounter: 10/10/24 Physician's Name who will Assume Oversight for HH Services: Fernie Calderon SAL[employer] REPRESENTATIVE [employer] - Community Resources: Yes PT to Evaluate: Yes PT to evaluate and provide a treatmnet plan to increase patient's mobility and strength. Wound Care: No IV Therapy: No RN Safety Evaluation: Yes RN to evaluate and create a plan of care that will produce positive outcomes. Palliative Treatment: No Palliative treatment and evaluate the need for hospice. Home Health Aide - Personal Care: Yes Home Health Aide to assist with any ADL's. Exam Vital Signs Temp Pulse Resp BP Pulse Ox O2 Del Method O2 Flow Rate 97.1 F 56 L 20 98/61 95 Room Air 96 10/14/24 12:10/14/24 12:10/14/24 12:10/14/24 12:10/14/24 12:10/14/24 12:10/11/24 13:06 Narrative Exam GEN: AOx3, able to speak full sentences HEENT: NC/AC, icteric, pale, oral mucosa moist, neck supple CVS: RRR, S1-S2 present, no murmurs appreciated RESP: CTAB GI: soft, mildly distended, mild discomfort on deep palpation, NBS MSK: able to move all 4 limbs, +1 lower extremity edema SKIN: warm and dry WELL LOGGING CAPTAIN MUD ANALYSIS: CN II-XII and Sensation grossly intact. Discharge Plan Plan Patient Disposition: Home w/HOME HEALTH Patient condition on transfer: Stable Care Plan Goals: Discharge instructions: Follow up with your PCP within one week from discharge Follow up with your GI specialist within one to two weeks from discharge as you may need upper endoscopy Use medications as prescribed Stop using Metformin it was switch to Januvia 50mg per oral Qday In case of worsening of your symptoms please return to the ED as soon as possible Use meds as prescribed on this discharge packet Prescriptions/Referrals Prescriptions/Med Rec: New midodrine 10 mg tablet 10 mg PO QID 14 Days Qty: 56 0RF Rx Instructions: do not give last dose of day after 6PM or within 4 hrs of bedtime Januvia 50 mg tablet 50 mg PO QDAY 14 Days Qty: 14 0RF Continued pantoprazole 40 mg tablet,delayed release (DR/EC) 40 mg PO QDAY 30 Days Qty: 30 2RF Rx Instructions: Take one tablet by mouth every day before food mirtazapine [Remeron] 30 mg tablet 30 mg PO QHS 30 Days Qty: 30 1RF Rx Instructions: Take one tablet by mouth at bedtime cholecalciferol (vitamin D3) 1,250 mcg (50,000 unit) tablet 1,250 mcg PO QWEEK 90 Days Qty: 13 0RF Rx Instructions: Take one tablet by mouth once a week Xifaxan 550 mg tablet 550 mg PO BID 30 Days Qty: 60 2RF Rx Instructions: Take one tablet by mouth twice a day methocarbamol 750 mg tablet 750 mg PO BID 30 Days Qty: 60 2RF Rx Instructions: Take one tablet by mouth twice a day (DME) lancets [FreeStyle Lancets] 28 gauge misc See Rx Instructions .Route Qty: 100 5RF Rx Instructions: Use TID and PRN As directed (DME) Freestyle InsuLinx Test Strips Strip See Rx Instructions .Route Qty: 100 5RF Rx Instructions: Test TID and PRN As directed lidocaine 5 % adhesive patch,medicated 1 patch topical QDAY 30 Days Qty: 30 2RF Rx Instructions: Apply to affected area as directed hydrocodone-acetaminophen 5-325 mg tablet 1 tab PO Q6H MDD 4 tablets in one day PRN (Reason: pain) Qty: 60 0RF Rx Instructions: Take one tablet by mouth up to every 6 hours (DME) lancets [Acti-Petar Lancets] 28 gauge misc See Rx Instructions .Route Qty: 100 2RF Rx Instructions: As directed (DME) Accu-Chek Idania Plus test strp Strip See Rx Instructions .Route Qty: 100 2RF Rx Instructions: As directed (DME) blood-glucose meter [FreeStyle Whitmer Lite] Kit See Rx Instructions .Route Qty: 1 0RF Rx Instructions: As directed furosemide [Lasix] 20 mg tablet 20 mg PO QDAY Qty: 90 0RF Rx Instructions: Hold if SBP drops below 100 and DBP below 60 mmHg lactulose 10 gram packet 30 g PO TID 90 Days Qty: 30 0RF levofloxacin 500 mg tablet 500 mg PO QDAY Qty: 5 0RF spironolactone 50 mg tablet 50 mg PO DAILY Discontinued propranolol 10 mg tablet 10 mg PO BID 30 Days Qty: 60 2RF Rx Instructions: Take one tablet by mouth twice a day metformin 1,000 mg tablet 1,500 mg PO QDAY 30 Days Qty: 45 2RF Rx Instructions: Take one and a half tablet by mouth every day midodrine 10 mg tablet 10 mg PO TID 30 Days Qty: 90 3RF Rx Instructions: Take one tablet by mouth three times a day, hold if SBP above 120 hydrocodone-acetaminophen 5-325 mg tablet 1 tab PO Q6H MDD 3 PRN (Reason: pain) Qty: 10 0RF metformin 1,000 mg tablet 1,000 mg PO DAILY Patient Comments: TAKE 1 1/2 TABLETS BY MOUTH ONCE A DAY Referrals: Fernie Calderon MD [Primary Care Provider] - Patient/Caregiver Discharge Instructions Discharge Activity: as per physical therapy Education Materials: Tests for Liver Disease, Discharge Instructions for ..., ED Upper GI Bleeding (Stable) Print Language: Thai Stand Alone Forms: [employer]erv[employer] Award Info., Patient Portal Info Letter Quality Discharge Quality Measures VTE prophylaxis Attestestation Attestation I reviewed labs, imaging, EKG, home medications and prior available records. Face to face evaluation was performed by me. I have personally examined the patient and discussed assessment and plan with the IM team. I reviewed the resident note and agree with the plan with exceptions as below. See progress note
--- NOTE | 2024-10-14 14:35 | XR_ITS ---
Examination: Venous duplex upper extremity sonogram, bilateral. Date and time of exam: October 14, 2024, 1508 hrs. Indications: Bilateral arm pain and bruising beginning one week ago. Technique: Multiple sonographic images of the deep venous system have been obtained. B-mode/2-D grayscale imaging of vascular structures and Doppler spectral analysis (waveforms) and color performed Both legs are examined. Findings: Deep venous systems do not demonstrate abnormal echogenicity. All visualized deep veins exhibit compressibility. All visualized deep veins exhibit augmentation. Impression: Negative for deep vein thrombosis
[2024-10-14] MEDS: HYDROmorphone INJ 2 MG/ML VIAL 0.5 MG IVP (21:53)
[2024-10-15] VITALS (9 sets, daily range): BP systolic 103–128; BP diastolic 57–80; PULSE 51–70; RESP 11–20; TEMP 36–37.1; O2SAT 93–98
[2024-10-15] MEDS: MIDODRINE 5 MG TABLET 15 MG PO (05:01)
[2024-10-15] MEDS: LACTULOSE SYRUP 20 GM/30 ML UDC 10 GM PO (05:01)
[2024-10-15] MEDS: PIPER/TAZO 3.375 GM PREMIX 3.375 GM/50 ML BAG IV (05:03)
[2024-10-15 05:39] LABS: Basophils # (Auto) 0.0 Thou/mm3 (0.0-0.2); Basophils % (Auto) 1 % (0-2.5); Eosinophils # (Auto) 0.2 Thou/mm3 (0.0-0.5); Eosinophils % (Auto) 6 % (0-10); Hematocrit 29.8 % (36.0-46.0); Hemoglobin 9.8 g/dL (12.0-16.0); Immature Granulocytes Auto 0.01 Thou/mm3 (0.00-0.00); Lymphocytes # (Auto) 1.1 Thou/mm3 (1.0-4.8); Lymphocytes % (Auto) 39 % (10-50); Mean Corpuscular HGB Conc 32.9 g/dl (31.0-37.0); Mean Corpuscular Hemoglobin 36.6 pg (25.0-35.0); Mean Corpuscular Volume 111 fL (80-100); Monocytes # (Auto) 0.3 Thou/mm3 (0.0-0.8); Monocytes % (Auto) 8 % (0-12); Neutrophils # (Auto) 1.4 Thou/mm3 (1.8-7.7); Neutrophils % (Auto) 46 % (37-80); Nucleated Red Blood Cell # 0.00 Thou/mm3 (0.00-0.00); Nucleated Red Blood Cell % 0 /100 WBC (0); RDW Standard Deviation 82.8 fL (36.4-46.3); Red Blood Count 2.68 Miln/mm3 (4.00-5.20); White Blood Count 3.0 Thou/mm3 (3.6-11.0)
[2024-10-15 05:45] LABS: Platelet Count 35 Thou/mm3 (140-440)
[2024-10-15 06:16] LABS: Alanine Aminotransferase 8 U/L (10-49); Albumin, Serum 3.2 gm/dL (3.5-5.0); Albumin/Globulin Ratio 1.3 (1.2-2.2); Alkaline Phosphatase 53 U/L (46-116); Anion Gap 9 (7-16); Aspartate Amino Transferase 31 U/L (0-34); BUN/Creatinine Ratio 9 Ratio (12-20); Bilirubin,Total 6.2 mg/dL (0.3-1.2); Blood Urea Nitrogen 8 mg/dL (9-23); Calcium 9.9 mg/dL (8.3-10.6); Calcium (Corrected) 10.5 mg/dL (8.5-10.1); Carbon Dioxide 30.4 mMol/L (20.0-31.0); Chloride 106 mMol/L (98-107); Creatinine (Component) 0.9 mg/dL (0.6-1.3); Estimated Creatinine Clearance 66.9 mL/min (>60); Globulin 2.5 gm/dL (2.3-3.5); Glucose 98 mg/dL (74-106); Magnesium 1.4 mg/dL (1.6-2.6); Osmolality,Calculated 287 (275-295); Phosphorous 3.0 mg/dL (2.4-5.1); Potassium 4.1 mMol/L (3.4-5.1); Sodium 145 mMol/L (136-145); Total Protein 5.7 gm/dL (5.7-8.2); eGFR > 60 See Note
[2024-10-15 06:28] LABS: Slide Review Platelets confirmed
[2024-10-15] MEDS: FUROSEMIDE INJ 10 MG/ML VIAL 2 ML 20 MG IVP (09:02)
[2024-10-15] MEDS: Magnesium Sulfate 4 GM Ivpb 4 GM/50 ML BAG IV (09:05)
[2024-10-15] MEDS: PANTOPRAZOLE 40 MG TABLET PO (09:05)
[2024-10-15] MEDS: SPIRONOLACTONE 25 MG TABLET PO (09:05)
[2024-10-15] MEDS: HYDROmorphone INJ 2 MG/ML VIAL 0.5 MG IVP (09:52)
--- NOTE | 2024-10-15 15:25 | PC.CC ---
Addendum entered by Leonardo Lomax RN 10/15/24 15:32: Patient was referred to home health with [facility], will resume care on 10/17/24. Original Note: Home health referral sent to [facility] via [employer], awaiting response at this time.
--- NOTE | 2024-10-15 19:50 | PD.RESDS ---
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 Patient was found to be in hepatic encephalopathy state chest x-ray showed left basilar pneumonia. Patient was given lactulose, rifaximin, Zosyn, spironolactone, Lasix,. Patient condition continued to improve, and became oriented x 3 with significant improvement of her level of energy. Abdominal ultrasound for paracentesis was ordered however the amount of fluid was insufficient for safe paracentesis. Patient has had 4 bowel movements per day since admission. Regarding her lower GI bleed her hemoglobin noted to be stable. During her hospitalization and she reported that her bleeding has stopped. She had EGD was done in May 2024 and it was positive for grade 3 esophageal varices and was band ligation was done. Patient was noted to have right upper extremity swelling more than the left. venous Doppler ultrasound of bilateral upper extremity was negative for DVTs. The swelling resolved today and the 2 extremities appeared to be of similar size. At this time patient deemed to be clinically stable for discharge and to follow-up outpatient settings. Discharge diagnosis #Decompensated liver cirrhosis #Lower GI bleed #Coagulopathy #Spontaneous bacterial peritonitis #Hepatic encephalopathy #Left basal pneumonia #History of diabetes mellitus type 2 #History of chronic back pain Discharge instructions: - Follow up with your PCP within one week from discharge - Follow up with your GI specialist within one to two weeks from discharge as you may need upper endoscopy - Continue Lactulose as prescribed - Lasix increased to 40mg daily. Continue Spirinolactone 50mg - Stop using Metformin it was switch to Januvia 50mg per oral Qday - In case of worsening of your symptoms please return to the ED as soon as possible - Use meds as prescribed on this discharge packet. This case was discussed with my attending physician, Dr. Morrison, and senior resident, Dr Natalee Quintero. Leonard Fields, DO PGY I Time Spent with Patient Time attestation: Total time spent providing and/or coordinating discharge services: Time spent: Greater than 30 minutes Home Health Home Health Referral Orders: 10/15/24 14:08 Home Health Referral Routine Reason For Exam: Home PT, patient safety, and medication help Home-Bound The patient must either because of illness or injury, need the aid of supportive devices such as crutches, canes, wheelchairs, and walkers; the use of special transportation; or the assistance of another person in order to leave their place of residence; OR have a condition such that leaving his or her home is medically contraindicated. In addition, the patient also meets the following criteria: patient is normally unable to leave the home and leaving home requires considerable taxing effort. Addendum to Home Health Certification Practitioner's Certification: I certify that the patient has been under my care in the hospital and the care of attending physician (see below). We had a [id number]-[id number] encounter on (see date below). My clinical findings indicate that the patient is home bound per the above criteria and the Home Health Services noted in these orders are medically necessary. The primary reason for the [id number] encounter is related to the fact that the patient requires home health services. Date Certifying Qyii-jx-Jqla Physician Encounter: 10/10/24 Physician's Name who will Assume Oversight for HH Services: Fernie Calderon DIE CUTTER - Community Resources: Yes PT to Evaluate: Yes PT to evaluate and provide a treatmnet plan to increase patient's mobility and strength. Wound Care: No IV Therapy: No RN Safety Evaluation: Yes RN to evaluate and create a plan of care that will produce positive outcomes. Palliative Treatment: No Palliative treatment and evaluate the need for hospice. Home Health Aide - Personal Care: Yes Home Health Aide to assist with any ADL's. Exam Vital Signs Temp Pulse Resp BP Pulse Ox O2 Del Method O2 Flow Rate 97.8 F 63 20 104/62 93 L Room Air 96 10/15/24 15:30 10/15/24 15:30 10/15/24 15:30 10/15/24 15:30 10/15/24 15:30 10/15/24 15:30 10/11/24 13:06 Narrative Exam GEN: AOx3, able to speak full sentences HEENT: NC/AC, icteric, pale, oral mucosa moist, neck supple CVS: RRR, S1-S2 present, no murmurs appreciated RESP: CTAB GI: soft, mildly distended, mild discomfort on deep palpation, NBS MSK: able to move all 4 limbs, +1 lower extremity edema SKIN: warm and dry SENIOR STATISTICAL PROGRAMMER: CN II-XII and Sensation grossly intact. Discharge Plan Plan Patient Disposition: Home w/HOME HEALTH Patient condition on transfer: Stable Care Plan Goals: Discharge instructions: - Follow up with your PCP within one week from discharge - Follow up with your GI specialist within one to two weeks from discharge as you may need upper endoscopy - Continue Lactulose as prescribed - Lasix increased to 40mg daily. Continue Spirinolactone 50mg - Stop using Metformin it was switch to Januvia 50mg per oral Qday - In case of worsening of your symptoms please return to the ED as soon as possible - Use meds as prescribed on this discharge packet. Prescriptions/Referrals Prescriptions/Med Rec: New midodrine 10 mg tablet 10 mg PO QID 14 Days Qty: 56 0RF Rx Instructions: do not give last dose of day after 6PM or within 4 hrs of bedtime Januvia 50 mg tablet 50 mg PO QDAY 14 Days Qty: 14 0RF furosemide 40 mg tablet 40 mg PO QAM Qty: 30 0RF Continued pantoprazole 40 mg tablet,delayed release (DR/EC) 40 mg PO QDAY 30 Days Qty: 30 2RF Rx Instructions: Take one tablet by mouth every day before food mirtazapine [Remeron] 30 mg tablet 30 mg PO QHS 30 Days Qty: 30 1RF Rx Instructions: Take one tablet by mouth at bedtime cholecalciferol (vitamin D3) 1,250 mcg (50,000 unit) tablet 1,250 mcg PO QWEEK 90 Days Qty: 13 0RF Rx Instructions: Take one tablet by mouth once a week Xifaxan 550 mg tablet 550 mg PO BID 30 Days Qty: 60 2RF Rx Instructions: Take one tablet by mouth twice a day methocarbamol 750 mg tablet 750 mg PO BID 30 Days Qty: 60 2RF Rx Instructions: Take one tablet by mouth twice a day (DME) lancets [FreeStyle Lancets] 28 gauge misc See Rx Instructions .Route Qty: 100 5RF Rx Instructions: Use TID and PRN As directed (DME) Freestyle InsuLinx Test Strips Strip See Rx Instructions .Route Qty: 100 5RF Rx Instructions: Test TID and PRN As directed lidocaine 5 % adhesive patch,medicated 1 patch topical QDAY 30 Days Qty: 30 2RF Rx Instructions: Apply to affected area as directed hydrocodone-acetaminophen 5-325 mg tablet 1 tab PO Q6H MDD 4 tablets in one day PRN (Reason: pain) Qty: 60 0RF Rx Instructions: Take one tablet by mouth up to every 6 hours (DME) lancets [Acti-Petar Lancets] 28 gauge misc See Rx Instructions .Route Qty: 100 2RF Rx Instructions: As directed (DME) Accu-Chek Idania Plus test strp Strip See Rx Instructions .Route Qty: 100 2RF Rx Instructions: As directed (DME) blood-glucose meter [FreeStyle [place] Lite] Kit See Rx Instructions .Route Qty: 1 0RF Rx Instructions: As directed lactulose 10 gram packet 30 g PO TID 90 Days Qty: 30 0RF levofloxacin 500 mg tablet 500 mg PO QDAY Qty: 5 0RF spironolactone 50 mg tablet 50 mg PO DAILY Discontinued propranolol 10 mg tablet 10 mg PO BID 30 Days Qty: 60 2RF Rx Instructions: Take one tablet by mouth twice a day metformin 1,000 mg tablet 1,500 mg PO QDAY 30 Days Qty: 45 2RF Rx Instructions: Take one and a half tablet by mouth every day midodrine 10 mg tablet 10 mg PO TID 30 Days Qty: 90 3RF Rx Instructions: Take one tablet by mouth three times a day, hold if SBP above 120 furosemide [Lasix] 20 mg tablet 20 mg PO QDAY Qty: 90 0RF Rx Instructions: Hold if SBP drops below 100 and DBP below 60 mmHg hydrocodone-acetaminophen 5-325 mg tablet 1 tab PO Q6H MDD 3 PRN (Reason: pain) Qty: 10 0RF metformin 1,000 mg tablet 1,000 mg PO DAILY Patient Comments: TAKE 1 1/2 TABLETS BY MOUTH ONCE A DAY Referrals: Fernie Calderon MD [Primary Care Provider] - Patient/Caregiver Discharge Instructions Discharge Activity: as per physical therapy Education Materials: Tests for Liver Disease, Discharge Instructions for ..., ED Upper GI Bleeding (Stable) Print Language: Turkish Stand Alone Forms: Mervat Award Info., Patient Portal Info Letter Discharge Order Discharge Orders: Discharge (Routine); Ordered 10/15/24 Ordered By: Leonard Fields Quality Discharge Quality Measures VTE prophylaxis Attestestation Attestation I reviewed labs, imaging, EKG, home medications and prior available records. Face to face evaluation was performed by me. I have personally examined the patient and discussed assessment and plan with the IM team. I reviewed the resident note and agree with the plan with exceptions as below. Acute hypotension Alcoholic cirrhosis with ascites Pleural effusion Generalized weakness Symptomatic anemia Thrombocytopenia LILY Lactic acidosis Chronic low back pain Gave IV albumin BP improved, started Lasix and spironolactone which we will continue upon discharge No sufficient fluid for safe paracentesis H&H is stable Platelet level slightly improved Continue alcohol abstinence Creatinine improved Ordered renal ultrasound that showed moderate scarring Continue to monitor kidney function Continue alcohol abstinence Continue pain management as needed Continue lactulose Outpatient follow-up with hepatology Ordered PT evaluation Ordered home health Patient had right lower extremity swelling. Ordered ultrasound that showed no DVT Time spent is 40 minutes. More than 50% of the time was spent on patient education and coordination of care.
== END 2024-10-15 15:25 | disposition home health service (06) | DRG 280 ==
LOC: SERX 19:56 → SERHOLD 22:00 → S3SX 10-11 07:54 → S2NX 10-11 11:17
PROVIDERS: Registered Nurse General Practice; Admitting Provider Internal Medicine; Emergency Provider Emergency Medicine; Visit Provider Student in an Organized Health Care Education/Training Program
DX: K70.40 Alcoholic hepatic failure without coma (principal); Z76.82 Awaiting organ transplant status; G89.29 Other chronic pain; E11.9 Type 2 diabetes mellitus without complications; R31.0 Gross hematuria; R82.81 Pyuria; N17.9 Acute kidney failure, unspecified; F32.A Depression, unspecified; F41.9 Anxiety disorder, unspecified; E87.5 Hyperkalemia; D61.818 Other pancytopenia; D68.9 Coagulation defect, unspecified; R64 Cachexia; F10.10 Alcohol abuse, uncomplicated; I85.10 Secondary esophageal varices without bleeding; E87.20 Acidosis, unspecified; K76.82 Hepatic encephalopathy; I82.621 Acute embolism and thrombosis of deep veins of right upper extremity; K70.31 Alcoholic cirrhosis of liver with ascites; K92.2 Gastrointestinal hemorrhage, unspecified; J90 Pleural effusion, not elsewhere classified; K65.2 Spontaneous bacterial peritonitis; Z79.84 Long term (current) use of oral hypoglycemic drugs; J18.9 Pneumonia, unspecified organism; Z79.899 Other long term (current) drug therapy
CPT/HCPCS: 36415; 36430; 71045; 74176; 76705; 76770; 80053; 80069; 80307; 81001; 81025; 82042; 82140; 82150; 82270; 82945; 83605; 83615; 83735; 83880; 84100; 84157; 84484; 85014; 85018; 85025; 85610; 85730; 86850; 86900; 86901; 86923; 86927; 86965; 87070; 87075; 87077; 87081; 87086; 87186; 87205; 89051; 93005; 93970; 96361; 96365; 96366; 96375; 99285; A4649; J1171; J1815; J1938; J2470; J2543; J3430; J3475; J7030; J7999; P9016; P9035; P9047; P9060; A9270

== ENCOUNTER 2024-10-22 09:19 | Outpatient (AMB) | payer MEDICAID, SELFPAY ==
--- NOTE | 2024-10-22 09:27 | PD.RESCLINIC ---
Vital Signs 10/22/24 09:28 Weight Measurement Method Wheelchair BP 103/68 Blood Pressure Source Automatic Cuff Blood Pressure Location Right Upper Arm Position Sitting Respiration 18 Pulse 61 Pulse Source Monitor Temp 97.6 F Temp Source Oral Pulse Oximetry (%) 97 Oxygen Delivery Method Room Air Allergies/Meds Allergies & Medications Allergies latex Allergy (Severe, Verified 10/22/24 09:29) Hives Medication Reconciliation blood sugar diagnostic (Accu-Chek Idania Plus test strips) #100 ea 07/23/24 [Rx Confirmed 10/22/24] lancets 28 gauge (Acti-Petar Lancets) #100 ea 07/23/24 [Rx Confirmed 10/22/24] blood-glucose meter (FreeStyle [place] Lite kit) #1 ea 08/10/24 [Rx Confirmed 10/22/24] cholecalciferol (vitamin D3) 1,250 mcg (50,000 unit) tablet 1,250 mcg PO QWEEK 3 months #13 tabs 09/10/24 [Rx Confirmed 10/22/24] mirtazapine 30 mg tablet (Remeron) 30 mg PO QHS 1 month #30 tabs 09/10/24 [Rx Confirmed 10/22/24] pantoprazole 40 mg tablet,delayed release 40 mg PO QDAY 1 month #30 tabs 09/10/24 [Rx Confirmed 10/22/24] levofloxacin 500 mg tablet 500 mg PO QDAY #5 tabs 09/28/24 [Rx Confirmed 10/22/24] blood sugar diagnostic (Freestyle InsuLinx Test Strips) #100 ea 10/01/24 [Rx Confirmed 10/22/24] lancets 28 gauge (FreeStyle Lancets) #100 ea 10/01/24 [Rx Confirmed 10/22/24] lidocaine 5 % topical patch 1 patch topical QDAY 1 month #30 ea 10/01/24 [Rx Confirmed 10/22/24] methocarbamol 750 mg tablet 750 mg PO BID 1 month #60 tabs 10/01/24 [Rx Confirmed 10/22/24] rifaximin 550 mg tablet (Xifaxan) 550 mg PO BID 1 month #60 tabs 10/01/24 [Rx Confirmed 10/22/24] spironolactone 50 mg tablet 50 mg PO DAILY 10/11/24 [History Confirmed 10/22/24] midodrine 10 mg tablet 10 mg PO QID 14 days #56 tabs 10/14/24 [Rx Confirmed 10/22/24] sitagliptin phosphate 50 mg tablet (Januvia) 50 mg PO QDAY 14 days #14 tabs 10/14/24 [Rx Confirmed 10/22/24] furosemide 40 mg tablet 40 mg PO QAM #30 tabs 10/15/24 [Rx Confirmed 10/22/24] hydrocodone 5 mg-acetaminophen 325 mg tablet 1 tab PO Q6H PRN pain #60 tabs 10/22/24 [Rx] magnesium oxide 400 mg PO QDAY #30 tabs 10/22/24 [Rx] MA Intake Visit Data Collection New Patient or Established: Established Patient (seen at [facility] within 3 years) Seen by Clinical Staff ONLY (RN/MA): No Pain Present Currently: No Pain scale:: 0 Pain Scale Used: [place]/Numerical PCP or OBGYN visit in last 3 months: Yes Smoking Status Smoking Status: Never smoker Immunization / Flu Flu Vaccine in the Last 12 Months: No Flu Vaccine Exclusion Criteria: No Exclusion Criteria Past Medical History Past Medical History NEUROLOGIC: Positive Neurological Disorders, Migraine and Spinal Cord Injury; Negative Seizures CARDIAC: Positive Hypotension; Negative Cardiac Disorders or Congestive Heart Failure RESPIRATORY: Negative Chronic Obstructive Pulmonary Disease (COPD) or Asthma GASTROINTESTINAL: Positive Gastrointestinal Disorders, Cirrhosis, Gastrointestinal Bleed, Esophageal Varices and Hemorrhoids GENITOURINARY: Positive Renal Disease REPRODUCTIVE: Positive Endometriosis and Previous Pregnancies ENDOCRINE: Positive Endocrine Disorders and Diabetes Mellitus Type 2; Negative Diabetes Mellitus Type 1 HEMATOLOGIC: Positive Blood Disorders and Anemia; Negative Sickle Cell Disease PSYCHO/SOCIAL: Positive Depression and Anxiety OTHER HISTORY: Positive Chicken Pox and Measles; Negative Autoimmune Disease, Blood Transfusions, Blood Transfusion Reaction, Anesthesia Reactions or Cancer Family History FAMILY HISTORY: Positive Family Psychiatric Problems and Family Cancer; Negative Family Respiratory Disorders, Family Cardiac Disorders, Family Gastrointestinal Problems, Family Surgery or Family Anesthesia Reaction Surgical History SURGICAL: Positive Abdominal Surgery and Section Social History SMOKING STATUS: Smoking status: Never smoker SECOND HAND EXPOSURE: second hand exposure: No ALCOHOL: Alcohol Intake: Former ALCOHOL FREQUENCY: Alcohol Intake Frequency: 3 or More Drinks per Day HOUSING: Housing: House LIVES WITH: Lives With: Family Patient Portal Questionaires PHQ-9 PHQ-2 Over the last 2 weeks, how often have you been bothered by any of the following problems? 1. Little interest or pleasure in doing things: not at all PHQ-9 8. Moving or speaking so slowly that other people could have noticed? - Or the opposite - being so fidgety or restless that you have been moving around a lot more than usual: not at all Source: Developed by Drs. Shady Eli, Pilar Brunson, Jordan Worthy and colleagues, with an educational viry from [employer]. Social History Living Situation History Housing: House Housing Other:: Pt lives with mom and kids Tobacco History Smoking Status: Never smoker Second Hand Smoke Exposure: No Alcohol History Alcohol Intake: Former Alcohol Intake Frequency: 3 or More Drinks per Day Alcohol Intake Frequency Other:: 5 drinks a day Review of Systems Report any current symptoms Only answer those that you have currently: Past Medical History Past Medical History Have you ever been diagnosed with any of the following: Neurological Problems Seizures: No Migraine: Yes Spinal Cord Injury: Yes Cardiology Problems Congestive Heart Failure: No Hypotension: Yes Respiratory Problems Chronic Obstructive Pulmonary Disease (COPD): No Asthma: No Stomache/Intestinal Problems Cirrhosis: Yes Gastrointestinal Bleed: Yes Esophageal Varices: Yes Hemorrhoids: Yes Genital/Urinary Problems Renal Disease: Yes Reproductive Problems Endometriosis: Yes Previous Pregnancies: Yes Endocrine Problems Diabetes Mellitus Type 1: No Diabetes Mellitus Type 2: Yes Blood Problems Anemia: Yes Sickle Cell Disease: No Psychologic Problems Depression: Yes Anxiety: Yes Other Problems Autoimmune Disease: No Blood Transfusions: No Blood Transfusion Reaction: No Anesthesia Reactions: No Chicken Pox: Yes Measles: Yes Cancer: No History of Present Illness HPI Narrative 10/22/2024: Patient is a known patient returning to the clinic. She was recently discharged from the hospital for hepatic encephalopathy. Patient is well known to have decompensated liver disease due to extensive alcohol use history. Does also have a history of esophageal varices that required band ligation via EGD in the past. Today the patient feels well and has no acute complaints. Does note that she has low blood pressures, but has not become symptomatic from it. Is complaint with medications and takes lactulose to achieve 2-3 bowel movements daily. She plans for appointment with a liver specialist in [place] on November 29. Will have patient f/u in 3 weeks and recheck CMP and magnesium. Prescribed patient magnesium oxide 400 mg daily as she had hypomagnesemia during most recent hospitalization. Refilled Buda. Review of Systems Review of Systems Systems Reviewed: All systems reviewed, normal except as documented Objective/Exam Narrative Physical exam: Physical Exam: General: Alert, no acute distress. Skin: Warm, dry, intact. Head: Normocephalic, atraumatic. Eye: Icteric conjunctiva, PERRL. Throat: Oral mucosa moist. No obvious lesions in oropharynx. Cardiovascular: Regular rate and rhythm, no murmur, +S1/S2. Respiratory: Lungs are clear to auscultation, respirations unlabored, no crackles, no wheezing. Gastrointestinal: Soft, nontender, distended. No guarding or rebound tenderness. Extremities: No edema, no cyanosis, no clubbing. Neuro: No focal deficits observed. Conversant, moving all extremities. No overt cerebellar signs/incoordination. Psychiatric: Cooperative, appropriate affect. Assessment & Plan Diagnosis / Problem List (1) Cirrhosis: Status: Acute Qualifiers: Ascites presence: without ascites Hepatic cirrhosis type: alcoholic cirrhosis Qualified Code(s): K70.30 - Alcoholic cirrhosis of liver without ascites Assessment & Plan: Secondary to extensive history of alcohol abuse, cessation since 2023. History of variceal bleed s/p banding and recurrent episodes of hepatic encephalopathy. T bili since last admission 09/28 downtrending towards baseline. Previously scheduled to see oil bay technician on 09/28/24 however lost follow up due to admission. Plans to see oil bay technician on 11/29/24. Plan: - Continue Rifaxmin 550 mg daily - Continue Lactulose ( 2-3 BMs a day) 30 grams TID for goal of 2-3 bowel movements daily - Continue Lasix 40 mg daily - Continue spironolactone 50 mg daily - Continue Buda 5 up to 3x/day - Midodrine 10 mg QID if patient has low blood pressures and becomes symptomatic - Patient to follow up with oil bay technician on 11/29/24 - Encouraged patient to follow up with liver transplant center - Repeat CMP for f/u visit (2) Low back pain: Status: Acute Qualifiers: Back pain laterality: unspecified Chronicity: chronic Sciatica presence: unspecified whether sciatica present Qualified Code(s): M54.50 - Low back pain, unspecified; G89.29 - Other chronic pain Assessment & Plan: Chronic back pain since 2018 s/p work injury. Previous MRI showed minimal disc herniation in 2018. Was following neurosurgeon in [place]. Unclear history. Now nonambulatory, in wheelchair. 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 Plan: - Increase metformin from 1000 to 1500 mg daily - Refilled Lancets and test strips - Educated patient on diabetes and diet/lifestyle modifications - Continue with Accu-checks and sugar log - Pending diabetic eye exam with opthlamologist (4) Hypomagnesemia: Status: Acute Assessment & Plan: Patient noted to have magnesium of 1.4 on 10/15. Plan: - Magnesium oxide 400 mg daily - Magnesium check for f/u visit Additional Assessment Patient plan of care was discussed with attending physician Dr. Kamari Navarro, PGY1 Attending note: I, Alexandre Benites MD, attest that I was physically present for the son portions of the service and evaluated the patient with the resident and I reviewed and discussed the case with the resident and agree with the resident's findings and plans of care as documented above. Alexandre Benites MD Physician Billing Established Patient Established Patient: E/M Level 3-CPT 81703 Office Procedures [facility] Level of Care Nursing/Assessment Patient Status: Established Patient Nursing Assessment/Reassessment: Medication Reconciliation, Update PMH in EMR and Vital Signs Coordination of Care: Complex Care and Chronic Disease 1-5, Education Complex Pt/Fam and Staff clarify orders Established Patient Charge Established Patient Point Assignment: 85 Established Patient Point Charge: EP Level 3 (80-115)
[2024-10-22 09:28] VITALS: BP 103/68; PULSE 61; RESP 18; TEMP 36.4; O2SAT 97
== END 2024-10-22 10:28 | disposition home or self-care (01) ==
LOC: HODAHC 09:19
PROVIDERS: Supervising Provider Internal Medicine; Visit Provider Student in an Organized Health Care Education/Training Program
DX: K70.30 Alcoholic cirrhosis of liver without ascites (principal); K76.82 Hepatic encephalopathy; M54.50 Low back pain, unspecified; E11.65 Type 2 diabetes mellitus with hyperglycemia; Z79.84 Long term (current) use of oral hypoglycemic drugs; E83.42 Hypomagnesemia
CPT/HCPCS: 99213; G0463

== ENCOUNTER 2024-11-13 11:13 | Inpatient (IN) | payer MEDICAID, SELFPAY ==
[2024-11-13 11:14] VITALS: BP 127/77; PULSE 82; RESP 18; TEMP 36.8; O2SAT 96
--- NOTE | 2024-11-13 11:19 | EKG_ITS ---
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1970 Requested By: Rocky Kohli Order Number: [id number] Reading MD: Rocky Kohli Measurements Intervals [place] Rate: 81 P: 30 TX: 140 QRS: 5 QRSD: 73 T: -47 QT: 368 QTc: 427 Interpretive Statements SINUS RHYTHM LOW QRS VOLTAGE IN PRECORDIAL LEADS [QRS DEFLECTION < 1.0 mV IN CHEST LEADS] POSSIBLE INFERIOR MYOCARDIAL INFARCTION , OF INDETERMINATE AGE [30 ms Q WAVE IN II/aVF] Compared to ECG 10/10/2024 17:21:34 Low QRS voltage now present Myocardial infarct finding now present Sinus bradycardia no longer present T-wave abnormality no longer present Possible ischemia no longer present /store/S0/[id number]
--- NOTE | 2024-11-13 11:20 | PD.EDADULT ---
ED General RME/HPI General Chief complaint: Weakness Stated complaint: WEAKNESS Time Seen by Provider: 11/13/24 11:19 Arrival date/time: 11/13/24 11:13 CC: Weakness HPI progressive increase in weakness, EMS reports stable vital signs and route. Patient reports to EMS that patient vomited blood yesterday. But not get checked out. Patient states she has liver failure but denies drinking. Related Data Home Medications ?Medication ?Instructions ?Recorded ?Confirmed spironolactone 50 mg tablet 50 mg PO DAILY 10/11/24 10/22/24 Previous Rx's ?Medication ?Instructions ?Recorded blood sugar diagnostic (Accu-Chek #100 ea 07/23/24 Idania Plus test strips) lancets 28 gauge (Acti-Petar #100 ea 07/23/24 Lancets) blood-glucose meter (FreeStyle #1 ea 08/10/24 Porter Lite kit) cholecalciferol (vitamin D3) 1,250 1,250 mcg PO QWEEK 3 months #13 09/10/24 mcg (50,000 unit) tablet tabs mirtazapine 30 mg tablet (Remeron) 30 mg PO QHS 1 month #30 tabs 09/10/24 pantoprazole 40 mg tablet,delayed 40 mg PO QDAY 1 month #30 tabs 09/10/24 release levofloxacin 500 mg tablet 500 mg PO QDAY #5 tabs 09/28/24 blood sugar diagnostic (Freestyle #100 ea 10/01/24 In[employer]x Test Strips) lancets 28 gauge (FreeStyle #100 ea 10/01/24 Lancets) lidocaine 5 % topical patch 1 patch topical QDAY 1 month #30 ea 10/01/24 methocarbamol 750 mg tablet 750 mg PO BID 1 month #60 tabs 10/01/24 rifaximin 550 mg tablet (Xifaxan) 550 mg PO BID 1 month #60 tabs 10/01/24 furosemide 40 mg tablet 40 mg PO QAM #30 tabs 10/15/24 hydrocodone 5 mg-acetaminophen 325 1 tab PO Q6H PRN pain #60 tabs 10/22/24 mg tablet magnesium oxide 400 mg PO QDAY #30 tabs 10/22/24 Allergies Allergy/AdvReac Type Severity Reaction Status Date / Time latex Allergy Severe Hives Verified 10/22/24 09:29 Review of Systems Review of Systems Narrative Review of Systems: GEN: No fever, no chills, no weight loss EYES: No discharge, no visual changes, no pain HEENT: No ear pain, no congestion, no sore throat PULM: No shortness of breath, no cough, no congestion CV: No chest pain, no dyspnea on exertion, no palpitations GI: No nausea, no vomiting, no diarrhea, + pain, no constipation : No frequency, no urgency, no dysuria MUSC/SKEL: No joint pain, no back pain SKIN: No rash PSYCH: No hallucinations, no depression HEME/LYMPH: No easy bleeding or bruising tendencies NEURO: No weakness, no headache ED Exam Narrative Physical exam: [General: In mild discomfort acute distress Head normocephalic HEENT: Eyes pupils are PERRLA EOMs are intact sclera is icteric. Mouth Lorimor dry membranes uvula is midline swallow symmetrical phonation is normal. Within acceptable limits Neck is supple nontender Chest equal chest rise nontender to palpation Respiratory: Clear to auscultation no wheezes crackles or rubs CV: Rate rhythm is regular no murmurs rubs or clicks Abdomen is distended secondary to body habitus soft, patient grimaces and acknowledges pain with palpation in all quadrants of the abdomen. Positive bowel sounds all 4 quadrants Back: No CVA tenderness no spinous process tenderness from cervical spine thoracic and lumbar spine Skin: Cachectic, intact no petechiae rash induration ulceration or crepitus Extremities: Moving all extremities weakly against resistance cap refill less than 2 seconds neurosensory intact Neuro: Awake alert oriented x2, person and place, Glascow coma 15 no focal deficits] Course Course Course Narrative: Patient's laboratory findings clinical presentation and imaging was discussed with resident for Dr. Lujan who agrees except the patient for admission for LILY and elevated ammonia lower along with hepatic encephalopathy. Quality Measures none Orders Category Date Time Status Admit to Inpatient Status Routine Admission 11/13/24 15:24 Active Patient Condition Routine Admission 11/13/24 15:23 Ordered COVID-19 Screening Questionnaire NOW Care 11/13/24 13:07 Active Decision to Admit X1 Care 11/13/24 13:07 Completed EKG (ED ONLY) *Do not use* NOW Care 11/13/24 11:19 Completed EKG (ED Only) Stat Exams 11/13/24 11:19 Draft Ammonia Stat Lab 11/13/24 12:05 Completed B-Type Natriuretic Peptide Stat Lab 11/13/24 12:05 Completed CBC Stat Lab 11/13/24 12:05 Completed Comprehensive Metabolic Panel Stat Lab 11/13/24 12:05 Completed Drug Screen,Urine Stat Lab 11/13/24 12:55 Completed LDH (Lactate Dehydrogenase) Stat Lab 11/13/24 12:05 Completed Magnesium Stat Lab 11/13/24 12:05 Completed Partial Thromboplastin Time Stat Lab 11/13/24 12:05 Completed Prothrombin Time with INR Stat Lab 11/13/24 12:05 Completed Troponin I Stat Lab 11/13/24 12:05 Completed Type and Screen Stat Lab 11/13/24 12:05 Completed Urinalysis, C/S if Indicated Stat Lab 11/13/24 12:54 Completed Cyanocobalamin [Vitamin B-12] Med 11/14/24 09:00 Active 1,000 mcg PO DAILY Folic Acid Med 11/14/24 09:00 Active 2.5 mg PO DAILY Lactulose Syrup [Enulose Syrup] Med 11/13/24 13:01 Discontinued 20 gm PO X1 ONE Lactulose Syrup [Enulose Syrup] Med 11/13/24 22:00 Discontinued 30 gm PO TID Pantoprazole [Protonix] Med 11/13/24 21:00 Discontinued 40 mg PO BID Ringers Lactated 1000 ml [Lactated Ringers] 1,000 ml Med 11/13/24 15:00 Active IV 75 mls/hr Sodium Chloride 0.9% [Ns] 100 ml Med 11/13/24 15:15 Active Octreotide Acet Inj [SandoSTATIN Inj] 1,000 mcg IV 50 mcg/hr Sodium Chloride 0.9% [Ns] 100 ml Med 11/14/24 11:15 Active Octreotide Acet Inj [SandoSTATIN Inj] 1,000 mcg IV 50 mcg/hr cefTRIAXone/D5w 1gm IV premix [Rocephin/D5w 1gm IV Med 11/13/24 15:10 Active premix] 1 gm in 50 ml IV QDAY Code Status Routine Oth 11/13/24 15:23 Ordered Vital Signs Vital signs: Vital Signs Temperature 98.2 F 11/13/24 11:14 Pulse Rate 82 11/13/24 11:14 Respiratory Rate 18 11/13/24 11:14 Blood Pressure 127/77 11/13/24 11:14 Pulse Oximetry (%) 96 11/13/24 11:14 Oxygen Delivery Method Room Air 11/13/24 11:14 Discharge Plan Plan Patient Disposition: Other Care w/in Hosp ([facility]) Patient condition on transfer: Stable Problem List Clinical Impression: Hepatic encephalopathy, Increased ammonia level, LILY (acute kidney injury) PA/ELECTRICIAN OFFICE Supervising Physician PA/ELECTRICIAN OFFICE Supervising Physician: Rocky John ENP [facility] Clinical Information Provided by: patient and EMS Medical [facility] Medical Records additional comments: Review of the medical record show recent discharge from this facility in the beginning of October 2023 so the patient has a history of 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 Meds/Rx considered, not ordered None Labs/Rad/Tests considered, not ordered None Chronic Illness/Social Conditions Explain: Cirrhosis secondary to alcohol abuse EKG Interpretation EKG #1: EKG Interpretation: EKG performed at 1130 shows ventricular rate of 81 NC interval 140 QRS of 73 QTc of 405, low voltage EKG. Sinus rhythm compared to an old EKG of September 2024 morphology is unchanged. Labs Labs: interpreted by tx Lab(s) Interpretation(s): CBC shows no leukocytosis she has chronic but stable anemia with a hemoglobin of 10.6 and a hematocrit of 31.0 patient has thrombocytopenia with platelet count at 32. Coags show PTT of 7.7, INR 1.7 PTT within acceptable limits CMP shows BUN of 30 creatinine of 2.4 glucose at 146 no other electrolyte imbalances. Note: Review of the medical record show the patient has currently in significant LILY. T. bili at 6.5 AST of 48 ALT of 18 alk phos at 106 Ammonia at 153 Medication Administration(s) Medication Administration History Acetaminophen (Acetaminophen 325 Mg Tablet) 650 mg PO Q6H PRN PRN Reason: PAIN 1-3 OR FEVER > 101 Stop: 12/13/24 15:29 Hydrocodone Bitart/Acetaminophen (Hydrocodone/Apap 5/325 Tablet) 1 tab PO Q4HR PRN PRN Reason: Pain Scale 4-10 Stop: 11/18/24 15:29 Cyanocobalamin (Cyanocobalamin 500 Mcg Tablet) 1,000 mcg PO DAILY CELINA Stop: 12/14/24 08:59 Dextrose (Dextrose 50%-Water Inj 50 Ml Syringe) 25 ml IV Q15MIN PRN PRN Reason: BG 50-70 responsive npo pt Stop: 12/13/24 17:20 Dextrose (Dextrose 50%-Water Inj 50 Ml Syringe) 50 ml IV Q15MIN PRN PRN Reason: BG <50 OR BG <70 & pt unresponsive Stop: 12/13/24 17:20 Folic Acid (Folic Acid 1 Mg Tablet) 2.5 mg PO DAILY CELINA Stop: 12/14/24 08:59 Glucagon (Glucagon Inj 1 Mg Vial) 1 mg IM Q15MIN PRN PRN Reason: BG <70, and no IV access Lactated Ringer's (Lactated Ringers) 1,000 mls @ 75 mls/hr IV .[id number] CELINA Stop: 12/13/24 14:59 Last Admin: 11/13/24 16:59 Dose: 75 mls/hr Documented By: ZACHARY Octreotide Acetate 1,000 mcg/ (Sodium Chloride) 102 mls @ 5.1 mls/hr IV .Q20H CELINA; Protocol Stop: 11/18/24 15:02 Ceftriaxone Sodium/Dextrose (Rocephin/D5w 1gm Iv Premix) 1 gm in 50 mls @ 100 mls/hr IV QDAY CELINA Stop: 11/20/24 15:09 Last Infusion: 11/13/24 16:57 Dose: Infused Documented By: Admin: 11/13/24 16:15 Dose: 100 mls/hr Documented By: VG Octreotide Acetate 1,000 mcg/ (Sodium Chloride) 102 mls @ 5.1 mls/hr IV .Q20H ONE; Protocol Stop: 11/14/24 11:14 Last Admin: 11/13/24 16:20 Dose: 50 mcg/hr, 5.1 mls/hr Documented By: ZACHARY Insulin Human Lispro (Insulin Lispro (Admelog) 1 Unit/0.01 Ml Unit) 0 unit SC Q6HR CELINA; Protocol Stop: 12/13/24 17:59 Last Admin: 11/13/24 19:43 Dose: Not Given Documented By: KIM Non-Admin Reason: Per Protocol Lactulose (Lactulose Syrup 10 Gm/15 Ml) 200 gm NC TID CELINA; Protocol Stop: 12/13/24 21:59 Last Admin: 11/13/24 21:14 Dose: 200 gm Documented By: CMC Pantoprazole Sodium (Pantoprazole Inj 40 Mg Vial) 40 mg IVP BID CELINA Stop: 12/13/24 20:59 Last Admin: 11/13/24 21:14 Dose: 40 mg Documented By: CMC Rifaximin (Rifaximin 550 Mg Tablet) 550 mg PO BID CELINA Stop: 11/20/24 20:59 Last Admin: 11/13/24 20:48 Dose: Not Given Documented By: CMC Non-Admin Reason: NPO Discontinued Medications Lactulose (Lactulose Syrup 20 Gm/30 Ml Udc) 20 gm PO X1 ONE; Protocol Stop: 11/13/24 13:02 Last Admin: 11/13/24 13:15 Dose: 20 gm Documented By: Lactulose (Lactulose Syrup 20 Gm/30 Ml Udc) 30 gm PO TID CELINA; Protocol Stop: 12/13/24 21:59 Pantoprazole Sodium (Pantoprazole 40 Mg Tablet) 40 mg PO BID CELINA Stop: 12/13/24 20:59
--- NOTE | 2024-11-13 11:45 | PC.NURSE ---
IN TO ASSESS PT. PT WITH C/O INCREASED WEAKNESS AND 1 EPISODE OF VOMITING BLOOD 2 DAYS AGO. NOTED MOM REPORTS PT WITH DECREASED IN APPETITE FOR THE PAST WEEK AND A HALF. PT HAS ONLY BEEN EATING JELLO INCLUDING RED COLORED JELLO. PT WITHOUT FURTHER COMPLAINTS AT THIS TIME. ORDERS RECEIVED AND INITIATED. CALL LIGHT PLACED WITHIN REACH. MOTHER AT BEDSIDE. PLAN OF CARE ONGOING.
[2024-11-13 12:17] VITALS: PULSE 84; RESP 18; O2SAT 98; BMI 28.3
[2024-11-13 12:20] LABS: Basophils # (Auto) 0.0 Thou/mm3 (0.0-0.2); Basophils % (Auto) 0 % (0-2.5); Eosinophils # (Auto) 0.0 Thou/mm3 (0.0-0.5); Eosinophils % (Auto) 0 % (0-10); Hematocrit 31.0 % (36.0-46.0); Hemoglobin 10.6 g/dL (12.0-16.0); Immature Granulocytes Auto 0.01 Thou/mm3 (0.00-0.00); Lymphocytes # (Auto) 1.1 Thou/mm3 (1.0-4.8); Lymphocytes % (Auto) 24 % (10-50); Mean Corpuscular HGB Conc 34.2 g/dl (31.0-37.0); Mean Corpuscular Hemoglobin 35.5 pg (25.0-35.0); Mean Corpuscular Volume 104 fL (80-100); Monocytes # (Auto) 0.4 Thou/mm3 (0.0-0.8); Monocytes % (Auto) 8 % (0-12); Neutrophils # (Auto) 3.0 Thou/mm3 (1.8-7.7); Neutrophils % (Auto) 67 % (37-80); Nucleated Red Blood Cell # 0.00 Thou/mm3 (0.00-0.00); Nucleated Red Blood Cell % 0 /100 WBC (0); RDW Standard Deviation 68.5 fL (36.4-46.3); Red Blood Count 2.99 Miln/mm3 (4.00-5.20); White Blood Count 4.5 Thou/mm3 (3.6-11.0)
[2024-11-13 12:27] LABS: Platelet Count 32 Thou/mm3 (140-440)
[2024-11-13 12:42] VITALS: BP 131/80; PULSE 72; RESP 16; TEMP 36.4; O2SAT 99
[2024-11-13 12:42] LABS: INR 1.7 (0.9-1.3); Partial Thromboplastin Time 35.5 Seconds (22.0-36.0); Prothrombin Time 17.7 Seconds (9.0-12.2)
[2024-11-13 12:43] LABS: B-Type Natriuretic Peptide 71 pg/mL (0-100)
[2024-11-13 12:46] LABS: Alanine Aminotransferase 18 U/L (10-49); Albumin, Serum 3.2 gm/dL (3.5-5.0); Albumin/Globulin Ratio 0.8 (1.2-2.2); Alkaline Phosphatase 106 U/L (46-116); Anion Gap 13 (7-16); Aspartate Amino Transferase 48 U/L (0-34); BUN/Creatinine Ratio 13 Ratio (12-20); Bilirubin,Total 6.5 mg/dL (0.3-1.2); Blood Urea Nitrogen 30 mg/dL (9-23); Calcium 10.1 mg/dL (8.3-10.6); Calcium (Corrected) 10.7 mg/dL (8.5-10.1); Carbon Dioxide 26.4 mMol/L (20.0-31.0); Chloride 98 mMol/L (98-107); Creatinine (Component) 2.4 mg/dL (0.6-1.3); Estimated Creatinine Clearance 22.0 mL/min (>60); Globulin 3.9 gm/dL (2.3-3.5); Glucose 146 mg/dL (74-106); LDH (Lactate Dehydrogenase) 236 U/L (120-246); Magnesium 2.5 mg/dL (1.6-2.6); Osmolality,Calculated 283 (275-295); Potassium 4.8 mMol/L (3.4-5.1); Sodium 137 mMol/L (136-145); Total Protein 7.1 gm/dL (5.7-8.2); Troponin I 0.031 ng/mL (0.0-0.045); eGFR 24 See Note
[2024-11-13 12:58] LABS: Ammonia 153 uMol/L (11-32)
[2024-11-13 12:59] LABS: Slide Review Platelets confirmed
[2024-11-13 13:08] LABS: Collection Type, Urine Clean Catch
[2024-11-13] MEDS: LACTULOSE SYRUP 20 GM/30 ML UDC PO (13:15)
[2024-11-13 13:22] LABS: Bilirubin,Urine Negative (Negative); Blood,Urine 1+ (Negative); Clarity,Urine Clear (Clear/Hazy); Color,Urine Yellow (Lt Yel-Yel); Culture Indicated,Urine Not Indicated; Glucose, Urine Negative (Negative); Hyaline Casts,Urine < 1 /hpf (0-1); Ketones,Urine Negative (Negative); Leukocyte Esterase,Urine Negative (Negative); Nitrite,Urine Negative (Negative); PH,Urine 5.5 (5.0-7.0); Protein,Urine Negative (Neg - Trace); RBC,Urine 18 /hpf (0-3); Specific Gravity,Urine 1.016 (1.001-1.035); Squamous Epithelial Cell,Urine < 1 /hpf (0-5); Urobilinogen,Urine Negative mg/dL (0.0-1.0); WBC,Urine 5 /hpf (0-5)
[2024-11-13 13:36] LABS: Amphetamine/Methamp Scrn,U Negative (Negative); Barbiturate Screen,Urine Negative (Negative); Benzodiazepines Screen,Urine Negative (Negative); Benzoylecgonine Screen, Ur Negative (Negative); Fentanyl Screen,Urine Negative (Negative); Opiate Screen,Urine Positive (Negative); THC Screen,Urine Negative (Negative)
--- NOTE | 2024-11-13 15:11 | ESHP_ITS ---
<Statement entered by Ken Albright MD - 11/13/24 20:54> 54-year-old female with history of cirrhosis secondary to previous alcohol use, complicated by esophageal varices, multiple admissions for hepatic encephalopathy and being admitted for the same in addition to work-up for GI bleed. Started on lactulose 30 mg TID with titration for 3 BMs per day as well as rifaximin. Also started on octreotide drip, ceftriaxone, and PPI for reported episode of hematemesis per mother and GI also consulted. She is hemodynamically stable and hemoglobin 10.6, which is also at her baseline. Ammonia noted to be elevated at 153 and mother states patient has been compliant with her medications. Otherwise, also presents with an LILY and started on gentle IVF given history of cirrhosis. NPO except for meds given encephalopathic state. ----- Note reviewed and agree with care plan as documented. Please refer to the note below for further details. Plan discussed with attending physician Dr. Seymour Albright MD PGY-2 Internal Medicine Documentation for date of: 11/13/24 HPI History of Present Illness Chief complaint: Altered Mental Status History of present illness: 54 yo F w/ PMH decompensated alcoholic cirrhosis (on transplant list), multiple admissions for hepatic encephalopathy, prior variceal bleeding s/p banding, chronic pain, T2DM presents from home with altered mental status, generalized pain, weakness, poor oral intake, and 2 episodes of hematemesis in the last week. CXR was ordered and she was admitted for suspected hepatic encephalopathy recurrence. Per patient she has been taking prescribed lactulose. History was gathered with aid of mother as patient is extremely weak and unable to speak comfortably. Per mother the patient had experienced loss of appetite for the last week, has had very poor oral intake, and has had 2 episodes of hematemesis. During this period her mentation deteriorated and she has become increasingly confused. She has also developed generalized pain, n/v during this time as well as diarrhea. The patient and mother otherwise deny dysuria, frequency, constipation, fever, chills, SOB, palpitations. In the ED, she was afebrile and hemodynamically stable with SBP in the 120s-130s (above baseline, on home PO Midodrine 10 QID). Exam notable for cachexia, diffuse tenderness, severe asterixis, lethargy/fatigue, generalized weakness and generalized pain. No fever, chills, dysuria, chest pain, palpitations, SOB. Pt is mildly confused, A&Ox2 oriented to name and place. UA showed blood. Labs significant for LILY (Cr 2.4 from baseline ~1.0), anemia (Hgb 10.6 though she trends 8s-10s), hyperammonemia (153), BUN 30, Plt 68.5, MCV 104, PT 17.7, INR 1.7, PTT 35.5 high normal, Tbili 6.5. Exam Vital Signs Temp Pulse Resp BP Pulse Ox O2 Del Method 97.6 F 72 16 131/80 H 99 Room Air 11/13/24 12:42 11/13/24 12:42 11/13/24 12:42 11/13/24 12:42 11/13/24 12:42 11/13/24 12:42 Narrative Exam General: Acute discomfort, ill appearing, lethargic. HEENT: Head normocephalic. Pupils PERRLA, EOM intact, +scleral icterus. Oral mucosa pink and damp. Respiratory: Clear to auscultation no wheezes crackles or rubs. Chest is tender to palpation. CV: Rate rhythm is regular no murmurs rubs or clicks. Abdomen is distended secondary to body habitus soft, patient grimaces and acknowledges pain with palpation in all quadrants of the abdomen. Positive bowel sounds all 4 quadrants Skin: Cachectic, intact, no ulcerations/petechiae/rash Extremities: Moving all extremities weakly against resistance cap. ROM intact Neuro: Awake alert oriented x2, person and place, +severe asterixis Results: Labs 11/14/24 05:23 11/14/24 05:23 Labs: Short CBC 11/13/24 Range/Units 12:05 WBC 4.5 (3.6-11.0) Thou/mm3 Hgb 10.6 L (12.0-16.0) g/dL Hct 31.0 L (36.0-46.0) % Plt Count 32 L (140-440) Thou/mm3 BMP 11/13/24 12:05 Sodium 137 Potassium 4.8 Chloride 98 Carbon Dioxide 26.4 BUN 30 H Creatinine 2.4 H Glucose 146 H Calcium 10.1 Cardiac Enzymes 11/13/24 Range/Units 12:05 Troponin I 0.031 (0.0-0.045) ng/mL Liver Function 11/13/24 Range/Units 12:05 Total Bilirubin 6.5 H (0.3-1.2) mg/dL AST 48 H (0-34) U/L ALT 18 (10-49) U/L Alkaline Phosphatase 106 (46-116) U/L Albumin 3.2 L (3.5-5.0) gm/dL Urine 11/13/24 Range/Units 12:54 Urine Color Yellow (Lt Yel-Yel) Urine Clarity Clear (Clear/Hazy) Urine pH 5.5 (5.0-7.0) Ur Specific [place] 1.016 (1.001-1.035) Urine Protein Negative (Neg - Trace) Urine Glucose (UA) Negative (Negative) Quality Measures Quality Measures VTE prophylaxis Medications Home Medications and Allergies Home Medications ?Medication ?Instructions ?Recorded ?Confirmed ?Type spironolactone 50 mg tablet 50 mg PO DAILY 10/11/24 History lactulose 10 gram/15 mL oral 10 g PO TID 11/14/2403/10 History solution metformin 1,000 mg tablet 1,000 mg PO QDAY 11/14/24 History midodrine 10 mg tablet 10 mg PO Q8H 11/14/24 History Allergies Allergy/AdvReac Type Severity Reaction Status Date / Time latex Allergy Severe Hives Verified 10/22/24 09:29 Visit Medications Cyanocobalamin (Cyanocobalamin 500 Mcg Tablet) 1,000 mcg PO DAILY CELINA Stop: 12/14/24 08:59 Folic Acid (Folic Acid 1 Mg Tablet) 2.5 mg PO DAILY CELINA Stop: 12/14/24 08:59 Lactated Ringer's (Lactated Ringers) 1,000 mls @ 75 mls/hr IV .[id number] CELINA Stop: 12/13/24 14:59 Octreotide Acetate 1,000 mcg/ (Sodium Chloride) 102 mls @ 5.1 mls/hr IV .Q20H CELINA; Protocol Stop: 11/18/24 15:02 Ceftriaxone Sodium/Dextrose (Rocephin/D5w 1gm Iv Premix) 1 gm in 50 mls @ 100 mls/hr IV QDAY CELINA Stop: 11/20/24 15:09 Lactulose (Lactulose Syrup 20 Gm/30 Ml Udc) 30 gm PO TID CELINA; Protocol Stop: 12/13/24 21:59 Pantoprazole Sodium (Pantoprazole 40 Mg Tablet) 40 mg PO BID CELINA Stop: 12/13/24 20:59 Discontinued Medications Lactulose (Lactulose Syrup 20 Gm/30 Ml Udc) 20 gm PO X1 ONE; Protocol Stop: 11/13/24 13:02 Last Admin: 11/13/24 13:15 Dose: 20 gm Assessment & Plan Plan 54yo F with decompensated alcoholic cirrhosis on transplant list, admitted with altered mental status, generalized weakness, LILY, and diffuse pain in the setting of recent hematemesis, poor appetite, poor oral intake. Exam notable for asterixis and cachexia. Labs show LILY, hyperammonemia, anemia on admit. #Hepatic encephalopathy #Hyperammonemia #Hypoalbuminemia Pt presents with highly elevated ammonia (153), lethargy, severe asterixis, cachexia x1 week. In this time they have become extremely weak and generalized in pain. Also has scleral icterus. Exam on admission not notable for particular abdominal distension or b/l LE edema, lungs CTA. Given pt has history of similar episodes of hepatic encephalopathy as well as she reports x2 episodes of hematemesis while having a hx of varices s/p banding it is likely she is experiencing decompensated cirrhosis. Albumin 3.2 on admit. CXR in ED unremarkable. MELD 3.0: 31, 68.3% 90 day survival. Maddreys: 32.7, poor prognosis Additionally as pt is anemic this encounter with hematemesis, GI bleed cannot be ruled out. -Admit telemetry -Started Rifaximin + Lactulose syrup #? GI Bleed #? Hematemesis Pt is anemic this encounter with recent hematemesis, GI bleed cannot be ruled out. -Octeotride drip -Pantaprazole 40 mg IV BID -Rocephin 1g IV (11/13-) -GI consulted, appreciate recs #LILY, unspecified Baseline Cr ~1.1 per chart review, now 2.4 with BUN 30. This in the setting of cirrhosis, poor PO intake x1 week, recent n/v/d with hematemesis Ddx: most likely prerenal azotemia 2/2 hypovolemia vs hepatorenal. -Trend CMP in AM, strict Is/Os, daily weights -Hold nephrotoxic medications -Renally dose medications -Gentle IVF given history of cirrhosis #Cirrhosis most likely 2/2 EtOH Decompensated without ascites this encounter, negative fluid wave, on transplant list. -Manage as above with lactulose, rifaximin -Hold diuretics for now #Chronic pain Pt reports chronic pain since back injury years ago, currently has been taking x3 [place] daily for at least a month per pt. Pain today is generalized, pt reacts in pain regardless of palpation spot across entire body. -Sliding scale pain management with tylenol for low and home [place] for moderate- severe pain. #Thrombocytopenia/Coagulopathy Plt 68.5, INR 1.7. Chronic from cirrhosis. No symptoms of bleed at this time (vitals WNL) however reports recent hematemesis x2 -Avoid anticoagulation -Monitor vitals for bleeding sx -Transfusion if bleeding/Plt<50 #T2DM Last A1c 6.0 09/2024, metformin held due to LILY. -SSI while inpatient #Malnutrition Poor appetite, poor oral intake x1-2 weeks. -Will consult nutrition -Keep NPO overnight, advance as tolerated once mentation improves Hospital management: Disposition: Monitor overnight response to lactulose. Fluids: LR 75ml/hr Lines: Peripheral IV DVT prophylaxis: SCDs GI prophylaxis: IV Protonox 40mg BID Catheter: [employer] CODE STATUS: full code ----- Plan discussed with attending physician Dr. Seymour Chilel, Medical Student O[employer] Attending Provider Attestation/Addendum I have examined the patient, reviewed labs and imaging findings, discussed the case with the resident(s), and reviewed entered orders. I agree with the plan of care as outlined in this note, with these additional summaries/recommendations: After examination of the patient and review of the clinical data, I feel that this patient needs admission to the hospital for further treatment and evaluation. Patient seen at bedside. Patient is encephalopathic most likely secondary to hepatic encephalopathy. Continue lactulose and rifaximin. Unclear trigger as patient appears compliant. No evidence of UTI on urinalysis. Patient's mother and does multiple episodes of hematemesis. Start octreotide and IV Rocephin. Consult gastroenterology, recommendations appreciated. Please see residents note for additional details and management. Dr. Seymour MD
--- NOTE | 2024-11-13 15:36 | XR_ITS ---
Examination: AP chest single view Technique one AP portable supine chest single view Date and time: November 13, 2024 1542 hours, comparison October 12, 2024 INDICATIONS: Shortness of breath and weakness today. FINDINGS: Poor inspiratory effort Mild vascular congestion. Normal heart size. No lobar pneumonia or pulmonary edema Moderate osteopenia IMPRESSION: Poor inspiratory effort chest x-ray
[2024-11-13 16:00] VITALS: BP 111/74; PULSE 71; RESP 16; TEMP 36.6; O2SAT 98
[2024-11-13] MEDS: cefTRIAXone/D5w 1gm IV premix 1 GM/50 ML BAG IV (16:15)
[2024-11-13] MEDS: OCTREOTIDE ACET INJ 1,000 MCG in SODIUM CHLORIDE 0.9% 100 ML 5.1 MCG IV (16:20)
[2024-11-13] MEDS: RINGERS LACTATED 1000 ML 1,000 ML 75 ML IV (16:59)
--- NOTE | 2024-11-13 18:38 | PC.NURSE ---
Patient is LETHARGIC and unable to obtain general admission. Patient is stable and allowed to sleep.
[2024-11-13 20:00] VITALS: BP 117/72; PULSE 72; PULSE 74; RESP 13; TEMP 36.1; O2SAT 97
[2024-11-13] MEDS: LACTULOSE SYRUP 10 GM/15 ML 200 GM PR (21:14)
--- NOTE | 2024-11-13 21:59 | PD.IMCONS ---
HPI Data of Consult Requesting Physician: Stephen Ahuja MD Primary Care Provider: Physician No Primary/Family Consult Narrative Reason for consult: ALOC, ammonia level 153 History of present illness: 54 years old female I been asked to evaluate for altered mental status The patient is well-known to me she has alcohol-induced cirrhotic liver disease advanced portal hypertension and multiple admissions in the past for hepatic encephalopathy GI bleed requiring band ligation of the esophageal varices as well as band ligation of the internal hemorrhoids No history of comorbidities available Patient has been completely abstinent from alcohol Almost close to a year cc:: cc: Stephen Ahuja MD Review of Systems Review of Systems ROS Unobtainable: unobtainable due to medical condition Past Medical History Surgical History OTHER SURGICAL HX: As in the history of present illness Meds Home Medications and Allergies Home Medications ?Medication ?Instructions ?Recorded ?Confirmed ?Type spironolactone 50 mg tablet 50 mg PO DAILY 10/11/24 10/22/24 History Allergies Allergy/AdvReac Type Severity Reaction Status Date / Time latex Allergy Severe Hives Verified 10/22/24 09:29 Exam Vital Signs Temp Pulse Resp BP Pulse Ox O2 Del Method 96.9 F 74 13 117/72 97 Room Air 11/13/24 20:00 11/13/24 20:00 11/13/24 20:00 11/13/24 20:00 11/13/24 20:00 11/13/24 20:00 Constitutional Comments: Obtunded and somnolent Routine Respiratory Exam Comments: Scattered rhonchi Routine Abdominal Exam Comments: Positive for ascites Results Labs 11/13/24 12:05 11/13/24 12:05 Labs: Short CBC 11/13/24 Range/Units 12:05 WBC 4.5 (3.6-11.0) Thou/mm3 Hgb 10.6 L (12.0-16.0) g/dL Hct 31.0 L (36.0-46.0) % Plt Count 32 L (140-440) Thou/mm3 BMP 11/13/24 12:05 Sodium 137 Potassium 4.8 Chloride 98 Carbon Dioxide 26.4 BUN 30 H Creatinine 2.4 H Glucose 146 H Calcium 10.1 Cardiac Enzymes 11/13/24 Range/Units 12:05 Troponin I 0.031 (0.0-0.045) ng/mL Liver Function 11/13/24 Range/Units 12:05 Total Bilirubin 6.5 H (0.3-1.2) mg/dL AST 48 H (0-34) U/L ALT 18 (10-49) U/L Alkaline Phosphatase 106 (46-116) U/L Albumin 3.2 L (3.5-5.0) gm/dL Urine 11/13/24 Range/Units 12:54 Urine Color Yellow (Lt Yel-Yel) Urine Clarity Clear (Clear/Hazy) Urine pH 5.5 (5.0-7.0) Ur Specific [place] 1.016 (1.001-1.035) Urine Protein Negative (Neg - Trace) Urine Glucose (UA) Negative (Negative) Assessment and Plan Additional Assessment & Plan Additional Plan: # Hepatic encephalopathy Lactulose 20 g 4 times daily I do not think patient can drink it Recommend small NGT like 4 [place] and give the lactulose via NGT Xifaxan 550 mg Twice daily Will follow the patient Other medical problems include chronic liver disease advanced portal hypertension ascites and hepatic encephalopathy with history of GI bleed requiring palliation of the esophageal varices as well as internal hemorrhoids Will follow the patient Thank you very much for the opportunity to participate in the care of this patient
[2024-11-14] VITALS (11 sets, daily range): BP systolic 101–123; BP diastolic 61–83; PULSE 68–88; RESP 12–22; TEMP 36.1–36.4; O2SAT 94–99; BMI 29.0
[2024-11-14] MEDS: HYDROmorphone INJ 2 MG/ML VIAL 0.25 MG IVP (01:36)
--- NOTE | 2024-11-14 03:13 | PC.NURSE ---
[facility] downtime from 0200 to 0235.
[2024-11-14] MEDS: RINGERS LACTATED 1000 ML 1,000 ML 75 ML IV (05:32)
[2024-11-14] MEDS: LACTULOSE SYRUP 10 GM/15 ML 200 GM PR (05:33)
[2024-11-14 06:02] LABS: Basophils # (Auto) 0.0 Thou/mm3 (0.0-0.2); Basophils % (Auto) 1 % (0-2.5); Eosinophils # (Auto) 0.1 Thou/mm3 (0.0-0.5); Eosinophils % (Auto) 2 % (0-10); Hematocrit 30.9 % (36.0-46.0); Hemoglobin 10.3 g/dL (12.0-16.0); Immature Granulocytes Auto 0.01 Thou/mm3 (0.00-0.00); Lymphocytes # (Auto) 1.1 Thou/mm3 (1.0-4.8); Lymphocytes % (Auto) 29 % (10-50); Mean Corpuscular HGB Conc 33.3 g/dl (31.0-37.0); Mean Corpuscular Hemoglobin 35.5 pg (25.0-35.0); Mean Corpuscular Volume 107 fL (80-100); Monocytes # (Auto) 0.3 Thou/mm3 (0.0-0.8); Monocytes % (Auto) 8 % (0-12); Neutrophils # (Auto) 2.3 Thou/mm3 (1.8-7.7); Neutrophils % (Auto) 60 % (37-80); Nucleated Red Blood Cell # 0.00 Thou/mm3 (0.00-0.00); Nucleated Red Blood Cell % 0 /100 WBC (0); RDW Standard Deviation 70.5 fL (36.4-46.3); Red Blood Count 2.90 Miln/mm3 (4.00-5.20); White Blood Count 3.8 Thou/mm3 (3.6-11.0)
[2024-11-14 06:08] LABS: Platelet Count 30 Thou/mm3 (140-440)
[2024-11-14] MEDS: LIDOCAINE 5% 1 PATCH TOP (06:27)
[2024-11-14 06:28] LABS: Alanine Aminotransferase 18 U/L (10-49); Albumin, Serum 2.9 gm/dL (3.5-5.0); Albumin/Globulin Ratio 0.8 (1.2-2.2); Alkaline Phosphatase 96 U/L (46-116); Anion Gap 16 (7-16); Aspartate Amino Transferase 45 U/L (0-34); BUN/Creatinine Ratio 12 Ratio (12-20); Bilirubin,Total 6.7 mg/dL (0.3-1.2); Blood Urea Nitrogen 29 mg/dL (9-23); Calcium 9.9 mg/dL (8.3-10.6); Calcium (Corrected) 10.8 mg/dL (8.5-10.1); Carbon Dioxide 23.4 mMol/L (20.0-31.0); Chloride 101 mMol/L (98-107); Creatinine (Component) 2.4 mg/dL (0.6-1.3); Estimated Creatinine Clearance 22.2 mL/min (>60); Globulin 3.7 gm/dL (2.3-3.5); Glucose 126 mg/dL (74-106); Osmolality,Calculated 287 (275-295); Potassium 5.2 mMol/L (3.4-5.1); Sodium 140 mMol/L (136-145); Thyroid Stimulating Hormone 0.45 uIU/mL (0.55-4.78); Total Protein 6.6 gm/dL (5.7-8.2); eGFR 24 See Note
[2024-11-14 06:37] LABS: Slide Review Platelets confirmed
[2024-11-14 08:23] LABS: Free T4 (Free Thyroxine) 0.92 ng/dL (0.89-1.76); Magnesium 2.3 mg/dL (1.6-2.6)
[2024-11-14] MEDS: MIDODRINE 5 MG TABLET PO ×3 (09:03→21:45)
[2024-11-14] MEDS: HYDROcodone/APAP 5/325 TABLET 1 TAB PO ×2 (09:04→14:32)
[2024-11-14] MEDS: cefTRIAXone/D5w 1gm IV premix 1 GM/50 ML BAG IV (09:05)
[2024-11-14] MEDS: FOLIC ACID 1 MG TABLET 2.5 MG PO (09:24)
--- NOTE | 2024-11-14 10:21 | PD.RESPRO ---
Documentation for date of: 11/14/24 Exam Vital Signs Temp Pulse Resp BP Pulse Ox O2 Del Method 97.2 F 85 17 110/65 96 Room Air 11/14/24 08:00 11/14/24 09:03 11/14/24 08:00 11/14/24 09:03 11/14/24 08:00 11/14/24 08:00 Objective Labs 11/14/24 05:23 11/14/24 05:23 Labs: Laboratory Results - last 24 hr 11/13/24 11/13/24 11/13/24 12:05 12:54 12:55 WBC 4.5 RBC 2.99 L Hgb 10.6 L Hct 31.0 L MCV 104 H MCH 35.5 H MCHC 34.2 RDW Std Deviation 68.5 H Plt Count 32 L Neut % (Auto) 67 Lymph % (Auto) 24 Rock % (Auto) 8 Eos % (Auto) 0 Baso % (Auto) 0 Neut # (Auto) 3.0 Lymph # (Auto) 1.1 Rock # (Auto) 0.4 Eos # (Auto) 0.0 Baso # (Auto) 0.0 Immature Gran # (Auto) 0.01 H Absolute Nucleated RBC 0.00 Immature Gran % 0 Nucleated RBC % 0 PT 17.7 H D INR 1.7 H APTT 35.5 D Sodium 137 Potassium 4.8 Chloride 98 Carbon Dioxide 26.4 Anion Gap 13 BUN 30 H Creatinine 2.4 H Estim Creat Clear Calc 22.0 L eGFR 24 L BUN/Creatinine Ratio 13 Glucose 146 H Calculated Osmolality 283 Calcium 10.1 Corrected Calcium 10.7 H Magnesium 2.5 Total Bilirubin 6.5 H AST 48 H ALT 18 Alkaline Phosphatase 106 Ammonia 153 H* Lactate Dehydrogenase 236 Troponin I 0.031 B-Natriuretic Peptide 71 Total Protein 7.1 Albumin 3.2 L Globulin 3.9 H Albumin/Globulin Ratio 0.8 L TSH Free T4 Ur Collection Type Clean Catch Urine Color Yellow Urine Clarity Clear Urine pH 5.5 Ur Specific [place] 1.016 Urine Protein Negative Urine Glucose (UA) Negative Urine Ketones Negative Urine Blood 1+ A Urine Nitrite Negative Urine Bilirubin Negative Urine Urobilinogen (Auto) Negative Ur Leukocyte Esterase Negative Urine RBC 18 H Urine WBC 5 Ur Squamous Epith Cells < 1 Urine Bacteria None Hyaline Casts < 1 Ur Culture Indicated? Not Indicated Urine Opiates Screen Positive A Urine Fentanyl Screen Negative Ur Barbiturates Screen Negative U Amphetamin/Meth Scrn Negative U Benzodiazepines Scrn Negative U Cocaine Metab Screen Negative U Marijuana (THC) Screen Negative Misc Test Result Platelets confirmed Blood Type O Positive Antibody Screen NEGATIVE Blood Bank Wristband ID Yes 11/14/24 05:23 WBC 3.8 RBC 2.90 L Hgb 10.3 L Hct 30.9 L MCV 107 H MCH 35.5 H MCHC 33.3 RDW Std Deviation 70.5 H Plt Count 30 L Neut % (Auto) 60 Lymph % (Auto) 29 Rock % (Auto) 8 Eos % (Auto) 2 Baso % (Auto) 1 Neut # (Auto) 2.3 Lymph # (Auto) 1.1 Rock # (Auto) 0.3 Eos # (Auto) 0.1 Baso # (Auto) 0.0 Immature Gran # (Auto) 0.01 H Absolute Nucleated RBC 0.00 Immature Gran % 0 Nucleated RBC % 0 PT INR APTT Sodium 140 Potassium 5.2 H Chloride 101 Carbon Dioxide 23.4 Anion Gap 16 BUN 29 H Creatinine 2.4 H Estim Creat Clear Calc 22.2 L eGFR 24 L BUN/Creatinine Ratio 12 Glucose 126 H Calculated Osmolality 287 Calcium 9.9 Corrected Calcium 10.8 H Magnesium 2.3 Total Bilirubin 6.7 H AST 45 H ALT 18 Alkaline Phosphatase 96 Ammonia Lactate Dehydrogenase Troponin I B-Natriuretic Peptide Total Protein 6.6 Albumin 2.9 L Globulin 3.7 H Albumin/Globulin Ratio 0.8 L TSH 0.45 L Free T4 0.92 Ur Collection Type Urine Color Urine Clarity Urine pH Ur Specific [place] Urine Protein Urine Glucose (UA) Urine Ketones Urine Blood Urine Nitrite Urine Bilirubin Urine Urobilinogen (Auto) Ur Leukocyte Esterase Urine RBC Urine WBC Ur Squamous Epith Cells Urine Bacteria Hyaline Casts Ur Culture Indicated? Urine Opiates Screen Urine Fentanyl Screen Ur Barbiturates Screen U Amphetamin/Meth Scrn U Benzodiazepines Scrn U Cocaine Metab Screen U Marijuana (THC) Screen Misc Test Result Platelets confirmed Blood Type Antibody Screen Blood Bank Wristband ID Quality Measures Quality Measures none Assessment & Plan Assessment Current Active Medications: Generic Name Dose Route Start Last Admin Trade Name Freq PRN Reason Stop Dose Admin Acetaminophen 650 mg 11/13/24 15:30 Acetaminophen 325 Mg Tablet PO 12/13/24 15:29 Q6H PRN PAIN 1-3 OR FEVER > 101 Hydrocodone Bitart/Acetaminophen 1 tab 09/30/25 15:30 11/14/24 09:04 Hydrocodone/Apap 5/325 Tablet PO 11/18/24 15:29 1 tab Q4HR PRN Administration Pain Scale 4-10 Cyanocobalamin 1,000 mcg 11/14/24 09:00 11/14/24 09:02 Cyanocobalamin 500 Mcg Tablet PO 12/14/24 08:59 1,000 mcg DAILY CELINA Administration Dextrose 25 ml 11/13/24 17:21 Dextrose 50%-Water Inj 50 Ml Syringe IV 12/13/24 17:20 Q15MIN PRN BG 50-70 responsive npo pt Dextrose 50 ml 11/13/24 17:21 Dextrose 50%-Water Inj 50 Ml Syringe IV 12/13/24 17:20 Q15MIN PRN BG <50 OR BG <70 & pt unresponsive Folic Acid 2.5 mg 11/14/24 09:00 11/14/24 09:24 Folic Acid 1 Mg Tablet PO 12/14/24 08:59 2.5 mg DAILY CELINA Administration Glucagon 1 mg 11/13/24 17:21 Glucagon Inj 1 Mg Vial IM Q15MIN PRN BG <70, and no IV access Lactated Ringer's 1,000 mls @ 75 mls/hr 11/13/24 15:00 11/14/24 05:32 Lactated Ringers IV 12/13/24 14:59 75 mls/hr .[id number] ECLINA Administration Octreotide Acetate 1,000 mcg/ 102 mls @ 5.1 mls/hr 11/14/24 11:15 Sodium Chloride IV 11/18/24 15:02 .Q20H CELINA Protocol 50 MCG/HR Ceftriaxone Sodium/Dextrose 1 gm in 50 mls @ 100 mls/hr 11/13/24 15:10 11/14/24 09:05 Rocephin/D5w 1gm Iv Premix IV 11/20/24 15:09 100 mls/hr QDAY CELINA Administration Octreotide Acetate 1,000 mcg/ 102 mls @ 5.1 mls/hr 11/13/24 15:15 11/13/24 16:20 Sodium Chloride IV 11/14/24 11:14 50 mcg/hr .Q20H ONE 5.1 mls/hr Protocol Administration 50 MCG/HR Albumin Human 50 gm in 200 mls @ 100 mls/hr 11/14/24 09:00 11/14/24 09:24 Albuminex 25% Ivpb IV 11/18/24 22:59 100 mls/hr BID CELINA Administration Insulin Human Lispro 0 unit 11/13/24 18:00 11/14/24 05:35 Insulin Lispro (Admelog) 1 Unit/0.01 Ml Unit SC 12/13/24 17:59 Not Given Q6HR [facility] Protocol Lactulose 20 gm 11/14/24 12:00 Lactulose Syrup 20 Gm/30 Ml Udc PO 12/14/24 11:59 QID [facility] Protocol Midodrine 5 mg 11/14/24 10:07 Midodrine 5 Mg Tablet PO 12/14/24 08:29 TID [facility] Pantoprazole Sodium 40 mg 11/13/24 21:00 11/14/24 09:02 Pantoprazole Inj 40 Mg Vial IVP 12/13/24 20:59 40 mg BID CELINA Administration Rifaximin 550 mg 11/13/24 21:00 11/14/24 09:04 Rifaximin 550 Mg Tablet PO 11/20/24 20:59 550 mg BID CELINA Administration
--- NOTE | 2024-11-14 11:22 | PD.NEPHCONS ---
History of Present Illness Data of Consult Consult date: 11/14/24 Requesting Physician: Stephen Ahuja MD Primary Care Provider: Physician No Primary/Family Consult Narrative Reason for consult: LILY, liver cirrhosis History of present illness: Mother is informant Ms. Knight is a 54-year-old lady who has extensive history of liver cirrhosis secondary to alcoholism (under liver transplant team) recurrent admissions for hepatic encephalopathy, upper GI bleed due to varices/banding, chronic pain syndrome, DM presented to the emergency department with 2 episodes of hematemesis going on for the last few days associated with altered mental status generalized pain weakness and poor p.o. intake. Denies any fever or chills. In the ED patient was noted to be hypotensive. She was given gentle IV fluids, albumin started on home midodrine and lactulose. Admitted to telemetry. Nephrology consultation requested in view of LILY. Patient well-known to me from previous admissions. Home medications included vitamin D, furosemide, Rarden, last close, metformin, methocarbamol, midodrine, Remeron, Protonix, rifaximin, spironolactone. Labs showed hemoglobin 10.3, platelets 30. Sodium 140, potassium 4.5, BUN 29, creatinine 2.4 of note 10/16/2023 her creatinine is 1.0., Calcium 10.8, magnesium 2.3, total bilirubin 6.7, AST 45, ALT 18, alk phos 96, albumin 2.9, urinalysis shows 2+ blood with 20 RBCs. cc:: cc: Stephen Ahuja MD Review of Systems Review of Systems Narrative Review of Systems: Patient denies any fever or chills. Does have significant weakness. More alert and awake. Complaining of abdominal comfort and back pain. Did have hematemesis. Past Medical History Past Medical History NEUROLOGIC: Positive Neurological Disorders, Migraine and Spinal Cord Injury; Negative Seizures CARDIAC: Positive Hypotension; Negative Cardiac Disorders or Congestive Heart Failure RESPIRATORY: Negative Chronic Obstructive Pulmonary Disease (COPD) or Asthma GASTROINTESTINAL: Positive Gastrointestinal Disorders, Cirrhosis, Gastrointestinal Bleed, Esophageal Varices and Hemorrhoids GENITOURINARY: Positive Renal Disease REPRODUCTIVE: Positive Endometriosis and Previous Pregnancies MUSCULOSKELETAL: Positive Musculoskeletal Disorders ENDOCRINE: Positive Endocrine Disorders and Diabetes Mellitus Type 2; Negative Diabetes Mellitus Type 1 HEMATOLOGIC: Positive Blood Disorders and Anemia; Negative Sickle Cell Disease PSYCHO/SOCIAL: Positive Depression and Anxiety OTHER HISTORY: Positive Chicken Pox and Measles; Negative Autoimmune Disease, Blood Transfusions, Blood Transfusion Reaction, Anesthesia Reactions or Cancer Family History FAMILY HISTORY: Positive Family Psychiatric Problems and Family Cancer; Negative Family Respiratory Disorders, Family Cardiac Disorders, Family Gastrointestinal Problems, Family Surgery or Family Anesthesia Reaction Surgical History SURGICAL: Positive Abdominal Surgery and Section (X2) OTHER SURGICAL HX: As in the history of present illness Social History SMOKING STATUS: Unknown if ever smoked SECOND HAND EXPOSURE: No SUBSTANCE USE: marijuana Meds Home Medications and Allergies Home Medications ?Medication ?Instructions ?Recorded ?Confirmed ?Type spironolactone 50 mg tablet 50 mg PO DAILY 10/11/24 11/14/24 History lactulose 10 gram/15 mL oral 10 g PO TID 11/14/24 11/14/24 History solution metformin 1,000 mg tablet 1,000 mg PO QDAY 11/14/24 11/14/24 History midodrine 10 mg tablet 10 mg PO Q8H 11/14/24 11/14/24 History Allergies Allergy/AdvReac Type Severity Reaction Status Date / Time latex Allergy Severe Hives Verified 10/22/24 09:29 Exam Vital Signs Temp Pulse Resp BP Pulse Ox O2 Del Method 36.2 C 85 17 110/65 96 Room Air 11/14/24 08:00 11/14/24 09:03 11/14/24 08:00 11/14/24 09:03 11/14/24 08:00 11/14/24 08:00 Narrative Exam GENERAL APPEARANCE: Patient currently seen in telemetry. Sick looking. Looks older than her stated age. Scleral icterus noted NECK: Neck supple, no JVD or bruit CARDIOVASCULAR: Heart regular, no murmurs LUNGS/CHEST: Chest clear to auscultation. No rales, rhonchi, wheezing ABDOMEN: Soft, nontender, nondistended. No masses. Normal bowel sounds. Ascites noted EXTREMITIES: No edema, clubbing or cyanosis. SKIN: Skin exam normal without any rashes. Patient has jaundice MUSCULOSKELETAL: In bed NEUROLOGICAL : Mild asterixis noted. Seems to be slow in response Results Labs 11/14/24 05:23 11/14/24 11:00 Labs: Short CBC 11/13/24 11/14/24 Range/Units 12:05 05:23 WBC 4.5 3.8 (3.6-11.0) Thou/mm3 Hgb 10.6 L 10.3 L (12.0-16.0) g/dL Hct 31.0 L 30.9 L (36.0-46.0) % Plt Count 32 L 30 L (140-440) Thou/mm3 BMP 11/13/24 11/14/24 12:05 05:23 Sodium 137 140 Potassium 4.8 5.2 H Chloride 98 101 Carbon Dioxide 26.4 23.4 BUN 30 H 29 H Creatinine 2.4 H 2.4 H Glucose 146 H 126 H Calcium 10.1 9.9 Cardiac Enzymes 11/13/24 Range/Units 12:05 Troponin I 0.031 (0.0-0.045) ng/mL Liver Function 11/13/24 11/14/24 Range/Units 12:05 05:23 Total Bilirubin 6.5 H 6.7 H (0.3-1.2) mg/dL AST 48 H 45 H (0-34) U/L ALT 18 18 (10-49) U/L Alkaline Phosphatase 106 96 (46-116) U/L Albumin 3.2 L 2.9 L (3.5-5.0) gm/dL Urine 11/13/24 Range/Units 12:54 Urine Color Yellow (Lt Yel-Yel) Urine Clarity Clear (Clear/Hazy) Urine pH 5.5 (5.0-7.0) Ur Specific Shell 1.016 (1.001-1.035) Urine Protein Negative (Neg - Trace) Urine Glucose (UA) Negative (Negative) Assessment & Plan Additional Assessment & Plan Additional Plan: 53-year-old female with known history of liver cirrhosis, history of variceal bleeds s/p banding with recurrent admissions for hepatic encephalopathy was admitted for acute encephalopathy, likely secondary to hepatic encephalopathy. Patient was started on lactulose and rifaximin ,,IV fluids, albumin LILY most likely related to prerenal azotemia. Will continue with albumin, IV fluids. Patient has decreased p.o. intake in the last couple of weeks. #Acute metabolic encephalopathy #Hepatic encephalopathy In the setting of underlying cirrhosis Continue with lactulose, rifaximin #Decompensated cirrhosis, with sequela #Thrombocytopenia #Coagulopathy #Hyperbilirubinemia Child-[place] class C 13 points MELD sodium 22 points with 19.6% 3-month mortality Continue NG tube with lactulose, rifaximin, albumin midodrine Outpatient hepatology follow up for liver transplant evaluation #Macrocytic anemia Chronic, stable Likely from history of alcohol abuse Thank you Stephen for allowing me to participate in the care of Ms. Knight
[2024-11-14 11:53] LABS: Collection Type, Urine Catheter
[2024-11-14 12:02] LABS: Bilirubin,Urine Negative (Negative); Blood,Urine 2+ (Negative); Clarity,Urine Clear (Clear/Hazy); Color,Urine Yellow (Lt Yel-Yel); Glucose, Urine Negative (Negative); Ketones,Urine Trace (Negative); Leukocyte Esterase,Urine Positive (Negative); Nitrite,Urine Negative (Negative); PH,Urine 5.5 (5.0-7.0); Protein,Urine Negative (Neg - Trace); RBC,Urine 20 /hpf (0-3); Specific Gravity,Urine 1.022 (1.001-1.035); Squamous Epithelial Cell,Urine 1 /hpf (0-5); Urobilinogen,Urine Negative mg/dL (0.0-1.0); WBC,Urine 28 /hpf (0-5)
[2024-11-14] MEDS: OCTREOTIDE ACET INJ 1,000 MCG in SODIUM CHLORIDE 0.9% 100 ML 5.1 MCG IV (12:08)
[2024-11-14] MEDS: LACTULOSE SYRUP 20 GM/30 ML UDC PO ×3 (12:09→20:21)
[2024-11-14 12:39] LABS: Potassium 4.5 mMol/L (3.4-5.1)
--- NOTE | 2024-11-14 13:16 | ESPR_ITS ---
<Statement entered by Zach Plata MD - 11/14/24 17:48> Patient was seen and evaluated at bedside this morning. No acute overnight events. Patient was doing a lot better this morning was evaluated x 3 and passed another swallow screen. It was noted that patient did have some urine retention therefore Liz was placed to accurately measure patient's urine output. Patient's FOBT still pending. Was started on albumin and midodrine for possible hepatorenal syndrome given the patient's creatinine has not improved at all and is stable at 2.4. Nephrology was also consulted and will follow. Switch lactulose to 20 4 times daily p.o. Will hold off on IV pain medications to ensure patient's mental status continues to improve. Note reviewed and agree with resident's care plan documented except as noted above. Case disclosed with Attending Dr. Seymour Plata PGY2 Disclaimer: Even though this this note was dictated by speech recognition and even though it was carefully revised there may still be minor errors in head of acquisitions due to voice recognition software. Documentation for date of: 11/14/24 Subjective Subjective Interval history: Overnight, patient complained of generalized body pain IV Dilaudid 0.25 mg x 1 given. Patient also failed bedside swallow test and lactulose was given HI. Patient was also found to be retaining urine with 500 cc left and bladder and patient was straight cathed. Patient seen and examined at bedside with mother in the room. Telemetry reviewed no arrhythmias noted. Patient is alert and oriented x 3 this morning, complains of generalized body pain, abdominal pain and back pain. Endorses some nausea but no vomiting. Spoke with mother at bedside who reported no further episodes hematemesis. Denies fever, chest pain or shortness of breath at this time. BP 110/70s, heart rate averaging 70 to 80s saturating well on room air. Hemoglobin stable low at 10.3, PT continues to be elevated at 17.7, INR still elevated 1.7. A.m. K5.2, repeat 4.5. BUN stable elevated at 29, creatinine continues to be elevated at 2.41 baseline is 0.9-1. T. bili slowly uptrending from 6.5-6.7. TSH came back low 0.45 but normal T4 0.92. Patient passed bedside swallow exam this morning, PO lactulose 20 g QID restarted, continue rifamixin 550 mg BID, and started albumin 50 g BID. Continue octreotide drip and IV pantoprazole BID, discontinue ceftriaxone for SBP prophylaxis as low suspicion of current active esophageal bleed. Discontinue IV fluids iso cirrhosis. Consider hepatorenal versus prerenal etiology for LILY. Nephrology consulted, midodrine 5 mg TID started. Liz catheter inserted today. Exam Vital Signs Temp Pulse Resp BP Pulse Ox O2 Del Method 97.2 F 82 22 H 120/66 94 L Room Air 11/14/24 12:00 11/14/24 12:00 11/14/24 12:00 11/14/24 12:00 11/14/24 12:00 11/14/24 12:00 Narrative Exam GENERAL: AOx3, no acute distress, lying down flat in bed HEENT: NC/AT, mucous membranes moist, bilateral sclera icteric CARDIOVASCULAR: regular rate and rhythm, S1/S2 present, 3/6 systolic murmur heard best at left 2nd intercostal space PULMONARY: clear to auscultation bilaterally, no rales/rhonchi/wheezes ABDOMINAL: soft, slightly distended, mild diffuse tenderness to palpation, no fluid wave appreciated, no rebound/guarding, bowel sounds present EXTREMITIES: no peripheral edema SKIN: warm and dry, intact, no rashes NEURO: CN II-XII grossly intact, no focal deficits, alert, following commands, + asterixis Objective Labs 11/15/24 04:28 11/15/24 04:28 Labs: Laboratory Results - last 24 hr 11/13/24 11/13/24 11/14/24 12:54 12:55 05:23 WBC 3.8 RBC 2.90 L Hgb 10.3 L Hct 30.9 L MCV 107 H MCH 35.5 H MCHC 33.3 RDW Std Deviation 70.5 H Plt Count 30 L Neut % (Auto) 60 Lymph % (Auto) 29 Lee % (Auto) 8 Eos % (Auto) 2 Baso % (Auto) 1 Neut # (Auto) 2.3 Lymph # (Auto) 1.1 Lee # (Auto) 0.3 Eos # (Auto) 0.1 Baso # (Auto) 0.0 Immature Gran # (Auto) 0.01 H Absolute Nucleated RBC 0.00 Immature Gran % 0 Nucleated RBC % 0 Sodium 140 Potassium 5.2 H Chloride 101 Carbon Dioxide 23.4 Anion Gap 16 BUN 29 H Creatinine 2.4 H Estim Creat Clear Calc 22.2 L eGFR 24 L BUN/Creatinine Ratio 12 Glucose 126 H Calculated Osmolality 287 Calcium 9.9 Corrected Calcium 10.8 H Magnesium 2.3 Total Bilirubin 6.7 H AST 45 H ALT 18 Alkaline Phosphatase 96 Total Protein 6.6 Albumin 2.9 L Globulin 3.7 H Albumin/Globulin Ratio 0.8 L TSH 0.45 L Free T4 0.92 Ur Collection Type Clean Catch Urine Color Yellow Urine Clarity Clear Urine pH 5.5 Ur Specific [place] 1.016 Urine Protein Negative Urine Glucose (UA) Negative Urine Ketones Negative Urine Blood 1+ A Urine Nitrite Negative Urine Bilirubin Negative Urine Urobilinogen (Auto) Negative Ur Leukocyte Esterase Negative Urine RBC 18 H Urine WBC 5 Ur Squamous Epith Cells < 1 Urine Bacteria None Hyaline Casts < 1 Ur Culture Indicated? Not Indicated Urine Opiates Screen Positive A Urine Fentanyl Screen Negative Ur Barbiturates Screen Negative U Amphetamin/Meth Scrn Negative U Benzodiazepines Scrn Negative U Cocaine Metab Screen Negative U Marijuana (THC) Screen Negative Misc Test Result Platelets confirmed 11/14/24 11/14/24 11:00 11:10 WBC RBC Hgb Hct MCV MCH MCHC RDW Std Deviation Plt Count Neut % (Auto) Lymph % (Auto) [place] % (Auto) Eos % (Auto) Baso % (Auto) Neut # (Auto) Lymph # (Auto) Lee # (Auto) Eos # (Auto) Baso # (Auto) Immature Gran # (Auto) Absolute Nucleated RBC Immature Gran % Nucleated RBC % Sodium Potassium 4.5 D Chloride Carbon Dioxide Anion Gap BUN Creatinine Estim Creat Clear Calc eGFR BUN/Creatinine Ratio Glucose Calculated Osmolality Calcium Corrected Calcium Magnesium Total Bilirubin AST ALT Alkaline Phosphatase Total Protein Albumin Globulin Albumin/Globulin Ratio TSH Free T4 Ur Collection Type Catheter Urine Color Yellow Urine Clarity Clear Urine pH 5.5 Ur Specific [place] 1.022 Urine Protein Negative Urine Glucose (UA) Negative Urine Ketones Trace Urine Blood 2+ A Urine Nitrite Negative Urine Bilirubin Negative Urine Urobilinogen (Auto) Negative Ur Leukocyte Esterase Positive Urine RBC 20 H Urine WBC 28 H Ur Squamous Epith Cells 1 Urine Bacteria None Hyaline Casts Ur Culture Indicated? Urine Opiates Screen Urine Fentanyl Screen Ur Barbiturates Screen U Amphetamin/Meth Scrn U Benzodiazepines Scrn U Cocaine Metab Screen U Marijuana (THC) Screen Misc Test Result Quality Measures Quality Measures none Assessment & Plan Assessment Current Active Medications: Generic Name Dose Route Start Last Admin Trade Name Freq PRN Reason Stop Dose Admin Acetaminophen 650 mg 11/13/24 15:30 Acetaminophen 325 Mg Tablet PO 12/13/24 15:29 Q6H PRN PAIN 1-3 OR FEVER > 101 Hydrocodone Bitart/Acetaminophen 1 tab 11/13/24 15:30 11/14/24 09:04 Hydrocodone/Apap 5/325 Tablet PO 11/18/24 15:29 1 tab Q4HR PRN Administration Pain Scale 4-10 Cyanocobalamin 1,000 mcg 11/14/24 09:00 11/14/24 09:02 Cyanocobalamin 500 Mcg Tablet PO 12/14/24 08:59 1,000 mcg DAILY CELINA Administration Dextrose 25 ml 11/13/24 17:21 Dextrose 50%-Water Inj 50 Ml Syringe IV 12/13/24 17:20 Q15MIN PRN BG 50-70 responsive npo pt Dextrose 50 ml 11/13/24 17:21 Dextrose 50%-Water Inj 50 Ml Syringe IV 12/13/24 17:20 Q15MIN PRN BG <50 OR BG <70 & pt unresponsive Folic Acid 2.5 mg 11/14/24 09:00 11/14/24 09:24 Folic Acid 1 Mg Tablet PO 12/14/24 08:59 2.5 mg DAILY CELINA Administration Glucagon 1 mg 11/13/24 17:21 Glucagon Inj 1 Mg Vial IM Q15MIN PRN BG <70, and no IV access Lactated Ringer's 1,000 mls @ 75 mls/hr 11/13/24 15:00 11/14/24 05:32 Lactated Ringers IV 12/13/24 14:59 75 mls/hr .[id number] CELINA Administration Octreotide Acetate 1,000 mcg/ 102 mls @ 5.1 mls/hr 11/14/24 11:15 11/14/24 12:08 Sodium Chloride IV 11/18/24 15:02 50 mcg/hr .Q20H CELINA 5.1 mls/hr Protocol Administration 50 MCG/HR Ceftriaxone Sodium/Dextrose 1 gm in 50 mls @ 100 mls/hr 11/13/24 15:10 11/14/24 09:05 Rocephin/D5w 1gm Iv Premix IV 11/20/24 15:09 100 mls/hr QDAY CELINA Administration Albumin Human 50 gm in 200 mls @ 100 mls/hr 11/14/24 09:00 11/14/24 09:24 Albuminex 25% Ivpb IV 11/18/24 22:59 100 mls/hr BID CELINA Administration Insulin Human Lispro 0 unit 11/13/24 18:00 11/14/24 12:09 Insulin Lispro (Admelog) 1 Unit/0.01 Ml Unit SC 12/13/24 17:59 Not Given Q6HR CELINA Protocol Lactulose 20 gm 11/14/24 12:00 11/14/24 12:09 Lactulose Syrup 20 Gm/30 Ml Udc PO 12/14/24 11:59 20 gm QID CELINA Administration Protocol Midodrine 5 mg 11/14/24 10:07 Midodrine 5 Mg Tablet PO 12/14/24 08:29 TID CELINA Pantoprazole Sodium 40 mg 11/13/24 21:00 11/14/24 09:02 Pantoprazole Inj 40 Mg Vial IVP 12/13/24 20:59 40 mg BID CELINA Administration Rifaximin 550 mg 11/13/24 21:00 11/14/24 09:04 Rifaximin 550 Mg Tablet PO 11/20/24 20:59 550 mg BID CELINA Administration Plan Elzbieta Knight is a 54F pmhx of significant for decompensated alcoholic cirrhosis, multiple admissions for hepatic encephalopathy, hx of prior variceal bleeding s/p banding, chronic pain, NIDDM2 presented to [facility] 11/13 for altered mental status, weakness and 2 episodes of hematemesis admitted for hepatic encephalopathy likely secondary to decompensated alcoholic cirrhosis, found to have LILY. #Hepatic encephalopathy 2/ #Decompensated cirrhosis, likely alcoholic #Hyperammonemia #Hypoalbuminemia #Thrombocytopenia #Coagulopathy Patient presented with altered mental status for the past 2 days with generalized weakness with severe asterixis. Patient has been seen multiple times at [facility] for hepatic encephalopathy. On admission, ammonia level elevated at 153, BUN 30, creatinine 2.4, troponin 0.031, platelet 32, PT 17.7, INR 1.7. EKG NSR rate 81 and CXR showed poor inspiratory effort. UDS only positive for opiates. Patient is currently starting transplant process with appointments. Although patient reports being adherent to medication, patient continues to present with decompensated cirrhosis and hepatic encephalopathy. Likely that medication outpatient is not adequately decreasing ammonia levels and may need to be increased. Noted that patient is on Rifaximin 550 mg twice daily however it has not filled since 10/01/2024. Hypoalbuminemia, thrombocytopenia, coagulopathy likely secondary to cirrhosis. MELD 3.0: 31, 68.3% 90 day survival. Maddreys: 32.7, poor prognosis Plan: - Rifamixin 550 mg BID and lactulose 20 g QID per GI recs - GI consulted recs appreciated - Start albumin 50 g BID - CTM mental status and repeat ammonia levels if patient continues to be altered - Avoid diuretics such as spironolactone and Lasix as patient has LILY #LILY, hepatorenal vs prerenal #Pyuria #Hx of VRE UTI Patient presented with creatinine of 2.4 and BUN of 30, baseline creatinine 0.9- 1. Admission UA showed 1+ blood, 18 RBC and 5 WBC. Patient has presented with history of increased creatinine on chart review and at the time was diagnosed with LILY Ddx includes prerenal LILY secondary to dehydration with nausea vomiting and lactulose, hepatorenal isohepatic encephalopathy, UTI as patient repeat UA 2+ blood, +LE and 28 WBC Plan: - Octreotide drip (11/13 - - Start midodrine 5 mg TID iso suspicion of hepatorenal syndrome - F/u UCx - Strict Is/Os, daily weights - Avoid nephrotoxic medications and renally dose - Discontinue IVF iso cirrhosis as well as suspicion of hepatorenal syndrome - Avoid diuretics such as spironolactone and Lasix as patient has LILY - If creatinine continues to uptrend, consider urine electrolytes #Hematemesis #Hx of Grade III esophageal varicies s/p banding 06/13/24 Patient's mother at bedside reports 2 episodes of hematemesis. Prior to admission about a spoonful of bright red blood and first episode a week before admission with about 2-3 spoonfuls of blood. Patient does have a history of grade 3 esophageal varices which were banded, however hemoglobin currently stable in the 10s, which is increased from previous admission in September where hemoglobin was 8-9 and patient has not had any further hematemesis, melena or hematochezia at this time. Ceftriaxone (11/13-11/14) Plan: - Continue IV pantoprazole 40 mg BID - F/u FOBT - Discontinue ceftriaxone with low suspicion of esophageal bleeds - GI consulted, appreciate recs: no plans for inpatient EGD at this time #Urinary retention Night of admission, patient developed urinary retention with bladder scan showing 500 cc of retained urine. DDx includes urinary tract infection, encephalopathy vs home methocarbamol s/e profile Plan: - Liz catheter inserted 11/14 #Chronic pain Reports chronic pain since back injury years ago, currently has been taking [place] TID for at least a month. Pain on admission is generalized with tenderness to palpation over the entire body which has improved as mental status improves. Plan: - Pain scale regimen #NIDDM2 Last A1c 6.0 09/2024. On metformin 1g QD at home. Plan: -[facility] management: Lines: PIV Diet: CLD advance as tolerated Bowel: lactulose 20 mg QID GI prophylaxis: IV pantoprazole 40 mg BID DVT prophylaxis: SCDs, heparin held iso possible GIB Disposition: tele for hepatic encephalopathy on lactulose and rifamixin, LILY CODE STATUS: Full code Plan of care discussed with attending Dr. Ahuja, and PGY-2 Dr. Randal Plata. Ekaterina Quintero, DO PGY-1 Internal Medicine Attending Provider Attestation/Addendum I have examined the patient, reviewed labs and imaging findings, discussed the case with the resident(s), and reviewed entered orders. I agree with the plan of care as outlined in this note. Dr. Seymour MD
--- NOTE | 2024-11-14 15:16 | PC.SS ---
SS met with patient and mother at bedside. Patient is alert/oriented. Patient resides with her mother and her son. Patient's mother states she needs assistance with all ADL's. Patient is open to [facility] for PT and nursing. Patient has a wheelchair and a walker at home. Patient states she has not drank alcohol since she was diagnosed with Cirrhosis. Patient has hx: depression. PCP: [facility]. Pharmacy: [facility]. Transportation: Mother provides transportation. Alt medical decision maker: Mother, Bridgett Knight,
[2024-11-14] MEDS: INSULIN LISPRO (AdmeLOG) 1 UNIT/0.01 ML UNIT SC ×2 (17:46→23:46)
--- NOTE | 2024-11-14 22:14 | PD.IMPROG ---
Documentation for date of: 11/14/24 Subjective Subjective Interval history: Patient more alert and oriented Hemoglobin hematocrit around 10.3 and 30 Patient has a previous history of aggressive band ligation of the esophageal varices for multiple episodes of GI bleeding as well as banding of the internal hemorrhoids Informed consent obtained for upper endoscopy for tomorrow evening for further band ligation of the esophageal varices Exam Vital Signs Temp Pulse Resp BP Pulse Ox O2 Del Method 96.9 F 73 12 113/61 96 Room Air 11/14/24 20:00 11/14/24 21:45 11/14/24 20:00 11/14/24 21:45 11/14/24 20:00 11/14/24 20:00 Objective Labs 11/14/24 05:23 11/14/24 11:00 Labs: Laboratory Results - last 24 hr 11/14/24 11/14/24 11/14/24 05:23 11:00 11:10 WBC 3.8 RBC 2.90 L Hgb 10.3 L Hct 30.9 L MCV 107 H MCH 35.5 H MCHC 33.3 RDW Std Deviation 70.5 H Plt Count 30 L Neut % (Auto) 60 Lymph % (Auto) 29 [place] % (Auto) 8 Eos % (Auto) 2 Baso % (Auto) 1 Neut # (Auto) 2.3 Lymph # (Auto) 1.1 [place] # (Auto) 0.3 Eos # (Auto) 0.1 Baso # (Auto) 0.0 Immature Gran # (Auto) 0.01 H Absolute Nucleated RBC 0.00 Immature Gran % 0 Nucleated RBC % 0 Sodium 140 Potassium 5.2 H 4.5 D Chloride 101 Carbon Dioxide 23.4 Anion Gap 16 BUN 29 H Creatinine 2.4 H Estim Creat Clear Calc 22.2 L eGFR 24 L BUN/Creatinine Ratio 12 Glucose 126 H Calculated Osmolality 287 Calcium 9.9 Corrected Calcium 10.8 H Magnesium 2.3 Total Bilirubin 6.7 H AST 45 H ALT 18 Alkaline Phosphatase 96 Total Protein 6.6 Albumin 2.9 L Globulin 3.7 H Albumin/Globulin Ratio 0.8 L TSH 0.45 L Free T4 0.92 Ur Collection Type Catheter Urine Color Yellow Urine Clarity Clear Urine pH 5.5 Ur Specific [place] 1.022 Urine Protein Negative Urine Glucose (UA) Negative Urine Ketones Trace Urine Blood 2+ A Urine Nitrite Negative Urine Bilirubin Negative Urine Urobilinogen (Auto) Negative Ur Leukocyte Esterase Positive Urine RBC 20 H Urine WBC 28 H Ur Squamous Epith Cells 1 Urine Bacteria None Misc Test Result Platelets confirmed Impressions Impression: Hepatic encephalopathy Improving GI bleed stable with previous history of esophageal variceal band ligation Plan Clear liquid diet till 11:00 tomorrow morning then n.p.o. Consent obtained for fiberoptic esophagogastroduodenoscopy with possible band ligation of the esophageal varices scheduled for tomorrow evening Assessment & Plan A&P Narrative # Hepatic encephalopathy Lactulose 20 g 4 times daily I do not think patient can drink it Recommend small NGT like 4 [place] and give the lactulose via NGT Xifaxan 550 mg Twice daily Will follow the patient Other medical problems include chronic liver disease advanced portal hypertension ascites and hepatic encephalopathy with history of GI bleed requiring palliation of the esophageal varices as well as internal hemorrhoids Will follow the patient Thank you very much for the opportunity to participate in the care of this patient Time Spent With Patient Time: Total time spent is greater than 50% in coordination of care (as documented) at patient's floor/unit and/or counseling patient:
[2024-11-15] VITALS (16 sets, daily range): BP systolic 98–140; BP diastolic 59–86; PULSE 69–98; RESP 14–19; TEMP 36.1–36.7; O2SAT 93–100; BMI 31.4
[2024-11-15] MEDS: LACTULOSE SYRUP 20 GM/30 ML UDC PO ×3 (05:22→20:26)
[2024-11-15] MEDS: HYDROcodone/APAP 5/325 TABLET 1 TAB PO ×2 (05:23→09:49)
[2024-11-15] MEDS: MIDODRINE 5 MG TABLET PO ×3 (05:23→21:20)
[2024-11-15 05:33] LABS: Basophils # (Auto) 0.0 Thou/mm3 (0.0-0.2); Basophils % (Auto) 1 % (0-2.5); Eosinophils # (Auto) 0.1 Thou/mm3 (0.0-0.5); Eosinophils % (Auto) 5 % (0-10); Hematocrit 22.5 % (36.0-46.0); Immature Granulocytes Auto 0.01 Thou/mm3 (0.00-0.00); Lymphocytes # (Auto) 0.6 Thou/mm3 (1.0-4.8); Lymphocytes % (Auto) 35 % (10-50); Mean Corpuscular HGB Conc 33.8 g/dl (31.0-37.0); Mean Corpuscular Hemoglobin 36.2 pg (25.0-35.0); Mean Corpuscular Volume 107 fL (80-100); Monocytes # (Auto) 0.2 Thou/mm3 (0.0-0.8); Monocytes % (Auto) 11 % (0-12); Neutrophils # (Auto) 0.9 Thou/mm3 (1.8-7.7); Neutrophils % (Auto) 49 % (37-80); Nucleated Red Blood Cell # 0.00 Thou/mm3 (0.00-0.00); Nucleated Red Blood Cell % 0 /100 WBC (0); RDW Standard Deviation 69.5 fL (36.4-46.3); Red Blood Count 2.10 Miln/mm3 (4.00-5.20); White Blood Count 1.8 Thou/mm3 (3.6-11.0)
[2024-11-15 05:45] LABS: Hemoglobin 7.6 g/dL (12.0-16.0)
[2024-11-15 05:46] LABS: Platelet Count 20 Thou/mm3 (140-440)
--- NOTE | 2024-11-15 06:16 | PC.NURSE ---
Dr. Mccoy made aware of critical lab value of platelet at 20 by RN. Will continue with plan of care.
[2024-11-15 06:18] LABS: Path Review Blood Smear Sent to Pathologist; Slide Review Platelets confirmed
[2024-11-15 06:28] LABS: Alanine Aminotransferase 10 U/L (10-49); Albumin, Serum 3.8 gm/dL (3.5-5.0); Albumin/Globulin Ratio 1.6 (1.2-2.2); Alkaline Phosphatase 58 U/L (46-116); Anion Gap 15 (7-16); Aspartate Amino Transferase 27 U/L (0-34); BUN/Creatinine Ratio 11 Ratio (12-20); Bilirubin,Total 6.0 mg/dL (0.3-1.2); Blood Urea Nitrogen 23 mg/dL (9-23); Calcium 9.4 mg/dL (8.3-10.6); Calcium (Corrected) 9.6 mg/dL (8.5-10.1); Carbon Dioxide 24.5 mMol/L (20.0-31.0); Chloride 106 mMol/L (98-107); Creatinine (Component) 2.1 mg/dL (0.6-1.3); Estimated Creatinine Clearance 26.5 mL/min (>60); Globulin 2.4 gm/dL (2.3-3.5); Glucose 150 mg/dL (74-106); Magnesium 1.9 mg/dL (1.6-2.6); Osmolality,Calculated 295 (275-295); Potassium 3.8 mMol/L (3.4-5.1); Sodium 145 mMol/L (136-145); Total Protein 6.2 gm/dL (5.7-8.2); eGFR 28 See Note
[2024-11-15] MEDS: OCTREOTIDE ACET INJ 1,000 MCG in SODIUM CHLORIDE 0.9% 100 ML 5.1 MCG IV (07:44)
--- NOTE | 2024-11-15 09:03 | ESPR_ITS ---
<Statement entered by Zach Plata MD - 11/15/24 14:24> Patient was seen and evaluated at bedside this morning. No acute overnight events. Patient's FOBT was positive therefore GI will proceed with EGD today. Patient's hemoglobin remains around 7.6, but platelets dropped to 20. At this time we will continue to monitor platelets. Kidney function did improve slightly. Given patient has generalized pain increase Eglon dosage to 7.5. Given that this time patient did not have a paracentesis done did a bedside ultrasound and did not show any good pockets to perform paracentesis at this time. Will continue with Rocephin for SBP prophylaxis as well as UTI. Pending EGD and further GI recs. Note reviewed and agree with resident's care plan as documented except as noted above. Case disclosed with attending Dr. Seymour Plata PGY2 Disclaimer: Even though this this note was dictated by speech recognition and even though it was carefully revised there may still be minor errors in religious education director due to voice recognition software. Documentation for date of: 11/15/24 Subjective Subjective Interval history: Patient seen and examined at bedside. Telemetry reviewed, no arrhythmias noted. Patient complains of abdominal pain, worse on palpation as well as diffuse body pain also tender to palpation. Endorses lower back pain that radiates up to her head. States that she feels confused sometimes when the nurses move to clean her. BP 100 120 over 60s on midodrine 5 mg 3 times daily. Heart rate 70-80. WBC decreased from 3.8->1.8. Hemoglobin decreased from 10.3->7.6. Platelets 30- >20. Potassium 3.8, 20 mEq repleted. BUN decreasing from 29-21. Creatinine decreasing from 2.4 to 2.1. Magnesium 1.9 repleted 2 g IV. T. bili 6.7 to 6.0. AST ALT improving from 45/18 to 27/10. Urine culture still pending. Continue rifamixin, lactulose, midodrine and albumin. Restarted ceftriaxone 1 g daily for SBP prophylaxis as well as possible UTI. Exam Vital Signs Temp Pulse Resp BP Pulse Ox O2 Del Method 97.0 F 80 18 112/62 97 Room Air 11/15/24 04:00 11/15/24 05:23 11/15/24 04:00 11/15/24 05:23 11/15/24 04:00 11/15/24 04:00 Narrative Exam GENERAL: AOx3, no acute distress, lying down flat in bed HEENT: NC/AT, mucous membranes moist, bilateral sclera icteric CARDIOVASCULAR: regular rate and rhythm, S1/S2 present, 3/6 systolic murmur heard best at left 2nd intercostal space PULMONARY: clear to auscultation bilaterally, no rales/rhonchi/wheezes ABDOMINAL: soft, slightly distended, mild diffuse tenderness to palpation, no fluid wave appreciated, no rebound/guarding, bowel sounds present EXTREMITIES: no peripheral edema SKIN: warm and dry, intact, no rashes NEURO: CN II-XII grossly intact, no focal deficits, alert, following commands, + asterixis Objective Labs 11/15/24 04:28 11/15/24 04:28 Labs: Laboratory Results - last 24 hr 11/14/24 11/14/24 11/15/24 11:00 11:10 04:28 WBC 1.8 L D RBC 2.10 L Hgb 7.6 L D Hct 22.5 L MCV 107 H MCH 36.2 H MCHC 33.8 RDW Std Deviation 69.5 H Plt Count 20 L* D Neut % (Auto) 49 Lymph % (Auto) 35 [place] % (Auto) 11 Eos % (Auto) 5 Baso % (Auto) 1 Neut # (Auto) 0.9 L Lymph # (Auto) 0.6 L [place] # (Auto) 0.2 Eos # (Auto) 0.1 Baso # (Auto) 0.0 Immature Gran # (Auto) 0.01 H Absolute Nucleated RBC 0.00 Immature Gran % 1 H Nucleated RBC % 0 Smear Path Review Sent to Pathologist Sodium 145 Potassium 4.5 D 3.8 D Chloride 106 Carbon Dioxide 24.5 Anion Gap 15 BUN 23 Creatinine 2.1 H Estim Creat Clear Calc 26.5 L eGFR 28 L BUN/Creatinine Ratio 11 L Glucose 150 H Calculated Osmolality 295 Calcium 9.4 Corrected Calcium 9.6 Magnesium 1.9 Total Bilirubin 6.0 H D AST 27 ALT 10 Alkaline Phosphatase 58 D Total Protein 6.2 Albumin 3.8 D Globulin 2.4 Albumin/Globulin Ratio 1.6 Ur Collection Type Catheter Urine Color Yellow Urine Clarity Clear Urine pH 5.5 Ur Specific [place] 1.022 Urine Protein Negative Urine Glucose (UA) Negative Urine Ketones Trace Urine Blood 2+ A Urine Nitrite Negative Urine Bilirubin Negative Urine Urobilinogen (Auto) Negative Ur Leukocyte Esterase Positive Urine RBC 20 H Urine WBC 28 H Ur Squamous Epith Cells 1 Urine Bacteria None Misc Test Result Platelets confirmed Quality Measures Quality Measures none Assessment & Plan Assessment Current Active Medications: Generic Name Dose Route Start Last Admin Trade Name [place] PRN Reason Stop Dose Admin Acetaminophen 650 mg 11/13/24 15:30 Acetaminophen 325 Mg Tablet PO 12/13/24 15:29 Q6H PRN PAIN 1-3 OR FEVER > 101 Hydrocodone Bitart/Acetaminophen 1 tab 11/13/24 15:30 11/15/24 05:23 Hydrocodone/Apap 5/325 Tablet PO 11/18/24 15:29 1 tab Q4HR PRN Administration Pain Scale 4-10 Cyanocobalamin 1,000 mcg 11/14/24 09:00 11/14/24 09:02 Cyanocobalamin 500 Mcg Tablet PO 12/14/24 08:59 1,000 mcg DAILY CELINA Administration Dextrose 25 ml 11/13/24 17:21 Dextrose 50%-Water Inj 50 Ml Syringe IV 12/13/24 17:20 Q15MIN PRN BG 50-70 responsive npo pt Dextrose 50 ml 11/13/24 17:21 Dextrose 50%-Water Inj 50 Ml Syringe IV 12/13/24 17:20 Q15MIN PRN BG <50 OR BG <70 & pt unresponsive Folic Acid 2.5 mg 11/14/24 09:00 11/14/24 09:24 Folic Acid 1 Mg Tablet PO 12/14/24 08:59 2.5 mg DAILY CELINA Administration Glucagon 1 mg 11/13/24 17:21 Glucagon Inj 1 Mg Vial IM Q15MIN PRN BG <70, and no IV access Octreotide Acetate 1,000 mcg/ 102 mls @ 5.1 mls/hr 11/14/24 11:15 11/15/24 07:44 Sodium Chloride IV 11/18/24 15:02 50 mcg/hr .Q20H CELINA 5.1 mls/hr Protocol Administration 50 MCG/HR Albumin Human 50 gm in 200 mls @ 100 mls/hr 11/14/24 09:00 11/14/24 20:29 Albuminex 25% Ivpb IV 11/18/24 22:59 100 mls/hr BID CELINA Administration Magnesium Sulfate 2 gm in 50 mls @ 25 mls/hr 11/15/24 07:34 Magnesium Sulfate Ivpb IV 11/15/24 09:33 X1 ONE Insulin Human Lispro 0 unit 11/13/24 18:00 11/15/24 06:20 Insulin Lispro (Admelog) 1 Unit/0.01 Ml Unit SC 12/13/24 17:59 Not Given Q6HR CELINA Protocol Lactulose 20 gm 11/14/24 12:00 11/15/24 05:22 Lactulose Syrup 20 Gm/30 Ml Udc PO 12/14/24 11:59 20 gm QID CELINA Administration Protocol Midodrine 5 mg 11/14/24 10:07 11/15/24 05:23 Midodrine 5 Mg Tablet PO 12/14/24 08:29 5 mg TID CELINA Administration Pantoprazole Sodium 40 mg 11/13/24 21:00 11/14/24 20:21 Pantoprazole Inj 40 Mg Vial IVP 12/13/24 20:59 40 mg BID CELINA Administration Rifaximin 550 mg 11/13/24 21:00 11/14/24 20:21 Rifaximin 550 Mg Tablet PO 11/20/24 20:59 550 mg BID CELINA Administration Plan Elzbieta Knight is a 54F pmhx of significant for decompensated alcoholic cirrhosis, multiple admissions for hepatic encephalopathy, hx of prior variceal bleeding s/p banding, chronic pain, NIDDM2 presented to [facility] 11/13 for altered mental status, weakness and 2 episodes of hematemesis admitted for hepatic encephalopathy likely secondary to decompensated alcoholic cirrhosis, found to have LILY. #Hepatic encephalopathy 2/2 #Decompensated cirrhosis, likely alcoholic #Thrombocytopenia #Hyperammonemia #Hypoalbuminemia #Coagulopathy Patient presented with altered mental status for the past 2 days with generalized weakness with severe asterixis. Patient has been seen multiple times at [facility] for hepatic encephalopathy. On admission, ammonia level elevated at 153, BUN 30, creatinine 2.4, troponin 0.031, platelet 32 decreased to 20, PT 17.7, INR 1.7. EKG NSR rate 81 and CXR showed poor inspiratory effort. UDS only positive for opiates. Patient is currently starting transplant process with appointments. Although patient reports being adherent to medication, patient continues to present with decompensated cirrhosis and hepatic encephalopathy. Likely that medication outpatient is not adequately decreasing ammonia levels and may need to be increased. Noted that patient is on Rifaximin 550 mg twice daily however it has not filled since 10/01/2024. Hypoalbuminemia, thrombocytopenia, coagulopathy likely secondary to cirrhosis. Admission MELD 3.0: 31, 68.3% 90 day survival. Child [place] Class C. [place]: 32.7, poor prognosis Plan: - Rifamixin 550 mg BID and lactulose 20 g QID per GI recs - GI consulted recs appreciated - Continue albumin 50 g BID - CTM mental status and repeat ammonia levels if patient continues to be altered - Avoid diuretics such as spironolactone and Lasix as patient has LILY - If platelets continue to downtrend, will consider consulting hematology; type and screen ordered - No platelet transfusion at this time as patient is hemodynamically stable with blood pressure holding and HR wnl, consider platelet transfusion if platelet becomes hemodynamically unstable #Abdominal pain #Allodynia After improvement of encephalopathy, patient reported severe abdominal pain to light touch as well as with diffuse tenderness to palpation over entire body, latter was not present on previous admissions. Per patient, she believes its new. Denies weakness. Likely 2/2 cirrhosis. Suspicion of peritonitis low but cannot be excluded due to recent hematemesis and hx of variceal bleeding. Allodynia may be related to uremia. Plan: - CTM abdominal pain - Eglon 7.5 q6h prn #Hematemesis #Hx of Grade III esophageal varicies s/p banding 06/13/24 Patient's mother at bedside reports 2 episodes of hematemesis. Prior to admission about a spoonful of bright red blood and first episode a week before admission with about 2-3 spoonfuls of blood. FOBT positive Patient does have a history of grade 3 esophageal varices which were banded, however hemoglobin currently stable in the 10s, which is increased from previous admission in September where hemoglobin was 8-9 and patient has not had any further hematemesis, melena or hematochezia at this time. Ceftriaxone (11/13-11/14) Plan: - Continue IV pantoprazole 40 mg BID - Restarted ceftriaxone 1g for SBP prophylaxis - GI consulted, appreciate recs: EGD today as patient Hgb downtrending and FOBT positive - CLD #Leukopenia Patient WBC on 11/15 decreased from 3.8 to 1.8 with ANC 900. Per chart review, patient has fluctuated lowest being in the 2.0's. Likely secondary to cirrhosis versus sepsis. Sepsis cannot be ruled out as patient has presented with history of VRE in urine the past. Plan: - CTM CBC - On ceftriaxone #LILY, hepatorenal vs prerenal #Pyuria #Hx of VRE UTI Patient presented with creatinine of 2.4 and BUN of 30, baseline creatinine 0.9- 1. Admission UA showed 1+ blood, 18 RBC and 5 WBC. Patient has presented with history of increased creatinine on chart review and at the time was diagnosed with LILY Ddx includes prerenal LILY secondary to dehydration with nausea vomiting and lactulose, hepatorenal isohepatic encephalopathy, UTI as patient repeat UA 2+ blood, +LE and 28 WBC Plan: - Octreotide drip (11/13 - - Continue midodrine 5 mg TID iso suspicion of hepatorenal syndrome - F/u UCx - Strict Is/Os, daily weights - Avoid nephrotoxic medications and renally dose - Discontinue IVF iso cirrhosis as well as suspicion of hepatorenal syndrome - Avoid diuretics such as spironolactone and Lasix as patient has LILY - If creatinine continues to uptrend, consider urine electrolytes #Urinary retention Night of admission, patient developed urinary retention with bladder scan showing 500 cc of retained urine. DDx includes urinary tract infection, encephalopathy vs home methocarbamol s/e profile Plan: - Liz catheter inserted 11/14 - Prior to admission plan to bladder train #Chronic pain Reports chronic pain since back injury years ago, currently has been taking Eglon TID for at least a month. Pain on admission is generalized with tenderness to palpation over the entire body which has improved as mental status improves. Plan: - Pain scale regimen #NIDDM2 Last A1c 6.0 09/2024. On metformin 1g QD at home. Plan: -[facility] management: Lines: PIV Diet: CLD advance as tolerated Bowel: lactulose 20 mg QID GI prophylaxis: IV pantoprazole 40 mg BID DVT prophylaxis: SCDs, heparin held iso possible GIB Disposition: tele for hepatic encephalopathy on lactulose and rifamixin, and pending EGD CODE STATUS: Full code Plan of care discussed with attending Dr. Ahuja, and PGY-2 Dr. Tee. Ekaterina Quintero, DO PGY-1 Internal Medicine Attending Provider Attestation/Addendum I have examined the patient, reviewed labs and imaging findings, discussed the case with the resident(s), and reviewed entered orders. I agree with the plan of care as outlined in this note, with these additional summaries/recommendations: Patient seen at bedside. No acute overnight events. Patient's encephalopathy continues to improve. Continue lactulose, rifaximin, and frequent reorientation for hepatic encephalopathy. Patient has acute kidney injury with creatinine 2.4 and BUN 29 on admission. Nephrology consulted, recommendations appreciated. Most likely secondary to prerenal azotemia versus HRT. Continue albumin and fluids. Per patient's mom she has upcoming appointment with building custodial supervisor. It appears patient is going through transplant list requirements but is not yet on transplant list. Low salt diet, outpatient follow-up for vaccine series, limit Tylenol use. We will hold Lasix/spironolactone in the setting of LILY. Patient had a big drop in her hemoglobin overnight. Hemoglobin decreased to 7.6 from 10.3 yesterday. Patient has a history of recurrent GI bleed secondary to esophageal varices. Continue octreotide, IV Rocephin x 7 days, and PPI. Hold all chemical anticoagulation. Gastroenterology consulted with plans for EGD. Present on hematology panel and most likely related to underlying liver disease. If worsens we will consult hematology. Continue Liz catheter for urinary retention and will attempt bladder training once more improved. Continue insulin sliding scale for diabetes mellitus type 2. Patient updated on the plan and in agreement. All questions answered to satisfaction. Please see residents note for additional details and management. Dr. Seymour MD
[2024-11-15] MEDS: FOLIC ACID 1 MG TABLET 2.5 MG PO (09:24)
[2024-11-15] MEDS: LIDOCAINE 5% 1 PATCH TOP (09:49)
[2024-11-15] MEDS: POTASSIUM CHLORIDE 10% 20 MEQ/15 ML UDC PO (09:50)
[2024-11-15] MEDS: Magnesium Sulfate 2 GM Ivpb 2 GM/50 ML BAG IV (09:50)
[2024-11-15 10:44] LABS: HCG,Qualitative Serum Negative
--- NOTE | 2024-11-15 10:52 | ESPR_ITS ---
Documentation for date of: 11/15/24 Subjective Subjective Interval history: Mother is informant Ms. Knight is a 54-year-old lady who has extensive history of liver cirrhosis secondary to alcoholism (under liver transplant team) recurrent admissions for hepatic encephalopathy, upper GI bleed due to varices/banding, chronic pain syndrome, DM presented to the emergency department with 2 episodes of hematemesis going on for the last few days associated with altered mental status generalized pain weakness and poor p.o. intake. Denies any fever or chills. In the ED patient was noted to be hypotensive. She was given gentle IV fluids, albumin started on home midodrine and lactulose. Admitted to telemetry. Nephrology consultation requested in view of LILY. Patient well-known to me from previous admissions. Home medications included vitamin D, furosemide, [place], last close, metformin, methocarbamol, midodrine, Remeron, Protonix, rifaximin, spironolactone. Labs showed hemoglobin 10.3, platelets 30. Sodium 140, potassium 4.5, BUN 29, creatinine 2.4 of note 10/16/2023 her creatinine is 1.0., Calcium 10.8, magnesium 2.3, total bilirubin 6.7, AST 45, ALT 18, alk phos 96, albumin 2.9, urinalysis shows 2+ blood with 20 RBCs. 11/15/2024 patient currently seen in telemetry. Resting comfortably. Labs/medications reviewed. Urine output improving. She has a Liz catheter. Blood pressure 98/59, heart rate 72. WBC 1.8, hemoglobin 7.6, platelets 20. Patient in contact isolation for VRE UTI. Creatinine tad better at 2.1. Did receive IV fluids, albumin. Will continue the same. Review of Systems Review of Systems Narrative Review of Systems: Patient denies any fever or chills. Does have significant weakness. More alert and awake. Complaining of abdominal comfort and back pain. Did have hematemesis. Exam Vital Signs Temp Pulse Resp BP Pulse Ox O2 Del Method 36.2 C 72 18 98/59 L 96 Room Air 11/15/24 08:00 11/15/24 08:00 11/15/24 08:00 11/15/24 08:00 11/15/24 08:00 11/15/24 08:00 Narrative Exam GENERAL APPEARANCE: Patient currently seen in telemetry. Sick looking. Looks older than her stated age. Scleral icterus noted NECK: Neck supple, no JVD or bruit CARDIOVASCULAR: Heart regular, no murmurs LUNGS/CHEST: Chest clear to auscultation. No rales, rhonchi, wheezing ABDOMEN: Soft, nontender, nondistended. No masses. Normal bowel sounds. Ascites noted EXTREMITIES: No edema, clubbing or cyanosis. SKIN: Skin exam normal without any rashes. Patient has jaundice MUSCULOSKELETAL: In bed NEUROLOGICAL : Mild asterixis noted. Seems to be slow in response Objective Labs 11/16/24 05:37 11/16/24 05:37 Labs: Laboratory Results - last 24 hr 11/14/24 11/14/24 11/15/24 11:00 11:10 04:28 WBC 1.8 L D RBC 2.10 L Hgb 7.6 L D Hct 22.5 L MCV 107 H MCH 36.2 H MCHC 33.8 RDW Std Deviation 69.5 H Plt Count 20 L* D Neut % (Auto) 49 Lymph % (Auto) 35 [place] % (Auto) 11 Eos % (Auto) 5 Baso % (Auto) 1 Neut # (Auto) 0.9 L Lymph # (Auto) 0.6 L [place] # (Auto) 0.2 Eos # (Auto) 0.1 Baso # (Auto) 0.0 Immature Gran # (Auto) 0.01 H Absolute Nucleated RBC 0.00 Immature Gran % 1 H Nucleated RBC % 0 Smear Path Review Sent to Pathologist Sodium 145 Potassium 4.5 D 3.8 D Chloride 106 Carbon Dioxide 24.5 Anion Gap 15 BUN 23 Creatinine 2.1 H Estim Creat Clear Calc 26.5 L eGFR 28 L BUN/Creatinine Ratio 11 L Glucose 150 H Calculated Osmolality 295 Calcium 9.4 Corrected Calcium 9.6 Magnesium 1.9 Total Bilirubin 6.0 H D AST 27 ALT 10 Alkaline Phosphatase 58 D Total Protein 6.2 Albumin 3.8 D Globulin 2.4 Albumin/Globulin Ratio 1.6 HCG, Qual Negative Ur Collection Type Catheter Urine Color Yellow Urine Clarity Clear Urine pH 5.5 Ur Specific [place] 1.022 Urine Protein Negative Urine Glucose (UA) Negative Urine Ketones Trace Urine Blood 2+ A Urine Nitrite Negative Urine Bilirubin Negative Urine Urobilinogen (Auto) Negative Ur Leukocyte Esterase Positive Urine RBC 20 H Urine WBC 28 H Ur Squamous Epith Cells 1 Urine Bacteria None Misc Test Result Platelets confirmed Assessment & Plan Additional Assessment & Plan Additional Plan: 53-year-old female with known history of liver cirrhosis, history of variceal bleeds s/p banding with recurrent admissions for hepatic encephalopathy was admitted for acute encephalopathy, likely secondary to hepatic encephalopathy. Patient was started on lactulose and rifaximin ,,IV fluids, albumin LILY most likely related to prerenal azotemia. Will continue with albumin, octreotide. Patient has decreased p.o. intake in the last couple of weeks. #Acute metabolic encephalopathy #Hepatic encephalopathy In the setting of underlying cirrhosis Continue with lactulose, rifaximin #Decompensated cirrhosis, with sequela #Thrombocytopenia #Coagulopathy #Hyperbilirubinemia Child-[place] class C 13 points MELD sodium 22 points with 19.6% 3-month mortality Continue NG tube with lactulose, rifaximin, albumin midodrine Outpatient hepatology follow up for liver transplant evaluation #Macrocytic anemia Chronic, stable Likely from history of alcohol abuse Thank you Stephen for allowing me to participate in the care of Ms. Knight Quality - progress note Quality Measures Quality Measures: VTE prophylaxis Reason for Continued Stay Reason for Continued Stay: further monitoring
[2024-11-15] MEDS: INSULIN LISPRO (AdmeLOG) 1 UNIT/0.01 ML UNIT SC ×2 (11:20→23:07)
[2024-11-15] MEDS: cefTRIAXone/D5w 1gm IV premix 1 GM/50 ML BAG IV (11:52)
[2024-11-15] MEDS: SODIUM CHLORIDE 0.9% 1000 ML 1,000 ML 80 ML IV (11:59)
[2024-11-15] MEDS: HYDROcodone/APAP 7.5/325 TABLET 1 TAB PO (14:47)
[2024-11-16] VITALS (14 sets, daily range): BP systolic 93–126; BP diastolic 56–77; PULSE 73–108; RESP 15–23; TEMP 36.1–36.6; O2SAT 94–100; BMI 29.2
[2024-11-16] MEDS: INSULIN LISPRO (AdmeLOG) 1 UNIT/0.01 ML UNIT SC ×2 (05:28→12:38)
[2024-11-16] MEDS: OCTREOTIDE ACET INJ 1,000 MCG in SODIUM CHLORIDE 0.9% 100 ML 5.1 MCG IV (05:29)
[2024-11-16] MEDS: LACTULOSE SYRUP 20 GM/30 ML UDC PO ×4 (05:29→21:00)
[2024-11-16] MEDS: MIDODRINE 5 MG TABLET PO ×3 (05:29→21:01)
[2024-11-16] MEDS: HYDROcodone/APAP 7.5/325 TABLET 1 TAB PO ×3 (06:00→21:48)
[2024-11-16 06:01] LABS: Basophils # (Auto) 0.0 Thou/mm3 (0.0-0.2); Basophils % (Auto) 1 % (0-2.5); Eosinophils # (Auto) 0.1 Thou/mm3 (0.0-0.5); Eosinophils % (Auto) 6 % (0-10); Hematocrit 23.1 % (36.0-46.0); Immature Granulocytes Auto 0.00 Thou/mm3 (0.00-0.00); Lymphocytes # (Auto) 0.7 Thou/mm3 (1.0-4.8); Lymphocytes % (Auto) 38 % (10-50); Mean Corpuscular HGB Conc 33.8 g/dl (31.0-37.0); Mean Corpuscular Hemoglobin 35.9 pg (25.0-35.0); Mean Corpuscular Volume 107 fL (80-100); Monocytes # (Auto) 0.1 Thou/mm3 (0.0-0.8); Monocytes % (Auto) 7 % (0-12); Neutrophils # (Auto) 0.9 Thou/mm3 (1.8-7.7); Neutrophils % (Auto) 49 % (37-80); Nucleated Red Blood Cell # 0.00 Thou/mm3 (0.00-0.00); Nucleated Red Blood Cell % 0 /100 WBC (0); RDW Standard Deviation 67.9 fL (36.4-46.3); Red Blood Count 2.17 Miln/mm3 (4.00-5.20); White Blood Count 1.8 Thou/mm3 (3.6-11.0)
[2024-11-16 06:07] LABS: Hemoglobin 7.8 g/dL (12.0-16.0)
[2024-11-16 06:08] LABS: Platelet Count 22 Thou/mm3 (140-440)
[2024-11-16 06:39] LABS: Alanine Aminotransferase 10 U/L (10-49); Albumin, Serum 4.4 gm/dL (3.5-5.0); Albumin/Globulin Ratio 2.1 (1.2-2.2); Alkaline Phosphatase 48 U/L (46-116); Anion Gap 11 (7-16); Aspartate Amino Transferase 30 U/L (0-34); BUN/Creatinine Ratio 10 Ratio (12-20); Bilirubin,Total 5.9 mg/dL (0.3-1.2); Blood Urea Nitrogen 16 mg/dL (9-23); Calcium 9.3 mg/dL (8.3-10.6); Calcium (Corrected) 9.3 mg/dL (8.5-10.1); Carbon Dioxide 24.7 mMol/L (20.0-31.0); Chloride 108 mMol/L (98-107); Creatinine (Component) 1.6 mg/dL (0.6-1.3); Estimated Creatinine Clearance 33.6 mL/min (>60); Globulin 2.1 gm/dL (2.3-3.5); Glucose 233 mg/dL (74-106); Magnesium 2.5 mg/dL (1.6-2.6); Osmolality,Calculated 295 (275-295); Potassium 3.9 mMol/L (3.4-5.1); Sodium 144 mMol/L (136-145); Total Protein 6.5 gm/dL (5.7-8.2); eGFR 38 See Note
[2024-11-16] MEDS: cefTRIAXone/D5w 1gm IV premix 1 GM/50 ML BAG IV (09:09)
[2024-11-16] MEDS: FOLIC ACID 1 MG TABLET 2.5 MG PO (09:10)
--- NOTE | 2024-11-16 09:24 | ESPR_ITS ---
Documentation for date of: 11/16/24 Subjective Subjective Interval history: Mother is informant Ms. Knight is a 54-year-old lady who has extensive history of liver cirrhosis secondary to alcoholism (under liver transplant team) recurrent admissions for hepatic encephalopathy, upper GI bleed due to varices/banding, chronic pain syndrome, DM presented to the emergency department with 2 episodes of hematemesis going on for the last few days associated with altered mental status generalized pain weakness and poor p.o. intake. Denies any fever or chills. In the ED patient was noted to be hypotensive. She was given gentle IV fluids, albumin started on home midodrine and lactulose. Admitted to telemetry. Nephrology consultation requested in view of LILY. Patient well-known to me from previous admissions. Home medications included vitamin D, furosemide, [place], last close, metformin, methocarbamol, midodrine, Remeron, Protonix, rifaximin, spironolactone. Labs showed hemoglobin 10.3, platelets 30. Sodium 140, potassium 4.5, BUN 29, creatinine 2.4 of note 10/16/2023 her creatinine is 1.0., Calcium 10.8, magnesium 2.3, total bilirubin 6.7, AST 45, ALT 18, alk phos 96, albumin 2.9, urinalysis shows 2+ blood with 20 RBCs. 11/16/2024 patient currently seen in telemetry. Resting comfortably. Labs/medications reviewed. Urine output improving. She has a Liz catheter. Blood pressure 126/73, heart rate 83. WBC 1.8, hemoglobin 7.8, platelets 22. Creatinine improved to 1.6, sodium 144, potassium 3.9. Albumin 4.4. Patient had endoscopy yesterday. Patient in contact isolation for VRE UTI. Did receive IV fluids, albumin. Will continue albumin. Discharge planning per primary team. Did explain to the patient that she will have recurrent hospitalizations for complications from liver cirrhosis. Review of Systems Review of Systems Narrative Review of Systems: Patient denies any fever or chills. Does have significant weakness. More alert and awake. Complaining of abdominal discomfort and back pain. Did have hematemesis. Exam Vital Signs Temp Pulse Resp BP Pulse Ox O2 Del Method O2 Flow Rate 36.1 C 95 16 93/56 L 100 Oxy Mask 2 11/16/24 08:00 11/16/24 08:00 11/16/24 08:00 11/16/24 08:00 11/16/24 08:00 11/16/24 08:00 11/16/24 04:00 Narrative Exam GENERAL APPEARANCE: Patient currently seen in telemetry. Sick looking. Looks older than her stated age. Scleral icterus noted NECK: Neck supple, no JVD or bruit CARDIOVASCULAR: Heart regular, no murmurs LUNGS/CHEST: Chest clear to auscultation. No rales, rhonchi, wheezing ABDOMEN: Soft, nontender, nondistended. No masses. Normal bowel sounds. Ascites noted EXTREMITIES: Right arm swollen SKIN: Skin exam normal without any rashes. Patient has jaundice MUSCULOSKELETAL: In bed NEUROLOGICAL : Mild asterixis noted. More alert and awake Objective Labs 11/16/24 05:37 11/16/24 05:37 Labs: Laboratory Results - last 24 hr 11/15/24 11/16/24 04:28 05:37 WBC 1.8 L RBC 2.17 L Hgb 7.8 L Hct 23.1 L MCV 107 H MCH 35.9 H MCHC 33.8 RDW Std Deviation 67.9 H Plt Count 22 L* Neut % (Auto) 49 Lymph % (Auto) 38 [place] % (Auto) 7 Eos % (Auto) 6 Baso % (Auto) 1 Neut # (Auto) 0.9 L Lymph # (Auto) 0.7 L [place] # (Auto) 0.1 Eos # (Auto) 0.1 Baso # (Auto) 0.0 Immature Gran # (Auto) 0.00 Absolute Nucleated RBC 0.00 Immature Gran % 0 Nucleated RBC % 0 Sodium 144 Potassium 3.9 Chloride 108 H Carbon Dioxide 24.7 Anion Gap 11 BUN 16 Creatinine 1.6 H D Estim Creat Clear Calc 33.6 L eGFR 38 L BUN/Creatinine Ratio 10 L Glucose 233 H D Calculated Osmolality 295 Calcium 9.3 Corrected Calcium 9.3 Magnesium 2.5 Total Bilirubin 5.9 H AST 30 ALT 10 Alkaline Phosphatase 48 Total Protein 6.5 Albumin 4.4 D Globulin 2.1 L Albumin/Globulin Ratio 2.1 HCG, Qual Negative Assessment & Plan Additional Assessment & Plan Additional Plan: 53-year-old female with known history of liver cirrhosis, history of variceal bleeds s/p banding with recurrent admissions for hepatic encephalopathy was admitted for acute encephalopathy, likely secondary to hepatic encephalopathy. Patient was started on lactulose and rifaximin ,,IV fluids, albumin LILY most likely related to prerenal azotemia. Will continue with albumin. Patient has decreased p.o. intake in the last couple of weeks. #Acute metabolic encephalopathy #Hepatic encephalopathy In the setting of underlying cirrhosis Continue with lactulose, rifaximin, albumin #Decompensated cirrhosis, with sequela #Thrombocytopenia #Coagulopathy #Hyperbilirubinemia Child-[place] class C 13 points MELD sodium 22 points with 19.6% 3-month mortality Continue lactulose, rifaximin, albumin midodrine Outpatient hepatology follow up for liver transplant evaluation #Macrocytic anemia Chronic, stable Likely from history of alcohol abuse Thank you Stephen for allowing me to participate in the care of Ms. Knight Quality - progress note Quality Measures Quality Measures: VTE prophylaxis Reason for Continued Stay Reason for Continued Stay: further monitoring
--- NOTE | 2024-11-16 10:15 | CHAP ---
Addendum entered by Seth Mcginnis 11/19/24 09:15: This note is a duplication. I had accidentally clicked OK before I had recorded the correct date and time. Original Note: Patient was visited by the Spiritual Care Volunteer who prayed for them. (Volunteer was in the hospital from 09:30-10:15).
--- NOTE | 2024-11-16 10:57 | ESPR_ITS ---
<Statement entered by Zach Plata MD - 11/16/24 17:00> Patient was seen and evaluated at bedside this morning. No acute overnight events. Patient underwent EGD yesterday that showed grade 1 esophageal varices, but no bleeding, there was erythematous mucosa in the stomach with recent bleeding. GI recommended a total of 5 days of octreotide and low the sodium diet. Will continue lactulose, rifaximin, midodrine, albumin. Patient's home spironolactone was continue as well and patient is LILY seems to be improving. Did bladder training for possible DC of Liz today. Patient has persistent leukopenia therefore hematology was also consulted at this time. Will keep Rocephin for now until urine cultures are back. Note reviewed and agree with resident's care plan as documented except as noted above. Case disclosed with attending Dr. Seymour Plata PGY2 Disclaimer: Even though this this note was dictated by speech recognition and even though it was carefully revised there may still be minor errors in transcription typist due to voice recognition software. Documentation for date of: 11/16/24 Subjective Subjective Interval history: No acute overnight events. Patient seen and examined at bedside. Patient complains of continued allodynia, abdominal pain and back pain that have mildly improved compared to yesterday. Endorses some sparkles on vision when she experiences severe pain up spine. Mother endorses niece with hx of rheumatoid arthritis. BP high 90s-low 100s over 60s on midodrint 5 mg QD. Telemetry reviewed sinus rhythm rate average 60-70s overnight. WBC still decreased at 1.8, Hgb stable 7.8, platelets still low 22. K 3.9, repleted with 20 mEq, BUN and Cr downtrending 16 and 1.6 respectively. Tbili still elevated 5.9. EGD showed grade I esophageal varicies found in lower third of esophagus, diffuse severely erythematous mucosa with stigmata of recent bleeding found in entire stomach, duodenum normal and per GI octreotide for 5 days estimated dc on 11/18 and 2g sodium diet. Continue lactulose, rifamixin, midodrine and albumin. Restarted home spironolactone 50 mg QD. Consulted tail puller for persistent leukopenia. Started bladder training. Insulin from q6h to AC. Exam Vital Signs Temp Pulse Resp BP Pulse Ox O2 Del Method O2 Flow Rate 97.0 F 95 16 93/56 L 100 Oxy Mask 2 11/16/24 08:00 11/16/24 08:00 11/16/24 08:00 11/16/24 08:00 11/16/24 08:00 11/16/24 08:00 11/16/24 04:00 Narrative Exam GENERAL: AOx3, no acute distress, sitting up HEENT: NC/AT, mucous membranes moist, bilateral sclera icteric CARDIOVASCULAR: regular rate and rhythm, S1/S2 present, 3/6 systolic murmur heard best at left 2nd intercostal space PULMONARY: clear to auscultation bilaterally, no rales/rhonchi/wheezes ABDOMINAL: soft, mild diffuse tenderness to palpation, no fluid wave appreciated, no rebound/guarding, bowel sounds present EXTREMITIES: no peripheral edema SKIN: warm and dry, intact, no rashes NEURO: CN II-XII grossly intact, no focal deficits, alert, following commands, + no resting tremor and mild asterixis on BUE extension Objective Labs 11/17/24 05:00 11/17/24 05:00 Labs: Laboratory Results - last 24 hr 11/16/24 05:37 WBC 1.8 L RBC 2.17 L Hgb 7.8 L Hct 23.1 L MCV 107 H MCH 35.9 H MCHC 33.8 RDW Std Deviation 67.9 H Plt Count 22 L* Neut % (Auto) 49 Lymph % (Auto) 38 [place] % (Auto) 7 Eos % (Auto) 6 Baso % (Auto) 1 Neut # (Auto) 0.9 L Lymph # (Auto) 0.7 L [place] # (Auto) 0.1 Eos # (Auto) 0.1 Baso # (Auto) 0.0 Immature Gran # (Auto) 0.00 Absolute Nucleated RBC 0.00 Immature Gran % 0 Nucleated RBC % 0 Sodium 144 Potassium 3.9 Chloride 108 H Carbon Dioxide 24.7 Anion Gap 11 BUN 16 Creatinine 1.6 H D Estim Creat Clear Calc 33.6 L eGFR 38 L BUN/Creatinine Ratio 10 L Glucose 233 H D Calculated Osmolality 295 Calcium 9.3 Corrected Calcium 9.3 Magnesium 2.5 Total Bilirubin 5.9 H AST 30 ALT 10 Alkaline Phosphatase 48 Total Protein 6.5 Albumin 4.4 D Globulin 2.1 L Albumin/Globulin Ratio 2.1 Quality Measures Quality Measures none Assessment & Plan Assessment Current Active Medications: Generic Name Dose Route Start Last Admin Trade Name Freq PRN Reason Stop Dose Admin Acetaminophen 650 mg 11/13/24 15:30 Acetaminophen 325 Mg Tablet PO 12/13/24 15:29 Q6H PRN PAIN 1-3 OR FEVER > 101 Hydrocodone Bitart/Acetaminophen 1 tab 11/15/24 10:19 11/16/24 06:00 Hydrocodone/Apap 7.5/325 Tablet PO 11/20/24 10:18 1 tab Q6HR PRN Administration Pain 4-10 Cyanocobalamin 1,000 mcg 11/14/24 09:00 11/16/24 09:10 Cyanocobalamin 500 Mcg Tablet PO 12/14/24 08:59 1,000 mcg DAILY CELINA Administration Dextrose 25 ml 11/13/24 17:21 Dextrose 50%-Water Inj 50 Ml Syringe IV 12/13/24 17:20 Q15MIN PRN BG 50-70 responsive npo pt Dextrose 50 ml 11/13/24 17:21 Dextrose 50%-Water Inj 50 Ml Syringe IV 12/13/24 17:20 Q15MIN PRN BG <50 OR BG <70 & pt unresponsive Folic Acid 2.5 mg 11/14/24 09:00 11/16/24 09:10 Folic Acid 1 Mg Tablet PO 12/14/24 08:59 2.5 mg DAILY CELINA Administration Glucagon 1 mg 11/13/24 17:21 Glucagon Inj 1 Mg Vial IM Q15MIN PRN BG <70, and no IV access Octreotide Acetate 1,000 mcg/ 102 mls @ 5.1 mls/hr 11/14/24 11:15 11/16/24 05:29 Sodium Chloride IV 11/18/24 15:02 50 mcg/hr .Q20H CELINA 5.1 mls/hr Protocol Administration 50 MCG/HR Albumin Human 50 gm in 200 mls @ 100 mls/hr 11/14/24 09:00 11/16/24 09:38 Albuminex 25% Ivpb IV 11/18/24 22:59 100 mls/hr BID CELINA Administration Ceftriaxone Sodium/Dextrose 1 gm in 50 mls @ 100 mls/hr 11/15/24 10:10 11/16/24 09:09 Rocephin/D5w 1gm Iv Premix IV 11/22/24 10:09 100 mls/hr QDAY CELINA Administration Insulin Human Lispro 0 unit 11/16/24 10:15 Insulin Lispro (Admelog) 1 Unit/0.01 Ml Unit SC 12/16/24 10:14 AC CELINA Protocol Lactulose 20 gm 11/14/24 12:00 11/16/24 05:29 Lactulose Syrup 20 Gm/30 Ml Udc PO 12/14/24 11:59 20 gm QID CELINA Administration Protocol Midodrine 5 mg 11/14/24 10:07 11/16/24 05:29 Midodrine 5 Mg Tablet PO 12/14/24 08:29 5 mg TID CELINA Administration Pantoprazole Sodium 40 mg 11/13/24 21:00 11/16/24 09:12 Pantoprazole Inj 40 Mg Vial IVP 12/13/24 20:59 40 mg BID CELINA Administration Rifaximin 550 mg 11/13/24 21:00 11/16/24 09:10 Rifaximin 550 Mg Tablet PO 11/20/24 20:59 550 mg BID CELINA Administration Spironolactone 50 mg 11/16/24 10:15 Spironolactone 25 Mg Tablet PO 12/16/24 10:14 DAILY CELINA Plan Elzbieta Knight is a 54F pmhx of significant for decompensated alcoholic cirrhosis, multiple admissions for hepatic encephalopathy, hx of prior variceal bleeding s/p banding, chronic pain, NIDDM2 presented to [facility] 11/13 for altered mental status, weakness and 2 episodes of hematemesis admitted for hepatic encephalopathy likely secondary to decompensated alcoholic cirrhosis, found to have LILY, later developing leukopenia. #Hepatic encephalopathy 2/2 #Decompensated cirrhosis, likely alcoholic #Thrombocytopenia #Hyperammonemia #Hypoalbuminemia #Coagulopathy Patient presented with altered mental status for the past 2 days with generalized weakness with severe asterixis. Patient has been seen multiple times at [facility] for hepatic encephalopathy. On admission, ammonia level elevated at 153, BUN 30, creatinine 2.4, troponin 0.031, platelet 32 decreased to 20, PT 17.7, INR 1.7. EKG NSR rate 81 and CXR showed poor inspiratory effort. UDS only positive for opiates. Patient is currently starting transplant process with appointments. Although patient reports being adherent to medication, patient continues to present with decompensated cirrhosis and hepatic encephalopathy. Likely that medication outpatient is not adequately decreasing ammonia levels and may need to be increased. Noted that patient is on Rifaximin 550 mg twice daily however it has not filled since 10/01/2024. Hypoalbuminemia, thrombocytopenia, coagulopathy likely secondary to cirrhosis. Admission MELD 3.0: 31, 68.3% 90 day survival. Child [place] Class C. [place]: 32.7, poor prognosis Plan: - Rifamixin 550 mg BID and lactulose 20 g QID per GI recs - GI consulted recs appreciated - Continue albumin 50 g BID - Restart home spironolactone 50 mg QD - CTM mental status and repeat ammonia levels if patient continues to be altered - Avoid diuretics such as spironolactone and Lasix as patient has LILY - No platelet transfusion at this time as patient is hemodynamically stable with blood pressure holding and HR wnl, consider platelet transfusion if platelet becomes hemodynamically unstable #Abdominal pain #Allodynia After improvement of encephalopathy, patient reported severe abdominal pain to light touch as well as with diffuse tenderness to palpation over entire body, latter was not present on previous admissions. Per mother, patient has experienced skin sensitivity in the past. Denies weakness. Likely 2/2 cirrhosis. Suspicion of peritonitis low but cannot be excluded due to recent hematemesis and hx of variceal bleeding. Allodynia may be related to uremia vs fibromyalgia. Plan: - CTM abdominal pain - [place] 7.5 q6h prn #Hematemesis #Gastritis with recent mucusal bleeding #Grade I non-bleeding esophageal varicies at lower third of esophagus #Hx of Grade III esophageal varicies s/p banding 06/13/24 Patient's mother at bedside reports 2 episodes of hematemesis. Prior to admission about a spoonful of bright red blood and first episode a week before admission with about 2-3 spoonfuls of blood. FOBT positive Patient does have a history of grade 3 esophageal varices which were banded, however hemoglobin currently stable in the 10s, which is increased from previous admission in September where hemoglobin was 8-9 and patient has not had any further hematemesis, melena or hematochezia at this time. 11/14 EGD showed grade I esophageal varicies found in lower third of esophagus, diffuse severely erythematous mucosa with stigmata of recent bleeding found in entire stomach, duodenum normal Plan: - Octreotide drip for total 5 days (11/13 - - Continue IV pantoprazole 40 mg BID - Continue ceftriaxone 1g - GI consulted, appreciate recs: octreotide for 5 days, 2g sodium diet - 2g sodium diet #Leukopenia Patient WBC on 11/15 decreased from 3.8 to 1.8 with ANC 900. Per chart review, patient has fluctuated lowest being in the 2.0's. Likely secondary to cirrhosis versus sepsis. Sepsis cannot be ruled out as patient has presented with history of VRE in urine the past. Plan: - Hematology consulted, recs appreciated - CTM CBC - F/u UCx - On ceftriaxone #LILY, hepatorenal vs prerenal #Pyuria #Hx of VRE UTI Patient presented with creatinine of 2.4 and BUN of 30, baseline creatinine 0.9- 1. Admission UA showed 1+ blood, 18 RBC and 5 WBC. Patient has presented with history of increased creatinine on chart review and at the time was diagnosed with LILY Ddx includes prerenal LILY secondary to dehydration with nausea vomiting and lactulose, hepatorenal isohepatic encephalopathy, UTI as patient repeat UA 2+ blood, +LE and 28 WBC Plan: - Continue midodrine 5 mg TID iso suspicion of hepatorenal syndrome - F/u UCx - Strict Is/Os, daily weights - Avoid nephrotoxic medications and renally dose - Discontinue IVF iso cirrhosis as well as suspicion of hepatorenal syndrome - If creatinine continues to uptrend, consider urine electrolytes #Urinary retention Night of admission, patient developed urinary retention with bladder scan showing 500 cc of retained urine. DDx includes urinary tract infection, encephalopathy vs home methocarbamol s/e profile Plan: - Liz catheter inserted 11/14 - Start bladder training #Chronic pain Reports chronic pain since back injury years ago, currently has been taking [place] TID for at least a month. Pain on admission is generalized with tenderness to palpation over the entire body which has improved as mental status improves. Plan: - Pain scale regimen #NIDDM2 Last A1c 6.0 09/2024. On metformin 1g QD at home. Plan: -[facility] management: Lines: PIV Diet: CLD advance as tolerated Bowel: lactulose 20 mg QID GI prophylaxis: IV pantoprazole 40 mg BID DVT prophylaxis: SCDs, heparin held iso possible GIB Disposition: tele for hepatic encephalopathy on lactulose and rifamixin, octreotide for 5 days CODE STATUS: Full code Plan of care discussed with attending Dr. Ahuja, and PGY-2 Dr. Tee. Ekaterina Quintero, DO PGY-1 Internal Medicine Attending Provider Attestation/Addendum I have examined the patient, reviewed labs and imaging findings, discussed the case with the resident(s), and reviewed entered orders. I agree with the plan of care as outlined in this note, with these additional summaries/recommendations: Patient seen at bedside. No acute overnight events. Patient's encephalopathy continues to improve. Continue lactulose, rifaximin, and frequent reorientation for hepatic encephalopathy. Patient has acute kidney injury with creatinine 2.4 and BUN 29 on admission. Nephrology consulted and following. Most likely secondary to prerenal azotemia versus HRT. Continue albumin and fluids. Renal function improving. Per patient's mom she has upcoming appointment with counter help. Low salt diet, outpatient follow-up for vaccine series, and limit Tylenol use for underlying cirrhosis. Patient is S/P EGD 11/15/24 which revealed grade 1 esophageal varices, erythematous mucosa throughout stomach, and normal duodenum. Continue octreotide (5 days total), IV Rocephin x 7 days, and PPI. Hold all chemical anticoagulation. Patient continues to have leukopenia likely related to underlying liver disease although we will consult hematology for additional recommendations. Continue Liz catheter for urinary retention and will attempt bladder training. Continue insulin sliding scale for diabetes mellitus type 2. Patient updated on the plan and in agreement. All questions answered to satisfaction. Please see residents note for additional details and management. Dr. Seymour MD
[2024-11-16 11:33] LABS: Slide Review Platelets confirmed
[2024-11-16 12:39] LABS: OBS Card Lot # 23001; OBS Developer Lot # 23002; OBS QC OK? Yes; Occult Blood, Stool Positive (Negative)
[2024-11-16] MEDS: SPIRONOLACTONE 25 MG TABLET 50 MG PO (12:39)
--- NOTE | 2024-11-16 14:58 | PC.SS ---
rounding note: Patient will need to stay until she finishes drip until the 5th
--- NOTE | 2024-11-16 16:15 | PD.IMPROG ---
Documentation for date of: 11/16/24 Subjective Subjective Interval history: Patient evaluated hemoglobin hematocrit 7.8 and 23.1 Upper endoscopy showed bumper esophageal varices and mucosal oozing of blood from hypertensive portal gastropathy Exam Vital Signs Temp Pulse Resp BP Pulse Ox O2 Del Method O2 Flow Rate 97.1 F 83 20 115/74 100 Room Air 2 11/16/24 12:00 11/16/24 14:58 11/16/24 12:00 11/16/24 14:58 11/16/24 12:00 11/16/24 12:00 11/16/24 11:59 Objective Labs 11/16/24 05:37 11/16/24 05:37 Labs: Laboratory Results - last 24 hr 11/16/24 11/16/24 04:45 05:37 WBC 1.8 L RBC 2.17 L Hgb 7.8 L Hct 23.1 L MCV 107 H MCH 35.9 H MCHC 33.8 RDW Std Deviation 67.9 H Plt Count 22 L* Neut % (Auto) 49 Lymph % (Auto) 38 [place] % (Auto) 7 Eos % (Auto) 6 Baso % (Auto) 1 Neut # (Auto) 0.9 L Lymph # (Auto) 0.7 L [place] # (Auto) 0.1 Eos # (Auto) 0.1 Baso # (Auto) 0.0 Immature Gran # (Auto) 0.00 Absolute Nucleated RBC 0.00 Immature Gran % 0 Nucleated RBC % 0 Sodium 144 Potassium 3.9 Chloride 108 H Carbon Dioxide 24.7 Anion Gap 11 BUN 16 Creatinine 1.6 H D Estim Creat Clear Calc 33.6 L eGFR 38 L BUN/Creatinine Ratio 10 L Glucose 233 H D Calculated Osmolality 295 Calcium 9.3 Corrected Calcium 9.3 Magnesium 2.5 Total Bilirubin 5.9 H AST 30 ALT 10 Alkaline Phosphatase 48 Total Protein 6.5 Albumin 4.4 D Globulin 2.1 L Albumin/Globulin Ratio 2.1 Stool Occult Blood Positive A Misc Test Result Platelets confirmed Impressions Impression: Hepatic encephalopathy improving Mucosal oozing of blood due to hypertensive portal gastropathy 1+, esophageal varices not large enough for band ligation Continue current management Assessment & Plan A&P Narrative # Hepatic encephalopathy Lactulose 20 g 4 times daily I do not think patient can drink it Recommend small NGT like 4 [place] and give the lactulose via NGT Xifaxan 550 mg Twice daily Will follow the patient Other medical problems include chronic liver disease advanced portal hypertension ascites and hepatic encephalopathy with history of GI bleed requiring palliation of the esophageal varices as well as internal hemorrhoids Will follow the patient Thank you very much for the opportunity to participate in the care of this patient Time Spent With Patient Time: Total time spent is greater than 50% in coordination of care (as documented) at patient's floor/unit and/or counseling patient:
[2024-11-17] VITALS (11 sets, daily range): BP systolic 111–131; BP diastolic 57–86; PULSE 71–91; RESP 14–20; TEMP 35.9–37.3; O2SAT 95–99; BMI 32.7
[2024-11-17] MEDS: OCTREOTIDE ACET INJ 1,000 MCG in SODIUM CHLORIDE 0.9% 100 ML 5.1 MCG IV ×2 (02:43→23:56)
[2024-11-17] MEDS: LACTULOSE SYRUP 20 GM/30 ML UDC PO ×2 (05:16→21:37)
[2024-11-17] MEDS: MIDODRINE 5 MG TABLET PO (05:16)
[2024-11-17 05:44] LABS: Basophils # (Auto) 0.0 Thou/mm3 (0.0-0.2); Basophils % (Auto) 0 % (0-2.5); Eosinophils # (Auto) 0.2 Thou/mm3 (0.0-0.5); Eosinophils % (Auto) 6 % (0-10); Hematocrit 24.1 % (36.0-46.0); Immature Granulocytes Auto 0.00 Thou/mm3 (0.00-0.00); Lymphocytes # (Auto) 0.9 Thou/mm3 (1.0-4.8); Lymphocytes % (Auto) 30 % (10-50); Mean Corpuscular HGB Conc 32.8 g/dl (31.0-37.0); Mean Corpuscular Hemoglobin 36.2 pg (25.0-35.0); Mean Corpuscular Volume 111 fL (80-100); Monocytes # (Auto) 0.3 Thou/mm3 (0.0-0.8); Monocytes % (Auto) 9 % (0-12); Neutrophils # (Auto) 1.6 Thou/mm3 (1.8-7.7); Neutrophils % (Auto) 54 % (37-80); Nucleated Red Blood Cell # 0.00 Thou/mm3 (0.00-0.00); Nucleated Red Blood Cell % 0 /100 WBC (0); RDW Standard Deviation 71.4 fL (36.4-46.3); Red Blood Count 2.18 Miln/mm3 (4.00-5.20); White Blood Count 3.0 Thou/mm3 (3.6-11.0)
[2024-11-17 05:51] LABS: Hemoglobin 7.9 g/dL (12.0-16.0)
[2024-11-17 05:52] LABS: Platelet Count 23 Thou/mm3 (140-440)
[2024-11-17 06:10] LABS: Slide Review Platelets confirmed
[2024-11-17 06:11] LABS: Alanine Aminotransferase 10 U/L (10-49); Albumin, Serum 4.8 gm/dL (3.5-5.0); Albumin/Globulin Ratio 2.3 (1.2-2.2); Alkaline Phosphatase 47 U/L (46-116); Anion Gap 11 (7-16); Aspartate Amino Transferase 31 U/L (0-34); BUN/Creatinine Ratio 6 Ratio (12-20); Bilirubin,Total 5.9 mg/dL (0.3-1.2); Blood Urea Nitrogen 9 mg/dL (9-23); Calcium 9.7 mg/dL (8.3-10.6); Calcium (Corrected) 9.7 mg/dL (8.5-10.1); Carbon Dioxide 26.0 mMol/L (20.0-31.0); Chloride 110 mMol/L (98-107); Creatinine (Component) 1.5 mg/dL (0.6-1.3); Estimated Creatinine Clearance 35.8 mL/min (>60); Globulin 2.1 gm/dL (2.3-3.5); Glucose 174 mg/dL (74-106); Magnesium 2.5 mg/dL (1.6-2.6); Osmolality,Calculated 295 (275-295); Potassium 4.6 mMol/L (3.4-5.1); Sodium 147 mMol/L (136-145); Total Protein 6.9 gm/dL (5.7-8.2); eGFR 41 See Note
[2024-11-17] MEDS: INSULIN LISPRO (AdmeLOG) 1 UNIT/0.01 ML UNIT SC ×3 (07:56→17:25)
[2024-11-17] MEDS: cefTRIAXone/D5w 1gm IV premix 1 GM/50 ML BAG IV (09:33)
[2024-11-17] MEDS: FOLIC ACID 1 MG TABLET 2.5 MG PO (09:34)
[2024-11-17] MEDS: SPIRONOLACTONE 25 MG TABLET 50 MG PO (09:34)
--- NOTE | 2024-11-17 09:50 | ESPR_ITS ---
Documentation for date of: 11/17/24 Senior resident attestation: Patient evaluated and examined at the bedside, plan of care discussed with rest of the team including my attending physician, except as noted. #GI bleed?upper GI endoscopy by Dr. Culp was done which showed advanced hypertensive portal gastropathy with possible oozing of blood, recommended continuing 5 days of octreotide, day 5 on 11/18/2024, patient will be discharged following completion of octreotide. #Hepatic encephalopathy?patient back to baseline mental status, A and O x 3, continue with lactulose and Xifaxan. #LILY likely prerenal ischemia, ruled out hepatorenal syndrome as patient's renal function improved after volume expansion with IV albumin and midodrine. Increase midodrine to 10 mg 3 times daily. #UTI?VRE?patient was seen previous admission with UTI vancomycin-resistant Enterococcus, likely inadequate treatment as patient was discharged on levofloxacin, resistant to levofloxacin on previous cultures, pending final results on urine culture this admit, possible colonization versus UTI precipitating hepatic encephalopathy. She was Anticipate discharge tomorrow, patient will require follow-up with her geospatial technologist outpatient basis and follow-up with Liver transplant center. Quresh PGY3 Subjective Subjective Interval history: No acute overnight events. Patient seen and examined at bedside. Patient complains of continued sensitive body pain as well as abdominal pain. Vision problems greatly improved. Mentation greatly improved since admission. Patient complains of more than 6 bowel movements a day. Patient reports she is able to urinate. Blood pressure 110-120s/65-75. Telemetry reviewed, sinus rhythm rate 70s to 80s. White count increased from 1.8-3.0 with ANC 1.6 . Hemoglobin stable at 7.9. Platelets stable at 23. Sodium 147, potassium 4.6, chloride 810, creatinine stable back to baseline at 1.5. Magnesium 2.5, T. bili stable elevated 5.9, urine culture pending, albumin 4.8. Decreased lactulose 20 mg from QID to BID due to more than 6 bowel movements a day per patient. Midodrine increased from 5 mg to 10 mg TID. Continue rifamixin, albumin and spironolactone. Continue octreotide for total 5 days, anticipate discharge tomorrow following octreotide drip. Continue pantoprazole and ceftriaxone. PT ordered. Exam Vital Signs Temp Pulse Resp BP Pulse Ox O2 Del Method O2 Flow Rate 97 F 81 19 131/86 H 99 Room Air 2 11/17/24 08:00 11/17/24 09:34 11/17/24 08:00 11/17/24 09:34 11/17/24 08:00 11/17/24 04:00 11/16/24 11:59 Narrative Exam GENERAL: AOx3, no acute distress, sitting up, fatigued HEENT: NC/AT, mucous membranes moist, bilateral sclera icteric CARDIOVASCULAR: regular rate and rhythm, S1/S2 present, 3/6 systolic murmur heard best at left 2nd intercostal space PULMONARY: clear to auscultation bilaterally, no rales/rhonchi/wheezes ABDOMINAL: soft, mild diffuse tenderness to palpation, no fluid wave appreciated, no rebound/guarding, bowel sounds present EXTREMITIES: no peripheral edema SKIN: warm and dry, intact, no rashes NEURO: CN II-XII grossly intact, no focal deficits, alert, following commands, + no resting tremor or asterixis Objective Labs 11/18/24 04:53 11/18/24 04:53 Labs: Laboratory Results - last 24 hr 11/16/24 11/16/24 11/17/24 04:45 05:37 05:00 WBC 3.0 L D RBC 2.18 L Hgb 7.9 L Hct 24.1 L MCV 111 H MCH 36.2 H MCHC 32.8 RDW Std Deviation 71.4 H Plt Count 23 L* Neut % (Auto) 54 Lymph % (Auto) 30 [place] % (Auto) 9 Eos % (Auto) 6 Baso % (Auto) 0 Neut # (Auto) 1.6 L Lymph # (Auto) 0.9 L [place] # (Auto) 0.3 Eos # (Auto) 0.2 Baso # (Auto) 0.0 Immature Gran # (Auto) 0.00 Absolute Nucleated RBC 0.00 Immature Gran % 0 Nucleated RBC % 0 Sodium 147 H Potassium 4.6 D Chloride 110 H Carbon Dioxide 26.0 Anion Gap 11 BUN 9 Creatinine 1.5 H Estim Creat Clear Calc 35.8 L eGFR 41 L BUN/Creatinine Ratio 6 L Glucose 174 H D Calculated Osmolality 295 Calcium 9.7 Corrected Calcium 9.7 Magnesium 2.5 Total Bilirubin 5.9 H AST 31 ALT 10 Alkaline Phosphatase 47 Total Protein 6.9 Albumin 4.8 Globulin 2.1 L Albumin/Globulin Ratio 2.3 H Stool Occult Blood Positive A Misc Test Result Platelets confirmed Platelets confirmed Quality Measures Quality Measures none Assessment & Plan Assessment Current Active Medications: Generic Name Dose Route Start Last Admin Trade Name Freq PRN Reason Stop Dose Admin Acetaminophen 650 mg 11/13/24 15:30 Acetaminophen 325 Mg Tablet PO 12/13/24 15:29 Q6H PRN PAIN 1-3 OR FEVER > 101 Hydrocodone Bitart/Acetaminophen 1 tab 11/15/24 10:19 11/16/24 21:48 Hydrocodone/Apap 7.5/325 Tablet PO 11/20/24 10:18 1 tab Q6HR PRN Administration Pain 4-10 Cyanocobalamin 1,000 mcg 11/14/24 09:00 11/17/24 09:34 Cyanocobalamin 500 Mcg Tablet PO 12/14/24 08:59 1,000 mcg DAILY CELIAN Administration Dextrose 25 ml 11/13/24 17:21 Dextrose 50%-Water Inj 50 Ml Syringe IV 12/13/24 17:20 Q15MIN PRN BG 50-70 responsive npo pt Dextrose 50 ml 11/13/24 17:21 Dextrose 50%-Water Inj 50 Ml Syringe IV 12/13/24 17:20 Q15MIN PRN BG <50 OR BG <70 & pt unresponsive Folic Acid 2.5 mg 11/14/24 09:00 11/17/24 09:34 Folic Acid 1 Mg Tablet PO 12/14/24 08:59 2.5 mg DAILY CELINA Administration Glucagon 1 mg 11/13/24 17:21 Glucagon Inj 1 Mg Vial IM Q15MIN PRN BG <70, and no IV access Octreotide Acetate 1,000 mcg/ 102 mls @ 5.1 mls/hr 11/14/24 11:15 11/17/24 02:43 Sodium Chloride IV 11/18/24 15:02 50 mcg/hr .Q20H CELINA 5.1 mls/hr Protocol Administration 50 MCG/HR Albumin Human 50 gm in 200 mls @ 100 mls/hr 11/14/24 09:00 11/17/24 09:33 Albuminex 25% Ivpb IV 11/18/24 22:59 100 mls/hr BID CELINA Administration Ceftriaxone Sodium/Dextrose 1 gm in 50 mls @ 100 mls/hr 11/15/24 10:10 11/17/24 09:33 Rocephin/D5w 1gm Iv Premix IV 11/22/24 10:09 100 mls/hr QDAY CELINA Administration Insulin Human Lispro 0 unit 11/16/24 10:15 11/17/24 07:56 Insulin Lispro (Admelog) 1 Unit/0.01 Ml Unit SC 12/16/24 10:14 3 unit AC CELINA Administration Protocol Lactulose 20 gm 11/14/24 12:00 11/17/24 05:16 Lactulose Syrup 20 Gm/30 Ml Udc PO 12/14/24 11:59 20 gm QID CELINA Administration Protocol Midodrine 5 mg 11/14/24 10:07 11/17/24 05:16 Midodrine 5 Mg Tablet PO 12/14/24 08:29 5 mg TID CELINA Administration Pantoprazole Sodium 40 mg 11/13/24 21:00 11/17/24 09:34 Pantoprazole Inj 40 Mg Vial IVP 12/13/24 20:59 40 mg BID CELINA Administration Rifaximin 550 mg 11/13/24 21:00 11/17/24 09:34 Rifaximin 550 Mg Tablet PO 11/20/24 20:59 550 mg BID CELINA Administration Spironolactone 50 mg 11/16/24 10:15 11/17/24 09:34 Spironolactone 25 Mg Tablet PO 12/16/24 10:14 50 mg DAILY CELINA Administration Plan Elzbieta Knight is a 54F pmhx of significant for decompensated alcoholic cirrhosis, multiple admissions for hepatic encephalopathy, hx of prior variceal bleeding s/p banding, chronic pain, NIDDM2 presented to [facility] 11/13 for altered mental status, weakness and 2 episodes of hematemesis admitted for hepatic encephalopathy likely secondary to decompensated alcoholic cirrhosis, found to have LILY, later developing leukopenia. #Hepatic encephalopathy 2/2 #Decompensated cirrhosis, likely alcoholic #Thrombocytopenia #Hyperammonemia #Hypoalbuminemia #Coagulopathy Patient presented with altered mental status for the past 2 days with generalized weakness with severe asterixis. Patient has been seen multiple times at [facility] for hepatic encephalopathy. On admission, ammonia level elevated at 153, BUN 30, creatinine 2.4, troponin 0.031, platelet 32 decreased to 20, PT 17.7, INR 1.7. EKG NSR rate 81 and CXR showed poor inspiratory effort. UDS only positive for opiates. Patient is currently starting transplant process with appointments. Although patient reports being adherent to medication, patient continues to present with decompensated cirrhosis and hepatic encephalopathy. Likely that medication outpatient is not adequately decreasing ammonia levels and may need to be increased. Noted that patient is on Rifaximin 550 mg twice daily however it has not filled since 10/01/2024. Hypoalbuminemia, thrombocytopenia, coagulopathy likely secondary to cirrhosis. Admission MELD 3.0: 31, 68.3% 90 day survival. Child [place] Class C. [place]: 32.7, poor prognosis Plan: - Rifamixin 550 mg BID per GI recs - Due to >6 BM/day, decrease lactulose 20 g QID to BID - GI consulted recs appreciated - Continue albumin 50 g BID - Continue home spironolactone 50 mg QD - CTM mental status and repeat ammonia levels if patient continues to be altered - Consider Lasix if patient becomes clinically fluid overloaded - No platelet transfusion at this time as patient is hemodynamically stable with blood pressure holding and HR wnl, consider platelet transfusion if platelet becomes hemodynamically unstable - PT ordered #Abdominal pain #Allodynia After improvement of encephalopathy, patient reported severe abdominal pain to light touch as well as with diffuse tenderness to palpation over entire body, latter was not present on previous admissions. Per mother, patient has experienced skin sensitivity in the past. Denies weakness. Likely 2/2 cirrhosis. Suspicion of peritonitis low but cannot be excluded due to recent hematemesis and hx of variceal bleeding. Allodynia may be related to uremia vs fibromyalgia. Plan: - CTM abdominal pain - [place] 7.5 q6h prn #Hematemesis #Gastritis with recent mucusal bleeding #Grade I non-bleeding esophageal varicies at lower third of esophagus #Hx of Grade III esophageal varicies s/p banding 06/13/24 Patient's mother at bedside reports 2 episodes of hematemesis. Prior to admission about a spoonful of bright red blood and first episode a week before admission with about 2-3 spoonfuls of blood. FOBT positive Patient does have a history of grade 3 esophageal varices which were banded, however hemoglobin currently stable in the 10s, which is increased from previous admission in September where hemoglobin was 8-9 and patient has not had any further hematemesis, melena or hematochezia at this time. 11/14 EGD showed grade I esophageal varicies found in lower third of esophagus, diffuse severely erythematous mucosa with stigmata of recent bleeding found in entire stomach, mucosal oozing of blood due to hypertensive portal gastropathy, duodenum normal Plan: - Octreotide drip for total 5 days (11/13 - - Continue IV pantoprazole 40 mg BID - Continue ceftriaxone 1g - GI consulted, appreciate recs: octreotide for 5 days, 2g sodium diet #Leukopenia Patient WBC on 11/15 decreased from 3.8 to 1.8 with ANC 900. Per chart review, patient has fluctuated lowest being in the 2.0's. Likely secondary to cirrhosis versus sepsis. Sepsis cannot be ruled out as patient has presented with history of VRE in urine the past. Plan: - Hematology consulted, recs appreciated - CTM CBC - F/u UCx - On ceftriaxone #LILY, hepatorenal vs prerenal #Pyuria #Hx of VRE UTI Patient presented with creatinine of 2.4 and BUN of 30, baseline creatinine 0.9- 1. Admission UA showed 1+ blood, 18 RBC and 5 WBC. Patient has presented with history of increased creatinine on chart review and at the time was diagnosed with LILY Ddx includes prerenal LILY secondary to dehydration with nausea vomiting and lactulose, hepatorenal isohepatic encephalopathy, UTI as patient repeat UA 2+ blood, +LE and 28 WBC Plan: - Increase midodrine 5 mg TID to 10 mg TID which is home dose - F/u UCx - Strict Is/Os, daily weights - Avoid nephrotoxic medications and renally dose - Discontinue IVF iso cirrhosis as well as suspicion of hepatorenal syndrome - If creatinine continues to uptrend, consider urine electrolytes #Urinary retention Night of admission, patient developed urinary retention with bladder scan showing 500 cc of retained urine. DDx includes urinary tract infection, encephalopathy vs home methocarbamol s/e profile Liz (11/14-11/15), s/p bladder training Plan: - CTM urine output #Chronic pain Reports chronic pain since back injury years ago, currently has been taking [place] TID for at least a month. Pain on admission is generalized with tenderness to palpation over the entire body which has improved as mental status improves. Plan: - Pain scale regimen #NIDDM2 Last A1c 6.0 09/2024. On metformin 1g QD at home. Plan: -[facility] management: Lines: PIV Diet: CLD advance as tolerated Bowel: lactulose 20 mg QID GI prophylaxis: IV pantoprazole 40 mg BID DVT prophylaxis: SCDs, heparin held iso possible GIB Disposition: tele for hepatic encephalopathy on lactulose and rifamixin, octreotide for 5 days CODE STATUS: Full code Plan of care discussed with attending Dr. Ahuja, and PGY-3 Dr. Stephens. Ekaterina Quintero, DO PGY-1 Internal Medicine Attending Provider Attestation/Addendum I have examined the patient, reviewed labs and imaging findings, discussed the case with the resident(s), and reviewed entered orders. I agree with the plan of care as outlined in this note, with these additional summaries/recommendations: Patient seen at bedside. No acute overnight events. Patient's encephalopathy continues to improve. Continue lactulose, rifaximin, and frequent reorientation for hepatic encephalopathy. Patient has acute kidney injury with creatinine 2.4 and BUN 29 on admission. Nephrology consulted and following. Most likely secondary to prerenal azotemia. Continue albumin and fluids. Renal function improving. Outpatient follow-up with community sports coordinator for cirrhosis. Low salt diet, outpatient follow-up for vaccine series, and limit Tylenol use for underlying cirrhosis. Patient is S/P EGD 11/15/24 which revealed grade 1 esophageal varices, erythematous mucosa throughout stomach, and normal duodenum. Continue octreotide (5 days total), IV Rocephin x 7, and PPI. Hold all chemical anticoagulation. Patient continues to have leukopenia likely related to underlying liver disease and currently improving. Continue insulin sliding scale for diabetes mellitus type 2. Patient updated on the plan and in agreement. All questions answered to satisfaction. Please see residents note for additional details and management. Dr. Seymour MD
--- NOTE | 2024-11-17 10:23 | PD.RESPRO ---
Documentation for date of: 11/17/24 Subjective Subjective Interval history: Ms. Knight is a 54-year-old lady who has extensive history of liver cirrhosis secondary to alcoholism (under liver transplant team) recurrent admissions for hepatic encephalopathy, upper GI bleed due to varices/banding, chronic pain syndrome, DM presented to the emergency department with 2 episodes of hematemesis going on for the last few days associated with altered mental status generalized pain weakness and poor p.o. intake. Denies any fever or chills. In the ED patient was noted to be hypotensive. She was given gentle IV fluids, albumin started on home midodrine and lactulose. Admitted to telemetry. Nephrology consultation requested in view of LILY. Patient well-known to me from previous admissions. Home medications included vitamin D, furosemide, [place], last close, metformin, methocarbamol, midodrine, Remeron, Protonix, rifaximin, spironolactone. Labs showed hemoglobin 10.3, platelets 30. Sodium 140, potassium 4.5, BUN 29, creatinine 2.4 of note 10/16/2023 her creatinine is 1.0., Calcium 10.8, magnesium 2.3, total bilirubin 6.7, AST 45, ALT 18, alk phos 96, albumin 2.9, urinalysis shows 2+ blood with 20 RBCs. 11/16/2024 patient currently seen in telemetry. Resting comfortably. Labs/medications reviewed. Urine output improving. She has a Liz catheter. Blood pressure 126/73, heart rate 83. WBC 1.8, hemoglobin 7.8, platelets 22. Creatinine improved to 1.6, sodium 144, potassium 3.9. Albumin 4.4. Patient had endoscopy yesterday. Patient in contact isolation for VRE UTI. Did receive IV fluids, albumin. Will continue albumin. Discharge planning per primary team. Did explain to the patient that she will have recurrent hospitalizations for complications from liver cirrhosis. 11/17/2024 patient seen in telemetry. Liz catheter removd. She continues to report diffuse body aches and generalized pain with significant tenderness to light touch, as well as weakness and discomfort on passive movement of the limbs. Symptoms consistent with deconditioning and overall deterioration from prolonged bed rest. Will benefit from physical therapy evaluation for mobility and strength support. Blood pressure 131/86, heart rate 81. WBC 3.0, hemoglobin 7.9, platelets 23, creatinine 1.5, sodium 147, potassium 4.6, albumin 4.8. She is cleared from a nephrology standpoint. Exam Vital Signs Temp Pulse Resp BP Pulse Ox O2 Del Method O2 Flow Rate 97 F 84 18 131/86 H 97 Room Air 2 11/17/24 08:00 11/17/24 09:52 11/17/24 09:52 11/17/24 09:34 11/17/24 09:52 11/17/24 04:00 11/16/24 11:59 Narrative Exam GENERAL APPEARANCE: Patient currently seen in telemetry. Sick looking. Looks older than her stated age. Scleral icterus noted. NECK: Neck supple, no JVD or bruit. CARDIOVASCULAR: Heart regular, no murmurs. LUNGS/CHEST: Chest clear to auscultation. No rales, rhonchi, or wheezing. ABDOMEN: Soft, nontender, nondistended. No masses. Normal bowel sounds. Ascites noted. EXTREMITIES: Right arm less swollen than yesterday. Generalized body aches and tenderness to light touch noted. SKIN: Jaundiced, no new rashes. MUSCULOSKELETAL: In bed, limited movement due to pain and weakness. NEUROLOGICAL: Mild asterixis noted. More alert and awake. Objective Labs 11/18/24 04:53 11/18/24 04:53 Labs: Laboratory Results - last 24 hr 11/16/24 11/16/24 11/17/24 04:45 05:37 05:00 WBC 3.0 L D RBC 2.18 L Hgb 7.9 L Hct 24.1 L MCV 111 H MCH 36.2 H MCHC 32.8 RDW Std Deviation 71.4 H Plt Count 23 L* Neut % (Auto) 54 Lymph % (Auto) 30 [place] % (Auto) 9 Eos % (Auto) 6 Baso % (Auto) 0 Neut # (Auto) 1.6 L Lymph # (Auto) 0.9 L [place] # (Auto) 0.3 Eos # (Auto) 0.2 Baso # (Auto) 0.0 Immature Gran # (Auto) 0.00 Absolute Nucleated RBC 0.00 Immature Gran % 0 Nucleated RBC % 0 Sodium 147 H Potassium 4.6 D Chloride 110 H Carbon Dioxide 26.0 Anion Gap 11 BUN 9 Creatinine 1.5 H Estim Creat Clear Calc 35.8 L eGFR 41 L BUN/Creatinine Ratio 6 L Glucose 174 H D Calculated Osmolality 295 Calcium 9.7 Corrected Calcium 9.7 Magnesium 2.5 Total Bilirubin 5.9 H AST 31 ALT 10 Alkaline Phosphatase 47 Total Protein 6.9 Albumin 4.8 Globulin 2.1 L Albumin/Globulin Ratio 2.3 H Stool Occult Blood Positive A Misc Test Result Platelets confirmed Platelets confirmed Quality Measures Quality Measures VTE prophylaxis Assessment & Plan Assessment Current Active Medications: Generic Name Dose Route Start Last Admin Trade Name Freq PRN Reason Stop Dose Admin Acetaminophen 650 mg 11/13/24 15:30 Acetaminophen 325 Mg Tablet PO 12/13/24 15:29 Q6H PRN PAIN 1-3 OR FEVER > 101 Hydrocodone Bitart/Acetaminophen 1 tab 11/15/24 10:19 11/16/24 21:48 Hydrocodone/Apap 7.5/325 Tablet PO 11/20/24 10:18 1 tab Q6HR PRN Administration Pain 4-10 Cyanocobalamin 1,000 mcg 11/14/24 09:00 11/17/24 09:34 Cyanocobalamin 500 Mcg Tablet PO 12/14/24 08:59 1,000 mcg DAILY CELINA Administration Dextrose 25 ml 11/13/24 17:21 Dextrose 50%-Water Inj 50 Ml Syringe IV 12/13/24 17:20 Q15MIN PRN BG 50-70 responsive npo pt Dextrose 50 ml 11/13/24 17:21 Dextrose 50%-Water Inj 50 Ml Syringe IV 12/13/24 17:20 Q15MIN PRN BG <50 OR BG <70 & pt unresponsive Folic Acid 2.5 mg 11/14/24 09:00 11/17/24 09:34 Folic Acid 1 Mg Tablet PO 12/14/24 08:59 2.5 mg DAILY CELINA Administration Glucagon 1 mg 11/13/24 17:21 Glucagon Inj 1 Mg Vial IM Q15MIN PRN BG <70, and no IV access Octreotide Acetate 1,000 mcg/ 102 mls @ 5.1 mls/hr 11/14/24 11:15 11/17/24 02:43 Sodium Chloride IV 11/18/24 15:02 50 mcg/hr .Q20H CELINA 5.1 mls/hr Protocol Administration 50 MCG/HR Albumin Human 50 gm in 200 mls @ 100 mls/hr 11/14/24 09:00 11/17/24 09:33 Albuminex 25% Ivpb IV 11/18/24 22:59 100 mls/hr BID CELINA Administration Ceftriaxone Sodium/Dextrose 1 gm in 50 mls @ 100 mls/hr 11/15/24 10:10 11/17/24 09:33 Rocephin/D5w 1gm Iv Premix IV 11/22/24 10:09 100 mls/hr QDAY CELINA Administration Insulin Human Lispro 0 unit 11/16/24 10:15 11/17/24 07:56 Insulin Lispro (Admelog) 1 Unit/0.01 Ml Unit SC 12/16/24 10:14 3 unit AC CELINA Administration Protocol Lactulose 20 gm 11/17/24 21:00 Lactulose Syrup 20 Gm/30 Ml Udc PO 12/17/24 20:59 BID CELINA Protocol Midodrine 10 mg 11/17/24 14:00 Midodrine 5 Mg Tablet PO 12/17/24 13:59 TID CELINA Pantoprazole Sodium 40 mg 11/13/24 21:00 11/17/24 09:34 Pantoprazole Inj 40 Mg Vial IVP 12/13/24 20:59 40 mg BID CELINA Administration Rifaximin 550 mg 11/13/24 21:00 11/17/24 09:34 Rifaximin 550 Mg Tablet PO 11/20/24 20:59 550 mg BID CELINA Administration Spironolactone 50 mg 11/16/24 10:15 11/17/24 09:34 Spironolactone 25 Mg Tablet PO 12/16/24 10:14 50 mg DAILY CELINA Administration Plan 53-year-old female with known history of liver cirrhosis, history of variceal bleeds s/p banding with recurrent admissions for hepatic encephalopathy was admitted for acute encephalopathy, likely secondary to hepatic encephalopathy. Patient was started on lactulose and rifaximin, IV fluids, albumin. #LILY, likely prerenal azotemia Improving; creatinine down to 1.5, urine output stable. Likely secondary to poor oral intake and volume depletion. Continue albumin support Continue midodrine Maintain euvolemia; monitor daily weights and I/O Electrolytes stable; monitor mild hypernatremia (Na 147) Encourage oral fluids as tolerated Recommend PT evaluation for deconditioning Cleared from nephrology standpoint #Acute metabolic encephalopathy #Hepatic encephalopathy In the setting of underlying cirrhosis Continue with lactulose, rifaximin, albumin #Decompensated cirrhosis, with sequela #Thrombocytopenia #Coagulopathy #Hyperbilirubinemia Child-[place] class C 13 points MELD sodium 22 points with 19.6% 3-month mortality Continue lactulose, rifaximin, albumin, midodrine Outpatient hepatology follow up for liver transplant evaluation #Macrocytic anemia Chronic, stable Likely from history of alcohol abuse ----- Plan discussed with attending physician Dr. Yenny Raya MD PGY-1 Internal Medicine Attending Provider Attestation/Addendum Patient seen and examined with resident physician Dr. Raya. Note reviewed, agree with findings and recommendations. Patient with a liver cirrhosis and all the sequelae. Creatinine improving.
--- NOTE | 2024-11-17 11:38 | PC.SS ---
Rounding: On Octreotide drip until/, DC plan home after.
[2024-11-17] MEDS: MIDODRINE 5 MG TABLET 10 MG PO ×2 (13:38→21:37)
--- NOTE | 2024-11-17 19:14 | PD.IMPROG ---
Documentation for date of: 11/17/24 Subjective Subjective Interval history: Patient evaluated hemoglobin hematocrit relatively stable at 7.9 and 24.7 still low but no further drop Exam Vital Signs Temp Pulse Resp BP Pulse Ox O2 Del Method O2 Flow Rate 99.2 F 83 20 120/74 96 Room Air 2 11/17/24 16:00 11/17/24 16:00 11/17/24 16:00 11/17/24 16:00 11/17/24 16:00 11/17/24 16:00 11/16/24 11:59 Routine Respiratory Exam Comments: Normal to auscultation Routine Abdominal Exam Comments: Soft nontender Objective Labs 11/17/24 05:00 11/17/24 05:00 Labs: Laboratory Results - last 24 hr 11/17/24 05:00 WBC 3.0 L D RBC 2.18 L Hgb 7.9 L Hct 24.1 L MCV 111 H MCH 36.2 H MCHC 32.8 RDW Std Deviation 71.4 H Plt Count 23 L* Neut % (Auto) 54 Lymph % (Auto) 30 [place] % (Auto) 9 Eos % (Auto) 6 Baso % (Auto) 0 Neut # (Auto) 1.6 L Lymph # (Auto) 0.9 L [place] # (Auto) 0.3 Eos # (Auto) 0.2 Baso # (Auto) 0.0 Immature Gran # (Auto) 0.00 Absolute Nucleated RBC 0.00 Immature Gran % 0 Nucleated RBC % 0 Sodium 147 H Potassium 4.6 D Chloride 110 H Carbon Dioxide 26.0 Anion Gap 11 BUN 9 Creatinine 1.5 H Estim Creat Clear Calc 35.8 L eGFR 41 L BUN/Creatinine Ratio 6 L Glucose 174 H D Calculated Osmolality 295 Calcium 9.7 Corrected Calcium 9.7 Magnesium 2.5 Total Bilirubin 5.9 H AST 31 ALT 10 Alkaline Phosphatase 47 Total Protein 6.9 Albumin 4.8 Globulin 2.1 L Albumin/Globulin Ratio 2.3 H Misc Test Result Platelets confirmed Impressions Impression: Upper GI bleed secondary to advanced hypertensive portal gastropathy with mucosal oozing of blood Thrombocytopenia Posthemorrhagic anemia Hepatic encephalopathy improving Continue current management Assessment & Plan A&P Narrative # Hepatic encephalopathy Lactulose 20 g 4 times daily I do not think patient can drink it Recommend small NGT like 4 [place] and give the lactulose via NGT Xifaxan 550 mg Twice daily Will follow the patient Other medical problems include chronic liver disease advanced portal hypertension ascites and hepatic encephalopathy with history of GI bleed requiring palliation of the esophageal varices as well as internal hemorrhoids Will follow the patient Thank you very much for the opportunity to participate in the care of this patient Time Spent With Patient Time: Total time spent is greater than 50% in coordination of care (as documented) at patient's floor/unit and/or counseling patient:
[2024-11-17] MEDS: HYDROcodone/APAP 7.5/325 TABLET 1 TAB PO (21:37)
[2024-11-18] VITALS (13 sets, daily range): BP systolic 95–128; BP diastolic 54–71; PULSE 68–88; RESP 12–96; TEMP 36–36.6; O2SAT 91–97
[2024-11-18 05:28] LABS: Basophils # (Auto) 0.0 Thou/mm3 (0.0-0.2); Basophils % (Auto) 0 % (0-2.5); Eosinophils # (Auto) 0.3 Thou/mm3 (0.0-0.5); Eosinophils % (Auto) 6 % (0-10); Hematocrit 23.3 % (36.0-46.0); Hemoglobin 7.6 g/dL (12.0-16.0); Immature Granulocytes Auto 0.01 Thou/mm3 (0.00-0.00); Lymphocytes # (Auto) 1.3 Thou/mm3 (1.0-4.8); Lymphocytes % (Auto) 28 % (10-50); Mean Corpuscular HGB Conc 32.6 g/dl (31.0-37.0); Mean Corpuscular Hemoglobin 36.0 pg (25.0-35.0); Mean Corpuscular Volume 110 fL (80-100); Monocytes # (Auto) 0.3 Thou/mm3 (0.0-0.8); Monocytes % (Auto) 7 % (0-12); Neutrophils # (Auto) 2.6 Thou/mm3 (1.8-7.7); Neutrophils % (Auto) 59 % (37-80); Nucleated Red Blood Cell # 0.00 Thou/mm3 (0.00-0.00); Nucleated Red Blood Cell % 0 /100 WBC (0); RDW Standard Deviation 74.0 fL (36.4-46.3); Red Blood Count 2.11 Miln/mm3 (4.00-5.20); White Blood Count 4.5 Thou/mm3 (3.6-11.0)
[2024-11-18 05:29] LABS: Platelet Count 29 Thou/mm3 (140-440); Slide Review Platelets confirmed
[2024-11-18] MEDS: MIDODRINE 5 MG TABLET 10 MG PO ×3 (05:34→21:27)
[2024-11-18 06:13] LABS: Alanine Aminotransferase 9 U/L (10-49); Albumin, Serum 4.8 gm/dL (3.5-5.0); Albumin/Globulin Ratio 2.7 (1.2-2.2); Alkaline Phosphatase 45 U/L (46-116); Anion Gap 11 (7-16); Aspartate Amino Transferase 21 U/L (0-34); BUN/Creatinine Ratio 6 Ratio (12-20); Bilirubin,Total 5.2 mg/dL (0.3-1.2); Blood Urea Nitrogen 9 mg/dL (9-23); Calcium 9.5 mg/dL (8.3-10.6); Calcium (Corrected) 9.5 mg/dL (8.5-10.1); Carbon Dioxide 25.0 mMol/L (20.0-31.0); Chloride 109 mMol/L (98-107); Creatinine (Component) 1.4 mg/dL (0.6-1.3); Estimated Creatinine Clearance 38.4 mL/min (>60); Globulin 1.8 gm/dL (2.3-3.5); Glucose 144 mg/dL (74-106); Magnesium 2.4 mg/dL (1.6-2.6); Osmolality,Calculated 290 (275-295); Potassium 5.1 mMol/L (3.4-5.1); Sodium 145 mMol/L (136-145); Total Protein 6.6 gm/dL (5.7-8.2); eGFR 45 See Note
[2024-11-18] MEDS: cefTRIAXone/D5w 1gm IV premix 1 GM/50 ML BAG IV (08:49)
[2024-11-18] MEDS: LACTULOSE SYRUP 20 GM/30 ML UDC PO ×2 (08:49→21:28)
[2024-11-18] MEDS: SPIRONOLACTONE 25 MG TABLET 50 MG PO (08:50)
[2024-11-18] MEDS: FOLIC ACID 1 MG TABLET 2.5 MG PO (09:04)
[2024-11-18] MEDS: INSULIN LISPRO (AdmeLOG) 1 UNIT/0.01 ML UNIT SC ×3 (09:17→17:29)
[2024-11-18] MEDS: HYDROcodone/APAP 7.5/325 TABLET 1 TAB PO ×2 (10:24→17:30)
--- NOTE | 2024-11-18 11:27 | PD.NEPHPROG ---
Documentation for date of: 11/18/24 Subjective Subjective Interval history: Mother is informant Ms. Knight is a 54-year-old lady who has extensive history of liver cirrhosis secondary to alcoholism (under liver transplant team) recurrent admissions for hepatic encephalopathy, upper GI bleed due to varices/banding, chronic pain syndrome, DM presented to the emergency department with 2 episodes of hematemesis going on for the last few days associated with altered mental status generalized pain weakness and poor p.o. intake. Denies any fever or chills. In the ED patient was noted to be hypotensive. She was given gentle IV fluids, albumin started on home midodrine and lactulose. Admitted to telemetry. Nephrology consultation requested in view of LILY. Patient well-known to me from previous admissions. Home medications included vitamin D, furosemide, [place], last close, metformin, methocarbamol, midodrine, Remeron, Protonix, rifaximin, spironolactone. Labs showed hemoglobin 10.3, platelets 30. Sodium 140, potassium 4.5, BUN 29, creatinine 2.4 of note 10/16/2023 her creatinine is 1.0., Calcium 10.8, magnesium 2.3, total bilirubin 6.7, AST 45, ALT 18, alk phos 96, albumin 2.9, urinalysis shows 2+ blood with 20 RBCs. 11/16/2024 patient currently seen in telemetry. Resting comfortably. Labs/medications reviewed. Urine output improving. She has a Liz catheter. Blood pressure 126/73, heart rate 83. WBC 1.8, hemoglobin 7.8, platelets 22. Creatinine improved to 1.6, sodium 144, potassium 3.9. Albumin 4.4. Patient had endoscopy yesterday. Patient in contact isolation for VRE UTI. Did receive IV fluids, albumin. Will continue albumin. Discharge planning per primary team. Did explain to the patient that she will have recurrent hospitalizations for complications from liver cirrhosis. 11/18/2024 patient currently seen in telemetry. In isolation. Feeling fatigued and weak. Creatinine improving. Review of Systems Review of Systems Narrative Review of Systems: Patient denies any fever or chills. Does have significant weakness. More alert and awake. Complaining of abdominal discomfort and back pain. Did have hematemesis. Exam Vital Signs Temp Pulse Resp BP Pulse Ox O2 Del Method O2 Flow Rate 36.0 C 72 19 95/58 L 91 L Room Air 2 11/18/24 08:00 11/18/24 08:50 11/18/24 08:00 11/18/24 08:50 11/18/24 08:00 11/18/24 08:00 11/16/24 11:59 Narrative Exam GENERAL APPEARANCE: Patient currently seen in telemetry. Scleral icterus noted NECK: Neck supple, no JVD or bruit CARDIOVASCULAR: Heart regular, no murmurs LUNGS/CHEST: Chest clear to auscultation. No rales, rhonchi, wheezing ABDOMEN: Soft, nontender, nondistended. No masses. Normal bowel sounds. Ascites noted EXTREMITIES: Right arm swollen- better SKIN: Skin exam normal without any rashes. Patient has jaundice MUSCULOSKELETAL: In bed NEUROLOGICAL : Mild asterixis noted. More alert and awake Objective Labs 11/20/24 05:15 11/20/24 10:48 Labs: Laboratory Results - last 24 hr 11/18/24 04:53 WBC 4.5 D RBC 2.11 L Hgb 7.6 L Hct 23.3 L MCV 110 H MCH 36.0 H MCHC 32.6 RDW Std Deviation 74.0 H Plt Count 29 L* D Neut % (Auto) 59 Lymph % (Auto) 28 [place] % (Auto) 7 Eos % (Auto) 6 Baso % (Auto) 0 Neut # (Auto) 2.6 Lymph # (Auto) 1.3 [place] # (Auto) 0.3 Eos # (Auto) 0.3 Baso # (Auto) 0.0 Immature Gran # (Auto) 0.01 H Absolute Nucleated RBC 0.00 Immature Gran % 0 Nucleated RBC % 0 Sodium 145 Potassium 5.1 D Chloride 109 H Carbon Dioxide 25.0 Anion Gap 11 BUN 9 Creatinine 1.4 H Estim Creat Clear Calc 38.4 L eGFR 45 L BUN/Creatinine Ratio 6 L Glucose 144 H Calculated Osmolality 290 Calcium 9.5 Corrected Calcium 9.5 Magnesium 2.4 Total Bilirubin 5.2 H D AST 21 ALT 9 L Alkaline Phosphatase 45 L Total Protein 6.6 Albumin 4.8 Globulin 1.8 L Albumin/Globulin Ratio 2.7 H Misc Test Result Platelets confirmed Assessment & Plan Additional Assessment & Plan Additional Plan: 53-year-old female with known history of liver cirrhosis, history of variceal bleeds s/p banding with recurrent admissions for hepatic encephalopathy was admitted for acute encephalopathy, likely secondary to hepatic encephalopathy. Patient was started on lactulose and rifaximin ,,IV fluids, albumin LILY most likely related to prerenal azotemia. Will continue with albumin. Patient has decreased p.o. intake in the last couple of weeks. #Acute metabolic encephalopathy #Hepatic encephalopathy In the setting of underlying cirrhosis Continue with lactulose, rifaximin, albumin #Decompensated cirrhosis, with sequela #Thrombocytopenia #Coagulopathy #Hyperbilirubinemia Child-[place] class C 13 points MELD sodium 22 points with 19.6% 3-month mortality Continue lactulose, rifaximin, albumin midodrine Outpatient hepatology follow up for liver transplant evaluation #Macrocytic anemia Chronic, stable Likely from history of alcohol abuse Thank you Stephen for allowing me to participate in the care of Theresa Antonia
[2024-11-18] MEDS: LINEZOLID 600 MG TABLET PO ×2 (11:43→21:27)
--- NOTE | 2024-11-18 13:03 | ESPR_ITS ---
<Statement entered by Zach Plata MD - 11/18/24 14:58> Patient was seen and evaluated at bedside this morning. No acute overnight events. Started linezolid as patient urine culture again grew VRE And sensitive only to linezolid. Will consult ID for further recommendations. Otherwise patient has been doing well and kidney function improving Note reviewed and agree with resident's care plan as documented except as noted above. Case disclosed with attending Dr. Seymour Plata PGY2 Disclaimer: Even though this this note was dictated by speech recognition and even though it was carefully revised there may still be minor errors in ed physicians due to voice recognition software. Documentation for date of: 11/18/24 Subjective Subjective Interval history: No acute overnight events. Patient seen and examined at bedside. Continues to report extreme abdominal tenderness and skin sensitivity. Endorses urinary urgency started last night. No other complaints. WBC increased from 3-4.5. Hemoglobin stable at 7.6. Platelets 29. Potassium 5.1, creatinine improved from 1.5-1.4, urine culture grew VRE sensitive to only gentamicin synergy screen, daptomycin and linezolid. ID consulted and linezolid started. Continue lactulose, rifamixin, spironolactone, albumin and midodrine 10 mg TID. Octreotide course completed. Exam Vital Signs Temp Pulse Resp BP Pulse Ox O2 Del Method O2 Flow Rate 96.8 F 72 19 95/58 L 91 L Room Air 2 11/18/24 08:00 11/18/24 08:50 11/18/24 08:00 11/18/24 08:50 11/18/24 08:00 11/18/24 08:00 11/16/24 11:59 Narrative Exam GENERAL: AOx3, no acute distress, sitting up, fatigued HEENT: NC/AT, mucous membranes moist, bilateral sclera icteric CARDIOVASCULAR: regular rate and rhythm, S1/S2 present, 3/6 systolic murmur heard best at left 2nd intercostal space PULMONARY: clear to auscultation bilaterally, no rales/rhonchi/wheezes ABDOMINAL: soft, mild diffuse tenderness to palpation, no rebound/guarding, bowel sounds present EXTREMITIES: no peripheral edema SKIN: warm and dry, intact, no rashes NEURO: CN II-XII grossly intact, no focal deficits, alert, following commands Objective Labs 11/19/24 05:10 11/19/24 05:10 Labs: Laboratory Results - last 24 hr 11/18/24 04:53 WBC 4.5 D RBC 2.11 L Hgb 7.6 L Hct 23.3 L MCV 110 H MCH 36.0 H MCHC 32.6 RDW Std Deviation 74.0 H Plt Count 29 L* D Neut % (Auto) 59 Lymph % (Auto) 28 [place] % (Auto) 7 Eos % (Auto) 6 Baso % (Auto) 0 Neut # (Auto) 2.6 Lymph # (Auto) 1.3 [place] # (Auto) 0.3 Eos # (Auto) 0.3 Baso # (Auto) 0.0 Immature Gran # (Auto) 0.01 H Absolute Nucleated RBC 0.00 Immature Gran % 0 Nucleated RBC % 0 Sodium 145 Potassium 5.1 D Chloride 109 H Carbon Dioxide 25.0 Anion Gap 11 BUN 9 Creatinine 1.4 H Estim Creat Clear Calc 38.4 L eGFR 45 L BUN/Creatinine Ratio 6 L Glucose 144 H Calculated Osmolality 290 Calcium 9.5 Corrected Calcium 9.5 Magnesium 2.4 Total Bilirubin 5.2 H D AST 21 ALT 9 L Alkaline Phosphatase 45 L Total Protein 6.6 Albumin 4.8 Globulin 1.8 L Albumin/Globulin Ratio 2.7 H Misc Test Result Platelets confirmed Quality Measures Quality Measures VTE prophylaxis Assessment & Plan Assessment Current Active Medications: Generic Name Dose Route Start Last Admin Trade Name Charlieq PRN Reason Stop Dose Admin Acetaminophen 650 mg 11/13/24 15:30 Acetaminophen 325 Mg Tablet PO 12/13/24 15:29 Q6H PRN PAIN 1-3 OR FEVER > 101 Hydrocodone Bitart/Acetaminophen 1 tab 11/15/24 10:19 11/18/24 10:24 Hydrocodone/Apap 7.5/325 Tablet PO 11/20/24 10:18 1 tab Q6HR PRN Administration Pain 4-10 Cyanocobalamin 1,000 mcg 11/14/24 09:00 11/18/24 08:49 Cyanocobalamin 500 Mcg Tablet PO 12/14/24 08:59 1,000 mcg DAILY CELINA Administration Dextrose 25 ml 11/13/24 17:21 Dextrose 50%-Water Inj 50 Ml Syringe IV 12/13/24 17:20 Q15MIN PRN BG 50-70 responsive npo pt Dextrose 50 ml 11/13/24 17:21 Dextrose 50%-Water Inj 50 Ml Syringe IV 12/13/24 17:20 Q15MIN PRN BG <50 OR BG <70 & pt unresponsive Folic Acid 2.5 mg 11/14/24 09:00 11/18/24 09:04 Folic Acid 1 Mg Tablet PO 12/14/24 08:59 2.5 mg DAILY CELINA Administration Glucagon 1 mg 11/13/24 17:21 Glucagon Inj 1 Mg Vial IM Q15MIN PRN BG <70, and no IV access Octreotide Acetate 1,000 mcg/ 102 mls @ 5.1 mls/hr 11/14/24 11:15 11/17/24 23:56 Sodium Chloride IV 11/18/24 15:02 50 mcg/hr .Q20H CELINA 5.1 mls/hr Protocol Administration 50 MCG/HR Albumin Human 50 gm in 200 mls @ 100 mls/hr 11/14/24 09:00 11/18/24 09:15 Albuminex 25% Ivpb IV 11/18/24 22:59 100 mls/hr BID CELINA Administration Insulin Human Lispro 0 unit 11/16/24 10:15 11/18/24 11:43 Insulin Lispro (Admelog) 1 Unit/0.01 Ml Unit SC 12/16/24 10:14 2 unit AC CELINA Administration Protocol Lactulose 20 gm 11/17/24 21:00 11/18/24 08:49 Lactulose Syrup 20 Gm/30 Ml Udc PO 12/17/24 20:59 20 gm BID CELINA Administration Protocol Linezolid 600 mg 11/18/24 11:15 11/18/24 11:43 Linezolid 600 Mg Tablet PO 11/25/24 11:14 600 mg BID CELINA Administration Midodrine 10 mg 11/17/24 14:00 11/18/24 05:34 Midodrine 5 Mg Tablet PO 12/17/24 13:59 10 mg TID CELINA Administration Pantoprazole Sodium 40 mg 11/13/24 21:00 11/18/24 08:49 Pantoprazole Inj 40 Mg Vial IVP 12/13/24 20:59 40 mg BID CELINA Administration Rifaximin 550 mg 11/13/24 21:00 11/18/24 08:49 Rifaximin 550 Mg Tablet PO 11/20/24 20:59 550 mg BID CELINA Administration Spironolactone 50 mg 11/16/24 10:15 11/18/24 08:50 Spironolactone 25 Mg Tablet PO 12/16/24 10:14 50 mg DAILY CELINA Administration Plan Elzbieta Knight is a 54F pmhx of significant for decompensated alcoholic cirrhosis, multiple admissions for hepatic encephalopathy, hx of prior variceal bleeding s/p banding, chronic pain, NIDDM2 presented to [facility] 11/13 for altered mental status, weakness and 2 episodes of hematemesis admitted for hepatic encephalopathy likely secondary to decompensated alcoholic cirrhosis, found to have LILY, later developing leukopenia. #UTI, VRE #LILY, prerenal, improving #Hx of VRE UTI Patient presented with creatinine of 2.4 and BUN of 30, baseline creatinine 0.9- 1. Admission UA showed 1+ blood, 18 RBC and 5 WBC. Patient has presented with history of increased creatinine on chart review and at the time was diagnosed with LILY Ddx includes prerenal LILY secondary to dehydration with nausea vomiting and lactulose, hepatorenal isohepatic encephalopathy, UTI as patient repeat UA 2+ blood, +LE and 28 WBC UCx grew VRE sensitive only to daptomycin, gentamicin synergy screen, and linezolid Plan: - Start PO linezolid 600 mg q12h - ID consulted, recs appreciated - Strict Is/Os, daily weights - Avoid nephrotoxic medications and renally dose - If creatinine continues to uptrend, consider urine electrolytes #Hepatic encephalopathy 2/2 #Decompensated cirrhosis, likely alcoholic #Thrombocytopenia, stable #Hyperammonemia #Hypoalbuminemia #Coagulopathy Patient presented with altered mental status for the past 2 days with generalized weakness with severe asterixis. Patient has been seen multiple times at [facility] for hepatic encephalopathy. On admission, ammonia level elevated at 153, BUN 30, creatinine 2.4, troponin 0.031, platelet 32 decreased to 20, PT 17.7, INR 1.7. EKG NSR rate 81 and CXR showed poor inspiratory effort. UDS only positive for opiates. Patient is currently starting transplant process with appointments. Although patient reports being adherent to medication, patient continues to present with decompensated cirrhosis and hepatic encephalopathy. Likely that medication outpatient is not adequately decreasing ammonia levels and may need to be increased. Noted that patient is on Rifaximin 550 mg twice daily however it has not filled since 10/01/2024. Hypoalbuminemia, thrombocytopenia, coagulopathy likely secondary to cirrhosis. Admission MELD 3.0: 31, 68.3% 90 day survival. Child [place] Class C. Gloria: 32.7, poor prognosis Plan: - Rifamixin 550 mg BID per GI recs - Continue lactulose 20 g QID to BID - Continue albumin 50 g BID - Continue home spironolactone 50 mg QD and midodrine 10 mg TID - CTM mental status and repeat ammonia levels if patient continues to be altered - Consider Lasix if patient becomes clinically fluid overloaded - No platelet transfusion at this time as patient is hemodynamically stable with blood pressure holding and HR wnl, consider platelet transfusion if platelet becomes hemodynamically unstable - PT ordered, recommends home with home health #Abdominal pain #Allodynia After improvement of encephalopathy, patient reported severe abdominal pain to light touch as well as with diffuse tenderness to palpation over entire body, latter was not present on previous admissions. Per mother, patient has experienced skin sensitivity in the past. Denies weakness. Likely 2/2 cirrhosis. Suspicion of peritonitis low but cannot be excluded due to recent hematemesis and hx of variceal bleeding. Allodynia may be related to uremia vs fibromyalgia. Plan: - CTM abdominal pain - Panther Burn 7.5 q6h prn #Hematemesis #Gastritis with recent mucusal bleeding #Grade I non-bleeding esophageal varicies at lower third of esophagus #Hx of Grade III esophageal varicies s/p banding 06/13/24 Patient's mother at bedside reports 2 episodes of hematemesis. Prior to admission about a spoonful of bright red blood and first episode a week before admission with about 2-3 spoonfuls of blood. FOBT positive Patient does have a history of grade 3 esophageal varices which were banded, however hemoglobin currently stable in the 10s, which is increased from previous admission in September where hemoglobin was 8-9 and patient has not had any further hematemesis, melena or hematochezia at this time. 11/14 EGD showed grade I esophageal varicies found in lower third of esophagus, diffuse severely erythematous mucosa with stigmata of recent bleeding found in entire stomach, mucosal oozing of blood due to hypertensive portal gastropathy, duodenum normal Octreotide drip (11/13-11/18) Plan: - Continue IV pantoprazole 40 mg BID - Continue ceftriaxone 1g - GI consulted, appreciate recs: octreotide for 5 days, 2g sodium diet #Leukopenia Patient WBC on 11/15 decreased from 3.8 to 1.8 with ANC 900. Per chart review, patient has fluctuated lowest being in the 2.0's. Likely secondary to cirrhosis and VRE UTI. Plan: - Hematology consulted, recs appreciated - CTM CBC - On ceftriaxone #Urinary retention, resolved Night of admission, patient developed urinary retention with bladder scan showing 500 cc of retained urine. DDx includes urinary tract infection, encephalopathy vs home methocarbamol s/e profile Liz (11/14-11/15), s/p bladder training Plan: - CTM urine output #Chronic pain Reports chronic pain since back injury years ago, currently has been taking Panther Burn TID for at least a month. Pain on admission is generalized with tenderness to palpation over the entire body which has improved as mental status improves. Plan: - Pain scale regimen #NIDDM2 Last A1c 6.0 09/2024. On metformin 1g QD at home. Plan: -[facility] management: Lines: PIV Diet: CLD advance as tolerated Bowel: lactulose 20 mg QID GI prophylaxis: IV pantoprazole 40 mg BID DVT prophylaxis: SCDs, heparin held iso possible GIB Disposition: tele for hepatic encephalopathy on lactulose and rifamixin, octreotide for 5 days CODE STATUS: Full code Plan of care discussed with attending Dr. Ahuja, and PGY-2 Dr. Tee. Ekaterina Quintero, DO PGY-1 Internal Medicine Attending Provider Attestation/Addendum I have examined the patient, reviewed labs and imaging findings, discussed the case with the resident(s), and reviewed entered orders. I agree with the plan of care as outlined in this note, with these additional summaries/recommendations: Patient seen at bedside. No acute overnight events. Patient's encephalopathy continues to improve. Continue lactulose, rifaximin, and frequent reorientation for hepatic encephalopathy. Patient is now reporting urinary symptoms and urine culture grew vancomycin-resistant Enterococcus faecium. It is possible this is still a contaminant although given symptoms we will start IV antibiotic consult infectious disease, recommendations appreciated. Patient has acute kidney injury with creatinine 2.4 and BUN 29 on admission. Nephrology consulted and following. Most likely secondary to prerenal azotemia. Continue albumin and fluids. Renal function improving. Outpatient follow-up with paper maker for cirrhosis. Low salt diet, outpatient follow-up for vaccine series, and limit Tylenol use for underlying cirrhosis. Patient is S/P EGD 11/15/24 which revealed grade 1 esophageal varices, erythematous mucosa throughout stomach, and normal duodenum. Continue octreotide (5 days total), and PPI. Hold all chemical anticoagulation. Patient continues to have leukopenia likely related to underlying liver disease and currently improving. Continue insulin sliding scale for diabetes mellitus type 2. Patient updated on the plan and in agreement. All questions answered to satisfaction. Please see residents note for additional details and management. Dr. Seymour MD
[2024-11-18] MEDS: INSULIN DEGLUDEC 5 UNIT/0.05 ML (PER 5 UNITS) 8 UNIT SC (15:11)
--- NOTE | 2024-11-18 15:54 | PC.SS ---
Rounding: Pending ID recs tomorrow, DC plan home
--- NOTE | 2024-11-18 19:06 | ESPR_ITS ---
Documentation for date of: 11/18/24 Subjective Subjective Interval history: Gradually rising platelet count now at 29,000 Exam Vital Signs Temp Pulse Resp BP Pulse Ox O2 Del Method O2 Flow Rate 96.9 F 73 18 120/61 92 L Room Air 2 11/18/24 16:00 11/18/24 16:00 11/18/24 16:00 11/18/24 16:00 11/18/24 16:00 11/18/24 16:00 11/16/24 11:59 Objective Labs 11/18/24 04:53 11/18/24 04:53 Labs: Laboratory Results - last 24 hr 11/18/24 04:53 WBC 4.5 D RBC 2.11 L Hgb 7.6 L Hct 23.3 L MCV 110 H MCH 36.0 H MCHC 32.6 RDW Std Deviation 74.0 H Plt Count 29 L* D Neut % (Auto) 59 Lymph % (Auto) 28 [place] % (Auto) 7 Eos % (Auto) 6 Baso % (Auto) 0 Neut # (Auto) 2.6 Lymph # (Auto) 1.3 [place] # (Auto) 0.3 Eos # (Auto) 0.3 Baso # (Auto) 0.0 Immature Gran # (Auto) 0.01 H Absolute Nucleated RBC 0.00 Immature Gran % 0 Nucleated RBC % 0 Sodium 145 Potassium 5.1 D Chloride 109 H Carbon Dioxide 25.0 Anion Gap 11 BUN 9 Creatinine 1.4 H Estim Creat Clear Calc 38.4 L eGFR 45 L BUN/Creatinine Ratio 6 L Glucose 144 H Calculated Osmolality 290 Calcium 9.5 Corrected Calcium 9.5 Magnesium 2.4 Total Bilirubin 5.2 H D AST 21 ALT 9 L Alkaline Phosphatase 45 L Total Protein 6.6 Albumin 4.8 Globulin 1.8 L Albumin/Globulin Ratio 2.7 H Misc Test Result Platelets confirmed Impressions Impression: Hepatic encephalopathy improving Chronic liver disease secondary to alcohol Hypertensive portal gastropathy continue octreotide Assessment & Plan A&P Narrative # Hepatic encephalopathy Lactulose 20 g 4 times daily I do not think patient can drink it Recommend small NGT like 4 [place] and give the lactulose via NGT Xifaxan 550 mg Twice daily Will follow the patient Other medical problems include chronic liver disease advanced portal hypertension ascites and hepatic encephalopathy with history of GI bleed requiring palliation of the esophageal varices as well as internal hemorrhoids Will follow the patient Thank you very much for the opportunity to participate in the care of this patient Time Spent With Patient Time: Total time spent is greater than 50% in coordination of care (as documented) at patient's floor/unit and/or counseling patient:
[2024-11-19] VITALS (11 sets, daily range): BP systolic 111–121; BP diastolic 63–74; PULSE 63–77; RESP 15–96; TEMP 36.1–36.4; O2SAT 90–96; BMI 32.8
[2024-11-19] MEDS: MIDODRINE 5 MG TABLET 10 MG PO ×3 (05:18→21:48)
[2024-11-19 05:43] LABS: Basophils # (Auto) 0.0 Thou/mm3 (0.0-0.2); Basophils % (Auto) 0 % (0-2.5); Eosinophils # (Auto) 0.2 Thou/mm3 (0.0-0.5); Eosinophils % (Auto) 8 % (0-10); Hematocrit 23.2 % (36.0-46.0); Immature Granulocytes Auto 0.00 Thou/mm3 (0.00-0.00); Lymphocytes # (Auto) 0.6 Thou/mm3 (1.0-4.8); Lymphocytes % (Auto) 25 % (10-50); Mean Corpuscular HGB Conc 33.6 g/dl (31.0-37.0); Mean Corpuscular Hemoglobin 36.6 pg (25.0-35.0); Mean Corpuscular Volume 109 fL (80-100); Monocytes # (Auto) 0.2 Thou/mm3 (0.0-0.8); Monocytes % (Auto) 10 % (0-12); Neutrophils # (Auto) 1.5 Thou/mm3 (1.8-7.7); Neutrophils % (Auto) 57 % (37-80); Nucleated Red Blood Cell # 0.00 Thou/mm3 (0.00-0.00); Nucleated Red Blood Cell % 0 /100 WBC (0); RDW Standard Deviation 73.3 fL (36.4-46.3); Red Blood Count 2.13 Miln/mm3 (4.00-5.20); White Blood Count 2.5 Thou/mm3 (3.6-11.0)
[2024-11-19 06:06] LABS: Hemoglobin 7.8 g/dL (12.0-16.0); Platelet Count 21 Thou/mm3 (140-440)
[2024-11-19 06:27] LABS: Slide Review Platelets confirmed
[2024-11-19 06:29] LABS: Alanine Aminotransferase 7 U/L (10-49); Albumin, Serum 5.3 gm/dL (3.5-5.0); Albumin/Globulin Ratio 3.1 (1.2-2.2); Alkaline Phosphatase 50 U/L (46-116); Anion Gap 11 (7-16); Aspartate Amino Transferase 23 U/L (0-34); BUN/Creatinine Ratio 7 Ratio (12-20); Bilirubin,Total 5.1 mg/dL (0.3-1.2); Blood Urea Nitrogen 9 mg/dL (9-23); Calcium 9.9 mg/dL (8.3-10.6); Calcium (Corrected) 9.9 mg/dL (8.5-10.1); Carbon Dioxide 26.5 mMol/L (20.0-31.0); Chloride 109 mMol/L (98-107); Creatinine (Component) 1.3 mg/dL (0.6-1.3); Estimated Creatinine Clearance 43.8 mL/min (>60); Globulin 1.7 gm/dL (2.3-3.5); Glucose 168 mg/dL (74-106); Magnesium 2.5 mg/dL (1.6-2.6); Osmolality,Calculated 293 (275-295); Potassium 5.2 mMol/L (3.4-5.1); Sodium 146 mMol/L (136-145); Total Protein 7.0 gm/dL (5.7-8.2); eGFR 49 See Note
[2024-11-19] MEDS: LINEZOLID 600 MG TABLET PO ×2 (08:08→21:49)
[2024-11-19] MEDS: FOLIC ACID 1 MG TABLET 2.5 MG PO (08:09)
[2024-11-19] MEDS: INSULIN DEGLUDEC 5 UNIT/0.05 ML (PER 5 UNITS) 8 UNIT SC (08:10)
[2024-11-19] MEDS: INSULIN LISPRO (AdmeLOG) 1 UNIT/0.01 ML UNIT SC ×3 (08:10→17:22)
--- NOTE | 2024-11-19 08:34 | PD.RESPRO ---
Documentation for date of: 11/19/24 Subjective Subjective Interval history: Ms. Knight is a 54-year-old lady who has extensive history of liver cirrhosis secondary to alcoholism (under liver transplant team) recurrent admissions for hepatic encephalopathy, upper GI bleed due to varices/banding, chronic pain syndrome, DM presented to the emergency department with 2 episodes of hematemesis going on for the last few days associated with altered mental status generalized pain weakness and poor p.o. intake. Denies any fever or chills. In the ED patient was noted to be hypotensive. She was given gentle IV fluids, albumin started on home midodrine and lactulose. Admitted to telemetry. Nephrology consultation requested in view of LILY. Patient well-known to me from previous admissions. Home medications included vitamin D, furosemide, [place], last close, metformin, methocarbamol, midodrine, Remeron, Protonix, rifaximin, spironolactone. Labs showed hemoglobin 10.3, platelets 30. Sodium 140, potassium 4.5, BUN 29, creatinine 2.4 of note 10/16/2023 her creatinine is 1.0., Calcium 10.8, magnesium 2.3, total bilirubin 6.7, AST 45, ALT 18, alk phos 96, albumin 2.9, urinalysis shows 2+ blood with 20 RBCs. 11/16/2024 patient currently seen in telemetry. Resting comfortably. Labs/medications reviewed. Urine output improving. She has a Liz catheter. Blood pressure 126/73, heart rate 83. WBC 1.8, hemoglobin 7.8, platelets 22. Creatinine improved to 1.6, sodium 144, potassium 3.9. Albumin 4.4. Patient had endoscopy yesterday. Patient in contact isolation for VRE UTI. Did receive IV fluids, albumin. Will continue albumin. Discharge planning per primary team. Did explain to the patient that she will have recurrent hospitalizations for complications from liver cirrhosis. 11/17/2024 patient seen in telemetry. Liz catheter removd. She continues to report diffuse body aches and generalized pain with significant tenderness to light touch, as well as weakness and discomfort on passive movement of the limbs. Symptoms consistent with deconditioning and overall deterioration from prolonged bed rest. Will benefit from physical therapy evaluation for mobility and strength support. Blood pressure 131/86, heart rate 81. WBC 3.0, hemoglobin 7.9, platelets 23, creatinine 1.5, sodium 147, potassium 4.6, albumin 4.8. She is cleared from a nephrology standpoint. 11/19/2024 patient seen in telemetry this morning. Reports feeling overall better with resolution of body aches, only mild back pain at this time. Completed 5-day octreotide course. Urine culture from 11/17 positive for VRE; started on linezolid yesterday per primary team. Liz catheter removed; patient voiding spontaneously with adequate output. BP 127/74, HR 82. Labs: Hgb 7.8, WBC 2.5, Plt 21, Na 146, K 5.2, Cl 109, Cr 1.3, total bilirubin 5.1, albumin 5.3. Will monitor potassium closely. Recommend holding spironolactone given hyperkalemia and improving renal function. Exam Vital Signs Temp Pulse Resp BP Pulse Ox O2 Del Method O2 Flow Rate 97.6 F 77 18 121/74 95 Room Air 2 11/19/24 04:00 11/19/24 06:35 11/19/24 06:35 11/19/24 05:18 11/19/24 04:00 11/19/24 04:00 11/16/24 11:59 Narrative Exam GENERAL APPEARANCE: Patient currently seen in telemetry, resting comfortably. Appears weak but improved from prior days. Scleral icterus noted. NECK: Neck supple, no JVD or bruit. CARDIOVASCULAR: Heart regular, no murmurs. LUNGS/CHEST: Clear to auscultation. No rales, rhonchi, or wheezing. ABDOMEN: Soft, nontender, nondistended. Normal bowel sounds. Ascites present. EXTREMITIES: Right arm swelling resolved. No new edema. SKIN: Jaundiced, no new lesions or rashes. MUSCULOSKELETAL: In bed, mild back discomfort on palpation. NEUROLOGICAL: Awake, alert, oriented ?3. No asterixis. Objective Labs 11/19/24 05:10 11/19/24 08:25 Labs: Laboratory Results - last 24 hr 11/19/24 05:10 WBC 2.5 L D RBC 2.13 L Hgb 7.8 L Hct 23.2 L MCV 109 H MCH 36.6 H MCHC 33.6 RDW Std Deviation 73.3 H Plt Count 21 L* D Neut % (Auto) 57 Lymph % (Auto) 25 [place] % (Auto) 10 Eos % (Auto) 8 Baso % (Auto) 0 Neut # (Auto) 1.5 L Lymph # (Auto) 0.6 L [place] # (Auto) 0.2 Eos # (Auto) 0.2 Baso # (Auto) 0.0 Immature Gran # (Auto) 0.00 Absolute Nucleated RBC 0.00 Immature Gran % 0 Nucleated RBC % 0 Sodium 146 H Potassium 5.2 H Chloride 109 H Carbon Dioxide 26.5 Anion Gap 11 BUN 9 Creatinine 1.3 Estim Creat Clear Calc 43.8 L eGFR 49 L BUN/Creatinine Ratio 7 L Glucose 168 H Calculated Osmolality 293 Calcium 9.9 Corrected Calcium 9.9 Magnesium 2.5 Total Bilirubin 5.1 H AST 23 ALT 7 L Alkaline Phosphatase 50 Total Protein 7.0 Albumin 5.3 H D Globulin 1.7 L Albumin/Globulin Ratio 3.1 H Misc Test Result Platelets confirmed Quality Measures Quality Measures VTE prophylaxis Assessment & Plan Assessment Current Active Medications: Generic Name Dose Route Start Last Admin Trade Name Freq PRN Reason Stop Dose Admin Acetaminophen 650 mg 11/13/24 15:30 Acetaminophen 325 Mg Tablet PO 12/13/24 15:29 Q6H PRN PAIN 1-3 OR FEVER > 101 Hydrocodone Bitart/Acetaminophen 1 tab 11/15/24 10:19 11/18/24 17:30 Hydrocodone/Apap 7.5/325 Tablet PO 11/20/24 10:18 1 tab Q6HR PRN Administration Pain 4-10 Cyanocobalamin 1,000 mcg 11/14/24 09:00 11/19/24 08:09 Cyanocobalamin 500 Mcg Tablet PO 12/14/24 08:59 1,000 mcg DAILY CELINA Administration Dextrose 25 ml 11/13/24 17:21 Dextrose 50%-Water Inj 50 Ml Syringe IV 12/13/24 17:20 Q15MIN PRN BG 50-70 responsive npo pt Dextrose 50 ml 11/13/24 17:21 Dextrose 50%-Water Inj 50 Ml Syringe IV 12/13/24 17:20 Q15MIN PRN BG <50 OR BG <70 & pt unresponsive Folic Acid 2.5 mg 11/14/24 09:00 11/19/24 08:09 Folic Acid 1 Mg Tablet PO 12/14/24 08:59 2.5 mg DAILY CELINA Administration Glucagon 1 mg 11/13/24 17:21 Glucagon Inj 1 Mg Vial IM Q15MIN PRN BG <70, and no IV access Insulin Degludec 8 unit 11/18/24 14:30 11/19/24 08:10 Insulin Degludec 5 Unit/0.05 Ml (Per 5 Units) SC 12/18/24 14:29 8 unit QDAY CELINA Administration Insulin Human Lispro 0 unit 11/16/24 10:15 11/19/24 08:10 Insulin Lispro (Admelog) 1 Unit/0.01 Ml Unit SC 12/16/24 10:14 1 unit AC CELINA Administration Protocol Lactulose 20 gm 11/17/24 21:00 11/19/24 08:11 Lactulose Syrup 20 Gm/30 Ml Udc PO 12/17/24 20:59 Not Given BID CELINA Protocol Linezolid 600 mg 11/18/24 11:15 11/19/24 08:08 Linezolid 600 Mg Tablet PO 11/25/24 11:14 600 mg BID CELINA Administration Midodrine 10 mg 11/17/24 14:00 11/19/24 05:18 Midodrine 5 Mg Tablet PO 12/17/24 13:59 10 mg TID CELINA Administration Pantoprazole Sodium 40 mg 11/13/24 21:00 11/19/24 08:09 Pantoprazole Inj 40 Mg Vial IVP 12/13/24 20:59 40 mg BID CELINA Administration Rifaximin 550 mg 11/13/24 21:00 11/19/24 08:09 Rifaximin 550 Mg Tablet PO 11/20/24 20:59 550 mg BID CELINA Administration Spironolactone 50 mg 11/16/24 10:15 11/18/24 08:50 Spironolactone 25 Mg Tablet PO 12/16/24 10:14 50 mg On Hold: 11/19/24 06:52 DAILY CELINA Administration Plan 53-year-old female with decompensated alcoholic cirrhosis and recurrent hepatic encephalopathy, admitted for hematemesis and altered mental status, found to have LILY and now VRE UTI. #LILY, likely prerenal azotemia Improving; creatinine down to 1.3, urine output stable. Likely secondary to poor oral intake and volume depletion. Continue albumin support Continue midodrine Maintain euvolemia; monitor daily weights and I/O Electrolytes stable but mild hyperkalemia (K 5.2) noted Hold spironolactone temporarily Encourage oral fluids as tolerated Cleared from nephrology standpoint #Acute metabolic encephalopathy #Hepatic encephalopathy In the setting of underlying cirrhosis Continue with lactulose, rifaximin, albumin #Decompensated cirrhosis, with sequela #Thrombocytopenia #Coagulopathy #Hyperbilirubinemia [place] class C 13 points Completed 5-day octreotide course for varices. MELD sodium 22 points with 19.6% 3-month mortality Continue lactulose, rifaximin, albumin, midodrine Outpatient hepatology follow up for liver transplant evaluation #Macrocytic anemia Chronic, stable Likely from history of alcohol abuse ----- Plan discussed with attending physician Dr. Yenny Raya MD PGY-1 Internal Medicine Attending Provider Attestation/Addendum Patient seen and examined with resident physician Dr. Raya. Note reviewed, agree with findings and recommendations. Urine cultures positive for VRE. Is in isolation.
[2024-11-19 08:50] LABS: Potassium 5.2 mMol/L (3.4-5.1)
--- NOTE | 2024-11-19 09:08 | CHAP ---
Addendum entered by Seth Mcginnis 11/19/24 09:13: I clicked OK before I had put in the correct date and time. The patient was visited on 11/19/24 at 10:30. I also redid the charting, so this will be listed twice. Original Note: Patient was visited by the Spiritual Care Volunteer who prayed for them. (Volunteer was in the hospital from 09:30-10:15).
[2024-11-19] MEDS: HYDROcodone/APAP 7.5/325 TABLET 1 TAB PO ×2 (09:47→17:21)
--- NOTE | 2024-11-19 11:07 | PC.SS ---
Rounding: Pending ID reccs, DC plan home.
--- NOTE | 2024-11-19 11:24 | ESCONSULT_ITS ---
<Statement entered by Oj Castellanos MD - 11/26/24 11:50> pt seen with resident. all findings confirmed. see additional notes for details. HPI Data of Consult Requesting Physician: Stephen Ahuja MD Admitting Provider: Stephen Ahuja MD Attending Provider: Stephen Ahuja MD Primary Care Provider: Physician No Primary/Family Consult Narrative Reason for consult: Complicated VRE UTI History of present illness: Ms. Knight is a 54-year-old female with past medical history significant for liver cirrhosis secondary to alcoholism, hepatic encephalopathy, upper GI bleed due to varices, chronic pain syndrome, diabetes who presented to the ED with hematemesis and admitted for further management of hepatic encephalopathy. Patient continues to have chronic back pain otherwise denies any other complaints at this time. Of note, patient states that her chronic back problems started due to an accident that occurred at work. Patient is pending back surgery. Past medical history: As mentioned above Past surgical history: I&D right labial abscess, appendectomy, 2 C-sections, tubal laparoscopic surgeries for endometriosis Family history: Positive for cancer in many relatives Allergies: Allergic to latex Immunizations: Patient states that her last tetanus shot was 2 years ago, and takes annual flu shots and has had 4 COVID vaccines. Patient does not recall having the pneumonia vaccine. ID was consulted for complicated VRE UT in the setting of cirrhosis. cc:: cc: Stephen Ahuja MD Review of Systems Review of Systems Systems Reviewed: All systems reviewed, normal except as documented Exam Vital Signs Temp Pulse Resp BP Pulse Ox O2 Del Method O2 Flow Rate 97.1 F 74 16 118/71 93 L Room Air 2 11/19/24 08:00 11/19/24 08:00 11/19/24 08:00 11/19/24 08:00 11/19/24 08:00 11/19/24 08:00 11/16/24 11:59 Narrative Exam General Appearance: Pt appears older than stated age, slow to conversation, however in no acute distress. HEENT: NC/AT, no scleral icterus, no conjunctival pallor, MMM Lungs: CTAB, no wheezes or crackles appreciated CVS: RRR, S1/S2 heard, no murmurs or rubs appreciated ABD: Soft, non-tender, non-distended, BS + in all 4 quadrants; EXT: Tender to palpation in lower back, pulses bilateral lower extremities. No pedal edema noted. SKIN: Skin exam normal without any rashes. Neuro: A&O x 3. No gross neurological deficits. Psych: Appropriate mood and affect Results Labs 11/26/24 07:11 11/26/24 07:11 Labs: Short CBC 11/19/24 Range/Units 05:10 WBC 2.5 L D (3.6-11.0) Thou/mm3 Hgb 7.8 L (12.0-16.0) g/dL Hct 23.2 L (36.0-46.0) % Plt Count 21 L* D (140-440) Thou/mm3 BMP 11/19/24 11/19/24 05:10 08:25 Sodium 146 H Potassium 5.2 H 5.2 H Chloride 109 H Carbon Dioxide 26.5 BUN 9 Creatinine 1.3 Glucose 168 H Calcium 9.9 Liver Function 11/19/24 Range/Units 05:10 Total Bilirubin 5.1 H (0.3-1.2) mg/dL AST 23 (0-34) U/L ALT 7 L (10-49) U/L Alkaline Phosphatase 50 (46-116) U/L Albumin 5.3 H D (3.5-5.0) gm/dL Quality Measures Quality Measures VTE prophylaxis Medications Home Medications and Allergies Home Medications ?Medication ?Instructions ?Recorded ?Confirmed ?Type spironolactone 50 mg tablet 50 mg PO DAILY 10/11/24 History Held on 11/21/24. Instructions: Resume on 11/28/24. Hold until follow up with nephrology/PCP metformin 1,000 mg tablet 1,000 mg PO QDAY 11/14/24 History Held on 11/21/24. Instructions: Resume on 11/28/24. hold until follow up with PCP midodrine 10 mg tablet 10 mg PO Q8H 11/14/24 History Allergies Allergy/AdvReac Type Severity Reaction Status Date / Time latex Allergy Severe Hives Verified 10/22/24 09:29 Visit Medications Acetaminophen (Acetaminophen 325 Mg Tablet) 650 mg PO Q6H PRN PRN Reason: PAIN 1-3 OR FEVER > 101 Stop: 12/13/24 15:29 Hydrocodone Bitart/Acetaminophen (Hydrocodone/Apap 7.5/325 Tablet) 1 tab PO Q6HR PRN PRN Reason: Pain 4-10 Stop: 11/20/24 10:18 Last Admin: 11/19/24 09:47 Dose: 1 tab Cyanocobalamin (Cyanocobalamin 500 Mcg Tablet) 1,000 mcg PO DAILY [facility] Stop: 12/14/24 08:59 Last Admin: 11/19/24 08:09 Dose: 1,000 mcg Dextrose (Dextrose 50%-Water Inj 50 Ml Syringe) 25 ml IV Q15MIN PRN PRN Reason: BG 50-70 responsive npo pt Stop: 12/13/24 17:20 Dextrose (Dextrose 50%-Water Inj 50 Ml Syringe) 50 ml IV Q15MIN PRN PRN Reason: BG <50 OR BG <70 & pt unresponsive Stop: 12/13/24 17:20 Folic Acid (Folic Acid 1 Mg Tablet) 2.5 mg PO DAILY [facility] Stop: 12/14/24 08:59 Last Admin: 11/19/24 08:09 Dose: 2.5 mg Glucagon (Glucagon Inj 1 Mg Vial) 1 mg IM Q15MIN PRN PRN Reason: BG <70, and no IV access Insulin Degludec (Insulin Degludec 5 Unit/0.05 Ml (Per 5 Units)) 8 unit SC QDAY [facility] Stop: 12/18/24 14:29 Last Admin: 11/19/24 08:10 Dose: 8 unit Insulin Human Lispro (Insulin Lispro (Admelog) 1 Unit/0.01 Ml Unit) 0 unit SC AC [facility]; Protocol Stop: 12/16/24 10:14 Last Admin: 11/19/24 08:10 Dose: 1 unit Lactulose (Lactulose Syrup 20 Gm/30 Ml Udc) 20 gm PO TID [facility]; Protocol Stop: 12/19/24 13:59 Linezolid (Linezolid 600 Mg Tablet) 600 mg PO BID [facility] Stop: 11/25/24 11:14 Last Admin: 11/19/24 08:08 Dose: 600 mg Midodrine (Midodrine 5 Mg Tablet) 10 mg PO TID [facility] Stop: 12/17/24 13:59 Last Admin: 11/19/24 05:18 Dose: 10 mg Pantoprazole Sodium (Pantoprazole Inj 40 Mg Vial) 40 mg IVP BID [facility] Stop: 12/13/24 20:59 Last Admin: 11/19/24 08:09 Dose: 40 mg Rifaximin (Rifaximin 550 Mg Tablet) 550 mg PO BID [facility] Stop: 11/20/24 20:59 Last Admin: 11/19/24 08:09 Dose: 550 mg Spironolactone (Spironolactone 25 Mg Tablet) 50 mg PO DAILY [facility] On Hold: 11/19/24 06:52 Stop: 12/16/24 10:14 Last Admin: 11/18/24 08:50 Dose: 50 mg Discontinued Medications Hydrocodone Bitart/Acetaminophen (Hydrocodone/Apap 5/325 Tablet) 1 tab PO Q4HR PRN PRN Reason: Pain Scale 4-10 Stop: 11/18/24 15:29 Last Admin: 11/15/24 09:49 Dose: 1 tab Benzocaine (Benzocaine 20% (Hurricaine) [place] 1 Dose) 0 dose TOP X1 ONE Stop: 11/15/24 18:25 Diphenhydramine HCl (Diphenhydramine Inj 50 Mg/Ml Vial) 25 mg IVP [id number] PRN PRN Reason: MODERATE SEDATION Stop: 11/15/24 20:24 Fentanyl Citrate (Fentanyl Cit Inj 50 Mcg/Ml Amp 2ml) 50 mcg IVP Q2M PRN PRN Reason: MODERATE SEDATION Stop: 11/15/24 20:24 Hydromorphone HCl (Hydromorphone Inj 2 Mg/Ml Vial) 0.25 mg IVP X1 ONE Stop: 11/14/24 01:31 Last Admin: 11/14/24 01:36 Dose: 0.25 mg Lactated Ringer's (Lactated Ringers) 1,000 mls @ 75 mls/hr IV .[id number] [facility] Stop: 12/13/24 14:59 Last Admin: 11/14/24 05:32 Dose: 75 mls/hr Octreotide Acetate 1,000 mcg/ (Sodium Chloride) 102 mls @ 5.1 mls/hr IV .Q20H CELINA; Protocol Stop: 11/18/24 15:02 Last Admin: 11/17/24 23:56 Dose: 50 mcg/hr, 5.1 mls/hr Ceftriaxone Sodium/Dextrose (Rocephin/D5w 1gm Iv Premix) 1 gm in 50 mls @ 100 mls/hr IV QDAY [facility] Stop: 11/20/24 15:09 Last Admin: 11/14/24 09:05 Dose: 100 mls/hr Octreotide Acetate 1,000 mcg/ (Sodium Chloride) 102 mls @ 5.1 mls/hr IV .Q20H ONE; Protocol Stop: 11/14/24 11:14 Last Admin: 11/13/24 16:20 Dose: 50 mcg/hr, 5.1 mls/hr Albumin Human (Albuminex 25% Ivpb) 50 gm in 200 mls @ 200 mls/hr IV BID [facility] Stop: 11/18/24 21:59 Albumin Human (Albuminex 25% Ivpb) 25 gm in 100 mls @ 100 mls/hr IV BID [facility] Stop: 12/14/24 08:59 Albumin Human (Albuminex 25% Ivpb) 50 gm in 200 mls @ 100 mls/hr IV BID [facility] Stop: 11/18/24 22:59 Last Admin: 11/18/24 21:28 Dose: 100 mls/hr Magnesium Sulfate (Magnesium Sulfate Ivpb) 2 gm in 50 mls @ 25 mls/hr IV X1 ONE Stop: 11/15/24 09:33 Last Admin: 11/15/24 09:50 Dose: 25 mls/hr Ceftriaxone Sodium/Dextrose (Rocephin/D5w 1gm Iv Premix) 1 gm in 50 mls @ 100 mls/hr IV QDAY [facility] Stop: 11/22/24 10:09 Last Admin: 11/18/24 08:49 Dose: 100 mls/hr Sodium Chloride (Ns) 1,000 mls @ 80 mls/hr IV .[id number] [facility] Stop: 11/16/24 00:23 Last Admin: 11/15/24 11:59 Dose: 80 mls/hr Insulin Human Lispro (Insulin Lispro (Admelog) 1 Unit/0.01 Ml Unit) 0 unit SC Q6HR [facility]; Protocol Stop: 12/13/24 17:59 Last Admin: 11/16/24 05:28 Dose: 2 unit Lactulose (Lactulose Syrup 20 Gm/30 Ml Udc) 20 gm PO X1 ONE; Protocol Stop: 11/13/24 13:02 Last Admin: 11/13/24 13:15 Dose: 20 gm Lactulose (Lactulose Syrup 20 Gm/30 Ml Udc) 30 gm PO TID CELINA; Protocol Stop: 12/13/24 21:59 Lactulose (Lactulose Syrup 10 Gm/15 Ml) 200 gm NM TID CELINA; Protocol Stop: 12/13/24 21:59 Last Admin: 11/14/24 05:33 Dose: 200 gm Lactulose (Lactulose Syrup 20 Gm/30 Ml Udc) 20 gm PO QID CELINA; Protocol Stop: 12/14/24 11:59 Last Admin: 11/17/24 05:16 Dose: 20 gm Lactulose (Lactulose Syrup 20 Gm/30 Ml Udc) 20 gm PO BID CELINA; Protocol Stop: 12/17/24 20:59 Last Admin: 11/19/24 08:11 Dose: Not Given Lidocaine (Lidocaine 5% 1 Patch) 1 patch TOP X1 ONE Stop: 11/14/24 06:22 Last Admin: 11/14/24 06:27 Dose: 1 patch Lidocaine (Lidocaine 5% 1 Patch) 1 patch TOP X1 ONE Stop: 11/15/24 08:35 Last Admin: 11/15/24 09:49 Dose: 1 patch Midazolam HCl (Midazolam Inj 1 Mg/Ml Vial 2 Ml) 2 mg IVP Q2M PRN PRN Reason: Moderate Sedation Stop: 11/15/24 20:24 Midodrine (Midodrine 5 Mg Tablet) 5 mg PO TID CELINA Stop: 12/14/24 08:29 Last Admin: 11/14/24 09:03 Dose: 5 mg Midodrine (Midodrine 5 Mg Tablet) 5 mg PO TID CELINA Stop: 12/14/24 08:29 Last Admin: 11/17/24 05:16 Dose: 5 mg Pantoprazole Sodium (Pantoprazole 40 Mg Tablet) 40 mg PO BID CELINA Stop: 12/13/24 20:59 Potassium Chloride (Potassium Chloride 10% 20 Meq/15 Ml Udc) 20 meq PO X1 ONE Stop: 11/15/24 07:30 Last Admin: 11/15/24 09:50 Dose: 20 meq Potassium Chloride (Potassium Chloride 20 Meq Tabcr) 20 meq PO X1 ONE Stop: 11/16/24 07:35 Last Admin: 11/16/24 09:11 Dose: 20 meq Assessment & Plan Plan Ms. Knight is a 54-year-old female with past medical history significant for liver cirrhosis secondary to alcoholism, hepatic encephalopathy, upper GI bleed due to varices, chronic pain syndrome, diabetes who presented to the ED with hematemesis and admitted for further management of hepatic encephalopathy. ID was consulted for complicated VRE UT in the setting of cirrhosis. #Complicated VRE UTI #History of VRE UTI Patient currently denies any symptoms of suprapubic pain or dysuria. Pt has been on p.o. linezolid 600 mg twice daily and has been afebrile. Based on urine culture sensitive only to daptomycin, gentamicin and linezolid. Will recommend to continue with linezolid for total of 7 days. #LILY #Hematuria secondary to thrombocytopenia #Hepatic encephalopathy secondary to decompensated cirrhosis #Thrombocytopenia #Hyperammonemia #Hypoalbuminemia #Coagulopathy #Abdominal pain #Allodynia #Hematemesis #Gastritis with recurrent mucosal bleeding #Esophageal varices grade 3 #Leukopenia #Urinary retention #Chronic pain #Type 2 diabetes -Treatment as per primary team Patient's plan and care discussed with my attending, Dr. Emanuel Patton MD PGY-3
--- NOTE | 2024-11-19 11:30 | ESPR_ITS ---
Subjective Subjective Interval history: 54 y/o with cirrhosis. Exam Vital Signs Temp Pulse Resp BP Pulse Ox O2 Del Method O2 Flow Rate 97.1 F 74 16 118/71 93 L Room Air 2 11/19/24 08:00 11/19/24 08:00 11/19/24 08:00 11/19/24 08:00 11/19/24 08:00 11/19/24 08:00 11/16/24 11:59 Narrative Exam see dictation Objective - Internal Medicine Labs 11/19/24 05:10 11/19/24 08:25 Labs: Laboratory Results - last 24 hr 11/19/24 11/19/24 05:10 08:25 WBC 2.5 L D RBC 2.13 L Hgb 7.8 L Hct 23.2 L MCV 109 H MCH 36.6 H MCHC 33.6 RDW Std Deviation 73.3 H Plt Count 21 L* D Neut % (Auto) 57 Lymph % (Auto) 25 [place] % (Auto) 10 Eos % (Auto) 8 Baso % (Auto) 0 Neut # (Auto) 1.5 L Lymph # (Auto) 0.6 L [place] # (Auto) 0.2 Eos # (Auto) 0.2 Baso # (Auto) 0.0 Immature Gran # (Auto) 0.00 Absolute Nucleated RBC 0.00 Immature Gran % 0 Nucleated RBC % 0 Sodium 146 H Potassium 5.2 H 5.2 H Chloride 109 H Carbon Dioxide 26.5 Anion Gap 11 BUN 9 Creatinine 1.3 Estim Creat Clear Calc 43.8 L eGFR 49 L BUN/Creatinine Ratio 7 L Glucose 168 H Calculated Osmolality 293 Calcium 9.9 Corrected Calcium 9.9 Magnesium 2.5 Total Bilirubin 5.1 H AST 23 ALT 7 L Alkaline Phosphatase 50 Total Protein 7.0 Albumin 5.3 H D Globulin 1.7 L Albumin/Globulin Ratio 3.1 H Misc Test Result Platelets confirmed Assessment & Plan A&P Narrative uti , mild with vre as only germ found po linezolid ok for this for total of 7d, home at your discretion. will see again prn Time Spent With Patient Time: Total time spent is greater than 50% in coordination of care (as documented) at patient's floor/unit and/or counseling patient:
--- NOTE | 2024-11-19 13:10 | ESPR_ITS ---
<Statement entered by Zach Plata MD - 11/19/24 16:42> Patient was seen and evaluated at bedside this morning. No acute overnight events. Patient today was noticed to have some more noticeable tremors on upper extremities with extended arms therefore at this time we will increase patient's lactulose to 20 3 times daily. Physical therapy will work with patient and patient declined going to the retirement facility. Infectious disease recommends to continue linezolid for total of 7 days. Held spironolactone in the setting of uptrending potassium. Expect discharge in the next 24 to 48 hours. I have reviewed the note and agree with the resident's assessment & plan with exceptions as below. I have personally reviewed labs, imaging, home meds/prior records, examined the patient, formulated and discussed management plan with my attending Case disclosed with attending Dr. Seymour Plata PGY2 Disclaimer: Even though this this note was dictated by speech recognition and even though it was carefully revised there may still be minor errors in occupational health nurse due to voice recognition software. Documentation for date of: 11/19/24 Subjective Subjective Interval history: No acute overnight events. Patient seen and examined at bedside. Patient is feeling slightly worse than yesterday, complains of tremors and overall general weakness. Reports continued abdominal pain, tender to mild palpation however better skin sensitivity. Per mom at bedside, patient has good days and bad days in which sometimes she is able to transfer so from the bed to to the commode and other times where she requires assistance to the commode. PureWick catheter on, patient reports resolution in urinary urgency. Noted that collection and pure wick has pink tinge. Vitals and labs reviewed. Telemetry reviewed sinus rhythm 60s to 70s. WBC 2.5, hemoglobin stable at 7.8, platelets stable at 21. Sodium 146, potassium 5.2. Creatinine 1.3. T. bili stable elevated 5.1. ID consulted, recommended linezolid for 7 days. Lactulose increased from BID to TID due to worsening weakness and new tremors. Lactulose increased from spironolactone held due to hyperkalemia. Albumin discontinued. Will continue to monitor hematuria, leg Liz secondary to VRE UTI and/or thrombopenia. Exam Vital Signs Temp Pulse Resp BP Pulse Ox O2 Del Method O2 Flow Rate 97.1 F 74 16 118/71 93 L Room Air 2 11/19/24 08:00 11/19/24 08:00 11/19/24 08:00 11/19/24 08:00 11/19/24 08:00 11/19/24 08:00 11/16/24 11:59 Narrative Exam GENERAL: AOx3, no acute distress, sitting up, fatigued HEENT: NC/AT, mucous membranes moist, bilateral sclera icteric CARDIOVASCULAR: regular rate and rhythm, S1/S2 present, 3/6 systolic murmur heard best at left 2nd intercostal space PULMONARY: clear to auscultation bilaterally, no rales/rhonchi/wheezes ABDOMINAL: soft, mild diffuse tenderness to palpation, no rebound/guarding, bowel sounds present EXTREMITIES: no peripheral edema SKIN: warm and dry, intact, no rashes NEURO: CN II-XII grossly intact, no focal deficits, alert, following commands, + BUE tremors at rest Objective Labs 11/19/24 05:10 11/19/24 08:25 Labs: Laboratory Results - last 24 hr 11/19/24 11/19/24 05:10 08:25 WBC 2.5 L D RBC 2.13 L Hgb 7.8 L Hct 23.2 L MCV 109 H MCH 36.6 H MCHC 33.6 RDW Std Deviation 73.3 H Plt Count 21 L* D Neut % (Auto) 57 Lymph % (Auto) 25 [place] % (Auto) 10 Eos % (Auto) 8 Baso % (Auto) 0 Neut # (Auto) 1.5 L Lymph # (Auto) 0.6 L [place] # (Auto) 0.2 Eos # (Auto) 0.2 Baso # (Auto) 0.0 Immature Gran # (Auto) 0.00 Absolute Nucleated RBC 0.00 Immature Gran % 0 Nucleated RBC % 0 Sodium 146 H Potassium 5.2 H 5.2 H Chloride 109 H Carbon Dioxide 26.5 Anion Gap 11 BUN 9 Creatinine 1.3 Estim Creat Clear Calc 43.8 L eGFR 49 L BUN/Creatinine Ratio 7 L Glucose 168 H Calculated Osmolality 293 Calcium 9.9 Corrected Calcium 9.9 Magnesium 2.5 Total Bilirubin 5.1 H AST 23 ALT 7 L Alkaline Phosphatase 50 Total Protein 7.0 Albumin 5.3 H D Globulin 1.7 L Albumin/Globulin Ratio 3.1 H Misc Test Result Platelets confirmed Quality Measures Quality Measures VTE prophylaxis Assessment & Plan Assessment Current Active Medications: Generic Name Dose Route Start Last Admin Trade Name Freq PRN Reason Stop Dose Admin Acetaminophen 650 mg 11/13/24 15:30 Acetaminophen 325 Mg Tablet PO 12/13/24 15:29 Q6H PRN PAIN 1-3 OR FEVER > 101 Hydrocodone Bitart/Acetaminophen 1 tab 11/15/24 10:19 11/19/24 09:47 Hydrocodone/Apap 7.5/325 Tablet PO 11/20/24 10:18 1 tab Q6HR PRN Administration Pain 4-10 Cyanocobalamin 1,000 mcg 11/14/24 09:00 11/19/24 08:09 Cyanocobalamin 500 Mcg Tablet PO 12/14/24 08:59 1,000 mcg DAILY CELINA Administration Dextrose 25 ml 11/13/24 17:21 Dextrose 50%-Water Inj 50 Ml Syringe IV 12/13/24 17:20 Q15MIN PRN BG 50-70 responsive npo pt Dextrose 50 ml 11/13/24 17:21 Dextrose 50%-Water Inj 50 Ml Syringe IV 12/13/24 17:20 Q15MIN PRN BG <50 OR BG <70 & pt unresponsive Folic Acid 2.5 mg 11/14/24 09:00 11/19/24 08:09 Folic Acid 1 Mg Tablet PO 12/14/24 08:59 2.5 mg DAILY CELINA Administration Glucagon 1 mg 11/13/24 17:21 Glucagon Inj 1 Mg Vial IM Q15MIN PRN BG <70, and no IV access Insulin Degludec 8 unit 11/18/24 14:30 11/19/24 08:10 Insulin Degludec 5 Unit/0.05 Ml (Per 5 Units) SC 12/18/24 14:29 8 unit QDAY CELINA Administration Insulin Human Lispro 0 unit 11/16/24 10:15 11/19/24 11:44 Insulin Lispro (Admelog) 1 Unit/0.01 Ml Unit SC 12/16/24 10:14 1 unit AC CELINA Administration Protocol Lactulose 20 gm 11/19/24 14:00 Lactulose Syrup 20 Gm/30 Ml Udc PO 12/19/24 13:59 TID CLEINA Protocol Linezolid 600 mg 11/18/24 11:15 11/19/24 08:08 Linezolid 600 Mg Tablet PO 11/25/24 11:14 600 mg BID CELINA Administration Midodrine 10 mg 11/17/24 14:00 11/19/24 05:18 Midodrine 5 Mg Tablet PO 12/17/24 13:59 10 mg TID CELINA Administration Pantoprazole Sodium 40 mg 11/19/24 21:00 Pantoprazole 40 Mg Tablet PO 12/19/24 20:59 BID CELINA Protocol Rifaximin 550 mg 11/13/24 21:00 11/19/24 08:09 Rifaximin 550 Mg Tablet PO 11/20/24 20:59 550 mg BID CELINA Administration Spironolactone 50 mg 11/16/24 10:15 11/18/24 08:50 Spironolactone 25 Mg Tablet PO 12/16/24 10:14 50 mg On Hold: 11/19/24 06:52 DAILY CELINA Administration Plan Elzbieta Knight is a 54F pmhx of significant for decompensated alcoholic cirrhosis, multiple admissions for hepatic encephalopathy, hx of prior variceal bleeding s/p banding, chronic pain, NIDDM2 presented to [facility] 11/13 for altered mental status, weakness and 2 episodes of hematemesis admitted for hepatic encephalopathy likely secondary to decompensated alcoholic cirrhosis, found to have LILY, later developing leukopenia. #UTI, VRE #LILY, prerenal, improving #Hematuria 2/2 thrombopenia and/or VRE UTI #Hx of VRE UTI Patient presented with creatinine of 2.4 and BUN of 30, baseline creatinine 0.9- 1. Admission UA showed 1+ blood, 18 RBC and 5 WBC. Patient has presented with history of increased creatinine on chart review and at the time was diagnosed with LILY Ddx includes prerenal LILY secondary to dehydration with nausea vomiting and lactulose, hepatorenal isohepatic encephalopathy, UTI as patient repeat UA 2+ blood, +LE and 28 WBC UCx grew VRE sensitive only to daptomycin, gentamicin synergy screen, and linezolid Plan: - PO linezolid 600 mg q12h (11/18-11/25) - ID consulted, recs appreciated: linezolid for 7 days - Strict Is/Os, daily weights - Avoid nephrotoxic medications and renally dose - If creatinine continues to uptrend, consider urine electrolytes - Given hematuria, patient will need to follow-up outpatient with repeat UA #Hepatic encephalopathy 2/2 #Decompensated cirrhosis, likely alcoholic #Thrombocytopenia, stable #Hyperammonemia #Hypoalbuminemia, resolved #Coagulopathy Patient presented with altered mental status for the past 2 days with generalized weakness with severe asterixis. Patient has been seen multiple times at [facility] for hepatic encephalopathy. On admission, ammonia level elevated at 153, BUN 30, creatinine 2.4, troponin 0.031, platelet 32 decreased to 20, PT 17.7, INR 1.7. EKG NSR rate 81 and CXR showed poor inspiratory effort. UDS only positive for opiates. Patient is currently starting transplant process with appointments. Although patient reports being adherent to medication, patient continues to present with decompensated cirrhosis and hepatic encephalopathy. Likely that medication outpatient is not adequately decreasing ammonia levels and may need to be increased. Noted that patient is on Rifaximin 550 mg twice daily however it has not filled since 10/01/2024. Hypoalbuminemia, thrombocytopenia, coagulopathy likely secondary to cirrhosis. Admission MELD 3.0: 31, 68.3% 90 day survival. Child [place] Class C. [place]re[place]: 32.7, poor prognosis Albumin (11/14-11/18) Plan: - Rifamixin 550 mg BID per GI recs - Increase lactulose 20 g BID to TID - Continue home midodrine 10 mg TID - Hold spironolactone 50 mg due to hyperkalemia - CTM mental status and repeat ammonia levels if patient continues to be altered - Consider Lasix if patient becomes clinically fluid overloaded - No platelet transfusion at this time as patient is hemodynamically stable with blood pressure holding and HR wnl, consider platelet transfusion if platelet becomes hemodynamically unstable - PT ordered, recommends home with home health #Abdominal pain #Allodynia After improvement of encephalopathy, patient reported severe abdominal pain to light touch as well as with diffuse tenderness to palpation over entire body, latter was not present on previous admissions. Per mother, patient has experienced skin sensitivity in the past. Denies weakness. Likely 2/2 cirrhosis. Suspicion of peritonitis low but cannot be excluded due to recent hematemesis and hx of variceal bleeding. Allodynia may be related to uremia vs fibromyalgia. Plan: - CTM abdominal pain - [place] 7.5 q6h prn #Hematemesis #Gastritis with recent mucusal bleeding #Grade I non-bleeding esophageal varicies at lower third of esophagus #Hx of Grade III esophageal varicies s/p banding 06/13/24 Patient's mother at bedside reports 2 episodes of hematemesis. Prior to admission about a spoonful of bright red blood and first episode a week before admission with about 2-3 spoonfuls of blood. FOBT positive Patient does have a history of grade 3 esophageal varices which were banded, however hemoglobin currently stable in the 10s, which is increased from previous admission in September where hemoglobin was 8-9 and patient has not had any further hematemesis, melena or hematochezia at this time. 11/14 EGD showed grade I esophageal varicies found in lower third of esophagus, diffuse severely erythematous mucosa with stigmata of recent bleeding found in entire stomach, mucosal oozing of blood due to hypertensive portal gastropathy, duodenum normal Octreotide drip (11/13-11/18) Plan: - Continue IV pantoprazole 40 mg BID - GI consulted, appreciate recs: octreotide for 5 days, 2g sodium diet #Leukopenia Patient WBC on 11/15 decreased from 3.8 to 1.8 with ANC 900. Per chart review, patient has fluctuated lowest being in the 2.0's. Likely secondary to cirrhosis and VRE UTI. Plan: - CTM CBC #Urinary retention, resolved Night of admission, patient developed urinary retention with bladder scan showing 500 cc of retained urine. DDx includes urinary tract infection, encephalopathy vs home methocarbamol s/e profile Liz (11/14-11/15), s/p bladder training Plan: - CTM urine output #Chronic pain Reports chronic pain since back injury years ago, currently has been taking [place] TID for at least a month. Pain on admission is generalized with tenderness to palpation over the entire body which has improved as mental status improves. Plan: - Pain scale regimen #NIDDM2 Last A1c 6.0 09/2024. On metformin 1g QD at home. Plan: - Degludac 8u - SSI Hospital management: Lines: PIV Diet: CLD advance as tolerated Bowel: lactulose 20 mg QID GI prophylaxis: IV pantoprazole 40 mg BID DVT prophylaxis: SCDs, heparin held iso possible GIB Disposition: tele for hepatic encephalopathy on lactulose and rifamixin, octreotide for 5 days CODE STATUS: Full code Plan of care discussed with attending Dr. Ahuja, and PGY-2 Dr. Tee. Ekaterina Quintero, DO PGY-1 Internal Medicine Attending Provider Attestation/Addendum I have examined the patient, reviewed labs and imaging findings, discussed the case with the resident(s), and reviewed entered orders. I agree with the plan of care as outlined in this note, with these additional summaries/recommendations: Patient seen at bedside. No acute overnight events. Patient's encephalopathy was improving throughout hospitalization although appears slightly worsened today. Given this change we will increase lactulose and patient will remain hospitalized today. Continue rifaximin and frequent reorientation. Patient has urinary symptoms and urine culture grew vancomycin-resistant Enterococcus faecium. Continue antibiotics. Infectious disease, recommendations appreciated. Patient had acute kidney injury with creatinine 2.4 and BUN 29 on admission. Nephrology consulted and following and now resolved. Outpatient follow-up with lubricating specialist for cirrhosis. Low salt diet, outpatient follow-up for vaccine series, and limit Tylenol use for underlying cirrhosis. Patient is S/P EGD 11/15/24 which revealed grade 1 esophageal varices, erythematous mucosa throughout stomach, and normal duodenum. S/P octreotide (5 days total). Continue PPI. Hold all chemical anticoagulation. Patient continues to have leukopenia likely related to underlying liver disease and currently improving. Continue insulin sliding scale for diabetes mellitus type 2. Midodrine for chronic hypotension. Patient updated on the plan and in agreement. All questions answered to satisfaction. Please see residents note for additional details and management. Dr. Seymour MD
--- NOTE | 2024-11-19 13:42 | ESCONSULT_ITS ---
RE: SHANNON ORTIZ : 1970 DATE OF CONSULTATION: 11/19/2024 REFERRING PHYSICIAN: Stephen Ahuja MD REASON FOR CONSULTATION: Cirrhosis with bacteremia as well as the patient has had prior surgery in other areas. HISTORY OF PRESENT ILLNESS: She has a family history of cancer and some chronic back problems due to some sort of accident at work. It looks like the Workers' Compensation has been putting off any kind of back surgery for her for some time. The patient has chronic back pain. ALLERGIES: PATIENT IS ALLERGIC TO LATEX. IMMUNIZATIONS: Last tetanus is about 2 years ago or so. She does take a flu shot every year. She has had 4 COVID vaccines and does not recall pneumococcal vaccination. FAMILY HISTORY: Positive for cancer in her father and various relatives on her father's side including several uncles. SOCIAL HISTORY: She lives with relatives. I apparently provided care for her mother who was by her side, for [place] fever. PHYSICAL EXAMINATION: The rest of the exam is benign. ASSESSMENT: Bacteremia in a patient with bacteriuria with urinary tract infection and in a patient with VRE in the urine. No fever. RECOMMENDATIONS: It is okay to finish the linezolid orally thru 11/25. 6 more days will be fine. The patient still has some symptoms, but her exam is generally benign. It would be okay to give her 6 more days of treatment as an outpatient at her discretion. I will see her on an inpatient basis again on an as-needed basis. I note that she has hepatitis panel that is negative I will get an human immunodeficiency virus test today as a precaution if she goes home. I will check on her superficially on Tuesday if she remains. DT: 12:19:23 TT: 12:44:00 Ref: [id number] - TID: [id number] [facility]
[2024-11-19 18:54] LABS: HIV (1&2) Antibody Rapid Non-Reactive
--- NOTE | 2024-11-19 19:09 | ESPR_ITS ---
Documentation for date of: 11/19/24 Subjective Subjective Interval history: Patient evaluated More alert Hemoglobin hematocrit 7.8 and 23.2 Platelet count 21,000 Exam Vital Signs Temp Pulse Resp BP Pulse Ox O2 Del Method O2 Flow Rate 97.0 F 66 17 113/74 94 L Room Air 2 11/19/24 16:00 11/19/24 16:00 11/19/24 16:00 11/19/24 16:00 11/19/24 16:00 11/19/24 16:00 11/16/24 11:59 Objective Labs 11/19/24 05:10 11/19/24 08:25 Labs: Laboratory Results - last 24 hr 11/19/24 11/19/24 05:10 08:25 WBC 2.5 L D RBC 2.13 L Hgb 7.8 L Hct 23.2 L MCV 109 H MCH 36.6 H MCHC 33.6 RDW Std Deviation 73.3 H Plt Count 21 L* D Neut % (Auto) 57 Lymph % (Auto) 25 [place] % (Auto) 10 Eos % (Auto) 8 Baso % (Auto) 0 Neut # (Auto) 1.5 L Lymph # (Auto) 0.6 L [place] # (Auto) 0.2 Eos # (Auto) 0.2 Baso # (Auto) 0.0 Immature Gran # (Auto) 0.00 Absolute Nucleated RBC 0.00 Immature Gran % 0 Nucleated RBC % 0 Sodium 146 H Potassium 5.2 H 5.2 H Chloride 109 H Carbon Dioxide 26.5 Anion Gap 11 BUN 9 Creatinine 1.3 Estim Creat Clear Calc 43.8 L eGFR 49 L BUN/Creatinine Ratio 7 L Glucose 168 H Calculated Osmolality 293 Calcium 9.9 Corrected Calcium 9.9 Magnesium 2.5 Total Bilirubin 5.1 H AST 23 ALT 7 L Alkaline Phosphatase 50 Total Protein 7.0 Albumin 5.3 H D Globulin 1.7 L Albumin/Globulin Ratio 3.1 H HIV 1&2 Antibody Rapid Non-Reactive Misc Test Result Platelets confirmed Impressions Impression: Upper GI bleed secondary to mucosal oozing of blood secondary to hypertensive portal gastropathy 1+ esophageal varices not large enough for band ligation Improving hepatic encephalopathy Continue current management Assessment & Plan A&P Narrative uti , mild with vre as only germ found po linezolid ok for this for total of 7d, home at your discretion. will see again prn Time Spent With Patient Time: Total time spent is greater than 50% in coordination of care (as documented) at patient's floor/unit and/or counseling patient:
[2024-11-19] MEDS: PANTOPRAZOLE 40 MG TABLET PO (21:49)
[2024-11-20] VITALS (11 sets, daily range): BP systolic 93–166; BP diastolic 56–66; PULSE 58–93; RESP 10–20; TEMP 36.1–36.2; O2SAT 95–99
[2024-11-20 05:42] LABS: Basophils # (Auto) 0.0 Thou/mm3 (0.0-0.2); Basophils % (Auto) 1 % (0-2.5); Eosinophils # (Auto) 0.3 Thou/mm3 (0.0-0.5); Eosinophils % (Auto) 8 % (0-10); Hematocrit 28.4 % (36.0-46.0); Hemoglobin 9.2 g/dL (12.0-16.0); Immature Granulocytes Auto 0.01 Thou/mm3 (0.00-0.00); Lymphocytes # (Auto) 1.1 Thou/mm3 (1.0-4.8); Lymphocytes % (Auto) 29 % (10-50); Mean Corpuscular HGB Conc 32.4 g/dl (31.0-37.0); Mean Corpuscular Hemoglobin 35.9 pg (25.0-35.0); Mean Corpuscular Volume 111 fL (80-100); Monocytes # (Auto) 0.3 Thou/mm3 (0.0-0.8); Monocytes % (Auto) 8 % (0-12); Neutrophils # (Auto) 2.0 Thou/mm3 (1.8-7.7); Neutrophils % (Auto) 55 % (37-80); Nucleated Red Blood Cell # 0.00 Thou/mm3 (0.00-0.00); Nucleated Red Blood Cell % 0 /100 WBC (0); RDW Standard Deviation 75.8 fL (36.4-46.3); Red Blood Count 2.56 Miln/mm3 (4.00-5.20); White Blood Count 3.7 Thou/mm3 (3.6-11.0)
[2024-11-20] MEDS: LACTULOSE SYRUP 20 GM/30 ML UDC PO ×3 (05:43→21:01)
[2024-11-20] MEDS: MIDODRINE 5 MG TABLET 10 MG PO ×3 (05:43→21:01)
[2024-11-20 06:01] LABS: Platelet Count 26 Thou/mm3 (140-440)
[2024-11-20] MEDS: HYDROcodone/APAP 7.5/325 TABLET 1 TAB PO (06:05)
[2024-11-20 06:11] LABS: Alanine Aminotransferase 11 U/L (10-49); Albumin, Serum 5.3 gm/dL (3.5-5.0); Albumin/Globulin Ratio 2.4 (1.2-2.2); Alkaline Phosphatase 62 U/L (46-116); Anion Gap 10 (7-16); Aspartate Amino Transferase 32 U/L (0-34); BUN/Creatinine Ratio 8 Ratio (12-20); Bilirubin,Total 6.2 mg/dL (0.3-1.2); Blood Urea Nitrogen 10 mg/dL (9-23); Calcium 10.2 mg/dL (8.3-10.6); Calcium (Corrected) 10.2 mg/dL (8.5-10.1); Carbon Dioxide 26.7 mMol/L (20.0-31.0); Chloride 107 mMol/L (98-107); Creatinine (Component) 1.2 mg/dL (0.6-1.3); Estimated Creatinine Clearance 47.5 mL/min (>60); Globulin 2.2 gm/dL (2.3-3.5); Glucose 106 mg/dL (74-106); Magnesium 2.4 mg/dL (1.6-2.6); Osmolality,Calculated 285 (275-295); Potassium 5.4 mMol/L (3.4-5.1); Sodium 144 mMol/L (136-145); Total Protein 7.5 gm/dL (5.7-8.2); eGFR 54 See Note
[2024-11-20 06:35] LABS: Slide Review Platelets confirmed
--- NOTE | 2024-11-20 07:40 | ESPR_ITS ---
Documentation for date of: 11/20/24 Subjective Subjective Interval history: Ms. Knight is a 54-year-old lady who has extensive history of liver cirrhosis secondary to alcoholism (under liver transplant team) recurrent admissions for hepatic encephalopathy, upper GI bleed due to varices/banding, chronic pain syndrome, DM presented to the emergency department with 2 episodes of hematemesis going on for the last few days associated with altered mental status generalized pain weakness and poor p.o. intake. Denies any fever or chills. In the ED patient was noted to be hypotensive. She was given gentle IV fluids, albumin started on home midodrine and lactulose. Admitted to telemetry. Nephrology consultation requested in view of LILY. Patient well-known to me from previous admissions. Home medications included vitamin D, furosemide, [place], last close, metformin, methocarbamol, midodrine, Remeron, Protonix, rifaximin, spironolactone. Labs showed hemoglobin 10.3, platelets 30. Sodium 140, potassium 4.5, BUN 29, creatinine 2.4 of note 10/16/2023 her creatinine is 1.0., Calcium 10.8, magnesium 2.3, total bilirubin 6.7, AST 45, ALT 18, alk phos 96, albumin 2.9, urinalysis shows 2+ blood with 20 RBCs. 11/16/2024 patient currently seen in telemetry. Resting comfortably. Labs/medications reviewed. Urine output improving. She has a Liz catheter. Blood pressure 126/73, heart rate 83. WBC 1.8, hemoglobin 7.8, platelets 22. Creatinine improved to 1.6, sodium 144, potassium 3.9. Albumin 4.4. Patient had endoscopy yesterday. Patient in contact isolation for VRE UTI. Did receive IV fluids, albumin. Will continue albumin. Discharge planning per primary team. Did explain to the patient that she will have recurrent hospitalizations for complications from liver cirrhosis. 11/17/2024 patient seen in telemetry. Liz catheter removd. She continues to report diffuse body aches and generalized pain with significant tenderness to light touch, as well as weakness and discomfort on passive movement of the limbs. Symptoms consistent with deconditioning and overall deterioration from prolonged bed rest. Will benefit from physical therapy evaluation for mobility and strength support. Blood pressure 131/86, heart rate 81. WBC 3.0, hemoglobin 7.9, platelets 23, creatinine 1.5, sodium 147, potassium 4.6, albumin 4.8. She is cleared from a nephrology standpoint. 11/19/2024 patient seen in telemetry this morning. Reports feeling overall better with resolution of body aches, only mild back pain at this time. Completed 5-day octreotide course. Urine culture from 11/17 positive for VRE; started on linezolid yesterday per primary team. Liz catheter removed; patient voiding spontaneously with adequate output. BP 127/74, HR 82. Labs: Hgb 7.8, WBC 2.5, Plt 21, Na 146, K 5.2, Cl 109, Cr 1.3, total bilirubin 5.1, albumin 5.3. Will monitor potassium closely. Recommend holding spironolactone given hyperkalemia and improving renal function. 11/20/2024 patient seen in telemetry today. She continues to report feeling better overall, with improved appetite and less generalized discomfort. No new complaints of abdominal pain, shortness of breath, or nausea. Back pain mild and controlled. Liz remains out, patient voiding without difficulty. Vitals stable with BP 96/69 and HR 67. Labs today: WBC 3.7, Hgb 9.2, Plt 26, Na 144, K 5.4, Cl 107, HCO3 26, Ca 10.2, total bilirubin 6.2. Received 15 g Kayexalate this morning for hyperkalemia. Will continue to monitor potassium and renal function closely. Exam Vital Signs Temp Pulse Resp BP Pulse Ox O2 Del Method O2 Flow Rate 96.9 F 67 12 96/60 96 Room Air 2 11/20/24 04:00 11/20/24 05:43 11/20/24 04:00 11/20/24 05:43 11/20/24 04:00 11/20/24 00:00 11/16/24 11:59 Narrative Exam GENERAL APPEARANCE: Patient currently seen in telemetry, resting comfortably. Appears weak but improved from prior days. Scleral icterus noted. NECK: Neck supple, no JVD or bruit. CARDIOVASCULAR: Heart regular, no murmurs. LUNGS/CHEST: Clear to auscultation. No rales, rhonchi, or wheezing. ABDOMEN: Soft, nontender, nondistended. Normal bowel sounds. Ascites present. EXTREMITIES: Right arm swelling resolved. No new edema. SKIN: Jaundiced, no new lesions or rashes. MUSCULOSKELETAL: In bed, mild back discomfort on palpation. NEUROLOGICAL: Awake, alert, oriented ?3. No asterixis. Objective Labs 11/20/24 05:15 11/20/24 10:48 Labs: Laboratory Results - last 24 hr 11/19/24 11/19/24 11/20/24 05:10 08:25 05:15 WBC 3.7 D RBC 2.56 L Hgb 9.2 L Hct 28.4 L MCV 111 H MCH 35.9 H MCHC 32.4 RDW Std Deviation 75.8 H Plt Count 26 L* D Neut % (Auto) 55 Lymph % (Auto) 29 [place] % (Auto) 8 Eos % (Auto) 8 Baso % (Auto) 1 Neut # (Auto) 2.0 Lymph # (Auto) 1.1 [place] # (Auto) 0.3 Eos # (Auto) 0.3 Baso # (Auto) 0.0 Immature Gran # (Auto) 0.01 H Absolute Nucleated RBC 0.00 Immature Gran % 0 Nucleated RBC % 0 Sodium 144 Potassium 5.2 H 5.4 H Chloride 107 Carbon Dioxide 26.7 Anion Gap 10 BUN 10 Creatinine 1.2 Estim Creat Clear Calc 47.5 L eGFR 54 L BUN/Creatinine Ratio 8 L Glucose 106 D Calculated Osmolality 285 Calcium 10.2 Corrected Calcium 10.2 H Magnesium 2.4 Total Bilirubin 6.2 H D AST 32 ALT 11 Alkaline Phosphatase 62 D Total Protein 7.5 Albumin 5.3 H Globulin 2.2 L Albumin/Globulin Ratio 2.4 H HIV 1&2 Antibody Rapid Non-Reactive Misc Test Result Platelets confirmed Quality Measures Quality Measures VTE prophylaxis Assessment & Plan Assessment Current Active Medications: Generic Name Dose Route Start Last Admin Trade Name Freq PRN Reason Stop Dose Admin Acetaminophen 650 mg 11/13/24 15:30 Acetaminophen 325 Mg Tablet PO 12/13/24 15:29 Q6H PRN PAIN 1-3 OR FEVER > 101 Hydrocodone Bitart/Acetaminophen 1 tab 11/15/24 10:19 11/20/24 06:05 Hydrocodone/Apap 7.5/325 Tablet PO 11/20/24 10:18 1 tab Q6HR PRN Administration Pain 4-10 Cyanocobalamin 1,000 mcg 11/14/24 09:00 11/19/24 08:09 Cyanocobalamin 500 Mcg Tablet PO 12/14/24 08:59 1,000 mcg DAILY CELINA Administration Dextrose 25 ml 11/13/24 17:21 Dextrose 50%-Water Inj 50 Ml Syringe IV 12/13/24 17:20 Q15MIN PRN BG 50-70 responsive npo pt Dextrose 50 ml 11/13/24 17:21 Dextrose 50%-Water Inj 50 Ml Syringe IV 12/13/24 17:20 Q15MIN PRN BG <50 OR BG <70 & pt unresponsive Folic Acid 2.5 mg 11/14/24 09:00 11/19/24 08:09 Folic Acid 1 Mg Tablet PO 12/14/24 08:59 2.5 mg DAILY CELINA Administration Glucagon 1 mg 11/13/24 17:21 Glucagon Inj 1 Mg Vial IM Q15MIN PRN BG <70, and no IV access Insulin Degludec 8 unit 11/18/24 14:30 11/19/24 08:10 Insulin Degludec 5 Unit/0.05 Ml (Per 5 Units) SC 12/18/24 14:29 8 unit QDAY CELINA Administration Insulin Human Lispro 0 unit 11/16/24 10:15 11/20/24 07:37 Insulin Lispro (Admelog) 1 Unit/0.01 Ml Unit SC 12/16/24 10:14 Not Given AC CELINA Protocol Lactulose 20 gm 11/19/24 14:00 11/20/24 05:43 Lactulose Syrup 20 Gm/30 Ml Udc PO 12/19/24 13:59 20 gm TID CELINA Administration Protocol Linezolid 600 mg 11/18/24 11:15 11/19/24 21:49 Linezolid 600 Mg Tablet PO 11/25/24 11:14 600 mg BID CELINA Administration Midodrine 10 mg 11/17/24 14:00 11/20/24 05:43 Midodrine 5 Mg Tablet PO 12/17/24 13:59 10 mg TID CELINA Administration Pantoprazole Sodium 40 mg 11/19/24 21:00 11/19/24 21:49 Pantoprazole 40 Mg Tablet PO 12/19/24 20:59 40 mg BID CELINA Administration Protocol Rifaximin 550 mg 11/13/24 21:00 11/19/24 21:49 Rifaximin 550 Mg Tablet PO 11/20/24 20:59 550 mg BID CELINA Administration Spironolactone 50 mg 11/16/24 10:15 11/18/24 08:50 Spironolactone 25 Mg Tablet PO 12/16/24 10:14 50 mg On Hold: 11/19/24 06:52 DAILY CELINA Administration Plan 53-year-old female with decompensated alcoholic cirrhosis and recurrent hepatic encephalopathy, admitted for hematemesis and altered mental status, found to have LILY and now VRE UTI. #LILY, likely prerenal azotemia Improving; creatinine down to 1.2, urine output stable. Likely secondary to poor oral intake and volume depletion. Continue albumin support Continue midodrine Maintain euvolemia; monitor daily weights and I/O Electrolytes stable but mild hyperkalemia (K 5.4) noted?received 15 of Kayexalate Hold spironolactone temporarily Encourage oral fluids as tolerated Cleared from nephrology standpoint #Acute metabolic encephalopathy #Hepatic encephalopathy In the setting of underlying cirrhosis Continue with lactulose, rifaximin, albumin #Decompensated cirrhosis, with sequela #Thrombocytopenia #Coagulopathy #Hyperbilirubinemia Child[place] class C 13 points Completed 5-day octreotide course for varices. MELD sodium 22 points with 19.6% 3-month mortality Continue lactulose, rifaximin, albumin, midodrine Outpatient hepatology follow up for liver transplant evaluation #Macrocytic anemia Chronic, stable Likely from history of alcohol abuse ----- Plan discussed with attending physician Dr. Yenny Raya MD PGY-1 Internal Medicine Attending Provider Attestation/Addendum Patient seen and examined with resident physician Dr. Raya. Note reviewed, agree with findings and recommendations. Patient currently seen in isolation. Comfortable. Still having significant weakness and mild abdominal discomfort. Creatinine improving. Continue with IV albumin and midodrine
[2024-11-20] MEDS: LINEZOLID 600 MG TABLET PO ×2 (08:07→21:02)
[2024-11-20] MEDS: FOLIC ACID 1 MG TABLET 2.5 MG PO (08:07)
[2024-11-20] MEDS: PANTOPRAZOLE 40 MG TABLET PO ×2 (08:07→21:02)
[2024-11-20] MEDS: INSULIN DEGLUDEC 5 UNIT/0.05 ML (PER 5 UNITS) 8 UNIT SC (08:07)
[2024-11-20] MEDS: DEXTROSE 50%-WATER INJ 50 ML SYRINGE 25 ML IVP (08:21)
[2024-11-20] MEDS: INSULIN HUM REGULAR 1 UNIT/0.01 ML (PER UNIT) 5 UNIT IV ×2 (08:26→21:26)
[2024-11-20] MEDS: SOD POLYSTYRENE SULFON SUSP 15 GM/60 ML BTL PO (08:37)
--- NOTE | 2024-11-20 10:45 | CHAP ---
Patient was visited by a Spiritual Care Volunteer on 11/20/2024 between [id number] and [id number] and received comfort, encouragement and/or prayer.
[2024-11-20] MEDS: ONDANSETRON INJ 2 MG/ML INJ 2 ML 4 MG IVP (10:52)
[2024-11-20 11:09] LABS: Potassium 5.3 mMol/L (3.4-5.1)
[2024-11-20] MEDS: INSULIN LISPRO (AdmeLOG) 1 UNIT/0.01 ML UNIT SC ×2 (12:09→17:11)
--- NOTE | 2024-11-20 13:02 | ESPR_ITS ---
<Statement entered by Zach Plata MD - 11/20/24 17:08> Patient was seen and evaluated at bedside this morning. No acute overnight events. Patient this morning still has some tremors on bilateral upper extremities and is still feeling very weak. Potassium up trended to 5.4 therefore we will continue to hold spironolactone. Patient was given insulin 5 units IV and an amp of D50 25 mL x 1 as hyperkalemia protocol and was also given Kayexalate 15 g x 1. Will repeat potassium and follow-up. Otherwise patient was a little bit slower to answer questions today therefore we will hold off discharge today and reassess tomorrow for possibility of discharge in the next 24 hours if improvement in mental status and tremors. I have reviewed the note and agree with the resident's assessment & plan with exceptions as below. I have personally reviewed labs, imaging, home meds/prior records, examined the patient, formulated and discussed management plan with my attending Case disclosed with attending Dr. Adalberto Plata PGY2 Disclaimer: Even though this this note was dictated by speech recognition and even though it was carefully revised there may still be minor errors in operation supervisor due to voice recognition software. Documentation for date of: 11/20/24 Subjective Subjective Interval history: No acute overnight events. It was noted that yesterday afternoon, patient was refusing her lactulose. Spoke to patient this morning and she is amenable to continuing her lactulose. Patient still otherwise complains of abdominal pain tender to mild palpation and generalized weakness with tremors. Patient feels weak working with physical therapy but does not want SNF and would prefer home health. Vitals and labs reviewed. WBC 3.7.. Hemoglobin 9.2. Platelets 26. Potassium 5.4, given insulin 5 units and Kayexalate. Creatinine 1.2. Bilirubin stable elevated 6.2. Continue linezolid. Continue rifaximin, lactulose, midodrine. Continue holding spironolactone and anticipate to hold on discharge due to hyperkalemia. Exam Vital Signs Temp Pulse Resp BP Pulse Ox O2 Del Method O2 Flow Rate 97.1 F 67 10 L 117/62 95 Room Air 2 11/20/24 12:00 11/20/24 12:00 11/20/24 12:00 11/20/24 12:00 11/20/24 12:00 11/20/24 12:00 11/16/24 11:59 Narrative Exam GENERAL: AOx3, no acute distress, sitting up, fatigued HEENT: NC/AT, mucous membranes moist, bilateral sclera icteric CARDIOVASCULAR: regular rate and rhythm, S1/S2 present, 3/6 systolic murmur heard best at left 2nd intercostal space PULMONARY: clear to auscultation bilaterally, no rales/rhonchi/wheezes ABDOMINAL: soft, mild diffuse tenderness to palpation, no rebound/guarding, bowel sounds present EXTREMITIES: no peripheral edema SKIN: warm and dry, intact, no rashes NEURO: CN II-XII grossly intact, no focal deficits, alert, following commands, + BUE tremors at rest, +asterixis Objective Labs 11/20/24 05:15 11/20/24 10:48 Labs: Laboratory Results - last 24 hr 11/19/24 11/20/24 11/20/24 05:10 05:15 10:48 WBC 3.7 D RBC 2.56 L Hgb 9.2 L Hct 28.4 L MCV 111 H MCH 35.9 H MCHC 32.4 RDW Std Deviation 75.8 H Plt Count 26 L* D Neut % (Auto) 55 Lymph % (Auto) 29 [place] % (Auto) 8 Eos % (Auto) 8 Baso % (Auto) 1 Neut # (Auto) 2.0 Lymph # (Auto) 1.1 [place] # (Auto) 0.3 Eos # (Auto) 0.3 Baso # (Auto) 0.0 Immature Gran # (Auto) 0.01 H Absolute Nucleated RBC 0.00 Immature Gran % 0 Nucleated RBC % 0 Sodium 144 Potassium 5.4 H 5.3 H Chloride 107 Carbon Dioxide 26.7 Anion Gap 10 BUN 10 Creatinine 1.2 Estim Creat Clear Calc 47.5 L eGFR 54 L BUN/Creatinine Ratio 8 L Glucose 106 D Calculated Osmolality 285 Calcium 10.2 Corrected Calcium 10.2 H Magnesium 2.4 Total Bilirubin 6.2 H D AST 32 ALT 11 Alkaline Phosphatase 62 D Total Protein 7.5 Albumin 5.3 H Globulin 2.2 L Albumin/Globulin Ratio 2.4 H HIV 1&2 Antibody Rapid Non-Reactive Misc Test Result Platelets confirmed Quality Measures Quality Measures VTE prophylaxis Assessment & Plan Assessment Current Active Medications: Generic Name Dose Route Start Last Admin Trade Name Freq PRN Reason Stop Dose Admin Acetaminophen 650 mg 11/13/24 15:30 Acetaminophen 325 Mg Tablet PO 12/13/24 15:29 Q6H PRN PAIN 1-3 OR FEVER > 101 Cyanocobalamin 1,000 mcg 11/14/24 09:00 11/20/24 08:08 Cyanocobalamin 500 Mcg Tablet PO 12/14/24 08:59 1,000 mcg DAILY CELINA Administration Dextrose 25 ml 11/13/24 17:21 Dextrose 50%-Water Inj 50 Ml Syringe IV 12/13/24 17:20 Q15MIN PRN BG 50-70 responsive npo pt Dextrose 50 ml 11/13/24 17:21 Dextrose 50%-Water Inj 50 Ml Syringe IV 12/13/24 17:20 Q15MIN PRN BG <50 OR BG <70 & pt unresponsive Folic Acid 2.5 mg 11/14/24 09:00 11/20/24 08:07 Folic Acid 1 Mg Tablet PO 12/14/24 08:59 2.5 mg DAILY CELINA Administration Glucagon 1 mg 11/13/24 17:21 Glucagon Inj 1 Mg Vial IM Q15MIN PRN BG <70, and no IV access Insulin Degludec 8 unit 11/18/24 14:30 11/20/24 08:07 Insulin Degludec 5 Unit/0.05 Ml (Per 5 Units) SC 12/18/24 14:29 8 unit QDAY CELINA Administration Insulin Human Lispro 0 unit 11/16/24 10:15 11/20/24 12:09 Insulin Lispro (Admelog) 1 Unit/0.01 Ml Unit SC 12/16/24 10:14 2 unit AC CELINA Administration Protocol Lactulose 20 gm 11/19/24 14:00 11/20/24 05:43 Lactulose Syrup 20 Gm/30 Ml Udc PO 12/19/24 13:59 20 gm TID CELINA Administration Protocol Linezolid 600 mg 11/18/24 11:15 11/20/24 08:07 Linezolid 600 Mg Tablet PO 11/25/24 11:14 600 mg BID CELINA Administration Midodrine 10 mg 11/17/24 14:00 11/20/24 05:43 Midodrine 5 Mg Tablet PO 12/17/24 13:59 10 mg TID CELINA Administration Ondansetron HCl 4 mg 11/20/24 10:43 11/20/24 10:52 Ondansetron Inj 2 Mg/Ml Inj 2 Ml IVP 12/20/24 10:42 4 mg Q6HR PRN Administration NAUSEA OR VOMITING Protocol Pantoprazole Sodium 40 mg 11/19/24 21:00 11/20/24 08:07 Pantoprazole 40 Mg Tablet PO 12/19/24 20:59 40 mg BID CELINA Administration Protocol Rifaximin 550 mg 11/13/24 21:00 11/20/24 08:07 Rifaximin 550 Mg Tablet PO 11/20/24 20:59 550 mg BID CELINA Administration Spironolactone 50 mg 11/16/24 10:15 11/18/24 08:50 Spironolactone 25 Mg Tablet PO 12/16/24 10:14 50 mg On Hold: 11/19/24 06:52 DAILY CELINA Administration Plan Elzbieta Knight is a 54F pmhx of significant for decompensated alcoholic cirrhosis, multiple admissions for hepatic encephalopathy, hx of prior variceal bleeding s/p banding, chronic pain, NIDDM2 presented to [facility] 11/13 for altered mental status, weakness and 2 episodes of hematemesis admitted for hepatic encephalopathy likely secondary to decompensated alcoholic cirrhosis, found to have LILY, later developing leukopenia. #UTI, VRE #LILY, prerenal, improving #Hematuria 2/2 thrombopenia and/or VRE UTI #Hx of VRE UTI #Hyperkalemia Patient presented with creatinine of 2.4 and BUN of 30, baseline creatinine 0.9- 1. Admission UA showed 1+ blood, 18 RBC and 5 WBC. Patient has presented with history of increased creatinine on chart review and at the time was diagnosed with LILY Ddx includes prerenal LILY secondary to dehydration with nausea vomiting and lactulose, hepatorenal isohepatic encephalopathy, UTI as patient repeat UA 2+ blood, +LE and 28 WBC UCx grew VRE sensitive only to daptomycin, gentamicin synergy screen, and linezolid Plan: - PO linezolid 600 mg q12h (11/18-11/25) - ID consulted, recs appreciated: linezolid for 7 days - s/p 5u insulin and keyaxelate for hyperkalemia - Hold spironolactone 50 mg due to hyperkalemia - Strict Is/Os, daily weights - Avoid nephrotoxic medications and renally dose - If creatinine continues to uptrend, consider urine electrolytes - Given hematuria, patient will need to follow-up outpatient with repeat UA #Hepatic encephalopathy 2/2 #Decompensated cirrhosis, likely alcoholic #Thrombocytopenia, stable #Hyperammonemia #Hypoalbuminemia, resolved #Coagulopathy Patient presented with altered mental status for the past 2 days with generalized weakness with severe asterixis. Patient has been seen multiple times at [facility] for hepatic encephalopathy. On admission, ammonia level elevated at 153, BUN 30, creatinine 2.4, troponin 0.031, platelet 32 decreased to 20, PT 17.7, INR 1.7. EKG NSR rate 81 and CXR showed poor inspiratory effort. UDS only positive for opiates. Patient is currently starting transplant process with appointments. Although patient reports being adherent to medication, patient continues to present with decompensated cirrhosis and hepatic encephalopathy. Likely that medication outpatient is not adequately decreasing ammonia levels and may need to be increased. Noted that patient is on Rifaximin 550 mg twice daily however it has not filled since 10/01/2024. Hypoalbuminemia, thrombocytopenia, coagulopathy likely secondary to cirrhosis. Admission MELD 3.0: 31, 68.3% 90 day survival. Child [place] Class C. [place]: 32.7, poor prognosis Albumin (11/14-11/18) Plan: - Rifamixin 550 mg BID and Lactulose 20 g TID - Continue home midodrine 10 mg TID - CTM mental status and repeat ammonia levels if patient continues to be altered - Consider Lasix if patient becomes clinically fluid overloaded - No platelet transfusion at this time as patient is hemodynamically stable with blood pressure holding and HR wnl, consider platelet transfusion if platelet becomes hemodynamically unstable - PT ordered, recommends home with home health #Abdominal pain #Allodynia After improvement of encephalopathy, patient reported severe abdominal pain to light touch as well as with diffuse tenderness to palpation over entire body, latter was not present on previous admissions. Per mother, patient has experienced skin sensitivity in the past. Denies weakness. Likely 2/2 cirrhosis. Suspicion of peritonitis low but cannot be excluded due to recent hematemesis and hx of variceal bleeding. Allodynia may be related to uremia vs fibromyalgia. Plan: - CTM abdominal pain - [place] 7.5 q6h prn #Hematemesis #Gastritis with recent mucusal bleeding #Grade I non-bleeding esophageal varicies at lower third of esophagus #Hx of Grade III esophageal varicies s/p banding 06/13/24 Patient's mother at bedside reports 2 episodes of hematemesis. Prior to admission about a spoonful of bright red blood and first episode a week before admission with about 2-3 spoonfuls of blood. FOBT positive Patient does have a history of grade 3 esophageal varices which were banded, however hemoglobin currently stable in the 10s, which is increased from previous admission in September where hemoglobin was 8-9 and patient has not had any further hematemesis, melena or hematochezia at this time. 11/14 EGD showed grade I esophageal varicies found in lower third of esophagus, diffuse severely erythematous mucosa with stigmata of recent bleeding found in entire stomach, mucosal oozing of blood due to hypertensive portal gastropathy, duodenum normal Octreotide drip (11/13-11/18) Plan: - Continue IV pantoprazole 40 mg BID - GI consulted, appreciate recs: 2g sodium diet #Leukopenia Patient WBC on 11/15 decreased from 3.8 to 1.8 with ANC 900. Per chart review, patient has fluctuated lowest being in the 2.0's. Likely secondary to cirrhosis and VRE UTI. Plan: - CTM CBC #Urinary retention, resolved Night of admission, patient developed urinary retention with bladder scan showing 500 cc of retained urine. DDx includes urinary tract infection, encephalopathy vs home methocarbamol s/e profile Liz (11/14-11/15), s/p bladder training Plan: - CTM urine output #Chronic pain Reports chronic pain since back injury years ago, currently has been taking [place] TID for at least a month. Pain on admission is generalized with tenderness to palpation over the entire body which has improved as mental status improves. Plan: - Pain scale regimen #NIDDM2 Last A1c 6.0 09/2024. On metformin 1g QD at home. Plan: - Degludac 8u - SSI Hospital management: Lines: PIV Diet: low sodium 2g Bowel: lactulose 20 mg TID GI prophylaxis: IV pantoprazole 40 mg BID DVT prophylaxis: SCDs, heparin held iso possible GIB Disposition: tele for continued asterixis CODE STATUS: Full code Plan of care discussed with attending Dr. Glover, and PGY-2 Dr. Tee. Ekaterina Quintero DO PGY-1 Internal Medicine Attending Provider Attestation/Addendum I have discussed and was present for the essential components of the history, physical examination, diagnosis, and treatment plan with the resident. I agree with the patient's care as documented by the resident and amended herein by me. Dickson Glover DO. Although this document has been carefully reviewed, there may still be some phonetic and other typographical errors. These errors are purely grammatical due to imperfections in the software program and should not be construed in any way to compromise the substance of the patient's medical care during this visit. Patient seen and evaluated this AM. Vital signs stable, patient afebrile overnight, significant labs include a stable hemoglobin of 9, platelets 26, potassium 5.4 which downtrended to 5.3, creatinine down trended to 1.2, and T. bili of 6.2. Positive asterixis noted in the morning, although patient more alert today, able to follow commands. Will continue lactulose, rifaximin, and midodrine for now as well as Protonix, possible discharge home tomorrow on 11/20 if she continues to improve.
--- NOTE | 2024-11-20 15:29 | PC.SS ---
Patient to d/c home today with HH services.
--- NOTE | 2024-11-20 19:26 | ESPR_ITS ---
Documentation for date of: 11/20/24 Subjective Subjective Interval history: Patient evaluated hemoglobin hematocrit after transfusion is 9.2 and 28.4 Responds to questions No further bleeding Exam Vital Signs Temp Pulse Resp BP Pulse Ox O2 Del Method O2 Flow Rate 97.1 F 66 16 108/62 96 Room Air 2 11/20/24 16:00 11/20/24 16:00 11/20/24 16:00 11/20/24 16:00 11/20/24 16:00 11/20/24 16:00 11/20/24 16:00 Objective Labs 11/20/24 05:15 11/20/24 10:48 Labs: Laboratory Results - last 24 hr 11/20/24 11/20/24 05:15 10:48 WBC 3.7 D RBC 2.56 L Hgb 9.2 L Hct 28.4 L MCV 111 H MCH 35.9 H MCHC 32.4 RDW Std Deviation 75.8 H Plt Count 26 L* D Neut % (Auto) 55 Lymph % (Auto) 29 [place] % (Auto) 8 Eos % (Auto) 8 Baso % (Auto) 1 Neut # (Auto) 2.0 Lymph # (Auto) 1.1 [place] # (Auto) 0.3 Eos # (Auto) 0.3 Baso # (Auto) 0.0 Immature Gran # (Auto) 0.01 H Absolute Nucleated RBC 0.00 Immature Gran % 0 Nucleated RBC % 0 Sodium 144 Potassium 5.4 H 5.3 H Chloride 107 Carbon Dioxide 26.7 Anion Gap 10 BUN 10 Creatinine 1.2 Estim Creat Clear Calc 47.5 L eGFR 54 L BUN/Creatinine Ratio 8 L Glucose 106 D Calculated Osmolality 285 Calcium 10.2 Corrected Calcium 10.2 H Magnesium 2.4 Total Bilirubin 6.2 H D AST 32 ALT 11 Alkaline Phosphatase 62 D Total Protein 7.5 Albumin 5.3 H Globulin 2.2 L Albumin/Globulin Ratio 2.4 H Misc Test Result Platelets confirmed Impressions Impression: Anemia blood loss due to mucosal oozing of blood due to hypertensive portal gastropathy in setting of cirrhotic liver disease due to alcohol Hepatic encephalopathy improving Continue current management Assessment & Plan A&P Narrative uti , mild with vre as only germ found po linezolid ok for this for total of 7d, home at your discretion. will see again prn Time Spent With Patient Time: Total time spent is greater than 50% in coordination of care (as documented) at patient's floor/unit and/or counseling patient:
[2024-11-20 19:52] LABS: Potassium 5.5 mMol/L (3.4-5.1)
[2024-11-20] MEDS: ALBUTEROL RT 2.5 MG/0.5 ML NEBU INH (21:20)
[2024-11-20] MEDS: SODIUM CHLORIDE RT SOL 0.9% 3 ML NEBU INH (21:21)
[2024-11-20] MEDS: DEXTROSE 50%-WATER INJ 50 ML SYRINGE IVP (21:25)
[2024-11-20] MEDS: SOD POLYSTYRENE SULFON SUSP 15 GM/60 ML BTL 30 GM PO (21:25)
[2024-11-21] VITALS (10 sets, daily range): BP systolic 98–124; BP diastolic 52–70; PULSE 67–86; RESP 12–20; TEMP 36.1–36.4; O2SAT 96–100
[2024-11-21] MEDS: MIDODRINE 5 MG TABLET 10 MG PO ×3 (05:08→22:38)
[2024-11-21] MEDS: LACTULOSE SYRUP 20 GM/30 ML UDC PO ×3 (05:08→22:37)
[2024-11-21 06:08] LABS: Basophils # (Auto) 0.0 Thou/mm3 (0.0-0.2); Basophils % (Auto) 1 % (0-2.5); Eosinophils # (Auto) 0.2 Thou/mm3 (0.0-0.5); Mean Corpuscular HGB Conc 33.5 g/dl (31.0-37.0); Monocytes # (Auto) 0.3 Thou/mm3 (0.0-0.8); Monocytes % (Auto) 10 % (0-12); Neutrophils # (Auto) 1.8 Thou/mm3 (1.8-7.7); Nucleated Red Blood Cell # 0.00 Thou/mm3 (0.00-0.00); Nucleated Red Blood Cell % 0 /100 WBC (0)
[2024-11-21 06:09] LABS: Eosinophils % (Auto) 5 % (0-10); Hematocrit 23.9 % (36.0-46.0); Immature Granulocytes Auto 0.01 Thou/mm3 (0.00-0.00); Lymphocytes # (Auto) 0.9 Thou/mm3 (1.0-4.8); Lymphocytes % (Auto) 28 % (10-50); Mean Corpuscular Hemoglobin 36.4 pg (25.0-35.0); Mean Corpuscular Volume 109 fL (80-100); Neutrophils % (Auto) 57 % (37-80); RDW Standard Deviation 75.7 fL (36.4-46.3); Red Blood Count 2.20 Miln/mm3 (4.00-5.20); White Blood Count 3.2 Thou/mm3 (3.6-11.0)
[2024-11-21 06:31] LABS: Hemoglobin 8.0 g/dL (12.0-16.0)
[2024-11-21 06:32] LABS: Platelet Count 25 Thou/mm3 (140-440); Slide Review Platelets confirmed
[2024-11-21 06:42] LABS: Alanine Aminotransferase 15 U/L (10-49); Albumin, Serum 5.0 gm/dL (3.5-5.0); Albumin/Globulin Ratio 2.5 (1.2-2.2); Alkaline Phosphatase 53 U/L (46-116); Anion Gap 13 (7-16); Aspartate Amino Transferase 44 U/L (0-34); BUN/Creatinine Ratio 7 Ratio (12-20); Bilirubin,Total 5.5 mg/dL (0.3-1.2); Blood Urea Nitrogen 10 mg/dL (9-23); Calcium 10.0 mg/dL (8.3-10.6); Calcium (Corrected) 10.0 mg/dL (8.5-10.1); Carbon Dioxide 24.4 mMol/L (20.0-31.0); Chloride 109 mMol/L (98-107); Creatinine (Component) 1.4 mg/dL (0.6-1.3); Estimated Creatinine Clearance 36.0 mL/min (>60); Globulin 2.0 gm/dL (2.3-3.5); Glucose 166 mg/dL (74-106); Magnesium 2.5 mg/dL (1.6-2.6); Osmolality,Calculated 293 (275-295); Potassium 5.7 mMol/L (3.4-5.1); Sodium 146 mMol/L (136-145); Total Protein 7.0 gm/dL (5.7-8.2); eGFR 45 See Note
[2024-11-21] MEDS: DEXTROSE 50%-WATER INJ 50 ML SYRINGE 25 ML IVP (07:17)
[2024-11-21] MEDS: INSULIN HUM REGULAR 1 UNIT/0.01 ML (PER UNIT) 5 UNIT IV (07:22)
[2024-11-21] MEDS: ALBUTEROL RT 2.5 MG/0.5 ML NEBU 10 MG INH (07:43)
[2024-11-21] MEDS: PANTOPRAZOLE 40 MG TABLET PO ×2 (09:04→20:33)
[2024-11-21] MEDS: LINEZOLID 600 MG TABLET PO ×2 (09:04→20:34)
[2024-11-21] MEDS: FOLIC ACID 1 MG TABLET 2.5 MG PO (09:05)
[2024-11-21 09:09] LABS: Potassium 5.2 mMol/L (3.4-5.1)
[2024-11-21] MEDS: SOD POLYSTYRENE SULFON SUSP 15 GM/60 ML BTL 30 GM PO (09:09)
[2024-11-21] MEDS: INSULIN DEGLUDEC 5 UNIT/0.05 ML (PER 5 UNITS) 8 UNIT SC (09:13)
--- NOTE | 2024-11-21 09:14 | PD.RESPRO ---
Documentation for date of: 11/21/24 Subjective Subjective Interval history: Ms. Knight is a 54-year-old lady who has extensive history of liver cirrhosis secondary to alcoholism (under liver transplant team) recurrent admissions for hepatic encephalopathy, upper GI bleed due to varices/banding, chronic pain syndrome, DM presented to the emergency department with 2 episodes of hematemesis going on for the last few days associated with altered mental status generalized pain weakness and poor p.o. intake. Denies any fever or chills. In the ED patient was noted to be hypotensive. She was given gentle IV fluids, albumin started on home midodrine and lactulose. Admitted to telemetry. Nephrology consultation requested in view of LILY. Patient well-known to me from previous admissions. Home medications included vitamin D, furosemide, [place], last close, metformin, methocarbamol, midodrine, Remeron, Protonix, rifaximin, spironolactone. Labs showed hemoglobin 10.3, platelets 30. Sodium 140, potassium 4.5, BUN 29, creatinine 2.4 of note 10/16/2023 her creatinine is 1.0., Calcium 10.8, magnesium 2.3, total bilirubin 6.7, AST 45, ALT 18, alk phos 96, albumin 2.9, urinalysis shows 2+ blood with 20 RBCs. 11/16/2024 patient currently seen in telemetry. Resting comfortably. Labs/medications reviewed. Urine output improving. She has a Liz catheter. Blood pressure 126/73, heart rate 83. WBC 1.8, hemoglobin 7.8, platelets 22. Creatinine improved to 1.6, sodium 144, potassium 3.9. Albumin 4.4. Patient had endoscopy yesterday. Patient in contact isolation for VRE UTI. Did receive IV fluids, albumin. Will continue albumin. Discharge planning per primary team. Did explain to the patient that she will have recurrent hospitalizations for complications from liver cirrhosis. 11/17/2024 patient seen in telemetry. Liz catheter removd. She continues to report diffuse body aches and generalized pain with significant tenderness to light touch, as well as weakness and discomfort on passive movement of the limbs. Symptoms consistent with deconditioning and overall deterioration from prolonged bed rest. Will benefit from physical therapy evaluation for mobility and strength support. Blood pressure 131/86, heart rate 81. WBC 3.0, hemoglobin 7.9, platelets 23, creatinine 1.5, sodium 147, potassium 4.6, albumin 4.8. She is cleared from a nephrology standpoint. 11/19/2024 patient seen in telemetry this morning. Reports feeling overall better with resolution of body aches, only mild back pain at this time. Completed 5-day octreotide course. Urine culture from 11/17 positive for VRE; started on linezolid yesterday per primary team. Liz catheter removed; patient voiding spontaneously with adequate output. BP 127/74, HR 82. Labs: Hgb 7.8, WBC 2.5, Plt 21, Na 146, K 5.2, Cl 109, Cr 1.3, total bilirubin 5.1, albumin 5.3. Will monitor potassium closely. Recommend holding spironolactone given hyperkalemia and improving renal function. 11/20/2024 patient seen in telemetry today. She continues to report feeling better overall, with improved appetite and less generalized discomfort. No new complaints of abdominal pain, shortness of breath, or nausea. Back pain mild and controlled. Liz remains out, patient voiding without difficulty. Vitals stable with BP 96/69 and HR 67. Labs today: WBC 3.7, Hgb 9.2, Plt 26, Na 144, K 5.4, Cl 107, HCO3 26, Ca 10.2, total bilirubin 6.2. Received 15 g Kayexalate this morning for hyperkalemia. Will continue to monitor potassium and renal function closely. 11/21/2024 patient seen in telemetry today. Complains of generalized pain, described as unchanged from prior, neither worse nor improved. Denies nausea, vomiting, chest pain, or shortness of breath. Liz remains out; continues to void adequately. BP 108/56, HR 73. Labs today: Hgb 8.0, Plt 25, Na 146, K 5.7, Ca 10.0, Mg 2.5. Hyperkalemia noted; management per primary team. Exam Vital Signs Temp Pulse Resp BP Pulse Ox O2 Del Method O2 Flow Rate 97.0 F 67 12 98/54 L 100 Room Air 2 11/21/24 08:00 11/21/24 08:00 11/21/24 08:00 11/21/24 08:00 11/21/24 08:00 11/21/24 08:00 11/21/24 08:00 Narrative Exam GENERAL APPEARANCE: Patient currently seen in telemetry, resting comfortably. Appears weak but improved from prior days. Scleral icterus noted. NECK: Neck supple, no JVD or bruit. CARDIOVASCULAR: Heart regular, no murmurs. LUNGS/CHEST: Clear to auscultation. No rales, rhonchi, or wheezing. ABDOMEN: Soft, nontender, nondistended. Normal bowel sounds. Ascites present. EXTREMITIES: Right arm swelling resolved. No new edema. SKIN: Jaundiced, no new lesions or rashes. MUSCULOSKELETAL: In bed, mild back discomfort on palpation. NEUROLOGICAL: Awake, alert, oriented ?3. No asterixis. Objective Labs 11/21/24 05:42 11/21/24 19:01 Labs: Laboratory Results - last 24 hr 11/20/24 11/20/24 11/21/24 10:48 19:00 05:42 WBC 3.2 L RBC 2.20 L Hgb 8.0 L Hct 23.9 L MCV 109 H MCH 36.4 H MCHC 33.5 RDW Std Deviation 75.7 H Plt Count 25 L* Neut % (Auto) 57 Lymph % (Auto) 28 [place] % (Auto) 10 Eos % (Auto) 5 Baso % (Auto) 1 Neut # (Auto) 1.8 Lymph # (Auto) 0.9 L [place] # (Auto) 0.3 Eos # (Auto) 0.2 Baso # (Auto) 0.0 Immature Gran # (Auto) 0.01 H Absolute Nucleated RBC 0.00 Immature Gran % 0 Nucleated RBC % 0 Sodium 146 H Potassium 5.3 H 5.5 H 5.7 H Chloride 109 H Carbon Dioxide 24.4 Anion Gap 13 BUN 10 Creatinine 1.4 H Estim Creat Clear Calc 36.0 L eGFR 45 L BUN/Creatinine Ratio 7 L Glucose 166 H D Calculated Osmolality 293 Calcium 10.0 Corrected Calcium 10.0 Magnesium 2.5 Total Bilirubin 5.5 H D AST 44 H ALT 15 Alkaline Phosphatase 53 Total Protein 7.0 Albumin 5.0 Globulin 2.0 L Albumin/Globulin Ratio 2.5 H Misc Test Result Platelets confirmed Quality Measures Quality Measures VTE prophylaxis Assessment & Plan Assessment Current Active Medications: Generic Name Dose Route Start Last Admin Trade Name Freq PRN Reason Stop Dose Admin Acetaminophen 650 mg 11/13/24 15:30 Acetaminophen 325 Mg Tablet PO 12/13/24 15:29 Q6H PRN PAIN 1-3 OR FEVER > 101 Cyanocobalamin 1,000 mcg 11/14/24 09:00 11/21/24 09:04 Cyanocobalamin 500 Mcg Tablet PO 12/14/24 08:59 1,000 mcg DAILY CELINA Administration Dextrose 25 ml 11/13/24 17:21 Dextrose 50%-Water Inj 50 Ml Syringe IV 12/13/24 17:20 Q15MIN PRN BG 50-70 responsive npo pt Dextrose 50 ml 11/13/24 17:21 Dextrose 50%-Water Inj 50 Ml Syringe IV 12/13/24 17:20 Q15MIN PRN BG <50 OR BG <70 & pt unresponsive Folic Acid 2.5 mg 11/14/24 09:00 11/21/24 09:05 Folic Acid 1 Mg Tablet PO 12/14/24 08:59 2.5 mg DAILY CELINA Administration Glucagon 1 mg 11/13/24 17:21 Glucagon Inj 1 Mg Vial IM Q15MIN PRN BG <70, and no IV access Insulin Degludec 8 unit 11/18/24 14:30 11/20/24 08:07 Insulin Degludec 5 Unit/0.05 Ml (Per 5 Units) SC 12/18/24 14:29 8 unit QDAY CELINA Administration Insulin Human Lispro 0 unit 11/16/24 10:15 11/21/24 07:27 Insulin Lispro (Admelog) 1 Unit/0.01 Ml Unit SC 12/16/24 10:14 Not Given AC CELINA Protocol Lactulose 20 gm 11/19/24 14:00 11/21/24 05:08 Lactulose Syrup 20 Gm/30 Ml Udc PO 12/19/24 13:59 20 gm TID CELINA Administration Protocol Linezolid 600 mg 11/18/24 11:15 11/21/24 09:04 Linezolid 600 Mg Tablet PO 11/25/24 11:14 600 mg BID CELINA Administration Midodrine 10 mg 11/17/24 14:00 11/21/24 05:08 Midodrine 5 Mg Tablet PO 12/17/24 13:59 10 mg TID CELINA Administration Ondansetron HCl 4 mg 11/20/24 10:43 11/20/24 10:52 Ondansetron Inj 2 Mg/Ml Inj 2 Ml IVP 12/20/24 10:42 4 mg Q6HR PRN Administration NAUSEA OR VOMITING Protocol Pantoprazole Sodium 40 mg 11/19/24 21:00 11/21/24 09:04 Pantoprazole 40 Mg Tablet PO 12/19/24 20:59 40 mg BID CELINA Administration Protocol Sodium Chloride 3 ml 11/21/24 07:03 Sodium Chloride Rt Karis 0.9% 3 Ml Nebu INH 12/21/24 07:02 PRN PRN SOLN Spironolactone 50 mg 11/16/24 10:15 11/18/24 08:50 Spironolactone 25 Mg Tablet PO 12/16/24 10:14 50 mg On Hold: 11/19/24 06:52 DAILY CELINA Administration Plan 53-year-old female with decompensated alcoholic cirrhosis and recurrent hepatic encephalopathy, admitted for hematemesis and altered mental status, found to have LILY and now VRE UTI. #LILY, likely prerenal azotemia Improving; creatinine stable 1.4, urine output stable. Likely secondary to poor oral intake and volume depletion. Continue albumin support Continue midodrine Maintain euvolemia; monitor daily weights and I/O Electrolytes stable but mild hyperkalemia (K 5.7) noted?primary team managing Hold spironolactone temporarily Encourage oral fluids as tolerated Cleared from nephrology standpoint #Acute metabolic encephalopathy #Hepatic encephalopathy In the setting of underlying cirrhosis Continue with lactulose, rifaximin, albumin #Decompensated cirrhosis, with sequela #Thrombocytopenia #Coagulopathy #Hyperbilirubinemia Child-[place] class C 13 points Completed 5-day octreotide course for varices. MELD sodium 22 points with 19.6% 3-month mortality Continue lactulose, rifaximin, albumin, midodrine Outpatient hepatology follow up for liver transplant evaluation #Macrocytic anemia Chronic, stable Likely from history of alcohol abuse ----- Plan discussed with attending physician Dr. Yenny Raya MD PGY-1 Internal Medicine Attending Provider Attestation/Addendum Patient seen and examined with resident physician Dr. Raya. Note reviewed, agree with findings and recommendations. LILY secondary to prerenal azotemia-creatinine improving
[2024-11-21] MEDS: ALBUMIN HUMAN-KJDA 25% IVPB 25 GM/100 ML BTL IV ×4 (10:35→22:37)
[2024-11-21] MEDS: INSULIN LISPRO (AdmeLOG) 1 UNIT/0.01 ML UNIT SC ×2 (12:05→17:36)
--- NOTE | 2024-11-21 13:17 | PD.RESPRO ---
Documentation for date of: 11/21/24 Subjective Subjective Interval history: Patient was seen and evaluated at the bedside this morning. No acute overnight events. Patient's potassium did uptrend this morning to 5.7 even though last night she was given insulin albuterol due to hyperkalemia. Patient was given hyperkalemic cocktail and will repeat renal function panel. Patient's creatinine also did go up to 1.4 therefore we will also start volume expansion with albumin to increase intravascular volume. Some tremor still seen with extended upper extremities. Pain is better managed today. Otherwise vitals have been stable. Possible DC in next 24-48hrs. Exam Vital Signs Temp Pulse Resp BP Pulse Ox O2 Del Method O2 Flow Rate 97.3 F 75 16 107/56 L 97 Room Air 2 11/21/24 12:00 11/21/24 12:00 11/21/24 12:00 11/21/24 12:00 11/21/24 12:00 11/21/24 12:00 11/21/24 08:00 Narrative Exam General: A/O x3, no acute distress, ill appearing Eyes: PERRL, EOMI. Icteric, vision grossly intact. Ears: No ear pain, no ear discharge, Hearing grossly intact. Nose: No nasal discharge. Mouth/Throat: Dry mucous membranes, no redness, no lesions. Neck: Neck supple, non-tender, no cervical lymphadenopathy. Lungs: Clear LUIS ENRIQUE to auscultation and percussion, No accessory muscle use. Cardio: Normal S1/S2, regular rhythm, no murmurs, no JVD or carotid bruits. Abdomen: Soft, but distended and mildly generalized tender, no palpable masses, peristalsis present, no guarding or rebound. Extremities: Symmetrical, no significant deformities, no peripheral edema , non-tender, peripheral pulses presents. still Luis Enrique UE tremors when extended Skin: No rashes, no lesions, warm to touch. Neuro: No focal neurological deficits. motor and sensory intact Psych: Cooperative, appropriate mood and effect. Objective Labs 11/22/24 09:52 11/22/24 05:15 Labs: Laboratory Results - last 24 hr 11/20/24 11/21/24 11/21/24 19:00 05:42 08:04 WBC 3.2 L RBC 2.20 L Hgb 8.0 L Hct 23.9 L MCV 109 H MCH 36.4 H MCHC 33.5 RDW Std Deviation 75.7 H Plt Count 25 L* Neut % (Auto) 57 Lymph % (Auto) 28 [place] % (Auto) 10 Eos % (Auto) 5 Baso % (Auto) 1 Neut # (Auto) 1.8 Lymph # (Auto) 0.9 L [place] # (Auto) 0.3 Eos # (Auto) 0.2 Baso # (Auto) 0.0 Immature Gran # (Auto) 0.01 H Absolute Nucleated RBC 0.00 Immature Gran % 0 Nucleated RBC % 0 Sodium 146 H Potassium 5.5 H 5.7 H 5.2 H D Chloride 109 H Carbon Dioxide 24.4 Anion Gap 13 BUN 10 Creatinine 1.4 H Estim Creat Clear Calc 36.0 L eGFR 45 L BUN/Creatinine Ratio 7 L Glucose 166 H D Calculated Osmolality 293 Calcium 10.0 Corrected Calcium 10.0 Magnesium 2.5 Total Bilirubin 5.5 H D AST 44 H ALT 15 Alkaline Phosphatase 53 Total Protein 7.0 Albumin 5.0 Globulin 2.0 L Albumin/Globulin Ratio 2.5 H Misc Test Result Platelets confirmed Quality Measures Quality Measures VTE prophylaxis Assessment & Plan Assessment Current Active Medications: Generic Name Dose Route Start Last Admin Trade Name Freq PRN Reason Stop Dose Admin Acetaminophen 650 mg 11/13/24 15:30 Acetaminophen 325 Mg Tablet PO 12/13/24 15:29 Q6H PRN PAIN 1-3 OR FEVER > 101 Hydrocodone Bitart/Acetaminophen 1 tab 11/21/24 09:50 Hydrocodone/Apap 5/325 Tablet PO 11/26/24 09:49 Q6HR PRN PAIN SCALE 4-10(Mod-Sev Cyanocobalamin 1,000 mcg 11/14/24 09:00 11/21/24 09:04 Cyanocobalamin 500 Mcg Tablet PO 12/14/24 08:59 1,000 mcg DAILY CELINA Administration Dextrose 25 ml 11/13/24 17:21 Dextrose 50%-Water Inj 50 Ml Syringe IV 12/13/24 17:20 Q15MIN PRN BG 50-70 responsive npo pt Dextrose 50 ml 11/13/24 17:21 Dextrose 50%-Water Inj 50 Ml Syringe IV 12/13/24 17:20 Q15MIN PRN BG <50 OR BG <70 & pt unresponsive Folic Acid 2.5 mg 11/14/24 09:00 11/21/24 09:05 Folic Acid 1 Mg Tablet PO 12/14/24 08:59 2.5 mg DAILY CELINA Administration Glucagon 1 mg 11/13/24 17:21 Glucagon Inj 1 Mg Vial IM Q15MIN PRN BG <70, and no IV access Albumin Human 25 gm in 100 mls @ 100 mls/hr 11/21/24 09:51 11/21/24 10:35 Albuminex 25% Ivpb IV 11/25/24 23:00 100 mls/hr BID CELINA Administration Protocol Albumin Human 25 gm in 100 mls @ 100 mls/hr 11/21/24 11:00 11/21/24 11:29 Albuminex 25% Ivpb IV 11/25/24 10:59 100 mls/hr BID@1000,2200 CELINA Administration Protocol Insulin Degludec 8 unit 11/18/24 14:30 11/21/24 09:13 Insulin Degludec 5 Unit/0.05 Ml (Per 5 Units) SC 12/18/24 14:29 8 unit QDAY CELINA Administration Insulin Human Lispro 0 unit 11/16/24 10:15 11/21/24 12:05 Insulin Lispro (Admelog) 1 Unit/0.01 Ml Unit SC 12/16/24 10:14 1 unit AC CELINA Administration Protocol Lactulose 20 gm 11/19/24 14:00 11/21/24 05:08 Lactulose Syrup 20 Gm/30 Ml Udc PO 12/19/24 13:59 20 gm TID CELINA Administration Protocol Linezolid 600 mg 11/18/24 11:15 11/21/24 09:04 Linezolid 600 Mg Tablet PO 11/25/24 11:14 600 mg BID CELINA Administration Midodrine 10 mg 11/17/24 14:00 11/21/24 05:08 Midodrine 5 Mg Tablet PO 12/17/24 13:59 10 mg TID CELINA Administration Ondansetron HCl 4 mg 11/20/24 10:43 11/20/24 10:52 Ondansetron Inj 2 Mg/Ml Inj 2 Ml IVP 12/20/24 10:42 4 mg Q6HR PRN Administration NAUSEA OR VOMITING Protocol Pantoprazole Sodium 40 mg 11/19/24 21:00 11/21/24 09:04 Pantoprazole 40 Mg Tablet PO 12/19/24 20:59 40 mg BID CELINA Administration Protocol Sodium Chloride 3 ml 11/21/24 07:03 Sodium Chloride Rt Karis 0.9% 3 Ml Nebu INH 12/21/24 07:02 PRN PRN SOLN Spironolactone 50 mg 11/16/24 10:15 11/18/24 08:50 Spironolactone 25 Mg Tablet PO 12/16/24 10:14 50 mg On Hold: 11/19/24 06:52 DAILY CELINA Administration Plan Elzbieta Knight is a 54F pmhx of significant for decompensated alcoholic cirrhosis, multiple admissions for hepatic encephalopathy, hx of prior variceal bleeding s/p banding, chronic pain, NIDDM2 presented to [facility] 11/13 for altered mental status, weakness and 2 episodes of hematemesis admitted for hepatic encephalopathy likely secondary to decompensated alcoholic cirrhosis, found to have LILY, later developing leukopenia. #UTI, VRE #LILY, prerenal, improving #Hematuria 2/2 thrombopenia and/or VRE UTI #Hx of VRE UTI #Hyperkalemia Patient presented with creatinine of 2.4 and BUN of 30, baseline creatinine 0.9-1. Admission UA showed 1+ blood, 18 RBC and 5 WBC. Patient has presented with history of increased creatinine on chart review and at the time was diagnosed with LILY Ddx includes prerenal LILY secondary to dehydration with nausea vomiting and lactulose, hepatorenal isohepatic encephalopathy, UTI as patient repeat UA 2+ blood, +LE and 28 WBC UCx grew VRE sensitive only to daptomycin, gentamicin synergy screen, and linezolid Plan: - Restarted Albumin 50gm BID -Hyperkalemia cocktail and repeat RFT ordered - Renal diet - PO linezolid 600 mg q12h (11/18-11/25) - ID consulted, recs appreciated: linezolid for 7 days - Hold spironolactone 50 mg due to hyperkalemia - Strict Is/Os, daily weights - Avoid nephrotoxic medications and renally dose - If creatinine continues to uptrend, consider urine electrolytes - Given hematuria, patient will need to follow-up outpatient with repeat UA #Hepatic encephalopathy 2/2 #Decompensated cirrhosis, likely alcoholic #Thrombocytopenia, stable #Hyperammonemia #Hypoalbuminemia, resolved #Coagulopathy Patient presented with altered mental status for the past 2 days with generalized weakness with severe asterixis. Patient has been seen multiple times at [facility] for hepatic encephalopathy. On admission, ammonia level elevated at 153, BUN 30, creatinine 2.4, troponin 0.031, platelet 32 decreased to 20, PT 17.7, INR 1.7. EKG NSR rate 81 and CXR showed poor inspiratory effort. UDS only positive for opiates. Patient is currently starting transplant process with appointments. Although patient reports being adherent to medication, patient continues to present with decompensated cirrhosis and hepatic encephalopathy. Likely that medication outpatient is not adequately decreasing ammonia levels and may need to be increased. Noted that patient is on Rifaximin 550 mg twice daily however it has not filled since 10/01/2024. Hypoalbuminemia, thrombocytopenia, coagulopathy likely secondary to cirrhosis. Admission MELD 3.0: 31, 68.3% 90 day survival. Child [place] Class C. Maddre[place]: 32.7, poor prognosis Albumin (11/14-11/18) Plan: - Rifamixin 550 mg BID and Lactulose 20 g TID - Continue home midodrine 10 mg TID - CTM mental status and repeat ammonia levels if patient continues to be altered - Consider Lasix if patient becomes clinically fluid overloaded - No platelet transfusion at this time as patient is hemodynamically stable with blood pressure holding and HR wnl, consider platelet transfusion if platelet becomes hemodynamically unstable - PT ordered, recommends home with home health #Abdominal pain #Allodynia After improvement of encephalopathy, patient reported severe abdominal pain to light touch as well as with diffuse tenderness to palpation over entire body, latter was not present on previous admissions. Per mother, patient has experienced skin sensitivity in the past. Denies weakness. Likely 2/2 cirrhosis. Suspicion of peritonitis low but cannot be excluded due to recent hematemesis and hx of variceal bleeding. Allodynia may be related to uremia vs fibromyalgia. Plan: - CTM abdominal pain - [place] 7.5 q6h prn #Hematemesis #Gastritis with recent mucusal bleeding #Grade I non-bleeding esophageal varicies at lower third of esophagus #Hx of Grade III esophageal varicies s/p banding 06/13/24 Patient's mother at bedside reports 2 episodes of hematemesis. Prior to admission about a spoonful of bright red blood and first episode a week before admission with about 2-3 spoonfuls of blood. FOBT positive Patient does have a history of grade 3 esophageal varices which were banded, however hemoglobin currently stable in the 10s, which is increased from previous admission in September where hemoglobin was 8-9 and patient has not had any further hematemesis, melena or hematochezia at this time. 11/14 EGD showed grade I esophageal varicies found in lower third of esophagus, diffuse severely erythematous mucosa with stigmata of recent bleeding found in entire stomach, mucosal oozing of blood due to hypertensive portal gastropathy, duodenum normal Octreotide drip (11/13-11/18) Plan: - Continue IV pantoprazole 40 mg BID - GI consulted, appreciate recs: 2g sodium diet #Leukopenia Patient WBC on 11/15 decreased from 3.8 to 1.8 with ANC 900. Per chart review, patient has fluctuated lowest being in the 2.0's. Likely secondary to cirrhosis and VRE UTI. Plan: - CTM CBC #Urinary retention, resolved Night of admission, patient developed urinary retention with bladder scan showing 500 cc of retained urine. DDx includes urinary tract infection, encephalopathy vs home methocarbamol s/e profile Liz (11/14-11/15), s/p bladder training Plan: - CTM urine output #Chronic pain Reports chronic pain since back injury years ago, currently has been taking [place] TID for at least a month. Pain on admission is generalized with tenderness to palpation over the entire body which has improved as mental status improves. Plan: - Pain scale regimen #NIDDM2 Last A1c 6.0 09/2024. On metformin 1g QD at home. Plan: - Degludac 8u - SSI Disposition: Patient pending improvement in LILY. Diet: low sodium and renal GI prophylaxis: protonix DVT prophylaxis: SCDs Code: Full code Case disclosed with Attending Dr. Adalberto Plata PGY2 Disclaimer: Even though this this note was dictated by speech recognition and even though it was carefully revised there may still be minor errors in director zone due to voice recognition software. Attending Provider Attestation/Addendum I have discussed and was present for the essential components of the history, physical examination, diagnosis, and treatment plan with the resident. I agree with the patient's care as documented by the resident and amended herein by me. Dickson Glover DO. Although this document has been carefully reviewed, there may still be some phonetic and other typographical errors. These errors are purely grammatical due to imperfections in the software program and should not be construed in any way to compromise the substance of the patient's medical care during this visit.
--- NOTE | 2024-11-21 13:46 | ESPR_ITS ---
Subjective Subjective Interval history: if you would like 7d of consecutive rx. then finish linezolid on 12/26. ok to finish as outpt Exam Vital Signs Temp Pulse Resp BP Pulse Ox O2 Del Method O2 Flow Rate 97.3 F 75 16 107/56 L 97 Room Air 2 11/21/24 12:00 11/21/24 12:00 11/21/24 12:00 11/21/24 12:00 11/21/24 12:00 11/21/24 12:00 11/21/24 08:00 Narrative Exam limited eval Objective - Internal Medicine Labs 11/21/24 05:42 11/21/24 08:04 Labs: Laboratory Results - last 24 hr 11/20/24 11/21/24 11/21/24 19:00 05:42 08:04 WBC 3.2 L RBC 2.20 L Hgb 8.0 L Hct 23.9 L MCV 109 H MCH 36.4 H MCHC 33.5 RDW Std Deviation 75.7 H Plt Count 25 L* Neut % (Auto) 57 Lymph % (Auto) 28 [place] % (Auto) 10 Eos % (Auto) 5 Baso % (Auto) 1 Neut # (Auto) 1.8 Lymph # (Auto) 0.9 L [place] # (Auto) 0.3 Eos # (Auto) 0.2 Baso # (Auto) 0.0 Immature Gran # (Auto) 0.01 H Absolute Nucleated RBC 0.00 Immature Gran % 0 Nucleated RBC % 0 Sodium 146 H Potassium 5.5 H 5.7 H 5.2 H D Chloride 109 H Carbon Dioxide 24.4 Anion Gap 13 BUN 10 Creatinine 1.4 H Estim Creat Clear Calc 36.0 L eGFR 45 L BUN/Creatinine Ratio 7 L Glucose 166 H D Calculated Osmolality 293 Calcium 10.0 Corrected Calcium 10.0 Magnesium 2.5 Total Bilirubin 5.5 H D AST 44 H ALT 15 Alkaline Phosphatase 53 Total Protein 7.0 Albumin 5.0 Globulin 2.0 L Albumin/Globulin Ratio 2.5 H Misc Test Result Platelets confirmed Assessment & Plan A&P Narrative uti , mild with vre as only germ found po linezolid ok for this for total of 7d, cirrhosis, etoh related home at your discretion.if abd pain persists, then evaluate ascites will see again prn Time Spent With Patient Time: Total time spent is greater than 50% in coordination of care (as documented) at patient's floor/unit and/or counseling patient:
--- NOTE | 2024-11-21 14:36 | PC.SS ---
rounding note: repeat renal panel. Patient still not ready medically for discharge.
[2024-11-21 15:25] LABS: Albumin, Serum 5.8 gm/dL (3.5-5.0); Anion Gap 14 (7-16); BUN/Creatinine Ratio 9 Ratio (12-20); Blood Urea Nitrogen 13 mg/dL (9-23); Calcium 10.2 mg/dL (8.3-10.6); Calcium (Corrected) 10.2 mg/dL (8.5-10.1); Carbon Dioxide 24.8 mMol/L (20.0-31.0); Chloride 108 mMol/L (98-107); Creatinine (Component) 1.5 mg/dL (0.6-1.3); Estimated Creatinine Clearance 33.6 mL/min (>60); Glucose 156 mg/dL (74-106); Osmolality,Calculated 295 (275-295); Phosphorous 3.7 mg/dL (2.4-5.1); Potassium 5.3 mMol/L (3.4-5.1); Sodium 147 mMol/L (136-145); eGFR 41 See Note
--- NOTE | 2024-11-21 16:16 | XR_ITS ---
Examination: Abdomen sonogram, Limited Date and time of exam: November 21, 2024, 1722 hours INDICATIONS: Diagnosis cirrhosis, increasing abdominal distention this week Technique: Real-time sifuentes scale transabdominal sonographic images of the upper abdomen obtained. Findings: Minimal ascitic fluid IMPRESSION: Minimal ascitic fluid
[2024-11-21] MEDS: OCTREOTIDE ACET INJ 1,000 MCG in SODIUM CHLORIDE 0.9% 100 ML 5.1 MCG IV (17:22)
[2024-11-21 19:25] LABS: Albumin, Serum 5.4 gm/dL (3.5-5.0); Anion Gap 14 (7-16); BUN/Creatinine Ratio 9 Ratio (12-20); Blood Urea Nitrogen 12 mg/dL (9-23); Calcium 10.2 mg/dL (8.3-10.6); Calcium (Corrected) 10.2 mg/dL (8.5-10.1); Carbon Dioxide 24.1 mMol/L (20.0-31.0); Chloride 108 mMol/L (98-107); Creatinine (Component) 1.4 mg/dL (0.6-1.3); Estimated Creatinine Clearance 36.0 mL/min (>60); Glucose 217 mg/dL (74-106); Osmolality,Calculated 297 (275-295); Phosphorous 3.4 mg/dL (2.4-5.1); Potassium 5.1 mMol/L (3.4-5.1); Sodium 146 mMol/L (136-145); eGFR 45 See Note
--- NOTE | 2024-11-21 20:32 | PD.IMPROG ---
Documentation for date of: 11/21/24 Subjective Subjective Interval history: Patient evaluated Not eating very well Hemoglobin hematocrit 8.0 and 23.9 somewhat downtrending platelet count of 25,000 BUN/creatinine 12 and 1.4 Exam Vital Signs Temp Pulse Resp BP Pulse Ox O2 Del Method O2 Flow Rate 97.6 F 70 19 124/70 98 Room Air 2 11/21/24 20:00 11/21/24 20:00 11/21/24 20:00 11/21/24 20:00 11/21/24 20:00 11/21/24 20:00 11/21/24 08:00 Objective Labs 11/21/24 05:42 11/21/24 19:01 Labs: Laboratory Results - last 24 hr 11/21/24 11/21/24 11/21/24 05:42 08:04 14:17 WBC 3.2 L RBC 2.20 L Hgb 8.0 L Hct 23.9 L MCV 109 H MCH 36.4 H MCHC 33.5 RDW Std Deviation 75.7 H Plt Count 25 L* Neut % (Auto) 57 Lymph % (Auto) 28 [place] % (Auto) 10 Eos % (Auto) 5 Baso % (Auto) 1 Neut # (Auto) 1.8 Lymph # (Auto) 0.9 L [place] # (Auto) 0.3 Eos # (Auto) 0.2 Baso # (Auto) 0.0 Immature Gran # (Auto) 0.01 H Absolute Nucleated RBC 0.00 Immature Gran % 0 Nucleated RBC % 0 Sodium 146 H 147 H Potassium 5.7 H 5.2 H D 5.3 H Chloride 109 H 108 H Carbon Dioxide 24.4 24.8 Anion Gap 13 14 BUN 10 13 Creatinine 1.4 H 1.5 H Estim Creat Clear Calc 36.0 L 33.6 L eGFR 45 L 41 L BUN/Creatinine Ratio 7 L 9 L Glucose 166 H D 156 H Calculated Osmolality 293 295 Calcium 10.0 10.2 Corrected Calcium 10.0 10.2 H Phosphorus 3.7 Magnesium 2.5 Total Bilirubin 5.5 H D AST 44 H ALT 15 Alkaline Phosphatase 53 Total Protein 7.0 Albumin 5.0 5.8 H D Globulin 2.0 L Albumin/Globulin Ratio 2.5 H Misc Test Result Platelets confirmed 11/21/24 19:01 WBC RBC Hgb Hct MCV MCH MCHC RDW Std Deviation Plt Count Neut % (Auto) Lymph % (Auto) [place] % (Auto) Eos % (Auto) Baso % (Auto) Neut # (Auto) Lymph # (Auto) [place] # (Auto) Eos # (Auto) Baso # (Auto) Immature Gran # (Auto) Absolute Nucleated RBC Immature Gran % Nucleated RBC % Sodium 146 H Potassium 5.1 Chloride 108 H Carbon Dioxide 24.1 Anion Gap 14 BUN 12 Creatinine 1.4 H Estim Creat Clear Calc 36.0 L eGFR 45 L BUN/Creatinine Ratio 9 L Glucose 217 H D Calculated Osmolality 297 H Calcium 10.2 Corrected Calcium 10.2 H Phosphorus 3.4 Magnesium Total Bilirubin AST ALT Alkaline Phosphatase Total Protein Albumin 5.4 H Globulin Albumin/Globulin Ratio Misc Test Result Impressions Impression: # Hepatic encephalopathy patient somewhat more somnolent Will get ammonia level # Thrombocytopenia # Upper GI bleed secondary to mucosal oozing of blood in the setting of cirrhotic liver disease Will follow the patient Assessment & Plan A&P Narrative uti , mild with vre as only germ found po linezolid ok for this for total of 7d, cirrhosis, etoh related home at your discretion.if abd pain persists, then evaluate ascites will see again prn Time Spent With Patient Time: Total time spent is greater than 50% in coordination of care (as documented) at patient's floor/unit and/or counseling patient:
[2024-11-21] MEDS: HYDROcodone/APAP 5/325 TABLET 1 TAB PO (22:37)
[2024-11-22] VITALS (9 sets, daily range): BP systolic 108–145; BP diastolic 61–78; PULSE 66–84; RESP 13–17; TEMP 36.1–36.9; O2SAT 90–99; BMI 25.6
[2024-11-22] MEDS: MIDODRINE 5 MG TABLET 10 MG PO ×2 (05:16→14:33)
[2024-11-22] MEDS: LACTULOSE SYRUP 20 GM/30 ML UDC PO ×3 (05:16→22:23)
[2024-11-22 06:24] LABS: Alanine Aminotransferase 10 U/L (10-49); Albumin, Serum 5.1 gm/dL (3.5-5.0); Albumin/Globulin Ratio 3.2 (1.2-2.2); Alkaline Phosphatase 36 U/L (46-116); Anion Gap 12 (7-16); Aspartate Amino Transferase 40 U/L (0-34); BUN/Creatinine Ratio 11 Ratio (12-20); Bilirubin,Direct 1.6 mg/dL (0.0-0.3); Bilirubin,Total 5.2 mg/dL (0.3-1.2); Blood Urea Nitrogen 14 mg/dL (9-23); Calcium 9.7 mg/dL (8.3-10.6); Calcium (Corrected) 9.7 mg/dL (8.5-10.1); Carbon Dioxide 27.8 mMol/L (20.0-31.0); Chloride 108 mMol/L (98-107); Creatinine (Component) 1.3 mg/dL (0.6-1.3); Estimated Creatinine Clearance 38.7 mL/min (>60); Globulin 1.6 gm/dL (2.3-3.5); Glucose 146 mg/dL (74-106); Osmolality,Calculated 297 (275-295); Potassium 5.1 mMol/L (3.4-5.1); Sodium 148 mMol/L (136-145); Total Protein 6.7 gm/dL (5.7-8.2); eGFR 49 See Note
[2024-11-22 07:19] LABS: Basophils # (Auto) 0.0 Thou/mm3 (0.0-0.2); Basophils % (Auto) 0 % (0-2.5); Eosinophils # (Auto) 0.1 Thou/mm3 (0.0-0.5); Eosinophils % (Auto) 5 % (0-10); Hematocrit 20.9 % (36.0-46.0); Immature Granulocytes Auto 0.01 Thou/mm3 (0.00-0.00); Lymphocytes # (Auto) 0.7 Thou/mm3 (1.0-4.8); Lymphocytes % (Auto) 31 % (10-50); Mean Corpuscular HGB Conc 33.5 g/dl (31.0-37.0); Mean Corpuscular Hemoglobin 36.6 pg (25.0-35.0); Mean Corpuscular Volume 109 fL (80-100); Monocytes # (Auto) 0.2 Thou/mm3 (0.0-0.8); Monocytes % (Auto) 10 % (0-12); Neutrophils # (Auto) 1.2 Thou/mm3 (1.8-7.7); Neutrophils % (Auto) 53 % (37-80); Nucleated Red Blood Cell # 0.00 Thou/mm3 (0.00-0.00); Nucleated Red Blood Cell % 0 /100 WBC (0); RDW Standard Deviation 76.8 fL (36.4-46.3); Red Blood Count 1.91 Miln/mm3 (4.00-5.20); White Blood Count 2.3 Thou/mm3 (3.6-11.0)
[2024-11-22 07:31] LABS: Hemoglobin 7.0 g/dL (12.0-16.0); Platelet Count 19 Thou/mm3 (140-440)
[2024-11-22 08:11] LABS: Partial Thromboplastin Time 70.7 Seconds (22.0-36.0)
[2024-11-22 08:15] LABS: Prothrombin Time > 63.0 Seconds (9.0-12.2)
[2024-11-22] MEDS: ALBUMIN HUMAN-KJDA 25% IVPB 25 GM/100 ML BTL IV ×4 (08:36→22:25)
[2024-11-22] MEDS: FOLIC ACID 1 MG TABLET 2.5 MG PO (08:37)
[2024-11-22] MEDS: INSULIN DEGLUDEC 5 UNIT/0.05 ML (PER 5 UNITS) 8 UNIT SC (08:37)
[2024-11-22] MEDS: PANTOPRAZOLE 40 MG TABLET PO ×2 (08:38→22:24)
[2024-11-22] MEDS: LINEZOLID 600 MG TABLET PO ×2 (08:38→22:24)
[2024-11-22 08:39] LABS: Slide Review Platelets confirmed
--- NOTE | 2024-11-22 09:15 | PD.RESPRO ---
Documentation for date of: 11/22/24 Subjective Subjective Interval history: Ms. Knight is a 54-year-old lady who has extensive history of liver cirrhosis secondary to alcoholism (under liver transplant team) recurrent admissions for hepatic encephalopathy, upper GI bleed due to varices/banding, chronic pain syndrome, DM presented to the emergency department with 2 episodes of hematemesis going on for the last few days associated with altered mental status generalized pain weakness and poor p.o. intake. Denies any fever or chills. In the ED patient was noted to be hypotensive. She was given gentle IV fluids, albumin started on home midodrine and lactulose. Admitted to telemetry. Nephrology consultation requested in view of LILY. Patient well-known to me from previous admissions. Home medications included vitamin D, furosemide, [place], last close, metformin, methocarbamol, midodrine, Remeron, Protonix, rifaximin, spironolactone. Labs showed hemoglobin 10.3, platelets 30. Sodium 140, potassium 4.5, BUN 29, creatinine 2.4 of note 10/16/2023 her creatinine is 1.0., Calcium 10.8, magnesium 2.3, total bilirubin 6.7, AST 45, ALT 18, alk phos 96, albumin 2.9, urinalysis shows 2+ blood with 20 RBCs. 11/16/2024 patient currently seen in telemetry. Resting comfortably. Labs/medications reviewed. Urine output improving. She has a Liz catheter. Blood pressure 126/73, heart rate 83. WBC 1.8, hemoglobin 7.8, platelets 22. Creatinine improved to 1.6, sodium 144, potassium 3.9. Albumin 4.4. Patient had endoscopy yesterday. Patient in contact isolation for VRE UTI. Did receive IV fluids, albumin. Will continue albumin. Discharge planning per primary team. Did explain to the patient that she will have recurrent hospitalizations for complications from liver cirrhosis. 11/17/2024 patient seen in telemetry. Liz catheter removd. She continues to report diffuse body aches and generalized pain with significant tenderness to light touch, as well as weakness and discomfort on passive movement of the limbs. Symptoms consistent with deconditioning and overall deterioration from prolonged bed rest. Will benefit from physical therapy evaluation for mobility and strength support. Blood pressure 131/86, heart rate 81. WBC 3.0, hemoglobin 7.9, platelets 23, creatinine 1.5, sodium 147, potassium 4.6, albumin 4.8. She is cleared from a nephrology standpoint. 11/19/2024 patient seen in telemetry this morning. Reports feeling overall better with resolution of body aches, only mild back pain at this time. Completed 5-day octreotide course. Urine culture from 11/17 positive for VRE; started on linezolid yesterday per primary team. Liz catheter removed; patient voiding spontaneously with adequate output. BP 127/74, HR 82. Labs: Hgb 7.8, WBC 2.5, Plt 21, Na 146, K 5.2, Cl 109, Cr 1.3, total bilirubin 5.1, albumin 5.3. Will monitor potassium closely. Recommend holding spironolactone given hyperkalemia and improving renal function. 11/20/2024 patient seen in telemetry today. She continues to report feeling better overall, with improved appetite and less generalized discomfort. No new complaints of abdominal pain, shortness of breath, or nausea. Back pain mild and controlled. Liz remains out, patient voiding without difficulty. Vitals stable with BP 96/69 and HR 67. Labs today: WBC 3.7, Hgb 9.2, Plt 26, Na 144, K 5.4, Cl 107, HCO3 26, Ca 10.2, total bilirubin 6.2. Received 15 g Kayexalate this morning for hyperkalemia. Will continue to monitor potassium and renal function closely. 11/21/2024 patient seen in telemetry today. Complains of generalized pain, described as unchanged from prior, neither worse nor improved. Denies nausea, vomiting, chest pain, or shortness of breath. Liz remains out; continues to void adequately. BP 108/56, HR 73. Labs today: Hgb 8.0, Plt 25, Na 146, K 5.7, Ca 10.0, Mg 2.5. Hyperkalemia noted; management per primary team. 11/22/2024 patient seen in telemetry today. She continues to feel about the same as yesterday with no new complaints. Denies nausea, vomiting, chest pain, or dyspnea. Remains alert and communicative. Liz remains out, voiding well. Blood pressure 118/68 with pulse 73. Labs today: WBC 2.3, Hgb 7.0, Hct 20.9, Plt 19, Na 148, K 5.1, Cl 108, CO2 27.8, Cr 1.3 (improved from 1.5 yesterday), GFR 49, Ca 9.7, Mg 2.5, Phos 3.4. We will keep patient on nephrology service for one more day to continue monitoring renal function and potassium levels. Exam Vital Signs Temp Pulse Resp BP Pulse Ox O2 Del Method O2 Flow Rate 97.0 F 71 14 116/61 95 Room Air 2 11/22/24 08:00 11/22/24 08:00 11/22/24 08:00 11/22/24 08:00 11/22/24 08:00 11/22/24 08:00 11/21/24 08:00 Narrative Exam GENERAL APPEARANCE: Patient currently seen in telemetry, resting comfortably. Appears weak but improved from prior days. Scleral icterus noted. NECK: Neck supple, no JVD or bruit. CARDIOVASCULAR: Heart regular, no murmurs. LUNGS/CHEST: Clear to auscultation. No rales, rhonchi, or wheezing. ABDOMEN: Soft, nontender, nondistended. Normal bowel sounds. Ascites present. EXTREMITIES: No edema. SKIN: Jaundiced, no new lesions or rashes. MUSCULOSKELETAL: In bed, mild back discomfort on palpation. NEUROLOGICAL: Awake, alert, oriented ?3. No asterixis. Objective Labs 11/22/24 09:52 11/22/24 05:15 Labs: Laboratory Results - last 24 hr 11/21/24 11/21/24 11/22/24 14:17 19:01 05:15 WBC RBC Hgb Hct MCV MCH MCHC RDW Std Deviation Plt Count Neut % (Auto) Lymph % (Auto) [place] % (Auto) Eos % (Auto) Baso % (Auto) Neut # (Auto) Lymph # (Auto) [place] # (Auto) Eos # (Auto) Baso # (Auto) Immature Gran # (Auto) Absolute Nucleated RBC Immature Gran % Nucleated RBC % PT INR APTT Sodium 147 H 146 H 148 H Potassium 5.3 H 5.1 5.1 Chloride 108 H 108 H 108 H Carbon Dioxide 24.8 24.1 27.8 Anion Gap 14 14 12 BUN 13 12 14 Creatinine 1.5 H 1.4 H 1.3 Estim Creat Clear Calc 33.6 L 36.0 L 38.7 L eGFR 41 L 45 L 49 L BUN/Creatinine Ratio 9 L 9 L 11 L Glucose 156 H 217 H D 146 H D Calculated Osmolality 295 297 H 297 H Calcium 10.2 10.2 9.7 Corrected Calcium 10.2 H 10.2 H 9.7 Phosphorus 3.7 3.4 Total Bilirubin 5.2 H Direct Bilirubin 1.6 H AST 40 H ALT 10 Alkaline Phosphatase 36 L D Total Protein 6.7 Albumin 5.8 H D 5.4 H 5.1 H Globulin 1.6 L Albumin/Globulin Ratio 3.2 H Misc Test Result 11/22/24 06:19 WBC 2.3 L RBC 1.91 L* Hgb 7.0 L Hct 20.9 L* MCV 109 H MCH 36.6 H MCHC 33.5 RDW Std Deviation 76.8 H Plt Count 19 L* D Neut % (Auto) 53 Lymph % (Auto) 31 [place] % (Auto) 10 Eos % (Auto) 5 Baso % (Auto) 0 Neut # (Auto) 1.2 L Lymph # (Auto) 0.7 L [place] # (Auto) 0.2 Eos # (Auto) 0.1 Baso # (Auto) 0.0 Immature Gran # (Auto) 0.01 H Absolute Nucleated RBC 0.00 Immature Gran % 0 Nucleated RBC % 0 PT > 63.0 H* D INR APTT 70.7 H D Sodium Potassium Chloride Carbon Dioxide Anion Gap BUN Creatinine Estim Creat Clear Calc eGFR BUN/Creatinine Ratio Glucose Calculated Osmolality Calcium Corrected Calcium Phosphorus Total Bilirubin Direct Bilirubin AST ALT Alkaline Phosphatase Total Protein Albumin Globulin Albumin/Globulin Ratio Misc Test Result Platelets confirmed Quality Measures Quality Measures VTE prophylaxis Assessment & Plan Assessment Current Active Medications: Generic Name Dose Route Start Last Admin Trade Name Freq PRN Reason Stop Dose Admin Acetaminophen 650 mg 11/13/24 15:30 Acetaminophen 325 Mg Tablet PO 12/13/24 15:29 Q6H PRN PAIN 1-3 OR FEVER > 101 Hydrocodone Bitart/Acetaminophen 1 tab 11/21/24 09:50 11/21/24 22:37 Hydrocodone/Apap 5/325 Tablet PO 11/26/24 09:49 1 tab Q6HR PRN Administration PAIN SCALE 4-10(Mod-Sev Cyanocobalamin 1,000 mcg 11/14/24 09:00 11/22/24 08:38 Cyanocobalamin 500 Mcg Tablet PO 12/14/24 08:59 1,000 mcg DAILY CELINA Administration Dextrose 25 ml 11/13/24 17:21 Dextrose 50%-Water Inj 50 Ml Syringe IV 12/13/24 17:20 Q15MIN PRN BG 50-70 responsive npo pt Dextrose 50 ml 11/13/24 17:21 Dextrose 50%-Water Inj 50 Ml Syringe IV 12/13/24 17:20 Q15MIN PRN BG <50 OR BG <70 & pt unresponsive Folic Acid 2.5 mg 11/14/24 09:00 11/22/24 08:37 Folic Acid 1 Mg Tablet PO 12/14/24 08:59 2.5 mg DAILY CELINA Administration Glucagon 1 mg 11/13/24 17:21 Glucagon Inj 1 Mg Vial IM Q15MIN PRN BG <70, and no IV access Albumin Human 25 gm in 100 mls @ 100 mls/hr 11/21/24 09:51 11/22/24 08:36 Albuminex 25% Ivpb IV 11/25/24 23:00 100 mls/hr BID CELINA Administration Protocol Albumin Human 25 gm in 100 mls @ 100 mls/hr 11/21/24 11:00 11/21/24 23:37 Albuminex 25% Ivpb IV 11/25/24 10:59 Infused BID@1000,2200 CELINA Infusion Protocol Octreotide Acetate 1,000 mcg/ 102 mls @ 5.1 mls/hr 11/21/24 16:23 11/21/24 17:22 Sodium Chloride IV 11/26/24 16:23 50 mcg/hr .Q20H CELINA 5.1 mls/hr Protocol Administration 50 MCG/HR Insulin Degludec 8 unit 11/18/24 14:30 11/22/24 08:37 Insulin Degludec 5 Unit/0.05 Ml (Per 5 Units) SC 12/18/24 14:29 8 unit QDAY CELINA Administration Insulin Human Lispro 0 unit 11/16/24 10:15 11/22/24 08:14 Insulin Lispro (Admelog) 1 Unit/0.01 Ml Unit SC 12/16/24 10:14 Not Given AC CELINA Protocol Lactulose 20 gm 11/19/24 14:00 11/22/24 05:16 Lactulose Syrup 20 Gm/30 Ml Udc PO 12/19/24 13:59 20 gm TID CELINA Administration Protocol Linezolid 600 mg 11/18/24 11:15 11/22/24 08:38 Linezolid 600 Mg Tablet PO 11/25/24 11:14 600 mg BID CELINA Administration Midodrine 10 mg 11/17/24 14:00 11/22/24 05:16 Midodrine 5 Mg Tablet PO 12/17/24 13:59 10 mg TID CELINA Administration Ondansetron HCl 4 mg 11/20/24 10:43 11/20/24 10:52 Ondansetron Inj 2 Mg/Ml Inj 2 Ml IVP 12/20/24 10:42 4 mg Q6HR PRN Administration NAUSEA OR VOMITING Protocol Pantoprazole Sodium 40 mg 11/19/24 21:00 11/22/24 08:38 Pantoprazole 40 Mg Tablet PO 12/19/24 20:59 40 mg BID CELINA Administration Protocol Sodium Chloride 3 ml 11/21/24 07:03 Sodium Chloride Rt Karis 0.9% 3 Ml Nebu INH 12/21/24 07:02 PRN PRN SOLN Spironolactone 50 mg 11/16/24 10:15 11/18/24 08:50 Spironolactone 25 Mg Tablet PO 12/16/24 10:14 50 mg On Hold: 11/19/24 06:52 DAILY CELINA Administration Plan 53-year-old female with decompensated alcoholic cirrhosis and recurrent hepatic encephalopathy, admitted for hematemesis and altered mental status, found to have LILY and now VRE UTI. #LILY, likely prerenal azotemia vs HRS II Improving; creatinine stable 1.3, urine output stable. Likely secondary to poor oral intake and volume depletion. Continue albumin support Continue midodrine, octreotide Maintain euvolemia; monitor daily weights and I/O Electrolytes stable but mild hyperkalemia (K 5.1) noted?primary team managing Hold spironolactone temporarily Encourage oral fluids as tolerated Cleared from nephrology standpoint #Acute metabolic encephalopathy #Hepatic encephalopathy In the setting of underlying cirrhosis Continue with lactulose, rifaximin, albumin #Decompensated cirrhosis, with sequela #Thrombocytopenia #Coagulopathy #Hyperbilirubinemia [place] class C 13 points Completed 5-day octreotide course for varices. MELD sodium 22 points with 19.6% 3-month mortality Continue lactulose, rifaximin, albumin, midodrine Outpatient hepatology follow up for liver transplant evaluation Did discuss with the primary team about transfer as her prognosis seems to be very poor with hepatorenal syndrome. #Macrocytic anemia Chronic, stable Likely from history of alcohol abuse ----- Plan discussed with attending physician Dr. Yenny Raya MD PGY-1 Internal Medicine Attending Provider Attestation/Addendum Patient seen and examined with resident physician Dr. Raya. Note reviewed, agree with findings and recommendations. Creatinine tad elevated today. Currently on octreotide, albumin. Patient continues to have generalized pain. Will need liver transplant evaluation.
--- NOTE | 2024-11-22 10:02 | PC.CC ---
Addendum entered by Judson Hughes RN 11/22/24 19:29: Transfer packet w/ 1 CD taken the Tele floor w/ physical Chart. Handoff report given to personnel counselorOSMANY Sumner Addendum entered by Judson Hughes RN 11/22/24 18:52: 1852: Signed TBA faxed to [facility] Addendum entered by Judson Hughes RN 11/22/24 18:12: 1800: received TBA, need to be completed 1744: received insurance auth, faxed to [facility]. spoke to Josephine w/ [facility], made aware. 1630: received call from [employer], she faxed the auth. Addendum entered by Judson Hughes RN 11/22/24 16:10: 1558: Called and spoke to Fransisca, informed her of accpetance to [facility] instead of [facility]. She stated she will have [employer] make revise the auth and fax it to me. 1550: called [facility], spoke to [facility] to confirm acceptance. She stated DR. Ashutosh Andrews accepted and questioned if i have received a transfer packet. I informed her I had not. She stated she will reach to the financial counselor to send packet to [facility]. 1400: spoke to Fransisca alfaro/ [facility], clinical update provided. She will present to group director experience for auth. 1300: spoke to Dr. Glover, he informed me that DR. Ashutosh Andrews called him and peer to peer was completed and has accepted the patient.Dr Andrews to notify [facility] to start process per Dr. Glover Addendum entered by Judson Hughes RN 11/22/24 12:58: Juan w/ [employer] called back requesting auth. He stated [facility] is contracted w/ [facility]. Faxed clinicals and transfer order to [facility] Addharoldoum entered by Judson Hughes RN 11/22/24 12:06: 1206: uploaded imaging to [facility] via [employer] Addendum entered by Judson Hughes RN 11/22/24 11:54: 1151: received call from [facility] requesting imaging. informed them to send link to upload images if they do not use [employer] or [employer]. Link will be emailed. 1135: Spoke with Joyce alfaro/ [facility], initiated transfer request. Addendum entered by Judson Hughes RN 11/22/24 11:20: CD created, uploaded imaging through [employer] link Addendum entered by Judson Hughes RN 11/22/24 10:26: 1020: called and spoke to Josephine alfaro/ [facility] to initiate the transfer request. She will send [employer] link to upload imaging. She will review clinicals and reach out to her medical team and call back. Original Note: received transfer request for hepatology for liver transplant evaluation. Clinicals sent to [facility] and [facility]. Clinicals sent to [facility] as well for auth request.
[2024-11-22 10:22] LABS: Hematocrit 22.2 % (36.0-46.0)
[2024-11-22 10:26] LABS: Hemoglobin 7.3 g/dL (12.0-16.0)
--- NOTE | 2024-11-22 10:32 | ESPR_ITS ---
<Statement entered by Zach Plata MD - 11/22/24 20:12> Patient was seen and evaluated at bedside this morning. No acute overnight events. Patient's coagulation panel is concerning for hepatic dysfunction. Patient's LILY resolved. Will attempt to transfer patient as she is a candidate for liver transplant. No other complaints at this time, continue current management. I have reviewed the note and agree with the resident's assessment & plan with exceptions as below. I have personally reviewed labs, imaging, home meds/prior records, examined the patient, formulated and discussed management plan with my attending Zach Plata PGY2 Disclaimer: Even though this this note was dictated by speech recognition and even though it was carefully revised there may still be minor errors in lens edge grinder machine due to voice recognition software. Documentation for date of: 11/22/24 Subjective Subjective Interval history: No acute overnight event. Patient seen and examined at bedside. Patient reports continued abdominal pain as well as bodily pain. Still having tremors on bilateral upper extremity on extension however no tremors at rest. Mild asterixis. Vitals labs reviewed. PT greater than 63 and AP TT 70.7. Blood pressure 100-120/60-70 on midodrine 10 mg 3 times daily. WBC 2.3, hemoglobin 7.0, repeat 7.3, platelets 19. Sodium 148, potassium 5.1, creatinine 1.3, T. bili 5.2, direct bilirubin 1.6. Continue albumin, rifampicin, lactulose and midodrine. Continue linezolid. Hold spironolactone. Calculated MELD score today 38, 52.6% 3-month mortality. Plan for transfer for liver transplant to [facility]. Exam Vital Signs Temp Pulse Resp BP Pulse Ox O2 Del Method O2 Flow Rate 97.0 F 71 14 116/61 95 Room Air 2 11/22/24 08:00 11/22/24 08:00 11/22/24 08:00 11/22/24 08:00 11/22/24 08:00 11/22/24 08:00 11/21/24 08:00 Narrative Exam GENERAL: AOx3, no acute distress, sitting up, fatigued HEENT: NC/AT, mucous membranes moist, bilateral sclera icteric CARDIOVASCULAR: regular rate and rhythm, S1/S2 present, 3/6 systolic murmur heard best at left 2nd intercostal space PULMONARY: clear to auscultation bilaterally, no rales/rhonchi/wheezes ABDOMINAL: soft, mild diffuse tenderness to palpation, no rebound/guarding, bowel sounds present EXTREMITIES: no peripheral edema SKIN: warm and dry, intact, no rashes NEURO: CN II-XII grossly intact, no focal deficits, alert, following commands, + BUE tremors on extension, +asterixis Objective Labs 11/22/24 09:52 11/22/24 05:15 Labs: Laboratory Results - last 24 hr 11/21/24 11/21/24 11/22/24 14:17 19:01 05:15 WBC RBC Hgb Hct MCV MCH MCHC RDW Std Deviation Plt Count Neut % (Auto) Lymph % (Auto) [place] % (Auto) Eos % (Auto) Baso % (Auto) Neut # (Auto) Lymph # (Auto) [place] # (Auto) Eos # (Auto) Baso # (Auto) Immature Gran # (Auto) Absolute Nucleated RBC Immature Gran % Nucleated RBC % PT INR APTT Sodium 147 H 146 H 148 H Potassium 5.3 H 5.1 5.1 Chloride 108 H 108 H 108 H Carbon Dioxide 24.8 24.1 27.8 Anion Gap 14 14 12 BUN 13 12 14 Creatinine 1.5 H 1.4 H 1.3 Estim Creat Clear Calc 33.6 L 36.0 L 38.7 L eGFR 41 L 45 L 49 L BUN/Creatinine Ratio 9 L 9 L 11 L Glucose 156 H 217 H D 146 H D Calculated Osmolality 295 297 H 297 H Calcium 10.2 10.2 9.7 Corrected Calcium 10.2 H 10.2 H 9.7 Phosphorus 3.7 3.4 Total Bilirubin 5.2 H Direct Bilirubin 1.6 H AST 40 H ALT 10 Alkaline Phosphatase 36 L D Total Protein 6.7 Albumin 5.8 H D 5.4 H 5.1 H Globulin 1.6 L Albumin/Globulin Ratio 3.2 H Misc Test Result 11/22/24 11/22/24 06:19 09:52 WBC 2.3 L RBC 1.91 L* Hgb 7.0 L 7.3 L Hct 20.9 L* 22.2 L MCV 109 H MCH 36.6 H MCHC 33.5 RDW Std Deviation 76.8 H Plt Count 19 L* D Neut % (Auto) 53 Lymph % (Auto) 31 [place] % (Auto) 10 Eos % (Auto) 5 Baso % (Auto) 0 Neut # (Auto) 1.2 L Lymph # (Auto) 0.7 L [place] # (Auto) 0.2 Eos # (Auto) 0.1 Baso # (Auto) 0.0 Immature Gran # (Auto) 0.01 H Absolute Nucleated RBC 0.00 Immature Gran % 0 Nucleated RBC % 0 PT > 63.0 H* D INR APTT 70.7 H D Sodium Potassium Chloride Carbon Dioxide Anion Gap BUN Creatinine Estim Creat Clear Calc eGFR BUN/Creatinine Ratio Glucose Calculated Osmolality Calcium Corrected Calcium Phosphorus Total Bilirubin Direct Bilirubin AST ALT Alkaline Phosphatase Total Protein Albumin Globulin Albumin/Globulin Ratio Misc Test Result Platelets confirmed Quality Measures Quality Measures VTE prophylaxis Assessment & Plan Assessment Current Active Medications: Generic Name Dose Route Start Last Admin Trade Name Freq PRN Reason Stop Dose Admin Hydrocodone Bitart/Acetaminophen 1 tab 11/21/24 09:50 11/21/24 22:37 Hydrocodone/Apap 5/325 Tablet PO 11/26/24 09:49 1 tab Q6HR PRN Administration PAIN SCALE 4-10(Mod-Sev Cyanocobalamin 1,000 mcg 11/23/24 09:00 Cyanocobalamin 500 Mcg Tablet PO 12/23/24 08:59 QDAY CELINA Dextrose 25 ml 11/22/24 09:17 Dextrose 50%-Water Inj 50 Ml Syringe IV 12/22/24 09:16 Q15MIN PRN BG 50-70 responsive npo pt Dextrose 50 ml 11/22/24 09:17 Dextrose 50%-Water Inj 50 Ml Syringe IV 12/22/24 09:16 Q15MIN PRN BG <50 OR BG <70 & pt unresponsive Folic Acid 2.5 mg 11/23/24 09:00 Folic Acid 1 Mg Tablet PO 12/23/24 08:59 QDAY CELINA Glucagon 1 mg 11/22/24 09:17 Glucagon Inj 1 Mg Vial IM Q15MIN PRN BG <70, and no IV access Albumin Human 25 gm in 100 mls @ 100 mls/hr 11/21/24 09:51 11/22/24 08:36 Albuminex 25% Ivpb IV 11/25/24 23:00 100 mls/hr BID CELINA Administration Protocol Albumin Human 25 gm in 100 mls @ 100 mls/hr 11/21/24 11:00 11/21/24 23:37 Albuminex 25% Ivpb IV 11/25/24 10:59 Infused BID@1000,2200 CELINA Infusion Protocol Octreotide Acetate 1,000 mcg/ 102 mls @ 5.1 mls/hr 11/21/24 16:23 11/21/24 17:22 Sodium Chloride IV 11/26/24 16:23 50 mcg/hr .Q20H CELINA 5.1 mls/hr Protocol Administration 50 MCG/HR Insulin Degludec 8 unit 11/18/24 14:30 11/22/24 08:37 Insulin Degludec 5 Unit/0.05 Ml (Per 5 Units) SC 12/18/24 14:29 8 unit QDAY CELINA Administration Insulin Human Lispro 0 unit 11/16/24 10:15 11/22/24 08:14 Insulin Lispro (Admelog) 1 Unit/0.01 Ml Unit SC 12/16/24 10:14 Not Given AC CELINA Protocol Lactulose 20 gm 11/19/24 14:00 11/22/24 05:16 Lactulose Syrup 20 Gm/30 Ml Udc PO 12/19/24 13:59 20 gm TID CELINA Administration Protocol Linezolid 600 mg 11/18/24 11:15 11/22/24 08:38 Linezolid 600 Mg Tablet PO 11/25/24 11:14 600 mg BID CELINA Administration Midodrine 10 mg 11/17/24 14:00 11/22/24 05:16 Midodrine 5 Mg Tablet PO 12/17/24 13:59 10 mg TID CELINA Administration Ondansetron HCl 4 mg 11/20/24 10:43 11/20/24 10:52 Ondansetron Inj 2 Mg/Ml Inj 2 Ml IVP 12/20/24 10:42 4 mg Q6HR PRN Administration NAUSEA OR VOMITING Protocol Pantoprazole Sodium 40 mg 11/22/24 21:00 Pantoprazole 40 Mg Tablet PO 12/22/24 20:59 BID CELINA Sodium Chloride 3 ml 11/21/24 07:03 Sodium Chloride Rt Karis 0.9% 3 Ml Nebu INH 12/21/24 07:02 PRN PRN SOLN Spironolactone 50 mg 11/16/24 10:15 11/18/24 08:50 Spironolactone 25 Mg Tablet PO 12/16/24 10:14 50 mg On Hold: 11/19/24 06:52 DAILY CELINA Administration Plan beverley Knight is a 54F pmhx of significant for decompensated alcoholic cirrhosis, multiple admissions for hepatic encephalopathy, hx of prior variceal bleeding s/p banding, chronic pain, NIDDM2 presented to [facility] 11/13 for altered mental status, weakness and 2 episodes of hematemesis admitted for hepatic encephalopathy likely secondary to decompensated alcoholic cirrhosis, found to have LILY, later developing leukopenia. #UTI, VRE #LILY, prerenal, improving #Hematuria 2/2 thrombopenia and/or VRE UTI #Hx of VRE UTI #Hyperkalemia Patient presented with creatinine of 2.4 and BUN of 30, baseline creatinine 0.9- 1. Admission UA showed 1+ blood, 18 RBC and 5 WBC. Patient has presented with history of increased creatinine on chart review and at the time was diagnosed with LILY Ddx includes prerenal LILY secondary to dehydration with nausea vomiting and lactulose, hepatorenal isohepatic encephalopathy, UTI as patient repeat UA 2+ blood, +LE and 28 WBC UCx grew VRE sensitive only to daptomycin, gentamicin synergy screen, and linezolid Plan: - Renal diet - PO linezolid 600 mg q12h (11/18-11/25) - ID consulted, recs appreciated: linezolid for 7 days - Hold spironolactone 50 mg due to hyperkalemia - Strict Is/Os, daily weights - Avoid nephrotoxic medications and renally dose - If creatinine continues to uptrend, consider urine electrolytes - Given hematuria, patient will need to follow-up outpatient with repeat UA #Hepatic encephalopathy 2/2 #Decompensated cirrhosis, likely alcoholic #Thrombocytopenia, stable #Hyperammonemia #Hypoalbuminemia, resolved #Coagulopathy #Macrocytic anemia, chronic Patient presented with altered mental status for the past 2 days with generalized weakness with severe asterixis. Patient has been seen multiple times at [facility] for hepatic encephalopathy. On admission, ammonia level elevated at 153, BUN 30, creatinine 2.4, troponin 0.031, platelet 32 decreased to 20, PT 17.7, INR 1.7. EKG NSR rate 81 and CXR showed poor inspiratory effort. UDS only positive for opiates. Patient is currently starting transplant process with appointments. Hgb fluctuates betweeen 7-10 MCV 100-110. Although patient reports being adherent to medication, patient continues to present with decompensated cirrhosis and hepatic encephalopathy. Likely that medication outpatient is not adequately decreasing ammonia levels and may need to be increased. Noted that patient is on Rifaximin 550 mg twice daily however it has not filled since 10/01/2024. Hypoalbuminemia, thrombocytopenia, coagulopathy likely secondary to cirrhosis. Admission MELD 3.0: 31, 68.3% 90 day survival. Child [place] Class C. Maddre[place]: 32.7, poor prognosis 11/22 MELD-Na 38, 52.6% 3 month mortality, with PT >68, INR manual calculation 8.6 Albumin (11/14-11/18) Plan: - Albumin 50g BID (11/21- - Rifamixin 550 mg BID and Lactulose 20 g TID - Continue home midodrine 10 mg TID - CTM mental status and repeat ammonia levels if patient continues to be altered - Consider Lasix if patient becomes clinically fluid overloaded - No platelet or blood transfusion at this time as patient is hemodynamically stable with blood pressure holding and HR wnl, consider platelet transfusion if platelet becomes hemodynamically unstable - PT ordered, recommends home with home health #Abdominal pain #Allodynia After improvement of encephalopathy, patient reported severe abdominal pain to light touch as well as with diffuse tenderness to palpation over entire body, latter was not present on previous admissions. Per mother, patient has experienced skin sensitivity in the past. Denies weakness. Likely 2/2 cirrhosis. Suspicion of peritonitis low but cannot be excluded due to recent hematemesis and hx of variceal bleeding. Allodynia may be related to uremia vs fibromyalgia. Plan: - CTM abdominal pain - [place] 7.5 q6h prn #Hematemesis #Gastritis with recent mucusal bleeding #Grade I non-bleeding esophageal varicies at lower third of esophagus #Hx of Grade III esophageal varicies s/p banding 06/13/24 Patient's mother at bedside reports 2 episodes of hematemesis. Prior to admission about a spoonful of bright red blood and first episode a week before admission with about 2-3 spoonfuls of blood. FOBT positive Patient does have a history of grade 3 esophageal varices which were banded, however hemoglobin currently stable in the 10s, which is increased from previous admission in September where hemoglobin was 8-9 and patient has not had any further hematemesis, melena or hematochezia at this time. 11/14 EGD showed grade I esophageal varicies found in lower third of esophagus, diffuse severely erythematous mucosa with stigmata of recent bleeding found in entire stomach, mucosal oozing of blood due to hypertensive portal gastropathy, duodenum normal Octreotide drip (11/13-11/18) Plan: - Continue IV pantoprazole 40 mg BID - GI consulted, appreciate recs: 2g sodium diet #Leukopenia Patient WBC on 11/15 decreased from 3.8 to 1.8 with ANC 900. Per chart review, patient has fluctuated lowest being in the 2.0's. Likely secondary to cirrhosis and VRE UTI. Plan: - CTM CBC #Urinary retention, resolved Night of admission, patient developed urinary retention with bladder scan showing 500 cc of retained urine. DDx includes urinary tract infection, encephalopathy vs home methocarbamol s/e profile Liz (11/14-11/15), s/p bladder training Plan: - CTM urine output #Chronic pain Reports chronic pain since back injury years ago, currently has been taking [place] TID for at least a month. Pain on admission is generalized with tenderness to palpation over the entire body which has improved as mental status improves. Plan: - Pain scale regimen #NIDDM2 Last A1c 6.0 09/2024. On metformin 1g QD at home. Plan: - Degludac 8u - SSI Hospital management: Lines: PIV Diet: low sodium 2g Bowel: lactulose 20 mg TID GI prophylaxis: IV pantoprazole 40 mg BID DVT prophylaxis: SCDs, heparin held iso possible GIB Disposition: tele for continued asterixis CODE STATUS: Full code Plan of care discussed with attending Dr. Glover, and PGY-2 Dr. Tee. Ekaterina Quintero DO PGY-1 Internal Medicine Attending Provider Attestation/Addendum I have discussed and was present for the essential components of the history, physical examination, diagnosis, and treatment plan with the resident. I agree with the patient's care as documented by the resident and amended herein by me. Dickson Glover DO. Although this document has been carefully reviewed, there may still be some phonetic and other typographical errors. These errors are purely grammatical due to imperfections in the software program and should not be construed in any way to compromise the substance of the patient's medical care during this visit. Patient seen and evaluated this AM. Patient continues to worsen clinically today, she is very lethargic although she is is able to answer questions. Hemoglobin is at 7 today, platelet counts at 19 no obvious signs of bleeding however may be internal, the patient does have varices and oozing of blood as demonstrated on recent endoscopy. Octreotide was started sodium 148, potassium 5, chloride 108, BUN 14 and creatinine improved to 1.3 today. Patient also on prophylactic ceftriaxone for SBP will also continue albumin lactulose, rifaximin. We are attempting to transfer the patient to tertiary center for hepatobiliary specialist and possible transplant evaluation. Patient has not drank alcohol in approximately 1.5 years. Apparently she did follow-up with [facility] for an initial evaluation however she is not on the transplant list as of yet per our knowledge. Will continue to monitor closely, the patient has been accepted to [facility] for further evaluation with Dr. Andrews.
[2024-11-22] MEDS: OCTREOTIDE ACET INJ 1,000 MCG in SODIUM CHLORIDE 0.9% 100 ML 5.1 MCG IV (10:44)
[2024-11-22] MEDS: INSULIN LISPRO (AdmeLOG) 1 UNIT/0.01 ML UNIT SC ×2 (11:53→17:28)
[2024-11-22] MEDS: cefTRIAXone/D5w 1gm IV premix 1 GM/50 ML BAG IV (14:32)
--- NOTE | 2024-11-22 14:38 | PC.SS ---
Follow up note: SS met with patient and mother at bedside to update on transfer process. [place] [facility] [place]. Patient is pending transfer higher level of care
--- NOTE | 2024-11-22 15:00 | PC.NURSE ---
Around 1500 patient update given to [facility] family services coordinator to begin patient's transfer process for hepatology, liver transplant.
--- NOTE | 2024-11-22 15:04 | PC.NURSE ---
Report given to [facility] nurse Gilda.
--- NOTE | 2024-11-22 18:59 | ESDS_ITS ---
Planned Discharge Date 11/22/24 DS: Providers Provider Date of admission: 11/13/24 15:24 Primary care physician: Physician No Primary/Family Admitting Provider: Stephen Ahuja MD Attending Provider on Admission: Mateo Glover DO Consults: 11/13/24 16:22 Consult to Gastroenterology Routine Comment: Consulting Provider: Brenda Culp 11/14/24 10:12 Consult to Nephrology Urgent Comment: Consulting Provider: Justa Ramon 11/17/24 10:02 Referral Physical Therapy Routine Comment: Physician Instructions: 11/18/24 06:24 Referral Wound Care Routine Comment: sheering vs stage 2 right buttock 11/18/24 06:25 Referral Registered Dietitian Routine Comment: sheering vs stage 2 right buttock 11/18/24 08:11 Consult to Infectious Diseases Routine Comment: Consulting Provider: Oj Castellanos 11/22/24 09:40 Referral - Tempering Machine Operator Routine Service Needed for Transfer: hepatology Addl Comments:: liver transplant candidate Attending Provider on DC: Mateo Glover DO Discharging Provider: Mateo Glover DO DS: Diagnosis Problem List Completed Was Problem List Reviewed/Reconciled?: Yes Hospital Course Hospital Course Hospital course: Summary: Elzbieta Knight is a 54F pmhx of significant for decompensated alcoholic cirrhosis, multiple admissions for hepatic encephalopathy, hx of prior variceal bleeding s/p banding, chronic pain, NIDDM2 presented to [facility] 11/13 for altered mental status, weakness and 2 episodes of hematemesis, admitted for hepatic encephalopathy likely secondary to decompensated alcoholic cirrhosis, found to have LILY, later developing leukopenia and severe thrombocytpoenia. Course complicated by VRE UTI. Patient presented with altered mental status for the past 2 days prior to admission with generalized weakness and severe asterixis. Patient has been seen multiple times [facility] for hepatic encephalopathy despite being compliant with medication. On admission ammonia level was 153, BUN 30, creatinine 2.4, troponin 0.031, platelets 32 then decreased to 28. Patient was treated with rifamixin 550 mg BID, increased lactulose from home 10 g 3 times daily to 20 g 3 times daily, albumin and midodrine 10 mg TID with improvement in encephalopathy. On 11/15/2024, patient underwent EGD which showed grade 1 esophageal varices found in the lower third of esophagus, did few severely eryt hematous mucosa with stigmata of recent bleeding found entire stomach, and pulsating of blood due to hypertensive portal gastropathy with normal duodenum. No interventions performed during EGD and patient was placed on octreotide drip for 5 days as well as pantoprazole and Hgb largely remained stable. During admission, nephrology was consulted and patient was diagnosed with hepatorenal syndrome as patient was admitted with LILY which resolved with albumin and midodrine. Albumin was initially discontinued, however LILY reoccurred, and albumin restarted with subsequent improvement of creatinine. Of note, urine culture also grew VRE as patient does have a history of VRE UTIs. Per ID, patient was started on linezolid 600 mg BID for total of 7 days from 11/18 to 11/25. On transfer, vitals and labs reviewed, BP soft 100-120/60-70 on midodrine 10 mg TID, WBC 2.3, hemoglobin 7.2, hematocrit 22.2, platelets 19, PT greater than 63, APTT 70.7, DA bili 5.2 with direct bilirubin 1.6. Patient currently complains of generalized abdominal pain as well as allodynia, and stable for transfer. Imagin/30 CXR showed mild vascular congestion, poor inspiratory effort, moderate osteopenia 11/21 Abdominal US minimal ascitic fluid Discharge recommendations as per accepting facility. Hospital Diagnoses: #Hepatic encephalopathy 2/2 #Decompensated cirrhosis, likely alcoholic #Thrombocytopenia, stable #Hyperammonemia #Hypoalbuminemia, resolved #Coagulopathy #Macrocytic anemia, chronic #UTI, VRE #LILY, prerenal, improving #Hepatorenal syndrome #Hematuria 2/2 thrombopenia and/or VRE UTI #Hx of VRE UTI #Hyperkalemia #Abdominal pain #Allodynia #Hematemesis #Gastritis with recent mucusal bleeding #Grade I non-bleeding esophageal varicies at lower third of esophagus #Hx of Grade III esophageal varicies s/p banding 06/13/24 #Leukopenia #Urinary retention, resolved #Chronic pain #NIDDM2 Ekaterina Quintero, Internal Medicine, PGY-1 Status at Discharge Cognitive/behavioral status at discharge: Stable Time Spent with Patient Time attestation: Total time spent providing and/or coordinating discharge services: Time spent: Greater than 30 minutes Home Health Home Health Referral Orders: 11/21/24 12:32 Home Health Referral Routine Reason For Exam: debility Home-Bound The patient must either because of illness or injury, need the aid of supportive devices such as crutches, canes, wheelchairs, and walkers; the use of special transportation; or the assistance of another person in order to leave their place of residence; OR have a condition such that leaving his or her home is medically contraindicated. In addition, the patient also meets the following criteria: patient is normally unable to leave the home and leaving home requires considerable taxing effort. Addendum to Home Health Certification Practitioner's Certification: I certify that the patient has been under my care in the hospital and the care of attending physician (see below). We had a [id number] encounter on (see date below). My clinical findings indicate that the patient is home bound per the above criteria and the Home Health Services noted in these orders are medically necessary. The primary reason for the [id number] encounter is related to the fact that the patient requires home health services. Date Certifying [id number] Physician Encounter: 11/13/24 Physician's Name who will Assume Oversight for HH Services: Physician No Primary/Family CROP DUSTER - Community Resources: No PT to Evaluate: Yes PT to evaluate and provide a treatmnet plan to increase patient's mobility and strength. Wound Care: No IV Therapy: No Discontinue PICC Line Once Treatment Complete: No RN Safety Evaluation: Yes RN to evaluate and create a plan of care that will produce positive outcomes. Palliative Treatment: No Palliative treatment and evaluate the need for hospice. Home Health Aide - Personal Care: No Home Health Aide to assist with any ADL's. Exam Vital Signs Temp Pulse Resp BP Pulse Ox O2 Del Method O2 Flow Rate 97.5 F 70 14 131/68 H 90 L Room Air 2 11/22/24 16:00 11/22/24 16:00 11/22/24 16:00 11/22/24 16:00 11/22/24 16:00 11/22/24 16:00 11/21/24 08:00 Narrative Exam GENERAL: AOx3, no acute distress, sitting up, fatigued HEENT: NC/AT, mucous membranes moist, bilateral sclera icteric CARDIOVASCULAR: regular rate and rhythm, S1/S2 present, 3/6 systolic murmur heard best at left 2nd intercostal space PULMONARY: clear to auscultation bilaterally, no rales/rhonchi/wheezes ABDOMINAL: soft, mild diffuse tenderness to palpation, no rebound/guarding, bowel sounds present EXTREMITIES: no peripheral edema SKIN: warm and dry, intact, no rashes NEURO: CN II-XII grossly intact, no focal deficits, alert, following commands, + BUE tremors on extension, +mild asterixis Discharge Plan Plan Patient Disposition: Home w/HOME HEALTH Patient condition on transfer: Stable Care Plan Goals: Folowu up with your primary care physician within 2-3 days upon dicharge Follow-up primary care physician for a repeat renal panel in 2 to 3 days. Recommend to follow-up with GI and continue with appointment with transplant specialist. Follow-up with nephrology within 1 week upon discharge. You have been started on Linezolid for your urinary tract infection take 1 tablet this evening and then twice a day for 3 more days. Continue holding your spironolactone until you follow-up with your key attendant Continue holding metformin given LILY until follow up with primary care physician Continue all other home medications as prescribed Come back to the ER if symptoms persist or worsen Prescriptions/Referrals Prescriptions/Med Rec: New linezolid 600 mg tablet 600 mg PO BID Qty: 7 0RF Continued hydrocodone-acetaminophen 5-325 mg tablet 1 tab PO Q6H MDD 4 tablets in one day PRN (Reason: pain) Qty: 60 0RF Rx Instructions: Take one tablet by mouth up to every 6 hours pantoprazole 40 mg tablet,delayed release (DR/EC) 40 mg PO QDAY 30 Days Qty: 30 2RF Rx Instructions: Take one tablet by mouth every day before food mirtazapine [Remeron] 30 mg tablet 30 mg PO QHS 30 Days Qty: 30 1RF Rx Instructions: Take one tablet by mouth at bedtime cholecalciferol (vitamin D3) 1,250 mcg (50,000 unit) tablet 1,250 mcg PO QWEEK 90 Days Qty: 13 0RF Rx Instructions: Take one tablet by mouth once a week Xifaxan 550 mg tablet 550 mg PO BID 30 Days Qty: 60 2RF Rx Instructions: Take one tablet by mouth twice a day methocarbamol 750 mg tablet 750 mg PO BID 30 Days Qty: 60 2RF Rx Instructions: Take one tablet by mouth twice a day (DME) lancets [FreeStyle Lancets] 28 gauge misc See Rx Instructions .Route Qty: 100 5RF Rx Instructions: Use TID and PRN As directed (DME) Freestyle [employer]x Test Strips Strip See Rx Instructions .Route Qty: 100 5RF Rx Instructions: Test TID and PRN As directed (DME) lancets [Acti-Petar Lancets] 28 gauge misc See Rx Instructions .Route Qty: 100 2RF Rx Instructions: As directed (DME) Accu-Chek Idania Plus test strp Strip See Rx Instructions .Route Qty: 100 2RF Rx Instructions: As directed (DME) blood-glucose meter [FreeStyle [place] Lite] Kit See Rx Instructions .Route Qty: 1 0RF Rx Instructions: As directed furosemide 40 mg tablet 40 mg PO QAM Qty: 30 0RF midodrine 10 mg tablet 10 mg PO Q8H Changed lactulose 10 gram/15 mL solution 20 g PO TID Qty: 1200 0RF Patient Comments: TAKE 45 MLS BY MOUTH 3 TIMES A DAY Held spironolactone 50 mg tablet 50 mg PO DAILY Hold Instructions: Resume on 11/28/24. Hold until follow up with nephrology/PCP metformin 1,000 mg tablet 1,000 mg PO QDAY Hold Instructions: Resume on 11/28/24. hold until follow up with PCP Patient Comments: TAKE 1 1/2 TABLETS BY MOUTH ONCE A DAY Referrals: No Primary/Family,Physician [Primary Care Provider] Patient/Caregiver Discharge Instructions Other Discharge Activity Instructions:: Folowu up with your primary care physician within 2-3 days upon dicharge Follow-up primary care physician for a repeat renal panel in 2 to 3 days. Recommend to follow-up with GI and continue with appointment with transplant specialist. Follow-up with nephrology within 1 week upon discharge. You have been started on Linezolid for your urinary tract infection take 1 tablet this evening and then twice a day for 3 more days. Continue holding your spironolactone until you follow-up with your key attendant Continue holding metformin given LILY until follow up with primary care physician Continue all other home medications as prescribed Come back to the ER if symptoms persist or worsen Education Materials: Hepatic Encephalopathy Print Language: Panamanian Stand Alone Forms: [employer] Info., Patient Portal Info Letter Quality Discharge Quality Measures VTE prophylaxis MD Attestestation MD Attestation Patient not transferred today as expected, see progress note.
--- NOTE | 2024-11-22 19:17 | PD.IMPROG ---
Documentation for date of: 11/22/24 Subjective Subjective Interval history: Hemoglobin hematocrit at 7.3 and 22.2 and a low platelet count No signs of any active bleeding Exam Vital Signs Temp Pulse Resp BP Pulse Ox O2 Del Method O2 Flow Rate 97.5 F 70 14 131/68 H 90 L Room Air 2 11/22/24 16:00 11/22/24 16:00 11/22/24 16:00 11/22/24 16:00 11/22/24 16:00 11/22/24 16:00 11/21/24 08:00 Objective Labs 11/22/24 09:52 11/22/24 05:15 Labs: Laboratory Results - last 24 hr 11/21/24 11/22/24 11/22/24 19:01 05:15 06:19 WBC 2.3 L RBC 1.91 L* Hgb 7.0 L Hct 20.9 L* MCV 109 H MCH 36.6 H MCHC 33.5 RDW Std Deviation 76.8 H Plt Count 19 L* D Neut % (Auto) 53 Lymph % (Auto) 31 [place] % (Auto) 10 Eos % (Auto) 5 Baso % (Auto) 0 Neut # (Auto) 1.2 L Lymph # (Auto) 0.7 L [place] # (Auto) 0.2 Eos # (Auto) 0.1 Baso # (Auto) 0.0 Immature Gran # (Auto) 0.01 H Absolute Nucleated RBC 0.00 Immature Gran % 0 Nucleated RBC % 0 PT > 63.0 H* D INR APTT 70.7 H D Sodium 146 H 148 H Potassium 5.1 5.1 Chloride 108 H 108 H Carbon Dioxide 24.1 27.8 Anion Gap 14 12 BUN 12 14 Creatinine 1.4 H 1.3 Estim Creat Clear Calc 36.0 L 38.7 L eGFR 45 L 49 L BUN/Creatinine Ratio 9 L 11 L Glucose 217 H D 146 H D Calculated Osmolality 297 H 297 H Calcium 10.2 9.7 Corrected Calcium 10.2 H 9.7 Phosphorus 3.4 Total Bilirubin 5.2 H Direct Bilirubin 1.6 H AST 40 H ALT 10 Alkaline Phosphatase 36 L D Total Protein 6.7 Albumin 5.4 H 5.1 H Globulin 1.6 L Albumin/Globulin Ratio 3.2 H Misc Test Result Platelets confirmed 11/22/24 09:52 WBC RBC Hgb 7.3 L Hct 22.2 L MCV MCH MCHC RDW Std Deviation Plt Count Neut % (Auto) Lymph % (Auto) [place] % (Auto) Eos % (Auto) Baso % (Auto) Neut # (Auto) Lymph # (Auto) [place] # (Auto) Eos # (Auto) Baso # (Auto) Immature Gran # (Auto) Absolute Nucleated RBC Immature Gran % Nucleated RBC % PT INR APTT Sodium Potassium Chloride Carbon Dioxide Anion Gap BUN Creatinine Estim Creat Clear Calc eGFR BUN/Creatinine Ratio Glucose Calculated Osmolality Calcium Corrected Calcium Phosphorus Total Bilirubin Direct Bilirubin AST ALT Alkaline Phosphatase Total Protein Albumin Globulin Albumin/Globulin Ratio Misc Test Result Impressions Impression: Hepatic/metabolic encephalopathy improving Anemia blood loss with mucosal oozing of blood in the setting of advanced portal hypertension and mucosal oozing of blood from the gastric mucosa Continue current management If the hemoglobin drops below 7 g give 1 unit of PRBC Assessment & Plan A&P Narrative uti , mild with vre as only germ found po linezolid ok for this for total of 7d, cirrhosis, etoh related home at your discretion.if abd pain persists, then evaluate ascites will see again prn Time Spent With Patient Time: Total time spent is greater than 50% in coordination of care (as documented) at patient's floor/unit and/or counseling patient:
[2024-11-23] VITALS (9 sets, daily range): BP systolic 120–138; BP diastolic 64–98; PULSE 65–89; RESP 14–18; TEMP 36.2–36.8; O2SAT 91–100; BMI 25.6
[2024-11-23] MEDS: OCTREOTIDE ACET INJ 1,000 MCG in SODIUM CHLORIDE 0.9% 100 ML 5.1 MCG IV (06:03)
[2024-11-23] MEDS: MIDODRINE 5 MG TABLET 10 MG PO ×3 (06:04→21:46)
[2024-11-23 06:23] LABS: Basophils # (Auto) 0.0 Thou/mm3 (0.0-0.2); Basophils % (Auto) 1 % (0-2.5); Eosinophils # (Auto) 0.1 Thou/mm3 (0.0-0.5); Eosinophils % (Auto) 6 % (0-10); Hematocrit 21.6 % (36.0-46.0); Immature Granulocytes Auto 0.01 Thou/mm3 (0.00-0.00); Lymphocytes # (Auto) 0.7 Thou/mm3 (1.0-4.8); Lymphocytes % (Auto) 33 % (10-50); Mean Corpuscular HGB Conc 33.3 g/dl (31.0-37.0); Mean Corpuscular Hemoglobin 36.4 pg (25.0-35.0); Mean Corpuscular Volume 109 fL (80-100); Monocytes # (Auto) 0.2 Thou/mm3 (0.0-0.8); Monocytes % (Auto) 8 % (0-12); Neutrophils # (Auto) 1.2 Thou/mm3 (1.8-7.7); Neutrophils % (Auto) 53 % (37-80); Nucleated Red Blood Cell # 0.00 Thou/mm3 (0.00-0.00); Nucleated Red Blood Cell % 0 /100 WBC (0); RDW Standard Deviation 74.4 fL (36.4-46.3); Red Blood Count 1.98 Miln/mm3 (4.00-5.20); White Blood Count 2.3 Thou/mm3 (3.6-11.0)
[2024-11-23 06:28] LABS: Hemoglobin 7.2 g/dL (12.0-16.0)
[2024-11-23 06:29] LABS: Platelet Count 17 Thou/mm3 (140-440)
[2024-11-23 06:44] LABS: Alanine Aminotransferase 10 U/L (10-49); Albumin, Serum 5.7 gm/dL (3.5-5.0); Albumin/Globulin Ratio 2.9 (1.2-2.2); Alkaline Phosphatase 38 U/L (46-116); Anion Gap 12 (7-16); Aspartate Amino Transferase 26 U/L (0-34); BUN/Creatinine Ratio 9 Ratio (12-20); Bilirubin,Total 6.7 mg/dL (0.3-1.2); Blood Urea Nitrogen 13 mg/dL (9-23); Calcium 10.5 mg/dL (8.3-10.6); Calcium (Corrected) 10.5 mg/dL (8.5-10.1); Carbon Dioxide 27.0 mMol/L (20.0-31.0); Chloride 108 mMol/L (98-107); Creatinine (Component) 1.4 mg/dL (0.6-1.3); Estimated Creatinine Clearance 36.0 mL/min (>60); Globulin 2.0 gm/dL (2.3-3.5); Glucose 129 mg/dL (74-106); Osmolality,Calculated 294 (275-295); Potassium 4.6 mMol/L (3.4-5.1); Sodium 147 mMol/L (136-145); Total Protein 7.7 gm/dL (5.7-8.2); eGFR 45 See Note
[2024-11-23] MEDS: ALBUMIN HUMAN-KJDA 25% IVPB 25 GM/100 ML BTL IV ×4 (08:22→21:42)
[2024-11-23] MEDS: FOLIC ACID 1 MG TABLET 2.5 MG PO (08:22)
[2024-11-23] MEDS: cefTRIAXone/D5w 1gm IV premix 1 GM/50 ML BAG IV (08:22)
[2024-11-23] MEDS: INSULIN DEGLUDEC 5 UNIT/0.05 ML (PER 5 UNITS) 8 UNIT SC (08:23)
[2024-11-23] MEDS: LINEZOLID 600 MG TABLET PO ×2 (08:24→20:21)
[2024-11-23] MEDS: PANTOPRAZOLE 40 MG TABLET PO ×2 (08:24→20:22)
--- NOTE | 2024-11-23 08:37 | PC.CM ---
Addendum entered by Kacey Mclean RN 11/23/24 18:59: 1900 I took packet to night charge nurse and gave report. I updated the packet and made sure it had the 1 CD. Addendum entered by Kacey Mclean RN 11/23/24 16:34: 1515 I received a call from Josephine with the finance department at [facility]. She states she received the paperwork from me but it was the same paper that was sent yesterday. I told her I spoke to the family caseworker at [employer], which is the Medical group that is overseeing [employer]. I let her know that they are giving authorization for patient. Josephine states she will speak to her superior to get clarification. I asked that they call me directly if her superior still has questions so we could clear patient for placement. [facility] placement phone # [phone] I reached out to the finance dept. at [facility] and I spoke to Josephine. I asked if she had received the paperwork I had sent from [facility]. Josephine states she did not receive the paperwork. I re-faxed the paper at this time. 3600 I received the authorization from Kaye at [employer] and I faxed it to Josephine at [facility] finance department fax # [phone] I called Kaye and I asked her if she faxed me the authorization paperwork because I did not receive anything. She states she faxed me the paper. I let her know I did not receive anything. I asked if she could email it to me. Addendum entered by Kacey Mclean RN 11/23/24 09:13: I spoke to Kaye nurse family caseworker at [employer] phone # [phone] ext. [phone]. She states she sent the authorization to us yesterday. I asked that she send it again so I can send it to [facility]. I let her know I was not here yesterday so I do not know what was sent. She states she will fax it to me. Original Note: I received a call from Jeniffer with Finance with [facility]. phone # [phone] fax# [phone]. She states they received the authorization from [employer] but they need the authorization from the Medical group that over sees patient. she states is shows Joan. I reviewed patient's insurance and it looks like patient is followed by [facility]. I will reach out to [facility].
[2024-11-23 09:25] LABS: Slide Review Platelets confirmed
[2024-11-23 09:44] LABS: Magnesium 2.3 mg/dL (1.6-2.6); Phosphorous 2.3 mg/dL (2.4-5.1)
--- NOTE | 2024-11-23 10:12 | CHAP ---
Patient was visited by the Spiritual Care Volunteer who prayed for them. (Volunteer was in the hospital from 09:00 - 10:12).
--- NOTE | 2024-11-23 10:27 | ESPR_ITS ---
<Statement entered by Zach Plata MD - 11/23/24 11:38> Patient was seen and evaluated at bedside this morning. No acute overnight events. Still pending possible transfer. Patient's creatinine did slightly uptrend to 1.4, will continue with albumin and octreotide. Also gave vitamin K 10 mg subcu x 1 given elevated coagulation panel. At this time no other complaints. I have reviewed the note and agree with the resident's assessment & plan with exceptions as below. I have personally reviewed labs, imaging, home meds/prior records, examined the patient, formulated and discussed management plan with my attending Zach Plata PGY2 Disclaimer: Even though this this note was dictated by speech recognition and even though it was carefully revised there may still be minor errors in general distillery worker due to voice recognition software. Documentation for date of: 11/23/24 Subjective Subjective Interval history: And kidney events. Patient seen examined at bedside with mother. Patient reports continued abdominal tenderness and generalized skin sensitivity. Denies urinary symptoms. Patient is mentating well although endorses some word finding difficulty at times. Vitals labs reviewed. SBP 120-145 telemetry reviewed, sinus rhythm 60s to 70s. WBC 2.3, hemoglobin stable low 7.2, platelets 17. Na 147, potassium 4.6, creatinine increased from 1.3-1.4. Calcium 10.5, Phos 2.3, magnesium 2.3, T bilirubin 6.7. PT>63 and APTT 82.2. Pending transfer for liver transplant. Calculated MELD score today 48 with 71.3% 3-month mortality continue rifaximin, lactulose, albumin, midodrine, octreotide and ceftriaxone. Continue linezolid for VRE UTI. Administered vitamin K 10 mg SC x1. Exam Vital Signs Temp Pulse Resp BP Pulse Ox O2 Del Method O2 Flow Rate 97.3 F 72 17 123/73 91 L Room Air 2 11/23/24 08:00 11/23/24 08:00 11/23/24 08:00 11/23/24 08:00 11/23/24 08:00 11/23/24 08:00 11/21/24 08:00 Narrative Exam GENERAL: AOx3, no acute distress, sitting up, fatigued HEENT: NC/AT, mucous membranes moist, bilateral sclera icteric CARDIOVASCULAR: regular rate and rhythm, S1/S2 present, 3/6 systolic murmur heard best at left 2nd intercostal space PULMONARY: clear to auscultation bilaterally, no rales/rhonchi/wheezes ABDOMINAL: soft, mild diffuse tenderness to palpation, no rebound/guarding, bowel sounds present EXTREMITIES: no peripheral edema SKIN: warm and dry, intact, no rashes NEURO: CN II-XII grossly intact, no focal deficits, alert, following commands, + BUE tremors on extension, +mild asterixis Objective Labs 11/24/24 04:41 11/24/24 04:41 Labs: Laboratory Results - last 24 hr 11/23/24 11/23/24 05:35 08:00 WBC 2.3 L RBC 1.98 L* Hgb 7.2 L Hct 21.6 L* MCV 109 H MCH 36.4 H MCHC 33.3 RDW Std Deviation 74.4 H Plt Count 17 L* Neut % (Auto) 53 Lymph % (Auto) 33 [place] % (Auto) 8 Eos % (Auto) 6 Baso % (Auto) 1 Neut # (Auto) 1.2 L Lymph # (Auto) 0.7 L [place] # (Auto) 0.2 Eos # (Auto) 0.1 Baso # (Auto) 0.0 Immature Gran # (Auto) 0.01 H Absolute Nucleated RBC 0.00 Immature Gran % 0 Nucleated RBC % 0 Sodium 147 H Potassium 4.6 D Chloride 108 H Carbon Dioxide 27.0 Anion Gap 12 BUN 13 Creatinine 1.4 H Estim Creat Clear Calc 36.0 L eGFR 45 L BUN/Creatinine Ratio 9 L Glucose 129 H Calculated Osmolality 294 Calcium 10.5 Corrected Calcium 10.5 H Phosphorus 2.3 L Magnesium 2.3 Total Bilirubin 6.7 H D AST 26 ALT 10 Alkaline Phosphatase 38 L Total Protein 7.7 Albumin 5.7 H D Globulin 2.0 L Albumin/Globulin Ratio 2.9 H Misc Test Result Platelets confirmed Quality Measures Quality Measures VTE prophylaxis Assessment & Plan Assessment Current Active Medications: Generic Name Dose Route Start Last Admin Trade Name Freq PRN Reason Stop Dose Admin Hydrocodone Bitart/Acetaminophen 1 tab 11/21/24 09:50 11/21/24 22:37 Hydrocodone/Apap 5/325 Tablet PO 11/26/24 09:49 1 tab Q6HR PRN Administration PAIN SCALE 4-10(Mod-Sev Cyanocobalamin 1,000 mcg 11/23/24 09:00 11/23/24 08:23 Cyanocobalamin 500 Mcg Tablet PO 12/23/24 08:59 1,000 mcg QDAY CELINA Administration Dextrose 25 ml 11/22/24 09:17 Dextrose 50%-Water Inj 50 Ml Syringe IV 12/22/24 09:16 Q15MIN PRN BG 50-70 responsive npo pt Dextrose 50 ml 11/22/24 09:17 Dextrose 50%-Water Inj 50 Ml Syringe IV 12/22/24 09:16 Q15MIN PRN BG <50 OR BG <70 & pt unresponsive Folic Acid 2.5 mg 11/23/24 09:00 11/23/24 08:22 Folic Acid 1 Mg Tablet PO 12/23/24 08:59 2.5 mg QDAY CELINA Administration Glucagon 1 mg 11/22/24 09:17 Glucagon Inj 1 Mg Vial IM Q15MIN PRN BG <70, and no IV access Albumin Human 25 gm in 100 mls @ 100 mls/hr 11/21/24 09:51 11/23/24 08:22 Albuminex 25% Ivpb IV 11/25/24 23:00 100 mls/hr BID CELINA Administration Protocol Albumin Human 25 gm in 100 mls @ 100 mls/hr 11/21/24 11:00 11/23/24 10:19 Albuminex 25% Ivpb IV 11/25/24 10:59 100 mls/hr BID@1000,2200 CELINA Administration Protocol Octreotide Acetate 1,000 mcg/ 102 mls @ 5.1 mls/hr 11/21/24 16:23 11/23/24 06:03 Sodium Chloride IV 11/26/24 16:23 50 mcg/hr .Q20H CELINA 5.1 mls/hr Protocol Administration 50 MCG/HR Ceftriaxone Sodium/Dextrose 1 gm in 50 mls @ 100 mls/hr 11/22/24 13:30 11/23/24 08:22 Rocephin/D5w 1gm Iv Premix IV 11/29/24 13:29 100 mls/hr QDAY CELINA Administration Insulin Degludec 8 unit 11/18/24 14:30 11/23/24 08:23 Insulin Degludec 5 Unit/0.05 Ml (Per 5 Units) SC 12/18/24 14:29 8 unit QDAY CELINA Administration Insulin Human Lispro 0 unit 11/16/24 10:15 11/23/24 08:01 Insulin Lispro (Admelog) 1 Unit/0.01 Ml Unit SC 12/16/24 10:14 Not Given AC CELINA Protocol Lactulose 20 gm 11/19/24 14:00 11/23/24 06:04 Lactulose Syrup 20 Gm/30 Ml Udc PO 12/19/24 13:59 Not Given TID CELINA Protocol Linezolid 600 mg 11/18/24 11:15 11/23/24 08:24 Linezolid 600 Mg Tablet PO 11/25/24 11:14 600 mg BID CELINA Administration Midodrine 10 mg 11/17/24 14:00 11/23/24 06:04 Midodrine 5 Mg Tablet PO 12/17/24 13:59 10 mg TID CELINA Administration Ondansetron HCl 4 mg 11/20/24 10:43 11/20/24 10:52 Ondansetron Inj 2 Mg/Ml Inj 2 Ml IVP 12/20/24 10:42 4 mg Q6HR PRN Administration NAUSEA OR VOMITING Protocol Pantoprazole Sodium 40 mg 11/22/24 21:00 11/23/24 08:24 Pantoprazole 40 Mg Tablet PO 12/22/24 20:59 40 mg BID CELINA Administration Rifaximin 550 mg 11/23/24 09:00 11/23/24 10:18 Rifaximin 550 Mg Tablet PO 11/30/24 08:59 550 mg BID CELINA Administration Sodium Chloride 3 ml 11/21/24 07:03 Sodium Chloride Rt Karis 0.9% 3 Ml Nebu INH 12/21/24 07:02 PRN PRN SOLN Spironolactone 50 mg 11/16/24 10:15 11/18/24 08:50 Spironolactone 25 Mg Tablet PO 12/16/24 10:14 50 mg On Hold: 11/19/24 06:52 DAILY CELINA Administration Plan Elzbieta Knight is a 54F pmhx of significant for decompensated alcoholic cirrhosis, multiple admissions for hepatic encephalopathy, hx of prior variceal bleeding s/p banding, chronic pain, NIDDM2 presented to [facility] 11/13 for altered mental status, weakness and 2 episodes of hematemesis admitted for hepatic encephalopathy likely secondary to decompensated alcoholic cirrhosis, found to have LILY, later developing leukopenia. #Hepatic encephalopathy 2/2 #Decompensated cirrhosis, likely alcoholic #Thrombocytopenia, stable #Hyperammonemia #Hypoalbuminemia, resolved #Coagulopathy #Macrocytic anemia, chronic Patient presented with altered mental status for the past 2 days with generalized weakness with severe asterixis. Patient has been seen multiple times at [facility] for hepatic encephalopathy. On admission, ammonia level elevated at 153, BUN 30, creatinine 2.4, troponin 0.031, platelet 32 decreased to 20, PT 17.7, INR 1.7. EKG NSR rate 81 and CXR showed poor inspiratory effort. UDS only positive for opiates. Patient is currently starting transplant process with appointments. Hgb fluctuates betweeen 7-10 MCV 100-110. Although patient reports being adherent to medication, patient continues to present with decompensated cirrhosis and hepatic encephalopathy. Likely that medication outpatient is not adequately decreasing ammonia levels and may need to be increased. Noted that patient is on Rifaximin 550 mg twice daily however it has not filled since 10/01/2024. Hypoalbuminemia, thrombocytopenia, coagulopathy likely secondary to cirrhosis. Admission MELD 3.0: 31, 68.3% 90 day survival. Child [place] Class C. Maddre[place]: 32.7, poor prognosis 11/22 MELD-Na 38, 52.6% 3 month mortality, with PT >68, INR manual calculation 8.6 11/23 MELD-Na 40, 71.3% 3 month mortality, with PT>68, INR manual calculation 8.6 Albumin (11/14-11/18) Plan: - Albumin 50g BID (11/21- - Rifamixin 550 mg BID and Lactulose 20 g TID - Continue home midodrine 10 mg TID - Vitamin K 10 mg SC x1 - Consider Lasix if patient becomes clinically fluid overloaded - No platelet or blood transfusion at this time as patient is hemodynamically stable with blood pressure holding and HR wnl, consider platelet transfusion if platelet becomes hemodynamically unstable - PT ordered, recommends home with home health #UTI, VRE #LILY, prerenal, improving #Hepatorenal syndrome #Hematuria 2/2 thrombopenia and/or VRE UTI #Hx of VRE UTI #Hyperkalemia Patient presented with creatinine of 2.4 and BUN of 30, baseline creatinine 0.9- 1. Admission UA showed 1+ blood, 18 RBC and 5 WBC. Patient has presented with history of increased creatinine on chart review and at the time was diagnosed with LILY Ddx includes prerenal LILY secondary to dehydration with nausea vomiting and lactulose, hepatorenal isohepatic encephalopathy, UTI as patient repeat UA 2+ blood, +LE and 28 WBC. Patient diagnosed with hepatorenal as blood pressure and kidney function increased with albumin and midodrine. Albumin was stopped for few days and LILY returned when albumin was restarted, creatinine decreased back to baseline. UCx grew VRE sensitive only to daptomycin, gentamicin synergy screen, and linezolid Plan: - Renal diet - PO linezolid 600 mg q12h (11/18-11/25) - ID consulted, recs appreciated: linezolid for 7 days - Hold spironolactone 50 mg due to hyperkalemia - Strict Is/Os, daily weights - Avoid nephrotoxic medications and renally dose - If creatinine continues to uptrend, consider urine electrolytes - Given hematuria, patient will need to follow-up outpatient with repeat UA #Abdominal pain #Allodynia After improvement of encephalopathy, patient reported severe abdominal pain to light touch as well as with diffuse tenderness to palpation over entire body, latter was not present on previous admissions. Per mother, patient has experienced skin sensitivity in the past. Denies weakness. Likely 2/2 cirrhosis. Suspicion of peritonitis low but cannot be excluded due to recent hematemesis and hx of variceal bleeding. Allodynia may be related to uremia vs fibromyalgia. Plan: - CTM abdominal pain - [place] 7.5 q6h prn #Hematemesis #Gastritis with recent mucusal bleeding #Grade I non-bleeding esophageal varicies at lower third of esophagus #Hx of Grade III esophageal varicies s/p banding 06/13/24 Patient's mother at bedside reports 2 episodes of hematemesis. Prior to admission about a spoonful of bright red blood and first episode a week before admission with about 2-3 spoonfuls of blood. FOBT positive Patient does have a history of grade 3 esophageal varices which were banded, however hemoglobin currently stable in the 10s, which is increased from previous admission in September where hemoglobin was 8-9 and patient has not had any further hematemesis, melena or hematochezia at this time. 11/14 EGD showed grade I esophageal varicies found in lower third of esophagus, diffuse severely erythematous mucosa with stigmata of recent bleeding found in entire stomach, mucosal oozing of blood due to hypertensive portal gastropathy, duodenum normal Octreotide drip (11/13-11/18) Plan: - Continue IV pantoprazole 40 mg BID - GI consulted, appreciate recs: 2g sodium diet - Ceftriaxone (11/22- - Octreotide ggt (11/21- #Leukopenia Patient WBC on 11/15 decreased from 3.8 to 1.8 with ANC 900. Per chart review, patient has fluctuated lowest being in the 2.0's. Likely secondary to cirrhosis and VRE UTI. Plan: - CTM CBC #Urinary retention, resolved Night of admission, patient developed urinary retention with bladder scan showing 500 cc of retained urine. DDx includes urinary tract infection, encephalopathy vs home methocarbamol s/e profile Liz (11/14-11/15), s/p bladder training Plan: - CTM urine output #Chronic pain Reports chronic pain since back injury years ago, currently has been taking [place] TID for at least a month. Pain on admission is generalized with tenderness to palpation over the entire body which has improved as mental status improves. Plan: - Pain scale regimen #NIDDM2 Last A1c 6.0 09/2024. On metformin 1g QD at home. Plan: - Degludac 8u - SSI Hospital management: Lines: PIV Diet: low sodium 2g Bowel: lactulose 20 mg TID GI prophylaxis: IV pantoprazole 40 mg BID DVT prophylaxis: SCDs, heparin held iso possible GIB Disposition: pending transfer CODE STATUS: Full code Plan of care discussed with attending Dr. Glover, and PGY-2 Dr. Tee. Ekaterina Quintero DO PGY-1 Internal Medicine Attending Provider Attestation/Addendum I have discussed and was present for the essential components of the history, physical examination, diagnosis, and treatment plan with the resident. I agree with the patient's care as documented by the resident and amended herein by me. Dickson Glover DO. Although this document has been carefully reviewed, there may still be some phonetic and other typographical errors. These errors are purely grammatical due to imperfections in the software program and should not be construed in any way to compromise the substance of the patient's medical care during this visit. Pending transfer to [facility] under Dr. Andrews for liver transplant evaluation
[2024-11-23 10:41] LABS: Partial Thromboplastin Time 82.2 Seconds (22.0-36.0)
[2024-11-23 10:49] LABS: Prothrombin Time > 63.0 Seconds (9.0-12.2)
[2024-11-23] MEDS: PHYTONADIONE INJ 10 MG/ML AMP SC (11:38)
[2024-11-23] MEDS: INSULIN LISPRO (AdmeLOG) 1 UNIT/0.01 ML UNIT SC ×2 (11:52→17:04)
--- NOTE | 2024-11-23 11:53 | PD.RESPRO ---
Documentation for date of: 11/23/24 Subjective Subjective Interval history: Ms. Knight is a 54-year-old lady who has extensive history of liver cirrhosis secondary to alcoholism (under liver transplant team) recurrent admissions for hepatic encephalopathy, upper GI bleed due to varices/banding, chronic pain syndrome, DM presented to the emergency department with 2 episodes of hematemesis going on for the last few days associated with altered mental status generalized pain weakness and poor p.o. intake. Denies any fever or chills. In the ED patient was noted to be hypotensive. She was given gentle IV fluids, albumin started on home midodrine and lactulose. Admitted to telemetry. Nephrology consultation requested in view of LILY. Patient well-known to me from previous admissions. Home medications included vitamin D, furosemide, [place], last close, metformin, methocarbamol, midodrine, Remeron, Protonix, rifaximin, spironolactone. Labs showed hemoglobin 10.3, platelets 30. Sodium 140, potassium 4.5, BUN 29, creatinine 2.4 of note 10/16/2023 her creatinine is 1.0., Calcium 10.8, magnesium 2.3, total bilirubin 6.7, AST 45, ALT 18, alk phos 96, albumin 2.9, urinalysis shows 2+ blood with 20 RBCs. 11/16/2024 patient currently seen in telemetry. Resting comfortably. Labs/medications reviewed. Urine output improving. She has a Liz catheter. Blood pressure 126/73, heart rate 83. WBC 1.8, hemoglobin 7.8, platelets 22. Creatinine improved to 1.6, sodium 144, potassium 3.9. Albumin 4.4. Patient had endoscopy yesterday. Patient in contact isolation for VRE UTI. Did receive IV fluids, albumin. Will continue albumin. Discharge planning per primary team. Did explain to the patient that she will have recurrent hospitalizations for complications from liver cirrhosis. 11/17/2024 patient seen in telemetry. Liz catheter removd. She continues to report diffuse body aches and generalized pain with significant tenderness to light touch, as well as weakness and discomfort on passive movement of the limbs. Symptoms consistent with deconditioning and overall deterioration from prolonged bed rest. Will benefit from physical therapy evaluation for mobility and strength support. Blood pressure 131/86, heart rate 81. WBC 3.0, hemoglobin 7.9, platelets 23, creatinine 1.5, sodium 147, potassium 4.6, albumin 4.8. She is cleared from a nephrology standpoint. 11/19/2024 patient seen in telemetry this morning. Reports feeling overall better with resolution of body aches, only mild back pain at this time. Completed 5-day octreotide course. Urine culture from 11/17 positive for VRE; started on linezolid yesterday per primary team. Liz catheter removed; patient voiding spontaneously with adequate output. BP 127/74, HR 82. Labs: Hgb 7.8, WBC 2.5, Plt 21, Na 146, K 5.2, Cl 109, Cr 1.3, total bilirubin 5.1, albumin 5.3. Will monitor potassium closely. Recommend holding spironolactone given hyperkalemia and improving renal function. 11/20/2024 patient seen in telemetry today. She continues to report feeling better overall, with improved appetite and less generalized discomfort. No new complaints of abdominal pain, shortness of breath, or nausea. Back pain mild and controlled. Liz remains out, patient voiding without difficulty. Vitals stable with BP 96/69 and HR 67. Labs today: WBC 3.7, Hgb 9.2, Plt 26, Na 144, K 5.4, Cl 107, HCO3 26, Ca 10.2, total bilirubin 6.2. Received 15 g Kayexalate this morning for hyperkalemia. Will continue to monitor potassium and renal function closely. 11/21/2024 patient seen in telemetry today. Complains of generalized pain, described as unchanged from prior, neither worse nor improved. Denies nausea, vomiting, chest pain, or shortness of breath. Liz remains out; continues to void adequately. BP 108/56, HR 73. Labs today: Hgb 8.0, Plt 25, Na 146, K 5.7, Ca 10.0, Mg 2.5. Hyperkalemia noted; management per primary team. 11/22/2024 patient seen in telemetry today. She continues to feel about the same as yesterday with no new complaints. Denies nausea, vomiting, chest pain, or dyspnea. Remains alert and communicative. Liz remains out, voiding well. Blood pressure 118/68 with pulse 73. Labs today: WBC 2.3, Hgb 7.0, Hct 20.9, Plt 19, Na 148, K 5.1, Cl 108, CO2 27.8, Cr 1.3 (improved from 1.5 yesterday), GFR 49, Ca 9.7, Mg 2.5, Phos 3.4. We will keep patient on nephrology service for one more day to continue monitoring renal function and potassium levels. 11/23/2024 patient seen in telemetry this morning. States she is feeling a little bit better today, denies new symptoms. No chest pain, shortness of breath, or worsening weakness. Liz remains out, voiding well. BP stable. Labs: WBC 2.3, Hgb 7.2, Hct 21.6, Plt 17, Na 147, K 4.6, Cl 108, CO2 27, Cr 1.49, Ca 10.5. Primary team will continue to follow and manage labs, including mild hypernatremia and calcium level. Nephrology will sign off at this time as renal function has stabilized. Exam Vital Signs Temp Pulse Resp BP Pulse Ox O2 Del Method O2 Flow Rate 97.3 F 72 17 123/73 91 L Room Air 2 11/23/24 08:00 11/23/24 08:00 11/23/24 08:00 11/23/24 08:00 11/23/24 08:00 11/23/24 08:00 11/21/24 08:00 Narrative Exam GENERAL: AOx3, no acute distress, sitting up, fatigued HEENT: NC/AT, mucous membranes moist, bilateral sclera icteric CARDIOVASCULAR: regular rate and rhythm, S1/S2 present, 3/6 systolic murmur heard best at left 2nd intercostal space PULMONARY: clear to auscultation bilaterally, no rales/rhonchi/wheezes ABDOMINAL: soft, mild diffuse tenderness to palpation, no rebound/guarding, bowel sounds present EXTREMITIES: no peripheral edema SKIN: warm and dry, intact, no rashes NEURO: CN II-XII grossly intact, no focal deficits, alert, following commands, + BUE tremors on extension, +mild asterixis Objective Labs 11/24/24 18:02 11/25/24 05:00 Labs: Laboratory Results - last 24 hr 11/23/24 11/23/24 11/23/24 05:35 08:00 09:51 WBC 2.3 L RBC 1.98 L* Hgb 7.2 L Hct 21.6 L* MCV 109 H MCH 36.4 H MCHC 33.3 RDW Std Deviation 74.4 H Plt Count 17 L* Neut % (Auto) 53 Lymph % (Auto) 33 [place] % (Auto) 8 Eos % (Auto) 6 Baso % (Auto) 1 Neut # (Auto) 1.2 L Lymph # (Auto) 0.7 L [place] # (Auto) 0.2 Eos # (Auto) 0.1 Baso # (Auto) 0.0 Immature Gran # (Auto) 0.01 H Absolute Nucleated RBC 0.00 Immature Gran % 0 Nucleated RBC % 0 PT > 63.0 H* INR APTT 82.2 H D Sodium 147 H Potassium 4.6 D Chloride 108 H Carbon Dioxide 27.0 Anion Gap 12 BUN 13 Creatinine 1.4 H Estim Creat Clear Calc 36.0 L eGFR 45 L BUN/Creatinine Ratio 9 L Glucose 129 H Calculated Osmolality 294 Calcium 10.5 Corrected Calcium 10.5 H Phosphorus 2.3 L Magnesium 2.3 Total Bilirubin 6.7 H D AST 26 ALT 10 Alkaline Phosphatase 38 L Total Protein 7.7 Albumin 5.7 H D Globulin 2.0 L Albumin/Globulin Ratio 2.9 H Misc Test Result Platelets confirmed Quality Measures Quality Measures VTE prophylaxis Assessment & Plan Assessment Current Active Medications: Generic Name Dose Route Start Last Admin Trade Name Freq PRN Reason Stop Dose Admin Hydrocodone Bitart/Acetaminophen 1 tab 11/21/24 09:50 11/21/24 22:37 Hydrocodone/Apap 5/325 Tablet PO 11/26/24 09:49 1 tab Q6HR PRN Administration PAIN SCALE 4-10(Mod-Sev Cyanocobalamin 1,000 mcg 11/23/24 09:00 11/23/24 08:23 Cyanocobalamin 500 Mcg Tablet PO 12/23/24 08:59 1,000 mcg QDAY CELINA Administration Dextrose 25 ml 11/22/24 09:17 Dextrose 50%-Water Inj 50 Ml Syringe IV 12/22/24 09:16 Q15MIN PRN BG 50-70 responsive npo pt Dextrose 50 ml 11/22/24 09:17 Dextrose 50%-Water Inj 50 Ml Syringe IV 12/22/24 09:16 Q15MIN PRN BG <50 OR BG <70 & pt unresponsive Folic Acid 2.5 mg 11/23/24 09:00 11/23/24 08:22 Folic Acid 1 Mg Tablet PO 12/23/24 08:59 2.5 mg QDAY CELINA Administration Glucagon 1 mg 11/22/24 09:17 Glucagon Inj 1 Mg Vial IM Q15MIN PRN BG <70, and no IV access Albumin Human 25 gm in 100 mls @ 100 mls/hr 11/21/24 09:51 11/23/24 08:22 Albuminex 25% Ivpb IV 11/25/24 23:00 100 mls/hr BID CELINA Administration Protocol Albumin Human 25 gm in 100 mls @ 100 mls/hr 11/21/24 11:00 11/23/24 10:19 Albuminex 25% Ivpb IV 11/25/24 10:59 100 mls/hr BID@1000,2200 CELINA Administration Protocol Octreotide Acetate 1,000 mcg/ 102 mls @ 5.1 mls/hr 11/21/24 16:23 11/23/24 06:03 Sodium Chloride IV 11/26/24 16:23 50 mcg/hr .Q20H CELINA 5.1 mls/hr Protocol Administration 50 MCG/HR Ceftriaxone Sodium/Dextrose 1 gm in 50 mls @ 100 mls/hr 11/22/24 13:30 11/23/24 08:22 Rocephin/D5w 1gm Iv Premix IV 11/29/24 13:29 100 mls/hr QDAY CELINA Administration Insulin Degludec 8 unit 11/18/24 14:30 11/23/24 08:23 Insulin Degludec 5 Unit/0.05 Ml (Per 5 Units) SC 12/18/24 14:29 8 unit QDAY CELINA Administration Insulin Human Lispro 0 unit 11/16/24 10:15 11/23/24 08:01 Insulin Lispro (Admelog) 1 Unit/0.01 Ml Unit SC 12/16/24 10:14 Not Given AC CELINA Protocol Lactulose 20 gm 11/19/24 14:00 11/23/24 06:04 Lactulose Syrup 20 Gm/30 Ml Udc PO 12/19/24 13:59 Not Given TID CELINA Protocol Linezolid 600 mg 11/18/24 11:15 11/23/24 08:24 Linezolid 600 Mg Tablet PO 11/25/24 11:14 600 mg BID CELINA Administration Midodrine 10 mg 11/17/24 14:00 11/23/24 06:04 Midodrine 5 Mg Tablet PO 12/17/24 13:59 10 mg TID CELINA Administration Ondansetron HCl 4 mg 11/20/24 10:43 11/20/24 10:52 Ondansetron Inj 2 Mg/Ml Inj 2 Ml IVP 12/20/24 10:42 4 mg Q6HR PRN Administration NAUSEA OR VOMITING Protocol Pantoprazole Sodium 40 mg 11/22/24 21:00 11/23/24 08:24 Pantoprazole 40 Mg Tablet PO 12/22/24 20:59 40 mg BID CELINA Administration Rifaximin 550 mg 11/23/24 09:00 11/23/24 10:18 Rifaximin 550 Mg Tablet PO 11/30/24 08:59 550 mg BID CELINA Administration Sodium Chloride 3 ml 11/21/24 07:03 Sodium Chloride Rt Karis 0.9% 3 Ml Nebu INH 12/21/24 07:02 PRN PRN SOLN Spironolactone 50 mg 11/16/24 10:15 11/18/24 08:50 Spironolactone 25 Mg Tablet PO 12/16/24 10:14 50 mg On Hold: 11/19/24 06:52 DAILY CELINA Administration Plan 53-year-old female with decompensated alcoholic cirrhosis and recurrent hepatic encephalopathy, admitted for hematemesis and altered mental status, found to have LILY and now VRE UTI. #LILY, likely prerenal azotemia vs HRS II Improving; creatinine stable 1.4, urine output stable. Likely secondary to poor oral intake and volume depletion. Continue albumin support Continue midodrine, octreotide Maintain euvolemia; monitor daily weights and I/O Electrolytes stable but mild hyperkalemia (K 4.6) resolved Hold spironolactone temporarily Encourage oral fluids as tolerated Cleared from nephrology standpoint #Acute metabolic encephalopathy #Hepatic encephalopathy In the setting of underlying cirrhosis Continue with lactulose, rifaximin, albumin #Decompensated cirrhosis, with sequela #Thrombocytopenia #Coagulopathy #Hyperbilirubinemia [place] class C 13 points Completed 5-day octreotide course for varices. MELD sodium 22 points with 19.6% 3-month mortality Continue lactulose, rifaximin, albumin, midodrine Outpatient hepatology follow up for liver transplant evaluation Did discuss with the primary team about transfer as her prognosis seems to be very poor with hepatorenal syndrome. #Macrocytic anemia Chronic, hemoglobin dropped to 7.2 hematocrit 21.6 and platelets 17 Likely from history of alcohol abuse Primary team will follow ----- Plan discussed with attending physician Dr. Yenny Raya MD PGY-1 Internal Medicine Attending Provider Attestation/Addendum Patient seen and examined with resident physician Dr. Raya. Note reviewed, agree with findings and recommendations.
--- NOTE | 2024-11-23 12:50 | PC.NURSE ---
Update of most recent vitals and pt condition given to Rene at [facility] transfer center. Rene stated we are pending insurance auth for transfer.
--- NOTE | 2024-11-23 18:15 | PD.IMPROG ---
Documentation for date of: 11/23/24 Subjective Subjective Interval history: Patient evaluated Hemoglobin hematocrit 7.2 and 21.6 with a platelet count of 17,000 Exam Vital Signs Temp Pulse Resp BP Pulse Ox O2 Del Method O2 Flow Rate 97.2 F 74 16 122/79 92 L Room Air 2 11/23/24 12:00 11/23/24 16:00 11/23/24 12:00 11/23/24 13:32 11/23/24 12:00 11/23/24 12:00 11/21/24 08:00 Objective Labs 11/23/24 05:35 11/23/24 05:35 Labs: Laboratory Results - last 24 hr 11/23/24 11/23/24 11/23/24 05:35 08:00 09:51 WBC 2.3 L RBC 1.98 L* Hgb 7.2 L Hct 21.6 L* MCV 109 H MCH 36.4 H MCHC 33.3 RDW Std Deviation 74.4 H Plt Count 17 L* Neut % (Auto) 53 Lymph % (Auto) 33 [place] % (Auto) 8 Eos % (Auto) 6 Baso % (Auto) 1 Neut # (Auto) 1.2 L Lymph # (Auto) 0.7 L [place] # (Auto) 0.2 Eos # (Auto) 0.1 Baso # (Auto) 0.0 Immature Gran # (Auto) 0.01 H Absolute Nucleated RBC 0.00 Immature Gran % 0 Nucleated RBC % 0 PT > 63.0 H* INR APTT 82.2 H D Sodium 147 H Potassium 4.6 D Chloride 108 H Carbon Dioxide 27.0 Anion Gap 12 BUN 13 Creatinine 1.4 H Estim Creat Clear Calc 36.0 L eGFR 45 L BUN/Creatinine Ratio 9 L Glucose 129 H Calculated Osmolality 294 Calcium 10.5 Corrected Calcium 10.5 H Phosphorus 2.3 L Magnesium 2.3 Total Bilirubin 6.7 H D AST 26 ALT 10 Alkaline Phosphatase 38 L Total Protein 7.7 Albumin 5.7 H D Globulin 2.0 L Albumin/Globulin Ratio 2.9 H Misc Test Result Platelets confirmed Impressions Impression: Metabolic/hepatic encephalopathy Upper GI bleed Posthemorrhagic anemia Continue current management Continue lactulose 3 times daily as well as Xifaxan Assessment & Plan A&P Narrative uti , mild with vre as only germ found po linezolid ok for this for total of 7d, cirrhosis, etoh related home at your discretion.if abd pain persists, then evaluate ascites will see again prn Time Spent With Patient Time: Total time spent is greater than 50% in coordination of care (as documented) at patient's floor/unit and/or counseling patient:
[2024-11-23] MEDS: HYDROcodone/APAP 5/325 TABLET 1 TAB PO (21:41)
[2024-11-24] VITALS (16 sets, daily range): BP systolic 115–141; BP diastolic 63–98; PULSE 63–81; RESP 12–20; TEMP 36.1–36.4; O2SAT 90–98
[2024-11-24] MEDS: OCTREOTIDE ACET INJ 1,000 MCG in SODIUM CHLORIDE 0.9% 100 ML 5.1 MCG IV (04:39)
[2024-11-24] MEDS: MIDODRINE 5 MG TABLET 10 MG PO ×2 (05:04→13:29)
[2024-11-24] MEDS: LACTULOSE SYRUP 20 GM/30 ML UDC PO ×3 (05:04→21:38)
[2024-11-24 06:02] LABS: Basophils # (Auto) 0.0 Thou/mm3 (0.0-0.2); Basophils % (Auto) 0 % (0-2.5); Eosinophils # (Auto) 0.1 Thou/mm3 (0.0-0.5); Eosinophils % (Auto) 5 % (0-10); Immature Granulocytes Auto 0.01 Thou/mm3 (0.00-0.00); Lymphocytes # (Auto) 0.8 Thou/mm3 (1.0-4.8); Lymphocytes % (Auto) 32 % (10-50); Mean Corpuscular HGB Conc 33.5 g/dl (31.0-37.0); Mean Corpuscular Hemoglobin 36.2 pg (25.0-35.0); Mean Corpuscular Volume 108 fL (80-100); Monocytes # (Auto) 0.1 Thou/mm3 (0.0-0.8); Monocytes % (Auto) 6 % (0-12); Neutrophils # (Auto) 1.4 Thou/mm3 (1.8-7.7); Neutrophils % (Auto) 57 % (37-80); Nucleated Red Blood Cell # 0.00 Thou/mm3 (0.00-0.00); Nucleated Red Blood Cell % 0 /100 WBC (0); RDW Standard Deviation 73.0 fL (36.4-46.3); Red Blood Count 1.85 Miln/mm3 (4.00-5.20); White Blood Count 2.4 Thou/mm3 (3.6-11.0)
[2024-11-24 06:06] LABS: Hematocrit 20.0 % (36.0-46.0); Hemoglobin 6.7 g/dL (12.0-16.0); Platelet Count 16 Thou/mm3 (140-440)
[2024-11-24 06:34] LABS: Alanine Aminotransferase 7 U/L (10-49); Albumin, Serum 5.5 gm/dL (3.5-5.0); Albumin/Globulin Ratio 3.1 (1.2-2.2); Alkaline Phosphatase 39 U/L (46-116); Anion Gap 14 (7-16); Aspartate Amino Transferase 23 U/L (0-34); BUN/Creatinine Ratio 13 Ratio (12-20); Bilirubin,Total 6.8 mg/dL (0.3-1.2); Blood Urea Nitrogen 16 mg/dL (9-23); Calcium 10.1 mg/dL (8.3-10.6); Calcium (Corrected) 10.1 mg/dL (8.5-10.1); Carbon Dioxide 25.2 mMol/L (20.0-31.0); Chloride 106 mMol/L (98-107); Creatinine (Component) 1.2 mg/dL (0.6-1.3); Estimated Creatinine Clearance 41.9 mL/min (>60); Globulin 1.8 gm/dL (2.3-3.5); Glucose 146 mg/dL (74-106); Magnesium 2.3 mg/dL (1.6-2.6); Osmolality,Calculated 292 (275-295); Phosphorous 2.5 mg/dL (2.4-5.1); Potassium 4.8 mMol/L (3.4-5.1); Sodium 145 mMol/L (136-145); Total Protein 7.3 gm/dL (5.7-8.2); eGFR 54 See Note
[2024-11-24 07:44] LABS: Partial Thromboplastin Time 76.5 Seconds (22.0-36.0)
[2024-11-24 07:59] LABS: Prothrombin Time > 63.0 Seconds (9.0-12.2)
[2024-11-24 08:00] LABS: Slide Review Platelets confirmed
[2024-11-24] MEDS: FOLIC ACID 1 MG TABLET 2.5 MG PO (09:21)
[2024-11-24] MEDS: ALBUMIN HUMAN-KJDA 25% IVPB 25 GM/100 ML BTL IV ×4 (09:21→21:41)
[2024-11-24] MEDS: PANTOPRAZOLE 40 MG TABLET PO ×2 (09:22→20:28)
[2024-11-24] MEDS: LINEZOLID 600 MG TABLET PO ×2 (09:22→20:28)
[2024-11-24] MEDS: cefTRIAXone/D5w 1gm IV premix 1 GM/50 ML BAG IV (09:23)
[2024-11-24] MEDS: INSULIN DEGLUDEC 5 UNIT/0.05 ML (PER 5 UNITS) 8 UNIT SC (09:23)
--- NOTE | 2024-11-24 11:24 | PC.CC ---
Addendum entered by Judson Hughes RN 11/24/24 11:48: 1145: spoke to Dr. Glover regarding sending clinicals to [place]. Informed him that we would be dealing with waiting for an insurance auth as well if patient were to be accepted. He stated to not follow through with [place] ath this time. Original Note: 1120: Sent clinicals to [place] [facility] to reopen transfer request. 1114: I called and spoke to Veronica in the [facility], she stated they are waiting for an [employer] from the insurance company and hopefully it will be done on Tuesday. She stated there isnt much we can do to hurry that process since they are closed on the weekend. 1102: spoke to Dr Glover in regards to transfer status and that pts condition is worsening. He is aware of the insurance auth situation.
--- NOTE | 2024-11-24 12:33 | ESPR_ITS ---
Documentation for date of: 11/24/24 Subjective Subjective Interval history: Patient was seen and examined at bedside this morning. No acute overnight events. Still pending transfer for evaluation of liver transplant. Patient creatinine improved today to 1.2, but her hemoglobin did drop below 7 therefore 1 unit of PRBC was transfused. Platelets were also 16 therefore 1 unit of platelets will be transfused as well. Still having some tremors, but improved from these priors. MELD-Na score t cannot be calculated given that INR could not be calculated given that PT was well above plus a range. Patient will finish linezolid tomorrow for her VRE UTI. Continue rifaximin, lactulose, albumin, midodrine, octreotide, and ceftriaxone. Exam Vital Signs Temp Pulse Resp BP Pulse Ox O2 Del Method O2 Flow Rate 97.4 F 76 15 127/76 96 Room Air 2 11/24/24 08:00 11/24/24 08:00 11/24/24 08:00 11/24/24 08:00 11/24/24 08:00 11/24/24 08:00 11/21/24 08:00 Narrative Exam General: A/O x3, no acute distress, ill-appearing Eyes: PERRL, EOMI. Icteric, vision grossly intact. Ears: No ear pain, no ear discharge, Hearing grossly intact. Nose: No nasal discharge. Mouth/Throat: Moist mucous membranes, no redness, no lesions. Neck: Neck supple, non-tender, no cervical lymphadenopathy. Lungs: Clear LUIS ENRIQUE to auscultation and percussion, No accessory muscle use. Cardio: Normal S1/S2, regular rhythm, systolic murmur appreciated, no JVD Abdomen: Soft, but mildly distended and mild generalized tenderness, no palpable masses, peristalsis present, no guarding or rebound. Extremities: Symmetrical, no significant deformities, Upper extremity edema likely from IV , non-tender, peripheral pulses presents. Skin: No rashes, no lesions, warm to touch. Neuro: No focal neurological deficits. following all commands. tremor in extended UE. Objective Labs 11/24/24 04:41 11/24/24 04:41 Labs: Laboratory Results - last 24 hr 11/24/24 11/24/24 04:41 10:22 WBC 2.4 L RBC 1.85 L* Hgb 6.7 L* Hct 20.0 L* MCV 108 H MCH 36.2 H MCHC 33.5 RDW Std Deviation 73.0 H Plt Count 16 L* Neut % (Auto) 57 Lymph % (Auto) 32 [place] % (Auto) 6 Eos % (Auto) 5 Baso % (Auto) 0 Neut # (Auto) 1.4 L Lymph # (Auto) 0.8 L [place] # (Auto) 0.1 Eos # (Auto) 0.1 Baso # (Auto) 0.0 Immature Gran # (Auto) 0.01 H Absolute Nucleated RBC 0.00 Immature Gran % 0 Nucleated RBC % 0 PT > 63.0 H* INR APTT 76.5 H Sodium 145 Potassium 4.8 Chloride 106 Carbon Dioxide 25.2 Anion Gap 14 BUN 16 Creatinine 1.2 Estim Creat Clear Calc 41.9 L eGFR 54 L BUN/Creatinine Ratio 13 Glucose 146 H Calculated Osmolality 292 Calcium 10.1 Corrected Calcium 10.1 Phosphorus 2.5 Magnesium 2.3 Total Bilirubin 6.8 H AST 23 ALT 7 L Alkaline Phosphatase 39 L Total Protein 7.3 Albumin 5.5 H Globulin 1.8 L Albumin/Globulin Ratio 3.1 H Misc Test Result Platelets confirmed Blood Type O Positive Antibody Screen NEGATIVE Crossmatch See Detail Blood Bank Wristband ID Yes Quality Measures Quality Measures VTE prophylaxis Assessment & Plan Assessment Current Active Medications: Generic Name Dose Route Start Last Admin Trade Name Freq PRN Reason Stop Dose Admin Hydrocodone Bitart/Acetaminophen 1 tab 11/21/24 09:50 11/23/24 21:41 Hydrocodone/Apap 5/325 Tablet PO 11/26/24 09:49 1 tab Q6HR PRN Administration PAIN SCALE 4-10(Mod-Sev Cyanocobalamin 1,000 mcg 11/23/24 09:00 11/24/24 09:22 Cyanocobalamin 500 Mcg Tablet PO 12/23/24 08:59 1,000 mcg QDAY CELINA Administration Dextrose 25 ml 11/22/24 09:17 Dextrose 50%-Water Inj 50 Ml Syringe IV 12/22/24 09:16 Q15MIN PRN BG 50-70 responsive npo pt Dextrose 50 ml 11/22/24 09:17 Dextrose 50%-Water Inj 50 Ml Syringe IV 12/22/24 09:16 Q15MIN PRN BG <50 OR BG <70 & pt unresponsive Folic Acid 2.5 mg 11/23/24 09:00 11/24/24 09:21 Folic Acid 1 Mg Tablet PO 12/23/24 08:59 2.5 mg QDAY CELINA Administration Glucagon 1 mg 11/22/24 09:17 Glucagon Inj 1 Mg Vial IM Q15MIN PRN BG <70, and no IV access Albumin Human 25 gm in 100 mls @ 100 mls/hr 11/21/24 09:51 11/24/24 09:21 Albuminex 25% Ivpb IV 11/25/24 23:00 100 mls/hr BID CELINA Administration Protocol Albumin Human 25 gm in 100 mls @ 100 mls/hr 11/21/24 11:00 11/24/24 11:07 Albuminex 25% Ivpb IV 11/25/24 10:59 100 mls/hr BID@1000,2200 CELINA Administration Protocol Octreotide Acetate 1,000 mcg/ 102 mls @ 5.1 mls/hr 11/21/24 16:23 11/24/24 04:39 Sodium Chloride IV 11/26/24 16:23 50 mcg/hr .Q20H CELINA 5.1 mls/hr Protocol Administration 50 MCG/HR Ceftriaxone Sodium/Dextrose 1 gm in 50 mls @ 100 mls/hr 11/22/24 13:30 11/24/24 09:23 Rocephin/D5w 1gm Iv Premix IV 11/29/24 13:29 100 mls/hr QDAY CELINA Administration Insulin Degludec 8 unit 11/18/24 14:30 11/24/24 09:23 Insulin Degludec 5 Unit/0.05 Ml (Per 5 Units) SC 12/18/24 14:29 8 unit QDAY CELINA Administration Insulin Human Lispro 0 unit 11/16/24 10:15 11/24/24 09:06 Insulin Lispro (Admelog) 1 Unit/0.01 Ml Unit SC 12/16/24 10:14 Not Given AC CELINA Protocol Lactulose 20 gm 11/19/24 14:00 11/24/24 05:04 Lactulose Syrup 20 Gm/30 Ml Udc PO 12/19/24 13:59 20 gm TID CELINA Administration Protocol Linezolid 600 mg 11/18/24 11:15 11/24/24 09:22 Linezolid 600 Mg Tablet PO 11/25/24 11:14 600 mg BID CELINA Administration Midodrine 10 mg 11/17/24 14:00 11/24/24 05:04 Midodrine 5 Mg Tablet PO 12/17/24 13:59 10 mg TID CELINA Administration Ondansetron HCl 4 mg 11/20/24 10:43 11/20/24 10:52 Ondansetron Inj 2 Mg/Ml Inj 2 Ml IVP 12/20/24 10:42 4 mg Q6HR PRN Administration NAUSEA OR VOMITING Protocol Pantoprazole Sodium 40 mg 11/22/24 21:00 11/24/24 09:22 Pantoprazole 40 Mg Tablet PO 12/22/24 20:59 40 mg BID CELINA Administration Rifaximin 550 mg 11/23/24 09:00 11/24/24 09:22 Rifaximin 550 Mg Tablet PO 11/30/24 08:59 550 mg BID CELINA Administration Sodium Chloride 3 ml 11/21/24 07:03 Sodium Chloride Rt Karis 0.9% 3 Ml Nebu INH 12/21/24 07:02 PRN PRN SOLN Spironolactone 50 mg 11/16/24 10:15 11/18/24 08:50 Spironolactone 25 Mg Tablet PO 12/16/24 10:14 50 mg On Hold: 11/19/24 06:52 DAILY CELINA Administration Plan Elzbieta Knight is a 54F pmhx of significant for decompensated alcoholic cirrhosis, multiple admissions for hepatic encephalopathy, hx of prior variceal bleeding s/p banding, chronic pain, NIDDM2 presented to [facility] 11/13 for altered mental status, weakness and 2 episodes of hematemesis admitted for hepatic encephalopathy likely secondary to decompensated alcoholic cirrhosis, found to have LILY, later developing leukopenia. #Hepatic encephalopathy 2/2 #Decompensated cirrhosis, likely alcoholic #Thrombocytopenia, stable #Hyperammonemia #Hypoalbuminemia, resolved #Coagulopathy #Macrocytic anemia, chronic Patient presented with altered mental status for the past 2 days with generalized weakness with severe asterixis. Patient has been seen multiple times at [facility] for hepatic encephalopathy. On admission, ammonia level elevated at 153, BUN 30, creatinine 2.4, troponin 0.031, platelet 32 decreased to 20, PT 17.7, INR 1.7. EKG NSR rate 81 and CXR showed poor inspiratory effort. UDS only positive for opiates. Patient is currently starting transplant process with appointments. Hgb fluctuates betweeen 7-10 MCV 100-110. Although patient reports being adherent to medication, patient continues to present with decompensated cirrhosis and hepatic encephalopathy. Likely that medication outpatient is not adequately decreasing ammonia levels and may need to be increased. Noted that patient is on Rifaximin 550 mg twice daily however it has not filled since 10/01/2024. Hypoalbuminemia, thrombocytopenia, coagulopathy likely secondary to cirrhosis. Admission MELD 3.0: 31, 68.3% 90 day survival. Child [place] Class C. Maddre[place]: 32.7, poor prognosis 11/22 MELD-Na 38, 52.6% 3 month mortality, with PT >68, INR manual calculation 8.6 11/23 MELD-Na 40, 71.3% 3 month mortality, with PT>68, INR manual calculation 8.6 11/24 MELD-Na 40, 65-66% 3 month mortality, with PT>68, INR manual calculation 8.6 Albumin (11/14-11/18) Plan: - Albumin 50g BID (11/21- - Rifamixin 550 mg BID and Lactulose 20 g TID - Continue home midodrine 10 mg TID - Transfuse 1 Unit of PRBC and PLT - Post transfusion CBC - Consider Lasix if patient becomes clinically fluid overloaded - No platelet or blood transfusion at this time as patient is hemodynamically stable with blood pressure holding and HR wnl, consider platelet transfusion if platelet becomes hemodynamically unstable - PT ordered, recommends home with home health #UTI, VRE #LILY, prerenal, improving #Hepatorenal syndrome #Hematuria 2/2 thrombopenia and/or VRE UTI #Hx of VRE UTI #Hyperkalemia Patient presented with creatinine of 2.4 and BUN of 30, baseline creatinine 0.9- 1. Admission UA showed 1+ blood, 18 RBC and 5 WBC. Patient has presented with history of increased creatinine on chart review and at the time was diagnosed with LILY Ddx includes prerenal LILY secondary to dehydration with nausea vomiting and lactulose, hepatorenal isohepatic encephalopathy, UTI as patient repeat UA 2+ blood, +LE and 28 WBC. Patient diagnosed with hepatorenal as blood pressure and kidney function increased with albumin and midodrine. Albumin was stopped for few days and LILY returned when albumin was restarted, creatinine decreased back to baseline. UCx grew VRE sensitive only to daptomycin, gentamicin synergy screen, and linezolid Plan: - Renal diet - PO linezolid 600 mg q12h (11/18-11/25) - ID consulted, recs appreciated: linezolid for 7 days - Hold spironolactone 50 mg due to hyperkalemia - Strict Is/Os, daily weights - Avoid nephrotoxic medications and renally dose - If creatinine continues to uptrend, consider urine electrolytes - Given hematuria, patient will need to follow-up outpatient with repeat UA #Abdominal pain #Allodynia After improvement of encephalopathy, patient reported severe abdominal pain to light touch as well as with diffuse tenderness to palpation over entire body, latter was not present on previous admissions. Per mother, patient has experienced skin sensitivity in the past. Denies weakness. Likely 2/2 cirrhosis. Suspicion of peritonitis low but cannot be excluded due to recent hematemesis and hx of variceal bleeding. Allodynia may be related to uremia vs fibromyalgia. Plan: - CTM abdominal pain - Caldwell 7.5 q6h prn #Hematemesis #Gastritis with recent mucusal bleeding #Grade I non-bleeding esophageal varicies at lower third of esophagus #Hx of Grade III esophageal varicies s/p banding 06/13/24 Patient's mother at bedside reports 2 episodes of hematemesis. Prior to admission about a spoonful of bright red blood and first episode a week before admission with about 2-3 spoonfuls of blood. FOBT positive Patient does have a history of grade 3 esophageal varices which were banded, however hemoglobin currently stable in the 10s, which is increased from previous admission in September where hemoglobin was 8-9 and patient has not had any further hematemesis, melena or hematochezia at this time. 11/14 EGD showed grade I esophageal varicies found in lower third of esophagus, diffuse severely erythematous mucosa with stigmata of recent bleeding found in entire stomach, mucosal oozing of blood due to hypertensive portal gastropathy, duodenum normal Octreotide drip (11/13-11/18) Plan: - Continue IV pantoprazole 40 mg BID - GI consulted, appreciate recs: 2g sodium diet - Ceftriaxone (11/22- - Octreotide ggt (11/21- #Leukopenia Patient WBC on 11/15 decreased from 3.8 to 1.8 with ANC 900. Per chart review, patient has fluctuated lowest being in the 2.0's. Likely secondary to cirrhosis and VRE UTI. Plan: - CTM CBC #Urinary retention, resolved Night of admission, patient developed urinary retention with bladder scan showing 500 cc of retained urine. DDx includes urinary tract infection, encephalopathy vs home methocarbamol s/e profile Liz (11/14-11/15), s/p bladder training Plan: - CTM urine output #Chronic pain Reports chronic pain since back injury years ago, currently has been taking [place] TID for at least a month. Pain on admission is generalized with tenderness to palpation over the entire body which has improved as mental status improves. Plan: - Pain scale regimen #NIDDM2 Last A1c 6.0 09/2024. On metformin 1g QD at home. Plan: - Degludac 8u - SSI Disposition: Pending transfer Diet: low sodium, renal GI prophylaxis: protonix DVT prophylaxis: SCDs in the setting of thrombocytopenia and anemia Code: full Case disclosed with Attending Dr. Adalberto Plata PGY2 Disclaimer: Even though this this note was dictated by speech recognition and even though it was carefully revised there may still be minor errors in machinist due to voice recognition software. Attending Provider Attestation/Addendum I have discussed and was present for the essential components of the history, physical examination, diagnosis, and treatment plan with the resident. I agree with the patient's care as documented by the resident and amended herein by me. Dickson Glover DO. Although this document has been carefully reviewed, there may still be some phonetic and other typographical errors. These errors are purely grammatical due to imperfections in the software program and should not be construed in any way to compromise the substance of the patient's medical care during this visit. Patient seen and evaluated this AM. No acute events overnight, vital signs stable, patient afebrile. Patient still lethargic today however able to answer questions. Significant labs today include a low hemoglobin at 6.7 which she has been transfused 1 unit, will be conservative with transfusions considering we do not want to overload the patient in setting of possible variceal bleeding, platelet count 16 today which we did order 1 unit of platelets to be transfused. BMP improved, creatinine 1.2 today, T. bili 6.8. INR could not be tested due to PT being out of range. Will continue to monitor patient closely and transfuse as necessary, the patient is on linezolid until 11/25 for VRE UTI. Transfer to [facility] under Dr. Andrews pending, the insurance Auth has not gone through and they are not open on the weekend hence we are waiting until next week, bed availability is another concern. Will continue lactulose, rifaximin, midodrine, albumin, ceftriaxone for for SBP prophylaxis, octreotide for potential variceal bleeding, linezolid for VRE UTI. Appreciate all specialist recommendations.
[2024-11-24] MEDS: INSULIN LISPRO (AdmeLOG) 1 UNIT/0.01 ML UNIT SC ×2 (12:37→17:25)
[2024-11-24] MEDS: HYDROcodone/APAP 5/325 TABLET 1 TAB PO ×2 (13:29→20:28)
--- NOTE | 2024-11-24 16:12 | PC.SS ---
Rounding note; Insurance Auth. needed for transfer to [facility].
--- NOTE | 2024-11-24 17:05 | PD.IMPROG ---
Documentation for date of: 11/24/24 Subjective Subjective Interval history: Patient evaluated hemoglobin hematocrit dropped down to 6.7 and 20.0 Patient needs 1 unit of PRBC Exam Vital Signs Temp Pulse Resp BP Pulse Ox O2 Del Method O2 Flow Rate 97 F 79 16 141/90 H 98 Room Air 1 11/24/24 16:18 11/24/24 16:18 11/24/24 16:18 11/24/24 16:18 11/24/24 16:18 11/24/24 12:00 11/24/24 16:18 Objective Labs 11/24/24 04:41 11/24/24 04:41 Labs: Laboratory Results - last 24 hr 11/24/24 11/24/24 04:41 10:22 WBC 2.4 L RBC 1.85 L* Hgb 6.7 L* Hct 20.0 L* MCV 108 H MCH 36.2 H MCHC 33.5 RDW Std Deviation 73.0 H Plt Count 16 L* Neut % (Auto) 57 Lymph % (Auto) 32 [place] % (Auto) 6 Eos % (Auto) 5 Baso % (Auto) 0 Neut # (Auto) 1.4 L Lymph # (Auto) 0.8 L [place] # (Auto) 0.1 Eos # (Auto) 0.1 Baso # (Auto) 0.0 Immature Gran # (Auto) 0.01 H Absolute Nucleated RBC 0.00 Immature Gran % 0 Nucleated RBC % 0 PT > 63.0 H* INR APTT 76.5 H Sodium 145 Potassium 4.8 Chloride 106 Carbon Dioxide 25.2 Anion Gap 14 BUN 16 Creatinine 1.2 Estim Creat Clear Calc 41.9 L eGFR 54 L BUN/Creatinine Ratio 13 Glucose 146 H Calculated Osmolality 292 Calcium 10.1 Corrected Calcium 10.1 Phosphorus 2.5 Magnesium 2.3 Total Bilirubin 6.8 H AST 23 ALT 7 L Alkaline Phosphatase 39 L Total Protein 7.3 Albumin 5.5 H Globulin 1.8 L Albumin/Globulin Ratio 3.1 H Misc Test Result Platelets confirmed Blood Type O Positive Antibody Screen NEGATIVE Crossmatch See Detail Blood Bank Wristband ID Yes Impressions Impression: Anemia blood loss due to mucosal oozing of blood acute posthemorrhagic anemia Metabolic encephalopathy Give patient 1 unit of PRBC Assessment & Plan A&P Narrative uti , mild with vre as only germ found po linezolid ok for this for total of 7d, cirrhosis, etoh related home at your discretion.if abd pain persists, then evaluate ascites will see again prn Time Spent With Patient Time: Total time spent is greater than 50% in coordination of care (as documented) at patient's floor/unit and/or counseling patient:
[2024-11-24 18:28] LABS: Hematocrit 24.4 % (36.0-46.0)
[2024-11-24 18:41] LABS: Hemoglobin 8.2 g/dL (12.0-16.0)
[2024-11-25] VITALS (10 sets, daily range): BP systolic 119–149; BP diastolic 63–82; PULSE 75–89; RESP 13–20; TEMP 35.9–36.2; O2SAT 96–99
[2024-11-25] MEDS: HYDROcodone/APAP 5/325 TABLET 1 TAB PO ×2 (02:33→18:16)
[2024-11-25] MEDS: OCTREOTIDE ACET INJ 1,000 MCG in SODIUM CHLORIDE 0.9% 100 ML 5.1 MCG IV (04:47)
[2024-11-25] MEDS: LACTULOSE SYRUP 20 GM/30 ML UDC PO (05:30)
[2024-11-25 06:53] LABS: Alanine Aminotransferase 8 U/L (10-49); Albumin, Serum 5.8 gm/dL (3.5-5.0); Albumin/Globulin Ratio 3.6 (1.2-2.2); Alkaline Phosphatase 31 U/L (46-116); Anion Gap 18 (7-16); Aspartate Amino Transferase 33 U/L (0-34); BUN/Creatinine Ratio 13 Ratio (12-20); Bilirubin,Total 7.4 mg/dL (0.3-1.2); Blood Urea Nitrogen 16 mg/dL (9-23); Calcium 10.4 mg/dL (8.3-10.6); Calcium (Corrected) 10.4 mg/dL (8.5-10.1); Carbon Dioxide 22.2 mMol/L (20.0-31.0); Chloride 106 mMol/L (98-107); Creatinine (Component) 1.2 mg/dL (0.6-1.3); Estimated Creatinine Clearance 41.9 mL/min (>60); Globulin 1.6 gm/dL (2.3-3.5); Glucose 144 mg/dL (74-106); Magnesium 2.4 mg/dL (1.6-2.6); Osmolality,Calculated 294 (275-295); Phosphorous 3.0 mg/dL (2.4-5.1); Potassium 4.8 mMol/L (3.4-5.1); Sodium 146 mMol/L (136-145); Total Protein 7.4 gm/dL (5.7-8.2); eGFR 54 See Note
[2024-11-25] MEDS: cefTRIAXone/D5w 1gm IV premix 1 GM/50 ML BAG IV (08:09)
[2024-11-25] MEDS: FOLIC ACID 1 MG TABLET 2.5 MG PO (08:15)
[2024-11-25] MEDS: PANTOPRAZOLE 40 MG TABLET PO ×2 (08:17→20:25)
[2024-11-25] MEDS: LINEZOLID 600 MG TABLET PO (08:17)
[2024-11-25] MEDS: INSULIN DEGLUDEC 5 UNIT/0.05 ML (PER 5 UNITS) 8 UNIT SC (08:29)
[2024-11-25] MEDS: ALBUMIN HUMAN-KJDA 25% IVPB 25 GM/100 ML BTL IV ×4 (08:45→21:34)
[2024-11-25 09:36] LABS: Lactate (Lactic Acid) 3.5 mMol/L (0.4-2.0)
[2024-11-25 09:53] LABS: Beta Hydroxybutyrate 0.3 mmol/L (<0.6)
[2024-11-25 10:03] LABS: Basophils # (Auto) 0.0 Thou/mm3 (0.0-0.2); Basophils % (Auto) 1 % (0-2.5); Eosinophils # (Auto) 0.1 Thou/mm3 (0.0-0.5); Eosinophils % (Auto) 5 % (0-10); Hematocrit 21.4 % (36.0-46.0); Immature Granulocytes Auto 0.00 Thou/mm3 (0.00-0.00); Lymphocytes # (Auto) 0.6 Thou/mm3 (1.0-4.8); Lymphocytes % (Auto) 32 % (10-50); Mean Corpuscular HGB Conc 33.6 g/dl (31.0-37.0); Mean Corpuscular Hemoglobin 35.0 pg (25.0-35.0); Mean Corpuscular Volume 104 fL (80-100); Monocytes # (Auto) 0.1 Thou/mm3 (0.0-0.8); Monocytes % (Auto) 6 % (0-12); Neutrophils # (Auto) 1.0 Thou/mm3 (1.8-7.7); Neutrophils % (Auto) 57 % (37-80); Nucleated Red Blood Cell # 0.00 Thou/mm3 (0.00-0.00); Nucleated Red Blood Cell % 0 /100 WBC (0); RDW Standard Deviation 70.5 fL (36.4-46.3); Red Blood Count 2.06 Miln/mm3 (4.00-5.20); White Blood Count 1.7 Thou/mm3 (3.6-11.0)
[2024-11-25 10:16] LABS: Hemoglobin 7.2 g/dL (12.0-16.0)
[2024-11-25 10:19] LABS: Platelet Count 29 Thou/mm3 (140-440)
[2024-11-25 10:21] LABS: INR 2.7 (0.9-1.3); Partial Thromboplastin Time 64.7 Seconds (22.0-36.0); Prothrombin Time 26.0 Seconds (9.0-12.2)
[2024-11-25 11:56] LABS: Slide Review Platelets confirmed
[2024-11-25] MEDS: INSULIN LISPRO (AdmeLOG) 1 UNIT/0.01 ML UNIT SC ×2 (11:57→16:56)
--- NOTE | 2024-11-25 12:05 | ESPR_ITS ---
Documentation for date of: 11/25/24 Subjective Subjective Interval history: No acute overnight events. Patient seen and examined at bedside. Patient reports worsening allodynia and continued abdominal pain. Reports extreme fatigue and weakness with persistent tremors on upper extremity extension. Denies dysuria. Reports about 4 bowel movements a day. Vitals labs reviewed. Telemetry reviewed, sinus rhythm rate 70-80s. Posttransfusion H&H 8.2/24.4. A.m. hemoglobin 7.2/21.4. WBC 1.7 decreased from 2.4. Platelets increased from 16 to 29 s/p 1 unit of platelets. PT 26, INR 2.7, AP TT 67.7. Sodium 146, potassium 4.8, bicarb 22.2, anion gap 18, lactic acid 3.5, calcium 10.4, T. bili 7.4 albumin high 5.8, beta hydroxy 0.3. Encourage patient to increase oral intake, at least 2 ensures a day. Pending transfer. MELD score today 27. Vitamin K 10 mg x 1 given. Given anion gap of 18, lactic acid ordered resulted at 3.5, likely chronic with inability to clear due to cirrhosis. Exam Vital Signs Temp Pulse Resp BP Pulse Ox O2 Del Method O2 Flow Rate 97 F 79 16 119/63 97 Nasal Cannula 1 11/25/24 08:00 11/25/24 08:00 11/25/24 08:00 11/25/24 08:00 11/25/24 08:00 11/25/24 08:00 11/25/24 08:00 Narrative Exam GENERAL: AOx3, no acute distress, sitting up, fatigued HEENT: NC/AT, mucous membranes moist, bilateral sclera icteric CARDIOVASCULAR: regular rate and rhythm, S1/S2 present, 3/6 systolic murmur heard best at left 2nd intercostal space PULMONARY: clear to auscultation bilaterally, no rales/rhonchi/wheezes ABDOMINAL: soft, mild diffuse tenderness to palpation, no rebound/guarding, bowel sounds present EXTREMITIES: no peripheral edema SKIN: warm and dry, intact, no rashes NEURO: CN II-XII grossly intact, no focal deficits, alert, following commands, + BUE tremors on extension Objective Labs 11/25/24 09:19 11/25/24 05:00 Labs: Laboratory Results - last 24 hr 11/24/24 11/24/2411/25/25 10:22 18:02 05:00 WBC RBC Hgb 8.2 L D Hct 24.4 L MCV MCH MCHC RDW Std Deviation Plt Count Neut % (Auto) Lymph % (Auto) [place] % (Auto) Eos % (Auto) Baso % (Auto) Neut # (Auto) Lymph # (Auto) [place] # (Auto) Eos # (Auto) Baso # (Auto) Immature Gran # (Auto) Absolute Nucleated RBC Immature Gran % Nucleated RBC % PT INR APTT Sodium 146 H Potassium 4.8 Chloride 106 Carbon Dioxide 22.2 Anion Gap 18 H BUN 16 Creatinine 1.2 Estim Creat Clear Calc 41.9 L eGFR 54 L BUN/Creatinine Ratio 13 Glucose 144 H Calculated Osmolality 294 Lactic Acid Calcium 10.4 Corrected Calcium 10.4 H Phosphorus 3.0 Magnesium 2.4 Total Bilirubin 7.4 H D AST 33 ALT 8 L Alkaline Phosphatase 31 L D Total Protein 7.4 Albumin 5.8 H Globulin 1.6 L Albumin/Globulin Ratio 3.6 H Beta-Hydroxybutyrate/Acetoacetate Misc Test Result Blood Type O Positive Antibody Screen NEGATIVE Crossmatch See Detail Blood Bank Wristband ID Yes Blood Bank Comment PLATP Ready 11/25/24 11/25/24 09:14 09:19 WBC 1.7 L RBC 2.06 L Hgb 7.2 L Hct 21.4 L* MCV 104 H MCH 35.0 MCHC 33.6 RDW Std Deviation 70.5 H Plt Count 29 L* D Neut % (Auto) 57 Lymph % (Auto) 32 [place] % (Auto) 6 Eos % (Auto) 5 Baso % (Auto) 1 Neut # (Auto) 1.0 L Lymph # (Auto) 0.6 L [place] # (Auto) 0.1 Eos # (Auto) 0.1 Baso # (Auto) 0.0 Immature Gran # (Auto) 0.00 Absolute Nucleated RBC 0.00 Immature Gran % 0 Nucleated RBC % 0 PT 26.0 H D INR 2.7 H APTT 64.7 H D Sodium Potassium Chloride Carbon Dioxide Anion Gap BUN Creatinine Estim Creat Clear Calc eGFR BUN/Creatinine Ratio Glucose Calculated Osmolality Lactic Acid 3.5 H Calcium Corrected Calcium Phosphorus Magnesium Total Bilirubin AST ALT Alkaline Phosphatase Total Protein Albumin Globulin Albumin/Globulin Ratio Beta-Hydroxybutyrate/Acetoacetate 0.3 Misc Test Result Platelets confirmed Blood Type Antibody Screen Crossmatch Blood Bank Wristband ID Blood Bank Comment Quality Measures Quality Measures VTE prophylaxis Assessment & Plan Assessment Current Active Medications: Generic Name Dose Route Start Last Admin Trade Name [place] PRN Reason Stop Dose Admin Hydrocodone Bitart/Acetaminophen 1 tab 11/21/24 09:50 11/25/24 02:33 Hydrocodone/Apap 5/325 Tablet PO 11/26/24 09:49 1 tab Q6HR PRN Administration PAIN SCALE 4-10(Mod-Sev Cyanocobalamin 1,000 mcg 11/23/24 09:00 11/25/24 08:17 Cyanocobalamin 500 Mcg Tablet PO 12/23/24 08:59 1,000 mcg QDAY CELINA Administration Dextrose 25 ml 11/22/24 09:17 Dextrose 50%-Water Inj 50 Ml Syringe IV 12/22/24 09:16 Q15MIN PRN BG 50-70 responsive npo pt Dextrose 50 ml 11/22/24 09:17 Dextrose 50%-Water Inj 50 Ml Syringe IV 12/22/24 09:16 Q15MIN PRN BG <50 OR BG <70 & pt unresponsive Folic Acid 2.5 mg 11/23/24 09:00 11/25/24 08:15 Folic Acid 1 Mg Tablet PO 12/23/24 08:59 2.5 mg QDAY CELINA Administration Glucagon 1 mg 11/22/24 09:17 Glucagon Inj 1 Mg Vial IM Q15MIN PRN BG <70, and no IV access Albumin Human 25 gm in 100 mls @ 100 mls/hr 11/21/24 09:51 11/25/24 08:45 Albuminex 25% Ivpb IV 11/25/24 23:00 100 mls/hr BID CELINA Administration Protocol Albumin Human 25 gm in 100 mls @ 100 mls/hr 11/21/24 11:00 11/25/24 10:04 Albuminex 25% Ivpb IV 11/25/24 23:00 100 mls/hr BID@1000,2200 CELINA Administration Protocol Octreotide Acetate 1,000 mcg/ 102 mls @ 5.1 mls/hr 11/21/24 16:23 11/25/24 04:47 Sodium Chloride IV 11/26/24 16:23 50 mcg/hr .Q20H CELINA 5.1 mls/hr Protocol Administration 50 MCG/HR Ceftriaxone Sodium/Dextrose 1 gm in 50 mls @ 100 mls/hr 11/22/24 13:30 11/25/24 08:09 Rocephin/D5w 1gm Iv Premix IV 11/29/24 13:29 100 mls/hr QDAY CELINA Administration Albumin Human 25 gm in 100 mls @ 100 mls/hr 11/26/24 10:30 Albuminex 25% Ivpb IV 12/26/24 10:29 QDAY CELINA Insulin Degludec 8 unit 11/18/24 14:30 11/25/24 08:29 Insulin Degludec 5 Unit/0.05 Ml (Per 5 Units) SC 12/18/24 14:29 8 unit QDAY CELINA Administration Insulin Human Lispro 0 unit 11/16/24 10:15 11/25/24 11:57 Insulin Lispro (Admelog) 1 Unit/0.01 Ml Unit SC 12/16/24 10:14 1 unit AC CELINA Administration Protocol Lactulose 20 gm 11/19/24 14:00 11/25/24 05:30 Lactulose Syrup 20 Gm/30 Ml Udc PO 12/19/24 13:59 20 gm TID CELINA Administration Protocol Midodrine 10 mg 11/17/24 14:00 11/25/24 05:20 Midodrine 5 Mg Tablet PO 12/17/24 13:59 Not Given TID CELINA Ondansetron HCl 4 mg 11/20/24 10:43 11/20/24 10:52 Ondansetron Inj 2 Mg/Ml Inj 2 Ml IVP 12/20/24 10:42 4 mg Q6HR PRN Administration NAUSEA OR VOMITING Protocol Pantoprazole Sodium 40 mg 11/22/24 21:00 11/25/24 08:17 Pantoprazole 40 Mg Tablet PO 12/22/24 20:59 40 mg BID CELINA Administration Rifaximin 550 mg 11/23/24 09:00 11/25/24 08:17 Rifaximin 550 Mg Tablet PO 11/30/24 08:59 550 mg BID CELINA Administration Sodium Chloride 3 ml 11/21/24 07:03 Sodium Chloride Rt Karis 0.9% 3 Ml Nebu INH 12/21/24 07:02 PRN PRN SOLN Spironolactone 50 mg 11/16/24 10:15 11/18/24 08:50 Spironolactone 25 Mg Tablet PO 12/16/24 10:14 50 mg On Hold: 11/19/24 06:52 DAILY CELINA Administration Plan Elzbieta Knight is a 54F pmhx of significant for decompensated alcoholic cirrhosis, multiple admissions for hepatic encephalopathy, hx of prior variceal bleeding s/p banding, chronic pain, NIDDM2 presented to [facility] 11/13 for altered mental status, weakness and 2 episodes of hematemesis admitted for hepatic encephalopathy likely secondary to decompensated alcoholic cirrhosis, found to have LILY, later developing leukopenia. #Hepatic encephalopathy 2/2 #Decompensated cirrhosis, likely alcoholic #Thrombocytopenia, stable s/p 1u platelets (11/24/24) #Hyperammonemia #Hypoalbuminemia, resolved #Coagulopathy #Macrocytic anemia, chronic s/p 1pRBC (11/24/24) #Elevated lactic acid Patient presented with altered mental status for the past 2 days with generalized weakness with severe asterixis. Patient has been seen multiple times at [facility] for hepatic encephalopathy. On admission, ammonia level elevated at 153, BUN 30, creatinine 2.4, troponin 0.031, platelet 32 decreased to 20, PT 17.7, INR 1.7. EKG NSR rate 81 and CXR showed poor inspiratory effort. UDS only positive for opiates. Patient is currently starting transplant process with appointments. Hgb fluctuates betweeen 7-10 MCV 100-110. Although patient reports being adherent to medication, patient continues to present with decompensated cirrhosis and hepatic encephalopathy. Likely that medication outpatient is not adequately decreasing ammonia levels and may need to be increased. Noted that patient is on Rifaximin 550 mg twice daily however it has not filled since 10/01/2024. Hypoalbuminemia, thrombocytopenia, coagulopathy likely secondary to cirrhosis. Elevated lactic acid likely 2/2 cirrhosis and inability to clear. Admission MELD 3.0: 31, 68.3% 90 day survival. Child [place] Class C. [place]: 32.7, poor prognosis 11/22 MELD-Na 38, 52.6% 3 month mortality, with PT >68, INR manual calculation 8.6 11/23 MELD-Na 40, 71.3% 3 month mortality, with PT>68, INR manual calculation 8.6 11/24 MELD-Na 40, 65-66% 3 month mortality, with PT>68, INR manual calculation 8.6 11/25 MELD-Na 27, 19.6% 3 month mortality, INR 2.7 Albumin (11/14-11/18) Plan: - Albumin 25g BID (11/21- - Rifamixin 550 mg BID and Lactulose 20 g TID - Continue home midodrine 10 mg TID - Consider Lasix if patient becomes clinically fluid overloaded - No further platelet or blood transfusion at this time as patient is hemodynamically stable with blood pressure holding and HR wnl, consider platelet transfusion if platelet becomes hemodynamically unstable - PT ordered, recommends home with home health #UTI, VRE #LILY, prerenal, improving #Hepatorenal syndrome #Hematuria 2/2 thrombopenia and/or VRE UTI #Hx of VRE UTI #Hyperkalemia Patient presented with creatinine of 2.4 and BUN of 30, baseline creatinine 0.9- 1. Admission UA showed 1+ blood, 18 RBC and 5 WBC. Patient has presented with history of increased creatinine on chart review and at the time was diagnosed with LILY Ddx includes prerenal LILY secondary to dehydration with nausea vomiting and lactulose, hepatorenal isohepatic encephalopathy, UTI as patient repeat UA 2+ blood, +LE and 28 WBC. Patient diagnosed with hepatorenal as blood pressure and kidney function increased with albumin and midodrine. Albumin was stopped for few days and LILY returned when albumin was restarted, creatinine decreased back to baseline. UCx grew VRE sensitive only to daptomycin, gentamicin synergy screen, and linezolid Plan: - Renal diet - PO linezolid 600 mg q12h (11/18-11/25) - ID consulted, recs appreciated: linezolid for 7 days - Hold spironolactone 50 mg due to hyperkalemia - Strict Is/Os, daily weights - Avoid nephrotoxic medications and renally dose - If creatinine continues to uptrend, consider urine electrolytes - Given hematuria, patient will need to follow-up outpatient with repeat UA #Abdominal pain #Allodynia After improvement of encephalopathy, patient reported severe abdominal pain to light touch as well as with diffuse tenderness to palpation over entire body, latter was not present on previous admissions. Per mother, patient has experienced skin sensitivity in the past. Denies weakness. Likely 2/2 cirrhosis. Suspicion of peritonitis low but cannot be excluded due to recent hematemesis and hx of variceal bleeding. Allodynia may be related to uremia vs fibromyalgia. Plan: - CTM abdominal pain - [place] 7.5 q6h prn #Hematemesis #Gastritis with recent mucusal bleeding #Grade I non-bleeding esophageal varicies at lower third of esophagus #Hx of Grade III esophageal varicies s/p banding 06/13/24 Patient's mother at bedside reports 2 episodes of hematemesis. Prior to admission about a spoonful of bright red blood and first episode a week before admission with about 2-3 spoonfuls of blood. FOBT positive Patient does have a history of grade 3 esophageal varices which were banded, however hemoglobin currently stable in the 10s, which is increased from previous admission in September where hemoglobin was 8-9 and patient has not had any further hematemesis, melena or hematochezia at this time. 11/14 EGD showed grade I esophageal varicies found in lower third of esophagus, diffuse severely erythematous mucosa with stigmata of recent bleeding found in entire stomach, mucosal oozing of blood due to hypertensive portal gastropathy, duodenum normal Octreotide drip (11/13-11/18) Plan: - Continue IV pantoprazole 40 mg BID - GI consulted, appreciate recs: 2g sodium diet - Ceftriaxone (11/22- - Octreotide ggt (11/21- #Leukopenia Patient WBC on 11/15 decreased from 3.8 to 1.8 with ANC 900. Per chart review, patient has fluctuated lowest being in the 2.0's. Likely secondary to cirrhosis and VRE UTI. Plan: - CTM CBC #Urinary retention, resolved Night of admission, patient developed urinary retention with bladder scan showing 500 cc of retained urine. DDx includes urinary tract infection, encephalopathy vs home methocarbamol s/e profile Liz (11/14-11/15), s/p bladder training Plan: - CTM urine output #Chronic pain Reports chronic pain since back injury years ago, currently has been taking [place] TID for at least a month. Pain on admission is generalized with tenderness to palpation over the entire body which has improved as mental status improves. Plan: - Pain scale regimen #NIDDM2 Last A1c 6.0 09/2024. On metformin 1g QD at home. Plan: - Degludac 8u - SSI Hospital management: Lines: PIV Diet: low sodium 2g Bowel: lactulose 20 mg TID GI prophylaxis: IV pantoprazole 40 mg BID DVT prophylaxis: SCDs, heparin held iso possible GIB Disposition: pending transfer CODE STATUS: Full code Plan of care discussed with attending Dr. Glover. Ekaterina Quintero DO PGY-1 Internal Medicine Attending Provider Attestation/Addendum I have discussed and was present for the essential components of the history, physical examination, diagnosis, and treatment plan with the resident. I agree with the patient's care as documented by the resident and amended herein by me. Dickson Glover DO. Although this document has been carefully reviewed, there may still be some phonetic and other typographical errors. These errors are purely grammatical due to imperfections in the software program and should not be construed in any way to compromise the substance of the patient's medical care during this visit. Patient seen and evaluated this AM. Patient still very somnolent and lethargic in the a.m., is not eating very much, nursing reports she has been eating 0% of her meals over the last 2 days. More edematous today with extensive ecchymosis on the upper extremities. Significant labs include a WBC of 1.7, hemoglobin 7.2, hematocrit 21%, platelet count 29 posttransfusion yesterday, neutrophils 1 lymphocytes 0.6, INR 2.7, anion gap is 18 possibly secondary to lactic acid versus starvation ketosis although beta hydroxybutyrate is normal, T. bili 7.4 today which is an uptrend, corrected calcium 10.4 and anion gap of 18, sodium 146. Albumin is 5.8 however the patient has been getting albumin. No additional imaging done in the last 24 hours. Today we will try to reduce as many IV medications as we can to minimize upper extremity edema however may be difficult, we have encouraged the patient to eat is much as she can to include supplemental shakes i.e., Ensure, the family was at bedside namely her mother who understood and will help her eat is much as possible. Today is her last day of linezolid for VRE UTI, will continue midodrine, lactulose, rifaximin however may discontinue octreotide for now. Patient also on ceftriaxone for SBP prophylaxis. Will continue to monitor closely, the patient has been accepted to [facility] under Dr. Andrews however the insurance company has not authorized our transfer request and will not do so over the weekend unfortunately. Will continue to monitor closely however prognosis is guarded.
[2024-11-25] MEDS: PHYTONADIONE INJ 10 MG/ML AMP SC (12:20)
[2024-11-25 12:36] LABS: Reflex Lactate? Y
[2024-11-25 13:10] LABS: Lactic Acid, 3 HR 3.9 mMol/L (0.4-2.0)
[2024-11-25] MEDS: MIDODRINE 5 MG TABLET 10 MG PO ×2 (14:30→21:34)
--- NOTE | 2024-11-25 18:08 | ESPR_ITS ---
Documentation for date of: 11/25/24 Subjective Subjective Interval history: Patient evaluated WBC: 1.7 hemoglobin hematocrit 7.2 and 21.4 and a platelet count of 29,000 Exam Vital Signs Temp Pulse Resp BP Pulse Ox O2 Del Method O2 Flow Rate 97 F 83 15 140/75 H 96 Nasal Cannula 1 11/25/24 16:00 11/25/24 16:00 11/25/24 16:00 11/25/24 16:00 11/25/24 16:00 11/25/24 16:00 11/25/24 16:00 Constitutional Comments: Somewhat more alert Routine Respiratory Exam Comments: Normal to auscultation Routine Abdominal Exam Comments: Soft nontender Objective Labs 11/25/24 09:19 11/25/24 05:00 Labs: Laboratory Results - last 24 hr 11/24/24 11/24/24 11/25/24 10:22 18:02 05:00 WBC RBC Hgb 8.2 L D Hct 24.4 L MCV MCH MCHC RDW Std Deviation Plt Count Neut % (Auto) Lymph % (Auto) [place] % (Auto) Eos % (Auto) Baso % (Auto) Neut # (Auto) Lymph # (Auto) [place] # (Auto) Eos # (Auto) Baso # (Auto) Immature Gran # (Auto) Absolute Nucleated RBC Immature Gran % Nucleated RBC % PT INR APTT Sodium 146 H Potassium 4.8 Chloride 106 Carbon Dioxide 22.2 Anion Gap 18 H BUN 16 Creatinine 1.2 Estim Creat Clear Calc 41.9 L eGFR 54 L BUN/Creatinine Ratio 13 Glucose 144 H Calculated Osmolality 294 Lactic Acid Calcium 10.4 Corrected Calcium 10.4 H Phosphorus 3.0 Magnesium 2.4 Total Bilirubin 7.4 H D AST 33 ALT 8 L Alkaline Phosphatase 31 L D Total Protein 7.4 Albumin 5.8 H Globulin 1.6 L Albumin/Globulin Ratio 3.6 H Beta-Hydroxybutyrate/Acetoacetate Misc Test Result Blood Type O Positive Antibody Screen NEGATIVE Crossmatch See Detail Blood Bank Wristband ID Yes Blood Bank Comment PLATP Ready 11/25/24 11/25/24 11/25/24 09:14 09:19 12:49 WBC 1.7 L RBC 2.06 L Hgb 7.2 L Hct 21.4 L* MCV 104 H MCH 35.0 MCHC 33.6 RDW Std Deviation 70.5 H Plt Count 29 L* D Neut % (Auto) 57 Lymph % (Auto) 32 [place] % (Auto) 6 Eos % (Auto) 5 Baso % (Auto) 1 Neut # (Auto) 1.0 L Lymph # (Auto) 0.6 L [place] # (Auto) 0.1 Eos # (Auto) 0.1 Baso # (Auto) 0.0 Immature Gran # (Auto) 0.00 Absolute Nucleated RBC 0.00 Immature Gran % 0 Nucleated RBC % 0 PT 26.0 H D INR 2.7 H APTT 64.7 H D Sodium Potassium Chloride Carbon Dioxide Anion Gap BUN Creatinine Estim Creat Clear Calc eGFR BUN/Creatinine Ratio Glucose Calculated Osmolality Lactic Acid 3.5 H 3.9 H Calcium Corrected Calcium Phosphorus Magnesium Total Bilirubin AST ALT Alkaline Phosphatase Total Protein Albumin Globulin Albumin/Globulin Ratio Beta-Hydroxybutyrate/Acetoacetate 0.3 Misc Test Result Platelets confirmed Blood Type Antibody Screen Crossmatch Blood Bank Wristband ID Blood Bank Comment Impressions Impression: Hepatic/metabolic encephalopathy 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
[2024-11-26] VITALS (9 sets, daily range): BP systolic 120–136; BP diastolic 72–91; PULSE 83–92; RESP 12–19; TEMP 36.1–36.6; O2SAT 96–97; BMI 33.7
[2024-11-26] MEDS: OCTREOTIDE ACET INJ 1,000 MCG in SODIUM CHLORIDE 0.9% 100 ML 5.1 MCG IV ×2 (00:17→17:10)
[2024-11-26] MEDS: LACTULOSE SYRUP 20 GM/30 ML UDC PO (05:14)
[2024-11-26] MEDS: MIDODRINE 5 MG TABLET 10 MG PO ×3 (05:14→21:25)
[2024-11-26] MEDS: FOLIC ACID 1 MG TABLET 2.5 MG PO (08:03)
[2024-11-26] MEDS: INSULIN DEGLUDEC 5 UNIT/0.05 ML (PER 5 UNITS) 8 UNIT SC (08:03)
[2024-11-26] MEDS: PANTOPRAZOLE 40 MG TABLET PO ×2 (08:03→20:31)
[2024-11-26] MEDS: cefTRIAXone/D5w 1gm IV premix 1 GM/50 ML BAG IV (08:21)
[2024-11-26 08:22] LABS: Basophils # (Auto) 0.0 Thou/mm3 (0.0-0.2); Basophils % (Auto) 1 % (0-2.5); Eosinophils # (Auto) 0.2 Thou/mm3 (0.0-0.5); Eosinophils % (Auto) 4 % (0-10); Hematocrit 21.8 % (36.0-46.0); Immature Granulocytes Auto 0.01 Thou/mm3 (0.00-0.00); Lymphocytes # (Auto) 0.7 Thou/mm3 (1.0-4.8); Lymphocytes % (Auto) 19 % (10-50); Mean Corpuscular HGB Conc 33.9 g/dl (31.0-37.0); Mean Corpuscular Hemoglobin 34.9 pg (25.0-35.0); Mean Corpuscular Volume 103 fL (80-100); Monocytes # (Auto) 0.1 Thou/mm3 (0.0-0.8); Monocytes % (Auto) 4 % (0-12); Neutrophils # (Auto) 2.5 Thou/mm3 (1.8-7.7); Neutrophils % (Auto) 72 % (37-80); Nucleated Red Blood Cell # 0.00 Thou/mm3 (0.00-0.00); Nucleated Red Blood Cell % 0 /100 WBC (0); RDW Standard Deviation 67.4 fL (36.4-46.3); Red Blood Count 2.12 Miln/mm3 (4.00-5.20); White Blood Count 3.6 Thou/mm3 (3.6-11.0)
[2024-11-26 08:29] LABS: Alanine Aminotransferase < 7 U/L (10-49); Albumin, Serum 5.7 gm/dL (3.5-5.0); Albumin/Globulin Ratio 2.9 (1.2-2.2); Alkaline Phosphatase 34 U/L (46-116); Anion Gap 15 (7-16); Aspartate Amino Transferase 24 U/L (0-34); BUN/Creatinine Ratio 15 Ratio (12-20); Bilirubin,Total 7.6 mg/dL (0.3-1.2); Blood Urea Nitrogen 23 mg/dL (9-23); Calcium 10.7 mg/dL (8.3-10.6); Calcium (Corrected) 10.7 mg/dL (8.5-10.1); Carbon Dioxide 26.4 mMol/L (20.0-31.0); Chloride 104 mMol/L (98-107); Creatinine (Component) 1.5 mg/dL (0.6-1.3); Estimated Creatinine Clearance 38.5 mL/min (>60); Globulin 2.0 gm/dL (2.3-3.5); Glucose 160 mg/dL (74-106); Magnesium 2.2 mg/dL (1.6-2.6); Osmolality,Calculated 295 (275-295); Phosphorous 3.0 mg/dL (2.4-5.1); Potassium 4.6 mMol/L (3.4-5.1); Sodium 145 mMol/L (136-145); Total Protein 7.7 gm/dL (5.7-8.2); eGFR 41 See Note
--- NOTE | 2024-11-26 08:47 | PC.NURSE ---
Patient is more letharic this morning. She was unable to tell me where she is and what day it is. Patient was able to state who she was. Meds crushed in apple sauce and MD called for patient's increased lethargic
[2024-11-26 09:01] LABS: Hemoglobin 7.4 g/dL (12.0-16.0)
[2024-11-26 09:02] LABS: Platelet Count 31 Thou/mm3 (140-440)
[2024-11-26 09:24] LABS: Partial Thromboplastin Time 69.8 Seconds (22.0-36.0)
[2024-11-26 09:25] LABS: Slide Review Platelets confirmed
[2024-11-26 09:28] LABS: Prothrombin Time > 63.0 Seconds (9.0-12.2)
--- NOTE | 2024-11-26 09:36 | PC.NURSE ---
patient update given to Yeimi at [facility] transfer center. pending insurance authorization and bed placement.
[2024-11-26] MEDS: ALBUMIN HUMAN-KJDA 25% IVPB 25 GM/100 ML BTL IV ×2 (10:35→20:34)
--- NOTE | 2024-11-26 10:37 | PC.CM ---
Addendum entered by Kacey Mclean RN 11/26/24 19:17: [facility] is working with [facility] for Letter of agreement for transfer. Packet on transfer nurse desk. Original Note: I called and spoke to Shelli with the finance department at [facility]. She states her team is working on getting the [facility] from [facility] at this time. She states they have everything they need from us at this time. She states once they get the [facility] from [facility] they will work on getting a bed for patient.
[2024-11-26 10:43] LABS: Ammonia 84 uMol/L (11-32)
--- NOTE | 2024-11-26 10:43 | XR_ITS ---
EXAMINATION: AP chest single view TECHNIQUE: AP portable semiupright chest single view Date and time: November 26, 2024 1325 hours, comparison 11/13/2024 INDICATIONS: Post orogastric tube placement FINDINGS: Orogastric tube in the stomach, the tip is below the level of film Mild enlargement cardiac contour with prominent vascular congestion and pneumonia versus atelectasis at the lung bases Air distended colon IMPRESSION: The orogastric tube is in the stomach, the tip is below the level of the film
--- NOTE | 2024-11-26 10:53 | PC.DIETICIAN ---
Nutrition prescription 1. Glucerna 1.2 at 20 ml/hr via NG tube by pump. Advance 10 ml every 8 hrs to goal rate of 60 ml/hr x 24 hrs. If no IV fluids, water flushes of 25 ml/hr (or per MD). 2. ProStat 30ml BID via NG tube (mix with water).
--- NOTE | 2024-11-26 13:25 | ESPR_ITS ---
<Statement entered by Zach Plata MD - 11/26/24 14:24> Patient was seen and evaluated at bedside this morning. Patient was a lot more somnolent this morning and overnight as well. On chart review patient did not get her lactulose for last 2 dosages and as her mental status had change and because of loose bowel movements. At this time ordered NG tube for both enteral feedings and medication administration. Still pending authorization from their insurance for transfer. Did repeat ammonia levels and increase lactulose today. Also developed an LILY therefore went up on albumin 25 g from daily to twice daily. Patient completed linezolid course for a VRE. I have reviewed the note and agree with the resident's assessment & plan with exceptions as below. I have personally reviewed labs, imaging, home meds/prior records, examined the patient, formulated and discussed management plan with my attending Zach Plata PGY2 Disclaimer: Even though this this note was dictated by speech recognition and even though it was carefully revised there may still be minor errors in food preparation supervisor due to voice recognition software. Documentation for date of: 11/26/24 Subjective Subjective Interval history: Overnight, patient given [place] 10 for abdominal pain. Patient seen and examined at bedside. Patient is very fatigued today, barely opening eyes to shoulder shake and gentle sternal rub, but is able to vocalize that she states that restroom and is alert and oriented x 3. Per mother at bedside, patient's current mentation is similar to encephalopathy on admission. Vitals and labs reviewed. WBC increased from 1.7 to 3.6, hemoglobin stable at 7.4, hematocrit 21.8, platelets increased from 29 to 31. Sodium 146, creatinine increased from 1.2 to 1.5, total bilirubin 7.6 PT creatinine 63 INR unable to be read and APTT 69.8. NG tube placed today as patient's p.o. intake recorded 0-25% meals eaten since 11/19 and plan to start Glucerna and prostat per black off worker through NG tube. Increased lactulose to 30 mg TID as patient had not gotten past two doses due to lethargy. Continue albumin, octreotide, ceftriaxone and midodrine. Completed Linezolid course. Exam Vital Signs Temp Pulse Resp BP Pulse Ox O2 Del Method O2 Flow Rate 97.1 F 88 17 127/74 97 Nasal Cannula 1 11/26/24 12:00 11/26/24 12:00 11/26/24 12:00 11/26/24 12:00 11/26/24 12:00 11/26/24 12:00 11/26/24 12:00 Narrative Exam GENERAL: AOx3, no acute distress, sleeping, very fatigued HEENT: NC/AT, mucous membranes moist, bilateral sclera icteric CARDIOVASCULAR: regular rate and rhythm, S1/S2 present, 3/6 systolic murmur heard best at left 2nd intercostal space PULMONARY: clear to auscultation bilaterally, no rales/rhonchi/wheezes ABDOMINAL: soft, mild diffuse tenderness to palpation, no rebound/guarding, bowel sounds present EXTREMITIES: no peripheral edema SKIN: warm and dry, intact, no rashes NEURO: CN II-XII grossly intact, no focal deficits, alert, following commands, + BUE tremors on extension +2/5 strength of BUE and BLE Objective Labs 11/26/24 07:11 11/26/24 07:11 Labs: Laboratory Results - last 24 hr 11/25/24 11/26/24 11/26/24 12:49 07:11 10:03 WBC 3.6 D RBC 2.12 L Hgb 7.4 L Hct 21.8 L* MCV 103 H MCH 34.9 MCHC 33.9 RDW Std Deviation 67.4 H Plt Count 31 L Neut % (Auto) 72 Lymph % (Auto) 19 [place] % (Auto) 4 Eos % (Auto) 4 Baso % (Auto) 1 Neut # (Auto) 2.5 Lymph # (Auto) 0.7 L [place] # (Auto) 0.1 Eos # (Auto) 0.2 Baso # (Auto) 0.0 Immature Gran # (Auto) 0.01 H Absolute Nucleated RBC 0.00 Immature Gran % 0 Nucleated RBC % 0 PT > 63.0 H* D INR APTT 69.8 H Sodium 145 Potassium 4.6 Chloride 104 Carbon Dioxide 26.4 Anion Gap 15 BUN 23 Creatinine 1.5 H Estim Creat Clear Calc 38.5 L eGFR 41 L BUN/Creatinine Ratio 15 Glucose 160 H Calculated Osmolality 295 Lactic Acid 3.9 H Calcium 10.7 H Corrected Calcium 10.7 H Phosphorus 3.0 Magnesium 2.2 Total Bilirubin 7.6 H AST 24 ALT < 7 L Alkaline Phosphatase 34 L Ammonia 84 H* Total Protein 7.7 Albumin 5.7 H Globulin 2.0 L Albumin/Globulin Ratio 2.9 H Misc Test Result Platelets confirmed Quality Measures Quality Measures VTE prophylaxis Assessment & Plan Assessment Current Active Medications: Generic Name Dose Route Start Last Admin Trade Name Freq PRN Reason Stop Dose Admin Cyanocobalamin 1,000 mcg 11/23/24 09:00 11/26/24 08:02 Cyanocobalamin 500 Mcg Tablet PO 12/23/24 08:59 1,000 mcg QDAY CELINA Administration Dextrose 25 ml 11/22/24 09:17 Dextrose 50%-Water Inj 50 Ml Syringe IV 12/22/24 09:16 Q15MIN PRN BG 50-70 responsive npo pt Dextrose 50 ml 11/22/24 09:17 Dextrose 50%-Water Inj 50 Ml Syringe IV 12/22/24 09:16 Q15MIN PRN BG <50 OR BG <70 & pt unresponsive Folic Acid 2.5 mg 11/23/24 09:00 11/26/24 08:03 Folic Acid 1 Mg Tablet PO 12/23/24 08:59 2.5 mg QDAY CELINA Administration Glucagon 1 mg 11/22/24 09:17 Glucagon Inj 1 Mg Vial IM Q15MIN PRN BG <70, and no IV access Octreotide Acetate 1,000 mcg/ 102 mls @ 5.1 mls/hr 11/21/24 16:23 11/26/24 00:17 Sodium Chloride IV 11/26/24 16:23 50 mcg/hr .Q20H CELINA 5.1 mls/hr Protocol Administration 50 MCG/HR Ceftriaxone Sodium/Dextrose 1 gm in 50 mls @ 100 mls/hr 11/22/24 13:30 11/26/24 08:21 Rocephin/D5w 1gm Iv Premix IV 11/29/24 13:29 100 mls/hr QDAY CELINA Administration Albumin Human 25 gm in 100 mls @ 100 mls/hr 11/26/24 09:00 11/26/24 10:35 Albuminex 25% Ivpb IV 12/26/24 08:59 100 mls/hr BID CELINA Administration Insulin Degludec 8 unit 11/18/24 14:30 11/26/24 08:03 Insulin Degludec 5 Unit/0.05 Ml (Per 5 Units) SC 12/18/24 14:29 8 unit QDAY CELINA Administration Insulin Human Lispro 0 unit 11/16/24 10:15 11/26/24 11:55 Insulin Lispro (Admelog) 1 Unit/0.01 Ml Unit SC 12/16/24 10:14 Not Given AC CELINA Protocol Lactulose 30 gm 11/26/24 14:00 Lactulose Syrup 20 Gm/30 Ml Udc PO 12/26/24 13:59 TID CELINA Protocol Midodrine 10 mg 11/17/24 14:00 11/26/24 05:14 Midodrine 5 Mg Tablet PO 12/17/24 13:59 10 mg TID CELINA Administration Ondansetron HCl 4 mg 11/20/24 10:43 11/20/24 10:52 Ondansetron Inj 2 Mg/Ml Inj 2 Ml IVP 12/20/24 10:42 4 mg Q6HR PRN Administration NAUSEA OR VOMITING Protocol Pantoprazole Sodium 40 mg 11/22/24 21:00 11/26/24 08:03 Pantoprazole 40 Mg Tablet PO 12/22/24 20:59 40 mg BID CELINA Administration Rifaximin 550 mg 11/23/24 09:00 11/26/24 08:02 Rifaximin 550 Mg Tablet PO 11/30/24 08:59 550 mg BID CELINA Administration Sodium Chloride 3 ml 11/21/24 07:03 Sodium Chloride Rt Karis 0.9% 3 Ml Nebu INH 12/21/24 07:02 PRN PRN SOLN Spironolactone 50 mg 11/16/24 10:15 11/18/24 08:50 Spironolactone 25 Mg Tablet PO 12/16/24 10:14 50 mg On Hold: 11/19/24 06:52 DAILY CELINA Administration Plan Elzbieta Knight is a 54F pmhx of significant for decompensated alcoholic cirrhosis, multiple admissions for hepatic encephalopathy, hx of prior variceal bleeding s/p banding, chronic pain, NIDDM2 presented to [facility] 11/13 for altered mental status, weakness and 2 episodes of hematemesis admitted for hepatic encephalopathy likely secondary to decompensated alcoholic cirrhosis, found to have LILY, later developing leukopenia. #Hepatic encephalopathy 2/2 #Decompensated cirrhosis, likely alcoholic #Thrombocytopenia, stable s/p 1u platelets (11/24/24) #Hyperammonemia #Hypoalbuminemia, resolved #Coagulopathy #Macrocytic anemia, chronic s/p [facility] (11/24/24) #Elevated lactic acid Patient presented with altered mental status for the past 2 days with generalized weakness with severe asterixis. Patient has been seen multiple times at [facility] for hepatic encephalopathy. On admission, ammonia level elevated at 153, BUN 30, creatinine 2.4, troponin 0.031, platelet 32 decreased to 20, PT 17.7, INR 1.7. EKG NSR rate 81 and CXR showed poor inspiratory effort. UDS only positive for opiates. Patient is currently starting transplant process with appointments. Hgb fluctuates betweeen 7-10 MCV 100-110. Although patient reports being adherent to medication, patient continues to present with decompensated cirrhosis and hepatic encephalopathy. Likely that medication outpatient is not adequately decreasing ammonia levels and may need to be increased. Noted that patient is on Rifaximin 550 mg twice daily however it has not filled since 10/01/2024. Hypoalbuminemia, thrombocytopenia, coagulopathy likely secondary to cirrhosis. Elevated lactic acid likely 2/2 cirrhosis and inability to clear. Admission MELD 3.0: 31, 68.3% 90 day survival. Child [place] Class C. [place]: 32.7, poor prognosis 11/22 MELD-Na 38, 52.6% 3 month mortality, with PT >63, INR manual calculation 8.6 11/23 MELD-Na 40, 71.3% 3 month mortality, with PT>63, INR manual calculation 8.6 11/24 MELD-Na 40, 65-66% 3 month mortality, with PT>63, INR manual calculation 8.6 11/25 MELD-Na 27, 19.6% 3 month mortality, INR 2.7 11/26 MELD-Na 40, 71.3% 3 month mortality, with PT>63, INR manual calculation 8.6 Albumin (11/14-11/18) Plan: - Albumin 25g BID (11/21- - Rifamixin 550 mg BID and increase lactulose to 30 g TID - Continue home midodrine 10 mg TID - Consider Lasix if patient becomes clinically fluid overloaded - Noted to have poor PO intake with 0-25% of meals eaten since 11/19, inserted NG tube for enteral feedings - Python Java Developer consulted, recs appreciated: Glucerna 1.2 at 20 mL/hr via NG tube by pump, advance 10 mg q8h to goal rate of 60 mL/hr x 24hrs. If no IVF, water flushes of 25 mL/hr, ProStat 30 mL BID via NG tube (mix with water) - No further platelet or blood transfusion at this time as patient is hemodynamically stable with blood pressure holding and HR wnl, consider platelet transfusion if platelet becomes hemodynamically unstable - PT ordered, recommends home with home health #UTI, VRE #LILY, prerenal #Hepatorenal syndrome #Hematuria 2/2 thrombopenia and/or VRE UTI #Hx of VRE UTI #Hyperkalemia Patient presented with creatinine of 2.4 and BUN of 30, baseline creatinine 0.9- 1. Admission UA showed 1+ blood, 18 RBC and 5 WBC. Patient has presented with history of increased creatinine on chart review and at the time was diagnosed with LILY Ddx includes prerenal LILY secondary to dehydration with nausea vomiting and lactulose, hepatorenal isohepatic encephalopathy, UTI as patient repeat UA 2+ blood, +LE and 28 WBC. Patient diagnosed with hepatorenal as blood pressure and kidney function increased with albumin and midodrine. Albumin was stopped for few days and LILY returned when albumin was restarted, creatinine decreased back to baseline. UCx grew VRE sensitive only to daptomycin, gentamicin synergy screen, and linezolid Plan: - Renal diet - PO linezolid 600 mg q12h (11/18-11/25) - ID consulted, recs appreciated: linezolid for 7 days - Hold spironolactone 50 mg due to hyperkalemia - Strict Is/Os, daily weights - Avoid nephrotoxic medications and renally dose - If creatinine continues to uptrend, consider urine electrolytes - Given hematuria, patient will need to follow-up outpatient with repeat UA #Abdominal pain #Allodynia After improvement of encephalopathy, patient reported severe abdominal pain to light touch as well as with diffuse tenderness to palpation over entire body, latter was not present on previous admissions. Per mother, patient has experienced skin sensitivity in the past. Denies weakness. Likely 2/2 cirrhosis. Suspicion of peritonitis low but cannot be excluded due to recent hematemesis and hx of variceal bleeding. Allodynia may be related to uremia vs fibromyalgia. Plan: - CTM abdominal pain - [place] 7.5 q6h prn #Hematemesis #Gastritis with recent mucusal bleeding #Grade I non-bleeding esophageal varicies at lower third of esophagus #Hx of Grade III esophageal varicies s/p banding 06/13/24 Patient's mother at bedside reports 2 episodes of hematemesis. Prior to admission about a spoonful of bright red blood and first episode a week before admission with about 2-3 spoonfuls of blood. FOBT positive Patient does have a history of grade 3 esophageal varices which were banded, however hemoglobin currently stable in the 10s, which is increased from previous admission in September where hemoglobin was 8-9 and patient has not had any further hematemesis, melena or hematochezia at this time. 11/14 EGD showed grade I esophageal varicies found in lower third of esophagus, diffuse severely erythematous mucosa with stigmata of recent bleeding found in entire stomach, mucosal oozing of blood due to hypertensive portal gastropathy, duodenum normal Octreotide drip (11/13-11/18) Plan: - Continue IV pantoprazole 40 mg BID - GI consulted, appreciate recs: 2g sodium diet - Ceftriaxone (11/22- - Octreotide ggt (11/21- #Leukopenia Patient WBC on 11/15 decreased from 3.8 to 1.8 with ANC 900. Per chart review, patient has fluctuated lowest being in the 2.0's. Likely secondary to cirrhosis and VRE UTI. Plan: - CTM CBC #Urinary retention, resolved Night of admission, patient developed urinary retention with bladder scan showing 500 cc of retained urine. DDx includes urinary tract infection, encephalopathy vs home methocarbamol s/e profile Liz (11/14-11/15), s/p bladder training Plan: - CTM urine output #Chronic pain Reports chronic pain since back injury years ago, currently has been taking [place] TID for at least a month. Pain on admission is generalized with tenderness to palpation over the entire body which has improved as mental status improves. Plan: - Pain scale regimen #NIDDM2 Last A1c 6.0 09/2024. On metformin 1g QD at home. Plan: - Degludac 8u - SSI Hospital management: Lines: PIV Diet: low sodium 2g Bowel: lactulose 20 mg TID GI prophylaxis: IV pantoprazole 40 mg BID DVT prophylaxis: SCDs, heparin held iso possible GIB Disposition: pending transfer CODE STATUS: Full code Plan of care discussed with attending Dr. Glover and PGY-2 Dr. Tee. Ekaterina Quintero DO PGY-1 Internal Medicine Attending Provider Attestation/Addendum I have discussed and was present for the essential components of the history, physical examination, diagnosis, and treatment plan with the resident. I agree with the patient's care as documented by the resident and amended herein by me. Dickson Glover DO. Although this document has been carefully reviewed, there may still be some phonetic and other typographical errors. These errors are purely grammatical due to imperfections in the software program and should not be construed in any way to compromise the substance of the patient's medical care during this visit. Patient seen and evaluated this AM. Patient much more somnolent today, not following commands, took more effort to arouse her today, vital signs stable patient afebrile in the morning, I/os 739/250 mL. 1 BM was noted overnight. Hemoglobin stable 7.4, platelets 31, sodium 145, potassium 4.6, creatinine up trended to 1.5 today and ammonia level was 84. Considering the patient has not eaten in many days and needs to continue lactulose we decided to place an NG tube today for medication and bolus feeds. Will continue the patient on Protonix, rifaximin, albumin, SBP prophylaxis with ceftriaxone, lactulose, midodrine and octreotide for hepatorenal syndrome. Of note, the patient has been accepted to [facility] for liver transplant evaluation, transfer pending under Dr. Andrews. She has been waiting many days unfortunately pending insurance authorization so hopefully this moves along quickly so we can get the patient transferred to soon as possible. Patient's mother was at bedside and was updated appropriately.
--- NOTE | 2024-11-26 13:40 | PCS.ST ---
Swallow Evaluation completed. See report for details. Functional swallow. Mild odynophagia. No appetite. Change to Full Liquids. Use NGT for meds.
--- NOTE | 2024-11-26 14:27 | PC.SS ---
rounding note: Patient pending transfer higher level of care. [facility]- pending insurance authorization
[2024-11-26] MEDS: LACTULOSE SYRUP 20 GM/30 ML UDC 30 GM PO ×2 (14:42→21:25)
[2024-11-26] MEDS: INSULIN LISPRO (AdmeLOG) 1 UNIT/0.01 ML UNIT SC (16:42)
--- NOTE | 2024-11-26 19:09 | ESPR_ITS ---
Documentation for date of: 11/26/24 Subjective Subjective Interval history: Patient somewhat more lethargic Agree with placement of NGT and increasing the lactulose Exam Vital Signs Temp Pulse Resp BP Pulse Ox O2 Del Method O2 Flow Rate 97.8 F 86 18 120/78 96 Nasal Cannula 1 11/26/24 16:00 11/26/24 16:00 11/26/24 16:00 11/26/24 16:00 11/26/24 16:00 11/26/24 16:00 11/26/24 16:00 Objective Labs 11/26/24 07:11 11/26/24 07:11 Labs: Laboratory Results - last 24 hr 11/26/24 11/26/24 07:11 10:03 WBC 3.6 D RBC 2.12 L Hgb 7.4 L Hct 21.8 L* MCV 103 H MCH 34.9 MCHC 33.9 RDW Std Deviation 67.4 H Plt Count 31 L Neut % (Auto) 72 Lymph % (Auto) 19 [place] % (Auto) 4 Eos % (Auto) 4 Baso % (Auto) 1 Neut # (Auto) 2.5 Lymph # (Auto) 0.7 L [place] # (Auto) 0.1 Eos # (Auto) 0.2 Baso # (Auto) 0.0 Immature Gran # (Auto) 0.01 H Absolute Nucleated RBC 0.00 Immature Gran % 0 Nucleated RBC % 0 PT > 63.0 H* D INR APTT 69.8 H Sodium 145 Potassium 4.6 Chloride 104 Carbon Dioxide 26.4 Anion Gap 15 BUN 23 Creatinine 1.5 H Estim Creat Clear Calc 38.5 L eGFR 41 L BUN/Creatinine Ratio 15 Glucose 160 H Calculated Osmolality 295 Calcium 10.7 H Corrected Calcium 10.7 H Phosphorus 3.0 Magnesium 2.2 Total Bilirubin 7.6 H AST 24 ALT < 7 L Alkaline Phosphatase 34 L Ammonia 84 H* Total Protein 7.7 Albumin 5.7 H Globulin 2.0 L Albumin/Globulin Ratio 2.9 H Misc Test Result Platelets confirmed Impressions Impression: Hepatic encephalopathy Poor p.o. intake Upper GI bleed continue octreotide Assessment & Plan A&P Narrative uti , mild with vre as only germ found po linezolid ok for this for total of 7d, cirrhosis, etoh related home at your discretion.if abd pain persists, then evaluate ascites will see again prn Time Spent With Patient Time: Total time spent is greater than 50% in coordination of care (as documented) at patient's floor/unit and/or counseling patient:
[2024-11-26] MEDS: ONDANSETRON INJ 2 MG/ML INJ 2 ML 4 MG IVP (21:26)
[2024-11-27] VITALS (59 sets, daily range): BP systolic 98–149; BP diastolic 78–95; PULSE 78–107; RESP 5–23; TEMP 36–36.7; O2SAT 95–100; BMI 33.7
[2024-11-27] MEDS: LACTULOSE SYRUP 20 GM/30 ML UDC 30 GM PO (05:28)
[2024-11-27] MEDS: MIDODRINE 5 MG TABLET 10 MG PO (05:30)
[2024-11-27 07:28] LABS: Basophils # (Auto) 0.0 Thou/mm3 (0.0-0.2); Basophils % (Auto) 0 % (0-2.5); Eosinophils # (Auto) 0.0 Thou/mm3 (0.0-0.5); Eosinophils % (Auto) 0 % (0-10); Immature Granulocytes Auto 0.01 Thou/mm3 (0.00-0.00); Lymphocytes # (Auto) 0.5 Thou/mm3 (1.0-4.8); Lymphocytes % (Auto) 17 % (10-50); Mean Corpuscular HGB Conc 33.8 g/dl (31.0-37.0); Mean Corpuscular Hemoglobin 34.9 pg (25.0-35.0); Mean Corpuscular Volume 103 fL (80-100); Monocytes # (Auto) 0.1 Thou/mm3 (0.0-0.8); Monocytes % (Auto) 2 % (0-12); Neutrophils # (Auto) 2.4 Thou/mm3 (1.8-7.7); Neutrophils % (Auto) 80 % (37-80); Nucleated Red Blood Cell # 0.00 Thou/mm3 (0.00-0.00); Nucleated Red Blood Cell % 0 /100 WBC (0); RDW Standard Deviation 67.1 fL (36.4-46.3); Red Blood Count 1.92 Miln/mm3 (4.00-5.20); White Blood Count 3.0 Thou/mm3 (3.6-11.0)
[2024-11-27 07:51] LABS: Hematocrit 19.8 % (36.0-46.0); Hemoglobin 6.7 g/dL (12.0-16.0); Platelet Count 21 Thou/mm3 (140-440)
[2024-11-27 08:00] LABS: Alanine Aminotransferase 9 U/L (10-49); Albumin, Serum 6.2 gm/dL (3.5-5.0); Albumin/Globulin Ratio 2.6 (1.2-2.2); Alkaline Phosphatase 41 U/L (46-116); Anion Gap 18 (7-16); Aspartate Amino Transferase 27 U/L (0-34); BUN/Creatinine Ratio 17 Ratio (12-20); Bilirubin,Total 8.0 mg/dL (0.3-1.2); Blood Urea Nitrogen 30 mg/dL (9-23); Calcium 11.3 mg/dL (8.3-10.6); Calcium (Corrected) 11.3 mg/dL (8.5-10.1); Carbon Dioxide 23.0 mMol/L (20.0-31.0); Chloride 105 mMol/L (98-107); Creatinine (Component) 1.8 mg/dL (0.6-1.3); Estimated Creatinine Clearance 32.1 mL/min (>60); Globulin 2.4 gm/dL (2.3-3.5); Glucose 246 mg/dL (74-106); Magnesium 2.5 mg/dL (1.6-2.6); Osmolality,Calculated 304 (275-295); Phosphorous 3.5 mg/dL (2.4-5.1); Potassium 4.6 mMol/L (3.4-5.1); Sodium 146 mMol/L (136-145); Total Protein 8.6 gm/dL (5.7-8.2); eGFR 33 See Note
[2024-11-27] MEDS: cefTRIAXone/D5w 1gm IV premix 1 GM/50 ML BAG IV (08:28)
[2024-11-27] MEDS: INSULIN DEGLUDEC 5 UNIT/0.05 ML (PER 5 UNITS) 8 UNIT SC (08:29)
[2024-11-27] MEDS: INSULIN LISPRO (AdmeLOG) 1 UNIT/0.01 ML UNIT SC ×3 (08:30→17:47)
[2024-11-27] MEDS: ALBUMIN HUMAN-KJDA 25% IVPB 25 GM/100 ML BTL IV (08:31)
[2024-11-27] MEDS: FOLIC ACID 1 MG TABLET 2.5 MG NG ×2 (08:32→08:37)
--- NOTE | 2024-11-27 08:58 | XR_ITS ---
Examination: Abdomen AP single view Technique: AP portable supine abdomen, single view Exam date and time: November 27, 2024, 0900 hours INDICATIONS: Onset abdominal pain and distention history FINDINGS: Significantly stool and air distended colon Orogastric tube satisfactory position No free air IMPRESSION: Significantly stool and air distended colon, consider CT scan abdomen pelvis postcontrast follow-up to exclude low colonic obstruction
[2024-11-27 09:01] LABS: Partial Thromboplastin Time 62.8 Seconds (22.0-36.0)
[2024-11-27 09:08] LABS: Prothrombin Time > 63.0 Seconds (9.0-12.2)
--- NOTE | 2024-11-27 10:57 | CHAP ---
Patient was visited by a Spiritual Care Volunteer on 11/27/2024 between 0905 and 1000 and received comfort, encouragement and/or prayer.
[2024-11-27 11:44] LABS: Slide Review Platelets confirmed
[2024-11-27] MEDS: HYDROmorphone INJ 2 MG/ML VIAL 0.5 MG IVP (11:47)
--- NOTE | 2024-11-27 12:53 | PC.CM ---
Addendum entered by Kacey Mclean RN 11/27/24 15:29: 1515 I received a call from [facility] transfer center [place]. She states they received the [facility] and they would like me to fax over the discharge summary so they can start looking for a bed. I let them know that patient has declined and Dr. Tee would like patient transfered right away. Shelli asked me to have my doctor document the decline on the discharge summary and they will have their doctor review. I spoke to Dr. Tee and gave him the information. Original Note: 1200 I reached out to [facility] transfer nurse Shelli to follow up on transfer request. She states they are still waiting on [facility] from [place]. I let her know our UR team reached out to [place] and let them know [facility] is waiting for [facility].
[2024-11-27] MEDS: OCTREOTIDE ACET INJ 1,000 MCG in SODIUM CHLORIDE 0.9% 100 ML 5.1 MCG IV (13:07)
--- NOTE | 2024-11-27 13:17 | ESPR_ITS ---
Documentation for date of: 11/27/24 Senior resident attestation: Patient evaluated and examined at the bedside, plan of care discussed with rest of the team including my attending physician, except as noted. This morning the patient has been more lethargic and somnolent, no bowel movement overnight, noted worsening renal function and decreasing urine output, elevated bilirubin, decreasing hemoglobin, INR remains uncalculable. During the day patient mentation continued to become worse, GCS 8/15, patient did have an NG tube with tube feeds at 30 cc/h, but patient visibly uncomfortable due to abdominal discomfort, tender abdomen on physical exam. X- ray Abdomen showed significantly distended colon and stool, no free air in abd, less likely concern for bowel obstruction, ordered retention lactulose enema and rectal tube. also had 1 episode of emesis, at which point feeds were stopped and NG was attached to suction, over 700 mL was aspirated. Reached out to transfer nurse about status of transfer, reports she did hear back from [facility] that insurance authorization went through, will be awaiting bed availability at this point. Also had a goals of care discussion with patient's mother Rubi, regarding expectations for care and patient's wishes given worsening GCS, likely need for intubation and ICU stay which might complicate patient's transfer process. Patient's mother understood that this hospitalization and encephalopathy has been the worst, and kidney failure and urine production has been the worst compared to past admissions, but the patient had always wanted everything to be done, as she would like to live for her kids, she has a daughter who is in undergrad student at [employer], and a son who is a campus rep. At this point we agreed to try our level best and escalating to ICU level care if needed. ICU consult was initiated, spoke to health services director team including Dr. Peralta, who evaluated the patient at the bedside, at the time of evaluation patient had GCS of 7-8/15, but she was able to protect her airway for the moment, ICU team recommended giving lactulose via NG tube for encephalopathy and bring down ammonia levels, and they will reevaluate the patient if no improvement in mental status. # Fulminant hepatic failure?underlying cirrhosis, secondary to EtOH abuse, patient has been abstinent for over 15 months, but unfortunately irreversible damage to her liver, currently complications of cirrhosis including coagulopathy, hepatic encephalopathy grade 4, MELD score 40, estimated mortality in 3 months approaching 71%., patient is pending transfer to [facility], Dr. Glover already spoke to Dr. RICKS who accepted transfer, pending bed availability. # Hepatorenal syndrome type I versus type II?patient did have LILY earlier which responded to volume expansion with IV albumin and octreotide, but at this point despite restarting octreotide no improvement in patient's urine output or renal function is noted, poor prognostic factor given hepatic failure. Continue midodrine 10 mg 3 times daily, IV albumin and octreotide infusion. Will consider hemodialysis if no improvement. # GI bleed?recent upper GI endoscopy was done by gastroenterology Dr. Culp, procedure bedside, currently likely persistent mucosal oozing, patient has persistently downtrending hemoglobin despite PRBC transfusion, hemoglobin 6.7 today, is currently on octreotide FFP and PRBC transfusion. Likely worsening by coagulopathy and thrombocytopenia. # Hepatic encephalopathy grade 4?patient has been on lactulose 30 g 3 times daily, and had been having 4-6 bowel movements daily until recently, no bowel movement overnight, currently patient is in a deep slumber, lactulose enema ordered. GCS 7-8/15, ICU team consulted regarding possible intubation for airway protection. Patient is likely candidate for hemodialysis to remove ammonia if no improvement on lactulose. # Coagulopathy?no improvement in coagulopathy despite vitamin K, INR continues to be incalculable as PT is above range. FFP transfusion ordered. #Abdominal tenderness, rule out SBP?bedside ultrasound showed no minimal ascites not safe for drainage, ordered repeat ultrasound in for paracentesis, but minimal ascitic fluid analysis for drainage. Patient did receive ceftriaxone and is currently on SBP prophylaxis dose ceftriaxone . #Vancomycin-resistant Enterococcus UTI?completed treatment with linezolid on 11/25/2024 Plan of care discussed with my attending Dr. Seymour Stephens PGY3 Subjective Subjective Interval history: No acute overnight events. Patient seen at bedside. During interview, patient vomited as meds were administered through NG tube with some fluid. Patient is very lethargic this morning, clinically worse than yesterday, and expresses significant abdominal pain. Unable to assess orientation as patient is very lethargic, unable to open eyes on instruction and sternal rub. GCS 7 Vitals and labs reviewed. SBP 120-140 on midodrine. Heart rate 90s. Saturating 96% on 1 L. WBC 3.0, hemoglobin 6.7, platelets decreased from 31 to 21, sodium 146, BUN increasing from 23 to 30. Cr increased from 1.5 to 1.8. T. bili 8.0 steadily increasing. Ammonia elevated 84. Patient's abdomen more firm than yesterday but chest is tender. KUB ordered significant stool and air distended colon. Lactulose enema. Transfused 1 PRBC and 1 FFP with another PRBC ready for transfusion. Follow-up posttransfusion H&H. Continue rifaximin lactulose albumin midodrine pantoprazole octreotide and ceftriaxone. Hold NG tube feeds due to patient unable to tolerate with vomiting. Due to severe abdominal pain, started Dilaudid 0.5 mg q6h as needed for pain. Per social worker aide, insurance authorization still pending. Exam Vital Signs Temp Pulse Resp BP Pulse Ox O2 Del Method O2 Flow Rate 97.6 F 82 18 138/89 H 96 Nasal Cannula 1 11/27/24 13:05 11/27/24 13:05 11/27/24 13:05 11/27/24 13:05 11/27/24 13:05 11/27/24 08:00 11/27/24 08:00 Narrative Exam GENERAL: Alert, orientation unable to be assessed, vomited during interview, NG tube in place draining, uncomfortable in pain, profound weakness compared to yesterday, GCS 7 HEENT: NC/AT, mucous membranes moist, bilateral sclera icteric CARDIOVASCULAR: regular rate and rhythm, S1/S2 present, 3/6 systolic murmur heard best at left 2nd intercostal space PULMONARY: clear to auscultation bilaterally, no rales/rhonchi/wheezes ABDOMINAL: diffuse tenderness to palpation, firm, tympanic to percussion, no rebound/guarding, bowel sounds hyperactive EXTREMITIES: no peripheral edema SKIN: warm and dry, intact, no rashes, significant bruising BUE NEURO: CN II-XII grossly intact, no focal deficits, alert, following commands, + 2/5 strength of BUE and BLE Objective Labs 11/28/24 06:00 11/28/24 04:47 Labs: Laboratory Results - last 24 hr 11/27/24 11/27/24 07:06 09:04 WBC 3.0 L RBC 1.92 L* Hgb 6.7 L* Hct 19.8 L* MCV 103 H MCH 34.9 MCHC 33.8 RDW Std Deviation 67.1 H Plt Count 21 L* D Neut % (Auto) 80 Lymph % (Auto) 17 [place] % (Auto) 2 Eos % (Auto) 0 Baso % (Auto) 0 Neut # (Auto) 2.4 Lymph # (Auto) 0.5 L [place] # (Auto) 0.1 Eos # (Auto) 0.0 Baso # (Auto) 0.0 Immature Gran # (Auto) 0.01 H Absolute Nucleated RBC 0.00 Immature Gran % 0 Nucleated RBC % 0 PT > 63.0 H* INR APTT 62.8 H Sodium 146 H Potassium 4.6 Chloride 105 Carbon Dioxide 23.0 Anion Gap 18 H BUN 30 H Creatinine 1.8 H Estim Creat Clear Calc 32.1 L eGFR 33 L BUN/Creatinine Ratio 17 Glucose 246 H D Calculated Osmolality 304 H Calcium 11.3 H Corrected Calcium 11.3 H Phosphorus 3.5 Magnesium 2.5 Total Bilirubin 8.0 H AST 27 ALT 9 L Alkaline Phosphatase 41 L D Total Protein 8.6 H Albumin 6.2 H D Globulin 2.4 Albumin/Globulin Ratio 2.6 H Misc Test Result Platelets confirmed Blood Type O Positive Antibody Screen NEGATIVE Crossmatch See Detail Blood Bank Wristband ID Yes Blood Bank Comment FFP Ready Quality Measures Quality Measures VTE prophylaxis Assessment & Plan Assessment Current Active Medications: Generic Name Dose Route Start Last Admin Trade Name Freq PRN Reason Stop Dose Admin Cyanocobalamin 1,000 mcg 11/27/24 09:00 11/27/24 08:29 Cyanocobalamin 500 Mcg Tablet NG 12/27/24 08:59 1,000 mcg QDAY CELINA Administration Dextrose 25 ml 11/22/24 09:17 Dextrose 50%-Water Inj 50 Ml Syringe IV 12/22/24 09:16 Q15MIN PRN BG 50-70 responsive npo pt Dextrose 50 ml 11/22/24 09:17 Dextrose 50%-Water Inj 50 Ml Syringe IV 12/22/24 09:16 Q15MIN PRN BG <50 OR BG <70 & pt unresponsive Folic Acid 2.5 mg 11/27/24 09:00 11/27/24 08:37 Folic Acid 1 Mg Tablet NG 12/27/24 08:59 2.5 mg QDAY CELINA Administration Glucagon 1 mg 11/22/24 09:17 Glucagon Inj 1 Mg Vial IM Q15MIN PRN BG <70, and no IV access Hydromorphone HCl 0.5 mg 11/27/24 11:01 11/27/24 11:47 Hydromorphone Inj 2 Mg/Ml Vial IVP 12/02/24 11:00 0.5 mg Q6HR PRN Administration SEVERE PAIN 7-10 Ceftriaxone Sodium/Dextrose 1 gm in 50 mls @ 100 mls/hr 11/22/24 13:30 11/27/24 08:28 Rocephin/D5w 1gm Iv Premix IV 11/29/24 13:29 100 mls/hr QDAY CELINA Administration Albumin Human 25 gm in 100 mls @ 100 mls/hr 11/26/24 09:00 11/27/24 08:31 Albuminex 25% Ivpb IV 12/26/24 08:59 100 mls/hr BID CELINA Administration Octreotide Acetate 1,000 mcg/ 102 mls @ 5.1 mls/hr 11/26/24 16:24 11/27/24 13:07 Sodium Chloride IV 12/01/24 16:23 50 mcg/hr .Q20H CELINA 5.1 mls/hr Protocol Administration 50 MCG/HR Insulin Degludec 8 unit 11/18/24 14:30 11/27/24 08:29 Insulin Degludec 5 Unit/0.05 Ml (Per 5 Units) SC 12/18/24 14:29 8 unit QDAY CELINA Administration Insulin Human Lispro 0 unit 11/16/24 10:15 11/27/24 11:46 Insulin Lispro (Admelog) 1 Unit/0.01 Ml Unit SC 12/16/24 10:14 2 unit AC CELINA Administration Protocol Lactulose 30 gm 11/27/24 08:24 Lactulose Syrup 20 Gm/30 Ml Udc NG 12/26/24 13:59 TID CELINA Protocol Midodrine 10 mg 11/27/24 08:24 Midodrine 5 Mg Tablet NG 12/17/24 13:59 TID CELINA Ondansetron HCl 4 mg 11/20/24 10:43 11/26/24 21:26 Ondansetron Inj 2 Mg/Ml Inj 2 Ml IVP 12/20/24 10:42 4 mg Q6HR PRN Administration NAUSEA OR VOMITING Protocol Pantoprazole Sodium 40 mg 11/27/24 09:00 11/27/24 08:45 Pantoprazole Inj 40 Mg Vial IV 12/27/24 08:59 40 mg BID CELINA Administration Rifaximin 550 mg 11/27/24 09:00 11/27/24 08:45 Rifaximin 550 Mg Tablet NG 12/04/24 08:59 550 mg BID CELINA Administration Sodium Chloride 3 ml 11/21/24 07:03 Sodium Chloride Rt Karis 0.9% 3 Ml Nebu INH 12/21/24 07:02 PRN PRN SOLN Spironolactone 50 mg 11/16/24 10:15 11/18/24 08:50 Spironolactone 25 Mg Tablet PO 12/16/24 10:14 50 mg On Hold: 11/19/24 06:52 DAILY CELINA Administration Plan Elzbieta Knight is a 54F pmhx of significant for decompensated alcoholic cirrhosis, multiple admissions for hepatic encephalopathy, hx of prior variceal bleeding s/p banding, chronic pain, NIDDM2 presented to [facility] 11/13 for altered mental status, weakness and 2 episodes of hematemesis admitted for hepatic encephalopathy likely secondary to decompensated alcoholic cirrhosis, found to have LILY, later developing leukopenia. #Hepatic encephalopathy 2/2 #Decompensated cirrhosis, likely alcoholic #Thrombocytopenia, stable s/p 1u platelets (11/24) and 1u FFP (11/27) #Hyperammonemia #Hypoalbuminemia, resolved #Coagulopathy #Macrocytic anemia, chronic s/p 2pRBC (11/24, 11/27) #Elevated lactic acid Patient presented with altered mental status for the past 2 days with generalized weakness with severe asterixis. Patient has been seen multiple times at [facility] for hepatic encephalopathy. On admission, ammonia level elevated at 153, BUN 30, creatinine 2.4, troponin 0.031, platelet 32 decreased to 20, PT 17.7, INR 1.7. EKG NSR rate 81 and CXR showed poor inspiratory effort. UDS only positive for opiates. Patient is currently starting transplant process with appointments. Hgb fluctuates betweeen 7-10 MCV 100-110. Although patient reports being adherent to medication, patient continues to present with decompensated cirrhosis and hepatic encephalopathy. Likely that medication outpatient is not adequately decreasing ammonia levels and may need to be increased. Noted that patient is on Rifaximin 550 mg twice daily however it has not filled since 10/01/2024. Hypoalbuminemia, thrombocytopenia, coagulopathy likely secondary to cirrhosis. Elevated lactic acid likely 2/2 cirrhosis and inability to clear. 11/27 KUB significantly stool and air distended colon Admission MELD 31, 68.3% 90 day survival. Child [place] Class C. [place]re[place]: 32.7, poor prognosis 11/22 MELD-Na 38, 52.6% 3 month mortality, with PT >63, INR manual calculation 8.6 11/23 MELD-Na 40, 71.3% 3 month mortality, with PT>63, INR manual calculation 8.6 11/24 MELD-Na 40, 65-66% 3 month mortality, with PT>63, INR manual calculation 8.6 11/25 MELD-Na 27, 19.6% 3 month mortality, INR 2.7 11/26 MELD-Na 40, 71.3% 3 month mortality, with PT>63, INR manual calculation 8.6 Noted to have poor PO intake with 0-25% of meals eaten since 11/19, inserted NG tube for enteral feedings on 11/26 11/27 MELD-Na 40, 71.3% 3 month mortality, with PT>63, INR manual calculation 8.6 Albumin (11/14-11/18) Plan: - Albumin 25g BID (11/21- - Rifamixin 550 mg BID, lactulose to 30 g TID, midodrine 10 mg TID - Transfusing 1 prbc, f/u post transfusion H&H - Transfusing FFP - Dilaudid 0.5 mg q6h prn for pain - Barrel Planer consulted, recs appreciated: Glucerna 1.2 at 20 mL/hr via NG tube by pump, advance 10 mg q8h to goal rate of 60 mL/hr x 24hrs. If no IVF, water flushes of 25 mL/hr, ProStat 30 mL BID via NG tube (mix with water), hold as patient is not tolerating feeds and vomited this moring - No further platelet or blood transfusion at this time as patient is hemodynamically stable with blood pressure holding and HR wnl, consider platelet transfusion if platelet becomes hemodynamically unstable - PT ordered, recommends home with home health #UTI, VRE #LILY, prerenal #Hepatorenal syndrome #Hematuria 2/2 thrombopenia and/or VRE UTI #Hx of VRE UTI #Hyperkalemia Patient presented with creatinine of 2.4 and BUN of 30, baseline creatinine 0.9- 1. Admission UA showed 1+ blood, 18 RBC and 5 WBC. Patient has presented with history of increased creatinine on chart review and at the time was diagnosed with LILY Ddx includes prerenal LILY secondary to dehydration with nausea vomiting and lactulose, hepatorenal isohepatic encephalopathy, UTI as patient repeat UA 2+ blood, +LE and 28 WBC. Patient diagnosed with hepatorenal as blood pressure and kidney function increased with albumin and midodrine. Albumin was stopped for few days and LILY returned when albumin was restarted, creatinine decreased back to baseline. UCx grew VRE sensitive only to daptomycin, gentamicin synergy screen, and linezolid Plan: - Renal diet - PO linezolid 600 mg q12h (11/18-11/25) - ID consulted, recs appreciated: linezolid for 7 days - Hold spironolactone 50 mg due to hyperkalemia - Strict Is/Os, daily weights - Avoid nephrotoxic medications and renally dose #Abdominal pain #Allodynia After improvement of encephalopathy, patient reported severe abdominal pain to light touch as well as with diffuse tenderness to palpation over entire body, latter was not present on previous admissions. Per mother, patient has experienced skin sensitivity in the past. Denies weakness. Likely 2/2 cirrhosis. Suspicion of peritonitis low but cannot be excluded due to recent hematemesis and hx of variceal bleeding. Allodynia may be related to uremia vs fibromyalgia. Plan: - CTM abdominal pain - [place] 7.5 q6h prn #Hematemesis #Gastritis with recent mucusal bleeding #Grade I non-bleeding esophageal varicies at lower third of esophagus #Hx of Grade III esophageal varicies s/p banding 06/13/24 Patient's mother at bedside reports 2 episodes of hematemesis. Prior to admission about a spoonful of bright red blood and first episode a week before admission with about 2-3 spoonfuls of blood. FOBT positive Patient does have a history of grade 3 esophageal varices which were banded, however hemoglobin currently stable in the 10s, which is increased from previous admission in September where hemoglobin was 8-9 and patient has not had any further hematemesis, melena or hematochezia at this time. 11/14 EGD showed grade I esophageal varicies found in lower third of esophagus, diffuse severely erythematous mucosa with stigmata of recent bleeding found in entire stomach, mucosal oozing of blood due to hypertensive portal gastropathy, duodenum normal Octreotide drip (11/13-11/18) Plan: - Continue IV pantoprazole 40 mg BID - GI consulted, appreciate recs: 2g sodium diet - Ceftriaxone (11/22- - Octreotide ggt (11/21- #Leukopenia Patient WBC on 11/15 decreased from 3.8 to 1.8 with ANC 900. Per chart review, patient has fluctuated lowest being in the 2.0's. Likely secondary to cirrhosis and VRE UTI. Plan: - CTM CBC #Urinary retention, resolved Night of admission, patient developed urinary retention with bladder scan showing 500 cc of retained urine. DDx includes urinary tract infection, encephalopathy vs home methocarbamol s/e profile Liz (11/14-11/15), s/p bladder training Plan: - CTM urine output #Chronic pain Reports chronic pain since back injury years ago, currently has been taking [place] TID for at least a month. Pain on admission is generalized with tenderness to palpation over the entire body which has improved as mental status improves. Plan: - Pain scale regimen #NIDDM2 Last A1c 6.0 09/2024. On metformin 1g QD at home. Plan: - Degludac 8u - SSI Hospital management: Lines: PIV Diet: low sodium 2g Bowel: lactulose 20 mg TID GI prophylaxis: IV pantoprazole 40 mg BID DVT prophylaxis: SCDs, heparin held iso possible GIB Disposition: pending transfer CODE STATUS: Full code Plan of care discussed with attending Dr. Glover and PGY-2 Dr. Tee. Ekaterina Quintero, PGY-1 Internal Medicine Attending Provider Attestation/Addendum I have examined the patient, reviewed labs and imaging findings, discussed the case with the resident(s), and reviewed entered orders. I agree with the plan of care as outlined in this note, with these additional summaries/recommendations: Patient seen at bedside. She is very somnolent this morning. GCS currently 8 at bedside. Patient continues to be encephalopathic. Patient originally showed improvement throughout hospitalization and now appears worsened. NG tube in place. Continue rifaximin and we will order lactulose enema today and continue lactulose via NG. Patient has underlying decompensated cirrhosis secondary to previous alcohol use. She has severe synthetic liver dysfunction with coagulopathy, anemia, hypoalbuminemia, and thrombocytopenia. She is status post multiple EGDs on prior admission and once this admission showing esophageal varices. INR incalculable today and hemoglobin less than 7. 1 unit FFP and PRBCs ordered. Follow-up posttransfusion blood levels. Continue octreotide gtt. Gastroenterology following, recommendations appreciated. Patient is pending transfer to [facility] with Dr. Andrews pending insurance authorization for liver transplant. Patient has underlying hepatorenal syndrome and nephrology following. Continue midodrine and albumin. Hypercalcemia present most likely secondary to poor oral intake. We will continue to monitor patient's mental status closely and if worsens we will consult intensive care unit. Continue insulin sliding scale with Accu-Cheks for diabetes mellitus type 2. Please see residents note for additional details and management. Dr. Seymour MD
[2024-11-27 14:59] LABS: Base Excess -4 (-3-3); HCO3 22 mEq/L (20-26); Inspired O2, VO2 Liters 1 L/min; O2 Saturation 98 % (91-98); PCO2 44 mmHg (32.0-48.0); PO2 91 mmHg (83-108); pH, Arterial 7.31 (7.35-7.45)
[2024-11-27 15:00] LABS: Allen Test Not Performed; Puncture Site Left Radial
[2024-11-27] MEDS: LACTULOSE SYRUP 10 GM/15 ML 200 GM PR (15:02)
[2024-11-27] MEDS: LACTULOSE SYRUP 20 GM/30 ML UDC 30 GM NG (16:26)
--- NOTE | 2024-11-27 16:58 | ESCONSULT_ITS ---
HPI Data of Consult Consult date: 11/27/24 Requesting Physician: Mateo Glover DO Admitting Provider: Stephen Ahuja MD Attending Provider: Jon Hensley MD Primary Care Provider: Physician No Primary/Family Consult Narrative Reason for consult: Inability to protect airway History of present illness: 54 y/o F with PMHx of decompensated alcoholic cirrhosis (on transplant list), multiple admissions for hepatic encephalopathy, prior variceal bleeding s/p banding, chronic pain, T2DM presents from home with altered mental status, generalized pain, weakness, poor oral intake, and 2 episodes of hematemesis in the last week. CXR was ordered and she was admitted for suspected hepatic encephalopathy recurrence. Per patient she has been taking prescribed lactulose. For week prior to admission patient had experienced loss of appetite, had very poor oral intake, and had 2 episodes of hematemesis. During this period her mentation deteriorated and she has become increasingly confused. She also developed generalized pain, n/v during this time as well as diarrhea. The patient and mother otherwise denied dysuria, frequency, constipation, fever, chills, SOB, palpitations. In the ED, she was afebrile and hemodynamically stable, cachexic, with diffuse tenderness, severe asterixis, lethargy/fatigue, generalized weakness and generalized pain. A&Ox2 oriented to name and place. UA showed blood. Labs significant for LILY (Cr 2.4 from baseline ~1.0), anemia (Hgb 10.6 though she trends 8s-10s), hyperammonemia (153), BUN 30, Plt 68.5, MCV 104, PT 17.7, INR 1.7, PTT 35.5 high normal, Tbili 6.5. Patient treated on the floors for 2 weeks. During this time, patient received lactulose, rifaximin, PRBC as needed, FFP and vitamin K. EGD on 11/14/24 showed esophageal varices and mucosal oozing, treated with octreotide drip and protonix. Patient receiving Rocephin for SBP prophylaxis. Found to have VRE UTI, treated with linezolid, treatment completed. Patient eventually became more somnolent, NG tube inserted for enteral tube feeds. At this time, patient is pending transfer to [facility] for liver transplant evaluation. Patient mentation worsened, with GCS 7, unable to protect airway. ICU was consulted to evaluate need for intubation. Decision was made to intubate patient due to inability to protect airway. Accepted care of patient. cc:: cc: Mateo Glover DO Review of Systems Review of Systems Systems Reviewed: All systems reviewed, normal except as documented Exam Vital Signs Temp Pulse Resp BP Pulse Ox O2 Del Method O2 Flow Rate 97.2 F 84 16 133/79 H 98 Nasal Cannula 1 11/27/24 14:56 11/27/24 14:56 11/27/24 14:56 11/27/24 14:56 11/27/24 14:56 11/27/24 12:00 11/27/24 12:00 Narrative Exam GENERAL: NG tube in place draining. Grimaces to pain, does not open eyes. HEENT: NC/AT, mucous membranes moist, pupils equal and reactive, bilateral sclera icteric. CARDIOVASCULAR: regular rate and rhythm, S1/S2 present PULMONARY: no rales/rhonchi/wheezes. Diminished lung sounds left base. ABDOMINAL: diffuse tenderness to palpation, firm no rebound/guarding EXTREMITIES: Bilateral UE edema. Multiple fluid filled bullae L forearm. SKIN: warm and dry, intact, no rashes, significant bruising BUE NEURO: GCS 7, withdraws from pain. Results Labs 12/02/24 04:30 12/02/24 04:30 Labs: Short CBC 11/27/24 Range/Units 07:06 WBC 3.0 L (3.6-11.0) Thou/mm3 Hgb 6.7 L* (12.0-16.0) g/dL Hct 19.8 L* (36.0-46.0) % Plt Count 21 L* D (140-440) Thou/mm3 BMP 11/27/24 07:06 Sodium 146 H Potassium 4.6 Chloride 105 Carbon Dioxide 23.0 BUN 30 H Creatinine 1.8 H Glucose 246 H D Calcium 11.3 H Liver Function 11/27/24 Range/Units 07:06 Total Bilirubin 8.0 H (0.3-1.2) mg/dL AST 27 (0-34) U/L ALT 9 L (10-49) U/L Alkaline Phosphatase 41 L D (46-116) U/L Albumin 6.2 H D (3.5-5.0) gm/dL ABG Interpretation ABG results: 11/27/24 14:52 ABG pH 7.31 L ABG pCO2 44 ABG pO2 91 ABG HCO3 22 ABG O2 Saturation 98 ABG Base Excess -4 L Quality Measures Quality Measures VTE prophylaxis Medications Home Medications and Allergies Home Medications ?Medication ?Instructions ?Recorded ?Confirmed ?Type spironolactone 50 mg tablet 50 mg PO DAILY 10/11/24 History Held on 11/21/24. Instructions: Resume on 11/28/24. Hold until follow up with nephrology/PCP metformin 1,000 mg tablet 1,000 mg PO QDAY 11/14/24 History Held on 11/21/24. Instructions: Resume on 11/28/24. hold until follow up with PCP midodrine 10 mg tablet 10 mg PO Q8H 11/14/24 History Allergies Allergy/AdvReac Type Severity Reaction Status Date / Time latex Allergy Severe Hives Verified 10/22/24 09:29 Visit Medications Cyanocobalamin (Cyanocobalamin 500 Mcg Tablet) 1,000 mcg NG QDAY [facility] Stop: 12/27/24 08:59 Last Admin: 11/27/24 08:29 Dose: 1,000 mcg Dextrose (Dextrose 50%-Water Inj 50 Ml Syringe) 25 ml IV Q15MIN PRN PRN Reason: BG 50-70 responsive npo pt Stop: 12/22/24 09:16 Dextrose (Dextrose 50%-Water Inj 50 Ml Syringe) 50 ml IV Q15MIN PRN PRN Reason: BG <50 OR BG <70 & pt unresponsive Stop: 12/22/24 09:16 Folic Acid (Folic Acid 1 Mg Tablet) 2.5 mg NG QDAY [facility] Stop: 12/27/24 08:59 Last Admin: 11/27/24 08:37 Dose: 2.5 mg Glucagon (Glucagon Inj 1 Mg Vial) 1 mg IM Q15MIN PRN PRN Reason: BG <70, and no IV access Hydromorphone HCl (Hydromorphone Inj 2 Mg/Ml Vial) 0.25 mg IVP Q6HR PRN PRN Reason: SEVERE PAIN 7-10 Stop: 12/02/24 11:00 Ceftriaxone Sodium/Dextrose (Rocephin/D5w 1gm Iv Premix) 1 gm in 50 mls @ 100 mls/hr IV QDAY [facility] Stop: 11/29/24 13:29 Last Admin: 11/27/24 08:28 Dose: 100 mls/hr Albumin Human (Albuminex 25% Ivpb) 25 gm in 100 mls @ 100 mls/hr IV BID [facility] Stop: 12/26/24 08:59 Last Admin: 11/27/24 08:31 Dose: 100 mls/hr Octreotide Acetate 1,000 mcg/ (Sodium Chloride) 102 mls @ 5.1 mls/hr IV .Q20H [facility]; Protocol Stop: 12/01/24 16:23 Last Admin: 11/27/24 13:07 Dose: 50 mcg/hr, 5.1 mls/hr Insulin Degludec (Insulin Degludec 5 Unit/0.05 Ml (Per 5 Units)) 8 unit SC QDAY [facility] Stop: 12/18/24 14:29 Last Admin: 11/27/24 08:29 Dose: 8 unit Insulin Human Lispro (Insulin Lispro (Admelog) 1 Unit/0.01 Ml Unit) 0 unit SC AC [facility]; Protocol Stop: 12/16/24 10:14 Last Admin: 11/27/24 11:46 Dose: 2 unit Lactulose (Lactulose Syrup 20 Gm/30 Ml Udc) 30 gm NG TID [facility]; Protocol Stop: 12/26/24 13:59 Last Admin: 11/27/24 15:26 Dose: Not Given Midodrine (Midodrine 5 Mg Tablet) 10 mg NG TID [facility] Stop: 12/17/24 13:59 Last Admin: 11/27/24 15:27 Dose: Not Given Ondansetron HCl (Ondansetron Inj 2 Mg/Ml Inj 2 Ml) 4 mg IVP Q6HR PRN; Protocol PRN Reason: NAUSEA OR VOMITING Stop: 12/20/24 10:42 Last Admin: 11/26/24 21:26 Dose: 4 mg Pantoprazole Sodium (Pantoprazole Inj 40 Mg Vial) 40 mg IV BID [facility] Stop: 12/27/24 08:59 Last Admin: 11/27/24 08:45 Dose: 40 mg Rifaximin (Rifaximin 550 Mg Tablet) 550 mg NG BID [facility] Stop: 12/04/24 08:59 Last Admin: 11/27/24 08:45 Dose: 550 mg Sodium Chloride (Sodium Chloride Rt Karis 0.9% 3 Ml Nebu) 3 ml INH PRN PRN PRN Reason: SOLN Stop: 12/21/24 07:02 Spironolactone (Spironolactone 25 Mg Tablet) 50 mg PO DAILY [facility] On Hold: 11/19/24 06:52 Stop: 12/16/24 10:14 Last Admin: 11/18/24 08:50 Dose: 50 mg Discontinued Medications Acetaminophen (Acetaminophen 325 Mg Tablet) 650 mg PO Q6H PRN PRN Reason: PAIN 1-3 OR FEVER > 101 Stop: 12/13/24 15:29 Hydrocodone Bitart/Acetaminophen (Hydrocodone/Apap 5/325 Tablet) 1 tab PO Q4HR PRN PRN Reason: Pain Scale 4-10 Stop: 11/18/24 15:29 Last Admin: 11/15/24 09:49 Dose: 1 tab Hydrocodone Bitart/Acetaminophen (Hydrocodone/Apap 7.5/325 Tablet) 1 tab PO Q6HR PRN PRN Reason: Pain 4-10 Stop: 11/20/24 10:18 Last Admin: 11/20/24 06:05 Dose: 1 tab Hydrocodone Bitart/Acetaminophen (Hydrocodone/Apap 5/325 Tablet) 1 tab PO Q6HR PRN PRN Reason: PAIN SCALE 4-10(Mod-Sev Stop: 11/26/24 09:49 Last Admin: 11/25/24 02:33 Dose: 1 tab Hydrocodone Bitart/Acetaminophen (Hydrocodone/Apap 5/325 Tablet) 1 tab PO X1 ONE Stop: 11/25/24 17:58 Last Admin: 11/25/24 18:16 Dose: 1 tab Hydrocodone Bitart/Acetaminophen (Hydrocodone/Apap 10/325 Tab) 1 tab PO X1 ONE Stop: 11/26/24 00:13 Last Admin: 11/26/24 00:18 Dose: 1 tab Albuterol (Albuterol Rt 2.5 Mg/0.5 Ml Nebu) 2.5 mg INH X1 ONE Stop: 11/20/24 20:59 Last Admin: 11/20/24 21:20 Dose: 2.5 mg Albuterol (Albuterol Rt 2.5 Mg/3 Ml Nebu) 10 mg INH X1 ONE Stop: 11/21/24 06:48 Last Admin: 11/22/24 01:54 Dose: Not Given Albuterol (Albuterol Rt 2.5 Mg/0.5 Ml Nebu) 10 mg INH X1 ONE Stop: 11/21/24 07:04 Last Admin: 11/21/24 07:43 Dose: 10 mg Benzocaine (Benzocaine 20% (Hurricaine) Rowdy 1 Dose) 0 dose TOP X1 ONE Stop: 11/15/24 18:25 Cyanocobalamin (Cyanocobalamin 500 Mcg Tablet) 1,000 mcg PO DAILY [facility] Stop: 12/14/24 08:59 Last Admin: 11/22/24 08:38 Dose: 1,000 mcg Cyanocobalamin (Cyanocobalamin 500 Mcg Tablet) 1,000 mcg PO QDAY [facility] Stop: 12/23/24 08:59 Last Admin: 11/26/24 08:02 Dose: 1,000 mcg Cyanocobalamin (Cyanocobalamin 500 Mcg Tablet) 1,000 mcg NG QDAY [facility] Stop: 12/23/24 08:59 Dextrose (Dextrose 50%-Water Inj 50 Ml Syringe) 25 ml IV Q15MIN PRN PRN Reason: BG 50-70 responsive npo pt Stop: 12/13/24 17:20 Dextrose (Dextrose 50%-Water Inj 50 Ml Syringe) 50 ml IV Q15MIN PRN PRN Reason: BG <50 OR BG <70 & pt unresponsive Stop: 12/13/24 17:20 Dextrose (Dextrose 50%-Water Inj 50 Ml Syringe) 50 ml IVP X1 ONE Stop: 11/20/24 08:03 Dextrose (Dextrose 50%-Water Inj 50 Ml Syringe) 25 ml IVP X1 ONE Stop: 11/20/24 08:07 Last Admin: 11/20/24 08:21 Dose: 25 ml Dextrose (Dextrose 50%-Water Inj 50 Ml Syringe) 50 ml IVP X1 ONE Stop: 11/20/24 20:59 Last Admin: 11/20/24 21:25 Dose: 50 ml Dextrose (Dextrose 50%-Water Inj 50 Ml Syringe) 25 ml IVP X1 ONE Stop: 11/21/24 06:48 Last Admin: 11/21/24 07:17 Dose: 25 ml Diphenhydramine HCl (Diphenhydramine Inj 50 Mg/Ml Vial) 25 mg IVP [id number] PRN PRN Reason: MODERATE SEDATION Stop: 11/15/24 20:24 Fentanyl Citrate (Fentanyl Cit Inj 50 Mcg/Ml Amp 2ml) 50 mcg IVP Q2M PRN PRN Reason: MODERATE SEDATION Stop: 11/15/24 20:24 Folic Acid (Folic Acid 1 Mg Tablet) 2.5 mg PO DAILY [facility] Stop: 12/14/24 08:59 Last Admin: 11/22/24 08:37 Dose: 2.5 mg Folic Acid (Folic Acid 1 Mg Tablet) 2.5 mg PO QDAY [facility] Stop: 12/23/24 08:59 Last Admin: 11/26/24 08:03 Dose: 2.5 mg Folic Acid (Folic Acid 1 Mg Tablet) 2.5 mg NG QDAY [facility] Stop: 12/23/24 08:59 Last Admin: 11/27/24 08:32 Dose: 2.5 mg Glucagon (Glucagon Inj 1 Mg Vial) 1 mg IM Q15MIN PRN PRN Reason: BG <70, and no IV access Hydromorphone HCl (Hydromorphone Inj 2 Mg/Ml Vial) 0.25 mg IVP X1 ONE Stop: 11/14/24 01:31 Last Admin: 11/14/24 01:36 Dose: 0.25 mg Hydromorphone HCl (Hydromorphone Inj 2 Mg/Ml Vial) 0.5 mg IVP Q6HR PRN PRN Reason: SEVERE PAIN 7-10 Stop: 12/02/24 11:00 Last Admin: 11/27/24 11:47 Dose: 0.5 mg Lactated Ringer's (Lactated Ringers) 1,000 mls @ 75 mls/hr IV .[id number] [facility] Stop: 12/13/24 14:59 Last Admin: 11/14/24 05:32 Dose: 75 mls/hr Octreotide Acetate 1,000 mcg/ (Sodium Chloride) 102 mls @ 5.1 mls/hr IV .Q20H [facility]; Protocol Stop: 11/18/24 15:02 Last Admin: 11/17/24 23:56 Dose: 50 mcg/hr, 5.1 mls/hr Ceftriaxone Sodium/Dextrose (Rocephin/D5w 1gm Iv Premix) 1 gm in 50 mls @ 100 mls/hr IV QDAY [facility] Stop: 11/20/24 15:09 Last Admin: 11/14/24 09:05 Dose: 100 mls/hr Octreotide Acetate 1,000 mcg/ (Sodium Chloride) 102 mls @ 5.1 mls/hr IV .Q20H [facility]; Protocol Stop: 11/14/24 11:14 Last Admin: 11/13/24 16:20 Dose: 50 mcg/hr, 5.1 mls/hr Albumin Human (Albuminex 25% Ivpb) 50 gm in 200 mls @ 200 mls/hr IV BID [facility] Stop: 11/18/24 21:59 Albumin Human (Albuminex 25% Ivpb) 25 gm in 100 mls @ 100 mls/hr IV BID [facility] Stop: 12/14/24 08:59 Albumin Human (Albuminex 25% Ivpb) 50 gm in 200 mls @ 100 mls/hr IV BID [facility] Stop: 11/18/24 22:59 Last Admin: 11/18/24 21:28 Dose: 100 mls/hr Magnesium Sulfate (Magnesium Sulfate Ivpb) 2 gm in 50 mls @ 25 mls/hr IV X1 ONE Stop: 11/15/24 09:33 Last Admin: 11/15/24 09:50 Dose: 25 mls/hr Ceftriaxone Sodium/Dextrose (Rocephin/D5w 1gm Iv Premix) 1 gm in 50 mls @ 100 mls/hr IV QDAY [facility] Stop: 11/22/24 10:09 Last Admin: 11/18/24 08:49 Dose: 100 mls/hr Sodium Chloride (Ns) 1,000 mls @ 80 mls/hr IV .[id number] [facility] Stop: 11/16/24 00:23 Last Admin: 11/15/24 11:59 Dose: 80 mls/hr Albumin Human (Albuminex 25% Ivpb) 25 gm in 100 mls @ 100 mls/hr IV QDAY [facility] Stop: 12/21/24 09:50 Last Admin: 11/22/24 01:54 Dose: Not Given Albumin Human (Albuminex 25% Ivpb) 25 gm in 100 mls @ 100 mls/hr IV QDAY [facility] Stop: 12/21/24 09:50 Last Admin: 11/22/24 01:54 Dose: Not Given Albumin Human (Albuminex 25% Ivpb) 25 gm in 100 mls @ 100 mls/hr IV BID [facility]; Protocol Stop: 11/25/24 23:00 Last Admin: 11/25/24 20:25 Dose: 100 mls/hr Albumin Human (Albuminex 25% Ivpb) 25 gm in 100 mls @ 100 mls/hr IV BID@1000,2200 [facility]; Protocol Stop: 11/25/24 23:00 Last Admin: 11/25/24 21:34 Dose: 100 mls/hr Octreotide Acetate 1,000 mcg/ (Sodium Chloride) 102 mls @ 5.1 mls/hr IV .Q20H [facility]; Protocol Stop: 11/26/24 16:23 Last Admin: 11/26/24 17:08 Dose: Not Given Albumin Human (Albuminex 25% Ivpb) 25 gm in 100 mls @ 100 mls/hr IV BID [facility] Stop: 12/26/24 08:59 Albumin Human (Albuminex 25% Ivpb) 25 gm in 100 mls @ 100 mls/hr IV QDAY [facility] Stop: 12/26/24 10:29 Insulin Human Lispro (Insulin Lispro (Admelog) 1 Unit/0.01 Ml Unit) 0 unit SC Q6HR [facility]; Protocol Stop: 12/13/24 17:59 Last Admin: 11/16/24 05:28 Dose: 2 unit Insulin Human Regular (Insulin Hum Regular 1 Unit/0.01 Ml (Per Unit)) 5 unit IV X1 ONE Stop: 11/20/24 08:03 Last Admin: 11/20/24 08:26 Dose: 5 unit Insulin Human Regular (Insulin Hum Regular 1 Unit/0.01 Ml (Per Unit)) 5 unit IV X1 ONE Stop: 11/20/24 20:59 Last Admin: 11/20/24 21:26 Dose: 5 unit Insulin Human Regular (Insulin Hum Regular 1 Unit/0.01 Ml (Per Unit)) 5 unit IV X1 ONE Stop: 11/21/24 06:47 Last Admin: 11/21/24 07:22 Dose: 5 unit Lactulose (Lactulose Syrup 20 Gm/30 Ml Udc) 20 gm PO X1 ONE; Protocol Stop: 11/13/24 13:02 Last Admin: 11/13/24 13:15 Dose: 20 gm Lactulose (Lactulose Syrup 20 Gm/30 Ml Udc) 30 gm PO TID [facility]; Protocol Stop: 12/13/24 21:59 Lactulose (Lactulose Syrup 10 Gm/15 Ml) 200 gm HI TID [facility]; Protocol Stop: 12/13/24 21:59 Last Admin: 11/14/24 05:33 Dose: 200 gm Lactulose (Lactulose Syrup 20 Gm/30 Ml Udc) 20 gm PO QID [facility]; Protocol Stop: 12/14/24 11:59 Last Admin: 11/17/24 05:16 Dose: 20 gm Lactulose (Lactulose Syrup 20 Gm/30 Ml Udc) 20 gm PO BID [facility]; Protocol Stop: 12/17/24 20:59 Last Admin: 11/19/24 08:11 Dose: Not Given Lactulose (Lactulose Syrup 20 Gm/30 Ml Udc) 20 gm PO TID [facility]; Protocol Stop: 12/19/24 13:59 Last Admin: 11/26/24 05:14 Dose: 20 gm Lactulose (Lactulose Syrup 20 Gm/30 Ml Udc) 30 gm PO TID [facility]; Protocol Stop: 12/26/24 13:59 Last Admin: 11/27/24 05:28 Dose: 30 gm Lactulose (Lactulose Syrup 10 Gm/15 Ml) 200 gm HI X1 ONE; Protocol Stop: 11/27/24 14:00 Last Admin: 11/27/24 15:02 Dose: 200 gm Lactulose (Lactulose Syrup 20 Gm/30 Ml Udc) 30 gm NG X1 ONE; Protocol Stop: 11/27/24 16:16 Last Admin: 11/27/24 16:26 Dose: 30 gm Lidocaine (Lidocaine 5% 1 Patch) 1 patch TOP X1 ONE Stop: 11/14/24 06:22 Last Admin: 11/14/24 06:27 Dose: 1 patch Lidocaine (Lidocaine 5% 1 Patch) 1 patch TOP X1 ONE Stop: 11/15/24 08:35 Last Admin: 11/15/24 09:49 Dose: 1 patch Linezolid (Linezolid 600 Mg Tablet) 600 mg PO BID [facility] Stop: 11/25/24 11:14 Last Admin: 11/25/24 08:17 Dose: 600 mg Midazolam HCl (Midazolam Inj 1 Mg/Ml Vial 2 Ml) 2 mg IVP Q2M PRN PRN Reason: Moderate Sedation Stop: 11/15/24 20:24 Midodrine (Midodrine 5 Mg Tablet) 5 mg PO TID [facility] Stop: 12/14/24 08:29 Last Admin: 11/14/24 09:03 Dose: 5 mg Midodrine (Midodrine 5 Mg Tablet) 5 mg PO TID [facility] Stop: 12/14/24 08:29 Last Admin: 11/17/24 05:16 Dose: 5 mg Midodrine (Midodrine 5 Mg Tablet) 10 mg PO TID [facility] Stop: 12/17/24 13:59 Last Admin: 11/27/24 05:30 Dose: 10 mg Pantoprazole Sodium (Pantoprazole 40 Mg Tablet) 40 mg PO BID [facility] Stop: 12/13/24 20:59 Pantoprazole Sodium (Pantoprazole Inj 40 Mg Vial) 40 mg IVP BID [facility] Stop: 12/13/24 20:59 Last Admin: 11/19/24 08:09 Dose: 40 mg Pantoprazole Sodium (Pantoprazole 40 Mg Tablet) 40 mg PO BID [facility]; Protocol Stop: 12/19/24 20:59 Last Admin: 11/22/24 08:38 Dose: 40 mg Pantoprazole Sodium (Pantoprazole 40 Mg Tablet) 40 mg PO BID [facility] Stop: 12/22/24 20:59 Last Admin: 11/26/24 20:31 Dose: 40 mg Phytonadione (Phytonadione Inj 10 Mg/Ml Amp) 10 mg SC X1 ONE Stop: 11/23/24 11:01 Last Admin: 11/23/24 11:38 Dose: 10 mg Phytonadione (Phytonadione Inj 10 Mg/Ml Amp) 10 mg SC X1 ONE Stop: 11/25/24 12:08 Last Admin: 11/25/24 12:20 Dose: 10 mg Potassium Chloride (Potassium Chloride 10% 20 Meq/15 Ml Udc) 20 meq PO X1 ONE Stop: 11/15/24 07:30 Last Admin: 11/15/24 09:50 Dose: 20 meq Potassium Chloride (Potassium Chloride 20 Meq Tabcr) 20 meq PO X1 ONE Stop: 11/16/24 07:35 Last Admin: 11/16/24 09:11 Dose: 20 meq Rifaximin (Rifaximin 550 Mg Tablet) 550 mg PO BID [facility] Stop: 11/20/24 20:59 Last Admin: 11/20/24 08:07 Dose: 550 mg Rifaximin (Rifaximin 550 Mg Tablet) 550 mg PO BID [facility] Stop: 11/30/24 08:59 Last Admin: 11/26/24 20:32 Dose: 550 mg Sodium Chloride (Sodium Chloride Rt Karis 0.9% 3 Ml Nebu) 3 ml INH PRN PRN PRN Reason: SOLN Stop: 12/20/24 20:57 Last Admin: 11/20/24 21:21 Dose: 3 ml Sodium Polystyrene Sulfonate (Sod Polystyrene Sulfon Susp 15 Gm/60 Ml Btl) 15 gm PO X1 ONE Stop: 11/20/24 08:25 Last Admin: 11/20/24 08:37 Dose: 15 gm Sodium Polystyrene Sulfonate (Sod Polystyrene Sulfon Susp 15 Gm/60 Ml Btl) 30 gm PO X1 ONE Stop: 11/20/24 21:02 Last Admin: 11/20/24 21:25 Dose: 30 gm Sodium Polystyrene Sulfonate (Sod Polystyrene Sulfon Susp 15 Gm/60 Ml Btl) 30 gm PO X1 ONE Stop: 11/21/24 08:07 Last Admin: 11/21/24 09:09 Dose: 30 gm Assessment & Plan Plan 54 y/o F with PMHx of decompensated alcoholic cirrhosis (on transplant list), multiple admissions for hepatic encephalopathy, prior variceal bleeding s/p banding, chronic pain, T2DM presents from home with altered mental status, generalized pain, weakness, poor oral intake, and 2 episodes of hematemesis, upgraded to ICU for intubation due to inability to protect airway. Neuro: #Hepatic encephalopathy Patient has history of hepatic encephalopathy due to liver cirrhosis. Presented with somnolence, initial ammonia 153, treated with lactulose and rifaximin. Patient developed worsening encephalopathy, GCS 7. Repeat ammonia 143, lactulose had been downtitrated due to loose stools. Patient intubated for airway protection. - Lactulose 60 TID - Rifaximin 550 BID - Rectal tube in place CVS: No active issues. Pulmonary: #Left base pneumonia, likely aspiration CXR on 11/27 showed L base consolidation consistent with pneumonia, not seen on previous CXR (11/26). Likely due to aspiration in setting of decreased GCS. Patient intubated for airway protection. - Zosyn 4.5 g IV q8h (started 11/27) - Blood and sputum cultures - Maintain intubation until patient able to protect airway GI: #Acute decompensated liver failure Patient has known history of ESLD, with frequent admission for complications related to liver disease. Admitted for hepatic encephalopathy 11/13. During hospital stay, patient has acutely decompensated, with worsening coagulopathy, hepatic encephalopathy, pancytopenia. Currently awaiting transfer to [facility] for liver transplant evaluation. Minimal ascites, not enough for paracentesis on US on 11/21 11/27 MELD-Na 40, 71.3% 3 month mortality, with PT>63, INR, undetectably high. Child [place] class C: 82% perioperative mortality. - Treat hepatic encephalopathy and coagulopathy - Avoid hepatically metabolized medications when appropriate - Follow up on transfer to [facility] - GI consulted, appreciate recommendations - Rocephin 2g IV daily for potential SBP - Attempt diagnostic paracentesis if enough fluid is found #Esophageal varices Patient history of varices requiring banding. EGD 11/14/24 showed garde 1 varices, mucosal oozing. - GI consulted, appreciate recs - Octreotide drip - Protonix IV 40mg BID #Tube feedings Patient started on tube feeds due to AMS, inability to eat. Currently intubated. - Dietary consulted, appreciate recommendation - Continue tube feeds Renal: #LILY Ddx: Prerenal dehydration, hepatorenal syndrome, ATN Patient presented with significant LILY, creatinine 2.4 compared to baseline 0.9. Patient blood pressure and renal function improved with albumin, octreotide, and midodrine. Kidney function has since declined again, despite serum albumin levels elevated to 6.2. Potential ATN due to inability to hepatically metabolize potential nephrotoxins. - Strict I's and O's - Daily renal function - Renally dose medication - Avoid nephrotoxins Endo: #T2DM Patient has history of T2DM. A1c 6.0 as of 09/25/24. - Long acting insulin 8 qDaily - ISS Heme/Onc: #Pancytopenia Patient has pancytopenia, reqiuring transfusions of platelets and RBCs during hospital stay. Hemoglobin currently 7.4, platelets 21. Likely due to cirrhosis. - Monitor hemoglobin and platelets - Transfuse as needed #Coagulopathy Patient has coagulopathy due to cirrhosis. INR and PTT undetectably high. Noted to have large bruises BUE. Received vitamin K and FFP. - Monitor for signs of blood loss ID: #VRE, treatment completed Patient found to have UTI, culture showed VRE. Completed treatment course with linezolid. Has had numerous positive urine cultures for VRE in the past. - Maintain isolation precautions #Aspiration Pneumonia Treat as above DVT prophylaxis: SCDs GI prophylaxis: Protonix Diet: NPO, holding tube feeds Lines: LIJ central line, endotracheal tube, quintana, rectal tube Code status: Full code Plan of care discussed with attending Dr. Hensley. Rene Cui MD PGY-2 Attending Provider Attestation/Addendum Patient seen and examined with the above resident, Rene Cui MD. I agree with the findings, assessment, and plan of care as documented except for any differences below. Patient with significant decline in mentation. Concern for ability to adequately protect airway. Pending transfer for transplant evaluation but this trip could be deleterious without adequate airway. Hold for transfer and placed in ICU for urgent intubation. No gtts for sedation, bolus dosing overnight if needed. Enteric access in place, aggressive use of lactulose to ensure BMs and rifaxamin given this is all due to HE. Hemodynamically stable In renal failure but optimized with octreotide and albumin which we will now stop. Possibly has missed transplant window given her fuliminant liver failure but will continue supportive care with transfusions for coagulopathy and anemia, no gross GI bleed at this time. Hold empiric antibiotics at this time though low threshold to initiate. Detailed discussion with mother about goal sof care, remains hopeful and will respect her wishes to remain aggressive. Will reapproach daily abase don clinical trajectory. Total critical care time: I personally spent 40 minutes for review of physiologic parameters, directing plan of care, coordination of care with other subspecialties, and counseling patient's mother at bedside. This is exclusive of time spent teaching housestaff or performing any separate billable procedures. Patient remains at significant risk for further morbidity and mortality warranting close monitoring and care only available in the ICU. Critical care services required for acute encephalopathy, fulminant liver failure, alcoholiccirrhosis, LILY, and acute respirtaory failure.
[2024-11-27 18:06] LABS: Hematocrit 22.2 % (36.0-46.0)
[2024-11-27 18:09] LABS: Hemoglobin 7.4 g/dL (12.0-16.0)
[2024-11-27] MEDS: cefTRIAXone 2 GM in SODIUM CHLORIDE 0.9% (Popper) 50 ML IV (18:14)
[2024-11-27 18:35] LABS: Ammonia 143 uMol/L (11-32)
[2024-11-27] MEDS: ROCURONIUM INJ 10 MG/ML VIAL 10 ML 90 MG IV (18:45)
[2024-11-27] MEDS: ETOMIDATE INJ 2 MG/ML VIAL 10 ML 20 MG IVP (18:45)
--- NOTE | 2024-11-27 18:53 | XR_ITS ---
EXAMINATION: AP chest single view TECHNIQUE: AP portable supine chest single view Date and time: November 27, 2024, 1859 hours, comparison November 26, 2024 INDICATIONS: Hypoxic respiratory failure post intubation FINDINGS: More prominent bilateral lung opacity Mild enlargement cardiac contour Endotracheal tube tip 19 mm above acacia. Orogastric tube in the stomach, the tip is below the level of the film IMPRESSION: Orogastric tube 19 mm above acacia Orogastric tube in the stomach satisfactory position
--- NOTE | 2024-11-27 19:39 | XR_ITS ---
EXAMINATION: AP chest single view TECHNIQUE: AP portable semiupright chest single view Date and time: November 27, 2024, 1946 hours, comparison November 27, 2024 1859 hours INDICATIONS: Status post internal jugular line placement FINDINGS: Right internal jugular central line tip right atrium, no pneumothorax Heart failure with enlarged cardiac contour and pulmonary vascular congestion Prominent left base pneumonia Orogastric tube in satisfactory position IMPRESSION: Interval insertion right internal jugular central line, tip right atrium, no pneumothorax
--- NOTE | 2024-11-27 20:09 | ESPR_ITS ---
Documentation for date of: 11/27/24 Subjective Subjective Interval history: Patient most likely aspirated PEG tube respiratory failure requiring endotracheal intubation mechanical ventilation Exam Vital Signs Temp Pulse Resp BP Pulse Ox O2 Del Method O2 Flow Rate 97.8 F 92 18 146/86 H 100 Nasal Cannula 1 11/27/24 17:55 11/27/24 19:06 11/27/24 17:55 11/27/24 19:06 11/27/24 19:06 11/27/24 16:00 11/27/24 16:00 FiO2 50 11/27/24 19:06 Objective Labs 11/27/24 17:39 11/27/24 07:06 Labs: Laboratory Results - last 24 hr 11/27/24 11/27/24 11/27/24 07:06 09:04 14:52 WBC 3.0 L RBC 1.92 L* Hgb 6.7 L* Hct 19.8 L* MCV 103 H MCH 34.9 MCHC 33.8 RDW Std Deviation 67.1 H Plt Count 21 L* D Neut % (Auto) 80 Lymph % (Auto) 17 [place] % (Auto) 2 Eos % (Auto) 0 Baso % (Auto) 0 Neut # (Auto) 2.4 Lymph # (Auto) 0.5 L [place] # (Auto) 0.1 Eos # (Auto) 0.0 Baso # (Auto) 0.0 Immature Gran # (Auto) 0.01 H Absolute Nucleated RBC 0.00 Immature Gran % 0 Nucleated RBC % 0 PT > 63.0 H* INR APTT 62.8 H Puncture Site Left Radial ABG pH 7.31 L ABG pCO2 44 ABG pO2 91 ABG HCO3 22 ABG O2 Saturation 98 ABG Base Excess -4 L Oxygen Liter Flow 1 Sodium 146 H Potassium 4.6 Chloride 105 Carbon Dioxide 23.0 Anion Gap 18 H BUN 30 H Creatinine 1.8 H Estim Creat Clear Calc 32.1 L eGFR 33 L BUN/Creatinine Ratio 17 Glucose 246 H D Calculated Osmolality 304 H Calcium 11.3 H Corrected Calcium 11.3 H Phosphorus 3.5 Magnesium 2.5 Total Bilirubin 8.0 H AST 27 ALT 9 L Alkaline Phosphatase 41 L D Ammonia Total Protein 8.6 H Albumin 6.2 H D Globulin 2.4 Albumin/Globulin Ratio 2.6 H Misc Test Result Platelets confirmed Blood Type O Positive Antibody Screen NEGATIVE Crossmatch See Detail Blood Bank Wristband ID Yes Blood Bank Comment FFP Ready 11/27/24 17:39 WBC RBC Hgb 7.4 L Hct 22.2 L MCV MCH MCHC RDW Std Deviation Plt Count Neut % (Auto) Lymph % (Auto) [place] % (Auto) Eos % (Auto) Baso % (Auto) Neut # (Auto) Lymph # (Auto) [place] # (Auto) Eos # (Auto) Baso # (Auto) Immature Gran # (Auto) Absolute Nucleated RBC Immature Gran % Nucleated RBC % PT INR APTT Puncture Site ABG pH ABG pCO2 ABG pO2 ABG HCO3 ABG O2 Saturation ABG Base Excess Oxygen Liter Flow Sodium Potassium Chloride Carbon Dioxide Anion Gap BUN Creatinine Estim Creat Clear Calc eGFR BUN/Creatinine Ratio Glucose Calculated Osmolality Calcium Corrected Calcium Phosphorus Magnesium Total Bilirubin AST ALT Alkaline Phosphatase Ammonia 143 H* Total Protein Albumin Globulin Albumin/Globulin Ratio Misc Test Result Blood Type Antibody Screen Crossmatch Blood Bank Wristband ID Blood Bank Comment Impressions Impression: Hepatic/metabolic encephalopathy patient mechanically ventilated Chronic liver disease secondary to alcohol Advanced portal hypertension leading to mucosal oozing of blood requiring octreotide infusion Prognosis guarded ABG Interpretation ABG results: 11/27/24 14:52 ABG pH 7.31 L ABG pCO2 44 ABG pO2 91 ABG HCO3 22 ABG O2 Saturation 98 ABG Base Excess -4 L Assessment & Plan A&P Narrative uti , mild with vre as only germ found po linezolid ok for this for total of 7d, cirrhosis, etoh related home at your discretion.if abd pain persists, then evaluate ascites will see again prn Time Spent With Patient Time: Total time spent is greater than 50% in coordination of care (as documented) at patient's floor/unit and/or counseling patient:
--- NOTE | 2024-11-27 20:42 | PD.RESPROC ---
PROCEDURES: Procedure Date / Time 11/27/24 8330 Procedure Narrative Procedure Narrative: Attending Attestation: I was present for entire procedure. No immediate complications. Patient tolerated procedure well. No significant desaturation or hemodynamic changes. Intubation Indication(s): inability to protect airway Informed consent obtained: obtained from surrogate decision maker Time out done, and the following verified: correct patient, side and site, procedure, patient position and implants and/or equipment Sedative: etomidate Mg given: 20 Paralytic: rocuronium Mg given: 90 Laryngoscope: fiber optic video scope Assist device used: Bougie ET tube size: 7 ET tube uncuffed: No Tube secured depth (cm): 19 Tube secured location: lips Tube placement confirmation: equal breath sounds bilaterally and confirmation by capnometry Patient tolerated procedure: well and no complications EBL(ml): 0 Intubation complications: none Additional comments: Procedure performed without complication, under supervision of Dr. Hensley. Rene Cui MD PGY-2
--- NOTE | 2024-11-27 20:46 | PD.RESPROC ---
PROCEDURES: Procedure Date / Time 11/27/241929 Procedure Narrative Procedure Narrative: Attending Attestation: I agree with line placement. I was not present for procedure but readily available. Supervised by senior resident. No immediate complications. Follow up chest film shows adequate placement oftip of catheter and no post procedure PTX. Central Line Placement Right IJ: Indication(s): poor, or inadequate peripheral venous access Informed consent obtained: obtained from surrogate decision maker Time out done, and the following verified: correct patient, side and site, procedure, patient position and implants and/or equipment Patient placed on monitor/pulse ox: Yes Hand Hygiene: alcohol-based hand rub Max Sterile Barrier Techniques used: cap, mask, sterile gown, sterile gloves and sterile full body drape Central line prep: Chlorhexidine scrub and sterile drapes applied Ultrasound used for placement: Yes Sterile Technique if Ultrasound used, including sterile gel: yes Central line lumen inserted: triple Post procedure: sutured in place, good blood return, all ports aspirated, flushed, capped and sterile dressing applied Post procedure x-ray: tip of catheter in good position and no pneumothorax seen Patient tolerated procedure: well and no complications EBL(ml): 20 Complications: none Procedure comment: Procedure completed without complications. Supervised by Dr. Desai. Rene Cui MD PGY-2
[2024-11-27 21:24] LABS: Base Excess -5 (-3-3); HCO3 21 mEq/L (20-26); Inspired Oxygen, FIO2 50 %; O2 Saturation 100 % (91-98); PCO2 39 mmHg (32.0-48.0); PO2 154 mmHg (83-108); pH, Arterial 7.34 (7.35-7.45)
[2024-11-27 21:25] LABS: Allen Test Performed/OK; Puncture Site Left Radial
[2024-11-27] MEDS: PIPER/TAZO INJ 4.5 GM in SODIUM CHLORIDE 0.9% (POP) 100 ML IV (22:50)
[2024-11-27] MEDS: LACTULOSE SYRUP 20 GM/30 ML UDC 60 GM NG (22:51)
[2024-11-28] VITALS (119 sets, daily range): BP systolic 114–145; BP diastolic 68–105; PULSE 85–99; RESP 7–22; TEMP 36.2–36.7; O2SAT 100; BMI 33.9
[2024-11-28] MEDS: MIDAZOLAM INJ 1 MG/ML VIAL 2 ML 2 MG IVP (01:00)
[2024-11-28] MEDS: MIDAZOLAM INJ 1 MG/ML VIAL 2 ML 4 MG IVP ×4 (01:52→07:31)
[2024-11-28 05:14] LABS: Base Excess -6 (-3-3); HCO3 19 mEq/L (20-26); Inspired Oxygen, FIO2 45 %; O2 Saturation 100 % (91-98); PCO2 34 mmHg (32.0-48.0); PO2 168 mmHg (83-108); pH, Arterial 7.36 (7.35-7.45)
[2024-11-28 05:19] LABS: Allen Test Not Performed; Puncture Site Left Radial
[2024-11-28 05:21] LABS: Basophils # (Auto) 0.0 Thou/mm3 (0.0-0.2); Basophils % (Auto) 0 % (0-2.5); Eosinophils # (Auto) 0.0 Thou/mm3 (0.0-0.5); Eosinophils % (Auto) 2 % (0-10); Immature Granulocytes Auto 0.00 Thou/mm3 (0.00-0.00); Lymphocytes # (Auto) 0.4 Thou/mm3 (1.0-4.8); Lymphocytes % (Auto) 21 % (10-50); Mean Corpuscular HGB Conc 33.7 g/dl (31.0-37.0); Mean Corpuscular Hemoglobin 33.3 pg (25.0-35.0); Mean Corpuscular Volume 99 fL (80-100); Monocytes # (Auto) 0.1 Thou/mm3 (0.0-0.8); Monocytes % (Auto) 3 % (0-12); Neutrophils # (Auto) 1.4 Thou/mm3 (1.8-7.7); Neutrophils % (Auto) 74 % (37-80); Nucleated Red Blood Cell # 0.00 Thou/mm3 (0.00-0.00); Nucleated Red Blood Cell % 0 /100 WBC (0); RDW Standard Deviation 66.8 fL (36.4-46.3); Red Blood Count 2.07 Miln/mm3 (4.00-5.20); White Blood Count 1.8 Thou/mm3 (3.6-11.0)
[2024-11-28 05:27] LABS: Hemoglobin 6.9 g/dL (12.0-16.0)
[2024-11-28 05:28] LABS: Hematocrit 20.5 % (36.0-46.0); Platelet Count 12 Thou/mm3 (140-440)
[2024-11-28 05:38] LABS: Alanine Aminotransferase 11 U/L (10-49); Albumin, Serum 5.9 gm/dL (3.5-5.0); Albumin/Globulin Ratio 3.1 (1.2-2.2); Alkaline Phosphatase 39 U/L (46-116); Anion Gap 24 (7-16); Aspartate Amino Transferase 28 U/L (0-34); BUN/Creatinine Ratio 19 Ratio (12-20); Bilirubin,Total 8.1 mg/dL (0.3-1.2); Blood Urea Nitrogen 34 mg/dL (9-23); Calcium 11.2 mg/dL (8.3-10.6); Calcium (Corrected) 11.2 mg/dL (8.5-10.1); Carbon Dioxide 19.6 mMol/L (20.0-31.0); Chloride 106 mMol/L (98-107); Creatinine (Component) 1.8 mg/dL (0.6-1.3); Estimated Creatinine Clearance 32.1 mL/min (>60); Globulin 1.9 gm/dL (2.3-3.5); Glucose 213 mg/dL (74-106); Magnesium 2.8 mg/dL (1.6-2.6); Osmolality,Calculated 311 (275-295); Phosphorous 3.0 mg/dL (2.4-5.1); Potassium 3.5 mMol/L (3.4-5.1); Sodium 150 mMol/L (136-145); Total Protein 7.8 gm/dL (5.7-8.2); eGFR 33 See Note
[2024-11-28] MEDS: LACTULOSE SYRUP 20 GM/30 ML UDC 60 GM NG ×2 (05:44→14:43)
[2024-11-28] MEDS: PIPER/TAZO INJ 4.5 GM in SODIUM CHLORIDE 0.9% (POP) 100 ML IV ×2 (05:56→14:43)
[2024-11-28 06:01] LABS: Partial Thromboplastin Time 57.9 Seconds (22.0-36.0)
[2024-11-28] MEDS: INSULIN LISPRO (AdmeLOG) 1 UNIT/0.01 ML UNIT SC ×3 (06:22→18:28)
[2024-11-28 06:24] LABS: Hematocrit 23.0 % (36.0-46.0)
[2024-11-28 06:28] LABS: Hemoglobin 7.4 g/dL (12.0-16.0)
[2024-11-28 06:41] LABS: Prothrombin Time > 63.0 Seconds (9.0-12.2)
--- NOTE | 2024-11-28 07:33 | PC.CC ---
Addendum entered by Judson Hughes RN 11/28/24 13:52: 1350: spoke to Elvi fajardo [facility] for status on transfer. she stated it is still pending a MD review. Provided her with an update that was given to me by Dr. Cui. They will attempt to extubate pt later today and that the patient is stable for transfer. Addendum entered by Judson Hughes RN 11/28/24 09:10: spoke to Gilda fajardo [facility] requesting contact information for Dr. Hensley. contact information provided. She stated transfer will be put on a clinical hold until the peer to peer is completed and confirm patient is stable for transfer. She stated she will call me back once that is complete. Addendum entered by Judson Hughes RN 11/28/24 08:40: [facility] up to date clinicals. Informed her pt is now in ICU. She stated to send the clinicals and she will have to present this case to the ICU team. Clinicals sent. Original Note: 0733: spoke to income tax expert Ashlyn, informed her that DC summary needs to be completed. She stated she will talk to the resident to enter one in. Informed her that documentation of pt's worsening condition is required.
[2024-11-28] MEDS: POTASSIUM CHLORIDE 10% 20 MEQ/15 ML UDC 40 MEQ GT (08:57)
[2024-11-28] MEDS: FOLIC ACID 1 MG TABLET 2.5 MG NG (08:57)
[2024-11-28] MEDS: THIAMINE INJ 100 MG/ML VIAL 2 ML IVP (08:58)
[2024-11-28] MEDS: cefTRIAXone 2 GM in SODIUM CHLORIDE 0.9% (Popper) 50 ML IV (08:59)
[2024-11-28] MEDS: INSULIN DEGLUDEC 5 UNIT/0.05 ML (PER 5 UNITS) 8 UNIT SC (09:16)
[2024-11-28 09:19] LABS: Slide Review Platelets confirmed
[2024-11-28] MEDS: OCTREOTIDE ACET INJ 1,000 MCG in SODIUM CHLORIDE 0.9% 100 ML 5.1 MCG IV (09:24)
--- NOTE | 2024-11-28 09:44 | ESDS_ITS ---
Planned Discharge Date 11/28/24 DS: Providers Provider Date of admission: 11/13/24 15:24 Primary care physician: Physician No Primary/Family Admitting Provider: Stephen Ahuja MD Attending Provider on Admission: Mateo Glover DO Consults: 11/13/24 16:22 Consult to Gastroenterology Routine Comment: Consulting Provider: Brenda Culp 11/14/24 10:12 Consult to Nephrology Urgent Comment: Consulting Provider: Justa Ramon 11/17/24 10:02 Referral Physical Therapy Routine Comment: Physician Instructions: 11/18/24 06:24 Referral Wound Care Routine Comment: sheering vs stage 2 right buttock 11/18/24 06:25 Referral Registered Dietitian Routine Comment: sheering vs stage 2 right buttock 11/18/24 08:11 Consult to Infectious Diseases Routine Comment: Consulting Provider: Oj Castellanos 11/22/24 09:40 Referral - Aircraft Powerplant Repairer Routine Service Needed for Transfer: hepatology Addl Comments:: liver transplant candidate Attending Provider on DC: Jon Hensley MD Discharging Provider: Rene Cui MD DS: Diagnosis Problem List Completed Was Problem List Reviewed/Reconciled?: Yes Hospital Course Hospital Course Hospital course: Summary: Elzbieta Knight is a 54F pmhx of significant for decompensated alcoholic cirrhosis, multiple admissions for hepatic encephalopathy, hx of prior variceal bleeding s /p banding, chronic pain, NIDDM2 presented to [facility] 11/13 for altered mental status, weakness and 2 episodes of hematemesis, admitted for hepatic encephalopathy likely secondary to decompensated alcoholic cirrhosis, found to have LILY, later developing leukopenia and severe thrombocytpoenia. Course complicated by VRE UTI. Patient presented with altered mental status for the past 2 days prior to admission with generalized weakness and severe asterixis. Patient has been seen multiple times [facility] for hepatic encephalopathy despite being compliant with medication. On admission ammonia level was 153, BUN 30, creatinine 2.4, troponin 0.031, platelets 32 then decreased to 28. Patient was treated with rifamixin 550 mg BID, increased lactulose from home 10 g 3 times daily to 20 g 3 times daily, albumin and midodrine 10 mg TID with improvement in encephalopathy. On 11/15/2024, patient underwent EGD which showed grade 1 esophageal varices found in the lower third of esophagus, did few severely er ythematous mucosa with stigmata of recent bleeding found entire stomach, and pulsating of blood due to hypertensive portal gastropathy with normal duodenum. No interventions performed during EGD and patient was placed on octreotide drip for 5 days as well as pantoprazole and Hgb largely remained stable. During admission, nephrology was consulted and patient was diagnosed with hepatorenal syndrome as patient was admitted with LILY which resolved with albumin and midodrine. Albumin was initially discontinued, however LILY reoccurred, and albumin restarted with subsequent improvement of creatinine. Of note, urine culture also grew VRE as patient does have a history of VRE UTIs. Per ID, patient was started on linezolid 600 mg BID for total of 7 days from 11/18 to 11/25. Patient developed worsening mentation on 11/27. repeat ammonia level increased to 143, bowel movements decreased. ICU team consulted due to worsening mentation to evaluate airway protection. Decision was made to intubate patient for airway protection. Intubation completed without incident, R IJ placed for vascular access without incident. Patient was sedated with IVP Versed as needed, lactulose dosage was increased to 60 gm TID. Patient showed improvement in responsiveness, had multiple bowel movements overnight. Hemodynamically stable, tolerating ventilator well. Receiving 1 unit platelets for coagulopathy and thr ombocytopenia, hemoglobin remains stable. Zosyn initiated due to CXR findings indicating L base PNA, likely aspiration pneumonia in setting of worsening hepatic encephalopathy. Imagin/30 CXR showed mild vascular congestion, poor inspiratory effort, moderate osteopenia 11/21 Abdominal US minimal ascitic fluid 11/27 KUB showed significant stool burden. 11/27 CXR showed L base PNA, likely aspiration Discharge recommendations as per accepting facility. Hospital Diagnoses: #Hepatic encephalopathy 2/2 #Decompensated cirrhosis, likely alcoholic #Thrombocytopenia, stable #Hyperammonemia #Hypoalbuminemia, resolved #Coagulopathy #Macrocytic anemia, chronic #UTI, VRE #PNA, likely aspiration #LILY, prerenal, improving #Hepatorenal syndrome #Hematuria 2/2 thrombopenia and/or VRE UTI #Hx of VRE UTI #Hyperkalemia #Abdominal pain #Allodynia #Hematemesis #Gastritis with recent mucusal bleeding #Grade I non-bleeding esophageal varicies at lower third of esophagus #Hx of Grade III esophageal varicies s/p banding 06/13/24 #Leukopenia #Urinary retention, resolved #Chronic pain #NIDDM2 Plan of care discussed with attending Dr. Hensley. Rene Cui MD PGY-2 Time Spent with Patient Time attestation: Total time spent providing and/or coordinating discharge services: Time spent: Greater than 30 minutes Home Health Home Health Referral Orders: 11/21/24 12:32 Home Health Referral Routine Reason For Exam: debility Home-Bound The patient must either because of illness or injury, need the aid of supportive devices such as crutches, canes, wheelchairs, and walkers; the use of special transportation; or the assistance of another person in order to leave their place of residence; OR have a condition such that leaving his or her home is medically contraindicated. In addition, the patient also meets the following criteria: patient is normally unable to leave the home and leaving home requires considerable taxing effort. Addendum to Home Health Certification Practitioner's Certification: I certify that the patient has been under my care in the hospital and the care of attending physician (see below). We had a [id number] encounter on (see date below). My clinical findings indicate that the patient is home bound per the above criteria and the Home Health Services noted in these orders are medically necessary. The primary reason for the [id number] encounter is related to the fact that the patient requires home health services. Date Certifying [id number]-[id number] Physician Encounter: 11/13/24 Physician's Name who will Assume Oversight for HH Services: Physician No Primary/Family RETAIL DIRECTOR - Community Resources: No PT to Evaluate: Yes PT to evaluate and provide a treatmnet plan to increase patient's mobility and strength. Wound Care: No IV Therapy: No Discontinue PICC Line Once Treatment Complete: No RN Safety Evaluation: Yes RN to evaluate and create a plan of care that will produce positive outcomes. Palliative Treatment: No Palliative treatment and evaluate the need for hospice. Home Health Aide - Personal Care: No Home Health Aide to assist with any ADL's. Exam Vital Signs Temp Pulse Resp BP Pulse Ox O2 Del Method O2 Flow Rate 97.6 F 87 22 H 137/83 H 100 Nasal Cannula 1 11/28/24 04:00 11/28/24 07:15 11/27/24 22:30 11/28/24 07:15 11/28/24 07:15 11/27/24 16:00 11/27/24 16:00 FiO2 45 11/28/24 06:43 Discharge Plan Plan Patient Disposition: Home w/HOME HEALTH Patient condition on transfer: Stable Care Plan Goals: Folowu up with your primary care physician within 2-3 days upon dicharge Follow-up primary care physician for a repeat renal panel in 2 to 3 days. Recommend to follow-up with GI and continue with appointment with transplant specialist. Follow-up with nephrology within 1 week upon discharge. You have been started on Linezolid for your urinary tract infection take 1 tablet this evening and then twice a day for 3 more days. 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 operator Continue holding metformin given LILY until follow up with primary care physician Continue all other home medications as prescribed Come back to the ER if symptoms persist or worsen Prescriptions/Referrals Prescriptions/Med Rec: New linezolid 600 mg tablet 600 mg PO BID Qty: 7 0RF Continued hydrocodone-acetaminophen 5-325 mg tablet 1 tab PO Q6H MDD 4 tablets in one day PRN (Reason: pain) Qty: 60 0RF Rx Instructions: Take one tablet by mouth up to every 6 hours pantoprazole 40 mg tablet,delayed release (DR/EC) 40 mg PO QDAY 30 Days Qty: 30 2RF Rx Instructions: Take one tablet by mouth every day before food mirtazapine [Remeron] 30 mg tablet 30 mg PO QHS 30 Days Qty: 30 1RF Rx Instructions: Take one tablet by mouth at bedtime cholecalciferol (vitamin D3) 1,250 mcg (50,000 unit) tablet 1,250 mcg PO QWEEK 90 Days Qty: 13 0RF Rx Instructions: Take one tablet by mouth once a week Xifaxan 550 mg tablet 550 mg PO BID 30 Days Qty: 60 2RF Rx Instructions: Take one tablet by mouth twice a day methocarbamol 750 mg tablet 750 mg PO BID 30 Days Qty: 60 2RF Rx Instructions: Take one tablet by mouth twice a day (DME) lancets [FreeStyle Lancets] 28 gauge misc See Rx Instructions .Route Qty: 100 5RF Rx Instructions: Use TID and PRN As directed (DME) Freestyle Insu[employer]x Test Strips Strip See Rx Instructions .Route Qty: 100 5RF Rx Instructions: Test TID and PRN As directed (DME) lancets [Acti-Petar Lancets] 28 gauge misc See Rx Instructions .Route Qty: 100 2RF Rx Instructions: As directed (DME) Accu-Chek Idania Plus test strp Strip See Rx Instructions .Route Qty: 100 2RF Rx Instructions: As directed (DME) blood-glucose meter [FreeStyle [place]] Kit See Rx Instructions .Route Qty: 1 0RF Rx Instructions: As directed furosemide 40 mg tablet 40 mg PO QAM Qty: 30 0RF midodrine 10 mg tablet 10 mg PO Q8H Changed lactulose 10 gram/15 mL solution 20 g PO TID Qty: 1200 0RF Patient Comments: TAKE 45 MLS BY MOUTH 3 TIMES A DAY Held spironolactone 50 mg tablet 50 mg PO DAILY Hold Instructions: Resume on 11/28/24. Hold until follow up with nephrology/PCP metformin 1,000 mg tablet 1,000 mg PO QDAY Hold Instructions: Resume on 11/28/24. hold until follow up with PCP Patient Comments: TAKE 1 1/2 TABLETS BY MOUTH ONCE A DAY Referrals: No Primary/Family,Physician [Primary Care Provider] Patient/Caregiver Discharge Instructions Other Discharge Activity Instructions:: Folowu up with your primary care physician within 2-3 days upon dicharge Follow-up primary care physician for a repeat renal panel in 2 to 3 days. Recommend to follow-up with GI and continue with appointment with transplant specialist. Follow-up with nephrology within 1 week upon discharge. You have been started on Linezolid for your urinary tract infection take 1 tablet this evening and then twice a day for 3 more days. 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 See most recent progress note for updated plan of care and billing for same date of service.
[2024-11-28 10:17] LABS: Fibrinogen 71 mg/dL (175-375)
--- NOTE | 2024-11-28 11:23 | XR_ITS ---
Examination: Duplex scan of the upper extremity, unilateral left complete Date and time of exam: November 28, 2024, 1115 hours INDICATIONS: Left arm redness swelling and pain today Technique: Duplex scan of the extremity veins using B-mode/grayscale imaging and Doppler spectral analysis and color flow Attention is directed to internal echogenicity, compression and augmentation involving these veins, color flow assessment, spectral analysis Findings: Major deep venous structures in the extremity demonstrate normal course and caliber. There is no evidence of deep vein thrombosis. Normal color flow and spectral analysis Impression: Negative for DVT..
--- NOTE | 2024-11-28 12:28 | ESPR_ITS ---
<Statement entered by Kyle Desai MD - 11/28/24 19:09> I discussed and supervised with the internal medicine physician physician who took care of this patient. I personally saw and examined the patient. I agree with most of the assessment and plan. Disclaimer: Despite multiple revisions, due to the dictation software being used, the document bellow may not be free of grammatical errors including phonetic/typographic errors. However, this does not deter from our commitment to providing health care in the patient's best interest in mind. Plan of care discussed with attending Physician Dr. Shellie Desai MD PGY-3 Documentation for date of: 11/28/24 Subjective Subjective Interval history: 54 y/o F with PMHx of decompensated alcoholic cirrhosis (on transplant list), multiple admissions for hepatic encephalopathy, prior variceal bleeding s/p banding, chronic pain, T2DM presents from home with altered mental status, generalized pain, weakness, poor oral intake, and 2 episodes of hematemesis in the last week. CXR was ordered and she was admitted for suspected hepatic encephalopathy recurrence. Per patient she has been taking prescribed lactulose. For week prior to admission patient had experienced loss of appetite, had very poor oral intake, and had 2 episodes of hematemesis. During this period her mentation deteriorated and she has become increasingly confused. She also developed generalized pain, n/v during this time as well as diarrhea. The patient and mother otherwise denied dysuria, frequency, constipation, fever, chills, SOB, palpitations. In the ED, she was afebrile and hemodynamically stable, cachexic, with diffuse tenderness, severe asterixis, lethargy/fatigue, generalized weakness and generalized pain. A&Ox2 oriented to name and place. UA showed blood. Labs significant for LILY (Cr 2.4 from baseline ~1.0), anemia (Hgb 10.6 though she trends 8s-10s), hyperammonemia (153), BUN 30, Plt 68.5, MCV 104, PT 17.7, INR 1.7, PTT 35.5 high normal, Tbili 6.5. Patient treated on the floors for 2 weeks. During this time, patient received lactulose, rifaximin, PRBC as needed, FFP and vitamin K. EGD on 11/14/24 showed esophageal varices and mucosal oozing, treated with octreotide drip and protonix. Patient receiving Rocephin for SBP prophylaxis. Found to have VRE UTI, treated with linezolid, treatment completed. Patient eventually became more somnolent, NG tube inserted for enteral tube feeds. At this time, patient is pending transfer to [facility] for liver transplant evaluation. Patient mentation worsened, with GCS 7, unable to protect airway. ICU was consulted to evaluate need for intubation. Decision was made to intubate patient due to inability to protect airway. Accepted care of patient. Interval Subjective History: 11/28/2024: Overnight patient was noted to have made 8-10 bowel movements through her rectal tube after being started on lactulose 60 gm TID previous day. BM's seem to have slowed down today. Patient was given PRN Versed q 1hr for agitation. Urine output minimal past 24 hours. Today patient has been making more urine at 50 cc/hr so far. This morning patient was noted to have a RASS score of -3, eye reaction but no eye contact to voice. Patient's vitals were stable, patient mechanically ventilated on 35% FiO2. Team was made aware from [facility] for liver transplant that they would need a discharge summary completed before they could accept her; this was promptly done. Due to patient not being on sedation, patient is being considered for spontaneous breathing trial today pending how her mentation improves for airway protection. Exam Vital Signs Temp Pulse Resp BP Pulse Ox O2 Del Method O2 Flow Rate 97.2 F 90 22 H 125/77 100 Mechanical Ventilation 1 11/28/24 08:00 11/28/24 11:30 11/27/24 22:30 11/28/24 11:30 11/28/24 11:30 11/28/24 08:00 11/27/24 16:00 FiO2 35 11/28/24 10:08 Narrative Exam General: Intubated, NOT sedated Skin: Bruised upper extremities, warm, dry, intact HENT: NCAT, PERRL, bilateral icteric eyes. External ears normal. No rhinorrhea. Moist mucous membranes Cardiovascular: Regular rate and rhythm, no murmur, +S1/S2. Respiratory: Lungs CTAB, decreased breath sounds bilaterally lower lobes GI: Firm, nontender, non-distended. : No suprapubic tenderness. No flank tenderness bilaterally. Extremities: Bilateral upper extremity edema (worse L > R), no cyanosis, no clubbing. Extremity pulses present Neuro: RASS -3 (eye reaction but no eye contact to voice, PERRL, gag reflex intact. Withdrawing to pain Objective Labs 12/02/24 04:30 12/02/24 04:30 Labs: Laboratory Results - last 24 hr 11/27/24 11/27/24 11/27/24 09:04 14:52 17:39 WBC RBC Hgb 7.4 L Hct 22.2 L MCV MCH MCHC RDW Std Deviation Plt Count Neut % (Auto) Lymph % (Auto) [place] % (Auto) Eos % (Auto) Baso % (Auto) Neut # (Auto) Lymph # (Auto) [place] # (Auto) Eos # (Auto) Baso # (Auto) Immature Gran # (Auto) Absolute Nucleated RBC Immature Gran % Nucleated RBC % PT INR APTT Fibrinogen Puncture Site Left Radial ABG pH 7.31 L ABG pCO2 44 ABG pO2 91 ABG HCO3 22 ABG O2 Saturation 98 ABG Base Excess -4 L Oxygen Liter Flow 1 FiO2 Sodium Potassium Chloride Carbon Dioxide Anion Gap BUN Creatinine Estim Creat Clear Calc eGFR BUN/Creatinine Ratio Glucose Calculated Osmolality Calcium Corrected Calcium Phosphorus Magnesium Total Bilirubin AST ALT Alkaline Phosphatase Ammonia 143 H* Total Protein Albumin Globulin Albumin/Globulin Ratio Misc Test Result Blood Type O Positive Antibody Screen NEGATIVE Crossmatch See Detail Blood Bank Wristband ID Yes Blood Bank Comment FFP Ready 11/27/24 11/28/24 11/28/24 21:14 04:47 04:57 WBC 1.8 L RBC 2.07 L Hgb 6.9 L* Hct 20.5 L* MCV 99 MCH 33.3 MCHC 33.7 RDW Std Deviation 66.8 H Plt Count 12 L* D Neut % (Auto) 74 Lymph % (Auto) 21 [place] % (Auto) 3 Eos % (Auto) 2 Baso % (Auto) 0 Neut # (Auto) 1.4 L Lymph # (Auto) 0.4 L [place] # (Auto) 0.1 Eos # (Auto) 0.0 Baso # (Auto) 0.0 Immature Gran # (Auto) 0.00 Absolute Nucleated RBC 0.00 Immature Gran % 0 Nucleated RBC % 0 PT > 63.0 H* INR APTT 57.9 H Fibrinogen 71 L* Puncture Site Left Radial Left Radial ABG pH 7.34 L 7.36 ABG pCO2 39 34 ABG pO2 154 H D 168 H ABG HCO3 21 19 L ABG O2 Saturation 100 H 100 H ABG Base Excess -5 L -6 L Oxygen Liter Flow FiO2 50 45 Sodium 150 H Potassium 3.5 D Chloride 106 Carbon Dioxide 19.6 L Anion Gap 24 H BUN 34 H Creatinine 1.8 H Estim Creat Clear Calc 32.1 L eGFR 33 L BUN/Creatinine Ratio 19 Glucose 213 H Calculated Osmolality 311 H Calcium 11.2 H Corrected Calcium 11.2 H Phosphorus 3.0 Magnesium 2.8 H Total Bilirubin 8.1 H AST 28 ALT 11 Alkaline Phosphatase 39 L Ammonia Total Protein 7.8 Albumin 5.9 H Globulin 1.9 L Albumin/Globulin Ratio 3.1 H Misc Test Result Platelets confirmed Blood Type Antibody Screen [facility] Blood [facility] Blood Bank Comment 11/28/24 06:00 WBC RBC Hgb 7.4 L Hct 23.0 L MCV MCH MCHC RDW Std Deviation Plt Count Neut % (Auto) Lymph % (Auto) [place] % (Auto) Eos % (Auto) Baso % (Auto) Neut # (Auto) Lymph # (Auto) [place] # (Auto) Eos # (Auto) Baso # (Auto) Immature Gran # (Auto) Absolute Nucleated RBC Immature Gran % Nucleated RBC % PT INR APTT Fibrinogen Puncture Site ABG pH ABG pCO2 ABG pO2 ABG HCO3 ABG O2 Saturation ABG Base Excess Oxygen Liter Flow FiO2 Sodium Potassium Chloride Carbon Dioxide Anion Gap BUN Creatinine Estim Creat Clear Calc eGFR BUN/Creatinine Ratio Glucose Calculated Osmolality Calcium Corrected Calcium Phosphorus Magnesium Total Bilirubin AST ALT Alkaline Phosphatase Ammonia Total Protein Albumin Globulin Albumin/Globulin Ratio Misc Test Result Blood Type Antibody Screen [place] Blood Bank [facility] Blood Bank Comment ABG Interpretation ABG results: 11/27/24 11/27/24 11/28/24 14:52 21:14 04:57 ABG pH 7.31 L 7.34 L 7.36 ABG pCO2 44 39 34 ABG pO2 91 154 H D 168 H ABG HCO3 22 21 19 L ABG O2 Saturation 98 100 H 100 H ABG Base Excess -4 L -5 L -6 L Quality Measures Quality Measures VTE prophylaxis Assessment & Plan Assessment Current Active Medications: Generic Name Dose Route Start Last Admin Trade Name Freq PRN Reason Stop Dose Admin Cyanocobalamin 1,000 mcg 11/27/24 09:00 11/28/24 08:59 Cyanocobalamin 500 Mcg Tablet NG 12/27/24 08:59 1,000 mcg QDAY CELINA Administration Dextrose 25 ml 11/22/24 09:17 Dextrose 50%-Water Inj 50 Ml Syringe IV 12/22/24 09:16 Q15MIN PRN BG 50-70 responsive npo pt Dextrose 50 ml 11/22/24 09:17 Dextrose 50%-Water Inj 50 Ml Syringe IV 12/22/24 09:16 Q15MIN PRN BG <50 OR BG <70 & pt unresponsive Folic Acid 2.5 mg 11/27/24 09:00 11/28/24 08:57 Folic Acid 1 Mg Tablet NG 12/27/24 08:59 2.5 mg QDAY CELINA Administration Glucagon 1 mg 11/22/24 09:17 Glucagon Inj 1 Mg Vial IM Q15MIN PRN BG <70, and no IV access Hydromorphone HCl 0.25 mg 11/27/24 15:02 Hydromorphone Inj 2 Mg/Ml Vial IVP 12/02/24 11:00 Q6HR PRN SEVERE PAIN 7-10 Octreotide Acetate 1,000 mcg/ 102 mls @ 5.1 mls/hr 11/26/24 16:24 11/28/24 09:24 Sodium Chloride IV 12/01/24 16:23 50 mcg/hr .Q20H CELINA 5.1 mls/hr Protocol Administration 50 MCG/HR Piperacillin Sod/Tazobactam 100 mls @ 200 mls/hr 11/27/24 22:00 11/28/24 05:56 Sod 4.5 gm/ Sodium Chloride IV 12/04/24 21:59 200 mls/hr Q8HR CELINA Administration Protocol Insulin Degludec 8 unit 11/18/24 14:30 11/28/24 09:16 Insulin Degludec 5 Unit/0.05 Ml (Per 5 Units) SC 12/18/24 14:29 8 unit QDAY CELINA Administration Insulin Human Lispro 0 unit 11/28/24 06:15 11/28/24 06:22 Insulin Lispro (Admelog) 1 Unit/0.01 Ml Unit SC 12/28/24 06:14 2 unit Q6HR CELINA Administration Protocol Lactulose 60 gm 11/27/24 22:00 11/28/24 05:44 Lactulose Syrup 20 Gm/30 Ml Udc NG 12/27/24 21:59 60 gm TID CELINA Administration Protocol Midodrine 10 mg 11/27/24 08:24 11/28/24 05:52 Midodrine 5 Mg Tablet NG 12/17/24 13:59 Not Given TID CELINA Ondansetron HCl 4 mg 11/20/24 10:43 11/26/24 21:26 Ondansetron Inj 2 Mg/Ml Inj 2 Ml IVP 12/20/24 10:42 4 mg Q6HR PRN Administration NAUSEA OR VOMITING Protocol Pantoprazole Sodium 40 mg 11/27/24 09:00 11/28/24 08:59 Pantoprazole Inj 40 Mg Vial IV 12/27/24 08:59 40 mg BID CELINA Administration Rifaximin 550 mg 11/27/24 09:00 11/28/24 08:59 Rifaximin 550 Mg Tablet NG 12/04/24 08:59 550 mg BID CELINA Administration Sodium Chloride 3 ml 11/21/24 07:03 Sodium Chloride Rt Karis 0.9% 3 Ml Nebu INH 12/21/24 07:02 PRN PRN SOLN Spironolactone 50 mg 11/16/24 10:15 11/18/24 08:50 Spironolactone 25 Mg Tablet PO 12/16/24 10:14 50 mg On Hold: 11/19/24 06:52 DAILY CELINA Administration Thiamine HCl 100 mg 11/28/24 09:00 11/28/24 08:58 Thiamine Inj 100 Mg/Ml Vial 2 Ml IVP 12/28/24 08:59 100 mg QDAY CELINA Administration Plan 54 y/o F with PMHx of decompensated alcoholic cirrhosis (on transplant list), multiple admissions for hepatic encephalopathy, prior variceal bleeding s/p banding, chronic pain, T2DM presents from home with altered mental status, generalized pain, weakness, poor oral intake, and 2 episodes of hematemesis, upgraded to ICU for intubation due to inability to protect airway. Neuro: #Hepatic encephalopathy Dx: - Patient has history of hepatic encephalopathy due to liver cirrhosis. - Initial 11/13 ammonia 153, treated with lactulose and rifaximin. - 11/27 patient developed worsening encephalopathy, GCS 7, repeat ammonia 143 , lactulose had been down titrated due to loose stools. - Patient intubated for airway protection. - 11/28 Overnight, patient noted to have made 8-10 bowel movements. Rx: - Per [facility] Broad spectrum abx and golytely. - Ordered Ammonia 11/28 PM and 11/29 AM labs - Continue Lactulose 60 TID, Rifaximin 550 BID - Rectal tube in place CVS: No active issues. Pulmonary: #Intubated, mechanically ventilated #Left base pneumonia, likely aspiration Dx: -CXR on 11/27 showed L base consolidation consistent with pneumonia, not seen on previous CXR (11/26). -Likely due to aspiration in setting of decreased GCS. Patient intubated for airway protection. Rx: - Per [facility] for - Fluconazole 200 mg IV qd, Meropenem 2,000 mg IV q12hr, Vancomycin - Blood and sputum cultures - Maintain intubation until patient able to protect airway GI: #Acute decompensated liver failure Dx: -Patient has known history of ESLD, with frequent admission for complications related to liver disease. -Admitted for hepatic encephalopathy 11/13. -During hospital stay, patient has acutely decompensated, with worsening coagulopathy, hepatic encephalopathy, pancytopenia. -Minimal ascites, not enough for paracentesis on US on 11/21 -11/27 MELD-Na 40, 71.3% 3 month mortality, with PT>63, INR, undetectably high. Child [place] class C: 82% perioperative mortality. -[facility] declined transfer declined from transplant perspective; they asked for Broad spectrum abx and golytely. Rx: - Continuing to treat hepatic encephalopathy and coagulopathy - Avoid hepatically metabolized medications when appropriate - Per [facility] Broad spectrum abx and golytely. - GI consulted, appreciate recommendations - Fluconazole 200 mg IV qd, Meropenem 2,000 mg IV q12hr, Vancomycin - Attempt diagnostic paracentesis if enough fluid is found #Esophageal varices Patient history of varices requiring banding. EGD 11/14/24 showed garde 1 varices, mucosal oozing. - GI consulted, appreciate recs - Octreotide drip - Protonix IV 40mg BID #Tube feedings Patient started on tube feeds due to AMS, inability to eat. Currently intubated. - Dietary consulted, appreciate recommendation - Tube feeds held Renal: #LILY Ddx: Prerenal dehydration, hepatorenal syndrome, ATN Patient blood pressure and renal function improved with albumin, octreotide, and midodrine. Kidney function has since declined again, despite serum albumin levels elevated to 6.2. Potential ATN due to inability to hepatically metabolize potential nephrotoxins. Dx: -Patient presented with significant LILY, creatinine 2.4 compared to baseline 0.9. -11/28: Cr 1.8; still making urine ~50cc/hr Rx: - Strict I's and O's - Daily renal function - Renally dose medication - Avoid nephrotoxins #HAGMA Dx: -[place] Formula shows pco2 should be compensated at 36-40 -pco2 at 34 on abg, supporting respiratory alkalosis on top of metabolic acidosis Rx: -continue to optimize vent and symptomatically treat hepatic encephalopathy #hypercalcemia #hypermagnesemia #hypernatremia DDx: Likely due to lactulose and ensuing BM's Dx: -Ca 11.2, Mag 2.8, Na 150 Rx: -Will continue to trend e-lytes; no acute treatment for it now Endo: #T2DM Dx: -Patient has history of T2DM. A1c 6.0 as of 09/25/24. -11/28 glucose 213 (246) Rx: - Long acting insulin 8 qDaily - ISS Heme/Onc: #Pancytopenia Patient has pancytopenia, reqiuring transfusions of platelets and RBCs during hospital stay. Hemoglobin currently 7.4, platelets 21. Likely due to cirrhosis. Dx: -Fibrinogen ordered for AM Rx: - Cryoprecipitate ordered/ready, RBC x1 ordered/ready, FFP x1 ordered/ready - Monitor hemoglobin and platelets - Transfuse as needed #Coagulopathy Patient has coagulopathy due to cirrhosis. INR and PTT undetectably high. Noted to have large bruises BUE. Received vitamin K and FFP. - Monitor for signs of blood loss ID: #VRE, treatment completed Patient found to have UTI, culture showed VRE. Completed treatment course with linezolid. Has had numerous positive urine cultures for VRE in the past. - Maintain isolation precautions #Aspiration Pneumonia Treat as above -Blood cx's pending 11/27 -ET gram stain showed 1+ mixed thad, occasional budding yeast, fungal elements, 2+ wbcs Disposition: ICU; [facility] denied transfer for Liver transplant DVT prophylaxis: SCD's GI prophylaxis: Protonix Diet: NPO, holding tube feeds Lines: Peripherals, rectal tube, ET tube Drips: none Vent: Spontaneous Pressure Support CODE STATUS: Full code Reason of hospitalization Patient plan of care was discussed with the attending physician, Dr. Hensley & senior resident Dr. Lloyd Handy MD PGY-1 Attending Provider Attestation/Addendum Patient seen and examined with above resident, Charlie Handy MD. I agree with the findings, assessment, and plan of care as document except for any differences below. Patient remains hemodynamically stable status post intubation yesterday for airway protection. Patient tolerating lactulose with increased bowel movements overnight. Intermittent agitation reported overnight and was treated with Versed and fentanyl. She remains lethargic/obtunded not following commands at this point. Will continue to monitor her for recovery after clearance of sedatives to determine ability to perform SBT. Will contact transplant center for additional input. Patient with history of esophageal varices and will be continued on octreotide for completion of 5 days. Patient underlying coagulopathy being monitored with no gross signs of bleeding though she does have potential hemolysis secondary to DIC. Will treat her with transfusions as needed including PRBCs, FFP, and cryoprecipitate based on fibrinogen levels. Patient completed course of antibiotics, linezolid for UTI. No evidence of ongoing infection at this time. Patient continues to have reasonable urine output though she remains anasarcic at this point. Patient unfortunately with fulminant hepatic failure and will require transplant likely because she is not a candidate at this time or listed. Patient will need full inpatient evaluation and once we are able to transfer her to a tertiary center at their discretion. Patient's mother was at bedside and updated appropriately. Total critical care time: Personally spent 45 minutes for review of physiologic parameters, directing plan of care throughout the day, coordination of care with other specialists, and counseling patient's family at bedside. This is exclusive of time spent teaching staff performing separate billable procedures. Patient remains at significant risk for further morbidity and mortality warranting close monitoring and care only available in the ICU. Critical care services required for acute/hepatic encephalopathy, fulminant liver failure secondary to alcoholism, pancytopenia, low-grade DIC, acute renal failure, healthcare acquired pneumonia.
--- NOTE | 2024-11-28 14:33 | PC.PT ---
Upon chart review, patient is now transferred to ICU and mechanically ventilated. Patient will be D/C from PT services as she is not stable to work with PT at this time.
[2024-11-28] MEDS: MIDODRINE 5 MG TABLET 10 MG NG ×2 (14:42→21:30)
[2024-11-28] MEDS: LACTOBACILLUS RHAMNOSUS 1 CAP 2 CAP PO (14:42)
[2024-11-28 17:48] LABS: Ammonia 142 uMol/L (11-32)
[2024-11-28] MEDS: FLUCONAZOLE/NS 400 MG IVPB 400 MG/200 ML BAG 100 MG IV (18:12)
[2024-11-28] MEDS: NA SU/NAHCO3/KC/PEG (Golytely) 4,000 ML BTL 4000 ML NG (19:25)
[2024-11-28] MEDS: VANCOMYCIN/WATER 1250 MG IVPB 250 ML 120 MG IV (19:25)
--- NOTE | 2024-11-28 20:40 | ESPR_ITS ---
Documentation for date of: 11/28/24 Subjective Subjective Interval history: Patient evaluated remains mechanically ventilated Internal medicine team in touch with [facility] for a possible liver transplant evaluation Exam Vital Signs Temp Pulse Resp BP Pulse Ox O2 Del Method O2 Flow Rate 97.3 F 94 17 132/82 H 100 Mechanical Ventilation 1 11/28/24 18:53 11/28/24 20:34 11/28/24 18:53 11/28/24 20:34 11/28/24 20:34 11/28/24 08:00 11/27/24 16:00 FiO2 35 11/28/24 20:34 Objective Labs 11/28/24 06:00 11/28/24 04:47 Labs: Laboratory Results - last 24 hr 11/27/24 11/27/24 11/28/24 09:04 21:14 04:47 WBC 1.8 L RBC 2.07 L Hgb 6.9 L* Hct 20.5 L* MCV 99 MCH 33.3 MCHC 33.7 RDW Std Deviation 66.8 H Plt Count 12 L* D Neut % (Auto) 74 Lymph % (Auto) 21 [place] % (Auto) 3 Eos % (Auto) 2 Baso % (Auto) 0 Neut # (Auto) 1.4 L Lymph # (Auto) 0.4 L [place] # (Auto) 0.1 Eos # (Auto) 0.0 Baso # (Auto) 0.0 Immature Gran # (Auto) 0.00 Absolute Nucleated RBC 0.00 Immature Gran % 0 Nucleated RBC % 0 PT > 63.0 H* INR APTT 57.9 H Fibrinogen 71 L* Puncture Site Left Radial ABG pH 7.34 L ABG pCO2 39 ABG pO2 154 H D ABG HCO3 21 ABG O2 Saturation 100 H ABG Base Excess -5 L FiO2 50 Sodium 150 H Potassium 3.5 D Chloride 106 Carbon Dioxide 19.6 L Anion Gap 24 H BUN 34 H Creatinine 1.8 H Estim Creat Clear Calc 32.1 L eGFR 33 L BUN/Creatinine Ratio 19 Glucose 213 H Calculated Osmolality 311 H Calcium 11.2 H Corrected Calcium 11.2 H Phosphorus 3.0 Magnesium 2.8 H Total Bilirubin 8.1 H AST 28 ALT 11 Alkaline Phosphatase 39 L Ammonia Total Protein 7.8 Albumin 5.9 H Globulin 1.9 L Albumin/Globulin Ratio 3.1 H Misc Test Result Platelets confirmed Blood Type O Positive Antibody Screen NEGATIVE Crossmatch See Detail Blood Bank Wristband ID Yes Blood Bank Comment PLATP Ready 11/28/24 11/28/24 11/28/24 04:57 06:00 17:12 WBC RBC Hgb 7.4 L Hct 23.0 L MCV MCH MCHC RDW Std Deviation Plt Count Neut % (Auto) Lymph % (Auto) [place] % (Auto) Eos % (Auto) Baso % (Auto) Neut # (Auto) Lymph # (Auto) [place] # (Auto) Eos # (Auto) Baso # (Auto) Immature Gran # (Auto) Absolute Nucleated RBC Immature Gran % Nucleated RBC % PT INR APTT Fibrinogen Puncture Site Left Radial ABG pH 7.36 ABG pCO2 34 ABG pO2 168 H ABG HCO3 19 L ABG O2 Saturation 100 H ABG Base Excess -6 L FiO2 45 Sodium Potassium Chloride Carbon Dioxide Anion Gap BUN Creatinine Estim Creat Clear Calc eGFR BUN/Creatinine Ratio Glucose Calculated Osmolality Calcium Corrected Calcium Phosphorus Magnesium Total Bilirubin AST ALT Alkaline Phosphatase Ammonia 142 H* Total Protein Albumin Globulin Albumin/Globulin Ratio Misc Test Result Blood Type Antibody Screen Crossmatch Blood Bank Wristband ID Blood Bank Comment Impressions Impression: End-stage liver disease due to alcohol Advanced portal hypertension Acute hypoxic respiratory failure most likely due to aspiration Continue supportive care ABG Interpretation ABG results: 11/27/24 11/27/24 11/28/24 14:52 21:14 04:57 ABG pH 7.31 L 7.34 L 7.36 ABG pCO2 44 39 34 ABG pO2 91 154 H D 168 H ABG HCO3 22 21 19 L ABG O2 Saturation 98 100 H 100 H ABG Base Excess -4 L -5 L -6 L Assessment & Plan A&P Narrative uti , mild with vre as only germ found po linezolid ok for this for total of 7d, cirrhosis, etoh related home at your discretion.if abd pain persists, then evaluate ascites will see again prn Time Spent With Patient Time: Total time spent is greater than 50% in coordination of care (as documented) at patient's floor/unit and/or counseling patient:
[2024-11-28] MEDS: MEROPENEM IV (21:29)
[2024-11-28] MEDS: SODIUM CHLORIDE 0.9% IV (21:29)
[2024-11-28 22:33] LABS: Basophils # (Auto) 0.0 Thou/mm3 (0.0-0.2); Basophils % (Auto) 0 % (0-2.5); Eosinophils # (Auto) 0.0 Thou/mm3 (0.0-0.5); Eosinophils % (Auto) 1 % (0-10); Immature Granulocytes Auto 0.01 Thou/mm3 (0.00-0.00); Lymphocytes # (Auto) 0.4 Thou/mm3 (1.0-4.8); Lymphocytes % (Auto) 19 % (10-50); Mean Corpuscular HGB Conc 33.9 g/dl (31.0-37.0); Mean Corpuscular Hemoglobin 33.7 pg (25.0-35.0); Mean Corpuscular Volume 100 fL (80-100); Monocytes # (Auto) 0.1 Thou/mm3 (0.0-0.8); Monocytes % (Auto) 3 % (0-12); Neutrophils # (Auto) 1.4 Thou/mm3 (1.8-7.7); Neutrophils % (Auto) 76 % (37-80); Nucleated Red Blood Cell # 0.00 Thou/mm3 (0.00-0.00); Nucleated Red Blood Cell % 0 /100 WBC (0); RDW Standard Deviation 67.9 fL (36.4-46.3); Red Blood Count 1.87 Miln/mm3 (4.00-5.20); White Blood Count 1.8 Thou/mm3 (3.6-11.0)
[2024-11-28 22:50] LABS: Alanine Aminotransferase 12 U/L (10-49); Albumin, Serum 5.7 gm/dL (3.5-5.0); Albumin/Globulin Ratio 2.9 (1.2-2.2); Alkaline Phosphatase 37 U/L (46-116); Anion Gap 21 (7-16); Aspartate Amino Transferase 25 U/L (0-34); BUN/Creatinine Ratio 21 Ratio (12-20); Bilirubin,Total 7.6 mg/dL (0.3-1.2); Blood Urea Nitrogen 37 mg/dL (9-23); Calcium 11.1 mg/dL (8.3-10.6); Calcium (Corrected) 11.1 mg/dL (8.5-10.1); Carbon Dioxide 21.8 mMol/L (20.0-31.0); Chloride 111 mMol/L (98-107); Creatinine (Component) 1.8 mg/dL (0.6-1.3); Estimated Creatinine Clearance 32.2 mL/min (>60); Globulin 2.0 gm/dL (2.3-3.5); Glucose 202 mg/dL (74-106); Osmolality,Calculated 320 (275-295); Potassium 3.2 mMol/L (3.4-5.1); Sodium 154 mMol/L (136-145); Total Protein 7.7 gm/dL (5.7-8.2); eGFR 33 See Note
[2024-11-28 22:51] LABS: Hematocrit 18.6 % (36.0-46.0); Hemoglobin 6.3 g/dL (12.0-16.0)
[2024-11-28 22:52] LABS: Platelet Count 17 Thou/mm3 (140-440)
[2024-11-28 22:57] LABS: Path Review Blood Smear Sent to Pathologist; Slide Review Platelets confirmed
[2024-11-28] MEDS: METOCLOPRAMIDE INJ 5 MG/ML VIAL 2 ML 10 MG IVP (23:00)
[2024-11-29] VITALS (123 sets, daily range): BP systolic 101–158; BP diastolic 61–106; PULSE 82–102; RESP 9–22; TEMP 36.1–37.1; O2SAT 98–100; BMI 34.7
[2024-11-29] MEDS: INSULIN LISPRO (AdmeLOG) 1 UNIT/0.01 ML UNIT SC ×3 (00:06→12:14)
[2024-11-29 04:17] LABS: Base Excess -5 (-3-3); HCO3 20 mEq/L (20-26); Inspired Oxygen, FIO2 35 %; O2 Saturation 99 % (91-98); PCO2 38 mmHg (32.0-48.0); PO2 127 mmHg (83-108); pH, Arterial 7.33 (7.35-7.45)
[2024-11-29 04:20] LABS: Allen Test Performed/OK; Puncture Site Right Radial
[2024-11-29 05:05] LABS: Basophils # (Auto) 0.0 Thou/mm3 (0.0-0.2); Basophils % (Auto) 0 % (0-2.5); Eosinophils # (Auto) 0.0 Thou/mm3 (0.0-0.5); Eosinophils % (Auto) 0 % (0-10); Hematocrit 23.5 % (36.0-46.0); Immature Granulocytes Auto 0.03 Thou/mm3 (0.00-0.00); Lymphocytes # (Auto) 0.3 Thou/mm3 (1.0-4.8); Lymphocytes % (Auto) 14 % (10-50); Mean Corpuscular HGB Conc 33.6 g/dl (31.0-37.0); Mean Corpuscular Hemoglobin 32.9 pg (25.0-35.0); Mean Corpuscular Volume 98 fL (80-100); Monocytes # (Auto) 0.1 Thou/mm3 (0.0-0.8); Monocytes % (Auto) 4 % (0-12); Neutrophils # (Auto) 1.9 Thou/mm3 (1.8-7.7); Neutrophils % (Auto) 80 % (37-80); Nucleated Red Blood Cell # 0.00 Thou/mm3 (0.00-0.00); Nucleated Red Blood Cell % 0 /100 WBC (0); RDW Standard Deviation 60.0 fL (36.4-46.3); Red Blood Count 2.40 Miln/mm3 (4.00-5.20); White Blood Count 2.4 Thou/mm3 (3.6-11.0)
[2024-11-29 05:16] LABS: Fibrinogen 145 mg/dL (175-375); INR 2.0 (0.9-1.3); Partial Thromboplastin Time 45.5 Seconds (22.0-36.0); Prothrombin Time 20.0 Seconds (9.0-12.2)
[2024-11-29 05:29] LABS: Alanine Aminotransferase 15 U/L (10-49); Albumin, Serum 5.7 gm/dL (3.5-5.0); Albumin/Globulin Ratio 2.9 (1.2-2.2); Alkaline Phosphatase 41 U/L (46-116); Anion Gap 24 (7-16); Aspartate Amino Transferase 24 U/L (0-34); BUN/Creatinine Ratio 28 Ratio (12-20); Bilirubin,Total 7.9 mg/dL (0.3-1.2); Blood Urea Nitrogen 45 mg/dL (9-23); Calcium 11.0 mg/dL (8.3-10.6); Calcium (Corrected) 11.0 mg/dL (8.5-10.1); Carbon Dioxide 20.8 mMol/L (20.0-31.0); Chloride 108 mMol/L (98-107); Creatinine (Component) 1.6 mg/dL (0.6-1.3); Estimated Creatinine Clearance 36.2 mL/min (>60); Globulin 2.0 gm/dL (2.3-3.5); Glucose 184 mg/dL (74-106); Magnesium 2.7 mg/dL (1.6-2.6); Osmolality,Calculated 320 (275-295); Phosphorous 3.3 mg/dL (2.4-5.1); Potassium 3.3 mMol/L (3.4-5.1); Sodium 153 mMol/L (136-145); Total Protein 7.7 gm/dL (5.7-8.2); eGFR 38 See Note
[2024-11-29 05:31] LABS: Hemoglobin 7.9 g/dL (12.0-16.0)
[2024-11-29 05:32] LABS: Platelet Count 12 Thou/mm3 (140-440)
[2024-11-29 05:49] LABS: Ammonia 339 uMol/L (11-32)
[2024-11-29 05:51] LABS: Slide Review Platelets confirmed
[2024-11-29] MEDS: OCTREOTIDE ACET INJ 1,000 MCG in SODIUM CHLORIDE 0.9% 100 ML 5.1 MCG IV ×2 (05:58→23:29)
[2024-11-29 06:57] LABS: Chloride,Urine Random < 20.0 mMol/L (55.0-125.0); Potassium,Urine Random 11 mMol/L (12-62); Sodium,Urine Random < 15.0 mMol/L (20.0-110.0)
[2024-11-29] MEDS: POTASSIUM CHLORIDE 10% 20 MEQ/15 ML UDC 40 MEQ GT (07:36)
--- NOTE | 2024-11-29 08:09 | PC.CC ---
0808: Called and spoke to Marifer alfaro/ [facility] for a status. She stated pt is waiting for bed availability at this time.
[2024-11-29] MEDS: FOLIC ACID 1 MG TABLET 2.5 MG NG (08:51)
[2024-11-29] MEDS: THIAMINE INJ 100 MG/ML VIAL 2 ML IVP (08:51)
[2024-11-29] MEDS: SODIUM CHLORIDE 0.9% IV ×2 (08:52→21:06)
[2024-11-29] MEDS: FLUCONAZOLE/NS 200 MG IVPB 200 MG/100 ML BAG 100 MG IV (08:52)
[2024-11-29] MEDS: MEROPENEM IV ×2 (08:52→21:06)
[2024-11-29] MEDS: INSULIN DEGLUDEC 5 UNIT/0.05 ML (PER 5 UNITS) 8 UNIT SC (08:55)
--- NOTE | 2024-11-29 09:36 | RESP.EEG ---
eeg taken and ready for review.
--- NOTE | 2024-11-29 10:24 | ESPR_ITS ---
<Statement entered by Kyle Desai MD - 11/29/24 18:08> Patient was seen and examined in the ICU. Overnight, patient had minimal stool output with GoLytely prep although received 4 L along with Reglan. This morning, patient had a RASS goal of -3. Urine output around 55 cc/h. Patient has been off pressors however due to declining mentation with uptrending ammonia, nephrology was consulted for possible Tableau. Patient also has decreased platelets despite receiving platelet transfusion along with FFP due to liver failure. We ordered 2 units of platelet, and FFP before inserting Vas- Cath for dialysis. There is a concern for mild DIC. Electrolytes have been deranged which are anticipated to be corrected with dialysis. Mother was informed regarding plan for dialysis. Mother was also updated regarding [facility] as [facility] stated that if patient continues to remain on ventilator they will not take the patient and will only accept if patient is extubated with neurological improvement. Fibrinogen level around 140 need to the goal for doing vasc cath procedure. Optic sheath diameter was measured with ultrasound to evaluate for possible brain edema which showed size around 6 mm. Will continue with IV antibiotic therapy, octreotide and Protonix. Consider Levophed if blood pressure drop with MAP below 65 during dialysis. Continuing dialysis for 4 hours in total. Will likely evaluate the patient tomorrow morning. All labs and orders were reviewed. I discussed and supervised with the event marketing intern physician who took care of this patient. I personally saw and examined the patient. I agree with most of the assessment and plan. Disclaimer: Despite multiple revisions, due to the dictation software being used, the document bellow may not be free of grammatical errors including phonetic/typographic errors. However, this does not deter from our commitment to providing health care in the patient's best interest in mind. Plan of care discussed with attending Physician Dr. Shellie Desai MD PGY-3 Documentation for date of: 11/29/24 Subjective Subjective Interval history: 54 y/o F with PMHx of decompensated alcoholic cirrhosis (on transplant list), multiple admissions for hepatic encephalopathy, prior variceal bleeding s/p banding, chronic pain, T2DM presents from home with altered mental status, generalized pain, weakness, poor oral intake, and 2 episodes of hematemesis in the last week. CXR was ordered and she was admitted for suspected hepatic encephalopathy recurrence. Per patient she has been taking prescribed lactulose. For week prior to admission patient had experienced loss of appetite, had very poor oral intake, and had 2 episodes of hematemesis. During this period her mentation deteriorated and she has become increasingly confused. She also developed generalized pain, n/v during this time as well as diarrhea. The patient and mother otherwise denied dysuria, frequency, constipation, fever, chills, SOB, palpitations. In the ED, she was afebrile and hemodynamically stable, cachexic, with diffuse tenderness, severe asterixis, lethargy/fatigue, generalized weakness and generalized pain. A&Ox2 oriented to name and place. UA showed blood. Labs significant for LILY (Cr 2.4 from baseline ~1.0), anemia (Hgb 10.6 though she trends 8s-10s), hyperammonemia (153), BUN 30, Plt 68.5, MCV 104, PT 17.7, INR 1.7, PTT 35.5 high normal, Tbili 6.5. Patient treated on the floors for 2 weeks. During this time, patient received lactulose, rifaximin, PRBC as needed, FFP and vitamin K. EGD on 11/14/24 showed esophageal varices and mucosal oozing, treated with octreotide drip and protonix. Patient receiving Rocephin for SBP prophylaxis. Found to have VRE UTI, treated with linezolid, treatment completed. Patient eventually became more somnolent, NG tube inserted for enteral tube feeds. At this time, patient is pending transfer to [facility] for liver transplant evaluation. Patient mentation worsened, with GCS 7, unable to protect airway. ICU was consulted to evaluate need for intubation. Decision was made to intubate patient due to inability to protect airway. Accepted care of patient. Interval Subjective History: 11/28/2024: Overnight patient was noted to have made 8-10 bowel movements through her rectal tube after being started on lactulose 60 gm TID previous day. BM's seem to have slowed down today. Patient was given PRN Versed q 1hr for agitation. Urine output minimal past 24 hours. Today patient has been making more urine at 50 cc/hr so far. This morning patient was noted to have a RASS score of -3, eye reaction but no eye contact to voice. Patient's vitals were stable, patient mechanically ventilated on 35% FiO2. Team was made aware from [facility] for liver transplant that they would need a discharge summary completed before they could accept her; this was promptly done. Due to patient not being on sedation, patient is being considered for spontaneous breathing trial today pending how her mentation improves for airway protection. 11/29/2024: Overnight patient was transfused pRBC's 1 unit for hgb 6.3 with repeat hgb showing 7.9. Patient was noted to have multiple, minimal, seeping bowel movements that never filled the rectal tube bag. Patient was started on golytely and was not able to tolerate it, was regurgitating the majority of what was given. Patient was given Reglan which didn't help making increased amount of BM either. Patient's vitals were stable upon seeing the patient today. The patient was examined and found to have a RASS of -3. Patient made 55 cc/hr of urine overnight. Patient's fibrinogen came back at 145 from 71 after being given cryoprecipitate. Planning to do Ultrasound of eye to assess for increased intracranial pressure. Exam Vital Signs Temp Pulse Resp BP Pulse Ox O2 Del Method O2 Flow Rate 98.2 F 100 18 134/82 H 100 Mechanical Ventilation 35 11/29/24 09:59 11/29/24 09:59 11/29/24 09:59 11/29/24 09:59 11/29/24 09:59 11/28/24 08:00 11/29/24 09:21 FiO2 35 11/29/24 08:00 Narrative Exam General: Intubated, NOT sedated Skin: Bruised upper extremities, cool extremities. Left upper extremity bullae, some being deroofed. HENT: NCAT, PERRL, bilateral icteric eyes. External ears normal. No rhinorrhea. Moist mucous membranes Cardiovascular: Regular rate and rhythm, no murmur, +S1/S2. Respiratory: Lungs CTAB, decreased breath sounds bilaterally lower lobes GI: Firm, nontender, non-distended. : No suprapubic tenderness. No flank tenderness bilaterally. Extremities: Bilateral upper extremity edema (worse L > R), no cyanosis, no clubbing. Extremity pulses present Neuro: RASS -3 (eye reaction but no eye contact/opening to voice), PERRL, gag reflex intact. Withdrawing to pain Objective Labs 11/29/24 04:39 11/29/24 04:39 Labs: Laboratory Results - last 24 hr 11/27/24 11/28/24 11/28/24 09:04 17:12 22:22 WBC 1.8 L RBC 1.87 L* Hgb 6.3 L* Hct 18.6 L* MCV 100 MCH 33.7 MCHC 33.9 RDW Std Deviation 67.9 H Plt Count 17 L* D Neut % (Auto) 76 Lymph % (Auto) 19 Barren % (Auto) 3 Eos % (Auto) 1 Baso % (Auto) 0 Neut # (Auto) 1.4 L Lymph # (Auto) 0.4 L Barren # (Auto) 0.1 Eos # (Auto) 0.0 Baso # (Auto) 0.0 Immature Gran # (Auto) 0.01 H Absolute Nucleated RBC 0.00 Immature Gran % 1 H Nucleated RBC % 0 Smear Path Review Sent to Pathologist PT INR APTT Fibrinogen Puncture Site ABG pH ABG pCO2 ABG pO2 ABG HCO3 ABG O2 Saturation ABG Base Excess FiO2 Sodium 154 H Potassium 3.2 L Chloride 111 H Carbon Dioxide 21.8 Anion Gap 21 H BUN 37 H Creatinine 1.8 H Estim Creat Clear Calc 32.2 L eGFR 33 L BUN/Creatinine Ratio 21 H Glucose 202 H Calculated Osmolality 320 H Calcium 11.1 H Corrected Calcium 11.1 H Phosphorus Magnesium Total Bilirubin 7.6 H D AST 25 ALT 12 Alkaline Phosphatase 37 L Ammonia 142 H* Total Protein 7.7 Albumin 5.7 H Globulin 2.0 L Albumin/Globulin Ratio 2.9 H Ur Random Sodium Ur Random Potassium Ur Random Chloride Misc Test Result Platelets confirmed Blood Type O Positive Antibody Screen NEGATIVE Crossmatch See Detail Blood Bank Wristband ID Yes Blood Bank Comment PLATP Ready 11/28/24 11/29/24 11/29/24 23:27 04:05 04:39 WBC 2.4 L RBC 2.40 L Hgb 7.9 L D Hct 23.5 L MCV 98 MCH 32.9 MCHC 33.6 RDW Std Deviation 60.0 H Plt Count 12 L* D Neut % (Auto) 80 Lymph % (Auto) 14 Barren % (Auto) 4 Eos % (Auto) 0 Baso % (Auto) 0 Neut # (Auto) 1.9 Lymph # (Auto) 0.3 L Barren # (Auto) 0.1 Eos # (Auto) 0.0 Baso # (Auto) 0.0 Immature Gran # (Auto) 0.03 H Absolute Nucleated RBC 0.00 Immature Gran % 1 H Nucleated RBC % 0 Smear Path Review PT 20.0 H D INR 2.0 H APTT 45.5 H D Fibrinogen 145 L Puncture Site Right Radial ABG pH 7.33 L ABG pCO2 38 ABG pO2 127 H D ABG HCO3 20 ABG O2 Saturation 99 H ABG Base Excess -5 L FiO2 35 Sodium 153 H Potassium 3.3 L Chloride 108 H Carbon Dioxide 20.8 Anion Gap 24 H BUN 45 H Creatinine 1.6 H Estim Creat Clear Calc 36.2 L eGFR 38 L BUN/Creatinine Ratio 28 H Glucose 184 H Calculated Osmolality 320 H Calcium 11.0 H Corrected Calcium 11.0 H Phosphorus 3.3 Magnesium 2.7 H Total Bilirubin 7.9 H AST 24 ALT 15 Alkaline Phosphatase 41 L Ammonia 339 H* Total Protein 7.7 Albumin 5.7 H Globulin 2.0 L Albumin/Globulin Ratio 2.9 H Ur Random Sodium < 15.0 L Ur Random Potassium 11 L Ur Random Chloride < 20.0 L Misc Test Result Platelets confirmed Blood Type Antibody Screen Crossmatch Blood Bank Wristband ID Blood Bank Comment ABG Interpretation ABG results: 11/27/24 11/27/24 11/28/24 14:52 21:14 04:57 ABG pH 7.31 L 7.34 L 7.36 ABG pCO2 44 39 34 ABG pO2 91 154 H D 168 H ABG HCO3 22 21 19 L ABG O2 Saturation 98 100 H 100 H ABG Base Excess -4 L -5 L -6 L 11/29/24 04:05 ABG pH 7.33 L ABG pCO2 38 ABG pO2 127 H D ABG HCO3 20 ABG O2 Saturation 99 H ABG Base Excess -5 L Quality Measures Quality Measures VTE prophylaxis Assessment & Plan Assessment Current Active Medications: Generic Name Dose Route Start Last Admin Trade Name Freq PRN Reason Stop Dose Admin Cyanocobalamin 1,000 mcg 11/27/24 09:00 11/29/24 08:51 Cyanocobalamin 500 Mcg Tablet NG 12/27/24 08:59 1,000 mcg QDAY CELINA Administration Dextrose 25 ml 11/22/24 09:17 Dextrose 50%-Water Inj 50 Ml Syringe IV 12/22/24 09:16 Q15MIN PRN BG 50-70 responsive npo pt Dextrose 50 ml 11/22/24 09:17 Dextrose 50%-Water Inj 50 Ml Syringe IV 12/22/24 09:16 Q15MIN PRN BG <50 OR BG <70 & pt unresponsive Epoetin Kamar 10,000 unit 11/29/24 14:00 Epoetin Kamar-Epbx Inj 10,000 Unit/Ml Vial (Non-Esrd) SC 11/29/24 14:01 X1 ONE Folic Acid 2.5 mg 11/27/24 09:00 11/29/24 08:51 Folic Acid 1 Mg Tablet NG 12/27/24 08:59 2.5 mg QDAY CELINA Administration Glucagon 1 mg 11/22/24 09:17 Glucagon Inj 1 Mg Vial IM Q15MIN PRN BG <70, and no IV access Hydromorphone HCl 0.25 mg 11/27/24 15:02 Hydromorphone Inj 2 Mg/Ml Vial IVP 12/02/24 11:00 Q6HR PRN SEVERE PAIN 7-10 Octreotide Acetate 1,000 mcg/ 102 mls @ 5.1 mls/hr 11/26/24 16:24 11/29/24 05:58 Sodium Chloride IV 12/01/24 16:23 50 mcg/hr .Q20H CELINA 5.1 mls/hr Protocol Administration 50 MCG/HR Meropenem 2,000 mg/ Sodium 100 mls @ 100 mls/hr 11/28/24 21:00 11/29/24 08:52 Chloride IV 12/05/24 20:59 100 mls/hr Q12HR CELINA Administration Fluconazole 200 mg in 100 mls @ 100 mls/hr 11/29/24 09:00 11/29/24 08:52 Diflucan/Ns Ivpb IV 12/06/24 08:59 100 mls/hr QDAY CELINA Administration Vancomycin HCl/Dextrose 250 mls @ 120 mls/hr 11/29/24 22:00 Vancomycin/D5w 1,250 Mg Ivpb IV 12/06/24 21:59 Q24H CELINA Protocol Albumin Human 25 gm in 100 mls @ 100 mls/min 11/29/24 09:45 Albuminex 25% Ivpb IV PRN PRN DIALYSIS Insulin Degludec 8 unit 11/18/24 14:30 11/29/24 08:55 Insulin Degludec 5 Unit/0.05 Ml (Per 5 Units) SC 12/18/24 14:29 8 unit QDAY CELINA Administration Insulin Human Lispro 0 unit 11/28/24 06:15 11/29/24 06:12 Insulin Lispro (Admelog) 1 Unit/0.01 Ml Unit SC 12/28/24 06:14 1 unit Q6HR CELINA Administration Protocol Lactobacillus Rhamnosus 2 cap 11/28/24 13:45 11/28/24 14:42 Lactobacillus Rhamnosus 1 Cap PO 12/28/24 13:44 2 cap WLUNCH CELINA Administration Midodrine 10 mg 11/27/24 08:24 11/29/24 06:13 Midodrine 5 Mg Tablet NG 12/17/24 13:59 Not Given TID CELINA Ondansetron HCl 4 mg 11/20/24 10:43 11/26/24 21:26 Ondansetron Inj 2 Mg/Ml Inj 2 Ml IVP 12/20/24 10:42 4 mg Q6HR PRN Administration NAUSEA OR VOMITING Protocol Pantoprazole Sodium 40 mg 11/27/24 09:00 11/29/24 08:51 Pantoprazole Inj 40 Mg Vial IV 12/27/24 08:59 40 mg BID CELINA Administration Pharmacy Consult 1 each 11/29/24 09:00 11/29/24 09:13 Vancomycin Pharmacy To Dose 1 Each Each IV 12/29/24 08:59 Not Given QDAY CELINA Rifaximin 550 mg 11/27/24 09:00 11/29/24 09:08 Rifaximin 550 Mg Tablet NG 12/04/24 08:59 550 mg BID CELINA Administration Sodium Chloride 3 ml 11/21/24 07:03 Sodium Chloride Rt Karis 0.9% 3 Ml Nebu INH 12/21/24 07:02 PRN PRN SOLN Spironolactone 50 mg 11/16/24 10:15 11/18/24 08:50 Spironolactone 25 Mg Tablet PO 12/16/24 10:14 50 mg On Hold: 11/19/24 06:52 DAILY CELINA Administration Thiamine HCl 100 mg 11/28/24 09:00 11/29/24 08:51 Thiamine Inj 100 Mg/Ml Vial 2 Ml IVP 12/28/24 08:59 100 mg QDAY CELINA Administration Plan 54 y/o F with PMHx of decompensated alcoholic cirrhosis (on transplant list), multiple admissions for hepatic encephalopathy, prior variceal bleeding s/p banding, chronic pain, T2DM presents from home with altered mental status, generalized pain, weakness, poor oral intake, and 2 episodes of hematemesis, upgraded to ICU for intubation due to inability to protect airway. Neuro: #Hepatic encephalopathy Dx: - Patient has history of hepatic encephalopathy due to liver cirrhosis. - Per Mother, patient was diagnosed around September 2023 and this is when she stopped completely drinking alcohol as well. - Initial 11/13 ammonia 153, treated with lactulose and rifaximin. - 11/27 patient developed worsening encephalopathy, GCS 7, repeat ammonia 143 , lactulose had been down titrated due to loose stools. - Patient intubated for airway protection. - 11/29 Overnight, less BM's, would not tolerate golytely; ammonia 339 (142) - Bedside ultrasound of eye showed optic nerve diameter ~6.3 mm (N < 5 mm), suspecting possible cerebral edema Rx: - Started dialysis for ammonia elevation - Per [facility] Broad spectrum abx and golytely. - Ordered Ammonia 1015 PM and 1016 AM labs - Continue Rifaximin 550 BID - Rectal tube in place CVS: No active issues. Pulmonary: #Intubated, mechanically ventilated #Left base pneumonia, likely aspiration Not able to extubate at this time due to patient's mentation not being appropriate for airway protection. The hepatic encephalopathy is likely contributing to this along with possible seizures vs meningitis vs cerebral edema. Dx: -CXR on 11/27 showed L base consolidation consistent with pneumonia, not seen on previous CXR (11/26). -Likely due to aspiration in setting of decreased GCS. Patient intubated for airway protection. Rx: - Per [facility] for - Fluconazole 200 mg IV qd, Meropenem 2,000 mg IV q12hr, Vancomycin - Blood and sputum cultures - Maintain intubation until patient able to protect airway GI: #Fulminant Liver Failure i/s/o End-Stage Liver Disease 2/2 Alcoholic Liver Cirrhosis Dx: -Patient has known history of ESLD, with frequent admission for complications related to liver disease. -Per Mother, patient was diagnosed around September 2023 and this is when she stopped completely drinking alcohol as well. -Admitted for hepatic encephalopathy 11/13. -During hospital stay, patient has acutely decompensated, with worsening coagulopathy, hepatic encephalopathy, pancytopenia. -Minimal ascites, not enough for paracentesis on US on 11/21 -11/27 MELD-Na 40, 71.3% 3 month mortality, with PT>63, INR, undetectably high. Child [place] class C: 82% perioperative mortality. -11/29 Maddrey's Discriminant Function forAlcoholic Hepatitis is 49.3 points -> Poor prognosis, may benefit from glucocorticoid therapy -[facility] declined transfer declined from transplant perspective; they asked for Broad spectrum abx and golytely. Rx: - Continuing to treat hepatic encephalopathy and coagulopathy - Avoid hepatically metabolized medications when appropriate - Per [facility] Broad spectrum abx and golytely. - GI consulted, appreciate recommendations - Fluconazole 200 mg IV qd, Meropenem 2,000 mg IV q12hr, Vancomycin - Attempt diagnostic paracentesis if enough fluid is found #Esophageal varices Patient history of varices requiring banding. EGD 11/14/24 showed garde 1 varices, mucosal oozing. - GI consulted, appreciate recs - Octreotide drip - Protonix IV 40mg BID #Tube feedings Patient started on tube feeds due to AMS, inability to eat. Currently intubated. - Dietary consulted, appreciate recommendation - Tube feeds ordered to restart today Renal: #LILY, on temporary dialysis (as above) Ddx: Prerenal dehydration, hepatorenal syndrome, ATN Patient blood pressure and renal function improved with albumin, octreotide, and midodrine. Kidney function has since declined again, despite serum albumin levels elevated to 6.2. Potential ATN due to inability to hepatically metabolize potential nephrotoxins. Dx: -Patient presented with significant LILY, creatinine 2.4 compared to baseline 0.9. -11/29: Cr 1.6 (1.8); still making urine ~55cc/hr overnight Rx: - Strict I's and O's - Daily renal function - Renally dose medication - Avoid nephrotoxins #HAGMA DDx: LILY from hepatorenal syndrome, decreased intravascular volume, lactic acidosis. Patient's endstage liver disease appears to be the source of this, causing renal dysfunction, decreasing the ability of the body to rid of acids. Dx: -11/29: AGAP 24, Bicarb 36.2, Rx: -continue to optimize vent and symptomatically treat hepatic encephalopathy #hypercalcemia #hypermagnesemia #hypernatremia DDx: Likely due to lactulose and ensuing BM's Dx: -11/29: Ca 11.0 (11.2), Mag 2.7 (2.8), Na 153 (150) -Sodium being elevated may help possible cerebral edema. Rx: -Will continue to trend e-lytes; -Dialysis 11/29 Endo: #T2DM Dx: -Patient has history of T2DM. A1c 6.0 as of 09/25/24. -11/29 glucose 184 (213) Rx: - Long acting insulin 8 qDaily - ISS Heme/Onc: #Pancytopenia 2/2 likely cirrhosis -Patient has pancytopenia, reqiuring transfusions of platelets and RBCs during hospital stay. -Hemoglobin currently 7.4, platelets 21. Dx: -11/29 Fibrinogen 145 (71) s/p cryoprecipitate x 4 units (fibrinogen goal of 150-200) Rx: - Monitor hemoglobin and platelets - Transfuse as needed #Coagulopathy Patient has coagulopathy due to cirrhosis. INR and PTT undetectably high. Noted to have large bruises BUE. Received vitamin K and FFP. - Monitor for signs of blood loss ID: #VRE, treatment completed Patient found to have UTI, culture showed VRE. Completed treatment course with linezolid. Has had numerous positive urine cultures for VRE in the past. - Maintain isolation precautions #Aspiration Pneumonia Treat as above -Blood cx's 11/27 NG24 hrs -ET gram stain showed 1+ mixed thad, occasional budding yeast, fungal elements, 2+ wbcs; ET culture pending Disposition: ICU; [facility] denied transfer for Liver transplant 11/28 DVT prophylaxis: SCD's GI prophylaxis: Protonix Diet: tube feeds Lines: Peripherals, rectal tube, ET tube Drips: Octreotide Vent: Yes CODE STATUS: Full code Patient plan of care was discussed with the attending physician, Dr. Hensley & senior resident Dr. Lloyd Handy MD PGY-1 Attending Provider Attestation/Addendum Patient seen and examined with the above resident, Charlie Handy MD. I agree with the findings, assessment, and plan of care as documented except for any differences below. Patient with fulminant hepatic failure. Decline at the moment by hepatology at [facility] due to intubation/ MV. Mentation remains recalcitrant to golytely given though stool output ongoing, did vomit some per overnight RN report. Patient with ammonia rising and USG at bedside suggests increased ICP. No evidence of seizure activity and patient's CN reflexes remain intact. DIC improved with fibrinogen appropriate after cryoprecipitate given yesterday. Platelets transfused and FFP to facilitate HD catheter placement. No active source of bleeding on octreotide due to variceal history. Empiric very broad spectrum antibiotics at request of hepatology though no evidence of infection definitively. Patient to be asses for transfer to another center. In interim if mentation does improve will plan to try to extubate to allow for transplant evaluation to proceed if accepted by receiving center. Mother updated at the bedside on plan of care and agreeable. Tolerating HD this afternoon without need for vasopressor support, midodrine now off for many days. Albumin also stopped. TF started with no plan for extubation at this time. Total critical care time: I personally spent 35 minutes for review of physiologic parameters, directing plan of care, coordination of care with other specialists, and counseling patient's mother at bedside. This is exclusive of time spent teaching housestaff or performing any separate billable procedures. Patient remains at significant risk of further morbidity and mortality warranting close monitoring and care only available in the ICU. Critical care services required for acute respiratory failure, decompensated/ fulminant hepatic failure, hepatic encephalopathy, acute renal failure, DIC.
--- NOTE | 2024-11-29 10:42 | ESCONSULT_ITS ---
HPI Data of Consult Consult date: 11/29/24 Requesting Physician: Mateo Glover DO Admitting Provider: Stephen Ahuja MD Attending Provider: Mateo Glover DO Primary Care Provider: Physician No Primary/Family Consult Narrative Reason for consult: Hyperammonemia, metabolic acidosis and renal dysfunction History of present illness: 54-year-old female with known decompensated alcoholic cirrhosis (on liver transplant list), recurrent admissions for hepatic encephalopathy, history of variceal bleeding s/p banding, chronic pain, and type 2 diabetes mellitus. She was previously followed by nephrology earlier this admission for LILY, prerenal etiology, and hyperkalemia, which improved with albumin and supportive management. Nephrology had signed off after renal function stabilized. Re-consulted today for marked hyperammonemia (ammonia 339, previously 142), metabolic acidosis, and renal dysfunction. Patient remains intubated and in ICU for acute hepatic failure and worsening encephalopathy. 11/29/2024: Patient seen and evaluated in ICU. Intubated, not sedated, RASS -3, withdrawing to pain but no eye tracking. Vitals stable. Liz in place with low urine output. Team reports progressive somnolence and poor mentation over the past 48 hours. Ammonia 339 despite lactulose and rifaximin. Hepatitis panel pending. Plan to initiate dialysis today for ammonia clearance and metabolic control. Labs: WBC 2.3, hemoglobin 7.9, hematocrit 23.5, platelets 12, sodium 153, potassium 3.3, chloride 108, bicarbonate 20, anion gap 24, BUN 45, creatinine 1.6, calcium 10.5, magnesium 2.7, phosphorus 3.3, total bilirubin 7.9, AST 24, ALT 15, alkaline phosphatase 41, albumin 5.7, PT 20, INR 2.0, PTT 45, fibrinogen 145, pH 7.33, pCO? 38, HCO? 20, ammonia 339, osmolality 320, glucose 111, hepatitis panel pending. cc:: cc: Mateo Glover DO Exam Vital Signs Temp Pulse Resp BP Pulse Ox O2 Del Method O2 Flow Rate 97.9 F 100 20 131/82 H 98 Mechanical Ventilation 35 11/29/24 10:31 11/29/24 10:39 11/29/24 10:31 11/29/24 10:31 11/29/24 10:39 11/28/24 08:00 11/29/24 09:21 FiO2 35 11/29/24 10:39 Narrative Exam GENERAL: Intubated, critically ill, unresponsive to commands, withdraws to pain. HEENT: Scleral icterus present. Oral mucosa dry. NECK: Supple, no JVD or bruit. CARDIOVASCULAR: Regular rhythm, no murmurs. RESPIRATORY: Mechanically ventilated, decreased breath sounds bilaterally at bases. ABDOMEN: Firm, distended, non-tender. Ascites noted. EXTREMITIES: Bilateral upper extremity edema, no cyanosis. SKIN: Jaundiced, scattered bruising on upper extremities. NEUROLOGICAL: Pupils equal and reactive; no spontaneous movement, withdraws to pain. Results Labs 11/29/24 04:39 11/29/24 04:39 Labs: Short CBC 11/28/24 11/29/24 Range/Units 22:22 04:39 WBC 1.8 L 2.4 L (3.6-11.0) Thou/mm3 Hgb 6.3 L* 7.9 L D (12.0-16.0) g/dL Hct 18.6 L* 23.5 L (36.0-46.0) % Plt Count 17 L* D 12 L* D (140-440) Thou/mm3 BMP 11/28/24 11/29/24 22:22 04:39 Sodium 154 H 153 H Potassium 3.2 L 3.3 L Chloride 111 H 108 H Carbon Dioxide 21.8 20.8 BUN 37 H 45 H Creatinine 1.8 H 1.6 H Glucose 202 H 184 H Calcium 11.1 H 11.0 H Liver Function 11/28/24 11/29/24 Range/Units 22:22 04:39 Total Bilirubin 7.6 H D 7.9 H (0.3-1.2) mg/dL AST 25 24 (0-34) U/L ALT 12 15 (10-49) U/L Alkaline Phosphatase 37 L 41 L (46-116) U/L Albumin 5.7 H 5.7 H (3.5-5.0) gm/dL ABG Interpretation ABG results: 11/27/24 11/27/24 11/28/24 14:52 21:14 04:57 ABG pH 7.31 L 7.34 L 7.36 ABG pCO2 44 39 34 ABG pO2 91 154 H D 168 H ABG HCO3 22 21 19 L ABG O2 Saturation 98 100 H 100 H ABG Base Excess -4 L -5 L -6 L 11/29/24 04:05 ABG pH 7.33 L ABG pCO2 38 ABG pO2 127 H D ABG HCO3 20 ABG O2 Saturation 99 H ABG Base Excess -5 L Quality Measures Quality Measures VTE prophylaxis Medications Home Medications and Allergies Home Medications ?Medication ?Instructions ?Recorded ?Confirmed ?Type spironolactone 50 mg tablet 50 mg PO DAILY 10/11/24 History Held on 11/21/24. Instructions: Resume on 11/28/24. Hold until follow up with nephrology/PCP metformin 1,000 mg tablet 1,000 mg PO QDAY 11/14/24 History Held on 11/21/24. Instructions: Resume on 11/28/24. hold until follow up with PCP midodrine 10 mg tablet 10 mg PO Q8H 11/14/24 History Allergies Allergy/AdvReac Type Severity Reaction Status Date / Time latex Allergy Severe Hives Verified 10/22/24 09:29 Visit Medications Cyanocobalamin (Cyanocobalamin 500 Mcg Tablet) 1,000 mcg NG QDAY [facility] Stop: 12/27/24 08:59 Last Admin: 11/29/24 08:51 Dose: 1,000 mcg Dextrose (Dextrose 50%-Water Inj 50 Ml Syringe) 25 ml IV Q15MIN PRN PRN Reason: BG 50-70 responsive npo pt Stop: 12/22/24 09:16 Dextrose (Dextrose 50%-Water Inj 50 Ml Syringe) 50 ml IV Q15MIN PRN PRN Reason: BG <50 OR BG <70 & pt unresponsive Stop: 12/22/24 09:16 Epoetin Kamar (Epoetin Kamar-Epbx Inj 10,000 Unit/Ml Vial (Non-Esrd)) 10,000 unit SC X1 ONE Stop: 11/29/24 14:01 Folic Acid (Folic Acid 1 Mg Tablet) 2.5 mg NG QDAY [facility] Stop: 12/27/24 08:59 Last Admin: 11/29/24 08:51 Dose: 2.5 mg Glucagon (Glucagon Inj 1 Mg Vial) 1 mg IM Q15MIN PRN PRN Reason: BG <70, and no IV access Hydromorphone HCl (Hydromorphone Inj 2 Mg/Ml Vial) 0.25 mg IVP Q6HR PRN PRN Reason: SEVERE PAIN 7-10 Stop: 12/02/24 11:00 Octreotide Acetate 1,000 mcg/ (Sodium Chloride) 102 mls @ 5.1 mls/hr IV .Q20H [facility]; Protocol Stop: 12/01/24 16:23 Last Admin: 11/29/24 05:58 Dose: 50 mcg/hr, 5.1 mls/hr Meropenem 2,000 mg/ Sodium (Chloride) 100 mls @ 100 mls/hr IV Q12HR [facility] Stop: 12/05/24 20:59 Last Admin: 11/29/24 08:52 Dose: 100 mls/hr Fluconazole (Diflucan/Ns Ivpb) 200 mg in 100 mls @ 100 mls/hr IV QDAY [facility] Stop: 12/06/24 08:59 Last Admin: 11/29/24 08:52 Dose: 100 mls/hr Vancomycin HCl/Dextrose (Vancomycin/D5w 1,250 Mg Ivpb) 250 mls @ 120 mls/hr IV Q24H [facility]; Protocol Stop: 12/06/24 21:59 Albumin Human (Albuminex 25% Ivpb) 25 gm in 100 mls @ 100 mls/min IV PRN PRN PRN Reason: DIALYSIS Insulin Degludec (Insulin Degludec 5 Unit/0.05 Ml (Per 5 Units)) 8 unit SC QDAY [facility] Stop: 12/18/24 14:29 Last Admin: 11/29/24 08:55 Dose: 8 unit Insulin Human Lispro (Insulin Lispro (Admelog) 1 Unit/0.01 Ml Unit) 0 unit SC Q6HR [facility]; Protocol Stop: 12/28/24 06:14 Last Admin: 11/29/24 06:12 Dose: 1 unit Lactobacillus Rhamnosus (Lactobacillus Rhamnosus 1 Cap) 2 cap PO WLUNCH [facility] Stop: 12/28/24 13:44 Last Admin: 11/28/24 14:42 Dose: 2 cap Midodrine (Midodrine 5 Mg Tablet) 10 mg NG TID [facility] Stop: 12/17/24 13:59 Last Admin: 11/29/24 06:13 Dose: Not Given Ondansetron HCl (Ondansetron Inj 2 Mg/Ml Inj 2 Ml) 4 mg IVP Q6HR PRN; Protocol PRN Reason: NAUSEA OR VOMITING Stop: 12/20/24 10:42 Last Admin: 11/26/24 21:26 Dose: 4 mg Pantoprazole Sodium (Pantoprazole Inj 40 Mg Vial) 40 mg IV BID [facility] Stop: 12/27/24 08:59 Last Admin: 11/29/24 08:51 Dose: 40 mg Pharmacy Consult (Vancomycin Pharmacy To Dose 1 Each Each) 1 each IV QDAY [facility] Stop: 12/29/24 08:59 Last Admin: 11/29/24 09:13 Dose: Not Given Rifaximin (Rifaximin 550 Mg Tablet) 550 mg NG BID [facility] Stop: 12/04/24 08:59 Last Admin: 11/29/24 09:08 Dose: 550 mg Sodium Chloride (Sodium Chloride Rt Karis 0.9% 3 Ml Nebu) 3 ml INH PRN PRN PRN Reason: SOLN Stop: 12/21/24 07:02 Spironolactone (Spironolactone 25 Mg Tablet) 50 mg PO DAILY [facility] On Hold: 11/19/24 06:52 Stop: 12/16/24 10:14 Last Admin: 11/18/24 08:50 Dose: 50 mg Thiamine HCl (Thiamine Inj 100 Mg/Ml Vial 2 Ml) 100 mg IVP QDAY [facility] Stop: 12/28/24 08:59 Last Admin: 11/29/24 08:51 Dose: 100 mg Discontinued Medications Acetaminophen (Acetaminophen 325 Mg Tablet) 650 mg PO Q6H PRN PRN Reason: PAIN 1-3 OR FEVER > 101 Stop: 12/13/24 15:29 Hydrocodone Bitart/Acetaminophen (Hydrocodone/Apap 5/325 Tablet) 1 tab PO Q4HR PRN PRN Reason: Pain Scale 4-10 Stop: 11/18/24 15:29 Last Admin: 11/15/24 09:49 Dose: 1 tab Hydrocodone Bitart/Acetaminophen (Hydrocodone/Apap 7.5/325 Tablet) 1 tab PO Q6HR PRN PRN Reason: Pain 4-10 Stop: 11/20/24 10:18 Last Admin: 11/20/24 06:05 Dose: 1 tab Hydrocodone Bitart/Acetaminophen (Hydrocodone/Apap 5/325 Tablet) 1 tab PO Q6HR PRN PRN Reason: PAIN SCALE 4-10(Mod-Sev Stop: 11/26/24 09:49 Last Admin: 11/25/24 02:33 Dose: 1 tab Hydrocodone Bitart/Acetaminophen (Hydrocodone/Apap 5/325 Tablet) 1 tab PO X1 ONE Stop: 11/25/24 17:58 Last Admin: 11/25/24 18:16 Dose: 1 tab Hydrocodone Bitart/Acetaminophen (Hydrocodone/Apap 10/325 Tab) 1 tab PO X1 ONE Stop: 11/26/24 00:13 Last Admin: 11/26/24 00:18 Dose: 1 tab Albuterol (Albuterol Rt 2.5 Mg/0.5 Ml Nebu) 2.5 mg INH X1 ONE Stop: 11/20/24 20:59 Last Admin: 11/20/24 21:20 Dose: 2.5 mg Albuterol (Albuterol Rt 2.5 Mg/3 Ml Nebu) 10 mg INH X1 ONE Stop: 11/21/24 06:48 Last Admin: 11/22/24 01:54 Dose: Not Given Albuterol (Albuterol Rt 2.5 Mg/0.5 Ml Nebu) 10 mg INH X1 ONE Stop: 11/21/24 07:04 Last Admin: 11/21/24 07:43 Dose: 10 mg Benzocaine (Benzocaine 20% (Hurricaine) [place] 1 Dose) 0 dose TOP X1 ONE Stop: 11/15/24 18:25 Cyanocobalamin (Cyanocobalamin 500 Mcg Tablet) 1,000 mcg PO DAILY [facility] Stop: 12/14/24 08:59 Last Admin: 11/22/24 08:38 Dose: 1,000 mcg Cyanocobalamin (Cyanocobalamin 500 Mcg Tablet) 1,000 mcg PO QDAY [facility] Stop: 12/23/24 08:59 Last Admin: 11/26/24 08:02 Dose: 1,000 mcg Cyanocobalamin (Cyanocobalamin 500 Mcg Tablet) 1,000 mcg NG QDAY [facility] Stop: 12/23/24 08:59 Dextrose (Dextrose 50%-Water Inj 50 Ml Syringe) 25 ml IV Q15MIN PRN PRN Reason: BG 50-70 responsive npo pt Stop: 12/13/24 17:20 Dextrose (Dextrose 50%-Water Inj 50 Ml Syringe) 50 ml IV Q15MIN PRN PRN Reason: BG <50 OR BG <70 & pt unresponsive Stop: 12/13/24 17:20 Dextrose (Dextrose 50%-Water Inj 50 Ml Syringe) 50 ml IVP X1 ONE Stop: 11/20/24 08:03 Dextrose (Dextrose 50%-Water Inj 50 Ml Syringe) 25 ml IVP X1 ONE Stop: 11/20/24 08:07 Last Admin: 11/20/24 08:21 Dose: 25 ml Dextrose (Dextrose 50%-Water Inj 50 Ml Syringe) 50 ml IVP X1 ONE Stop: 11/20/24 20:59 Last Admin: 11/20/24 21:25 Dose: 50 ml Dextrose (Dextrose 50%-Water Inj 50 Ml Syringe) 25 ml IVP X1 ONE Stop: 11/21/24 06:48 Last Admin: 11/21/24 07:17 Dose: 25 ml Diphenhydramine HCl (Diphenhydramine Inj 50 Mg/Ml Vial) 25 mg IVP PRNMRX1 PRN PRN Reason: MODERATE SEDATION Stop: 11/15/24 20:24 Etomidate (Etomidate Inj 2 Mg/Ml Vial 10 Ml) 20 mg IVP X1 ONE Stop: 11/27/24 18:17 Last Admin: 11/27/24 18:45 Dose: 20 mg Fentanyl Citrate (Fentanyl Cit Inj 50 Mcg/Ml Amp 2ml) 50 mcg IVP Q2M PRN PRN Reason: MODERATE SEDATION Stop: 11/15/24 20:24 Folic Acid (Folic Acid 1 Mg Tablet) 2.5 mg PO DAILY [facility] Stop: 12/14/24 08:59 Last Admin: 11/22/24 08:37 Dose: 2.5 mg Folic Acid (Folic Acid 1 Mg Tablet) 2.5 mg PO QDAY [facility] Stop: 12/23/24 08:59 Last Admin: 11/26/24 08:03 Dose: 2.5 mg Folic Acid (Folic Acid 1 Mg Tablet) 2.5 mg NG QDAY [facility] Stop: 12/23/24 08:59 Last Admin: 11/27/24 08:32 Dose: 2.5 mg Glucagon (Glucagon Inj 1 Mg Vial) 1 mg IM Q15MIN PRN PRN Reason: BG <70, and no IV access Hydromorphone HCl (Hydromorphone Inj 2 Mg/Ml Vial) 0.25 mg IVP X1 ONE Stop: 11/14/24 01:31 Last Admin: 11/14/24 01:36 Dose: 0.25 mg Hydromorphone HCl (Hydromorphone Inj 2 Mg/Ml Vial) 0.5 mg IVP Q6HR PRN PRN Reason: SEVERE PAIN 7-10 Stop: 12/02/24 11:00 Last Admin: 11/27/24 11:47 Dose: 0.5 mg Lactated Ringer's (Lactated Ringers) 1,000 mls @ 75 mls/hr IV .[id number] [facility] Stop: 12/13/24 14:59 Last Admin: 11/14/24 05:32 Dose: 75 mls/hr Octreotide Acetate 1,000 mcg/ (Sodium Chloride) 102 mls @ 5.1 mls/hr IV .Q20H [facility]; Protocol Stop: 11/18/24 15:02 Last Admin: 11/17/24 23:56 Dose: 50 mcg/hr, 5.1 mls/hr Ceftriaxone Sodium/Dextrose (Rocephin/D5w 1gm Iv Premix) 1 gm in 50 mls @ 100 mls/hr IV QDAY [facility] Stop: 11/20/24 15:09 Last Admin: 11/14/24 09:05 Dose: 100 mls/hr Octreotide Acetate 1,000 mcg/ (Sodium Chloride) 102 mls @ 5.1 mls/hr IV .Q20H [facility]; Protocol Stop: 11/14/24 11:14 Last Admin: 11/13/24 16:20 Dose: 50 mcg/hr, 5.1 mls/hr Albumin Human (Albuminex 25% Ivpb) 50 gm in 200 mls @ 200 mls/hr IV BID [facility] Stop: 11/18/24 21:59 Albumin Human (Albuminex 25% Ivpb) 25 gm in 100 mls @ 100 mls/hr IV BID [facility] Stop: 12/14/24 08:59 Albumin Human (Albuminex 25% Ivpb) 50 gm in 200 mls @ 100 mls/hr IV BID [facility] Stop: 11/18/24 22:59 Last Admin: 11/18/24 21:28 Dose: 100 mls/hr Magnesium Sulfate (Magnesium Sulfate Ivpb) 2 gm in 50 mls @ 25 mls/hr IV X1 ONE Stop: 11/15/24 09:33 Last Admin: 11/15/24 09:50 Dose: 25 mls/hr Ceftriaxone Sodium/Dextrose (Rocephin/D5w 1gm Iv Premix) 1 gm in 50 mls @ 100 mls/hr IV QDAY [facility] Stop: 11/22/24 10:09 Last Admin: 11/18/24 08:49 Dose: 100 mls/hr Sodium Chloride (Ns) 1,000 mls @ 80 mls/hr IV .[id number] [facility] Stop: 11/16/24 00:23 Last Admin: 11/15/24 11:59 Dose: 80 mls/hr Albumin Human (Albuminex 25% Ivpb) 25 gm in 100 mls @ 100 mls/hr IV QDAY [facility] Stop: 12/21/24 09:50 Last Admin: 11/22/24 01:54 Dose: Not Given Albumin Human (Albuminex 25% Ivpb) 25 gm in 100 mls @ 100 mls/hr IV QDAY [facility] Stop: 12/21/24 09:50 Last Admin: 11/22/24 01:54 Dose: Not Given Albumin Human (Albuminex 25% Ivpb) 25 gm in 100 mls @ 100 mls/hr IV BID [facility]; Protocol Stop: 11/25/24 23:00 Last Admin: 11/25/24 20:25 Dose: 100 mls/hr Albumin Human (Albuminex 25% Ivpb) 25 gm in 100 mls @ 100 mls/hr IV BID@1000,2200 [facility]; Protocol Stop: 11/25/24 23:00 Last Admin: 11/25/24 21:34 Dose: 100 mls/hr Octreotide Acetate 1,000 mcg/ (Sodium Chloride) 102 mls @ 5.1 mls/hr IV .Q20H [facility]; Protocol Stop: 11/26/24 16:23 Last Admin: 11/26/24 17:08 Dose: Not Given Ceftriaxone Sodium/Dextrose (Rocephin/D5w 1gm Iv Premix) 1 gm in 50 mls @ 100 mls/hr IV QDAY [facility] Stop: 11/29/24 13:29 Last Admin: 11/27/24 08:28 Dose: 100 mls/hr Albumin Human (Albuminex 25% Ivpb) 25 gm in 100 mls @ 100 mls/hr IV BID [facility] Stop: 12/26/24 08:59 Albumin Human (Albuminex 25% Ivpb) 25 gm in 100 mls @ 100 mls/hr IV QDAY [facility] Stop: 12/26/24 10:29 Albumin Human (Albuminex 25% Ivpb) 25 gm in 100 mls @ 100 mls/hr IV BID [facility] Stop: 12/26/24 08:59 Last Admin: 11/27/24 08:31 Dose: 100 mls/hr Ceftriaxone Sodium 2 gm/ (Sodium Chloride) 50 mls @ 100 mls/hr IV QDAY [facility] Stop: 12/04/24 17:55 Last Admin: 11/28/24 08:59 Dose: 100 mls/hr Piperacillin Sod/Tazobactam (Sod 4.5 gm/ Sodium Chloride) 100 mls @ 200 mls/hr IV Q8HR [facility]; Protocol Stop: 12/04/24 21:59 Last Admin: 11/28/24 14:43 Dose: 200 mls/hr Fluconazole (Diflucan/Ns Ivpb) 400 mg in 200 mls @ 100 mls/hr IV X1 ONE Stop: 11/28/24 19:42 Last Admin: 11/28/24 18:12 Dose: 100 mls/hr Vancomycin HCl (Vancomycin/Water 1250 Mg Ivpb) 250 mls @ 120 mls/hr IV X1 ONE Stop: 11/28/24 20:19 Last Admin: 11/28/24 19:25 Dose: 120 mls/hr Insulin Human Lispro (Insulin Lispro (Admelog) 1 Unit/0.01 Ml Unit) 0 unit SC Q6HR [facility]; Protocol Stop: 12/13/24 17:59 Last Admin: 11/16/24 05:28 Dose: 2 unit Insulin Human Lispro (Insulin Lispro (Admelog) 1 Unit/0.01 Ml Unit) 0 unit SC AC [facility]; Protocol Stop: 12/16/24 10:14 Last Admin: 11/27/24 17:47 Dose: 2 unit Insulin Human Regular (Insulin Hum Regular 1 Unit/0.01 Ml (Per Unit)) 5 unit IV X1 ONE Stop: 11/20/24 08:03 Last Admin: 11/20/24 08:26 Dose: 5 unit Insulin Human Regular (Insulin Hum Regular 1 Unit/0.01 Ml (Per Unit)) 5 unit IV X1 ONE Stop: 11/20/24 20:59 Last Admin: 11/20/24 21:26 Dose: 5 unit Insulin Human Regular (Insulin Hum Regular 1 Unit/0.01 Ml (Per Unit)) 5 unit IV X1 ONE Stop: 11/21/24 06:47 Last Admin: 11/21/24 07:22 Dose: 5 unit Lactulose (Lactulose Syrup 20 Gm/30 Ml Udc) 20 gm PO X1 ONE; Protocol Stop: 11/13/24 13:02 Last Admin: 11/13/24 13:15 Dose: 20 gm Lactulose (Lactulose Syrup 20 Gm/30 Ml Udc) 30 gm PO TID [facility]; Protocol Stop: 12/13/24 21:59 Lactulose (Lactulose Syrup 10 Gm/15 Ml) 200 gm SC TID [facility]; Protocol Stop: 12/13/24 21:59 Last Admin: 11/14/24 05:33 Dose: 200 gm Lactulose (Lactulose Syrup 20 Gm/30 Ml Udc) 20 gm PO QID [facility]; Protocol Stop: 12/14/24 11:59 Last Admin: 11/17/24 05:16 Dose: 20 gm Lactulose (Lactulose Syrup 20 Gm/30 Ml Udc) 20 gm PO BID [facility]; Protocol Stop: 12/17/24 20:59 Last Admin: 11/19/24 08:11 Dose: Not Given Lactulose (Lactulose Syrup 20 Gm/30 Ml Udc) 20 gm PO TID [facility]; Protocol Stop: 12/19/24 13:59 Last Admin: 11/26/24 05:14 Dose: 20 gm Lactulose (Lactulose Syrup 20 Gm/30 Ml Udc) 30 gm PO TID [facility]; Protocol Stop: 12/26/24 13:59 Last Admin: 11/27/24 05:28 Dose: 30 gm Lactulose (Lactulose Syrup 20 Gm/30 Ml Udc) 30 gm NG TID [facility]; Protocol Stop: 12/26/24 13:59 Last Admin: 11/27/24 15:26 Dose: Not Given Lactulose (Lactulose Syrup 10 Gm/15 Ml) 200 gm SC X1 ONE; Protocol Stop: 11/27/24 14:00 Last Admin: 11/27/24 15:02 Dose: 200 gm Lactulose (Lactulose Syrup 20 Gm/30 Ml Udc) 30 gm NG X1 ONE; Protocol Stop: 11/27/24 16:16 Last Admin: 11/27/24 16:26 Dose: 30 gm Lactulose (Lactulose Syrup 20 Gm/30 Ml Udc) 30 gm PO X1 ONE; Protocol Stop: 11/27/24 17:58 Last Admin: 11/27/24 18:37 Dose: Not Given Lactulose (Lactulose Syrup 20 Gm/30 Ml Udc) 60 gm NG TID [facility]; Protocol Stop: 12/27/24 21:59 Last Admin: 11/28/24 14:43 Dose: 60 gm Lidocaine (Lidocaine 5% 1 Patch) 1 patch TOP X1 ONE Stop: 11/14/24 06:22 Last Admin: 11/14/24 06:27 Dose: 1 patch Lidocaine (Lidocaine 5% 1 Patch) 1 patch TOP X1 ONE Stop: 11/15/24 08:35 Last Admin: 11/15/24 09:49 Dose: 1 patch Linezolid (Linezolid 600 Mg Tablet) 600 mg PO BID [facility] Stop: 11/25/24 11:14 Last Admin: 11/25/24 08:17 Dose: 600 mg Metoclopramide HCl (Metoclopramide Inj 5 Mg/Ml Vial 2 Ml) 10 mg IVP X1 ONE; Protocol Stop: 11/28/24 22:05 Last Admin: 11/28/24 23:00 Dose: 10 mg Midazolam HCl (Midazolam Inj 1 Mg/Ml Vial 2 Ml) 2 mg IVP Q2M PRN PRN Reason: Moderate Sedation Stop: 11/15/24 20:24 Midazolam HCl (Midazolam Inj 1 Mg/Ml Vial 2 Ml) 2 mg IVP X1 ONE Stop: 11/28/24 00:54 Last Admin: 11/28/24 01:00 Dose: 2 mg Midazolam HCl (Midazolam Inj 1 Mg/Ml Vial 2 Ml) 4 mg IVP Q1HR PRN PRN Reason: AGITATION OR ANXIETY Stop: 12/03/24 01:33 Last Admin: 11/28/24 07:31 Dose: 4 mg Midodrine (Midodrine 5 Mg Tablet) 5 mg PO TID [facility] Stop: 12/14/24 08:29 Last Admin: 11/14/24 09:03 Dose: 5 mg Midodrine (Midodrine 5 Mg Tablet) 5 mg PO TID [facility] Stop: 12/14/24 08:29 Last Admin: 11/17/24 05:16 Dose: 5 mg Midodrine (Midodrine 5 Mg Tablet) 10 mg PO TID [facility] Stop: 12/17/24 13:59 Last Admin: 11/27/24 05:30 Dose: 10 mg Pantoprazole Sodium (Pantoprazole 40 Mg Tablet) 40 mg PO BID [facility] Stop: 12/13/24 20:59 Pantoprazole Sodium (Pantoprazole Inj 40 Mg Vial) 40 mg IVP BID [facility] Stop: 12/13/24 20:59 Last Admin: 11/19/24 08:09 Dose: 40 mg Pantoprazole Sodium (Pantoprazole 40 Mg Tablet) 40 mg PO BID [facility]; Protocol Stop: 12/19/24 20:59 Last Admin: 11/22/24 08:38 Dose: 40 mg Pantoprazole Sodium (Pantoprazole 40 Mg Tablet) 40 mg PO BID [facility] Stop: 12/22/24 20:59 Last Admin: 11/26/24 20:31 Dose: 40 mg Phytonadione (Phytonadione Inj 10 Mg/Ml Amp) 10 mg SC X1 ONE Stop: 11/23/24 11:01 Last Admin: 11/23/24 11:38 Dose: 10 mg Phytonadione (Phytonadione Inj 10 Mg/Ml Amp) 10 mg SC X1 ONE Stop: 11/25/24 12:08 Last Admin: 11/25/24 12:20 Dose: 10 mg Polyethylene Glycol/Electrolytes ([place]/Nahco3/Carmine/Peg (Golytely) 4,000 Ml Btl) 4,000 ml NG X1 ONE Stop: 11/28/24 18:39 Last Admin: 11/28/24 19:25 Dose: 1 btl Potassium Chloride (Potassium Chloride 10% 20 Meq/15 Ml Udc) 20 meq PO X1 ONE Stop: 11/15/24 07:30 Last Admin: 11/15/24 09:50 Dose: 20 meq Potassium Chloride (Potassium Chloride 20 Meq Tabcr) 20 meq PO X1 ONE Stop: 11/16/24 07:35 Last Admin: 11/16/24 09:11 Dose: 20 meq Potassium Chloride (Potassium Chloride 10% 20 Meq/15 Ml Udc) 40 meq GT X1 ONE Stop: 11/28/24 07:31 Last Admin: 11/28/24 08:57 Dose: 40 meq Potassium Chloride (Potassium Chloride 10% 20 Meq/15 Ml Udc) 40 meq GT X1 ONE Stop: 11/29/24 06:45 Last Admin: 11/29/24 07:36 Dose: 40 meq Rifaximin (Rifaximin 550 Mg Tablet) 550 mg PO BID [facility] Stop: 11/20/24 20:59 Last Admin: 11/20/24 08:07 Dose: 550 mg Rifaximin (Rifaximin 550 Mg Tablet) 550 mg PO BID [facility] Stop: 11/30/24 08:59 Last Admin: 11/26/24 20:32 Dose: 550 mg Rocuronium [place] (Rocuronium Inj 10 Mg/Ml Vial 10 Ml) 90 mg IV X1 ONE Stop: 11/27/24 18:17 Last Admin: 11/27/24 18:45 Dose: 90 mg Sodium Chloride (Sodium Chloride Rt Karis 0.9% 3 Ml Nebu) 3 ml INH PRN PRN PRN Reason: SOLN Stop: 12/20/24 20:57 Last Admin: 11/20/24 21:21 Dose: 3 ml Sodium Chloride (Sodium Chloride Rt 10% 15 Ml Nebu) 5 ml INH X1 ONE Stop: 11/27/24 21:44 Last Admin: 11/28/24 05:21 Dose: Not Given Sodium Polystyrene Sulfonate (Sod Polystyrene Sulfon Susp 15 Gm/60 Ml Btl) 15 gm PO X1 ONE Stop: 11/20/24 08:25 Last Admin: 11/20/24 08:37 Dose: 15 gm Sodium Polystyrene Sulfonate (Sod Polystyrene Sulfon Susp 15 Gm/60 Ml Btl) 30 gm PO X1 ONE Stop: 11/20/24 21:02 Last Admin: 11/20/24 21:25 Dose: 30 gm Sodium Polystyrene Sulfonate (Sod Polystyrene Sulfon Susp 15 Gm/60 Ml Btl) 30 gm PO X1 ONE Stop: 11/21/24 08:07 Last Admin: 11/21/24 09:09 Dose: 30 gm Assessment & Plan Plan 54-year-old female with end-stage liver disease, acute hepatic encephalopathy, metabolic acidosis, and worsening renal indices. Reconsulted for initiation of renal replacement therapy due to severe hyperammonemia and metabolic derangements. #Acute Kidney Injury (LILY), multifactorial likely hepatorenal vs ATN Creatinine 1.6, BUN 45, oliguric. Worsening metabolic acidosis and elevated ammonia. Plan: * Initiate dialysis today (for ammonia clearance and metabolic correction) * Monitor I/O and hemodynamics closely * Renal panel every 6 during dialysis * Daily renal panel and ABGs * Avoid nephrotoxins, #Severe Hyperammonemia (NH3 339) Likely secondary to hepatic failure; refractory to lactulose and rifaximin. Plan: * Dialysis today for ammonia clearance * Continue rifaximin 550 mg BID * Trend ammonia levels daily * Maintain airway protection #High Anion Gap Metabolic Acidosis (AG 24) pH 7.33, HCO3 20, pCO2 38. Plan: * Correct acidosis with dialysis * Continue ventilator support; optimize gas exchange * Monitor ABG and lactate trends Other active problems: #Left base pneumonia, likely aspiration #Acute decompensated liver failure #Esophageal varices #Tube feedings #Hypercalcemia #Hypomagnesemia #Hyper natremia #T2DM #Pancytopenia #VRE, treated completed #Aspiration pneumonia Management per ICU team ----- Plan discussed with attending physician Dr. Yenny Raya MD PGY-1 Internal Medicine Attending Provider Attestation/Addendum Patient seen and examined with resident physician Dr. Raya. Note reviewed, agree with findings and recommendations. Patient with significant hepatic encephalopathy and ammonia level 333. Currently on ventilator. Patient with hepatorenal syndrome type I. Urine output minimal. Electrolyte imbalance noted. Decided to proceed with dialysis. patient currently seen on dialysis. Low platelets noted. Hemodialysis for 4 hours, Blood flow 250,2K, ultrafiltration 0 L, Epogen 6000, no heparin ordered. Plan of care discussed with the dialysis nurse. Please see dialysis flowsheet for further details. care discussed with Dr. Hensley. Thank you Dr. Hensley for allowing me to participate in the care of Ms. Pizarro. Prognosis guarded.
[2024-11-29 10:43] LABS: Hepatitis A Antibody IgM Non Reactive (Non React); Hepatitis B Core Antibody IgM Non Reactive (Non React); Hepatitis B Surface Ab NonReact(Not Immune) (Immune); Hepatitis B Surface Antigen Non Reactive (Non React); Hepatitis C Antibody Non Reactive (Non React)
[2024-11-29] MEDS: LACTOBACILLUS RHAMNOSUS 1 CAP 2 CAP PO (11:57)
--- NOTE | 2024-11-29 13:45 | PD.INTPROC ---
PROCEDURES: Procedure Date / Time 11/30/24 0638 Central Line Placement Right Femoral: Indication(s): other (Emergent HD) Informed consent obtained: obtained from surrogate decision maker Time out done, and the following verified: correct patient, side and site, procedure, patient position and implants and/or equipment Patient placed on monitor/pulse ox: Yes Hand Hygiene: soap & water Max Sterile Barrier Techniques used: cap, mask, sterile gown, sterile gloves and sterile full body drape Central line prep: Chlorhexidine scrub Local anesthesia used: lidocaine 1% Amount of anesthesia used (mL): 5 Ultrasound used for placement: Yes Sterile Technique if Ultrasound used, including sterile gel: yes Central line lumen inserted: triple Post procedure: sutured in place, good blood return, all ports aspirated, flushed, capped and sterile dressing applied Post procedure x-ray: other (NA) Patient tolerated procedure: well and no complications EBL(ml): 3 Complications: none Procedure comment: Proceed with HD
--- NOTE | 2024-11-29 16:19 | PC.SS ---
Update: Patient is intubated. Not receiving sedation. Receiving 1st session of dialysis. Not established with outpatient dialysis. Afebrile. Plan to begin tube feedings today. Dr. Ramon consulting.
[2024-11-29] MEDS: EPOETIN ALFA-EPBX INJ 10,000 UNIT/ML VIAL (NON-ESRD) 10000 UNIT SC (17:55)
[2024-11-29] MEDS: HEPARIN SOD INJ 1000 UNIT/ML VIAL 10 ML 3000 UNIT INDWELLCAT (18:12)
--- NOTE | 2024-11-29 21:02 | PD.IMPROG ---
Documentation for date of: 11/29/24 Subjective Subjective Interval history: Patient remains mechanically ventilated Internal medicine's team still working on a transfer for a possible liver transplant evaluation No acceptance yet Exam Vital Signs Temp Pulse Resp BP Pulse Ox O2 Del Method O2 Flow Rate 98.0 F 88 16 109/66 100 Mechanical Ventilation 35 11/29/24 18:37 11/29/24 18:37 11/29/24 18:37 11/29/24 18:37 11/29/24 18:37 11/29/24 16:00 11/29/24 14:16 FiO2 35 11/29/24 18:37 Objective Labs 11/29/24 04:39 11/29/24 04:39 Labs: Laboratory Results - last 24 hr 11/27/24 11/28/24 11/28/24 09:04 22:22 23:27 WBC 1.8 L RBC 1.87 L* Hgb 6.3 L* Hct 18.6 L* MCV 100 MCH 33.7 MCHC 33.9 RDW Std Deviation 67.9 H Plt Count 17 L* D Neut % (Auto) 76 Lymph % (Auto) 19 Lipscomb % (Auto) 3 Eos % (Auto) 1 Baso % (Auto) 0 Neut # (Auto) 1.4 L Lymph # (Auto) 0.4 L Lipscomb # (Auto) 0.1 Eos # (Auto) 0.0 Baso # (Auto) 0.0 Immature Gran # (Auto) 0.01 H Absolute Nucleated RBC 0.00 Immature Gran % 1 H Nucleated RBC % 0 Smear Path Review Sent to Pathologist PT INR APTT Fibrinogen Puncture Site ABG pH ABG pCO2 ABG pO2 ABG HCO3 ABG O2 Saturation ABG Base Excess FiO2 Sodium 154 H Potassium 3.2 L Chloride 111 H Carbon Dioxide 21.8 Anion Gap 21 H BUN 37 H Creatinine 1.8 H Estim Creat Clear Calc 32.2 L eGFR 33 L BUN/Creatinine Ratio 21 H Glucose 202 H Calculated Osmolality 320 H Calcium 11.1 H Corrected Calcium 11.1 H Phosphorus Magnesium Total Bilirubin 7.6 H D AST 25 ALT 12 Alkaline Phosphatase 37 L Ammonia Total Protein 7.7 Albumin 5.7 H Globulin 2.0 L Albumin/Globulin Ratio 2.9 H Ur Random Sodium < 15.0 L Ur Random Potassium 11 L Ur Random Chloride < 20.0 L Hepatitis A IgM Ab Hep Bs Antigen Hep Bs Antibody Hep B Core IgM Ab Hepatitis C Antibody Misc Test Result Platelets confirmed Blood Type O Positive Antibody Screen NEGATIVE Crossmatch See Detail Blood Bank Wristband ID Yes Blood Bank Comment PLATP Ready 11/29/24 11/29/24 04:05 04:39 WBC 2.4 L RBC 2.40 L Hgb 7.9 L D Hct 23.5 L MCV 98 MCH 32.9 MCHC 33.6 RDW Std Deviation 60.0 H Plt Count 12 L* D Neut % (Auto) 80 Lymph % (Auto) 14 [place]comb % (Auto) 4 Eos % (Auto) 0 Baso % (Auto) 0 Neut # (Auto) 1.9 Lymph # (Auto) 0.3 L Lipscomb # (Auto) 0.1 Eos # (Auto) 0.0 Baso # (Auto) 0.0 Immature Gran # (Auto) 0.03 H Absolute Nucleated RBC 0.00 Immature Gran % 1 H Nucleated RBC % 0 Smear Path Review PT 20.0 H D INR 2.0 H APTT 45.5 H D Fibrinogen 145 L Puncture Site Right Radial ABG pH 7.33 L ABG pCO2 38 ABG pO2 127 H D ABG HCO3 20 ABG O2 Saturation 99 H ABG Base Excess -5 L FiO2 35 Sodium 153 H Potassium 3.3 L Chloride 108 H Carbon Dioxide 20.8 Anion Gap 24 H BUN 45 H Creatinine 1.6 H Estim Creat Clear Calc 36.2 L eGFR 38 L BUN/Creatinine Ratio 28 H Glucose 184 H Calculated Osmolality 320 H Calcium 11.0 H Corrected Calcium 11.0 H Phosphorus 3.3 Magnesium 2.7 H Total Bilirubin 7.9 H AST 24 ALT 15 Alkaline Phosphatase 41 L Ammonia 339 H* Total Protein 7.7 Albumin 5.7 H Globulin 2.0 L Albumin/Globulin Ratio 2.9 H Ur Random Sodium Ur Random Potassium Ur Random Chloride Hepatitis A IgM Ab Non Reactive Hep Bs Antigen Non Reactive Hep Bs Antibody NonReact(Not Immune) L Hep B Core IgM Ab Non Reactive Hepatitis C Antibody Non Reactive Misc Test Result Platelets confirmed Blood Type Antibody Screen Crossmatch Blood Bank Wristband ID Blood Bank Comment Impressions Impression: Acute respiratory failure requiring endotracheal intubation mechanical ventilation End-stage liver disease Hepatic metabolic encephalopathy Continue supportive care ABG Interpretation ABG results: 11/27/24 11/27/24 11/28/24 14:52 21:14 04:57 ABG pH 7.31 L 7.34 L 7.36 ABG pCO2 44 39 34 ABG pO2 91 154 H D 168 H ABG HCO3 22 21 19 L ABG O2 Saturation 98 100 H 100 H ABG Base Excess -4 L -5 L -6 L 11/29/24 04:05 ABG pH 7.33 L ABG pCO2 38 ABG pO2 127 H D ABG HCO3 20 ABG O2 Saturation 99 H ABG Base Excess -5 L Assessment & Plan A&P Narrative uti , mild with vre as only germ found po linezolid ok for this for total of 7d, cirrhosis, etoh related home at your discretion.if abd pain persists, then evaluate ascites will see again prn Time Spent With Patient Time: Total time spent is greater than 50% in coordination of care (as documented) at patient's floor/unit and/or counseling patient:
[2024-11-29] MEDS: VANCOMYCIN/D5W 1,250 MG IVPB 250 ML 120 MG IV (21:56)
[2024-11-30] VITALS (84 sets, daily range): BP systolic 99–124; BP diastolic 56–83; PULSE 76–95; RESP 10–21; TEMP 36.3–37.2; O2SAT 100
[2024-11-30] MEDS: INSULIN LISPRO (AdmeLOG) 1 UNIT/0.01 ML UNIT SC ×2 (05:30→17:22)
[2024-11-30 06:00] LABS: Basophils # (Auto) 0.0 Thou/mm3 (0.0-0.2); Basophils % (Auto) 0 % (0-2.5); Eosinophils # (Auto) 0.0 Thou/mm3 (0.0-0.5); Eosinophils % (Auto) 0 % (0-10); Immature Granulocytes Auto 0.03 Thou/mm3 (0.00-0.00); Lymphocytes # (Auto) 0.4 Thou/mm3 (1.0-4.8); Lymphocytes % (Auto) 16 % (10-50); Mean Corpuscular HGB Conc 34.9 g/dl (31.0-37.0); Mean Corpuscular Hemoglobin 33.5 pg (25.0-35.0); Mean Corpuscular Volume 96 fL (80-100); Monocytes # (Auto) 0.1 Thou/mm3 (0.0-0.8); Monocytes % (Auto) 4 % (0-12); Neutrophils # (Auto) 2.0 Thou/mm3 (1.8-7.7); Neutrophils % (Auto) 79 % (37-80); Nucleated Red Blood Cell # 0.00 Thou/mm3 (0.00-0.00); Nucleated Red Blood Cell % 0 /100 WBC (0); RDW Standard Deviation 59.7 fL (36.4-46.3); Red Blood Count 2.03 Miln/mm3 (4.00-5.20); White Blood Count 2.5 Thou/mm3 (3.6-11.0)
[2024-11-30 06:17] LABS: INR 2.5 (0.9-1.3); Partial Thromboplastin Time 48.5 Seconds (22.0-36.0); Prothrombin Time 24.5 Seconds (9.0-12.2)
[2024-11-30 06:33] LABS: Alanine Aminotransferase 14 U/L (10-49); Albumin, Serum 4.9 gm/dL (3.5-5.0); Albumin/Globulin Ratio 2.6 (1.2-2.2); Alkaline Phosphatase 39 U/L (46-116); Anion Gap 19 (7-16); Aspartate Amino Transferase 27 U/L (0-34); BUN/Creatinine Ratio 20 Ratio (12-20); Bilirubin,Total 8.7 mg/dL (0.3-1.2); Blood Urea Nitrogen 24 mg/dL (9-23); Calcium 9.8 mg/dL (8.3-10.6); Calcium (Corrected) 9.8 mg/dL (8.5-10.1); Carbon Dioxide 23.6 mMol/L (20.0-31.0); Chloride 101 mMol/L (98-107); Creatinine (Component) 1.2 mg/dL (0.6-1.3); Estimated Creatinine Clearance 49.0 mL/min (>60); Globulin 1.9 gm/dL (2.3-3.5); Glucose 179 mg/dL (74-106); Magnesium 2.1 mg/dL (1.6-2.6); Osmolality,Calculated 294 (275-295); Phosphorous 2.1 mg/dL (2.4-5.1); Potassium 3.2 mMol/L (3.4-5.1); Sodium 144 mMol/L (136-145); Total Protein 6.8 gm/dL (5.7-8.2); eGFR 54 See Note
[2024-11-30 06:42] LABS: Hematocrit 19.5 % (36.0-46.0); Hemoglobin 6.8 g/dL (12.0-16.0); Platelet Count 17 Thou/mm3 (140-440)
[2024-11-30 08:58] LABS: Slide Review Platelets confirmed
[2024-11-30] MEDS: FOLIC ACID 1 MG TABLET 2.5 MG NG (09:04)
[2024-11-30] MEDS: MEROPENEM IV ×2 (09:05→21:18)
[2024-11-30] MEDS: SODIUM CHLORIDE 0.9% IV ×2 (09:05→21:18)
[2024-11-30] MEDS: FLUCONAZOLE/NS 200 MG IVPB 200 MG/100 ML BAG 100 MG IV (09:05)
[2024-11-30] MEDS: THIAMINE INJ 100 MG/ML VIAL 2 ML IVP (09:06)
[2024-11-30] MEDS: INSULIN DEGLUDEC 5 UNIT/0.05 ML (PER 5 UNITS) 8 UNIT SC (09:08)
--- NOTE | 2024-11-30 09:44 | CHAP ---
Gave a silent prayer for patient due to cautionary illness and also nurse in the room.
--- NOTE | 2024-11-30 09:44 | CHAP ---
Addendum entered by Seth Mcginnis 11/30/24 11:22: I inadvertently recorded the visit a second time. Original Note: Nurse in room. Said a silent prayer by the door.
--- NOTE | 2024-11-30 09:46 | PC.NURSE ---
INITIATION OF TRANSFUSION OF 2 UNITS OF PRBC'S PER MD ORDER, UF GOAL INCREASED TO ACCOUNT TOLERATED, WILL CONT. TO MONITOR
--- NOTE | 2024-11-30 09:46 | PD.INTPROG ---
Documentation for date of: 11/30/24 Subjective Subjective Interval history: Afebrile overnight. Tolerated HD without pressors yesterday. Repeat treatment ongoing. Patient in no distress. She is still only grimacing to pain and coughing intermittently. No opening eyes. Tolerating TF. 300 cc output from the rectal tube and 200cc UOP form [place] and incontinence X2. Critical Care Note Critical care time (min.): 35 Exam Vital Signs Temp Pulse Resp BP Pulse Ox O2 Del Method O2 Flow Rate 97.5 F 91 16 104/66 100 Mechanical Ventilation 35 11/30/24 09:36 11/30/24 09:36 11/30/24 09:36 11/30/24 09:36 11/30/24 09:36 11/29/24 16:00 11/29/24 14:16 FiO2 35 11/30/24 07:57 Narrative Exam GEN: NAD, off sedation, jaundice and anasarca HEENT: PERRL, incterus, downward gaze but conjugate, ETT in place 20 at the teeth NECK: RIJ CVC dressing C/D/I CVS: S1/S2+ RRR no R/M/G PULM: CTA bilaterally ABD: soft/ ND/ BS+/ NT to palpation EXT: Anasarca SKIN: Jaundice NEURO: withdraws all limbs to pain, cough/ gag present, not opening eyes spontaneously/ no movement Physical Exam Completion Physical Exam Complete?: Yes Objective - Veterinary Nurse Labs 11/30/24 04:50 11/30/24 04:50 Labs: Laboratory Results - last 24 hr 11/27/24 11/29/24 11/30/24 09:04 04:39 04:50 WBC 2.5 L RBC 2.03 L Hgb 6.8 L* Hct 19.5 L* MCV 96 MCH 33.5 MCHC 34.9 RDW Std Deviation 59.7 H Plt Count 17 L* D Neut % (Auto) 79 Lymph % (Auto) 16 [place] % (Auto) 4 Eos % (Auto) 0 Baso % (Auto) 0 Neut # (Auto) 2.0 Lymph # (Auto) 0.4 L [place] # (Auto) 0.1 Eos # (Auto) 0.0 Baso # (Auto) 0.0 Immature Gran # (Auto) 0.03 H Absolute Nucleated RBC 0.00 Immature Gran % 1 H Nucleated RBC % 0 PT 24.5 H D INR 2.5 H APTT 48.5 H Sodium 144 Potassium 3.2 L Chloride 101 Carbon Dioxide 23.6 Anion Gap 19 H BUN 24 H Creatinine 1.2 Estim Creat Clear Calc 49.0 L eGFR 54 L BUN/Creatinine Ratio 20 Glucose 179 H Calculated Osmolality 294 Calcium 9.8 Corrected Calcium 9.8 Phosphorus 2.1 L Magnesium 2.1 Total Bilirubin 8.7 H D AST 27 ALT 14 Alkaline Phosphatase 39 L Total Protein 6.8 Albumin 4.9 D Globulin 1.9 L Albumin/Globulin Ratio 2.6 H Hepatitis A IgM Ab Non Reactive Hep Bs Antigen Non Reactive Hep Bs Antibody NonReact(Not Immune) L Hep B Core IgM Ab Non Reactive Hepatitis C Antibody Non Reactive Misc Test Result Platelets confirmed Blood Type O Positive Antibody Screen NEGATIVE Crossmatch See Detail Blood Bank Wristband ID Yes Blood Bank Comment PLATP Ready 11/30/24 08:05 WBC RBC Hgb Hct MCV MCH MCHC RDW Std Deviation Plt Count Neut % (Auto) Lymph % (Auto) [place] % (Auto) Eos % (Auto) Baso % (Auto) Neut # (Auto) Lymph # (Auto) [place] # (Auto) Eos # (Auto) Baso # (Auto) Immature Gran # (Auto) Absolute Nucleated RBC Immature Gran % Nucleated RBC % PT INR APTT Sodium Potassium Chloride Carbon Dioxide Anion Gap BUN Creatinine Estim Creat Clear Calc eGFR BUN/Creatinine Ratio Glucose Calculated Osmolality Calcium Corrected Calcium Phosphorus Magnesium Total Bilirubin AST ALT Alkaline Phosphatase Total Protein Albumin Globulin Albumin/Globulin Ratio Hepatitis A IgM Ab Hep Bs Antigen Hep Bs Antibody Hep B Core IgM Ab Hepatitis C Antibody Misc Test Result Blood Type O Positive Antibody Screen NEGATIVE Crossmatch See Detail Blood Bank Wristband ID Yes Blood Bank Comment Assessment & Plan Additional Plan Additional Plan: 54 y/o F with PMHx of decompensated alcoholic cirrhosis (on transplant list), multiple admissions for hepatic encephalopathy, prior variceal bleeding s/p banding, chronic pain, T2DM presents from home with altered mental status, generalized pain, weakness, poor oral intake, and 2 episodes of hematemesis, upgraded to ICU for intubation due to inability to protect airway. Neuro: #Hepatic encephalopathy Dx: - Patient has history of hepatic encephalopathy due to liver cirrhosis. - Per Mother, patient was diagnosed around September 2023 and this is when she stopped completely drinking alcohol as well. - Initial 11/13 ammonia 153, treated with lactulose and rifaximin. - 11/27 patient developed worsening encephalopathy, GCS 7, repeat ammonia 143 , lactulose had been down titrated due to loose stools. - Patient intubated for airway protection. - 11/29 Overnight, less BM's, would not tolerate golytely; ammonia 339 (142) - Bedside ultrasound of eye showed optic nerve diameter ~6.3 mm (N < 5 mm), suspecting possible cerebral edema Rx: - Started dialysis for ammonia elevation, pending EEG read - Per [facility] Broad spectrum abx and golytely. - Now back on lactulose - Ordered Ammonia post HD - Continue Rifaximin 550 BID - Rectal tube in place - Repeat CT head if mentation fails to improve- risk of bleeding with coagulopathy/ thrombocytopenia CVS: No active issues. Pulmonary: #Acute hypoxic respiratory failure #Left base pneumonia, likely aspiration Not able to extubate at this time due to patient's mentation not being appropriate for airway protection. The hepatic encephalopathy is likely contributing to this along with possible seizures vs meningitis vs cerebral edema. Dx: -CXR on 11/27 showed L base consolidation consistent with pneumonia, not seen on previous CXR (11/26). -Likely due to aspiration in setting of decreased GCS. Patient intubated for airway protection. Rx: - Per [facility] for - Fluconazole 200 mg IV qd, Meropenem 2,000 mg IV q12hr, Vancomycin - Blood and sputum cultures- ESBL Kleb oxytoca in sputum, blood remains negative at 48 hours - Maintain intubation until patient able to protect airway GI: #Fulminant Liver Failure i/s/o End-Stage Liver Disease 2/2 Alcoholic Liver Cirrhosis Dx: -Patient has known history of ESLD, with frequent admission for complications related to liver disease. -Per Mother, patient was diagnosed around September 2023 and this is when she stopped completely drinking alcohol as well. -Admitted for hepatic encephalopathy 11/13. -During hospital stay, patient has acutely decompensated, with worsening coagulopathy, hepatic encephalopathy, pancytopenia. -Minimal ascites, not enough for paracentesis on US on 11/21 -11/27 MELD-Na 40, 71.3% 3 month mortality, with PT>63, INR, undetectably high. Child [place] class C: 82% perioperative mortality. -11/29 Maddrey's Discriminant Function forAlcoholic Hepatitis is 49.3 points -> Poor prognosis, may benefit from glucocorticoid therapy -[facility] declined transfer declined from transplant perspective; they asked for Broad spectrum abx and golytely. Rx: - Continuing to treat hepatic encephalopathy and coagulopathy - Avoid hepatically metabolized medications when appropriate - Per [facility] Broad spectrum abx and golytely. - GI consulted, appreciate recommendations - Fluconazole 200 mg IV qd, Meropenem 2,000 mg IV q12hr, Vancomycin - Attempt diagnostic paracentesis if enough fluid is found #Esophageal varices Patient history of varices requiring banding. EGD 11/14/24 showed garde 1 varices, mucosal oozing. - GI consulted, appreciate recs - Octreotide drip - Protonix IV 40mg BID #Tube feedings Patient started on tube feeds due to AMS, inability to eat. Currently intubated. - Dietary consulted, appreciate recommendation - Tube feeds ordered to restart today Renal: #LILY, on temporary dialysis (as above) Ddx: Prerenal dehydration, hepatorenal syndrome, ATN Patient blood pressure and renal function improved with albumin, octreotide, and midodrine. Kidney function has since declined again, despite serum albumin levels elevated to 6.2. Potential ATN due to inability to hepatically metabolize potential nephrotoxins. Dx: -Patient presented with significant LILY, creatinine 2.4 compared to baseline 0.9. -11/29: Cr 1.6 (1.8); still making urine ~55cc/hr overnight -11/30: 200 cc UOP,overnight, HD this AM- 1.5L removed with 2 uPRBC given Rx: - Strict I's and O's - Daily renal function - Renally dose medication - Avoid nephrotoxins #HAGMA DDx: LILY from hepatorenal syndrome, decreased intravascular volume, lactic acidosis. Patient's endstage liver disease appears to be the source of this, causing renal dysfunction, decreasing the ability of the body to rid of acids. Dx: -11/29: AGAP 24, Bicarb 36.2, Rx: -continue to optimize vent and treat hepatic encephalopathy/ uremia #hypercalcemia #hypermagnesemia #hypernatremia DDx: Likely due to lactulose and ensuing BM's Dx: -11/29: Ca 11.0 (11.2), Mag 2.7 (2.8), Na 153 (150) -Sodium being elevated may help possible cerebral edema. Rx: -Will continue to trend e-lytes; -Dialysis 11/29 and 11/30 Endo: #T2DM Dx: -Patient has history of T2DM. A1c 6.0 as of 09/25/24. -11/29 glucose 184 (213) Rx: - Long acting insulin 11 qDaily - ISS Heme/Onc: #Pancytopenia 2/2 likely cirrhosis -Patient has pancytopenia, reqiuring transfusions of platelets and RBCs during hospital stay. -Hemoglobin currently 7.4, platelets 21. Dx: -11/29 Fibrinogen 145 (71) s/p cryoprecipitate x 4 units (fibrinogen goal of 150-200) Rx: - Monitor hemoglobin and platelets - Transfuse as needed, 2 uPRBC with HD today - Transfuse to keep PLT >10k unless invasive procedure #Coagulopathy/ DIC Patient has coagulopathy due to cirrhosis. INR and PTT undetectably high. Noted to have large bruises BUE. Received vitamin K and FFP. - Monitor for signs of blood loss, none presently- hemolysis from DIC - Check fibrinogen again ID: #[email or web address], treatment completed Patient found to have UTI, culture showed VRE. Completed treatment course with linezolid. Has had numerous positive urine cultures for VRE in the past. - Maintain isolation precautions #Aspiration Pneumonia Treat as above -Blood cx's 11/27 NG24 hrs -ET gram stain showed 1+ mixed thad, occasional budding yeast, fungal elements, 2+ wbcs; ET culture ESBL klebsiella oxytoca - Continue on meropenem Disposition: ICU; [facility] denied transfer for Liver transplant 11/28 given AMS/ HE DVT prophylaxis: SCD's GI prophylaxis: Protonix Diet: tube feeds Lines: Peripherals, rectal tube, ET tube Drips: Octreotide Vent: Yes CODE STATUS: Full code Provider Notation Provider Notation: Although this document has been carefully reviewed, there may still be some phonetic and other typographical errors. These errors are purely grammatical due to imperfections in the software program and should not be construed in any way to compromise the substance of the patient's medical care during this visit. Thank you for the opportunity and privilege in assisting you with this patient's care and management.
--- NOTE | 2024-11-30 10:01 | PC.CM ---
Addendum entered by Kacey Mclean RN 11/30/24 19:12: I gave a verbal update to night charge nurse. Addendum entered by Kacey Mclean RN 11/30/24 19:05: 1900 I received a call back from [facility] transfer nurse Dasha. She states Dr Oswald Victor spoke to Dr. May and she has accepted patient. [facility] states they will not proceed without authorization from patient's insurance. I reached out to [employer] phone #[phone] and I spoke [employer]. I presented the information and he asked me to fax paperwork to [phone]. I faxed information at this time. Addendum entered by Kacey Mclean RN 11/30/24 13:34: 1235 I spoke to Anaya with [facility] transplant team. She took information on patient and she verified patient's insurance. She states she will present patient and get back to me. Addendum entered by Kacey Mclean RN 11/30/24 12:02: 1130 I contacted [facility] and I initiated a transfer. I spoke to [facility] transfer nurse and I faxed over information. Original Note: [address] May and he states patient is getting her second HD session today. He does not feel patient will be able to wean off of the vent at this time. He states we can try another facility to see if they would be able to accept patient on a ventilator. 0930I called and spoke to the transfer nurse Moe at [facility]. He states patient has been declined for placement because patient is intubated. He states Dr. Berenice Jones spoke to Dr. May and she let Dr. May know if patient improves and is able to be weaned off the ventilator, they will consider accepting for transfer. They placed patient on hold at this time.
--- NOTE | 2024-11-30 11:16 | ESPR_ITS ---
Documentation for date of: 11/30/24 Subjective Subjective Interval history: Mother is informant Ms. Knight is a 54-year-old lady who has extensive history of liver cirrhosis secondary to alcoholism (under liver transplant team) recurrent admissions for hepatic encephalopathy, upper GI bleed due to varices/banding, chronic pain syndrome, DM presented to the emergency department with 2 episodes of hematemesis going on for the last few days associated with altered mental status generalized pain weakness and poor p.o. intake. Denies any fever or chills. In the ED patient was noted to be hypotensive. She was given gentle IV fluids, albumin started on home midodrine and lactulose. Admitted to telemetry. Nephrology consultation requested in view of LILY. Patient well-known to me from previous admissions. Home medications included vitamin D, furosemide, [place], last close, metformin, methocarbamol, midodrine, Remeron, Protonix, rifaximin, spironolactone. Labs showed hemoglobin 10.3, platelets 30. Sodium 140, potassium 4.5, BUN 29, creatinine 2.4 of note 10/16/2023 her creatinine is 1.0., Calcium 10.8, magnesium 2.3, total bilirubin 6.7, AST 45, ALT 18, alk phos 96, albumin 2.9, urinalysis shows 2+ blood with 20 RBCs. 11/16/2024 patient currently seen in telemetry. Resting comfortably. Labs/medications reviewed. Urine output improving. She has a Liz catheter. Blood pressure 126/73, heart rate 83. WBC 1.8, hemoglobin 7.8, platelets 22. Creatinine improved to 1.6, sodium 144, potassium 3.9. Albumin 4.4. Patient had endoscopy yesterday. Patient in contact isolation for VRE UTI. Did receive IV fluids, albumin. Will continue albumin. Discharge planning per primary team. Did explain to the patient that she will have recurrent hospitalizations for complications from liver cirrhosis. 11/30/2024 patient currently seen in ICU. Intubated, on ventilator. Isolation. Labs and medications reviewed. Ammonia level significantly elevated above heart initiate dialysis yesterday. Currently on conventional hemodialysis as ammonia is dialyzable. Review of Systems Review of Systems ROS Unobtainable: unobtainable due to medical condition and due to endotracheal tube Exam Vital Signs Temp Pulse Resp BP Pulse Ox O2 Del Method O2 Flow Rate 36.3 C 85 16 108/68 100 Mechanical Ventilation 35 11/30/24 10:55 11/30/24 11:15 11/30/24 10:55 11/30/24 11:15 11/30/24 10:55 11/30/24 08:00 11/29/24 14:16 FiO2 35 11/30/24 10:55 Narrative Exam GENERAL: Intubated, critically ill, unresponsive to commands, withdraws to pain. HEENT: Scleral icterus present. Oral mucosa dry. NECK: Supple, no JVD or bruit. CARDIOVASCULAR: Regular rhythm, no murmurs. RESPIRATORY: Mechanically ventilated, decreased breath sounds bilaterally at bases. ABDOMEN: Firm, distended, non-tender. Ascites noted. EXTREMITIES: Bilateral upper extremity edema, no cyanosis. SKIN: Jaundiced, scattered bruising on upper extremities. NEUROLOGICAL: Pupils equal and reactive; no spontaneous movement, withdraws to pain. Objective Labs 12/01/24 04:41 12/01/24 04:41 Labs: Laboratory Results - last 24 hr 11/27/24 11/30/24 11/30/24 09:04 04:50 08:05 WBC 2.5 L RBC 2.03 L Hgb 6.8 L* Hct 19.5 L* MCV 96 MCH 33.5 MCHC 34.9 RDW Std Deviation 59.7 H Plt Count 17 L* D Neut % (Auto) 79 Lymph % (Auto) 16 [place] % (Auto) 4 Eos % (Auto) 0 Baso % (Auto) 0 Neut # (Auto) 2.0 Lymph # (Auto) 0.4 L [place] # (Auto) 0.1 Eos # (Auto) 0.0 Baso # (Auto) 0.0 Immature Gran # (Auto) 0.03 H Absolute Nucleated RBC 0.00 Immature Gran % 1 H Nucleated RBC % 0 PT 24.5 H D INR 2.5 H APTT 48.5 H Sodium 144 Potassium 3.2 L Chloride 101 Carbon Dioxide 23.6 Anion Gap 19 H BUN 24 H Creatinine 1.2 Estim Creat Clear Calc 49.0 L eGFR 54 L BUN/Creatinine Ratio 20 Glucose 179 H Calculated Osmolality 294 Calcium 9.8 Corrected Calcium 9.8 Phosphorus 2.1 L Magnesium 2.1 Total Bilirubin 8.7 H D AST 27 ALT 14 Alkaline Phosphatase 39 L Total Protein 6.8 Albumin 4.9 D Globulin 1.9 L Albumin/Globulin Ratio 2.6 H Misc Test Result Platelets confirmed Blood Type O Positive O Positive Antibody Screen NEGATIVE NEGATIVE Crossmatch See Detail See Detail Blood Bank Wristband ID Yes Yes Blood Bank Comment PLATP Ready ABG Interpretation ABG results: 11/27/24 11/27/24 11/28/24 14:52 21:14 04:57 ABG pH 7.31 L 7.34 L 7.36 ABG pCO2 44 39 34 ABG pO2 91 154 H D 168 H ABG HCO3 22 21 19 L ABG O2 Saturation 98 100 H 100 H ABG Base Excess -4 L -5 L -6 L 11/29/24 04:05 ABG pH 7.33 L ABG pCO2 38 ABG pO2 127 H D ABG HCO3 20 ABG O2 Saturation 99 H ABG Base Excess -5 L Assessment & Plan Assessment and plan (1) LILY (acute kidney injury): Status: Acute Assessment and plan: #Acute Kidney Injury (LILY), multifactorial likely hepatorenal vs ATN Creatinine 1.6, BUN 45, oliguric. Worsening metabolic acidosis and elevated ammonia. Plan: * Initiate dialysis today (for ammonia clearance and metabolic correction) * Monitor I/O and hemodynamics closely * Renal panel every 6 during dialysis * Daily renal panel and ABGs * Avoid nephrotoxins, #Severe Hyperammonemia (NH3 339) Likely secondary to hepatic failure; refractory to lactulose and rifaximin. Plan: * Dialysis today for ammonia clearance * Continue rifaximin 550 mg BID * Trend ammonia levels daily * Maintain airway protection #High Anion Gap Metabolic Acidosis (AG 24) pH 7.33, HCO3 20, pCO2 38. Plan: * Correct acidosis with dialysis * Continue ventilator support; optimize gas exchange * Monitor ABG and lactate trends Other active problems: #Left base pneumonia, likely aspiration #Acute decompensated liver failure #Esophageal varices #Tube feedings #Hypercalcemia #Hypomagnesemia #Hyper natremia #T2DM #Pancytopenia #VRE, treated completed #Aspiration pneumonia Management per ICU team Additional Assessment & Plan Additional Plan: 54-year-old female with end-stage liver disease, acute hepatic encephalopathy, metabolic acidosis, and worsening renal indices. Reconsulted for initiation of renal replacement therapy due to severe hyperammonemia and metabolic derangements. #Acute Kidney Injury (LILY), multifactorial likely hepatorenal type I vs ATN Creatinine 1.6, BUN 45, oliguric. Worsening metabolic acidosis and elevated ammonia. Plan: * Patient oligoanuric-initiated conventional dialysis (for ammonia clearance and metabolic correction) * Monitor I/O and hemodynamics closely * Daily renal panel and ABGs * Avoid nephrotoxins, #Severe Hyperammonemia (NH3 339) Likely secondary to hepatic failure; refractory to lactulose and rifaximin. Plan: * Dialysis today for ammonia clearance * Continue rifaximin 550 mg BID * Trend ammonia levels daily * Maintain airway protection #High Anion Gap Metabolic Acidosis (AG 24) pH 7.33, HCO3 20, pCO2 38. Plan: * Correct acidosis with dialysis * Continue ventilator support; optimize gas exchange * Monitor ABG and lactate trends Other active problems: #Left base pneumonia, likely aspiration #Acute decompensated liver failure #Esophageal varices #Tube feedings #Hypercalcemia #Hypomagnesemia #Hyper natremia #T2DM #Pancytopenia #VRE, treated completed #Aspiration pneumonia Management per ICU team Patient with significant hepatic encephalopathy and ammonia level 333. Currently on ventilator. Patient with hepatorenal syndrome type I. Urine output minimal. Electrolyte imbalance noted. Decided to proceed with dialysis. patient currently seen on dialysis. Low platelets noted. Hemodialysis for 3 hours, Blood flow 250,2K, ultrafiltration 1 L, Epogen 6000, no heparin ordered. Critical care time spent more than 45 minutes regarding plan of care and disease management. Plan of care discussed with the dialysis nurse. Please see dialysis flowsheet for further details. care discussed with Dr. Hensley. Thank you Dr. Hensley for allowing me to participate in the care of Ms. Pizarro. Prognosis guarded. Quality - progress note Quality Measures Quality Measures: VTE prophylaxis Reason for Continued Stay Reason for Continued Stay: further monitoring
[2024-11-30] MEDS: EPOETIN ALFA-EPBX INJ 10,000 UNIT/ML VIAL (NON-ESRD) 10000 UNIT SC (11:17)
[2024-11-30] MEDS: HEPARIN SOD INJ 1000 UNIT/ML VIAL 10 ML 3000 UNIT INDWELLCAT (11:34)
[2024-11-30] MEDS: LACTULOSE SYRUP 20 GM/30 ML UDC PO ×3 (11:39→21:17)
[2024-11-30] MEDS: LACTOBACILLUS RHAMNOSUS 1 CAP 2 CAP PO (11:39)
[2024-11-30 12:05] LABS: Fibrinogen 136 mg/dL (175-375)
[2024-11-30 13:14] LABS: Ammonia 106 uMol/L (11-32)
--- NOTE | 2024-11-30 15:48 | PC.SS ---
Update: Transfer is pending. Patient remains intubated. Off sedation. NG tube feeding in place. Patient received dialysis today. Dr. Ramon consulting. Possible GOC tomorrow.
--- NOTE | 2024-11-30 18:57 | PD.IMPROG ---
Documentation for date of: 11/30/24 Subjective Subjective Interval history: Hemoglobin hematocrit dropped down to 6.8 and 19.5 will most likely need blood transfusion Platelet count 17,000 Remains encephalopathic Exam Vital Signs Temp Pulse Resp BP Pulse Ox O2 Del Method O2 Flow Rate 98.9 F 81 16 103/59 L 100 Mechanical Ventilation 35 11/30/24 16:00 11/30/24 18:37 11/30/24 11:55 11/30/24 18:00 11/30/24 18:37 11/30/24 16:00 11/29/24 14:16 FiO2 35 11/30/24 18:37 Objective Labs 11/30/24 04:50 11/30/24 04:50 Labs: Laboratory Results - last 24 hr 11/30/24 11/30/24 11/30/24 04:50 08:05 12:31 WBC 2.5 L RBC 2.03 L Hgb 6.8 L* Hct 19.5 L* MCV 96 MCH 33.5 MCHC 34.9 RDW Std Deviation 59.7 H Plt Count 17 L* D Neut % (Auto) 79 Lymph % (Auto) 16 [place] % (Auto) 4 Eos % (Auto) 0 Baso % (Auto) 0 Neut # (Auto) 2.0 Lymph # (Auto) 0.4 L [place] # (Auto) 0.1 Eos # (Auto) 0.0 Baso # (Auto) 0.0 Immature Gran # (Auto) 0.03 H Absolute Nucleated RBC 0.00 Immature Gran % 1 H Nucleated RBC % 0 PT 24.5 H D INR 2.5 H APTT 48.5 H Fibrinogen 136 L Sodium 144 Potassium 3.2 L Chloride 101 Carbon Dioxide 23.6 Anion Gap 19 H BUN 24 H Creatinine 1.2 Estim Creat Clear Calc 49.0 L eGFR 54 L BUN/Creatinine Ratio 20 Glucose 179 H Calculated Osmolality 294 Calcium 9.8 Corrected Calcium 9.8 Phosphorus 2.1 L Magnesium 2.1 Total Bilirubin 8.7 H D AST 27 ALT 14 Alkaline Phosphatase 39 L Ammonia 106 H* Total Protein 6.8 Albumin 4.9 D Globulin 1.9 L Albumin/Globulin Ratio 2.6 H Misc Test Result Platelets confirmed Blood Type O Positive Antibody Screen NEGATIVE Crossmatch See Detail Blood Bank Wristband ID Yes Impressions Impression: End-stage liver disease secondary to alcohol with advanced portal hypertension esophageal variceal bleeding and hypertensive portal gastropathy causing mucosal oozing of blood complicated by thrombocytopenia Patient on Xifaxan Continue supportive care ABG Interpretation ABG results: 11/27/24 11/27/24 11/28/24 14:52 21:14 04:57 ABG pH 7.31 L 7.34 L 7.36 ABG pCO2 44 39 34 ABG pO2 91 154 H D 168 H ABG HCO3 22 21 19 L ABG O2 Saturation 98 100 H 100 H ABG Base Excess -4 L -5 L -6 L 11/29/24 04:05 ABG pH 7.33 L ABG pCO2 38 ABG pO2 127 H D ABG HCO3 20 ABG O2 Saturation 99 H ABG Base Excess -5 L Assessment & Plan A&P Narrative uti , mild with vre as only germ found po linezolid ok for this for total of 7d, cirrhosis, etoh related home at your discretion.if abd pain persists, then evaluate ascites will see again prn Time Spent With Patient Time: Total time spent is greater than 50% in coordination of care (as documented) at patient's floor/unit and/or counseling patient:
[2024-11-30] MEDS: OCTREOTIDE ACET INJ 1,000 MCG in SODIUM CHLORIDE 0.9% 100 ML 5.1 MCG IV (21:18)
[2024-11-30] MEDS: VANCOMYCIN/D5W 1,250 MG IVPB 250 ML 120 MG IV (21:35)
[2024-12-01] VITALS (87 sets, daily range): BP systolic 96–132; BP diastolic 57–88; PULSE 74–105; RESP 12–21; TEMP 36.2–37; O2SAT 100; BMI 33.8
[2024-12-01] MEDS: INSULIN LISPRO (AdmeLOG) 1 UNIT/0.01 ML UNIT SC ×5 (00:06→23:34)
[2024-12-01] MEDS: LACTULOSE SYRUP 20 GM/30 ML UDC PO ×4 (05:28→20:14)
[2024-12-01 06:00] LABS: Basophils # (Auto) 0.0 Thou/mm3 (0.0-0.2); Basophils % (Auto) 0 % (0-2.5); Eosinophils # (Auto) 0.2 Thou/mm3 (0.0-0.5); Eosinophils % (Auto) 4 % (0-10); Hematocrit 27.8 % (36.0-46.0); Hemoglobin 9.7 g/dL (12.0-16.0); Immature Granulocytes Auto 0.03 Thou/mm3 (0.00-0.00); Lymphocytes # (Auto) 0.8 Thou/mm3 (1.0-4.8); Lymphocytes % (Auto) 19 % (10-50); Mean Corpuscular HGB Conc 34.9 g/dl (31.0-37.0); Mean Corpuscular Hemoglobin 30.8 pg (25.0-35.0); Mean Corpuscular Volume 88 fL (80-100); Monocytes # (Auto) 0.2 Thou/mm3 (0.0-0.8); Monocytes % (Auto) 5 % (0-12); Neutrophils # (Auto) 2.9 Thou/mm3 (1.8-7.7); Neutrophils % (Auto) 71 % (37-80); Nucleated Red Blood Cell # 0.00 Thou/mm3 (0.00-0.00); Nucleated Red Blood Cell % 0 /100 WBC (0); RDW Standard Deviation 63.6 fL (36.4-46.3); Red Blood Count 3.15 Miln/mm3 (4.00-5.20); White Blood Count 4.0 Thou/mm3 (3.6-11.0)
[2024-12-01 06:08] LABS: Platelet Count 11 Thou/mm3 (140-440)
[2024-12-01 06:17] LABS: INR 2.5 (0.9-1.3); Partial Thromboplastin Time 52.9 Seconds (22.0-36.0); Prothrombin Time 24.8 Seconds (9.0-12.2)
[2024-12-01 06:19] LABS: Alanine Aminotransferase 15 U/L (10-49); Albumin, Serum 5.0 gm/dL (3.5-5.0); Albumin/Globulin Ratio 2.5 (1.2-2.2); Alkaline Phosphatase 80 U/L (46-116); Anion Gap 18 (7-16); Aspartate Amino Transferase 29 U/L (0-34); BUN/Creatinine Ratio 22 Ratio (12-20); Bilirubin,Total 8.8 mg/dL (0.3-1.2); Blood Urea Nitrogen 29 mg/dL (9-23); Calcium 10.0 mg/dL (8.3-10.6); Calcium (Corrected) 10.0 mg/dL (8.5-10.1); Carbon Dioxide 23.3 mMol/L (20.0-31.0); Chloride 100 mMol/L (98-107); Creatinine (Component) 1.3 mg/dL (0.6-1.3); Estimated Creatinine Clearance 44.6 mL/min (>60); Globulin 2.0 gm/dL (2.3-3.5); Glucose 244 mg/dL (74-106); Magnesium 2.6 mg/dL (1.6-2.6); Osmolality,Calculated 295 (275-295); Phosphorous 1.4 mg/dL (2.4-5.1); Sodium 141 mMol/L (136-145); Total Protein 7.0 gm/dL (5.7-8.2); eGFR 49 See Note
[2024-12-01 06:21] LABS: Potassium 2.7 mMol/L (3.4-5.1)
[2024-12-01 06:32] LABS: Slide Review Platelets confirmed
--- NOTE | 2024-12-01 07:08 | ESPR_ITS ---
Documentation for date of: 12/01/24 Subjective Subjective Interval history: Mother is informant Ms. Knight is a 54-year-old lady who has extensive history of liver cirrhosis secondary to alcoholism (under liver transplant team) recurrent admissions for hepatic encephalopathy, upper GI bleed due to varices/banding, chronic pain syndrome, DM presented to the emergency department with 2 episodes of hematemesis going on for the last few days associated with altered mental status generalized pain weakness and poor p.o. intake. Denies any fever or chills. In the ED patient was noted to be hypotensive. She was given gentle IV fluids, albumin started on home midodrine and lactulose. Admitted to telemetry. Nephrology consultation requested in view of LILY. Patient well-known to me from previous admissions. Home medications included vitamin D, furosemide, [place], last close, metformin, methocarbamol, midodrine, Remeron, Protonix, rifaximin, spironolactone. Labs showed hemoglobin 10.3, platelets 30. Sodium 140, potassium 4.5, BUN 29, creatinine 2.4 of note 10/16/2023 her creatinine is 1.0., Calcium 10.8, magnesium 2.3, total bilirubin 6.7, AST 45, ALT 18, alk phos 96, albumin 2.9, urinalysis shows 2+ blood with 20 RBCs. 11/16/2024 patient currently seen in telemetry. Resting comfortably. Labs/medications reviewed. Urine output improving. She has a Liz catheter. Blood pressure 126/73, heart rate 83. WBC 1.8, hemoglobin 7.8, platelets 22. Creatinine improved to 1.6, sodium 144, potassium 3.9. Albumin 4.4. Patient had endoscopy yesterday. Patient in contact isolation for VRE UTI. Did receive IV fluids, albumin. Will continue albumin. Discharge planning per primary team. Did explain to the patient that she will have recurrent hospitalizations for complications from liver cirrhosis. 12/01/2024 patient currently seen in ICU. Intubated, on ventilator. Isolation. Labs and medications reviewed. Ammonia level significantly elevated above heart initiate dialysis yesterday. Currently on conventional hemodialysis as ammonia is dialyzable. Review of Systems Review of Systems ROS Unobtainable: unobtainable due to medical condition and due to endotracheal tube Exam Vital Signs Temp Pulse Resp BP Pulse Ox O2 Del Method O2 Flow Rate 37.0 C 88 16 116/80 100 Mechanical Ventilation 35 12/01/24 06:00 12/01/24 06:03 11/30/24 11:55 12/01/24 06:03 12/01/24 06:03 11/30/24 16:00 11/29/24 14:16 FiO2 35 12/01/24 06:03 Narrative Exam GENERAL: Intubated, critically ill, unresponsive to commands, withdraws to pain. HEENT: Scleral icterus present. Oral mucosa dry. NECK: Supple, no JVD or bruit. CARDIOVASCULAR: Regular rhythm, no murmurs. RESPIRATORY: Mechanically ventilated, decreased breath sounds bilaterally at bases. ABDOMEN: Firm, distended, non-tender. Ascites noted. EXTREMITIES: Bilateral upper extremity edema, no cyanosis. SKIN: Jaundiced, scattered bruising on upper extremities. NEUROLOGICAL: Pupils equal and reactive; no spontaneous movement, withdraws to pain. Objective Labs 12/02/24 04:30 12/02/24 04:30 Labs: Laboratory Results - last 24 hr 11/30/24 11/30/24 11/30/24 04:50 08:05 12:31 WBC RBC Hgb Hct MCV MCH MCHC RDW Std Deviation Plt Count Neut % (Auto) Lymph % (Auto) [place] % (Auto) Eos % (Auto) Baso % (Auto) Neut # (Auto) Lymph # (Auto) [place] # (Auto) Eos # (Auto) Baso # (Auto) Immature Gran # (Auto) Absolute Nucleated RBC Immature Gran % Nucleated RBC % PT INR APTT Fibrinogen 136 L Sodium Potassium Chloride Carbon Dioxide Anion Gap BUN Creatinine Estim Creat Clear Calc eGFR BUN/Creatinine Ratio Glucose Calculated Osmolality Calcium Corrected Calcium Phosphorus Magnesium Total Bilirubin AST ALT Alkaline Phosphatase Ammonia 106 H* Total Protein Albumin Globulin Albumin/Globulin Ratio Misc Test Result Platelets confirmed Blood Type O Positive Antibody Screen NEGATIVE Crossmatch See Detail Blood Bank Wristband ID Yes 12/01/24 04:41 WBC 4.0 D RBC 3.15 L Hgb 9.7 L D Hct 27.8 L MCV 88 MCH 30.8 MCHC 34.9 RDW Std Deviation 63.6 H Plt Count 11 L* D Neut % (Auto) 71 Lymph % (Auto) 19 [place] % (Auto) 5 Eos % (Auto) 4 Baso % (Auto) 0 Neut # (Auto) 2.9 Lymph # (Auto) 0.8 L [place] # (Auto) 0.2 Eos # (Auto) 0.2 Baso # (Auto) 0.0 Immature Gran # (Auto) 0.03 H Absolute Nucleated RBC 0.00 Immature Gran % 1 H Nucleated RBC % 0 PT 24.8 H INR 2.5 H APTT 52.9 H Fibrinogen Sodium 141 Potassium 2.7 L* D Chloride 100 Carbon Dioxide 23.3 Anion Gap 18 H BUN 29 H Creatinine 1.3 Estim Creat Clear Calc 44.6 L eGFR 49 L BUN/Creatinine Ratio 22 H Glucose 244 H D Calculated Osmolality 295 Calcium 10.0 Corrected Calcium 10.0 Phosphorus 1.4 L Magnesium 2.6 Total Bilirubin 8.8 H AST 29 ALT 15 Alkaline Phosphatase 80 D Ammonia Total Protein 7.0 Albumin 5.0 Globulin 2.0 L Albumin/Globulin Ratio 2.5 H Misc Test Result Platelets confirmed Blood Type Antibody Screen Crossmatch Blood Bank Wristband ID ABG Interpretation ABG results: 11/27/24 11/27/24 11/28/24 14:52 21:14 04:57 ABG pH 7.31 L 7.34 L 7.36 ABG pCO2 44 39 34 ABG pO2 91 154 H D 168 H ABG HCO3 22 21 19 L ABG O2 Saturation 98 100 H 100 H ABG Base Excess -4 L -5 L -6 L 11/29/24 04:05 ABG pH 7.33 L ABG pCO2 38 ABG pO2 127 H D ABG HCO3 20 ABG O2 Saturation 99 H ABG Base Excess -5 L Assessment & Plan Assessment and plan (1) LILY (acute kidney injury): Status: Acute Additional Assessment & Plan Additional Plan: 54-year-old female with end-stage liver disease, acute hepatic encephalopathy, metabolic acidosis, and worsening renal indices. Reconsulted for initiation of renal replacement therapy due to severe hyperammonemia and metabolic derangements. #Acute Kidney Injury (LILY), multifactorial likely hepatorenal type I vs ATN Creatinine 1.6, BUN 45, oliguric. Worsening metabolic acidosis and elevated ammonia. Plan: * Patient oligoanuric-initiated conventional dialysis (for ammonia clearance and metabolic correction) * Monitor I/O and hemodynamics closely * Daily renal panel and ABGs * Avoid nephrotoxins, #Severe Hyperammonemia (NH3 339) Likely secondary to hepatic failure; refractory to lactulose and rifaximin. Plan: * Dialysis today for ammonia clearance * Continue rifaximin 550 mg BID * Trend ammonia levels daily * Maintain airway protection #High Anion Gap Metabolic Acidosis (AG 24) pH 7.33, HCO3 20, pCO2 38. Plan: * Correct acidosis with dialysis * Continue ventilator support; optimize gas exchange * Monitor ABG and lactate trends Other active problems: #Left base pneumonia, likely aspiration #Acute decompensated liver failure #Esophageal varices #Tube feedings #Hypercalcemia #Hypomagnesemia #Hyper natremia #T2DM #Pancytopenia #VRE, treated completed #Aspiration pneumonia Management per ICU team Patient with significant hepatic encephalopathy and ammonia level 333. Currently on ventilator. Patient with hepatorenal syndrome type I. Urine output minimal. Electrolyte imbalance noted. Decided to proceed with dialysis. patient currently seen on dialysis. Low platelets noted. Hemodialysis for 3 hours, Blood flow 250,2K, ultrafiltration 1 L, Epogen 6000, no heparin ordered. Critical care time spent more than 45 minutes regarding plan of care and disease management. Plan of care discussed with the dialysis nurse. Please see dialysis flowsheet for further details. Hold dialysis tomorrow. care discussed with Dr. Hensley. Thank you Dr. Hensley for allowing me to participate in the care of Ms. Pizarro. Prognosis guarded.
[2024-12-01] MEDS: INSULIN DEGLUDEC 5 UNIT/0.05 ML (PER 5 UNITS) 11 UNIT SC (09:13)
--- NOTE | 2024-12-01 11:15 | XR_ITS ---
Examination: CT brain head without contrast. 2-D sagittal coronal reconstructions Date and time of exam: December 01, 2024, 1211 hours INDICATIONS: Elevated ammonia on laboratory examination today, clinical diagnosis cerebral edema CTDI: vol (mGy): 51.8 DLP: (mGycm): 1002 Technique: Multiple CT axial sections of the brain have been obtained, 5 mm slice thickness. Contrast has not been administered. 2-D sagittal, coronal reconstructions have been obtained Low dose protocols were performed. One or more of the following dose reduction techniques were used; automated exposure control, adjustment of the mA and/or KV according to patient size, use of iterative reconstruction technique. Findings: No significant ventricular enlargement. Intra-axial or extra-axial hemorrhage density is not seen. No mass effect or midline shift Basal cisterns are not remarkable. Fourth ventricle is midline. Cranial vault intact. Impression: Negative for acute hemorrhage, mass effect or midline shift No generalized cerebral edema Consider follow-up brain MRI stroke protocol as clinically warranted
--- NOTE | 2024-12-01 11:15 | ESPR_ITS ---
Documentation for date of: 12/01/24 Subjective Subjective Interval history: Patient remains afebrile, hemodynamically stable last 24 hours. No vasopressor requirements with hemodialysis. Patient's ammonia post hemodialysis showing continued significant improvement. Patient continues to have adequate bowel movements-1600 cc in 24 hours on. Total urine output of 550 cc in last 24 hours. Contacted by [facility] real estate professional, Dr. Evangelista, late yesterday with plan for financial clearance prior to acceptance. They remain open to evaluation if the patient's mentation improves similar to [facility] hepatology. Critical Care Note Critical care time (min.): 35 Exam Vital Signs Temp Pulse Resp BP Pulse Ox O2 Del Method O2 Flow Rate 97.6 F 88 19 101/70 100 Mechanical Ventilation 35 12/01/24 10:07 12/01/24 11:00 12/01/24 10:07 12/01/24 11:00 12/01/24 11:00 11/30/24 16:00 11/29/24 14:16 FiO2 35 12/01/24 10:07 Narrative Exam GEN: NAD, off sedation, jaundice and anasarca HEENT: PERRL, incterus, downward gaze but conjugate, ETT in place 20 at the teeth NECK: RIJ CVC dressing C/D/I CVS: S1/S2+ RRR no R/M/G PULM: CTA bilaterally ABD: soft/ ND/ BS+/ NT to palpation EXT: Anasarca SKIN: Jaundice NEURO: withdraws all limbs to pain, cough/ gag present, not opening eyes spontaneously/ no movement Physical Exam Completion Physical Exam Complete?: Yes 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7 L* D Chloride 100 Carbon Dioxide 23.3 Anion Gap 18 H BUN 29 H Creatinine 1.3 Estim Creat Clear Calc 44.6 L eGFR 49 L BUN/Creatinine Ratio 22 H Glucose 244 H D Calculated Osmolality 295 Calcium 10.0 Corrected Calcium 10.0 Phosphorus 1.4 L Magnesium 2.6 Total Bilirubin 8.8 H AST 29 ALT 15 Alkaline Phosphatase 80 D Ammonia 106 H* Total Protein 7.0 Albumin 5.0 Globulin 2.0 L Albumin/Globulin Ratio 2.5 H Misc Test Result Platelets confirmed Critical care time Critical Care Time Total Critical Care Time (min.): 35 Attestation: Patient remains at high risk for significant further morbidity and mortality warranting close monitoring and care only available in the ICU. Critical care services required for fulminant hepatic failure secondary to alcoholic cirrhosis, hepatic encephalopathy, acute renal failure, healthcare associated pneumonia/ventilator associated pneumonia. Assessment & Plan Problem List (1) LILY (acute kidney injury): Status: Acute Additional Plan Additional Plan: 54 y/o F with PMHx of decompensated alcoholic cirrhosis (on transplant list), multiple admissions for hepatic encephalopathy, prior variceal bleeding s/p banding, chronic pain, T2DM presents from home with altered mental status, generalized pain, weakness, poor oral intake, and 2 episodes of hematemesis, upgraded to ICU for intubation due to inability to protect airway. Neuro: #Hepatic encephalopathy Dx: - Patient has history of hepatic encephalopathy due to liver cirrhosis. - Per Mother, patient was diagnosed around September 2023 and this is when she stopped completely drinking alcohol as well. - Initial 11/13 ammonia 153, treated with lactulose and rifaximin. - 11/27 patient developed worsening encephalopathy, GCS 7, repeat ammonia 143 , lactulose had been down titrated due to loose stools. - Patient intubated for airway protection. - 11/29 Overnight, less BM's, would not tolerate golytely; ammonia 339 (142) - Bedside ultrasound of eye showed optic nerve diameter ~6.3 mm (N < 5 mm), suspecting possible cerebral edema Rx: - Started dialysis for ammonia elevation, EEG consistent with acute encephalopathy - Broad spectrum abx and golytely. - Adequate output with use of lactulose - Trend ammonia, does not always correlate with clinical status - Continue Rifaximin 550 BID - Rectal tube in place - Repeat CT head today given risk of bleeding with coagulopathy/ thrombocytopenia; remains at threshold to avoid excessive transfusion CVS: No active issues. Pulmonary: #Acute hypoxic respiratory failure #Left base pneumonia, likely aspiration Not able to extubate at this time due to patient's mentation not being appropriate for airway protection. The hepatic encephalopathy is likely contributing to this along with possible seizures vs meningitis vs cerebral edema. Dx: -CXR on 11/27 showed L base consolidation consistent with pneumonia, not seen on previous CXR (11/26). -Likely due to aspiration in setting of decreased GCS. Patient intubated for airway protection. Rx: - Per [facility] for - Fluconazole 200 mg IV qd, Meropenem 2,000 mg IV q12hr, Vancomycin - Blood and sputum cultures- ESBL Klebsiella oxytoca in sputum, blood remains negative at 48 hours - Maintain intubation until patient able to protect airway - Gas exchange and pulmonary mechanics preserved GI: #Fulminant Liver Failure i/s/o End-Stage Liver Disease 2/2 Alcoholic Liver Cirrhosis Dx: -Patient has known history of ESLD, with frequent admission for complications related to liver disease. -Per Mother, patient was diagnosed around September 2023 and this is when she stopped completely drinking alcohol as well. -Admitted for hepatic encephalopathy 11/13. -During hospital stay, patient has acutely decompensated, with worsening coagulopathy, hepatic encephalopathy, pancytopenia. -Minimal ascites, not enough for paracentesis on US on 11/21 -11/27 MELD-Na 40, 71.3% 3 month mortality, with PT>63, INR, undetectably high. Child [place] class C: 82% perioperative mortality. -11/29 Maddrey's Discriminant Function forAlcoholic Hepatitis is 49.3 points -> Poor prognosis, may benefit from glucocorticoid therapy -[facility] declined transfer declined from transplant perspective; they asked for Broad spectrum abx and golytely. Rx: - Continuing to treat hepatic encephalopathy and coagulopathy - Avoid hepatically metabolized medications when appropriate - Per [facility] Broad spectrum abx and golytely (completed) - GI consulted, appreciate recommendations - Fluconazole 200 mg IV qd, Meropenem 2,000 mg IV q12hr, Vancomycin stopped with negative MRSA screening - Attempt diagnostic paracentesis if enough fluid is found #Esophageal varices Patient history of varices requiring banding. EGD 11/14/24 showed garde 1 varices, mucosal oozing. - GI consulted, appreciate recs - Octreotide drip, will complete 5-day course this evening - Protonix IV 40mg BID #Tube feedings Patient started on tube feeds due to AMS, inability to eat. Currently intubated. - Dietary consulted, appreciate recommendation - Tube feeds to be continued Renal: #LILY, on temporary dialysis (as above) Ddx: Prerenal dehydration, hepatorenal syndrome, ATN Patient blood pressure and renal function improved with albumin, octreotide, and midodrine. Kidney function has since declined again, despite serum albumin levels elevated to 6.2. Potential ATN due to inability to hepatically metabolize potential nephrotoxins. Dx: -Patient presented with significant LILY, creatinine 2.4 compared to baseline 0.9. -11/29: Cr 1.6 (1.8); still making urine ~55cc/hr overnight -11/30: 200 cc UOP, overnight, HD this AM- 1.5L removed with 2 uPRBC given -12/01 Net negative balance secondary to high stool output Rx: - Strict I's and O's - HD as per nephrology - Renally dose medication - Avoid nephrotoxins #HAGMA DDx: LILY from hepatorenal syndrome, decreased intravascular volume, lactic acidosis. Patient's endstage liver disease appears to be the source of this, causing renal dysfunction, decreasing the ability of the body to rid of acids. Dx: -11/29: AGAP 24, Bicarb 36.2, Rx: -continue to optimize vent and treat hepatic encephalopathy/ uremia #hypercalcemia #hypermagnesemia #hypernatremia DDx: Likely due to lactulose and ensuing BM's Dx: -11/29: Ca 11.0 (11.2), Mag 2.7 (2.8), Na 153 (150) -Sodium being elevated may help possible cerebral edema. Rx: -Will continue to trend e-lytes; -Dialysis 11/29, 11/30, 12/01; likely break tomorrow Endo: #T2DM Dx: -Patient has history of T2DM. A1c 6.0 as of 09/25/24. -11/29 glucose 184 (213) Rx: - Long acting insulin 11 qDaily - ISS Heme/Onc: #Pancytopenia 2/2 likely cirrhosis and side effect of linezolid (agranulocytosis) -Patient has pancytopenia, reqiuring transfusions of platelets and RBCs during hospital stay. -Hemoglobin currently 7.4, platelets 21. Dx: -11/29 Fibrinogen 145 (71) s/p cryoprecipitate x 4 units (fibrinogen goal of 150-200) Rx: - Monitor hemoglobin and platelets - Transfuse as needed, 2 uPRBC with HD today - Transfuse to keep PLT >10k unless invasive procedure #Coagulopathy/ DIC Patient has coagulopathy due to cirrhosis. INR and PTT undetectably high. Noted to have large bruises BUE. Received vitamin K and FFP. - Monitor for signs of blood loss, none presently- hemolysis from DIC - Check fibrinogen/ PT/INR again ID: #[email or web address], treatment completed Patient found to have UTI, culture showed VRE. Completed treatment course with linezolid. Has had numerous positive urine cultures for VRE in the past. - Maintain isolation precautions #Aspiration Pneumonia Treat as above -Blood cx's 11/27 NG24 hrs -ET gram stain showed 1+ mixed thad, occasional budding yeast, fungal elements, 2+ wbcs; ET culture ESBL klebsiella oxytoca - Continue on meropenem, Vancomycin stopped with negative MRSA Disposition: ICU; [facility] denied transfer for Liver transplant 11/28 given AMS/ HE; pending financial clearance for evaluation at [facility] DVT prophylaxis: SCD's GI prophylaxis: Protonix Diet: tube feeds Lines: Peripherals, rectal tube, ET tube Drips: Octreotide Vent: Yes CODE STATUS: Full code Provider Notation Provider Notation: Although this document has been carefully reviewed, there may still be some phonetic and other typographical errors. These errors are purely grammatical due to imperfections in the software program and should not be construed in any way to compromise the substance of the patient's medical care during this visit. Thank you for the opportunity and privilege in assisting you with this patient's care and management.
[2024-12-01] MEDS: HEPARIN SOD INJ 1000 UNIT/ML VIAL 10 ML 3000 UNIT INDWELLCAT (11:31)
--- NOTE | 2024-12-01 12:25 | ESPR_ITS ---
Documentation for date of: 12/01/24 Subjective Subjective Interval history: Patient evaluated Remains mechanically ventilated critical care team is evaluating the patient for a transfer currently conversation with [place] They will accept her if the mental status improves Exam Vital Signs Temp Pulse Resp BP Pulse Ox O2 Del Method O2 Flow Rate 97.6 F 88 21 H 100/83 100 Mechanical Ventilation 35 12/01/24 10:07 12/01/24 11:23 12/01/24 10:07 12/01/24 11:23 12/01/24 11:00 11/30/24 16:00 11/29/24 14:16 FiO2 35 12/01/24 10:07 Objective Labs 12/01/24 04:41 12/01/24 04:41 Labs: Laboratory Results - last 24 hr 11/30/24 12/01/24 12:31 04:41 WBC 4.0 D RBC 3.15 L Hgb 9.7 L D Hct 27.8 L MCV 88 MCH 30.8 MCHC 34.9 RDW Std Deviation 63.6 H Plt Count 11 L* D Neut % (Auto) 71 Lymph % (Auto) 19 [place] % (Auto) 5 Eos % (Auto) 4 Baso % (Auto) 0 Neut # (Auto) 2.9 Lymph # (Auto) 0.8 L [place] # (Auto) 0.2 Eos # (Auto) 0.2 Baso # (Auto) 0.0 Immature Gran # (Auto) 0.03 H Absolute Nucleated RBC 0.00 Immature Gran % 1 H Nucleated RBC % 0 PT 24.8 H INR 2.5 H APTT 52.9 H Sodium 141 Potassium 2.7 L* D Chloride 100 Carbon Dioxide 23.3 Anion Gap 18 H BUN 29 H Creatinine 1.3 Estim Creat Clear Calc 44.6 L eGFR 49 L BUN/Creatinine Ratio 22 H Glucose 244 H D Calculated Osmolality 295 Calcium 10.0 Corrected Calcium 10.0 Phosphorus 1.4 L Magnesium 2.6 Total Bilirubin 8.8 H AST 29 ALT 15 Alkaline Phosphatase 80 D Ammonia 106 H* Total Protein 7.0 Albumin 5.0 Globulin 2.0 L Albumin/Globulin Ratio 2.5 H Misc Test Result Platelets confirmed Impressions Impression: Hepatic metabolic encephalopathy Respiratory failure requiring endotracheal intubation End-stage liver disease with multiple admissions for GI bleed due to esophageal varices requiring band ligation and hypertensive portal gastropathy with mucosal oozing of blood requiring octreotide infusion Continue current management ABG Interpretation ABG results: 11/27/24 11/27/24 11/28/24 14:52 21:14 04:57 ABG pH 7.31 L 7.34 L 7.36 ABG pCO2 44 39 34 ABG pO2 91 154 H D 168 H ABG HCO3 22 21 19 L ABG O2 Saturation 98 100 H 100 H ABG Base Excess -4 L -5 L -6 L 11/29/24 04:05 ABG pH 7.33 L ABG pCO2 38 ABG pO2 127 H D ABG HCO3 20 ABG O2 Saturation 99 H ABG Base Excess -5 L Assessment & Plan A&P Narrative uti , mild with vre as only germ found po linezolid ok for this for total of 7d, cirrhosis, etoh related home at your discretion.if abd pain persists, then evaluate ascites will see again prn Time Spent With Patient Time: Total time spent is greater than 50% in coordination of care (as documented) at patient's floor/unit and/or counseling patient:
[2024-12-01] MEDS: FOLIC ACID 1 MG TABLET 2.5 MG NG (12:51)
[2024-12-01] MEDS: LACTOBACILLUS RHAMNOSUS 1 CAP 2 CAP PO (12:53)
[2024-12-01] MEDS: THIAMINE INJ 100 MG/ML VIAL 2 ML IVP (12:54)
[2024-12-01] MEDS: MEROPENEM INJ 2,000 MG in SODIUM CHLORIDE 0.9% 100 ML 100 MG IV ×2 (12:59→20:15)
[2024-12-01] MEDS: FLUCONAZOLE/NS 200 MG IVPB 200 MG/100 ML BAG 100 MG IV (13:00)
[2024-12-01] MEDS: INSULIN DEGLUDEC 5 UNIT/0.05 ML (PER 5 UNITS) SC (13:33)
[2024-12-01 15:07] LABS: Fibrinogen 110 mg/dL (175-375); INR 2.5 (0.9-1.3); Prothrombin Time 24.7 Seconds (9.0-12.2)
[2024-12-01 15:08] LABS: Ammonia 161 uMol/L (11-32)
[2024-12-01] MEDS: OCTREOTIDE ACET INJ 1,000 MCG in SODIUM CHLORIDE 0.9% 100 ML 5.1 MCG IV (16:01)
--- NOTE | 2024-12-01 16:11 | PC.NURSE ---
called dr. hyatt to let him know about low potassium and phos level.
[2024-12-01 17:05] LABS: Anion Gap 15 (7-16); BUN/Creatinine Ratio 19 Ratio (12-20); Blood Urea Nitrogen 25 mg/dL (9-23); Calcium 9.6 mg/dL (8.3-10.6); Carbon Dioxide 25.5 mMol/L (20.0-31.0); Chloride 101 mMol/L (98-107); Creatinine (Component) 1.3 mg/dL (0.6-1.3); Estimated Creatinine Clearance 44.6 mL/min (>60); Glucose 236 mg/dL (74-106); Magnesium 2.5 mg/dL (1.6-2.6); Osmolality,Calculated 293 (275-295); Phosphorous 1.4 mg/dL (2.4-5.1); Potassium 2.9 mMol/L (3.4-5.1); Sodium 141 mMol/L (136-145); eGFR 49 See Note
[2024-12-01] MEDS: POTASSIUM CHLORIDE 10% 20 MEQ/15 ML UDC 40 MEQ GT (17:34)
[2024-12-01] MEDS: POT PHOS 15 mMol in NS 250 ML 15 MMOL/250 ML BAG 62.5 MMOL IV ×2 (17:35→20:14)
--- NOTE | 2024-12-01 20:18 | PC.NURSE ---
Gabriel from [facility] called for updates on patient. vitals, lines, vent settings given. per Gabriel, still waiting for patient to be extubated before we accept her
[2024-12-01 21:49] LABS: Vancomycin,Trough 21.9 mcg/mL (5.0-10.0)
[2024-12-02] VITALS (81 sets, daily range): BP systolic 100–131; BP diastolic 59–89; PULSE 74–96; RESP 9–17; TEMP 36.3–37.1; O2SAT 82–100; BMI 33.8
[2024-12-02 05:01] LABS: Basophils # (Auto) 0.0 Thou/mm3 (0.0-0.2); Basophils % (Auto) 0 % (0-2.5); Eosinophils # (Auto) 0.2 Thou/mm3 (0.0-0.5); Eosinophils % (Auto) 7 % (0-10); Hematocrit 25.6 % (36.0-46.0); Hemoglobin 8.9 g/dL (12.0-16.0); Immature Granulocytes Auto 0.01 Thou/mm3 (0.00-0.00); Lymphocytes # (Auto) 0.7 Thou/mm3 (1.0-4.8); Lymphocytes % (Auto) 28 % (10-50); Mean Corpuscular HGB Conc 34.8 g/dl (31.0-37.0); Mean Corpuscular Hemoglobin 30.7 pg (25.0-35.0); Mean Corpuscular Volume 88 fL (80-100); Monocytes # (Auto) 0.2 Thou/mm3 (0.0-0.8); Monocytes % (Auto) 6 % (0-12); Neutrophils # (Auto) 1.5 Thou/mm3 (1.8-7.7); Neutrophils % (Auto) 59 % (37-80); Nucleated Red Blood Cell # 0.00 Thou/mm3 (0.00-0.00); Nucleated Red Blood Cell % 0 /100 WBC (0); RDW Standard Deviation 62.9 fL (36.4-46.3); Red Blood Count 2.90 Miln/mm3 (4.00-5.20); White Blood Count 2.6 Thou/mm3 (3.6-11.0)
[2024-12-02 05:20] LABS: Platelet Count 6 Thou/mm3 (140-440)
[2024-12-02] MEDS: INSULIN LISPRO (AdmeLOG) 1 UNIT/0.01 ML UNIT SC ×3 (05:23→17:32)
[2024-12-02] MEDS: LACTULOSE SYRUP 20 GM/30 ML UDC PO ×4 (05:23→20:26)
[2024-12-02 05:30] LABS: Ammonia 98 uMol/L (11-32)
[2024-12-02 05:32] LABS: Alanine Aminotransferase 15 U/L (10-49); Albumin, Serum 4.7 gm/dL (3.5-5.0); Albumin/Globulin Ratio 2.5 (1.2-2.2); Alkaline Phosphatase 82 U/L (46-116); Anion Gap 13 (7-16); Aspartate Amino Transferase 25 U/L (0-34); BUN/Creatinine Ratio 32 Ratio (12-20); Bilirubin,Total 8.4 mg/dL (0.3-1.2); Blood Urea Nitrogen 45 mg/dL (9-23); Calcium 9.9 mg/dL (8.3-10.6); Calcium (Corrected) 9.9 mg/dL (8.5-10.1); Carbon Dioxide 26.7 mMol/L (20.0-31.0); Chloride 105 mMol/L (98-107); Creatinine (Component) 1.4 mg/dL (0.6-1.3); Estimated Creatinine Clearance 41.4 mL/min (>60); Globulin 1.9 gm/dL (2.3-3.5); Glucose 245 mg/dL (74-106); Magnesium 2.8 mg/dL (1.6-2.6); Osmolality,Calculated 308 (275-295); Phosphorous 3.4 mg/dL (2.4-5.1); Potassium 3.7 mMol/L (3.4-5.1); Sodium 145 mMol/L (136-145); Total Protein 6.6 gm/dL (5.7-8.2); eGFR 45 See Note
[2024-12-02 05:38] LABS: INR 2.4 (0.9-1.3); Partial Thromboplastin Time 53.4 Seconds (22.0-36.0); Prothrombin Time 23.5 Seconds (9.0-12.2); Slide Review Platelets confirmed
[2024-12-02] MEDS: FOLIC ACID 1 MG TABLET 2.5 MG NG (08:21)
[2024-12-02] MEDS: THIAMINE INJ 100 MG/ML VIAL 2 ML IVP (08:24)
[2024-12-02] MEDS: MEROPENEM INJ 2,000 MG in SODIUM CHLORIDE 0.9% 100 ML 100 MG IV ×2 (08:25→20:26)
[2024-12-02] MEDS: FLUCONAZOLE/NS 200 MG IVPB 200 MG/100 ML BAG 100 MG IV (08:26)
[2024-12-02] MEDS: INSULIN DEGLUDEC 5 UNIT/0.05 ML (PER 5 UNITS) 16 UNIT SC (09:13)
--- NOTE | 2024-12-02 09:25 | PC.CC ---
Addendum entered by Judson Hughes RN 12/02/24 15:59: Per MD notes, they will attempt to extubate tomorrow. Transfer nurse will f/u with ins for auth tomorrow Original Note: [id number]: received call from Dr. Villasenor. He informed me that they will try to extubate the patient today as patient's mentation has improved. He requests that we try to resubmit to [facility] once patient is extubated. I informed him documentation of pt's improvement and extubation will be needed for submission.
[2024-12-02] MEDS: LACTOBACILLUS RHAMNOSUS 1 CAP 2 CAP PO (11:34)
--- NOTE | 2024-12-02 11:40 | PC.SS ---
SS update: on iv antibiotics, will be a transfer.
--- NOTE | 2024-12-02 11:47 | PD.RESPRO ---
Documentation for date of: 12/02/24 Subjective Subjective Interval history: 54 y/o F with PMHx of decompensated alcoholic cirrhosis (on transplant list), multiple admissions for hepatic encephalopathy, prior variceal bleeding s/p banding, chronic pain, T2DM presents from home with altered mental status, generalized pain, weakness, poor oral intake, and 2 episodes of hematemesis in the last week. CXR was ordered and she was admitted for suspected hepatic encephalopathy recurrence. Per patient she has been taking prescribed lactulose. For week prior to admission patient had experienced loss of appetite, had very poor oral intake, and had 2 episodes of hematemesis. During this period her mentation deteriorated and she has become increasingly confused. She also developed generalized pain, n/v during this time as well as diarrhea. The patient and mother otherwise denied dysuria, frequency, constipation, fever, chills, SOB, palpitations. In the ED, she was afebrile and hemodynamically stable, cachexic, with diffuse tenderness, severe asterixis, lethargy/fatigue, generalized weakness and generalized pain. A&Ox2 oriented to name and place. UA showed blood. Labs significant for LILY (Cr 2.4 from baseline ~1.0), anemia (Hgb 10.6 though she trends 8s-10s), hyperammonemia (153), BUN 30, Plt 68.5, MCV 104, PT 17.7, INR 1.7, PTT 35.5 high normal, Tbili 6.5. Patient treated on the floors for 2 weeks. During this time, patient received lactulose, rifaximin, PRBC as needed, FFP and vitamin K. EGD on 11/14/24 showed esophageal varices and mucosal oozing, treated with octreotide drip and protonix. Patient receiving Rocephin for SBP prophylaxis. Found to have VRE UTI, treated with linezolid, treatment completed. Patient eventually became more somnolent, NG tube inserted for enteral tube feeds. At this time, patient is pending transfer to [facility] for liver transplant evaluation. Patient mentation worsened, with GCS 7, unable to protect airway. ICU was consulted to evaluate need for intubation. Decision was made to intubate patient due to inability to protect airway. Accepted care of patient. Interval Subjective History: 11/28/2024: Overnight patient was noted to have made 8-10 bowel movements through her rectal tube after being started on lactulose 60 gm TID previous day. BM's seem to have slowed down today. Patient was given PRN Versed q 1hr for agitation. Urine output minimal past 24 hours. Today patient has been making more urine at 50 cc/hr so far. This morning patient was noted to have a RASS score of -3, eye reaction but no eye contact to voice. Patient's vitals were stable, patient mechanically ventilated on 35% FiO2. Team was made aware from [facility] for liver transplant that they would need a discharge summary completed before they could accept her; this was promptly done. Due to patient not being on sedation, patient is being considered for spontaneous breathing trial today pending how her mentation improves for airway protection. 11/29/2024: Overnight patient was transfused pRBC's 1 unit for hgb 6.3 with repeat hgb showing 7.9. Patient was noted to have multiple, minimal, seeping bowel movements that never filled the rectal tube bag. Patient was started on golytely and was not able to tolerate it, was regurgitating the majority of what was given. Patient was given Reglan which didn't help making increased amount of BM either. Patient's vitals were stable upon seeing the patient today. The patient was examined and found to have a RASS of -3. Patient made 55 cc/hr of urine overnight. Patient's fibrinogen came back at 145 from 71 after being given cryoprecipitate. Planning to do Ultrasound of eye to assess for increased intracranial pressure. 12/02/2024: Overnight patient had 800 cc urinary output. Platelets decreased to 6, 1 units platelets ordered. 1 unit FFP ordered. Anemia slightly downtrended to 8.9. Ammonia decreased to 98. No plan for dialysis today, will reevaluate tomorrow per nephrology. Patient showed improvement Tatian, able to follow commands today. Was placed on pressure support, which was well-tolerated for 4 hours. Will do pressure support 4 hours overnight, consider extubation tomorrow. Head CT on 11/28 showed no edema, no stroke. Spoke with transfer nurse, if patient is able to be extubated tomorrow, potential transfer to [facility] pending authorization. Exam Vital Signs Temp Pulse Resp BP Pulse Ox O2 Del Method O2 Flow Rate 98.8 F 77 16 115/71 100 Mechanical Ventilation 35 12/02/24 08:00 12/02/24 10:30 12/02/24 08:00 12/02/24 10:30 12/02/24 10:30 12/02/24 08:00 11/29/24 14:16 FiO2 35 12/02/24 10:30 Narrative Exam General: Intubated, following commands, no acute distress. Bloody secretions in ET tube. HEENT: Scleral icterus noted, mucous membranes moist. Neck: Supple, no JVD or bruit. Cardiovascular: Regular rate and rhythm, no murmurs. Respiratory: On ventilator, equal breath sounds bilaterally, no wheezing or crackles. Abdomen: Soft, nontender. EXT: Bilateral upper extremity edema, worse on left arm. Multiple deroofed blisters on left arm, no new blisters forming. Skin: Jaundiced, scattered bruising. Neurological: Awake, following commands, moves all extremities on command, improved mentation. Objective Labs 12/02/24 04:30 12/02/24 04:30 Labs: Laboratory Results - last 24 hr 12/01/24 12/01/24 12/01/24 14:10 16:15 21:07 WBC RBC Hgb Hct MCV MCH MCHC RDW Std Deviation Plt Count Neut % (Auto) Lymph % (Auto) [place] % (Auto) Eos % (Auto) Baso % (Auto) Neut # (Auto) Lymph # (Auto) [place] # (Auto) Eos # (Auto) Baso # (Auto) Immature Gran # (Auto) Absolute Nucleated RBC Immature Gran % Nucleated RBC % PT 24.7 H INR 2.5 H APTT Fibrinogen 110 L Sodium 141 Potassium 2.9 L Chloride 101 Carbon Dioxide 25.5 Anion Gap 15 BUN 25 H Creatinine 1.3 Estim Creat Clear Calc 44.6 L eGFR 49 L BUN/Creatinine Ratio 19 Glucose 236 H Calculated Osmolality 293 Calcium 9.6 Corrected Calcium Phosphorus 1.4 L Magnesium 2.5 Total Bilirubin AST ALT Alkaline Phosphatase Ammonia 161 H* Total Protein Albumin Globulin Albumin/Globulin Ratio Vancomycin Trough 21.9 H* Misc Test Result 12/02/24 04:30 WBC 2.6 L RBC 2.90 L Hgb 8.9 L Hct 25.6 L MCV 88 MCH 30.7 MCHC 34.8 RDW Std Deviation 62.9 H Plt Count 6 L* D Neut % (Auto) 59 Lymph % (Auto) 28 [place] % (Auto) 6 Eos % (Auto) 7 Baso % (Auto) 0 Neut # (Auto) 1.5 L Lymph # (Auto) 0.7 L [place] # (Auto) 0.2 Eos # (Auto) 0.2 Baso # (Auto) 0.0 Immature Gran # (Auto) 0.01 H Absolute Nucleated RBC 0.00 Immature Gran % 0 Nucleated RBC % 0 PT 23.5 H INR 2.4 H APTT 53.4 H Fibrinogen Sodium 145 Potassium 3.7 D Chloride 105 Carbon Dioxide 26.7 Anion Gap 13 BUN 45 H Creatinine 1.4 H Estim Creat Clear Calc 41.4 L eGFR 45 L BUN/Creatinine Ratio 32 H Glucose 245 H Calculated Osmolality 308 H Calcium 9.9 Corrected Calcium 9.9 Phosphorus 3.4 Magnesium 2.8 H Total Bilirubin 8.4 H AST 25 ALT 15 Alkaline Phosphatase 82 Ammonia 98 H* Total Protein 6.6 Albumin 4.7 Globulin 1.9 L Albumin/Globulin Ratio 2.5 H Vancomycin Trough Misc Test Result Platelets confirmed ABG Interpretation ABG results: 11/27/24 11/27/24 11/28/24 14:52 21:14 04:57 ABG pH 7.31 L 7.34 L 7.36 ABG pCO2 44 39 34 ABG pO2 91 154 H D 168 H ABG HCO3 22 21 19 L ABG O2 Saturation 98 100 H 100 H ABG Base Excess -4 L -5 L -6 L 11/29/24 04:05 ABG pH 7.33 L ABG pCO2 38 ABG pO2 127 H D ABG HCO3 20 ABG O2 Saturation 99 H ABG Base Excess -5 L Quality Measures Quality Measures VTE prophylaxis Assessment & Plan Assessment Current Active Medications: Generic Name Dose Route Start Last Admin Trade Name Freq PRN Reason Stop Dose Admin Albuterol 2.5 mg 12/02/24 11:04 Albuterol Rt 2.5 Mg/0.5 Ml Nebu INH 01/01/25 14:59 Q4HRRT PRN RESPIRATORY DISTRESS Cyanocobalamin 1,000 mcg 11/27/24 09:00 12/02/24 08:22 Cyanocobalamin 500 Mcg Tablet NG 12/27/24 08:59 1,000 mcg QDAY CELINA Administration Dextrose 25 ml 11/22/24 09:17 Dextrose 50%-Water Inj 50 Ml Syringe IV 12/22/24 09:16 Q15MIN PRN BG 50-70 responsive npo pt Dextrose 50 ml 11/22/24 09:17 Dextrose 50%-Water Inj 50 Ml Syringe IV 12/22/24 09:16 Q15MIN PRN BG <50 OR BG <70 & pt unresponsive Folic Acid 2.5 mg 11/27/24 09:00 12/02/24 08:21 Folic Acid 1 Mg Tablet NG 12/27/24 08:59 2.5 mg QDAY CELINA Administration Glucagon 1 mg 11/22/24 09:17 Glucagon Inj 1 Mg Vial IM Q15MIN PRN BG <70, and no IV access Heparin Sodium (Porcine) 3,000 unit 11/29/24 14:28 12/01/24 11:31 Heparin Sod Inj 1000 Unit/Ml Vial 10 Ml INDWELLCAT 12/13/24 14:27 3,000 unit PRN PRN Administration DIALYSIS Fluconazole 200 mg in 100 mls @ 100 mls/hr 11/29/24 09:00 12/02/24 08:26 Diflucan/Ns Ivpb IV 12/06/24 08:59 100 mls/hr QDAY CELINA Administration Albumin Human 25 gm in 100 mls @ 100 mls/min 11/29/24 09:45 Albuminex 25% Ivpb IV PRN PRN DIALYSIS Meropenem 2,000 mg/ Sodium 100 mls @ 100 mls/hr 12/01/24 09:00 12/02/24 08:25 Chloride IV 12/05/24 20:59 100 mls/hr Q12HR CELINA Administration Insulin Degludec 16 unit 12/02/24 10:00 12/02/24 09:13 Insulin Degludec 5 Unit/0.05 Ml (Per 5 Units) SC 01/01/25 09:59 16 unit QDAY CELINA Administration Insulin Human Lispro 0 unit 11/28/24 06:15 12/02/24 11:35 Insulin Lispro (Admelog) 1 Unit/0.01 Ml Unit SC 12/28/24 06:14 3 unit Q6HR CELINA Administration Protocol Lactobacillus Rhamnosus 2 cap 11/28/24 13:45 12/02/24 11:34 Lactobacillus Rhamnosus 1 Cap PO 12/28/24 13:44 2 cap WLUNCH CELINA Administration Lactulose 20 gm 11/30/24 12:00 12/02/24 11:34 Lactulose Syrup 20 Gm/30 Ml Udc PO 12/30/24 11:59 20 gm QID CELINA Administration Protocol Ondansetron HCl 4 mg 11/20/24 10:43 11/26/24 21:26 Ondansetron Inj 2 Mg/Ml Inj 2 Ml IVP 12/20/24 10:42 4 mg Q6HR PRN Administration NAUSEA OR VOMITING Protocol Pantoprazole Sodium 40 mg 11/27/24 09:00 12/02/24 08:23 Pantoprazole Inj 40 Mg Vial IV 12/27/24 08:59 40 mg BID CELINA Administration Rifaximin 550 mg 11/27/24 09:00 12/02/24 08:23 Rifaximin 550 Mg Tablet NG 12/04/24 08:59 550 mg BID CELINA Administration Sodium Chloride 3 ml 11/21/24 07:03 Sodium Chloride Rt Karis 0.9% 3 Ml Nebu INH 12/21/24 07:02 PRN PRN SOLN Sodium Chloride 3 ml 12/02/24 11:04 Sodium Chloride Rt Karis 0.9% 3 Ml Nebu INH 01/01/25 11:03 PRN PRN SOLN Spironolactone 50 mg 11/16/24 10:15 11/18/24 08:50 Spironolactone 25 Mg Tablet PO 12/16/24 10:14 50 mg On Hold: 11/19/24 06:52 DAILY CELINA Administration Thiamine HCl 100 mg 11/28/24 09:00 12/02/24 08:24 Thiamine Inj 100 Mg/Ml Vial 2 Ml IVP 12/28/24 08:59 100 mg QDAY CELINA Administration Plan 54 y/o F with PMHx of decompensated alcoholic cirrhosis (on transplant list), multiple admissions for hepatic encephalopathy, prior variceal bleeding s/p banding, chronic pain, T2DM presents from home with altered mental status, generalized pain, weakness, poor oral intake, and 2 episodes of hematemesis, upgraded to ICU for intubation due to inability to protect airway. Neuro: #Hepatic encephalopathy Dx: - Patient has history of hepatic encephalopathy due to liver cirrhosis. - Per Mother, patient was diagnosed around September 2023 and this is when she stopped completely drinking alcohol as well. - Initial 11/13 ammonia 153, treated with lactulose and rifaximin. - 11/27 patient developed worsening encephalopathy, GCS 7, repeat ammonia 143 , lactulose had been down titrated due to loose stools. - Patient intubated for airway protection. - 11/29 Overnight, less BM's, would not tolerate golytely; ammonia 339 (142) - Bedside ultrasound of eye showed optic nerve diameter ~6.3 mm (N < 5 mm), suspecting possible cerebral edema -12/01: Head CT showed no cerebral edema, no stroke. Rx: - Started dialysis for ammonia elevation, EEG consistent with acute encephalopathy - Broad spectrum abx - Lactulose 20 mg NG 4 times daily - Adequate output with use of lactulose - Trend ammonia, does not always correlate with clinical status - Continue Rifaximin 550 BID - Rectal tube in place - Repeat CT head today given risk of bleeding with coagulopathy/ thrombocytopenia; remains at threshold to avoid excessive transfusion CVS: No active issues. Pulmonary: #Acute hypoxic respiratory failure #Left base pneumonia, likely aspiration Not able to extubate at this time due to patient's mentation not being appropriate for airway protection. The hepatic encephalopathy is likely contributing to this along with possible seizures vs meningitis vs cerebral edema. Dx: -CXR on 11/27 showed L base consolidation consistent with pneumonia, not seen on previous CXR (11/26). -Likely due to aspiration in setting of decreased GCS. Patient intubated for airway protection. -12/02: Patient showed improved mentation, able to follow commands. Tolerated pressure support well for 4 hours. Will evaluate for possible extubation tomorrow. Rx: - Per [facility] for - Fluconazole 200 mg IV qd, Meropenem 2,000 mg IV q12hr, - Blood and sputum cultures- ESBL Klebsiella oxytoca in sputum, blood remains negative at 48 hours - Maintain intubation until patient able to protect airway - Gas exchange and pulmonary mechanics preserved GI: #Fulminant Liver Failure i/s/o End-Stage Liver Disease 2/2 Alcoholic Liver Cirrhosis Dx: -Patient has known history of ESLD, with frequent admission for complications related to liver disease. -Per Mother, patient was diagnosed around September 2023 and this is when she stopped completely drinking alcohol as well. -Admitted for hepatic encephalopathy 11/13. -During hospital stay, patient has acutely decompensated, with worsening coagulopathy, hepatic encephalopathy, pancytopenia. -Minimal ascites, not enough for paracentesis on US on 11/21 -11/27 MELD-Na 40, 71.3% 3 month mortality, with PT>63, INR, undetectably high. Child [place] class C: 82% perioperative mortality. -11/29 Maddrey's Discriminant Function forAlcoholic Hepatitis is 49.3 points -> Poor prognosis, may benefit from glucocorticoid therapy -[facility] declined transfer declined from transplant perspective; they asked for Broad spectrum abx and golytely. -Potential transfer to [place] pending financial authorization and extubation Rx: - Continuing to treat hepatic encephalopathy and coagulopathy - Avoid hepatically metabolized medications when appropriate - Per [facility] Broad spectrum abx and golytely (completed) - GI consulted, appreciate recommendations - Fluconazole 200 mg IV qd, Meropenem 2,000 mg IV q12hr, Vancomycin stopped with negative MRSA screening - Attempt diagnostic paracentesis if enough fluid is found #Esophageal varices Patient history of varices requiring banding. EGD 11/14/24 showed garde 1 varices, mucosal oozing. - GI consulted, appreciate recs - Octreotide drip 5-day course completed - Protonix IV 40mg BID #Tube feedings Patient started on tube feeds due to AMS, inability to eat. Currently intubated. - Dietary consulted, appreciate recommendation - Tube feeds to be continued Renal: #LILY, on temporary dialysis (as above) Ddx: Prerenal dehydration, hepatorenal syndrome, ATN Patient blood pressure and renal function improved with albumin, octreotide, and midodrine. Kidney function has since declined again, despite serum albumin levels elevated to 6.2. Potential ATN due to inability to hepatically metabolize potential nephrotoxins. Dx: -Patient presented with significant LILY, creatinine 2.4 compared to baseline 0.9. -11/29: Cr 1.6 (1.8); still making urine ~55cc/hr overnight -11/30: 200 cc UOP, overnight, HD this AM- 1.5L removed with 2 uPRBC given -12/01 Net negative balance secondary to high stool output -12/02 net negative balance due to high stool output Rx: - Strict I's and O's - HD as per nephrology - Renally dose medication - Avoid nephrotoxins #HAGMA (resolved) DDx: LILY from hepatorenal syndrome, decreased intravascular volume, lactic acidosis. Patient's endstage liver disease appears to be the source of this, causing renal dysfunction, decreasing the ability of the body to rid of acids. Dx: - 11/29: AGAP 24, Bicarb 36.2 - 12/02: Anion gap 13, serum bicarb 26.7 Rx: -continue to optimize vent and treat hepatic encephalopathy/ uremia #hypercalcemia #hypermagnesemia #hypernatremia DDx: Likely due to lactulose and ensuing BM's Dx: -11/29: Ca 11.0 (11.2), Mag 2.7 (2.8), Na 153 (150) -Sodium being elevated may help possible cerebral edema. Rx: -Will continue to trend e-lytes; -Dialysis 11/29, 11/30, 12/01; likely break tomorrow Endo: #T2DM Dx: -Patient has history of T2DM. A1c 6.0 as of 09/25/24. -11/29 glucose 184 (213) Rx: - Long acting insulin 16 qDaily - ISS - Adjust insulin regimen as needed Heme/Onc: #Pancytopenia 2/2 likely cirrhosis and side effect of linezolid (agranulocytosis) -Patient has pancytopenia, reqiuring transfusions of platelets and RBCs during hospital stay. -Hemoglobin currently 7.4, platelets 21. Dx: -11/29 Fibrinogen 145 (71) s/p cryoprecipitate x 4 units (fibrinogen goal of 150-200) Rx: - Monitor hemoglobin and platelets - Transfuse as needed, 1 unit of platelets and 1 unit FFP 12/02 - Transfuse to keep PLT >10k unless invasive procedure #Coagulopathy/ DIC Patient has coagulopathy due to cirrhosis. INR and PTT undetectably high. Noted to have large bruises BUE. Received vitamin K and FFP. Additional platelet and FFP given 12/02. - Monitor for signs of blood loss, none presently- hemolysis from DIC - Check fibrinogen/ PT/INR again ID: #[id number], treatment completed Patient found to have UTI, culture showed VRE. Completed treatment course with linezolid. Has had numerous positive urine cultures for VRE in the past. - Maintain isolation precautions #Aspiration Pneumonia Treat as above -Blood cx's 11/27 NG48 hrs -ET gram stain showed 1+ mixed thad, occasional budding yeast, fungal elements, 2+ wbcs; ET culture ESBL klebsiella oxytoca - Continue on meropenem, Vancomycin stopped with negative MRSA Disposition: ICU; [facility] denied transfer for Liver transplant 11/28 given AMS/ HE; pending financial clearance for evaluation at [facility] DVT prophylaxis: SCD's GI prophylaxis: Protonix Diet: tube feeds Lines: Peripherals, rectal tube, ET tube, right femoral dialysis cath Drips: None Vent: Yes CODE STATUS: Full code Plan of care discussed with attending Dr. Hensley. Rene Cui MD PGY?2 Attending Provider Attestation/Addendum Patient seen and examined with the above resident, Rene Cui MD. I agree with the findings, assessment, and plan of care as documented except for any differences below. Patient with significant improvement in mentation. CT yesterday excluded presence of bleed and cerebral edema. No HD planned for now. Ammonia downtrended appropriately. Patient remains on empiric antibiotics with d/c of vancomycin yesterday, klebsiella oxytoca based on sensitivities. Empiric fluconazole in liver failure. Patient's UOP also improved overnight. Coagulopathy/ thrombocytopenia remains difficult to control, D/C CVC in RIJ after transfusions for today. Check fibrinogen/ INR, PLTs daily given DIC component as well. Some blood secretions in airway, attempted SBT- tolerated well for 4 hours. Retry overnight and plan to extubate tomorrow if airway remains adequately clear of ongoing blood secretions. Patient penidng financial clearance at [facility] and [facility] has placed on hold due to intubation. If weaned will pursue transfer to liver evaluation. Total critical care time: I personally spent 35 minutes for review of physiologic parameters, directing plan of care, coordination of care with other subspecialties, and counseling patient's mother at bedside. This is exclusive of time spent teaching housestaff or performing any separate billable procedures. Patient remains at significant risk for further morbidity and mortality warranting close monitoring and care only available in the ICU. Critical care services required for acute encephalopathy, fulminant liver failure, alcoholic cirrhosis, LILY, and acute respiratory failure.
--- NOTE | 2024-12-02 13:14 | ESPR_ITS ---
Documentation for date of: 12/02/24 Subjective Subjective Interval history: Ms. Knight is a 54-year-old lady with a history of decompensated alcoholic cirrhosis (on transplant list), recurrent hepatic encephalopathy, upper GI bleed secondary to varices/banding, chronic pain syndrome, and type 2 diabetes mellitus. She was initially followed by nephrology earlier this admission for LILY and hyperkalemia which improved after albumin and supportive management. She was later reconsulted for severe hyperammonemia (ammonia 339) and metabolic acidosis requiring initiation of dialysis. 11/29/2024: Patient seen and evaluated in ICU. Intubated, not sedated, RASS -3, withdrawing to pain but no eye tracking. Vitals stable. Liz in place with low urine output. Team reports progressive somnolence and poor mentation over the past 48 hours. Ammonia 339 despite lactulose and rifaximin. Hepatitis panel pending. Plan to initiate dialysis today for ammonia clearance and metabolic control. Labs: WBC 2.3, hemoglobin 7.9, hematocrit 23.5, platelets 12, sodium 153, potassium 3.3, chloride 108, bicarbonate 20, anion gap 24, BUN 45, creatinine 1.6, calcium 10.5, magnesium 2.7, phosphorus 3.3, total bilirubin 7.9, AST 24, ALT 15, alkaline phosphatase 41, albumin 5.7, PT 20, INR 2.0, PTT 45, fibrinogen 145, pH 7.33, pCO2 38, HCO3 20, ammonia 339, osmolality 320, glucose 111, hepatitis panel pending. 11/30/2024 patient currently seen in ICU. Intubated, on ventilator. Isolation. Labs and medications reviewed. Ammonia level significantly elevated above heart initiate dialysis yesterday. Currently on conventional hemodialysis as ammonia is dialyzable. 12/02/2024: Patient seen today in ICU. She is now following simple commands and showing improvement in mentation compared to prior days. Urine output overnight was 800 cc. She remains hemodynamically stable and afebrile. ICU team discussed possible dialysis catheter removal, but decision made to keep the line for one more day and reevaluate tomorrow. Labs: Hemoglobin 8.9 (from 9.7 yesterday), hematocrit 23.5, platelets 6 (from 11 yesterday), PT 23, INR 2.4, PTT 53.4, sodium 145, potassium 3.7, chloride 105, bicarbonate 26.7, creatinine 1.4 (from 1.3 yesterday), GFR 45, calcium 9.9, phosphorus 3.4, magnesium 2.8, total bilirubin 8.4, ammonia 98 (down from 161 yesterday), troponin 45. Exam Vital Signs Temp Pulse Resp BP Pulse Ox O2 Del Method O2 Flow Rate 98.1 F 86 16 126/89 H 100 Mechanical Ventilation 35 12/02/24 12:34 12/02/24 12:34 12/02/24 12:34 12/02/24 12:34 12/02/24 12:34 12/02/24 08:00 12/02/24 12:19 FiO2 35 12/02/24 10:30 Narrative Exam General: Seen in ICU, intubated, following commands intermittently, no acute distress. HEENT: Scleral icterus noted, mucous membranes moist. Neck: Supple, no JVD or bruit. Cardiovascular: Regular rate and rhythm, no murmurs. Respiratory: On ventilator, equal breath sounds bilaterally, no wheezing or crackles. Abdomen: Soft, mildly distended, non-tender, ascites present. EXT: No edema, dialysis catheter in place. Skin: Jaundiced, scattered bruising. Neurological: Awake, intermittently following commands, moves extremities on command, improved mentation. Objective Labs 12/02/24 04:30 12/02/24 04:30 Labs: Laboratory Results - last 24 hr 11/30/24 12/01/24 12/01/24 08:05 14:10 16:15 WBC RBC Hgb Hct MCV MCH MCHC RDW Std Deviation Plt Count Neut % (Auto) Lymph % (Auto) [place] % (Auto) Eos % (Auto) Baso % (Auto) Neut # (Auto) Lymph # (Auto) [place] # (Auto) Eos # (Auto) Baso # (Auto) Immature Gran # (Auto) Absolute Nucleated RBC Immature Gran % Nucleated RBC % PT 24.7 H INR 2.5 H APTT Fibrinogen 110 L Sodium 141 Potassium 2.9 L Chloride 101 Carbon Dioxide 25.5 Anion Gap 15 BUN 25 H Creatinine 1.3 Estim Creat Clear Calc 44.6 L eGFR 49 L BUN/Creatinine Ratio 19 Glucose 236 H Calculated Osmolality 293 Calcium 9.6 Corrected Calcium Phosphorus 1.4 L Magnesium 2.5 Total Bilirubin AST ALT Alkaline Phosphatase Ammonia 161 H* Total Protein Albumin Globulin Albumin/Globulin Ratio Vancomycin Trough Misc Test Result Blood Type O Positive Antibody Screen NEGATIVE Crossmatch See Detail Blood Bank Wristband ID Yes 12/01/24 12/02/24 21:07 04:30 WBC 2.6 L RBC 2.90 L Hgb 8.9 L Hct 25.6 L MCV 88 MCH 30.7 MCHC 34.8 RDW Std Deviation 62.9 H Plt Count 6 L* D Neut % (Auto) 59 Lymph % (Auto) 28 [place] % (Auto) 6 Eos % (Auto) 7 Baso % (Auto) 0 Neut # (Auto) 1.5 L Lymph # (Auto) 0.7 L [place] # (Auto) 0.2 Eos # (Auto) 0.2 Baso # (Auto) 0.0 Immature Gran # (Auto) 0.01 H Absolute Nucleated RBC 0.00 Immature Gran % 0 Nucleated RBC % 0 PT 23.5 H INR 2.4 H APTT 53.4 H Fibrinogen Sodium 145 Potassium 3.7 D Chloride 105 Carbon Dioxide 26.7 Anion Gap 13 BUN 45 H Creatinine 1.4 H Estim Creat Clear Calc 41.4 L eGFR 45 L BUN/Creatinine Ratio 32 H Glucose 245 H Calculated Osmolality 308 H Calcium 9.9 Corrected Calcium 9.9 Phosphorus 3.4 Magnesium 2.8 H Total Bilirubin 8.4 H AST 25 ALT 15 Alkaline Phosphatase 82 Ammonia 98 H* Total Protein 6.6 Albumin 4.7 Globulin 1.9 L Albumin/Globulin Ratio 2.5 H Vancomycin Trough 21.9 H* Misc Test Result Platelets confirmed Blood Type Antibody Screen Crossmatch Blood Bank Wristband ID ABG Interpretation ABG results: 11/27/24 11/27/24 11/28/24 14:52 21:14 04:57 ABG pH 7.31 L 7.34 L 7.36 ABG pCO2 44 39 34 ABG pO2 91 154 H D 168 H ABG HCO3 22 21 19 L ABG O2 Saturation 98 100 H 100 H ABG Base Excess -4 L -5 L -6 L 11/29/24 04:05 ABG pH 7.33 L ABG pCO2 38 ABG pO2 127 H D ABG HCO3 20 ABG O2 Saturation 99 H ABG Base Excess -5 L Quality Measures Quality Measures VTE prophylaxis Assessment & Plan Assessment Current Active Medications: Generic Name Dose Route Start Last Admin Trade Name Freq PRN Reason Stop Dose Admin Albuterol 2.5 mg 12/02/24 11:04 Albuterol Rt 2.5 Mg/0.5 Ml Nebu INH 01/01/25 14:59 Q4HRRT PRN RESPIRATORY DISTRESS Cyanocobalamin 1,000 mcg 11/27/24 09:00 12/02/24 08:22 Cyanocobalamin 500 Mcg Tablet NG 12/27/24 08:59 1,000 mcg QDAY CELINA Administration Dextrose 25 ml 11/22/24 09:17 Dextrose 50%-Water Inj 50 Ml Syringe IV 12/22/24 09:16 Q15MIN PRN BG 50-70 responsive npo pt Dextrose 50 ml 11/22/24 09:17 Dextrose 50%-Water Inj 50 Ml Syringe IV 12/22/24 09:16 Q15MIN PRN BG <50 OR BG <70 & pt unresponsive Folic Acid 2.5 mg 11/27/24 09:00 12/02/24 08:21 Folic Acid 1 Mg Tablet NG 12/27/24 08:59 2.5 mg QDAY CELINA Administration Glucagon 1 mg 11/22/24 09:17 Glucagon Inj 1 Mg Vial IM Q15MIN PRN BG <70, and no IV access Heparin Sodium (Porcine) 3,000 unit 11/29/24 14:28 12/01/24 11:31 Heparin Sod Inj 1000 Unit/Ml Vial 10 Ml INDWELLCAT 12/13/24 14:27 3,000 unit PRN PRN Administration DIALYSIS Fluconazole 200 mg in 100 mls @ 100 mls/hr 11/29/24 09:00 12/02/24 08:26 Diflucan/Ns Ivpb IV 12/06/24 08:59 100 mls/hr QDAY CELINA Administration Albumin Human 25 gm in 100 mls @ 100 mls/min 11/29/24 09:45 Albuminex 25% Ivpb IV PRN PRN DIALYSIS Meropenem 2,000 mg/ Sodium 100 mls @ 100 mls/hr 12/01/24 09:00 12/02/24 08:25 Chloride IV 12/05/24 20:59 100 mls/hr Q12HR CELINA Administration Insulin Degludec 16 unit 12/02/24 10:00 12/02/24 09:13 Insulin Degludec 5 Unit/0.05 Ml (Per 5 Units) SC 01/01/25 09:59 16 unit QDAY CELINA Administration Insulin Human Lispro 0 unit 11/28/24 06:15 12/02/24 11:35 Insulin Lispro (Admelog) 1 Unit/0.01 Ml Unit SC 12/28/24 06:14 3 unit Q6HR CELINA Administration Protocol Lactobacillus Rhamnosus 2 cap 11/28/24 13:45 12/02/24 11:34 Lactobacillus Rhamnosus 1 Cap PO 12/28/24 13:44 2 cap WLUNCH CELINA Administration Lactulose 20 gm 11/30/24 12:00 12/02/24 11:34 Lactulose Syrup 20 Gm/30 Ml Udc PO 12/30/24 11:59 20 gm QID CELINA Administration Protocol Ondansetron HCl 4 mg 11/20/24 10:43 11/26/24 21:26 Ondansetron Inj 2 Mg/Ml Inj 2 Ml IVP 12/20/24 10:42 4 mg Q6HR PRN Administration NAUSEA OR VOMITING Protocol Pantoprazole Sodium 40 mg 11/27/24 09:00 12/02/24 08:23 Pantoprazole Inj 40 Mg Vial IV 12/27/24 08:59 40 mg BID CELINA Administration Rifaximin 550 mg 11/27/24 09:00 12/02/24 08:23 Rifaximin 550 Mg Tablet NG 12/04/24 08:59 550 mg BID CELINA Administration Sodium Chloride 3 ml 11/21/24 07:03 Sodium Chloride Rt Karis 0.9% 3 Ml Nebu INH 12/21/24 07:02 PRN PRN SOLN Sodium Chloride 3 ml 12/02/24 11:04 Sodium Chloride Rt Karis 0.9% 3 Ml Nebu INH 01/01/25 11:03 PRN PRN SOLN Spironolactone 50 mg 11/16/24 10:15 11/18/24 08:50 Spironolactone 25 Mg Tablet PO 12/16/24 10:14 50 mg On Hold: 11/19/24 06:52 DAILY CELINA Administration Thiamine HCl 100 mg 11/28/24 09:00 12/02/24 08:24 Thiamine Inj 100 Mg/Ml Vial 2 Ml IVP 12/28/24 08:59 100 mg QDAY CELINA Administration Plan 54-year-old female with end-stage liver disease complicated by hepatic encephalopathy, coagulopathy, and LILY requiring intermittent dialysis for ammonia clearance. Now showing neurological improvement and stable renal indices. #Acute Kidney Injury (LILY) Multifactorial (hepatorenal vs ATN) Creatinine 1.4 (from 1.3 yesterday), urine output 800 cc overnight, stable hemodynamics. Plan: * Continue to monitor renal function and urine output * No indication for dialysis today * Maintain euvolemia; avoid nephrotoxins * ICU to reassess catheter removal tomorrow * Daily BMP, strict I/O #Severe Hyperammonemia (improving) Ammonia decreased to 98 (from 161 yesterday) after prior dialysis and medical therapy. Plan: * Continue lactulose and rifaximin * Trend ammonia levels * No further dialysis required today as levels continue to decline Other active problems: #Left base pneumonia, likely aspiration #Acute decompensated liver failure #Esophageal varices #Tube feedings #Hypercalcemia #Hypomagnesemia #Hyper natremia #T2DM #Pancytopenia #VRE, treated completed #Aspiration pneumonia Management per ICU team ----- Plan discussed with attending physician Dr. Yenny Raya MD PGY-1 Internal Medicine Attending Provider Attestation/Addendum Patient seen and examined with resident physician Dr. Raya. Note reviewed, agree with findings and recommendations. Patient made 800 cc of urine. Creatinine and ammonia level seems to be better. Hold off on dialysis today watch for renal recovery. Leave dialysis catheter today.
[2024-12-02] MEDS: INSULIN DEGLUDEC 5 UNIT/0.05 ML (PER 5 UNITS) 4 UNIT SC (17:32)
--- NOTE | 2024-12-02 17:32 | ESPR_ITS ---
Documentation for date of: 12/02/24 Subjective Subjective Interval history: Patient evaluated Remains mechanically ventilated On NGT feeding at 60 cc an hour tolerating it Exam Vital Signs Temp Pulse Resp BP Pulse Ox O2 Del Method O2 Flow Rate 98.1 F 75 16 118/61 100 Mechanical Ventilation 35 12/02/24 16:27 12/02/24 17:00 12/02/24 16:27 12/02/24 17:00 12/02/24 17:00 12/02/24 16:00 12/02/24 12:19 FiO2 35 12/02/24 16:00 Objective Labs 12/02/24 04:30 12/02/24 04:30 Labs: Laboratory Results - last 24 hr 11/30/24 12/01/24 12/02/24 08:05 21:07 04:30 WBC 2.6 L RBC 2.90 L Hgb 8.9 L Hct 25.6 L MCV 88 MCH 30.7 MCHC 34.8 RDW Std Deviation 62.9 H Plt Count 6 L* D Neut % (Auto) 59 Lymph % (Auto) 28 [place] % (Auto) 6 Eos % (Auto) 7 Baso % (Auto) 0 Neut # (Auto) 1.5 L Lymph # (Auto) 0.7 L [place] # (Auto) 0.2 Eos # (Auto) 0.2 Baso # (Auto) 0.0 Immature Gran # (Auto) 0.01 H Absolute Nucleated RBC 0.00 Immature Gran % 0 Nucleated RBC % 0 PT 23.5 H INR 2.4 H APTT 53.4 H Sodium 145 Potassium 3.7 D Chloride 105 Carbon Dioxide 26.7 Anion Gap 13 BUN 45 H Creatinine 1.4 H Estim Creat Clear Calc 41.4 L eGFR 45 L BUN/Creatinine Ratio 32 H Glucose 245 H Calculated Osmolality 308 H Calcium 9.9 Corrected Calcium 9.9 Phosphorus 3.4 Magnesium 2.8 H Total Bilirubin 8.4 H AST 25 ALT 15 Alkaline Phosphatase 82 Ammonia 98 H* Total Protein 6.6 Albumin 4.7 Globulin 1.9 L Albumin/Globulin Ratio 2.5 H Vancomycin Trough 21.9 H* Misc Test Result Platelets confirmed Blood Type O Positive Antibody Screen NEGATIVE Crossmatch See Detail Blood Bank Wristband ID Yes Blood Bank Comment PLATP Ready Impressions Impression: Hepatic metabolic encephalopathy Chronic liver disease LILY Stable upper GI bleed Mechanically ventilated Continue current management ABG Interpretation ABG results: 10/14/25 10/14/25 10/15/25 14:52 21:14 04:57 ABG pH 7.31 L 7.34 L 7.36 ABG pCO2 44 39 34 ABG pO2 91 154 H D 168 H ABG HCO3 22 21 19 L ABG O2 Saturation 98 100 H 100 H ABG Base Excess -4 L -5 L -6 L 11/29/24 04:05 ABG pH 7.33 L ABG pCO2 38 ABG pO2 127 H D ABG HCO3 20 ABG O2 Saturation 99 H ABG Base Excess -5 L Assessment & Plan A&P Narrative uti , mild with vre as only germ found po linezolid ok for this for total of 7d, cirrhosis, etoh related home at your discretion.if abd pain persists, then evaluate ascites will see again prn Time Spent With Patient Time: Total time spent is greater than 50% in coordination of care (as documented) at patient's floor/unit and/or counseling patient:
--- NOTE | 2024-12-02 22:52 | PC.NURSE ---
Received call from Gilda at [facility] gave her updated vital signs and current medications for patient. Per Gilda Patient currently still on possible Hold for [facility] once neuro status improves.
[2024-12-03] VITALS (67 sets, daily range): BP systolic 101–132; BP diastolic 58–80; PULSE 71–92; RESP 10–20; TEMP 36.3–36.7; O2SAT 98–100; BMI 34.4
[2024-12-03] MEDS: INSULIN LISPRO (AdmeLOG) 1 UNIT/0.01 ML UNIT SC ×5 (00:08→23:58)
[2024-12-03 00:36] LABS: Allen Test Performed/OK; Base Excess 6 (-3-3); HCO3 30 mEq/L (20-26); Inspired Oxygen, FIO2 35 %; O2 Saturation 99 % (91-98); PCO2 43 mmHg (32.0-48.0); PO2 97 mmHg (83-108); Puncture Site Right Radial; pH, Arterial 7.46 (7.35-7.45)
--- NOTE | 2024-12-03 00:39 | PC.RT ---
SBT attempted with Dr Otto at bedside. Pt did not take any spontaneous breaths and quickly triggered the apnea back up ventilation alarms. Pt was placed on Vol/SIMV 375, RR12, PS10, Peep5 per VORB Dr Otto. Repeat ABG and reattempt SBT in the AM
[2024-12-03 04:44] LABS: Base Excess 6 (-3-3); HCO3 31 mEq/L (20-26); Inspired Oxygen, FIO2 21 %; O2 Saturation 99 % (91-98); PCO2 50 mmHg (32.0-48.0); PO2 113 mmHg (83-108); pH, Arterial 7.41 (7.35-7.45)
[2024-12-03 04:45] LABS: Allen Test Performed/OK; Puncture Site Right Radial
[2024-12-03] MEDS: LACTULOSE SYRUP 20 GM/30 ML UDC PO ×4 (05:36→20:40)
[2024-12-03 06:54] LABS: Basophils # (Auto) 0.0 Thou/mm3 (0.0-0.2); Basophils % (Auto) 1 % (0-2.5); Eosinophils # (Auto) 0.1 Thou/mm3 (0.0-0.5); Eosinophils % (Auto) 6 % (0-10); Fibrinogen 102 mg/dL (175-375); Hematocrit 22.6 % (36.0-46.0); INR 1.9 (0.9-1.3); Immature Granulocytes Auto 0.01 Thou/mm3 (0.00-0.00); Lymphocytes # (Auto) 0.7 Thou/mm3 (1.0-4.8); Lymphocytes % (Auto) 39 % (10-50); Mean Corpuscular HGB Conc 34.5 g/dl (31.0-37.0); Mean Corpuscular Hemoglobin 31.3 pg (25.0-35.0); Mean Corpuscular Volume 91 fL (80-100); Monocytes # (Auto) 0.1 Thou/mm3 (0.0-0.8); Monocytes % (Auto) 8 % (0-12); Neutrophils # (Auto) 0.8 Thou/mm3 (1.8-7.7); Neutrophils % (Auto) 46 % (37-80); Nucleated Red Blood Cell # 0.00 Thou/mm3 (0.00-0.00); Nucleated Red Blood Cell % 0 /100 WBC (0); Partial Thromboplastin Time 40.9 Seconds (22.0-36.0); Prothrombin Time 19.2 Seconds (9.0-12.2); RDW Standard Deviation 65.5 fL (36.4-46.3); Red Blood Count 2.49 Miln/mm3 (4.00-5.20); White Blood Count 1.7 Thou/mm3 (3.6-11.0)
[2024-12-03 07:02] LABS: Hemoglobin 7.8 g/dL (12.0-16.0); Platelet Count 16 Thou/mm3 (140-440)
[2024-12-03 07:03] LABS: Alanine Aminotransferase 18 U/L (10-49); Albumin, Serum 4.9 gm/dL (3.5-5.0); Albumin/Globulin Ratio 2.1 (1.2-2.2); Alkaline Phosphatase 121 U/L (46-116); Anion Gap 12 (7-16); Aspartate Amino Transferase 29 U/L (0-34); BUN/Creatinine Ratio 25 Ratio (12-20); Bilirubin,Total 7.4 mg/dL (0.3-1.2); Blood Urea Nitrogen 32 mg/dL (9-23); Calcium 11.1 mg/dL (8.3-10.6); Calcium (Corrected) 11.1 mg/dL (8.5-10.1); Carbon Dioxide 30.8 mMol/L (20.0-31.0); Chloride 107 mMol/L (98-107); Creatinine (Component) 1.3 mg/dL (0.6-1.3); Estimated Creatinine Clearance 44.9 mL/min (>60); Globulin 2.3 gm/dL (2.3-3.5); Glucose 210 mg/dL (74-106); Magnesium 2.7 mg/dL (1.6-2.6); Osmolality,Calculated 310 (275-295); Phosphorous 2.8 mg/dL (2.4-5.1); Potassium 3.3 mMol/L (3.4-5.1); Slide Review Platelets confirmed; Sodium 150 mMol/L (136-145); Total Protein 7.2 gm/dL (5.7-8.2); eGFR 49 See Note
[2024-12-03] MEDS: FOLIC ACID 1 MG TABLET 2.5 MG NG (08:09)
[2024-12-03] MEDS: FLUCONAZOLE/NS 200 MG IVPB 200 MG/100 ML BAG 100 MG IV (08:09)
[2024-12-03] MEDS: THIAMINE INJ 100 MG/ML VIAL 2 ML IVP (08:10)
[2024-12-03] MEDS: INSULIN DEGLUDEC 5 UNIT/0.05 ML (PER 5 UNITS) 20 UNIT SC (08:11)
[2024-12-03] MEDS: POTASSIUM CHLORIDE 10% 20 MEQ/15 ML UDC 40 MEQ GT (08:17)
--- NOTE | 2024-12-03 08:33 | PC.CC ---
Addendum entered by Judson Hughes RN 12/03/24 20:01: 1813: spoke to Yeimi w/ [facility], she stated that doctor is reviewing updated clinicals. Pt is accepted but not pending a bed yet. She requested contact info for the MD for peer to peer. Pt is still in the ICU w/ tele orders. I provided Dr. Hensley contact infor and night attending info. Also provide the ICU contact info. Transfer nurse to f/u with [facility] tomorrow. I was unable to get ahold of them today. Addendum entered by Judson Hughes RN 12/03/24 16:52: spoke to Dr. Sosa about this case. MD made aware ins co has not returned any of my calls. [facility] activated the case since the patient has been extubated and downgraded. Per Mynor alfaro/ [facility], the pt has been on their board since 11/22 and will work diligently to get her transferred. I spoke to Dasha alfaro/ [facility], she stated once patient is financially clear, pt will be put on a waiting list and transfer will not be quick. I left a messages for Mariluz and Fransisca at [facility]. They have not returned my call. Dr. Sosa aware of the possibility of the [facility] auth that is already in place may be canceled once we obtain auth for [facility]. He would like to stay in close communication with [facility] at this time. Addendum entered by Judson Hughes RN 12/03/24 15:13: reached out Mariluz w/ [facility], left VM to return my call. Addendum entered by Judson Hughes RN 12/03/24 15:13: up-to-date clinicals and dc summary faxed to [facility]. Addendum entered by Judson Hughes RN 12/03/24 13:38: up-to-date clinicals and dc summary faxed to [facility]. Addendum entered by Judson Hughes RN 12/03/24 13:28: Printed clinicals from 11/27/24 to 12/03/24. Created CD #2 with the rest of the imaging that is not on CD #1. Addendum entered by Judson Hughes RN 12/03/24 12:37: 1235: spoke to Dr. Handy, DC summary still states pt is pending extubation. He stated he is still working on it and will update it. Pt is now extubated Addendum entered by Judson Hughes RN 12/03/24 10:12: 1007: called ICU, spoke to Dr. Handy, provided him with information requested from [facility]. He stated he will inform Dr. Villasenor 1000: Called [facility], spoke to Shelli. She stated case was still open but on hold for clinicals. I provided update. She stated, pt will need to be downgraded, update clinical and dc summary needs to be sent. [id number]: received call from Dr. Villasenor stated pt has been extubated and to reinitate transfer w/ [facility]. Informed him an updated clinical note will be needed. He stated that he is working on that now. He also stated that if a downgrade is need, it will most likely be entered later this afternoon. Addendum entered by Judson Huhges RN 12/03/24 08:52: 0850: spoke to [facility]/ [facility], informed him I am waiting to hear back from the insurance company with the auth. Original Note: [id number]: called viri Velazquez to return my call for a new auth
--- NOTE | 2024-12-03 08:36 | ESPR_ITS ---
Documentation for date of: 12/03/24 Subjective Subjective Interval history: Ms. Knight is a 54-year-old lady with a history of decompensated alcoholic cirrhosis (on transplant list), recurrent hepatic encephalopathy, upper GI bleed secondary to varices/banding, chronic pain syndrome, and type 2 diabetes mellitus. She was initially followed by nephrology earlier this admission for LILY and hyperkalemia which improved after albumin and supportive management. She was later reconsulted for severe hyperammonemia (ammonia 339) and metabolic acidosis requiring initiation of dialysis. 11/29/2024: Patient seen and evaluated in ICU. Intubated, not sedated, RASS -3, withdrawing to pain but no eye tracking. Vitals stable. Liz in place with low urine output. Team reports progressive somnolence and poor mentation over the past 48 hours. Ammonia 339 despite lactulose and rifaximin. Hepatitis panel pending. Plan to initiate dialysis today for ammonia clearance and metabolic control. Labs: WBC 2.3, hemoglobin 7.9, hematocrit 23.5, platelets 12, sodium 153, potassium 3.3, chloride 108, bicarbonate 20, anion gap 24, BUN 45, creatinine 1.6, calcium 10.5, magnesium 2.7, phosphorus 3.3, total bilirubin 7.9, AST 24, ALT 15, alkaline phosphatase 41, albumin 5.7, PT 20, INR 2.0, PTT 45, fibrinogen 145, pH 7.33, pCO2 38, HCO3 20, ammonia 339, osmolality 320, glucose 111, hepatitis panel pending. 11/30/2024 patient currently seen in ICU. Intubated, on ventilator. Isolation. Labs and medications reviewed. Ammonia level significantly elevated above heart initiate dialysis yesterday. Currently on conventional hemodialysis as ammonia is dialyzable. 12/02/2024: Patient seen today in ICU. She is now following simple commands and showing improvement in mentation compared to prior days. Urine output overnight was 800 cc. She remains hemodynamically stable and afebrile. ICU team discussed possible dialysis catheter removal, but decision made to keep the line for one more day and reevaluate tomorrow. Labs: Hemoglobin 8.9 (from 9.7 yesterday), hematocrit 23.5, platelets 6 (from 11 yesterday), PT 23, INR 2.4, PTT 53.4, sodium 145, potassium 3.7, chloride 105, bicarbonate 26.7, creatinine 1.4 (from 1.3 yesterday), GFR 45, calcium 9.9, phosphorus 3.4, magnesium 2.8, total bilirubin 8.4, ammonia 98 (down from 161 yesterday), troponin 45. 12/03/2024: Patient seen today in ICU. She remains intubated but is now following commands and currently on pressure support mode for ventilator weaning in anticipation of possible extubation. Urine output has improved significantly 2 L in the past 24 hours. No hemodialysis since ammonia and renal function have improved. Decision made to remove dialysis catheter today. Sodium noted to be elevated at 150; will suggest starting D5 infusion for gentle free water replacement. Labs: WBC 1.7, Hgb 7.8, Hct 22.6, Plt 16, Na 150, K 3.3, Cl 107, CO2 30, Cr 1.3, Ca 11.1, Mg 2.7, Phos 2.8. Exam Vital Signs Temp Pulse Resp BP Pulse Ox O2 Del Method O2 Flow Rate 97.8 F 80 16 123/73 100 Mechanical Ventilation 35 12/02/24 21:00 12/03/24 07:00 12/02/24 18:00 12/03/24 07:00 12/03/24 07:00 12/02/24 16:00 12/02/24 12:19 FiO2 35 12/03/24 06:10 Narrative Exam General: Seen in ICU, intubated, following commands intermittently, no acute distress. HEENT: Scleral icterus noted, mucous membranes moist. Neck: Supple, no JVD or bruit. Cardiovascular: Regular rate and rhythm, no murmurs. Respiratory: On ventilator, equal breath sounds bilaterally, no wheezing or crackles. Abdomen: Soft, mildly distended, non-tender, ascites present. EXT: No edema, dialysis catheter in place. Skin: Jaundiced, scattered bruising. Neurological: Awake, intermittently following commands, moves extremities on command, improved mentation. Objective Labs 12/04/24 04:31 12/04/24 04:31 Labs: Laboratory Results - last 24 hr 11/30/24 12/03/24 12/03/24 08:05 00:26 04:28 WBC 1.7 L RBC 2.49 L Hgb 7.8 L Hct 22.6 L MCV 91 MCH 31.3 MCHC 34.5 RDW Std Deviation 65.5 H Plt Count 16 L* D Neut % (Auto) 46 Lymph % (Auto) 39 [place] % (Auto) 8 Eos % (Auto) 6 Baso % (Auto) 1 Neut # (Auto) 0.8 L Lymph # (Auto) 0.7 L [place] # (Auto) 0.1 Eos # (Auto) 0.1 Baso # (Auto) 0.0 Immature Gran # (Auto) 0.01 H Absolute Nucleated RBC 0.00 Immature Gran % 1 H Nucleated RBC % 0 PT 19.2 H D INR 1.9 H APTT 40.9 H D Fibrinogen 102 L Puncture Site Right Radial ABG pH 7.46 H ABG pCO2 43 ABG pO2 97 ABG HCO3 30 H ABG O2 Saturation 99 H ABG Base Excess 6 H FiO2 35 Sodium 150 H Potassium 3.3 L Chloride 107 Carbon Dioxide 30.8 Anion Gap 12 BUN 32 H Creatinine 1.3 Estim Creat Clear Calc 44.9 L eGFR 49 L BUN/Creatinine Ratio 25 H Glucose 210 H Calculated Osmolality 310 H Calcium 11.1 H Corrected Calcium 11.1 H Phosphorus 2.8 Magnesium 2.7 H Total Bilirubin 7.4 H D AST 29 ALT 18 Alkaline Phosphatase 121 H D Total Protein 7.2 Albumin 4.9 Globulin 2.3 Albumin/Globulin Ratio 2.1 Misc Test Result Platelets confirmed Blood Type O Positive Antibody Screen NEGATIVE Crossmatch See Detail Blood Bank Wristband ID Yes Blood Bank Comment PLATP Ready 12/03/24 04:31 WBC RBC Hgb Hct MCV MCH MCHC RDW Std Deviation Plt Count Neut % (Auto) Lymph % (Auto) [place] % (Auto) Eos % (Auto) Baso % (Auto) Neut # (Auto) Lymph # (Auto) [place] # (Auto) Eos # (Auto) Baso # (Auto) Immature Gran # (Auto) Absolute Nucleated RBC Immature Gran % Nucleated RBC % PT INR APTT Fibrinogen Puncture Site Right Radial ABG pH 7.41 ABG pCO2 50 H ABG pO2 113 H ABG HCO3 31 H ABG O2 Saturation 99 H ABG Base Excess 6 H FiO2 21 Sodium Potassium Chloride Carbon Dioxide Anion Gap BUN Creatinine Estim Creat Clear Calc eGFR BUN/Creatinine Ratio Glucose Calculated Osmolality Calcium Corrected Calcium Phosphorus Magnesium Total Bilirubin AST ALT Alkaline Phosphatase Total Protein Albumin Globulin Albumin/Globulin Ratio Misc Test Result Blood Type Antibody Screen Crossmatch Blood Bank Wristband ID Blood Bank Comment ABG Interpretation ABG results: 11/27/24 11/27/24 11/28/24 14:52 21:14 04:57 ABG pH 7.31 L 7.34 L 7.36 ABG pCO2 44 39 34 ABG pO2 91 154 H D 168 H ABG HCO3 22 21 19 L ABG O2 Saturation 98 100 H 100 H ABG Base Excess -4 L -5 L -6 L 11/29/24 12/03/24 12/03/24 04:05 00:26 04:31 ABG pH 7.33 L 7.46 H 7.41 ABG pCO2 38 43 50 H ABG pO2 127 H D 97 113 H ABG HCO3 20 30 H 31 H ABG O2 Saturation 99 H 99 H 99 H ABG Base Excess -5 L 6 H 6 H Quality Measures Quality Measures VTE prophylaxis Assessment & Plan Assessment Current Active Medications: Generic Name Dose Route Start Last Admin Trade Name Freq PRN Reason Stop Dose Admin Albuterol 2.5 mg 12/02/24 11:04 Albuterol Rt 2.5 Mg/0.5 Ml Nebu INH 01/01/25 14:59 Q4HRRT PRN RESPIRATORY DISTRESS Cyanocobalamin 1,000 mcg 11/27/24 09:00 12/03/24 08:09 Cyanocobalamin 500 Mcg Tablet NG 12/27/24 08:59 1,000 mcg QDAY CELINA Administration Dextrose 25 ml 11/22/24 09:17 Dextrose 50%-Water Inj 50 Ml Syringe IV 12/22/24 09:16 Q15MIN PRN BG 50-70 responsive npo pt Dextrose 50 ml 11/22/24 09:17 Dextrose 50%-Water Inj 50 Ml Syringe IV 12/22/24 09:16 Q15MIN PRN BG <50 OR BG <70 & pt unresponsive Folic Acid 2.5 mg 11/27/24 09:00 12/03/24 08:09 Folic Acid 1 Mg Tablet NG 12/27/24 08:59 2.5 mg QDAY CELINA Administration Glucagon 1 mg 11/22/24 09:17 Glucagon Inj 1 Mg Vial IM Q15MIN PRN BG <70, and no IV access Heparin Sodium (Porcine) 3,000 unit 11/29/24 14:28 12/01/24 11:31 Heparin Sod Inj 1000 Unit/Ml Vial 10 Ml INDWELLCAT 12/13/24 14:27 3,000 unit PRN PRN Administration DIALYSIS Fluconazole 200 mg in 100 mls @ 100 mls/hr 11/29/24 09:00 12/03/24 08:09 Diflucan/Ns Ivpb IV 12/06/24 08:59 100 mls/hr QDAY CELINA Administration Albumin Human 25 gm in 100 mls @ 100 mls/min 11/29/24 09:45 Albuminex 25% Ivpb IV PRN PRN DIALYSIS Meropenem 2,000 mg/ Sodium 100 mls @ 100 mls/hr 12/01/24 09:00 12/02/24 21:26 Chloride IV 12/05/24 20:59 Infused Q12HR CELINA Infusion Insulin Degludec 20 unit 12/03/24 09:00 12/03/24 08:11 Insulin Degludec 5 Unit/0.05 Ml (Per 5 Units) SC 01/02/25 08:59 20 unit QDAY CELINA Administration Insulin Human Lispro 0 unit 12/02/24 17:27 12/03/24 05:36 Insulin Lispro (Admelog) 1 Unit/0.01 Ml Unit SC 12/28/24 06:14 3 unit Q6HR CELINA Administration Protocol Lactobacillus Rhamnosus 2 cap 11/28/24 13:45 12/02/24 11:34 Lactobacillus Rhamnosus 1 Cap PO 12/28/24 13:44 2 cap WLUNCH CELINA Administration Lactulose 20 gm 11/30/24 12:00 12/03/24 05:36 Lactulose Syrup 20 Gm/30 Ml Udc PO 12/30/24 11:59 20 gm QID CELINA Administration Protocol Ondansetron HCl 4 mg 11/20/24 10:43 11/26/24 21:26 Ondansetron Inj 2 Mg/Ml Inj 2 Ml IVP 12/20/24 10:42 4 mg Q6HR PRN Administration NAUSEA OR VOMITING Protocol Pantoprazole Sodium 40 mg 11/27/24 09:00 12/03/24 08:10 Pantoprazole Inj 40 Mg Vial IV 12/27/24 08:59 40 mg BID CELINA Administration Rifaximin 550 mg 11/27/24 09:00 12/03/24 08:11 Rifaximin 550 Mg Tablet NG 12/04/24 08:59 550 mg BID CELINA Administration Sodium Chloride 3 ml 12/02/24 11:04 Sodium Chloride Rt Karis 0.9% 3 Ml Nebu INH 01/01/25 11:03 PRN PRN SOLN Spironolactone 50 mg 11/16/24 10:15 11/18/24 08:50 Spironolactone 25 Mg Tablet PO 12/16/24 10:14 50 mg On Hold: 11/19/24 06:52 DAILY CELINA Administration Thiamine HCl 100 mg 11/28/24 09:00 12/03/24 08:10 Thiamine Inj 100 Mg/Ml Vial 2 Ml IVP 12/28/24 08:59 100 mg QDAY CELINA Administration Plan 54-year-old female with end-stage liver disease complicated by hepatic encephalopathy, coagulopathy, and LILY requiring intermittent dialysis for ammonia clearance. Now showing neurological improvement and stable renal indices. #Acute Kidney Injury (LILY) Multifactorial (hepatorenal vs ATN) Creatinine stable at 1.3 with excellent urine output (2 L/24 hr). Plan: * No dialysis indicated, renal function improving * Remove dialysis catheter today * Maintain strict I/O and continue to monitor daily renal panel * Start D5 infusion for mild hypernatremia (Na 150) * Continue to avoid nephrotoxins and renally dose medications * Monitor electrolytes and renal trend closely #Severe Hyperammonemia (improving) Ammonia decreased to 98 (from 161 yesterday) after prior dialysis and medical therapy. Plan: * Continue lactulose and rifaximin * Trend ammonia levels * No further dialysis required today as levels continue to decline Other active problems: #Left base pneumonia, likely aspiration #Acute decompensated liver failure #Esophageal varices #Tube feedings #Hypercalcemia #Hypomagnesemia #Hyper natremia #T2DM #Pancytopenia #VRE, treated completed #Aspiration pneumonia Management per ICU team ----- Plan discussed with attending physician Dr. Yenny Raya MD PGY-1 Internal Medicine Attending Provider Attestation/Addendum Patient seen and examined with resident physician Dr. Raya. Note reviewed, agree with findings and recommendations. Urine output improved. Patient intubated-possible extubation today. Will hold off on dialysis. Will DC dialysis catheter. Spoke to ICU team.
[2024-12-03] MEDS: MEROPENEM INJ 2,000 MG in SODIUM CHLORIDE 0.9% 100 ML 100 MG IV ×2 (09:02→19:51)
--- NOTE | 2024-12-03 09:56 | ESPR_ITS ---
<Statement entered by Rene Cui MD - 12/03/24 10:18> Patient seen and examined at bedside. I discussed and supervised with the international trade manager physician who took care of this patient. I personally saw and examined the patient. I agree with most of the assessment and plan. Patient had 2 L urine output overnight. Spoke with nephrology, cleared to remove dialysis cath. Patient placed on pressure support in the morning, well tolerated. Extubated without issue to oxy-mask. Patient shows good mentation, follows commands well, but somnolent. Patient noted to be hypernatremic, with free water deficit 2.8 L. Free water flushes initiated. Coag panel shows improvement: PT 19.2, INR 1.9. If patient remains stable, may downgrade this afternoon. Continuing tube feeds. Plan of care discussed with attending Dr. Hensley. Rene Cui MD PGY-2 Documentation for date of: 12/03/24 Subjective Subjective Interval history: 54 y/o F with PMHx of decompensated alcoholic cirrhosis (on transplant list), multiple admissions for hepatic encephalopathy, prior variceal bleeding s/p banding, chronic pain, T2DM presents from home with altered mental status, generalized pain, weakness, poor oral intake, and 2 episodes of hematemesis in the last week. CXR was ordered and she was admitted for suspected hepatic encephalopathy recurrence. Per patient she has been taking prescribed lactulose. For week prior to admission patient had experienced loss of appetite, had very poor oral intake, and had 2 episodes of hematemesis. During this period her mentation deteriorated and she has become increasingly confused. She also developed generalized pain, n/v during this time as well as diarrhea. The patient and mother otherwise denied dysuria, frequency, constipation, fever, chills, SOB, palpitations. In the ED, she was afebrile and hemodynamically stable, cachexic, with diffuse tenderness, severe asterixis, lethargy/fatigue, generalized weakness and generalized pain. A&Ox2 oriented to name and place. UA showed blood. Labs significant for LILY (Cr 2.4 from baseline ~1.0), anemia (Hgb 10.6 though she trends 8s-10s), hyperammonemia (153), BUN 30, Plt 68.5, MCV 104, PT 17.7, INR 1.7, PTT 35.5 high normal, Tbili 6.5. Patient treated on the floors for 2 weeks. During this time, patient received lactulose, rifaximin, PRBC as needed, FFP and vitamin K. EGD on 11/14/24 showed esophageal varices and mucosal oozing, treated with octreotide drip and protonix. Patient receiving Rocephin for SBP prophylaxis. Found to have VRE UTI, treated with linezolid, treatment completed. Patient eventually became more somnolent, NG tube inserted for enteral tube feeds. At this time, patient is pending transfer to [facility] for liver transplant evaluation. Patient mentation worsened, with GCS 7, unable to protect airway. ICU was consulted to evaluate need for intubation. Decision was made to intubate patient due to inability to protect airway. Accepted care of patient. Interval Subjective History: 12/02/2024: Overnight patient had 800 cc urinary output. Platelets decreased to 6, 1 units platelets ordered. 1 unit FFP ordered. Anemia slightly downtrended to 8.9. Ammonia decreased to 98. No plan for dialysis today, will reevaluate tomorrow per nephrology. Patient showed improvement Tatian, able to follow commands today. Was placed on pressure support, which was well-tolerated for 4 hours. Will do pressure support 4 hours overnight, consider extubation tomorrow. Head CT on 11/28 showed no edema, no stroke. Spoke with transfer nurse, if patient is able to be extubated tomorrow, potential transfer to [place] pending authorization. 12/03/2024: Overnight patient made 1900 cc urine and 700 ml stool. No plans for dialysis today given continued improvement in urine output. Patient was on pressure support for multiple hours yesterday, was temporarily switched to SIMV overnight. Was placed back on pressure support this morning, tolerating well. Patient's mentation continues to be improved able to nod yes/no to questions, able to keep eyes open and track well. Planning to extubate today. Patient's platelets increase to 16 after being given 1 unit platelets yesterday, hgb slightly downtrended to 7.8, no signs of active bleeding today. Will continue abx for 7 day course starting when meropenem was started (11/28 - 12/04). Spoke with transfer nurse, states still potential for transfer to [facility] if patient is successfully extubated, pending authorization; will need downgrade orders & dc summary pending successful extubation. Exam Vital Signs Temp Pulse Resp BP Pulse Ox O2 Del Method O2 Flow Rate 97.8 F 80 16 123/73 100 Mechanical Ventilation 35 12/02/24 21:00 12/03/24 07:00 12/02/24 18:00 12/03/24 07:00 12/03/24 07:00 12/02/24 16:00 12/02/24 12:19 FiO2 35 12/03/24 06:10 Narrative Exam General: Intubated, following commands, no acute distress. Dried Bloody secretions in ET tube. HEENT: Scleral icterus noted, mucous membranes moist. Neck: Supple, no JVD or bruit. Cardiovascular: Regular rate and rhythm, no murmurs. Respiratory: On ventilator (pressure support), equal breath sounds bilaterally, no wheezing or crackles. Abdomen: Soft, diffuse abdominal tenderness (noted by grimacing and head nodding) EXT: Bilateral upper extremity edema, worse on left arm. Multiple deroofed blisters on left arm, no new blisters forming. Skin: Jaundiced, scattered bruising. Neurological: Awake, following commands, moves all extremities on command, improved mentation. Objective Labs 12/05/24 04:46 12/05/24 04:46 Labs: Laboratory Results - last 24 hr 11/30/24 12/03/24 12/03/24 08:05 00:26 04:28 WBC 1.7 L RBC 2.49 L Hgb 7.8 L Hct 22.6 L MCV 91 MCH 31.3 MCHC 34.5 RDW Std Deviation 65.5 H Plt Count 16 L* D Neut % (Auto) 46 Lymph % (Auto) 39 [place] % (Auto) 8 Eos % (Auto) 6 Baso % (Auto) 1 Neut # (Auto) 0.8 L Lymph # (Auto) 0.7 L [place] # (Auto) 0.1 Eos # (Auto) 0.1 Baso # (Auto) 0.0 Immature Gran # (Auto) 0.01 H Absolute Nucleated RBC 0.00 Immature Gran % 1 H Nucleated RBC % 0 PT 19.2 H D INR 1.9 H APTT 40.9 H D Fibrinogen 102 L Puncture Site Right Radial ABG pH 7.46 H ABG pCO2 43 ABG pO2 97 ABG HCO3 30 H ABG O2 Saturation 99 H ABG Base Excess 6 H FiO2 35 Sodium 150 H Potassium 3.3 L Chloride 107 Carbon Dioxide 30.8 Anion Gap 12 BUN 32 H Creatinine 1.3 Estim Creat Clear Calc 44.9 L eGFR 49 L BUN/Creatinine Ratio 25 H Glucose 210 H Calculated Osmolality 310 H Calcium 11.1 H Corrected Calcium 11.1 H Phosphorus 2.8 Magnesium 2.7 H Total Bilirubin 7.4 H D AST 29 ALT 18 Alkaline Phosphatase 121 H D Total Protein 7.2 Albumin 4.9 Globulin 2.3 Albumin/Globulin Ratio 2.1 Misc Test Result Platelets confirmed Blood Type O Positive Antibody Screen NEGATIVE Crossmatch See Detail Blood Bank Wristband ID Yes Blood Bank Comment PLATP Ready 12/03/24 04:31 WBC RBC Hgb Hct MCV MCH MCHC RDW Std Deviation Plt Count Neut % (Auto) Lymph % (Auto) [place] % (Auto) Eos % (Auto) Baso % (Auto) Neut # (Auto) Lymph # (Auto) [place] # (Auto) Eos # (Auto) Baso # (Auto) Immature Gran # (Auto) Absolute Nucleated RBC Immature Gran % Nucleated RBC % PT INR APTT Fibrinogen Puncture Site Right Radial ABG pH 7.41 ABG pCO2 50 H ABG pO2 113 H ABG HCO3 31 H ABG O2 Saturation 99 H ABG Base Excess 6 H FiO2 21 Sodium Potassium Chloride Carbon Dioxide Anion Gap BUN Creatinine Estim Creat Clear Calc eGFR BUN/Creatinine Ratio Glucose Calculated Osmolality Calcium Corrected Calcium Phosphorus Magnesium Total Bilirubin AST ALT Alkaline Phosphatase Total Protein Albumin Globulin Albumin/Globulin Ratio Misc Test Result Blood Type Antibody Screen Crossmatch Blood Bank Wristband ID Blood Bank Comment ABG Interpretation ABG results: 11/27/24 11/27/24 11/28/24 14:52 21:14 04:57 ABG pH 7.31 L 7.34 L 7.36 ABG pCO2 44 39 34 ABG pO2 91 154 H D 168 H ABG HCO3 22 21 19 L ABG O2 Saturation 98 100 H 100 H ABG Base Excess -4 L -5 L -6 L 11/29/24 12/03/24 12/03/24 04:05 00:26 04:31 ABG pH 7.33 L 7.46 H 7.41 ABG pCO2 38 43 50 H ABG pO2 127 H D 97 113 H ABG HCO3 20 30 H 31 H ABG O2 Saturation 99 H 99 H 99 H ABG Base Excess -5 L 6 H 6 H Quality Measures Quality Measures VTE prophylaxis Assessment & Plan Assessment Current Active Medications: Generic Name Dose Route Start Last Admin Trade Name Freq PRN Reason Stop Dose Admin Albuterol 2.5 mg 12/02/24 11:04 Albuterol Rt 2.5 Mg/0.5 Ml Nebu INH 01/01/25 14:59 Q4HRRT PRN RESPIRATORY DISTRESS Cyanocobalamin 1,000 mcg 11/27/24 09:00 12/03/24 08:09 Cyanocobalamin 500 Mcg Tablet NG 12/27/24 08:59 1,000 mcg QDAY CELINA Administration Dextrose 25 ml 11/22/24 09:17 Dextrose 50%-Water Inj 50 Ml Syringe IV 12/22/24 09:16 Q15MIN PRN BG 50-70 responsive npo pt Dextrose 50 ml 11/22/24 09:17 Dextrose 50%-Water Inj 50 Ml Syringe IV 12/22/24 09:16 Q15MIN PRN BG <50 OR BG <70 & pt unresponsive Folic Acid 2.5 mg 11/27/24 09:00 12/03/24 08:09 Folic Acid 1 Mg Tablet NG 12/27/24 08:59 2.5 mg QDAY CELINA Administration Glucagon 1 mg 11/22/24 09:17 Glucagon Inj 1 Mg Vial IM Q15MIN PRN BG <70, and no IV access Heparin Sodium (Porcine) 3,000 unit 11/29/24 14:28 12/01/24 11:31 Heparin Sod Inj 1000 Unit/Ml Vial 10 Ml INDWELLCAT 12/13/24 14:27 3,000 unit PRN PRN Administration DIALYSIS Fluconazole 200 mg in 100 mls @ 100 mls/hr 11/29/24 09:00 12/03/24 08:09 Diflucan/Ns Ivpb IV 12/06/24 08:59 100 mls/hr QDAY CELINA Administration Albumin Human 25 gm in 100 mls @ 100 mls/min 11/29/24 09:45 Albuminex 25% Ivpb IV PRN PRN DIALYSIS Meropenem 2,000 mg/ Sodium 100 mls @ 100 mls/hr 12/01/24 09:00 12/03/24 09:02 Chloride IV 12/05/24 20:59 100 mls/hr Q12HR CELINA Administration Insulin Degludec 20 unit 12/03/24 09:00 12/03/24 08:11 Insulin Degludec 5 Unit/0.05 Ml (Per 5 Units) SC 01/02/25 08:59 20 unit QDAY CELINA Administration Insulin Human Lispro 0 unit 12/02/24 17:27 12/03/24 05:36 Insulin Lispro (Admelog) 1 Unit/0.01 Ml Unit SC 12/28/24 06:14 3 unit Q6HR CELINA Administration Protocol Lactobacillus Rhamnosus 2 cap 11/28/24 13:45 12/02/24 11:34 Lactobacillus Rhamnosus 1 Cap PO 12/28/24 13:44 2 cap WLUNCH CELINA Administration Lactulose 20 gm 11/30/24 12:00 12/03/24 05:36 Lactulose Syrup 20 Gm/30 Ml Udc PO 12/30/24 11:59 20 gm QID CELINA Administration Protocol Ondansetron HCl 4 mg 11/20/24 10:43 11/26/24 21:26 Ondansetron Inj 2 Mg/Ml Inj 2 Ml IVP 12/20/24 10:42 4 mg Q6HR PRN Administration NAUSEA OR VOMITING Protocol Pantoprazole Sodium 40 mg 11/27/24 09:00 12/03/24 08:10 Pantoprazole Inj 40 Mg Vial IV 12/27/24 08:59 40 mg BID CELINA Administration Rifaximin 550 mg 11/27/24 09:00 12/03/24 08:11 Rifaximin 550 Mg Tablet NG 12/04/24 08:59 550 mg BID CELINA Administration Sodium Chloride 3 ml 12/02/24 11:04 Sodium Chloride Rt Karis 0.9% 3 Ml Nebu INH 01/01/25 11:03 PRN PRN SOLN Spironolactone 50 mg 11/16/24 10:15 11/18/24 08:50 Spironolactone 25 Mg Tablet PO 12/16/24 10:14 50 mg On Hold: 11/19/24 06:52 DAILY CELINA Administration Thiamine HCl 100 mg 11/28/24 09:00 12/03/24 08:10 Thiamine Inj 100 Mg/Ml Vial 2 Ml IVP 12/28/24 08:59 100 mg QDAY CELINA Administration Plan 54 y/o F with PMHx of decompensated alcoholic cirrhosis (on transplant list), multiple admissions for hepatic encephalopathy, prior variceal bleeding s/p banding, chronic pain, T2DM presents from home with altered mental status, generalized pain, weakness, poor oral intake, and 2 episodes of hematemesis, upgraded to ICU for intubation due to inability to protect airway. Neuro: #Hepatic encephalopathy, improving Dx: - Patient has history of hepatic encephalopathy due to liver cirrhosis. - Per Mother, patient was diagnosed around September 2023 and this is when she stopped completely drinking alcohol as well. - Initial 11/13 ammonia 153, treated with lactulose and rifaximin. - 11/27 patient developed worsening encephalopathy, GCS 7, repeat ammonia 143 , lactulose had been down titrated due to loose stools. - Patient intubated for airway protection. - 11/29 Overnight, less BM's, would not tolerate golytely; ammonia 339 (142) - Bedside ultrasound of eye showed optic nerve diameter ~6.3 mm (N < 5 mm), suspecting possible cerebral edema -11/30: EEG consistent with acute encephalopathy -12/01: Head CT showed no cerebral edema, no stroke; Dialysis for ammonia elevation - Repeat CT head given risk of bleeding with coagulopathy/ thrombocytopenia; remains at threshold to avoid excessive transfusion -12/02: Ammonia decreased to 98 after dialysis, patient making increased urine output. -12/03: Mentation continues to be improved, awake, able to follow commands, able open eyes and track well, sustained. Rx: - Broad spectrum abx per [facility]. - Will continue abx for 7 day course starting when meropenem was started (11/28 - 12/04) - Lactulose 20 mg NG 4 times daily - Adequate output with use of lactulose - Continue Rifaximin 550 BID - Rectal tube in place CVS: No active issues. Pulmonary: #Mechanical Ventilation 2/2 airway support (i/s/o improving hepatic encephalopathy) #Acute hypoxic respiratory failure, resolved #Left base pneumonia, likely aspiration Patient on pressure support this morning, tolerating well, mentation continues to improve. Planned for another trial of extubation today. The hepatic encephalopathy (improving) is likely the main suspected contributor; other contributors being possible seizures vs meningitis vs cerebral edema. Dx: -CXR on 11/27 showed L base consolidation consistent with pneumonia, not seen on previous CXR (11/26). -Likely due to aspiration in setting of decreased GCS. Patient intubated for airway protection. -12/02: Patient showed improved mentation, able to follow commands. Tolerated pressure support well for 4 hours during the day. Overnight was on pressure support on and off with less toleration. -12/03: ABG favorable, tolerating pressure support well this morning, planning to extubate today. Rx: - Per [facility] for - Fluconazole 200 mg IV qd, Meropenem 2,000 mg IV q12hr, - Will continue abx for 7 day course starting when meropenem was started (11/28 - 12/04) - Blood and sputum cultures- ESBL Klebsiella oxytoca in sputum, blood remains negative at 48 hours - Planning to attempt extubation this morning - Gas exchange and pulmonary mechanics preserved GI: #Fulminant Liver Failure i/s/o End-Stage Liver Disease 2/2 Alcoholic Liver Cirrhosis Dx: -Patient has known history of ESLD, with frequent admission for complications related to liver disease. -Per Mother, patient was diagnosed around September 2023 and this is when she stopped completely drinking alcohol as well. -Admitted for hepatic encephalopathy 11/13. -During hospital stay, patient has acutely decompensated, with worsening coagulopathy, hepatic encephalopathy, pancytopenia. -Minimal ascites, not enough for paracentesis on US on 11/21 -11/27 MELD-Na 40, 71.3% 3 month mortality, with PT>63, INR, undetectably high. Child [place] class C: 82% perioperative mortality. -11/29 Maddrey's Discriminant Function forAlcoholic Hepatitis is 49.3 points -> Poor prognosis, may benefit from glucocorticoid therapy -[facility] declined transfer declined from transplant perspective; they asked for Broad spectrum abx and golytely. -Potential transfer to [place] pending financial authorization and extubation Rx: - Continuing to treat hepatic encephalopathy and coagulopathy - Avoid hepatically metabolized medications when appropriate - Per [facility] continuing Broad spectrum abx; (golytely completed) - GI consulted, appreciate recommendations - Fluconazole 200 mg IV qd, Meropenem 2,000 mg IV q12hr, Vancomycin stopped with negative MRSA screening - Will continue abx for 7 day course starting when meropenem was started (11/28 - 12/04) - Attempt diagnostic paracentesis if enough fluid is found #Esophageal varices Patient history of varices requiring banding. EGD 11/14/24 showed garde 1 varices, mucosal oozing. - GI consulted, appreciate recs - Octreotide drip 5-day course completed - Protonix IV 40mg BID #Tube feedings Patient started on tube feeds due to AMS, inability to eat. Currently intubated. - Dietary consulted, appreciate recommendation - Tube feeds temporarily being held this morning for planned extubation Renal: #LILY, s/p temporary dialysis, resolved Ddx: Prerenal dehydration, hepatorenal syndrome, ATN Patient blood pressure and renal function improved with albumin, octreotide, and midodrine. Kidney function has since declined again, despite serum albumin levels elevated to 6.2. Potential ATN due to inability to hepatically metabolize potential nephrotoxins. Dx: -Patient presented with significant LILY, creatinine 2.4 compared to baseline 0.9. -11/29: Cr 1.6 (1.8); still making urine ~55cc/hr overnight -11/30: 200 cc UOP, overnight, HD this AM- 1.5L removed with 2 uPRBC given -12/01 Net negative balance secondary to high stool output -12/02 net negative balance due to high stool output -12/03 2 L urine output last 24 hrs, improvement from previous days Rx: - Strict I's and O's - Holding dialysis as UOP is good/improving - Renally dose medication - Avoid nephrotoxins #HAGMA (resolved) DDx: LILY from hepatorenal syndrome, decreased intravascular volume, lactic acidosis. Patient's endstage liver disease appears to be the source of this, causing renal dysfunction, decreasing the ability of the body to rid of acids. Dx: - 11/29: AGAP 24, Bicarb 36.2 - 12/02: Anion gap 13, serum bicarb 26.7 Rx: -continue to optimize vent and treat hepatic encephalopathy/ uremia #hypercalcemia #hypermagnesemia #hypernatremia DDx: Likely due to lactulose and ensuing BM's Dx: -11/29: Ca 11.0 (11.2), Mag 2.7 (2.8), Na 153 (150) -Sodium being elevated may help possible cerebral edema. -12/03 Na 150 (145), Mag 2.7 (2.8), Ca 11.1 (9.9) likely due to volume loss from lactulose, dehydration -Free water deficit calculated at 2.8 L Rx: -Started free water flushes 59 cc/hr for 24 hrs to get 1.4 L for first 24 hrs -Will continue to trend e-lytes; -Dialysis 11/29, 11/30, 12/01; No dialysis needed 12/02 or today 12/03 Endo: #T2DM Dx: -Patient has history of T2DM. A1c 6.0 as of 09/25/24. -11/29 glucose 210 (245) Rx: - Long acting insulin 20 qDaily - ISS - Adjust insulin regimen as needed Heme/Onc: #Pancytopenia 2/2 likely cirrhosis and side effect of linezolid (agranulocytosis) -Patient has pancytopenia, reqiuring transfusions of platelets and RBCs during hospital stay. Dx: -12/03: Hemoglobin 7.8 (8.9), PLT 16 (6) s/p 1 u PLT/FFP 12/02, wbc 1.7 (2.6) Rx: - Monitor hemoglobin and platelets - Transfuse as needed, 1 unit of platelets and 1 unit FFP 12/02 - Transfuse to keep PLT >10k unless invasive procedure #Coagulopathy/ DIC Patient has coagulopathy due to cirrhosis. INR and PTT undetectably high. Noted to have large bruises BUE. Received vitamin K and FFP. Additional platelet and FFP given 12/02. - 11/29 Fibrinogen 145 (71) s/p cryoprecipitate x 4 units (fibrinogen goal of 150-200) - 12/03: ordered cryoprecipitate 7 units for fibrinogen 102 (110 on 12/01) - Monitor for signs of blood loss, none presently- hemolysis from DIC - Check fibrinogen/ PT/INR again ID: #[email or web address], treatment completed Patient found to have UTI, culture showed VRE. Completed treatment course with linezolid. Has had numerous positive urine cultures for VRE in the past. - Maintain isolation precautions #Aspiration Pneumonia Treat as above -Blood cx's 11/27 NG48 hrs -Will continue abx for 7 day course starting when meropenem was started (11/28 - 12/04) -ET gram stain showed 1+ mixed thad, occasional budding yeast, fungal elements, 2+ wbcs; ET culture ESBL klebsiella oxytoca - Continue on meropenem, Vancomycin stopped with negative MRSA Disposition: ICU; [facility] denied transfer for Liver transplant 11/28 given AMS/ HE; pending financial clearance for evaluation at [place] DVT prophylaxis: SCD's GI prophylaxis: Protonix Diet: tube feeds Lines: Peripherals, rectal tube, ET tube Drips: None Vent: Yes CODE STATUS: Full code Patient plan of care was discussed with the attending physician, Dr. Hensley & senior resident Dr. Esequiel HERBERT PGY-1 Attending Provider Attestation/Addendum Patient seen and examined with above resident, Dr. Charlie Handy MD. I agree with the findings, assessment, and plan of care as document except for any differences below. Patient with continued gradual improvement with returning renal function and optimization of mental status. Patient with growth of Klebsiella oxytoca. Continue on meropenem. No other source of infection with other antibiotics abdominal discontinued. Antifungal therapy remains as our testing is limited here in our facility. Patient's gas exchange continues to be optimal along with pulmonary compliance. Patient did tolerate spontaneous breathing trial yesterday and was reattempted today with successful weaning from mechanical ventilation as her mentation continues to improve. Continue on lactulose and rifaximin for optimization of hepatic encephalopathy. No plans for repeat hemodialysis with adequate clearance of mentation after ammonia was removed. Given patient's continued improvement we will continue to reassess ability to be transferred to transplant center for formal evaluation at the request of the patient and her family historically. Patient without any recent alcohol use. We have left enteric access to ensure appropriate ability to dose lactulose as well as continue nutrition in anticipation of her transfer. Monitor patient briefly post extubation until this afternoon and we will plan to downgrade to telemetry to allow her to have more options for bed placement at the receiving facility. Remains stable at the time and her family was updated on plan of care and remained agreeable. Total critical care time: I personally spent 50 minutes for review of physiologic parameters, directing plan of care, coordination of care with other subspecialist, and counseling patient's family at bedside. This is exclusive of time spent teaching of staff and performing separate billable procedures. Patient remains at significant risk for further morbidity and mortality warranting close monitoring and care only available in the ICU. Patient required critical care services for hepatic encephalopathy, acute hypoxic respiratory failure, healthcare associated pneumonia, end-stage alcoholic cirrhosis.
--- NOTE | 2024-12-03 11:45 | ESDS_ITS ---
<Statement entered by Jon Hensley MD - 12/17/24 22:19> I have reviewed and agree with the findings, assessment, and plan of care as documented by the above resident, Charlie Handy MD. To see full details of plan of care from date of service, please refer to separate progress note from the day. <Statement entered by Rene Cui MD - 12/03/24 14:30> Patient seen and examined at bedside. I discussed and supervised with the kinesiology internship physician who took care of this patient. I personally saw and examined the patient. I agree with most of the assessment and plan. Patient initially admitted for hepatic encephalopathy, has been admitted repeatedly for encephalopathy in the past. Treated with lactulose, rifaximin. Patient found to have VRE UTI, treated with linezolid. Patient initially showed improvement in mental status, before declining again. During hospital stay patient received EGD, was treated with octreotide drip x 5 days twice for esophageal varices. Due to clinical status, it was determined patient was unable to protect her airway, patient was successfully intubated. Despite in creasing doses of lactulose and GoLytely, patient's ammonia continued to uptrend. Emergent dialysis was performed to clear ammonia, patient showed significant improvement in mental status. Patient was able to follow commands, was successfully extubated. Per conversations with [facility], patient was treated with meropenem, fluconazole, vancomycin which was stopped after MRSA screen resulted negative. Patient is hemodynamically stable, stable for downgrade to telemetry, pending transfer to transplant center. Plan of care discussed with attending Dr. Hensley. Rene Cui MD PGY-2 Planned Discharge Date 12/03/24 DS: Providers Provider Date of admission: 11/13/24 15:24 Primary care physician: Physician No Primary/Family Admitting Provider: Stephen Ahuja MD Attending Provider on Admission: Jon Hensley MD Consults: 11/13/24 16:22 Consult to Gastroenterology Routine Comment: Consulting Provider: Brenda Culp 11/14/24 10:12 Consult to Nephrology Urgent Comment: Consulting Provider: Justa Ramon 11/17/24 10:02 Referral Physical Therapy Routine Comment: Physician Instructions: 11/18/24 06:24 Referral Wound Care Routine Comment: sheering vs stage 2 right buttock 11/18/24 06:25 Referral Registered Dietitian Routine Comment: sheering vs stage 2 right buttock 11/18/24 08:11 Consult to Infectious Diseases Routine Comment: Consulting Provider: Oj Castellanos 11/22/24 09:40 Referral - [employer] Routine Service Needed for Transfer: hepatology Addl Comments:: liver transplant candidate Attending Provider on DC: Jon Hensley Discharging Provider: Jon Hensley DS: Diagnosis Problem List Completed Was Problem List Reviewed/Reconciled?: Yes Hospital Course Hospital Course Hospital course: Elzbieta Knight is a 54F pmhx of significant for decompensated alcoholic cirrhosis, multiple admissions for hepatic encephalopathy, hx of prior variceal bleeding s/p banding, chronic pain, NIDDM2 presented to [facility] 11/13 for altered mental status, weakness and 2 episodes of hematemesis, admitted for hepatic encephalopathy likely secondary to decompensated alcoholic cirrhosis, found to have LILY, later developing leukopenia and severe thrombocytpoenia. Course complicated by VRE UTI. Patient presented with altered mental status for the past 2 days prior to admission with generalized weakness and severe asterixis. Patient has been seen multiple times [facility] for hepatic encephalopathy despite being compliant with medication. On admission ammonia level was 153, BUN 30, creatinine 2.4, troponin 0.031, platelets 32 then decreased to 28. Patient was treated with rifamixin 550 mg BID, increased lactulose from home 10 g 3 times daily to 20 g 3 times daily, albumin and midodrine 10 mg TID with improvement in encephalopathy. On 11/15/2024, patient underwent EGD which showed grade 1 esophageal varices found in the lower third of esophagus, did few severely erythematous mucosa with stigmata of recent bleeding found entire stomach, and pulsating of blood due to hypertensive portal gastropathy with normal duodenum. No interventions performed during EGD and patient was placed on octreotide drip for 5 days as well as pantoprazole and Hgb largely remained stable. During admission, nephrology was consulted and patient was diagnosed with hepatorenal syndrome as patient was admitted with LILY which resolved with albumin and midodrine. Albumin was initially discontinued, however LILY reoccurred, and albumin restarted with subsequent improvement of creatinine. Of note, urine culture also grew VRE as patient does have a history of VRE UTIs. Per ID, patient was started on linezolid 600 mg BID for total of 7 days from 11/18 to 11/25. Patient developed worsening mentation on 11/27. Repeat ammonia level increased to 143, bowel movements decreased. ICU team consulted due to worsening mentation to evaluate airway protection. Decision was made to intubate patient for airway protection. Intubation completed without incident, R IJ placed for vascular access without incident. Patient was sedated with IVP Versed as needed, lactulose dosage was increased to 60 gm TID. Patient showed improvement in respo nsiveness, had multiple bowel movements overnight. Hemodynamically stable, tolerating ventilator well. Receiving 1 unit platelets for coagulopathy and thrombocytopenia, hemoglobin remains stable. Zosyn initiated due to CXR findings indicating L base PNA, likely aspiration pneumonia in setting of worsening hepatic encephalopathy. Patient?s team was made aware by [facility] that patient will need to be off of mechanical ventilation and will need to be on specific antibiotic regimen before being accepted for transfer. Patient had a bedside ultrasound of the eye which showed mildly elevated optic nerve sheath diameter in the setting of the patient?s mentation not improving. Patient was found to have elevated ammonia levels and was initiated on temporary dialysis from 11/29-12/01. Patient?s ammonia decreased after getting hemodialysis with greatly improved mentation, currently very close to baseline mentation. Patient?s urine and bowel output started to increase, has not needed dialysis since 12/01. Patient tolerated dialysis without the need for pressors. Patient has been afebrile, hemodynamically stable and has been successfully extubated, currently saturating well on 2L NC. Imagin/30 CXR showed mild vascular congestion, poor inspiratory effort, moderate osteopenia 11/21 Abdominal US minimal ascitic fluid 11/27 KUB showed significant stool burden. 11/27 CXR showed L base PNA, likely aspiration 11/28 Venous Doppler L Upper Extremity: Negative for DVT 11/30 EEG abnormal; suggestive of diffuse encephalopathy 12/[address] negative for hemorrhage, mass effect, midline shift; no generalized cerebral edema Discharge recommendations as per accepting facility. Hospital Diagnoses: #Hepatic encephalopathy 2/2 #Decompensated cirrhosis, likely alcoholic #Thrombocytopenia, stable #Hyperammonemia #Hypoalbuminemia, resolved #Coagulopathy #Macrocytic anemia, chronic #UTI, VRE #PNA, likely aspiration #LILY, prerenal, improving #Hepatorenal syndrome #Hematuria 2/2 thrombopenia and/or VRE UTI #Hx of VRE UTI #Hyperkalemia #Abdominal pain #Allodynia #Hematemesis #Gastritis with recent mucusal bleeding #Grade I non-bleeding esophageal varicies at lower third of esophagus #Hx of Grade III esophageal varicies s/p banding 06/13/24 #Leukopenia #Urinary retention, resolved #Chronic pain #NIDDM2 Patient plan of care was discussed with the attending physician, Dr. Hensley & senior resident Dr. sEequiel HERBERT PGY-1 Time Spent with Patient Time attestation: Total time spent providing and/or coordinating discharge services: Time spent: Greater than 30 minutes Exam Vital Signs Temp Pulse Resp BP Pulse Ox O2 Del Method O2 Flow Rate 97.6 F 83 16 124/76 100 Mechanical Ventilation 35 12/03/24 08:00 12/03/24 10:00 12/02/24 18:00 12/03/24 10:00 12/03/24 10:00 12/02/24 16:00 12/02/24 12:19 FiO2 35 12/03/24 08:00 Narrative Exam General: Awake, A&Ox3, following commands, no acute distress. Saturating well on 2 L NC. HEENT: Scleral icterus noted, mucous membranes moist. Neck: Supple, no JVD or bruit. Cardiovascular: Regular rate and rhythm, no murmurs. Respiratory: Lungs CTAB, equal breath sounds bilaterally, no wheezing or crackles. Abdomen: Soft, diffuse abdominal tenderness (noted by grimacing and head nodding) EXT: Bilateral upper extremity edema, worse on left arm. Multiple deroofed blisters on left arm, no new blisters forming. Skin: Jaundiced, scattered bruising. Neurological: Awake, following commands, moves all extremities on command, improved mentation. Discharge Plan Plan Patient Disposition: [facility] Being Transferred to: [facility] Service Needed for Transfer: Gastroenterology Patient condition on transfer: Stable Prescriptions/Referrals Prescriptions/Med Rec: Continued hydrocodone-acetaminophen 5-325 mg tablet 1 tab PO Q6H MDD 4 tablets in one day PRN (Reason: pain) Qty: 60 0RF Rx Instructions: Take one tablet by mouth up to every 6 hours pantoprazole 40 mg tablet,delayed release (DR/EC) 40 mg PO QDAY 30 Days Qty: 30 2RF Rx Instructions: Take one tablet by mouth every day before food mirtazapine [Remeron] 30 mg tablet 30 mg PO QHS 30 Days Qty: 30 1RF Rx Instructions: Take one tablet by mouth at bedtime Xifaxan 550 mg tablet 550 mg PO BID 30 Days Qty: 60 2RF Rx Instructions: Take one tablet by mouth twice a day methocarbamol 750 mg tablet 750 mg PO BID 30 Days Qty: 60 2RF Rx Instructions: Take one tablet by mouth twice a day (DME) lancets [FreeStyle Lancets] 28 gauge misc See Rx Instructions .Route Qty: 100 5RF Rx Instructions: Use TID and PRN As directed (DME) Freestyle [employer]x Test Strips Strip See Rx Instructions .Route Qty: 100 5RF Rx Instructions: Test TID and PRN As directed (DME) lancets [Acti-Petar Lancets] 28 gauge misc See Rx Instructions .Route Qty: 100 2RF Rx Instructions: As directed (DME) Accu-Chek Idania Plus test strp Strip See Rx Instructions .Route Qty: 100 2RF Rx Instructions: As directed (DME) blood-glucose meter [FreeStyle Riparius Lite] Kit See Rx Instructions .Route Qty: 1 0RF Rx Instructions: As directed midodrine 10 mg tablet 10 mg PO Q8H Changed lactulose 10 gram/15 mL solution 20 g PO TID Qty: 1200 0RF Patient Comments: TAKE 45 MLS BY MOUTH 3 TIMES A DAY Held spironolactone 50 mg tablet 50 mg PO DAILY Hold Instructions: Resume on 11/28/24. Hold until follow up with nephrology/PCP metformin 1,000 mg tablet 1,000 mg PO QDAY Hold Instructions: Resume on 11/28/24. hold until follow up with PCP Patient Comments: TAKE 1 1/2 TABLETS BY MOUTH ONCE A DAY No Action ascorbic acid (vitamin C) [Vitamin C] 250 mg Tablet 500 mg PO QDAY 30 Days Qty: 60 0RF furosemide 20 mg Tablet 20 mg PO QAM Qty: 60 0RF cholecalciferol (vitamin D3) 10 mcg (400 unit) Tablet 10 mcg PO QDAY 30 Days Qty: 30 0RF zinc sulfate 50 mg zinc (220 mg) Capsule 220 mg PO QDAY 30 Days Qty: 132 0RF Referrals: No Primary/Family,Physician [Primary Care Provider] Patient/Caregiver Discharge Instructions Education Materials: Hepatic Encephalopathy Print Language: [place] Stand Alone Forms: [employer] Award Info., Patient Portal Info Letter Discharge Order Discharge Orders: Discharge (Routine); Ordered 12/05/24 Ordered By: Godfrey Sosa Quality Discharge Quality Measures VTE prophylaxis
[2024-12-03] MEDS: LACTOBACILLUS RHAMNOSUS 1 CAP 2 CAP PO (11:52)
--- NOTE | 2024-12-03 15:15 | PC.SS ---
Update: Patient has been downgraded to Tele. Transfer request pending.
--- NOTE | 2024-12-03 15:35 | ESPR_ITS ---
<Statement entered by Zach Plata MD - 12/03/24 16:05> I have reviewed the note and agree with the resident's assessment & plan with exceptions as below. I have personally reviewed labs, imaging, home meds/prior records, examined the patient, formulated and discussed management plan with my attending Patient was seen evaluated at bedside this morning. No acute events. Patient was in ICU downgrade today as patient was successfully extubated. Patient had a prolonged stay in the ICU giving she required intubation as well as dialysis for hyperammonemia. Patient today after being successfully extubated was alert and weak, was following commands. Was moving all extremities as well. Per ICU patient needs to be on meropenem and on fluconazole might be as per [facility], therefore we will continue this. Still pending transfer, possible to [facility] versus [facility]. Zach Plata PGY2 Disclaimer: Even though this this note was dictated by speech recognition and even though it was carefully revised there may still be minor errors in glass furnace tender due to voice recognition software. Documentation for date of: 12/03/24 Subjective Subjective Interval history: Patient downgraded from ICU today during ICU stay, patient was intubated due to GCS of 7 and central line was placed for temporary dialysis. Patient received platelets for coagulopathy and thrombocytopenia and broad-spectrum antibiotics per [facility]. Following dialysis, patient's mentation greatly improved and was extubated on 12/03. Patient seen and examined at bedside in ICU with mother. Patient reports abdominal pain and generalized weakness, alert and oriented x 3. Per ICU, [facility] is in the process of possibly excepting patient for transfer. Continue hepatic encephalopathy currently management and broad-spectrum antibiotics. Exam Vital Signs Temp Pulse Resp BP Pulse Ox O2 Del Method O2 Flow Rate 97.4 F 80 12 121/68 100 Mechanical Ventilation 2 12/03/24 13:55 12/03/24 14:10 12/03/24 13:55 12/03/24 14:10 12/03/24 14:10 12/02/24 16:00 12/03/24 13:55 FiO2 35 12/03/24 08:00 Narrative Exam GENERAL: Alert and oriented x3, no acute distress, following commands HEENT: NC/AT, mucous membranes moist, bilateral sclera icteric CARDIOVASCULAR: regular rate and rhythm, S1/S2 present, 3/6 systolic murmur heard best at left 2nd intercostal space PULMONARY: clear to auscultation bilaterally, no rales/rhonchi/wheezes ABDOMINAL: diffuse tenderness to palpation, no rebound/guarding, bowel sounds hyperactive EXTREMITIES: no peripheral edema SKIN: warm and dry, intact, no rashes, significant bruising BUE and BUE swelling L>R NEURO: CN II-XII grossly intact, no focal deficits, alert, following commands, + 2/5 strength of BUE and BLE Objective Labs 12/03/24 04:28 12/03/24 04:28 Labs: Laboratory Results - last 24 hr 11/30/24 12/03/24 12/03/24 08:05 00:26 04:28 WBC 1.7 L RBC 2.49 L Hgb 7.8 L Hct 22.6 L MCV 91 MCH 31.3 MCHC 34.5 RDW Std Deviation 65.5 H Plt Count 16 L* D Neut % (Auto) 46 Lymph % (Auto) 39 [place] % (Auto) 8 Eos % (Auto) 6 Baso % (Auto) 1 Neut # (Auto) 0.8 L Lymph # (Auto) 0.7 L [place] # (Auto) 0.1 Eos # (Auto) 0.1 Baso # (Auto) 0.0 Immature Gran # (Auto) 0.01 H Absolute Nucleated RBC 0.00 Immature Gran % 1 H Nucleated RBC % 0 PT 19.2 H D INR 1.9 H APTT 40.9 H D Fibrinogen 102 L Puncture Site Right Radial ABG pH 7.46 H ABG pCO2 43 ABG pO2 97 ABG HCO3 30 H ABG O2 Saturation 99 H ABG Base Excess 6 H FiO2 35 Sodium 150 H Potassium 3.3 L Chloride 107 Carbon Dioxide 30.8 Anion Gap 12 BUN 32 H Creatinine 1.3 Estim Creat Clear Calc 44.9 L eGFR 49 L BUN/Creatinine Ratio 25 H Glucose 210 H Calculated Osmolality 310 H Calcium 11.1 H Corrected Calcium 11.1 H Phosphorus 2.8 Magnesium 2.7 H Total Bilirubin 7.4 H D AST 29 ALT 18 Alkaline Phosphatase 121 H D Total Protein 7.2 Albumin 4.9 Globulin 2.3 Albumin/Globulin Ratio 2.1 Misc Test Result Platelets confirmed Blood Type O Positive Antibody Screen NEGATIVE Crossmatch See Detail Blood Bank Wristband ID Yes Blood Bank Comment PLATP Ready 12/03/24 12/03/24 04:31 11:36 WBC RBC Hgb Hct MCV MCH MCHC RDW Std Deviation Plt Count Neut % (Auto) Lymph % (Auto) [place] % (Auto) Eos % (Auto) Baso % (Auto) Neut # (Auto) Lymph # (Auto) [place] # (Auto) Eos # (Auto) Baso # (Auto) Immature Gran # (Auto) Absolute Nucleated RBC Immature Gran % Nucleated RBC % PT INR APTT Fibrinogen Puncture Site Right Radial ABG pH 7.41 ABG pCO2 50 H ABG pO2 113 H ABG HCO3 31 H ABG O2 Saturation 99 H ABG Base Excess 6 H FiO2 21 Sodium Potassium Chloride Carbon Dioxide Anion Gap BUN Creatinine Estim Creat Clear Calc eGFR BUN/Creatinine Ratio Glucose Calculated Osmolality Calcium Corrected Calcium Phosphorus Magnesium Total Bilirubin AST ALT Alkaline Phosphatase Total Protein Albumin Globulin Albumin/Globulin Ratio Misc Test Result Blood Type O Positive Antibody Screen NEGATIVE Crossmatch Blood Bank Wristband ID Yes Blood Bank Comment ABG Interpretation ABG results: 11/27/24 11/27/24 11/28/24 14:52 21:14 04:57 ABG pH 7.31 L 7.34 L 7.36 ABG pCO2 44 39 34 ABG pO2 91 154 H D 168 H ABG HCO3 22 21 19 L ABG O2 Saturation 98 100 H 100 H ABG Base Excess -4 L -5 L -6 L 11/29/24 12/03/24 12/03/24 04:05 00:26 04:31 ABG pH 7.33 L 7.46 H 7.41 ABG pCO2 38 43 50 H ABG pO2 127 H D 97 113 H ABG HCO3 20 30 H 31 H ABG O2 Saturation 99 H 99 H 99 H ABG Base Excess -5 L 6 H 6 H Quality Measures Quality Measures VTE prophylaxis Assessment & Plan Assessment Current Active Medications: Generic Name Dose Route Start Last Admin Trade Name Freq PRN Reason Stop Dose Admin Albuterol 2.5 mg 12/02/24 11:04 Albuterol Rt 2.5 Mg/0.5 Ml Nebu INH 01/01/25 14:59 Q4HRRT PRN RESPIRATORY DISTRESS Cyanocobalamin 1,000 mcg 11/27/24 09:00 12/03/24 08:09 Cyanocobalamin 500 Mcg Tablet NG 12/27/24 08:59 1,000 mcg QDAY CELINA Administration Dextrose 25 ml 11/22/24 09:17 Dextrose 50%-Water Inj 50 Ml Syringe IV 12/22/24 09:16 Q15MIN PRN BG 50-70 responsive npo pt Dextrose 50 ml 11/22/24 09:17 Dextrose 50%-Water Inj 50 Ml Syringe IV 12/22/24 09:16 Q15MIN PRN BG <50 OR BG <70 & pt unresponsive Folic Acid 2.5 mg 11/27/24 09:00 12/03/24 08:09 Folic Acid 1 Mg Tablet NG 12/27/24 08:59 2.5 mg QDAY CELINA Administration Glucagon 1 mg 11/22/24 09:17 Glucagon Inj 1 Mg Vial IM Q15MIN PRN BG <70, and no IV access Heparin Sodium (Porcine) 3,000 unit 11/29/24 14:28 12/01/24 11:31 Heparin Sod Inj 1000 Unit/Ml Vial 10 Ml INDWELLCAT 12/13/24 14:27 3,000 unit PRN PRN Administration DIALYSIS Fluconazole 200 mg in 100 mls @ 100 mls/hr 11/29/24 09:00 12/03/24 08:09 Diflucan/Ns Ivpb IV 12/06/24 08:59 100 mls/hr QDAY CELINA Administration Albumin Human 25 gm in 100 mls @ 100 mls/min 11/29/24 09:45 Albuminex 25% Ivpb IV PRN PRN DIALYSIS Meropenem 2,000 mg/ Sodium 100 mls @ 100 mls/hr 12/01/24 09:00 12/03/24 09:02 Chloride IV 12/05/24 20:59 100 mls/hr Q12HR CELINA Administration Insulin Degludec 20 unit 12/03/24 09:00 12/03/24 08:11 Insulin Degludec 5 Unit/0.05 Ml (Per 5 Units) SC 01/02/25 08:59 20 unit QDAY CELINA Administration Insulin Human Lispro 0 unit 12/02/24 17:27 12/03/24 11:53 Insulin Lispro (Admelog) 1 Unit/0.01 Ml Unit SC 12/28/24 06:14 3 unit Q6HR CELINA Administration Protocol Lactobacillus Rhamnosus 2 cap 11/28/24 13:45 12/03/24 11:52 Lactobacillus Rhamnosus 1 Cap PO 12/28/24 13:44 2 cap WLUNCH CELINA Administration Lactulose 20 gm 11/30/24 12:00 12/03/24 11:52 Lactulose Syrup 20 Gm/30 Ml Udc PO 12/30/24 11:59 20 gm QID CELINA Administration Protocol Ondansetron HCl 4 mg 11/20/24 10:43 11/26/24 21:26 Ondansetron Inj 2 Mg/Ml Inj 2 Ml IVP 12/20/24 10:42 4 mg Q6HR PRN Administration NAUSEA OR VOMITING Protocol Pantoprazole Sodium 40 mg 11/27/24 09:00 12/03/24 08:10 Pantoprazole Inj 40 Mg Vial IV 12/27/24 08:59 40 mg BID CELINA Administration Rifaximin 550 mg 11/27/24 09:00 12/03/24 08:11 Rifaximin 550 Mg Tablet NG 12/04/24 08:59 550 mg BID CELINA Administration Sodium Chloride 3 ml 12/02/24 11:04 Sodium Chloride Rt Karis 0.9% 3 Ml Nebu INH 01/01/25 11:03 PRN PRN SOLN Spironolactone 50 mg 11/16/24 10:15 11/18/24 08:50 Spironolactone 25 Mg Tablet PO 12/16/24 10:14 50 mg On Hold: 11/19/24 06:52 DAILY CELINA Administration Thiamine HCl 100 mg 11/28/24 09:00 12/03/24 08:10 Thiamine Inj 100 Mg/Ml Vial 2 Ml IVP 12/28/24 08:59 100 mg QDAY CELINA Administration Plan Elzbieta Knight 54F with PMHx of decompensated alcoholic cirrhosis, multiple admissions for hepatic encephalopathy, prior variceal bleeding s/p banding, chronic pain, NIDDM2 presented to [facility] 11/13 for altered mental status, weakness and 2 episodes of hematemesis admitted for hepatic encephalopathy likely secondary to decompensated alcoholic cirrhosis, found to have LILY, later developing leukopenia, upgraded to ICU on 11/27 for intubation due to inability to protect airway. Downgraded to floors 12/03 for stable transfer. #Fulminant Liver Failure i/s/o End-Stage Liver Disease 2/2 Alcoholic Liver Cirrhosis #Hepatic encephalopathy, improving #Pancytopenia 2/2 likely cirrhosis and side effect of linezolid (agranulocytosis) #Coagulopathy/ DIC Patient has history of ESLD and hepatic encephalopathy with frequent hospitalizations. Per Mother, patient was diagnosed around September 2023 and this is when she stopped completely drinking alcohol as well. Initial 11/13 ammonia 153, treated with lactulose and rifaximin. During hospital stay, patient has acutely decompensated, with worsening coagulopathy, hepatic encephalopathy, pancytopenia with MELD-Na 40 and Maddrey 49.3. Patient has coagulopathy due to cirrhosis. INR and PTT undetectably high. Noted to have large bruises BUE. Received vitamin K and FFP. Additional platelet and FFP given 12/02, and cryoprecipitate. On 11/27 patient developed worsening encephalopathy, GCS 7, repeat ammonia 143 , lactulose had been down titrated due to loose stools. Patient subsequently intubated for airway protection. EEG consistent with acute encephalopathy. On 12/01: Head CT showed no cerebral edema, no stroke; Dialysis for ammonia elevation of 339, decreasing ammonia levels. On 12/03 mentation improved and patient extubated and pressors weaned off. Potential transfer to [facility] vs [facility]. Plan; - Broad spectrum abx per [facility] - Lactulose 20 mg NG TID and rifamixin 550 mg BID - Rectal tube in place - Continuing to treat hepatic encephalopathy and coagulopathy - Avoid hepatically metabolized medications when appropriate - Monitor for signs of blood lossheck fibrinogen/ PT/INR - Transfuse to keep PLT >10k unless invasive procedure #Acute hypoxic respiratory failure, resolved #Mechanical Ventilation 2/2 airway support (i/s/o improving hepatic encephalopathy) #Left base pneumonia, likely aspiration On ICU upgrade on 12/03, patient intubated due to not being able to protect airway with GCS 7. Likely due to aspiration in setting of decreased GCS CXR on 11/27 showed L base consolidation consistent with pneumonia, not seen on previous CXR (11/26).. Patient intubated for airway protection. Blood and sputum cultures- ESBL Klebsiella oxytoca in sputum, BCx NGTD. ET gram stain showed 1+ mixed thad, occasional budding yeast, fungal elements, 2+ wbcs; ET culture ESBL klebsiella oxytoca Plan: - Per [facility] for - Fluconazole 200 mg IV qd, Meropenem 2,000 mg IV q12hr, ##Hematemesis #Gastritis with recent mucusal bleeding #Grade I non-bleeding esophageal varicies at lower third of esophagus #Hx of Grade III esophageal varicies s/p banding 06/13/24 Patient history of varices requiring banding. EGD 11/14/24 showed garde 1 varices, mucosal oozing. Plan: - GI consulted, appreciate recs - Octreotide drip 5-day course completed - Protonix IV 40mg BID #Tube feedings Patient started on tube feeds due to AMS, inability to eat. Plan: - Dietary consulted, appreciate recommendation #LILY, s/p temporary dialysis, resolved #Hepatorenal syndrome #HAGMA (resolved) #UTI VRE, treatment completed Patient presented with significant LILY, creatinine 2.4 compared to baseline 0.9. Initially managed with albumin and midodrine however LILY returned likely 2/2 increasing hyperammonemia, in which patient received temporary dialysis. Completed 7 day course of linezolid (11/18-11/25) per ID. Ddx: Hepatorenal syndrome, ATN, decreased intravascular volume, lactic acidosis. Patient blood pressure and renal function improved with albumin, octreotide, and midodrine. Kidney function has since declined again, despite serum albumin levels elevated to 6.2. Potential ATN due to inability to hepatically metabolize potential nephrotoxins. Received dialysis 11/29, 11/30, 12/01 Plan: - Strict I's and O's - Renally dose medication and avoid nephrotoxins #Electrolyte imbalances #Hypercalcemia #Hypermagnesemia #Hypernatremia 11/29: Ca 11.0 (11.2), Mag 2.7 (2.8), Na 153 (150). Sodium being elevated may help possible cerebral edema. 12/03 Na 150 (145), Mag 2.7 (2.8), Ca 11.1 (9.9) likely due to volume loss from lactulose, dehydration Free water deficit calculated at 2.8 L. Likely due to lactulose and ensuing BM's. Plan: - Started free water flushes 59 cc/hr for 24 hrs to get 1.4 L for first 24 hrs - Recheck and replete electrolytes as needed Endo: #T2DM Patient has history of T2DM. A1c 6.0 as of 09/25/24. Plan: - Degludac 20u - SSI Hospital management: Lines: PIV Diet: Glucerna 1.2 nina Bowel: lactulose GI prophylaxis: IV pantoprazole 40 mg BID DVT prophylaxis: SCDs Disposition: tele, pending transfer CODE STATUS: FULL CODE Plan of care discussed with attending Dr. Sosa, and PGY-2 Dr. Tee. Ekaterina Quintero, DO PGY-1 Internal Medicine Attending Provider Attestation/Addendum I have seen and examined the patient. I was physically present for the son portions of the services provided including history, physical exam, diagnosis, treatment plans and orders. I agree with assessment and plan of care as documented by residents. Patient is a 54 years old female with past medical history of decompensated liver cirrhosis, multiple prior admissions due to hepatic encephalopathy, variceal bleeding status post banding, chronic pain, diabetes mellitus type 2, who presented to the ED on 11/13 with complaint of altered mental status, weakness and hematemesis. Patient was initially admitted for hepatic encephalopathy secondary to decompensated alcoholic liver cirrhosis. She was also found to have LILY, leukopenia and thrombocytopenia. During hospital course, patient developed worsening mentation with elevated ammonia level despite being on high dose of lactulose. With concern for airway protection, patient was transferred to ICU, intubated and started on mechanical ventilation. Due to unresponsiveness to lactulose, patient was started on hemodialysis, she also received blood product transfusions. Patient also received IV antibiotics for pneumonia and UTI. With improvement in patient's mentation, patient was extubated and transferred to telemetry today. Patient seen and examined in ICU floor, appears weak and tired but alert and oriented, able to follow commands. Complains of mild abdominal pain. Vital signs appear stable. Lab results show WBC of 1.7, platelets 16, hemoglobin 7.8, no obvious bleeding noted. PT/INR is 19.2/1.9 with APTT 40.9 and fibrinogen 102. Has sodium of 150, potassium 3.3, BUN/creatinine 32/1.3, calcium 11.1, total bilirubin 7.4, ALP 121. AST and ALT are within normal limits, ammonia from yesterday was 98. With profound leukopenia and fulminant liver cirrhosis, we will continue with IV meropenem and fluconazole. We will monitor closely for bleeding. With fulminant hepatic failure and need for evaluation for liver transplant, transferred to tertiary care center has been initiated by ICU. Patient is pending review of clinicals by [facility], transfer process has also been initiated with [facility]. Patient is currently hemodynamically stable to be transferred to tertiary center. Even though this this note was carefully revised there may still be minor errors in glass furnace tender due to voice recognition software. Godfrey Sosa MD
--- NOTE | 2024-12-03 15:35 | PD.IMPROG ---
Documentation for date of: 12/03/24 Subjective Subjective Interval history: 54 years old female evaluated in room 254 She is extubated Somewhat more alert Ammonia level as of yesterday 98 Pro time INR 1.9 BUN/creatinine 32 and 1.3 Total bilirubin 7.4 AST ALT 29 and 18 and alk phos of 121 Exam Vital Signs Temp Pulse Resp BP Pulse Ox O2 Del Method O2 Flow Rate 97.4 F 80 12 121/68 100 Mechanical Ventilation 2 12/03/24 13:55 12/03/24 14:10 12/03/24 13:55 12/03/24 14:10 12/03/24 14:10 12/02/24 16:00 12/03/24 13:55 FiO2 35 12/03/24 08:00 Objective Labs 12/03/24 04:28 12/03/24 04:28 Labs: Laboratory Results - last 24 hr 11/30/24 12/03/24 12/03/24 08:05 00:26 04:28 WBC 1.7 L RBC 2.49 L Hgb 7.8 L Hct 22.6 L MCV 91 MCH 31.3 MCHC 34.5 RDW Std Deviation 65.5 H Plt Count 16 L* D Neut % (Auto) 46 Lymph % (Auto) 39 [place] % (Auto) 8 Eos % (Auto) 6 Baso % (Auto) 1 Neut # (Auto) 0.8 L Lymph # (Auto) 0.7 L [place] # (Auto) 0.1 Eos # (Auto) 0.1 Baso # (Auto) 0.0 Immature Gran # (Auto) 0.01 H Absolute Nucleated RBC 0.00 Immature Gran % 1 H Nucleated RBC % 0 PT 19.2 H D INR 1.9 H APTT 40.9 H D Fibrinogen 102 L Puncture Site Right Radial ABG pH 7.46 H ABG pCO2 43 ABG pO2 97 ABG HCO3 30 H ABG O2 Saturation 99 H ABG Base Excess 6 H FiO2 35 Sodium 150 H Potassium 3.3 L Chloride 107 Carbon Dioxide 30.8 Anion Gap 12 BUN 32 H Creatinine 1.3 Estim Creat Clear Calc 44.9 L eGFR 49 L BUN/Creatinine Ratio 25 H Glucose 210 H Calculated Osmolality 310 H Calcium 11.1 H Corrected Calcium 11.1 H Phosphorus 2.8 Magnesium 2.7 H Total Bilirubin 7.4 H D AST 29 ALT 18 Alkaline Phosphatase 121 H D Total Protein 7.2 Albumin 4.9 Globulin 2.3 Albumin/Globulin Ratio 2.1 Misc Test Result Platelets confirmed Blood Type O Positive Antibody Screen NEGATIVE Crossmatch See Detail Blood Bank Wristband ID Yes Blood Bank Comment PLATP Ready 12/03/24 12/03/24 04:31 11:36 WBC RBC Hgb Hct MCV MCH MCHC RDW Std Deviation Plt Count Neut % (Auto) Lymph % (Auto) [place] % (Auto) Eos % (Auto) Baso % (Auto) Neut # (Auto) Lymph # (Auto) [place] # (Auto) Eos # (Auto) Baso # (Auto) Immature Gran # (Auto) Absolute Nucleated RBC Immature Gran % Nucleated RBC % PT INR APTT Fibrinogen Puncture Site Right Radial ABG pH 7.41 ABG pCO2 50 H ABG pO2 113 H ABG HCO3 31 H ABG O2 Saturation 99 H ABG Base Excess 6 H FiO2 21 Sodium Potassium Chloride Carbon Dioxide Anion Gap BUN Creatinine Estim Creat Clear Calc eGFR BUN/Creatinine Ratio Glucose Calculated Osmolality Calcium Corrected Calcium Phosphorus Magnesium Total Bilirubin AST ALT Alkaline Phosphatase Total Protein Albumin Globulin Albumin/Globulin Ratio Misc Test Result Blood Type O Positive Antibody Screen NEGATIVE Crossmatch Blood Bank Wristband ID Yes Blood Bank Comment Impressions Impression: Chronic liver disease secondary to alcohol Recurrent episodes of GI bleed secondary to esophageal varices requiring band ligation as well as hypertensive portal gastropathy with mucosal oozing of blood LILY Hepatic encephalopathy Continue supportive care ABG Interpretation ABG results: 11/27/24 11/27/24 11/28/24 14:52 21:14 04:57 ABG pH 7.31 L 7.34 L 7.36 ABG pCO2 44 39 34 ABG pO2 91 154 H D 168 H ABG HCO3 22 21 19 L ABG O2 Saturation 98 100 H 100 H ABG Base Excess -4 L -5 L -6 L 11/29/24 12/03/24 12/03/24 04:05 00:26 04:31 ABG pH 7.33 L 7.46 H 7.41 ABG pCO2 38 43 50 H ABG pO2 127 H D 97 113 H ABG HCO3 20 30 H 31 H ABG O2 Saturation 99 H 99 H 99 H ABG Base Excess -5 L 6 H 6 H Assessment & Plan A&P Narrative uti , mild with vre as only germ found po linezolid ok for this for total of 7d, cirrhosis, etoh related home at your discretion.if abd pain persists, then evaluate ascites will see again prn Time Spent With Patient Time: Total time spent is greater than 50% in coordination of care (as documented) at patient's floor/unit and/or counseling patient:
--- NOTE | 2024-12-03 20:36 | PC.NURSE ---
[facility] CALLED FOR UPDATE AND PROVIDED.
[2024-12-04] VITALS (25 sets, daily range): BP systolic 84–127; BP diastolic 47–76; PULSE 74–92; RESP 13–22; TEMP 36.4–36.8; O2SAT 100; BMI 33.5
[2024-12-04] MEDS: LACTULOSE SYRUP 20 GM/30 ML UDC PO ×4 (05:16→20:07)
[2024-12-04] MEDS: INSULIN LISPRO (AdmeLOG) 1 UNIT/0.01 ML UNIT SC ×4 (05:17→23:38)
[2024-12-04 05:48] LABS: Basophils # (Auto) 0.0 Thou/mm3 (0.0-0.2); Basophils % (Auto) 1 % (0-2.5); Eosinophils # (Auto) 0.1 Thou/mm3 (0.0-0.5); Eosinophils % (Auto) 4 % (0-10); Hematocrit 22.9 % (36.0-46.0); Immature Granulocytes Auto 0.01 Thou/mm3 (0.00-0.00); Lymphocytes # (Auto) 0.6 Thou/mm3 (1.0-4.8); Lymphocytes % (Auto) 37 % (10-50); Mean Corpuscular HGB Conc 33.6 g/dl (31.0-37.0); Mean Corpuscular Hemoglobin 30.9 pg (25.0-35.0); Mean Corpuscular Volume 92 fL (80-100); Monocytes # (Auto) 0.2 Thou/mm3 (0.0-0.8); Monocytes % (Auto) 12 % (0-12); Neutrophils # (Auto) 0.7 Thou/mm3 (1.8-7.7); Neutrophils % (Auto) 45 % (37-80); Nucleated Red Blood Cell # 0.00 Thou/mm3 (0.00-0.00); Nucleated Red Blood Cell % 0 /100 WBC (0); RDW Standard Deviation 67.2 fL (36.4-46.3); Red Blood Count 2.49 Miln/mm3 (4.00-5.20); White Blood Count 1.6 Thou/mm3 (3.6-11.0)
[2024-12-04 05:49] LABS: Hemoglobin 7.7 g/dL (12.0-16.0); Platelet Count 9 Thou/mm3 (140-440)
[2024-12-04 05:57] LABS: INR 1.9 (0.9-1.3); Partial Thromboplastin Time 31.1 Seconds (22.0-36.0); Prothrombin Time 19.1 Seconds (9.0-12.2)
[2024-12-04 06:23] LABS: Alanine Aminotransferase 17 U/L (10-49); Albumin, Serum 4.6 gm/dL (3.5-5.0); Albumin/Globulin Ratio 2.0 (1.2-2.2); Alkaline Phosphatase 113 U/L (46-116); Anion Gap 12 (7-16); Aspartate Amino Transferase 31 U/L (0-34); BUN/Creatinine Ratio 25 Ratio (12-20); Bilirubin,Total 6.2 mg/dL (0.3-1.2); Blood Urea Nitrogen 25 mg/dL (9-23); Calcium 11.2 mg/dL (8.3-10.6); Calcium (Corrected) 11.2 mg/dL (8.5-10.1); Carbon Dioxide 30.5 mMol/L (20.0-31.0); Chloride 110 mMol/L (98-107); Creatinine (Component) 1.0 mg/dL (0.6-1.3); Estimated Creatinine Clearance 57.6 mL/min (>60); Globulin 2.3 gm/dL (2.3-3.5); Glucose 214 mg/dL (74-106); Magnesium 2.7 mg/dL (1.6-2.6); Osmolality,Calculated 312 (275-295); Phosphorous 2.9 mg/dL (2.4-5.1); Potassium 4.3 mMol/L (3.4-5.1); Sodium 152 mMol/L (136-145); Total Protein 6.9 gm/dL (5.7-8.2); eGFR > 60 See Note
--- NOTE | 2024-12-04 08:28 | PD.RESPRO ---
Documentation for date of: 12/04/24 Subjective Subjective Interval history: Ms. Knight is a 54-year-old lady with a history of decompensated alcoholic cirrhosis (on transplant list), recurrent hepatic encephalopathy, upper GI bleed secondary to varices/banding, chronic pain syndrome, and type 2 diabetes mellitus. She was initially followed by nephrology earlier this admission for LILY and hyperkalemia which improved after albumin and supportive management. She was later reconsulted for severe hyperammonemia (ammonia 339) and metabolic acidosis requiring initiation of dialysis. 11/29/2024: Patient seen and evaluated in ICU. Intubated, not sedated, RASS -3, withdrawing to pain but no eye tracking. Vitals stable. Liz in place with low urine output. Team reports progressive somnolence and poor mentation over the past 48 hours. Ammonia 339 despite lactulose and rifaximin. Hepatitis panel pending. Plan to initiate dialysis today for ammonia clearance and metabolic control. Labs: WBC 2.3, hemoglobin 7.9, hematocrit 23.5, platelets 12, sodium 153, potassium 3.3, chloride 108, bicarbonate 20, anion gap 24, BUN 45, creatinine 1.6, calcium 10.5, magnesium 2.7, phosphorus 3.3, total bilirubin 7.9, AST 24, ALT 15, alkaline phosphatase 41, albumin 5.7, PT 20, INR 2.0, PTT 45, fibrinogen 145, pH 7.33, pCO2 38, HCO3 20, ammonia 339, osmolality 320, glucose 111, hepatitis panel pending. 11/30/2024 patient currently seen in ICU. Intubated, on ventilator. Isolation. Labs and medications reviewed. Ammonia level significantly elevated above heart initiate dialysis yesterday. Currently on conventional hemodialysis as ammonia is dialyzable. 12/02/2024: Patient seen today in ICU. She is now following simple commands and showing improvement in mentation compared to prior days. Urine output overnight was 800 cc. She remains hemodynamically stable and afebrile. ICU team discussed possible dialysis catheter removal, but decision made to keep the line for one more day and reevaluate tomorrow. Labs: Hemoglobin 8.9 (from 9.7 yesterday), hematocrit 23.5, platelets 6 (from 11 yesterday), PT 23, INR 2.4, PTT 53.4, sodium 145, potassium 3.7, chloride 105, bicarbonate 26.7, creatinine 1.4 (from 1.3 yesterday), GFR 45, calcium 9.9, phosphorus 3.4, magnesium 2.8, total bilirubin 8.4, ammonia 98 (down from 161 yesterday), troponin 45. 12/03/2024: Patient seen today in ICU. She remains intubated but is now following commands and currently on pressure support mode for ventilator weaning in anticipation of possible extubation. Urine output has improved significantly 2 L in the past 24 hours. No hemodialysis since ammonia and renal function have improved. Decision made to remove dialysis catheter today. Sodium noted to be elevated at 150; will suggest starting D5 infusion for gentle free water replacement. Labs: WBC 1.7, Hgb 7.8, Hct 22.6, Plt 16, Na 150, K 3.3, Cl 107, CO2 30, Cr 1.3, Ca 11.1, Mg 2.7, Phos 2.8. 12/04/2024: Patient seen today in ICU but downgraded to primary floor team. She is extubated, alert, and following commands. Reports fatigue but denies acute distress. Continues to make urine with good output. No further dialysis required. Dialysis catheter was removed yesterday. Hemodynamically stable. Labs WBC 1.6, Hgb 7.7, Hct 22.9, Plt 9 (receiving platelet transfusion), Na 152, K 4.3, Cl 110, CO2 30, BUN 25, Cr 1.0, Ca 11.2, Phos 2.9, Mg 2.7. Exam Vital Signs Temp Pulse Resp BP Pulse Ox O2 Del Method O2 Flow Rate 98.2 F 83 19 109/64 100 Nasal Cannula 2 12/04/24 04:00 12/04/24 06:12 12/04/24 06:12 12/04/24 04:00 12/04/24 06:12 12/04/24 04:00 12/04/24 06:12 FiO2 35 12/03/24 08:00 Narrative Exam General: Extubated, awake, alert, following commands. HEENT: Scleral icterus present, mucous membranes moist. Neck: Supple, no JVD. Cardiovascular: Regular rhythm, mild chest fatigue reported, no murmurs. Respiratory: Clear breath sounds bilaterally, no distress. Abdomen extremities: Soft, mildly distended, non-tender, ascites present. Extremities: No edema. Skin: Jaundiced, no new bruising or rash. Neurological: Awake, alert, follows commands, oriented. Objective Labs 12/04/24 04:31 12/04/24 04:31 Labs: Laboratory Results - last 24 hr 12/03/24 12/04/24 11:36 04:31 WBC 1.6 L RBC 2.49 L Hgb 7.7 L Hct 22.9 L MCV 92 MCH 30.9 MCHC 33.6 RDW Std Deviation 67.2 H Plt Count 9 L* D Neut % (Auto) 45 Lymph % (Auto) 37 [place] % (Auto) 12 Eos % (Auto) 4 Baso % (Auto) 1 Neut # (Auto) 0.7 L Lymph # (Auto) 0.6 L [place] # (Auto) 0.2 Eos # (Auto) 0.1 Baso # (Auto) 0.0 Immature Gran # (Auto) 0.01 H Absolute Nucleated RBC 0.00 Immature Gran % 1 H Nucleated RBC % 0 PT 19.1 H INR 1.9 H APTT 31.1 Sodium 152 H Potassium 4.3 D Chloride 110 H Carbon Dioxide 30.5 Anion Gap 12 BUN 25 H Creatinine 1.0 Estim Creat Clear Calc 57.6 L eGFR > 60 BUN/Creatinine Ratio 25 H Glucose 214 H Calculated Osmolality 312 H Calcium 11.2 H Corrected Calcium 11.2 H Phosphorus 2.9 Magnesium 2.7 H Total Bilirubin 6.2 H D AST 31 ALT 17 Alkaline Phosphatase 113 Total Protein 6.9 Albumin 4.6 Globulin 2.3 Albumin/Globulin Ratio 2.0 Blood Type O Positive Antibody Screen NEGATIVE Blood Bank Wristband ID Yes ABG Interpretation ABG results: 11/27/24 11/27/24 11/28/24 14:52 21:14 04:57 ABG pH 7.31 L 7.34 L 7.36 ABG pCO2 44 39 34 ABG pO2 91 154 H D 168 H ABG HCO3 22 21 19 L ABG O2 Saturation 98 100 H 100 H ABG Base Excess -4 L -5 L -6 L 11/29/24 12/03/24 12/03/24 04:05 00:26 04:31 ABG pH 7.33 L 7.46 H 7.41 ABG pCO2 38 43 50 H ABG pO2 127 H D 97 113 H ABG HCO3 20 30 H 31 H ABG O2 Saturation 99 H 99 H 99 H ABG Base Excess -5 L 6 H 6 H Quality Measures Quality Measures VTE prophylaxis Assessment & Plan Assessment Current Active Medications: Generic Name Dose Route Start Last Admin Trade Name Freq PRN Reason Stop Dose Admin Albuterol 2.5 mg 12/02/24 11:04 Albuterol Rt 2.5 Mg/0.5 Ml Nebu INH 01/01/25 14:59 Q4HRRT PRN RESPIRATORY DISTRESS Cyanocobalamin 1,000 mcg 11/27/24 09:00 12/03/24 08:09 Cyanocobalamin 500 Mcg Tablet NG 12/27/24 08:59 1,000 mcg QDAY CELINA Administration Dextrose 25 ml 11/22/24 09:17 Dextrose 50%-Water Inj 50 Ml Syringe IV 12/22/24 09:16 Q15MIN PRN BG 50-70 responsive npo pt Dextrose 50 ml 11/22/24 09:17 Dextrose 50%-Water Inj 50 Ml Syringe IV 12/22/24 09:16 Q15MIN PRN BG <50 OR BG <70 & pt unresponsive Folic Acid 2.5 mg 11/27/24 09:00 12/03/24 08:09 Folic Acid 1 Mg Tablet NG 12/27/24 08:59 2.5 mg QDAY CELINA Administration Glucagon 1 mg 11/22/24 09:17 Glucagon Inj 1 Mg Vial IM Q15MIN PRN BG <70, and no IV access Heparin Sodium (Porcine) 3,000 unit 11/29/24 14:28 12/01/24 11:31 Heparin Sod Inj 1000 Unit/Ml Vial 10 Ml INDWELLCAT 12/13/24 14:27 3,000 unit PRN PRN Administration DIALYSIS Fluconazole 200 mg in 100 mls @ 100 mls/hr 11/29/24 09:00 12/03/24 08:09 Diflucan/Ns Ivpb IV 12/07/24 23:55 100 mls/hr QDAY CELINA Administration Meropenem 2,000 mg/ Sodium 100 mls @ 100 mls/hr 12/03/24 20:00 12/03/24 21:00 Chloride IV 12/07/24 18:44 Infused Q12HR CELINA Infusion Insulin Degludec 20 unit 12/03/24 09:00 12/03/24 08:11 Insulin Degludec 5 Unit/0.05 Ml (Per 5 Units) SC 01/02/25 08:59 20 unit QDAY CELINA Administration Insulin Human Lispro 0 unit 12/02/24 17:27 12/04/24 05:17 Insulin Lispro (Admelog) 1 Unit/0.01 Ml Unit SC 12/28/24 06:14 3 unit Q6HR CELINA Administration Protocol Lactobacillus Rhamnosus 2 cap 11/28/24 13:45 12/03/24 11:52 Lactobacillus Rhamnosus 1 Cap PO 12/28/24 13:44 2 cap WLUNCH CELINA Administration Lactulose 20 gm 11/30/24 12:00 12/04/24 05:16 Lactulose Syrup 20 Gm/30 Ml Udc PO 12/30/24 11:59 20 gm QID CELINA Administration Protocol Ondansetron HCl 4 mg 11/20/24 10:43 11/26/24 21:26 Ondansetron Inj 2 Mg/Ml Inj 2 Ml IVP 12/20/24 10:42 4 mg Q6HR PRN Administration NAUSEA OR VOMITING Protocol Pantoprazole Sodium 40 mg 11/27/24 09:00 12/03/24 20:40 Pantoprazole Inj 40 Mg Vial IV 12/27/24 08:59 40 mg BID CELINA Administration Rifaximin 550 mg 11/27/24 09:00 12/03/24 20:40 Rifaximin 550 Mg Tablet NG 12/14/24 08:59 550 mg BID CELINA Administration Sodium Chloride 3 ml 12/02/24 11:04 Sodium Chloride Rt Karis 0.9% 3 Ml Nebu INH 01/01/25 11:03 PRN PRN SOLN Spironolactone 50 mg 11/16/24 10:15 11/18/24 08:50 Spironolactone 25 Mg Tablet PO 12/16/24 10:14 50 mg On Hold: 11/19/24 06:52 DAILY CELINA Administration Thiamine HCl 100 mg 11/28/24 09:00 12/03/24 08:10 Thiamine Inj 100 Mg/Ml Vial 2 Ml IVP 12/28/24 08:59 100 mg QDAY CELINA Administration Plan 54-year-old female with end-stage liver disease complicated by hepatic encephalopathy, coagulopathy, and LILY requiring intermittent dialysis for ammonia clearance. now extubated and clinically improving with stable renal indices. #Acute Kidney Injury (LILY) Multifactorial (hepatorenal vs ATN) Creatinine 1.0 (improved from 1.3 yesterday), adequate urine output, hemodynamically stable. Plan: No dialysis indicated, renal function stable Dialysis catheter removed yesterday Continue daily BMP and strict I/O monitoring Continue D5 infusion for hypernatremia (Na 152) Maintain euvolemia and renal dosing of medications Avoid nephrotoxins Monitor electrolytes and renal trends closely #Severe Hyperammonemia (improved) Last ammonia level decreased to 98 (from 161 yesterday) after prior dialysis and medical therapy. Plan: Continue lactulose and rifaximin No further dialysis required today as levels continue to decline Other active problems: #Left base pneumonia, likely aspiration #Acute decompensated liver failure #Esophageal varices #Tube feedings #Hypercalcemia #Hypomagnesemia #Hyper natremia #T2DM #Pancytopenia #VRE, treated completed #Aspiration pneumonia Management per primary team ----- Plan discussed with attending physician Dr. Yenny Raya MD PGY-1 Internal Medicine Attending Provider Attestation/Addendum Patient seen and examined with resident physician Dr. Raya. Note reviewed, agree with findings and recommendations. Urine output improved. Patient extubated yesterday. Dialysis catheter was removed yesterday. No need for further dialysis sessions. Ammonia level improved. Spoke to ICU team.
[2024-12-04] MEDS: FOLIC ACID 1 MG TABLET 2.5 MG NG (08:55)
[2024-12-04] MEDS: THIAMINE INJ 100 MG/ML VIAL 2 ML IVP (08:56)
[2024-12-04] MEDS: FLUCONAZOLE/NS 200 MG IVPB 200 MG/100 ML BAG 100 MG IV (09:00)
[2024-12-04] MEDS: MEROPENEM INJ 2,000 MG in SODIUM CHLORIDE 0.9% 100 ML 100 MG IV ×2 (09:11→20:07)
[2024-12-04] MEDS: INSULIN DEGLUDEC 5 UNIT/0.05 ML (PER 5 UNITS) 20 UNIT SC (09:38)
--- NOTE | 2024-12-04 10:20 | CHAP ---
Patient was visited by a Spiritual Care Volunteer on 12/04/2024 between 902 and 917 and received comfort, encouragement and/or prayer.
[2024-12-04 11:04] LABS: Slide Review Platelets confirmed
[2024-12-04] MEDS: LACTOBACILLUS RHAMNOSUS 1 CAP 2 CAP PO (11:58)
--- NOTE | 2024-12-04 13:09 | PC.SS ---
Update: Transfer pending. Patient extubated on 12-03-24. Patient on 3L nasal cannula. NG tube feedings. Dr. Culp is consulting.
--- NOTE | 2024-12-04 15:51 | ESPR_ITS ---
<Statement entered by Zach Plata MD - 12/04/24 16:59> I have reviewed the note and agree with the resident's assessment & plan with exceptions as below. I have personally reviewed labs, imaging, home meds/prior records, examined the patient, formulated and discussed management plan with my attending Patient was seen evaluated bedside this morning. No acute overnight events. Patient's platelets this morning around 9 therefore 1 unit of platelets were transfused. Patient still pending transfer, still waiting for bed availability at [facility] [place]. Patient's MELD score today was 34. Will continue with fluconazole and meropenem for now until the . Patient sputum did show Klebsiella oxytoca, sensitive to meropenem. Otherwise no other complaints at this time. Will get PT to work with patient. Zach Plata PGY2 Disclaimer: Even though this this note was dictated by speech recognition and even though it was carefully revised there may still be minor errors in certified surgical technologist due to voice recognition software. Documentation for date of: 12/04/24 Subjective Subjective Interval history: No acute overnight events. Patient seen and examined at bedside. Patient still experiencing generalized weakness and abdominal pain. Extremely fatigued and alert and oriented x 3. Vitals labs reviewed. SBP 100s. Heart rate 80s. Saturating 100% on 2 L. WBC 1.6, hemoglobin 7.7, platelets 9 ordered to transfuse 1 unit platelets. PT 19.1, INR 1.9, sodium 152, BUN 25, creatinine 1.0, glucose 214, calcium 11.2, T bilirubin 6.2, MELD 34 with 52.6% 3-month mortality. Continue cephalopathy treatment. Plan for PT today and possible removal of rectal tube. Continue fluconazole and meropenem. Exam Vital Signs Temp Pulse Resp BP Pulse Ox O2 Del Method O2 Flow Rate 97.9 F 79 14 121/64 100 Nasal Cannula 2 12/04/24 12:00 12/04/24 12:00 12/04/24 12:00 12/04/24 12:00 12/04/24 12:00 12/04/24 12:00 12/04/24 12:00 FiO2 35 12/03/24 08:00 Narrative Exam GENERAL: Alert and oriented x3, no acute distress, following commands HEENT: NC/AT, mucous membranes moist, bilateral sclera icteric CARDIOVASCULAR: regular rate and rhythm, S1/S2 present, 3/6 systolic murmur heard best at left 2nd intercostal space PULMONARY: clear to auscultation bilaterally, no rales/rhonchi/wheezes ABDOMINAL: diffuse tenderness to palpation, no rebound/guarding, bowel sounds hyperactive EXTREMITIES: no peripheral edema SKIN: warm and dry, intact, no rashes, significant bruising BUE and BUE swelling NEURO: CN II-XII grossly intact, no focal deficits, alert, following commands, + 2/5 strength of BUE and BLE Objective Labs 12/05/24 04:46 12/05/24 04:46 Labs: Laboratory Results - last 24 hr 12/04/24 04:31 WBC 1.6 L RBC 2.49 L Hgb 7.7 L Hct 22.9 L MCV 92 MCH 30.9 MCHC 33.6 RDW Std Deviation 67.2 H Plt Count 9 L* D Neut % (Auto) 45 Lymph % (Auto) 37 [place] % (Auto) 12 Eos % (Auto) 4 Baso % (Auto) 1 Neut # (Auto) 0.7 L Lymph # (Auto) 0.6 L [place] # (Auto) 0.2 Eos # (Auto) 0.1 Baso # (Auto) 0.0 Immature Gran # (Auto) 0.01 H Absolute Nucleated RBC 0.00 Immature Gran % 1 H Nucleated RBC % 0 PT 19.1 H INR 1.9 H APTT 31.1 Sodium 152 H Potassium 4.3 D Chloride 110 H Carbon Dioxide 30.5 Anion Gap 12 BUN 25 H Creatinine 1.0 Estim Creat Clear Calc 57.6 L eGFR > 60 BUN/Creatinine Ratio 25 H Glucose 214 H Calculated Osmolality 312 H Calcium 11.2 H Corrected Calcium 11.2 H Phosphorus 2.9 Magnesium 2.7 H Total Bilirubin 6.2 H D AST 31 ALT 17 Alkaline Phosphatase 113 Total Protein 6.9 Albumin 4.6 Globulin 2.3 Albumin/Globulin Ratio 2.0 Misc Test Result Platelets confirmed ABG Interpretation ABG results: 11/27/24 11/27/24 11/28/24 14:52 21:14 04:57 ABG pH 7.31 L 7.34 L 7.36 ABG pCO2 44 39 34 ABG pO2 91 154 H D 168 H ABG HCO3 22 21 19 L ABG O2 Saturation 98 100 H 100 H ABG Base Excess -4 L -5 L -6 L 10/16/25 10/20/25 10/20/25 04:05 00:26 04:31 ABG pH 7.33 L 7.46 H 7.41 ABG pCO2 38 43 50 H ABG pO2 127 H D 97 113 H ABG HCO3 20 30 H 31 H ABG O2 Saturation 99 H 99 H 99 H ABG Base Excess -5 L 6 H 6 H Quality Measures Quality Measures VTE prophylaxis Assessment & Plan Assessment Current Active Medications: Generic Name Dose Route Start Last Admin Trade Name Freq PRN Reason Stop Dose Admin Albuterol 2.5 mg 12/02/24 11:04 Albuterol Rt 2.5 Mg/0.5 Ml Nebu INH 01/01/25 14:59 Q4HRRT PRN RESPIRATORY DISTRESS Cyanocobalamin 1,000 mcg 11/27/24 09:00 12/04/24 08:54 Cyanocobalamin 500 Mcg Tablet NG 12/27/24 08:59 1,000 mcg QDAY CELINA Administration Dextrose 25 ml 11/22/24 09:17 Dextrose 50%-Water Inj 50 Ml Syringe IV 12/22/24 09:16 Q15MIN PRN BG 50-70 responsive npo pt Dextrose 50 ml 11/22/24 09:17 Dextrose 50%-Water Inj 50 Ml Syringe IV 12/22/24 09:16 Q15MIN PRN BG <50 OR BG <70 & pt unresponsive Folic Acid 2.5 mg 11/27/24 09:00 12/04/24 08:55 Folic Acid 1 Mg Tablet NG 12/27/24 08:59 2.5 mg QDAY CELINA Administration Glucagon 1 mg 11/22/24 09:17 Glucagon Inj 1 Mg Vial IM Q15MIN PRN BG <70, and no IV access Heparin Sodium (Porcine) 3,000 unit 11/29/24 14:28 12/01/24 11:31 Heparin Sod Inj 1000 Unit/Ml Vial 10 Ml INDWELLCAT 12/13/24 14:27 3,000 unit PRN PRN Administration DIALYSIS Fluconazole 200 mg in 100 mls @ 100 mls/hr 11/29/24 09:00 12/04/24 09:00 Diflucan/Ns Ivpb IV 12/07/24 23:55 100 mls/hr QDAY CELINA Administration Meropenem 2,000 mg/ Sodium 100 mls @ 100 mls/hr 12/03/24 20:00 12/04/24 09:11 Chloride IV 12/07/24 18:44 100 mls/hr Q12HR CELINA Administration Insulin Degludec 20 unit 12/03/24 09:00 12/04/24 09:38 Insulin Degludec 5 Unit/0.05 Ml (Per 5 Units) SC 01/02/25 08:59 20 unit QDAY CELINA Administration Insulin Human Lispro 0 unit 12/02/24 17:27 12/04/24 11:59 Insulin Lispro (Admelog) 1 Unit/0.01 Ml Unit SC 12/28/24 06:14 3 unit Q6HR CELINA Administration Protocol Lactobacillus Rhamnosus 2 cap 11/28/24 13:45 12/04/24 11:58 Lactobacillus Rhamnosus 1 Cap PO 12/28/24 13:44 2 cap WLUNCH CELINA Administration Lactulose 20 gm 11/30/24 12:00 12/04/24 11:58 Lactulose Syrup 20 Gm/30 Ml Udc PO 12/30/24 11:59 20 gm QID CELINA Administration Protocol Ondansetron HCl 4 mg 11/20/24 10:43 11/26/24 21:26 Ondansetron Inj 2 Mg/Ml Inj 2 Ml IVP 12/20/24 10:42 4 mg Q6HR PRN Administration NAUSEA OR VOMITING Protocol Pantoprazole Sodium 40 mg 11/27/24 09:00 12/04/24 08:55 Pantoprazole Inj 40 Mg Vial IV 12/27/24 08:59 40 mg BID CELINA Administration Rifaximin 550 mg 11/27/24 09:00 12/04/24 08:55 Rifaximin 550 Mg Tablet NG 12/14/24 08:59 550 mg BID CELINA Administration Sodium Chloride 3 ml 12/02/24 11:04 Sodium Chloride Rt Karis 0.9% 3 Ml Nebu INH 01/01/25 11:03 PRN PRN SOLN Spironolactone 50 mg 11/16/24 10:15 11/18/24 08:50 Spironolactone 25 Mg Tablet PO 12/16/24 10:14 50 mg On Hold: 11/19/24 06:52 DAILY CELINA Administration Thiamine HCl 100 mg 11/28/24 09:00 12/04/24 08:56 Thiamine Inj 100 Mg/Ml Vial 2 Ml IVP 12/28/24 08:59 100 mg QDAY CELINA Administration Plan Elzbieta Knight [id number] with PMHx of decompensated alcoholic cirrhosis, multiple admissions for hepatic encephalopathy, prior variceal bleeding s/p banding, chronic pain, NIDDM2 presented to [facility] 11/13 for altered mental status, weakness and 2 episodes of hematemesis admitted for hepatic encephalopathy likely secondary to decompensated alcoholic cirrhosis, found to have LILY, later developing leukopenia, upgraded to ICU on 11/27 for intubation due to inability to protect airway. Downgraded to floors 12/03 for stable transfer. #Fulminant Liver Failure i/s/o End-Stage Liver Disease 2/2 Alcoholic Liver Cirrhosis #Hepatic encephalopathy, improving #Pancytopenia 2/2 likely cirrhosis and side effect of linezolid (agranulocytosis) #Coagulopathy/ DIC Patient has history of ESLD and hepatic encephalopathy with frequent hospitalizations. Per Mother, patient was diagnosed around September 2023 and this is when she stopped completely drinking alcohol as well. Initial 11/13 ammonia 153, treated with lactulose and rifaximin. During hospital stay, patient has acutely decompensated, with worsening coagulopathy, hepatic encephalopathy, pancytopenia with MELD-Na 40 and Madd[place] 49.3. Patient has coagulopathy due to cirrhosis. INR and PTT undetectably high. Noted to have large bruises BUE. Received vitamin K and FFP. Additional platelet and FFP given 12/02, and cryoprecipitate. On 12/04, 1u platelets ordered. Totals transfused this admission: 5u pRBC, 4 FFP, 5 platelets, 11 cryoprecipitate On 11/27 patient developed worsening encephalopathy, GCS 7, repeat ammonia 143 , lactulose had been down titrated due to loose stools. Patient subsequently intubated for airway protection. EEG consistent with acute encephalopathy. On 12/01: Head CT showed no cerebral edema, no stroke; Dialysis for ammonia elevation of 339, decreasing ammonia levels. On 12/03 mentation improved and patient extubated and pressors weaned off. Potential transfer to [facility] [place] vs [place], likely former due to insurance authorization. MELD 34 Plan; - Broad spectrum abx per [facility] [place], fluconazole 200 mg IV qd, Meropenem 2,000 mg IV q12hr - Lactulose 20 mg NG QID and rifamixin 550 mg BID - Rectal tube in place, plan to remove - Continuing to treat hepatic encephalopathy and coagulopathy - Avoid hepatically metabolized medications when appropriate - Monitor for signs of blood lossheck fibrinogen/ PT/INR - Transfuse to keep PLT >10k unless invasive procedure, 1u platelets today - PT ordered #Klebsiella oxytoca, ESBL and huong dubliniensis PNA #Acute hypoxic respiratory failure, resolved #Mechanical Ventilation 2/2 airway support (i/s/o improving hepatic encephalopathy), extubated 12/03 On ICU upgrade on 12/03, patient intubated due to not being able to protect airway with GCS 7. Likely due to aspiration in setting of decreased GCS CXR on 11/27 showed L base consolidation consistent with pneumonia, not seen on previous CXR (11/26).. Patient intubated for airway protection. Blood and sputum cultures- ESBL Klebsiella oxytoca in sputum, BCx NGTD. ET gram stain showed 1+ mixed thad, occasional budding yeast, fungal elements, 2+ wbcs; ET culture ESBL klebsiella oxytoca and huong dubliniensis Plan: - Broad spectrum abx per [facility] [place] as above #Hematemesis #Gastritis with recent mucusal bleeding #Grade I non-bleeding esophageal varicies at lower third of esophagus #Hx of Grade III esophageal varicies s/p banding 06/13/24 Patient history of varices requiring banding. EGD 11/14/24 showed garde 1 varices, mucosal oozing. Plan: - GI consulted, appreciate recs - Octreotide drip 5-day course completed - Protonix IV 40mg BID #Tube feedings Patient started on tube feeds due to AMS, inability to eat. Plan: - Dietary consulted, appreciate recommendation #LILY, s/p temporary dialysis, resolved #Hepatorenal syndrome #HAGMA (resolved) #UTI VRE, treatment completed Patient presented with significant LILY, creatinine 2.4 compared to baseline 0.9. Initially managed with albumin and midodrine however LILY returned likely 2/2 increasing hyperammonemia, in which patient received temporary dialysis. Completed 7 day course of linezolid (11/18-11/25) per ID. Ddx: Hepatorenal syndrome, ATN, decreased intravascular volume, lactic acidosis. Patient blood pressure and renal function improved with albumin, octreotide, and midodrine. Kidney function has since declined again, despite serum albumin levels elevated to 6.2. Potential ATN due to inability to hepatically metabolize potential nephrotoxins. Received dialysis 11/29, 11/30, 12/01. TDC removed 12/03. Plan: - Strict I's and O's - Renally dose medication and avoid nephrotoxins #Electrolyte imbalances #Hypercalcemia #Hypermagnesemia #Hypernatremia 11/29: Ca 11.0 (11.2), Mag 2.7 (2.8), Na 153 (150). Sodium being elevated may help possible cerebral edema. 12/03 Na 150 (145), Mag 2.7 (2.8), Ca 11.1 (9.9) likely due to volume loss from lactulose, dehydration Free water deficit calculated at 3.2 L. Likely due to lactulose and ensuing BM's. Plan: - Started free water flushes 59 cc/hr for 24 hrs to get 1.4 L for 24 hrs - Recheck and replete electrolytes as needed Endo: #T2DM Patient has history of T2DM. A1c 6.0 as of 09/25/24. Plan: - Degludac 20u - SSI Hospital management: Lines: PIV Diet: Glucerna 1.2 nina Bowel: lactulose GI prophylaxis: IV pantoprazole 40 mg BID DVT prophylaxis: SCDs Disposition: tele, pending transfer CODE STATUS: FULL CODE Plan of care discussed with attending Dr. Sosa, and PGY-2 Dr. Tee. Ekaterina Quintero, DO PGY-1 Internal Medicine Attending Provider Attestation/Addendum I have seen and examined the patient. I was physically present for the son portions of the services provided including history, physical exam, diagnosis, treatment plans and orders. I agree with assessment and plan of care as documented by residents. Patient seen and examined at bedside this morning. No acute overnight events, appears comfortable. Sleepy and tired, wakes up on calling, alert and oriented, able to follow commands but not able to move well because of global weakness. Has tenderness all over. Platelet this morning was 9, transfused 1 units of pheresis platelets. Vital signs are stable, saturating well on 2 L nasal cannula. Continues to have elevated PT/INR, bilirubin. We will obtain physical therapy evaluation. Continues to be on lactulose, fluconazole, meropenem. Rectal tube in place, patient having good amount of bowel. We will continue to monitor closely for anemia, thrombocytopenia, transfuse if needed. Patient is awaiting transfer to [facility] [place] for further management of fulminant liver failure, hepatic encephalopathy, and possible evaluation for liver transplantation. Even though this this note was carefully revised there may still be minor errors in certified surgical technologist due to voice recognition software. Godfrey Sosa MD
--- NOTE | 2024-12-04 20:45 | PD.IMPROG ---
Documentation for date of: 12/04/24 Subjective Subjective Interval history: Patient more alert Responsive to questioning Still waiting for acceptance Exam Vital Signs Temp Pulse Resp BP Pulse Ox O2 Del Method O2 Flow Rate 97.8 F 79 14 88/48 L 100 Nasal Cannula 2 12/04/24 20:30 12/04/24 20:30 12/04/24 20:30 12/04/24 20:30 12/04/24 20:30 12/04/24 16:01 12/04/24 20:30 FiO2 35 12/03/24 08:00 Objective Labs 12/04/24 04:31 12/04/24 04:31 Labs: Laboratory Results - last 24 hr 12/03/24 12/04/24 11:36 04:31 WBC 1.6 L RBC 2.49 L Hgb 7.7 L Hct 22.9 L MCV 92 MCH 30.9 MCHC 33.6 RDW Std Deviation 67.2 H Plt Count 9 L* D Neut % (Auto) 45 Lymph % (Auto) 37 [place] % (Auto) 12 Eos % (Auto) 4 Baso % (Auto) 1 Neut # (Auto) 0.7 L Lymph # (Auto) 0.6 L [place] # (Auto) 0.2 Eos # (Auto) 0.1 Baso # (Auto) 0.0 Immature Gran # (Auto) 0.01 H Absolute Nucleated RBC 0.00 Immature Gran % 1 H Nucleated RBC % 0 PT 19.1 H INR 1.9 H APTT 31.1 Sodium 152 H Potassium 4.3 D Chloride 110 H Carbon Dioxide 30.5 Anion Gap 12 BUN 25 H Creatinine 1.0 Estim Creat Clear Calc 57.6 L eGFR > 60 BUN/Creatinine Ratio 25 H Glucose 214 H Calculated Osmolality 312 H Calcium 11.2 H Corrected Calcium 11.2 H Phosphorus 2.9 Magnesium 2.7 H Total Bilirubin 6.2 H D AST 31 ALT 17 Alkaline Phosphatase 113 Total Protein 6.9 Albumin 4.6 Globulin 2.3 Albumin/Globulin Ratio 2.0 Misc Test Result Platelets confirmed Blood Type O Positive Antibody Screen NEGATIVE Blood Bank Wristband ID Yes Blood Bank Comment PLATP Ready Impressions Impression: Metabolic encephalopathy improving Chronic liver disease secondary to alcohol Advanced portal hypertension with esophageal varices and mucosal oozing of blood stable Continue current management ABG Interpretation ABG results: 11/27/24 11/27/24 11/28/24 14:52 21:14 04:57 ABG pH 7.31 L 7.34 L 7.36 ABG pCO2 44 39 34 ABG pO2 91 154 H D 168 H ABG HCO3 22 21 19 L ABG O2 Saturation 98 100 H 100 H ABG Base Excess -4 L -5 L -6 L 11/29/24 12/03/24 12/03/24 04:05 00:26 04:31 ABG pH 7.33 L 7.46 H 7.41 ABG pCO2 38 43 50 H ABG pO2 127 H D 97 113 H ABG HCO3 20 30 H 31 H ABG O2 Saturation 99 H 99 H 99 H ABG Base Excess -5 L 6 H 6 H Assessment & Plan A&P Narrative uti , mild with vre as only germ found po linezolid ok for this for total of 7d, cirrhosis, etoh related home at your discretion.if abd pain persists, then evaluate ascites will see again prn Time Spent With Patient Time: Total time spent is greater than 50% in coordination of care (as documented) at patient's floor/unit and/or counseling patient:
[2024-12-05] VITALS (26 sets, daily range): BP systolic 101–124; BP diastolic 66–80; PULSE 82–99; RESP 11–21; TEMP 36.3–36.9; O2SAT 98–100
[2024-12-05] MEDS: INSULIN LISPRO (AdmeLOG) 1 UNIT/0.01 ML UNIT SC ×2 (05:24→12:37)
[2024-12-05] MEDS: LACTULOSE SYRUP 20 GM/30 ML UDC PO ×2 (05:24→12:37)
[2024-12-05 06:02] LABS: Basophils # (Auto) 0.0 Thou/mm3 (0.0-0.2); Basophils % (Auto) 1 % (0-2.5); Eosinophils # (Auto) 0.1 Thou/mm3 (0.0-0.5); Eosinophils % (Auto) 4 % (0-10); Hematocrit 20.8 % (36.0-46.0); Immature Granulocytes Auto 0.02 Thou/mm3 (0.00-0.00); Lymphocytes # (Auto) 0.5 Thou/mm3 (1.0-4.8); Lymphocytes % (Auto) 28 % (10-50); Mean Corpuscular HGB Conc 32.2 g/dl (31.0-37.0); Mean Corpuscular Hemoglobin 30.3 pg (25.0-35.0); Mean Corpuscular Volume 94 fL (80-100); Monocytes # (Auto) 0.3 Thou/mm3 (0.0-0.8); Monocytes % (Auto) 17 % (0-12); Neutrophils # (Auto) 0.9 Thou/mm3 (1.8-7.7); Neutrophils % (Auto) 50 % (37-80); Nucleated Red Blood Cell # 0.00 Thou/mm3 (0.00-0.00); Nucleated Red Blood Cell % 0 /100 WBC (0); RDW Standard Deviation 65.8 fL (36.4-46.3); Red Blood Count 2.21 Miln/mm3 (4.00-5.20); White Blood Count 1.9 Thou/mm3 (3.6-11.0)
[2024-12-05 06:05] LABS: Hemoglobin 6.7 g/dL (12.0-16.0); Platelet Count 17 Thou/mm3 (140-440)
[2024-12-05 06:08] LABS: INR 1.8 (0.9-1.3); Partial Thromboplastin Time 33.8 Seconds (22.0-36.0); Prothrombin Time 18.2 Seconds (9.0-12.2)
[2024-12-05 06:28] LABS: Alanine Aminotransferase 18 U/L (10-49); Albumin, Serum 4.7 gm/dL (3.5-5.0); Albumin/Globulin Ratio 2.5 (1.2-2.2); Alkaline Phosphatase 132 U/L (46-116); Anion Gap 12 (7-16); Aspartate Amino Transferase 28 U/L (0-34); BUN/Creatinine Ratio 24 Ratio (12-20); Bilirubin,Total 5.3 mg/dL (0.3-1.2); Blood Urea Nitrogen 24 mg/dL (9-23); Calcium 11.5 mg/dL (8.3-10.6); Calcium (Corrected) 11.5 mg/dL (8.5-10.1); Carbon Dioxide 31.8 mMol/L (20.0-31.0); Chloride 109 mMol/L (98-107); Creatinine (Component) 1.0 mg/dL (0.6-1.3); Estimated Creatinine Clearance 57.6 mL/min (>60); Globulin 1.9 gm/dL (2.3-3.5); Glucose 230 mg/dL (74-106); Magnesium 2.6 mg/dL (1.6-2.6); Osmolality,Calculated 314 (275-295); Phosphorous 2.8 mg/dL (2.4-5.1); Potassium 4.2 mMol/L (3.4-5.1); Sodium 153 mMol/L (136-145); Total Protein 6.6 gm/dL (5.7-8.2); eGFR > 60 See Note
[2024-12-05] MEDS: DEXTROSE 5%-WATER 1,000 ML 100 ML IV (07:58)
--- NOTE | 2024-12-05 08:36 | ESPR_ITS ---
Documentation for date of: 12/05/24 Subjective Subjective Interval history: Ms. Knight is a 54-year-old lady with a history of decompensated alcoholic cirrhosis (on transplant list), recurrent hepatic encephalopathy, upper GI bleed secondary to varices/banding, chronic pain syndrome, and type 2 diabetes mellitus. She was initially followed by nephrology earlier this admission for LILY and hyperkalemia which improved after albumin and supportive management. She was later reconsulted for severe hyperammonemia (ammonia 339) and metabolic acidosis requiring initiation of dialysis. 11/29/2024: Patient seen and evaluated in ICU. Intubated, not sedated, RASS -3, withdrawing to pain but no eye tracking. Vitals stable. Liz in place with low urine output. Team reports progressive somnolence and poor mentation over the past 48 hours. Ammonia 339 despite lactulose and rifaximin. Hepatitis panel pending. Plan to initiate dialysis today for ammonia clearance and metabolic control. Labs: WBC 2.3, hemoglobin 7.9, hematocrit 23.5, platelets 12, sodium 153, potassium 3.3, chloride 108, bicarbonate 20, anion gap 24, BUN 45, creatinine 1.6, calcium 10.5, magnesium 2.7, phosphorus 3.3, total bilirubin 7.9, AST 24, ALT 15, alkaline phosphatase 41, albumin 5.7, PT 20, INR 2.0, PTT 45, fibrinogen 145, pH 7.33, pCO2 38, HCO3 20, ammonia 339, osmolality 320, glucose 111, hepatitis panel pending. 11/30/2024 patient currently seen in ICU. Intubated, on ventilator. Isolation. Labs and medications reviewed. Ammonia level significantly elevated above heart initiate dialysis yesterday. Currently on conventional hemodialysis as ammonia is dialyzable. 12/02/2024: Patient seen today in ICU. She is now following simple commands and showing improvement in mentation compared to prior days. Urine output overnight was 800 cc. She remains hemodynamically stable and afebrile. ICU team discussed possible dialysis catheter removal, but decision made to keep the line for one more day and reevaluate tomorrow. Labs: Hemoglobin 8.9 (from 9.7 yesterday), hematocrit 23.5, platelets 6 (from 11 yesterday), PT 23, INR 2.4, PTT 53.4, sodium 145, potassium 3.7, chloride 105, bicarbonate 26.7, creatinine 1.4 (from 1.3 yesterday), GFR 45, calcium 9.9, phosphorus 3.4, magnesium 2.8, total bilirubin 8.4, ammonia 98 (down from 161 yesterday), troponin 45. 12/03/2024: Patient seen today in ICU. She remains intubated but is now following commands and currently on pressure support mode for ventilator weaning in anticipation of possible extubation. Urine output has improved significantly 2 L in the past 24 hours. No hemodialysis since ammonia and renal function have improved. Decision made to remove dialysis catheter today. Sodium noted to be elevated at 150; will suggest starting D5 infusion for gentle free water replacement. Labs: WBC 1.7, Hgb 7.8, Hct 22.6, Plt 16, Na 150, K 3.3, Cl 107, CO2 30, Cr 1.3, Ca 11.1, Mg 2.7, Phos 2.8. 12/04/2024: Patient seen today in ICU but downgraded to primary floor team. She is extubated, alert, and following commands. Reports fatigue but denies acute distress. Continues to make urine with good output. No further dialysis required. Dialysis catheter was removed yesterday. Hemodynamically stable. Labs WBC 1.6, Hgb 7.7, Hct 22.9, Plt 9 (receiving platelet transfusion), Na 152, K 4.3, Cl 110, CO2 30, BUN 25, Cr 1.0, Ca 11.2, Phos 2.9, Mg 2.7. 12/05/2024: Patient seen today in the hospital, still feeling weak but continues to make urine. Blood pressure stable at 115/73 with a pulse of 98. She is being monitored closely for her electrolyte imbalances and blood sugar levels. Sodium remains elevated at 153; will start free water flushes via NG tube at 110 mL, and D5 W has been started for sodium management. Insulin degludec dose increased from 20 to 24 units due to elevated blood sugars of 230. Awaiting patient transfer to another facility. Labs: WBC 1.9, Hgb 6.7, Hct 20.8, Plt 17, PT 18.2, INR 1.8, PTT 33.8, Na 153, K 4.2, Cl 109, CO2 31.8, BUN 24, Cr 1.0, GFR >60, Ca 11.5, Phos 2.8, Mg 2.6. Review of Systems: Negative for fever, chills, or shortness of breath. Positive for weakness and mild fatigue. Exam Vital Signs Temp Pulse Resp BP Pulse Ox O2 Del Method O2 Flow Rate 98.3 F 96 21 H 115/73 100 Nasal Cannula 2 12/05/24 08:33 12/05/24 08:33 12/05/24 08:33 12/05/24 08:33 12/05/24 08:33 12/04/24 16:01 12/05/24 08:33 FiO2 35 12/03/24 08:00 Narrative Exam General: Extubated, awake, alert, following commands. HEENT: Scleral icterus present, mucous membranes moist. Neck: Supple, no JVD. Cardiovascular: Regular rhythm, mild chest fatigue reported, no murmurs. Respiratory: Clear breath sounds bilaterally, no distress. Abdomen extremities: Soft, mildly distended, non-tender, ascites present. Extremities: No edema. Skin: Jaundiced, no new bruising or rash. Neurological: Awake, alert, follows commands, oriented. Objective Labs 12/05/24 04:46 12/05/24 04:46 Labs: Laboratory Results - last 24 hr 12/03/24 12/04/24 12/05/24 11:36 04:31 04:46 WBC 1.9 L RBC 2.21 L Hgb 6.7 L* Hct 20.8 L* MCV 94 MCH 30.3 MCHC 32.2 RDW Std Deviation 65.8 H Plt Count 17 L* D Neut % (Auto) 50 Lymph % (Auto) 28 [place] % (Auto) 17 H Eos % (Auto) 4 Baso % (Auto) 1 Neut # (Auto) 0.9 L Lymph # (Auto) 0.5 L [place] # (Auto) 0.3 Eos # (Auto) 0.1 Baso # (Auto) 0.0 Immature Gran # (Auto) 0.02 H Absolute Nucleated RBC 0.00 Immature Gran % 1 H Nucleated RBC % 0 PT 18.2 H INR 1.8 H APTT 33.8 Sodium 153 H Potassium 4.2 Chloride 109 H Carbon Dioxide 31.8 H Anion Gap 12 BUN 24 H Creatinine 1.0 Estim Creat Clear Calc 57.6 L eGFR > 60 BUN/Creatinine Ratio 24 H Glucose 230 H Calculated Osmolality 314 H Calcium 11.5 H Corrected Calcium 11.5 H Phosphorus 2.8 Magnesium 2.6 Total Bilirubin 5.3 H D AST 28 ALT 18 Alkaline Phosphatase 132 H Total Protein 6.6 Albumin 4.7 Globulin 1.9 L Albumin/Globulin Ratio 2.5 H Misc Test Result Platelets confirmed Blood Type O Positive Antibody Screen NEGATIVE Crossmatch See Detail Blood Bank Wristband ID Yes Blood Bank Comment PLATP Ready ABG Interpretation ABG results: 11/27/24 11/27/24 11/28/24 14:52 21:14 04:57 ABG pH 7.31 L 7.34 L 7.36 ABG pCO2 44 39 34 ABG pO2 91 154 H D 168 H ABG HCO3 22 21 19 L ABG O2 Saturation 98 100 H 100 H ABG Base Excess -4 L -5 L -6 L 11/29/24 12/03/24 12/03/24 04:05 00:26 04:31 ABG pH 7.33 L 7.46 H 7.41 ABG pCO2 38 43 50 H ABG pO2 127 H D 97 113 H ABG HCO3 20 30 H 31 H ABG O2 Saturation 99 H 99 H 99 H ABG Base Excess -5 L 6 H 6 H Quality Measures Quality Measures VTE prophylaxis Assessment & Plan Assessment Current Active Medications: Generic Name Dose Route Start Last Admin Trade Name Freq PRN Reason Stop Dose Admin Albuterol 2.5 mg 12/02/24 11:04 Albuterol Rt 2.5 Mg/0.5 Ml Nebu INH 01/01/25 14:59 Q4HRRT PRN RESPIRATORY DISTRESS Cyanocobalamin 1,000 mcg 11/27/24 09:00 12/04/24 08:54 Cyanocobalamin 500 Mcg Tablet NG 12/27/24 08:59 1,000 mcg QDAY CELINA Administration Dextrose 25 ml 11/22/24 09:17 Dextrose 50%-Water Inj 50 Ml Syringe IV 12/22/24 09:16 Q15MIN PRN BG 50-70 responsive npo pt Dextrose 50 ml 11/22/24 09:17 Dextrose 50%-Water Inj 50 Ml Syringe IV 12/22/24 09:16 Q15MIN PRN BG <50 OR BG <70 & pt unresponsive Folic Acid 2.5 mg 11/27/24 09:00 12/04/24 08:55 Folic Acid 1 Mg Tablet NG 12/27/24 08:59 2.5 mg QDAY CELINA Administration Furosemide 40 mg 12/05/24 08:33 Furosemide Inj 10 Mg/Ml 4ml Vial IVP 12/05/24 08:34 X1 ONE Glucagon 1 mg 11/22/24 09:17 Glucagon Inj 1 Mg Vial IM Q15MIN PRN BG <70, and no IV access Heparin Sodium (Porcine) 3,000 unit 11/29/24 14:28 12/01/24 11:31 Heparin Sod Inj 1000 Unit/Ml Vial 10 Ml INDWELLCAT 12/13/24 14:27 3,000 unit PRN PRN Administration DIALYSIS Fluconazole 200 mg in 100 mls @ 100 mls/hr 11/29/24 09:00 12/04/24 09:00 Diflucan/Ns Ivpb IV 12/07/24 23:55 100 mls/hr QDAY CELINA Administration Meropenem 2,000 mg/ Sodium 100 mls @ 100 mls/hr 12/03/24 20:00 12/04/24 20:07 Chloride IV 12/07/24 18:44 100 mls/hr Q12HR CELINA Administration Dextrose 1,000 mls @ 100 mls/hr 12/05/24 08:00 12/05/24 07:58 D5w IV 01/04/25 07:59 100 mls/hr .Q10H CELINA Administration Insulin Degludec 24 unit 12/05/24 09:00 Insulin Degludec 5 Unit/0.05 Ml (Per 5 Units) SC 01/04/25 08:59 QDAY CELINA Insulin Human Lispro 0 unit 12/02/24 17:27 12/05/24 05:24 Insulin Lispro (Admelog) 1 Unit/0.01 Ml Unit SC 12/28/24 06:14 3 unit Q6HR CELINA Administration Protocol Lactobacillus Rhamnosus 2 cap 11/28/24 13:45 12/04/24 11:58 Lactobacillus Rhamnosus 1 Cap PO 12/28/24 13:44 2 cap WLUNCH CELINA Administration Lactulose 20 gm 11/30/24 12:00 12/05/24 05:24 Lactulose Syrup 20 Gm/30 Ml Udc PO 12/30/24 11:59 20 gm QID CELINA Administration Protocol Ondansetron HCl 4 mg 11/20/24 10:43 11/26/24 21:26 Ondansetron Inj 2 Mg/Ml Inj 2 Ml IVP 12/20/24 10:42 4 mg Q6HR PRN Administration NAUSEA OR VOMITING Protocol Pantoprazole Sodium 40 mg 11/27/24 09:00 12/04/24 20:08 Pantoprazole Inj 40 Mg Vial IV 12/27/24 08:59 40 mg BID CELINA Administration Rifaximin 550 mg 11/27/24 09:00 12/04/24 20:08 Rifaximin 550 Mg Tablet NG 12/14/24 08:59 550 mg BID CELINA Administration Sodium Chloride 3 ml 12/02/24 11:04 Sodium Chloride Rt Karis 0.9% 3 Ml Nebu INH 01/01/25 11:03 PRN PRN SOLN Spironolactone 50 mg 11/16/24 10:15 11/18/24 08:50 Spironolactone 25 Mg Tablet PO 12/16/24 10:14 50 mg On Hold: 11/19/24 06:52 DAILY CELINA Administration Thiamine HCl 100 mg 11/28/24 09:00 12/04/24 08:56 Thiamine Inj 100 Mg/Ml Vial 2 Ml IVP 12/28/24 08:59 100 mg QDAY CELINA Administration Plan 54-year-old female with decompensated cirrhosis, hepatic encephalopathy, and hypernatremia, currently extubated, following commands, and improving with stable renal function and urine output. # Hypernatremia Sodium 153, corrected sodium 155. Free water deficit is 4 L, which would normally require 167 mL/hour for 24-hour replacement. However, we are starting at 110 mL/hour to gradually correct hypernatremia (Na 153) and avoid rapid shifts that could cause cerebral edema. Plan: * Restart free water flushes via NG tube at 110 mL * Start D5W at 100 mL for gradual correction * Monitor sodium levels closely #Acute Kidney Injury (LILY), resolved Multifactorial (hepatorenal vs ATN) Creatinine 1.0 (stable), urine output continues at good levels. Plan: * No dialysis indicated, renal function stable * Continue to monitor electrolytes, daily BMP * Maintain fluid balance, restart free water flushes via NG tube at 110 mL * Continue renal dosing of medications and avoid nephrotoxins #Diabetes Mellitus (T2DM) Blood glucose 230, increased insulin needs. Plan: * Increase degludec insulin to 24 units (from 20) * Monitor blood glucose levels closely #Severe Hyperammonemia (Resolved) Last ammonia level decreased to 98 (from 161) after prior dialysis and medical therapy. Plan: * No further dialysis required today as levels continue to decline Other active problems: #Left base pneumonia, likely aspiration #Acute decompensated liver failure #Esophageal varices #Tube feedings #Hypercalcemia #Hypomagnesemia #Pancytopenia #Anemia #VRE, treated completed #Aspiration pneumonia Management per primary team ----- Plan discussed with attending physician Dr. Yenny Raya MD PGY-1 Internal Medicine Attending Provider Attestation/Addendum Patient seen and examined with resident physician Dr. Raya. Note reviewed, agree with findings and recommendations. Patient will be transferred for higher level of care regarding liver transplant. Off dialysis catheter, dialysis. MELD score is very high.
[2024-12-05] MEDS: THIAMINE INJ 100 MG/ML VIAL 2 ML IVP (08:43)
[2024-12-05] MEDS: FLUCONAZOLE/NS 200 MG IVPB 200 MG/100 ML BAG 100 MG IV (08:43)
[2024-12-05] MEDS: MEROPENEM INJ 2,000 MG in SODIUM CHLORIDE 0.9% 100 ML 100 MG IV (08:43)
[2024-12-05] MEDS: INSULIN DEGLUDEC 5 UNIT/0.05 ML (PER 5 UNITS) 24 UNIT SC (08:44)
[2024-12-05] MEDS: FOLIC ACID 1 MG TABLET 2.5 MG NG (08:44)
[2024-12-05] MEDS: FUROSEMIDE INJ 10 MG/ML 4ML VIAL 40 MG IVP (09:04)
--- NOTE | 2024-12-05 09:33 | PC.CM ---
Addendum entered by Kacey Mclean RN 12/05/24 15:15: I called [facility] and gave them the corn picker time and the name of ambulance and their phone number. Addendum entered by Kacey Mclean RN 12/05/24 15:11: I received a call from Shelli transfer nurse at [facility]. Patient has been accepted to [facility] [address] [facility]. [place] with Dr. Ashutosh Andrews. Patient will go to [facility] room 91. the number to call and give report is [phone]. [place] will corn picker patient at 1700. They will come sooner if they have an available unit. I will report to bed side nurse and I will give them the completed packet with CD. Original Note: I spoke to Jeniffer with the transfer center at [facility]. She states we are still waiting for a bed. Patient is still on bed list.
--- NOTE | 2024-12-05 11:58 | ESPR_ITS ---
<Statement entered by Zach Plata MD - 12/05/24 16:04> I have reviewed the note and agree with the resident's assessment & plan with exceptions as below. I have personally reviewed labs, imaging, home meds/prior records, examined the patient, formulated and discussed management plan with my attending Patient was seen and examined at bedside this morning. No acute overnight events. No acute overnight events. Patient is still very weak, but otherwise improving. Patient sodium continues to uptrend therefore we will start D5W at 100 cc/h and will also give Lasix 40 mg x 1 due to swelling. Degludec to go up to 24 units daily due to blood sugar still being labile. Patient was still pending [facility] bed this morning. Zach Plata PGY2 Disclaimer: Even though this this note was dictated by speech recognition and even though it was carefully revised there may still be minor errors in burrito maker due to voice recognition software. Documentation for date of: 12/05/24 Subjective Subjective Interval history: No acute overnight events. Patient seen examined at bedside in ICU. Alert oriented x 3 medication patient has very weak and unable to speak in full sentences. Endorses abdominal pain and generalized weakness. Vitals and labs reviewed. SBP 110s to 120s. Heart rate high 80s to low 90s. Saturating 98% on 2 L. WBC 1.9, hemoglobin 6.7 transfusing 2 units of PRBC and 1 FFP, platelets 17, INR 1.8, PT 18.2, sodium 153, bicarb 31, glucose 230. Calcium 11.5 T bilirubin 5.3 MELD score 33. Continue antibiotics and hepatic cephalopathy treatment. Started free water flushes at 110 cc an hour and D5W at 100 cc an hour per nephrology. Lasix 40 mg x 1 given due to swelling. Increase degludec to 24u for glucose 200s. Ordered repeat UCx. Pending [facility] bed availability. Exam Vital Signs Temp Pulse Resp BP Pulse Ox O2 Del Method O2 Flow Rate 98.0 F 92 15 113/71 100 Nasal Cannula 2 12/05/24 11:46 12/05/24 11:49 12/05/24 11:49 12/05/24 11:49 12/05/24 11:49 12/04/24 16:01 12/05/24 11:46 FiO2 35 12/03/24 08:00 Narrative Exam GENERAL: Alert and oriented x3, no acute distress, following commands, jaundiced HEENT: NC/AT, mucous membranes moist, bilateral sclera icteric CARDIOVASCULAR: regular rate and rhythm, S1/S2 present, 3/6 systolic murmur heard best at left 2nd intercostal space PULMONARY: clear to auscultation bilaterally, no rales/rhonchi/wheezes ABDOMINAL: diffuse tenderness to palpation, no rebound/guarding, bowel sounds hyperactive EXTREMITIES: no peripheral edema SKIN: warm and dry, intact, no rashes, significant bruising BUE and BUE swelling NEURO: CN II-XII grossly intact, no focal deficits, alert, following commands, + 2/5 strength of BUE and BLE Objective Labs 12/05/24 04:46 12/05/24 04:46 Labs: Laboratory Results - last 24 hr 12/03/24 12/05/24 11:36 04:46 WBC 1.9 L RBC 2.21 L Hgb 6.7 L* Hct 20.8 L* MCV 94 MCH 30.3 MCHC 32.2 RDW Std Deviation 65.8 H Plt Count 17 L* D Neut % (Auto) 50 Lymph % (Auto) 28 [place] % (Auto) 17 H Eos % (Auto) 4 Baso % (Auto) 1 Neut # (Auto) 0.9 L Lymph # (Auto) 0.5 L [place] # (Auto) 0.3 Eos # (Auto) 0.1 Baso # (Auto) 0.0 Immature Gran # (Auto) 0.02 H Absolute Nucleated RBC 0.00 Immature Gran % 1 H Nucleated RBC % 0 PT 18.2 H INR 1.8 H APTT 33.8 Sodium 153 H Potassium 4.2 Chloride 109 H Carbon Dioxide 31.8 H Anion Gap 12 BUN 24 H Creatinine 1.0 Estim Creat Clear Calc 57.6 L eGFR > 60 BUN/Creatinine Ratio 24 H Glucose 230 H Calculated Osmolality 314 H Calcium 11.5 H Corrected Calcium 11.5 H Phosphorus 2.8 Magnesium 2.6 Total Bilirubin 5.3 H D AST 28 ALT 18 Alkaline Phosphatase 132 H Total Protein 6.6 Albumin 4.7 Globulin 1.9 L Albumin/Globulin Ratio 2.5 H Blood Type O Positive Antibody Screen NEGATIVE Crossmatch See Detail Blood Bank Wristband ID Yes Blood Bank Comment FFP Ready ABG Interpretation ABG results: 11/27/24 11/27/24 11/28/24 14:52 21:14 04:57 ABG pH 7.31 L 7.34 L 7.36 ABG pCO2 44 39 34 ABG pO2 91 154 H D 168 H ABG HCO3 22 21 19 L ABG O2 Saturation 98 100 H 100 H ABG Base Excess -4 L -5 L -6 L 11/29/24 12/03/24 12/03/24 04:05 00:26 04:31 ABG pH 7.33 L 7.46 H 7.41 ABG pCO2 38 43 50 H ABG pO2 127 H D 97 113 H ABG HCO3 20 30 H 31 H ABG O2 Saturation 99 H 99 H 99 H ABG Base Excess -5 L 6 H 6 H Quality Measures Quality Measures VTE prophylaxis Assessment & Plan Assessment Current Active Medications: Generic Name Dose Route Start Last Admin Trade Name Freq PRN Reason Stop Dose Admin Albuterol 2.5 mg 12/02/24 11:04 Albuterol Rt 2.5 Mg/0.5 Ml Nebu INH 01/01/25 14:59 Q4HRRT PRN RESPIRATORY DISTRESS Cyanocobalamin 1,000 mcg 11/27/24 09:00 12/05/24 08:44 Cyanocobalamin 500 Mcg Tablet NG 12/27/24 08:59 1,000 mcg QDAY CELINA Administration Dextrose 25 ml 11/22/24 09:17 Dextrose 50%-Water Inj 50 Ml Syringe IV 12/22/24 09:16 Q15MIN PRN BG 50-70 responsive npo pt Dextrose 50 ml 11/22/24 09:17 Dextrose 50%-Water Inj 50 Ml Syringe IV 12/22/24 09:16 Q15MIN PRN BG <50 OR BG <70 & pt unresponsive Folic Acid 2.5 mg 11/27/24 09:00 12/05/24 08:44 Folic Acid 1 Mg Tablet NG 12/27/24 08:59 2.5 mg QDAY CELINA Administration Glucagon 1 mg 11/22/24 09:17 Glucagon Inj 1 Mg Vial IM Q15MIN PRN BG <70, and no IV access Heparin Sodium (Porcine) 3,000 unit 11/29/24 14:28 12/01/24 11:31 Heparin Sod Inj 1000 Unit/Ml Vial 10 Ml INDWELLCAT 12/13/24 14:27 3,000 unit PRN PRN Administration DIALYSIS Fluconazole 200 mg in 100 mls @ 100 mls/hr 11/29/24 09:00 12/05/24 08:43 Diflucan/Ns Ivpb IV 12/07/24 23:55 100 mls/hr QDAY CELINA Administration Meropenem 2,000 mg/ Sodium 100 mls @ 100 mls/hr 12/03/24 20:00 12/05/24 08:43 Chloride IV 12/07/24 18:44 100 mls/hr Q12HR CELINA Administration Dextrose 1,000 mls @ 100 mls/hr 12/05/24 08:00 12/05/24 07:58 D5w IV 01/04/25 07:59 100 mls/hr .Q10H CELINA Administration Insulin Degludec 24 unit 12/05/24 09:00 12/05/24 08:44 Insulin Degludec 5 Unit/0.05 Ml (Per 5 Units) SC 01/04/25 08:59 24 unit QDAY CELINA Administration Insulin Human Lispro 0 unit 12/02/24 17:27 12/05/24 05:24 Insulin Lispro (Admelog) 1 Unit/0.01 Ml Unit SC 12/28/24 06:14 3 unit Q6HR CELINA Administration Protocol Lactobacillus Rhamnosus 2 cap 11/28/24 13:45 12/04/24 11:58 Lactobacillus Rhamnosus 1 Cap PO 12/28/24 13:44 2 cap WLUNCH CELINA Administration Lactulose 20 gm 11/30/24 12:00 12/05/24 05:24 Lactulose Syrup 20 Gm/30 Ml Udc PO 12/30/24 11:59 20 gm QID CELINA Administration Protocol Ondansetron HCl 4 mg 11/20/24 10:43 11/26/24 21:26 Ondansetron Inj 2 Mg/Ml Inj 2 Ml IVP 12/20/24 10:42 4 mg Q6HR PRN Administration NAUSEA OR VOMITING Protocol Pantoprazole Sodium 40 mg 11/27/24 09:00 12/05/24 08:43 Pantoprazole Inj 40 Mg Vial IV 12/27/24 08:59 40 mg BID CELINA Administration Rifaximin 550 mg 11/27/24 09:00 12/05/24 08:44 Rifaximin 550 Mg Tablet NG 12/14/24 08:59 550 mg BID CELINA Administration Sodium Chloride 3 ml 12/02/24 11:04 Sodium Chloride Rt Karis 0.9% 3 Ml Nebu INH 01/01/25 11:03 PRN PRN SOLN Spironolactone 50 mg 11/16/24 10:15 11/18/24 08:50 Spironolactone 25 Mg Tablet PO 12/16/24 10:14 50 mg On Hold: 11/19/24 06:52 DAILY CELINA Administration Thiamine HCl 100 mg 11/28/24 09:00 12/05/24 08:43 Thiamine Inj 100 Mg/Ml Vial 2 Ml IVP 12/28/24 08:59 100 mg QDAY CELINA Administration Plan Elzbieta Knight 54F with PMHx of decompensated alcoholic cirrhosis, multiple admissions for hepatic encephalopathy, prior variceal bleeding s/p banding, chronic pain, NIDDM2 presented to [facility] 11/13 for altered mental status, weakness and 2 episodes of hematemesis admitted for hepatic encephalopathy likely secondary to decompensated alcoholic cirrhosis, found to have LILY, later developing leukopenia, upgraded to ICU on 11/27 for intubation due to inability to protect airway. Downgraded to floors 12/03 for stable transfer. #Fulminant Liver Failure i/s/o End-Stage Liver Disease 2/2 Alcoholic Liver Cirrhosis #Hepatic encephalopathy, improving #Pancytopenia 2/2 likely cirrhosis and side effect of linezolid (agranulocytosis) #Coagulopathy/ DIC Patient has history of ESLD and hepatic encephalopathy with frequent hospitalizations. Per Mother, patient was diagnosed around September 2023 and this is when she stopped completely drinking alcohol as well. Initial 11/13 ammonia 153, treated with lactulose and rifaximin. During hospital stay, patient has acutely decompensated, with worsening coagulopathy, hepatic encephalopathy, pancytopenia with MELD-Na 40 and Maddrey 49.3. Patient has coagulopathy due to cirrhosis. INR and PTT undetectably high. Noted to have large bruises BUE. Received vitamin K and FFP. Additional platelet and FFP given 12/02, and cryoprecipitate. On 12/04, 1u platelets ordered. Totals transfused this admission: 5u pRBC, 4 FFP, 5 platelets, 11 cryoprecipitate On 11/27 patient developed worsening encephalopathy, GCS 7, repeat ammonia 143 , lactulose had been down titrated due to loose stools. Patient subsequently intubated for airway protection. EEG consistent with acute encephalopathy. On 12/01: Head CT showed no cerebral edema, no stroke; Dialysis for ammonia elevation of 339, decreasing ammonia levels. On 12/03 mentation improved and patient extubated and pressors weaned off. Potential transfer to [facility] vs [place], likely former due to insurance authorization. Today, MELD 33 Plan; - Broad spectrum abx per [facility], fluconazole 200 mg IV qd , Meropenem 2,000 mg IV q12hr (11/29- - Lactulose 20 mg NG QID and rifamixin 550 mg BID - Rectal tube in place, draining - Continuing to treat hepatic encephalopathy and coagulopathy - Avoid hepatically metabolized medications when appropriate - Monitor for signs of blood loss CTM PT/INR - Transfuse to keep PLT >10k unless invasive procedure, 1u platelets today - PT ordered: PT daily #Klebsiella oxytoca, ESBL and huong dubliniensis PNA #Acute hypoxic respiratory failure, resolved #Mechanical Ventilation 2/2 airway support (i/s/o improving hepatic encephalopathy), extubated 12/03 On ICU upgrade on 12/03, patient intubated due to not being able to protect airway with GCS 7. Likely due to aspiration in setting of decreased GCS CXR on 11/27 showed L base consolidation consistent with pneumonia, not seen on previous CXR (11/26).. Patient intubated for airway protection. Blood and sputum cultures- ESBL Klebsiella oxytoca in sputum, BCx NGTD. ET gram stain showed 1+ mixed thad, occasional budding yeast, fungal elements, 2+ wbcs; ET culture ESBL klebsiella oxytoca and huong dubliniensis Plan: - Broad spectrum abx per [facility] as above #Hematemesis #Gastritis with recent mucusal bleeding #Grade I non-bleeding esophageal varicies at lower third of esophagus #Hx of Grade III esophageal varicies s/p banding 06/13/24 Patient history of varices requiring banding. EGD 11/14/24 showed garde 1 varices, mucosal oozing. Plan: - GI consulted, appreciate recs - Octreotide drip 5-day course completed - Protonix IV 40mg BID #Tube feedings Patient started on tube feeds due to AMS, inability to eat. Plan: - Dietary consulted, appreciate recommendation: Glucernia 1.2 at 60 mL/hr x24h, prostat 30 mL BID #LILY, s/p temporary dialysis, resolved #Hepatorenal syndrome #HAGMA (resolved) #UTI VRE, treatment completed Patient presented with significant LILY, creatinine 2.4 compared to baseline 0.9. Initially managed with albumin and midodrine however LILY returned likely 2/2 increasing hyperammonemia, in which patient received temporary dialysis. Completed 7 day course of linezolid (11/18-11/25) per ID. Ddx: Hepatorenal syndrome, ATN, decreased intravascular volume, lactic acidosis. Patient blood pressure and renal function improved with albumin, octreotide, and midodrine. Kidney function has since declined again, despite serum albumin levels elevated to 6.2. Potential ATN due to inability to hepatically metabolize potential nephrotoxins. Received dialysis 11/29, 11/30, 12/01. TDC removed 12/03. Plan: - Strict I's and O's - Renally dose medication and avoid nephrotoxins - F/u repeat UCx #Electrolyte imbalances #Hypercalcemia #Hypermagnesemia #Hypernatremia 11/29: Ca 11.0 (11.2), Mag 2.7 (2.8), Na 153 (150). Sodium being elevated may help possible cerebral edema. 12/03 Na 150 (145), Mag 2.7 (2.8), Ca 11.1 (9.9) likely due to volume loss from lactulose, dehydration Free water deficit calculated at 3.2 L. Likely due to lactulose and ensuing BM's. Plan: - Started free water flushes 59 cc/hr for 24 hrs to get 1.4 L for 24 hrs - Recheck and replete electrolytes as needed #T2DM Patient has history of T2DM. A1c 6.0 as of 09/25/24. Plan: - Degludac 24u - SSI Hospital management: Lines: PIV Diet: Glucerna 1.2 nina Bowel: lactulose GI prophylaxis: IV pantoprazole 40 mg BID DVT prophylaxis: SCDs Disposition: tele, pending transfer CODE STATUS: FULL CODE Plan of care discussed with attending Dr. Sosa, and PGY-2 Dr. Tee. Ekaterina Quintero, DO PGY-1 Internal Medicine Attending Provider Attestation/Addendum I have seen and examined the patient. I was physically present for the son portions of the services provided including history, physical exam, diagnosis, treatment plans and orders. I agree with assessment and plan of care as documented by residents. Patient seen and examined at bedside this morning. Continues to be sleepy but wakes up on calling and is able to answer simple questions and follow commands. Continues to be very frail and weak, has tenderness all over her body. Continues to have edema over her limbs. Has been having good stool output, continues to be on rectal tube. Continues to be on lactulose and rifaximin, IV meropenem and fluconazole as recommended by [facility] hepatology. Vital signs are stable, saturating well on 2 L nasal cannula. Noted to have uptrending sodium, 153 today from 152 yesterday, discussed with nephrology, we will continue with free water flushes at 110 cc/h and add 100 cc/h of D5W, appreciate recommendations. Also noted to have hemoglobin of 6.7, PT/INR remain elevated, 18.2/1.8, we will transfuse with 2 units of PRBC and 1 unit FFP. Patient has been accepted at [facility] for transfer, pending bed availability. Even though this this note was carefully revised there may still be minor errors in burrito maker due to voice recognition software. Godfrey Sosa MD
[2024-12-05] MEDS: LACTOBACILLUS RHAMNOSUS 1 CAP 2 CAP PO (12:37)
--- NOTE | 2024-12-05 14:09 | ESDS_ITS ---
<Statement entered by Zach Plata MD - 12/05/24 16:11> I have reviewed the note and agree with the resident's assessment & plan with exceptions as below. I have personally reviewed labs, imaging, home meds/prior records, examined the patient, formulated and discussed management plan with my attending Patient was seen and examined at bedside this morning. No acute overnight events. Patient did have a prolonged hospital stay with visit to the ICU given deterioration. Patient initially on admission was started on hepatic encephalopathy regimen with lactulose along with rifaximin and showed improvement in mentation, but her kidney function was impaired at this time therefore started midodrine along with albumin and octreotide. Patient's kidney function improved with the above treatment. On 11/15/2024 patient also underwent EGD and was found to have esophageal varices with erythematous mucosa in the stomach lining. Patient was also found to have VRE in the urine therefore he was treated with linezolid and completed the course of the hospital stay. On 11/27/2024 patient's mentation deteriorated and GCS was around 7 therefore decision was made to upgrade the patient to the ICU for intubation. During the ICU stay patient received increased doses of lactulose and was found to have elevated ammonia levels of 143 and had a rectal tube in place. During the ICU visit patient required hemodialysis to clear ammonia levels. Patient also required vasopressors during the ICU stay and was weaned off them successfully. Patient's mentation improved and she was successfully extubated on 12/03/2024 before being transferred back to the medical floors. Throughout the hospital stay patient required multiple transfusions of PRBCs, 6 FFP, and 5 5 platelets as well as 11 cryoprecipitate. Patient will be transferred to tertiary care center for evaluation of liver transplant. Zach Plata PGY2 Disclaimer: Even though this this note was dictated by speech recognition and even though it was carefully revised there may still be minor errors in hot baller due to voice recognition software. Planned Discharge Date 12/05/24 DS: Providers Provider Date of admission: 11/13/24 15:24 Primary care physician: Physician No Primary/Family Admitting Provider: Stephen Ahuja MD Attending Provider on Admission: Godfrey Sosa MD Consults: 11/13/24 16:22 Consult to Gastroenterology Routine Comment: Consulting Provider: Brenda Culp 11/14/24 10:12 Consult to Nephrology Urgent Comment: Consulting Provider: Justa Ramon 11/17/24 10:02 Referral Physical Therapy Routine Comment: Physician Instructions: 11/18/24 06:24 Referral Wound Care Routine Comment: sheering vs stage 2 right buttock 11/18/24 06:25 Referral Registered Dietitian Routine Comment: sheering vs stage 2 right buttock 11/18/24 08:11 Consult to Infectious Diseases Routine Comment: Consulting Provider: Oj Castellanos 11/22/24 09:40 Referral - Supervising Chef Routine Service Needed for Transfer: hepatology Addl Comments:: liver transplant candidate 12/03/24 19:00 Referral Physical Therapy Routine Comment: Physician Instructions: 12/03/24 19:01 Referral Occupational Therapy Routine Comment: Attending Provider on DC: Godfrey Sosa MD Discharging Provider: Godfrey Sosa MD DS: Diagnosis Problem List Completed Was Problem List Reviewed/Reconciled?: Yes Hospital Course Hospital Course Hospital course: Elzbieta Knight is a 54F pmhx of significant for decompensated alcoholic cirrhosis, multiple admissions for hepatic encephalopathy, hx of prior variceal bleeding s/p banding, chronic pain, NIDDM2 presented to [facility] 11/13 for altered mental status, weakness and 2 episodes of hematemesis, admitted for hepatic encephalopathy likely secondary to decompensated alcoholic cirrhosis, found to have LILY, later developing leukopenia, anemia and severe thrombocytpoenia. Course complicated by VRE UTI. Patient presented with altered mental status for the past 2 days prior to admission with generalized weakness and severe asterixis. Patient has been seen multiple times [facility] for hepatic encephalopathy despite being compliant with medication. On admission ammonia level was 153, BUN 30, creatinine 2.4, troponin 0.031, platelets 32 then decreased to 28. Patient was treated with rifamixin 550 mg BID, increased lactulose from home 10 g 3 times daily to 20 g 3 times daily, albumin and midodrine 10 mg TID with improvement in encephalopathy. On 11/15/2024, patient underwent EGD which showed grade 1 esophageal varices found in the lower third of esophagus, did few severely erythematous mucosa with stigmata of recent bleeding found entire stomach, and pulsating of blood due to hypertensive portal gastropathy with normal duodenum. No interventions performed during EGD and patient was placed on octreotide drip for 5 days as well as pantoprazole and Hgb largely remained stable. During admission, nephrology was consulted and patient was diagnosed with hepatorenal syndrome as patient was admitted with LILY which resolved with albumin and midodrine. Albumin was initially discontinued, however LILY reoccurred, and albumin restarted with subsequent improvement of creatinine. Of note, urine culture also grew VRE as patient does have a history of VRE UTIs. Per ID, patient was started on linezolid 600 mg BID for total of 7 days from 11/18 to 11/25. Patient developed worsening mentation on 11/27. Repeat ammonia level increased to 143, bowel movements decreased. ICU team consulted due to worsening mentation to evaluate airway protection. Decision was made to intubate patient for airway protection. Intubation completed without incident, R IJ placed for vascular access without incident. Patient was sedated with IVP Versed as needed, lactulose dosage was increased to 60 gm TID. Patient showed improvement in responsiveness, had multiple bowel movements overnight. Hemodynamically stable, tolerating ventilator well. Receiving 1 unit platelets for coagulopathy and thrombocytopenia, hemoglobin remains stable. Zosyn initiated due to CXR findings indicating L base PNA, likely aspiration pneumonia in setting of worsening hepatic encephalopathy. Patient?s team was made aware by [facility] that patient will need to be off of mechanical ventilation and will need to be on specific antibiotic regimen before being accepted for transfer. Patient had a bedside ultrasound of the eye which showed mildly elevated optic nerve sheath diameter in the setting of the patient?s mentation not improving. Patient was found to have elevated ammonia levels and was initiated on temporary dialysis from 11/29-12/01. Patient?s ammonia decreased after getting hemodialysis with greatly improved mentation, currently very close to baseline mentation. Patient?s urine and bowel output started to increase, has not needed dialysis since 12/01. Patient tolerated dialysis without the need for pressors. Patient has been afebrile, hemodynamically stable and has been successfully extubated on 12/03, saturating well on 2L NC. On 12/03, patient was downgraded to telemetry. Antibiotics of fluconazole and meropenem were continued, as well as hepatic encephalopathy treatment with lactulose 20 mg QID and rifamixin 550 mg BID. Rectal tube intact and continues to drain. On 12/04, platelets were noted to be 9 and 1u platelets transfused. On 12/05, patient WBC 1.9, Hgb 6.7, and platelets 17 and sodium noted to be uptrending 153 today. Patient was transfused 2pRBC and 1u FFP, and started on free water flushes and D5W for hypernatremia. On transfer, patient is stable. Imagin/30 CXR showed mild vascular congestion, poor inspiratory effort, moderate osteopenia 11/21 Abdominal US minimal ascitic fluid 11/27 KUB showed significant stool burden. 11/27 CXR showed L base PNA, likely aspiration 11/28 Venous Doppler L Upper Extremity: Negative for DVT 11/30 EEG abnormal; suggestive of diffuse encephalopathy 12/[address] negative for hemorrhage, mass effect, midline shift; no generalized cerebral edema Discharge recommendations as per accepting facility. Hospital Diagnoses: #Fulminant Liver Failure i/s/o End-Stage Liver Disease 2/2 Alcoholic Liver Cirrhosis #Hepatic encephalopathy, improving #Pancytopenia 2/2 likely cirrhosis and side effect of linezolid (agranulocytosis) #Coagulopathy/ DIC #Klebsiella oxytoca, ESBL and huong dubliniensis PNA #Acute hypoxic respiratory failure, resolved #Mechanical Ventilation 2/2 airway support (i/s/o improving hepatic encephalopathy), extubated 12/03 #LILY, s/p temporary dialysis, resolved #Hepatorenal syndrome #HAGMA (resolved) #UTI VRE, treatment completed with linezolid #Hematemesis #Gastritis with recent mucusal bleeding #Grade I non-bleeding esophageal varicies at lower third of esophagus #Hx of Grade III esophageal varicies s/p banding 06/13/24 #Hyperammonemia #Hypoalbuminemia, resolved #Abdominal pain #Allodynia #Electrolyte imbalances #Hypercalcemia #Hypermagnesemia #Hypernatremia #Hyperkalemia #Urinary retention, resolved #Chronic pain #NIDDM2 Plan of care discussed with attending Dr. Sosa, and PGY-2 Dr. Tee. Ekaterina Quintero, DO Internal Medicine, PGY-1 Time Spent with Patient Time attestation: Total time spent providing and/or coordinating discharge services: 45 min Time spent: Greater than 30 minutes Exam Vital Signs Temp Pulse Resp BP Pulse Ox O2 Del Method O2 Flow Rate 98.3 F 99 18 115/66 100 Nasal Cannula 2 12/05/24 12:01 12/05/24 12:01 12/05/24 12:01 12/05/24 12:01 12/05/24 12:01 12/04/24 16:01 12/05/24 12:01 FiO2 35 12/03/24 08:00 Narrative Exam GENERAL: Alert and oriented x3, no acute distress, following commands, jaundiced HEENT: NC/AT, mucous membranes moist, bilateral sclera icteric CARDIOVASCULAR: regular rate and rhythm, S1/S2 present, 3/6 systolic murmur heard best at left 2nd intercostal space PULMONARY: clear to auscultation bilaterally, no rales/rhonchi/wheezes ABDOMINAL: diffuse tenderness to palpation, no rebound/guarding, bowel sounds hyperactive EXTREMITIES: no peripheral edema SKIN: warm and dry, intact, no rashes, significant bruising BUE and BUE swelling NEURO: CN II-XII grossly intact, no focal deficits, alert, following commands, +2/5 strength of BUE and BLE Discharge Plan Plan Patient Disposition: [facility] Pt Being Transferred to: [facility] Service Needed for Transfer: Gastroenterology Patient condition on transfer: Stable Prescriptions/Referrals Prescriptions/Med Rec: New linezolid 600 mg tablet 600 mg PO BID Qty: 7 0RF Continued hydrocodone-acetaminophen 5-325 mg tablet 1 tab PO Q6H MDD 4 tablets in one day PRN (Reason: pain) Qty: 60 0RF Rx Instructions: Take one tablet by mouth up to every 6 hours pantoprazole 40 mg tablet,delayed release (DR/EC) 40 mg PO QDAY 30 Days Qty: 30 2RF Rx Instructions: Take one tablet by mouth every day before food mirtazapine [Remeron] 30 mg tablet 30 mg PO QHS 30 Days Qty: 30 1RF Rx Instructions: Take one tablet by mouth at bedtime cholecalciferol (vitamin D3) 1,250 mcg (50,000 unit) tablet 1,250 mcg PO QWEEK 90 Days Qty: 13 0RF Rx Instructions: Take one tablet by mouth once a week Xifaxan 550 mg tablet 550 mg PO BID 30 Days Qty: 60 2RF Rx Instructions: Take one tablet by mouth twice a day methocarbamol 750 mg tablet 750 mg PO BID 30 Days Qty: 60 2RF Rx Instructions: Take one tablet by mouth twice a day (DME) lancets [FreeStyle Lancets] 28 gauge misc See Rx Instructions .Route Qty: 100 5RF Rx Instructions: Use TID and PRN As directed (DME) Freestyle InsuLinx Test Strips Strip See Rx Instructions .Route Qty: 100 5RF Rx Instructions: Test TID and PRN As directed (DME) lancets [Acti-Petar Lancets] 28 gauge misc See Rx Instructions .Route Qty: 100 2RF Rx Instructions: As directed (DME) Accu-Chek Idania Plus test strp Strip See Rx Instructions .Route Qty: 100 2RF Rx Instructions: As directed (DME) blood-glucose meter [FreeStyle [place] Lite] Kit See Rx Instructions .Route Qty: 1 0RF Rx Instructions: As directed furosemide 40 mg tablet 40 mg PO QAM Qty: 30 0RF midodrine 10 mg tablet 10 mg PO Q8H Changed lactulose 10 gram/15 mL solution 20 g PO TID Qty: 1200 0RF Patient Comments: TAKE 45 MLS BY MOUTH 3 TIMES A DAY Held spironolactone 50 mg tablet 50 mg PO DAILY Hold Instructions: Resume on 11/28/24. Hold until follow up with nephrology/PCP metformin 1,000 mg tablet 1,000 mg PO QDAY Hold Instructions: Resume on 11/28/24. hold until follow up with PCP Patient Comments: TAKE 1 1/2 TABLETS BY MOUTH ONCE A DAY Referrals: No Primary/Family,Physician [Primary Care Provider] Patient/Caregiver Discharge Instructions Education Materials: Hepatic Encephalopathy Print Language: Ethiopian Stand Alone Forms: [employer] Award Info., Patient Portal Info Letter Discharge Order Discharge Orders: Discharge (Routine); Ordered 12/05/24 Ordered By: Godfrey Sosa Quality Discharge Quality Measures VTE prophylaxis Attestestation MD Attestation I have seen and examined the patient. I was physically present for the son portions of the services provided including history, physical exam, diagnosis, treatment plans and orders. I agree with assessment and plan of care as documented by residents. Patient is pending transfer to [facility] for further evaluation and management of fulminant liver failure, hepatic encephalopathy, possibility of evaluation for liver transplant. Vitals are stable, saturating well on 2 L nasal cannula patient is hemodynamically stable currently for the transfer. Even though this this note was carefully revised there may still be minor errors in hot baller due to voice recognition software. Godfrey Sosa MD
[2024-12-05 14:29] LABS: Slide Review Platelets confirmed
== END 2024-12-05 16:52 | disposition short-term general hospital (02) | DRG 280 ==
LOC: SERX 13:07 → SERHOLD 15:36 → S2NX 17:11 → S2SX 11-27 18:27
PROVIDERS: Internal Medicine; Internal Medicine Critical Care Medicine; Internal Medicine Infectious Disease; Registered Nurse General Practice; Specialist; Student in an Organized Health Care Education/Training Program; Admitting Provider Student in an Organized Health Care Education/Training Program; Emergency Provider Family Medicine; Visit Provider Student in an Organized Health Care Education/Training Program
PROC: 0DJ08ZZ Inspection of Upper Intestinal Tract, Via Natural or Artificial Opening Endoscopic (ICD-10-PCS; CPT 43239; principal; 2024-11-15 19:00)
DX: K76.82 Hepatic encephalopathy (principal); K70.31 Alcoholic cirrhosis of liver with ascites; N17.9 Acute kidney failure, unspecified; Z76.82 Awaiting organ transplant status; E11.9 Type 2 diabetes mellitus without complications; R64 Cachexia; E88.09 Other disorders of plasma-protein metabolism, not elsewhere classified; Z68.28 Body mass index [BMI] 28.0-28.9, adult; D69.6 Thrombocytopenia, unspecified; D68.9 Coagulation defect, unspecified; K76.6 Portal hypertension; E46 Unspecified protein-calorie malnutrition; D53.9 Nutritional anemia, unspecified; D61.818 Other pancytopenia; D62 Acute posthemorrhagic anemia; E11.65 Type 2 diabetes mellitus with hyperglycemia; E83.41 Hypermagnesemia; E83.42 Hypomagnesemia; E83.52 Hypercalcemia; E87.0 Hyperosmolality and hypernatremia; E87.20 Acidosis, unspecified; F10.10 Alcohol abuse, uncomplicated; G89.4 Chronic pain syndrome; E87.5 Hyperkalemia; G93.41 Metabolic encephalopathy; I85.11 Secondary esophageal varices with bleeding; I95.89 Other hypotension; J69.0 Pneumonitis due to inhalation of food and vomit; K31.89 Other diseases of stomach and duodenum; N39.0 Urinary tract infection, site not specified; Z16.21 Resistance to vancomycin; K76.7 Hepatorenal syndrome; K70.40 Alcoholic hepatic failure without coma; R31.9 Hematuria, unspecified; Z75.1 Person awaiting admission to adequate facility elsewhere; Z99.2 Dependence on renal dialysis; Z78.9 Other specified health status; Z79.4 Long term (current) use of insulin; Z79.84 Long term (current) use of oral hypoglycemic drugs; Z79.899 Other long term (current) drug therapy; K29.71 Gastritis, unspecified, with bleeding; Y84.8 Other medical procedures as the cause of abnormal reaction of the patient, or of later complication, without mention of misadventure at the time of the procedure; Y95 Nosocomial condition; J95.851 Ventilator associated pneumonia
CPT/HCPCS: 36415; 36600; 70450; 71045; 74018; 76705; 80048; 80053; 80069; 80074; 80076; 80202; 80307; 81001; 82010; 82042; 82140; 82150; 82270; 82436; 82803; 82945; 83605; 83615; 83735; 83880; 84100; 84132; 84133; 84157; 84300; 84439; 84443; 84484; 84703; 85014; 85018; 85025; 85384; 85610; 85730; 86703; 86706; 86850; 86900; 86901; 86923; 86927; 86965; 87040; 87070; 87075; 87077; 87081; 87086; 87106; 87186; 87205; 89051; 92526; 92610; 93005; 93971; 94002; 94003; 94640; 94664; 95816; 96361; 96365; 96366; 96375; 97162; 97163; 99284; A4217; A4649; J0696; J1171; J1200; J1450; J1643; J1815; J1938; J2185; J2250; J2354; J2405; J2470; J2543; J2765; J3010; J3373; J3375; J3411; J3430; J3475; J3490; J7030; J7050; J7070; J7120; J7999; P9012; P9016; P9035; P9047; P9060; Q5106; A9270; P0947

== ENCOUNTER 2024-12-09 03:09 | Inpatient (IN) | payer MEDICAID, SELFPAY ==
[2024-12-09] VITALS (11 sets, daily range): BP systolic 113–135; BP diastolic 65–75; PULSE 77–106; RESP 16–20; TEMP 36.4–37.2; O2SAT 95–98
--- NOTE | 2024-12-09 05:03 | PD.RESHP ---
Documentation for date of: 12/09/24 [facility] History of Present Illness Chief complaint: Transferred from [facility] History of present illness: Rubi Knight is a 53-year-old female with past medical history of decompensated alcoholic cirrhosis C/B hepatic encephalopathy, bleeding esophageal varices s/p banding, chronic pain (on Ellis), type 2 diabetes transferred from [facility] on 12/09 for continuation of medical care. Initially she presented to the ED on 11/13 for AMS, weakness, hematemesis. At the time she was admitted for hepatic encephalopathy secondary to decompensated alcoholic cirrhosis. Her hospital course was complicated by her deteriorating mental status which required intubation and later got extubated and downgraded to the floors when her ammonia levels improved by dialysis . Her hospital course was complicated by acute kidney injury along with growing cultures of VRE for which they started on linezolid for 1 week. She got also complicated by pancytopenia, pneumonia with ESBL Klebsiella oxytoca for which she got meropenem and fluconazole. She was transferred to [facility] for possible liver transplant evaluation on 12/05. The course in the [facility] complicated by hepatic encephalopathy managed with rifaximin and lactulose. She got 2 units of PRBC transfusion at [facility] for her hemoglobin levels of 6.9 at the time of admission at [facility]. Ultrasound done at [facility] significant for recannulized periumbilical vein and splenomegaly resembling portal venous hypertension and portal vein was patent. Resumed spironolactone 50/furosemide 20. Meropenem was continued for her Klebsiella oxytoca. There is a concern for growing Lizett glabrata in her urine culture for which?resumed fluconazole 200 mg for 7 days. Liver transplant evaluation was initiated on 12/09 where they concluded she is not a candidate for liver transplantation at this time because of her mental status which is hindering p.o. intake to meet nutritional needs. Liver friability index of 6.92. patient and family declined the recommendation of placement. She got transferred from the [facility] for the continuation of medical care. Currently during my evaluation she complains of generalized abdominal pain and occasional nausea but denies any chest pain, chest tightness or any palpitation. She denies any hematemesis but endorses occasional burning micturition. She complains she still feels drowsy but which significantly improved when compared to the initial admission. She endorses weakness, fatigue going on for a while but denies any fever. Today vitals temperature 99.1 F, heart rate 95, respiration 18, BP 110/65. Past medical history: As stated above, decompensated alcoholic cirrhosis Social history: Chronic alcohol use in the past Review of Systems Review of Systems Systems Reviewed: All systems reviewed, normal except as documented Exam Narrative Exam GENERAL: Alert and oriented x3, no acute distress, following commands. HEENT: NC/AT, mucous membranes moist, bilateral sclera icteric CARDIOVASCULAR: regular rate and rhythm, S1/S2 present, 3/6 systolic murmur heard best at left 2nd intercostal space PULMONARY: clear to auscultation bilaterally, no rales/rhonchi/wheezes ABDOMINAL: Diffuse tenderness to palpation, no rebound/guarding. EXTREMITIES: no peripheral edema SKIN: warm and dry, intact, no rashes, significant bruising BUE. NEURO: CN II-XII grossly intact, no focal deficits, alert, following commands, +2/5 strength of BUE and BLE Results: Labs 12/09/24 17:32 12/09/24 05:15 Quality Measures Quality Measures VTE prophylaxis and none Medications Home Medications and Allergies Home Medications ?Medication ?Instructions ?Recorded ?Confirmed ?Type spironolactone 50 mg tablet 50 mg PO DAILY 10/11/24 11/14/24 History Held on 11/21/24. Instructions: Resume on 11/28/24. Hold until follow up with nephrology/PCP metformin 1,000 mg tablet 1,000 mg PO QDAY 11/14/24 11/14/24 History Held on 11/21/24. Instructions: Resume on 11/28/24. hold until follow up with PCP midodrine 10 mg tablet 10 mg PO Q8H 11/14/24 11/14/24 History Allergies Allergy/AdvReac Type Severity Reaction Status Date / Time latex Allergy Severe Hives Verified 10/22/24 09:29 Visit Medications Acetaminophen (Acetaminophen 325 Mg Tablet) 325 mg PO Q6H PRN PRN Reason: Fever >100.4 Stop: 01/08/25 04:13 Acetaminophen (Acetaminophen 325 Mg Tablet) 325 mg PO Q6H PRN PRN Reason: PAIN SCALE 1-3 (mild Stop: 01/08/25 04:13 Ascorbic Acid (Ascorbic Acid 250 Mg Tablet) 500 mg PO QDAY CELINA Stop: 01/08/25 08:59 Fluconazole (Fluconazole 100 Mg Tablet) 200 mg PO QDAY [facility] Stop: 12/16/24 08:59 Furosemide (Furosemide 20 Mg Tablet) 20 mg PO QAM CELINA Stop: 01/08/25 08:59 Meropenem 1,000 mg/ Sodium (Chloride) 50 mls @ 100 mls/hr IV Q8HR CELINA Stop: 12/16/24 05:59 Lactulose (Lactulose Syrup 20 Gm/30 Ml Udc) 20 gm PO TID CELINA; Protocol Stop: 01/08/25 05:59 Ondansetron HCl (Ondansetron Inj 2 Mg/Ml Inj 2 Ml) 4 mg IVP Q6H PRN; Protocol PRN Reason: NAUSEA OR VOMITING Stop: 01/08/25 04:13 Pantoprazole Sodium (Pantoprazole Inj 40 Mg Vial) 40 mg IVP Q12HR [facility] Stop: 01/08/25 08:59 Rifaximin (Rifaximin 550 Mg Tablet) 550 mg PO BID CELINA Stop: 12/16/24 08:59 Spironolactone (Spironolactone 25 Mg Tablet) 50 mg PO QDAY CELINA Stop: 01/08/25 08:59 Vitamin D (Cholecalciferol (Vitamin D3) 400 Iu Tablet) 40,000 iu PO QDAY CELINA Stop: 01/08/25 08:59 Zinc Gluconate (Zinc Gluconate 50 Mg Tablet) 50 mg PO QDAY [facility] Stop: 01/08/25 08:59 Assessment & Plan Plan Rubi Knight is a 53-year-old female with past medical history of decompensated alcoholic cirrhosis C/B hepatic encephalopathy, bleeding esophageal varices s/p banding, chronic pain (on Ellis), type 2 diabetes transferred from [facility] on 12/09 for continuation of medical care.She was transferred back from [facility] for continuation of care for ESLD. # Hepatic encephalopathy # Decompensated alcoholic cirrhosis History of hepatic encephalopathy. She is currently AO x 3 and answering questions well. ?Continue lactulose 20 g 3 times daily ?Continue rifaximin 550 mg twice daily -Continue to monitor to see if there are any worsening of symptoms. # Esophageal varices #Anemia History of hematemesis and EGD on 11/14 showed grade 1 varices with mucosal oozing. Hemoglobin was 6.9 at [facility] admission and got 2 units of PRBC ?Continue Protonix 40 mg twice daily IV. # OLT candidacy. # Nutritional status # Malnourished Currently she is not a candidate for liver transplantation in view of her nutritional status and mental status as she is not able to take nutritional replenishment.Liver friability index of 6.92 Continuing her NG tube ?Consider nutritional consult. ?Multivitamin 1 tab every day ?Zinc 50 mg p.o. daily daily ?Vitamins C 100 mg daily per oral -Vitamin D3 4000 units daily # Ascites # Spontaneous bacterial peritonitis. ?Continuing meropenem 1 g every 8 hours IV. ?Continuing her spironolactone 50 mg daily. # Aspiration pneumonia History of left basilar pneumonia secondary to aspiration. Respiratory culture grew ESBL Klebsiella oxytoca ?Continue meropenem every 8 hours Continue fluconazole 200 mg daily per oral. # Pancytopenia History of agranulocytosis from Linezolid and pancytopenia hemoglobin 7.8, platelets 64, WBC 1.7. -Consider transfusions as required -Continue to monitor labs # Diabetes mellitus Continue to monitor blood glucose ?Start on sliding scale as required Code status: Full DVT prophylaxis:SCD Diet: NPO Liz: None Lines: PIV Supplemental O2: none Disposition: Med Tele I discussed this case with my senior Dr. Mcrae and my attending Dr.Alhalaibeh Kami Noriega MD PGY1 Attending Provider Attestation/Addendum After examination of the patient and review of the clinical data I feel that this patient needs admission to the hospital for further treatment/evaluation. Plan of care discussed with patient and is in agreement. I Ragini Car MD, attest that I was physically present for son portions of evaluation, and examined patient, labs and imagings and plan of care were discussed with IM residents team, and I agree with the findings and plans documented above.
[2024-12-09] MEDS: MEROPENEM INJ 1,000 MG in SODIUM CHLORIDE 0.9% (Popper) 50 ML 100 MG IV (05:05)
[2024-12-09] MEDS: LACTULOSE SYRUP 20 GM/30 ML UDC NG ×2 (05:28→13:33)
--- NOTE | 2024-12-09 06:46 | PC.NURSE ---
patient unable to recall home meds, will contact mother, Bridgett Knight for med rec.
[2024-12-09 07:41] LABS: Alanine Aminotransferase 12 U/L (10-49); Albumin, Serum 4.3 gm/dL (3.5-5.0); Albumin/Globulin Ratio 2.2 (1.2-2.2); Alkaline Phosphatase 88 U/L (46-116); Anion Gap 9 (7-16); Aspartate Amino Transferase 36 U/L (0-34); BUN/Creatinine Ratio 23 Ratio (12-20); Bilirubin,Total 7.8 mg/dL (0.3-1.2); Blood Urea Nitrogen 14 mg/dL (9-23); Calcium 10.5 mg/dL (8.3-10.6); Calcium (Corrected) 10.5 mg/dL (8.5-10.1); Carbon Dioxide 37.8 mMol/L (20.0-31.0); Chloride 106 mMol/L (98-107); Creatinine (Component) 0.6 mg/dL (0.6-1.3); Globulin 2.0 gm/dL (2.3-3.5); Glucose 127 mg/dL (74-106); Magnesium 2.1 mg/dL (1.6-2.6); Osmolality,Calculated 306 (275-295); Potassium 4.0 mMol/L (3.4-5.1); Sodium 153 mMol/L (136-145); Total Protein 6.3 gm/dL (5.7-8.2); eGFR > 60 See Note
[2024-12-09] MEDS: CHOLECALCIFEROL (Vitamin D3) 400 IU TABLET PO (08:56)
[2024-12-09] MEDS: ASCORBIC ACID 250 MG TABLET 500 MG NG (08:57)
[2024-12-09] MEDS: SPIRONOLACTONE 25 MG TABLET 50 MG NG (08:57)
[2024-12-09] MEDS: FLUCONAZOLE 100 MG TABLET 200 MG NG (08:57)
[2024-12-09] MEDS: MIDODRINE 5 MG TABLET 10 MG PO ×3 (09:01→22:50)
--- NOTE | 2024-12-09 09:09 | ESPR_ITS ---
Documentation for date of: 12/09/24 Patient is a 54-year-old female with a past medical history of decomensated end liver disease with history of ascites, likely secondary to alcohol use disorder, history of esophageal varieces grade III s/p band ligation (12/07), repeated admissions for hepatic encephalopathy, history of hypotension, diabetes mellitus type 2, normocytic anemia, and history of hepato-renal syndrome who initially presented on 11/13/2024 with chief complain of acute on chronic hepatic encephalopathy and LILY, likely hepato-renal. During intial admission in October, patient was started on Rifixmin and lactulose given resistant hepatic encephalopathy with improving LILY with IV fluids and albumin, thus making hepto- renal syndrome less likely and more pre-renal etiology. Patinet eventually required ICU upgrade on 11/27/2024 as patient was unable to protect airway and had a GCS of 7. Patient eventually downgraded on 12/04/2024 on IM Floors after coming off mechanical ventilation. Patient continued meropenem from ICU initially started on -12/04 for left base pneumonia growing Klebsiella Oxytoca. Fluconazole continued given sputum on 11/27/2024 also showing Huong deblinensis, likely started on 11/28/2024. Patient was eventually transferred pm 12/05/2024 for fulminant liver failure, hepatic encephalopathy, and possible liver transplant. Patient eventually transferred back to [facility] on 12/08/2024 from [facility]. Patient's case is currently under review by [facility], and finally decision on possiblity of liver transfer will be made on November 18, 2024. Patient is currently continuing treatment for Hepatic Encephloapthy, slowing improving, continue lactulose 20 g, NG TID and Rifaximin. Pending Nurse Swallow and Speech evaluation-->if pass transition to clear liquids, salt restricted to 2 grams. End Stage liver disease secondary to alcohol use disorder, continue Lasix 20 mg, spironolactone 50 mg NG qday, and Midodrine for hypotension given current treatment. Aspiration pneumonia, Klebsiella and Huong, patient has been treated with antibiotic since 11/28/2024-12/09/2024->12 days of antibiotics and was discontinued on 12/09/2024. Continue Fluconazole, continue to monitor given risk of liver injury. Goals of care discussed with patient's next of kin, Antonia Urias, and family is open to pallitive care. No decision has been made. Consult Music Video Producer. - The patient's plan was discussed with attending Dr. Adalberto Manuel MD PGY2 Internal Medicine Subjective Subjective Interval history: Patient examined bedside, labs reviewed. Patient is minimally responsive, but can indicate when she is in pain. Patient was re-examined and much more responsive, reports feeling very fatigued. Goals of care discussion was held, family agrees with palliative care. Patient has passed the nursing swallow screen starting dysphagia 1 diet (pureed) however could not tolerate so started on clear liquid diet with 2g Na restriction. She has a 1.5L free water deficit, free water flushes were calculated to improve mild hypernatremia (asymptomatic). Exam Vital Signs Temp Pulse Resp BP Pulse Ox O2 Del Method O2 Flow Rate 97.8 F 88 18 114/68 96 Nasal Cannula 2 12/09/24 07:40 12/09/24 09:01 12/09/24 07:40 12/09/24 09:01 12/09/24 07:40 12/09/24 07:40 12/09/24 07:40 Narrative Exam GENERAL: Alert and oriented x3, no acute distress, following commands. HEENT: NC/AT, mucous membranes moist, bilateral sclera icteric CARDIOVASCULAR: regular rate and rhythm, S1/S2 present, 3/6 systolic murmur heard best at left 2nd intercostal space PULMONARY: clear to auscultation bilaterally, no rales/rhonchi/wheezes ABDOMINAL: Diffuse tenderness to palpation, no rebound/guarding. EXTREMITIES: no peripheral edema SKIN: warm and dry, intact, no rashes, significant bruising BUE from IV lines. NEURO: CN II-XII grossly intact, no focal deficits, alert, following commands, + 2/5 strength of BUE and BLE Objective Labs 12/09/24 05:15 12/09/24 05:15 Labs: Laboratory Results - last 24 hr 12/09/24 05:15 Sodium 153 H Potassium 4.0 Chloride 106 Carbon Dioxide 37.8 H Anion Gap 9 BUN 14 Creatinine 0.6 Estim Creat Clear Calc Not Performed. eGFR > 60 BUN/Creatinine Ratio 23 H Glucose 127 H Calculated Osmolality 306 H Calcium 10.5 Corrected Calcium 10.5 H Magnesium 2.1 Total Bilirubin 7.8 H AST 36 H ALT 12 Alkaline Phosphatase 88 Total Protein 6.3 Albumin 4.3 Globulin 2.0 L Albumin/Globulin Ratio 2.2 Quality Measures Quality Measures none Assessment & Plan Assessment Current Active Medications: Generic Name Dose Route Start Last Admin Trade Name Freq PRN Reason Stop Dose Admin Acetaminophen 325 mg 12/09/24 05:20 Acetaminophen 325 Mg Tablet NG 01/08/25 04:13 Q6H PRN Fever >100.4 Acetaminophen 325 mg 12/09/24 05:20 Acetaminophen 325 Mg Tablet NG 01/08/25 04:13 Q6H PRN PAIN SCALE 1-3 (mild Ascorbic Acid 500 mg 12/09/24 09:00 12/09/24 08:57 Ascorbic Acid 250 Mg Tablet NG 01/08/25 08:59 500 mg QDAY CELINA Administration Dextrose 25 ml 12/09/24 08:12 Dextrose 50%-Water Inj 50 Ml Syringe IV 01/08/25 08:11 Q15MIN PRN BG 50-70 responsive npo pt Dextrose 50 ml 12/09/24 08:12 Dextrose 50%-Water Inj 50 Ml Syringe IV 01/08/25 08:11 Q15MIN PRN BG <50 OR BG <70 & pt unresponsive Fluconazole 200 mg 12/09/24 09:00 12/09/24 08:57 Fluconazole 100 Mg Tablet NG 12/16/24 08:59 200 mg QDAY CELINA Administration Furosemide 20 mg 12/09/24 09:00 12/09/24 08:58 Furosemide 20 Mg Tablet NG 01/08/25 08:59 20 mg QAM CELINA Administration Glucagon 1 mg 12/09/24 08:12 Glucagon Inj 1 Mg Vial IM Q15MIN PRN BG <70, and no IV access Meropenem 1,000 mg/ Sodium 50 mls @ 100 mls/hr 12/09/24 06:00 12/09/24 05:05 Chloride IV 12/16/24 05:59 100 mls/hr Q8HR CELINA Administration Insulin Human Lispro 0 unit 12/09/24 11:30 Insulin Lispro (Admelog) 1 Unit/0.01 Ml Unit SC 01/08/25 11:29 AC CELINA Protocol Lactulose 20 gm 12/09/24 06:00 12/09/24 05:28 Lactulose Syrup 20 Gm/30 Ml Udc NG 01/08/25 05:59 20 gm TID CELINA Administration Protocol Midodrine 10 mg 12/09/24 09:00 12/09/24 09:01 Midodrine 5 Mg Tablet PO 01/08/25 08:59 10 mg TID CELINA Administration Ondansetron HCl 4 mg 12/09/24 04:14 Ondansetron Inj 2 Mg/Ml Inj 2 Ml IVP 01/08/25 04:13 Q6H PRN NAUSEA OR VOMITING Protocol Pantoprazole Sodium 40 mg 12/09/24 09:00 12/09/24 08:56 Pantoprazole Inj 40 Mg Vial IVP 01/08/25 08:59 40 mg Q12HR CELINA Administration Rifaximin 550 mg 12/09/24 09:00 12/09/24 08:56 Rifaximin 550 Mg Tablet NG 12/16/24 08:59 550 mg BID CELINA Administration Spironolactone 50 mg 12/09/24 09:00 12/09/24 08:57 Spironolactone 25 Mg Tablet NG 01/08/25 08:59 50 mg QDAY CELINA Administration Vitamin D 400 iu 12/09/24 09:00 12/09/24 08:56 Cholecalciferol (Vitamin D3) 400 Iu Tablet PO 01/08/25 08:59 400 iu QDAY CELINA Administration Zinc Gluconate 50 mg 12/09/24 09:00 Zinc Gluconate 50 Mg Tablet NG 01/08/25 08:59 QDAY CELINA Plan Elzbieta Knight 54F with PMHx of decompensated alcoholic cirrhosis, multiple admissions for hepatic encephalopathy, prior variceal bleeding s/p banding, chronic pain, NIDDM2 presented to [facility] 11/13 for altered mental status, weakness and 2 episodes of hematemesis admitted for hepatic encephalopathy likely secondary to decompensated alcoholic cirrhosis, found to have LIYL, later developing leukopenia, upgraded to ICU on 11/27 for intubation due to inability to protect airway. Downgraded to floors 12/03 for stable transfer. 12/09 transferred from [facility] on 12/09 for continuation of medical care. She was admitted for continuation of her care for hepatic encephalopathy and decompensated alcoholic cirrhosis. Had goals of care discussion, 12/09, family and patient agree to palliative care. #Fulminant Liver Failure i/s/o End-Stage Liver Disease 2/2 Alcoholic Liver Cirrhosis #Hepatic encephalopathy, improving #Pancytopenia 2/2 likely cirrhosis and side effect of linezolid (agranulocytosis) #Coagulopathy/ DIC #history of grade III, varices, s/p band ligation #history of ascites Patient has history of ESLD and hepatic encephalopathy with frequent hospitalizations. Per Mother, patient was diagnosed around September 2023 and this is when she stopped completely drinking alcohol as well. Initial 11/13 ammonia 153, treated with lactulose and rifaximin. During hospital stay, patient has acutely decompensated, with worsening coagulopathy, hepatic encephalopathy, pancytopenia with MELD-Na 40 and Maddrey 49.3. Patient has coagulopathy due to cirrhosis. INR and PTT undetectably high. Noted to have large bruises BUE. Received vitamin K and FFP. Additional platelet and FFP given 12/02, and cryoprecipitate. On 12/04, 1u platelets ordered. Totals transfused this admission: 5u pRBC, 4 FFP, 5 platelets, 11 cryoprecipitate On 11/27 patient developed worsening encephalopathy, GCS 7, repeat ammonia 143 , lactulose had been down titrated due to loose stools. Patient subsequently intubated for airway protection. EEG consistent with acute encephalopathy. On 12/01: Head CT showed no cerebral edema, no stroke; Dialysis for ammonia elevation of 339, decreasing ammonia levels. On 12/03 mentation improved and patient extubated and pressors weaned off. Potential transfer to [facility] vs [place], likely former due to insurance authorization. Today, MELD 33 Plan; - Lactulose 20 mg NG QID - rifamixin 550 mg BID - Lasix 20mg QAM - Spiranolactone 50mg QD - Rectal tube in place, draining - Continuing to treat hepatic encephalopathy and coagulopathy - Avoid hepatically metabolized medications when appropriate - Monitor for signs of blood loss CTM PT/INR - Transfuse to keep PLT >10k unless invasive procedure, 1u platelets today - PT ordered: PT daily #Aspiration pneumonia, likely Klebsiella, resolving #Klebsiella oxytoca, ESBL and huong dubliniensis PNA #Acute hypoxic respiratory failure, resolved #Mechanical Ventilation 2/2 airway support (i/s/o improving hepatic encephalopathy), extubated 12/03 On ICU upgrade on 12/03, patient intubated due to not being able to protect airway with GCS 7. Likely due to aspiration in setting of decreased GCS CXR on 11/27 showed L base consolidation consistent with pneumonia, not seen on previous CXR (11/26).. Patient intubated for airway protection. Blood and sputum cultures- ESBL Klebsiella oxytoca in sputum, BCx NGTD. ET gram stain showed 1+ mixed thad, occasional budding yeast, fungal elements, 2+ wbcs; ET culture ESBL klebsiella oxytoca and huong dubliniensis Plan: - Broad spectrum abx per [facility] as above -DC meropenem (11/29-12/09) -fluconazole 200 mg IV qd (11/28- - Broad spectrum abx per [facility], fluconazole 200 mg IV qd , Meropenem 1,000 mg IV q8hr (11/29-12/09) #Hypernatremia Free water deficit calculated 1.5L deficit Plan: -Free water flushes 62.5mL/hr #Hematemesis - Resolved #Gastritis with recent mucusal bleeding #Grade I non-bleeding esophageal varicies at lower third of esophagus #Hx of Grade III esophageal varicies s/p banding 06/13/24 Patient history of varices requiring banding. EGD 11/14/24 showed garde 1 varices, mucosal oozing. Plan: - GI consulted, appreciate recs - Octreotide drip 5-day course completed - Protonix IV 40mg BID #Tube feedings - discontinued Patient started on tube feeds due to AMS, inability to eat. Plan: - Dietary consulted, appreciate recommendation: Glucernia 1.2 at 60 mL/hr x24h, prostat 30 mL BID #LILY, s/p temporary dialysis, resolved #Hepatorenal syndrome #HAGMA (resolved) #UTI VRE, treatment completed Patient presented with significant LILY, creatinine 2.4 compared to baseline 0.9. Initially managed with albumin and midodrine however LILY returned likely 2/2 increasing hyperammonemia, in which patient received temporary dialysis. Completed 7 day course of linezolid (11/18-11/25) per ID. Ddx: Hepatorenal syndrome, ATN, decreased intravascular volume, lactic acidosis. Patient blood pressure and renal function improved with albumin, octreotide, and midodrine. Kidney function has since declined again, despite serum albumin levels elevated to 6.2. Potential ATN due to inability to hepatically metabolize potential nephrotoxins. Received dialysis 11/29, 11/30, 12/01. TDC removed 12/03. Plan: - Strict I's and O's - Renally dose medication and avoid nephrotoxins # OLT candidacy. # Nutritional status # Malnourished Currently she is not a candidate for liver transplantation in view of her nutritional status and mental status as she is not able to take nutritional replenishment.Liver friability index of 6.92 Continuing her NG tube ?Consider nutritional consult. -Abscorbic acid 500mg QD -Cholecalciferol 400iu PO QD -Zinc gluconate 50mg QD -Zinc sulfate 220 mg QD #T2DM Patient has history of T2DM. A1c 6.0 as of 09/25/24. Plan: - SSI, step 1 Hospital management: Lines: PIV Diet: CLD 2g Na restriction Bowel: lactulose GI prophylaxis: IV pantoprazole 40 mg BID DVT prophylaxis: SCDs Disposition: tele, pending transfer CODE STATUS: FULL CODE Plan of care discussed with attending Dr. Glvoer, and PGY-2 Dr. Manuel. Paulo Elias MD PGY-1 Internal Medicine Attending Provider Attestation/Addendum I have discussed and was present for the essential components of the history, physical examination, diagnosis, and treatment plan with the resident. I agree with the patient's care as documented by the resident and amended herein by me. Dickson Glover DO. Although this document has been carefully reviewed, there may still be some phonetic and other typographical errors. These errors are purely grammatical due to imperfections in the software program and should not be construed in any way to compromise the substance of the patient's medical care during this visit. Patient seen and evaluated this AM. No acute events overnight, patient transferred back from [facility] last night. Unfortunately patient not a candidate for liver transplant at this time due to a declining functional status. Vital signs stable, patient afebrile today, sodium a bit elevated 153 which has been elevated in this patient. Bicarb 37.8. Sputum cultures previously demonstrated MDR Klebsiella, urine cultures significant for yeast. Will likely discontinue meropenem today considering she has been on that for quite some time, may continue fluconazole 200 mg daily, will also continue lactulose, rifaximin, spironolactone and vitamins. Dietitian consulted for feeding recommendations, speech therapy ordered for swallow evaluation, I would like to try to get that NG tube out and get the patient eating on her own again. We will have a goals of care meeting hopefully today the patient's mother comes to bedside, it seems appropriate for palliative care discussions at present considering the patient's status.
[2024-12-09] MEDS: ZINC SULFATE 220 MG CAPSULE NG (11:12)
--- NOTE | 2024-12-09 15:32 | PC.SS ---
This is 54-year-old, single, female who was transferred from [facility]. Patient appeared pleasant, she was alert and oriented to self, place and situation. Patient reported that she resides at home with her mother and children. Patient needs assistance with all her ADLs. Patient has 106 hrs. per month through [facility]. Patient has wheelchair, hospital bed, FWW, rollator, shower chair, bedside commode. Patient assigned her son, Rene Ulloa ([phone]) as his medical decision maker. Patient's PCP is the [facility]. When medically clear, patient will return home with palliative care services. Next of kin: Rene Torres. Discharge Plan: return home with palliative care.
[2024-12-09 18:25] LABS: Basophils # (Auto) 0.0 Thou/mm3 (0.0-0.2); Basophils % (Auto) 1 % (0-2.5); Eosinophils # (Auto) 0.1 Thou/mm3 (0.0-0.5); Eosinophils % (Auto) 2 % (0-10); Hematocrit 26.9 % (36.0-46.0); Immature Granulocytes Auto 0.04 Thou/mm3 (0.00-0.00); Lymphocytes # (Auto) 0.7 Thou/mm3 (1.0-4.8); Lymphocytes % (Auto) 13 % (10-50); Mean Corpuscular HGB Conc 31.6 g/dl (31.0-37.0); Mean Corpuscular Hemoglobin 31.5 pg (25.0-35.0); Mean Corpuscular Volume 100 fL (80-100); Monocytes # (Auto) 0.3 Thou/mm3 (0.0-0.8); Monocytes % (Auto) 7 % (0-12); Neutrophils # (Auto) 4.0 Thou/mm3 (1.8-7.7); Neutrophils % (Auto) 77 % (37-80); Nucleated Red Blood Cell # 0.02 Thou/mm3 (0.00-0.00); Nucleated Red Blood Cell % 0 /100 WBC (0); RDW Standard Deviation 66.6 fL (36.4-46.3); Red Blood Count 2.70 Miln/mm3 (4.00-5.20); White Blood Count 5.2 Thou/mm3 (3.6-11.0)
[2024-12-09 18:31] LABS: Hemoglobin 8.5 g/dL (12.0-16.0); Platelet Count 42 Thou/mm3 (140-440)
[2024-12-09 19:37] LABS: Slide Review Platelets confirmed
[2024-12-09] MEDS: ACETAMINOPHEN 325 MG TABLET PO (20:23)
[2024-12-09] MEDS: LACTULOSE SYRUP 20 GM/30 ML UDC PO (22:50)
[2024-12-10] VITALS (10 sets, daily range): BP systolic 116–130; BP diastolic 67–80; PULSE 73–80; RESP 16–18; TEMP 36.8–36.9; O2SAT 94–98; BMI 32.5
[2024-12-10] MEDS: LACTULOSE SYRUP 20 GM/30 ML UDC PO ×2 (06:34→13:50)
[2024-12-10 07:15] LABS: Alanine Aminotransferase 11 U/L (10-49); Albumin, Serum 4.6 gm/dL (3.5-5.0); Albumin/Globulin Ratio 2.3 (1.2-2.2); Alkaline Phosphatase 71 U/L (46-116); Anion Gap 11 (7-16); Aspartate Amino Transferase 34 U/L (0-34); BUN/Creatinine Ratio 21 Ratio (12-20); Bilirubin,Total 9.9 mg/dL (0.3-1.2); Blood Urea Nitrogen 15 mg/dL (9-23); Calcium 10.6 mg/dL (8.3-10.6); Calcium (Corrected) 10.6 mg/dL (8.5-10.1); Carbon Dioxide 35.2 mMol/L (20.0-31.0); Chloride 104 mMol/L (98-107); Creatinine (Component) 0.7 mg/dL (0.6-1.3); Globulin 2.0 gm/dL (2.3-3.5); Glucose 156 mg/dL (74-106); Magnesium 1.9 mg/dL (1.6-2.6); Osmolality,Calculated 301 (275-295); Phosphorous 2.1 mg/dL (2.4-5.1); Potassium 4.2 mMol/L (3.4-5.1); Sodium 150 mMol/L (136-145); Total Protein 6.6 gm/dL (5.7-8.2); eGFR > 60 See Note
[2024-12-10 07:22] LABS: Basophils # (Auto) 0.0 Thou/mm3 (0.0-0.2); Basophils % (Auto) 1 % (0-2.5); Eosinophils # (Auto) 0.1 Thou/mm3 (0.0-0.5); Eosinophils % (Auto) 3 % (0-10); Hematocrit 27.1 % (36.0-46.0); Immature Granulocytes Auto 0.03 Thou/mm3 (0.00-0.00); Lymphocytes # (Auto) 1.0 Thou/mm3 (1.0-4.8); Lymphocytes % (Auto) 20 % (10-50); Mean Corpuscular HGB Conc 32.1 g/dl (31.0-37.0); Mean Corpuscular Hemoglobin 31.2 pg (25.0-35.0); Mean Corpuscular Volume 97 fL (80-100); Monocytes # (Auto) 0.3 Thou/mm3 (0.0-0.8); Monocytes % (Auto) 7 % (0-12); Neutrophils # (Auto) 3.4 Thou/mm3 (1.8-7.7); Neutrophils % (Auto) 70 % (37-80); Nucleated Red Blood Cell # 0.00 Thou/mm3 (0.00-0.00); Nucleated Red Blood Cell % 0 /100 WBC (0); RDW Standard Deviation 64.6 fL (36.4-46.3); Red Blood Count 2.79 Miln/mm3 (4.00-5.20); White Blood Count 4.9 Thou/mm3 (3.6-11.0)
[2024-12-10 07:24] LABS: Hemoglobin 8.7 g/dL (12.0-16.0); Platelet Count 30 Thou/mm3 (140-440)
--- NOTE | 2024-12-10 08:24 | PCS.ST ---
Swallow Evaluation completed. Advance diet to soft chopped. No s/s of aspiration. Alert and able to actively participate.
--- NOTE | 2024-12-10 09:22 | PD.RESPRO ---
Documentation for date of: 12/10/24 Exam Vital Signs Temp Pulse Resp BP Pulse Ox O2 Del Method O2 Flow Rate 98.2 F 73 16 130/72 98 Nasal Cannula 2 12/10/24 07:37 12/10/24 07:37 12/10/24 07:37 12/10/24 07:37 12/10/24 07:37 12/10/24 07:37 12/10/24 07:37 Objective Labs 12/10/24 05:31 12/10/24 05:31 Labs: Laboratory Results - last 24 hr 12/09/24 12/10/24 17:32 05:31 WBC 5.2 D 4.9 RBC 2.70 L 2.79 L Hgb 8.5 L D 8.7 L Hct 26.9 L 27.1 L MCV 100 97 MCH 31.5 31.2 MCHC 31.6 32.1 RDW Std Deviation 66.6 H 64.6 H Plt Count 42 L D 30 L D Neut % (Auto) 77 70 Lymph % (Auto) 13 20 Ida % (Auto) 7 7 Eos % (Auto) 2 3 Baso % (Auto) 1 1 Neut # (Auto) 4.0 3.4 Lymph # (Auto) 0.7 L 1.0 Ida # (Auto) 0.3 0.3 Eos # (Auto) 0.1 0.1 Baso # (Auto) 0.0 0.0 Immature Gran # (Auto) 0.04 H 0.03 H Absolute Nucleated RBC 0.02 H 0.00 Immature Gran % 1 H 1 H Nucleated RBC % 0 0 Sodium 150 H Potassium 4.2 Chloride 104 Carbon Dioxide 35.2 H Anion Gap 11 BUN 15 Creatinine 0.7 Estim Creat Clear Calc Not Performed. eGFR > 60 BUN/Creatinine Ratio 21 H Glucose 156 H Calculated Osmolality 301 H Calcium 10.6 Corrected Calcium 10.6 H Phosphorus 2.1 L Magnesium 1.9 Total Bilirubin 9.9 H D AST 34 ALT 11 Alkaline Phosphatase 71 Total Protein 6.6 Albumin 4.6 Globulin 2.0 L Albumin/Globulin Ratio 2.3 H Misc Test Result Platelets confirmed Quality Measures Quality Measures VTE prophylaxis and none Assessment & Plan Assessment Current Active Medications: Generic Name Dose Route Start Last Admin Trade Name Freq PRN Reason Stop Dose Admin Acetaminophen 325 mg 12/09/24 19:45 Acetaminophen 325 Mg Tablet PO 01/08/25 04:13 Q6H PRN Fever >100.4 Acetaminophen 325 mg 12/09/24 19:46 12/09/24 20:23 Acetaminophen 325 Mg Tablet PO 01/08/25 04:13 325 mg Q6H PRN Administration PAIN SCALE 1-3 (mild Ascorbic Acid 500 mg 12/09/24 19:47 Ascorbic Acid 250 Mg Tablet PO 01/08/25 08:59 QDAY CELINA Dextrose 25 ml 12/09/24 08:12 Dextrose 50%-Water Inj 50 Ml Syringe IV 01/08/25 08:11 Q15MIN PRN BG 50-70 responsive npo pt Dextrose 50 ml 12/09/24 08:12 Dextrose 50%-Water Inj 50 Ml Syringe IV 01/08/25 08:11 Q15MIN PRN BG <50 OR BG <70 & pt unresponsive Fluconazole 200 mg 12/09/24 19:47 Fluconazole 100 Mg Tablet PO 12/16/24 08:59 QDAY CELINA Furosemide 20 mg 12/09/24 19:47 Furosemide 20 Mg Tablet PO 01/08/25 08:59 QAM CELINA Glucagon 1 mg 12/09/24 08:12 Glucagon Inj 1 Mg Vial IM Q15MIN PRN BG <70, and no IV access Insulin Human Lispro 0 unit 12/09/24 11:30 12/10/24 07:29 Insulin Lispro (Admelog) 1 Unit/0.01 Ml Unit SC 01/08/25 11:29 Not Given AC CELINA Protocol Lactulose 20 gm 12/09/24 19:48 12/10/24 06:34 Lactulose Syrup 20 Gm/30 Ml Udc PO 01/08/25 05:59 20 gm TID CELINA Administration Protocol Midodrine 10 mg 12/09/24 09:00 12/10/24 06:31 Midodrine 5 Mg Tablet PO 01/08/25 08:59 Not Given TID CELINA Ondansetron HCl 4 mg 12/09/24 04:14 Ondansetron Inj 2 Mg/Ml Inj 2 Ml IVP 01/08/25 04:13 Q6H PRN NAUSEA OR VOMITING Protocol Pantoprazole Sodium 40 mg 12/09/24 09:00 12/09/24 20:23 Pantoprazole Inj 40 Mg Vial IVP 01/08/25 08:59 40 mg Q12HR CELINA Administration Rifaximin 550 mg 12/09/24 19:49 10/26/25 20:23 Rifaximin 550 Mg Tablet PO 12/16/24 08:59 550 mg BID CELINA Administration Spironolactone 50 mg 12/09/24 19:48 Spironolactone 25 Mg Tablet PO 01/08/25 08:59 QDAY [facility] Vitamin D 400 iu 12/09/24 09:00 12/09/24 08:56 Cholecalciferol (Vitamin D3) 400 Iu Tablet PO 01/08/25 08:59 400 iu QDAY CELINA Administration Zinc Sulfate 220 mg 12/09/24 19:49 Zinc Sulfate 220 Mg Capsule PO 01/08/25 10:29 QDAY CELINA
[2024-12-10] MEDS: SPIRONOLACTONE 25 MG TABLET 50 MG PO (09:29)
[2024-12-10] MEDS: NAPH,KPH MBDB 1 PACKET (1.5 GM) PO (09:29)
[2024-12-10] MEDS: ZINC SULFATE 220 MG CAPSULE PO (09:29)
[2024-12-10] MEDS: ASCORBIC ACID 250 MG TABLET 500 MG PO (09:29)
[2024-12-10] MEDS: CHOLECALCIFEROL (Vitamin D3) 400 IU TABLET PO (09:30)
[2024-12-10] MEDS: FLUCONAZOLE 100 MG TABLET 200 MG PO (09:30)
[2024-12-10] MEDS: ACETAMINOPHEN 325 MG TABLET PO (09:39)
[2024-12-10 10:10] LABS: Slide Review Platelets confirmed
--- NOTE | 2024-12-10 10:30 | PC.SS ---
SS follow up note; SS contacted transfer nurse Carmen in regards to patient being followed by HH/Palliative care, she informed SS to inform Team A that they need to submit HH order with Palliative care services. SS updated Dr. Manuel.
[2024-12-10] MEDS: INSULIN LISPRO (AdmeLOG) 1 UNIT/0.01 ML UNIT SC ×2 (11:36→17:02)
--- NOTE | 2024-12-10 13:34 | PC.NURSE ---
bp 121/69 HR 79
--- NOTE | 2024-12-10 14:28 | PD.RESDS ---
Planned Discharge Date 12/10/24 DS: Providers Provider Date of admission: 12/09/24 03:09 Primary care physician: Physician No Primary/Family Admitting Provider: Mateo Glover DO Attending Provider on Admission: Ragini Car MD Consults: 12/09/24 06:44 Referral Registered Dietitian Routine Comment: Referral Speech Therapy Routine Comment: 12/09/24 08:14 Referral Physical Therapy Routine Comment: Physician Instructions: 12/09/24 08:15 Referral - BUSINESS SYSTEM CONSULTANT Swimming Professor Routine Comment: swallow solangeal sam Snowda 12/09/24 19:39 Referral Wound Care Routine Comment: coccyx- pressure injury Attending Provider on DC: Mateo Glover DO Discharging Provider: Mateo Glover DO DS: Diagnosis Problem List Completed Was Problem List Reviewed/Reconciled?: Yes Hospital Course Hospital Course Hospital course: Summary: Patient is a 54-year-old female with a past medical history of 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 Patient was eventually transferred to [facility] for possible liver transplant. Subsequently transferred back from [facility] to [place] on 12/09/2024 for further medical management. ER Course: No ER Course as patient was an transfer from [facility] back to [place]. Hospital Course: Patient was transferred back to [facility] from [facility] on 12/09/2024, after brief hospital stay at [facility] for possible liver transplant evaluation. Patient is pending final decision from [facility] transplant services on 12/12/2024. Patient returned to floors with the internal medicine team at [facility] for further treatment of end-stage liver disease secondary to alcohol use and hepatic encephalopathy. Patient was restarted on lactulose 20 mg via NG tube 4 times daily. Rectal tube added as patient remains altered. Rifaximin was continued. Patient slowly improved and became alert and oriented x 3 and NG tube was removed as patient passed swallow test and transition to oral food. LILY resolved upon readmission. Meropenem was continued initially for aspiration pneumonia likely secondary Klebsiella, patient had received appropriate duration of antibiotics, decision was made. Fluconazole was discontinued on 12/10/2024 for pneumonia as noted on sputum culture and and urine cultures. Hyponatremia is initially noted upon admission with a free water deficit of 1.5 L and free water flushes started at 62 cc/h, eventually discontinued as patient was able to pass swallow evaluation and he more alert and oriented. Goals of care discussed with family and patient, decision made to start patient on palliative care with continued full code as of now. Patient eventually was discharged on 12/10/2024 with further resources for hospice as well. Discharge Instructions: -Home with home with palliative referral. -New dose Lasix 20 mg once daily for swelling, stop Lasix 40 mg once daily. -Please continue all medication as prescribed, including new vitamins. -Please follow up with your primary care provider within one week of discharge -If your symptoms worsen,please seek immediate medical attention and return to your nearest emergency room -If you do not have a primary care provider, you [facility] up at [facility] [address] [facility] 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 #Hepatic encephalopathy, improving #Pancytopenia 2/2 likely cirrhosis and side effect of linezolid (agranulocytosis) #Coagulopathy/ DIC #history of grade III, varices, s/p band ligation #history of ascites #Aspiration pneumonia, likely Klebsiella, resolving #Klebsiella oxytoca, ESBL and huong dubliniensis PNA #Acute hypoxic respiratory failure, resolved #Mechanical Ventilation 2/2 airway support (i/s/o improving hepatic encephalopathy), extubated 12/03 #Hypernatremia #Hematemesis - Resolved #Gastritis with recent mucusal bleeding #Grade I non-bleeding esophageal varicies at lower third of esophagus #Hx of Grade III esophageal varicies s/p banding 06/13/24 #Tube feedings - discontinued #LILY, s/p temporary dialysis, resolved #Hepatorenal syndrome #HAGMA (resolved) #UTI VRE, treatment completed # OLT candidacy. # Nutritional status # Malnourished #T2DM Patient's plan and care discussed with my attending, Dr. Glover, and supervising resident MD Paulo Aguilar MD Internal Medicine PGY-1 Senior Resident Attestation: I have discussed the case with supervising physician and engineer intern physician involved in the care of patient. I personally saw and examined patient and discussed the assessment and plan with the entire medical team, including attending. I agree with assessment and plan as documented above. - The patient's plan was discussed with attending Dr. Adalberto Manuel MD PGY2 Internal Medicine Status at Discharge Functional status at discharge: bed bound Overall status at discharge: patient is back to baseline Time Spent with Patient Time attestation: Total time spent providing and/or coordinating discharge services: Time spent: Greater than 30 minutes Home Health Home Health Referral Orders: 12/10/24 11:21 Home Health Referral Routine Reason For Exam: debility Home-Bound The patient must either because of illness or injury, need the aid of supportive devices such as crutches, canes, wheelchairs, and walkers; the use of special transportation; or the assistance of another person in order to leave their place of residence; OR have a condition such that leaving his or her home is medically contraindicated. In addition, the patient also meets the following criteria: patient is normally unable to leave the home and leaving home requires considerable taxing effort. Addendum to Home Health Certification Practitioner's Certification: I certify that the patient has been under my care in the hospital and the care of attending physician (see below). We had a [id number] encounter on (see date below). My clinical findings indicate that the patient is home bound per the above criteria and the Home Health Services noted in these orders are medically necessary. The primary reason for the [id number] encounter is related to the fact that the patient requires home health services. Date Certifying Zlfl-il-Muxg Physician Encounter: 12/09/24 Physician's Name who will Assume Oversight for Services: Alexandre Benites Physician's Phone No.who will Assume Oversight for Service: [facility] [place] Community Resources: No PT to Evaluate: No PT to evaluate and provide a treatmnet plan to increase patient's mobility and strength. Wound Care: No IV Therapy: No Discontinue PICC Line Once Treatment Complete: No RN Safety Evaluation: Yes RN to evaluate and create a plan of care that will produce positive outcomes. Palliative Treatment: Yes Palliative treatment and evaluate the need for hospice. Home Health Aide - Personal Care: Yes Home Health Aide to assist with any ADL's. Exam Vital Signs Temp Pulse Resp BP Pulse Ox O2 Del Method O2 Flow Rate 98.4 F 79 18 121/69 98 Nasal Cannula 2 12/10/24 12:00 12/10/24 13:49 12/10/24 12:00 12/10/24 13:49 12/10/24 12:00 12/10/24 12:00 12/10/24 12:00 Narrative Exam GENERAL: Alert and oriented x3, no acute distress, following commands. HEENT: NC/AT, mucous membranes moist, bilateral sclera icteric CARDIOVASCULAR: regular rate and rhythm, S1/S2 present, 3/6 systolic murmur heard best at left 2nd intercostal space PULMONARY: clear to auscultation bilaterally, no rales/rhonchi/wheezes ABDOMINAL: Diffuse tenderness to palpation, no rebound/guarding. EXTREMITIES: no peripheral edema SKIN: warm and dry, intact, no rashes, significant bruising BUE from IV lines. NEURO: CN II-XII grossly intact, no focal deficits, alert, following commands, +2/5 strength of BUE and BLE Discharge Plan Plan Patient Disposition: Home w/HOSPICE Patient condition on transfer: Stable Care Plan Goals: Instructions: -Home with going home with palliative referral. -New dose Lasix 20 mg once daily for swelling, stop Lasix 40 mg once daily. -Please continue all medication as prescribed, including new vitamins. -Please follow up with your primary care provider within one week of discharge -If your symptoms worsen,please seek immediate medical attention and return to your nearest emergency room -If you do not have a primary care provider, you may follow up at the [facility] at [address], [place] [address], Prescriptions/Referrals Prescriptions/Med Rec: New ascorbic acid (vitamin C) [Vitamin C] 250 mg Tablet 500 mg PO QDAY 30 Days Qty: 60 0RF furosemide 20 mg Tablet 20 mg PO QAM Qty: 60 0RF cholecalciferol (vitamin D3) 10 mcg (400 unit) Tablet 10 mcg PO QDAY 30 Days Qty: 30 0RF zinc sulfate 50 mg zinc (220 mg) Capsule 220 mg PO QDAY 30 Days Qty: 132 0RF Continued hydrocodone-acetaminophen 5-325 mg tablet 1 tab PO Q6H MDD 4 tablets in one day PRN (Reason: pain) Qty: 60 0RF Rx Instructions: Take one tablet by mouth up to every 6 hours pantoprazole 40 mg tablet,delayed release (DR/EC) 40 mg PO QDAY 30 Days Qty: 30 2RF Rx Instructions: Take one tablet by mouth every day before food mirtazapine [Remeron] 30 mg tablet 30 mg PO QHS 30 Days Qty: 30 1RF Rx Instructions: Take one tablet by mouth at bedtime Xifaxan 550 mg tablet 550 mg PO BID 30 Days Qty: 60 2RF Rx Instructions: Take one tablet by mouth twice a day methocarbamol 750 mg tablet 750 mg PO BID 30 Days Qty: 60 2RF Rx Instructions: Take one tablet by mouth twice a day (DME) lancets [FreeStyle Lancets] 28 gauge misc See Rx Instructions .Route Qty: 100 5RF Rx Instructions: Use TID and PRN As directed (DME) Freestyle InsuLinx Test Strips Strip See Rx Instructions .Route Qty: 100 5RF Rx Instructions: Test TID and PRN As directed (DME) lancets [Acti-Petar Lancets] 28 gauge misc See Rx Instructions .Route Qty: 100 2RF Rx Instructions: As directed (DME) Accu-Chek Idania Plus test strp Strip See Rx Instructions .Route Qty: 100 2RF Rx Instructions: As directed (DME) blood-glucose meter [FreeStyle Elma Lite] Kit See Rx Instructions .Route Qty: 1 0RF Rx Instructions: As directed spironolactone 50 mg tablet 50 mg PO DAILY midodrine 10 mg tablet 10 mg PO Q8H lactulose 10 gram/15 mL solution 20 g PO TID Qty: 1200 0RF Patient Comments: TAKE 45 MLS BY MOUTH 3 TIMES A DAY Held metformin 1,000 mg tablet 1,000 mg PO QDAY Hold Instructions: Resume on 12/14/24. Please continue to hold until you follow up with your primary care provider as your previous A1c 6.0. Patient Comments: TAKE 1 1/2 TABLETS BY MOUTH ONCE A DAY Discontinued furosemide 40 mg tablet 40 mg PO QAM Qty: 30 0RF linezolid 600 mg tablet 600 mg PO BID Qty: 7 0RF Referrals: No Primary/Family,Physician [Primary Care Provider] Patient/Caregiver Discharge Instructions Education Materials: Tests for Liver Disease, What Is Palliative Care?, Hospice The Importance of ..., Dehydration, Acute Kidney Failure Dc Print Language: Vietnamese Stand Alone Forms: Mervat Award Info., Patient Portal Info Letter Discharge Order Discharge Orders: Discharge (Routine); Ordered 12/10/24 Ordered By: Antonia Manuel Quality Discharge Quality Measures VTE prophylaxis MD Attestestation MD Attestation I have discussed and was present for the essential components of the discharge history, physical examination, diagnosis, and discharge treatment plan with the resident. I agree with the patient's discharge care as documented by the resident and amended herein by me. Dickson Glover, DO. Patient stable, tolerating p.o. intake, will be discharged with palliative care, unfortunately the patient has been denied twice for liver transplant at [facility] and [facility] due to poor functional status and decline. I did explain to her mother who is her security officers and guards that she can be converted to hospice care should they decide that route. All questions were answered satisfactorily, very poor prognosis going forward. Although this document has been carefully reviewed, there may still be some phonetic and other typographical errors. These errors are purely grammatical due to imperfections in the software program and should not be construed in any way to compromise the substance of the patient's medical care during this visit. Time Spent on discharge: Greater than 30 minutes
--- NOTE | 2024-12-10 15:33 | PC.SS ---
Addendum entered by Nicole Mendez 12/10/24 15:56: SS follow up note; SS was contacted by [facility] ETA is for 1900. SS updated patient's nurse. Original Note: SS follow up note; SS was contacted by patient's nurse in regards to patient needing transportation home via gurney. [facility] Reference # [id number]. SS provided Motive care with [facility] main contact number. SS uploaded PCS form and face-sheet through [employer] platform to [facility].
--- NOTE | 2024-12-11 12:50 | PC.CM ---
Patient has been accepted by [facility]. They will open patient on 12/11.
--- NOTE | 2024-12-12 08:27 | PC.CM ---
I sent orders and discharge summary to [facility].
== END 2024-12-10 19:32 | disposition home health service (06) | DRG 280 ==
LOC: S3NX 03:22 → S3SX 03:37
PROVIDERS: Student in an Organized Health Care Education/Training Program; Admitting Provider Student in an Organized Health Care Education/Training Program; Visit Provider Student in an Organized Health Care Education/Training Program
DX: K70.31 Alcoholic cirrhosis of liver with ascites (principal); J69.0 Pneumonitis due to inhalation of food and vomit; D61.818 Other pancytopenia; E11.9 Type 2 diabetes mellitus without complications; F10.10 Alcohol abuse, uncomplicated; E87.1 Hypo-osmolality and hyponatremia; E87.0 Hyperosmolality and hypernatremia; K65.2 Spontaneous bacterial peritonitis; K72.10 Chronic hepatic failure without coma; K76.6 Portal hypertension; K76.82 Hepatic encephalopathy; K92.0 Hematemesis; N17.9 Acute kidney failure, unspecified; Z16.24 Resistance to multiple antibiotics; Z51.5 Encounter for palliative care; Z79.84 Long term (current) use of oral hypoglycemic drugs; Z79.891 Long term (current) use of opiate analgesic; Z79.899 Other long term (current) drug therapy; B96.1 Klebsiella pneumoniae [K. pneumoniae] as the cause of diseases classified elsewhere; D68.4 Acquired coagulation factor deficiency; K76.7 Hepatorenal syndrome; E87.20 Acidosis, unspecified; K29.71 Gastritis, unspecified, with bleeding
CPT/HCPCS: 36415; 80053; 83735; 84100; 85025; 87081; 92610; 94762; J1815; J2185; J2470; J7050; A9270

== ENCOUNTER 2024-12-19 14:06 | Inpatient (IN) | payer MEDICAID, SELFPAY ==
[2024-12-19] VITALS (9 sets, daily range): BP systolic 119–130; BP diastolic 74–91; PULSE 73–88; RESP 14–20; TEMP 36.3–37.2; O2SAT 93–98; BMI 27.2
--- NOTE | 2024-12-19 14:12 | XR_ITS ---
CLINICAL INDICATION: chest pain TECHNIQUE: XR chest 1V portable Exam date and time: 12/19/2024 at 2:22 p.m. COMPARISON: Chest radiograph 11/27/2024 FINDINGS: The cardiomediastinal silhouette appears prominent in size but this could be magnified by the portable technique and patient's supine positioning. Interval extubation. Hypoventilatory changes with otherwise no significant pleural-parenchymal abnormality. Previously visualized large retrocardiac consolidation is no longer seen. No discrete acute airspace opacities suggestive of pneumonia. No mass detected. No pleural effusion or pneumothorax. No acute osseous abnormality detected. Mild multilevel thoracic spondylosis noted. IMPRESSION: No radiographic evidence for acute cardiopulmonary abnormality. - This report was generated utilizing speech recognition software. -
--- NOTE | 2024-12-19 14:12 | EKG_ITS ---
[facility] Test Date: 2024-12-19 Pat Name: SHANNON ORTIZ Department: Room: - Gender: Female Content Engineer: : 1970 Requested By: Therese Akbar Order Number: [id number] Reading MD: Therese Akbar Measurements Intervals [place] Rate: 83 P: 39 MI: 124 QRS: 42 QRSD: 76 T: -66 QT: 377 QTc: 444 Interpretive Statements SINUS RHYTHM LOW QRS VOLTAGE IN PRECORDIAL LEADS [QRS DEFLECTION < 1.0 mV IN CHEST LEADS] MODERATE T-WAVE ABNORMALITY, CONSIDER ANTEROLATERAL ISCHEMIA [-0.1+ mV T-WAVE IN V3-V6] MODERATE T-WAVE ABNORMALITY, CONSIDER INFERIOR ISCHEMIA [-0.1+ mV T-WAVE IN II/aVF] Compared to ECG 11/13/2024 11:30:33 T-wave abnormality now present Possible ischemia now present Myocardial infarct finding no longer present /store/S0/[id number]/ecg/[id number].pdf
--- NOTE | 2024-12-19 14:13 | XR_ITS ---
Examination: CT brain head without contrast. 2-D sagittal coronal reconstructions Date and time of exam: 12/19/2024, 3:45 p.m. INDICATION: AMS COMPARISON: Noncontrast head CT 12/01/2024. CTDI: vol (mGy): 49.9 DLP: (mGycm): 952 Technique: Multiple CT axial sections of the brain have been obtained, 5 mm slice thickness. Contrast has not been administered. 2-D sagittal, coronal reconstructions have been obtained Low dose protocols were performed. One or more of the following dose reduction techniques were used; automated exposure control, adjustment of the mA and/or KV according to patient size, use of iterative reconstruction technique. Findings: The brain appears within normal limits for age and stable compared to prior head CT. No evidence for large vessel acute transcortical ischemic infarction. No significant ventricular enlargement. Intra-axial or extra-axial hemorrhage density is not seen. No mass effect or midline shift Basal cisterns are not remarkable. Fourth ventricle is midline. Cranial vault intact. Hyperostosis frontalis interna noted. There is improved opacification of the right maxillary sinus with less mucosal hypertrophy and/or fluid within it compared to prior head CT, compatible with residual sinusitis. There is very mild mucosal hypertrophy in the inferior portion of the right frontal sinus. Opacification of the left-sided mastoid air cells shows progression compared to prior CT, and now seen is mild opacification of the left middle ear cavity. Mild progressive opacification of inferiorly located right-sided mastoid air cells. No right middle ear opacification. Impression: Negative noncontrast head CT for acute intracranial abnormality. Findings suggestive of left-sided otitis media with progressive mastoid opacification. Mildly progressive inferior right-sided mastoid opacification without right middle ear opacification.
[2024-12-19 14:55] LABS: Base Excess 5 (-3-3); HCO3 29 mEq/L (20-26); Inspired Oxygen, FIO2 21 %; O2 Saturation 96 % (91-98); PCO2 40 mmHg (32.0-48.0); PO2 71 mmHg (83-108); pH, Arterial 7.47 (7.35-7.45)
[2024-12-19 14:56] LABS: Allen Test Performed/OK; Puncture Site Right Radial
[2024-12-19 15:16] LABS: Lactate (Lactic Acid) 3.8 mMol/L (0.4-2.0)
--- NOTE | 2024-12-19 15:17 | PD.EDGIBLD ---
ED GI Bleed RME/HPI General Chief complaint: GI Bleed Stated complaint: RECTAL BLEED Time Seen by Provider: 12/19/24 14:08 Arrival date/time: 12/19/24 14:06 RME / HPI RME / HPI Narrative: 54 year old female with history of decompensated end stage liver disease secondary to alcohol use disorder, ascites, esophageal varices s/p banding, GI bleed, multiple admissions for hepatic encephalopathy, diabetes presents to the ED BIBA from home for evaluation of rectal bleeding today. Per medics, family on scene reported patient had been having rectal bleeding on/off for some time though noted the bleeding to be worse today. Family on scene additionally reported the patient was at [facility] for liver transplant on 12/02/2024. However, did not undergo transplant due to patient being very fatigued and globally weak. Related Data Home Medications ?Medication ?Instructions ?Recorded ?Confirmed spironolactone 50 mg tablet 50 mg PO DAILY 10/11/24 11/14/24 metformin 1,000 mg tablet 1,000 mg PO QDAY 11/14/24 11/14/24 Held on 12/10/24. Instructions: Resume on 12/14/24. Please continue to hold until you follow up with your primary care provider as your previous A1c 6.0. midodrine 10 mg tablet 10 mg PO Q8H 11/14/24 11/14/24 Previous Rx's ?Medication ?Instructions ?Recorded blood sugar diagnostic (Accu-Chek #100 ea 07/23/24 Idania Plus test strips) lancets 28 gauge (Acti-Petar #100 ea 07/23/24 Lancets) blood-glucose meter (FreeStyle #1 ea 08/10/24 [place] Lite kit) mirtazapine 30 mg tablet (Remeron) 30 mg PO QHS 1 month #30 tabs 09/10/24 pantoprazole 40 mg tablet,delayed 40 mg PO QDAY 1 month #30 tabs 09/10/24 release blood sugar diagnostic (Freestyle #100 ea 10/01/24 InsuLinx Test Strips) lancets 28 gauge (FreeStyle #100 ea 10/01/24 Lancets) methocarbamol 750 mg tablet 750 mg PO BID 1 month #60 tabs 10/01/24 rifaximin 550 mg tablet (Xifaxan) 550 mg PO BID 1 month #60 tabs 10/01/24 hydrocodone 5 mg-acetaminophen 325 1 tab PO Q6H PRN pain #60 tabs 10/22/24 mg tablet lactulose 10 gram/15 mL oral 20 g (30 mL) PO TID #1,200 mL 11/21/24 solution ascorbic acid (vitamin C) 250 mg 500 mg (2 x 250 mg) PO QDAY 1 12/10/24 tablet (Vitamin C) month #60 tabs cholecalciferol (vitamin D3) 10 10 mcg PO QDAY 1 month #30 tabs 12/10/24 mcg (400 unit) tablet furosemide 20 mg tablet 20 mg PO QAM #60 tabs 12/10/24 zinc sulfate 50 mg zinc (220 mg) 220 mg (4.4 x 50 mg zinc (220 mg)) 12/10/24 capsule PO QDAY 1 month #132 caps Allergies Allergy/AdvReac Type Severity Reaction Status Date / Time latex Allergy Severe Hives Verified 10/22/24 09:29 Review of Systems Review of Systems Systems Reviewed: All systems reviewed, normal except as documented Past Medical History Past Medical History NEUROLOGIC: Positive Neurological Disorders, Migraine and Spinal Cord Injury CARDIAC: Positive Hypotension GASTROINTESTINAL: Positive Gastrointestinal Disorders, Cirrhosis, Gastrointestinal Bleed, Esophageal Varices and Hemorrhoids GENITOURINARY: Positive Genitourinary Disorders and Renal Disease REPRODUCTIVE: Positive Endometriosis and Previous Pregnancies MUSCULOSKELETAL: Positive Musculoskeletal Disorders ENDOCRINE: Positive Endocrine Disorders and Diabetes Mellitus Type 2 HEMATOLOGIC: Positive Blood Disorders and Anemia PSYCHO/SOCIAL: Positive Depression and Anxiety OTHER HISTORY: Positive Blood Transfusions, Chicken Pox and Measles Family History FAMILY HISTORY: Positive Family Psychiatric Problems and Family Cancer Surgical History SURGICAL: Positive Abdominal Surgery and Section Social History SMOKING STATUS: Never smoker SECOND HAND EXPOSURE: No SUBSTANCE USE: marijuana ED Exam Narrative Physical exam: GENERAL APPEARANCE: Drowsy, jaundice, no acute distress HEENT: Normocephalic, atraumatic; pupils equal, round, reactive to light; scleral icterus; EOMI; mucous membranes pink, moist; oropharynx clear NECK: Supple LUNGS: CTABL; no wheezes, no rales, no rhonchi HEART: Regular rate, regular rhythm; normal S1, S2; no murmurs ABDOMEN: non distended; normal BS; soft, no tenderness, no guarding, no rebound; no masses, no organomegaly, no hernia RECTAL: Patient had moderate amount of bright red blood in brief. EXTREMITIES: multiple areas of ecchymosis to bilateral forearms; no edema NEUROLOGIC: drowsy; cranial nerves II-XII grossly intact SKIN: warm, dry, jaundice with multiple areas of ecchymosis to bilateral forearms; no rashes Course Quality Measures none Orders Category Date Time Status CT Screening NOW Care 12/19/24 16:20 Active Salvage Inspector NOW Care 12/19/24 14:12 Active EKG (ED ONLY) *Do not use* NOW Care 12/19/24 14:12 Completed Consult to Gastroenterology Stat Cons 12/19/24 17:[address] abdomen pelvis w con Stat Exams 12/19/24 16:[address] head/brain wo con Stat Exams 12/19/24 14:13 Completed EKG (ED Only) Stat Exams 12/19/24 14:12 Draft XR chest 1V portable Stat Exams 12/19/24 14:12 Completed ABG [Arterial Blood Gas] Stat Lab 12/19/24 14:51 Completed Alcohol, Blood Medical Stat Lab 12/19/24 15:09 Completed Ammonia Stat Lab 12/19/24 15:09 Completed B-Type Natriuretic Peptide Stat Lab 12/19/24 15:09 Completed Blood Culture (Lab) Stat Lab 12/19/24 15:09 Received CBC Stat Lab 12/19/24 15:09 Completed Comprehensive Metabolic Panel Stat Lab 12/19/24 15:09 Completed Drug Screen,Urine Stat Lab 12/19/24 14:12 Ordered FFP [Fresh Frozen Plasma] Stat Lab 12/19/24 15:09 Results Lactate (Lactic Acid) Stat Lab 12/19/24 15:09 Results Lipase Stat Lab 12/19/24 15:09 Completed Magnesium Stat Lab 12/19/24 15:09 Completed PLATELETS [Pheresis Platelets] Stat Lab 12/19/24 15:09 Results Partial Thromboplastin Time Stat Lab 12/19/24 17:28 Received Procalcitonin Stat Lab 12/19/24 15:09 Completed Prothrombin Time with INR Stat Lab 12/19/24 17:28 Received Troponin I Stat Lab 12/19/24 15:09 Completed Type and Screen Stat Lab 12/19/24 15:09 Results UA, C/S IF [Urinalysis, C/S if Indicated] Stat Lab 12/19/24 14:12 Ordered Sodium Chloride 0.9% 1000 ml [Ns] 1,000 ml Med 12/19/24 15:20 Discontinued IV 999 mls/hr Vital Signs Vital signs: Vital Signs Temperature 99.0 F 12/19/24 14:07 Pulse Rate 87 12/19/24 14:07 Respiratory Rate 18 12/19/24 14:07 Blood Pressure 130/91 H 12/19/24 14:07 Pulse Oximetry (%) 96 12/19/24 14:07 Oxygen Delivery Method Room Air 12/19/24 14:07 Pulse ox is 96% on room air which is adequate. PROCEDURES: Procedure Comment Indication: Inability to get peripheral access Procedure Details Indication: Inability to get peripheral access The patient was positioned appropriately in a comfortable manner, with the arm placed in a relaxed, extended position to allow optimal visualization of the venous anatomy. Equipment Used: Ultrasound machine and probe 22G IV ChloraPrep Procedure: The skin over the intended insertion site was cleaned and prepped with Chlorhexidine. The ultrasound probe was placed on the patient?s right AC, and real-time imaging was used to identify a suitable vein. The vein was visualized in both the short and long axes, confirming its patency and appropriate size for catheter placement. A 22G IV catheter was inserted under continuous ultrasound guidance, with confirmation of correct needle placement within the vein. Blood flashback was observed in the catheter. The IV was flushed with normal saline with no evidence of extravasation or hematoma. GI Bleed MDM Narrative MDM Narrative:: Sabrina Slade am scribing for and in the presence of Dr. Sanchez. Patient data External records reviewed:: [facility] previous records and EMS form Clinical information provided by:: patient and EMS Social determinants that could affect healthcare access:: alcohol use (former alcohol use ) Patient has the following chronic illnesses:: Decompensated end stage liver disease secondary to alcohol use disorder, ascites, esophageal varices s/p banding, GI bleed, multiple admissions for hepatic encephalopathy, diabetes, How is presenting disease/condition affected by chronic disease/condition?: exacerbated by Evaluation data The following diagnostics were reviewed and interpreted by me:: lab results, radiology exam(s) and EKG tracing(s) (EKG @ 14:36h. Normal sinus rhythm, rate 83, no STEMI. ) Lab and/or radiology exams considered but not ordered:: None Interpretation Summary: Ordering Physician: Therese Sanchez MD Date of Service: 12/19/24 Procedure(s): CT head/brain wo con Accession Number(s): [id number] cc: Geoff Moreno MD; Therese Sanchez MD; Jadiel Oneill DO~ Examination: CT brain head without contrast. 2-D sagittal coronal reconstructions Date and time of exam: 12/19/2024, 3:45 p.m. INDICATION: AMS COMPARISON: Noncontrast head CT 12/01/2024. CTDI: vol (mGy): 49.9 DLP: (mGycm): 952 Technique: Multiple CT axial sections of the brain have been obtained, 5 mm slice thickness. Contrast has not been administered. 2-D sagittal, coronal reconstructions have been obtained Low dose protocols were performed. One or more of the following dose reduction techniques were used; automated exposure control, adjustment of the mA and/or KV according to patient size, use of iterative reconstruction technique. Findings: The brain appears within normal limits for age and stable compared to prior head CT. No evidence for large vessel acute transcortical ischemic infarction. No significant ventricular enlargement. Intra-axial or extra-axial hemorrhage density is not seen. No mass effect or midline shift Basal cisterns are not remarkable. Fourth ventricle is midline. Cranial vault intact. Hyperostosis frontalis interna noted. There is improved opacification of the right maxillary sinus with less mucosal hypertrophy and/or fluid within it compared to prior head CT, compatible with residual sinusitis. There is very mild mucosal hypertrophy in the inferior portion of the right frontal sinus. Opacification of the left-sided mastoid air cells shows progression compared to prior CT, and now seen is mild opacification of the left middle ear cavity. Mild progressive opacification of inferiorly located right-sided mastoid air cells. No right middle ear opacification. Impression: Negative noncontrast head CT for acute intracranial abnormality. Findings suggestive of left-sided otitis media with progressive mastoid opacification. Mildly progressive inferior right-sided mastoid opacification without right middle ear opacification. Dictated By: Jadiel Oneill DO Signed By: <Electronically signed by Jadiel Oneill DO in OV>12/19/24 1600 Ordering Physician: Therese Sanchez MD Date of Service: 12/19/24 Procedure(s): XR chest 1V portable Accession Number(s): [id number] cc: Therese Sanchez MD; Jadiel Oneill DO~ CLINICAL INDICATION: chest pain TECHNIQUE: XR chest 1V portable Exam date and time: 12/19/2024 at 2:22 p.m. COMPARISON: Chest radiograph 11/27/2024 FINDINGS: The cardiomediastinal silhouette appears prominent in size but this could be magnified by the portable technique and patient's supine positioning. Interval extubation. Hypoventilatory changes with otherwise no significant pleural-parenchymal abnormality. Previously visualized large retrocardiac consolidation is no longer seen. No discrete acute airspace opacities suggestive of pneumonia. No mass detected. No pleural effusion or pneumothorax. No acute osseous abnormality detected. Mild multilevel thoracic spondylosis noted. IMPRESSION: No radiographic evidence for acute cardiopulmonary abnormality. - This report was generated utilizing speech recognition software. - Dictated By: Jadiel Oneill DO Signed By: <Electronically signed by Jadiel Oneill DO in OV>12/19/24 1439 Medications / Prescriptions Medications or Prescriptions considered but not ordered:: None Medication administrations:: Medication Administration History Discontinued Medications Sodium Chloride (Ns) 1,000 mls @ 999 mls/hr IV .Q1H1M ONE Stop: 12/19/24 16:20 Last Admin: 12/19/24 17:15 Dose: 999 mls/hr Documented By: JAlberto See above Consultations Consultation(s) initiated? (list below): Yes Consultation #1 (Physician, Specialty, Details): I spoke with GI Dr. Culp. Discussed patients PMHx, HPI, ED course, exam findings, labs, and radiology results. He agrees to consult. Time: 17:15 Consultation #2 (Physician, Specialty, Details): I spoke with hospitalist team B for admission. Discussed patients PMHx, HPI, ED course, exam findings, labs, and radiology results. The hospitalist agree to accept the patient for admission. Time: 17:18 Diagnosis GI bleed differential diagnosis: hemorrhoids, esophageal varices, Upper gastrointestinal hemorrhage, Lower gastrointestinal hemorrhage and hematochezia Most likely diagnosis given after review of the tests above:: Rectal bleeding Encephalopathy Admission Indicated Admission indicated?: indicated Admission Request Was there a request for admission?: Yes Admission Attestation Admission request attestation: Discussed case with [] from Hospitalist service regarding admission. Discussed patients ED course, exam findings, labs, and radiology results. The Hospitalist [agrees,declines] to accept the patient for admission. Disposition Plan Disposition Plan: Admit Discharge Plan Plan Patient Disposition: Admit Acute Care w/in Hospital Prescriptions/Referrals Prescriptions/Med Rec: No Action hydrocodone-acetaminophen 5-325 mg tablet 1 tab PO Q6H MDD 4 tablets in one day PRN (Reason: pain) Qty: 60 0RF Rx Instructions: Take one tablet by mouth up to every 6 hours pantoprazole 40 mg tablet,delayed release (DR/EC) 40 mg PO QDAY 30 Days Qty: 30 2RF Rx Instructions: Take one tablet by mouth every day before food mirtazapine [Remeron] 30 mg tablet 30 mg PO QHS 30 Days Qty: 30 1RF Rx Instructions: Take one tablet by mouth at bedtime Xifaxan 550 mg tablet 550 mg PO BID 30 Days Qty: 60 2RF Rx Instructions: Take one tablet by mouth twice a day methocarbamol 750 mg tablet 750 mg PO BID 30 Days Qty: 60 2RF Rx Instructions: Take one tablet by mouth twice a day (DME) lancets [FreeStyle Lancets] 28 gauge misc See Rx Instructions .Route Qty: 100 5RF Rx Instructions: Use TID and PRN As directed (DME) Freestyle InsuLinx Test Strips Strip See Rx Instructions .Route Qty: 100 5RF Rx Instructions: Test TID and PRN As directed (DME) lancets [Acti-Petar Lancets] 28 gauge misc See Rx Instructions .Route Qty: 100 2RF Rx Instructions: As directed (DME) Accu-Chek Idania Plus test strp Strip See Rx Instructions .Route Qty: 100 2RF Rx Instructions: As directed (DME) blood-glucose meter [FreeStyle [place] Lite] Kit See Rx Instructions .Route Qty: 1 0RF Rx Instructions: As directed ascorbic acid (vitamin C) [Vitamin C] 250 mg Tablet 500 mg PO QDAY 30 Days Qty: 60 0RF furosemide 20 mg Tablet 20 mg PO QAM Qty: 60 0RF cholecalciferol (vitamin D3) 10 mcg (400 unit) Tablet 10 mcg PO QDAY 30 Days Qty: 30 0RF zinc sulfate 50 mg zinc (220 mg) Capsule 220 mg PO QDAY 30 Days Qty: 132 0RF spironolactone 50 mg tablet 50 mg PO DAILY metformin 1,000 mg tablet 1,000 mg PO QDAY Patient Comments: TAKE 1 1/2 TABLETS BY MOUTH ONCE A DAY midodrine 10 mg tablet 10 mg PO Q8H lactulose 10 gram/15 mL solution 20 g PO TID Qty: 1200 0RF Patient Comments: TAKE 45 MLS BY MOUTH 3 TIMES A DAY Referrals: Geoff Moreno MD [Primary Care Provider, Internal Medicine] - In 1 week Problem List Clinical Impression: Rectal bleeding, Encephalopathy Patient/Caregiver Discharge Instructions Print Language: Armenian Stand Alone Forms: [facility] Award Info., Patient Portal Info Letter
[2024-12-19 15:22] LABS: Basophils # (Auto) 0.0 Thou/mm3 (0.0-0.2); Basophils % (Auto) 1 % (0-2.5); Eosinophils # (Auto) 0.1 Thou/mm3 (0.0-0.5); Eosinophils % (Auto) 2 % (0-10); Hematocrit 37.5 % (36.0-46.0); Hemoglobin 11.8 g/dL (12.0-16.0); Immature Granulocytes Auto 0.01 Thou/mm3 (0.00-0.00); Lymphocytes # (Auto) 0.9 Thou/mm3 (1.0-4.8); Lymphocytes % (Auto) 19 % (10-50); Mean Corpuscular HGB Conc 31.5 g/dl (31.0-37.0); Mean Corpuscular Hemoglobin 32.8 pg (25.0-35.0); Mean Corpuscular Volume 104 fL (80-100); Monocytes # (Auto) 0.4 Thou/mm3 (0.0-0.8); Monocytes % (Auto) 8 % (0-12); Neutrophils # (Auto) 3.2 Thou/mm3 (1.8-7.7); Neutrophils % (Auto) 70 % (37-80); Nucleated Red Blood Cell # 0.00 Thou/mm3 (0.00-0.00); Nucleated Red Blood Cell % 0 /100 WBC (0); RDW Standard Deviation 108.0 fL (36.4-46.3); Red Blood Count 3.60 Miln/mm3 (4.00-5.20); White Blood Count 4.5 Thou/mm3 (3.6-11.0)
[2024-12-19 15:41] LABS: Ammonia < 10 uMol/L (11-32)
[2024-12-19 15:46] LABS: Platelet Count 26 Thou/mm3 (140-440); Slide Review Platelets confirmed
[2024-12-19 16:11] LABS: B-Type Natriuretic Peptide > 3280 pg/mL (0-100)
--- NOTE | 2024-12-19 16:20 | XR_ITS ---
Examination: CT abdomen with intravenous contrast CT pelvis with intravenous contrast 2-D coronal reconstructions 2-D sagittal reconstructions Date and time of exam: December 20, 2024, 2026 hours, comparison October 11, 2024 INDICATIONS: Rectal bleeding beginning 3 days ago. CTDI: vol (mGy) 11.5 DLP: (mGycm) 650 Technique: Multiple axial sections of the abdomen and pelvis have been obtained. 64 slice high-resolution scanner used. 3 mm axial sections have been obtained, post intravenous injection 60 cc [id number] 2-D sagittal, coronal reconstructions obtained. Low dose protocols were performed. One or more of the following dose reduction techniques were used; automated exposure control, adjustment of the mA and/or KV according to patient size, use of iterative reconstruction technique. Findings: Pneumonia right base Moderate right and mild left pleural effusions Cirrhosis, liver irregular in contour Esophageal varices Splenomegaly Perigastric varices Distended gallbladder No pancreatic or adrenal mass Mild ascites Anasarca No bowel obstruction 23 mm left renal cyst Tiny 1 to 2 mm bilateral renal calculi and 6 mm calculus in the right renal pelvis urinary, no ureteral calculi bladder intact Normal appendix IMPRESSION: Pneumonia right base Moderate right and mild left pleural effusions Cirrhosis Esophageal perigastric varices Distended gallbladder, recommend hepatobiliary sonography follow-up Mild ascites Normal appendix Bilateral nonobstructing renal calculi No bowel obstruction or diverticulitis No nonspecific colitis or enteritis or proctitis pattern
[2024-12-19 16:24] LABS: Alanine Aminotransferase 7 U/L (10-49); Albumin, Serum 4.6 gm/dL (3.5-5.0); Albumin/Globulin Ratio 1.8 (1.2-2.2); Alcohol, Blood Medical < 10.0 mg/dL (0-10.0); Alkaline Phosphatase 79 U/L (46-116); Anion Gap 17 (7-16); Aspartate Amino Transferase 29 U/L (0-34); BUN/Creatinine Ratio 11 Ratio (12-20); Blood Urea Nitrogen 10 mg/dL (9-23); Calcium 10.4 mg/dL (8.3-10.6); Calcium (Corrected) 10.4 mg/dL (8.5-10.1); Carbon Dioxide 24.7 mMol/L (20.0-31.0); Chloride 107 mMol/L (98-107); Creatinine (Component) 0.9 mg/dL (0.6-1.3); Estimated Creatinine Clearance 57.5 mL/min (>60); Globulin 2.6 gm/dL (2.3-3.5); Glucose 159 mg/dL (74-106); Lipase 12 U/L (12-53); Magnesium 1.6 mg/dL (1.6-2.6); Osmolality,Calculated 298 (275-295); Potassium 4.3 mMol/L (3.4-5.1); Procalcitonin 0.18 ng/ml (0.0-0.49); Sodium 149 mMol/L (136-145); Total Protein 7.2 gm/dL (5.7-8.2); Troponin I 0.024 ng/mL (0.0-0.045); eGFR > 60 See Note
[2024-12-19 16:26] LABS: Bilirubin,Total 21.0 mg/dL (0.3-1.2)
[2024-12-19] MEDS: SODIUM CHLORIDE 0.9% 1000 ML 1,000 ML 999 ML IV (17:15)
--- NOTE | 2024-12-19 17:27 | ESHP_ITS ---
<Statement entered by Jero Wilkins MD - 12/20/24 16:54> Patient was seen and examined at bedside. I agree on the assessment and plan on this note as documented by resident Leonard Fields DO PGY1. 54-year-old female with past medical history of decompensated end-stage liver disease secondary to alcohol use disorder/BAKER, ascites, esophageal varices s/p banding, GI bleed, hepatic encephalopathy and diabetes who presented to [facility] on 12/19 with a chief complaint of bright red blood per rectum, patient is well- known to hospitalist service has been admitted multiple times to the hospital due to complications of her underlying cirrhosis, was transferred to higher level of care for transplant evaluation and was denied due to poor functional status. Was discharged during her last admission on palliative care, family wants to continue with full treatment and wants the patient to be full code. Patient will be admitted, GI consulted, started on lactulose 20 g 3 times daily titrate to 3-4 bowel movements, rifaximin 550 mg twice daily, octreotide drip, Protonix twice daily, will resume home dose midodrine. There is suspicion of DIC, will obtain coag panel, fibrinogen and D-dimer and will treat with blood products as needed accordingly. Will plan for goals of care in the morning. Case discussed with attending Dr. Mateo Zuniga MD PGY-2 Documentation for date of: 12/19/24 HPI History of Present Illness History of present illness: HPI: 54-year-old female with past medical history with history of decompensated end stage liver disease secondary to alcohol use disorder, ascites, esophageal varices s/p banding, GI bleed, multiple admissions for hepatic encephalopathy, diabetes Presented to the ED on 12/19/2024 from home for evaluation of rectal bleeding as noted by extrusion technician at bedside when she changed her brief. Reportedly, patient had been having rectal bleeding on and off for some time which was noted to be worse today. Patient is not well cognizant into her situation and in formation is primarily obtained from extrusion technician at bedside who admits to nausea, and diarrhea, and worsening mentation. Denies fevers, vomiting. Patient had gone to [facility] for liver transplant scheduled on 12/02/2024 however the surgery was deferred for patient being very fatigued and globally weak. ED course: VSS T99.0, HR 87, RR 18, BP 130s/91, O2 96% in RA. Patient was given 1 L of normal saline bolus. CT head negative for acute intracranial abnormality. CXR negative for acute cardiopulmonary abnormalities. PMH: * Alcoholic cirrhosis with recurrent ascites and hepatic encephalopathy * Variceal bleeding s/p banding * Biliary dyskinesia * T2DM * Chronic pain (back pain since 2018, s/p work injury) * Depression, anxiety * Anemia, thrombocytopenia * Endometriosis PSH: * I&D right labial abscess (09/24/24) * Appendectomy * 2x section * 2 laparoscopic surgeries for endometriosis Meds (per chart, pending reconciliation): * Spironolactone 25 mg daily * Furosemide 20 mg daily * Lactulose 30 g TID * Rifaximin 550 mg BID * Propranolol 10 mg BID * Metformin 1000 mg daily * Methocarbamol 750 mg BID * [place] 5/325 mg PRN (ran out 2 days ago) * Pantoprazole 40 mg daily * Mirtazapine 30 mg QHS * Vitamin D weekly Allergies: Latex --> hives FHx: * Family cancer, psychiatric illness. * No cardiac, respiratory, GI disorders. SHx: * EtOH: Quit 2023, long history of abuse. * Tobacco: Never smoker. * Drugs: Marijuana use. * Lives with mother. Exam Vital Signs Temp Pulse Resp BP Pulse Ox O2 Del Method 99.0 F 87 18 130/91 H 96 Room Air 12/19/24 14:07 12/19/24 14:07 12/19/24 14:07 12/19/24 14:07 12/19/24 14:07 12/19/24 14:07 Narrative Exam GENERAL: Alert and oriented x2, following commands. HEENT: NC/AT, mucous membranes moist, bilateral sclera icteric CARDIOVASCULAR: regular rate and rhythm, S1/S2 present, 3/6 systolic murmur heard best at left 2nd intercostal space PULMONARY: clear to auscultation bilaterally, no rales/rhonchi/wheezes ABDOMINAL: Diffuse tenderness to palpation, no rebound/guarding. EXTREMITIES: no peripheral edema SKIN: warm and dry, intact, no rashes, jaundice, significant bruising BUE, hematoma on the flank. NEURO: CN II-XII grossly intact, no focal deficits, alert, following commands, + 2/5 strength of BUE and BLE Results: Labs 12/21/24 05:59 12/21/24 05:59 Labs: Short CBC 12/19/24 Range/Units 15:09 WBC 4.5 (3.6-11.0) Thou/mm3 Hgb 11.8 L (12.0-16.0) g/dL Hct 37.5 (36.0-46.0) % Plt Count 26 L* (140-440) Thou/mm3 BMP 12/19/24 15:09 Sodium 149 H Potassium 4.3 Chloride 107 Carbon Dioxide 24.7 BUN 10 Creatinine 0.9 Glucose 159 H Calcium 10.4 Cardiac Enzymes 12/19/24 Range/Units 15:09 Troponin I 0.024 (0.0-0.045) ng/mL Liver Function 12/19/24 Range/Units 15:09 Total Bilirubin 21.0 H* (0.3-1.2) mg/dL AST 29 (0-34) U/L ALT 7 L (10-49) U/L Alkaline Phosphatase 79 (46-116) U/L Albumin 4.6 (3.5-5.0) gm/dL ABG Interpretation ABG results: 12/19/24 14:51 ABG pH 7.47 H ABG pCO2 40 ABG pO2 71 L ABG HCO3 29 H ABG O2 Saturation 96 ABG Base Excess 5 H Quality Measures Quality Measures none Medications Home Medications and Allergies Home Medications ?Medication ?Instructions ?Recorded ?Confirmed ?Type spironolactone 50 mg tablet 50 mg PO DAILY 10/11/24 History metformin 1,000 mg tablet 1,000 mg PO QDAY 11/14/24 History Held on 12/10/24. Instructions: Resume on 12/14/24. Please continue to hold until you follow up with your primary care provider as your previous A1c 6.0. midodrine 10 mg tablet 10 mg PO Q8H 11/14/24 History Allergies Allergy/AdvReac Type Severity Reaction Status Date / Time latex Allergy Severe Hives Verified 12/21/24 16:36 Visit Medications Discontinued Medications Sodium Chloride (Ns) 1,000 mls @ 999 mls/hr IV .Q1H1M ONE Stop: 12/19/24 16:20 Last Admin: 12/19/24 17:15 Dose: 999 mls/hr Assessment & Plan Plan 54-year-old female with past medical history with history of decompensated end stage liver disease secondary to alcohol use disorder, ascites, esophageal varices s/p banding, GI bleed, multiple admissions for hepatic encephalopathy, diabetes Presented to the ED on 12/19/2024 from home for evaluation of rectal bleeding She was admitted on 12/09 as a transfer back from [facility] for continuation of her care for hepatic encephalopathy and decompensated alcoholic cirrhosis. Had goals of care discussion, 12/09, family and patient agree to palliative care. #GI bleed #DIC possible, should be ruled out Patient was noted to have blood per rectum according to career education teacher. Hgb 11.8 ? GI Dr. Culp consulted, appreciate recs ? Diet n.p.o. in preparation for possible colonsocopy - see below, ordered fibrinogen and D-dimer. #Fulminant Liver Failure i/s/o End-Stage Liver Disease 2/2 Alcoholic Liver Cirrhosis #Hepatic encephalopathy #Pancytopenia 2/2 likely cirrhosis #Coagulopathy #history of ascites Patient has history of ESLD and hepatic encephalopathy with frequent hospitalizations. Per Mother, patient was diagnosed around September 2023 and this is when she stopped completely drinking alcohol as well. NH3 <10, BNP >3280, (trop .024), T bili 2.1 Patient has coagulopathy due to cirrhosis. INR and PTT elevated markedly. Noted to have large bruises BUE. Plt 26, received 1u of FFP Lasix and spironolactone on hold Plan; ? Lactulose syrup p.o. 20 g 3 times daily ? Rifaximin p.o. 550 mg twice daily ? Ceftriaxone IV 1 g daily for SBP PPx ? Neurochecks every 4 hour ? Obtain weight daily ? Strict GLADYS ? Midodrine p.o. 10 mg 3 times daily, hold for SBP >120 ? Blood smear pathology review ? Acetaminophen tab p.o. 325 mg every 6 hours PRN pain or fever - Continuing to treat hepatic encephalopathy and coagulopathy - Avoid hepatically metabolized medications when appropriate ? CBC, CMP, PTT, PT/INR, Mg, and Phos AM draw - Transfuse to keep PLT >10k unless invasive procedure, 1u platelets today #Grade I non-bleeding esophageal varicies at lower third of esophagus #Hx of Grade III esophageal varicies s/p banding 4/30/25 Patient history of varices requiring banding. EGD 11/14/24 showed garde 1 varices, mucosal oozing. Plan: - Octreotide - Protonix IV 40mg BID ? Zofran IVP 4 mg every 6 hours as needed #Hypernatremia Na 149 -Encouraged free water intake -(Send bottle of water with every meal) #T2DM Patient has history of T2DM. A1c 6.0 as of 09/25/24. Hospital management: Lines: PIV Diet: NPO in preparation for possible colonoscopy Bowel: lactulose GI prophylaxis: IV pantoprazole 40 mg BID DVT prophylaxis: SCDs Disposition: tele, pending transfer CODE STATUS: FULL CODE This case was discussed with my attending physician, Dr. Glover, and senior resident, Dr Wilkins. Leonard Fields DO PGY I Attending Provider Attestation/Addendum I or my resident physicians have discussed care with the ED physician and I have made the decision to admit. I have discussed and was present for the essential components of the history, physical examination, diagnosis, and treatment plan with the resident. I agree with the patient's care as documented by the resident and amended herein by me. Dickson Glover DO. Although this document has been carefully reviewed, there may still be some phonetic and other typographical errors. These errors are purely grammatical due to imperfections in the software program and should not be construed in any way to compromise the substance of the patient's medical care during this visit.
[2024-12-19 18:14] LABS: Reflex Lactate? Y
[2024-12-19 18:16] LABS: Lactic Acid, 3 HR 3.5 mMol/L (0.4-2.0)
[2024-12-19] MEDS: LACTULOSE SYRUP 20 GM/30 ML UDC PO ×2 (18:32→22:58)
[2024-12-19 18:33] LABS: Collection Type, Urine Catheter
[2024-12-19] MEDS: cefTRIAXone/D5w 1gm IV premix 1 GM/50 ML BAG IV (18:33)
[2024-12-19 18:56] LABS: Bilirubin,Urine Negative (Negative); Blood,Urine 3+ (Negative); Clarity,Urine Clear (Clear/Hazy); Color,Urine Yellow (Lt Yel-Yel); Glucose, Urine Negative (Negative); Ketones,Urine Negative (Negative); Leukocyte Esterase,Urine Positive (Negative); Nitrite,Urine Negative (Negative); PH,Urine 6.0 (5.0-7.0); Protein,Urine 1+ (Neg - Trace); RBC,Urine 400 /hpf (0-3); Specific Gravity,Urine 1.014 (1.001-1.035); Squamous Epithelial Cell,Urine < 1 /hpf (0-5); Urobilinogen,Urine Negative mg/dL (0.0-1.0); WBC,Urine 22 /hpf (0-5)
[2024-12-19 18:59] LABS: D-Dimer 735 ng/mL (<600)
[2024-12-19 19:23] LABS: Culture Indicated,Urine Yes
[2024-12-19] MEDS: OCTREOTIDE ACET INJ 1,000 MCG in SODIUM CHLORIDE 0.9% 100 ML 5.1 MCG IV (19:33)
[2024-12-19 19:34] LABS: Amphetamine/Methamp Scrn,U Negative (Negative); Barbiturate Screen,Urine Negative (Negative); Benzodiazepines Screen,Urine Negative (Negative); Benzoylecgonine Screen, Ur Negative (Negative); Fentanyl Screen,Urine Negative (Negative); Opiate Screen,Urine Negative (Negative); THC Screen,Urine Positive (Negative)
[2024-12-19 19:44] LABS: Path Review Blood Smear Sent to Pathologist
--- NOTE | 2024-12-19 20:14 | PD.IMCONS ---
HPI Data of Consult Requesting Physician: Mateo Glover DO Primary Care Provider: Geoff Moreno MD Consult Narrative Reason for consult: Rectal bleeding History of present illness: 54 years old female came into the emergency room with multiple episodes of rectal bleeding she does have a previous history of colonoscopy requiring band ligation of the Internal hemorrhoids She was transferred last time from the ICU to [facility] for a possible liver transfer evaluation the details of that evaluation [facility] remains obscure not much history obtained from the patient at the moment Presenting hemoglobin hematocrit 11.8 and 37.5 Lactic acid 3.5 Total bilirubin 21.0 AST ALT 29 and 7 and alk phos of 79 cc:: cc: Mateo Glover DO Review of Systems Review of Systems Systems Reviewed: All systems reviewed, normal except as documented Past Medical History Surgical History OTHER SURGICAL HX: Diabetes mellitus type 2 End-stage liver disease secondary to alcohol Multiple bouts of hepatic encephalopathy Meds Home Medications and Allergies Home Medications ?Medication ?Instructions ?Recorded ?Confirmed ?Type spironolactone 50 mg tablet 50 mg PO DAILY 10/11/24 12/20/24 History metformin 1,000 mg tablet 1,000 mg PO QDAY 11/14/24 12/20/24 History Held on 12/10/24. Instructions: Resume on 12/14/24. Please continue to hold until you follow up with your primary care provider as your previous A1c 6.0. midodrine 10 mg tablet 10 mg PO Q8H 11/14/24 12/20/24 History Allergies Allergy/AdvReac Type Severity Reaction Status Date / Time latex Allergy Severe Hives Verified 10/22/24 09:29 Exam Vital Signs Temp Pulse Resp BP Pulse Ox O2 Del Method 98.7 F 81 16 129/85 H 95 Room Air 12/19/24 19:22 12/19/24 19:22 12/19/24 19:22 12/19/24 19:22 12/19/24 19:22 12/19/24 19:22 Constitutional Comments: Chronically ill-appearing Routine Respiratory Exam Comments: Normal to auscultation Routine Abdominal Exam Comments: Soft nontender positive ascites Results Labs 12/20/24 05:30 12/20/24 05:30 Labs: Short CBC 12/19/24 Range/Units 15:09 WBC 4.5 (3.6-11.0) Thou/mm3 Hgb 11.8 L (12.0-16.0) g/dL Hct 37.5 (36.0-46.0) % Plt Count 26 L* (140-440) Thou/mm3 BMP 12/19/24 15:09 Sodium 149 H Potassium 4.3 Chloride 107 Carbon Dioxide 24.7 BUN 10 Creatinine 0.9 Glucose 159 H Calcium 10.4 Cardiac Enzymes 12/19/24 Range/Units 15:09 Troponin I 0.024 (0.0-0.045) ng/mL Liver Function 12/19/24 Range/Units 15:09 Total Bilirubin 21.0 H* (0.3-1.2) mg/dL AST 29 (0-34) U/L ALT 7 L (10-49) U/L Alkaline Phosphatase 79 (46-116) U/L Albumin 4.6 (3.5-5.0) gm/dL Urine 12/19/24 Range/Units 18:30 Urine Color Yellow (Lt Yel-Yel) Urine Clarity Clear (Clear/Hazy) Urine pH 6.0 (5.0-7.0) Ur Specific [place] 1.014 (1.001-1.035) Urine Protein 1+ A (Neg - Trace) Urine Glucose (UA) Negative (Negative) ABG Interpretation ABG results: 12/19/24 14:51 ABG pH 7.47 H ABG pCO2 40 ABG pO2 71 L ABG HCO3 29 H ABG O2 Saturation 96 ABG Base Excess 5 H Assessment and Plan Additional Assessment & Plan Additional Plan: Rectal bleeding most likely from the anorectal junction Monitor CBC If there is a significant drop I will do a flexible sigmoidoscopy with most likely rebanding of the anorectal junction hemorrhoids Other medical problems include End-stage liver disease secondary to alcohol with advanced portal hypertension and multiple bouts of hepatic encephalopathy Diabetes mellitus type 2 Thank you very much for the opportunity to participate in care of this patient
[2024-12-19 20:17] LABS: Partial Thromboplastin Time 59.8 Seconds (22.0-36.0)
[2024-12-19 20:24] LABS: Prothrombin Time > 63.0 Seconds (9.0-12.2)
[2024-12-19 22:25] LABS: Fibrinogen < 50 mg/dL (175-375)
[2024-12-19] MEDS: MIDODRINE 5 MG TABLET 10 MG PO (22:58)
[2024-12-19] MEDS: Magnesium Sulfate 2 GM Ivpb 2 GM/50 ML BAG IV (23:02)
[2024-12-20] VITALS (16 sets, daily range): BP systolic 115–145; BP diastolic 68–91; PULSE 69–85; RESP 13–19; TEMP 36.2–36.9; O2SAT 93–99; BMI 27.2
[2024-12-20] MEDS: LACTULOSE SYRUP 20 GM/30 ML UDC PO (06:04)
[2024-12-20 06:20] LABS: Basophils # (Auto) 0.0 Thou/mm3 (0.0-0.2); Basophils % (Auto) 1 % (0-2.5); Eosinophils # (Auto) 0.1 Thou/mm3 (0.0-0.5); Eosinophils % (Auto) 4 % (0-10); Hematocrit 29.7 % (36.0-46.0); Hemoglobin 9.3 g/dL (12.0-16.0); Immature Granulocytes Auto 0.01 Thou/mm3 (0.00-0.00); Lymphocytes # (Auto) 0.7 Thou/mm3 (1.0-4.8); Lymphocytes % (Auto) 23 % (10-50); Mean Corpuscular HGB Conc 31.3 g/dl (31.0-37.0); Mean Corpuscular Hemoglobin 32.9 pg (25.0-35.0); Mean Corpuscular Volume 105 fL (80-100); Monocytes # (Auto) 0.3 Thou/mm3 (0.0-0.8); Monocytes % (Auto) 8 % (0-12); Neutrophils # (Auto) 2.1 Thou/mm3 (1.8-7.7); Neutrophils % (Auto) 64 % (37-80); Nucleated Red Blood Cell # 0.00 Thou/mm3 (0.00-0.00); Nucleated Red Blood Cell % 0 /100 WBC (0); RDW Standard Deviation 106.8 fL (36.4-46.3); Red Blood Count 2.83 Miln/mm3 (4.00-5.20); White Blood Count 3.2 Thou/mm3 (3.6-11.0)
[2024-12-20 06:26] LABS: Platelet Count 44 Thou/mm3 (140-440)
[2024-12-20 06:28] LABS: INR 2.0 (0.9-1.3); Partial Thromboplastin Time 41.5 Seconds (22.0-36.0); Prothrombin Time 19.6 Seconds (9.0-12.2)
[2024-12-20 06:52] LABS: Alanine Aminotransferase 8 U/L (10-49); Albumin, Serum 4.1 gm/dL (3.5-5.0); Albumin/Globulin Ratio 1.8 (1.2-2.2); Alkaline Phosphatase 74 U/L (46-116); Anion Gap 13 (7-16); Aspartate Amino Transferase 21 U/L (0-34); BUN/Creatinine Ratio 16 Ratio (12-20); Bilirubin,Direct 6.4 mg/dL (0.0-0.3); Bilirubin,Total 16.9 mg/dL (0.3-1.2); Blood Urea Nitrogen 13 mg/dL (9-23); Calcium 9.8 mg/dL (8.3-10.6); Calcium (Corrected) 9.8 mg/dL (8.5-10.1); Carbon Dioxide 27.7 mMol/L (20.0-31.0); Chloride 109 mMol/L (98-107); Creatinine (Component) 0.8 mg/dL (0.6-1.3); Estimated Creatinine Clearance 64.7 mL/min (>60); Globulin 2.3 gm/dL (2.3-3.5); Glucose 149 mg/dL (74-106); Magnesium 2.0 mg/dL (1.6-2.6); Osmolality,Calculated 301 (275-295); Phosphorous 3.8 mg/dL (2.4-5.1); Potassium 4.1 mMol/L (3.4-5.1); Sodium 150 mMol/L (136-145); Total Protein 6.4 gm/dL (5.7-8.2); eGFR > 60 See Note
[2024-12-20] MEDS: PHYTONADIONE INJ 10 MG in SODIUM CHLORIDE 0.9% 50 ML 153 MG IV (08:26)
[2024-12-20 08:27] LABS: Slide Review Platelets confirmed
[2024-12-20] MEDS: LACTULOSE SYRUP 10 GM/15 ML 200 GM PR (12:30)
[2024-12-20] MEDS: cefTRIAXone/D5w 1gm IV premix 1 GM/50 ML BAG IV (14:47)
[2024-12-20] MEDS: MORPHINE SULF INJ 4 MG/ML VIAL 2 MG IVP (15:06)
--- NOTE | 2024-12-20 15:23 | ESPR_ITS ---
<Statement entered by Rene Cui MD - 12/21/24 16:22> Patient seen and examined at bedside. I discussed and supervised with the cad intern physician who took care of this patient. I personally saw and examined the patient. I agree with most of the assessment and plan. Plan of care discussed with attending Dr. Glover. Rene Cui MD PGY-2 Documentation for date of: 12/20/24 Subjective Subjective Interval history: Patient was seen and examined at bedside. No acute events took place overnight. Patient states doing okay. Her abdominal pain is worse when sitting up. Her body tender to palpation globally. Goals of care discussion at 130 afternoon. VSS WNL, So far patient has had 1 L gain of fluids (300 mL liter urine output) Weight same as presentation but down about 14 kg on 12/04 WBC 3.2, Hgb 9.3, PLT count 44 NA 150, osmole 301 high, LA 3.5, T. bili 16.9, direct 6 point, LFTs unremarkable Hepatitis panel negative PT 19.6/63, INR 2.0/undetectably high, PTT 41.5/59.8 Blood and urine cultures pending Fibrinogen <50 Exam Vital Signs Temp Pulse Resp BP Pulse Ox O2 Del Method O2 Flow Rate 97.2 F 74 19 139/81 H 96 Nasal Cannula 1 12/20/24 12:00 12/20/24 15:02 12/20/24 12:00 12/20/24 15:02 12/20/24 12:00 12/20/24 12:00 12/20/24 12:00 Narrative Exam PE:? GENERAL: Alert and oriented x2, following commands. HEENT: NC/AT, mucous membranes moist, bilateral sclera icteric CARDIOVASCULAR: regular rate and rhythm, S1/S2 present, 3/6 systolic murmur heard best at left 2nd intercostal space PULMONARY: clear to auscultation bilaterally, no rales/rhonchi/wheezes ABDOMINAL: Diffuse tenderness to palpation, no rebound/guarding. EXTREMITIES: no peripheral edema SKIN: warm and dry, intact, no rashes, jaundice, significant bruising BUE, hematoma on the flank.?? NEURO: CN II-XII grossly intact, no focal deficits, alert, following commands, +2/5 strength of BUE and BLE Objective Labs 12/21/24 05:59 12/21/24 05:59 Labs: Laboratory Results - last 24 hr 12/19/24 12/19/24 12/19/24 15:09 17:28 18:30 WBC 4.5 RBC 3.60 L Hgb 11.8 L Hct 37.5 MCV 104 H MCH 32.8 MCHC 31.5 RDW Std Deviation 108.0 H Plt Count 26 L* Neut % (Auto) 70 Lymph % (Auto) 19 [place] % (Auto) 8 Eos % (Auto) 2 Baso % (Auto) 1 Neut # (Auto) 3.2 Lymph # (Auto) 0.9 L [place] # (Auto) 0.4 Eos # (Auto) 0.1 Baso # (Auto) 0.0 Immature Gran # (Auto) 0.01 H Absolute Nucleated RBC 0.00 Immature Gran % 0 Nucleated RBC % 0 Smear Path Review Sent to Pathologist PT INR APTT Fibrinogen D-Dimer 735 H Sodium 149 H Potassium 4.3 Chloride 107 Carbon Dioxide 24.7 Anion Gap 17 H BUN 10 Creatinine 0.9 Estim Creat Clear Calc 57.5 L eGFR > 60 BUN/Creatinine Ratio 11 L Glucose 159 H Calculated Osmolality 298 H Lactic Acid 3.5 H Calcium 10.4 Corrected Calcium 10.4 H Phosphorus Magnesium 1.6 Total Bilirubin 21.0 H* Direct Bilirubin AST 29 ALT 7 L Alkaline Phosphatase 79 Ammonia < 10 L Troponin I 0.024 B-Natriuretic Peptide > 3280 H* Total Protein 7.2 Albumin 4.6 Globulin 2.6 Albumin/Globulin Ratio 1.8 Lipase 12 Procalcitonin 0.18 Ur Collection Type Catheter Urine Color Yellow Urine Clarity Clear Urine pH 6.0 Ur Specific [place] 1.014 Urine Protein 1+ A Urine Glucose (UA) Negative Urine Ketones Negative Urine Blood 3+ A Urine Nitrite Negative Urine Bilirubin Negative Urine Urobilinogen (Auto) Negative Ur Leukocyte Esterase Positive Urine RBC 400 H Urine WBC 22 H Ur Squamous Epith Cells < 1 Urine Bacteria None Ur Culture Indicated? Yes Urine Opiates Screen Negative Urine Fentanyl Screen Negative Ur Barbiturates Screen Negative U Amphetamin/Meth Scrn Negative U Benzodiazepines Scrn Negative U Cocaine Metab Screen Negative U Marijuana (THC) Screen Positive A Ethyl Alcohol < 10.0 Misc Test Result Platelets confirmed Blood Type O Positive Antibody Screen NEGATIVE Crossmatch See Detail Blood Bank Wristband ID Yes Blood Bank Comment PLATP Ready 12/19/24 12/20/24 19:19 05:30 WBC 3.2 L RBC 2.83 L Hgb 9.3 L D Hct 29.7 L MCV 105 H MCH 32.9 MCHC 31.3 RDW Std Deviation 106.8 H Plt Count 44 L D Neut % (Auto) 64 Lymph % (Auto) 23 [place] % (Auto) 8 Eos % (Auto) 4 Baso % (Auto) 1 Neut # (Auto) 2.1 Lymph # (Auto) 0.7 L [place] # (Auto) 0.3 Eos # (Auto) 0.1 Baso # (Auto) 0.0 Immature Gran # (Auto) 0.01 H Absolute Nucleated RBC 0.00 Immature Gran % 0 Nucleated RBC % 0 Smear Path Review PT > 63.0 H* D 19.6 H D INR 2.0 H APTT 59.8 H D 41.5 H D Fibrinogen < 50 L* D-Dimer Sodium 150 H Potassium 4.1 Chloride 109 H Carbon Dioxide 27.7 Anion Gap 13 BUN 13 Creatinine 0.8 Estim Creat Clear Calc 64.7 eGFR > 60 BUN/Creatinine Ratio 16 Glucose 149 H Calculated Osmolality 301 H Lactic Acid Calcium 9.8 Corrected Calcium 9.8 Phosphorus 3.8 Magnesium 2.0 Total Bilirubin 16.9 H D Direct Bilirubin 6.4 H AST 21 ALT 8 L Alkaline Phosphatase 74 Ammonia Troponin I B-Natriuretic Peptide Total Protein 6.4 Albumin 4.1 D Globulin 2.3 Albumin/Globulin Ratio 1.8 Lipase Procalcitonin Ur Collection Type Urine Color Urine Clarity Urine pH Ur Specific [place] Urine Protein Urine Glucose (UA) Urine Ketones Urine Blood Urine Nitrite Urine Bilirubin Urine Urobilinogen (Auto) Ur Leukocyte Esterase Urine RBC Urine WBC Ur Squamous Epith Cells Urine Bacteria Ur Culture Indicated? Urine Opiates Screen Urine Fentanyl Screen Ur Barbiturates Screen U Amphetamin/Meth Scrn U Benzodiazepines Scrn U Cocaine Metab Screen U Marijuana (THC) Screen Ethyl Alcohol Misc Test Result Platelets confirmed Blood Type Antibody Screen Crossmatch Blood Bank Wristband ID Blood Bank Comment ABG Interpretation ABG results: 12/19/24 14:51 ABG pH 7.47 H ABG pCO2 40 ABG pO2 71 L ABG HCO3 29 H ABG O2 Saturation 96 ABG Base Excess 5 H Quality Measures Quality Measures none Assessment & Plan Assessment Current Active Medications: Generic Name Dose Route Start Last Admin Trade Name Freq PRN Reason Stop Dose Admin Acetaminophen 325 mg 12/19/24 17:51 Acetaminophen 325 Mg Tablet PO 01/18/25 17:50 Q6H PRN Fever >101.5, or pain 1-3 Ceftriaxone Sodium/Dextrose 1 gm in 50 mls @ 100 mls/hr 12/19/24 18:04 12/20/24 14:47 Rocephin/D5w 1gm Iv Premix IV 12/26/24 18:03 100 mls/hr QDAY@1400 CELINA Administration Octreotide Acetate 1,000 mcg/ 102 mls @ 5.1 mls/hr 12/20/24 15:30 Sodium Chloride IV 12/24/24 19:29 .Q20H CELINA Protocol 50 MCG/HR Phytonadione 10 mg/ Sodium 51 mls @ 153 mls/hr 12/20/24 08:00 12/20/24 10:48 Chloride IV 12/22/24 07:59 Not Given DAILY CELINA Midodrine 10 mg 12/19/24 22:00 12/20/24 15:02 Midodrine 5 Mg Tablet PO 01/18/25 21:59 Not Given TID CELINA Ondansetron HCl 4 mg 12/19/24 17:56 Ondansetron Inj 2 Mg/Ml Inj 2 Ml IVP 01/18/25 17:55 Q6H PRN NAUSEA OR VOMITING Protocol Pantoprazole Sodium 40 mg 12/19/24 21:00 12/20/24 08:27 Pantoprazole Inj 40 Mg Vial IVP 01/18/25 20:59 40 mg BID CELINA Administration Rifaximin 550 mg 12/19/24 21:00 12/20/24 10:49 Rifaximin 550 Mg Tablet PO 12/26/24 20:59 Not Given BID CELINA Plan 54-year-old female with past medical history of decompensated end stage liver disease secondary to alcohol use disorder, ascites, esophageal varices s/p banding, GI bleed, multiple admissions for hepatic encephalopathy, diabetes presented to the ED on 12/19/2024 brought by mover helper from home for evaluation of rectal bleeding.? She was admitted on 12/09 as a transfer back from [facility] for continuation of her care for hepatic encephalopathy and decompensated alcoholic cirrhosis. After 1 unit of FFP, PT 19.6 (63), INR 2.0 (>6.3), and PTT 41.5 (59.8). Fibrinogen <50, administered 7 units of cryoprecipitate. Had goals of care discussion, 12/20, and shared the poor prognosis of the patient based on MELD-Na 39pt, 53% estimated 3 month mortality, and Child-Pani[place] scores 11, 1-3y life expectancy. Awaiting final decision after further discussion amongst themselves. #GI bleed #DIC possible, should be ruled out Patient was noted to have blood per rectum according to pulmonary care nurse.? Hgb 11.8 ? GI Dr. Culp consulted, appreciate recs ? Diet n.p.o. in preparation for possible colonsocopy - see below, ordered fibrinogen and D-dimer. #Fulminant Liver Failure i/s/o End-Stage Liver Disease 2/2 Alcoholic Liver Cirrhosis #Hepatic encephalopathy #Pancytopenia 2/2 likely cirrhosis #Coagulopathy #history of ascites? Patient has history of ESLD and hepatic encephalopathy with frequent hospitalizations. Per Mother, patient was diagnosed around September 2023 and this is when she stopped completely drinking alcohol as well.? MELD-Na 39pt, 53% estimated 3 month mortality, and Child-Pani[place] scores 11, 1-3y life expectancy NH3 <10, BNP >3280, (trop .024),?T bili 2.1 Patient has coagulopathy due to cirrhosis. INR and PTT elevated markedly. Noted to have large bruises BUE.? Plt 26, received 1u of FFP Lasix and spironolactone on hold Fibrinogen <50 After 1 unit of FFP, PT 19.6 (63), INR 2.0 (>6.3), and PTT 41.5 (59.8). Plan; ? Lactulose enema TID - Administered 7 units of cryoprecipitate ? Rifaximin p.o. 550 mg twice daily ? Ceftriaxone IV 1 g daily for SBP PPx ? Neurochecks every 4 hour ? Obtain weight daily ? Strict GLADYS ? Midodrine p.o. 10 mg 3 times daily, hold for SBP >120 ? Blood smear pathology review ? Acetaminophen tab p.o. 325 mg every 6 hours PRN pain or fever - Continuing to treat hepatic encephalopathy and coagulopathy - Avoid hepatically metabolized medications when appropriate ? CBC, CMP, PTT, PT/INR, Mg, and Phos AM draw - Transfuse to keep PLT >10k unless invasive procedure, 1u platelets today #Grade I non-bleeding esophageal varicies at lower third of esophagus #Hx of Grade III esophageal varicies s/p banding 06/13/24 Patient history of varices requiring banding. EGD 11/14/24 showed garde 1 varices, mucosal oozing. Plan: - Octreotide? - Protonix IV 40mg BID ? Zofran IVP 4 mg every 6 hours as needed #T2DM Patient has history of T2DM. A1c 6.0 as of 09/25/24. Hospital management: Lines: PIV Diet: NPO, concern for dysphagia iso AMS Bowel: lactulose GI prophylaxis: IV pantoprazole 40 mg BID DVT prophylaxis: SCDs Disposition: tele, CODE STATUS: FULL CODE This case was discussed with my attending physician, Dr. Glover, and senior resident, Dr Cui. Leonard Fields DO PGY I Attending Provider Attestation/Addendum I have discussed and was present for the essential components of the history, physical examination, diagnosis, and treatment plan with the resident. I agree with the patient's care as documented by the resident and amended herein by me. Dickson Glover DO. Although this document has been carefully reviewed, there may still be some phonetic and other typographical errors. These errors are purely grammatical due to imperfections in the software program and should not be construed in any way to compromise the substance of the patient's medical care during this visit.
--- NOTE | 2024-12-20 15:39 | PC.SS ---
Dr. Glover and SS met with pt and family (son, ex , and mom) for goals of care meeting. Family and pt are deciding about pt returning home with our [facility]. Bedside nurse was also present.
[2024-12-20] MEDS: OCTREOTIDE ACET INJ 1,000 MCG in SODIUM CHLORIDE 0.9% 100 ML 5.1 MCG IV (17:20)
--- NOTE | 2024-12-20 20:05 | PD.IMPROG ---
Documentation for date of: 12/20/24 Subjective Subjective Interval history: Patient evaluated Hemoglobin hematocrit 9.3 and 29.7 Will schedule the patient for a flexible sigmoidoscopy with banding of the internal hemorrhoids tomorrow Fleet enemas prior to the procedure Exam Vital Signs Temp Pulse Resp BP Pulse Ox O2 Del Method O2 Flow Rate 97.2 F 82 13 145/82 H 95 Nasal Cannula 1 12/20/24 16:00 12/20/24 19:30 12/20/24 19:30 12/20/24 16:00 12/20/24 19:30 12/20/24 16:00 12/20/24 19:30 Objective Labs 12/20/24 05:30 12/20/24 05:30 Labs: Laboratory Results - last 24 hr 12/19/24 12/19/24 12/20/24 15:09 19:19 05:30 WBC 3.2 L RBC 2.83 L Hgb 9.3 L D Hct 29.7 L MCV 105 H MCH 32.9 MCHC 31.3 RDW Std Deviation 106.8 H Plt Count 44 L D Neut % (Auto) 64 Lymph % (Auto) 23 [place] % (Auto) 8 Eos % (Auto) 4 Baso % (Auto) 1 Neut # (Auto) 2.1 Lymph # (Auto) 0.7 L [place] # (Auto) 0.3 Eos # (Auto) 0.1 Baso # (Auto) 0.0 Immature Gran # (Auto) 0.01 H Absolute Nucleated RBC 0.00 Immature Gran % 0 Nucleated RBC % 0 PT > 63.0 H* D 19.6 H D INR 2.0 H APTT 59.8 H D 41.5 H D Fibrinogen < 50 L* Sodium 150 H Potassium 4.1 Chloride 109 H Carbon Dioxide 27.7 Anion Gap 13 BUN 13 Creatinine 0.8 Estim Creat Clear Calc 64.7 eGFR > 60 BUN/Creatinine Ratio 16 Glucose 149 H Calculated Osmolality 301 H Calcium 9.8 Corrected Calcium 9.8 Phosphorus 3.8 Magnesium 2.0 Total Bilirubin 16.9 H D Direct Bilirubin 6.4 H AST 21 ALT 8 L Alkaline Phosphatase 74 Total Protein 6.4 Albumin 4.1 D Globulin 2.3 Albumin/Globulin Ratio 1.8 Misc Test Result Platelets confirmed Blood Type O Positive Antibody Screen NEGATIVE Crossmatch See Detail Blood Bank Wristband ID Yes Blood Bank Comment PLATP Ready Impressions Impression: Rectal bleeding Anemia blood loss Flexible sigmoidoscopy tomorrow for banding of the internal hemorrhoids ABG Interpretation ABG results: 12/19/24 14:51 ABG pH 7.47 H ABG pCO2 40 ABG pO2 71 L ABG HCO3 29 H ABG O2 Saturation 96 ABG Base Excess 5 H Assessment & Plan A&P Narrative Rectal bleeding most likely from the anorectal junction Monitor CBC If there is a significant drop I will do a flexible sigmoidoscopy with most likely rebanding of the anorectal junction hemorrhoids Other medical problems include End-stage liver disease secondary to alcohol with advanced portal hypertension and multiple bouts of hepatic encephalopathy Diabetes mellitus type 2 Thank you very much for the opportunity to participate in care of this patient Time Spent With Patient Time: Total time spent is greater than 50% in coordination of care (as documented) at patient's floor/unit and/or counseling patient:
[2024-12-21] VITALS (19 sets, daily range): BP systolic 117–184; BP diastolic 70–100; PULSE 79–98; RESP 10–24; TEMP 36.3–37.3; O2SAT 92–100; BMI 38.0; BMI 37.9
[2024-12-21 06:24] LABS: Basophils # (Auto) 0.0 Thou/mm3 (0.0-0.2); Basophils % (Auto) 1 % (0-2.5); Eosinophils # (Auto) 0.1 Thou/mm3 (0.0-0.5); Eosinophils % (Auto) 5 % (0-10); Hematocrit 28.6 % (36.0-46.0); Hemoglobin 8.7 g/dL (12.0-16.0); Immature Granulocytes Auto 0.00 Thou/mm3 (0.00-0.00); Lymphocytes # (Auto) 0.3 Thou/mm3 (1.0-4.8); Lymphocytes % (Auto) 14 % (10-50); Mean Corpuscular HGB Conc 30.4 g/dl (31.0-37.0); Mean Corpuscular Hemoglobin 32.7 pg (25.0-35.0); Mean Corpuscular Volume 108 fL (80-100); Monocytes # (Auto) 0.2 Thou/mm3 (0.0-0.8); Monocytes % (Auto) 9 % (0-12); Neutrophils # (Auto) 1.4 Thou/mm3 (1.8-7.7); Neutrophils % (Auto) 72 % (37-80); Nucleated Red Blood Cell # 0.00 Thou/mm3 (0.00-0.00); Nucleated Red Blood Cell % 0 /100 WBC (0); RDW Standard Deviation 108.4 fL (36.4-46.3); Red Blood Count 2.66 Miln/mm3 (4.00-5.20); White Blood Count 2.0 Thou/mm3 (3.6-11.0)
[2024-12-21 06:26] LABS: Platelet Count 24 Thou/mm3 (140-440)
[2024-12-21 06:34] LABS: INR 2.2 (0.9-1.3); Prothrombin Time 22.1 Seconds (9.0-12.2)
[2024-12-21 07:11] LABS: Alanine Aminotransferase 7 U/L (10-49); Albumin, Serum 3.8 gm/dL (3.5-5.0); Albumin/Globulin Ratio 1.6 (1.2-2.2); Alkaline Phosphatase 75 U/L (46-116); Anion Gap 11 (7-16); Aspartate Amino Transferase 20 U/L (0-34); BUN/Creatinine Ratio 19 Ratio (12-20); Bilirubin,Total 15.1 mg/dL (0.3-1.2); Blood Urea Nitrogen 19 mg/dL (9-23); Calcium 9.5 mg/dL (8.3-10.6); Calcium (Corrected) 9.7 mg/dL (8.5-10.1); Carbon Dioxide 27.8 mMol/L (20.0-31.0); Chloride 107 mMol/L (98-107); Creatinine (Component) 1.0 mg/dL (0.6-1.3); Estimated Creatinine Clearance 61.7 mL/min (>60); Globulin 2.4 gm/dL (2.3-3.5); Glucose 257 mg/dL (74-106); Magnesium 1.8 mg/dL (1.6-2.6); Osmolality,Calculated 301 (275-295); Phosphorous 3.4 mg/dL (2.4-5.1); Potassium 4.2 mMol/L (3.4-5.1); Sodium 146 mMol/L (136-145); Total Protein 6.2 gm/dL (5.7-8.2); eGFR > 60 See Note
[2024-12-21 08:42] LABS: Slide Review Platelets confirmed
--- NOTE | 2024-12-21 08:44 | PC.SS ---
Follow up note: Follow up with family about goals of care outcome. On IV antibiotic.
[2024-12-21] MEDS: PHYTONADIONE INJ 10 MG in SODIUM CHLORIDE 0.9% 50 ML 153 MG IV (10:04)
[2024-12-21] MEDS: LACTULOSE SYRUP 10 GM/15 ML 200 GM PR (10:45)
--- NOTE | 2024-12-21 10:46 | PC.CM ---
Patient is opened to [facility]. She will need new orders if she discharges to home.
[2024-12-21] MEDS: INSULIN LISPRO (AdmeLOG) 1 UNIT/0.01 ML UNIT SC ×2 (12:15→17:24)
[2024-12-21] MEDS: OCTREOTIDE ACET INJ 1,000 MCG in SODIUM CHLORIDE 0.9% 100 ML 5.1 MCG IV (13:39)
--- NOTE | 2024-12-21 13:45 | ESPR_ITS ---
<Statement entered by Rene Cui MD - 12/21/24 17:02> Patient seen and examined at bedside. I discussed and supervised with the investigator internal revenue physician who took care of this patient. I personally saw and examined the patient. I agree with most of the assessment and plan. Plan of care discussed with attending Dr. Glover. Rene Cui MD PGY-2 Documentation for date of: 12/21/24 Subjective Subjective Interval history: Patient was seen and examined at bedside. No acute events took place overnight. Patient states doing okay. Reports having bowel movements without hematochezia. Her abdominal pain is worse when sitting up. Her body tender to palpation globally. Weight [address] Culp in the evening for banding of internal hemorrhoids. As patient is only ANO x 2, lactulose would be administered as an enema. Will follow-up with the family about GOC. Exam Vital Signs Temp Pulse Resp BP Pulse Ox O2 Del Method O2 Flow Rate 97.6 F 98 24 H 146/85 H 92 L Nasal Cannula 1 12/21/24 12:00 12/21/24 12:00 12/21/24 12:00 12/21/24 12:00 12/21/24 12:00 12/21/24 12:00 12/21/24 12:00 Narrative Exam PE:? GENERAL: Alert and oriented x2, lethargic, following commands. HEENT: NC/AT, mucous membranes moist, bilateral sclera icteric CARDIOVASCULAR: regular rate and rhythm, S1/S2 present, 3/6 systolic murmur heard best at left 2nd intercostal space PULMONARY: clear to auscultation bilaterally, no rales/rhonchi/wheezes ABDOMINAL: Diffuse tenderness to palpation, no rebound/guarding. EXTREMITIES: no peripheral edema SKIN: warm and dry, intact, no rashes, jaundice, significant bruising BUE, hematoma on the flank.?? NEURO: CN II-XII grossly intact, no focal deficits, alert, following commands, +2/5 strength of BUE and BLE Objective Labs 12/21/24 05:59 12/21/24 05:59 Labs: Laboratory Results - last 24 hr 12/21/24 05:59 WBC 2.0 L RBC 2.66 L Hgb 8.7 L Hct 28.6 L MCV 108 H MCH 32.7 MCHC 30.4 L RDW Std Deviation 108.4 H Plt Count 24 L* D Neut % (Auto) 72 Lymph % (Auto) 14 [place] % (Auto) 9 Eos % (Auto) 5 Baso % (Auto) 1 Neut # (Auto) 1.4 L Lymph # (Auto) 0.3 L [place] # (Auto) 0.2 Eos # (Auto) 0.1 Baso # (Auto) 0.0 Immature Gran # (Auto) 0.00 Absolute Nucleated RBC 0.00 Immature Gran % 0 Nucleated RBC % 0 PT 22.1 H INR 2.2 H Sodium 146 H Potassium 4.2 Chloride 107 Carbon Dioxide 27.8 Anion Gap 11 BUN 19 Creatinine 1.0 Estim Creat Clear Calc 61.7 eGFR > 60 BUN/Creatinine Ratio 19 Glucose 257 H D Calculated Osmolality 301 H Calcium 9.5 Corrected Calcium 9.7 Phosphorus 3.4 Magnesium 1.8 Total Bilirubin 15.1 H D AST 20 ALT 7 L Alkaline Phosphatase 75 Total Protein 6.2 Albumin 3.8 Globulin 2.4 Albumin/Globulin Ratio 1.6 Misc Test Result Platelets confirmed ABG Interpretation ABG results: 12/19/24 14:51 ABG pH 7.47 H ABG pCO2 40 ABG pO2 71 L ABG HCO3 29 H ABG O2 Saturation 96 ABG Base Excess 5 H Quality Measures Quality Measures none Assessment & Plan Assessment Current Active Medications: Generic Name Dose Route Start Last Admin Trade Name Freq PRN Reason Stop Dose Admin Acetaminophen 325 mg 12/19/24 17:51 Acetaminophen 325 Mg Tablet PO 01/18/25 17:50 Q6H PRN Fever >101.5, or pain 1-3 Dextrose 25 ml 12/21/24 08:18 Dextrose 50%-Water Inj 50 Ml Syringe IV 01/20/25 08:17 Q15MIN PRN BG 50-70 responsive npo pt Dextrose 50 ml 12/21/24 08:18 Dextrose 50%-Water Inj 50 Ml Syringe IV 01/20/25 08:17 Q15MIN PRN BG <50 OR BG <70 & pt unresponsive Glucagon 1 mg 12/21/24 08:18 Glucagon Inj 1 Mg Vial IM Q15MIN PRN BG <70, and no IV access Ceftriaxone Sodium/Dextrose 1 gm in 50 mls @ 100 mls/hr 12/19/24 18:04 12/20/24 14:47 Rocephin/D5w 1gm Iv Premix IV 12/26/24 18:03 100 mls/hr QDAY@1400 CELINA Administration Octreotide Acetate 1,000 mcg/ 102 mls @ 5.1 mls/hr 12/20/24 15:30 12/20/24 17:20 Sodium Chloride IV 12/24/24 19:29 50 mcg/hr .Q20H CELINA 5.1 mls/hr Protocol Administration 50 MCG/HR Phytonadione 10 mg/ Sodium 51 mls @ 153 mls/hr 12/20/24 08:00 12/21/24 10:04 Chloride IV 12/22/24 07:59 153 mls/hr DAILY CELINA Administration Insulin Human Lispro 0 unit 12/21/24 11:30 12/21/24 12:15 Insulin Lispro (Admelog) 1 Unit/0.01 Ml Unit SC 01/20/25 11:29 3 unit AC CELINA Administration Protocol Lactulose 200 gm 12/21/24 09:00 12/21/24 10:45 Lactulose Syrup 10 Gm/15 Ml UT 01/20/25 08:59 200 gm DAILY CELINA Administration Protocol Midodrine 10 mg 12/19/24 22:00 12/21/24 05:30 Midodrine 5 Mg Tablet PO 01/18/25 21:59 Not Given TID CELINA Ondansetron HCl 4 mg 12/19/24 17:56 Ondansetron Inj 2 Mg/Ml Inj 2 Ml IVP 01/18/25 17:55 Q6H PRN NAUSEA OR VOMITING Protocol Pantoprazole Sodium 40 mg 12/19/24 21:00 12/21/24 09:04 Pantoprazole Inj 40 Mg Vial IVP 01/18/25 20:59 40 mg BID CELINA Administration Rifaximin 550 mg 12/19/24 21:00 12/21/24 09:05 Rifaximin 550 Mg Tablet PO 12/26/24 20:59 550 mg BID CELINA Administration Plan Hospital Course: 54-year-old female with past medical history of decompensated end stage liver disease secondary to alcohol use disorder, ascites, esophageal varices s/p banding, GI bleed, multiple admissions for hepatic encephalopathy, diabetes presented to the ED on 12/19/2024 brought by coremaker bench from home for evaluation of rectal bleeding.? She was admitted on 12/09 as a transfer back from [facility] for continuation of her care for hepatic encephalopathy and decompensated alcoholic cirrhosis. After 1 unit of FFP, PT 19.6 (63), INR 2.0 (>6.3), and PTT 41.5 (59.8). Fibrinogen <50, administered 7 units of cryoprecipitate. Had goals of care discussion, 12/20, and shared the poor prognosis of the patient based on MELD-Na 39pt, 53% estimated 3 month mortality, and Child-Paniagua scores 11, 1-3y life expectancy. Awaiting final decision after further discussion amongst themselves. GI decided to do flexible sigmoidoscopy with banding of the internal hemorrhoids, after Fleet lactulose enema. Urine and blood cultures negative after 24h. Assessment and Plan: #GI bleed #DIC possible, should be ruled out Patient was noted to have blood per rectum according to home health care social worker.? Hgb 8.7/9.3 ? GI Dr. Culp consulted, appreciate recs ? Scheduled for flexible sigmoidoscopy with banding of the internal hemorrhoids, after Fleet lactulose enemas ? Diet CLD - see below, ordered fibrinogen and D-dimer. #Fulminant Liver Failure i/s/o End-Stage Liver Disease 2/2 Alcoholic Liver Cirrhosis #Hepatic encephalopathy #Pancytopenia 2/2 likely cirrhosis #Coagulopathy #history of ascites? Patient has history of ESLD and hepatic encephalopathy with frequent hospitalizations. Per Mother, patient was diagnosed around September 2023 and this is when she stopped completely drinking alcohol as well.? MELD-Na 39pt, 53% estimated 3 month mortality, and Child-Paniagua scores 11, 1-3y life expectancy NH3 <10, BNP >3280, (trop .024),?T bili 2.1 Patient has coagulopathy due to cirrhosis. INR and PTT elevated markedly. Noted to have large bruises BUE.? Plt 26, received 1u of FFP Lasix and spironolactone on hold Fibrinogen <50 After 1 unit of FFP (12/19), PT 19.6 (63), INR 2.0 (>6.3), and PTT 41.5 (59.8). Urine and blood cultures negative after 24h Plan; - Administered 7 units of cryoprecipitate (1 unit per 10 kg of weight) ? Lactulose enema TID ? Rifaximin p.o. 550 mg twice daily ? Ceftriaxone IV 1 g daily for SBP PPx ? Neurochecks every 4 hour ? Obtain weight daily ? Strict GLADYS ? Midodrine p.o. 10 mg 3 times daily, hold for SBP >120 ? Blood smear pathology review ? Acetaminophen tab p.o. 325 mg every 6 hours PRN pain or fever - Continuing to treat hepatic encephalopathy and coagulopathy - Avoid hepatically metabolized medications when appropriate ? CBC, CMP, PTT, PT/INR, Mg, and Phos AM draw - Transfuse to keep PLT >10k unless invasive procedure, 1u platelets today #Grade I non-bleeding esophageal varicies at lower third of esophagus #Hx of Grade III esophageal varicies s/p banding 06/13/24 Patient history of varices requiring banding. EGD 11/14/24 showed garde 1 varices, mucosal oozing. Plan: - Octreotide? - Protonix IV 40mg BID ? Zofran IVP 4 mg every 6 hours as needed #T2DM Patient has history of T2DM. A1c 6.0 as of 09/25/24. Hospital management: Lines: PIV Diet: CLD, concern for dysphagia iso AMS Bowel: lactulose GI prophylaxis: IV pantoprazole 40 mg BID DVT prophylaxis: SCDs Disposition: tele, CODE STATUS: FULL CODE This case was discussed with my attending physician, Dr. Glover, and senior resident, Dr Cui. Leonard Fields DO PGY I Attending Provider Attestation/Addendum I have discussed and was present for the essential components of the history, physical examination, diagnosis, and treatment plan with the resident. I agree with the patient's care as documented by the resident and amended herein by me. Dickson Glover DO. Although this document has been carefully reviewed, there may still be some phonetic and other typographical errors. These errors are purely grammatical due to imperfections in the software program and should not be construed in any way to compromise the substance of the patient's medical care during this visit. Vital signs stable, patient afebrile overnight, significant labs include an INR of 2.2, blood glucose 301, hemoglobin stable 8.7 and a downtrend of platelets to 24. Sodium 146, T. bili 15.1. Patient did not undergo flexible sigmoidoscopy today demonstrating grade 3 internal hemorrhoids which were successfully banded, 3 in total. No biopsies were taken. CT abdomen pelvis did show a very distended gallbladder, I will repeat a gallbladder ultrasound to assess. Once we can stabilize the patient as best we can she is cleared to go home, I did have an extensive discussion with the patient's family in regards to hospice care in which they are discussing, the patient has been denied from [facility] and [facility] for liver transplant due to poor functional status, very poor prognosis which I did explain to the family and a goals of care meeting on 12/20. I also told this to the patient as well and she did understand. She did express to me at that time that she would rather be home with her children and the time she has left however has not made a final decision on hospice as of yet. Will continue to monitor closely I expect discharge in 1 to 2 days if she can remain stable. For now, we will continue lactulose, rifaximin, and midodrine, most likely will discontinue the current Protonix dosing and octreotide tomorrow. Continue to monitor closely while he is here.
[2024-12-21] MEDS: cefTRIAXone/D5w 1gm IV premix 1 GM/50 ML BAG IV (14:30)
--- NOTE | 2024-12-21 15:17 | PC.SS ---
SS met with patient and her mom regarding patient's d/c plan. Pt is alert/oriented. Pt was admitted for GI Bleed Work Up. Pt confirmed demographic and contact information is correct on facesheet. Pt resides with 2 sons. Pt transfers with assistance into wheelchair. Pt requires assistance with all ADLs. Family helps care for pt at home. Pt is currently on 2 liters of O2. Pt does not use O2 at home. Pt named her ex , Kg Saunders and mom, Bridgett Knight medical decision makers if she is unable. Patient?s choice is to return home upon d/c. Pt is followed by [facility] and Palliative Care. D/C plan: Return home Next of Kin: Kgjose francisco Saunders, ex , phone# [phone] or Bridgett Saenzdarcie Knight, mom, phone# [phone] PCP: Dr. Geoff Chandler from [facility] Address: Correct on facesheet
--- NOTE | 2024-12-21 16:20 | SUR.PHASEI ---
pt received from OR in recovery bay 1. pt asleep but responds to voice, breathing unlabored on nc 2l. v/s stable. report received from Kathryn Ortega.
--- NOTE | 2024-12-21 16:37 | SUR.PHASEI ---
1413 patient is sleepy and arousable, breathing unlabored, s/p sigmoidoscopy under IV sedation, report received form Jeremie CERON
--- NOTE | 2024-12-21 17:03 | SUR.PHASEI ---
1231 patient is awake, alert, breathing unlabored, report given to dianne otero RN, patient transferred back to room 261 with tele box
--- NOTE | 2024-12-21 19:08 | XR_ITS ---
Examination: Abdomen sonogram, Limited Date and time of exam: December 21, 2001 5, 1934 hours INDICATIONS: Abdominal pain beginning 10 days ago, diagnosis cirrhosis, distended gallbladder on CT abdomen study December 20, 2024 Technique: Real-time sifuentes scale transabdominal sonographic images of the upper abdomen obtained. Findings: Negative for gallstones Normal gallbladder wall 0.2 cm Normal common bile duct 0.3 cm Pancreatic head 3.5 cm Liver 12.2 cm irregular contour fatty infiltration no focal liver lesions Mild right pleural fluid Normal hepatopetal portal venous flow Patent IVC IMPRESSION: Negative for cholelithiasis, negative for cholecystitis Liver 12.2 cm fatty infiltration no focal liver lesions
[2024-12-22] VITALS (12 sets, daily range): BP systolic 107–135; BP diastolic 65–84; PULSE 62–94; RESP 10–94; TEMP 36.5–37.5; O2SAT 95–97
[2024-12-22] MEDS: HYDROcodone/APAP 5/325 TABLET 1 TAB PO (00:22)
[2024-12-22] MEDS: HYDROMORPHONE HCL 2 MG TABLET PO (06:27)
[2024-12-22 06:50] LABS: Basophils # (Auto) 0.0 Thou/mm3 (0.0-0.2); Basophils % (Auto) 0 % (0-2.5); Eosinophils # (Auto) 0.0 Thou/mm3 (0.0-0.5); Eosinophils % (Auto) 1 % (0-10); Hematocrit 27.9 % (36.0-46.0); Hemoglobin 8.9 g/dL (12.0-16.0); Immature Granulocytes Auto 0.02 Thou/mm3 (0.00-0.00); Lymphocytes # (Auto) 0.6 Thou/mm3 (1.0-4.8); Lymphocytes % (Auto) 13 % (10-50); Mean Corpuscular HGB Conc 31.9 g/dl (31.0-37.0); Mean Corpuscular Hemoglobin 33.2 pg (25.0-35.0); Mean Corpuscular Volume 104 fL (80-100); Monocytes # (Auto) 0.4 Thou/mm3 (0.0-0.8); Monocytes % (Auto) 9 % (0-12); Neutrophils # (Auto) 3.8 Thou/mm3 (1.8-7.7); Neutrophils % (Auto) 77 % (37-80); Nucleated Red Blood Cell # 0.00 Thou/mm3 (0.00-0.00); Nucleated Red Blood Cell % 0 /100 WBC (0); RDW Standard Deviation 103.8 fL (36.4-46.3); Red Blood Count 2.68 Miln/mm3 (4.00-5.20); White Blood Count 4.9 Thou/mm3 (3.6-11.0)
[2024-12-22 06:52] LABS: Platelet Count 32 Thou/mm3 (140-440)
[2024-12-22 07:51] LABS: Alanine Aminotransferase 8 U/L (10-49); Albumin, Serum 3.8 gm/dL (3.5-5.0); Albumin/Globulin Ratio 1.5 (1.2-2.2); Alkaline Phosphatase 73 U/L (46-116); Anion Gap 13 (7-16); Aspartate Amino Transferase 32 U/L (0-34); BUN/Creatinine Ratio 16 Ratio (12-20); Bilirubin,Total 13.9 mg/dL (0.3-1.2); Blood Urea Nitrogen 13 mg/dL (9-23); Calcium 9.7 mg/dL (8.3-10.6); Calcium (Corrected) 9.9 mg/dL (8.5-10.1); Carbon Dioxide 26.0 mMol/L (20.0-31.0); Chloride 106 mMol/L (98-107); Creatinine (Component) 0.8 mg/dL (0.6-1.3); Estimated Creatinine Clearance 76.3 mL/min (>60); Globulin 2.5 gm/dL (2.3-3.5); Glucose 185 mg/dL (74-106); Magnesium 1.6 mg/dL (1.6-2.6); Osmolality,Calculated 293 (275-295); Phosphorous 3.2 mg/dL (2.4-5.1); Potassium 4.2 mMol/L (3.4-5.1); Sodium 145 mMol/L (136-145); Total Protein 6.3 gm/dL (5.7-8.2); eGFR > 60 See Note
[2024-12-22 08:04] LABS: Slide Review Platelets confirmed
[2024-12-22] MEDS: LACTULOSE SYRUP 20 GM/30 ML UDC PO ×3 (08:06→22:47)
[2024-12-22 09:32] LABS: INR 2.8 (0.9-1.3); Prothrombin Time 27.0 Seconds (9.0-12.2)
[2024-12-22] MEDS: OCTREOTIDE ACET INJ 1,000 MCG in SODIUM CHLORIDE 0.9% 100 ML 5.1 MCG IV (10:43)
[2024-12-22] MEDS: INSULIN LISPRO (AdmeLOG) 1 UNIT/0.01 ML UNIT SC (12:51)
--- NOTE | 2024-12-22 15:13 | PC.NURSE ---
pt. in room air SpO2% 84. patient in 2L O2 SpO2% 95.
[2024-12-22] MEDS: MIDODRINE 5 MG TABLET 10 MG PO (15:38)
--- NOTE | 2024-12-22 15:38 | PC.SS ---
Per MD Glover, the patient needs to d/c with oxygen. MIRTHA called RN to complete the O2 portability test; MD to sign the oxygen order. MIRTHA completed the DME order form. RHETT Alfredo will follow up with the Nicole referral.
--- NOTE | 2024-12-22 15:47 | PC.SS ---
Informed by Dr. Glover patient will need home oxygen. Kaushik CERON informed a SPO2 Portability test needed to order DME. DME Referral submitted via [facility]; Gloria accepted. ETA for bedside delivery of DME will be 1730. Dr. Glover, OSMANY Faulkner, and SUSSY Whiteside informed of [employer] to deliver home oxygen at 1730.
--- NOTE | 2024-12-22 17:44 | ESPR_ITS ---
Documentation for date of: 12/22/24 Subjective Subjective Interval history: Patient evaluated hemoglobin hematocrit 8.9 and 27.9 Exam Vital Signs Temp Pulse Resp BP Pulse Ox O2 Del Method O2 Flow Rate 98.1 F 68 14 108/70 96 Nasal Cannula 1 12/22/24 16:00 12/22/24 16:00 12/22/24 16:00 12/22/24 16:00 12/22/24 16:00 12/22/24 16:00 12/22/24 16:00 Objective Labs 12/22/24 06:00 12/22/24 06:00 Labs: Laboratory Results - last 24 hr 12/19/24 12/22/24 12/22/24 15:09 06:00 09:05 WBC 4.9 D RBC 2.68 L Hgb 8.9 L Hct 27.9 L MCV 104 H MCH 33.2 MCHC 31.9 RDW Std Deviation 103.8 H Plt Count 32 L D Neut % (Auto) 77 Lymph % (Auto) 13 [place] % (Auto) 9 Eos % (Auto) 1 Baso % (Auto) 0 Neut # (Auto) 3.8 Lymph # (Auto) 0.6 L [place] # (Auto) 0.4 Eos # (Auto) 0.0 Baso # (Auto) 0.0 Immature Gran # (Auto) 0.02 H Absolute Nucleated RBC 0.00 Immature Gran % 0 Nucleated RBC % 0 PT 27.0 H D INR 2.8 H Sodium 145 Potassium 4.2 Chloride 106 Carbon Dioxide 26.0 Anion Gap 13 BUN 13 Creatinine 0.8 Estim Creat Clear Calc 76.3 eGFR > 60 BUN/Creatinine Ratio 16 Glucose 185 H D Calculated Osmolality 293 Calcium 9.7 Corrected Calcium 9.9 Phosphorus 3.2 Magnesium 1.6 Total Bilirubin 13.9 H D AST 32 ALT 8 L Alkaline Phosphatase 73 Total Protein 6.3 Albumin 3.8 Globulin 2.5 Albumin/Globulin Ratio 1.5 Misc Test Result Platelets confirmed Crossmatch See Detail Impressions Impression: Hepatic encephalopathy status post band ligation of the large hemorrhoids at the anorectal junction Continue current management ABG Interpretation ABG results: 12/19/24 14:51 ABG pH 7.47 H ABG pCO2 40 ABG pO2 71 L ABG HCO3 29 H ABG O2 Saturation 96 ABG Base Excess 5 H Assessment & Plan A&P Narrative Rectal bleeding most likely from the anorectal junction Monitor CBC If there is a significant drop I will do a flexible sigmoidoscopy with most likely rebanding of the anorectal junction hemorrhoids Other medical problems include End-stage liver disease secondary to alcohol with advanced portal hypertension and multiple bouts of hepatic encephalopathy Diabetes mellitus type 2 Thank you very much for the opportunity to participate in care of this patient Time Spent With Patient Time: Total time spent is greater than 50% in coordination of care (as documented) at patient's floor/unit and/or counseling patient:
--- NOTE | 2024-12-22 17:53 | ESDS_ITS ---
<Statement entered by Rene Cui MD - 12/24/24 07:34> Patient seen and examined at bedside. I discussed and supervised with the biomedical engineering internship physician who took care of this patient. I personally saw and examined the patient. I agree with most of the assessment and plan. Plan of care discussed with attending Dr. Glover. Rene Cui MD PGY-2 Planned Discharge Date 12/22/24 DS: Providers Provider Date of admission: 12/19/24 17:51 Primary care physician: Geoff Moreno MD Admitting Provider: Mateo Glover DO Attending Provider on Admission: Mateo Glover DO Consults: 12/19/24 17:20 Consult to Gastroenterology Stat Comment: Consulting Provider: Brenda Culp 12/20/24 06:27 Referral Wound Care Routine Comment: 12/21/24 10:48 Referral Nutritional Services Routine Comment: Wounds Attending Provider on DC: Mateo Glover DO Discharging Provider: Loenard Fields DO DS: Diagnosis Problem List Completed Was Problem List Reviewed/Reconciled?: Yes Hospital Course Hospital Course Hospital course: 54-year-old female with past medical history of decompensated end stage liver disease secondary to alcohol use disorder, ascites, esophageal varices s/p banding, GI bleed, multiple admissions for hepatic encephalopathy, diabetes presented to the ED on 12/19/2024 brought by wild animal caretaker from home for evaluation of rectal bleeding.?She was admitted on 12/09 as a transfer back from [facility] for continuation of her care for hepatic encephalopathy and decompensated alcoholic cirrhosis.? Fibrinogen <50, administered 7 units of cryoprecipitate. On presentation, platelets 26, and patient received 2 units of FFP. Repeat labs showed PT 19.6 (63), INR 2.0 (>6.3), and PTT 41.5 (59.8).Patient had significant coagulopathy due to cirrhosis with marked elevations in INR and PTT. Noted to have large bruises in bilateral upper extremities and abdominal flanks. Fibrinogen less than 50, and patient administered 7 units of cryoprecipitate (1 unit per 10 kg appropriate). Patient given lactulose enema 3 times daily and rifaximin p.o. 550 mg twice daily for hepatic encephalopathy. Octreotide and Protonix IV 40 mg twice daily for the management of esophageal varices at the lower third of esophagus. Also started on ceftriaxone 1 g daily for SBP prophylaxis. GI decided to do flexible sigmoidoscopy with banding of the internal hemorrhoids, after Fleet lactulose enema. Grade 3 hemorrhoids without prolapse but reducible manually were found and banded without postprocedural bl eeding. Patient remained afebrile through her hospital stay, platelet count remained stable above 20, urine and blood cultures negative. Had goals of care discussion, 12/20, and shared the poor prognosis of the patient based on MELD-Na 39pt, 53% estimated 3 month mortality, and Child-Paniagua scores 11, 1-3y life expectancy. Patient and family expressed full understanding of the poor prognosis of her clinical status. Patient remains the final decision maker, who is requesting full treatment for the time being. At the time of discharge, patient is medically stable and deemed safe to return to his/her previous state of living. Admission diagnosis: #GI bleed #DIC possible, should be ruled out #Fulminant liver failure ISO end-stage liver disease secondary to alcoholic l iver cirrhosis #Hepatic encephalopathy #Pancytopenia secondary to likely cirrhosis #Coagulopathy #History of ascites #Grade 1 nonbleeding esophageal varices at lower third of esophagus #History of grade 3 esophageal varices status post banding for 06/13/2024 #T2DM Discharge instructions: - Considering that you have end-stage liver disease, you were evaluated at tertiary care for possible liver transplant however you are a poor candidate for transplant per their evaluation, currently we recommend discussing again with your primary care physician regarding hospice care. We highly encourage you to discuss this with the rest of your family and come to a decision with your primary care physician. - Continue palliative group home health as you are already established with [facility] - Continue all your home medications as prescribed, continue furosemide and spironolactone as prescribed you. - Continue taking lactulose and rifaximin daily, make sure you have 3-4 bowel movements every day to avoid hepatic encephalopathy. - Follow-up with your primary care physician/wic site coordinator within 1 week - Return to the emergency department if your symptoms worsen This case was discussed with my attending physician, Dr. Glover, and senior resident, Dr Cui. Leonard Fields, DO PGY I Status at Discharge Overall status at discharge: patient is back to baseline Time Spent with Patient Time attestation: Total time spent providing and/or coordinating discharge services: More than 50% of the patient's total hospital stay Time spent: Greater than 30 minutes Home Health Home Health Referral Orders: 12/22/24 14:10 Home Health Referral Routine Reason For Exam: debility Home-Bound The patient must either because of illness or injury, need the aid of supportive devices such as crutches, canes, wheelchairs, and walkers; the use of special transportation; or the assistance of another person in order to leave their place of residence; OR have a condition such that leaving his or her home is medically contraindicated. In addition, the patient also meets the following criteria: patient is normally unable to leave the home and leaving home requires considerable taxing effort. Addendum to Home Health Certification Practitioner's Certification: I certify that the patient has been under my care in the hospital and the care of attending physician (see below). We had a [id number] encounter on (see date below). My clinical findings indicate that the patient is home bound per the above criteria and the Home Health Services noted in these orders are medically necessary. The primary reason for the [id number] encounter is related to the fact that the patient requires home health services. Date Certifying [id number] Physician Encounter: 12/19/24 Physician's Name who will Assume Oversight for Services: Geoff Moreno VENDOR MANAGEMENT SPECIALIST - Community Resources: No PT to Evaluate: No PT to evaluate and provide a treatmnet plan to increase patient's mobility and strength. Wound Care: No IV Therapy: No RN Safety Evaluation: No RN to evaluate and create a plan of care that will produce positive outcomes. Palliative Treatment: Yes Palliative treatment and evaluate the need for hospice. Home Health Aide - Personal Care: Yes Home Health Aide to assist with any ADL's. Exam Vital Signs Temp Pulse Resp BP Pulse Ox O2 Del Method O2 Flow Rate 98.1 F 68 14 108/70 96 Nasal Cannula 1 12/22/24 16:00 12/22/24 16:00 12/22/24 16:00 12/22/24 16:00 12/22/24 16:00 12/22/24 16:00 12/22/24 16:00 Narrative Exam GENERAL: Alert and oriented x2, lethargic, following commands. HEENT: NC/AT, mucous membranes moist, bilateral sclera icteric CARDIOVASCULAR: regular rate and rhythm, S1/S2 present, 3/6 systolic murmur heard best at left 2nd intercostal space PULMONARY: clear to auscultation bilaterally, no rales/rhonchi/wheezes ABDOMINAL: Diffuse tenderness to palpation, no rebound/guarding. EXTREMITIES: no peripheral edema SKIN: warm and dry, intact, no rashes, jaundice, significant bruising BUE, hematoma on the flank.?? NEURO: CN II-XII grossly intact, no focal deficits, alert, following commands, +2/5 strength of BUE and BLE Discharge Plan Plan Patient Disposition: Home w/HOME HEALTH Patient condition on transfer: Stable Care Plan Goals: - Considering that you have end-stage liver disease, you were evaluated at tertiary care for possible liver transplant however you are a poor candidate for transplant per their evaluation, currently we recommend discussing again with your primary care physician regarding hospice care. We highly encourage you to discuss this with the rest of your family and come to a decision with your primary care physician. - Continue palliative group home health as you are already established with [facility] - Continue all your home medications as prescribed, continue furosemide and spironolactone as prescribed you. - Continue taking lactulose and rifaximin daily, make sure you have 3-4 bowel movements every day to avoid hepatic encephalopathy. - Follow-up with your primary care physician/wic site coordinator within 1 week - Return to the emergency department if your symptoms worsen Stage 3 over sacrum and bilateral buttocks (clustered): cleanse with wound cleanser, pat dry, apply calcium alginate to wound beds. Skin prep to wound edges and secure with allyven dressing daily and PRN for soiling. Side to side repositioning except for meals, no briefs if possible. Prevention of skin breakdown over bilateral heels: negative heel pressure bilaterally Prescriptions/Referrals Prescriptions/Med Rec: Continued pantoprazole 40 mg tablet,delayed release (DR/EC) 40 mg PO QDAY 30 Days Qty: 30 2RF Rx Instructions: Take one tablet by mouth every day before food mirtazapine [Remeron] 30 mg tablet 30 mg PO QHS 30 Days Qty: 30 1RF Rx Instructions: Take one tablet by mouth at bedtime Xifaxan 550 mg tablet 550 mg PO BID 30 Days Qty: 60 2RF Rx Instructions: Take one tablet by mouth twice a day methocarbamol 750 mg tablet 750 mg PO BID 30 Days Qty: 60 2RF Rx Instructions: Take one tablet by mouth twice a day (DME) lancets [FreeStyle Lancets] 28 gauge misc See Rx Instructions .Route Qty: 100 5RF Rx Instructions: Use TID and PRN As directed (DME) Freestyle InsuLinx Test Strips Strip See Rx Instructions .Route Qty: 100 5RF Rx Instructions: Test TID and PRN As directed (DME) lancets [Acti-Petar Lancets] 28 gauge misc See Rx Instructions .Route Qty: 100 2RF Rx Instructions: As directed (DME) Accu-Chek Idania Plus test strp Strip See Rx Instructions .Route Qty: 100 2RF Rx Instructions: As directed (DME) blood-glucose meter [FreeStyle Baudette Lite] Kit See Rx Instructions .Route Qty: 1 0RF Rx Instructions: As directed ascorbic acid (vitamin C) [Vitamin C] 250 mg Tablet 500 mg PO QDAY 30 Days Qty: 60 0RF furosemide 20 mg Tablet 20 mg PO QAM Qty: 60 0RF cholecalciferol (vitamin D3) 10 mcg (400 unit) Tablet 10 mcg PO QDAY 30 Days Qty: 30 0RF zinc sulfate 50 mg zinc (220 mg) Capsule 220 mg PO QDAY 30 Days Qty: 132 0RF spironolactone 50 mg tablet 50 mg PO DAILY midodrine 10 mg tablet 10 mg PO Q8H lactulose 10 gram/15 mL solution 20 g PO TID Qty: 1200 0RF Patient Comments: TAKE 45 MLS BY MOUTH 3 TIMES A DAY hydrocodone-acetaminophen 5-325 mg tablet 1 tab PO Q6H MDD 4 tablets in one day PRN (Reason: pain) 3 Days Qty: 12 0RF Rx Instructions: Take one tablet by mouth up to every 6 hours Discontinued metformin 1,000 mg tablet 1,000 mg PO QDAY Patient Comments: TAKE 1 1/2 TABLETS BY MOUTH ONCE A DAY Referrals: Geoff Moreno MD [Primary Care Provider, Internal Medicine] Patient/Caregiver Discharge Instructions Discharge Activity: activity as tolerated Other Discharge Activity Instructions:: Considering that you have end-stage liver disease, you were evaluated at tertiary care for possible liver transplant however you are a poor candidate for transplant per their evaluation, currently we recommend discussing again with your primary care physician regarding hospice care. We highly encourage you to discuss this with the rest of your family and come to a decision with your primary care physician. - Continue palliative group home health as you are already established with [facility] - Continue all your home medications as prescribed, continue furosemide and spironolactone as prescribed you. - Continue taking lactulose and rifaximin daily, make sure you have 3-4 bowel movements every day to avoid hepatic encephalopathy. - Follow-up with your primary care physician/wic site coordinator within 1 week - Return to the emergency department if your symptoms worsen Stage 3 over sacrum and bilateral buttocks (clustered): cleanse with wound cleanser, pat dry, apply calcium alginate to wound beds. Skin prep to wound edges and secure with allyven dressing daily and PRN for soiling. Side to side repositioning except for meals, no briefs if possible. Prevention of skin breakdown over bilateral heels: negative heel pressure bilaterally Education Materials: Bleeding Gastrointestinal, What Is Palliative Care?, Acute Kidney Failure Dc Print Language: Thai Stand Alone Forms: Mervat Award Info., Patient Portal Info Letter Discharge Order Discharge Orders: Discharge (Routine); Ordered 12/23/24 Ordered By: Jero Wilkins Quality Discharge Quality Measures VTE prophylaxis Attestestation Attestation Patient not discharged today as expected, likely DC home tomorrow with home health
--- NOTE | 2024-12-22 21:26 | PC.NURSE ---
discontinued sandostatin drip per md order, saline locked iv.
[2024-12-23] VITALS: BP 123/76; PULSE 60; PULSE 65; RESP 19; TEMP 37.1; O2SAT 96
[2024-12-23 04:00] VITALS: BP 120/86; PULSE 67; RESP 13; TEMP 37.1; O2SAT 96
[2024-12-23 04:30] VITALS: PULSE 71
[2024-12-23 04:56] VITALS: BMI 38.0
[2024-12-23] MEDS: LACTULOSE SYRUP 20 GM/30 ML UDC PO (05:30)
[2024-12-23 05:36] VITALS: BP 124/94; PULSE 67
[2024-12-23 08:00] VITALS: BP 130/84; PULSE 74; PULSE 83; RESP 10; TEMP 36.8; O2SAT 94
--- NOTE | 2024-12-23 09:43 | PC.SS ---
Addendum entered by Sayda Cardona 12/23/24 11:31: Patient's mother requested SS inform JOSE of [place] for follow up. [phone]man, spoke to Rashad. He explained their office to follow up with patient and family 12/24/24 for [facility]- Palliative care. Addendum entered by Sayda Cardona 12/23/24 11:27: [facility] obtained. Patient and family informed transportation to be covered this time. [facility] scheduled transportation for 1400. [facility] [phone] contacted to confirm gurney transportation availability, Cleo declined. Stated she'd contact [phone] if anything comes available. Addendum entered by Sayda Cardona 12/23/24 10:39: SS met with patient Elzbieta and her mother Bridgett. Both confirmed they would like for patient to return home as originally planned. Patient and mother requesting gurney transportation at this time, unable to cover cost of ambulance. [employer] to be contacted to confirm transportation coverage. Original Note: SS received call from OSMANY Cassidy regarding patient's discharge plan, family requesting update on transportation and information on discharge plan. Per OSMANY Cassidy, family voicing they are unable to provide care for patient. SS informed OSMANY Cassidy discharge plan was to go home and home oxygen was delivered at bedside 12/22/24. SS to follow up with patient.
[2024-12-23] MEDS: ACETAMINOPHEN 325 MG TABLET PO (10:59)
[2024-12-23] MEDS: INSULIN LISPRO (AdmeLOG) 1 UNIT/0.01 ML UNIT SC (11:52)
[2024-12-23 12:00] VITALS: BP 125/78; BP 134/83; PULSE 74; PULSE 77; PULSE 88; RESP 14; RESP 18; TEMP 36.6; TEMP 37.1; O2SAT 94; O2SAT 96
--- NOTE | 2024-12-23 12:36 | ESDS_ITS ---
Planned Discharge Date 12/23/24 DS: Providers Provider Date of admission: 12/19/24 17:51 Primary care physician: Geoff Moreno MD Admitting Provider: Mateo Glover DO Attending Provider on Admission: Mateo Glover DO Consults: 12/19/24 17:20 Consult to Gastroenterology Stat Comment: Consulting Provider: Brenda Culp 12/20/24 06:27 Referral Wound Care Routine Comment: 12/21/24 10:48 Referral Nutritional Services Routine Comment: Wounds Attending Provider on DC: Mateo Glover DO Discharging Provider: Mateo Glover DO Anticipated date of discharge: 12/23/24 DS: Diagnosis Problem List Completed Was Problem List Reviewed/Reconciled?: Yes Hospital Course Hospital Course Hospital course: Patient's discharge was held yesterday as patient was pending home health renewal. Patient seen today, he is stable no active issues alert and oriented x 3 and is stable for discharge, requesting [place] refill, will be discharged on 3 days of [place]. Discharge summary as below. 54-year-old female with past medical history of decompensated end stage liver disease secondary to alcohol use disorder, ascites, esophageal varices s/p banding, GI bleed, multiple admissions for hepatic encephalopathy, diabetes presented to the ED on 12/19/2024 brought by mitochondrial disorders counselor from home for evaluation of rectal bleeding.?She was admitted on 12/09 as a transfer back from [facility] for continuation of her care for hepatic encephalopathy and decompensated alcoholic cirrhosis.? Fibrinogen <50, administered 7 units of cryoprecipitate. On presentation, platelets 26, and patient received 2 units of FFP. Repeat labs showed PT 19.6 (63), INR 2.0 (>6.3), and PTT 41.5 (59.8). Patient had significant coagulopathy due to cirrhosis with marked elevations in INR and PTT. Noted to have large bruises in bilateral upper extremities and abdominal flanks. Fibrinogen less than 50, and patient administered 7 units of cryoprecipitate (1 unit per 10 kg appropriate). Patient given lactulose enema 3 times daily and rifaximin p.o. 550 mg twice daily for hepatic encephalopathy. Octreotide and Protonix IV 40 mg twice daily for the management of esophageal varices at the lower third of esophagus. Also started on ceftriaxone 1 g daily for SBP prophylaxis. GI decided to do flexible sigmoidoscopy with banding of the internal hemorrhoids, after Fleet lactulose enema. Grade 3 hemorrhoids without prolapse but reducible manually were found and banded without postprocedural bleeding. Patient remained afebrile through her hospital stay, platelet count remained stable above 20, urine and blood cultures negative. Had goals of care discussion, 12/20, and shared the poor prognosis of the patient based on MELD-Na 39pt, 53% estimated 3 month mortality, and Child-[place] scores 11, 1-3y life expectancy. Patient and family expressed full understanding of the poor prognosis of her clinical status. Patient remains the final decision maker, who is requesting full treatment for the time being. At the time of discharge, patient is medically stable and deemed safe to return to his/her previous state of living. Patient will be discharged on home health with palliative care. Admission diagnosis: #GI bleed, lower, grade 3 hemorrhoids status post banding #Advanced coagulopathy in setting of decompensated liver disease #Fulminant liver failure ISO end-stage liver disease secondary to alcoholic liver cirrhosis #Hepatic encephalopathy grade 1-2 #Pancytopenia secondary to likely cirrhosis #Suspected DIC #History of ascites #Grade 1 nonbleeding esophageal varices at lower third of esophagus, by history #History of grade 3 esophageal varices status post banding for 06/13/2024 # Type 2 diabetes mellitus, by history Discharge instructions: - Considering that you have end-stage liver disease, you were evaluated at tertiary care for possible liver transplant however you are a poor candidate for transplant per their evaluation, currently we recommend discussing again with your primary care physician regarding hospice care. We highly encourage you to discuss this with the rest of your family and come to a decision with your primary care physician. - Continue palliative senior care health as you are already established with [facility] health - Continue all your home medications as prescribed, continue furosemide and spironolactone as prescribed you. - Continue taking lactulose and rifaximin daily, make sure you have 3-4 bowel movements every day to avoid hepatic encephalopathy. - Follow-up with your primary care physician/covered buckle assembler within 1 week - Return to the emergency department if your symptoms worsen Case discussed with Attending Physician Dr. Mateo Glover, DO Jero Wilkins MD Internal Medicine PGY-2 Disclaimer: This note was dictated by speech recognition. Minor errors in mobile therapist may be present due to voice recognition software. Status at Discharge Functional status at discharge: bed bound Overall status at discharge: other (Patient has poor prognosis, recommended outpatient goals of care discussion with PCP) Time Spent with Patient Time attestation: Total time spent providing and/or coordinating discharge services: Time spent: Greater than 30 minutes Home Health Home Health Referral Orders: 12/22/24 14:10 Home Health Referral Routine Reason For Exam: debility Home-Bound The patient must either because of illness or injury, need the aid of supportive devices such as crutches, canes, wheelchairs, and walkers; the use of special transportation; or the assistance of another person in order to leave their place of residence; OR have a condition such that leaving his or her home is medically contraindicated. In addition, the patient also meets the following criteria: patient is normally unable to leave the home and leaving home requires co nsiderable taxing effort. Addendum to Home Health Certification Practitioner's Certification: I certify that the patient has been under my care in the hospital and the care of attending physician (see below). We had a [id number]-[id number] encounter on (see date below). My clinical findings indicate that the patient is home bound per the above criteria and the Home Health Services noted in these orders are medically necessary. The primary reason for the [id number] encounter is related to the fact that the patient requires home health services. Date Certifying Debq-ot-[id number] Physician Encounter: 12/19/24 Physician's Name who will Assume Oversight for Services: Geoff Moreno [facility] [place] - Community Resources: No PT to Evaluate: No PT to evaluate and provide a treatmnet plan to increase patient's mobility and strength. Wound Care: No IV Therapy: No RN Safety Evaluation: No RN to evaluate and create a plan of care that will produce positive outcomes. Palliative Treatment: Yes Palliative treatment and evaluate the need for hospice. Home Health Aide - Personal Care: Yes Home Health Aide to assist with any ADL's. Exam Vital Signs Temp Pulse Resp BP Pulse Ox O2 Del Method O2 Flow Rate 98.3 F 74 10 L 130/84 94 L Nasal Cannula 1 12/23/24 08:00 12/23/24 08:00 12/23/24 08:00 12/23/24 08:00 12/23/24 08:00 12/23/24 08:00 12/23/24 08:00 Narrative Exam GENERAL: Alert and oriented x3, lethargic, following commands. HEENT: NC/AT, mucous membranes moist, bilateral sclera icteric CARDIOVASCULAR: regular rate and rhythm, S1/S2 present, 3/6 systolic murmur heard best at left 2nd intercostal space PULMONARY: clear to auscultation bilaterally, no rales/rhonchi/wheezes ABDOMINAL: Diffuse tenderness to palpation, no rebound/guarding. EXTREMITIES: Mild bilateral peripheral edema SKIN: warm and dry, intact, no rashes, jaundice, significant bruising BUE, hematoma on the flank.?? NEURO: CN II-XII grossly intact, no focal deficits, alert, following commands, +2/5 strength of BUE and BLE Discharge Plan Plan Patient Disposition: Home w/HOME HEALTH Patient condition on transfer: Stable Care Plan Goals: - Considering that you have end-stage liver disease, you were evaluated at tertiary [facility] for possible liver transplant however you are a poor candidate for transplant per their evaluation, currently we recommend discussing again with your primary care physician regarding hospice care. We highly encourage you to discuss this with the rest of your family and come to a decision with your primary care physician. - Continue palliative senior care health as you are already established with [facility] - Continue all your home medications as prescribed, continue furosemide and spironolactone as prescribed you. - Continue taking lactulose and rifaximin daily, make sure you have 3-4 bowel movements every day to avoid hepatic encephalopathy. - Follow-up with your primary care physician/covered buckle assembler within 1 week - Return to the emergency department if your symptoms worsen Stage 3 over sacrum and bilateral buttocks (clustered): cleanse with wound cleanser, pat dry, apply calcium alginate to wound beds. Skin prep to wound edges and secure with allyven dressing daily and PRN for soiling. Side to side repositioning except for meals, no briefs if possible. Prevention of skin breakdown over bilateral heels: negative heel pressure bilaterally Prescriptions/Referrals Prescriptions/Med Rec: Continued pantoprazole 40 mg tablet,delayed release (DR/EC) 40 mg PO QDAY 30 Days Qty: 30 2RF Rx Instructions: Take one tablet by mouth every day before food mirtazapine [Remeron] 30 mg tablet 30 mg PO QHS 30 Days Qty: 30 1RF Rx Instructions: Take one tablet by mouth at bedtime Xifaxan 550 mg tablet 550 mg PO BID 30 Days Qty: 60 2RF Rx Instructions: Take one tablet by mouth twice a day methocarbamol 750 mg tablet 750 mg PO BID 30 Days Qty: 60 2RF Rx Instructions: Take one tablet by mouth twice a day (DME) lancets [FreeStyle Lancets] 28 gauge misc See Rx Instructions .Route Qty: 100 5RF Rx Instructions: Use TID and PRN As directed (DME) Freestyle [employer]su[employer] Test Strips Strip See Rx Instructions .Route Qty: 100 5RF Rx Instructions: Test TID and PRN As directed (DME) lancets [Acti-Petar Lancets] 28 gauge misc See Rx Instructions .Route Qty: 100 2RF Rx Instructions: As directed (DME) Accu-Chek Idania Plus test strp Strip See Rx Instructions .Route Qty: 100 2RF Rx Instructions: As directed (DME) blood-glucose meter [FreeStyle [place] Lite] Kit See Rx Instructions .Route Qty: 1 0RF Rx Instructions: As directed ascorbic acid (vitamin C) [Vitamin C] 250 mg Tablet 500 mg PO QDAY 30 Days Qty: 60 0RF furosemide 20 mg Tablet 20 mg PO QAM Qty: 60 0RF cholecalciferol (vitamin D3) 10 mcg (400 unit) Tablet 10 mcg PO QDAY 30 Days Qty: 30 0RF zinc sulfate 50 mg zinc (220 mg) Capsule 220 mg PO QDAY 30 Days Qty: 132 0RF spironolactone 50 mg tablet 50 mg PO DAILY midodrine 10 mg tablet 10 mg PO Q8H lactulose 10 gram/15 mL solution 20 g PO TID Qty: 1200 0RF Patient Comments: TAKE 45 MLS BY MOUTH 3 TIMES A DAY hydrocodone-acetaminophen 5-325 mg tablet 1 tab PO Q6H MDD 4 tablets in one day PRN (Reason: pain) 3 Days Qty: 12 0RF Rx Instructions: Take one tablet by mouth up to every 6 hours Discontinued metformin 1,000 mg tablet 1,000 mg PO QDAY Patient Comments: TAKE 1 1/2 TABLETS BY MOUTH ONCE A DAY Referrals: Geoff Moreno MD [Primary Care Provider, Internal Medicine] Patient/Caregiver Discharge Instructions Discharge Activity: activity as tolerated Other Discharge Activity Instructions:: Considering that you have end-stage liver disease, you were evaluated at tertiary [facility] for possible liver transplant however you are a poor candidate for transplant per their evaluation, currently we recommend discussing again with your primary care physician regarding hospice care. We highly encourage you to discuss this with the rest of your family and come to a decision with your primary care physician. - Continue palliative senior care health as you are already established with [facility] - Continue all your home medications as prescribed, continue furosemide and spironolactone as prescribed you. - Continue taking lactulose and rifaximin daily, make sure you have 3-4 bowel movements every day to avoid hepatic encephalopathy. - Follow-up with your primary care physician/covered buckle assembler within 1 week - Return to the emergency department if your symptoms worsen Stage 3 over sacrum and bilateral buttocks (clustered): cleanse with wound cleanser, pat dry, apply calcium alginate to wound beds. Skin prep to wound edges and secure with allyven dressing daily and PRN for soiling. Side to side repositioning except for meals, no briefs if possible. Prevention of skin breakdown over bilateral heels: negative heel pressure bilaterally Education Materials: Bleeding Gastrointestinal, What Is Palliative Care?, Acute Kidney Failure Dc Print Language: Eritrean Stand Alone Forms: Mervat Award Info., Patient Portal Info Letter Discharge Order Discharge Orders: Discharge (Routine); Ordered 12/23/24 Ordered By: Jero Wilkins Quality Discharge Quality Measures none MD Attestestation MD Attestation I have discussed and was present for the essential components of the discharge history, physical examination, diagnosis, and discharge treatment plan with the resident. I agree with the patient's discharge care as documented by the resident and amended herein by me. Dickson Glover DO. The patient understood all discharge instructions, all questions were answered satisfactorily. The patient was instructed to return to the Emergency Department is symptoms worsened or persisted. Although this document has been carefully reviewed, there may still be some phonetic and other typographical errors. These errors are purely grammatical due to imperfections in the software program and should not be construed in any way to compromise the substance of the patient's medical care during this visit.
--- NOTE | 2024-12-23 20:34 | PD.IMPROG ---
Documentation for date of: 12/23/24 Subjective Subjective Interval history: Late entry for the note Okay with discharge planning No bleeding since the banding of the hemorrhoid yesterday at 8.9 and 27.1 Patient still wants full treatment Which is fine Exam Vital Signs Temp Pulse Resp BP Pulse Ox O2 Del Method O2 Flow Rate 97.8 F 88 18 134/83 H 96 Nasal Cannula 1 12/23/24 12:00 12/23/24 12:00 12/23/24 12:00 12/23/24 12:00 12/23/24 12:00 12/23/24 12:00 12/23/24 12:00 Objective Labs 12/22/24 06:00 12/22/24 06:00 Impressions Impression: Cirrhotic liver disease secondary to alcohol although patient has not drank for close to 18 months Okay to discharge to be followed by the PCP ABG Interpretation ABG results: 12/19/24 14:51 ABG pH 7.47 H ABG pCO2 40 ABG pO2 71 L ABG HCO3 29 H ABG O2 Saturation 96 ABG Base Excess 5 H Assessment & Plan A&P Narrative Rectal bleeding most likely from the anorectal junction Monitor CBC If there is a significant drop I will do a flexible sigmoidoscopy with most likely rebanding of the anorectal junction hemorrhoids Other medical problems include End-stage liver disease secondary to alcohol with advanced portal hypertension and multiple bouts of hepatic encephalopathy Diabetes mellitus type 2 Thank you very much for the opportunity to participate in care of this patient Time Spent With Patient Time: Total time spent is greater than 50% in coordination of care (as documented) at patient's floor/unit and/or counseling patient:
== END 2024-12-23 14:25 | disposition home health service (06) | DRG 226 ==
LOC: SERX 17:56 → SERHOLD 18:24 → S2NX 20:24
PROVIDERS: Specialist; Admitting Provider Student in an Organized Health Care Education/Training Program; Emergency Provider Emergency Medicine; PCP Student in an Organized Health Care Education/Training Program; Visit Provider Student in an Organized Health Care Education/Training Program
PROC: 0DJD8ZZ Inspection of Lower Intestinal Tract, Via Natural or Artificial Opening Endoscopic (ICD-10-PCS; CPT 45330; principal; 2024-12-21 17:30)
DX: K64.2 Third degree hemorrhoids (principal); E11.9 Type 2 diabetes mellitus without complications; K72.10 Chronic hepatic failure without coma; K70.31 Alcoholic cirrhosis of liver with ascites; K76.82 Hepatic encephalopathy; D61.818 Other pancytopenia; D68.4 Acquired coagulation factor deficiency; E87.0 Hyperosmolality and hypernatremia; I85.11 Secondary esophageal varices with bleeding; K76.6 Portal hypertension; D50.0 Iron deficiency anemia secondary to blood loss (chronic); Z79.84 Long term (current) use of oral hypoglycemic drugs; Z51.5 Encounter for palliative care; Z76.82 Awaiting organ transplant status; Z79.899 Other long term (current) drug therapy; Z91.040 Latex allergy status; F10.10 Alcohol abuse, uncomplicated
CPT/HCPCS: 36415; 36600; 70450; 71045; 74177; 76705; 80053; 80307; 80320; 81001; 82140; 82248; 82803; 83605; 83690; 83735; 83880; 84100; 84145; 84484; 85025; 85379; 85384; 85610; 85730; 86850; 86900; 86901; 86923; 86927; 86965; 87040; 87081; 87086; 93005; 96361; 96365; 96375; 99284; A4649; J0696; J1200; J1815; J2250; J2270; J2354; J2470; J3010; J3430; J3475; J7030; J7050; P9012; P9035; P9060; Q9967; A9270; G0480

== ENCOUNTER 2025-01-02 13:49 | Outpatient (AMB) | payer MEDICAID, SELFPAY ==
--- NOTE | 2025-01-02 13:51 | PD.RESCLINIC ---
Allergies/Meds Allergies & Medications Allergies latex Allergy (Severe, Verified 01/21/25 22:57) Hives Medication Reconciliation blood sugar diagnostic (Accu-Chek Idania Plus test strips) #100 ea 07/23/24 [Rx Confirmed 01/02/25] lancets 28 gauge (Acti-Petar Lancets) #100 ea 07/23/24 [Rx Confirmed 01/02/25] blood-glucose meter (FreeStyle [place] Lite kit) #1 ea 08/10/24 [Rx Confirmed 01/02/25] mirtazapine 30 mg tablet (Remeron) 30 mg PO QHS 1 month #30 tabs 09/10/24 [Rx Confirmed 01/02/25] pantoprazole 40 mg tablet,delayed release 40 mg PO QDAY 1 month #30 tabs 09/10/24 [Rx Confirmed 01/02/25] blood sugar diagnostic (Freestyle InsuLinx Test Strips) #100 ea 10/01/24 [Rx Confirmed 01/02/25] lancets 28 gauge (FreeStyle Lancets) #100 ea 10/01/24 [Rx Confirmed 01/02/25] methocarbamol 750 mg tablet 750 mg PO BID 1 month #60 tabs 10/01/24 [Rx Confirmed 01/02/25] rifaximin 550 mg tablet (Xifaxan) 550 mg PO BID 1 month #60 tabs 10/01/24 [Rx Confirmed 01/02/25] spironolactone 50 mg tablet 50 mg PO DAILY 10/11/24 [History Confirmed 01/02/25] midodrine 10 mg tablet 10 mg PO Q8H 11/14/24 [History Confirmed 01/02/25] lactulose 10 gram/15 mL oral solution 20 g (30 mL) PO TID #1,200 mL 11/21/24 [Rx Confirmed 01/02/25] furosemide 20 mg tablet 20 mg PO QAM #60 tabs 12/10/24 [Rx Confirmed 01/02/25] hydrocodone 5 mg-acetaminophen 325 mg tablet 1 tab PO Q6H PRN pain 3 days #12 tabs 12/23/24 [Rx Confirmed 01/02/25] MA Intake Visit Data Collection Pain Present Currently: Yes Pain scale:: 6 PCP or OBGYN visit in last 3 months: Yes Smoking Status Smoking Status: Never smoker For Televisit only Telemed Video/Phone Visit: Yes Verbal consent obtained for Telemed visit?: Yes Verbal Consent witness name: LEONEL Telemed Video/Phone visit w/Clinical Staff: 21-30 min Immunization / Flu Flu Vaccine in the Last 12 Months: No Flu Vaccine Exclusion Criteria: Refused by Patient Past Medical History Past Medical History NEUROLOGIC: Positive Neurological Disorders, Migraine and Spinal Cord Injury; Negative Seizures CARDIAC: Positive Hypotension; Negative Cardiac Disorders or Congestive Heart Failure RESPIRATORY: Negative Chronic Obstructive Pulmonary Disease (COPD) or Asthma GASTROINTESTINAL: Positive Gastrointestinal Disorders, Cirrhosis, Gastrointestinal Bleed, Esophageal Varices and Hemorrhoids GENITOURINARY: Positive Genitourinary Disorders and Renal Disease REPRODUCTIVE: Positive Endometriosis and Previous Pregnancies ENDOCRINE: Positive Endocrine Disorders and Diabetes Mellitus Type 2; Negative Diabetes Mellitus Type 1 HEMATOLOGIC: Positive Blood Disorders and Anemia; Negative Sickle Cell Disease PSYCHO/SOCIAL: Positive Depression and Anxiety OTHER HISTORY: Positive Blood Transfusions, Chicken Pox and Measles; Negative Autoimmune Disease, Blood Transfusion Reaction, Anesthesia Reactions or Cancer Family History FAMILY HISTORY: Positive Family Psychiatric Problems and Family Cancer; Negative Family Respiratory Disorders, Family Cardiac Disorders, Family Gastrointestinal Problems, Family Surgery or Family Anesthesia Reaction Surgical History SURGICAL: Positive Abdominal Surgery and Section Social History SMOKING STATUS: Smoking status: Never smoker SECOND HAND EXPOSURE: second hand exposure: No ALCOHOL: Alcohol Intake: Former ALCOHOL FREQUENCY: Alcohol Intake Frequency: 3 or More Drinks per Day HOUSING: Housing: House LIVES WITH: Lives With: Children Patient Portal Questionaires PHQ-9 PHQ-2 Over the last 2 weeks, how often have you been bothered by any of the following problems? 1. Little interest or pleasure in doing things: not at all PHQ-9 8. Moving or speaking so slowly that other people could have noticed? - Or the opposite - being so fidgety or restless that you have been moving around a lot more than usual: not at all Source: Developed by Drs. Shady Eli, Pilar Brunson, Jordan Worthy and colleagues, with an educational viry from [employer]. Social History Living Situation History Housing: House Housing Other:: Pt lives with 2 sons Tobacco History Smoking Status: Never smoker Second Hand Smoke Exposure: No Alcohol History Alcohol Intake: Former Alcohol Intake Frequency: 3 or More Drinks per Day Alcohol Intake Frequency Other:: 5 drinks a day Review of Systems Report any current symptoms Only answer those that you have currently: Past Medical History Past Medical History Have you ever been diagnosed with any of the following: Neurological Problems Seizures: No Migraine: Yes Spinal Cord Injury: Yes Cardiology Problems Congestive Heart Failure: No Hypotension: Yes Respiratory Problems Chronic Obstructive Pulmonary Disease (COPD): No Asthma: No Stomache/Intestinal Problems Cirrhosis: Yes Gastrointestinal Bleed: Yes Esophageal Varices: Yes Hemorrhoids: Yes Genital/Urinary Problems Renal Disease: Yes Reproductive Problems Endometriosis: Yes Previous Pregnancies: Yes Endocrine Problems Diabetes Mellitus Type 1: No Diabetes Mellitus Type 2: Yes Blood Problems Anemia: Yes Sickle Cell Disease: No Psychologic Problems Depression: Yes Anxiety: Yes Other Problems Autoimmune Disease: No Blood Transfusions: Yes Blood Transfusion Reaction: No Anesthesia Reactions: No Chicken Pox: Yes Measles: Yes Cancer: No History of Present Illness HPI Narrative 10/22/2024: Patient is a known patient returning to the clinic. She was recently discharged from the hospital for hepatic encephalopathy. Patient is well known to have decompensated liver disease due to extensive alcohol use history. Does also have a history of esophageal varices that required band ligation via EGD in the past. Today the patient feels well and has no acute complaints. Does note that she has low blood pressures, but has not become symptomatic from it. Is complaint with medications and takes lactulose to achieve 2-3 bowel movements daily. She plans for appointment with a liver specialist in [place] on November 29. Will have patient f/u in 3 weeks and recheck CMP and magnesium. Prescribed patient magnesium oxide 400 mg daily as she had hypomagnesemia during most recent hospitalization. Refilled [place]. 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 Had goals of care discussion with her during last hospital visit regarding her poor prognosis. Patient is the final decision maker and reports that for full treatment. Televisit today for follow-up from the hospital admission. Reported that she continued to take lactulose and other medications that she was discharged from the hospital. Still complaining of abdominal pain. Patient appears to be very tired and mother at the bedside is giving most of history. Noted to have slurred speech, likely from her hepatic encephalopathy. Requested for opioids. But in the setting of worsening liver disease and hepatic encephalopathy, recommended to take NSAIDs as needed. Mother endorsed that they are looking for hospice options and will follow-up with the hospice centers. Recommended to have labs within 3 weeks and follow-up in the clinic Review of Systems Review of Systems Systems Reviewed: All systems reviewed, normal except as documented Assessment & Plan Diagnosis / Problem List (1) Cirrhosis: Status: Acute Qualifiers: Hepatic cirrhosis type: alcoholic cirrhosis Ascites presence: without ascites Qualified Code(s): K70.30 - Alcoholic cirrhosis of liver without ascites Assessment & Plan: Secondary to extensive history of alcohol abuse, cessation since 2023. History of variceal bleed s/p banding and recurrent episodes of hepatic encephalopathy. T bili since last admission 09/28 downtrending towards baseline. Previously scheduled to see engine designer on 09/28/24 however lost follow up due to admission. Plan: - Continue Rifaxmin 550 mg daily - Continue Lactulose ( 2-3 BMs a day) 30 grams TID for goal of 2-3 bowel movements daily - Continue Lasix 20 mg daily - Continue spironolactone 50 mg daily - Take pain medications over the counter and recommended to not take Tylenol 500, not more than 3doses - Midodrine 10 mg QID if patient has low blood pressures and becomes symptomatic - Mother endorsed that they are looking for hospice options - Odered CMP and recommended to follow up in 3weeks (2) Low back pain: Status: Acute Qualifiers: Chronicity: chronic Back pain laterality: unspecified Sciatica presence: unspecified whether sciatica present Qualified Code(s): M54.50 - Low back pain, unspecified; G89.29 - Other chronic pain Assessment & Plan: Chronic back pain since 2018 s/p work injury. Previous MRI showed minimal disc herniation in 2018. Was following neurosurgeon in [place]. Unclear history. Now nonambulatory, in wheelchair. Plan: - Continue methocarbamol 30 mg HS - Over the counter medications as needed for pain Office Procedures [facility] Level of Care Nursing/Assessment Patient Status: Established Patient Nursing Assessment/Reassessment: Medication Reconciliation and Update PMH in EMR Coordination of Care: Complex Care and Chronic Disease 1-5, Education Complex Pt/Fam, Consent,records obtained, informed consent, Results/Orders obtained and Staff clarify orders Established Patient Charge Established Patient Point Assignment: 80 Telehealth Telemed Phone/Video with patient at home & Dr,[place] APPLICATION ADMINISTRATOR: Yes
== END 2025-01-02 14:30 | disposition home or self-care (01) ==
LOC: HODAHC 13:49
PROVIDERS: PCP Student in an Organized Health Care Education/Training Program; Referring Provider Student in an Organized Health Care Education/Training Program; Supervising Provider Internal Medicine
DX: K70.30 Alcoholic cirrhosis of liver without ascites (principal); M54.50 Low back pain, unspecified; G89.29 Other chronic pain
CPT/HCPCS: 99212; G0463

== ENCOUNTER 2025-01-21 22:44 | Emergency (ER) | payer MEDICAID, SELFPAY ==
[2025-01-21 22:50] VITALS: BMI 23.8
--- NOTE | 2025-01-21 22:54 | EDNOTE_ITS ---
ED CPR RME/HPI General Chief Complaint: Cardiac Arrest/CPR Stated Complaint: CODE BLUE Arrival date/time: 01/21/25 22:44 RME / HPI RME / HPI narrative: Dr. Olivera?s Main ED Evaluation: 54yo female with a history of cirrhotic liver disease pending liver transplant, last seen 20 minutes prior to be found pulseless, apneic, and unresponsive. I-Gel airway placed and I/O established in the field. 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 Initial rhythm asystole with subseq Vtach, unresponsive to 2 counter shocls. undergoing CPR on arrival to the ED. Related Data Home Medications ?Medication ?Instructions ?Recorded ?Confirmed spironolactone 50 mg tablet 50 mg PO DAILY 10/11/24 midodrine 10 mg tablet 10 mg PO Q8H 11/14/24 Previous Rx's ?Medication ?Instructions ?Recorded blood sugar diagnostic (Accu-Chek #100 ea 07/23/24 Idania Plus test strips) lancets 28 gauge (Acti-Petar #100 ea 07/23/24 Lancets) blood-glucose meter (FreeStyle #1 ea 08/10/24 [place] Lite kit) mirtazapine 30 mg tablet (Remeron) 30 mg PO QHS 1 meredith h #30 tabs 09/10/24 pantoprazole 40 mg tablet,delayed 40 mg PO QDAY 1 meredith h #30 tabs 09/10/24 release blood sugar diagnostic (Freestyle #100 ea 10/01/24 InsuLinx Test Strips) lancets 28 gauge (FreeStyle #100 ea 10/01/24 Lancets) methocarbamol 750 mg tablet 750 mg PO BID 1 month #60 tabs 10/01/24 rifaximin 550 mg tablet (Xifaxan) 550 mg PO BID 1 meredith h #60 tabs 10/01/24 lactulose 10 gram/15 mL oral 20 g (30 mL) PO TID #1,20 0 mL 11/21/24 solution furosemide 20 mg tablet 20 mg PO QAM #60 tabs hydrocodone 5 mg-acetaminophen 325 1 tab PO Q6H PRN pa in 3 days #12 12/23/24 mg tablet tabs Allergies Allergy/AdvReac Type Severity Reaction Status Date / Time latex Allergy Severe Hives Verified 01/21/25 22:57 Review of Systems Review of Systems ROS Unobtainable: unobtainable due to medical condition ED Exam Narrative Physical exam: GEN. APPEARANCE: Patient was in cardiac-respiratory arrest with CPR in progress. VITALS: Unobtainable. HEENT: Normocephalic, atraumatic. Pupils fixed and dilated. NECK: Supple, + JVD. CHEST: No deformity and no crepitus. No audible heart tones. ABDOMEN: Soft, flat. GENITALIA: Not examined. RECTAL EXAM: Not done. EXTREMITIES: Flaccid. No edema. SKIN: Cool and dry, no rashes noted. Jaundiced with scleral icterus. NEURO: GCS is 3. Course Course Course Narrative: 2241: Patient seen by me immediately upon arrival. See code sheet for medication details. 2246: Patient intubated. See procedure note. 2252: Patient . Quality Measures none Orders Category Date Time Status Intubation NOW Care 01/21/25 23:04 Active PROCEDURES: Intubation Time out performed: No (performed emergently) Laryngoscope: fiber optic video scope Assist Device Used: fiber optic device ET Tube Size: 7.5 ET Tube Uncuffed: No Tube Secured Depth (cm): 24 Tube Secured Location: teeth Tube Placement Confirmation: visualized tube passing through cords, equal breath sounds bilaterally, no breath sounds over epigastrium and confirmation by capnometry Patient Tolerated Procedure: well and no complications Cardiac Arrest / CPR MDM Narrative MDM Narrative:: Scribe Attestation: 01/21/25 - Kaley Slade am scribing for and in the presence of Dr. Olivera. 54yo female with a history of cirrhotic liver disease pending liver transplant, last seen 20 minutes prior to be found pulseless, apneic, and unresponsive. I- Gel airway placed and I/O established in the field. Please see PE findings. Accu-Check demonstrated hypoglycemia, dextrose administered. Patient underwent ACLS measures and I-Gel converted to endotracheal tube (see procedure note). Patient remained pulseless and in PEA despite aggressive measures, including additional administration of epinephrine and sodium bicarbonate. Further attempts at defibrillation were made without success. Code was called at 2253 and family notified. Dx: cardiopulmonary arrest Patient data External records reviewed:: [facility] previous records (Per chart review, patient was admitted here on 12/19/24 for encephalopathy.) and EMS form Clinical information provided by:: EMS Social determinants that could affect healthcare access:: none Patient has the following chronic illnesses:: decompensated end stage liver disease secondary to alcohol use disorder, ascites, esophageal varices s/p banding, GI bleed, DM How is presenting disease/condition affected by chronic disease/condition?: exacerbated by Evaluation data The following diagnostics were reviewed and interpreted by me:: other (specify) (none) Lab and/or radiology exams considered but not ordered:: none Interpretation Summary: none Medications / Prescriptions Medications or Prescriptions considered but not ordered:: none Medication administrations:: See code sheet for medication details. Consultations Consultation(s) initiated? (list below): No Diagnosis Cardiac arrest differential diagnosis: acute respiratory failure, cardiac arrest and sudden cardiac Most likely diagnosis given after review of the tests above:: cardiopulmonary arrest Admission Indicated Admission indicated?: not indicated Admission Request Was there a request for admission?: No Disposition Plan Disposition Plan: other (specify) (Patient .) Discharge Plan Plan Patient Disposition: Problem List Clinical Impression: Cardiopulmonary arrest Patient/Caregiver Discharge Instructions Print Language: Khmer
--- NOTE | 2025-01-21 23:09 | PC.NURSE ---
PT [facility] FROM HOME FOR CARDIAC ARREST PER EMS. PER EMS PATIENT WAS DOWN FOR APPROX 2210 AND CPR WAS STARTED ON THE FIELD PRIOR TO ARRIVAL. PATIENT WAS GIVEN THREE DOSES OF EPINEPHRINE, ONE CALCIUM, ONE AMIODARONE 300MG, ONE BICARBONATE. PATIENT WAS PLACED IN ROOM 3 CONTINUING CPR. SEE CODE SHEET FOR MORE DETAILS.
--- NOTE | 2025-01-21 23:50 | PC.NURSE ---
[facility] . PER DISPATCH [facility].
--- NOTE | 2025-01-22 09:26 | PC.NURSE ---
This teletypewriter installer open chart to confirm TOD/date with [employer] spoke with Tonia CERON.
== END 2025-01-22 01:02 | disposition expired ==
LOC: SERX 23:23
PROVIDERS: Emergency Provider Emergency Medicine
DX: I47.20 Ventricular tachycardia, unspecified (principal); I46.8 Cardiac arrest due to other underlying condition; E11.649 Type 2 diabetes mellitus with hypoglycemia without coma; Z79.4 Long term (current) use of insulin
CPT/HCPCS: 31500; 92950; 99291; J0168